=== PATIENT | male | born 1955 | race Caucasian/White ===

== ENCOUNTER 2019-12-16 06:00 | Outpatient (RCR) | payer MEDICARE, OTHER, SELFPAY | END 2019-12-20 23:59 | disposition home or self-care (01) | LOC: MR3 06:00 | PROVIDERS: Family Provider Nurse Practitioner Family; PCP Nurse Practitioner Family; Visit Provider Physical Medicine & Rehabilitation | DX: I69.320 Aphasia following cerebral infarction (principal); I69.391 Dysphagia following cerebral infarction; R13.10 Dysphagia, unspecified; I69.398 Other sequelae of cerebral infarction; R32 Unspecified urinary incontinence; R15.9 Full incontinence of feces; R27.8 Other lack of coordination; R26.89 Other abnormalities of gait and mobility | CPT/HCPCS: 92523; 92610; 97110; 97116; 97161 ==

== ENCOUNTER 2019-12-21 06:00 | Outpatient (RCR) | payer MEDICARE, OTHER, SELFPAY | END 2020-01-18 23:59 | disposition home or self-care (01) | LOC: MR3 06:00 | PROVIDERS: Family Provider Nurse Practitioner Family; PCP Nurse Practitioner Family; Visit Provider Physical Medicine & Rehabilitation | DX: R26.89 Other abnormalities of gait and mobility (principal); I69.320 Aphasia following cerebral infarction | CPT/HCPCS: 92507; 92526; 96105; 97110; 97116; 97166; 97530; 97535 ==

== ENCOUNTER 2019-12-25 06:27 | Emergency (ER) | payer MEDICARE, OTHER, SELFPAY ==
[2019-12-25 06:27] VITALS: BP 128/94; PULSE 76; RESP 18; O2SAT 92; BMI 42.5
[2019-12-25 06:30] VITALS: BP 111/80; PULSE 81; RESP 18; TEMP 36.9; O2SAT 91
--- NOTE | 2019-12-25 06:36 | W.ED.CHESTPA ---
HPI - Chest Pain General: Chief Complaint: Chest Pain Stated Complaint: Chest Pain Time Seen by Provider: 12/25/19 06:36 History of Present Illness: HPI narrative: 64-year-old male comes in complaining of chest pain that began this morning. Patient denies having chest pain prior to this morning. He does have a known history of atrial fibrillation last month in early November he had a stroke and has still has some difficulty with speech. He is not having any chest pain at this time. He is on Coumadin for his atrial fibrillation his has a lab result of an INR of 1.4 within the last day or 2 that advised to give him 10 mg of Coumadin after that he has not had it rechecked since then. He denies any difficulty breathing at this time. His diabetic has history of hypertension hyperlipidemia as well as his atrial fibrillation. Associated symptoms: Deny abdominal pain, dyspnea, fever(s), nausea or vomiting Review of Systems Const: Denies: fever, chills, body aches, change in appetite, fatigue or malaise ENMT: Denies: throat pain, ear pain, nasal discharge or nasal congestion Card: Denies: chest pain, edema, shortness of breath on exertion or shortness of breath when lying down Resp: Denies: shortness of breath, productive cough or non-productive cough GI: Denies: abdominal pain, nausea, vomiting, vomiting blood, coffee grounds in vomit, diarrhea, constipation, bloating, blood in stool or black tarry stool : Denies: flank pain, painful urination, urinary frequency or urinary urgency Skin/Breast: Denies: rash or itching PFSH ED PFSH: Statuses (acute, chronic, etc) shown below reflect problem list status as previously entered and may not be historically accurate Family History (Updated 12/03/19 @ 08:27 by Venita Quinones RN) Mother Stroke Father Myocardial infarction Other CAD (coronary artery disease) Chronic kidney disease (CKD) Diabetes Hypertension Social History (Updated 12/03/19 @ 08:27 by Venita Quinones RN) Smoking and tobacco status: never smoked Alcohol intake: unknown Marital status: Physical Exam Const: COMMON NORMALS: no apparent distress GENERAL APPEARANCE: cooperative and comfortable ORIENTATION/CONSCIOUSNESS: Yes awake, Yes oriented to person, Yes oriented to place and Yes oriented to time HENMT: COMMON NORMALS: normocephalic, head/scalp atraumatic, hearing grossly normal bilaterally, external ears normal, EAC's normal, TM's normal bilaterally, nasal mucous membranes and turbinates normal, moist oral mucous membranes and oropharynx normal HEAD & SCALP: normocephalic and atraumatic NOSE: nasal mucous membranes and turbinates normal EXTERNAL EAR: Yes external ears normal EXTERNAL AUDITORY CANAL: EAC's normal TYMPANIC MEMBRANE: TM's normal bilaterally Eye: COMMON NORMALS: PERRL, EOMs intact bilaterally, conjunctivae normal and no scleral icterus CONJUNCTIVA: Yes conjunctivae normal PUPIL: Yes PERRL Neck/C-Spine: COMMON NORMALS: full ROM, no lymphadenopathy, supple and no JVD Lymph: LYMPHATIC: no lymphadenopathy noted and no lymphedema noted Resp: COMMON NORMALS: normal respiratory effort, no retractions, no use of accessory muscles and clear to auscultation bilaterally AUSCULTATION: clear to auscultation bilaterally Cardio: COMMON NORMALS: no JVD, regular rate, regular rhythm and no murmurs RATE: regular rate RHYTHM: regular rhythm GI: COMMON NORMALS: soft to palpation and no hepatosplenomegaly AUSCULTATION: Yes normoactive bowel sounds PALPATION: Yes soft, No tender, No guarding and Yes no hepatosplenomegaly Extremity: COMMON NORMALS: normal to inspection, normal capillary refill, no clubbing, cyanosis or edema, no calf tenderness and no pedal edema Neuro: SENSORIUM/ORIENTATION: Yes oriented to person, Yes oriented to place and Yes oriented to time Skin: COMMON NORMALS: no rashes or lesions noted GENERAL SKIN EXAM: no rashes or lesions noted Course ED course: Delta troponin is negative. His rhythm has been A. fib free particularly. Bradycardic while he has been here. He states the episode of chest pain only lasted a few minutes resolved after he went to the bathroom has not had any further symptoms. He does this fair amount of risk factors and his heart score is 4-5 I recommend that he be admitted for observation and get a stress test tomorrow. 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 He did have medication adjustments yesterday and his carvedilol was cut down to 6.25 twice daily. I do not recommend he make any changes in his medications at this point however he does need to continue to monitor his Coumadin and should can continue taking all of his other medications if he has worsening chest pain or recurrence return. Offered again observation for chest pain rule out and stress testing both him and the declined and prefer to go to [place]. Vital Signs: Vital signs: Vital Signs Temperature 98.4 F 12/25/19 06:30 Pulse Rate 90 12/25/19 10:17 Respiratory Rate 16 12/25/19 10:17 Blood Pressure 147/103 12/25/19 10:17 Pulse Oximetry 94 12/25/19 10:17 MDM - Chest Pain Lab Data: Labs: Lab Results 12/25/19 12/25/19 12/25/19 Range/Units 06:55 06:55 06:55 WBC 9.5 (4.0-10.0) 10^3/ uL RBC 6.85 H (4.1-5.3) 10^6/u L Hgb 12.1 (11.7-16.6) g/dL Hct 40.7 L (42.0-52.0) % MCV 59.4 L (80-94) fL MCH 17.7 L (28.0-34.0) pg MCHC 29.7 L (30.0-36.0) g/dL RDW 19.5 H (12.1-15.1) % Plt Count 222 (130-400) 10^3/c mm MPV 9.9 (7.4-10.4) fL Neut % (Auto) 77.5 % Lymph % (Auto) 12.3 % [place] % (Auto) 6.8 % Eos % (Auto) 2.1 % Baso % (Auto) 0.7 % Neut # (Auto) 7.4 (1.8-7.7) 10^3/u L Lymph # (Auto) 1.2 (0.8-4.8) 10^3/u L [place]lee # (Auto) 0.7 (0.2-0.9) 10^3/u L Eos # (Auto) 0.2 (0.0-0.8) 10^3/u L Baso # (Auto) 0.1 (0.0-0.1) 10^3/u L Nucleated RBC % (a uto) 0 % Nucleated RBCs # 0.0 /100WBC PT 16.90 H (10.5-13.3) SECO NDS INR 1.33 H (0.8-1.2) APTT 26.4 (23.9-36.7) SECO NDS Sodium 138 (136-145) mmol/L Potassium 4.3 (3.5-5.1) mmol/L Chloride 104 (98-107) mmol/L Carbon Dioxide 24 (22-29) mmol/L Anion Gap 14.3 (5-19) BUN 33 H (8-23) mg/dL Creatinine 0.9 (0.7-1.2) mg/dL GFR Calculation 84.4 L (90-130) mL/min Glucose 139 H (65-115) mg/dL Calcium 9.9 (8.5-10.5) mg/dL Total Bilirubin 0.4 (0.15-1.2) mg/dL AST 20 (0-40) U/L ALT 23 (0-41) U/L Alkaline Phosphata se 70 (40-130) IU/L Troponin T Baselin e (0-15) ng/mL Troponin T 120 Min [place] (0-15) ng/mL Delta Troponin T (0-10) ABS# Total Protein 6.2 L (6.6-8.7) g/dL Albumin 3.4 L (3.5-5.2) g/dL Globulin 2.8 (1.3-4.6) g/dL 12/25/19 12/25/19 Range/Units 06:55 08:44 WBC (4.0-10.0) 10^3/ uL RBC (4.1-5.3) 10^6/u L Hgb (11.7-16.6) g/dL Hct (42.0-52.0) % MCV (80-94) fL MCH (28.0-34.0) pg MCHC (30.0-36.0) g/dL RDW (12.1-15.1) % Plt Count (130-400) 10^3/c mm MPV (7.4-10.4) fL Neut % (Auto) % Lymph % (Auto) % [place] % (Auto) % Eos % (Auto) % Baso % (Auto) % Neut # (Auto) (1.8-7.7) 10^3/u L Lymph # (Auto) (0.8-4.8) 10^3/u L [place] # (Auto) (0.2-0.9) 10^3/u L Eos # (Auto) (0.0-0.8) 10^3/u L Baso # (Auto) (0.0-0.1) 10^3/u L Nucleated RBC % (a uto) % Nucleated RBCs # /100WBC PT (10.5-13.3) SECO NDS INR (0.8-1.2) APTT (23.9-36.7) SECO NDS Sodium (136-145) mmol/L Potassium (3.5-5.1) mmol/L Chloride (98-107) mmol/L Carbon Dioxide (22-29) mmol/L Anion Gap (5-19) BUN (8-23) mg/dL Creatinine (0.7-1.2) mg/dL GFR Calculation (90-130) mL/min Glucose (65-115) mg/dL Calcium (8.5-10.5) mg/dL Total Bilirubin (0.15-1.2) mg/dL AST (0-40) U/L ALT (0-41) U/L Alkaline Phosphata se (40-130) IU/L Troponin T Baselin e 25 H (0-15) ng/mL Troponin T 120 Min [place] 22.36 H (0-15) ng/mL Delta Troponin T -2.64 L (0-10) ABS# Total Protein (6.6-8.7) g/dL Albumin (3.5-5.2) g/dL Globulin (1.3-4.6) g/dL Discharge Plan Discharge Patient Disposition: Home, Self-Care Clinical Impression: Atypical chest pain, Atrial fibrillation, Diabetes mellitus, Congestive heart failure Condition: Stable Prescriptions: No Action tamsulosin 0.4 mg capsule 0.4 mg PO DAILY RF: 0 citalopram [Celexa] 10 mg tablet 10 mg PO DAILY RF: 0 leflunomide 20 mg tablet 20 mg PO DAILY RF: 0 furosemide 40 mg tablet 40 mg PO QAM RF: 0 Lantus U-100 Insulin 100 unit/mL solution See Rx Instructions .ROUTE .COMPLEX RF: 0 insulin lispro [Humalog U-100 Insulin] 100 unit/mL solution See Rx Instructions .ROUTE .COMPLEX RF: 0 nitroglycerin [Nitrostat] 0.4 mg tablet, sublingual 0.4 mg SUBLINGUAL Q5M PRN (Reason: Chest Pain) RF: 0 carvedilol 12.5 mg Tablet 12.5 mg PO BID RF: 0 ondansetron HCl [Zofran] 4 mg Tablet 4 mg PO Q6H PRN (Reason: Nausea) RF: 0 prednisone 20 mg Tablet 10 mg PO DAILY RF: 0 diltiazem HCl 240 mg Capsule,Extended Release 24 Hr 240 mg PO DAILY RF: 0 amoxicillin 500 mg Tablet 500 mg PO BID RF: 0 warfarin 5 mg Tablet See Rx Instructions .ROUTE .COMPLEX RF: 0 cholecalciferol (vitamin D3) [Vitamin D3] 25 mcg (1,000 unit) Capsule 1,000 unit PO DAILY RF: 0 Florastor 250 mg Capsule 500 mg PO BID RF: 0 potassium chloride 20 mEq Tablet Extended Release 40 meq PO DAILY RF: 0 coenzyme Q10 125 mg Capsule 120 mg PO DAILY RF: 0 atorvastatin 40 mg PO QPM RF: 0 Ultram 50 mg Tablet 50 mg PO Q4H PRN (Reason: Pain) RF: 0 Protonix 40 mg Tablet,Delayed Release (Dr/Ec) 40 mg PO DAILY RF: 0 Super B-50 Complex Capsule 1 cap PO DAILY RF: 0 Referrals: Faustina Gonzalez TRUSS DRIVER HELPER [Primary Care Provider] - Discharge Diet: Usual diet Discharge Activity: Limit activity as instructed Activity Restrictions/Additional Instructions: Follow-up with your lumber press operator as you indicated you have an appointment tomorrow. 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
--- NOTE | 2019-12-25 06:40 | ECG_ITS ---
Measurements Intervals Man Rate: 85 P: MS: 0 QRS: -22 QRSD: 103 T: 168 QT: 380 QTc: 453 ATRIAL FIBRILLATION BORDERLINE LEFT AXIS DEVIATION [QRS AXIS < -20] VOLTAGE CRITERIA FOR LVH [MEETS CRITERIA IN ONE OF: R(aVL), S(V1), R(V5), R(V5 (V5/V6)+S(V1)] ST DEVIATION AND MODERATE T-WAVE ABNORMALITY, CONSIDER LATERAL ISCHEMIA [-0.1+ mV mV T WAVE IN I/aVL/V5/V6] Compared to ECG 09/05/2019 08:37:38 Left ventricular hypertrophy now present Possible ischemia now present T-wave abnormality still present Electronically Signed On 12-25-2019 9:29:24 CHROME TANNING DRUM OPERATOR by Dirk Mondragon M.D. [id number] rizzo
--- NOTE | 2019-12-25 06:45 | PC.NURSE ---
Introduced self to patient and initiated vital signs. Pt is A&O x 4 and agreeable. Pt states that the reason for the ER visit today is due to chest pain which is now resolved. Pt has history of recent stroke and now responds slowly to questions. Reassured patient of needs and will continue to monitor.
[2019-12-25 07:11] LABS: Basophils # 0.1 10^3/uL (0.0-0.1); Basophils % 0.7 %; Eosinophils # 0.2 10^3/uL (0.0-0.8); Eosinophils % 2.1 %; Hematocrit 40.7 % (42.0-52.0); Hemoglobin 12.1 g/dL (11.7-16.6); Lymphocytes # 1.2 10^3/uL (0.8-4.8); Lymphocytes % 12.3 %; Mean Corpuscular HGB Conc 29.7 g/dL (30.0-36.0); Mean Corpuscular Hemoglobin 17.7 pg (28.0-34.0); Mean Corpuscular Volume 59.4 fL (80-94); Mean Platelet Volume 9.9 fL (7.4-10.4); Monocytes # 0.7 10^3/uL (0.2-0.9); Monocytes % 6.8 %; Neutrophils # 7.4 10^3/uL (1.8-7.7); Neutrophils % 77.5 %; Nucleated Red Blood Cells % 0 %; Platelet Count 222 10^3/cmm (130-400); Positive M 1; Red Blood Count 6.85 10^6/uL (4.1-5.3); Red Cell Distribution Width 19.5 % (12.1-15.1); White Blood Count 9.5 10^3/uL (4.0-10.0)
[2019-12-25 07:21] LABS: INR 1.33 (0.8-1.2)
[2019-12-25 07:22] LABS: Partial Thromboplastin Time 26.4 SECONDS (23.9-36.7)
[2019-12-25 07:26] LABS: Alanine Aminotransferase 23 U/L (0-41); Albumin Level 3.4 g/dL (3.5-5.2); Alkaline Phosphatase 70 IU/L (40-130); Anion Gap 14.3 (5-19); Aspartate Amino Transferase 20 U/L (0-40); Blood Urea Nitrogen 33 mg/dL (8-23); Calcium 9.9 mg/dL (8.5-10.5); Carbon Dioxide 24 mmol/L (22-29); Chloride 104 mmol/L (98-107); Globulin 2.8 g/dL (1.3-4.6); Glomerular Filtration Rate 84.4 mL/min (90-130); Potassium 4.3 mmol/L (3.5-5.1); Sodium 138 mmol/L (136-145); Total Bilirubin 0.4 mg/dL (0.15-1.2); Total Protein 6.2 g/dL (6.6-8.7)
[2019-12-25 07:27] LABS: Troponin(5th) Baseline 25 ng/mL (0-15)
[2019-12-25 07:35] LABS: Slide Review Slide Review Perform
[2019-12-25 07:45] VITALS: BP 121/49; PULSE 75; RESP 16; O2SAT 92
[2019-12-25 08:01] VITALS: BP 127/58; PULSE 79; RESP 16; O2SAT 93
--- NOTE | 2019-12-25 08:40 | ECG_ITS ---
Measurements Intervals [place] Rate: 70 P: NE: 0 QRS: -24 QRSD: 101 T: 180 QT: 382 QTc: 413 ATRIAL FIBRILLATION BORDERLINE LEFT AXIS DEVIATION [QRS AXIS < -20] MINIMAL VOLTAGE CRITERIA FOR LVH, CONSIDER NORMAL VARIANT [MEETS CRITERIA IN ONE OF: R(aVL), S(V1), R(V5), R(V5/V6)+S(V1)] ST DEVIATION AND MODERATE T-WAVE ABNORMALITY, CONSIDER LATERAL ISCHEMIA [-0.1+ mV T WAVE IN I/aVL/V5/V6] Compared to ECG 09/05/2019 08:37:38 Possible ischemia now present T-wave abnormality still present Electronically Signed On 12-25-2019 9:32:31 PATHOLOGY SECRETARY/TRANSCRIPTIONIST by Dirk Mondragon M.D. [id number]
[2019-12-25 09:16] LABS: Troponin 5 2HR 22.36 ng/mL (0-15)
[2019-12-25 09:19] LABS: Glucose 139 mg/dL (65-115)
[2019-12-25 09:19] LABS: Troponin 5 2HR Delta -2.64 ABS# (0-10)
[2019-12-25 10:17] VITALS: BP 147/103; PULSE 90; RESP 16; O2SAT 94
== END 2019-12-25 10:17 | disposition home or self-care (01) ==
PROVIDERS: Emergency Provider Family Medicine; Family Provider Nurse Practitioner Family; PCP Nurse Practitioner Family
DX: R07.89 Other chest pain (principal); I48.91 Unspecified atrial fibrillation; E11.9 Type 2 diabetes mellitus without complications; I11.0 Hypertensive heart disease with heart failure; I50.9 Heart failure, unspecified; E78.5 Hyperlipidemia, unspecified; I69.328 Other speech and language deficits following cerebral infarction; Z79.01 Long term (current) use of anticoagulants; Z79.4 Long term (current) use of insulin; Z82.3 Family history of stroke; Z82.49 Family history of ischemic heart disease and other diseases of the circulatory system
CPT/HCPCS: 36415; 80053; 84484; 85025; 85610; 85730; 93005; 99283

== ENCOUNTER 2020-01-06 21:57 | Emergency (ER) | payer MEDICARE, OTHER, SELFPAY ==
[2020-01-06 22:01] VITALS: BP 126/82; PULSE 76; RESP 17; TEMP 36.4; O2SAT 93; BMI 28.8
--- NOTE | 2020-01-06 22:25 | ED_ITS ---
Entered by Nikki May, acting as scribe for Caryn Nelson MD, [facility] [place] 06, [place] 21:57 Documented by User: Caryn Nelson MD, MSM 01/07/20 00:23 HPI - Dizziness General: Chief Complaint: Dizziness Stated Complaint: DIZZY/ N/V Time Seen by Provider: 01/06/20 22:25 Source: patient and RN notes reviewed Mode of arrival: EMS Limitations: no limitations History of Present Illness: HPI Narrative: 64 yo male presents to ED with complaints of dizziness. The patient spouse states he had a stroke December 13 and became very dizzy tonight. She said he hasn't felt well for last couple of days and shows the patient has an infection. He had a spell the other night but became bad tonight . He had a PCP appointment today for a follow up to his stroke. He did have speech and occupational therapies today. The patient spouse states he has not complained of a headache. The spouse states she has been dizzy for a couple of days as well and said they have both had sinus issues. MD elicited complaint: dizziness and difficulty walking (due to recent stroke) Pertinent past history: stroke Onset (ago): hour(s) (3 (1929)) Timing: sudden onset Severity: severe Description: room spinning Context: change in medication (recent antibiotics), change in body position, recent illness and at rest History of similar symptoms: Yes Exacerbating factors: movement/ambulation, change in body position, exertion and keeping eyes open Relieving factors: remaining still, rest and lying down Associated symptoms: Reports chest pain; Denies chills, headache(s), nausea, palpitations or vomiting Associated neuro symptoms: Deny numbness in extremities Review of Systems General: Reports: 10 or more systems reviewed and unremarkable except in HPI and below Const: Denies: fever, chills or body aches Eyes: Reports: blind spots; Denies: change in vision or blurry vision ENMT: Denies: throat pain, enlarged tonsils, painful swallowing, hoarseness, mouth pain or swelling of lips/tongue Card: Reports: chest pain; Denies: palpitations, irregular heart rhythm, edema or swelling of feet/ankles Resp: Denies: shortness of breath, productive cough or non-productive cough GI: Denies: abdominal pain, nausea or vomiting : Denies: flank pain, painful urination, urinary frequency, urinary urgency or urinary hesitancy Musc: Denies: neck pain, back pain or extremity swelling Skin/Breast: Denies: rash, itching or redness Neuro: Reports: dizziness; Denies: headache, numbness in extremities or weakness in extremities Endo: Denies: excessive urination, excessive thirst or tired all the time PFSH ED PFSH: Family History (Updated 12/03/19 @ 08:27 by Venita Quinones, ANTWON) Mother Stroke Father Myocardial infarction Other CAD (coronary artery disease) Chronic kidney disease (CKD) Diabetes Hypertension Social History (Updated 12/03/19 @ 08:27 by Venita Quinones RN) Smoking and tobacco status: never smoked Alcohol intake: unknown Marital status: Physical Exam Const: COMMON NORMALS: no apparent distress, average body habitus, oriented x3, no limitations, healthy appearing, alert and well nourished HENMT: COMMON NORMALS: normocephalic, head/scalp atraumatic and moist oral mucous membranes HEAD & SCALP: normocephalic and atraumatic Eye: COMMON NORMALS: PERRL, EOMs intact bilaterally, conjunctivae normal and no scleral icterus CONJUNCTIVA: Yes conjunctivae normal PUPIL: Yes PERRL Neck/C-Spine: COMMON NORMALS: full ROM, supple, no meningeal signs, no JVD and no carotid bruits Chest: COMMONS NORMALS: inspection of chest normal and palpation of chest normal Resp: COMMON NORMALS: normal respiratory effort, no retractions, no use of accessory muscles, clear to auscultation bilaterally and percussion normal AU SCULTATION: clear to auscultation bilaterally PERCUSSION: percussion normal Cardio: COMMON NORMALS: no JVD, regular rate, regular rhythm, S1 normal heart sound, S2 normal heart sound, no gallops, no clicks, no murmurs, no rub and peripheral pulses 2+ throughout RATE: regular rate RHYTHM: regular rhythm HEART SOUNDS: S1 normal and S2 normal PERIPHERAL PULSES: pulses 2+ throughout GI: COMMON NORMALS: normal to inspection, nondistended, normoactive bowel sounds, soft to palpation, non-tender, no hepatosplenomegaly, no masses and no bruits PALPATION: Yes soft and Yes no hepatosplenomegaly : COMMON NORMALS: Yes no CVA tenderness BLADDER/KIDNEY EXAM: Yes no CVA tenderness Back/Pelvis: COMMON NORMALS: no CVA tenderness Extremity: COMMON NORMALS: normal to inspection, full ROM, normal capillary refill, no calf tenderness and no pedal edema Neuro: COMMON NORMALS: oriented x3 SENSORIUM/ORIENTATION: Yes alert MENINGEAL SIGNS: Yes no meningeal signs Skin: COMMON NORMALS: no rashes or lesions noted, no wounds, skin turgor normal, no jaundice, no petechiae and no mottling GENERAL SKIN EXAM: no rashes or lesions noted and turgor normal Course Vital Signs: Vital signs: Vital Signs Temperature 97.5 F L 01/06/20 22:01 Pulse Rate 56 L 01/07/20 02:09 Respiratory Rate 16 01/07/20 02:09 Blood Pressure 126/82 01/06/20 22:01 Pulse Oximetry 99 01/07/20 02:09 MDM - Dizziness Lab Data: Labs: Lab Results 01/06/20 01/06/20 01/06/20 Range/Units 23:26 23:26 23:49 WBC 10.4 H (4.0-10.0) 10^3/ uL RBC 6.98 H (4.1-5.3) 10^6/u L Hgb 12.2 (11.7-16.6) g/dL Hct 41.5 L (42.0-52.0) % MCV 59.5 L (80-94) fL MCH 17.5 L (28.0-34.0) pg MCHC 29.4 L (30.0-36.0) g/dL RDW 20.0 H (12.1-15.1) % Plt Count 272 (130-400) 10^3/c mm MPV 9.3 (7.4-10.4) fL Neut % (Auto) 77.3 % Lymph % (Auto) 11.7 % [place] % (Auto) 7.4 % Eos % (Auto) 1.3 % Baso % (Auto) 0.7 % Neut # (Auto) 8.0 H (1.8-7.7) 10^3/u L Lymph # (Auto) 1.2 (0.8-4.8) 10^3/u L [place] # (Auto) 0.8 (0.2-0.9) 10^3/u L Eos # (Auto) 0.1 (0.0-0.8) 10^3/u L Baso # (Auto) 0.1 (0.0-0.1) 10^3/u L Nucleated RBC % (a uto) 0 % Nucleated RBCs # 0.0 /100WBC Sodium Potassium Chloride Carbon Dioxide Anion Gap BUN Creatinine GFR Calculation Glucose Calcium Total Bilirubin AST ALT Alkaline Phosphata se Total Protein Albumin Globulin Urine Color Yellow (Yellow) Urine Appearance Hazy A (CLEAR) Urine pH 5 (5-7) Ur Specific Gravit y 1.020 (1.005-1.030) Urine Protein Neg (Negative) Urine Glucose (UA) Norm (Normal) Urine Ketones Negative (Negative) Urine Occult Blood Neg (Negative) Urine Nitrate Negative (Negative) Urine Bilirubin Neg (NEGATIVE) Urine Urobilinogen Norm (Negative) mg/dL Ur Leukocyte Michelle ase Trace H (Negative) Urine RBC 0-4 H (0-2) /hpf Urine WBC 15-25 H (0-5) /hpf Ur Squamous Epith Cells 0-4 H (0-5) Urine Bacteria 4+ H (NONE) Urine Opiates Scre en Negative (Negative) ng/mL Ur Barbiturates Sc reen Negative (Negative) ng/mL Ur Phencyclidine S crn Negative (Negative) ng/mL Ur Amphetamines Sc reen Negative (Negative) ng/mL U Benzodiazepines Scrn Negative (Negative) ng/mL Urine Cocaine Scre en Negative (Negative) ng/mL U Marijuana (THC) Screen Negative (Negative) ng/mL 01/07/ Range/Units 01:33 WBC (4.0-10.0) 10^3/ uL RBC (4.1-5.3) 10^6/u L Hgb (11.7-16.6) g/dL Hct (42.0-52.0) % MCV (80-94) fL MCH (28.0-34.0) pg MCHC (30.0-36.0) g/dL RDW (12.1-15.1) % Plt Count (130-400) 10^3/c mm MPV (7.4-10.4) fL Neut % (Auto) % Lymph % (Auto) % [place] % (Auto) % Eos % (Auto) % Baso % (Auto) % Neut # (Auto) (1.8-7.7) 10^3/u L Lymph # (Auto) (0.8-4.8) 10^3/u L [place] # (Auto) (0.2-0.9) 10^3/u L Eos # (Auto) (0.0-0.8) 10^3/u L Baso # (Auto) (0.0-0.1) 10^3/u L Nucleated RBC % (a uto) % Nucleated RBCs # /100WBC Sodium Cancelled Potassium Cancelled Chloride Cancelled Carbon Dioxide Cancelled Anion Gap Cancelled BUN Cancelled Creatinine Cancelled GFR Calculation Cancelled Glucose Cancelled Calcium Cancelled Total Bilirubin Cancelled AST Cancelled ALT Cancelled Alkaline Phosphata se Cancelled Total Protein Cancelled Albumin Cancelled Globulin Cancelled Urine Color (Yellow) Urine Appearance (CLEAR) Urine pH (5-7) Ur Specific Gravit y (1.005-1.030) Urine Protein (Negative) Urine Glucose (UA) (Normal) Urine Ketones (Negative) Urine Occult Blood (Negative) Urine Nitrate (Negative) Urine Bilirubin (NEGATIVE) Urine Urobilinogen (Negative) mg/dL Ur Leukocyte Michelle ase (Negative) Urine RBC (0-2) /hpf Urine WBC (0-5) /hpf Ur Squamous Epith Cells (0-5) Urine Bacteria (NONE) Urine Opiates Scre en (Negative) ng/mL Ur Barbiturates Sc reen (Negative) ng/mL Ur Phencyclidine S crn (Negative) ng/mL Ur Amphetamines Sc reen (Negative) ng/mL U Benzodiazepines Scrn (Negative) ng/mL Urine Cocaine Scre en (Negative) ng/mL U Marijuana (THC) Screen (Negative) ng/mL EKG Data^: EKG 1: Attestation: I personally reviewed and interpreted this EKG as follows: EKG interpretation date: 01/06/20 EKG interpretation time: 23:05 Interpretation: Atrial fibrillation. Left ventricular hypertrophy. Heart rate 77. Discharge Plan Discharge Patient Disposition: Left Against Medical Advice Clinical Impression: Acute UTI Condition: Stable Prescriptions: New Zofran 4 mg tablet 4 mg PO DAILY PRN (Reason: nausea and vomiting) 5 Days RF: 0 No Action tamsulosin 0.4 mg capsule 0.4 mg PO DAILY RF: 0 citalopram [Celexa] 10 mg tablet 10 mg PO DAILY RF: 0 leflunomide 20 mg tablet 20 mg PO DAILY RF: 0 furosemide 40 mg tablet 40 mg PO QAM RF: 0 Lantus U-100 Insulin 100 unit/mL solution See Rx Instructions .ROUTE .COMPLEX RF: 0 insulin lispro [Humalog U-100 Insulin] 100 unit/mL solution See Rx Instructions .ROUTE .COMPLEX RF: 0 nitroglycerin [Nitrostat] 0.4 mg tablet, sublingual 0.4 mg SUBLINGUAL Q5M PRN (Reason: Chest Pain) RF: 0 carvedilol 12.5 mg Tablet 12.5 mg PO BID RF: 0 ondansetron HCl [Zofran] 4 mg Tablet 4 mg PO Q6H PRN (Reason: Nausea) RF: 0 prednisone 20 mg Tablet 10 mg PO DAILY RF: 0 diltiazem HCl 240 mg Capsule,Extended Release 24 Hr 240 mg PO DAILY RF: 0 amoxicillin 500 mg Tablet 500 mg PO BID RF: 0 warfarin 5 mg Tablet See Rx Instructions .ROUTE .COMPLEX RF: 0 cholecalciferol (vitamin D3) [Vitamin D3] 25 mcg (1,000 unit) Capsule 1,000 unit PO DAILY RF: 0 Florastor 250 mg Capsule 500 mg PO BID RF: 0 potassium chloride 20 mEq Tablet Extended Release 40 meq PO DAILY RF: 0 coenzyme Q10 125 mg Capsule 120 mg PO DAILY RF: 0 atorvastatin 40 mg PO QPM RF: 0 tramadol [Ultram] 50 mg Tablet 50 mg PO Q4H PRN (Reason: Pain) RF: 0 pantoprazole [Protonix] 40 mg Tablet,Delayed Release (Dr/Ec) 40 mg PO DAILY RF: 0 vitamin B complex [Super B-50 Complex] Capsule 1 cap PO DAILY RF: 0 Discharge Orders: Discharge Order (Routine); Ordered 01/07/20 Ordered By: Lorrie Cabral Referrals: Faustina Gonzalez NP [Primary Care Provider] - 1-3 days Discharge Diet: Advance as tolerated Discharge Activity: Increase activity as tolerated Patient Instructions: Dehydration (ED), Urinary Tract Infection in Men (ED) Activity Restrictions/Additional Instructions: You're leaving AGAINST MEDICAL ADVICE and are at risk for or severe permanent disability by doing so. You are more than welcome to return at any time for recheck and for further evaluation and care suture change you change your mind. I am sorry that we have not been able to draw your labs appropriately. If you change your mind and want further evaluation and care you are more than welcome to return at any time. Increase your oral fluid intake at home as much as possible for the next 2 days. If for any reason you change your mind or your symptoms change or worsen please return to the ER immediately for recheck. Continue your Macrobid as previously prescribed. Hold your Lasix for 1 day. Discharge Date/Time: 01/07/20 03:56 Sign Out Sign Out Data: Patient Sign Out occurred on 01/07/20 at 00:57. Patient's care was discussed, and care was transferred from to Lorrie Cabral. Coding Level of Care Code ED Road Inspector for Chg Fwd Exam Comprehensive Documented by User: Lorrie Cabral 01/07/20 03:57 HPI - Dizziness General: Chief Complaint: Dizziness Stated Complaint: DIZZY/ N/V Time Seen by Provider: 01/06/20 22:25 [facility] PFSH: Family History (Updated 12/03/19 @ 08:27 by Venita Quinones RN) Mother Stroke Father Myocardial infarction Other CAD (coronary artery disease) Chronic kidney disease (CKD) Diabetes Hypertension Social History (Updated 12/03/19 @ 08:27 by Venita Quinones RN) Smoking and tobacco status: never smoked Alcohol intake: unknown Marital status: Course Vital Signs: Vital signs: Vital Signs Temperature 97.5 F L 01/06/20 22:01 Pulse Rate 56 L 01/07/20 02:09 Respiratory Rate 16 01/07/20 02:09 Blood Pressure 126/82 01/06/20 22:01 Pulse Oximetry 99 01/07/20 02:09 MDM - Dizziness MDM Narrative: Medical decision making narrative: Ry is a nice 64-year-old male who comes in with a concern of dehydration. I assumed care from Dr. Nelson at change of shift, please see his note for details. The patient and his are very angry at this time as they have been stuck multiple times for blood and lab continues to have problems getting an adequate specimen. I have recommended and offered a femoral stick after numbing medication but the patient refuses. The patient is tired and he wants to go home. The patient's states that she has to push him up a large ramp at home and needs to get there while she still has help with. They understand that I cannot be certain his kidney function is good but despite this they want to be discharged. They have asked what they can do at home to treat this and I have advised them that he needs to increase his oral fluids including water, Gatorade or Powerade. They will do this and agree to return only if he worsens but he is feeling better and he has been able to urinate twice decent sized amounts of urine while here in the ER. Lab Data: Attestation: I reviewed the patient's lab results. Labs: Lab Results 01/06/20 01/06/20 01/06/20 Range/Units 23:26 23:26 23:49 WBC 10.4 H (4.0-10.0) 10^3/ uL RBC 6.98 H (4.1-5.3) 10^6/u L Hgb 12.2 (11.7-16.6) g/dL Hct 41.5 L (42.0-52.0) % MCV 59.5 L (80-94) fL MCH 17.5 L (28.0-34.0) pg MCHC 29.4 L (30.0-36.0) g/dL RDW 20.0 H (12.1-15.1) % Plt Count 272 (130-400) 10^3/c mm MPV 9.3 (7.4-10.4) fL Neut % (Auto) 77.3 % Lymph % (Auto) 11.7 % [place] % (Auto) 7.4 % Eos % (Auto) 1.3 % Baso % (Auto) 0.7 % Neut # (Auto) 8.0 H (1.8-7.7) 10^3/u L Lymph # (Auto) 1.2 (0.8-4.8) 10^3/u L [place] # (Auto) 0.8 (0.2-0.9) 10^3/u L Eos # (Auto) 0.1 (0.0-0.8) 10^3/u L Baso # (Auto) 0.1 (0.0-0.1) 10^3/u L Nucleated RBC % (a uto) 0 % Nucleated RBCs # 0.0 /100WBC Sodium Potassium Chloride Carbon Dioxide Anion Gap BUN Creatinine GFR Calculation Glucose Calcium Total Bilirubin AST ALT Alkaline Phosphata se Total Protein Albumin Globulin Urine Color Yellow (Yellow) Urine Appearance Hazy A (CLEAR) Urine pH 5 (5-7) Ur Specific Gravit y 1.020 (1.005-1.030) Urine Protein Neg (Negative) Urine Glucose (UA) Norm (Normal) Urine Ketones Negative (Negative) Urine Occult Blood Neg (Negative) Urine Nitrate Negative (Negative) Urine Bilirubin Neg (NEGATIVE) Urine Urobilinogen Norm (Negative) mg/dL Ur Leukocyte Michelle ase Trace H (Negative) Urine RBC 0-4 H (0-2) /hpf Urine WBC 15-25 H (0-5) /hpf Ur Squamous Epith Cells 0-4 H (0-5) Urine Bacteria 4+ H (NONE) Urine Opiates Scre en Negative (Negative) ng/mL Ur Barbiturates Sc reen Negative (Negative) ng/mL Ur Phencyclidine S crn Negative (Negative) ng/mL Ur Amphetamines Sc reen Negative (Negative) ng/mL U Benzodiazepines Scrn Negative (Negative) ng/mL Urine Cocaine Scre en Negative (Negative) ng/mL U Marijuana (THC) Screen Negative (Negative) ng/mL 01/07/20 Range/Units 01:33 WBC (4.0-10.0) 10^3/ uL RBC (4.1-5.3) 10^6/u L Hgb (11.7-16.6) g/dL Hct (42.0-52.0) % MCV (80-94) fL MCH (28.0-34.0) pg MCHC (30.0-36.0) g/dL RDW (12.1-15.1) % Plt Count (130-400) 10^3/c mm MPV (7.4-10.4) fL Neut % (Auto) % Lymph % (Auto) % [place] % (Auto) % Eos % (Auto) % Baso % (Auto) % Neut # (Auto) (1.8-7.7) 10^3/u L Lymph # (Auto) (0.8-4.8) 10^3/u L [place] # (Auto) (0.2-0.9) 10^3/u L Eos # (Auto) (0.0-0.8) 10^3/u L Baso # (Auto) (0.0-0.1) 10^3/u L Nucleated RBC % (a uto) % Nucleated RBCs # /100WBC Sodium Cancelled Potassium Cancelled Chloride Cancelled Carbon Dioxide Cancelled Anion Gap Cancelled BUN Cancelled Creatinine Cancelled GFR Calculation Cancelled Glucose Cancelled Calcium Cancelled Total Bilirubin Cancelled AST Cancelled ALT Cancelled Alkaline Phosphata se Cancelled Total Protein Cancelled Albumin Cancelled Globulin Cancelled Urine Color (Yellow) Urine Appearance (CLEAR) Urine pH (5-7) Ur Specific Gravit y (1.005-1.030) Urine Protein (Negative) Urine Glucose (UA) (Normal) Urine Ketones (Negative) Urine Occult Blood (Negative) Urine Nitrate (Negative) Urine Bilirubin (NEGATIVE) Urine Urobilinogen (Negative) mg/dL Ur Leukocyte Michelle ase (Negative) Urine RBC (0-2) /hpf Urine WBC (0-5) /hpf Ur Squamous Epith Cells (0-5) Urine Bacteria (NONE) Urine Opiates Scre en (Negative) ng/mL Ur Barbiturates Sc reen (Negative) ng/mL Ur Phencyclidine S crn (Negative) ng/mL Ur Amphetamines Sc reen (Negative) ng/mL U Benzodiazepines Scrn (Negative) ng/mL Urine Cocaine Scre en (Negative) ng/mL U Marijuana (THC) Screen (Negative) ng/mL Discharge Plan Discharge Patient Disposition: Left Against Medical Advice Clinical Impression: Acute UTI Condition: Stable Prescriptions: New Zofran 4 mg tablet 4 mg PO DAILY PRN (Reason: nausea and vomiting) 5 Days RF: 0 No Action tamsulosin 0.4 mg capsule 0.4 mg PO DAILY RF: 0 citalopram [Celexa] 10 mg tablet 10 mg PO DAILY RF: 0 leflunomide 20 mg tablet 20 mg PO DAILY RF: 0 furosemide 40 mg tablet 40 mg PO QAM RF: 0 Lantus U-100 Insulin 100 unit/mL solution See Rx Instructions .ROUTE .COMPLEX RF: 0 insulin lispro [Humalog U-100 Insulin] 100 unit/mL solution See Rx Instructions .ROUTE .COMPLEX RF: 0 nitroglycerin [Nitrostat] 0.4 mg tablet, sublingual 0.4 mg SUBLINGUAL Q5M PRN (Reason: Chest Pain) RF: 0 carvedilol 12.5 mg Tablet 12.5 mg PO BID RF: 0 ondansetron HCl [Zofran] 4 mg Tablet 4 mg PO Q6H PRN (Reason: Nausea) RF: 0 prednisone 20 mg Tablet 10 mg PO DAILY RF: 0 diltiazem HCl 240 mg Capsule,Extended Release 24 Hr 240 mg PO DAILY RF: 0 amoxicillin 500 mg Tablet 500 mg PO BID RF: 0 warfarin 5 mg Tablet See Rx Instructions .ROUTE .COMPLEX RF: 0 cholecalciferol (vitamin D3) [Vitamin D3] 25 mcg (1,000 unit) Capsule 1,000 unit PO DAILY RF: 0 Florastor 250 mg Capsule 500 mg PO BID RF: 0 potassium chloride 20 mEq Tablet Extended Release 40 meq PO DAILY RF: 0 coenzyme Q10 125 mg Capsule 120 mg PO DAILY RF: 0 atorvastatin 40 mg PO QPM RF: 0 tramadol [Ultram] 50 mg Tablet 50 mg PO Q4H PRN (Reason: Pain) RF: 0 pantoprazole [Protonix] 40 mg Tablet,Delayed Release (Dr/Ec) 40 mg PO DAILY RF: 0 vitamin B complex [Super B-50 Complex] Capsule 1 cap PO DAILY RF: 0 Discharge Orders: Discharge Order (Routine); Ordered 01/07/20 Ordered By: Lorrie Cabral Referrals: Faustina Gonzalez NP [Primary Care Provider] - 1-3 days Discharge Diet: Advance as tolerated Discharge Activity: Increase activity as tolerated Patient Instructions: Dehydration (ED), Urinary Tract Infection in Men (ED) Activity Restrictions/Additional Instructions: You're leaving AGAINST MEDICAL ADVICE and are at risk for or severe permanent disability by doing so. You are more than welcome to return at any time for recheck and for further evaluation and care suture change you change your mind. I am sorry that we have not been able to draw your labs appr opriately. If you change your mind and want further evaluation and care you are more than welcome to return at any time. Increase your oral fluid intake at home as much as possible for the next 2 days. If for any reason you change your mind or your symptoms change or worsen please return to the ER immediately for recheck. Continue your Macrobid as previously prescribed. Hold your Lasix for 1 day. Discharge Date/Time: 01/07/20 03:56 Sign Out Sign Out Data: Patient Sign Out occurred on 01/07/20 at 00:57. Patient's care was discussed, and care was transferred from to [facility]. Coding Level of Care Code ED Road Inspector for Chg Fwd Exam Comprehensive The documentation recorded by the Lalo blackburn Valerie R, accurately reflects the service I personally performed and the decisions made by , Caryn Nelson MD, [facility] [place] Jan 06, 2020 21:57
--- NOTE | 2020-01-06 22:48 | CTR_ITS ---
PROCEDURE INFORMATION: Exam: CT Head Without Contrast Exam date and time: 01/06/2020 10:54 PM Age: 64 years old Clinical indication: Dizziness TECHNIQUE: Imaging protocol: Computed tomography of the head without contrast. Total DLP: 859.48 mGy-cm Radiation optimization: All CT scans at this facility use at least one of these dose optimization techniques: automated exposure control; mA and/or kV adjustment per patient size (includes targeted exams where dose is matched to clinical indication); or iterative reconstruction. COMPARISON: CT head wo con* [id number] 09/03/2019 11:38 PM FINDINGS: Brain: No acute intracranial hemorrhage or mass effect. There is decreased attenuation in the periventricular white matter, likely from microvascular disease. Old infarcts in the periventricular white matter bilaterally, similar to the prior exam. Old infarct in the inferior left frontal lobe, unchanged. Old infarct involving the posterior right cerebellar hemisphere. This appears more prominent/larger than on the prior exam, but does not appear acute. Small old infarct in the posterior left cerebellum, unchanged. No definite acute infarct by CT. MRI could be more sensitive/specific for detection, and also for distinguishing between old and subacute infarcts, as clinically directed. Ventricles: Ventricle size is normal for age. Bones/joints: No definite acute skull fracture. Sinuses: Mild mucosal thickening in the ethmoid sinuses. Included paranasal sinuses otherwise appear essentially clear. Mastoid air cells: No significant acute finding. Vasculature: Vascular calcifications in the internal carotid and vertebral basilar systems. CT/CT head wo con* [id number] IMPRESSION: 1. No acute intracranial hemorrhage or mass effect. 2. Changes of microvascular disease, and old infarcts, see above details. 3. No definite acute infarct by CT, see above. 4. Other findings discussed above. Radiation Dose CTDIVOL = (mGy): DLP = 859.48 (mGy-cm)
--- NOTE | 2020-01-06 22:50 | ECG_ITS ---
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 [email or web address]
[2020-01-07 00:22] LABS: Cocaine Screen Urine Negative (Negative); THC Screen Urine Negative (Negative)
[2020-01-07 00:23] LABS: Amphetamines Screen Urine Negative (Negative); Barbiturates Screen Urine Negative (Negative); Benzodiazepines Screen Urine Negative (Negative); Opiate Screen Urine Negative (Negative); PCP Screen Urine Negative (Negative)
[2020-01-07 00:50] LABS: Add Urine Microscopic? YES; Bilirubin Urine Neg (NEGATIVE); Blood Urine Neg (Negative); Glucose Urine UA Norm (Normal); Ketones Urine Negative (Negative); Leukocyte Esterase Urine Trace (Negative); Nitrate Urine Negative (Negative); Protein Urine Neg (Negative); Urine Appearance Hazy (CLEAR); Urine Color Yellow (Yellow); Urobilinogen Urine Norm (Negative); pH Urine 5 (5-7)
[2020-01-07 00:51] LABS: Add Urine Culture? Yes; Bacteria Urine 4+; RBC Urine 0-4 /hpf (0-2); Squamous Epithelial Cell Urine 0-4 (0-5); WBC Urine 15-25 /hpf (0-5)
[2020-01-07 01:11] LABS: Basophils # 0.1 10^3/uL (0.0-0.1); Basophils % 0.7 %; Eosinophils # 0.1 10^3/uL (0.0-0.8); Eosinophils % 1.3 %; Hematocrit 41.5 % (42.0-52.0); Hemoglobin 12.2 g/dL (11.7-16.6); Lymphocytes # 1.2 10^3/uL (0.8-4.8); Lymphocytes % 11.7 %; Mean Corpuscular HGB Conc 29.4 g/dL (30.0-36.0); Mean Corpuscular Hemoglobin 17.5 pg (28.0-34.0); Mean Corpuscular Volume 59.5 fL (80-94); Mean Platelet Volume 9.3 fL (7.4-10.4); Monocytes # 0.8 10^3/uL (0.2-0.9); Monocytes % 7.4 %; Neutrophils % 77.3 %; Nucleated Red Blood Cells % 0 %; Platelet Count 272 10^3/cmm (130-400); Red Blood Count 6.98 10^6/uL (4.1-5.3); White Blood Count 10.4 10^3/uL (4.0-10.0)
[2020-01-07 01:15] LABS: Slide Review Slide Review Perform
[2020-01-07] MEDS: predniSONE 20 mg Tablet 60 MG PO (02:02)
[2020-01-07] MEDS: diphenhydrAMINE 50 mg/mL SDV 1mL 25 MG IM (02:02)
[2020-01-07 02:07] VITALS: PULSE 70; RESP 18; O2SAT 99
[2020-01-07] MEDS: ipratropium-albuterol 3 mL Neb INHALATION (02:07)
[2020-01-07 02:09] VITALS: PULSE 56; RESP 16; O2SAT 99
== END 2020-01-07 03:56 | disposition left against medical advice (07) ==
PROVIDERS: Family Medicine; Emergency Provider Emergency Medicine; Family Provider Nurse Practitioner Family; PCP Nurse Practitioner Family
DX: N39.0 Urinary tract infection, site not specified (principal); Z86.73 Personal history of transient ischemic attack (TIA), and cerebral infarction without residual deficits; Z53.29 Procedure and treatment not carried out because of patient's decision for other reasons
CPT/HCPCS: 36415; 70450; 80053; 80307; 81001; 85025; 87077; 87086; 87186; 93005; 94640; 96372; 99283; 99284; J0696; J1200; J2001; J7512

== ENCOUNTER 2020-01-07 23:24 | Emergency (ER) | payer MEDICARE, OTHER, SELFPAY ==
[2020-01-07 23:30] VITALS: BP 149/105; PULSE 88; RESP 18; TEMP 36.4; O2SAT 99; BMI 36.5
[2020-01-07 23:48] LABS: Basophils % 0.2 %; Eosinophils % 0.1 %; Hematocrit 41.8 % (42.0-52.0); Hemoglobin 12.5 g/dL (11.7-16.6); Lymphocytes # 1.1 10^3/uL (0.8-4.8); Lymphocytes % 6.5 %; Mean Corpuscular HGB Conc 29.9 g/dL (30.0-36.0); Mean Corpuscular Hemoglobin 17.5 pg (28.0-34.0); Mean Corpuscular Volume 58.6 fL (80-94); Mean Platelet Volume 9.3 fL (7.4-10.4); Monocytes # 0.8 10^3/uL (0.2-0.9); Monocytes % 4.9 %; Neutrophils # 14.9 10^3/uL (1.8-7.7); Neutrophils % 86.9 %; Nucleated Red Blood Cells % 0.2 %; Platelet Count 297 10^3/cmm (130-400); Red Blood Count 7.13 10^6/uL (4.1-5.3); Red Cell Distribution Width 19.8 % (12.1-15.1); White Blood Count 17.1 10^3/uL (4.0-10.0)
--- NOTE | 2020-01-08 00:01 | W.ED.GENADLT ---
HPI - General Adult General: Chief complaint: Anxiety Stated complaint: anxiety Time Seen by Provider: 01/07/20 23:44 Source: patient and family Mode of arrival: ambulatory Limitations: no limitations History of Present Illness: HPI narrative: Patient is a 64-year-old male who presents to ED today along with his for complaints of anxiety. states they were in the living room watching TV when patient began complaining of not feeling right and telling his he felt anxious. states that has a history of anxiety and has done this previously. Patient tells me he feels fine now and reports being at his baseline. Patient denies chest pain, shortness of breath, difficulty breathing. He was seen here yesterday for dizziness but states this has subsided. He has no abdominal pain, nausea, vomiting, diarrhea. Recently diagnosed with a UTI but denies urinary symptoms. No fever/chills. Patient overall seems to be a poor historian- states he is at his normal mental baseline following his stroke. MD complaint: anxiety Onset (ago): hour(s) Associated symptoms: Deny chest pain, dyspnea, headache(s), malaise, nausea, rash, palpitations, syncope or vomiting Review of Systems Const: Denies: fever, chills, body aches, change in appetite, change in weight, fatigue or malaise Eyes: Denies: change in vision or blurry vision ENMT: Denies: throat pain, enlarged tonsils or painful swallowing Card: Denies: chest pain, palpitations, irregular heart rhythm, edema, lightheadedness, syncope or pre-syncope Resp: Denies: shortness of breath, productive cough, coughing up blood or chest congestion GI: Denies: abdominal pain, nausea, vomiting or diarrhea : Denies: flank pain, difficulty urinating, painful urination, urinary frequency, urinary urgency or urinary hesitancy Musc: Denies: neck pain or back pain Skin/Breast: Denies: rash Neuro: Denies: headache, numbness in extremities, weakness in extremities or changes in sensation Psych: Reports: anxiety PFSH ED PFSH: Family History (Updated 12/03/19 @ 08:27 by Venita Quinones RN) Mother Stroke Father Myocardial infarction Other CAD (coronary artery disease) Chronic kidney disease (CKD) Diabetes Hypertension Social History (Updated 12/03/19 @ 08:27 by Venita Quinones RN) Smoking and tobacco status: never smoked Alcohol intake: unknown Marital status: Physical Exam Const: COMMON NORMALS: no apparent distress, no limitations and alert NUTRITIONAL APPEARANCE: obese ORIENTATION/CONSCIOUSNESS: Yes oriented to person and Yes oriented to place HENMT: COMMON NORMALS: normocephalic and head/scalp atraumatic HEAD & SCALP: normocephalic and atraumatic Eye: COMMON NORMALS: PERRL and EOMs intact bilaterally PUPIL: Yes PERRL Neck/C-Spine: COMMON NORMALS: full ROM, no lymphadenopathy and no meningeal signs Resp: COMMON NORMALS: normal respiratory effort and clear to auscultation bilaterally AUSCULTATION: clear to auscultation bilaterally Cardio: COMMON NORMALS: regular rate and regular rhythm RATE: regular rate RHYTHM: regular rhythm GI: COMMON NORMALS: normal to inspection, nondistended, normoactive bowel sounds, soft to palpation and non-tender PALPATION: Yes soft : COMMON NORMALS: Yes no CVA tenderness BLADDER/KIDNEY EXAM: Yes no CVA tenderness Back/Pelvis: COMMON NORMALS: no CVA tenderness Extremity: COMMON NORMALS: normal to inspection Neuro: ALTAGRACIA COMA SCALE: document GCS findings Altagracia coma scale eye opening: Spontaneous [place] coma scale verbal response: Orientated Altagracia coma scale motor response: Obey commands [place] coma scale total score: 15 SENSORIUM/ORIENTATION: Yes alert, Yes oriented to person, Yes oriented to place and Yes orientation impaired (to time; states this is fairly normal following his stroke) MENINGEAL SIGNS: Yes no meningeal signs SPEECH: speech normal Skin: COMMON NORMALS: no rashes or lesions noted GENERAL SKIN EXAM: no rashes or lesions noted Course Vital Signs: Vital signs: Vital Signs Temperature 97.5 F L 01/07/20 23:30 Pulse Rate 77 01/08/20 01:52 Respiratory Rate 20 H 01/08/20 01:52 Blood Pressure 169/118 01/08/20 01:52 Pulse Oximetry 96 01/08/20 01:52 MDM - General Adult MDM Narrative: Medical decision making narrative: Upon reevaluation patient again states he has no symptoms currently. Labs reveal an elevated white count today when compared to yesterday. He went from approximately 10,000-17,000. UA does appear to be clearing. He has no other signs or symptoms of infection. He has no chest pain, shortness of breath, difficulty breathing. Spoke to Dr. Cabral who recommends maybe switching patient's Macrobid to something such as Levaquin. Return to ED precautions were given to patient. Lab Data: Labs: Lab Results 01/07/20 01/07/20 01/08/20 Range/Units 23:39 23:39 00:23 WBC 17.1 H (4.0-10.0) 10^3/ uL RBC 7.13 H (4.1-5.3) 10^6/u L Hgb 12.5 (11.7-16.6) g/dL Hct 41.8 L (42.0-52.0) % MCV 58.6 L (80-94) fL MCH 17.5 L (28.0-34.0) pg MCHC 29.9 L (30.0-36.0) g/dL RDW 19.8 H (12.1-15.1) % Plt Count 297 (130-400) 10^3/c mm MPV 9.3 (7.4-10.4) fL Neut % (Auto) 86.9 % Lymph % (Auto) 6.5 % [place] % (Auto) 4.9 % Eos % (Auto) 0.1 % Baso % (Auto) 0.2 % Neut # (Auto) 14.9 H (1.8-7.7) 10^3/u L Lymph # (Auto) 1.1 (0.8-4.8) 10^3/u L [place] # (Auto) 0.8 (0.2-0.9) 10^3/u L Eos # (Auto) 0.0 (0.0-0.8) 10^3/u L Baso # (Auto) 0.0 (0.0-0.1) 10^3/u L Nucleated RBC % (a uto) 0.2 % Nucleated RBCs # 0.0 /100WBC Sodium 135 L (136-145) mmol/L Potassium 4.8 (3.5-5.1) mmol/L Chloride 100 (98-107) mmol/L Carbon Dioxide 23 (22-29) mmol/L Anion Gap 16.8 (5-19) BUN 39 H (8-23) mg/dL Creatinine 1.2 (0.7-1.2) mg/dL GFR Calculation 60.6 L (90-130) mL/min Glucose 185 H (65-115) mg/dL Lactate (0.5-2.2) mmol/L Calcium 10.7 H (8.5-10.5) mg/dL Magnesium 2.2 (1.7-2.3) mg/dL Total Bilirubin 0.4 (0.15-1.2) mg/dL AST 37 (0-40) U/L ALT 44 H (0-41) U/L Alkaline Phosphata se 76 (40-130) IU/L Total Protein 7.0 (6.6-8.7) g/dL Albumin 3.7 (3.5-5.2) g/dL Globulin 3.3 (1.3-4.6) g/dL Urine Color Yellow (Yellow) Urine Appearance Clear (CLEAR) Urine pH 5 (5-7) Ur Specific Gravit y 1.010 (1.005-1.030) Urine Protein Neg (Negative) Urine Glucose (UA) Norm (Normal) Urine Ketones Negative (Negative) Urine Occult Blood 3+ H (Negative) Urine Nitrate Negative (Negative) Urine Bilirubin Neg (NEGATIVE) Urine Urobilinogen Norm (Negative) mg/dL Ur Leukocyte Michelle ase Negative (Negative) Urine RBC 10-15 H (0-2) /hpf Urine WBC None (0-5) /hpf Ur Squamous Epith Cells None (0-5) Urine Bacteria Trace (NONE) 01/08/20 Range/Units 00:53 WBC (4.0-10.0) 10^3/ uL RBC (4.1-5.3) 10^6/u L Hgb (11.7-16.6) g/dL Hct (42.0-52.0) % MCV (80-94) fL MCH (28.0-34.0) pg MCHC (30.0-36.0) g/dL RDW (12.1-15.1) % Plt Count (130-400) 10^3/c mm MPV (7.4-10.4) fL Neut % (Auto) % Lymph % (Auto) % [place] % (Auto) % Eos % (Auto) % Baso % (Auto) % Neut # (Auto) (1.8-7.7) 10^3/u L Lymph # (Auto) (0.8-4.8) 10^3/u L [place] # (Auto) (0.2-0.9) 10^3/u L Eos # (Auto) (0.0-0.8) 10^3/u L Baso # (Auto) (0.0-0.1) 10^3/u L Nucleated RBC % (a uto) % Nucleated RBCs # /100WBC Sodium (136-145) mmol/L Potassium (3.5-5.1) mmol/L Chloride (98-107) mmol/L Carbon Dioxide (22-29) mmol/L Anion Gap (5-19) BUN (8-23) mg/dL Creatinine (0.7-1.2) mg/dL GFR Calculation (90-130) mL/min Glucose (65-115) mg/dL Lactate 1.7 (0.5-2.2) mmol/L Calcium (8.5-10.5) mg/dL Magnesium (1.7-2.3) mg/dL Total Bilirubin (0.15-1.2) mg/dL AST (0-40) U/L ALT (0-41) U/L Alkaline Phosphata se (40-130) IU/L Total Protein (6.6-8.7) g/dL Albumin (3.5-5.2) g/dL Globulin (1.3-4.6) g/dL Urine Color (Yellow) Urine Appearance (CLEAR) Urine pH (5-7) Ur Specific Gravit y (1.005-1.030) Urine Protein (Negative) Urine Glucose (UA) (Normal) Urine Ketones (Negative) Urine Occult Blood (Negative) Urine Nitrate (Negative) Urine Bilirubin (NEGATIVE) Urine Urobilinogen (Negative) mg/dL Ur Leukocyte Michelle ase (Negative) Urine RBC (0-2) /hpf Urine WBC (0-5) /hpf Ur Squamous Epith Cells (0-5) Urine Bacteria (NONE) Discharge Plan Discharge Patient Disposition: Home, Self-Care Clinical Impression: Anxiety Leukocytosis Qualifiers: Leukocytosis type: unspecified Qualified Code(s): D72.829 - Elevated white blood cell count, unspecified Condition: Stable Prescriptions: New Levaquin 500 mg tablet 500 mg PO Q24H 7 Days Qty: 7 RF: 0 No Action tamsulosin 0.4 mg capsule 0.4 mg PO DAILY RF: 0 citalopram [Celexa] 10 mg tablet 10 mg PO DAILY RF: 0 leflunomide 20 mg tablet 20 mg PO DAILY RF: 0 furosemide 40 mg tablet 40 mg PO QAM RF: 0 Lantus U-100 Insulin 100 unit/mL solution See Rx Instructions .ROUTE .COMPLEX RF: 0 insulin lispro [Humalog U-100 Insulin] 100 unit/mL solution See Rx Instructions .ROUTE .COMPLEX RF: 0 nitroglycerin [Nitrostat] 0.4 mg tablet, sublingual 0.4 mg SUBLINGUAL Q5M PRN (Reason: Chest Pain) RF: 0 carvedilol 12.5 mg Tablet 12.5 mg PO BID RF: 0 ondansetron HCl [Zofran] 4 mg Tablet 4 mg PO Q6H PRN (Reason: Nausea) RF: 0 prednisone 20 mg Tablet 10 mg PO DAILY RF: 0 diltiazem HCl 240 mg Capsule,Extended Release 24 Hr 240 mg PO DAILY RF: 0 amoxicillin 500 mg Tablet 500 mg PO BID RF: 0 warfarin 5 mg Tablet See Rx Instructions .ROUTE .COMPLEX RF: 0 cholecalciferol (vitamin D3) [Vitamin D3] 25 mcg (1,000 unit) Capsule 1,000 unit PO DAILY RF: 0 Florastor 250 mg Capsule 500 mg PO BID RF: 0 potassium chloride 20 mEq Tablet Extended Release 40 meq PO DAILY RF: 0 coenzyme Q10 125 mg Capsule 120 mg PO DAILY RF: 0 atorvastatin 40 mg PO QPM RF: 0 tramadol [Ultram] 50 mg Tablet 50 mg PO Q4H PRN (Reason: Pain) RF: 0 pantoprazole [Protonix] 40 mg Tablet,Delayed Release (Dr/Ec) 40 mg PO DAILY RF: 0 vitamin B complex [Super B-50 Complex] Capsule 1 cap PO DAILY RF: 0 Zofran 4 mg tablet 4 mg PO DAILY PRN (Reason: nausea and vomiting) 5 Days RF: 0 Discharge Orders: Discharge Order (Routine); Ordered 01/08/20 Ordered By: Lauren Wilson Referrals: Faustina Gonzalez, [employer] [Primary Care Provider] - Activity Restrictions/Additional Instructions: As discussed we will switch her antibiotic from the Macrobid to the Levaquin. Your white cell count was elevated today (when compared to yesterday) which I am not sure why. You need to return to the emergency department for any onset of fevers greater than 100.4, abdominal pain, shortness of breath, chest pains, flank pain, burning with urination, feeling generally unwell, or any other concerns you have. 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
[2020-01-08 00:02] VITALS: BP 148/100; PULSE 90; RESP 19; O2SAT 96
[2020-01-08 00:04] LABS: Alanine Aminotransferase 44 U/L (0-41); Albumin Level 3.7 g/dL (3.5-5.2); Alkaline Phosphatase 76 IU/L (40-130); Anion Gap 16.8 (5-19); Blood Urea Nitrogen 39 mg/dL (8-23); Calcium 10.7 mg/dL (8.5-10.5); Carbon Dioxide 23 mmol/L (22-29); Chloride 100 mmol/L (98-107); Globulin 3.3 g/dL (1.3-4.6); Glomerular Filtration Rate 60.6 mL/min (90-130); Glucose 185 mg/dL (65-115); Magnesium 2.2 mg/dL (1.7-2.3); Potassium 4.8 mmol/L (3.5-5.1); Sodium 135 mmol/L (136-145); Total Bilirubin 0.4 mg/dL (0.15-1.2)
--- NOTE | 2020-01-08 00:06 | PC.NURSE ---
patient states that tonight he got anxious while he was sitting at home. patient states that he has a history of anxiety. states that patient has been placed on new medication for his anxiety. also states that he has had a stroke last year and has not been normal since then.
[2020-01-08 00:35] LABS: Aspartate Amino Transferase 37 U/L (0-40)
[2020-01-08 00:50] LABS: Bilirubin Urine Neg (NEGATIVE); Blood Urine 3+ (Negative); Glucose Urine UA Norm (Normal); Ketones Urine Negative (Negative); Leukocyte Esterase Urine Negative (Negative); Nitrate Urine Negative (Negative); Protein Urine Neg (Negative); Urine Appearance Clear (CLEAR); Urine Color Yellow (Yellow); Urobilinogen Urine Norm (Negative); pH Urine 5 (5-7)
[2020-01-08 00:53] LABS: Add Urine Culture? Yes; Bacteria Urine TRACE
[2020-01-08 01:10] LABS: Lactate (Lactic Acid level) 1.7 mmol/L (0.5-2.2)
[2020-01-08 01:21] VITALS: PULSE 88; RESP 18; O2SAT 98
[2020-01-08 01:52] VITALS: BP 169/118; PULSE 77; RESP 20; O2SAT 96
== END 2020-01-08 01:52 | disposition home or self-care (01) ==
PROVIDERS: Emergency Medicine; Emergency Provider Physician Assistant; Family Provider Nurse Practitioner Family; PCP Nurse Practitioner Family
DX: F41.9 Anxiety disorder, unspecified (principal); E66.9 Obesity, unspecified; Z79.01 Long term (current) use of anticoagulants; Z86.73 Personal history of transient ischemic attack (TIA), and cerebral infarction without residual deficits; R40.2412 Glasgow coma scale score 13-15, at arrival to emergency department; Z68.36 Body mass index [BMI] 36.0-36.9, adult
CPT/HCPCS: 36415; 80053; 81001; 83605; 83735; 85025; 87086; 99281; 99283

== ENCOUNTER 2020-01-09 23:55 | Emergency (ER) | payer MEDICARE, OTHER, SELFPAY ==
[2020-01-10 00:12] VITALS: BP 134/95; PULSE 70; RESP 18; TEMP 37; O2SAT 93; BMI 36.5
--- NOTE | 2020-01-10 01:15 | ED_ITS ---
HPI - Allergic Reaction General: Chief complaint: Allergic Reaction Stated complaint: POSS REACTION TO LEVOFLOXACIN Time Seen by Provider: 01/10/20 01:03 Source: patient Mode of arrival: ambulatory Limitations: no limitations History of Present Illness: HPI narrative: Patient comes in today for complaints of muscle pain and itching hands. Patient reports that this occurred after a second dose of Levaquin. Patient appears well. Patient denies any difficulty breathing or swallowing. Reviewing the record it was noted that patient had a bump in his white count when he was switched from the Macrobid to Levaquin. But it was also noted the day before patient was given a burst of steroid through an injection due to a reaction to Rocephin. Patient and both report no fever or other symptoms. Review of Systems General: Reports: 10 or more systems reviewed and unremarkable except in HPI and below Musc: Reports: muscle cramps Skin/Breast: Reports: itching [facility] ED PFSH: Family History (Updated 12/03/19 @ 08:27 by Venita Quinones RN) Mother Stroke Father Myocardial infarction Other CAD (coronary artery disease) Chronic kidney disease (CKD) Diabetes Hypertension Social History (Updated 12/03/19 @ 08:27 by Venita Quinones RN) Smoking and tobacco status: never smoked Alcohol intake: unknown Marital status: Physical Exam Const: COMMON NORMALS: no apparent distress and oriented x3 GENERAL APPEARANCE: cooperative HENMT: COMMON NORMALS: normocephalic, external ears normal, EAC's normal, TM's normal bilaterally and external nose normal HEAD & SCALP: normal to inspection and normocephalic FACE & SINUS: normal facial exam NOSE: external nose normal GENERAL EAR: hearing not grossly impaired EXTERNAL EAR: Yes external ears normal EXTERNAL AUDITORY CANAL: EAC's normal TYMPANIC MEMBRANE: TM's normal bilaterally MOUTH: oral and palatal mucosa normal THROAT: posterior oropharynx normal Eye: COMMON NORMALS: PERRL and EOMs intact bilaterally PUPIL: Yes PERRL Neck/C-Spine: COMMON NORMALS: full ROM and no lymphadenopathy Lymph: LYMPHATIC: no lymphedema noted Chest: COMMONS NORMALS: inspection of chest normal and palpation of chest normal Resp: COMMON NORMALS: normal respiratory effort and clear to auscultation bilaterally AUSCULTATION: clear to auscultation bilaterally Cardio: COMMON NORMALS: regular rate and regular rhythm RATE: regular rate RHYTHM: regular rhythm GI: COMMON NORMALS: normal to inspection, nondistended, normoactive bowel sounds and non-tender : COMMON NORMALS: Yes no CVA tenderness BLADDER/KIDNEY EXAM: Yes no CVA tenderness Back/Pelvis: COMMON NORMALS: no CVA tenderness and thoracic and lumbar spine normal to inspection Extremity: COMMON NORMALS: normal to inspection GENERAL: No edema Neuro: COMMON NORMALS: oriented x3, moves all extremities and no focal motor deficits Psych: COMMON NORMALS: mental status grossly normal and cooperative Skin: COMMON NORMALS: no rashes or lesions noted GENERAL SKIN EXAM: no rashes or lesions noted Course Vital Signs: Vital signs: Vital Signs Temperature 98.6 F 01/10/20 00:12 Pulse Rate 70 01/10/20 00:12 Respiratory Rate 18 01/10/20 00:12 Blood Pressure 134/95 01/10/20 00:12 Pulse Oximetry 93 01/10/20 00:12 MDM - Allergic Reaction MDM Narrative: Medical decision making narrative: Patient comes in today due to muscle pain and hands itching. On exam patient appears well. Lungs are clear to auscultation. No signs of urticaria or rashes noted. Skin is warm and dry. Patient is obese. Vital signs are normal. Differential diagnosis includes anaphylaxis, allergic reaction, adverse drug reaction. Review of the record, I believe patient needs switched from his Levaquin back to his Macrobid. I believe the elevation that we noted in the patient's white blood cell count was due to a injection of steroid he received after having a reaction to Rocephin. Patient was tolerating the Macrobid well and reported improvement in his overall symptoms. We will recommend the patient continue with his Macrobid and follow-up with his primary care next week. They can recheck the urine at that time and consider further treatment is needed. Patient should also return to the ER for high fever or other new concerns. Patient and spouse both report understanding of plan. Discharge Plan Discharge Patient Disposition: Home, Self-Care Clinical Impression: Acute UTI Adverse reaction to drug Qualifiers: Encounter type: initial encounter Qualified Code(s): T50.905A - Adverse effect of unspecified drugs, medicaments and biological substances, initial encounter Condition: Stable Prescriptions: Discontinued amoxicillin 500 mg Tablet 500 mg PO BID RF: 0 levofloxacin [Levaquin] 500 mg tablet 500 mg PO Q24H 7 Days Qty: 7 RF: 0 No Action tamsulosin 0.4 mg capsule 0.4 mg PO DAILY RF: 0 citalopram [Celexa] 10 mg tablet 10 mg PO DAILY RF: 0 leflunomide 20 mg tablet 20 mg PO DAILY RF: 0 furosemide 40 mg tablet 40 mg PO QAM RF: 0 Lantus U-100 Insulin 100 unit/mL solution See Rx Instructions .ROUTE .COMPLEX RF: 0 insulin lispro [Humalog U-100 Insulin] 100 unit/mL solution See Rx Instructions .ROUTE .COMPLEX RF: 0 nitroglycerin [Nitrostat] 0.4 mg tablet, sublingual 0.4 mg SUBLINGUAL Q5M PRN (Reason: Chest Pain) RF: 0 carvedilol 12.5 mg Tablet 12.5 mg PO BID RF: 0 ondansetron HCl [Zofran] 4 mg Tablet 4 mg PO Q6H PRN (Reason: Nausea) RF: 0 prednisone 20 mg Tablet 10 mg PO DAILY RF: 0 diltiazem HCl 240 mg Capsule,Extended Release 24 Hr 240 mg PO DAILY RF: 0 warfarin 5 mg Tablet See Rx Instructions .ROUTE .COMPLEX RF: 0 cholecalciferol (vitamin D3) [Vitamin D3] 25 mcg (1,000 unit) Capsule 1,000 unit PO DAILY RF: 0 Florastor 250 mg Capsule 500 mg PO BID RF: 0 potassium chloride 20 mEq Tablet Extended Release 40 meq PO DAILY RF: 0 coenzyme Q10 125 mg Capsule 120 mg PO DAILY RF: 0 atorvastatin 40 mg PO QPM RF: 0 tramadol [Ultram] 50 mg Tablet 50 mg PO Q4H PRN (Reason: Pain) RF: 0 pantoprazole [Protonix] 40 mg Tablet,Delayed Release (Dr/Ec) 40 mg PO DAILY RF: 0 vitamin B complex [Super B-50 Complex] Capsule 1 cap PO DAILY RF: 0 Zofran 4 mg tablet 4 mg PO DAILY PRN (Reason: nausea and vomiting) 5 Days RF: 0 Discharge Orders: Discharge Order (Routine); Ordered 01/10/20 Ordered By: Paco Schaefer Referrals: Faustina Gonzalez NP [Primary Care Provider] - Discharge Diet: Usual diet Discharge Activity: Increase activity as tolerated Patient Instructions: Adverse Drug Reaction (ED) Activity Restrictions/Additional Instructions: Drink plenty of fluids Stop Levaquin Continue with Macrobid as prescribed prior to Levaquin Activity as tolerated Follow-up in one week with primary care to recheck urine Return to ER for high fever greater than 100.4 or new concerns Coding Level of Care Code ED 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
[2020-01-10] MEDS: diphenhydrAMINE 50 mg/mL SDV 1mL IM (01:26)
[2020-01-10 01:32] VITALS: BP 115/78; PULSE 88; RESP 18; O2SAT 95
== END 2020-01-10 01:30 | disposition home or self-care (01) ==
PROVIDERS: Emergency Provider Nurse Practitioner Family; Family Provider Nurse Practitioner Family; PCP Nurse Practitioner Family
DX: M79.10 Myalgia, unspecified site (principal); L29.9 Pruritus, unspecified; T50.905A Adverse effect of unspecified drugs, medicaments and biological substances, initial encounter; N39.0 Urinary tract infection, site not specified; E66.9 Obesity, unspecified; Z68.36 Body mass index [BMI] 36.0-36.9, adult
CPT/HCPCS: 96372; 99281; 99282; J1200

== ENCOUNTER 2020-01-11 06:21 | Emergency (ER) | payer MEDICARE, OTHER, SELFPAY ==
[2020-01-11 06:22] VITALS: BP 137/95; PULSE 91; RESP 16; TEMP 36.6; O2SAT 96; BMI 37.6
[2020-01-11 06:58] VITALS: RESP 18
[2020-01-11] MEDS: morphine 4 mg/mL SDV 1 mL IVP (06:58)
[2020-01-11] MEDS: ondansetron 2 mg/ML SDV 2 mL 4 MG IVP (06:58)
--- NOTE | 2020-01-11 07:06 | ED_ITS ---
Entered by Eri Varghese, acting as scribe for HPI - Abdominal Pain General: Chief Complaint: Abdominal Pain Stated Complaint: abd pain Time Seen by Provider: 01/11/20 06:27 Source: patient and EMS Mode of arrival: EMS Limitations: no limitations History of Present Illness: HPI narrative: 64 yo male presents with abd pain. Patient has a history of chronic abdominal pain is seen here multiple times for abdominal pain. He states that he woke up with pain 2 hours ago sharp and right upper quadrant. He states the pain is since resolved and he is currently pain- free. He denies any vomiting or diarrhea. He denies any fevers. He denies any worsening or improving factors. MD elicited complaint: abdominal pain Onset (ago): hour(s) Location: None Pain scale (0-10): 0 Associated Symptoms: Denies chills, diarrhea, dysuria, fever(s), nausea and vomiting Review of Systems Const: Denies: fever, chills, body aches or change in appetite Eyes: Denies: blurry vision or eye discomfort ENMT: Denies: throat pain or dental pain Card: Denies: chest pain Resp: Denies: shortness of breath GI: Denies: abdominal pain, nausea, vomiting or diarrhea : Denies: painful urination Musc: Denies: neck pain or back pain Skin/Breast: Denies: rash Neuro: Denies: headache Psych: Denies: depression Aaron/Lymph: Denies: easy bruising All/Imm: Denies: hives PFSH ED PFSH: Medical History (Updated 01/11/20 @ 07:55 by Schuyler Smith MD) Pulmonary HTN Family History (Updated 12/03/19 @ 08:27 by Venita Quinones RN) Mother Stroke Father Myocardial infarction Other CAD (coronary artery disease) Chronic kidney disease (CKD) Diabetes Hypertension Social History (Updated 12/03/19 @ 08:27 by Venita Quinones RN) Smoking and tobacco status: former smoker Alcohol intake: unknown Marital status: Physical Exam Const: COMMON NORMALS: no apparent distress, oriented x3 and healthy appearing HENMT: COMMON NORMALS: normocephalic and head/scalp atraumatic HEAD & SCALP: normocephalic and atraumatic Eye: COMMON NORMALS: PERRL and EOMs intact bilaterally PUPIL: Yes PERRL Neck/C-Spine: COMMON NORMALS: full ROM and supple Chest: COMMONS NORMALS: inspection of chest normal and palpation of chest normal Resp: COMMON NORMALS: normal respiratory effort, no retractions, no use of accessory muscles and clear to auscultation bilaterally AUSCULTATION: clear to auscultation bilaterally Cardio: COMMON NORMALS: regular rate, regular rhythm and no murmurs RATE: regular rate RHYTHM: regular rhythm GI: COMMON NORMALS: normal to inspection, nondistended, normoactive bowel sounds, soft to palpation, non-tender and no masses PALPATION: Yes soft Extremity: COMMON NORMALS: normal to inspection and full ROM Neuro: COMMON NORMALS: oriented x3, moves all extremities and no focal motor deficits Psych: COMMON NORMALS: mental status grossly normal, thought process normal and cooperative THOUGHT PROCESS: normal thought process Skin: COMMON NORMALS: no rashes or lesions noted and no wounds GENERAL SKIN EXAM: no rashes or lesions noted Course Vital Signs: Vital signs: Vital Signs Temperature 97.8 F 01/11/20 06:22 Pulse Rate 88 01/11/20 07:11 Respiratory Rate 17 01/11/20 07:11 Blood Pressure 137/95 01/11/20 06:22 Pulse Oximetry 96 01/11/20 07:11 MDM - Abdominal Pain MDM Narrative: Medical decision making narrative: Patient presents here with abdominal pain that is since resolved. Patient's exam here is benign and he has no tenderness on his abdomen no signs of acute surgical abdomen. Patient's blood work here is normal. He is stable for discharge and is to return if worsening. Lab Data: Labs: Lab Results 01/11/20 01/11/20 Range/Units 06:55 07:31 WBC 10.0 (4.0-10.0) 10^3/ uL RBC 7.05 H (4.1-5.3) 10^6/u L Hgb 12.3 (11.7-16.6) g/dL Hct 41.6 L (42.0-52.0) % MCV 59.0 L (80-94) fL MCH 17.4 L (28.0-34.0) pg MCHC 29.6 L (30.0-36.0) g/dL RDW 20.1 H (12.1-15.1) % Plt Count 250 (130-400) 10^3/c mm MPV 9.7 (7.4-10.4) fL Neut % (Auto) 74.9 % Lymph % (Auto) 14.9 % Graves % (Auto) 6.0 % Eos % (Auto) 1.5 % Baso % (Auto) 0.7 % Neut # (Auto) 7.5 (1.8-7.7) 10^3/u L Lymph # (Auto) 1.5 (0.8-4.8) 10^3/u L Graves # (Auto) 0.6 (0.2-0.9) 10^3/u L Eos # (Auto) 0.2 (0.0-0.8) 10^3/u L Baso # (Auto) 0.1 (0.0-0.1) 10^3/u L Nucleated RBC % (a uto) 0 % Total Counted 100 (0-100) Segmented Neutroph ils 78 % Band Neutrophils 2.0 % Lymphocytes (Manua l) 16 % Monocytes (Manual) 3.0 % Absolute Monocytes 0.3 (0.1-0.6) 10^3/c mm Eosinophils (Manua l) 1 % Absolute Eosinophi ls 0.1 (0.0-0.7) 10^3/c mm Nucleated RBCs # 0.0 /100WBC Platelet Estimate Normal (Normal) Poikilocytosis 1+ H Anisocytosis 2+ H Microcytosis 1+ H Tear Drop Cells Trace Ovalocytes Trace Sodium 139 (136-145) mmol/L Potassium 3.7 (3.5-5.1) mmol/L Chloride 101 (98-107) mmol/L Carbon Dioxide 25 (22-29) mmol/L Anion Gap 16.7 (5-19) BUN 40 H (8-23) mg/dL Creatinine 1.1 (0.7-1.2) mg/dL GFR Calculation 67.0 L (90-130) mL/min Glucose 199 H (65-115) mg/dL Calcium 10.5 (8.5-10.5) mg/dL Total Bilirubin 0.4 (0.15-1.2) mg/dL AST 29 (0-40) U/L ALT 46 H (0-41) U/L Alkaline Phosphata se 63 (40-130) IU/L Total Protein 6.4 L (6.6-8.7) g/dL Albumin 3.1 L (3.5-5.2) g/dL Globulin 3.3 (1.3-4.6) g/dL Lipase 45 (13-60) U/L Discharge Plan Discharge Patient Disposition: Home, Self-Care Clinical Impression: Abdominal pain Qualifiers: Abdominal location: generalized Qualified Code(s): R10.84 - Generalized abdominal pain Condition: Stable Prescriptions: No Action tamsulosin 0.4 mg capsule 0.4 mg PO DAILY RF: 0 citalopram [Celexa] 10 mg tablet 10 mg PO DAILY RF: 0 leflunomide 20 mg tablet 20 mg PO DAILY RF: 0 furosemide 40 mg tablet 40 mg PO QAM RF: 0 Lantus U-100 Insulin 100 unit/mL solution See Rx Instructions .ROUTE .COMPLEX RF: 0 insulin lispro [Humalog U-100 Insulin] 100 unit/mL solution See Rx Instructions .ROUTE .COMPLEX RF: 0 nitroglycerin [Nitrostat] 0.4 mg tablet, sublingual 0.4 mg SUBLINGUAL Q5M PRN (Reason: Chest Pain) RF: 0 carvedilol 12.5 mg Tablet 12.5 mg PO BID RF: 0 ondansetron HCl [Zofran] 4 mg Tablet 4 mg PO Q6H PRN (Reason: Nausea) RF: 0 prednisone 20 mg Tablet 10 mg PO DAILY RF: 0 diltiazem HCl 240 mg Capsule,Extended Release 24 Hr 240 mg PO DAILY RF: 0 warfarin 5 mg Tablet See Rx Instructions .ROUTE .COMPLEX RF: 0 cholecalciferol (vitamin D3) [Vitamin D3] 25 mcg (1,000 unit) Capsule 1,000 unit PO DAILY RF: 0 Florastor 250 mg Capsule 500 mg PO BID RF: 0 potassium chloride 20 mEq Tablet Extended Release 40 meq PO DAILY RF: 0 coenzyme Q10 125 mg Capsule 120 mg PO DAILY RF: 0 atorvastatin 40 mg PO QPM RF: 0 tramadol [Ultram] 50 mg Tablet 50 mg PO Q4H PRN (Reason: Pain) RF: 0 pantoprazole [Protonix] 40 mg Tablet,Delayed Release (Dr/Ec) 40 mg PO DAILY RF: 0 vitamin B complex [Super B-50 Complex] Capsule 1 cap PO DAILY RF: 0 Zofran 4 mg tablet 4 mg PO DAILY PRN (Reason: nausea and vomiting) 5 Days RF: 0 Discharge Orders: Discharge Order (Routine); Ordered 01/11/20 Ordered By: Schuyelr Smith Referrals: Faustina Gonzalez NP [Primary Care Provider] - Discharge Diet: Advance as tolerated Discharge Activity: Resume usual activity Patient Instructions: Abdominal Pain (ED) Coding Level of Care Code ED Fugitive Detective for Chg Fwd Exam Comprehensive The documentation recorded by the Abimael blackburn Kialy, accurately reflects the service I personally performed and the decisions made by Sarah castle Korby, MD Jan 11, 2020 06:21
[2020-01-11 07:11] VITALS: PULSE 88; RESP 17; O2SAT 96
[2020-01-11 07:36] LABS: Basophils # 0.1 10^3/uL (0.0-0.1); Basophils % 0.7 %; Eosinophils # 0.2 10^3/uL (0.0-0.8); Eosinophils % 1.5 %; Hematocrit 41.6 % (42.0-52.0); Hemoglobin 12.3 g/dL (11.7-16.6); Lymphocytes # 1.5 10^3/uL (0.8-4.8); Lymphocytes % 14.9 %; Mean Corpuscular HGB Conc 29.6 g/dL (30.0-36.0); Mean Corpuscular Hemoglobin 17.4 pg (28.0-34.0); Mean Platelet Volume 9.7 fL (7.4-10.4); Monocytes # 0.6 10^3/uL (0.2-0.9); Neutrophils # 7.5 10^3/uL (1.8-7.7); Neutrophils % 74.9 %; Nucleated Red Blood Cells % 0 %; Platelet Count 250 10^3/cmm (130-400); Red Blood Count 7.05 10^6/uL (4.1-5.3); Red Cell Distribution Width 20.1 % (12.1-15.1)
[2020-01-11 07:38] LABS: Slide Review Slide Review Perform
[2020-01-11 07:46] LABS: Absolute Eosinophils 0.1 10^3/cmm (0.0-0.7); Absolute Segmented Neutrophil 7.8 10/cmm (1.6-7.1); Band Neutrophils Absolute 0.2 10^3/cmm (0.0-1.2); Eosinophils 1 %; Lymphocytes 16 %; Monocytes Absolute 0.3 10^3/cmm (0.1-0.6); Platelet Estimate Normal (Normal); Segmented Neutrophils 78 %; Total Cells Counted 100 (0-100)
[2020-01-11 07:48] LABS: Anisocytosis 2+; Microcytosis 1+; Ovalocytes Trace; Poikilocytosis 1+; Tear Drop Cells Trace
[2020-01-11 07:49] LABS: Alanine Aminotransferase 46 U/L (0-41); Albumin Level 3.1 g/dL (3.5-5.2); Alkaline Phosphatase 63 IU/L (40-130); Anion Gap 16.7 (5-19); Aspartate Amino Transferase 29 U/L (0-40); Blood Urea Nitrogen 40 mg/dL (8-23); Calcium 10.5 mg/dL (8.5-10.5); Carbon Dioxide 25 mmol/L (22-29); Chloride 101 mmol/L (98-107); Creatinine Clr Calc Pharmacy 87.9853; Globulin 3.3 g/dL (1.3-4.6); Glucose 199 mg/dL (65-115); Lipase 45 U/L (13-60); Potassium 3.7 mmol/L (3.5-5.1); Sodium 139 mmol/L (136-145); Total Bilirubin 0.4 mg/dL (0.15-1.2); Total Protein 6.4 g/dL (6.6-8.7)
[2020-01-11 08:08] VITALS: BP 137/91; PULSE 84; RESP 15; O2SAT 96
== END 2020-01-11 08:08 | disposition home or self-care (01) ==
PROVIDERS: Emergency Provider Emergency Medicine; Family Provider Nurse Practitioner Family; PCP Nurse Practitioner Family
DX: R10.9 Unspecified abdominal pain (principal); Z87.891 Personal history of nicotine dependence
CPT/HCPCS: 36415; 80053; 83690; 85007; 85025; 96374; 96375; 99282; 99283; J2270; J2405

== ENCOUNTER 2020-01-16 21:01 | Emergency (ER) | payer MEDICARE, OTHER, SELFPAY ==
[2020-01-16 21:12] VITALS: BP 132/94; PULSE 96; RESP 18; TEMP 36.5; O2SAT 96; BMI 36.5
[2020-01-16 21:24] LABS: Basophils # 0.1 10^3/uL (0.0-0.1); Basophils % 0.5 %; Eosinophils # 0.1 10^3/uL (0.0-0.8); Eosinophils % 1.1 %; Hematocrit 43.1 % (42.0-52.0); Hemoglobin 13.1 g/dL (11.7-16.6); Lymphocytes # 1.3 10^3/uL (0.8-4.8); Lymphocytes % 11.4 %; Mean Corpuscular HGB Conc 30.4 g/dL (30.0-36.0); Mean Corpuscular Hemoglobin 18.4 pg (28.0-34.0); Mean Corpuscular Volume 60.6 fL (80-94); Monocytes # 0.9 10^3/uL (0.2-0.9); Monocytes % 7.8 %; Neutrophils # 8.7 10^3/uL (1.8-7.7); Nucleated Red Blood Cells % 0.2 %; Platelet Count 255 10^3/cmm (130-400); Red Blood Count 7.11 10^6/uL (4.1-5.3); Red Cell Distribution Width 20.7 % (12.1-15.1); White Blood Count 11.1 10^3/uL (4.0-10.0)
[2020-01-16] MEDS: sodium chloride 0.9% 1,000 ML 100 ML IV (21:30)
--- NOTE | 2020-01-16 21:31 | ED_ITS ---
Entered by Binta Garcia, acting as scribe for Lorrie Cabral Jan 16, 2020 21:01 HPI - Abdominal Pain General: Chief Complaint: Abdominal Pain Stated Complaint: abd pain Time Seen by Provider: 01/16/20 21:12 Source: patient and family Mode of arrival: wheelchair History of Present Illness: HPI narrative: 64 y/o male presents to the ED with abd pain. Pt states his pain has subsided since his arrival at [facility] [place]. Family states he had pain last night and today. He has not had any N/V. He reports feeling like his abd was swollen . MD elicited complaint: abdominal pain Onset (ago): day(s) Pain Consistency: now resolved Quality: fullness Associated Symptoms: Denies chills, dysuria, fever(s), hematuria, melena and syncope Review of Systems General: Reports: other (negative unless marked) Const: Denies: fever, chills, body aches, fatigue, malaise or diaphoresis Eyes: Denies: change in vision or blurry vision ENMT: Denies: throat pain, painful swallowing, hoarseness, ear pain, ear discharge, Change in hearing or nasal discharge Card: Denies: chest pain, palpitations, irregular heart rhythm, syncope, pre- syncope, shortness of breath on exertion or shortness of breath when lying down Resp: Denies: shortness of breath, productive cough, non-productive cough, wheezing, coughing up blood or chest congestion GI: Denies: black tarry stool : Denies: flank pain, difficulty urinating, painful urination, urinary frequency, urinary urgency, decreased urine ouput, urinary incontinence or blood in urine Musc: Denies: neck pain, back pain, extremity pain, extremity swelling, joint pain, joint swelling, joint warmth or joint stiffness Skin/Breast: Denies: rash, skin tenderness or yellow skin Neuro: Denies: headache, numbness in extremities, weakness in extremities, changes in sensation, lack of coordination, difficulty walking, dizziness, vertigo or confusion Endo: Denies: excessive thirst, tired all the time, cold intolerance, excessive sweating, flushing or hot flashes Aaron/Lymph: Denies: easy bruising, easy bleeding, petechiae or enlarged lymph nodes All/Imm: Denies: hives, throat swelling, tongue swelling, facial swelling or acute wheezing PFSH ED PFSH: Medical History (Updated 01/17/20 @ 02:03 by Lorrie Cabral) Pulmonary HTN Family History (Updated 12/03/19 @ 08:27 by Venita Quinones, ANTWON) Mother Stroke Father Myocardial infarction Other CAD (coronary artery disease) Chronic kidney disease (CKD) Diabetes Hypertension Social History (Updated 12/03/19 @ 08:27 by Venita Quinones RN) Smoking and tobacco status: never smoked Alcohol intake: unknown Marital status: Physical Exam Const: COMMON NORMALS: no apparent distress, oriented x3, no limitations, healthy appearing and well nourished EXAM LIMITATIONS: no altered mental status GENERAL APPEARANCE: cooperative, well kempt and well developed ORIENTATION/CONSCIOUSNESS: Yes awake HENMT: COMMON NORMALS: normocephalic, head/scalp atraumatic, hearing grossly normal bilaterally, external ears normal, EAC's normal, external nose normal and moist oral mucous membranes HEAD & SCALP: normal to inspection, normocephalic and atraumatic FACE & SINUS: normal facial exam and face symmetric NOSE: external nose normal and nares normal EXTERNAL EAR: Yes external ears normal EXTERNAL AUDITORY CANAL: EAC's normal MOUTH: oral and palatal mucosa normal and tongue normal Eye: COMMON NORMALS: PERRL, EOMs intact bilaterally, conjunctivae normal and no scleral icterus GENERAL EYE: normal appearance of both eyes and normal light reflex CONJUNCTIVA: Yes conjunctivae normal SCLERA: sclerae normal CORNEA: Yes corneas normal PUPIL: Yes PERRL DIRECT OPHTHALMOSCOPY: Yes normal light reflex Neck/C-Spine: COMMON NORMALS: full ROM, no lymphadenopathy, supple, no meningeal signs and no JVD GENERAL: Yes normal visual inspection and Yes trachea midline CERVICAL SPINE: Yes cervical ROM normal Chest: COMMONS NORMALS: inspection of chest normal and palpation of chest normal Resp: COMMON NORMALS: normal respiratory effort, no retractions, no use of accessory muscles and clear to auscultation bilaterally EFFORT & INSPECTION: Yes able to speak in complete sentences AUSCULTATION: clear to auscultation bilaterally Cardio: COMMON NORMALS: no JVD, regular rate, regular rhythm, S1 normal heart sound, S2 normal heart sound, no gallops, no clicks, no murmurs and no rub JUGULAR VENOUS DISTENTION: no JVD RATE: regular rate RHYTHM: regular rhythm HEART SOUNDS: S1 normal and S2 normal : COMMON NORMALS: Yes no CVA tenderness BLADDER/KIDNEY EXAM: Yes no CVA tenderness Back/Pelvis: COMMON NORMALS: no CVA tenderness, thoracic and lumbar spine normal to inspection, no thoracic nor lumbar tenderness and thoraco-lumbar ROM normal Extremity: COMMON NORMALS: normal to inspection, full ROM, normal capillary refill, no joint enlargement, no clubbing, cyanosis or edema and no calf tenderness Neuro: COMMON NORMALS: oriented x3, CN's II-XII intact bilaterally, moves all extremities, no focal motor deficits and no sensory deficits noted MENINGEAL SIGNS: Yes no meningeal signs Psych: COMMON NORMALS: mental status grossly normal, thought process normal, cooperative, affect normal, speech normal and activity/motor behavior normal APPEARANCE: Yes well kempt SPEECH: Yes normal speech THOUGHT PROCESS: normal thought process Skin: COMMON NORMALS: no rashes or lesions noted, skin turgor normal, no jaund ice, no petechiae and no mottling GENERAL SKIN EXAM: no rashes or lesions noted and turgor normal Course Vital Signs: Vital signs: Vital Signs Temperature 97.7 F 01/16/20 21:12 Pulse Rate 96 01/16/20 21:12 Respiratory Rate 18 01/16/20 21:12 Blood Pressure 132/94 01/16/20 21:12 Pulse Oximetry 96 01/16/20 21:12 MDM - Abdominal Pain MDM Narrative: Medical decision making narrative: Mr. Loyd has mildly elevated liver enzymes but also has stones in his gallbladder with a slightly thickened wall at 5 mm. He has a slightly elevated white count but his lipase is normal. His pain had subsided even before he came to the ER. I did discuss with him the concern I had of a gallbladder infection including his elevated liver enzymes and his thickened wall. I have recommended and offered to admit to the hospital for IV antibiotics and for a surgical consultation. Despite this and even warning the patient and his that if he does not have this addressed it could cause him severe infection that could result and even he refuses to stay and wants to sign out AGAINST MEDICAL ADVICE. I have warned him at length but despite this they want to go home. The does not seem to be happy with him but does support his decision. Ultimately I did let them know they were more than welcome to return should they change their mind. Lab Data: Labs: Lab Results 01/16/20 01/16/20 01/16/20 Range/Units 21:18 21:18 21:35 WBC 11.1 H (4.0-10.0) 10^3/ uL RBC 7.11 H (4.1-5.3) 10^6/u L Hgb 13.1 (11.7-16.6) g/dL Hct 43.1 (42.0-52.0) % MCV 60.6 L (80-94) fL MCH 18.4 L (28.0-34.0) pg MCHC 30.4 (30.0-36.0) g/dL RDW 20.7 H (12.1-15.1) % Plt Count 255 (130-400) 10^3/c mm Neut % (Auto) 78.0 % Lymph % (Auto) 11.4 % [place] % (Auto) 7.8 % Eos % (Auto) 1.1 % Baso % (Auto) 0.5 % Neut # (Auto) 8.7 H (1.8-7.7) 10^3/u L Lymph # (Auto) 1.3 (0.8-4.8) 10^3/u L [place] # (Auto) 0.9 (0.2-0.9) 10^3/u L Eos # (Auto) 0.1 (0.0-0.8) 10^3/u L Baso # (Auto) 0.1 (0.0-0.1) 10^3/u L Nucleated RBC % (a uto) 0.2 % Nucleated RBCs # 0.0 /100WBC Sodium 137 (136-145) mmol/L Potassium 4.1 (3.5-5.1) mmol/L Chloride 101 (98-107) mmol/L Carbon Dioxide 24 (22-29) mmol/L Anion Gap 16.1 (5-19) BUN 29 H (8-23) mg/dL Creatinine 0.9 (0.7-1.2) mg/dL GFR Calculation 84.4 L (90-130) mL/min Glucose 184 H (65-115) mg/dL Calcium 10.0 (8.5-10.5) mg/dL Total Bilirubin 0.6 (0.15-1.2) mg/dL AST 54 H (0-40) U/L ALT 74 H (0-41) U/L Alkaline Phosphata se 61 (40-130) IU/L Total Protein 6.8 (6.6-8.7) g/dL Albumin 3.3 L (3.5-5.2) g/dL Globulin 3.5 (1.3-4.6) g/dL Lipase 33 (13-60) U/L Urine Color Yellow (Yellow) Urine Appearance Clear (CLEAR) Urine pH 5 (5-7) Ur Specific Gravit y 1.015 (1.005-1.030) Urine Protein Neg (Negative) Urine Glucose (UA) Norm (Normal) Urine Ketones Negative (Negative) Urine Blood Neg (Negative) Urine Nitrate Negative (Negative) Urine Bilirubin Neg (NEGATIVE) Urine Urobilinogen Norm (Negative) mg/dL Ur Leukocyte Michelle ase Negative (Negative) Imaging Data ^: CT Abd/Pel: Radiologist's impression: [place] [address] CT Scan Report Signed Patient: Ry Loyd V Unit #: [id number] : 1955 Age/Sex: 64 / M ADM Date: 01/16/20 Loc: ER Room/Bed: Attending Dr: Ordering Provider/Ordering MD: Lorrie Cabral DO Date of Service: 01/16/20 Procedure(s): CT abdomen pelvis w con* [id number] Accession Number(s): [id number] Report Number: [id number] PROCEDURE INFORMATION: Exam: CT Abdomen And Pelvis With Contrast Exam date and time: 01/16/2020 11:14 PM Age: 64 years old Clinical indication: Abdominal pain; Generalized; Prior surgery; Surgery date: 6+ months; Surgery type: Kidney SX for stones TECHNIQUE: Imaging protocol: Computed tomography of the abdomen and pelvis with intravenous contrast. Total DLP: 2155.87 mGy-cm Radiation optimization: All CT scans at this facility use at least one of these dose optimization techniques: automated exposure control; mA and/or kV adjustment per patient size (includes targeted exams where dose is matched to clinical indication); or iterative reconstruction. Contrast material: VISI; Contrast volume: 95 ml; Contrast route: 20G; COMPARISON: CT Abdomen/Pelvis Renal [id number] 10/12/2019 5:50 AM FINDINGS: Liver: Normal. No mass. Gallbladder and bile ducts: Cholelithiasis. Pancreas: Normal. No ductal dilation. Spleen: Normal. No splenomegaly. Adrenals: Normal. No mass. Kidneys and ureters: Bilateral renal cysts. Bilateral punctate nonobstructing renal calyceal stones. Stomach and bowel: Diverticulosis without diverticulitis. Appendix: No evidence of appendicitis. Intraperitoneal space: Unremarkable. No free air. No significant fluid collection. Vasculature: Unremarkable. No abdominal aortic aneurysm. Lymph nodes: Unremarkable. No enlarged lymph nodes. Bladder: Unremarkable as visualized. Reproductive: Unremarkable as visualized. Bones/joints: Unremarkable. No acute fracture. Soft tissues: Umbilical hernia containing omentum without bowel. CT/CT abdomen pelvis w con* [id number] IMPRESSION: 1. Negative for focal acute inflammatory process. 2. Cholelithiasis. 3. Bilateral renal cysts. 4. Bilateral punctate nonobstructing renal calyceal stones. 5. Diverticulosis without diverticulitis. 6. Umbilical hernia containing omentum without bowel. Radiation Dose CTDIVOL = (mGy): DLP = 2155.87 (mGy-cm) Dictated By: Sherman Chadwick MD Signed By: Sherman Chadwick MD Signed Date/Time: 01/17/20112 DD/ 2 US: Radiologist's impression: Ultrasound gallbladder, technologist interpretation - gallstones present with slightly thickened wall at 5 mm. Ducts appear normal. Common bile duct normal. Kidney stones present within the kidney itself. Otherwise unremarkable. Discharge Plan Discharge Patient Disposition: Home, Self-Care Clinical Impression: Acute cholecystitis Abdominal pain Qualifiers: Abdominal location: right upper quadrant Qualified Code(s): R10.11 - Right upper quadrant pain Condition: Stable Prescriptions: New Augmentin 875-125 mg tablet 1 tab PO BID Qty: 20 RF: 0 No Action tamsulosin 0.4 mg capsule 0.4 mg PO DAILY RF: 0 citalopram [Celexa] 10 mg tablet 10 mg PO DAILY RF: 0 leflunomide 20 mg tablet 20 mg PO DAILY RF: 0 furosemide 40 mg tablet 40 mg PO QAM RF: 0 Lantus U-100 Insulin 100 unit/mL solution See Rx Instructions .ROUTE .COMPLEX RF: 0 insulin lispro [Humalog U-100 Insulin] 100 unit/mL solution See Rx Instructions .ROUTE .COMPLEX RF: 0 nitroglycerin [Nitrostat] 0.4 mg tablet, sublingual 0.4 mg SUBLINGUAL Q5M PRN (Reason: Chest Pain) RF: 0 carvedilol 12.5 mg Tablet 12.5 mg PO BID RF: 0 ondansetron HCl [Zofran] 4 mg Tablet 4 mg PO Q6H PRN (Reason: Nausea) RF: 0 prednisone 20 mg Tablet 10 mg PO DAILY RF: 0 diltiazem HCl 240 mg Capsule,Extended Release 24 Hr 240 mg PO DAILY RF: 0 warfarin 5 mg Tablet See Rx Instructions .ROUTE .COMPLEX RF: 0 cholecalciferol (vitamin D3) [Vitamin D3] 25 mcg (1,000 unit) Capsule 1,000 unit PO DAILY RF: 0 Florastor 250 mg Capsule 500 mg PO BID RF: 0 potassium chloride 20 mEq Tablet Extended Release 40 meq PO DAILY RF: 0 coenzyme Q10 125 mg Capsule 120 mg PO DAILY RF: 0 atorvastatin 40 mg PO QPM RF: 0 tramadol [Ultram] 50 mg Tablet 50 mg PO Q4H PRN (Reason: Pain) RF: 0 pantoprazole [Protonix] 40 mg Tablet,Delayed Release (Dr/Ec) 40 mg PO DAILY RF: 0 vitamin B complex [Super B-50 Complex] Capsule 1 cap PO DAILY RF: 0 Discharge Orders: Discharge Order (Routine); Ordered 01/17/20 Ordered By: Lorrie Cabral Referrals: Faustina Gonzalez NP [Primary Care Provider] - 1-3 days Patient Instructions: Cholecystitis (ED), Abdominal Pain (ED) Activity Restrictions/Additional Instructions: You're leaving AGAINST MEDICAL ADVICE and are at risk for or severe permanent disability by doing so. You are more than welcome to return at any time for recheck and for further evaluation and care suture change you change your mind. I have recommended and offered to do a complete evaluation including admission for your gallbladder inflammation but you have refused. If you change your mind or your symptoms change or worsen please return to the ER immediately for recheck. You are leaving against my advice as this is a threat to your health and life if not addressed but if you change your mind you are free to return at any time. Stand Alone Forms: Against Medical Advice Discharge Date/Time: 01/17/20 03:18 Coding Level of Care Code ED Tricot Knitting Machine Operator for Chg Fwd Exam Comprehensive The documentation recorded by the rameshibJose staley Ashley, accurately reflects the service I personally performed and the decisions made by Misha castle Eli N Jan 16, 2020 21:01
--- NOTE | 2020-01-16 21:32 | US_ITS ---
WS: [id number] ULTRASOUND ABDOMEN LIMITED CLINICAL INFORMATION: Pain COMPARISON: None. FINDINGS: Liver Size: Normal. Craniocaudal length: 11.6 cm. Echogenicity: Normal. Surface nodularity: None. Mass (size and location): None. Common bile duct not well seen Gallbladder Cholelithiasis Gallstones: Present Gallbladder sludge: None. Gallbladder wall thickenin.3 Pericholecystic fluid: None. Sonographic Jarrett sign: Absent. Pancreas Normal as visualized. Right kidney: Nonobstructing renal parenchymal calculus measuring 16 mm Hydronephrosis: None. Size: 14.2 cm x 5.9 cm x 6.3 cm. Abdominal aorta and IVC Visualized portions are normal. Ascites: None. US/US gall bladder [id number] IMPRESSION: 1. Cholelithiasis with mild gallbladder wall thickening. No pericholecystic fl uid. 2. No hydronephrosis in right kidney. Nonobstructing renal parenchymal calculu s measuring 16 mm.
[2020-01-16 21:36] LABS: Alanine Aminotransferase 74 U/L (0-41); Albumin Level 3.3 g/dL (3.5-5.2); Alkaline Phosphatase 61 IU/L (40-130); Anion Gap 16.1 (5-19); Aspartate Amino Transferase 54 U/L (0-40); Blood Urea Nitrogen 29 mg/dL (8-23); Carbon Dioxide 24 mmol/L (22-29); Chloride 101 mmol/L (98-107); Globulin 3.5 g/dL (1.3-4.6); Glomerular Filtration Rate 84.4 mL/min (90-130); Glucose 184 mg/dL (65-115); Lipase 33 U/L (13-60); Potassium 4.1 mmol/L (3.5-5.1); Sodium 137 mmol/L (136-145); Total Bilirubin 0.6 mg/dL (0.15-1.2); Total Protein 6.8 g/dL (6.6-8.7)
[2020-01-16 21:42] LABS: Slide Review Slide Review Perform
--- NOTE | 2020-01-16 21:54 | PC.NURSE ---
Received patient to er with complaint of upper right abdomen pain. Patient states pain is gone now but was sharp earlier.
[2020-01-16 22:03] LABS: Bilirubin Urine Neg (NEGATIVE); Blood Urine Neg (Negative); Glucose Urine UA Norm (Normal); Ketones Urine Negative (Negative); Leukocyte Esterase Urine Negative (Negative); Nitrate Urine Negative (Negative); Protein Urine Neg (Negative); Specific Gravity, Urine 1.015 (1.005-1.030); Urine Appearance Clear (CLEAR); Urine Color Yellow (Yellow); Urobilinogen Urine Norm (Negative); pH Urine 5 (5-7)
[2020-01-16 22:04] LABS: Add Urine Culture? No
--- NOTE | 2020-01-16 22:38 | CTR_ITS ---
PROCEDURE INFORMATION: Exam: CT Abdomen And Pelvis With Contrast Exam date and time: 01/16/2020 11:14 PM Age: 64 years old Clinical indication: Abdominal pain; Generalized; Prior surgery; Surgery date: 6+ months; Surgery type: Kidney SX for stones TECHNIQUE: Imaging protocol: Computed tomography of the abdomen and pelvis with intravenous contrast. Total DLP: 2155.87 mGy-cm Radiation optimization: All CT scans at this facility use at least one of these dose optimization techniques: automated exposure control; mA and/or kV adjustment per patient size (includes targeted exams where dose is matched to clinical indication); or iterative reconstruction. Contrast material: VISI; Contrast volume: 95 ml; Contrast route: 20G; COMPARISON: CT Abdomen/Pelvis Renal [id number] 10/12/2019 5:50 AM FINDINGS: Liver: Normal. No mass. Gallbladder and bile ducts: Cholelithiasis. Pancreas: Normal. No ductal dilation. Spleen: Normal. No splenomegaly. Adrenals: Normal. No mass. Kidneys and ureters: Bilateral renal cysts. Bilateral punctate nonobstructing renal calyceal stones. Stomach and bowel: Diverticulosis without diverticulitis. Appendix: No evidence of appendicitis. Intraperitoneal space: Unremarkable. No free air. No significant fluid collection. Vasculature: Unremarkable. No abdominal aortic aneurysm. Lymph nodes: Unremarkable. No enlarged lymph nodes. Bladder: Unremarkable as visualized. Reproductive: Unremarkable as visualized. Bones/joints: Unremarkable. No acute fracture. Soft tissues: Umbilical hernia containing omentum without bowel. CT/CT abdomen pelvis w con* [id number] IMPRESSION: 1. Negative for focal acute inflammatory process. 2. Cholelithiasis. 3. Bilateral renal cysts. 4. Bilateral punctate nonobstructing renal calyceal stones. 5. Diverticulosis without diverticulitis. 6. Umbilical hernia containing omentum without bowel. Radiation Dose CTDIVOL = (mGy): DLP = 2155.87 (mGy-cm)
[2020-01-16] MEDS: famotidine 20 mg/2 mL INJ 40 MG IVP (23:55)
[2020-01-16] MEDS: hydrocortisone 100 mg/2 mL SDV IVP (23:55)
[2020-01-16] MEDS: diphenhydrAMINE 50 mg/mL SDV 1mL 25 MG IVP (23:56)
[2020-01-17] MEDS: iodixanol 320 mg/mL 100mL Btl IV (00:32)
[2020-01-17] MEDS: piperacillin-tazobactam 3.375 GM in sodium chloride 0.9% (plus) 50 ML IV (02:05)
== END 2020-01-17 03:18 | disposition home or self-care (01) ==
PROVIDERS: Emergency Provider Emergency Medicine; Family Provider Nurse Practitioner Family; PCP Nurse Practitioner Family
DX: K80.10 Calculus of gallbladder with chronic cholecystitis without obstruction (principal); Z53.29 Procedure and treatment not carried out because of patient's decision for other reasons
CPT/HCPCS: 74177; 76705; 80053; 81001; 83690; 85025; 96361; 96365; 96374; 96375; 99282; 99283; 99284; J1200; J1720; J2543; J3490; J7030; Q9967

== ENCOUNTER 2020-01-19 06:00 | Outpatient (RCR) | payer MEDICARE, OTHER, SELFPAY | END 2020-02-18 23:59 | disposition home or self-care (01) | LOC: MR3 06:00 | PROVIDERS: Family Provider Nurse Practitioner Family; PCP Nurse Practitioner Family; Visit Provider Physical Medicine & Rehabilitation | DX: I69.320 Aphasia following cerebral infarction (principal); I69.391 Dysphagia following cerebral infarction; I69.315 Cognitive social or emotional deficit following cerebral infarction; I69.351 Hemiplegia and hemiparesis following cerebral infarction affecting right dominant side; M62.81 Muscle weakness (generalized) | CPT/HCPCS: 92507; 92526; 97110; 97116; 97530 ==

== ENCOUNTER → 2020-06-09 09:59 | Outpatient (BNVA) | payer MEDICARE, OTHER, SELFPAY | PROVIDERS: Family Provider Nurse Practitioner Family; PCP Nurse Practitioner Family; Visit Provider Internal Medicine | DX: M06.9 Rheumatoid arthritis, unspecified (principal); M10.9 Gout, unspecified; Z79.52 Long term (current) use of systemic steroids; Z79.899 Other long term (current) drug therapy | CPT/HCPCS: 36415; 80053; 84550; 85025; 85651; 86140; 99213 ==

== ENCOUNTER 2020-07-21 06:00 | Outpatient (RCR) | payer MEDICARE, OTHER, SELFPAY | END 2020-08-19 23:59 | disposition home or self-care (01) | LOC: MPT 06:00 | PROVIDERS: PCP Nurse Practitioner Family; Referring Provider Nurse Practitioner Family; Visit Provider Nurse Practitioner Family | DX: I69.320 Aphasia following cerebral infarction (principal); F03.90 Unspecified dementia, unspecified severity, without behavioral disturbance, psychotic disturbance, mood disturbance, and anxiety | CPT/HCPCS: 97110; 97116; 97162 ==

== ENCOUNTER 2020-07-21 11:24 | Inpatient (IN) | payer MEDICARE, OTHER, SELFPAY ==
[2020-07-21] VITALS (14 sets, daily range): BP systolic 96–138; BP diastolic 56–93; PULSE 72–93; RESP 17–22; TEMP 36.4–36.9; O2SAT 91–100; BMI 43.3
--- NOTE | 2020-07-21 11:29 | CT_ITS ---
WS: [id number] CT HEAD NONCONTRAST HISTORY: AMS TECHNIQUE: Contiguous axial imaging performed through the brain in 2.5 mm imaging. Bone and soft tiss ue windows. Sagittal and coronal reformats reviewed. All CT scans at [facility] use at ast one of these dose optimization techniques: automated exposure control; mA and/or kV adjustment pe r patient size (includes targeted exams where dose is matched to clinical indication); or iterative r econstruction. DLP: 781.84 mGy.cm COMPARISON: 01/06/2020 No acute intracranial hemorrhage, midline shift or mass effect. Mild symmetric atrophy. Cortical areas of decreased attenuation in the parietal lobes bilaterally and also the frontal lobes are stable. Small lacunar infarcts in the basal ganglia and chronic ischemic disease. Volume loss and encephalomalacia in the posterior RIGHT cerebellum. Ventricles: Normal size with no hydrocephalus. Paranasal sinuses: As visualized are clear. Mastoid air cells: Well pneumatized. Calvarium and scalp: Skull is intact with no soft tissue edema or swelling. Moderate atherosclerosis intracranial carotid arteries. CT/CT head wo con* [id number] IMPRESSION: 1. No acute intracranial hemorrhage or edema. 2. 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 No significant progression .
--- NOTE | 2020-07-21 11:29 | XRR_ITS ---
PROCEDURE INFORMATION: Exam: XR Chest, 1 View Exam date and time: 07/21/2020 12:24 PM Age: 64 years old Clinical indication: Other: AMS; Patient HX: No chest complaints TECHNIQUE: Imaging protocol: XR of the chest Views: 1 view. COMPARISON: CR Chest 1 [place] [id number] 10/12/2019 5:53 AM FINDINGS: Lungs: No acute airspace disease. Pleural space: No pleural effusion. Heart/Mediastinum: Accentuation of the cardiac silhouette by epicardial fat. Vasculature: Aortic valve stent. Bones/joints: Mild degenerative change. XR/XR chest 1V portable [id number] IMPRESSION: No acute airspace or pleural disease.
--- NOTE | 2020-07-21 11:32 | ECG_ITS ---
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 Measurements Intervals [place] Cbc Base Rate: 68 P: NH: -1 QRS: -11 QRSD: 80 T: 194 QT: 367 QTc: 393 Interpretive Statements ATRIAL FIBRILLATION MINIMAL VOLTAGE CRITERIA FOR LVH, CONSIDER NORMAL VARIANT ST DEVIATION AND MODERATE T-WAVE ABNORMALITY, CONSIDER ANTEROLATERAL ISCHEMIA Compared to ECG 01/06/2020 23:05:10 No significant changes Electronically Signed On 07-21-2020 20:40:35 CDT by Cassy Monreal M.D. [id number]
--- NOTE | 2020-07-21 11:45 | ED_ITS ---
HPI - General Adult General: Chief complaint: Altered Mental Status Stated complaint: CHIOLLS, FEVER, WEAKNESS Time Seen by Provider: 07/21/20 11:29 Source: patient and EMS Mode of arrival: EMS Limitations: altered mental status History of Present Illness: HPI narrative: Ry is a 64-year-old male brought in by EMS with report of increasing generalized weakness and fever. Is also more confused than normal according to EMS. Patient is confused here with a GCS of 14. EMS states family informed them the symptoms have been going on through the weekend, this would be approximately 4 days. The highest his temperature has been at home was 100.8. There is not been reported cough, congestion, urinary symptoms but the patient did have a diarrhea stool while on the EMS cot. On palpation the patient seems to have abdominal discomfort but denies any abdominal discomfort presently. Patient is deemed an unreliable historian as he tends to have pain when I press on his abdomen but denies any pain. Further information will be taken from old charts. Review of Systems General: Reports: ROS unobtainable due to mental status (Pertinent positive and negative review of systems that can be obtained through EMS are noted in HPI) PFSH ED PFSH: Medical History (Updated 07/21/20 @ 14:28 by Lorrie Cabral) Atrial fibrillation Bilateral renal masses CHF (congestive heart failure) Chronic use of steroids CVA (cerebral vascular accident) Diabetes Dyslipidemia Edema Endocarditis Essential hypertension Gout Hx of [place] spotted fever Ischemic cardiomyopathy Left ventricular hypertrophy Obesity AJAY (obstructive sleep apnea) Pulmonary HTN Renal calculi Rheumatoid arthritis Rheumatoid arthritis Thalassemia Family History Mother Stroke Father Myocardial infarction Other CAD (coronary artery disease) Chronic kidney disease (CKD) Diabetes Hypertension Social History Smoking and tobacco status: former smoker Alcohol intake: former Marital status: History of recent travel: No Physical Exam Const: GENERAL APPEARANCE: cooperative, in distress (Mild respiratory distress) and lethargic NUTRITIONAL APPEARANCE: obese ORIENTATION/CONSCIOUSNESS: Yes awake, Yes oriented to person, Yes confused and Yes lethargic HENMT: COMMON NORMALS: normocephalic, atraumatic, external ears normal, EAC's normal and Normal external nose present HEAD & SCALP: normal to inspection, normocephalic and atraumatic FACE & SINUS: normal facial exam and face symmetric NOSE: Normal external nose present and Normal nares present EXTERNAL EAR: Yes external ears normal EXTERNAL AUDITORY CANAL: EAC's normal MOUTH: Normal oral and palatal mucosa present, lip normal and tongue normal Eye: COMMON NORMALS: Equal, round and reactive pupils present and conjunctivae normal GENERAL EYE: appearance normal, both eyes and all related structures ALIGNMENT: Yes alignment normal PERIORBITAL: periorbital findings normal EYELID: eyelids normal CONJUNCTIVA: Yes conjunctivae normal SCLERA: sclerae normal PUPIL: Yes Equal, round and reactive pupils present Neck/C-Spine: COMMON NORMALS: full ROM, no lymphadenopathy, supple, no meningeal signs and no JVD GENERAL: Yes normal visual inspection and Yes trachea midline Chest: COMMONS NORMALS: normal inspection of the chest and normal palpation of entire chest wall Resp: EFFORT & INSPECTION: Yes tachypneic, Yes respiratory distress, Yes uses accessory muscles and Yes audible wheezes AUSCULTATION: rhonchi Cardio: COMMON NORMALS: no JVD, regular rate, regular rhythm, S1 normal heart sound present and S2 normal heart sound present RATE: regular rate RHYTHM: regular rhythm HEART SOUNDS: S1 normal heart sound present, S2 normal heart sound present, no click, no gallops, no murmurs, no rubs and abnormal split S2 GI: COMMON NORMALS: Soft to palpation and No hepatosplenomegaly present PALPATION: Yes Soft to palpation, No Guarding due to palpation present (GI), No Rigid due to palpation, Yes No hepatosplenomegaly present, No Hernia present, No Palpable mass present and No Pulsatile mass present RECTAL EXAM: Yes heme negative stool : COMMON NORMALS: Yes no CVA tenderness BLADDER/KIDNEY EXAM: Yes no CVA tenderness Back/Pelvis: COMMON NORMALS: no CVA tenderness, thoracic and lumbar spine normal to inspection, no thoracic nor lumbar tenderness and thoraco-lumbar ROM normal Extremity: COMMON NORMALS: normal to inspection, full ROM, capillary refill normal, no joint enlargement, no clubbing, cyanosis or edema and no calf tenderness Neuro: ALTAGRACIA COMA SCALE: document GCS findings [place] coma scale eye opening: Spontaneous Altagracia coma scale verbal response: Confused Altagracia coma scale motor response: Obey commands [place] coma scale total score: 14 COMMON NORMALS: CN's II-XII intact bilaterally, moves all extremities, no focal motor deficits and no sensory deficits noted SENSORIUM/ORIENTATION: Yes oriented to person and Yes lethargic MENINGEAL SIGNS: Yes no meningeal signs SPEECH: speech normal Skin: COMMON NORMALS: no rashes or lesions noted, turgor normal, no jaundice, no petechiae and no mottling GENERAL SKIN EXAM: no rashes or lesions noted and turgor normal Course Vital Signs: Vital signs: Vital Signs Temperature 98.3 F 07/21/20 12:34 Pulse Rate 72 07/21/20 13:25 Respiratory Rate 18 07/21/20 13:25 Blood Pressure 116/68 07/21/20 13:25 Pulse Oximetry 95 07/21/20 13:25 MDM - General Adult MDM Narrative: Medical decision making narrative: Ry is a 64-year-old male who comes in with altered mental status, recent fever, diarrhea and abdominal pain. CT scan of his head is unremarkable. CT scan abdomen pelvis reveals pyelonephritis but this does not correlate clinically as the patient's urinalysis is clear. The patient has no more labored breathing after oxygen and breathing treatments. Lasix has been given IV as well. Patient's troponin is markedly elevated but he has had an elevated BNP before. Patient was deemed to be low risk for PE as he is on Coumadin but Dr. Downing believes it is not therapeutic and was a dose of Lovenox given and she plans to CTA once his kidneys have had a chance to recover from the IV dye given today. The Lovenox dose will be given here in the ER. Clinically the patient appears improved. His EKG is abnormal but he is denying any chest pain. He will be admitted to the [facility]SU and further care be dictated by Dr. Downing. Lab Data: Attestation: I reviewed the patient's lab results. Labs: Lab Results 07/21/20 07/21/20 07/21/20 Range/Units 11:50 11:50 11:50 WBC 14.5 H (4.0-10.0) 10^3/ uL RBC 6.66 H (4.1-5.3) 10^6/u L Hgb 12.8 (11.7-16.6) g/dL Hct 43.1 (42.0-52.0) % MCV 64.7 L (80-94) fL MCH 19.2 L (28.0-34.0) pg MCHC 29.7 L (30.0-36.0) g/dL RDW 18.8 H (12.1-15.1) % Plt Count 168 (130-400) 10^3/c mm MPV Not Reportable Neut % (Auto) 87.5 % Lymph % (Auto) 5.5 % [place] % (Auto) 5.5 % Eos % (Auto) 0.5 % Baso % (Auto) 0.7 % Neut # (Auto) 12.65 H (1.8-7.7) 10^3/u L Lymph # (Auto) 0.8 (0.8-4.8) 10^3/u L [place] # (Auto) 0.8 (0.2-0.9) 10^3/u L Eos # (Auto) 0.1 (0.0-0.8) 10^3/u L Baso # (Auto) 0.1 (0.0-0.1) 10^3/u L Nucleated RBC % (a uto) 0 % Nucleated RBCs # 0.0 /100WBC PT (12.1-14.9) SECO NDS INR (0.8-1.2) Specimen Type Sample Site ABG pH (7.35-7.45) ABG pCO2 (35-45) mmHg ABG pO2 (80.0-100.0) mmH g ABG HCO3 (22-26) mmol/L ABG O2 Saturation ABG Base Excess (-2.0-2.0) mmol/ L Matteo Test A-a O2 Gradient (5-10) mmHg Hematocrit (42-52) % Hgb O2 Saturation (95-100) % Carboxyhemoglobin (0.4-20.1) %THgb Methemoglobin (0.4-1.5) % Total Hemoglobin (14-18) g/dL Ionized Calcium (1.1-1.4) mmol/L O2 Delivery Device O2 Liters/Min % FiO2 % Mill Controller ID Sodium 140 (136-145) mmol/L Potassium 4.3 (3.5-5.1) mmol/L Chloride 103 (98-107) mmol/L Carbon Dioxide 22 (22-29) mmol/L Anion Gap 19.3 H (5-19) BUN 23 (8-23) mg/dL Creatinine 1.0 (0.7-1.2) mg/dL GFR Calculation 74.8 L (90-130) mL/min Glucose 202 H (65-115) mg/dL Calculated Osmolal ity 292 (285-295) mOsm/k g Lactic Acid (0.5-2.2) mmol/L Calcium 9.3 (8.5-10.5) mg/dL Magnesium 1.8 (1.7-2.3) mg/dL Total Bilirubin 1.1 (0.15-1.2) mg/dL AST 20 (0-40) U/L ALT 32 (0-41) U/L Alkaline Phosphata se 55 (40-130) IU/L Ammonia 33 (16-60) umol/L Creatine Kinase 42 (39-308) U/L Troponin T Baselin e (0-15) ng/L NT-Pro-B Natriuret Pep 1516 H (0-125) pg/mL Total Protein 6.1 L (6.6-8.7) g/dL Albumin 3.6 (3.5-5.2) g/dL Globulin 2.5 (1.3-4.6) g/dL Lipase 19 (13-60) U/L TSH 1.62 (0.27-4.20) uIU/ mL Urine Color (Yellow) Urine Appearance (CLEAR) Urine pH (5-7) Ur Specific Gravit y (1.005-1.030) Urine Protein (Negative) Urine Glucose (UA) (Normal) Urine Ketones (Negative) Urine Blood (Negative) Urine Nitrate (Negative) Urine Bilirubin (NEGATIVE) Urine Urobilinogen (Negative) mg/dL Ur Leukocyte Michelle ase (Negative) Urine RBC (0-2) /hpf Urine WBC (0-5) /hpf Ur Squamous Epith Cells (0-5) Amorphous Sediment Urine Bacteria (NONE) Hyaline Casts Urine Opiates Scre en (Negative) ng/mL Ur Barbiturates Sc reen (Negative) ng/mL Ur Phencyclidine S crn (Negative) ng/mL Ur Amphetamines Sc reen (Negative) ng/mL U Benzodiazepines Scrn (Negative) ng/mL Urine Cocaine Scre en (Negative) ng/mL U Marijuana (THC) Screen (Negative) ng/mL Ethyl Alcohol < 10 (0-10) mg/dL Serum Ketones Negative (Negative) Influenza Type A A g (Negative) Influenza Type B A g (Negative) SARS-CoV-2 Ag (Rap id) (Negative) 07/21/20 07/21/20 07/21/20 Range/Units 11:50 11:50 11:50 WBC (4.0-10.0) 10^3/ uL RBC (4.1-5.3) 10^6/u L Hgb (11.7-16.6) g/dL Hct (42.0-52.0) % MCV (80-94) fL MCH (28.0-34.0) pg MCHC (30.0-36.0) g/dL RDW (12.1-15.1) % Plt Count (130-400) 10^3/c mm MPV Neut % (Auto) % Lymph % (Auto) % [place] % (Auto) % Eos % (Auto) % Baso % (Auto) % Neut # (Auto) (1.8-7.7) 10^3/u L Lymph # (Auto) (0.8-4.8) 10^3/u L [place] # (Auto) (0.2-0.9) 10^3/u L Eos # (Auto) (0.0-0.8) 10^3/u L Baso # (Auto) (0.0-0.1) 10^3/u L Nucleated RBC % (a uto) % Nucleated RBCs # /100WBC PT 21.80 H (12.1-14.9) SECO NDS INR 1.83 H (0.8-1.2) Specimen Type Sample Site ABG pH (7.35-7.45) ABG pCO2 (35-45) mmHg ABG pO2 (80.0-100.0) mmH g ABG HCO3 (22-26) mmol/L ABG O2 Saturation ABG Base Excess (-2.0-2.0) mmol/ L Matteo Test A-a O2 Gradient (5-10) mmHg Hematocrit (42-52) % Hgb O2 Saturation (95-100) % Carboxyhemoglobin (0.4-20.1) %THgb Methemoglobin (0.4-1.5) % Total Hemoglobin (14-18) g/dL Ionized Calcium (1.1-1.4) mmol/L O2 Delivery Device O2 Liters/Min % FiO2 % Mill Controller ID Sodium (136-145) mmol/L Potassium (3.5-5.1) mmol/L Chloride (98-107) mmol/L Carbon Dioxide (22-29) mmol/L Anion Gap (5-19) BUN (8-23) mg/dL Creatinine (0.7-1.2) mg/dL GFR Calculation (90-130) mL/min Glucose (65-115) mg/dL Calculated Osmolal ity (285-295) mOsm/k g Lactic Acid 2.7 H (0.5-2.2) mmol/L Calcium (8.5-10.5) mg/dL Magnesium (1.7-2.3) mg/dL Total Bilirubin (0.15-1.2) mg/dL AST (0-40) U/L ALT (0-41) U/L Alkaline Phosphata se (40-130) IU/L Ammonia (16-60) umol/L Creatine Kinase (39-308) U/L Troponin T Baselin e 131 H* (0-15) ng/L NT-Pro-B Natriuret Pep (0-125) pg/mL Total Protein (6.6-8.7) g/dL Albumin (3.5-5.2) g/dL Globulin (1.3-4.6) g/dL Lipase (13-60) U/L TSH (0.27-4.20) uIU/ mL Urine Color (Yellow) Urine Appearance (CLEAR) Urine pH (5-7) Ur Specific Gravit y (1.005-1.030) Urine Protein (Negative) Urine Glucose (UA) (Normal) Urine Ketones (Negative) Urine Blood (Negative) Urine Nitrate (Negative) Urine Bilirubin (NEGATIVE) Urine Urobilinogen (Negative) mg/dL Ur Leukocyte Michelle ase (Negative) Urine RBC (0-2) /hpf Urine WBC (0-5) /hpf Ur Squamous Epith Cells (0-5) Amorphous Sediment Urine Bacteria (NONE) Hyaline Casts Urine Opiates Scre en (Negative) ng/mL Ur Barbiturates Sc reen (Negative) ng/mL Ur Phencyclidine S crn (Negative) ng/mL Ur Amphetamines Sc reen (Negative) ng/mL U Benzodiazepines Scrn (Negative) ng/mL Urine Cocaine Scre en (Negative) ng/mL U Marijuana (THC) Screen (Negative) ng/mL Ethyl Alcohol (0-10) mg/dL Serum Ketones (Negative) Influenza Type A A g (Negative) Influenza Type B A g (Negative) SARS-CoV-2 Ag (Rap id) (Negative) 07/21/20 07/21/20 07/21/20 Range/Units 11:50 11:50 12:08 WBC (4.0-10.0) 10^3/ uL RBC (4.1-5.3) 10^6/u L Hgb (11.7-16.6) g/dL Hct (42.0-52.0) % MCV (80-94) fL MCH (28.0-34.0) pg MCHC (30.0-36.0) g/dL RDW (12.1-15.1) % Plt Count (130-400) 10^3/c mm MPV Neut % (Auto) % Lymph % (Auto) % [place] % (Auto) % Eos % (Auto) % Baso % (Auto) % Neut # (Auto) (1.8-7.7) 10^3/u L Lymph # (Auto) (0.8-4.8) 10^3/u L [place] # (Auto) (0.2-0.9) 10^3/u L Eos # (Auto) (0.0-0.8) 10^3/u L Baso # (Auto) (0.0-0.1) 10^3/u L Nucleated RBC % (a uto) % Nucleated RBCs # /100WBC PT (12.1-14.9) SECO NDS INR (0.8-1.2) Specimen Type Arterial Sample Site Radial, left ABG pH 7.42 (7.35-7.45) ABG pCO2 40.4 (35-45) mmHg ABG pO2 321.0 H (80.0-100.0) mmH g ABG HCO3 26.2 H (22-26) mmol/L ABG O2 Saturation 98.0 ABG Base Excess 1.5 (-2.0-2.0) mmol/ L Matteo Test Pos A-a O2 Gradient 43.1 H (5-10) mmHg Hematocrit 39.1 L (42-52) % Hgb O2 Saturation 97.3 (95-100) % Carboxyhemoglobin < 0.0 L (0.4-20.1) %THgb Methemoglobin 1.2 (0.4-1.5) % Total Hemoglobin 12.8 L (14-18) g/dL Ionized Calcium 1.3 (1.1-1.4) mmol/L O2 Delivery Device Nrb O2 Liters/Min 15.0 % FiO2 100.0 % Mill Controller ID Ed Sodium 140.0 (136-145) mmol/L Potassium 4.2 (3.5-5.1) mmol/L Chloride (98-107) mmol/L Carbon Dioxide (22-29) mmol/L Anion Gap (5-19) BUN (8-23) mg/dL Creatinine (0.7-1.2) mg/dL GFR Calculation (90-130) mL/min Glucose 198.0 H (65-115) mg/dL Calculated Osmolal ity (285-295) mOsm/k g Lactic Acid (0.5-2.2) mmol/L Calcium (8.5-10.5) mg/dL Magnesium (1.7-2.3) mg/dL Total Bilirubin (0.15-1.2) mg/dL AST (0-40) U/L ALT (0-41) U/L Alkaline Phosphata se (40-130) IU/L Ammonia (16-60) umol/L Creatine Kinase (39-308) U/L Troponin T Baselin e (0-15) ng/L NT-Pro-B Natriuret Pep (0-125) pg/mL Total Protein (6.6-8.7) g/dL Albumin (3.5-5.2) g/dL Globulin (1.3-4.6) g/dL Lipase (13-60) U/L TSH (0.27-4.20) uIU/ mL Urine Color Yellow (Yellow) Urine Appearance Clear (CLEAR) Urine pH 7 (5-7) Ur Specific Gravit y 1.015 (1.005-1.030) Urine Protein Neg (Negative) Urine Glucose (UA) Norm (Normal) Urine Ketones Negative (Negative) Urine Blood Trace H (Negative) Urine Nitrate Negative (Negative) Urine Bilirubin Neg (NEGATIVE) Urine Urobilinogen Norm (Negative) mg/dL Ur Leukocyte Michelle ase Negative (Negative) Urine RBC 0-4 H (0-2) /hpf Urine WBC None (0-5) /hpf Ur Squamous Epith Cells 0-4 H (0-5) Amorphous Sediment Trace Urine Bacteria 1+ H (NONE) Hyaline Casts 0-4 H Urine Opiates Scre en Negative (Negative) ng/mL Ur Barbiturates Sc reen Negative (Negative) ng/mL Ur Phencyclidine S crn Negative (Negative) ng/mL Ur Amphetamines Sc reen Negative (Negative) ng/mL U Benzodiazepines Scrn Negative (Negative) ng/mL Urine Cocaine Scre en Negative (Negative) ng/mL U Marijuana (THC) Screen Negative (Negative) ng/mL Ethyl Alcohol (0-10) mg/dL Serum Ketones (Negative) Influenza Type A A g (Negative) Influenza Type B A g (Negative) SARS-CoV-2 Ag (Rap id) (Negative) 07/21/20 07/21/20 Range/Units 12:10 12:10 WBC (4.0-10.0) 10^3/ uL RBC (4.1-5.3) 10^6/u L Hgb (11.7-16.6) g/dL Hct (42.0-52.0) % MCV (80-94) fL MCH (28.0-34.0) pg MCHC (30.0-36.0) g/dL RDW (12.1-15.1) % Plt Count (130-400) 10^3/c mm MPV Neut % (Auto) % Lymph % (Auto) % [place] % (Auto) % Eos % (Auto) % Baso % (Auto) % Neut # (Auto) (1.8-7.7) 10^3/u L Lymph # (Auto) (0.8-4.8) 10^3/u L [place] # (Auto) (0.2-0.9) 10^3/u L Eos # (Auto) (0.0-0.8) 10^3/u L Baso # (Auto) (0.0-0.1) 10^3/u L Nucleated RBC % (a uto) % Nucleated RBCs # /100WBC PT (12.1-14.9) SECO NDS INR (0.8-1.2) Specimen Type Sample Site ABG pH (7.35-7.45) ABG pCO2 (35-45) mmHg ABG pO2 (80.0-100.0) mmH g ABG HCO3 (22-26) mmol/L ABG O2 Saturation ABG Base Excess (-2.0-2.0) mmol/ L Matteo Test A-a O2 Gradient (5-10) mmHg Hematocrit (42-52) % Hgb O2 Saturation (95-100) % Carboxyhemoglobin (0.4-20.1) %THgb Methemoglobin (0.4-1.5) % Total Hemoglobin (14-18) g/dL Ionized Calcium (1.1-1.4) mmol/L O2 Delivery Device O2 Liters/Min % FiO2 % Mill Controller ID Sodium (136-145) mmol/L Potassium (3.5-5.1) mmol/L Chloride (98-107) mmol/L Carbon Dioxide (22-29) mmol/L Anion Gap (5-19) BUN (8-23) mg/dL Creatinine (0.7-1.2) mg/dL GFR Calculation (90-130) mL/min Glucose (65-115) mg/dL Calculated Osmolal ity (285-295) mOsm/k g Lactic Acid (0.5-2.2) mmol/L Calcium (8.5-10.5) mg/dL Magnesium (1.7-2.3) mg/dL Total Bilirubin (0.15-1.2) mg/dL AST (0-40) U/L ALT (0-41) U/L Alkaline Phosphata se (40-130) IU/L Ammonia (16-60) umol/L Creatine Kinase (39-308) U/L Troponin T Baselin e (0-15) ng/L NT-Pro-B Natriuret Pep (0-125) pg/mL Total Protein (6.6-8.7) g/dL Albumin (3.5-5.2) g/dL Globulin (1.3-4.6) g/dL Lipase (13-60) U/L TSH (0.27-4.20) uIU/ mL Urine Color (Yellow) Urine Appearance (CLEAR) Urine pH (5-7) Ur Specific Gravit y (1.005-1.030) Urine Protein (Negative) Urine Glucose (UA) (Normal) Urine Ketones (Negative) Urine Blood (Negative) Urine Nitrate (Negative) Urine Bilirubin (NEGATIVE) Urine Urobilinogen (Negative) mg/dL Ur Leukocyte Michelle ase (Negative) Urine RBC (0-2) /hpf Urine WBC (0-5) /hpf Ur Squamous Epith Cells (0-5) Amorphous Sediment Urine Bacteria (NONE) Hyaline Casts Urine Opiates Scre en (Negative) ng/mL Ur Barbiturates Sc reen (Negative) ng/mL Ur Phencyclidine S crn (Negative) ng/mL Ur Amphetamines Sc reen (Negative) ng/mL U Benzodiazepines Scrn (Negative) ng/mL Urine Cocaine Scre en (Negative) ng/mL U Marijuana (THC) Screen (Negative) ng/mL Ethyl Alcohol (0-10) mg/dL Serum Ketones (Negative) Influenza Type A A g Negative (Negative) Influenza Type B A g Negative (Negative) SARS-CoV-2 Ag (Rap id) Negative (Negative) Imaging Data^: CXR: Attestation: I personally reviewed and interpreted this imaging study as follows: My impression: No acute cardiopulmonary findings. CT Head: Radiologist's impression: [place] [address] CT Scan Report Signed Patient: Ry Loyd V Unit #: [id number] : 1955 Age/Sex: 64 / M ADM Date: 07/21/20 Loc: ER Room/Bed: Attending Dr: Ordering Provider/Ordering MD: Lorrie Cabral DO Date of Service: 07/21/20 Procedure(s): CT head wo con* [id number] Accession Number(s): [id number] Report Number: [id number] WS: [id number] CT HEAD NONCONTRAST HISTORY: AMS TECHNIQUE: Contiguous axial imaging performed through the brain in 2.5 mm imaging. Bone and soft tissue windows. Sagittal and coronal reformats reviewed. All CT scans at [facility] use at least one of these dose optimization techniques: automated exposure control; mA and/or kV adjustment per patient size (includes targeted exams where dose is matched to clinical indication); or iterative reconstruction. DLP: 781.84 mGy.cm COMPARISON: 01/06/2020 No acute intracranial hemorrhage, midline shift or mass effect. Mild symmetric atrophy. Cortical areas of decreased attenuation in the parietal lobes bilaterally and also the frontal lobes are stable. Small lacunar infarcts in the basal ganglia and chronic isch emic disease. Volume loss and encephalomalacia in the posterior RIGHT cerebellum. Ventricles: Normal size with no hydrocephalus. Paranasal sinuses: As visualized are clear. Mastoid air cells: Well pneumatized. Calvarium and scalp: Skull is intact with no soft tissue edema or swelling. Moderate atherosclerosis intracranial carotid arteries. CT/CT head wo con* [id number] IMPRESSION: 1. No acute intracranial hemorrhage or edema. 2. Multiple areas of prior infarction, chronic ischemic disease and encephalomalacia in the RIGHT cerebellum from a prior infarct. No significant progression. Dictated By: Adrianne Graham DO Signed By: Adrianne Graham DO Signed Date/Time: 07/21/20 1347 DD/ 134 CT Abd/Pel: Radiologist's impression: [address] [address] [address] Scan Report Signed Patient: Ry Loyd V Unit #: [id number] : [id number] Age/Sex: 64 / M ADM Date: 07/21/20 Loc: ER Room/Bed: Attending Dr: Ordering Provider/Ordering MD: Lorrie Cabral DO Date of Service: 07/21/20 Procedure(s): CT abdomen pelvis w con* [id number] Accession Number(s): [id number] Report Number: [id number] WS: [id number] CT ABDOMEN AND PELVIS WITH CONTRAST HISTORY: Abdominal pain/DIARRHEA TECHNIQUE: Imaging performed of the abdomen and pelvis with IV contrast. Si ngle phase imaging of the abdomen. Coronal and sagittal reformats are submitted. All CT scans at [facility] use at least one of these dose optimization techniques: automated exposure con trol; mA and/or kV adjustment per patient size (includes targeted exams where dose is matched to clinical indication); or iterative reconstruction. IV CONTRAST: Visipaque 320; 95 mL IV. Oral contrast: No DLP: 1145.43 mGy.cm COMPARISON: 01/17/2020 Lower thorax: Mild dependent changes at the lung bases. Heart size is enlarged. Stent noted at the aortic valve plane. [place] coronary artery calcifications. No hiatal hernia. Liver/biliary system: Normal size with no intrahepatic dilatation. Gallbladder: Cholelithiasis without evidence for acute cholecystitis. No gall bladder wall thickening or pericholecystic edema. Pancreas: Normal. Spleen: Splenic cleft and normal size spleen. Adrenal glands: Normal. Right kidney: Moderate perinephric stranding. The amount of stranding has increased since the prior study. Exophytic cyst with wall calcification or layering calcification measures 4.5 x 3.6 cm from the mid medial kidney. There are additional smaller cortical cysts. No hydronephrosis. Nonobstructing 7 mm calcification lower pole. Left kidney: Normal size kidney with moderate perinephric stranding which has increased. Exophytic cyst from the mid LEFT kidney measures 2.4 x 3.6 cm. There are additional smaller cysts in the lower pole. Hyperdense cyst exophytic from the lower pole is probably a hemorrhagic cyst. Not increased in size since 01/17/2020. Nonobstructing 6 mm calcification lower pole. Aorta: Mild atherosclerosis with no aneurysm. Lymphadenopathy: None. Free fluid: None. GI tract: No obstruction. The appendix is normal. Sigmoid diverticular disease without acute diverticulitis. Abdominal wall: Ventral abdominal wall hernia contains fat only. There is mild edema within the subcutaneous soft tissue. Pelvis: Arriola catheter present in a nondistended urinary bladder. Prostate gland calcifications. No adenopathy. Bones: No destructive process. CT/CT abdomen pelvis w con* [id number] IMPRESSION: 1. Moderate bilateral perinephric stranding which has increased since the prior study. Correlate for possible polynephritis. 2. Bilateral simple renal cysts and complex cysts. No increase in size or solid mass identified. 3. No ureteral calcifications. 4. Arriola catheter in the urinary bladder. 5. Large ventral abdominal wall hernia contains omentum only. 6. Cholelithiasis without acute cholecystitis. Dictated By: Adrianne Graham DO Signed By: Adrianne Graham DO Signed Date/Time: 07/21/20 1356 DD/ 1347 EKG Data^: EKG 1: Attestation: I personally reviewed and interpreted this EKG as follows: EKG interpretation date: 07/21/20 EKG interpretation time: 11:59 Interpretation: Probable atrial fibrillation with a ventricular rate of 68 beats a minute, no blocks, normal intervals, left axis deviation, LVH, PAC, ST segment depression and T wave inversion 1, aVL V4 through V6 Computer generated interpretation: Chest X-Ray 07/21/20 11:29 IMPRESSION: No acute airspace or pleural disease. Head CT 07/21/20 11:29 IMPRESSION: 1. No acute intracranial hemorrhage or edema. 2. Multiple areas of prior infarction, chronic ischemic disease and encephalomalacia in the RIGHT cerebellum from a prior infarct. No significant progression. Abdomen/Pelvis CT 07/21/20 11:54 IMPRESSION: 1. Moderate bilateral perinephric stranding which has increased since the prior study. Correlate for possible polynephritis. 2. Bilateral simple renal cysts and complex cysts. No increase in size or solid mass identified. 3. No ureteral calcifications. 4. Arriola catheter in the urinary bladder. 5. Large ventral abdominal wall hernia contains omentum only. 6. Cholelithiasis without acute cholecystitis. Discharge Plan Discharge Patient Disposition: Admitted As Inpatient Clinical Impression: Altered mental status, Acute dyspnea, Diarrhea, Elevated troponin, Congestive heart failure, Immunosuppression Condition: Stable Prescriptions: No Action tamsulosin 0.4 mg capsule 0.4 mg PO DAILY RF: 0 citalopram [Celexa] 10 mg tablet 10 mg PO DAILY RF: 0 leflunomide 20 mg tablet 20 mg PO DAILY RF: 0 furosemide 40 mg tablet 40 mg PO QAM RF: 0 Lantus U-100 Insulin 100 unit/mL solution See Rx Instructions .ROUTE .COMPLEX RF: 0 nitroglycerin [Nitrostat] 0.4 mg tablet, sublingual 0.4 mg SUBLINGUAL Q5M PRN (Reason: Chest Pain) RF: 0 aspirin [Adult Aspirin Regimen] 81 mg tablet,delayed release (DR/EC) 81 mg PO DAILY RF: 0 lisinopril 2.5 mg tablet 2.5 mg PO DAILY RF: 0 prednisone 5 mg tablet 10 mg PO DAILY Qty: 60 RF: 3 carvedilol 12.5 mg Tablet 6.25 mg PO BID RF: 0 warfarin 5 mg Tablet See Rx Instructions .ROUTE .COMPLEX RF: 0 cholecalciferol (vitamin D3) [Vitamin D3] 25 mcg (1,000 unit) Capsule 4,000 unit PO DAILY RF: 0 Saccharomyces boulardii [Florastor] 250 mg Capsule 250 mg PO DAILY RF: 0 potassium chloride 20 mEq Tablet Extended Release 20 meq PO DAILY RF: 0 atorvastatin 40 mg PO QPM RF: 0 tramadol [Ultram] 50 mg Tablet 50 mg PO Q4H PRN (Reason: Pain) RF: 0 pantoprazole [Protonix] 40 mg Tablet,Delayed Release (Dr/Ec) 40 mg PO DAILY RF: 0 amoxicillin 500 mg Capsule 500 mg PO BID RF: 0 Tylenol Arthritis Pain 650 mg Tablet Extended Release 650 mg PO PRN RF: 0 diltiazem HCl 120 mg capsule,extended release 24hr 120 mg PO DAILY RF: 0 Referrals: Faustina Gonzalez NP [Primary Care Provider] - Coding Level of Care Code ED Etl Bi Developer for Janyg Fwd Exam Comprehensive
--- NOTE | 2020-07-21 11:54 | CT_ITS ---
WS: [id number] CT ABDOMEN AND PELVIS WITH CONTRAST HISTORY: Abdominal pain/DIARRHEA TECHNIQUE: Imaging performed of the abdomen and pelvis with IV contrast. Single phase imaging of the abdomen. Coronal and sagittal reformats are submitted. All CT scans at [facility] use at least one of these dose optimization techniques: automated exposure control; mA and/or kV adjustment per patient size (includes targeted exams where dose is matched to clinical indication); or iterativ e reconstruction. IV CONTRAST: Visipaque 320; 95 mL IV. Oral contrast: No DLP: 1145.43 mGy.cm COMPARISON: 01/17/2020 Lower thorax: Mild dependent changes at the lung bases. Heart size is enlarged. Stent noted at the ao rtic valve plane. [place] coronary artery calcifications. No hiatal hernia. Liver/biliary system: Normal size with no intrahepatic dilatation. Gallbladder: Cholelithiasis without evidence for acute cholecystitis. No gallbladder wall thickening or pericholecystic edema. Pancreas: Normal. Spleen: Splenic cleft and normal size spleen. Adrenal glands: Normal. Right kidney: Moderate perinephric stranding. The amount of stranding has increased since the prior s tudy. Exophytic cyst with wall calcification or layering calcification measures 4.5 x 3.6 cm from the mid medial kidney. There are additional smaller cortical cysts. No hydronephrosis. Nonobstructing 7 mm calcification lower pole. Left kidney: Normal size kidney with moderate perinephric stranding which has increased. Exophytic cy st from the mid LEFT kidney measures 2.4 x 3.6 cm. There are additional smaller cysts in the lower po le. Hyperdense cyst exophytic from the lower pole is probably a hemorrhagic cyst. Not increased in si ze since 01/17/2020. Nonobstructing 6 mm calcification lower pole. Aorta: Mild atherosclerosis with no aneurysm. Lymphadenopathy: None. Free fluid: None. GI tract: No obstruction. The appendix is normal. Sigmoid diverticular disease without acute divertic ulitis. Abdominal wall: Ventral abdominal wall hernia contains fat only. There is mild edema within the subcu taneous soft tissue. Pelvis: Arriola catheter present in a nondistended urinary bladder. Prostate gland calcifications. No a denopathy. Bones: No destructive process. CT/CT abdomen pelvis w con* [id number] IMPRESSION: 1. Moderate bilateral perinephric stranding which has increased since the prio r study. Correlate for possible polynephritis. 2. Bilateral simple renal cysts and complex cysts. No increase in size or serena d mass identified. 3. No ureteral calcifications. 4. Arriola catheter in the urinary bladder. 5. Large ventral abdominal wall hernia contains omentum only. 6. Cholelithiasis without acute cholecystitis.
[2020-07-21 12:07] LABS: ABG PCO2 40.4 mmHg (35-45); ABG PH Result 7.42 (7.35-7.45); Arterial Blood Gas Hematocrit 39.1 % (42-52); Base Excess ABG 1.5 mmol/L (-2.0-2.0); Blood Gas Allen Test Pos; Blood Gas Sample Type Arterial; Carboxyhemoglobin < 0.0 %THgb (0.4-20.1); HCO3 ABG 26.2 mmol/L (22-26); HGB O2 Sat 97.3 % (95-100); Ionized Calcium Level - ABG 1.3 mmol/L (1.1-1.4); Methemoglobin 1.2 % (0.4-1.5); Potassium Level - ABG 4.2 mmol/L (3.5-5.0); Total Hemoglobin 12.8 g/dL (14-18)
[2020-07-21 12:09] LABS: Alveolar-Arterial Oxygen Gradi 43.1 mmHg (5-10); Blood Gas Operator Identificat ED; Blood Gas Sample Site Radial, left; Oxygen Device NRB
[2020-07-21 12:10] LABS: Basophils # 0.1 10^3/uL (0.0-0.1); Basophils % 0.7 %; Eosinophils # 0.1 10^3/uL (0.0-0.8); Eosinophils % 0.5 %; Hematocrit 43.1 % (42.0-52.0); Hemoglobin 12.8 g/dL (11.7-16.6); Lymphocytes # 0.8 10^3/uL (0.8-4.8); Lymphocytes % 5.5 %; Mean Corpuscular HGB Conc 29.7 g/dL (30.0-36.0); Mean Corpuscular Hemoglobin 19.2 pg (28.0-34.0); Mean Corpuscular Volume 64.7 fL (80-94); Monocytes # 0.8 10^3/uL (0.2-0.9); Monocytes % 5.5 %; Neutrophils # 12.65 10^3/uL (1.8-7.7); Neutrophils % 87.5 %; Nucleated Red Blood Cells % 0 %; Platelet Count 168 10^3/cmm (130-400); Red Blood Count 6.66 10^6/uL (4.1-5.3); Red Cell Distribution Width 18.8 % (12.1-15.1); White Blood Count 14.5 10^3/uL (4.0-10.0)
[2020-07-21 12:20] LABS: Ketone (Acetest) Serum Negative (Negative)
[2020-07-21 12:21] LABS: Lactic Sepsis W/Reflex 2.7 mmol/L (0.5-2.2)
[2020-07-21 12:22] LABS: Ammonia 33 umol/L (16-60)
[2020-07-21 12:24] LABS: Amphetamines Screen Urine Negative (Negative); Barbiturates Screen Urine Negative (Negative); Benzodiazepines Screen Urine Negative (Negative); Cocaine Screen Urine Negative (Negative); INR 1.83 (0.8-1.2); Opiate Screen Urine Negative (Negative); PCP Screen Urine Negative (Negative); THC Screen Urine Negative (Negative)
[2020-07-21 12:29] LABS: Urine Appearance Clear (CLEAR); Urine Color Yellow (Yellow); pH Urine 7 (5-7)
[2020-07-21 12:30] LABS: Bilirubin Urine Neg (NEGATIVE); Blood Urine Trace (Negative); Glucose Urine UA Norm (Normal); Ketones Urine Negative (Negative); Leukocyte Esterase Urine Negative (Negative); Nitrate Urine Negative (Negative); Protein Urine Neg (Negative); Specific Gravity, Urine 1.015 (1.005-1.030); Urobilinogen Urine Norm (Negative)
[2020-07-21 12:31] LABS: Add Urine Culture? No; Amorphous Sediment Urine TRACE; Bacteria Urine 1+; Hyaline Casts Urine 0-4; RBC Urine 0-4 /hpf (0-2); Squamous Epithelial Cell Urine 0-4 (0-5)
[2020-07-21] MEDS: sodium chloride 0.9% 1,000 ML 100 ML IV ×2 (12:31→18:50)
[2020-07-21] MEDS: hydrocortisone 100 mg/2 mL SDV IVP (12:31)
[2020-07-21] MEDS: ondansetron 2 mg/ML SDV 2 mL 4 MG IVP (12:31)
[2020-07-21 12:33] LABS: Alanine Aminotransferase 32 U/L (0-41); Albumin Level 3.6 g/dL (3.5-5.2); Alkaline Phosphatase 55 IU/L (40-130); Anion Gap 19.3 (5-19); Aspartate Amino Transferase 20 U/L (0-40); Blood Urea Nitrogen 23 mg/dL (8-23); Calcium 9.3 mg/dL (8.5-10.5); Carbon Dioxide 22 mmol/L (22-29); Chloride 103 mmol/L (98-107); Creatine Phosphokinase 42 U/L (39-308); Globulin 2.5 g/dL (1.3-4.6); Glomerular Filtration Rate 74.8 mL/min (90-130); Glucose 202 mg/dL (65-115); Lipase 19 U/L (13-60); Magnesium 1.8 mg/dL (1.7-2.3); NT Pro B Type Natriuretic Pept 1516 pg/mL (0-125); Osmolality Calculated 292 mOsm/kg (285-295); Potassium 4.3 mmol/L (3.5-5.1); Sodium 140 mmol/L (136-145); Thyroid Stimulating Hormone 1.62 uIU/mL (0.27-4.20); Total Bilirubin 1.1 mg/dL (0.15-1.2); Total Protein 6.1 g/dL (6.6-8.7)
[2020-07-21 12:36] LABS: Alcohol Level < 10 mg/dL (0-10)
[2020-07-21 12:37] LABS: Troponin(5th) Baseline 131 ng/L (0-15)
[2020-07-21 12:52] LABS: Slide Review Slide Review Perform
[2020-07-21] MEDS: metroNIDAZOLE IV 500 MG/100 ML PREMIX 100 MG IV (12:55)
[2020-07-21 13:08] LABS: Influenza A by IFA Negative (Negative); Influenza B by IFA Negative (Negative); SARS Covid-2 Antigen Negative (Negative)
[2020-07-21] MEDS: FUROsemide 10 mg/mL SDV 4mL 40 MG IVP (13:17)
[2020-07-21] MEDS: aspirin 325 mg Tablet PO (13:17)
[2020-07-21] MEDS: diphenhydrAMINE 50 mg/mL SDV 1mL 25 MG IVP (13:18)
[2020-07-21] MEDS: famotidine 20 mg/2 mL INJ 40 MG IVP (13:24)
--- NOTE | 2020-07-21 13:32 | ECG_ITS ---
[facility] Test Date: 2020-07-21 Pat Name: Ry Loyd Department: Room: Gender: Male Manager Printing: : 1955 Requested By: Lorrie Montoya Order Number: [id number] Morena MD: Cassy Monreal M.D. Measurements Intervals Independence Rate: 69 P: SC: -1 QRS: -18 QRSD: 102 T: 174 QT: 396 QTc: 426 Interpretive Statements ATRIAL FIBRILLATION MODERATE VOLTAGE CRITERIA FOR LVH, CONSIDER NORMAL VARIANT [MEETS CRITERIA IN ONE OF: R(aVL), S(V1), R(V5), R(V5/V6)+S(V1)] ST DEVIATION AND MODERATE T-WAVE ABNORMALITY, CONSIDER LATERAL ISCHEMIA [-0.1+ mV T WAVE IN I/aVL/V5/V6] Compared to ECG 07/21/2020 11:59:02 No significant changes Electronically Signed On 07-21-2020 21:06:25 CDT by aCssy Monreal M.D. [id number]
[2020-07-21] MEDS: iohexol 300 mg/mL 100 mL Btl IV (13:38)
[2020-07-21 13:48] LABS: Reflex Lactate Order REFLEX LACTIC ORDERD
--- NOTE | 2020-07-21 14:28 | PC.NURSE ---
Pt up in a recliner. Gave a sandwich, and drink. Able to move from stretcher to chair
[2020-07-21 14:40] LABS: Troponin 5 2HR Delta -24.3 ABS# (0-10)
--- NOTE | 2020-07-21 14:40 | PC.NURSE ---
Offered food and drink
[2020-07-21 14:41] LABS: Troponin 5 2HR 106.7 ng/L (0-15)
[2020-07-21] MEDS: ipratropium-albuterol 3 mL Neb 9 ML INHALATION (14:43)
--- NOTE | 2020-07-21 15:24 | P.HP_ITS ---
Providers/Chief Complaint Primary Care Provider: Faustina Gonzalez NP Chief Complaint: CHIOLLS, FEVER, WEAKNESS History of Present Illness Ry Loyd is a 64 year old male with past medical history of atrial fibrillation, early dementia, chronic diastolic heart failure, hypertension, type 2 diabetes mellitus, rheumatoid arthritis on leflunomide and chronic steroids, post TAVR, history of infective endocarditis on chronic amoxicillin, C. difficile earlier in November, history of stroke, chronic anticoagulation with warfarin who was brought into the ER today by EMS. Most of the history taken via phone by . She states patient was in his baseline health till last night. Today morning he woke up around 4 AM as he was feeling hungry and ate what was in the refrigerator. When patient's woke up in the morning she saw patient having chills and rigors along with some difficulty in breathing so she called EMS. On arrival EMS found that patient was febrile with temperature going up to 101 Fahrenheit. Patient has not been having any cough, runny nose, flulike symptoms, abdominal pain, nausea, vomiting. Patient has been having occasional dysuria. Patient also has been having recurrent urinary infections which have been treated with nitrofurantoin. On examination patient is lying comfortably in the recliner. He denies of having any nausea, vomiting. Complains of occasional difficulty in breathing. Denies of having any cough, expectoration, dysuria. Patient did have a large bowel movement in the ER which was soft, not foul-smelling, mixed with liquid bowel movements. Blood work in the ER showed a white count of 14.5, hemoglobin of 12.8, left shift with neutrophil of 12.6, INR of 1.83, ABG showing PO2 of 321 with a PCO2 of 40 on 15 L nasal cannula oxygen supplementation, BMP showing a sodium of 140, creatinine of 1.0, BUN of 23, lactic acidosis of 2.7 which came down to 2, baseline troponin of 131 down to 106 with a delta of -24, proBNP of 1516, urinalysis showing negative nitrite negative leuk esterase with 1+ bacteria, negative flu, negative rapid COVID [address] abdomen pelvis with contrast was done in the ER which showed moderate bilateral perinephric stranding increased since prior studies, bilateral simple renal cyst. Patient was on 2 L nasal cannula saturating 94% with blood pressure 96/50, heart rate of 90 bpm. Review of Systems General: Reports: 10 or more systems reviewed and unremarkable except in HPI and below Const: Reports: fever(s), chills and body aches; Denies: change in appetite, change in weight, malaise, night sweats, diaphoresis, change in sleep pattern, daytime sleepiness or snoring Eyes: Denies: change in vision, blurry vision, photophobia, eye discomfort or eye discharge ENMT: Denies: throat pain, enlarged tonsils, hoarseness, mouth pain, oral sores, dry mouth, tinnitus, nasal congestion or post nasal drip Card: Denies: chest pain, palpitations, irregular heart rhythm, edema, swelling of feet/ankles, lightheadedness, syncope, pre-syncope, dyspnea on exertion, orthopnea, leg pain with exertion or acrocyanosis Resp: Denies: dyspnea, productive cough, non-productive cough, wheezing, stridor, pain on inspiration, change in phlegm color, hemoptysis or chest congestion GI: Denies: abdominal pain, nausea, vomiting, hematemesis, coffee ground emesis, dysphagia, heartburn, diarrhea, constipation, bloating, GI cramping, change in bowel habits, pain on defecation, hematochezia or melena : Denies: flank pain, difficulty urinating, dysuria, urinary frequency, urinary urgency, urinary hesitancy, urinary dribbling, difficulty starting urination, change in urine stream, nocturia or hematuria Musc: Denies: neck pain, back pain, extremity pain, joint pain, joint swelling, joint redness, joint stiffness or limited range of motion Neuro: Denies: headache(s), numbness in extremities, weakness in extremities, sensory changes, lack of coordination, difficulty walking, frequent falls, dizziness, vertigo, confusion, Slurred speech present, difficulty communicating thoughts or seizure-like activity Psych: Denies: anxiety, depression, mood swings, panic attacks, hopelessness or irritability Endo: Denies: polyuria, polydipsia, tired all the time, cold intolerance, excessive sweating, flushing or heat intolerance Aaron/Lymph: Denies: easy bruising or easy bleeding All/Imm: Denies: tongue swelling, facial swelling or acute wheezing Medications/Allergies Home Medications Medication Instructions Recorded Confirmed Last Taken Type citalopram 10 mg tablet 10 mg PO DAILY tab 01/14/20 09/01/20 09/01/20 History furosemide 40 mg tablet 40 mg PO QAM 12/03/19 07/21/20 07/21/20 History insulin glargine 100 unit/mL See Rx Instructions .ROUTE 12/03/19 07/21/20 07/20/20 History subcutaneous solution .COMPLEX ml leflunomide 20 mg tablet 20 mg PO DAILY tab 12/03/19 07/21/20 07/21/20 History nitroglycerin 0.4 mg sublingual 0.4 mg SUBLINGUAL Q5M PRN 12/03/19 07/21/20 01/16/20 History tablet tamsulosin 0.4 mg capsule 0.4 mg PO DAILY cap 12/03/19 07/21/20 07/21/20 History Saccharomyces boulardii [Florastor] 250 mg PO DAILY 12/25/19 07/21/20 07/20/20 History atorvastatin 40 mg PO QPM 12/25/19 07/21/20 07/20/20 History carvedilol 6.25 mg PO BID 12/25/19 07/21/20 07/21/20 History 1 1/2 tabs cholecalciferol (vitamin D3) 4,000 unit PO DAILY 12/25/19 07/21/20 01/16/20 History [Vitamin D3] pantoprazole [Protonix] 40 mg PO DAILY 12/25/19 07/21/20 07/21/20 History potassium chloride 20 meq PO DAILY 12/25/19 07/21/20 07/21/20 History tramadol [Ultram] 50 mg PO Q4H PRN 12/25/19 07/21/20 01/16/20 History warfarin See Rx Instructions .ROUTE .COMPLEX 12/25/19 07/21/20 07/20/20 History aspirin 81 mg tablet,delayed 81 mg PO DAILY 06/09/20 07/21/20 07/21/20 History release lisinopril 2.5 mg tablet 2.5 mg PO DAILY 06/09/20 07/21/20 07/21/20 History prednisone 5 mg tablet 10 mg PO DAILY #60 tab 06/09/20 07/21/20 07/21/20 Rx acetaminophen [Tylenol Arthritis 650 mg PO PRN 09/12/0907/21/20 07/21/20 History Pain] amoxicillin 500 mg PO BID 07/21/20 07/21/20 07/21/20 History diltiazem HCl 120 mg PO DAILY 07/21/20 07/21/20 07/21/20 History Allergies Allergy/AdvReac Type Severity Reaction Status Date / Time ceftriaxone [From Rocephin] Allergy Intermediate ALGY-Difficulty Verified 07/21/20 12:28 Breathing levofloxacin [From Levaquin] Allergy Mild ADR-Itching Verified 07/21/20 12:28 iodine Allergy Unknown Unknown Verified 07/21/20 12:28 vancomycin Allergy Unknown Unknown Verified 07/21/20 12:28 clopidogrel [From Plavix] AdvReac Intermediate Unknown Verified 07/21/20 12:28 PFSH Acute PFSH: Medical History (Updated 07/21/20 @ 16:31 by Osman Curtis MD) Atrial fibrillation Bilateral renal masses CHF (congestive heart failure) Chronic use of steroids CVA (cerebral vascular accident) Diabetes Dyslipidemia Edema Endocarditis Essential hypertension Gout Hx of [place] spotted fever Ischemic cardiomyopathy Left ventricular hypertrophy Obesity AJAY (obstructive sleep apnea) Pulmonary HTN Renal calculi Rheumatoid arthritis Rheumatoid arthritis Thalassemia Family History Mother Stroke Father Myocardial infarction Other CAD (coronary artery disease) Chronic kidney disease (CKD) Diabetes Hypertension Social History Smoking and tobacco status: former smoker Alcohol intake: former Marital status: History of recent travel: No Vitals/I&O/Wt Last Vital Signs Temp 98.3 F 07/21/20 12:34 Pulse 90 07/21/20 15:05 Resp 18 07/21/20 15:05 BP 96/56 07/21/20 15:05 Pulse Ox 95 07/21/20 15:05 07/21/20 07/21/20 07/21/20 06:59 14:59 22:59 Intake Total 165 / 165 Balance 165 / 165 Weight last 48 hrs Weight 129.274 kg Physical Exam Narrative: EXAM NARRATIVE: General: No acute distress, AO x3, mildly confused HEENT: PERRLA, pupils bilaterally equal and reactive Chest: Normal vesicular breath sounds, bilateral occasional rhonchi, equal good air entry bilaterally CVS: S1-S2 regular, no murmurs, no tachycardia, no gallops, no rubs Abdomen: Soft, obese, nontender, no organomegaly, bowel sounds present Neuro: No focal deficits, no facial deformity, AO x3, power 5/5 in all limbs Urinary Catheter Management^: Arriola: Cath Placed During This Visit: yes Urinary Catheter Date of Insertion: 07/21/20 Urinary Catheter Time of Insertion: 12:28 Data : 07/21/20 11:50 07/21/20 11:50 Micro: Microbiology 07/21/20 11:55 Blood Culture - Preliminary Blood SPECIMEN COLLECTED 07/21/20 11:50 Blood Culture - Preliminary Blood SPECIMEN COLLECTED A&P Assessment and plan (1) Pyelonephritis: Status: Acute (2) Diarrhea: Status: Acute Qualifiers: Diarrhea type: unspecified type Qualified Code(s): R19.7 - Diarrhea, unspecified (3) Elevated troponin: Status: Acute (4) Chronic use of steroids: Status: Acute (5) Immunosuppression: Status: Acute (6) Rheumatoid arthritis: Status: Acute (7) Congestive heart failure: Status: Acute Qualifiers: Heart failure chronicity: acute on chronic Heart failure type: unspecified Qualified Code(s): I50.9 - Heart failure, unspecified (8) Hypoxia: Status: Acute (9) Atrial fibrillation: Status: Acute (10) Chronic anticoagulation: Status: Acute (11) Subtherapeutic international normalized ratio (INR): Status: Acute (12) Essential hypertension: Status: Acute (13) Diabetes: Status: Acute (14) Altered mental status: Status: Acute Qualifiers: Altered mental status type: unspecified Qualified Code(s): R41.82 - Altered mental status, unspecified Additional A&P Information 64-year-old gentleman past medical history of rheumatoid arthritis on chronic steroids, atrial fibrillation on chronic anticoagulation, history of endocarditis, C. difficile colitis comes in to the ER because of fever chills and hypoxia on room air found to have leukocytosis, hypoxia and possible pyelonephritis on CT scan. Fever, chills most likely because of pyelonephritis. But patient has a history of infective endocarditis and C. difficile in the past which cannot be ignored. Pyelonephritis: No signs of sepsis at present on admission. Check lactic acidosis, MRSA swab, blood cultures, urine culture. For now start patient on vancomycin and Zosyn. Keep mean arterial pressure over 65 mmHg. Patient looks euvolemic for hold off on IV fluids for now. Patient has received up to 1 L of IV fluids in the ER. Arriola catheter was done in the ER. For now we will continue to monitor urine output. Will plan to DC Arriola early. Hypoxia: Most likely because of atelectasis. No pneumonic patch on chest x-ray. We will check CT chest without contrast. Patient does not have hypercapnia on the ABG. Will check d-dimer. PE for now unlikely. Oxygen supplementation keeping saturation over 90%. Congestive heart failure: Diastolic type: Echocardiogram from last year shows an EF of 50% with global hypokinesia, diastolic dysfunction, dilated LA, normal rig ht ventricular size, normal functioning aortic valve. For now continue patient on home dose of Lasix. Patient is euvolemic. Diarrhea: Patient has history of C. difficile colitis. We will check stool studies. We will also do bacterial antigen. For now we will hold off on Lomotil C. difficile comes back negative. Type 2 diabetes mellitus: Patient takes Lantus 60 units twice daily at home. For now continue 50 units twice daily. Along with insulin sliding scale at moderate dose before meals and at bedtime. Check HbA1c, lipid panel. Atrial fibrillation: On chronic anticoagulation. Sub-therapeutic INR: INR admission 1.8. Patient takes 7.5 and 10 mg of warfarin on alternate days. We will continue to check INR daily. Most likely will need to do 10 mg of warfarin 7 days a week. Hypertension: Goal blood pressure less than 140/90 mmHg with mean arterial pressure over 65. Continue home dose of Coreg, Cardizem, lisinopril. Rheumatoid arthritis: On chronic immunosuppression with leflunomide and steroids. Continue home dose of prednisone 10 mg daily for now. CODE STATUS: Discussed with patient and patient's . Patient is full code. Cardiac carb consistent diet. Warfarin will also help with DVT prophylaxis. Attestations Medical Necessity Statement*: More than 2 midnights for pyelonephritis, hypoxia, atrial fibrillation, subtherapeutic INR. Time Spent in Patient Care: Greater than 35 minutes (>than 50% of time spent in counselling and/or direct pt care on unit) . Coding Level of Care Code Acute Medical Doctor Md for [facility] Diagnoses Pyelonephritis N12 Diarrhea R19.7 Diarrhea type: unspecified type Elevated troponin R79.89 Chronic use of steroids Immunosuppression D89.9 Rheumatoid arthritis M06.9 Congestive heart failure I50.9 Heart failure chronicity: acute on chronic Heart failure type: unspecified Hypoxia R09.02 Atrial fibrillation I48.91 Chronic anticoagulation Z79.01 Subtherapeutic international normalized ratio (INR) R79.1 Essential hypertension I10 Diabetes E11.9 Altered mental status R41.82 Altered mental status type: unspecified
--- NOTE | 2020-07-21 16:17 | CTR_ITS ---
PROCEDURE INFORMATION: Exam: CT Chest Without Contrast Exam date and time: 07/21/2020 4:38 PM Age: 64 years old Clinical indication: Condition or disease; Lung condition and disease; Copd and pneumonia; Complications not specified; Prior surgery; Additional info: Copd/pna TECHNIQUE: Imaging protocol: Computed tomography of the chest without contrast. Radiation optimization: All CT scans at this facility use at least one of these dose optimization techniques: automated exposure control; mA and/or kV adjustment per patient size (includes targeted exams where dose is matched to clinical indication); or iterative reconstruction. COMPARISON: CR XR chest 1V portable [id number] 07/21/2020 12:32 PM RADIATION DOSE METRICS: Total DLP (mGy-cm): 1472.93 FINDINGS: Lungs: There is subpleural atelectasis of the dependent portions of the lungs. There is ground-glass and interstitial prominence in the lungs greatest in the lower lobes compatible with mild pneumonitis, edema and/or atelectasis. No lobar consolidation. Pleural space: Unremarkable. No pneumothorax. No pleural effusion. Heart: The heart is enlarged. Postoperative aortic valve is noted. Coronary artery calcifications are noted. Mediastinal space: A small hiatal hernia is present. Aorta: Unremarkable. No aortic aneurysm. Great vessels off aortic arch: There is an abherrent origin of the right subclavian artery. Lymph nodes: Unremarkable. No enlarged lymph nodes. Gallbladder and bile ducts: Multiple calcified gallstones are present. There is no wall thickening or pericholecystic fluid to suggest cholecystitis. Kidneys and ureters: There is inflammatory perinephric stranding. There is a 4.2 cm indeterminate hyperdense mass midpole left kidney. There is an indeterminate 4.6 x 5.4 cm indeterminate lesion mid upper pole right kidney. Bilateral simple renal cysts are also noted. Bones/joints: Unremarkable. No acute fracture. Soft tissues: Unremarkable. CT/CT chest wo con [id number] IMPRESSION: 1. Bilateral indeterminate renal masses with Hounsfield unit measurements above water density. The largest is on the right measuring 5.4 cm in greatest dimension.Recommend MR without and with contrast or CT without and with contrast. MR is preferred for masses under 1.5 cm. 2. There is ground-glass and interstitial prominence in the lungs greatest in the lower lobes compatible with mild pneumonitis, edema and/or atelectasis. No lobar consolidation. COMMENTS: Consistent with the [employer]'s Incidental Findings Committee white paper (J Am Frances Radiol 2018): Any incidental renal lesion less than 1.0 cm or classified as too small to characterize, or any incidental cystic renal lesion characterized as simple-appearing, is likely benign. No follow-up imaging is recommended for these lesions per consensus recommendations based on imaging criteria. Radiation Dose CTDIVOL = (mGy): DLP = 1472.93 (mGy-cm)
[2020-07-21 17:21] LABS: Procalcitonin 0.12 ng/mL (0-0.5); Thyroid Stimulating Hormone 1.61 uIU/mL (0.27-4.20)
--- NOTE | 2020-07-21 17:24 | PC.NURSE ---
Wont keep NC on.. When pt wear the O2 NC at 2lpms, O2 sats are 97-99%
[2020-07-21 17:42] LABS: Iron 74 ug/dL (59-158); Percent Saturation 31.6 % (20-50); Total Iron Binding Capacity 234 mcg/dl; Unsaturated Iron Binding 160 ug/dL (112-347)
[2020-07-21] MEDS: atorvastatin 40 mg Tablet PO (18:49)
[2020-07-21] MEDS: carvedilol 6.25 mg Tablet PO (18:49)
[2020-07-21] MEDS: piperacillin-tazobactam 3.375 GM in sodium chloride 0.9% (plus) 50 ML IV (18:49)
--- NOTE | 2020-07-21 18:56 | PC.NURSE ---
patient placed on contact isolation precautions due to rule out cdiff testing.
[2020-07-21 19:02] LABS: Troponin 5 6HR 81.39 ng/L (0-15)
[2020-07-21 20:31] LABS: Glucose Point of Care 311 mg/dL (70-110)
[2020-07-21] MEDS: insulin glargine 100 units/1 mL 50 UNIT SUBCUT (20:57)
[2020-07-21] MEDS: ipratropium-albuterol 3 mL Neb INHALATION (21:45)
[2020-07-21] MEDS: budesonide 0.5 mg/2 mL Neb INHALATION (21:45)
[2020-07-22] VITALS (14 sets, daily range): BP systolic 108–157; BP diastolic 69–89; PULSE 65–101; RESP 17–32; TEMP 36.6–37; O2SAT 92–96
[2020-07-22] MEDS: piperacillin-tazobactam 3.375 GM in sodium chloride 0.9% (plus) 50 ML IV ×2 (01:50→10:10)
[2020-07-22] MEDS: ipratropium-albuterol 3 mL Neb INHALATION ×4 (03:10→21:22)
[2020-07-22 04:08] LABS: Basophils # 0.1 10^3/uL (0.0-0.1); Basophils % 0.5 %; Eosinophils # 0.1 10^3/uL (0.0-0.8); Eosinophils % 0.4 %; Hematocrit 36.1 % (42.0-52.0); Hemoglobin 10.5 g/dL (11.7-16.6); Lymphocytes # 1.5 10^3/uL (0.8-4.8); Lymphocytes % 10.2 %; Mean Corpuscular HGB Conc 29.1 g/dL (30.0-36.0); Mean Corpuscular Hemoglobin 18.9 pg (28.0-34.0); Mean Corpuscular Volume 64.8 fL (80-94); Monocytes # 1.1 10^3/uL (0.2-0.9); Monocytes % 7.7 %; Neutrophils # 11.72 10^3/uL (1.8-7.7); Neutrophils % 80.6 %; Nucleated Red Blood Cells % 0.1 %; Platelet Count 158 10^3/cmm (130-400); Red Blood Count 5.57 10^6/uL (4.1-5.3); Red Cell Distribution Width 17.9 % (12.1-15.1); White Blood Count 14.5 10^3/uL (4.0-10.0)
[2020-07-22 04:26] LABS: INR 1.96 (0.8-1.2)
[2020-07-22 04:30] LABS: Partial Thromboplastin Time 33.1 SECONDS (23.9-36.7)
[2020-07-22 04:35] LABS: Estmated Average Glucose 143; Hemoglobin A1C 6.6 % (4.0-6.0)
[2020-07-22 04:43] LABS: Alanine Aminotransferase 24 U/L (0-41); Albumin Level 3.2 g/dL (3.5-5.2); Alkaline Phosphatase 48 IU/L (40-130); Anion Gap 16.8 (5-19); Aspartate Amino Transferase 13 U/L (0-40); Blood Urea Nitrogen 30 mg/dL (8-23); Calcium 8.9 mg/dL (8.5-10.5); Carbon Dioxide 23 mmol/L (22-29); Chloride 104 mmol/L (98-107); Globulin 2.5 g/dL (1.3-4.6); Glucose 233 mg/dL (65-115); Magnesium 1.8 mg/dL (1.7-2.3); Osmolality Calculated 295 mOsm/kg (285-295); Phosphorus 3.7 mg/dL (2.5-4.5); Potassium 3.8 mmol/L (3.5-5.1); Sodium 140 mmol/L (136-145); Total Bilirubin 0.6 mg/dL (0.15-1.2); Total Protein 5.7 g/dL (6.6-8.7)
[2020-07-22 04:50] LABS: Procalcitonin 0.23 ng/mL (0-0.5)
[2020-07-22] MEDS: FUROsemide 40 mg Tablet PO (05:01)
[2020-07-22 05:31] LABS: Slide Review Slide Review Perform
[2020-07-22 06:15] LABS: Glucose Point of Care 165 mg/dL (70-110)
[2020-07-22] MEDS: budesonide 0.5 mg/2 mL Neb INHALATION ×2 (09:32→21:22)
[2020-07-22] MEDS: pantoprazole DR 40 mg Tablet PO (10:11)
[2020-07-22] MEDS: citalopram 20 mg Tablet 10 MG PO (10:12)
[2020-07-22] MEDS: aspirin 81 mg EC Tablet PO (10:12)
[2020-07-22] MEDS: tamsulosin 0.4 mg Capsule PO (10:12)
[2020-07-22] MEDS: carvedilol 6.25 mg Tablet PO ×2 (10:13→17:24)
[2020-07-22] MEDS: predniSONE 5 mg Tablet 10 MG PO (10:13)
[2020-07-22] MEDS: potassium chloride ER 10 mEq Tablet 20 MEQ PO (10:13)
[2020-07-22] MEDS: dilTIAZem ER (24HR) 120 mg Capsule PO (10:14)
[2020-07-22] MEDS: insulin glargine 100 units/1 mL 50 UNIT SUBCUT (10:30)
[2020-07-22 11:24] LABS: Glucose Point of Care 240 mg/dL (70-110)
[2020-07-22] MEDS: warfarin 10 mg Tablet PO (14:39)
[2020-07-22 16:26] LABS: Glucose Point of Care 257 mg/dL (70-110)
--- NOTE | 2020-07-22 16:43 | PM.PN ---
Subjective Subjective: Interval history: No acute events overnight. Patient has been doing well. He states he is feeling a lot better. On examination he is saturating well on room air. Denies having nausea, vomiting, headache, dizziness. He states his weight weakness is improved as well. Vitals/I&O/Wt Last Vital Signs Temp 97.9 F 07/22/20 15:12 Pulse 99 07/22/20 15:40 Resp 18 07/22/20 15:33 BP 108/73 07/22/20 15:12 Pulse Ox 95 07/22/20 15:33 07/22/20 07/22/20 07/22/20 06:59 14:59 22:59 Intake Total 790 / 1471.667 480 / 480 Output Total 1000 / 1000 Balance 790 / 971.667 -520 / -520 Weight last 48 hrs Weight 124.539 kg Weight 129.274 kg Physical Exam Narrative: EXAM NARRATIVE: General: No acute distress, AO x3, mildly confused HEENT: PERRLA, pupils bilaterally equal and reactive Chest: Normal vesicular breath sounds, bilateral occasional rhonchi, equal good air entry bilaterally CVS: S1-S2 regular, no murmurs, no tachycardia, no gallops, no rubs Abdomen: Soft, obese, nontender, no organomegaly, bowel sounds present Neuro: No focal deficits, no facial deformity, AO x3, power 5/5 in all limbs Urinary Catheter Management^: Arriola: Cath Placed During This Visit: yes Reason for Continuing Indwelling Catheter: Accurate Measurement of Urinary Output in Critically Ill Patients Urinary Catheter Date of Insertion: 07/21/20 Urinary Catheter Time of Insertion: 12:28 Data : 07/22/20 03:15 07/22/20 03:15 Micro: Microbiology 07/21/20 11:50 Stool Lactoferrin - Final Stool Enteric Pathogens (PCR) - Final Parasite Antigen Panel - Final C.difficile Toxin B Gene (PCR) - Final Occult Blood (FIT) - Final 07/21/20 11:55 Blood Culture - Preliminary Blood NEGATIVE TO DATE 07/22/20 11:25 Blood Culture - Preliminary Blood SPECIMEN COLLECTED 07/22/20 11:20 Blood Culture - Preliminary Blood SPECIMEN COLLECTED 07/21/20 11:50 Blood Culture - Preliminary Blood Gram positive cocci 07/22/20 00:25 MRSA Culture - Final Nose 07/21/20 11:50 Legionella Urinary Antigen - Final Urine,Voided 07/21/20 11:50 Bacterial Antigens - Final Urine Kidney A&P Assessment and plan (1) Pyelonephritis: Status: Acute (2) Diarrhea: Status: Acute Qualifiers: Diarrhea type: unspecified type Qualified Code(s): R19.7 - Diarrhea, unspecified (3) Elevated troponin: Status: Acute (4) Chronic use of steroids: Status: Acute (5) Immunosuppression: Status: Acute (6) Rheumatoid arthritis: Status: Acute (7) Congestive heart failure: Status: Acute Qualifiers: Heart failure chronicity: acute on chronic Heart failure type: unspecified Qualified Code(s): I50.9 - Heart failure, unspecified (8) Hypoxia: Status: Acute (9) Atrial fibrillation: Status: Acute (10) Chronic anticoagulation: Status: Acute (11) Subtherapeutic international normalized ratio (INR): Status: Acute (12) Essential hypertension: Status: Acute (13) Diabetes: Status: Acute (14) Altered mental status: Status: Acute Qualifiers: Altered mental status type: unspecified Qualified Code(s): R41.82 - Altered mental status, unspecified Additional A&P Information 64-year-old gentleman past medical history of rheumatoid arthritis on chronic steroids, atrial fibrillation on chronic anticoagulation, history of endocarditis, C. difficile colitis comes in to the ER because of fever chills and hypoxia on room air found to have leukocytosis, hypoxia and possible pyelonephritis on CT scan. Fever, chills most likely because of pyelonephritis. C. difficile is ruled out. Blood cultures on admission 1 out of 4 sets positive for GPC's. Cannot rule out contamination. Pyelonephritis: No signs of sepsis at present on admission. MRSA negative. On review of previous cultures patient urine culture earlier this year grew Klebsiella which was resistant to Zosyn. Given above we will discontinue Zosyn and start patient on imipenem. Continue vancomycin. For now start patient on vancomycin and Zosyn. Keep mean arterial pressure over 65 mmHg. Patient looks euvolemic for hold off on IV fluids for now. Patient has received up to 1 L of IV fluids in the ER. DARRYL Arriola. Hypoxia: Most likely because of atelectasis. No pneumonic patch on chest x-ray. CT results appreciated. No PE. Concerning for possible atelectasis versus basilar pneumonia. Antibiotics to cover for same as well. On room air now. Oxygen supplementation keeping saturation over 90%. Congestive heart failure: Diastolic type: Echocardiogram from last year shows an EF of 50% with global hypokinesia, diastolic dysfunction, dilated LA, normal right ventricular size, normal functioning aortic valve. For now continue patient on home dose of Lasix. Patient is euvolemic. Diarrhea: Stool studies appreciated. We will start Lomotil if required. C. difficile negative. Type 2 diabetes mellitus: Patient takes Lantus 60 units twice daily at home. states his blood sugars have been running on the lower side at home. A1c 6.6. Blood sugars running slightly higher. Will increase Lantus to 55 units twice daily.Continue insulin sliding scale. Atrial fibrillation: On chronic anticoagulation. Sub-therapeutic INR: INR admission improving. Patient takes 7.5 and 10 mg of warfarin on alternate days. Increase Warf to 10 mg Mo-Fr, 7.5 mg Sat- Sun. We will continue to check INR daily. Most likely will need to do 10 mg of warfarin 7 days a week. Hypertension: Goal blood pressure less than 140/90 mmHg with mean arterial pressure over 65. Continue home dose of Coreg, Cardizem, lisinopril. Rheumatoid arthritis: On chronic immunosuppression with leflunomide and steroids. Continue home dose of prednisone 10 mg daily for now. CODE STATUS: Discussed with patient and patient's . Patient is full code. Cardiac carb consistent diet. Warfarin will also help with DVT prophylaxis. 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
[2020-07-22] MEDS: TRAMadol 50 mg Tablet PO (17:23)
[2020-07-22] MEDS: atorvastatin 40 mg Tablet PO (17:24)
--- NOTE | 2020-07-22 18:35 | PC.NURSE ---
pt is very pleasant and cooperative..but forgetful and states he has dementia.adry maier at 11:30.has tried to use urinal..but often spills it.cdiff came back negative-taken off of isolation.
[2020-07-22] MEDS: insulin glargine 100 units/1 mL 55 UNIT SUBCUT (19:58)
[2020-07-22 21:10] LABS: Glucose Point of Care 299 mg/dL (70-110)
[2020-07-23] VITALS (14 sets, daily range): BP systolic 136–162; BP diastolic 71–102; PULSE 64–99; RESP 18–24; TEMP 36.3–37; O2SAT 91–97
[2020-07-23] MEDS: ipratropium-albuterol 3 mL Neb INHALATION ×4 (03:14→20:18)
[2020-07-23 04:12] LABS: Basophils # 0.1 10^3/uL (0.0-0.1); Basophils % 0.5 %; Eosinophils # 0.1 10^3/uL (0.0-0.8); Eosinophils % 0.9 %; Hematocrit 37.2 % (42.0-52.0); Hemoglobin 10.9 g/dL (11.7-16.6); Lymphocytes # 1.2 10^3/uL (0.8-4.8); Lymphocytes % 10.6 %; Mean Corpuscular HGB Conc 29.3 g/dL (30.0-36.0); Mean Corpuscular Hemoglobin 18.9 pg (28.0-34.0); Mean Corpuscular Volume 64.4 fL (80-94); Monocytes # 0.9 10^3/uL (0.2-0.9); Monocytes % 7.9 %; Neutrophils # 9.31 10^3/uL (1.8-7.7); Neutrophils % 79.5 %; Nucleated Red Blood Cells % 0.2 %; Platelet Count 176 10^3/cmm (130-400); Red Blood Count 5.78 10^6/uL (4.1-5.3); Red Cell Distribution Width 18.4 % (12.1-15.1); White Blood Count 11.7 10^3/uL (4.0-10.0)
[2020-07-23 04:48] LABS: INR 1.86 (0.8-1.2)
[2020-07-23 04:50] LABS: Alanine Aminotransferase 23 U/L (0-41); Albumin Level 3.4 g/dL (3.5-5.2); Alkaline Phosphatase 51 IU/L (40-130); Aspartate Amino Transferase 12 U/L (0-40); Blood Urea Nitrogen 29 mg/dL (8-23); Calcium 9.1 mg/dL (8.5-10.5); Carbon Dioxide 26 mmol/L (22-29); Chloride 107 mmol/L (98-107); Globulin 2.4 g/dL (1.3-4.6); Glomerular Filtration Rate 84.4 mL/min (90-130); Glucose 179 mg/dL (65-115); Osmolality Calculated 296 mOsm/kg (285-295); Sodium 142 mmol/L (136-145); Total Bilirubin 0.5 mg/dL (0.15-1.2); Total Protein 5.8 g/dL (6.6-8.7)
[2020-07-23] MEDS: FUROsemide 40 mg Tablet PO (05:10)
[2020-07-23 05:49] LABS: Slide Review Slide Review Perform
[2020-07-23 06:46] LABS: Glucose Point of Care 195 mg/dL (70-110)
[2020-07-23] MEDS: budesonide 0.5 mg/2 mL Neb INHALATION ×2 (08:06→20:18)
[2020-07-23] MEDS: insulin glargine 100 units/1 mL 55 UNIT SUBCUT ×2 (08:37→20:18)
[2020-07-23] MEDS: citalopram 20 mg Tablet 10 MG PO (08:40)
[2020-07-23] MEDS: predniSONE 5 mg Tablet 10 MG PO (08:41)
[2020-07-23] MEDS: tamsulosin 0.4 mg Capsule PO (08:41)
[2020-07-23] MEDS: carvedilol 6.25 mg Tablet PO ×2 (08:41→17:38)
[2020-07-23] MEDS: pantoprazole DR 40 mg Tablet PO (08:41)
[2020-07-23] MEDS: potassium chloride ER 10 mEq Tablet 20 MEQ PO (08:42)
[2020-07-23] MEDS: dilTIAZem ER (24HR) 120 mg Capsule PO (08:42)
[2020-07-23] MEDS: aspirin 81 mg EC Tablet PO (08:42)
--- NOTE | 2020-07-23 10:32 | PM.PN ---
Subjective Subjective: Interval history: No acute events overnight. Patient has been doing well. He states he is feeling a lot better. On examination he is saturating well on room air while sitting in chair. Denies having nausea, vomiting, headache, dizziness. Vitals/I&O/Wt Last Vital Signs Temp 97.3 F L 07/23/20 07:22 Pulse 87 07/23/20 08:12 Resp 20 H 07/23/20 08:12 BP 136/98 07/23/20 07:22 Pulse Ox 97 07/23/20 08:12 07/22/20 07/23/20 07/23/20 22:59 06:59 14:59 Intake Total 940 / 1520 720 / 2240 360 / 360 Output Total 450 / 1450 Balance 940 / 520 270 / 790 360 / 360 Weight last 48 hrs Weight 126.184 kg Weight 124.539 kg Weight 129.274 kg Physical Exam Narrative: EXAM NARRATIVE: General: No acute distress, AO x3, mildly confused HEENT: PERRLA, pupils bilaterally equal and reactive Chest: Normal vesicular breath sounds, bilateral occasional rhonchi, equal good air entry bilaterally CVS: S1-S2 regular, no murmurs, no tachycardia, no gallops, no rubs Abdomen: Soft, obese, nontender, no organomegaly, bowel sounds present Neuro: No focal deficits, no facial deformity, AO x3, power 5/5 in all limbs Urinary Catheter Management^: Arriola: Cath Placed During This Visit: yes, but has since been removed by the nurse Reason for Continuing Indwelling Catheter: Decision to DC Catheter Urinary Catheter Date of Insertion: 07/21/20 Urinary Catheter Time of Insertion: 12:28 Date Urinary Catheter Removed: 07/22/20 Time Urinary Catheter Discontinued: 11:30 Data : 07/23/20 03:08 07/23/20 03:08 Micro: Microbiology 07/21/20 11:50 Urine Culture - Preliminary Urine,Clean Catch 07/21/20 11:50 Stool Lactoferrin - Final Stool Enteric Pathogens (PCR) - Final Parasite Antigen Panel - Final C.difficile Toxin B Gene (PCR) - Final Occult Blood (FIT) - Final 07/21/20 11:55 Blood Culture - Preliminary Blood NEGATIVE TO DATE 07/22/20 11:25 Blood Culture - Preliminary Blood SPECIMEN COLLECTED 07/22/20 11:20 Blood Culture - Preliminary Blood SPECIMEN COLLECTED 07/21/20 11:50 Blood Culture - Preliminary Blood Gram positive cocci 07/22/20 00:25 MRSA Culture - Final Nose A&P Assessment and plan (1) Pyelonephritis: Status: Acute (2) Diarrhea: Status: Acute Qualifiers: Diarrhea type: unspecified type Qualified Code(s): R19.7 - Diarrhea, unspecified (3) Elevated troponin: Status: Acute (4) Chronic use of steroids: Status: Acute (5) Immunosuppression: Status: Acute (6) Rheumatoid arthritis: Status: Acute (7) Congestive heart failure: Status: Acute Qualifiers: Heart failure chronicity: acute on chronic Heart failure type: unspecified Qualified Code(s): I50.9 - Heart failure, unspecified (8) Hypoxia: Status: Acute (9) Atrial fibrillation: Status: Acute (10) Chronic anticoagulation: Status: Acute (11) Subtherapeutic international normalized ratio (INR): Status: Acute (12) Essential hypertension: Status: Acute (13) Diabetes: Status: Acute (14) Altered mental status: Status: Acute Qualifiers: Altered mental status type: unspecified Qualified Code(s): R41.82 - Altered mental status, unspecified Additional A&P Information 64-year-old gentleman past medical history of rheumatoid arthritis on chronic steroids, atrial fibrillation on chronic anticoagulation, history of endocarditis, C. difficile colitis comes in to the ER because of fever chills and hypoxia on room air found to have leukocytosis, hypoxia and possible pyelonephritis on CT scan. Fever, chills most likely because of pyelonephritis. C. difficile is ruled out. Blood cultures on admission 1 out of 4 sets positive for GPC's. Cannot rule out contamination. Repeat blood cultures have been negative. Pyelonephritis: No signs of sepsis at present on admission. MRSA negative. On review of previous cultures patient urine culture earlier this year grew Klebsiella which was resistant to Zosyn. Continue with vancomycin and imipenem. Vancomycin will cover for possible GPC in 1 out of 4 blood cultures while imipenem will cover for Klebsiella on past urine cultures. Currently urine cultures have remained negative. Keep mean arterial pressure over 65 mmHg. Patient is euvolemic. Hypoxia: Resolved. Most likely because of atelectasis. No pneumonic patch on chest x-ray. CT results appreciated. No PE. Concerning for possible atelectasis versus basilar pneumonia. Antibiotics to cover for same as well. On room air now. Oxygen supplementation keeping saturation over 90%. Congestive heart failure: Diastolic type: Echocardiogram from last year shows an EF of 50% with global hypokinesia, diastolic dysfunction, dilated LA, normal right ventricular size, normal functioning aortic valve. For now continue patient on home dose of Lasix. Patient is euvolemic. Diarrhea: Stool studies appreciated. We will start Lomotil if required. C. difficile negative. Type 2 diabetes mellitus: Patient takes Lantus 60 units twice daily at home. states his blood sugars have been running on the lower side at home. A1c 6.6. Patient blood sugar has been on the higher side since admission. We will put him back on home dose of Lantus and insulin sliding scale. Atrial fibrillation: On chronic anticoagulation. Sub-therapeutic INR: INR admission improving. Patient takes 7.5 and 10 mg of warfarin on alternate days. Increase Warf to 10 mg Mo-Fr, 7.5 mg Sat- Sun. We will continue to check INR daily. Most likely will need to do 10 mg of warfarin 7 days a week. Hypertension: Goal blood pressure less than 140/90 mmHg with mean arterial pressure over 65. Continue home dose of Coreg, Cardizem, lisinopril. Rheumatoid arthritis: On chronic immunosuppression with leflunomide and steroids. Continue home dose of prednisone 10 mg daily for now. CODE STATUS: Discussed with patient and patient's . Patient is full code. Cardiac carb consistent diet. Warfarin will also help with DVT prophylaxis. Patient continues to do the same way can plan to discharge tomorrow. If blood cultures and urine cultures come back negative in next 24 hours will discontinue all antibiotics as well. Attestations Medical Necessity Statement*: Hypoxia, possible pyelonephritis, gram-positive bacteremia Time Spent in Patient Care: Greater than 35 minutes (>than 50% of time spent in counselling and/or direct pt care on unit). 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
[2020-07-23 10:59] LABS: Vancomycin Trough 25.2 ug/mL (10-15)
--- NOTE | 2020-07-23 11:06 | PC.NURSE ---
No new instructions
[2020-07-23 11:12] LABS: Glucose Point of Care 265 mg/dL (70-110)
[2020-07-23] MEDS: warfarin 10 mg Tablet PO (14:48)
[2020-07-23 16:55] LABS: Glucose Point of Care 178 mg/dL (70-110)
[2020-07-23] MEDS: atorvastatin 40 mg Tablet PO (17:38)
[2020-07-23 20:01] LABS: Glucose Point of Care 282 mg/dL (70-110)
[2020-07-24] VITALS (15 sets, daily range): BP systolic 124–170; BP diastolic 73–125; PULSE 7–107; RESP 16–24; TEMP 36.4–36.7; O2SAT 94–98
[2020-07-24 03:58] LABS: Basophils # 0.1 10^3/uL (0.0-0.1); Basophils % 0.7 %; Eosinophils # 0.2 10^3/uL (0.0-0.8); Eosinophils % 1.9 %; Hematocrit 37.1 % (42.0-52.0); Lymphocytes # 1.4 10^3/uL (0.8-4.8); Lymphocytes % 12.8 %; Mean Corpuscular HGB Conc 29.6 g/dL (30.0-36.0); Mean Corpuscular Hemoglobin 18.7 pg (28.0-34.0); Mean Corpuscular Volume 63.1 fL (80-94); Monocytes # 0.9 10^3/uL (0.2-0.9); Monocytes % 8.1 %; Neutrophils # 8.09 10^3/uL (1.8-7.7); Neutrophils % 75.8 %; Nucleated Red Blood Cells % 0 %; Platelet Count 189 10^3/cmm (130-400); Red Blood Count 5.88 10^6/uL (4.1-5.3); Red Cell Distribution Width 17.7 % (12.1-15.1); White Blood Count 10.7 10^3/uL (4.0-10.0)
[2020-07-24 04:33] LABS: Alanine Aminotransferase 26 U/L (0-41); Albumin Level 3.5 g/dL (3.5-5.2); Alkaline Phosphatase 55 IU/L (40-130); Anion Gap 11.7 (5-19); Aspartate Amino Transferase 15 U/L (0-40); Blood Urea Nitrogen 31 mg/dL (8-23); Calcium 9.3 mg/dL (8.5-10.5); Carbon Dioxide 29 mmol/L (22-29); Chloride 103 mmol/L (98-107); Globulin 2.5 g/dL (1.3-4.6); Glomerular Filtration Rate 84.4 mL/min (90-130); Glucose 152 mg/dL (65-115); Osmolality Calculated 290 mOsm/kg (285-295); Potassium 3.7 mmol/L (3.5-5.1); Sodium 140 mmol/L (136-145); Total Bilirubin 0.4 mg/dL (0.15-1.2)
[2020-07-24] MEDS: FUROsemide 40 mg Tablet PO (05:18)
[2020-07-24 05:25] LABS: Slide Review Slide Review Perform
[2020-07-24 06:06] LABS: Glucose Point of Care 237 mg/dL (70-110)
[2020-07-24] MEDS: dilTIAZem ER (24HR) 120 mg Capsule PO (08:09)
[2020-07-24] MEDS: potassium chloride ER 10 mEq Tablet 20 MEQ PO (08:09)
[2020-07-24] MEDS: tamsulosin 0.4 mg Capsule PO (08:09)
[2020-07-24] MEDS: insulin glargine 100 units/1 mL 55 UNIT SUBCUT ×2 (08:09→20:48)
[2020-07-24] MEDS: carvedilol 6.25 mg Tablet PO ×2 (08:09→17:21)
[2020-07-24] MEDS: predniSONE 5 mg Tablet 10 MG PO (08:09)
[2020-07-24] MEDS: pantoprazole DR 40 mg Tablet PO (08:09)
[2020-07-24] MEDS: aspirin 81 mg EC Tablet PO (08:09)
[2020-07-24] MEDS: citalopram 20 mg Tablet 10 MG PO (08:09)
[2020-07-24] MEDS: budesonide 0.5 mg/2 mL Neb INHALATION ×2 (08:18→20:59)
[2020-07-24] MEDS: ipratropium-albuterol 3 mL Neb INHALATION ×3 (08:18→20:59)
--- NOTE | 2020-07-24 08:45 | PC.SOCIAL ---
IMM Page 2 of IMM given to patient. Initialed, dated, and timed and placed in chart. Copy provided to patient.
--- NOTE | 2020-07-24 11:21 | P.PN_ITS ---
Subjective Subjective: Interval history: No acute events overnight. Patient remained comfortable and states he is doing well. He states he is feeling a lot better. On examination he is saturating well on room air while sitting in chair. Denies having nausea, vomiting, headache, dizziness. Vitals/I&O/Wt Last Vital Signs Temp 97.6 F 07/24/20 08:15 Pulse 93 07/24/20 08:19 Resp 22 H 07/24/20 08:19 BP 148/86 07/24/20 10:03 Pulse Ox 98 07/24/20 08:19 07/23/20 07/24/20 07/24/20 22:59 06:59 14:59 Intake Total 460 / 1140 690 / 1830 240 / 240 Output Total 380 / 380 400 / 780 1300 / 1300 Balance 80 / 760 290 / 1050 -1060 / -1060 Weight last 48 hrs Weight 126.297 kg Weight 126.184 kg Physical Exam Narrative: EXAM NARRATIVE: General: No acute distress, AO x3, mildly confused HEENT: PERRLA, pupils bilaterally equal and reactive Chest: Normal vesicular breath sounds, bilateral occasional rhonchi, equal good air entry bilaterally CVS: S1-S2 regular, no murmurs, no tachycardia, no gallops, no rubs Abdomen: Soft, obese, nontender, no organomegaly, bowel sounds present Neuro: No focal deficits, no facial deformity, AO x3, power 5/5 in all limbs Urinary Catheter Management^: Arriola: Cath Placed During This Visit: yes, but has since been removed by the nurse Reason for Continuing Indwelling Catheter: Decision to DC Catheter Urinary Catheter Date of Insertion: 07/21/20 Urinary Catheter Time of Insertion: 12:28 Date Urinary Catheter Removed: 07/22/20 Time Urinary Catheter Discontinued: 11:30 Data : 07/24/20 03:30 07/24/20 03:30 Micro: Microbiology 07/21/20 11:50 Urine Culture - Final Urine,Clean Catch 07/21/20 11:50 Blood Culture - Preliminary Blood Coagulase negativ staphylococc 07/22/20 11:25 Blood Culture - Preliminary Blood NEGATIVE TO DATE 07/22/20 11:20 Blood Culture - Preliminary Blood NEGATIVE TO DATE A&P Assessment and plan (1) Pyelonephritis: Status: Acute (2) Diarrhea: Status: Acute Qualifiers: Diarrhea type: unspecified type Qualified Code(s): R19.7 - Diarrhea, unspecified (3) Elevated troponin: Status: Acute (4) Chronic use of steroids: Status: Acute (5) Immunosuppression: Status: Acute (6) Rheumatoid arthritis: Status: Acute (7) Congestive heart failure: Status: Acute Qualifiers: Heart failure chronicity: acute on chronic Heart failure type: unspecified Qualified Code(s): I50.9 - Heart failure, unspecified (8) Hypoxia: Status: Acute (9) Atrial fibrillation: Status: Acute (10) Chronic anticoagulation: Status: Acute (11) Subtherapeutic international normalized ratio (INR): Status: Acute (12) Essential hypertension: Status: Acute (13) Diabetes: Status: Acute (14) Altered mental status: Status: Acute Qualifiers: Altered mental status type: unspecified Qualified Code(s): R41.82 - Altered mental status, unspecified Additional A&P Information 64-year-old gentleman past medical history of rheumatoid arthritis on chronic steroids, atrial fibrillation on chronic anticoagulation, history of endocarditis, C. difficile colitis comes in to the ER because of fever chills and hypoxia on room air found to have leukocytosis, hypoxia and possible pyelonephritis on CT scan. Fever, chills most likely because of pyelonephritis. C. difficile is ruled out. Blood cultures on admission 2 out of 4 sets positive for GPC's. Cannot rule out contamination. Repeat blood cultures have been negative. Pyelonephritis: No signs of sepsis at present on admission. MRSA negative. On review of previous cultures patient urine culture earlier this year grew Klebsiella which was resistant to Zosyn. Continue with vancomycin and imipenem. 2 out of 4 blood cells most likely contaminant. Repeat blood cultures have remained negative. For now we will continue vancomycin to cover just in case. No gram negatives have been isolated in any of the cultures so we will withhold imipenem now. Repeat blood cultures have remained negative for 48 hours now. Keep mean arterial pressure over 65 mmHg. Patient is euvolemic. Hypoxia: Resolved. Most likely because of atelectasis. No pneumonic patch on chest x-ray. CT results appreciated. No PE. Concerning for possible atelectasis versus basilar pneumonia. Antibiotics to cover for same as well. On room air now. Oxygen supplementation keeping saturation over 90%. Congestive heart failure: Diastolic type: Echocardiogram from last year shows an EF of 50% with global hypokinesia, diastolic dysfunction, dilated LA, normal right ventricular size, normal functioning aortic valve. For now continue patient on home dose of Lasix. Patient is euvolemic. Diarrhea: Stool studies appreciated. We will start Lomotil if required. C. difficile negative. Type 2 diabetes mellitus: Patient takes Lantus 60 units twice daily at home. states his blood sugars have been running on the lower side at home. A1c 6.6. Patient blood sugar has been on the higher side since admission. Has received 30 units of pre-meals insulin last 24 hours along with Lantus 55 units twice daily. We will put him back to 60 units twice daily. Patient inpatient. Will most likely needs to be counseled regarding dosage of Lantus at home in case of low blood sugars. Atrial fibrillation: On chronic anticoagulation. Sub-therapeutic INR: INR admission improving. Patient takes 7.5 and 10 mg of warfarin on alternate days. Continue with Warf to 10 mg Mo-Fr, 7.5 mg Sat- Sun. We will continue to check INR daily. Most likely will need to do 10 mg of warfarin 7 days a week. Hypertension: Goal blood pressure less than 140/90 mmHg with mean arterial pressure over 65. Continue home dose of Coreg, Cardizem, lisinopril. Rheumatoid arthritis: On chronic immunosuppression with leflunomide and stero ids. Continue home dose of prednisone 10 mg daily for now. CODE STATUS: Discussed with patient and patient's . Patient is full code. Cardiac carb consistent diet. Warfarin will also help with DVT prophylaxis. Patient continues to do the same way can plan to discharge tomorrow. If blood cultures and urine cultures come back negative in next 24 hours will discontinue all antibiotics as well. 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
[2020-07-24 11:37] LABS: Glucose Point of Care 101 mg/dL (70-110)
--- NOTE | 2020-07-24 13:24 | PC.NURSE ---
patient has had several incontinent episodes this shift with multiple brief changes patient in alert and appropriate with repartition in stories patient able to transfer self to BSC and chair without issue patient has denies any pain or sob this shift will continue nursing cares.
[2020-07-24] MEDS: warfarin 10 mg Tablet PO (14:54)
[2020-07-24 16:53] LABS: Glucose Point of Care 245 mg/dL (70-110)
[2020-07-24] MEDS: atorvastatin 40 mg Tablet PO (17:21)
--- NOTE | 2020-07-24 19:46 | PC.NURSE ---
Rounding: Patient resting in bed called per request. NO answer left message to call back. Patient is resting in bed and will continue to monitor.
[2020-07-24 20:26] LABS: Glucose Point of Care 253 mg/dL (70-110)
[2020-07-25] VITALS (8 sets, daily range): BP systolic 152–165; BP diastolic 83–114; PULSE 77–94; RESP 18–23; TEMP 36.6; O2SAT 93–95
[2020-07-25] MEDS: ipratropium-albuterol 3 mL Neb INHALATION ×2 (03:30→10:10)
[2020-07-25] MEDS: FUROsemide 40 mg Tablet PO (05:43)
--- NOTE | 2020-07-25 06:18 | PC.NURSE ---
End of shift: Patient has rested off and on this shift. Patient ambulates to the bedside commode. Patient is pleasantly confused. Uses call light to voice needs. Will continue to monitor.
[2020-07-25 06:22] LABS: Basophils # 0.1 10^3/uL (0.0-0.1); Basophils % 0.9 %; Eosinophils # 0.2 10^3/uL (0.0-0.8); Eosinophils % 1.9 %; Hematocrit 36.7 % (42.0-52.0); Hemoglobin 10.8 g/dL (11.7-16.6); Lymphocytes # 1.3 10^3/uL (0.8-4.8); Lymphocytes % 15.1 %; Mean Corpuscular HGB Conc 29.4 g/dL (30.0-36.0); Mean Corpuscular Hemoglobin 18.7 pg (28.0-34.0); Mean Corpuscular Volume 63.6 fL (80-94); Monocytes # 0.8 10^3/uL (0.2-0.9); Monocytes % 9.6 %; Neutrophils # 6.25 10^3/uL (1.8-7.7); Neutrophils % 71.8 %; Nucleated Red Blood Cells % 0 %; Platelet Count 178 10^3/cmm (130-400); Red Blood Count 5.77 10^6/uL (4.1-5.3); Red Cell Distribution Width 17.2 % (12.1-15.1); White Blood Count 8.7 10^3/uL (4.0-10.0)
[2020-07-25 06:31] LABS: Glucose Point of Care 86 mg/dL (70-110)
[2020-07-25 06:39] LABS: Alanine Aminotransferase 26 U/L (0-41); Albumin Level 3.1 g/dL (3.5-5.2); Alkaline Phosphatase 51 IU/L (40-130); Anion Gap 11.5 (5-19); Aspartate Amino Transferase 19 U/L (0-40); Blood Urea Nitrogen 28 mg/dL (8-23); Calcium 9.4 mg/dL (8.5-10.5); Carbon Dioxide 28 mmol/L (22-29); Chloride 103 mmol/L (98-107); Globulin 2.4 g/dL (1.3-4.6); Glomerular Filtration Rate 84.4 mL/min (90-130); Glucose 100 mg/dL (65-115); Osmolality Calculated 285 mOsm/kg (285-295); Potassium 3.5 mmol/L (3.5-5.1); Sodium 139 mmol/L (136-145); Total Bilirubin 0.4 mg/dL (0.15-1.2); Total Protein 5.5 g/dL (6.6-8.7)
[2020-07-25] MEDS: carvedilol 6.25 mg Tablet PO (09:58)
[2020-07-25] MEDS: aspirin 81 mg EC Tablet PO (09:58)
[2020-07-25] MEDS: predniSONE 5 mg Tablet 10 MG PO (09:58)
[2020-07-25] MEDS: citalopram 20 mg Tablet 10 MG PO (09:58)
[2020-07-25] MEDS: pantoprazole DR 40 mg Tablet PO (09:58)
[2020-07-25] MEDS: potassium chloride ER 10 mEq Tablet 20 MEQ PO (09:59)
[2020-07-25] MEDS: tamsulosin 0.4 mg Capsule PO (09:59)
[2020-07-25] MEDS: dilTIAZem ER (24HR) 120 mg Capsule PO (09:59)
[2020-07-25] MEDS: budesonide 0.5 mg/2 mL Neb INHALATION (10:10)
--- NOTE | 2020-07-25 10:12 | PM.DCS ---
Discharge Providers Date of Admission: 07/21/20 14:23 Date of Discharge: July 25, 2020 Attending Provider at Admission: Anjana Downing MD Attending Provider at Discharge: Osman Curtis MD Primary Care Provider: Faustina Gonzalez NP Diagnoses at Discharge Discharge Diagnosis (1) Pyelonephritis: Status: Acute (2) Diarrhea: Status: Acute Qualifiers: Diarrhea type: unspecified type Qualified Code(s): R19.7 - Diarrhea, unspecified (3) Elevated troponin: Status: Acute (4) Chronic use of steroids: Status: Acute (5) Immunosuppression: Status: Acute (6) Rheumatoid arthritis: Status: Acute (7) Congestive heart failure: Status: Acute Qualifiers: Heart failure chronicity: acute on chronic Heart failure type: unspecified Qualified Code(s): I50.9 - Heart failure, unspecified (8) Hypoxia: Status: Acute (9) Atrial fibrillation: Status: Acute (10) Chronic anticoagulation: Status: Acute (11) Subtherapeutic international normalized ratio (INR): Status: Acute (12) Essential hypertension: Status: Acute (13) Diabetes: Status: Acute (14) Altered mental status: Status: Acute Qualifiers: Altered mental status type: unspecified Qualified Code(s): R41.82 - Altered mental status, unspecified Reason for Visit Reason for Visit: CHILLS, FEVER, WEAKNESS Hospital Course Discharge Summary: Ry Loyd is a 64 year old male with past medical history of atrial fibrillation, early dementia, chronic diastolic heart failure, hypertension, type 2 diabetes mellitus, rheumatoid arthritis on leflunomide and chronic steroids, post TAVR, history of infective endocarditis on chronic amoxicillin, C. difficile earlier in November, history of stroke, chronic anticoagulation with warfarin who was brought into the ER today by EMS. Most of the history taken via phone by . She states patient was in his baseline health till last night. Today morning he woke up around 4 AM as he was feeling hungry and ate what was in the refrigerator. When patient's woke up in the morning she saw patient having chills and rigors along with some difficulty in breathing so she called EMS. On arrival EMS found that patient was febrile with temperature going up to 101 Fahrenheit. Patient has not been having any cough, runny nose, flulike symptoms, abdominal pain, nausea, vomiting. Patient has been having occasional dysuria. Patient also has been having recurrent urinary infections which have been treated with nitrofurantoin. On examination patient is lying comfortably in the recliner. He denies of having any nausea, vomiting. Complains of occasional difficulty in breathing. Denies of having any cough, expectoration, dysuria. Patient did have a large bowel movement in the ER which was soft, not foul-smelling, mixed with liquid bowel movements. Blood work in the ER showed a white count of 14.5, hemoglobin of 12.8, left shift with neutrophil of 12.6, INR of 1.83, ABG showing PO2 of 321 with a PCO2 of 40 on 15 L nasal cannula oxygen supplementation, BMP showing a sodium of 140, creatinine of 1.0, BUN of 23, lactic acidosis of 2.7 which came down to 2, baseline troponin of 131 down to 106 with a delta of -24, proBNP of 1516, urinalysis showing negative nitrite negative leuk esterase with 1+ bacteria, negative flu, negative rapid COVID [address] abdomen pelvis with contrast was done in the ER which showed moderate bilateral perinephric stranding increased since prior studies, bilateral simple renal cyst. Patient was on 2 L nasal cannula saturating 94% with blood pressure 96/50, heart rate of 90 bpm. He is admitted to the floors. CT chest was done and pneumonia was ruled out because patient was mildly hypoxic on admission. Patient required oxygen only for the first night. Since then patient has been on room air saturating more than 92%. Blood cultures were taken and he was started on broad-spectrum antibiotics. 2 sets out of 4 from day of admission were positive for coag negative staph. Repeat blood cultures have been negative, patient has remained hemodynamically stable and afebrile so most likely blood cultures from admission were contaminant. Patient has been continued on antibiotics till the day of discharge and has received overall antibiotics for 4 days. On admission patient was found to have subtherapeutic INR for which his dose of warfarin has been changed from 10 mg and 7.5 mg on every alternate day to 10 mg from Monday to Monday and 7.5 mg on Monday. His hospital stay has been unremarkable. He is been discharged in hemodynamically stable condition with advised to follow-up with his primary care provider within next 7 to 10 days and to repeat his INR in 2 weeks. Physical Exam Narrative: EXAM NARRATIVE: General: No acute distress, AO x3, mildly confused HEENT: PERRLA, pupils bilaterally equal and reactive Chest: Normal vesicular breath sounds, bilateral occasional rhonchi, equal good air entry bilaterally CVS: S1-S2 regular, no murmurs, no tachycardia, no gallops, no rubs Abdomen: Soft, obese, nontender, no organomegaly, bowel sounds present Neuro: No focal deficits, no facial deformity, AO x3, power 5/5 in all limbs Urinary Catheter Management^: Arriola: Cath Placed During This Visit: yes, but has since been removed by the nurse Reason for Continuing Indwelling Catheter: Decision to DC Catheter Urinary Catheter Date of Insertion: 07/21/20 Urinary Catheter Time of Insertion: 12:28 Date Urinary Catheter Removed: 07/22/20 Time Urinary Catheter Discontinued: 11:30 Discharge Data Data Completed and Pending: Completed Studies During Hospitalization Category Date Time Status CT abdomen pelvis w con* [id number] Stat Cat Scan 07/21/20 11:[address] chest wo con 7 1250 Urgent Cat Scan 07/21/20 16:[address] head wo con* 7 0450 Stat Cat Scan 07/21/20 11:29 Completed XR chest 1V olga lidia ble [id number] Stat Exams 07/21/20 11:29 Completed Pending at discharge Category Date Time Status Blood Culture Sta t Lab 07/21/20 11:55 Results Blood Culture Sta t Lab 07/22/20 11:25 Results Clostridioides Di fficile PCR Stat Lab 07/21/20 11:50 Received Vancomycin Trough Timed Lab 07/25/20 16:00 Ordered Labs from last 24 hours 07/25/20 07/25/20 07/25/20 06:13 05:35 05:35 WBC RBC Hgb Hct MCV MCH MCHC RDW Plt Count MPV Neut % (Auto) Lymph % (Auto) [place] % (Auto) Eos % (Auto) Baso % (Auto) Neut # (Auto) Lymph # (Auto) [place] # (Auto) Eos # (Auto) Baso # (Auto) Nucleated RBC % (a uto) Nucleated RBCs # Sodium 139 Potassium 3.5 Chloride 103 Carbon Dioxide 28 Anion Gap 11.5 BUN 28 H Creatinine 0.9 GFR Calculation 84.4 L Glucose 100 POC Glucose 86 Calculated Osmolal ity 285 Calcium 9.4 Total Bilirubin 0.4 AST 19 ALT 26 Alkaline Phosphata se 51 Total Protein 5.5 L Albumin 3.1 L Globulin 2.4 Vancomycin Trough Cancelled 07/25/20 07/24/20 07/24/20 05:35 20:06 16:46 WBC 8.7 RBC 5.77 H Hgb 10.8 L Hct 36.7 L MCV 63.6 L MCH 18.7 L MCHC 29.4 L RDW 17.2 H Plt Count 178 MPV 11.0 H Neut % (Auto) 71.8 Lymph % (Auto) 15.1 [place] % (Auto) 9.6 Eos % (Auto) 1.9 Baso % (Auto) 0.9 Neut # (Auto) 6.25 Lymph # (Auto) 1.3 [place] # (Auto) 0.8 Eos # (Auto) 0.2 Baso # (Auto) 0.1 Nucleated RBC % (a uto) 0 Nucleated RBCs # 0.0 Sodium Potassium Chloride Carbon Dioxide Anion Gap BUN Creatinine GFR Calculation Glucose POC Glucose 253 245 Calculated Osmolal ity Calcium Total Bilirubin AST ALT Alkaline Phosphata se Total Protein Albumin Globulin Vancomycin Trough 07/24/20 11:29 WBC RBC Hgb Hct MCV MCH MCHC RDW Plt Count MPV Neut % (Auto) Lymph % (Auto) [place] % (Auto) Eos % (Auto) Baso % (Auto) Neut # (Auto) Lymph # (Auto) [place] # (Auto) Eos # (Auto) Baso # (Auto) Nucleated RBC % (a uto) Nucleated RBCs # Sodium Potassium Chloride Carbon Dioxide Anion Gap BUN Creatinine GFR Calculation Glucose POC Glucose 101 Calculated Osmolal ity Calcium Total Bilirubin AST ALT Alkaline Phosphata se Total Protein Albumin Globulin Vancomycin Trough Vitals: Last Vital Signs Temp 98 F 07/25/20 04:00 Pulse 92 07/25/20 04:00 Resp 23 H 07/25/20 04:00 BP 160/90 07/25/20 04:40 Pulse Ox 93 07/25/20 04:00 Discharge Plan Discharge Patient Disposition: Home Condition: Stable Prescriptions: [place] Jantoven 10 mg Tablet 10 mg PO MoTuWeThFr@1400 Qty: 30 RF: 0 Jantoven 7.5 mg Tablet 7.5 mg PO SuSa@1400 Qty: 15 RF: 0 Continued tamsulosin 0.4 mg capsule 0.4 mg PO DAILY RF: 0 citalopram [Celexa] 10 mg tablet 10 mg PO DAILY RF: 0 leflunomide 20 mg tablet 20 mg PO DAILY RF: 0 furosemide 40 mg tablet 40 mg PO QAM RF: 0 Lantus U-100 Insulin 100 unit/mL solution See Rx Instructions .ROUTE .COMPLEX RF: 0 nitroglycerin [Nitrostat] 0.4 mg tablet, sublingual 0.4 mg SUBLINGUAL Q5M PRN (Reason: Chest Pain) RF: 0 aspirin [Adult Aspirin Regimen] 81 mg tablet,delayed release (DR/EC) 81 mg PO DAILY RF: 0 lisinopril 2.5 mg tablet 2.5 mg PO DAILY RF: 0 prednisone 5 mg tablet 10 mg PO DAILY Qty: 60 RF: 3 carvedilol 12.5 mg Tablet 6.25 mg PO BID RF: 0 cholecalciferol (vitamin D3) [Vitamin D3] 25 mcg (1,000 unit) Capsule 4,000 unit PO DAILY RF: 0 Saccharomyces boulardii [Florastor] 250 mg Capsule 250 mg PO DAILY RF: 0 potassium chloride 20 mEq Tablet Extended Release 20 meq PO DAILY RF: 0 atorvastatin 40 mg PO QPM RF: 0 tramadol [Ultram] 50 mg Tablet 50 mg PO Q4H PRN (Reason: Pain) RF: 0 pantoprazole [Protonix] 40 mg Tablet,Delayed Release (Dr/Ec) 40 mg PO DAILY RF: 0 amoxicillin 500 mg Capsule 500 mg PO BID RF: 0 Tylenol Arthritis Pain 650 mg Tablet Extended Release 650 mg PO PRN RF: 0 diltiazem HCl 120 mg capsule,extended release 24hr 120 mg PO DAILY RF: 0 Discontinued warfarin 5 mg Tablet See Rx Instructions .ROUTE .COMPLEX RF: 0 Discharge Orders: Discharge Order (Routine); Ordered 07/25/20 Ordered By: Osman Curtis Referrals: Faustina Gonzalez, ANA [Primary Care Provider] - 7-10 days ([facility] [place] will contact you to schedule an follow-up appointment with Faustina Gonzalez NP-C in 7 to 10 days. If you haven't heard from them by Monday afternoon. Please, call ) Discharge Diet: Usual diet, Cardiac and Diabetic Discharge Activity: Resume usual activity and Increase activity as tolerated Patient Instructions: Warfarin (By mouth), Atrial Fibrillation (DC), Hypertension (DC), Hypoxia (GEN), CHF Stoplight Activity Restrictions/Additional Instructions: Please check INR in 2 weeks. Discharge Attestations Time Spent in Discharge Care*: greater than 30 min Status at Discharge: Cognitive status at discharge: cognitively intact, Behavioral status at discharge: cooperative, Functional status at discharge: independent ambulation Overall status at discharge: patient is back to baseline Quality Metrics Clinical Quality Measures During this hospital stay, did patient experience: None Coding Level of Care Code Acute Mule Rider for g Fwd Diagnoses Pyelonephritis N12 Diarrhea R19.7 Diarrhea type: unspecified type Elevated troponin R79.89 Chronic use of steroids Immunosuppression D89.9 Rheumatoid arthritis M06.9 Congestive heart failure I50.9 Heart failure chronicity: acute on chronic Heart failure type: unspecified Hypoxia R09.02 Atrial fibrillation I48.91 Chronic anticoagulation Z79.01 Subtherapeutic international normalized ratio (INR) R79.1 Essential hypertension I10 Diabetes E11.9 Altered mental status R41.82 Altered mental status type: unspecified
--- NOTE | 2020-07-25 11:01 | PC.NURSE ---
CONTACTED ABOUT PREFERRED PHARMACY ; THE PREFERRED PHARMACY CLOSES AT 1400 YET DID NOT WANT ANOTHER PHARMACY USED ; SHE STATED THAT SHE WOULD USE THE MEDICATION SHE HAS AT HOME TO GET THE NEW DOSE AND STATION BAGGAGE PORTER THE NEW RX ON MONDAY WHEN THE PHARMACY OPENS
--- NOTE | 2020-07-25 11:04 | PC.NURSE ---
PATIENT AND SON NOTIFIED OF DC
--- NOTE | 2020-07-25 11:24 | PC.CHAP ---
Pastoral Care Encounter/Spiritual Assessment Type of Contact [] Declined fruit bar maker visit [] Patient/Family/Request visit [] Outpatient visit [] Follow-up visit [] Physician referral [] Code/Alert [XX] Routine visit [XX] Staff referral [] Actively dying [] Patient sleeping [] Family support [] [] Out of room [] Palliative care [] [] Receiving care in room [] Pre-surgical visit [] Trauma [] Long length of stay [] ICU visit [] Other: Relational/Emotional Strength [XX] Patient feels connected with others/family/visitors/staff [] Distress [] Loneliness/isolation [] Abandonment Spirituality of Patient [] Person of Nellie [] Attends Mosque of their Nellie [] Believes in Prayer [] Reads Bible or Bahai materials [] There are Spiritual issues to be addressed Leg Man Interventions [] Prayer [] Active listening [] Non-anxious presence [] Spiritual/emotional support [] Crisis/trauma care [] Spiritual counseling [] Bereavement support [] Provided bereavement packet [] Provided Bible/devotional materials [] Provided toy/stuffed animal, coloring book to patient or family member [] Provided Communion [] Anointing/[place] [] Salvation [] Completed spiritual assessment [XX] Other: Nurse asked me to take him a snack. Impact on Illness or Injury [] Angry [] Fearful [] Anxious [] Often cries [] Exhaustion [] Unable to work [] Unable to attend baptism [] Unable to walk/stand [] Unable to read [] Unable to drive [] Unable to eat/drink [] Unable to sleep [] Unable to be with family [] Patient intubated [] Other: Summary: Pt states that he had a stroke. In speaking with him, his cognition was not 100%. He reports having a and that he is going home today. I offered prayer, which he accepted. Time spent with patient: 5 mins
[2020-07-25 11:59] LABS: Glucose Point of Care 223 mg/dL (70-110)
--- NOTE | 2020-07-25 13:14 | PC.NURSE ---
PATIENT GIVEN DISCHARGE INSTRUCTIONS AND VERBALIZED UNDERSTANDING ; IV REMOVED WITH PRESURE DRESSING APPLIED WITH NO BLEEDING NOTED ; VSS ; PATIENT DENIED ANY PAIN OR SOB AT THIS TIME ; PATIENT TO EXIT VIA WHEELCHAIR
== END 2020-07-25 12:45 | disposition home or self-care (01) | DRG 690 ==
LOC: ER 14:28 → CSU 15:33
PROVIDERS: Emergency Medicine; Admitting Provider Student in an Organized Health Care Education/Training Program; PCP Nurse Practitioner Family; Visit Provider Student in an Organized Health Care Education/Training Program
DX: N10 Acute pyelonephritis (principal); I13.0 Hypertensive heart and chronic kidney disease with heart failure and stage 1 through stage 4 chronic kidney disease, or unspecified chronic kidney disease; I50.32 Chronic diastolic (congestive) heart failure; J98.11 Atelectasis; Z68.41 Body mass index [BMI] 40.0-44.9, adult; E11.22 Type 2 diabetes mellitus with diabetic chronic kidney disease; M06.9 Rheumatoid arthritis, unspecified; I48.91 Unspecified atrial fibrillation; R09.02 Hypoxemia; D89.9 Disorder involving the immune mechanism, unspecified; R19.7 Diarrhea, unspecified; Z79.52 Long term (current) use of systemic steroids; F03.90 Unspecified dementia, unspecified severity, without behavioral disturbance, psychotic disturbance, mood disturbance, and anxiety; Z79.01 Long term (current) use of anticoagulants; Z79.82 Long term (current) use of aspirin; G47.33 Obstructive sleep apnea (adult) (pediatric); E78.5 Hyperlipidemia, unspecified; Z86.73 Personal history of transient ischemic attack (TIA), and cerebral infarction without residual deficits; E66.9 Obesity, unspecified; Z87.891 Personal history of nicotine dependence; N18.9 Chronic kidney disease, unspecified
CPT/HCPCS: 12345; 36415; 36416; 36600; 51702; 70450; 71045; 71250; 74177; 80051; 80053; 80202; 80306; 80307; 81001; 82009; 82140; 82274; 82550; 82810; 82962; 83036; 83540; 83550; 83605; 83630; 83690; 83735; 83880; 83986; 84100; 84145; 84443; 84484; 85025; 85610; 85730; 86403; 87040; 87086; 87205; 87426; 87449; 87493; 87506; 87641; 87804; 93005; 94640; 94664; 96372; 96375; 97110; 97116; 97161; 97530; 99284; J0743; J1200; J1720; J1815 ×2; J1940; J2405; J2543; J3370; J3490; J7030; J7040; J7050; J7512; J7626; Q9967; S0030

== ENCOUNTER 2020-08-05 06:00 | Outpatient (RCR) | payer MEDICARE, OTHER, SELFPAY | END 2020-08-19 23:59 | disposition home or self-care (01) | LOC: MST 06:00 | PROVIDERS: PCP Nurse Practitioner Family; Referring Provider Psychiatry & Neurology Neurology; Visit Provider Psychiatry & Neurology Neurology | DX: I69.30 Unspecified sequelae of cerebral infarction (principal) | CPT/HCPCS: 92507; 92523; 92526; 92610 ==

== ENCOUNTER → 2020-08-14 09:44 | Outpatient (BNVA) | payer MEDICARE, OTHER, SELFPAY | PROVIDERS: PCP Nurse Practitioner Family; Visit Provider Internal Medicine | DX: M06.9 Rheumatoid arthritis, unspecified (principal); M10.9 Gout, unspecified; Z79.52 Long term (current) use of systemic steroids | CPT/HCPCS: 99213 ==

== ENCOUNTER 2020-08-20 06:00 | Outpatient (RCR) | payer MEDICARE, OTHER, SELFPAY | END 2020-09-19 23:59 | disposition home or self-care (01) | LOC: MPT 06:00 | PROVIDERS: PCP Nurse Practitioner Family; Referring Provider Nurse Practitioner Family; Visit Provider Nurse Practitioner Family | DX: I69.920 Aphasia following unspecified cerebrovascular disease (principal); F03.90 Unspecified dementia, unspecified severity, without behavioral disturbance, psychotic disturbance, mood disturbance, and anxiety | CPT/HCPCS: 97110; 97116 ==

== ENCOUNTER 2020-08-20 06:00 | Outpatient (RCR) | payer MEDICARE, OTHER, SELFPAY | END 2020-09-19 23:59 | disposition home or self-care (01) | LOC: MST 06:00 | PROVIDERS: PCP Nurse Practitioner Family; Referring Provider Psychiatry & Neurology Neurology; Visit Provider Psychiatry & Neurology Neurology | DX: I63.9 Cerebral infarction, unspecified (principal); R41.89 Other symptoms and signs involving cognitive functions and awareness | CPT/HCPCS: 92507; 92526 ==

== ENCOUNTER 2020-08-24 10:37 | Outpatient (CLI) | payer MEDICARE, OTHER, SELFPAY ==
[2020-08-24 12:55] LABS: Basophils # 0.1 10^3/uL (0.0-0.1); Basophils % 0.8 %; Eosinophils # 0.1 10^3/uL (0.0-0.8); Eosinophils % 1.1 %; Hematocrit 43.1 % (42.0-52.0); Hemoglobin 12.7 g/dL (11.7-16.6); Lymphocytes # 1.1 10^3/uL (0.8-4.8); Lymphocytes % 10.5 %; Mean Corpuscular HGB Conc 29.5 g/dL (30.0-36.0); Mean Corpuscular Hemoglobin 18.8 pg (28.0-34.0); Mean Corpuscular Volume 63.7 fL (80-94); Monocytes # 0.7 10^3/uL (0.2-0.9); Monocytes % 7.2 %; Neutrophils # 8.06 10^3/uL (1.8-7.7); Neutrophils % 79.8 %; Nucleated Red Blood Cells % 0.2 %; Platelet Count 175 10^3/cmm (130-400); Red Blood Count 6.77 10^6/uL (4.1-5.3); Red Cell Distribution Width 18.9 % (12.1-15.1); White Blood Count 10.1 10^3/uL (4.0-10.0)
[2020-08-24 13:07] LABS: Alanine Aminotransferase 37 U/L (0-41); Alkaline Phosphatase 64 IU/L (40-130); Anion Gap 14.2 (5-19); Aspartate Amino Transferase 24 U/L (0-40); Blood Urea Nitrogen 31 mg/dL (8-23); Calcium 9.4 mg/dL (8.5-10.5); Carbon Dioxide 26 mmol/L (22-29); Chloride 102 mmol/L (98-107); Globulin 2.2 g/dL (1.3-4.6); Glomerular Filtration Rate 84.4 mL/min (90-130); Glucose 173 mg/dL (65-115); Iron 66 ug/dL (59-158); Lactate Dehydrogenase 233 U/L (135-225); Osmolality Calculated 297 mOsm/kg (285-295); Percent Saturation 22.9 % (20-50); Potassium 4.2 mmol/L (3.5-5.1); Sodium 138 mmol/L (136-145); Total Bilirubin 0.6 mg/dL (0.15-1.2); Total Iron Binding Capacity 287 mcg/dl; Total Protein 6.2 g/dL (6.6-8.7); Unsaturated Iron Binding 221 ug/dL (112-347)
[2020-08-24 13:13] LABS: LAB Peripheral Smear Sent for Review
[2020-08-24 13:23] LABS: Vitamin B12 472 pg/mL (232-1245)
[2020-08-24 13:35] LABS: Slide Review Slide Review Perform
[2020-08-24 14:02] LABS: Prostate Specific Antigen 0.381 ng/mL (0-4)
--- NOTE | 2020-08-24 19:17 | ONC CON_ITS ---
Dr. Clements New Patient Note Patient: Ry Loyd V Unit #: [id number]: 1955 Dicatated By: Henry Clements M.D.Date of Visit: Aug 24, 2020 Onc MED New Patient/Consult Referring Physician: Yaima Steele Chief Complaint: Anemia. History of Present Illness: This is a 64 year-old man with macrocytic anemia. This patient has multiple medical illnesses including hypertension, hyperlipidemia, and type 2 diabetes, aortic valve stenosis, rheumatoid arthritis, obstructive sleep apnea, nephrolithiasis, and gout. He has had multiple strokes, and the reason of which was in November of this year. He also has associated dementia, which has worsened since then. He is known to have a mild chronic anemia, previously diagnosed as thalassemia. I had seen him in October 2015 in regard to a mild leukocytosis. It appeared to be reactive. His CBC at that time showed a borderline low hemoglobin at 12.6 g with significantly hypochromic/microcytic red cell indices, consistent with thalassemia trait. I did not pursue evaluation for it at that time, as it was an established diagnosis and his son had also been diagnosed with thalassemia. I am asked to see him now in regard to the anemia. In reviewing his records, he has had multiple blood counts, all of which show borderline to mild anemia with significantly hypochromic/microcytic red cell indices. The white blood cell counts vary from normal to slightly elevated. His platelet counts have consistently been normal. His serum iron studies from 07/21/2020 showed normal transferrin saturation at 31%. He is chronically ill and he has limited activity. He does some walking at home and he is getting physical therapy and speech therapy. His ECOG score is 2. He has good appetite. He has no fever or night sweats. His breathing has been okay. He has just a little bit of cough. He has been on long-term antibiotic suppression for bacterial endocarditis. He has bowel and bladder incontinence with the dementia. He has no other GI or complaints. He has joint pain, mainly in the arms, hands, and knees. He also has gout in his right hand. He does not complain of headache. He sometimes has dizziness. He does not appear to have any focal neurologic symptoms. He does sleep a lot during the daytime, and he frequently does not sleep well at night. Past Medical History: His medical history includes anxiety, dementia, diabetes type II, dyslipidemia, gout, history of strokes, hypertension, aortic stenosis, nephrolithiasis, obstructive sleep apnea, pulmonary hyertension, rheumatoid arthritis, and thalassemia. Past Surgical History: He underwent TAVR surgery in September 2018. He has surgery for left kidney stone in 1979 and right kidney stone in 1975. Medications: Amoxicillin 1 Tablet (of 500 mg) Oral daily, Aspirin 1 Tablet (of 81 mg) Tablet, enteric coated Oral daily, Atorvastatin Calcium 1 Tablet (of 40 mg) Oral daily, Carvedilol 1 Tablet (of 6.25 mg) Oral daily, Citalopram Hydrobromide 1 Tablet (of 10 mg) Oral daily, Diltiazem HCl ER 1 (120 mg) Capsule SR 24 HR Oral daily, Furosemide 1 Tablet (of 40 mg) Oral daily, Lantus 70 Units (of 100 Units/mL) Subcutaneous b.i.d., Lisinopril 1 Tablet (of 2.5 mg) Oral daily, Pantoprazole Sodium 1 Tablet (of 40 mg) Tablet, enteric coated Oral daily, Potassium Chloride ER 1 Tablet Tablet, controlled release Oral daily, predniSONE 1 Tablet (of 10 mg) Oral daily, Tamsulosin HCl 1 Capsule (of 0.4 mg) Oral daily, traMADol HCl Tablet Oral PRN, Vitamin D3 1 Tablet (of 4000 mg) Oral daily, Warfarin Sodium Tablet Oral on Every Other Day Allergies: cefTRIAXone Sodium, Clopidogrel Bisulfate, Iodine, levoFLOXacin, and Vancomycin HCl. Social History: Mr. Loyd is and he is disabled. He has no history of drinking. He is a nonsmoker. He has a history of chewing 1 can of chew every three days. He has quit. He does not drink alcohol. Family History: Father of heart attack at age 50. Mother also had heart disease and of stroke at age 52. A 58 year-old sister has congestive heart failure. One brother of kidney disease. Two brothers also have heart disease. Two brothers of prostate cancer. He has one son who also has thalassemia. Review Of Symptoms: Constitutional - He has limited activity, he does tend to sleep all the time. However, he is up and around at home. He has good appetite. He has no fever or night sweats. ECOG score is 2, Eyes - No change in vision, ENMT - He is little hard of hearing. No tinnitus. He has occasional sinus congestion/drainage. No mouth sores. No sore throat or difficulty swallowing, Hematologic/Lymphatic - He has easy bruising on warfarin, Respiratory - His breathing has been okay. He has a little bit of cough. No pleuritic pain or hemoptysis, Cardiovascular - No angina pain. No palpitations. He has been on long-term antibiotic suppression for endocarditis, Gastrointestinal - No nausea or vomiting. No heartburn or acid reflux. No diarrhea or constipation and no blood in the stool, but he has bowel incontinence, Genitourinary (M) - No dysuria or hematuria. He also has bladder incontinence, Musculoskeletal - He has joint pain associated with the rheumatoid arthritis, mainly in the hands, arms, and knees. He also has gout in his right hand, Integumentary - No skin rash, Neurologic - No headache. He is sometimes dizzy. No numbness or tingling. No other focal neurologic symptoms, Psychiatric - He sometimes has anxiety, but not bad. He does not sleep well at night, as he tends to sleep a lot during the daytime. Vital Signs: Performed on Aug 24, 2020 11:19: 0, 36.96 (HIGH), 2.38 sq.m, 71.00 in, 97 %, 84 /min, 26 /min, 124/84 mm(hg), 97.8 F (LOW), and 265 lbs (LOW). Physical Examination: Constitutional - He appears generally weak and chronically ill, Eyes - Sclerae nonicteric. Conjunctivae clear, ENMT - No lesions noted in the oral cavity, Hematologic/Lymphatic - No cervical, clavicular, or axillary adenopathy, Respiratory - Lungs are clear with good air movement bilaterally, Cardiovascular - Heart rhythm is irregular. There is no murmur, gallop, or rub noted, Abdomen - Moderately distended. Liver and spleen are not enlarged. There is no abdominal mass or ascites noted and there is no inguinal adenopathy, Extremities - Mild edema of the ankles and feet, worse on the left, Integumentary - No rashes. No suspicious skin lesions noted, Neurologic - No focal neurologic deficits noted. Impression: 1. Patient with hypochromic/microcytic anemia which has previously been diagnosed as and appears clinically consistent with thalassemia trait. 2. He has had multiple strokes. He has associated dementia, which has worsened following his most recent stroke in November 2019. 3. He underwent TAVR surgery for aortic stenosis in September 2018. He had subsequently developed bacterial endocarditis. His other medical illnesses include: 4. Hypertension. 5. Hyperlipidemia. 6. Type 2 diabetes. 7. Obstructive sleep apnea. 8. Nephrolithiasis. 9. Chronic anxiety. 10. Family history of prostate cancer. Plan: His is already quite familiar with his thalassemia diagnosis. I do not think an extensive evaluation is indicated. I do want to repeat the CBC and review the blood smear. I would like to recheck serum iron studies and a B12 level to make sure he does not have coexistent iron deficiency or B12 deficiency. I do not anticipate any further evaluation will be necessary, and I will just plan to see him again as needed. Signed By: Henry Clements M.D. <<Signature on File>>
== END 2020-08-24 10:38 | disposition home or self-care (01) ==
LOC: ONCMED 10:41
PROVIDERS: PCP Nurse Practitioner Family; Visit Provider Internal Medicine Medical Oncology
DX: D56.9 Thalassemia, unspecified (principal); I69.318 Other symptoms and signs involving cognitive functions following cerebral infarction; F03.90 Unspecified dementia, unspecified severity, without behavioral disturbance, psychotic disturbance, mood disturbance, and anxiety; R39.81 Functional urinary incontinence; Z80.42 Family history of malignant neoplasm of prostate; I10 Essential (primary) hypertension; E78.5 Hyperlipidemia, unspecified; E11.9 Type 2 diabetes mellitus without complications; G47.33 Obstructive sleep apnea (adult) (pediatric); N20.0 Calculus of kidney; F41.9 Anxiety disorder, unspecified
CPT/HCPCS: 36415; 80053; 82607; 83540; 83550; 83615; 84153; 85025; 99203

== ENCOUNTER 2020-09-20 06:00 | Outpatient (RCR) | payer MEDICARE, OTHER, SELFPAY | END 2020-10-19 23:59 | disposition home or self-care (01) | LOC: MPT 06:00 | PROVIDERS: PCP Nurse Practitioner Family; Referring Provider Nurse Practitioner Family; Visit Provider Nurse Practitioner Family | DX: R47.01 Aphasia (principal); F03.90 Unspecified dementia, unspecified severity, without behavioral disturbance, psychotic disturbance, mood disturbance, and anxiety | CPT/HCPCS: 97110; 97116 ==

== ENCOUNTER 2020-10-03 09:43 | Inpatient (IN) | payer MEDICARE, OTHER, SELFPAY ==
[2020-10-03] VITALS (8 sets, daily range): BP systolic 84–137; BP diastolic 44–84; PULSE 83–104; RESP 18–32; TEMP 36.7–36.9; O2SAT 91–95; BMI 50.2
--- NOTE | 2020-10-03 09:59 | XRR_ITS ---
PROCEDURE INFORMATION: Exam: XR Chest, 1 View Exam date and time: 10/03/2020 10:05 AM Age: 64 years old Clinical indication: Shortness of breath; Patient HX: Limited HX due to PT condition, PT on covid precautions. Weakness/fever TECHNIQUE: Imaging protocol: XR of the chest Views: 1 view. COMPARISON: CT chest con [id number] 07/21/2020 4:31 PM FINDINGS: Lungs: Unremarkable. No consolidation. Pleural space: Unremarkable. No pleural effusion. No pneumothorax. Heart/Mediastinum: Heart is not enlarged. Vasculature: A prosthetic valve projects on the aortic valve.. Bones/joints: Unremarkable. XR/XR chest 1V portable [id number] IMPRESSION: No acute abnormalities are seen in the chest.
--- NOTE | 2020-10-03 09:59 | ECG_ITS ---
[facility] Test Date: 2020-10-03 Pat Name: Ry Loyd Department: Room: Gender: Male [employer] Ebs Architect: : 1955 Requested By: Schuyler Smith Order Number: [id number] Morena MD: Layla Cazares M.D. Measurements Intervals [place] Rate: 98 P: [place]: -1 QRS: -36 QRSD: 88 T: 123 QT: 347 QTc: 444 Interpretive Statements ATRIAL FIBRILLATION LEFT AXIS DEVIATION [QRS AXIS < -30] PATTERN CONSISTENT WITH PULMONARY DISEASE MODERATE VOLTAGE CRITERIA FOR LVH, CONSIDER NORMAL VARIANT [MEETS CRITERIA IN ONE OF: R(aVL), S(V1), R(V5), R(V5/V6)+S(V1)] MODERATE T-WAVE ABNORMALITY, CONSIDER LATERAL ISCHEMIA [-0.1+ mV T WAVE IN I/aVL/V5/V6] Compared to ECG 07/21/2020 14:50:02 Left-axis deviation now present T-wave abnormality still present Possible ischemia still present Electronically Signed On 10-03-2020 18:57:15 ASSISTANT CHIEF ENGINEER by Layla Cazares M.D. [id number]
--- NOTE | 2020-10-03 10:10 | W.ED.WEAKNES ---
HPI - Weakness General: Chief complaint: Weakness Stated complaint: WEAKNESS, LOW GRADE FEVER Time Seen by Provider: 10/03/20 09:52 Source: patient Mode of arrival: ambulatory Limitations: no limitations History of Present Illness: HPI Narrative: 64-year-old male states he has been having generalized weakness along with low-grade fevers. Patient had difficulty transferring from his motorized scooter to states he feels ill. He had a temperature 99.5 at home. He has had frequent UTIs in the past. Denies any cough or shortness of breath. Denies any pain anywhere. Associated symptoms: Reports chills; Denies chest pain, dysuria, easy bruising, nausea or vomiting Review of Systems Const: Reports: chills Eyes: Denies: blurry vision or eye discomfort ENMT: Denies: throat pain or dental pain Card: Denies: chest pain Resp: Denies: dyspnea GI: Denies: abdominal pain, nausea, vomiting or diarrhea : Denies: dysuria Musc: Denies: neck pain or back pain Skin/Breast: Denies: rash Neuro: Reports: weakness in extremities Psych: Denies: depression Aaron/Lymph: Denies: easy bruising All/Imm: Denies: urticaria PFSH ED PFSH: Medical History (Updated 10/03/20 @ 13:33 by Schuyler Smith MD) Atrial fibrillation Bilateral renal masses CHF (congestive heart failure) Chronic use of steroids CVA (cerebral vascular accident) Diabetes Dyslipidemia Edema Endocarditis Essential hypertension Gout Hx of [place] spotted fever Ischemic cardiomyopathy Left ventricular hypertrophy Obesity AJAY (obstructive sleep apnea) Pulmonary HTN Renal calculi Rheumatoid arthritis Rheumatoid arthritis Thalassemia Family History Mother Stroke Father Myocardial infarction Other CAD (coronary artery disease) Chronic kidney disease (CKD) Diabetes Hypertension Social History Smoking and tobacco status: former smoker Alcohol intake: former Marital status: History of recent travel: No Physical Exam Const: COMMON NORMALS: no acute distress and patient oriented x3 NUTRITIONAL APPEARANCE: obese HENMT: COMMON NORMALS: normocephalic and atraumatic HEAD & SCALP: normocephalic and atraumatic Eye: COMMON NORMALS: Equal, round and reactive pupils present and EOMs intact bilaterally PUPIL: Yes Equal, round and reactive pupils present Neck/C-Spine: COMMON NORMALS: full ROM and supple Chest: COMMONS NORMALS: normal inspection of the chest and normal palpation of entire chest wall Resp: COMMON NORMALS: normal respiratory effort, No retractions, No use of accessory muscles and clear to auscultation bilaterally AUSCULTATION: clear to auscultation bilaterally Cardio: COMMON NORMALS: regular rate, regular rhythm and No murmurs present (Cardio) RATE: regular rate RHYTHM: regular rhythm GI: COMMON NORMALS: Normal to inspection, nondistended, normoactive bowel sounds present, Soft to palpation, non-tender and no masses PALPATION: Yes Soft to palpation Extremity: COMMON NORMALS: normal to inspection and full ROM Neuro: COMMON NORMALS: patient oriented x3, moves all extremities and no focal motor deficits Psych: COMMON NORMALS: mental status grossly normal, Normal thought process present and cooperative THOUGHT PROCESS: Normal thought process present Skin: COMMON NORMALS: no rashes or lesions noted and no wounds GENERAL SKIN EXAM: no rashes or lesions noted Course Vital Signs: Vital signs: Vital Signs Temperature 98.4 F 10/03/20 09:52 Pulse Rate 104 H 10/03/20 09:52 Respiratory Rate 32 H 10/03/20 09:52 Blood Pressure 132/84 10/03/20 09:52 Pulse Oximetry 95 10/03/20 09:52 MDM - Weakness MDM Narrative: Medical decision making narrative: Patient presents here with generalized weakness likely from his acute cystitis. He is febrile as well. His Covid test was negative. He is normotensive here with no signs of septic shock. We will start him on antibiotics I spoke to hospitalist will admit. Lab Data: Labs: Lab Results 10/03/20 10/03/20 10/03/20 Range/Units 11:00 11:00 11:01 WBC Cancelled Corrected WBC Cancelled RBC Cancelled Hgb Cancelled Hct Cancelled MCV Cancelled MCH Cancelled MCHC Cancelled RDW Cancelled Plt Count Cancelled MPV Cancelled Gran % Cancelled Neut % (Auto) Cancelled Lymph % (Auto) Cancelled [place] % (Auto) Cancelled Eos % (Auto) Cancelled Baso % (Auto) Cancelled Neut # (Auto) Cancelled Lymph # (Auto) Cancelled [place] # (Auto) Cancelled Eos # (Auto) Cancelled Baso # (Auto) Cancelled Absolute Gran (aut o) Cancelled Nucleated RBC % (a uto) Cancelled Nucleated RBCs # Cancelled Sodium 139 (136-145) mmol/L Potassium 3.9 (3.5-5.1) mmol/L Chloride 102 (98-107) mmol/L Carbon Dioxide 27 (22-29) mmol/L Anion Gap 13.9 (5-19) BUN 29 H (8-23) mg/dL Creatinine 1.1 (0.7-1.2) mg/dL GFR Calculation 67.0 L (90-130) mL/min Glucose 198 H (65-115) mg/dL Calculated Osmolal ity 299 H (285-295) mOsm/k g Lactic Acid (0.5-2.2) mmol/L Calcium 9.5 (8.5-10.5) mg/dL Total Bilirubin 0.6 (0.15-1.2) mg/dL AST 16 (0-40) U/L ALT 22 (0-41) U/L Alkaline Phosphata se 65 (40-130) IU/L C-Reactive Protein 19.3 H (0.0-4.9) mg/L Total Protein 6.0 L (6.6-8.7) g/dL Albumin 3.7 (3.5-5.2) g/dL Globulin 2.3 (1.3-4.6) g/dL Urine Color (Yellow) Urine Appearance (CLEAR) Urine pH (5-7) Ur Specific Gravit y (1.005-1.030) Urine Protein (Negative) Urine Glucose (UA) (Normal) Urine Ketones (Negative) Urine Blood (Negative) Urine Nitrate (Negative) Urine Bilirubin (Negative) Urine Urobilinogen (Negative) mg/dL Ur Leukocyte Michelle ase (Negative) Urine RBC (0-2) /hpf Urine WBC (0-5) /hpf Ur Squamous Epith Cells (0-5) /hpf Amorphous Sediment Urine Bacteria (NONE) /hpf Influenza Type A A g (Negative) Influenza Type B A g (Negative) SARS-CoV-2 Ag (Rap id) Negative (Negative) 10/03/20 10/03/20 10/03/20 Range/Units 11:05 11:10 11:29 WBC Corrected WBC RBC Hgb Hct MCV MCH MCHC RDW Plt Count MPV Gran % Neut % (Auto) Lymph % (Auto) [place] % (Auto) Eos % (Auto) Baso % (Auto) Neut # (Auto) Lymph # (Auto) [place] # (Auto) Eos # (Auto) Baso # (Auto) Absolute Gran (aut o) Nucleated RBC % (a uto) Nucleated RBCs # Sodium (136-145) mmol/L Potassium (3.5-5.1) mmol/L Chloride (98-107) mmol/L Carbon Dioxide (22-29) mmol/L Anion Gap (5-19) BUN (8-23) mg/dL Creatinine (0.7-1.2) mg/dL GFR Calculation (90-130) mL/min Glucose (65-115) mg/dL Calculated Osmolal ity (285-295) mOsm/k g Lactic Acid 1.1 (0.5-2.2) mmol/L Calcium (8.5-10.5) mg/dL Total Bilirubin (0.15-1.2) mg/dL AST (0-40) U/L ALT (0-41) U/L Alkaline Phosphata se (40-130) IU/L C-Reactive Protein (0.0-4.9) mg/L Total Protein (6.6-8.7) g/dL Albumin (3.5-5.2) g/dL Globulin (1.3-4.6) g/dL Urine Color Yellow (Yellow) Urine Appearance Hazy A (CLEAR) Urine pH 7 (5-7) Ur Specific Gravit y 1.005 (1.005-1.030) Urine Protein Neg (Negative) Urine Glucose (UA) Norm (Normal) Urine Ketones Negative (Negative) Urine Blood Neg (Negative) Urine Nitrate Positive H (Negative) Urine Bilirubin Neg (Negative) Urine Urobilinogen Norm (Negative) mg/dL Ur Leukocyte Michelle ase 2+ H (Negative) Urine RBC None (0-2) /hpf Urine WBC 15-25 H (0-5) /hpf Ur Squamous Epith Cells None (0-5) /hpf Amorphous Sediment Not Reportable Urine Bacteria 4+ H (NONE) /hpf Influenza Type A A g Negative (Negative) Influenza Type B A g Negative (Negative) SARS-CoV-2 Ag (Rap id) (Negative) 10/03/20 Range/Units 12:26 WBC 14.6 H Corrected WBC RBC 6.51 H Hgb 12.1 Hct 40.5 L MCV 62.2 L MCH 18.6 L MCHC 29.9 L RDW 18.6 H Plt Count 164 MPV 12.0 H Gran % Neut % (Auto) 82.1 Lymph % (Auto) 8.5 [place] % (Auto) 8.0 Eos % (Auto) 0.5 Baso % (Auto) 0.5 Neut # (Auto) 11.97 H Lymph # (Auto) 1.2 [place] # (Auto) 1.2 H Eos # (Auto) 0.1 Baso # (Auto) 0.1 Absolute Gran (aut o) Nucleated RBC % (a uto) 0 Nucleated RBCs # 0.0 Sodium (136-145) mmol/L Potassium (3.5-5.1) mmol/L Chloride (98-107) mmol/L Carbon Dioxide (22-29) mmol/L Anion Gap (5-19) BUN (8-23) mg/dL Creatinine (0.7-1.2) mg/dL GFR Calculation (90-130) mL/min Glucose (65-115) mg/dL Calculated Osmolal ity (285-295) mOsm/k g Lactic Acid (0.5-2.2) mmol/L Calcium (8.5-10.5) mg/dL Total Bilirubin (0.15-1.2) mg/dL AST (0-40) U/L ALT (0-41) U/L Alkaline Phosphata se (40-130) IU/L C-Reactive Protein (0.0-4.9) mg/L Total Protein (6.6-8.7) g/dL Albumin (3.5-5.2) g/dL Globulin (1.3-4.6) g/dL Urine Color (Yellow) Urine Appearance (CLEAR) Urine pH (5-7) Ur Specific Gravit y (1.005-1.030) Urine Protein (Negative) Urine Glucose (UA) (Normal) Urine Ketones (Negative) Urine Blood (Negative) Urine Nitrate (Negative) Urine Bilirubin (Negative) Urine Urobilinogen (Negative) mg/dL Ur Leukocyte Michelle ase (Negative) Urine RBC (0-2) /hpf Urine WBC (0-5) /hpf Ur Squamous Epith Cells (0-5) /hpf Amorphous Sediment Urine Bacteria (NONE) /hpf Influenza Type A A g (Negative) Influenza Type B A g (Negative) SARS-CoV-2 Ag (Rap id) (Negative) Imaging Data^: CXR: Radiologist's impression: [address] [address] XRay Report Signed Patient: Ry Loyd V Unit #: [id number] : 1955 Age/Sex: 64 / M ADM Date: 10/03/20 Loc: ER Room/Bed: Attending Dr: Ordering Provider/Ordering MD: Schuyler Smith MD Date of Service: 10/03/20 Procedure(s): XR chest 1V portable [id number] Accession Number(s): [id number] Report Number: [id number] PROCEDURE INFORMATION: Exam: XR Chest, 1 View Exam date and time: 10/03/2020 10:05 AM Age: 64 years old Clinical indication: Shortness of breath; Patient HX: Limited HX due to PT condition, PT on covid precautions. Weakness/fever TECHNIQUE: Imaging protocol: XR of the chest Views: 1 view. COMPARISON: CT chest con [id number] 07/21/2020 4:31 PM FINDINGS: Lungs: Unremarkable. No consolidation. Pleural space: Unremarkable. No pleural effusion. No pneumothorax. Heart/Mediastinum: Heart is not enlarged. Vasculature: A prosthetic valve projects on the aortic valve.. Bones/joints: Unremarkable. XR/XR chest 1V portable [id number] IMPRESSION: No acute abnormalities are seen in the chest. EKG Data^: EKG 1: Attestation: I personally reviewed and interpreted this EKG as follows: EKG interpretation date: 10/03/20 EKG interpretation time: 10:14 Interpretation: A. fib heart rate [address] or T wave abnormalities QRS 88 QTC 402 Discharge Plan Discharge Patient Disposition: Admitted As Inpatient Clinical Impression: Weakness Acute cystitis Qualifiers: Hematuria presence: without hematuria Qualified Code(s): N30.00 - Acute cystitis without hematuria Condition: Stable Coding Level of Care Code ED Assembling Inspector for Chg Fwd Exam Comprehensive
[2020-10-03] MEDS: sodium chloride 0.9% 500 ML 999 ML IV (10:14)
[2020-10-03 11:36] LABS: Add Urine Microscopic? YES; Bilirubin Urine Neg (Negative); Blood Urine Neg (Negative); Glucose Urine UA Norm (Normal); Ketones Urine Negative (Negative); Leukocyte Esterase Urine 2+ (Negative); Nitrate Urine Positive (Negative); Protein Urine Neg (Negative); Specific Gravity, Urine 1.005 (1.005-1.030); Urine Appearance Hazy (CLEAR); Urine Color Yellow (Yellow); Urobilinogen Urine Norm (Negative); pH Urine 7 (5-7)
[2020-10-03 11:40] LABS: Add Urine Culture? Yes; Bacteria Urine 4+ /hpf; WBC Urine 15-25 /hpf (0-5)
[2020-10-03 11:44] LABS: Alanine Aminotransferase 22 U/L (0-41); Albumin Level 3.7 g/dL (3.5-5.2); Alkaline Phosphatase 65 IU/L (40-130); Anion Gap 13.9 (5-19); Aspartate Amino Transferase 16 U/L (0-40); Blood Urea Nitrogen 29 mg/dL (8-23); C Reactive Protein 19.3 mg/L (0.0-4.9); Calcium 9.5 mg/dL (8.5-10.5); Carbon Dioxide 27 mmol/L (22-29); Chloride 102 mmol/L (98-107); Globulin 2.3 g/dL (1.3-4.6); Glucose 198 mg/dL (65-115); Osmolality Calculated 299 mOsm/kg (285-295); Potassium 3.9 mmol/L (3.5-5.1); Sodium 139 mmol/L (136-145); Total Bilirubin 0.6 mg/dL (0.15-1.2)
[2020-10-03 11:52] LABS: Lactic Sepsis W/Reflex 1.1 mmol/L (0.5-2.2)
[2020-10-03 12:00] LABS: SARS Covid-2 Antigen Negative (Negative)
[2020-10-03 12:00] LABS: Influenza A by IFA Negative (Negative); Influenza B by IFA Negative (Negative)
[2020-10-03] MEDS: aztreonam 2,000 MG in sodium chloride 0.9% (plus) 100 ML 200 MG IV (12:20)
[2020-10-03 12:47] LABS: Basophils # 0.1 10^3/uL (0.0-0.1); Basophils % 0.5 %; Eosinophils # 0.1 10^3/uL (0.0-0.8); Eosinophils % 0.5 %; Hematocrit 40.5 % (42.0-52.0); Hemoglobin 12.1 g/dL (11.7-16.6); Lymphocytes # 1.2 10^3/uL (0.8-4.8); Lymphocytes % 8.5 %; Mean Corpuscular HGB Conc 29.9 g/dL (30.0-36.0); Mean Corpuscular Hemoglobin 18.6 pg (28.0-34.0); Mean Corpuscular Volume 62.2 fL (80-94); Monocytes # 1.2 10^3/uL (0.2-0.9); Neutrophils # 11.97 10^3/uL (1.8-7.7); Neutrophils % 82.1 %; Nucleated Red Blood Cells % 0 %; Platelet Count 164 10^3/cmm (130-400); Red Blood Count 6.51 10^6/uL (4.1-5.3); Red Cell Distribution Width 18.6 % (12.1-15.1); White Blood Count 14.6 10^3/uL (4.0-10.0)
--- NOTE | 2020-10-03 14:05 | P.HP_ITS ---
Providers/Chief Complaint Admitting Physician: Eva Butt MD Primary Care Provider: Faustina Gonzalez NP Chief Complaint: WEAKNESS, LOW GRADE FEVER History of Present Illness Ry Loyd is a 64 year old male with PMHx noted below presents accompanied by his who reports that over the past 1 day patient has been getting progressively weaker with some noted intermittent confusion which she thought could be due to infection as he has had multiple UTIs in the past with similar presentation. She relates that patient has an underlying history of dementia so does intermittently get confused but he was more confused than usual. He is primarily wheelchair-bound but is typically able to transfer himself in and out of his electric scooter however over the past 24 hours he has had significant difficulty doing even this and has had significant difficulty assisting him. He denies having had any discomfort with urination, blood in his urine or his stool, fever/chills though states that he felt cool yesterday. His appetite has remained about the same, no shortness of breath, chest pain, known contact with any known COVID-19 positive individuals. It seems that he is already feeling better while his been in the ER having received his first dose of aztreonam and 1 L normal saline bolus. Work-up so far indicates leukocytosis with a white count of 14.6, hemoglobin of 12.1, normal electrolytes, BUN of 29, creatinine of 1.1, lactate of 1.1, CRP of 19.3, COVID-19 rapid testing negative, urinalysis that is grossly indicative of infection, chest x-ray that is reported as unremarkable. He is somewhat hypotensive currently, minimally tachycardic with a heart rate in the 100-110 range, tachypneic though saturating in the mid 90s on room air. He is in continent at baseline. He will require further IV fluid hydration and continued IV antibiotic therapy for treatment of UTI hence need for admission. Review of Systems Const: Reports: chills and fatigue; Denies: fever(s) or change in appetite Eyes: Denies: change in vision ENMT: Reports: dry mouth Card: Denies: chest pain, swelling of feet/ankles or lightheadedness Resp: Denies: dyspnea, productive cough or non-productive cough GI: Denies: abdominal pain, nausea, vomiting, hematemesis, diarrhea or hematochezia : Denies: difficulty urinating, dysuria, urinary frequency, urinary urgency or hematuria Musc: Denies: back pain Skin/Breast: Denies: rash Neuro: Reports: weakness in extremities and difficulty walking; Denies: numbness in extremities Psych: Denies: anxiety Medications/Allergies Home Medications Medication Instructions Recorded Confirmed Last Taken Type citalopram 10 mg tablet 10 mg PO DAILY tab 12/03/19 10/03/20 10/03/20 History furosemide 40 mg tablet 40 mg PO QAM 12/03/19 10/03/20 10/03/20 History insulin glargine 100 unit/mL See Rx Instructions .ROUTE 12/03/19 10/03/20 10/02/20 History subcutaneous solution .COMPLEX ml leflunomide 20 mg tablet 20 mg PO DAILY tab 12/03/19 10/03/20 10/03/20 History nitroglycerin 0.4 mg sublingual 0.4 mg SUBLINGUAL Q5M PRN 12/03/19 10/03/20 01/16/20 History tablet tamsulosin 0.4 mg capsule 0.4 mg PO DAILY cap 12/03/19 10/03/20 10/03/20 H istory atorvastatin 40 mg PO QPM 12/25/19 10/03/20 10/02/20 History carvedilol 6.25 mg PO BID 12/25/19 10/03/20 10/03/20 History pantoprazole [Protonix] 40 mg PO DAILY 12/25/19 10/03/20 10/03/20 History potassium chloride 20 meq PO DAILY 12/25/19 10/03/20 10/03/20 History lisinopril 2.5 mg tablet 2.5 mg PO DAILY 06/09/20 10/03/20 10/03/20 History prednisone 5 mg tablet 10 mg PO DAILY #60 tab 06/09/20 10/03/20 10/03/20 Rx amoxicillin 500 mg PO BID 07/21/20 10/03/20 10/03/20 History diltiazem HCl 120 mg PO DAILY 07/21/20 10/03/20 10/03/20 History warfarin [Jantoven] 7.5 mg PO SuSa@1400 #15 tab 07/25/20 10/03/20 10/03/20 Rx warfarin [Jantoven] 10 mg PO MoTuWeThFr@1400 #30 tab 07/25/20 10/03/20 10/02/20 Rx allopurinol 100 mg tablet 100 mg PO DAILY #30 tab 08/14/20 10/03/20 10/03/20 Rx diclofenac sodium 1 % topical gel 2 gm TOPICAL QID #100 gm 08/14/20 10/03/20 Unknown Rx PNV,calcium [id number] acid 1 tab PO DAILY 10/03/20 10/03/20 10/03/20 History [ Vitamin Plus Low Iron] Allergies Allergy/AdvReac Type Severity Reaction Status Date / Time ceftriaxone [From Rocephin] Allergy Intermediate ALGY-Difficulty Verified 08/14/20 09:45 Breathing levofloxacin [From Levaquin] Allergy Mild ADR-Itching Verified 08/14/20 09:45 iodine Allergy Unknown Unknown Verified 08/14/20 09:45 clopidogrel [From Plavix] AdvReac Intermediate Unknown Verified 08/14/20 09:45 PFSH Acute PFSH: Medical History (Updated 10/03/20 @ 14:53 by Eva Butt MD) Aortic stenosis Atrial fibrillation Bilateral renal masses CHF (congestive heart failure) Chronic use of steroids CVA (cerebral vascular accident) Diabetes Dyslipidemia Edema 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 Essential hypertension Gout Hx of [place] spotted fever Ischemic cardiomyopathy Left ventricular hypertrophy Obesity AJAY (obstructive sleep apnea) Pulmonary HTN Renal calculi Rheumatoid arthritis Thalassemia Surgical History H/O lithotripsy S/P TAVR (transcatheter aortic valve replacement) Family History Mother Stroke Father Myocardial infarction Other CAD (coronary artery disease) Chronic kidney disease (CKD) Diabetes Hypertension Social History Smoking and tobacco status: former smoker Alcohol intake: former Marital status: History of recent travel: No Vitals/I&O/Wt Last Vital Signs Temp 98.4 F 10/03/20 09:52 Pulse 104 H 10/03/20 09:52 Resp 32 H 10/03/20 09:52 BP 132/84 10/03/20 09:52 Pulse Ox 95 10/03/20 09:52 Weight last 48 hrs Weight 163.293 kg Physical Exam Const: COMMON NORMALS: no acute distress, patient oriented x3 and alert GENERAL APPEARANCE: cooperative and comfortable NUTRITIONAL APPEARANCE: obese centrally obese ORIENTATION/CONSCIOUSNESS: Yes awake, Yes oriented to person and Yes oriented to place OTHER: -looks older than stated age HENMT: COMMON NORMALS: normocephalic, atraumatic and hearing grossly normal bilaterally HEAD & SCALP: normocephalic and atraumatic MOUTH: moist mucous membranes abnormal Details: parched Eye: COMMON NORMALS: Equal, round and reactive pupils present, EOMs intact bilaterally and conjunctivae normal CONJUNCTIVA: Yes conjunctivae normal PUPIL: Yes Equal, round and reactive pupils present Neck/C-Spine: COMMON NORMALS: full ROM GENERAL: Yes normal visual inspection and Yes trachea midline Resp: COMMON NORMALS: normal respiratory effort, No retractions, No use of accessory muscles and clear to auscultation bilaterally EFFORT & INSPECTION: Yes able to speak in complete sentences, Yes symmetric chest movement and No tachypneic AUSCULTATION: clear to auscultation bilaterally OTHER: -on RA Cardio: COMMON NORMALS: regular rhythm, S1 normal heart sound present, S2 normal heart sound present and No murmurs present (Cardio) RATE: tachycardic (mildly) RHYTHM: regular rhythm HEART SOUNDS: S1 normal heart sound present, S2 normal heart sound present and Clicking heart sound present GI: COMMON NORMALS: Normal to inspection, nondistended, normoactive bowel sounds present, Soft to palpation and non-tender INSPECTION: Yes central o besity and Yes Abdominal panniculus present PALPATION: Yes Soft to palpation and Yes Hernia present umbilical Extremity: COMMON NORMALS: normal to inspection, full ROM and no clubbing, cyanosis or edema; negative for no pedal edema Neuro: COMMON NORMALS: moves all extremities, no focal motor deficits and no sensory deficits noted SENSORIUM/ORIENTATION: Yes alert, Yes oriented to person and Yes oriented to place OTHER: -generally quite weak Psych: COMMON NORMALS: mental status grossly normal, Normal thought process present, cooperative, normal affect and speech normal SPEECH: Yes normal speech THOUGHT PROCESS: Normal thought process present Skin: COMMON NORMALS: no rashes or lesions noted, no jaundice, no petechiae and no mottling GENERAL SKIN EXAM: no rashes or lesions noted HAIR: male pattern alopecia OTHER: -thickened patch of keratinized skin on pannus Sepsis: Is patient septic: Yes Focused sepsis exam performed: Yes Date exam was performed: 10/03/20 Time exam was performed: 13:30 Data : 10/03/20 12:26 10/03/20 11:00 Other Labs: -labs reviewed, CBC, CMP, lactic acid A&P Assessment and plan (1) Acute cystitis: -UA strongly indicative of infection with noted nitrates, LE, pyuria, bacteria -noted leukocytosis, mild tachycardia, lactic acid wnl, CRP elevation, tachypnea, hypotension, so does meet sepsis criteria -has received a dose of Aztreonam -has had multiple prior UTIs, known allergy to ceftriaxone, levaquin; has previously received primaxin without incidence so will treat with this. Multiple prior urine cx with no growth -trend WBC, CRP -monitor vital signs -gentle IVF hydration; has received 1 L NS bolus in ED -f/u blood and urine cx Status: Acute Qualifiers: Hematuria presence: without hematuria Qualified Code(s): N30.00 - Acute cystitis without hematuria (2) Weakness: -likely due to acute infection (UTI) as noted above -CXR unremarkable, rapid COVID-19 test negative -fall precautions -PT/OT evaluations -at baseline, is able to transfer to [facility], otherwise non-ambulatory but he has had difficulty with transfers Status: Acute (3) Diabetes: -last A1c (07/2020)-6.6 -Accucheks, lantus, ISS, hypoglycemia precautions -cardiac consistent carb diet as tolerated Status: Chronic Qualifiers: Diabetes mellitus type: type 2 Diabetes mellitus longterm insulin use: with long term care phlebotomist use Diabetes mellitus complication status: with kidney complica tions Diabetes mellitus complication detail: with chronic kidney disease Chronic kidney disease stage: stage 2 (mild) Qualified Code(s): E11.22 - Type 2 diabetes mellitus with diabetic chronic kidney disease; N18.2 - Chronic kidney disease, stage 2 (mild); Z79.4 - shelter (current) use of insulin (4) Essential hypertension: -monitor vital signs -resume oral antihypertensives Status: Chronic Additional A&P Information -Morbid obesity: BMI-50 kg/m2 -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 Lizama -hx of HFpEF: Echo (08/2019): EF=50%, trace MR, trace TR, mild global hypokinesis. No acute exacerbation, resume oral diuretics -hx of endocarditis; on chronic amoxicillin -known dementia; reorient as needed -hx of pulmonary HTN -Hyperlipidemia; resume statin -GI ppx with PPI -DVT ppx not needed as on coumadin -Dispo: home -Code status: FULL code -admit to medical surgical floor Attestations Medical Necessity Statement*: Ry Sheabull's hospital stay will require greater than 2 midnights for management of complicated UTI with associated sepsis, requiring IVF, IV antibiotics. Time Spent in Patient Care: Greater than 35 minutes (>than 50% of time spent in counselling and/or direct pt care on unit) . Coding Level of Care Code Acute Meteorological Engineer for Chg Fwd Diagnoses Acute cystitis N30.00 Hematuria presence: without hematuria Weakness R53.1 Diabetes E11.22; N18.2; Z79.4 Diabetes mellitus type: type 2 Diabetes mellitus long term care phlebotomist insulin use: with longterm use Diabetes mellitus complication status: with kidney complications Diabetes mellitus complication detail: with chronic kidney disease Chronic kidney disease stage: stage 2 (mild) Essential hypertension I10 Sepsis Event Note Evaluation Current stage of sepsis: sepsis Initial hypotension due to sepsis/infection: SBP < 90 mmHg and MAP < 65 mmHg Possible source: genitourinary Focused Exam Vital Signs Temp Pulse Resp BP Pulse Ox 10/03/20 09:52 98.4 F 104 H 32 H 132/84 95 Respiratory exam: Present CTAB Cardiovascular exam: Present S1, S2, click and tachycardia Peripheral pulse strength: 3+ Normal Skin exam: normal turgor Date exam was performed: 10/03/20 Time exam was performed: 15:00
[2020-10-03] MEDS: sodium chloride 0.9% 1,000 ML 50 ML IV (17:15)
[2020-10-03] MEDS: carvedilol 6.25 mg Tablet PO (17:16)
[2020-10-03 17:20] LABS: INR 2.23 (0.8-1.2)
[2020-10-03 17:33] LABS: Glucose Point of Care 216 mg/dL (70-110)
[2020-10-03] MEDS: atorvastatin 40 mg Tablet PO (21:07)
[2020-10-03 21:28] LABS: Glucose Point of Care 239 mg/dL (70-110)
[2020-10-03] MEDS: insulin glargine 100 units/1 mL 30 UNIT SUBCUT (21:29)
[2020-10-04] VITALS: BP 139/84; PULSE 86; RESP 18; TEMP 36.9; O2SAT 94
[2020-10-04 01:56] LABS: Glucose Point of Care 183 mg/dL (70-110)
--- NOTE | 2020-10-04 02:22 | PC.NURSE ---
BS Pt had told RT that he thought his BS was low. Accucheck was 183 but wanted a snack anyway. Up to bathroom with assist. Is incont along with going to bathrooom
[2020-10-04 04:00] VITALS: BP 132/78; PULSE 82; RESP 18; TEMP 37.1; O2SAT 95
[2020-10-04 05:17] LABS: Basophils # 0.1 10^3/uL (0.0-0.1); Basophils % 0.7 %; Eosinophils # 0.2 10^3/uL (0.0-0.8); Eosinophils % 1.2 %; Hematocrit 39.7 % (42.0-52.0); Hemoglobin 11.5 g/dL (11.7-16.6); Lymphocytes # 1.3 10^3/uL (0.8-4.8); Lymphocytes % 10.2 %; Mean Corpuscular Hemoglobin 18.6 pg (28.0-34.0); Mean Corpuscular Volume 64.1 fL (80-94); Monocytes % 7.9 %; Neutrophils # 9.72 10^3/uL (1.8-7.7); Neutrophils % 79.4 %; Nucleated Red Blood Cells % 0 %; Platelet Count 152 10^3/cmm (130-400); Red Blood Count 6.19 10^6/uL (4.1-5.3); Red Cell Distribution Width 19.2 % (12.1-15.1); White Blood Count 12.2 10^3/uL (4.0-10.0)
[2020-10-04 05:36] LABS: INR 2.87 (0.8-1.2)
[2020-10-04 05:47] LABS: Blood Urea Nitrogen 23 mg/dL (8-23); C Reactive Protein 41.7 mg/L (0.0-4.9); Carbon Dioxide 26 mmol/L (22-29); Chloride 106 mmol/L (98-107); Creatinine Clr Calc Pharmacy 126.1851; Glomerular Filtration Rate 84.4 mL/min (90-130); Glucose 166 mg/dL (65-115); Osmolality Calculated 299 mOsm/kg (285-295); Sodium 141 mmol/L (136-145)
[2020-10-04 05:51] LABS: Anion Gap 12.8 (5-19); Potassium 3.8 mmol/L (3.5-5.1)
[2020-10-04 07:26] LABS: Glucose Point of Care 127 mg/dL (70-110)
[2020-10-04 08:00] VITALS: BP 152/87; PULSE 93; RESP 16; TEMP 36.6; O2SAT 92
[2020-10-04] MEDS: carvedilol 6.25 mg Tablet PO ×2 (08:11→17:33)
[2020-10-04] MEDS: citalopram 20 mg Tablet 10 MG PO (08:11)
[2020-10-04] MEDS: allopurinol 100 mg Tablet PO (08:11)
[2020-10-04] MEDS: lisinopril 2.5 mg Tablet PO (08:14)
[2020-10-04] MEDS: potassium chloride ER 20 mEq Tablet PO (08:14)
[2020-10-04] MEDS: tamsulosin 0.4 mg Capsule PO (08:14)
[2020-10-04] MEDS: FUROsemide 40 mg Tablet PO (08:14)
[2020-10-04] MEDS: dilTIAZem ER (24HR) 120 mg Capsule PO (08:14)
[2020-10-04] MEDS: predniSONE 10 mg Tablet PO (08:14)
[2020-10-04] MEDS: pantoprazole DR 40 mg Tablet PO (08:14)
--- NOTE | 2020-10-04 11:09 | PC.CHAP ---
Pastoral Care Encounter/Spiritual Assessment Type of Contact [] Declined grain merchandising manager visit [] Patient/Family/Request visit [] Outpatient visit [] Follow-up visit [] Physician referral [] Code/Alert [] Routine visit [] Staff referral [] Actively dying [X] Patient sleeping [] Family support [] [] Out of room [] Palliative care [] [] Receiving care in room [] Pre-surgical visit [] Trauma [] Long length of stay [] ICU visit [] Other: Relational/Emotional Strength [] Patient feels connected with others/family/visitors/staff [] Distress [] Loneliness/isolation [] Abandonment Spirituality of Patient [] Person of Nellie [] Attends Anabaptist of their Nellie [] Believes in Prayer [] Reads Bible or Restoration materials [] There are Spiritual issues to be addressed Roll Out Manager Interventions [] Prayer [] Active listening [] Non-anxious presence [] Spiritual/emotional support [] Crisis/trauma care [] Spiritual counseling [] Bereavement support [] Provided bereavement packet [] Provided Bible/devotional materials [] Provided toy/stuffed animal, coloring book to patient or family member [] Provided Communion [] Anointing/[place] [] Salvation [] Completed spiritual assessment [] Other: Impact on Illness or Injury [] Angry [] Fearful [] Anxious [] Often cries [] Exhaustion [] Unable to work [] Unable to attend episcopalian [] Unable to walk/stand [] Unable to read [] Unable to drive [] Unable to eat/drink [] Unable to sleep [] Unable to be with family [] Patient intubated [] Other: Summary Time spent with patient
[2020-10-04 11:16] LABS: Glucose Point of Care 156 mg/dL (70-110)
[2020-10-04 12:00] VITALS: BP 149/83; PULSE 98; RESP 16; TEMP 36.4; O2SAT 94
--- NOTE | 2020-10-04 12:24 | PM.PN ---
Subjective Subjective: Interval history: More hemodynamically stable, afebrile, on room air, noted decreased leukocytosis, stable hemoglobin, normalized renal function. INR at goal (2.87). Will discontinue IV fluid hydration as he has good oral intake. Urine cultures growing gram-negative rods x2, blood cultures pending. Working with therapy and is able to ambulate with a walker and standby assistance to the bathroom. Able to engage in conversation easily, mentation has definitely improved. Medications: Reviewed: Yes Medication Review Details: Active Medications Generic Name Dose Route Start Last Admin Trade Name Freq PRN Reason Stop Dose Admin Acetaminophen 650 mg 10/03/20 16:52 Acetaminophen 32 5 Mg Tablet PO Q6H PRN Mild/Mod Pain Or Temp >/= 101 Allopurinol 100 mg 10/04/20 09:00 10/04/20 08:11 Allopurinol 100 Mg Tablet PO 100 mg DAILY PADMAJA Administration Atorvastatin Calci um 40 mg 10/03/20 21:00 10/03/20 21:07 Atorvastatin 40 Mg Tablet PO 40 mg BEDTIME PADMAJA Administration Carvedilol 6.25 mg 10/03/20 18:00 10/04/20 08:11 Carvedilol 6.25 Mg Tablet PO 6.25 mg BID PADMAJA Administration Citalopram Hydrobr omide 10 mg 10/04/20 09:00 10/04/20 08:11 Citalopram 20 Mg Tablet PO 10 mg DAILY PADMAJA Administration Dextrose 25 ml 10/03/20 16:52 Dextrose 50% Syr carley 50 Ml IVP ONCE PRN hypoglycemia prot ocol Protocol Dextrose 50 ml 10/03/20 16:52 Dextrose 50% Syr carley 50 Ml IVP PRN PRN hypoglycemia prot ocol Protocol Diltiazem HCl 120 mg 10/04/20 09:00 10/04/20 08:14 Diltiazem Er (24 hr) 120 Mg Capsule PO 120 mg DAILY PADMAJA Administration Furosemide 40 mg 10/04/20 09:00 10/04/20 08:14 Furosemide 40 Mg Tablet PO 40 mg DAILY PADMAJA Administration Glucagon 1 mg 10/03/20 16:52 Glucagon 1 Mg/Ml Inj 1 Ml IM ONCE PRN Adult Acute Hypog lycemia Prot. Protocol Dextrose 500 mls @ 100 mls /hr 10/03/20 16:52 D5w IV ONCE PRN Adult Acute Hypog lycemia Prot Protocol Imipenem/Cilastati n Sodium 500 100 mls @ 200 mls /hr 10/03/20 18:00 10/04/20 05:22 mg/ Sodium Chlor robel IV 200 mls/hr Q6H PADMAJA Administration Sodium Chloride 1,000 mls @ 50 ml s/hr 10/03/20 16:52 10/03/20 17:15 Sodium Chloride 0.9% IV 50 mls/hr .Q20H PADMAJA Administration Insulin Aspart 0 unit 10/03/20 18:00 10/04/20 07:40 Insulin Aspart 1 00 Unit/1 Ml SUBCUT Not Given WM&BEDTIME PADMAJA Protocol Insulin Glargine 30 unit 10/03/20 21:00 10/03/20 21:29 Insulin Glargine 100 Units/1 Ml SUBCUT 30 unit BEDTIME PADMAJA Administration Lisinopril 2.5 mg 10/04/20 09:00 10/04/20 08:14 Lisinopril 2.5 M g Tablet PO 2.5 mg DAILY PADMAJA Administration Nitroglycerin 0.4 mg 10/03/20 16:52 Nitroglycerin 0. 4 Mg Sublingual Ta blet SUBLINGUAL Q5M PRN Chest Pain Ondansetron HCl 4 mg 10/03/20 16:52 Ondansetron 2 Mg /Ml Sdv 2 Ml IVP Q6H PRN vomiting, or N/V if npo Pantoprazole Sodiu m 40 mg 10/04/20 09:00 10/04/20 08:[address] 40 Mg Tablet PO 40 mg DAILY PADMAJA Administration Potassium Chloride 20 meq 10/04/20 09:00 10/04/20 08:14 Potassium Chlori de Er 20 Meq Table t PO 20 meq DAILY PADMAJA Administration Prednisone 10 mg 10/04/20 09:00 10/04/20 08:14 Prednisone 10 Mg Tablet PO 10 mg DAILY PADMAJA Administration Tamsulosin HCl 0.4 mg 10/04/20 09:00 10/04/20 08:14 Tamsulosin 0.4 M g Capsule PO 0.4 mg DAILY PADMAJA Administration Warfarin Sodium 10 mg 10/05/20 14:00 Warfarin 10 Mg T ablet PO [id number]@1400 S [facility] Warfarin Sodium 7.5 mg 10/04/20 14:00 Warfarin 7.5 Mg Tablet PO SuSa@1400 PADMAJA ceftriaxone [From Rocephin] Allergy (Intermediate, Verified 08/14/20 09:45) ALGY-Difficulty Breathing levofloxacin [From Levaquin] Allergy (Mild, Verified 08/14/20 09:45) ADR-Itching iodine Allergy (Unknown, Verified 08/14/20 09:45) Unknown clopidogrel [From Plavix] Adverse Reaction (Intermediate, Verified 08/14/20 09:45) Unknown Vitals/I&O/Wt Last Vital Signs Temp 97.6 F 10/04/20 12:00 Pulse 98 10/04/20 12:00 Resp 16 10/04/20 12:00 BP 149/83 10/04/20 12:00 Pulse Ox 94 10/04/20 12:00 10/03/20 10/04/20 10/04/20 22:59 06:59 14:59 Intake Total 100 / 100 540 / 640 120 / 120 Output Total 1 / 1 Balance 100 / 100 540 / 640 119 / 119 Weight last 48 hrs Weight 129.682 kg Weight 163.293 kg Physical Exam Const: COMMON NORMALS: no acute distress and alert GENERAL APPEARANCE: cooperative and comfortable NUTRITIONAL APPEARANCE: obese centrally obese ORIENTATION/CONSCIOUSNESS: Yes awake, Yes oriented to person and Yes oriented to place OTHER: -looks older than stated age HENMT: COMMON NORMALS: normocephalic, atraumatic and hearing grossly normal bilaterally HEAD & SCALP: normocephalic and atraumatic MOUTH: moist mucous membranes abnormal Details: parched Eye: COMMON NORMALS: Equal, round and reactive pupils present, EOMs intact bilaterally and conjunctivae normal CONJUNCTIVA: Yes conjunctivae normal PUPIL: Yes Equal, round and reactive pupils present Neck/C-Spine: COMMON NORMALS: full ROM GENERAL: Yes normal visual inspection and Yes trachea midline Resp: COMMON NORMALS: normal respiratory effort, No retractions, No use of accessory muscles and clear to auscultation bilaterally EFFORT & INSPECTION: Yes able to speak in complete sentences, Yes symmetric chest movement and No tachypneic AUSCULTATION: clear to auscultation bilaterally OTHER: -on RA Cardio: COMMON NORMALS: regular rhythm, S1 normal heart sound present, S2 normal heart sound present and No murmurs present (Cardio) RATE: tachycardic (mildly) RHYTHM: regular rhythm HEART SOUNDS: S1 normal heart sound present, S2 normal heart sound present and Clicking heart sound present GI: COMMON NORMALS: Normal to inspection, nondistended, normoactive bowel sounds present, Soft to palpation and non-tender INSPECTION: Yes central obesity and Yes Abdominal panniculus present PALPATION: Yes Soft to palpation and Yes Hernia present umbilical Extremity: COMMON NORMALS: normal to inspection, full ROM and no clubbing, cyanosis or edema; negative for no pedal edema Neuro: COMMON NORMALS: moves all extremities, no focal motor deficits and no sensory deficits noted SENSORIUM/ORIENTATION: Yes alert, Yes oriented to person and Yes oriented to place OTHER: -generally quite weak but ambulated to bathroom with walker and standby assistance Psych: COMMON NORMALS: mental status grossly normal, Normal thought process present, cooperative, normal affect and speech normal SPEECH: Yes normal speech THOUGHT PROCESS: Normal thought process present Skin: COMMON NORMALS: no rashes or lesions noted, no jaundice, no petechiae and no mottling GENERAL SKIN EXAM: no rashes or lesions noted HAIR: male pattern alopecia OTHER: -thickened patch of keratinized skin on pannus Data : 10/04/20 04:24 10/04/20 04:24 Micro: Microbiology 10/03/20 11:10 Urine Culture - Preliminary Urine,Clean Catch Gram Negative Rods Gram Negative Rods#2 10/03/20 15:20 Blood Culture - Preliminary Blood SPECIMEN COLLECTED 10/03/20 15:10 Blood Culture - Preliminary Blood SPECIMEN COLLECTED A&P Assessment and plan (1) Acute cystitis: -UA strongly indicative of infection with noted nitrates, LE, pyuria, bacteria -noted leukocytosis, mild tachycardia, lactic acid wnl, CRP elevation, tachypnea, hypotension, so does meet sepsis criteria -received a dose of Aztreonam in ED -has had multiple prior UTIs, known allergy to ceftriaxone, levaquin; has previously received primaxin without incidence so will treat with this. Multiple prior urine cx with no growth -continue to trend WBC, CRP -continue to monitor vital signs -d/c IVF; encourage oral hydration -blood cx: prelim negative -urine cx: GRNs x 2; pending ID & sensitivity Status: Acute Qualifiers: Hematuria presence: without hematuria Qualified Code(s): N30.00 - Acute cystitis without hematuria (2) Weakness: -likely due to acute infection (UTI) as noted above -CXR unremarkable, rapid COVID-19 test negative -fall precautions -PT/OT evaluations -at baseline, is able to transfer to electric WC and walker, otherwise non-ambulatory but he has had difficulty with transfers. Noted improvement today Status: Acute (3) Diabetes: -last A1c (07/2020)-6.6 -Accucheks, lantus, ISS, hypoglycemia precautions -cardiac consistent carb diet as tolerated Status: Chronic Qualifiers: Chronic kidney disease stage: stage 2 (mild) Diabetes mellitus complication detail: with chronic kidney disease Diabetes mellitus complication status: with kidney complications Diabetes mellitus intermodal customer service insulin use: with fdc use Diabetes mellitus type: type 2 Qualified Code(s): E11.22 - Type 2 diabetes mellitus with diabetic chronic kidney disease; N18.2 - Chronic kidney disease, stage 2 (mild); Z79.4 - skilled nursing (current) use of insulin (4) Essential hypertension: -continue to monitor vital signs -continue oral antihypertensives Status: Chronic Additional A&P Information -Morbid obesity: BMI-40 kg/m2 -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 Lizama -hx of HFpEF: Echo (08/2019): EF=50%, trace MR, trace TR, mild global hypokinesis. No acute exacerbation, continue oral diuretics -hx of endocarditis; on chronic amoxicillin (on hold while on systemic antibiotics) -known dementia; reorient as needed -hx of pulmonary HTN -Hyperlipidemia; on statin -GI ppx with PPI -DVT ppx not needed as on coumadin -Dispo: home -Code status: FULL code Attestations Medical Necessity Statement*: Patient requires hospitalization for continued treatment of complicated UTI, on IV antibiotics pending urine and blood cultures. Time Spent in Patient Care: 16 - 35 minutes (>than 50% of time spent in counselling and/or direct pt care on unit). 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
[2020-10-04 16:00] VITALS: BP 126/77; PULSE 84; RESP 15; TEMP 36.3; O2SAT 89
[2020-10-04 17:14] LABS: Glucose Point of Care 231 mg/dL (70-110)
--- NOTE | 2020-10-04 18:25 | PC.NURSE ---
Patient has been pleasant and friendly. Cooperative with cares. Has been eating well during this shift. Ambulating to the bathroom and has been incontinent during this shift.
[2020-10-04 19:55] VITALS: BP 132/76; PULSE 88; RESP 16; TEMP 36.6; O2SAT 91
[2020-10-04] MEDS: atorvastatin 40 mg Tablet PO (20:05)
[2020-10-04] MEDS: insulin glargine 100 units/1 mL 30 UNIT SUBCUT (20:14)
[2020-10-04 20:21] LABS: Glucose Point of Care 214 mg/dL (70-110)
[2020-10-05] VITALS (7 sets, daily range): BP systolic 110–150; BP diastolic 64–100; PULSE 70–108; RESP 15–18; TEMP 36.3–36.7; O2SAT 90–98
[2020-10-05 05:23] LABS: Basophils # 0.1 10^3/uL (0.0-0.1); Eosinophils # 0.2 10^3/uL (0.0-0.8); Eosinophils % 1.9 %; Hematocrit 36.6 % (42.0-52.0); Hemoglobin 10.8 g/dL (11.7-16.6); Lymphocytes # 1.3 10^3/uL (0.8-4.8); Lymphocytes % 13.4 %; Mean Corpuscular HGB Conc 29.5 g/dL (30.0-36.0); Mean Corpuscular Hemoglobin 18.2 pg (28.0-34.0); Mean Corpuscular Volume 61.8 fL (80-94); Monocytes # 0.8 10^3/uL (0.2-0.9); Monocytes % 8.3 %; Nucleated Red Blood Cells % 0 %; Platelet Count 157 10^3/cmm (130-400); Red Blood Count 5.92 10^6/uL (4.1-5.3); Red Cell Distribution Width 17.4 % (12.1-15.1); White Blood Count 9.6 10^3/uL (4.0-10.0)
[2020-10-05 06:03] LABS: C Reactive Protein 37.8 mg/L (0.0-4.9)
[2020-10-05 06:34] LABS: INR 2.37 (0.8-1.2)
[2020-10-05 07:12] LABS: Glucose Point of Care 177 mg/dL (70-110)
[2020-10-05] MEDS: allopurinol 100 mg Tablet PO (08:52)
[2020-10-05] MEDS: pantoprazole DR 40 mg Tablet PO (08:52)
[2020-10-05] MEDS: FUROsemide 40 mg Tablet PO (08:52)
[2020-10-05] MEDS: lisinopril 2.5 mg Tablet PO (08:52)
[2020-10-05] MEDS: potassium chloride ER 20 mEq Tablet PO (08:53)
[2020-10-05] MEDS: dilTIAZem ER (24HR) 120 mg Capsule PO (08:53)
[2020-10-05] MEDS: carvedilol 6.25 mg Tablet PO ×2 (08:53→17:35)
[2020-10-05] MEDS: predniSONE 10 mg Tablet PO (08:53)
[2020-10-05] MEDS: tamsulosin 0.4 mg Capsule PO (08:53)
[2020-10-05] MEDS: citalopram 20 mg Tablet 10 MG PO (08:54)
[2020-10-05 11:13] LABS: Glucose Point of Care 178 mg/dL (70-110)
--- NOTE | 2020-10-05 11:54 | PC.RESP ---
PULMONARY REHAB INFORMATION SENT TO PATIENT.
--- NOTE | 2020-10-05 14:10 | PC.NURSE ---
patient requested a call be made to his and transferred to him. show card writer transferred call as requested.
[2020-10-05] MEDS: warfarin 10 mg Tablet PO (14:26)
[2020-10-05 17:10] LABS: Glucose Point of Care 267 mg/dL (70-110)
--- NOTE | 2020-10-05 18:57 | P.PN_ITS ---
Subjective Subjective: Interval history: Is up with nursing supervision. Subjectively he is doing well. Denies any pain or discomfort. Prescription with nursing staff has done well. Does not appear to be confused. Appetite is good. No trouble breathing. Vitals/I&O/Wt Last Vital Signs Temp 98.1 F 10/05/20 15:46 Pulse 100 10/05/20 15:46 Resp 16 10/05/20 15:46 BP 110/64 10/05/20 15:46 Pulse Ox 97 10/05/20 15:46 10/05/20 10/05/20 10/05/20 06:59 14:59 22:59 Intake Total 340 / 1020 200 / 200 100 / 300 Balance 340 / 719 200 / 200 100 / 300 Weight last 48 hrs Weight 129.682 kg Physical Exam Const: COMMON NORMALS: no acute distress, patient oriented x3 and alert GENERAL APPEARANCE: cooperative ORIENTATION/CONSCIOUSNESS: Yes awake HENMT: COMMON NORMALS: oropharynx normal Neck/C-Spine: COMMON NORMALS: no JVD Resp: COMMON NORMALS: normal respiratory effort and clear to auscultation bilaterally AUSCULTATION: clear to auscultation bilaterally Cardio: COMMON NORMALS: no JVD, regular rhythm, S1 normal heart sound present, S2 normal heart sound present and No murmurs present (Cardio) RHYTHM: regular rhythm HEART SOUNDS: S1 normal heart sound present and S2 normal heart sound present GI: COMMON NORMALS: Normal to inspection, nondistended, normoactive bowel sounds present, Soft to palpation and non-tender PALPATION: Yes Soft to palpation Extremity: COMMON NORMALS: no joint enlargement and no pedal edema Neuro: COMMON NORMALS: patient oriented x3 and moves all extremities SENSORIUM/ORIENTATION: Yes alert Skin: COMMON NORMALS: no rashes or lesions noted GENERAL SKIN EXAM: no rashes or lesions noted Data : 10/05/20 04:43 10/04/20 04:24 Micro: Microbiology 10/03/20 11:10 Urine Culture - Final Urine,Clean Catch Citrobacter youngae Proteus vulgaris 10/03/20 15:20 Blood Culture - Preliminary Blood NEGATIVE TO DATE 10/03/20 15:10 Blood Culture - Preliminary Blood NEGATIVE TO DATE A&P Assessment and plan (1) Acute cystitis: 2 organisms growing in urine, Citrobacter and Proteus resistant to a number of antibiotics. He also has reported allergy to ceftriaxone with difficulty breathing. He and his do not exactly recall, but his is concerned that the allergy with difficulty breathing may be real. Levofloxacin reported as itching. He and his do not recall serious allergic reaction to Levaquin. Discussed with him and her regarding number of options. Unfortunately due to multiple drug resistance, as well as his allergies antibiotic options for treatment are limited. After weighing risks and benefits he and his are agreeable to trial of ciprofloxacin while observed in the hospital. We will give him first dose tonight, monitor. If he does well with that may complete course visit with discharge tomorrow morning. Status: Acute Qualifiers: Hematuria presence: without hematuria Qualified Code(s): N30.00 - Acute cystitis without hematuria (2) Weakness: Improving. -likely due to acute infection (UTI) as noted above -CXR unremarkable, rapid COVID-19 test negative -fall precautions -PT/OT evaluations -at baseline, is able to transfer to electric WC and walker, otherwise non- ambulatory but he has had difficulty with transfers. Noted improvement today Status: Acute (3) Diabetes: -last A1c (07/2020)-6.6 -Accucheks, lantus, ISS, hypoglycemia precautions -cardiac consistent carb diet as tolerated Status: Chronic Qualifiers: Chronic kidney disease stage: stage 2 (mild) Diabetes mellitus complication detail: with chronic kidney disease Diabetes mellitus complication status: with kidney complications Diabetes mellitus ocean transportation intermediary insulin use: with care home use Diabetes mellitus type: type 2 Qualified Code(s): E11.22 - Type 2 diabetes mellitus with diabetic chronic kidney disease; N18.2 - Chronic kidney disease, stage 2 (mild); Z79.4 - intermediate (current) use of insulin (4) Essential hypertension: -continue to monitor vital signs -continue oral antihypertensives Status: Chronic Additional A&P Information -Morbid obesity: BMI-40 kg/m2 -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 Lizama -hx of HFpEF: Echo (08/2019): EF=50%, trace MR, trace TR, mild global hypokinesis. No acute exacerbation, continue oral diuretics -hx of endocarditis; on chronic amoxicillin (on hold while on systemic antibiotics) -known dementia; reorient as needed -hx of pulmonary HTN -Hyperlipidemia; on statin -GI ppx with PPI -DVT ppx not needed as on coumadin -Dispo: home -Code status: FULL code Attestations Medical Necessity Statement*: Continue admission for assessment management of complicated urinary tract infection, trial of ciprofloxacin antibiotic with monitoring due to history of allergy to Levaquin, in the setting of UTI with multidrug-resistant organisms. 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
--- NOTE | 2020-10-05 19:52 | PC.NURSE ---
REPORTED BP TO NURSE!
[2020-10-05] MEDS: ciprofloxacin 500 mg Tablet 250 MG PO (20:39)
[2020-10-05] MEDS: atorvastatin 40 mg Tablet PO (20:39)
[2020-10-05 20:40] LABS: Glucose Point of Care 269 mg/dL (70-110)
[2020-10-05] MEDS: insulin glargine 100 units/1 mL 30 UNIT SUBCUT (21:46)
[2020-10-06 04:00] VITALS: BP 125/89; PULSE 76; RESP 17; TEMP 36.8; O2SAT 99
[2020-10-06 06:18] LABS: Basophils # 0.1 10^3/uL (0.0-0.1); Basophils % 0.9 %; Eosinophils # 0.2 10^3/uL (0.0-0.8); Eosinophils % 2.8 %; Hematocrit 40.2 % (42.0-52.0); Hemoglobin 11.6 g/dL (11.7-16.6); Lymphocytes # 1.3 10^3/uL (0.8-4.8); Lymphocytes % 15.7 %; Mean Corpuscular HGB Conc 28.9 g/dL (30.0-36.0); Mean Corpuscular Hemoglobin 18.2 pg (28.0-34.0); Mean Corpuscular Volume 62.9 fL (80-94); Monocytes # 0.9 10^3/uL (0.2-0.9); Monocytes % 10.5 %; Neutrophils # 5.87 10^3/uL (1.8-7.7); Neutrophils % 69.5 %; Nucleated Red Blood Cells % 0 %; Platelet Count 199 10^3/cmm (130-400); Red Blood Count 6.39 10^6/uL (4.1-5.3); Red Cell Distribution Width 18.8 % (12.1-15.1); White Blood Count 8.5 10^3/uL (4.0-10.0)
[2020-10-06 06:35] LABS: Anion Gap 13.5 (5-19); Blood Urea Nitrogen 25 mg/dL (8-23); Calcium 9.3 mg/dL (8.5-10.5); Carbon Dioxide 26 mmol/L (22-29); Chloride 105 mmol/L (98-107); Glomerular Filtration Rate 84.4 mL/min (90-130); Glucose 144 mg/dL (65-115); Osmolality Calculated 299 mOsm/kg (285-295); Potassium 3.5 mmol/L (3.5-5.1); Sodium 141 mmol/L (136-145)
[2020-10-06 06:47] LABS: Glucose Point of Care 141 mg/dL (70-110)
[2020-10-06 07:15] LABS: Slide Review Slide Review Perform
[2020-10-06 07:18] VITALS: BP 124/63; PULSE 63; RESP 16; TEMP 36.5; O2SAT 96
--- NOTE | 2020-10-06 09:15 | PC.SOCIAL ---
IMM Page 2 of IMM explained to patient. Initialed, dated, and timed and placed in chart. Copy provided to patient.
[2020-10-06] MEDS: allopurinol 100 mg Tablet PO (09:18)
[2020-10-06] MEDS: tamsulosin 0.4 mg Capsule PO (09:18)
[2020-10-06] MEDS: dilTIAZem ER (24HR) 120 mg Capsule PO (09:18)
[2020-10-06] MEDS: pantoprazole DR 40 mg Tablet PO (09:18)
[2020-10-06] MEDS: citalopram 20 mg Tablet 10 MG PO (09:18)
[2020-10-06] MEDS: ciprofloxacin 500 mg Tablet 250 MG PO (09:18)
[2020-10-06] MEDS: predniSONE 10 mg Tablet PO (09:19)
[2020-10-06] MEDS: carvedilol 6.25 mg Tablet PO (09:19)
[2020-10-06] MEDS: potassium chloride ER 20 mEq Tablet PO (09:19)
[2020-10-06] MEDS: FUROsemide 40 mg Tablet PO (09:19)
[2020-10-06] MEDS: lisinopril 2.5 mg Tablet PO (09:19)
[2020-10-06 10:00] VITALS: BMI 39.4
--- NOTE | 2020-10-06 11:00 | PC.NURSE ---
Patient getting meds to beds, notified of patient's discharge, IV discontinued and covered with 2x2 and coban.
[2020-10-06 11:05] LABS: Glucose Point of Care 197 mg/dL (70-110)
[2020-10-06 11:19] VITALS: BP 140/91; PULSE 92; RESP 16; TEMP 36.4; O2SAT 96
--- NOTE | 2020-10-06 11:39 | PM.DCS ---
Discharge Providers Date of Admission: 10/03/20 13:32 Date of Discharge: October 06, 2020 Attending Provider at Admission: Eva Butt MD Attending Provider at Discharge: Elian Buitrago Primary Care Provider: Faustina Gonzalez NP Diagnoses at Discharge Discharge Diagnosis (1) Acute cystitis: Status: Acute Qualifiers: Hematuria presence: without hematuria Qualified Code(s): N30.00 - Acute cystitis without hematuria (2) Weakness: Status: Acute (3) Diabetes: Status: Chronic Qualifiers: Chronic kidney disease stage: stage 2 (mild) Diabetes mellitus complication detail: with chronic kidney disease Diabetes mellitus complication status: with kidney complications Diabetes mellitus intermediate insulin use: with long filler cigar roller machine use Diabetes mellitus type: type 2 Qualified Code(s): E11.22 - Type 2 diabetes mellitus with diabetic chronic kidney disease; N18.2 - Chronic kidney disease, stage 2 (mild); 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 COVID-19 rapid antigen was negative on presentation. He otherwise had no additional symptoms of COVID-19. Blood pressure soft on presentation, with sinus tachycardia, with leukocytosis did meet criteria for sepsis. Was treated for urinary tract infection as suspected source. Generalized weakness thought to be secondary to UTI. Was continued on anticoagulation for atrial fibrillation, also with history of aortic stenosis status post TAVR. History of HFpEF, in August 2019 EF 50%, trace MR, trace TR, mild global hypokinesis. Not found in exacerbation during this admission. He is also on chronic amoxicillin due to history of endocarditis. This was held while he was receiving treatment with Primaxin in the hospital. His episodes of confusion resolved. He does have baseline dementia, but came back to his usual mental status. His functional capacity improved as well, and he has been walking with a walker with minimal supervision. Urine culture eventually grew 2 bacteria, Citrobacter and Proteus resistant to a number of different antibiotics. He is also still having allergy to Rocephin noted as difficulty breathing, as well as listed allergy to Levaquin noted as itching. After discussion of risks and benefits he was trialed on ciprofloxacin in the hospital with supervision which he tolerated well. Both organisms are susceptible to quinolones, and so he will complete the course with ciprofloxacin at home. Please follow-up on his condition, as well as chronic medical problems. Please follow up his INR after the short course of Ciprofloxacin. See full notes and medical studies for details. Do not hesitate to contact with any questions. Physical Exam Const: COMMON NORMALS: no acute distress, patient oriented x3 and alert GENERAL APPEARANCE: cooperative ORIENTATION/CONSCIOUSNESS: Yes awake OTHER: Walking with minimal supervision from the restroom to his chair with a walker. HENMT: COMMON NORMALS: Normal external nose present and oropharynx normal NOSE: Normal external nose present Neck/C-Spine: COMMON NORMALS: no JVD Resp: COMMON NORMALS: normal respiratory effort and clear to auscultation bilaterally AUSCULTATION: clear to auscultation bilaterally Cardio: COMMON NORMALS: no JVD, regular rhythm, S1 normal heart sound present, S2 normal heart sound present and No murmurs present (Cardio) RHYTHM: regular rhythm HEART SOUNDS: S1 normal heart sound present and S2 normal heart sound present GI: COMMON NORMALS: Normal to inspection, nondistended, normoactive bowel sounds present, Soft to palpation and non-tender PALPATION: Yes Soft to palpation Extremity: COMMON NORMALS: no joint enlargement GENERAL: Yes edema (1+) Neuro: COMMON NORMALS: patient oriented x3 and moves all extremities SENSORIUM/ORIENTATION: Yes alert Skin: COMMON NORMALS: no rashes or lesions noted GENERAL SKIN EXAM: no rashes or lesions noted Discharge Data Data Completed and Pending: Completed Studies During Hospitalization Category Date Time Status XR chest 1V olga lidia ble [id number] Stat Exams 10/03/20 09:59 Completed Pending at discharge Category Date Time Status Basic Metabolic P vinicius AM LABS Lab 10/07/20 04:00 Ordered Basic Metabolic P vinicius AM LABS Lab 10/08/20 04:00 Ordered Blood Culture Sta t Lab 10/03/20 15:20 Results Complete Blood Co unt w/Auto AM LABS Lab 10/07/20 04:00 Ordered Complete Blood Co unt w/Auto AM LABS Lab 10/08/20 04:00 Ordered Labs from last 24 hours 10/06/20 10/06/20 10/06/20 11:00 06:41 05:55 WBC RBC Hgb Hct MCV MCH MCHC RDW Plt Count MPV Neut % (Auto) Lymph % (Auto) [place] % (Auto) Eos % (Auto) Baso % (Auto) Neut # (Auto) Lymph # (Auto) [place] # (Auto) Eos # (Auto) Baso # (Auto) Nucleated RBC % (a uto) Nucleated RBCs # Sodium 141 Potassium 3.5 Chloride 105 Carbon Dioxide 26 Anion Gap 13.5 BUN 25 H Creatinine 0.9 GFR Calculation 84.4 L Glucose 144 H POC Glucose 197 141 Calculated Osmolal ity 299 H Calcium 9.3 SARS-CoV-2 Ag (Rap id) 10/06/20 10/05/20 10/05/20 05:55 19:47 16:54 WBC 8.5 RBC 6.39 H Hgb 11.6 L Hct 40.2 L MCV 62.9 L MCH 18.2 L MCHC 28.9 L RDW 18.8 H Plt Count 199 MPV Not Reportable Neut % (Auto) 69.5 Lymph % (Auto) 15.7 [place] % (Auto) 10.5 Eos % (Auto) 2.8 Baso % (Auto) 0.9 Neut # (Auto) 5.87 Lymph # (Auto) 1.3 [place] # (Auto) 0.9 Eos # (Auto) 0.2 Baso # (Auto) 0.1 Nucleated RBC % (a uto) 0 Nucleated RBCs # 0.0 Sodium Potassium Chloride Carbon Dioxide Anion Gap BUN Creatinine GFR Calculation Glucose POC Glucose 269 267 Calculated Osmolal ity Calcium SARS-CoV-2 Ag (Rap id) 10/03/20 11:01 WBC RBC Hgb Hct MCV MCH MCHC RDW Plt Count MPV Neut % (Auto) Lymph % (Auto) [place] % (Auto) Eos % (Auto) Baso % (Auto) Neut # (Auto) Lymph # (Auto) [place] # (Auto) Eos # (Auto) Baso # (Auto) Nucleated RBC % (a uto) Nucleated RBCs # Sodium Potassium Chloride Carbon Dioxide Anion Gap BUN Creatinine GFR Calculation Glucose POC Glucose Calculated Osmolal ity Calcium SARS-CoV-2 Ag (Rap id) Negative Vitals: Last Vital Signs Temp 97.5 F L 10/06/20 11:19 Pulse 92 10/06/20 11:19 Resp 16 10/06/20 11:19 BP 140/91 10/06/20 11:19 Pulse Ox 96 10/06/20 11:19 Discharge Plan Discharge Patient Disposition: Home Condition: Stable Prescriptions: New ciprofloxacin HCl 500 mg Tablet 250 mg PO BID Qty: 8 RF: 0 Continued tamsulosin 0.4 mg capsule 0.4 mg PO DAILY RF: 0 citalopram [Celexa] 10 mg tablet 10 mg PO DAILY RF: 0 furosemide 40 mg tablet 40 mg PO QAM RF: 0 Lantus U-100 Insulin 100 unit/mL solution See Rx Instructions .ROUTE .COMPLEX RF: 0 nitroglycerin [Nitrostat] 0.4 mg tablet, sublingual 0.4 mg SUBLINGUAL Q5M PRN (Reason: Chest Pain) RF: 0 lisinopril 2.5 mg tablet 2.5 mg PO DAILY RF: 0 prednisone 5 mg tablet 10 mg PO DAILY Qty: 60 RF: 3 diclofenac sodium [Voltaren] 1 % gel 2 gm TOPICAL QID Qty: 100 RF: 2 allopurinol 100 mg tablet 100 mg PO DAILY Qty: 30 RF: 3 carvedilol 12.5 mg Tablet 6.25 mg PO BID RF: 0 potassium chloride 20 mEq Tablet Extended Release 20 meq PO DAILY RF: 0 atorvastatin 40 mg PO QPM RF: 0 pantoprazole [Protonix] 40 mg Tablet,Delayed Release (Dr/Ec) 40 mg PO DAILY RF: 0 Vitamin Plus Low Iron 27 mg iron- 1 mg tablet 1 tab PO DAILY RF: 0 amoxicillin 500 mg Capsule 500 mg PO BID RF: 0 diltiazem HCl 120 mg capsule,extended release 24hr 120 mg PO DAILY RF: 0 warfarin [Jantoven] 10 mg Tablet 10 mg PO MoTuWeThFr@1400 Qty: 30 RF: 0 warfarin [Jantoven] 7.5 mg Tablet 7.5 mg PO SuSa@1400 Qty: 15 RF: 0 Held leflunomide 20 mg tablet 20 mg PO DAILY RF: 0 Hold Instructions: Resume on 10/13/20. 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 Please follow-up with your butane compressor operator. For now you are requested to hold leflunomide until you recover from urinary infection. You have tolerated ciprofloxacin well in the hospital, however, note that a related medication is listed as allergy with Levaquin. If you experience any worsening rash, any difficulty breathing, or other concerning symptoms, please call an ambulance. Discharge Attestations Time Spent in Discharge Care*: greater than 30 min Status at Discharge: Cognitive status at discharge: cognitively intact, Behavioral status at discharge: cooperative, Quality Metrics Clinical Quality Measures During this hospital stay, did patient experience: None Coding Level of Care Code Acute Entry Level Electrician for g Fwd Diagnoses Acute cystitis N30.00 Hematuria presence: without hematuria Weakness R53.1 Diabetes E11.22; N18.2; Z79.4 Chronic kidney disease stage: stage 2 (mild) Diabetes mellitus complication detail: with chronic kidney disease Diabetes mellitus complication status: with kidney complications Diabetes mellitus intermediate insulin use: with long filler cigar roller machine use Diabetes mellitus type: type 2 Essential hypertension I10
--- NOTE | 2020-10-06 12:53 | PC.NURSE ---
patient given discharge instructions and verbalized understanding of instruction. patient's IV removed and 2x2 [address]. patient had medications delivered to bed. patient taken to private vehicle via wheelchair by service writer and assisted into vehicle.
[2020-10-06 12:55] VITALS: BP 140/91; PULSE 92; RESP 16; TEMP 36.4; O2SAT 96
== END 2020-10-06 12:58 | disposition home or self-care (01) | DRG 872 ==
LOC: ER 15:01 → MEDSURG 15:42
PROVIDERS: Admitting Provider Family Medicine; Emergency Provider Emergency Medicine; PCP Nurse Practitioner Family; Visit Provider Internal Medicine
DX: A41.9 Sepsis, unspecified organism (principal); N30.00 Acute cystitis without hematuria; I13.0 Hypertensive heart and chronic kidney disease with heart failure and stage 1 through stage 4 chronic kidney disease, or unspecified chronic kidney disease; I50.32 Chronic diastolic (congestive) heart failure; I38 Endocarditis, valve unspecified; Z87.440 Personal history of urinary (tract) infections; F03.90 Unspecified dementia, unspecified severity, without behavioral disturbance, psychotic disturbance, mood disturbance, and anxiety; Z99.3 Dependence on wheelchair; R32 Unspecified urinary incontinence; I48.91 Unspecified atrial fibrillation; E11.22 Type 2 diabetes mellitus with diabetic chronic kidney disease; N18.2 Chronic kidney disease, stage 2 (mild); Z79.52 Long term (current) use of systemic steroids; Z86.73 Personal history of transient ischemic attack (TIA), and cerebral infarction without residual deficits; E78.5 Hyperlipidemia, unspecified; Z79.2 Long term (current) use of antibiotics; M10.9 Gout, unspecified; I25.5 Ischemic cardiomyopathy; E66.9 Obesity, unspecified; Z68.39 Body mass index [BMI] 39.0-39.9, adult; G47.33 Obstructive sleep apnea (adult) (pediatric); I27.20 Pulmonary hypertension, unspecified; Z87.442 Personal history of urinary calculi; Z79.01 Long term (current) use of anticoagulants; Z79.4 Long term (current) use of insulin; B96.4 Proteus (mirabilis) (morganii) as the cause of diseases classified elsewhere; I95.9 Hypotension, unspecified; D50.9 Iron deficiency anemia, unspecified; Z88.1 Allergy status to other antibiotic agents; Z87.891 Personal history of nicotine dependence; Z95.2 Presence of prosthetic heart valve; M06.9 Rheumatoid arthritis, unspecified; D56.3 Thalassemia minor
CPT/HCPCS: 12345; 36415; 36416; 71045; 80048; 80053; 81001; 82962; 83605; 85025; 85610; 86140; 87040; 87077; 87086; 87186; 87426; 87804; 93005; 96372; 97110; 97116; 97161; 97165; 97530; 97535; 99283; J0743; J1815 ×2; J3490; J7030; J7040; J7512

== ENCOUNTER 2020-10-07 01:55 | Emergency (ER) | payer MEDICARE, OTHER, SELFPAY ==
[2020-10-07 01:56] VITALS: BP 136/80; PULSE 71; RESP 24; TEMP 36.3; O2SAT 94; BMI 41.8
[2020-10-07 02:01] VITALS: BP 136/80; PULSE 84; RESP 17; O2SAT 96
--- NOTE | 2020-10-07 02:04 | ECG_ITS ---
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1955 Requested By: Tamica Fernandez Order Number: [id number] Morena MD: CATALINA MORRIS Measurements Intervals [place] Rate: 79 P: SD: -1 QRS: -23 QRSD: 88 T: 153 QT: 389 QTc: 447 Interpretive Statements ATRIAL FIBRILLATION BORDERLINE LEFT AXIS DEVIATION [QRS AXIS < -20] MINIMAL VOLTAGE CRITERIA FOR LVH, CONSIDER NORMAL VARIANT [MEETS CRITERIA IN ONE OF: R(aVL), S(V1), R(V5), R(V5/V6)+S(V1)] NONSPECIFIC ST & T-WAVE ABNORMALITY Compared to ECG 10/03/2020 10:14:09 Possible ischemia no longer present T-wave abnormality still present Electronically Signed On 10-07-2020 19:37:45 SUPERVISOR INTERNATIONAL RESERVATIONS by CATALINA MORRIS [id number]
--- NOTE | 2020-10-07 02:18 | XR_ITS ---
WS: [id number] PORTABLE CHEST HISTORY: short of breath COMPARISON: 10/03/2020 Lungs are clear and well expanded. No pleural effusion or pneumothorax. Cardiac size: Normal. Mediastinum/Aorta: Short stent in expected location of the ascending aorta and aortic valve. Mild ath erosclerosis aorta. No osseous abnormality seen. XR/XR chest 1V portable [id number] IMPRESSION: Stable chest. No acute cardiopulmonary disease.
--- NOTE | 2020-10-07 02:42 | W.ED.AMS ---
HPI - Altered Mental Status General: Chief Complaint: Altered Mental Status Stated Complaint: A LOC Time Seen by Provider: 10/07/20 02:13 Source: patient and EMS Mode of arrival: EMS Limitations: altered mental status History of Present Illness: HPI narrative: 64-year-old male patient presents to the emergency department due to altered mental status. EMS reports around 11:30 PM on 10/06/2020, patient became confused, deviation from baseline. First responders state patient was complaining of shortness of breath, 100% nonrebreather applied, by the time paramedics arrived, patient had returned to normal with improvement of SOB. Patient reports shortness of breath, improved upon exam. Recently admitted for urinary tract infection. He denies fever chills or abdominal pain. Denies symptoms of dysuria or hematuria. He has history of dementia. MD complaint: altered mental status, confusion and decreased responsiveness Onset (ago): hour(s) (3) Time: 23:30 Timing confirmed by: spouse Severity: moderate Context: diabetes Associated symptoms: Reports no associated symptoms Review of Systems General: Reports: 10 or more systems reviewed and unremarkable except in HPI and below Const: Reports: fatigue; Denies: fever(s), chills or diaphoresis Eyes: Denies: blurry vision or eye redness ENMT: Denies: throat pain, dental pain, disequilibrium, nasal discharge or nasal congestion Card: Reports: edema, swelling of feet/ankles and dyspnea on exertion; Denies: chest pain, palpitations, irregular heart rhythm or acrocyanosis Resp: Reports: dyspnea and non-productive cough; Denies: productive cough, wheezing, pain on inspiration, hemoptysis or chest congestion GI: Denies: abdominal pain, nausea, vomiting or GI cramping : Denies: difficulty urinating, dysuria or urinary urgency Musc: Reports: muscle weakness (W/C bound); Denies: neck pain or back pain Skin/Breast: Reports: rash (central abdomen) and changes in skin color (central abdomen); Denies: pruritus Neuro: Reports: weakness in extremities, difficulty walking and confusion; Denies: headache(s) or behavioral changes Aaron/Lymph: Denies: easy bruising PFSH ED PFSH: Medical History (Updated 10/07/20 @ 00:00 by ) Aortic stenosis Atrial fibrillation Bilateral renal masses CHF (congestive heart failure) Chronic use of steroids CVA (cerebral vascular accident) Diabetes Dyslipidemia Edema 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 Essential hypertension Gout Hx of [place] spotted fever Ischemic cardiomyopathy Left ventricular hypertrophy Obesity AJAY (obstructive sleep apnea) Pulmonary HTN Renal calculi Rheumatoid arthritis Thalassemia Surgical History H/O lithotripsy S/P TAVR (transcatheter aortic valve replacement) Family History Mother Stroke Father Myocardial infarction Other CAD (coronary artery disease) Chronic kidney disease (CKD) Diabetes Hypertension Social History Smoking and tobacco status: former smoker Alcohol intake: former Marital status: History of recent travel: No Physical Exam Const: COMMON NORMALS: no acute distress, alert and well nourished EXAM LIMITATIONS: altered mental status (dementia) GENERAL APPEARANCE: cooperative, comfortable and appears older than stated age NUTRITIONAL APPEARANCE: obese ORIENTATION/CONSCIOUSNESS: Yes awake, Yes oriented to person and Yes oriented to place HENMT: COMMON NORMALS: normocephalic, atraumatic and Normal external nose present HEAD & SCALP: normocephalic and atraumatic FACE & SINUS: normal facial exam NOSE: Normal external nose present Eye: COMMON NORMALS: Equal, round and reactive pupils present and EOMs intact bilaterally GENERAL EYE: appearance normal, both eyes and all related structures PUPIL: Yes Equal, round and reactive pupils present Neck/C-Spine: COMMON NORMALS: full ROM and no lymphadenopathy GENERAL: Yes normal visual inspection and Yes trachea midline CERVICAL SPINE: Yes cervical ROM normal, No pain with cervical ROM and No Cervical spine tenderness Lymph: LYMPHATIC: no lymphadenopathy noted Chest: COMMONS NORMALS: normal inspection of the chest and normal palpation of entire chest wall Resp: COMMON NORMALS: normal respiratory effort EFFORT & INSPECTION: Yes able to speak in complete sentences AUSCULTATION: diminished lung sounds bilateral Cardio: COMMON NORMALS: regular rate, regular rhythm, S1 normal heart sound present, S2 normal heart sound present and Peripheral pulses 2+ throughout RATE: regular rate RHYTHM: regular rhythm HEART SOUNDS: S1 normal heart sound present and S2 normal heart sound present PERIPHERAL PULSES: Peripheral pulses 2+ throughout GI: COMMON NORMALS: Normal to inspection, nondistended, normoactive bowel sounds present, Soft to palpation and non-tender INSPECTION: Yes central obesity, Yes Fluid wave present and Yes Abdominal panniculus present PALPATION: Yes Soft to palpation PERCUSSION: Fluid wave present : COMMON NORMALS: Yes no CVA tenderness BLADDER/KIDNEY EXAM: Yes no CVA tenderness Back/Pelvis: COMMON NORMALS: no CVA tenderness and thoracic and lumbar spine normal to inspection Extremity: COMMON NORMALS: normal to inspection and capillary refill normal Neuro: COMMON NORMALS: no focal motor deficits SENSORIUM/ORIENTATION: Yes alert, Yes oriented to person and Yes oriented to place Psych: COMMON NORMALS: mental status grossly normal, Normal thought process present, cooperative and speech normal ATTITUDE: Yes calm ACTIVITY/MOTOR BEHAVIOR: Yes appropriate eye contact SPEECH: Yes normal speech THOUGHT PROCESS: Normal thought process present INSIGHT: Fair insight present (Psych) JUDGEMENT: Fair judgement present (Psych) Skin: GENERAL SKIN EXAM: turgor decreased RASHES: rashes noted (central abdomen with dark discoloration, chronic finding, plaque keratosis) Course ED course: Initial patient assessment completed, transfer of care to Dr. Garrison Vital Signs: Vital signs: Vital Signs Temperature 97.4 F L 10/07/20 01:56 Pulse Rate 84 10/07/20 02:01 Respiratory Rate 17 10/07/20 02:01 Blood Pressure 136/80 10/07/20 02:01 Pulse Oximetry 96 10/07/20 02:01 Discharge Plan Discharge Prescriptions: No Action tamsulosin 0.4 mg capsule 0.4 mg PO DAILY RF: 0 citalopram [Celexa] 10 mg tablet 10 mg PO DAILY RF: 0 leflunomide 20 mg tablet 20 mg PO DAILY RF: 0 Hold Instructions: Resume on 10/13/20. furosemide 40 mg tablet 40 mg PO QAM RF: 0 Lantus U-100 Insulin 100 unit/mL solution See Rx Instructions .ROUTE .COMPLEX RF: 0 nitroglycerin [Nitrostat] 0.4 mg tablet, sublingual 0.4 mg SUBLINGUAL Q5M PRN (Reason: Chest Pain) RF: 0 lisinopril 2.5 mg tablet 2.5 mg PO DAILY RF: 0 prednisone 5 mg tablet 10 mg PO DAILY Qty: 60 RF: 3 diclofenac sodium [Voltaren] 1 % gel 2 gm TOPICAL QID Qty: 100 RF: 2 allopurinol 100 mg tablet 100 mg PO DAILY Qty: 30 RF: 3 carvedilol 12.5 mg Tablet 6.25 mg PO BID RF: 0 potassium chloride 20 mEq Tablet Extended Release 20 meq PO DAILY RF: 0 atorvastatin 40 mg PO QPM RF: 0 pantoprazole [Protonix] 40 mg Tablet,Delayed Release (Dr/Ec) 40 mg PO DAILY RF: 0 Vitamin Plus Low Iron 27 mg iron- 1 mg tablet 1 tab PO DAILY RF: 0 ciprofloxacin HCl 500 mg Tablet 250 mg PO BID Qty: 8 RF: 0 amoxicillin 500 mg Capsule 500 mg PO BID RF: 0 diltiazem HCl 120 mg capsule,extended release 24hr 120 mg PO DAILY RF: 0 warfarin [Jantoven] 10 mg Tablet 10 mg PO MoTuWeThFr@1400 Qty: 30 RF: 0 warfarin [Jantoven] 7.5 mg Tablet 7.5 mg PO SuSa@1400 Qty: 15 RF: 0 Coding Level of Care Code ED [place] Blocker for John Fwd Exam Comprehensive
[2020-10-07 03:21] LABS: Basophils # 0.1 10^3/uL (0.0-0.1); Basophils % 0.7 %; Eosinophils # 0.2 10^3/uL (0.0-0.8); Eosinophils % 1.7 %; Hematocrit 38.8 % (42.0-52.0); Hemoglobin 11.3 g/dL (11.7-16.6); Lymphocytes # 1.1 10^3/uL (0.8-4.8); Lymphocytes % 12.9 %; Mean Corpuscular HGB Conc 29.1 g/dL (30.0-36.0); Mean Corpuscular Hemoglobin 18.5 pg (28.0-34.0); Mean Corpuscular Volume 63.4 fL (80-94); Monocytes # 0.7 10^3/uL (0.2-0.9); Monocytes % 7.8 %; Neutrophils # 6.72 10^3/uL (1.8-7.7); Neutrophils % 76.4 %; Nucleated Red Blood Cells % 0 %; Platelet Count 212 10^3/cmm (130-400); Red Blood Count 6.12 10^6/uL (4.1-5.3); Red Cell Distribution Width 18.3 % (12.1-15.1); White Blood Count 8.8 10^3/uL (4.0-10.0)
[2020-10-07 03:35] LABS: INR 2.18 (0.8-1.2)
[2020-10-07 03:39] LABS: Specific Gravity, Urine 1.015 (1.005-1.030); Urine Appearance Clear (CLEAR); Urine Color Yellow (Yellow)
[2020-10-07 03:40] LABS: Add Urine Culture? Yes; Add Urine Microscopic? YES; Bacteria Urine 1+ /hpf; Bilirubin Urine Neg (Negative); Blood Urine Neg (Negative); Glucose Urine UA Norm (Normal); Ketones Urine Negative (Negative); Leukocyte Esterase Urine Trace (Negative); Nitrate Urine Negative (Negative); Protein Urine Neg (Negative); Urobilinogen Urine Norm (Negative)
[2020-10-07 03:44] LABS: Alanine Aminotransferase 18 U/L (0-41); Albumin Level 3.5 g/dL (3.5-5.2); Alkaline Phosphatase 70 IU/L (40-130); Anion Gap 12.6 (5-19); Aspartate Amino Transferase 20 U/L (0-40); Blood Urea Nitrogen 31 mg/dL (8-23); Calcium 9.3 mg/dL (8.5-10.5); Carbon Dioxide 27 mmol/L (22-29); Chloride 104 mmol/L (98-107); Globulin 1.6 g/dL (1.3-4.6); Glucose 193 mg/dL (65-115); Lactic Sepsis W/Reflex 1.2 mmol/L (0.5-2.2); Osmolality Calculated 302 mOsm/kg (285-295); Potassium 3.6 mmol/L (3.5-5.1); Sodium 140 mmol/L (136-145); Total Bilirubin 0.5 mg/dL (0.15-1.2); Total Protein 5.1 g/dL (6.6-8.7)
[2020-10-07 03:47] LABS: Troponin(5th) Baseline 20 ng/L (0-15)
[2020-10-07 04:00] VITALS: BP 143/93; PULSE 88; RESP 18; O2SAT 92
--- NOTE | 2020-10-07 04:18 | ECG_ITS ---
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1955 Requested By: Tamica Fernandez Order Number: [id number] Reading MD: CATALINA MORRIS Measurements Intervals [place] Rate: 80 P: [place]: QRS: -18 QRSD: 89 T: 152 QT: 366 QTc: 424 Interpretive Statements ATRIAL FIBRILLATION VOLTAGE CRITERIA FOR LVH [MEETS CRITERIA IN ONE OF: R(aVL), S(V1), R(V5), R(V5/V6)+S(V1)] ST DEVIATION AND MODERATE T-WAVE ABNORMALITY, CONSIDER LATERAL ISCHEMIA [-0.1+ mV T WAVE IN I/aVL/V5/V6] Compared to ECG 10/07/2020 02:08:27 Possible ischemia now present T-wave abnormality still present Electronically Signed On 10-07-2020 19:40:14 POISING INSPECTOR by CATALINA MORRIS [id number]
[2020-10-07 05:16] VITALS: BP 139/86; PULSE 91; RESP 19; O2SAT 93
[2020-10-07 05:57] LABS: Troponin 5 2HR 19.55 ng/L (0-15); Troponin 5 2HR Delta -0.45 ABS# (0-10)
[2020-10-07 06:51] VITALS: BP 140/84; PULSE 82; RESP 18; O2SAT 96
== END 2020-10-07 06:40 | disposition home or self-care (01) ==
PROVIDERS: Emergency Provider Emergency Medicine; PCP Nurse Practitioner Family
DX: R41.82 Altered mental status, unspecified (principal); Z79.4 Long term (current) use of insulin; Z79.01 Long term (current) use of anticoagulants; I48.91 Unspecified atrial fibrillation; I11.0 Hypertensive heart disease with heart failure; I50.9 Heart failure, unspecified; Z86.73 Personal history of transient ischemic attack (TIA), and cerebral infarction without residual deficits; E11.9 Type 2 diabetes mellitus without complications; E78.5 Hyperlipidemia, unspecified; Z87.891 Personal history of nicotine dependence
CPT/HCPCS: 12345; 71045; 80053; 81001; 83605; 84484; 85025; 85610; 87086; 93005; 99282; 99283

== ENCOUNTER 2020-10-09 02:57 | Emergency (ER) | payer MEDICARE, OTHER, SELFPAY ==
[2020-10-09] VITALS (10 sets, daily range): BP systolic 145–164; BP diastolic 77–96; PULSE 66–103; RESP 15–26; TEMP 36.3–36.6; O2SAT 94–100; BMI 34.8
--- NOTE | 2020-10-09 03:03 | XR_ITS ---
WS: [id number] Exam: XR chest 1V portable [id number] Date/Time of Exam: 10/09/2020 3:03 AM Reason For Exam: Chest pain Comparison 10/07/2020. The lungs are clear and fully expanded. Mild cardiac enlargement. Aortic valve repair with stent. The mediastinum and regional bony structures are unremarkable. XR/XR chest 1V portable [id number] IMPRESSION: 1. No acute cardiopulmonary finding. 2. Mild cardiac enlargement unchanged.
--- NOTE | 2020-10-09 03:03 | ECG_ITS ---
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 Measurements Intervals [place] Rate: 84 P: [place]: QRS: -20 QRSD: 92 T: 160 QT: 348 QTc: 412 Interpretive Statements ATRIAL FIBRILLATION WITH ABERRANT CONDUCTION OR VENTRICULAR PREMATURE COMPLEXES MINIMAL VOLTAGE CRITERIA FOR LVH, CONSIDER NORMAL VARIANT [MEETS CRITERIA IN ONE OF: R(aVL), S(V1), R(V5), R(V5/V6)+S(V1)] NONSPECIFIC ST & T-WAVE ABNORMALITY Compared to ECG 10/07/2020 04:35:30 Ventricular premature complex(es) now present Aberrant conduction of supraventricular beat(s) now present Possible ischemia no longer present T-wave abnormality still present Electronically Signed On 10-09-2020 10:25:36 MAC ARTIST by Cassy Monreal M.D. [id number]
--- NOTE | 2020-10-09 03:15 | PC.NURSE ---
Patient placed on 2Liters of oxygen via nasal cannulla. Patient's oxygen levels drop to 86% when he falls asleep.
--- NOTE | 2020-10-09 03:18 | ED_ITS ---
Documented by User: Lorrie Cabral 10/09/20 04:51 HPI - SOB/Dyspnea General: Chief Complaint: Shortness of Breath/Dyspnea Stated Complaint: chest tightness Time Seen by Provider: 10/09/20 03:14 Source: patient and family Mode of arrival: wheelchair Limitations: no limitations History of Present Illness: HPI Narrative: Ry is a 64-year-old male we ll-known to me from previous visits. Ry is accompanied by his the night he brings him in with a report of shortness of breath. Patient was recently in the hospital and was also recently seen in the ER approximately 2 days ago. Fatmata his says that he gets short of breath every time he drifts off to sleep. She said at the last ER visit they were diagnosed with sleep apnea and they have since followed up with his regular doctor who is referred him for a sleep study but it is not even scheduled at this point. Patient has some chest tightness. There is no report of cough or fever. He has chronic leg swelling that is no worse than normal. He does state he gets worse when he walks or exerts himself. He gets more short of breath with exertion and he also gets more short of breath if he lays flat. Patient describes the chest pain as tightness. Patient has had similar symptoms to this numerous times in the past. He is unaware of anything that makes his symptoms better or worse other than previously described. Associated symptoms: Reports chest pain and orthopnea; Deny abdominal pain, chest congestion, diaphoresis, dizziness, extremity pain, fever(s), hemoptysis, lightheadedness, nausea, palpitations, syncope or vomiting Review of Systems Const: Denies: fever(s), chills, body aches, fatigue, malaise or diaphoresis Eyes: Denies: change in vision, blurry vision, photophobia, eye discomfort, eye discharge, eye redness or yellow eyes ENMT: Denies: throat pain, odynophagia, hoarseness, swelling of lips/tongue, ear or mastoid pain, ear discharge, change in hearing or nasal discharge Card: Reports: chest pain, swelling of feet/ankles, dyspnea on exertion and orthopnea; Denies: palpitations, irregular heart rhythm, edema, lightheadedness, syncope or pre-syncope Resp: Reports: dyspnea; Denies: productive cough, non-productive cough, wheezing, hemoptysis or chest congestion GI: Denies: abdominal pain, nausea, vomiting, hematemesis, coffee ground emesis, heartburn, diarrhea, constipation, GI cramping, hematochezia or melena : Denies: flank pain, dysuria, urinary frequency, urinary urgency or hematuria Musc: Denies: neck pain, back pain, extremity pain, extremity swelling, joint pain, joint swelling, joint redness, joint warmth or joint stiffness Skin/Breast: Denies: rash, pruritus, erythema, skin pain or skin tenderness Neuro: Denies: headache(s), numbness in extremities, weakness in extremities, sensory changes, lack of coordination, difficulty walking, dizziness, vertigo, confusion, Slurred speech present or seizure-like activity Aaron/Lymph: Denies: easy bruising, easy bleeding, petechiae, purpura or enlarged lymph nodes All/Imm: Denies: urticaria, throat swelling, tongue swelling, facial swelling or acute wheezing PFSH ED PFSH: Medical History Aortic stenosis Atrial fibrillation Bilateral renal masses CHF (congestive heart failure) Chronic use of steroids CVA (cerebral vascular accident) Diabetes Dyslipidemia Edema 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 Essential hypertension Gout Hx of [place] spotted fever Ischemic cardiomyopathy Left ventricular hypertrophy Obesity AJAY (obstructive sleep apnea) Pulmonary HTN Renal calculi Rheumatoid arthritis Thalassemia Surgical History H/O lithotripsy S/P TAVR (transcatheter aortic valve replacement) Family History Mother Stroke Father Myocardial infarction Other CAD (coronary artery disease) Chronic kidney disease (CKD) Diabetes Hypertension Social History Smoking and tobacco status: former smoker Alcohol intake: former Marital status: History of recent travel: No Physical Exam Const: COMMON NORMALS: no acute distress, patient oriented x3, no limitations and alert GENERAL APPEARANCE: cooperative HENMT: COMMON NORMALS: normocephalic, atraumatic, external ears normal, EAC's normal and Normal external nose present HEAD & SCALP: normal to inspection, normocephalic and atraumatic FACE & SINUS: normal facial exam and face symmetric NOSE: Normal external nose present and Normal nares present EXTERNAL EAR: Yes external ears normal EXTERNAL AUDITORY CANAL: EAC's normal MOUTH: Normal oral and palatal mucosa present, lip normal and tongue normal Eye: COMMON NORMALS: Equal, round and reactive pupils present and conjunctivae normal GENERAL EYE: appearance normal, both eyes and all related structures ALIGNMENT: Yes alignment normal PERIORBITAL: periorbital findings normal EYELID: eyelids normal CONJUNCTIVA: Yes conjunctivae normal SCLERA: sclerae normal PUPIL: Yes Equal, round and reactive pupils present Neck/C-Spine: COMMON NORMALS: full ROM, no lymphadenopathy, supple, no meningeal signs and no JVD GENERAL: Yes normal visual inspection and Yes trachea midline Chest: COMMONS NORMALS: normal inspection of the chest and normal palpation of entire chest wall Resp: COMMON NORMALS: normal respiratory effort, No retractions, No use of accessory muscles and clear to auscultation bilaterally EFFORT & INSPECTION: Yes able to speak in complete sentences and Yes symmetric chest movement AUSCULTATION: clear to auscultation bilaterally, no crackles, rales, no rhonchi and wheezes Cardio: COMMON NORMALS: no JVD, regular rate, regular rhythm, S1 normal heart sound present and S2 normal heart sound present RATE: regular rate RHYTHM: regular rhythm HEART SOUNDS: S1 normal heart sound present, S2 normal heart sound present, no click, no gallops, no murmurs and no rubs GI: COMMON NORMALS: Soft to palpation and No hepatosplenomegaly present PALPATION: Yes Soft to palpation, No Tenderness to palpation present (GI), No Guarding due to palpation present (GI), No Rigid due to palpation, Yes No hepatosplenomegaly present, No Hernia present, No Palpable mass present and No Pulsatile mass present : COMMON NORMALS: Yes no CVA tenderness BLADDER/KIDNEY EXAM: Yes no CVA tenderness Back/Pelvis: COMMON NORMALS: no CVA tenderness, thoracic and lumbar spine normal to inspection, no thoracic nor lumbar tenderness and thoraco-lumbar ROM normal Extremity: COMMON NORMALS: normal to inspection, full ROM, capillary refill normal, no joint enlargement and no calf tenderness GENERAL: Yes edema Neuro: COMMON NORMALS: patient oriented x3, CN's II-XII intact bilaterally, moves all extremities, no focal motor deficits and no sensory deficits noted SENSORIUM/ORIENTATION: Yes alert MENINGEAL SIGNS: Yes no meningeal signs SPEECH: speech normal Psych: COMMON NORMALS: mental status grossly normal, Normal thought process present, cooperative, normal affect, speech normal and activity/motor behavior normal SPEECH: Yes normal speech THOUGHT PROCESS: Normal thought process present Skin: COMMON NORMALS: no rashes or lesions noted, turgor normal, no jaundice, no petechiae and no mottling GENERAL SKIN EXAM: no rashes or lesions noted and turgor normal Course Vital Signs: Vital signs: Vital Signs Temperature 97.4 F L 10/09/20 03:04 Pulse Rate 81 10/09/20 07:03 Respiratory Rate 22 H 10/09/20 07:03 Blood Pressure 158/96 10/09/20 07:03 Pulse Oximetry 98 10/09/20 07:03 MDM - SOB/Dyspnea Lab Data: Attestation: I reviewed the patient's lab results. Labs: Lab Results 10/09/20 10/09/20 10/09/20 Range/Units 03:16 03:59 03:59 WBC 9.9 (4.0-10.0) 10^3/ uL RBC 6.09 H (4.1-5.3) 10^6/u L Hgb 11.3 L (11.7-16.6) g/dL Hct 37.6 L (42.0-52.0) % MCV 61.7 L (80-94) fL MCH 18.6 L (28.0-34.0) pg MCHC 30.1 (30.0-36.0) g/dL RDW 18.1 H (12.1-15.1) % Plt Count 216 (130-400) 10^3/c mm MPV Not Reportable Neut % (Auto) 73.1 % Lymph % (Auto) 15.2 % Wake % (Auto) 7.8 % Eos % (Auto) 1.8 % Baso % (Auto) 1.1 % Neut # (Auto) 7.24 (1.8-7.7) 10^3/u L Lymph # (Auto) 1.5 (0.8-4.8) 10^3/u L Wake # (Auto) 0.8 (0.2-0.9) 10^3/u L Eos # (Auto) 0.2 (0.0-0.8) 10^3/u L Baso # (Auto) 0.1 (0.0-0.1) 10^3/u L Nucleated RBC % (a uto) 0 % Nucleated RBCs # 0.0 /100WBC PT 23.00 H (12.1-14.9) SECO NDS INR 1.96 H (0.8-1.2) Specimen Type Arterial Sample Site Brachial, right ABG pH 7.42 (7.35-7.45) ABG pCO2 43.5 (35-45) mmHg ABG pO2 72.0 L (80.0-100.0) mmH g ABG HCO3 28.1 H (22-26) mmol/L ABG Base Excess 3.1 H (-2.0-2.0) mmol/ L Matteo Test N/a Hematocrit 36.0 L (42-52) % O2 Delivery Device Room air Database Programmer Analyst ID Harkr Sodium (136-145) mmol/L Potassium (3.5-5.1) mmol/L Chloride (98-107) mmol/L Carbon Dioxide (22-29) mmol/L Anion Gap (5-19) BUN (8-23) mg/dL Creatinine (0.7-1.2) mg/dL GFR Calculation (90-130) mL/min Glucose (65-115) mg/dL Calculated Osmolal ity (285-295) mOsm/k g Calcium (8.5-10.5) mg/dL Magnesium (1.7-2.3) mg/dL Total Bilirubin (0.15-1.2) mg/dL AST (0-40) U/L ALT (0-41) U/L Alkaline Phosphata se (40-130) IU/L Troponin T Baselin e (0-15) ng/L Troponin T 120 Min [place] (0-15) ng/L Delta Troponin T (0-10) ABS# NT-Pro-B Natriuret Pep (0-125) pg/mL Total Protein (6.6-8.7) g/dL Albumin (3.5-5.2) g/dL Globulin (1.3-4.6) g/dL Lipase (13-60) U/L 10/09/20 10/09/20 10/09/20 Range/Units 03:59 03:59 05:40 WBC (4.0-10.0) 10^3/ uL RBC (4.1-5.3) 10^6/u L Hgb (11.7-16.6) g/dL Hct (42.0-52.0) % MCV (80-94) fL MCH (28.0-34.0) pg MCHC (30.0-36.0) g/dL RDW (12.1-15.1) % Plt Count (130-400) 10^3/c mm MPV Neut % (Auto) % Lymph % (Auto) % Wake % (Auto) % Eos % (Auto) % Baso % (Auto) % Neut # (Auto) (1.8-7.7) 10^3/u L Lymph # (Auto) (0.8-4.8) 10^3/u L Wake # (Auto) (0.2-0.9) 10^3/u L Eos # (Auto) (0.0-0.8) 10^3/u L Baso # (Auto) (0.0-0.1) 10^3/u L Nucleated RBC % (a uto) % Nucleated RBCs # /100WBC PT (12.1-14.9) SECO NDS INR (0.8-1.2) Specimen Type Sample Site ABG pH (7.35-7.45) ABG pCO2 (35-45) mmHg ABG pO2 (80.0-100.0) mmH g ABG HCO3 (22-26) mmol/L ABG Base Excess (-2.0-2.0) mmol/ L Matteo Test Hematocrit (42-52) % O2 Delivery Device Database Programmer Analyst ID Sodium 144 (136-145) mmol/L Potassium 3.7 (3.5-5.1) mmol/L Chloride 106 (98-107) mmol/L Carbon Dioxide 28 (22-29) mmol/L Anion Gap 13.7 (5-19) BUN 33 H (8-23) mg/dL Creatinine 0.9 (0.7-1.2) mg/dL GFR Calculation 84.4 L (90-130) mL/min Glucose 170 H (65-115) mg/dL Calculated Osmolal ity 309 H (285-295) mOsm/k g Calcium 9.5 (8.5-10.5) mg/dL Magnesium 1.9 (1.7-2.3) mg/dL Total Bilirubin 0.4 (0.15-1.2) mg/dL AST 19 (0-40) U/L ALT 23 (0-41) U/L Alkaline Phosphata se 68 (40-130) IU/L Troponin T Baselin e 23 H (0-15) ng/L Troponin T 120 Min [place] 23.19 H (0-15) ng/L Delta Troponin T 0.19 (0-10) ABS# NT-Pro-B Natriuret Pep 1626 H (0-125) pg/mL Total Protein 5.5 L (6.6-8.7) g/dL Albumin 3.6 (3.5-5.2) g/dL Globulin 1.9 (1.3-4.6) g/dL Lipase 36 (13-60) U/L Imaging Data^: CXR: Attestation: I personally reviewed and interpreted this imaging study as follows: My impression: No acute cardiopulmonary findings. Cardiomegaly present. Unchanged from previous. EKG Data^: EKG 1: Attestation: I personally reviewed and interpreted this EKG as follows: EKG Interpretation Date: 10/09/20 EKG interpretation time: 03:19 Interpretation: Atrial fibrillation with a ventricular rate of 84 beats a minute, left axis deviation, LVH, normal intervals, nonspecific ST and T wave changes. Similar to previous. EKG 2: Attestation: I personally reviewed and interpreted this EKG as follows: EKG Interpretation Date: 10/09/20 EKG interpretation time: 04:48 Interpretation: Atrial fibrillation with a ventricular rate of 96 beats a minute, left axis deviation, significant wandering baseline artifact, no definite acute ST or T wave changes. Discharge Plan Discharge Patient Disposition: Home Clinical Impression: Congestive heart failure Condition: Stable Prescriptions: Changed furosemide 40 mg tablet 60 mg PO QAM Qty: 0 RF: 0 No Action tamsulosin 0.4 mg capsule 0.4 mg PO DAILY RF: 0 citalopram [Celexa] 10 mg tablet 10 mg PO DAILY RF: 0 leflunomide 20 mg tablet 20 mg PO DAILY RF: 0 Hold Instructions: Resume on 10/13/20. Lantus U-100 Insulin 100 unit/mL solution See Rx Instructions .ROUTE .COMPLEX RF: 0 nitroglycerin [Nitrostat] 0.4 mg tablet, sublingual 0.4 mg SUBLINGUAL Q5M PRN (Reason: Chest Pain) RF: 0 lisinopril 2.5 mg tablet 2.5 mg PO DAILY RF: 0 prednisone 5 mg tablet 10 mg PO DAILY Qty: 60 RF: 3 diclofenac sodium [Voltaren] 1 % gel 2 gm TOPICAL QID Qty: 100 RF: 2 allopurinol 100 mg tablet 100 mg PO DAILY Qty: 30 RF: 3 carvedilol 12.5 mg Tablet 6.25 mg PO BID RF: 0 potassium chloride 20 mEq Tablet Extended Release 20 meq PO DAILY RF: 0 atorvastatin 40 mg PO QPM RF: 0 pantoprazole [Protonix] 40 mg Tablet,Delayed Release (Dr/Ec) 40 mg PO DAILY RF: 0 Vitamin Plus Low Iron 27 mg iron- 1 mg tablet 1 tab PO DAILY RF: 0 ciprofloxacin HCl 500 mg Tablet 250 mg PO BID Qty: 8 RF: 0 amoxicillin 500 mg Capsule 500 mg PO BID RF: 0 diltiazem HCl 120 mg capsule,extended release 24hr 120 mg PO DAILY RF: 0 warfarin [Jantoven] 10 mg Tablet 10 mg PO MoTuWeThFr@1400 Qty: 30 RF: 0 warfarin [Jantoven] 7.5 mg Tablet 7.5 mg PO SuSa@1400 Qty: 15 RF: 0 Discharge Orders: Discharge Order (Routine); Ordered 10/09/20 Ordered By: Raymon Boyce Referrals: Faustina Gonzalez, [employer] [Primary Care Provider] - Activity Restrictions/Additional Instructions: Increase Lasix to 60 mg daily for 3 days then return to 40 mg daily. Follow-up with your primary care doctor first available appointment next week. Return to the emergency room if you have further problems. Sign Out Sign Out Data: Patient Sign Out occurred on 10/09/20 at 07:36. Patient's care was discussed, and care was transferred from to Raymon Boyce DO. 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 Essential hypertension Gout Hx of [place] spotted fever Ischemic cardiomyopathy Left ventricular hypertrophy Obesity AJAY (obstructive sleep apnea) Pulmonary HTN Renal calculi Rheumatoid arthritis Thalassemia Surgical History H/O lithotripsy S/P TAVR (transcatheter aortic valve replacement) Family History Mother Stroke Father Myocardial infarction Other CAD (coronary artery disease) Chronic kidney disease (CKD) Diabetes Hypertension Social History Smoking and tobacco status: former smoker Alcohol intake: former Marital status: History of recent travel: No Course Vital Signs: Vital signs: Vital Signs Temperature 97.4 F L 10/09/20 03:04 Pulse Rate 81 10/09/20 07:03 Respiratory Rate 22 H 10/09/20 07:03 Blood Pressure 158/96 10/09/20 07:03 Pulse Oximetry 98 10/09/20 07:03 MDM - SOB/Dyspnea MDM Narrative: Medical decision making narrative: Care assumed from Dr. Arevalo at change of shift. Patient's feeling much better he has put out a significant amount of urine. He would prefer to go home I do not see any reason why he would need to be hospitalized at this point is a chronic issue for him. We will increase his Lasix to 60 mg daily for the next 3 days Lab Data: Labs: Lab Results 10/09/20 10/09/20 10/09/20 Range/Units 03:16 03:59 03:59 WBC 9.9 (4.0-10.0) 10^3/ uL RBC 6.09 H (4.1-5.3) 10^6/u L Hgb 11.3 L (11.7-16.6) g/dL Hct 37.6 L (42.0-52.0) % MCV 61.7 L (80-94) fL MCH 18.6 L (28.0-34.0) pg MCHC 30.1 (30.0-36.0) g/dL RDW 18.1 H (12.1-15.1) % Plt Count 216 (130-400) 10^3/c mm MPV Not Reportable Neut % (Auto) 73.1 % Lymph % (Auto) 15.2 % Wake % (Auto) 7.8 % Eos % (Auto) 1.8 % Baso % (Auto) 1.1 % Neut # (Auto) 7.24 (1.8-7.7) 10^3/u L Lymph # (Auto) 1.5 (0.8-4.8) 10^3/u L Wake # (Auto) 0.8 (0.2-0.9) 10^3/u L Eos # (Auto) 0.2 (0.0-0.8) 10^3/u L Baso # (Auto) 0.1 (0.0-0.1) 10^3/u L Nucleated RBC % (a uto) 0 % Nucleated RBCs # 0.0 /100WBC PT 23.00 H (12.1-14.9) SECO NDS INR 1.96 H (0.8-1.2) Specimen Type Arterial Sample Site Brachial, right ABG pH 7.42 (7.35-7.45) ABG pCO2 43.5 (35-45) mmHg ABG pO2 72.0 L (80.0-100.0) mmH g ABG HCO3 28.1 H (22-26) mmol/L ABG Base Excess 3.1 H (-2.0-2.0) mmol/ L Matteo Test N/a Hematocrit 36.0 L (42-52) % O2 Delivery Device Room air Database Programmer Analyst ID Harkr Sodium (136-145) mmol/L Potassium (3.5-5.1) mmol/L Chloride (98-107) mmol/L Carbon Dioxide (22-29) mmol/L Anion Gap (5-19) BUN (8-23) mg/dL Creatinine (0.7-1.2) mg/dL GFR Calculation (90-130) mL/min Glucose (65-115) mg/dL Calculated Osmolal ity (285-295) mOsm/k g Calcium (8.5-10.5) mg/dL Magnesium (1.7-2.3) mg/dL Total Bilirubin (0.15-1.2) mg/dL AST (0-40) U/L ALT (0-41) U/L Alkaline Phosphata se (40-130) IU/L Troponin T Baselin e (0-15) ng/L Troponin T 120 Min [place] (0-15) ng/L Delta Troponin T (0-10) ABS# NT-Pro-B Natriuret Pep (0-125) pg/mL Total Protein (6.6-8.7) g/dL Albumin (3.5-5.2) g/dL Globulin (1.3-4.6) g/dL Lipase (13-60) U/L 10/09/20 10/09/20 10/09/20 Range/Units 03:59 03:59 05:40 WBC (4.0-10.0) 10^3/ uL RBC (4.1-5.3) 10^6/u L Hgb (11.7-16.6) g/dL Hct (42.0-52.0) % MCV (80-94) fL MCH (28.0-34.0) pg MCHC (30.0-36.0) g/dL RDW (12.1-15.1) % Plt Count (130-400) 10^3/c mm MPV Neut % (Auto) % Lymph % (Auto) % Wake % (Auto) % Eos % (Auto) % Baso % (Auto) % Neut # (Auto) (1.8-7.7) 10^3/u L Lymph # (Auto) (0.8-4.8) 10^3/u L Wake # (Auto) (0.2-0.9) 10^3/u L Eos # (Auto) (0.0-0.8) 10^3/u L Baso # (Auto) (0.0-0.1) 10^3/u L Nucleated RBC % (a uto) % Nucleated RBCs # /100WBC PT (12.1-14.9) SECO NDS INR (0.8-1.2) Specimen Type Sample Site ABG pH (7.35-7.45) ABG pCO2 (35-45) mmHg ABG pO2 (80.0-100.0) mmH g ABG HCO3 (22-26) mmol/L ABG Base Excess (-2.0-2.0) mmol/ L Matteo Test Hematocrit (42-52) % O2 Delivery Device Database Programmer Analyst ID Sodium 144 (136-145) mmol/L Potassium 3.7 (3.5-5.1) mmol/L Chloride 106 (98-107) mmol/L Carbon Dioxide 28 (22-29) mmol/L Anion Gap 13.7 (5-19) BUN 33 H (8-23) mg/dL Creatinine 0.9 (0.7-1.2) mg/dL GFR Calculation 84.4 L (90-130) mL/min Glucose 170 H (65-115) mg/dL Calculated Osmolal ity 309 H (285-295) mOsm/k g Calcium 9.5 (8.5-10.5) mg/dL Magnesium 1.9 (1.7-2.3) mg/dL Total Bilirubin 0.4 (0.15-1.2) mg/dL AST 19 (0-40) U/L ALT 23 (0-41) U/L Alkaline Phosphata se 68 (40-130) IU/L Troponin T Baselin e 23 H (0-15) ng/L Troponin T 120 Min [place] 23.19 H (0-15) ng/L Delta Troponin T 0.19 (0-10) ABS# NT-Pro-B Natriuret Pep 1626 H (0-125) pg/mL Total Protein 5.5 L (6.6-8.7) g/dL Albumin 3.6 (3.5-5.2) g/dL Globulin 1.9 (1.3-4.6) g/dL Lipase 36 (13-60) U/L Discharge Plan Discharge Patient Disposition: Home Clinical Impression: Congestive heart failure Condition: Stable Prescriptions: Changed furosemide 40 mg tablet 60 mg PO QAM Qty: 0 RF: 0 No Action tamsulosin 0.4 mg capsule 0.4 mg PO DAILY RF: 0 citalopram [Celexa] 10 mg tablet 10 mg PO DAILY RF: 0 leflunomide 20 mg tablet 20 mg PO DAILY RF: 0 Hold Instructions: Resume on 10/13/20. Lantus U-100 Insulin 100 unit/mL solution See Rx Instructions .ROUTE .COMPLEX RF: 0 nitroglycerin [Nitrostat] 0.4 mg tablet, sublingual 0.4 mg SUBLINGUAL Q5M PRN (Reason: Chest Pain) RF: 0 lisinopril 2.5 mg tablet 2.5 mg PO DAILY RF: 0 prednisone 5 mg tablet 10 mg PO DAILY Qty: 60 RF: 3 diclofenac sodium [Voltaren] 1 % gel 2 gm TOPICAL QID Qty: 100 RF: 2 allopurinol 100 mg tablet 100 mg PO DAILY Qty: 30 RF: 3 carvedilol 12.5 mg Tablet 6.25 mg PO BID RF: 0 potassium chloride 20 mEq Tablet Extended Release 20 meq PO DAILY RF: 0 atorvastatin 40 mg PO QPM RF: 0 pantoprazole [Protonix] 40 mg Tablet,Delayed Release (Dr/Ec) 40 mg PO DAILY RF: 0 Vitamin Plus Low Iron 27 mg iron- 1 mg tablet 1 tab PO DAILY RF: 0 ciprofloxacin HCl 500 mg Tablet 250 mg PO BID Qty: 8 RF: 0 amoxicillin 500 mg Capsule 500 mg PO BID RF: 0 diltiazem HCl 120 mg capsule,extended release 24hr 120 mg PO DAILY RF: 0 warfarin [Jantoven] 10 mg Tablet 10 mg PO MoTuWeThFr@1400 Qty: 30 RF: 0 warfarin [Jantoven] 7.5 mg Tablet 7.5 mg PO SuSa@1400 Qty: 15 RF: 0 Discharge Orders: Discharge Order (Routine); Ordered 10/09/20 Ordered By: Raymon Boyce Referrals: Faustina Gonzalez NP [Primary Care Provider] - Activity Restrictions/Additional Instructions: Increase Lasix to 60 mg daily for 3 days then return to 40 mg daily. Follow-up with your primary care doctor first available appointment next week. Return to the emergency room if you have further problems. Sign Out Sign Out Data: Patient Sign Out occurred on 10/09/20 at 07:36. Patient's care was discussed, and care was transferred from to Raymon Boyce DO. Coding Level of Care Code ED Reimbursement Coordinator for Chg Fwd Exam Comprehensive
[2020-10-09 03:27] LABS: ABG PCO2 43.5 mmHg (35-45); ABG PH Result 7.42 (7.35-7.45); Base Excess ABG 3.1 mmol/L (-2.0-2.0); Blood Gas Operator Identificat HARKR; Blood Gas Sample Site Brachial, right; Blood Gas Sample Type Arterial; HCO3 ABG 28.1 mmol/L (22-26); Oxygen Device ROOM AIR
[2020-10-09 04:16] LABS: Basophils # 0.1 10^3/uL (0.0-0.1); Basophils % 1.1 %; Eosinophils # 0.2 10^3/uL (0.0-0.8); Eosinophils % 1.8 %; Hematocrit 37.6 % (42.0-52.0); Hemoglobin 11.3 g/dL (11.7-16.6); Lymphocytes # 1.5 10^3/uL (0.8-4.8); Lymphocytes % 15.2 %; Mean Corpuscular HGB Conc 30.1 g/dL (30.0-36.0); Mean Corpuscular Hemoglobin 18.6 pg (28.0-34.0); Mean Corpuscular Volume 61.7 fL (80-94); Monocytes # 0.8 10^3/uL (0.2-0.9); Monocytes % 7.8 %; Neutrophils # 7.24 10^3/uL (1.8-7.7); Neutrophils % 73.1 %; Nucleated Red Blood Cells % 0 %; Platelet Count 216 10^3/cmm (130-400); Red Blood Count 6.09 10^6/uL (4.1-5.3); Red Cell Distribution Width 18.1 % (12.1-15.1); White Blood Count 9.9 10^3/uL (4.0-10.0)
[2020-10-09 04:32] LABS: INR 1.96 (0.8-1.2)
[2020-10-09 04:42] LABS: Troponin(5th) Baseline 23 ng/L (0-15)
[2020-10-09 04:50] LABS: Alanine Aminotransferase 23 U/L (0-41); Albumin Level 3.6 g/dL (3.5-5.2); Alkaline Phosphatase 68 IU/L (40-130); Anion Gap 13.7 (5-19); Aspartate Amino Transferase 19 U/L (0-40); Blood Urea Nitrogen 33 mg/dL (8-23); Calcium 9.5 mg/dL (8.5-10.5); Carbon Dioxide 28 mmol/L (22-29); Chloride 106 mmol/L (98-107); Globulin 1.9 g/dL (1.3-4.6); Glomerular Filtration Rate 84.4 mL/min (90-130); Glucose 170 mg/dL (65-115); Lipase 36 U/L (13-60); Magnesium 1.9 mg/dL (1.7-2.3); NT Pro B Type Natriuretic Pept 1626 pg/mL (0-125); Osmolality Calculated 309 mOsm/kg (285-295); Potassium 3.7 mmol/L (3.5-5.1); Sodium 144 mmol/L (136-145); Total Bilirubin 0.4 mg/dL (0.15-1.2); Total Protein 5.5 g/dL (6.6-8.7)
--- NOTE | 2020-10-09 04:56 | PC.NURSE ---
First troponin was not collected until 0400, physician would like 2nd troponin at 0600 instead of 0500.
[2020-10-09] MEDS: FUROsemide 10 mg/mL SDV 4mL 40 MG IVP (05:39)
[2020-10-09 06:07] LABS: Troponin 5 2HR 23.19 ng/L (0-15); Troponin 5 2HR Delta 0.19 ABS# (0-10)
--- NOTE | 2020-10-09 07:04 | PC.NURSE ---
Received report assumed care. No changes noted from report. Sitting in a wheelchair. at bedside. Continue to monitor .
--- NOTE | 2020-10-09 09:03 | ECG_ITS ---
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 Measurements Intervals [place] Rate: 96 P: CO: QRS: -28 QRSD: 97 T: 98 QT: 363 QTc: 460 Interpretive Statements ATRIAL FIBRILLATION BORDERLINE LEFT AXIS DEVIATION [QRS AXIS < -20] MODERATE VOLTAGE CRITERIA FOR LVH, CONSIDER NORMAL VARIANT [MEETS CRITERIA IN ONE OF: R(aVL), S(V1), R(V5), R(V5/V6)+S(V1)] NONSPECIFIC T-WAVE ABNORMALITY Compared to ECG 10/09/2020 03:19:36 Ventricular premature complex(es) no longer present Aberrant conduction of supraventricular beat(s) no longer present T-wave abnormality still present Electronically Signed On 10-09-2020 10:27:58 OUTSIDE MAINTENANCE WORKER by Cassy Monreal M.D. [id number]
== END 2020-10-09 08:03 | disposition home or self-care (01) ==
PROVIDERS: Emergency Medicine; Emergency Provider Family Medicine; PCP Nurse Practitioner Family
DX: I11.0 Hypertensive heart disease with heart failure (principal); I50.9 Heart failure, unspecified; Z79.4 Long term (current) use of insulin; Z79.01 Long term (current) use of anticoagulants; I48.91 Unspecified atrial fibrillation; Z86.73 Personal history of transient ischemic attack (TIA), and cerebral infarction without residual deficits; E11.9 Type 2 diabetes mellitus without complications; E78.5 Hyperlipidemia, unspecified; M06.9 Rheumatoid arthritis, unspecified; Z87.891 Personal history of nicotine dependence
CPT/HCPCS: 12345; 36600; 71045; 80053; 82803; 83690; 83735; 83880; 84484; 85025; 85610; 93005; 96374; 96375; 99283; J1940

== ENCOUNTER 2020-10-10 08:07 | Emergency (ER) | payer MEDICARE, OTHER, SELFPAY ==
--- NOTE | 2020-10-10 08:10 | XRR_ITS ---
PROCEDURE INFORMATION: Exam: XR Chest, 1 View Exam date and time: 10/10/2020 8:38 AM Age: 65 years old Clinical indication: Dyspnea TECHNIQUE: Imaging protocol: XR of the chest Views: 1 view. COMPARISON: CR XR chest 1V portable [id number] 10/09/2020 3:27 AM FINDINGS: Lungs: Unremarkable. No consolidation. Pleural space: Unremarkable. No pleural effusion. No pneumothorax. Heart/Mediastinum: The cardiac silhouette is enlarged but unchanged. Bones/joints: Unremarkable. XR/XR chest 1V portable [id number] IMPRESSION: Stable cardiac enlargement. No acute abnormality.
--- NOTE | 2020-10-10 08:11 | ECG_ITS ---
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 Measurements Intervals [place] Rate: 89 P: NV: QRS: -27 QRSD: 92 T: 135 QT: 366 QTc: 445 Interpretive Statements ATRIAL FIBRILLATION BORDERLINE LEFT AXIS DEVIATION [QRS AXIS < -20] MODERATE VOLTAGE CRITERIA FOR LVH, CONSIDER NORMAL VARIANT [MEETS CRITERIA IN ONE OF: R(aVL), S(V1), R(V5), R(V5/V6)+S(V1)] NONSPECIFIC T-WAVE ABNORMALITY Compared to ECG 10/09/2020 04:48:06 No significant changes Electronically Signed On 10-11-2020 18:47:16 TOW TRUCK DISPATCHER by Ari Pettit M.D. [id number]
[2020-10-10 08:21] VITALS: BP 141/71; PULSE 82; RESP 20; TEMP 36.5; O2SAT 94; BMI 38.3
--- NOTE | 2020-10-10 08:33 | ED_ITS ---
HPI - SOB/Dyspnea General: Chief Complaint: Shortness of Breath/Dyspnea Stated Complaint: SOB Time Seen by Provider: 10/10/20 08:20 Source: patient and family Mode of arrival: ambulatory Limitations: no limitations History of Present Illness: HPI Narrative: Mr. Loyd is a 65-year-old male who comes in with a complaint of shortness of breath that began this morning. Patient has a history of COPD, congestive heart failure and frequently is here with shortness of breath complaints. He was most recently seen 2 days ago by me and then turned over to the oncoming doctor who discharged him home after the patient had a good diuresis and was feeling better. His states that he was doing well at home until this morning when she noticed he was gasping at times of breath. There has been no reported cough, no fever, no chest pain but he has had increased leg swelling. When asked Mr. oLyd says he still has shortness of breath when he lays flat or he exerts himself. Other than the shortness of breath this morning they have no other complaints. Associated symptoms: Reports orthopnea; Deny abdominal pain, chest congestion, chest pain, diaphoresis, dizziness, extremity pain, fever(s), hemoptysis, lightheadedness, nausea, palpitations, syncope or vomiting Review of Systems Const: Denies: fever(s), chills, body aches, fatigue, malaise or diaphoresis Eyes: Denies: change in vision, blurry vision, photophobia, eye discomfort, eye discharge, eye redness or yellow eyes ENMT: Denies: throat pain, odynophagia, hoarseness, swelling of lips/tongue, ear or mastoid pain, ear discharge, change in hearing or nasal discharge Card: Reports: dyspnea on exertion and orthopnea; Denies: chest pain, palpitations, irregular heart rhythm, edema, lightheadedness, syncope or pre-syncope Resp: Denies: productive cough, non-productive cough, wheezing, hemoptysis or chest congestion GI: Denies: abdominal pain, nausea, vomiting, hematemesis, coffee ground emesis, heartburn, diarrhea, constipation, GI cramping, hematochezia or melena : Denies: flank pain, dysuria, urinary frequency, urinary urgency or hematuria Musc: Denies: neck pain, back pain, extremity pain, extremity swelling, joint pain, joint swelling, joint redness, joint warmth or joint stiffness Skin/Breast: Denies: rash, pruritus, erythema, skin pain or skin tenderness Neuro: Denies: headache(s), numbness in extremities, weakness in extremities, sensory changes, lack of coordination, difficulty walking, dizziness, vertigo, confusion, Slurred speech present or seizure-like activity Aaron/Lymph: Denies: easy bruising, easy bleeding, petechiae, purpura or enlarged lymph nodes All/Imm: Denies: urticaria, throat swelling, tongue swelling, facial swelling or acute wheezing PFSH ED PFSH: Medical History Aortic stenosis Atrial fibrillation Bilateral renal masses CHF (congestive heart failure) Chronic use of steroids CVA (cerebral vascular accident) Diabetes Dyslipidemia Edema 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 Essential hypertension Gout Hx of [place] spotted fever Ischemic cardiomyopathy Left ventricular hypertrophy Obesity AJAY (obstructive sleep apnea) Pulmonary HTN Renal calculi Rheumatoid arthritis Thalassemia Surgical History H/O lithotripsy S/P TAVR (transcatheter aortic valve replacement) Family History Mother Stroke Father Myocardial infarction Other CAD (coronary artery disease) Chronic kidney disease (CKD) Diabetes Hypertension Social History Smoking and tobacco status: former smoker Alcohol intake: former Marital status: History of recent travel: No Physical Exam Const: COMMON NORMALS: no acute distress, patient oriented x3, no limitations and alert GENERAL APPEARANCE: cooperative HENMT: COMMON NORMALS: normocephalic, atraumatic, external ears normal, EAC's normal and Normal external nose present HEAD & SCALP: normal to inspection, normocephalic and atraumatic FACE & SINUS: normal facial exam and face symmetric NOSE: Normal external nose present and Normal nares present EXTERNAL EAR: Yes external ears normal EXTERNAL AUDITORY CANAL: EAC's normal MOUTH: Normal oral and palatal mucosa present, lip normal and tongue normal Eye: COMMON NORMALS: Equal, round and reactive pupils present and conjunctivae normal GENERAL EYE: appearance normal, both eyes and all related structures ALIGNMENT: Yes alignment normal PERIORBITAL: periorbital findings normal EYELID: eyelids normal CONJUNCTIVA: Yes conjunctivae normal SCLERA: sclerae normal PUPIL: Yes Equal, round and reactive pupils present Neck/C-Spine: COMMON NORMALS: full ROM, no lymphadenopathy, supple, no meningeal signs and no JVD GENERAL: Yes normal visual inspection and Yes trachea midline Chest: COMMONS NORMALS: normal inspection of the chest and normal palpation of entire chest wall Resp: COMMON NORMALS: normal respiratory effort, No retractions, No use of accessory muscles and clear to auscultation bilaterally EFFORT & INSPECTION: Yes able to speak in complete sentences and Yes symmetric chest movement AUSCULTATION: clear to auscultation bilaterally, no crackles, rales, no rhonchi and no wheezes Cardio: COMMON NORMALS: no JVD, regular rate, regular rhythm, S1 normal heart sound present and S2 normal heart sound present RATE: regular rate RHYTHM: regular rhythm HEART SOUNDS: S1 normal heart sound present, S2 normal heart sound present, no click, no gallops, no murmurs and no rubs GI: COMMON NORMALS: Soft to palpation and No hepatosplenomegaly present PALPATION: Yes Soft to palpation, No Tenderness to palpation present (GI), No Guarding due to palpation present (GI), No Rigid due to palpation, Yes No hepatosplenomegaly present, No Hernia present, No Palpable mass present and No Pulsatile mass present : COMMON NORMALS: Yes no CVA tenderness BLADDER/KIDNEY EXAM: Yes no CVA tenderness Back/Pelvis: COMMON NORMALS: no CVA tenderness, thoracic and lumbar spine normal to inspection, no thoracic nor lumbar tenderness and thoraco-lumbar ROM normal Extremity: COMMON NORMALS: normal to inspection, full ROM, capillary refill normal, no joint enlargement and no calf tenderness GENERAL: Yes edema Neuro: COMMON NORMALS: patient oriented x3, CN's II-XII intact bilaterally, moves all extremities, no focal motor deficits and no sensory deficits noted SENSORIUM/ORIENTATION: Yes alert MENINGEAL SIGNS: Yes no meningeal signs SPEECH: speech normal Psych: COMMON NORMALS: mental status grossly normal, Normal thought process present, cooperative, normal affect, speech normal and activity/motor behavior normal SPEECH: Yes normal speech THOUGHT PROCESS: Normal thought process present Skin: COMMON NORMALS: no rashes or lesions noted, turgor normal, no jaundice, no petechiae and no mottling GENERAL SKIN EXAM: no rashes or lesions noted and turgor normal Course Vital Signs: Vital signs: Vital Signs Temperature 97.7 F 10/10/20 08:21 Pulse Rate 95 10/10/20 11:55 Respiratory Rate 18 10/10/20 11:55 Blood Pressure 134/97 10/10/20 11:55 Pulse Oximetry 92 10/10/20 11:55 MDM - SOB/Dyspnea MDM Narrative: Medical decision making narrative: 1034 -patient appears not much change from yesterday. Still not having any chest pain. Denies any shortness of breath here. His labs are close to the same. I have offered further work-up in the hospital but he is why feels nothing is changed would rather go home. They did not fill the prescriptions or increase his Lasix as advised by Dr. Boyce yesterday. They agree to return if their symptoms change or worsen but at this time they want to be discharged. I have documented waiting for at least the second EKG and troponin to be obtained. 1157 -patient is feeling better and still wants to go home. His second troponin is resulted and is trended downward. All of his labs are within his normal range. He has diuresed some urine here. Questioned his again and she affirms that they will be able to get his Lasix changed to 60 mg daily until they follow-up with her doctor. They had no other questions or concerns and still want to go home at this time. They do agree to return if his symptoms change or worsen specifically if he has worsening shortness of breath, chest pain or fever. Lab Data: Attestation: I reviewed the patient's lab results. Labs: Lab Results 10/10/20 10/10/20 10/10/20 Range/Units 08:53 08:53 08:53 WBC 10.2 H (4.0-10.0) 10^3/ uL RBC 6.17 H (4.1-5.3) 10^6/u L Hgb 11.2 L (11.7-16.6) g/dL Hct 38.0 L (42.0-52.0) % MCV 61.6 L (80-94) fL MCH 18.2 L (28.0-34.0) pg MCHC 29.5 L (30.0-36.0) g/dL RDW 18.2 H (12.1-15.1) % Plt Count 210 (130-400) 10^3/c mm MPV 10.3 (7.4-10.4) fL Neut % (Auto) 78.6 % Lymph % (Auto) 11.0 % Randolph % (Auto) 6.8 % Eos % (Auto) 1.5 % Baso % (Auto) 0.8 % Neut # (Auto) 8.00 H (1.8-7.7) 10^3/u L Lymph # (Auto) 1.1 (0.8-4.8) 10^3/u L Randolph # (Auto) 0.7 (0.2-0.9) 10^3/u L Eos # (Auto) 0.2 (0.0-0.8) 10^3/u L Baso # (Auto) 0.1 (0.0-0.1) 10^3/u L Nucleated RBC % (a uto) 0 % Nucleated RBCs # 0.0 /100WBC PT 25.80 H (12.1-14.9) SECO NDS INR 2.26 H (0.8-1.2) Specimen Type ABG pH (7.35-7.45) ABG pCO2 (35-45) mmHg ABG pO2 (80.0-100.0) mmH g ABG HCO3 (22-26) mmol/L ABG O2 Saturation ABG Base Excess (-2.0-2.0) mmol/ L Matteo Test A-a O2 Gradient Hematocrit (42-52) % Hgb O2 Saturation (95-100) % Carboxyhemoglobin (0.4-20.1) %THgb Methemoglobin (0.4-1.5) % Total Hemoglobin (14-18) g/dL Ionized Calcium (1.1-1.4) mmol/L O2 Delivery Device O2 Liters/Min % Tufting Machine Fixer ID Sodium 142 (136-145) mmol/L Potassium 3.7 (3.5-5.1) mmol/L Chloride 105 (98-107) mmol/L Carbon Dioxide 30 H (22-29) mmol/L Anion Gap 10.7 (5-19) BUN 32 H (8-23) mg/dL Creatinine 1.0 (0.7-1.2) mg/dL GFR Calculation 74.5 L (90-130) mL/min Glucose 206 H (65-115) mg/dL Calculated Osmolal ity 307 H (285-295) mOsm/k g Calcium 9.5 (8.5-10.5) mg/dL Total Bilirubin 0.4 (0.15-1.2) mg/dL AST 18 (0-40) U/L ALT 23 (0-41) U/L Alkaline Phosphata se 63 (40-130) IU/L Troponin T Baselin e (0-15) ng/L Troponin T 120 Min [place] (0-15) ng/L Delta Troponin T (0-10) ABS# NT-Pro-B Natriuret Pep 1698 H (0-125) pg/mL Total Protein 5.2 L (6.6-8.7) g/dL Albumin 3.4 L (3.5-5.2) g/dL Globulin 1.8 (1.3-4.6) g/dL Urine Color (Yellow) Urine Appearance (CLEAR) Urine pH (5-7) Ur Specific Gravit y (1.005-1.030) Urine Protein (Negative) Urine Glucose (UA) (Normal) Urine Ketones (Negative) Urine Blood (Negative) Urine Nitrate (Negative) Urine Bilirubin (Negative) Urine Urobilinogen (Negative) mg/dL Ur Leukocyte Michelle ase (Negative) Urine RBC (0-2) /hpf Urine WBC (0-5) /hpf Ur Squamous Epith Cells (0-5) /hpf Amorphous Sediment Urine Bacteria (NONE) /hpf Influenza Type A A g (Negative) Influenza Type B A g (Negative) SARS-CoV-2 Ag (Rap id) (Negative) 10/10/20 10/10/20 10/10/20 Range/Units 08:53 09:05 09:05 WBC (4.0-10.0) 10^3/ uL RBC (4.1-5.3) 10^6/u L Hgb (11.7-16.6) g/dL Hct (42.0-52.0) % MCV (80-94) fL MCH (28.0-34.0) pg MCHC (30.0-36.0) g/dL RDW (12.1-15.1) % Plt Count (130-400) 10^3/c mm MPV (7.4-10.4) fL Neut % (Auto) % Lymph % (Auto) % Randolph % (Auto) % Eos % (Auto) % Baso % (Auto) % Neut # (Auto) (1.8-7.7) 10^3/u L Lymph # (Auto) (0.8-4.8) 10^3/u L Randolph # (Auto) (0.2-0.9) 10^3/u L Eos # (Auto) (0.0-0.8) 10^3/u L Baso # (Auto) (0.0-0.1) 10^3/u L Nucleated RBC % (a uto) % Nucleated RBCs # /100WBC PT (12.1-14.9) SECO NDS INR (0.8-1.2) Specimen Type ABG pH (7.35-7.45) ABG pCO2 (35-45) mmHg ABG pO2 (80.0-100.0) mmH g ABG HCO3 (22-26) mmol/L ABG O2 Saturation ABG Base Excess (-2.0-2.0) mmol/ L Matteo Test A-a O2 Gradient Hematocrit (42-52) % Hgb O2 Saturation (95-100) % Carboxyhemoglobin (0.4-20.1) %THgb Methemoglobin (0.4-1.5) % Total Hemoglobin (14-18) g/dL Ionized Calcium (1.1-1.4) mmol/L O2 Delivery Device O2 Liters/Min % Tufting Machine Fixer ID Sodium (136-145) mmol/L Potassium (3.5-5.1) mmol/L Chloride (98-107) mmol/L Carbon Dioxide (22-29) mmol/L Anion Gap (5-19) BUN (8-23) mg/dL Creatinine (0.7-1.2) mg/dL GFR Calculation (90-130) mL/min Glucose (65-115) mg/dL Calculated Osmolal ity (285-295) mOsm/k g Calcium (8.5-10.5) mg/dL Total Bilirubin (0.15-1.2) mg/dL AST (0-40) U/L ALT (0-41) U/L Alkaline Phosphata se (40-130) IU/L Troponin T Baselin e 24 H (0-15) ng/L Troponin T 120 Min [place] (0-15) ng/L Delta Troponin T (0-10) ABS# NT-Pro-B Natriuret Pep (0-125) pg/mL Total Protein (6.6-8.7) g/dL Albumin (3.5-5.2) g/dL Globulin (1.3-4.6) g/dL Urine Color (Yellow) Urine Appearance (CLEAR) Urine pH (5-7) Ur Specific Gravit y (1.005-1.030) Urine Protein (Negative) Urine Glucose (UA) (Normal) Urine Ketones (Negative) Urine Blood (Negative) Urine Nitrate (Negative) Urine Bilirubin (Negative) Urine Urobilinogen (Negative) mg/dL Ur Leukocyte Michelle ase (Negative) Urine RBC (0-2) /hpf Urine WBC (0-5) /hpf Ur Squamous Epith Cells (0-5) /hpf Amorphous Sediment Urine Bacteria (NONE) /hpf Influenza Type A A g Negative (Negative) Influenza Type B A g Negative (Negative) SARS-CoV-2 Ag (Rap id) Negative (Negative) 10/10/20 10/10/20 10/10/20 Range/Units 09:15 10:42 10:53 WBC (4.0-10.0) 10^3/ uL RBC (4.1-5.3) 10^6/u L Hgb (11.7-16.6) g/dL Hct (42.0-52.0) % MCV (80-94) fL MCH (28.0-34.0) pg MCHC (30.0-36.0) g/dL RDW (12.1-15.1) % Plt Count (130-400) 10^3/c mm MPV (7.4-10.4) fL Neut % (Auto) % Lymph % (Auto) % Randolph % (Auto) % Eos % (Auto) % Baso % (Auto) % Neut # (Auto) (1.8-7.7) 10^3/u L Lymph # (Auto) (0.8-4.8) 10^3/u L Randolph # (Auto) (0.2-0.9) 10^3/u L Eos # (Auto) (0.0-0.8) 10^3/u L Baso # (Auto) (0.0-0.1) 10^3/u L Nucleated RBC % (a uto) % Nucleated RBCs # /100WBC PT (12.1-14.9) SECO NDS INR (0.8-1.2) Specimen Type Arterial ABG pH 7.43 (7.35-7.45) ABG pCO2 46.1 H (35-45) mmHg ABG pO2 123.0 H (80.0-100.0) mmH g ABG HCO3 30.6 H (22-26) mmol/L ABG O2 Saturation 97.0 ABG Base Excess 5.5 H (-2.0-2.0) mmol/ L Matteo Test Pos A-a O2 Gradient Not Reportable Hematocrit 34.8 L (42-52) % Hgb O2 Saturation 96.2 (95-100) % Carboxyhemoglobin < 0.0 L (0.4-20.1) %THgb Methemoglobin 1.1 (0.4-1.5) % Total Hemoglobin 11.4 L (14-18) g/dL Ionized Calcium 1.3 (1.1-1.4) mmol/L O2 Delivery Device Nc O2 Liters/Min 2.0 % Tufting Machine Fixer ID Bd Sodium 143.0 (136-145) mmol/L Potassium 3.8 (3.5-5.1) mmol/L Chloride (98-107) mmol/L Carbon Dioxide (22-29) mmol/L Anion Gap (5-19) BUN (8-23) mg/dL Creatinine (0.7-1.2) mg/dL GFR Calculation (90-130) mL/min Glucose 196.0 H (65-115) mg/dL Calculated Osmolal ity (285-295) mOsm/k g Calcium (8.5-10.5) mg/dL Total Bilirubin (0.15-1.2) mg/dL AST (0-40) U/L ALT (0-41) U/L Alkaline Phosphata se (40-130) IU/L Troponin T Baselin e (0-15) ng/L Troponin T 120 Min [place] 20.61 H (0-15) ng/L Delta Troponin T -3.39 L (0-10) ABS# NT-Pro-B Natriuret Pep (0-125) pg/mL Total Protein (6.6-8.7) g/dL Albumin (3.5-5.2) g/dL Globulin (1.3-4.6) g/dL Urine Color Yellow (Yellow) Urine Appearance Clear (CLEAR) Urine pH 5 (5-7) Ur Specific Gravit y 1.005 (1.005-1.030) Urine Protein Neg (Negative) Urine Glucose (UA) Norm (Normal) Urine Ketones Negative (Negative) Urine Blood Trace H (Negative) Urine Nitrate Negative (Negative) Urine Bilirubin Neg (Negative) Urine Urobilinogen Norm (Negative) mg/dL Ur Leukocyte Michelle ase Trace H (Negative) Urine RBC 0-4 H (0-2) /hpf Urine WBC 0-4 H (0-5) /hpf Ur Squamous Epith Cells Rare (0-5) /hpf Amorphous Sediment Not Reportable Urine Bacteria Trace (NONE) /hpf Influenza Type A A g (Negative) Influenza Type B A g (Negative) SARS-CoV-2 Ag (Rap id) (Negative) Imaging Data^: CXR: Attestation: I personally reviewed and interpreted this imaging study as follows: My impression: Cardiomegaly without evidence of acute focal infiltrate or significant pulmonary vascular congestion. EKG Data^: EKG 1: Attestation: I personally reviewed and interpreted this EKG as follows: EKG Interpretation Date: 10/10/20 EKG interpretation time: 08:35 Interpretation: Atrial fibrillation with a ventricular rate of 89 beats a minute, LVH, nonspecific ST-T wave changes, unchanged from previous. EKG 2: Attestation: I personally reviewed and interpreted this EKG as follows: EKG Interpretation Date: 10/10/20 EKG interpretation time: 10:28 Interpretation: Atrial fibrillation with a ventricular rate of 91 beats a minute, left axis deviation, LVH, no other acute ST-T wave changes. Discharge Plan Discharge Patient Disposition: Home Clinical Impression: Acute exacerbation of CHF (congestive heart failure) Qualifiers: Heart failure type: unspecified Qualified Code(s): I50.9 - Heart failure, unspecified Condition: Stable Prescriptions: No Action tamsulosin 0.4 mg capsule 0.4 mg PO DAILY RF: 0 citalopram [Celexa] 10 mg tablet 10 mg PO DAILY RF: 0 leflunomide 20 mg tablet 20 mg PO DAILY RF: 0 Hold Instructions: Resume on 10/13/20. Lantus U-100 Insulin 100 unit/mL solution See Rx Instructions .ROUTE .COMPLEX RF: 0 nitroglycerin [Nitrostat] 0.4 mg tablet, sublingual 0.4 mg SUBLINGUAL Q5M PRN (Reason: Chest Pain) RF: 0 lisinopril 2.5 mg tablet 2.5 mg PO DAILY RF: 0 prednisone 5 mg tablet 10 mg PO DAILY Qty: 60 RF: 3 allopurinol 100 mg tablet 100 mg PO DAILY Qty: 30 RF: 3 carvedilol 12.5 mg Tablet 6.25 mg PO BID RF: 0 potassium chloride 20 mEq Tablet Extended Release 20 meq PO DAILY RF: 0 atorvastatin 40 mg PO QPM RF: 0 pantoprazole [Protonix] 40 mg Tablet,Delayed Release (Dr/Ec) 40 mg PO DAILY RF: 0 Vitamin Plus Low Iron 27 mg iron- 1 mg tablet 1 tab PO DAILY RF: 0 ciprofloxacin HCl 500 mg Tablet 250 mg PO BID Qty: 8 RF: 0 furosemide 40 mg tablet 60 mg PO QAM Qty: 0 RF: 0 Jantoven 10 mg tablet 10 mg PO MOTUWETHFR RF: 0 Voltaren 1 % gel 2 gm TOPICAL QID PRN (Reason: Pain) RF: 0 amoxicillin 500 mg Capsule 500 mg PO BID RF: 0 diltiazem HCl 120 mg capsule,extended release 24hr 120 mg PO DAILY RF: 0 warfarin [Jantoven] 7.5 mg Tablet 7.5 mg PO SuSa@1400 Qty: 15 RF: 0 Discharge Orders: Discharge Order (Routine); Ordered 10/10/20 Ordered By: Lorrie Cabral Referrals: Faustina Gonzalez NP [Primary Care Provider] - Discharge Diet: Advance as tolerated Discharge Activity: Increase activity as tolerated Patient Instructions: Congestive Heart Failure Activity Restrictions/Additional Instructions: Please return to the ER immediately for any of the signs or symptoms listed on your discharge instruction sheets, worsening/changing of your symptoms, you are not getting better as quickly as expected, or for ANY other cause or concerns. Increase your Lasix to 60 mg daily as described yesterday. Be certain to follow-up with your doctor as soon as possible next week for recheck. Return to the ER for chest pain, worsening shortness of breath, fever, vomiting, chest pain, or for any other cause for concern. Coding Level of Care Code ED Strip Tank Tender for Chg Fwd Exam Comprehensive
[2020-10-10 08:59] VITALS: BP 141/71; PULSE 76; RESP 18; O2SAT 94
[2020-10-10 09:26] LABS: Basophils # 0.1 10^3/uL (0.0-0.1); Basophils % 0.8 %; Eosinophils # 0.2 10^3/uL (0.0-0.8); Eosinophils % 1.5 %; Hemoglobin 11.2 g/dL (11.7-16.6); Lymphocytes # 1.1 10^3/uL (0.8-4.8); Mean Corpuscular HGB Conc 29.5 g/dL (30.0-36.0); Mean Corpuscular Hemoglobin 18.2 pg (28.0-34.0); Mean Corpuscular Volume 61.6 fL (80-94); Mean Platelet Volume 10.3 fL (7.4-10.4); Monocytes # 0.7 10^3/uL (0.2-0.9); Monocytes % 6.8 %; Neutrophils % 78.6 %; Nucleated Red Blood Cells % 0 %; Platelet Count 210 10^3/cmm (130-400); Red Blood Count 6.17 10^6/uL (4.1-5.3); Red Cell Distribution Width 18.2 % (12.1-15.1); White Blood Count 10.2 10^3/uL (4.0-10.0)
[2020-10-10 09:41] LABS: INR 2.26 (0.8-1.2)
[2020-10-10 09:46] LABS: Alanine Aminotransferase 23 U/L (0-41); Albumin Level 3.4 g/dL (3.5-5.2); Alkaline Phosphatase 63 IU/L (40-130); Anion Gap 10.7 (5-19); Aspartate Amino Transferase 18 U/L (0-40); Blood Urea Nitrogen 32 mg/dL (8-23); Calcium 9.5 mg/dL (8.5-10.5); Carbon Dioxide 30 mmol/L (22-29); Chloride 105 mmol/L (98-107); Globulin 1.8 g/dL (1.3-4.6); Glomerular Filtration Rate 74.5 mL/min (90-130); Glucose 206 mg/dL (65-115); Osmolality Calculated 307 mOsm/kg (285-295); Potassium 3.7 mmol/L (3.5-5.1); Sodium 142 mmol/L (136-145); Total Bilirubin 0.4 mg/dL (0.15-1.2); Total Protein 5.2 g/dL (6.6-8.7)
[2020-10-10 09:48] LABS: Troponin(5th) Baseline 24 ng/L (0-15)
[2020-10-10 10:03] LABS: Influenza A by IFA Negative (Negative); SARS Covid-2 Antigen Negative (Negative)
[2020-10-10 10:04] LABS: Influenza B by IFA Negative (Negative)
[2020-10-10 10:11] LABS: NT Pro B Type Natriuretic Pept 1698 pg/mL (0-125)
--- NOTE | 2020-10-10 10:11 | ECG_ITS ---
[facility] Test Date: 2020-10-10 Pat Name: Ry Loyd Department: Room: Gender: Male [address]: : 1955 Requested By: Lorrie Montoya Order Number: [id number] Morena MD: Ari Pettit M.D. Measurements Intervals [place] Rate: 91 P: [place]: QRS: -23 QRSD: 87 T: 146 QT: 354 QTc: 437 Interpretive Statements ATRIAL FIBRILLATION BORDERLINE LEFT AXIS DEVIATION [QRS AXIS < -20] MODERATE VOLTAGE CRITERIA FOR LVH, CONSIDER NORMAL VARIANT [MEETS CRITERIA IN ONE OF: R(aVL), S(V1), R(V5), R(V5/V6)+S(V1)] MODERATE T-WAVE ABNORMALITY, CONSIDER LATERAL ISCHEMIA [-0.1+ mV T WAVE IN I/aVL/V5/V6] Compared to ECG 10/10/2020 08:35:35 Possible ischemia now present T-wave abnormality still present Electronically Signed On 10-11-2020 19:19:02 EVENING OR NIGHT NURSE SUPERVISOR by Ari Pettit M.D. [email or web address]
[2020-10-10 10:20] LABS: ABG PCO2 46.1 mmHg (35-45); ABG PH Result 7.43 (7.35-7.45); Arterial Blood Gas Hematocrit 34.8 % (42-52); Base Excess ABG 5.5 mmol/L (-2.0-2.0); Blood Gas Allen Test Pos; Blood Gas Sample Type Arterial; Carboxyhemoglobin < 0.0 %THgb (0.4-20.1); HCO3 ABG 30.6 mmol/L (22-26); HGB O2 Sat 96.2 % (95-100); Ionized Calcium Level - ABG 1.3 mmol/L (1.1-1.4); Methemoglobin 1.1 % (0.4-1.5); Potassium Level - ABG 3.8 mmol/L (3.5-5.0); Total Hemoglobin 11.4 g/dL (14-18)
[2020-10-10] MEDS: FUROsemide 10 mg/mL SDV 4mL 40 MG IVP (10:44)
[2020-10-10 11:09] LABS: Add Urine Microscopic? YES; Bilirubin Urine Neg (Negative); Blood Urine Trace (Negative); Glucose Urine UA Norm (Normal); Ketones Urine Negative (Negative); Leukocyte Esterase Urine Trace (Negative); Nitrate Urine Negative (Negative); Protein Urine Neg (Negative); Specific Gravity, Urine 1.005 (1.005-1.030); Urine Appearance Clear (CLEAR); Urine Color Yellow (Yellow); Urobilinogen Urine Norm (Negative); pH Urine 5 (5-7)
[2020-10-10 11:14] LABS: RBC Urine 0-4 /hpf (0-2)
[2020-10-10 11:15] LABS: Add Urine Culture? No; Bacteria Urine TRACE /hpf; Squamous Epithelial Cell Urine RARE /hpf (0-5); WBC Urine 0-4 /hpf (0-5)
[2020-10-10 11:22] LABS: Troponin 5 2HR 20.61 ng/L (0-15)
[2020-10-10 11:38] LABS: Blood Gas Operator Identificat BD; Oxygen Device NC
[2020-10-10 11:44] LABS: Troponin 5 2HR Delta -3.39 ABS# (0-10)
[2020-10-10 11:55] VITALS: BP 134/97; PULSE 95; RESP 18; O2SAT 92
[2020-10-10 12:15] VITALS: BP 129/87; PULSE 96; RESP 20; TEMP 37.1; O2SAT 92
== END 2020-10-10 12:18 | disposition home or self-care (01) ==
PROVIDERS: Emergency Provider Emergency Medicine; PCP Nurse Practitioner Family
DX: I50.9 Heart failure, unspecified (principal); Z87.891 Personal history of nicotine dependence; E78.5 Hyperlipidemia, unspecified; Z86.73 Personal history of transient ischemic attack (TIA), and cerebral infarction without residual deficits; I10 Essential (primary) hypertension; E11.9 Type 2 diabetes mellitus without complications; Z79.52 Long term (current) use of systemic steroids; J44.9 Chronic obstructive pulmonary disease, unspecified; I48.91 Unspecified atrial fibrillation; I35.0 Nonrheumatic aortic (valve) stenosis; Z79.2 Long term (current) use of antibiotics; I38 Endocarditis, valve unspecified; E66.9 Obesity, unspecified; Z68.38 Body mass index [BMI] 38.0-38.9, adult; I27.20 Pulmonary hypertension, unspecified; Z79.4 Long term (current) use of insulin; G47.33 Obstructive sleep apnea (adult) (pediatric)
CPT/HCPCS: 12345; 36600; 71045; 80051; 80053; 81001; 82330; 82805; 83605; 83880; 84484; 85025; 85610; 87426; 87804; 93005; 96374; 96375; 99283; 99284; J1940

== ENCOUNTER 2020-10-11 21:48 | Emergency (ER) | payer MEDICARE, OTHER, SELFPAY ==
[2020-10-11 21:58] VITALS: BP 144/99; PULSE 87; RESP 18; TEMP 36.6; O2SAT 97; BMI 38.3
--- NOTE | 2020-10-11 22:03 | ECG_ITS ---
[facility] Test Date: 2020-10-11 Pat Name: Ry Loyd Department: Room: Gender: Male [place]: : 1955 Requested By: Dale Farfan Order Number: [id number] Morena MD: Ari Pettit M.D. Measurements Intervals [place] Rate: 93 P: SD: QRS: -16 QRSD: 87 T: 143 QT: 341 QTc: 425 Interpretive Statements ATRIAL FIBRILLATION MODERATE VOLTAGE CRITERIA FOR LVH, CONSIDER NORMAL VARIANT [MEETS CRITERIA IN ONE OF: R(aVL), S(V1), R(V5), R(V5/V6)+S(V1)] NONSPECIFIC T-WAVE ABNORMALITY Compared to ECG 10/10/2020 10:28:06 Possible ischemia no longer present T-wave abnormality still present Electronically Signed On 10-12-2020 16:39:28 HEEL SEATER by Ari Pettit M.D. [id number]
--- NOTE | 2020-10-11 22:10 | W.ED.SOB ---
HPI - SOB/Dyspnea General: Chief Complaint: Shortness of Breath/Dyspnea Stated Complaint: SOB Time Seen by Provider: 10/11/20 22:05 History of Present Illness: HPI Narrative: Patient is a 65-year-old male comes to the ED with shortness of breath. Patient has been seeing here in the ED yesterday October 10 and the day before October 09 for same complaint. Patient has a history of COPD, A. fib and CHF. Patient says he has episodes of shortness of breath that occur while at rest. He currently is not having an episode of shortness of breath. Patient's is present and says that she just was told of the dose for the next 3 days of Lasix to 60 mg. Patient's was wondering if she could give him an additional 20 mg of Lasix to help with fluid retention as needed. Patient has no chest pain or any other complaints. Associated symptoms: Deny abdominal pain, chest pain, fever(s), nausea, orthopnea, palpitations or vomiting Review of Systems Const: Denies: fever(s), chills or fatigue Eyes: Denies: change in vision or eye discomfort ENMT: Denies: throat pain, odynophagia, nasal discharge or nasal congestion Card: Denies: chest pain, palpitations, edema, swelling of feet/ankles, dyspnea on exertion or orthopnea Resp: Reports: dyspnea; Denies: productive cough or non-productive cough GI: Denies: abdominal pain, nausea, vomiting, diarrhea, constipation or hematochezia : Denies: flank pain, difficulty urinating, dysuria or hematuria Musc: Denies: neck pain, back pain or extremity swelling Skin/Breast: Denies: rash or new lesions Neuro: Denies: headache(s), numbness in extremities or weakness in extremities PFS ED PFSH: Medical History Aortic stenosis Atrial fibrillation Bilateral renal masses CHF (congestive heart failure) Chronic use of steroids CVA (cerebral vascular accident) Diabetes Dyslipidemia Edema 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 Essential hypertension Gout Hx of [place] spotted fever Ischemic cardiomyopathy Left ventricular hypertrophy Obesity AJAY (obstructive sleep apnea) Pulmonary HTN Renal calculi Rheumatoid arthritis Thalassemia Surgical History H/O lithotripsy S/P TAVR (transcatheter aortic valve replacement) Family History Mother Stroke Father Myocardial infarction Other CAD (coronary artery disease) Chronic kidney disease (CKD) Diabetes Hypertension Social History Smoking and tobacco status: former smoker Alcohol intake: former Marital status: History of recent travel: No Physical Exam Const: COMMON NORMALS: no acute distress, patient oriented x3 and alert GENERAL APPEARANCE: cooperative and comfortable HENMT: COMMON NORMALS: normocephalic HEAD & SCALP: normocephalic MOUTH: Normal oral and palatal mucosa present THROAT: posterior oropharynx normal and uvula midline Neck/C-Spine: COMMON NORMALS: supple GENERAL: Yes normal visual inspection Resp: COMMON NORMALS: normal respiratory effort, No retractions, No use of accessory muscles and clear to auscultation bilaterally EFFORT & INSPECTION: Yes able to speak in complete sentences, No tachypneic, No respiratory distress and No labored AUSCULTATION: clear to auscultation bilaterally and diminished lung sounds on the left in the lower lung sneed Cardio: COMMON NORMALS: regular rate, S1 normal heart sound present, S2 normal heart sound present, No gallops present (Cardio), No clicks present (Cardio), No murmurs present (Cardio) and Peripheral pulses 2+ throughout RATE: regular rate RHYTHM: abnormal rhythm irregularly irregular HEART SOUNDS: S1 normal heart sound present and S2 normal heart sound present PERIPHERAL PULSES: Peripheral pulses 2+ throughout GI: COMMON NORMALS: Normal to inspection, nondistended, normoactive bowel sounds present, Soft to palpation, non-tender and no masses INSPECTION: Yes central obesity PALPATION: Yes Soft to palpation : COMMON NORMALS: Yes no CVA tenderness BLADDER/KIDNEY EXAM: Yes no CVA tenderness Back/Pelvis: COMMON NORMALS: no CVA tenderness Extremity: COMMON NORMALS: normal to inspection GENERAL: Yes edema (1+ pitting edema bilaterally lower legs) Neuro: COMMON NORMALS: patient oriented x3 and moves all extremities SENSORIUM/ORIENTATION: Yes alert Skin: GENERAL SKIN EXAM: dry skin Course Vital Signs: Vital signs: Vital Signs Temperature 97.9 F 10/12/20 00:33 Pulse Rate 76 10/12/20 00:33 Respiratory Rate 18 10/12/20 00:33 Blood Pressure 124/72 10/12/20 00:33 Pulse Oximetry 97 10/12/20 00:33 MDM - SOB/Dyspnea MDM Narrative: Medical decision making narrative: Patient is a 65-year-old male who comes to the ED with episodic shortness of breath. He was seen here in the ED on October 09 and October 10 for same complaint. Patient has a history of COPD, CHF and A. fib. Shortness of breath episode resolved before arriving to the ED. Patient's blood pressure 124/72, pulse 76, respirations 18, temp 97.9 and O2 sat 97% on room air. He is not having any chest pain denies any other complaints. CBC and CMP are unremarkable and no acute change compared to labs yesterday. BNP is 1606 and last BNP's were 1626 1698 respectively. EKG showed A. fib, 93 bpm, no ST segment elevation or depression seen. Chest x-ray showed no acute findings and no acute changes compared to chest x-ray from yesterday. Patient was discharged and told to continue taking Lasix as previously prescribed. Return to ED precautions given. Follow-up with PCP in 7 to 10 days. Patient understood and agreed with plan. Lab Data: Attestation: I reviewed the patient's lab results. Labs: Lab Results 10/11/20 10/11/20 10/11/20 Range/Units 23:00 23:00 23:00 WBC 9.3 (4.0-10.0) 10^3/ uL RBC 6.24 H (4.1-5.3) 10^6/u L Hgb 11.4 L (11.7-16.6) g/dL Hct 38.3 L (42.0-52.0) % MCV 61.4 L (80-94) fL MCH 18.3 L (28.0-34.0) pg MCHC 29.8 L (30.0-36.0) g/dL RDW 18.5 H (12.1-15.1) % Plt Count 233 (130-400) 10^3/c mm MPV TNP Neut % (Auto) 73.1 % Lymph % (Auto) 16.0 % [place] % (Auto) 7.3 % Eos % (Auto) 1.8 % Baso % (Auto) 0.8 % Neut # (Auto) 6.82 (1.8-7.7) 10^3/u L Lymph # (Auto) 1.5 (0.8-4.8) 10^3/u L [place] # (Auto) 0.7 (0.2-0.9) 10^3/u L Eos # (Auto) 0.2 (0.0-0.8) 10^3/u L Baso # (Auto) 0.1 (0.0-0.1) 10^3/u L Nucleated RBC % (a uto) 0 % Nucleated RBCs # 0.0 /100WBC Sodium 142 (136-145) mmol/L Potassium 3.4 L (3.5-5.1) mmol/L Chloride 102 (98-107) mmol/L Carbon Dioxide 31 H (22-29) mmol/L Anion Gap 12.4 (5-19) BUN 28 H (8-23) mg/dL Creatinine 0.9 (0.7-1.2) mg/dL GFR Calculation 84.2 L (90-130) mL/min Glucose 183 H (65-115) mg/dL Calculated Osmolal ity 304 H (285-295) mOsm/k g Calcium 9.3 (8.5-10.5) mg/dL Total Bilirubin 0.4 (0.15-1.2) mg/dL AST 19 (0-40) U/L ALT 24 (0-41) U/L Alkaline Phosphata se 62 (40-130) IU/L Troponin T Gen 5 n g/L 31 H (0-15) ng/L NT-Pro-B Natriuret Pep 1606 H (0-125) pg/mL Total Protein 5.3 L (6.6-8.7) g/dL Albumin 3.7 (3.5-5.2) g/dL Globulin 1.6 (1.3-4.6) g/dL Imaging Data^: CXR: Attestation: I personally reviewed and interpreted this imaging study as follows: My impression: No acute findings. Chest x-ray compared to previous image from October 10. No acute changes. EKG Data^: EKG 1: Attestation: I personally reviewed and interpreted this EKG as follows: EKG Interpretation Date: 10/11/20 Interpretation: A. fib, [address] segment elevation or depression seen. Discharge Plan Discharge Patient Disposition: Home Clinical Impression: Acute exacerbation of CHF (congestive heart failure) Qualifiers: Heart failure type: unspecified Qualified Code(s): I50.9 - Heart failure, unspecified Condition: Stable Prescriptions: No Action tamsulosin 0.4 mg capsule 0.4 mg PO DAILY RF: 0 citalopram [Celexa] 10 mg tablet 10 mg PO DAILY RF: 0 leflunomide 20 mg tablet 20 mg PO DAILY RF: 0 Hold Instructions: Resume on 10/13/20. Lantus U-100 Insulin 100 unit/mL solution See Rx Instructions .ROUTE .COMPLEX RF: 0 nitroglycerin [Nitrostat] 0.4 mg tablet, sublingual 0.4 mg SUBLINGUAL Q5M PRN (Reason: Chest Pain) RF: 0 lisinopril 2.5 mg tablet 2.5 mg PO DAILY RF: 0 prednisone 5 mg tablet 10 mg PO DAILY Qty: 60 RF: 3 allopurinol 100 mg tablet 100 mg PO DAILY Qty: 30 RF: 3 carvedilol 12.5 mg Tablet 6.25 mg PO BID RF: 0 potassium chloride 20 mEq Tablet Extended Release 20 meq PO DAILY RF: 0 atorvastatin 40 mg PO QPM RF: 0 pantoprazole [Protonix] 40 mg Tablet,Delayed Release (Dr/Ec) 40 mg PO DAILY RF: 0 Vitamin Plus Low Iron 27 mg iron- 1 mg tablet 1 tab PO DAILY RF: 0 ciprofloxacin HCl 500 mg Tablet 250 mg PO BID Qty: 8 RF: 0 furosemide 40 mg tablet 60 mg PO QAM Qty: 0 RF: 0 Jantoven 10 mg tablet 10 mg PO MOTUWETHFR RF: 0 Voltaren 1 % gel 2 gm TOPICAL QID PRN (Reason: Pain) RF: 0 Aspir-81 81 mg Tablet,Delayed Release (Dr/Ec) 81 mg PO DAILY RF: 0 Jantoven 7.5 mg tablet 7.5 mg PO SUSA RF: 0 amoxicillin 500 mg Capsule 500 mg PO BID RF: 0 diltiazem HCl 120 mg capsule,extended release 24hr 120 mg PO DAILY RF: 0 Discharge Orders: Discharge Order (Routine); Ordered 10/12/20 Ordered By: Adolph Clifford Referrals: Faustina Gonzalez NP [Primary Care Provider] - Discharge Diet: Low Salt Discharge Activity: Increase activity as tolerated Patient Instructions: Congestive Heart Failure Activity Restrictions/Additional Instructions: Follow-up with medical provider as directed. Follow-up with your PCP in 7 to 10 days. Continue taking home medications as prescribed. Return to the ER or your medical provider if condition worsens. Please read and understand discharge instructions. If any questions, please ask. Coding Level of Care Code ED Background Investigator for John Fwd Exam Comprehensive
[2020-10-11 22:17] VITALS: BP 141/103; PULSE 100; RESP 18; O2SAT 94
--- NOTE | 2020-10-11 22:46 | XR_ITS ---
WS: [id number] XR chest 1V portable [id number] REASON FOR EXAM: sob FINDINGS: The chest is unchanged to the examination of the previous day. Percutaneously placed aortic valve. Calcified coronary artery stents. Heart at the upper limits of no rmal. No active pulmonary parenchymal pleural abnormality. Bony thorax intact. XR/XR chest 1V portable [id number] IMPRESSION: No acute abnormality.
[2020-10-11 23:19] LABS: Eosinophils # 0.2 10^3/uL (0.0-0.8); Eosinophils % 1.8 %; Hemoglobin 11.4 g/dL (11.7-16.6); Mean Corpuscular Hemoglobin 18.3 pg (28.0-34.0)
[2020-10-11 23:23] LABS: Basophils # 0.1 10^3/uL (0.0-0.1); Basophils % 0.8 %; Hematocrit 38.3 % (42.0-52.0); Lymphocytes # 1.5 10^3/uL (0.8-4.8); Mean Corpuscular HGB Conc 29.8 g/dL (30.0-36.0); Mean Corpuscular Volume 61.4 fL (80-94); Monocytes # 0.7 10^3/uL (0.2-0.9); Monocytes % 7.3 %; Neutrophils # 6.82 10^3/uL (1.8-7.7); Neutrophils % 73.1 %; Nucleated Red Blood Cells % 0 %; Platelet Count 233 10^3/cmm (130-400); Red Blood Count 6.24 10^6/uL (4.1-5.3); Red Cell Distribution Width 18.5 % (12.1-15.1); White Blood Count 9.3 10^3/uL (4.0-10.0)
[2020-10-11 23:40] LABS: Troponin T (5th) Once 31 ng/L (0-15)
[2020-10-11 23:45] LABS: Alanine Aminotransferase 24 U/L (0-41); Albumin Level 3.7 g/dL (3.5-5.2); Alkaline Phosphatase 62 IU/L (40-130); Anion Gap 12.4 (5-19); Aspartate Amino Transferase 19 U/L (0-40); Blood Urea Nitrogen 28 mg/dL (8-23); Calcium 9.3 mg/dL (8.5-10.5); Carbon Dioxide 31 mmol/L (22-29); Chloride 102 mmol/L (98-107); Globulin 1.6 g/dL (1.3-4.6); Glomerular Filtration Rate 84.2 mL/min (90-130); Glucose 183 mg/dL (65-115); NT Pro B Type Natriuretic Pept 1606 pg/mL (0-125); Osmolality Calculated 304 mOsm/kg (285-295); Potassium 3.4 mmol/L (3.5-5.1); Sodium 142 mmol/L (136-145); Total Bilirubin 0.4 mg/dL (0.15-1.2); Total Protein 5.3 g/dL (6.6-8.7)
[2020-10-12 00:02] VITALS: BP 137/78; PULSE 78; RESP 16; O2SAT 96
[2020-10-12] MEDS: FUROsemide 40 mg Tablet 20 MG PO (00:07)
[2020-10-12 00:33] VITALS: BP 124/72; PULSE 76; RESP 18; TEMP 36.6; O2SAT 97
== END 2020-10-12 00:35 | disposition home or self-care (01) ==
PROVIDERS: Emergency Provider Physician Assistant; PCP Nurse Practitioner Family
DX: I11.0 Hypertensive heart disease with heart failure (principal); I50.9 Heart failure, unspecified; Z79.4 Long term (current) use of insulin; Z79.82 Long term (current) use of aspirin; I48.91 Unspecified atrial fibrillation; Z86.73 Personal history of transient ischemic attack (TIA), and cerebral infarction without residual deficits; E11.9 Type 2 diabetes mellitus without complications; E78.5 Hyperlipidemia, unspecified; Z87.891 Personal history of nicotine dependence
CPT/HCPCS: 12345; 71045; 80053; 83880; 84484; 85025; 93005; 99283

== ENCOUNTER 2020-10-14 13:24 | Emergency (ER) | payer MEDICARE, OTHER, SELFPAY ==
[2020-10-14 13:32] VITALS: BP 107/61; PULSE 71; RESP 18; TEMP 36.2; O2SAT 99; BMI 38.3
[2020-10-14 15:00] VITALS: BP 97/67; PULSE 84; RESP 19; O2SAT 97
--- NOTE | 2020-10-14 15:13 | XR_ITS ---
WS: [id number] XR chest 1V portable [id number] REASON FOR EXAM: dyspnea/cough FINDINGS: The chest remains unchanged compared to previous examinations 10/07/2020 through 10/11/2020. No defin ite acute pulmonary parenchymal or pleural abnormality is identified. XR/XR chest 1V portable [id number] IMPRESSION: Stable chest over several days with no definite acute abnormality identified.
--- NOTE | 2020-10-14 15:13 | ECG_ITS ---
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1955 Requested By: Raymon Fernandez Order Number: [id number] Morena MD: CATALINA MORRIS Measurements Intervals [place] Rate: 86 P: [place]: QRS: -18 QRSD: 81 T: 139 QT: 354 QTc: 424 Interpretive Statements ATRIAL FIBRILLATION VOLTAGE CRITERIA FOR LVH [MEETS CRITERIA IN ONE OF: R(aVL), S(V1), R(V5), R(V5/V6)+S(V1)] MODERATE T-WAVE ABNORMALITY, CONSIDER LATERAL ISCHEMIA [-0.1+ mV T WAVE IN I/aVL/V5/V6] Compared to ECG 10/11/2020 22:11:51 Possible ischemia now present T-wave abnormality still present Electronically Signed On 10-15-2020 15:22:40 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
[2020-10-14 15:30] VITALS: BP 124/85; PULSE 89; RESP 14; O2SAT 94
[2020-10-14 15:48] LABS: Alanine Aminotransferase 32 U/L (0-41); Albumin Level 3.6 g/dL (3.5-5.2); Alkaline Phosphatase 69 IU/L (40-130); Blood Urea Nitrogen 28 mg/dL (8-23); Calcium 9.4 mg/dL (8.5-10.5); Carbon Dioxide 31 mmol/L (22-29); Chloride 104 mmol/L (98-107); Globulin 2.2 g/dL (1.3-4.6); Glomerular Filtration Rate 74.5 mL/min (90-130); Glucose 167 mg/dL (65-115); Osmolality Calculated 305 mOsm/kg (285-295); Sodium 143 mmol/L (136-145); Total Bilirubin 0.6 mg/dL (0.15-1.2); Total Protein 5.8 g/dL (6.6-8.7)
[2020-10-14 15:51] LABS: Anion Gap 11.6 (5-19); Aspartate Amino Transferase 29 U/L (0-40); Potassium 3.6 mmol/L (3.5-5.1)
[2020-10-14 15:54] LABS: Basophils # 0.1 10^3/uL (0.0-0.1); Basophils % 0.8 %; Eosinophils # 0.2 10^3/uL (0.0-0.8); Eosinophils % 1.9 %; Hematocrit 40.7 % (42.0-52.0); Hemoglobin 12.1 g/dL (11.7-16.6); Lymphocytes # 1.4 10^3/uL (0.8-4.8); Lymphocytes % 12.1 %; Mean Corpuscular HGB Conc 29.7 g/dL (30.0-36.0); Mean Corpuscular Hemoglobin 18.4 pg (28.0-34.0); Mean Corpuscular Volume 61.9 fL (80-94); Monocytes # 0.8 10^3/uL (0.2-0.9); Monocytes % 6.6 %; Neutrophils # 8.95 10^3/uL (1.8-7.7); Neutrophils % 77.6 %; Nucleated Red Blood Cells % 0 %; Platelet Count 243 10^3/cmm (130-400); Red Blood Count 6.58 10^6/uL (4.1-5.3); Red Cell Distribution Width 18.8 % (12.1-15.1); White Blood Count 11.5 10^3/uL (4.0-10.0)
[2020-10-14 16:02] LABS: Troponin(5th) Baseline 51 ng/L (0-15)
[2020-10-14 16:18] LABS: Slide Review Slide Review Perform
--- NOTE | 2020-10-14 16:47 | W.ED.SOB ---
HPI - SOB/Dyspnea General: Chief Complaint: Shortness of Breath/Dyspnea Stated Complaint: sob Time Seen by Provider: 10/14/20 14:55 History of Present Illness: HPI Narrative: 65-year-old male comes in complaining of shortness of breath began this morning. He is find a new went to bed last night woke up this morning having difficulty. EMS was at his home he states they gave him some diuretics and he is better now. He is denying any chest pain he recently was swabbed for Covid but was told it was negative.'s been the emergency room twice in the last 7 days for similar complaints. At home his sats her as low as 89% however he is on a percent on room air at this time. MD elicited complaint: shortness of breath and cough Pertinent past history: congestive heart failure Onset (ago): month(s) Timing: intermittent and now resolved Severity: moderate Exacerbating factors: exertion Relieving factors: oxygen, rest and other (Diuretics) Associated symptoms: Reports orthopnea; Deny abdominal pain, chest congestion, chest pain, cough, diaphoresis, dizziness, extremity pain, fever(s), hemoptysis, lightheadedness, myalgias, nausea, palpitations, paresthesias, polydipsia, polyuria, rash, sense of impending doom or syncope Treatment prior to arrival: oxygen and diuretics Review of Systems Const: Denies: fever(s) or diaphoresis ENMT: Denies: throat pain, ear or mastoid pain, nasal discharge or nasal congestion Card: Reports: orthopnea; Denies: chest pain, palpitations, lightheadedness or syncope Resp: Denies: hemoptysis or chest congestion GI: Denies: abdominal pain or nausea : Denies: flank pain, dysuria, urinary frequency or urinary urgency Musc: Denies: extremity pain Skin/Breast: Denies: rash or pruritus Neuro: Denies: dizziness Endo: Denies: polyuria or polydipsia PFSH ED PFSH: Medical History Aortic stenosis Atrial fibrillation Bilateral renal masses CHF (congestive heart failure) Chronic use of steroids CVA (cerebral vascular accident) Diabetes Dyslipidemia Edema 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 Essential hypertension Gout Hx of [place] spotted fever Ischemic cardiomyopathy Left ventricular hypertrophy Obesity AJAY (obstructive sleep apnea) Pulmonary HTN Renal calculi Rheumatoid arthritis Thalassemia Surgical History H/O lithotripsy S/P TAVR (transcatheter aortic valve replacement) Family History Mother Stroke Father Myocardial infarction Other CAD (coronary artery disease) Chronic kidney disease (CKD) Diabetes Hypertension Social History Smoking and tobacco status: former smoker Alcohol intake: former Marital status: History of recent travel: No Physical Exam Const: COMMON NORMALS: no acute distress GENERAL APPEARANCE: cooperative and comfortable ORIENTATION/CONSCIOUSNESS: Yes awake, Yes oriented to person, Yes oriented to place and Yes oriented to time HENMT: COMMON NORMALS: normocephalic, atraumatic and hearing grossly normal bilaterally HEAD & SCALP: normocephalic and atraumatic Neck/C-Spine: COMMON NORMALS: no JVD Resp: COMMON NORMALS: normal respiratory effort, No retractions, No use of accessory muscles and clear to auscultation bilaterally AUSCULTATION: clear to auscultation bilaterally Cardio: COMMON NORMALS: no JVD, regular rate, regular rhythm and No murmurs present (Cardio) RATE: regular rate RHYTHM: regular rhythm GI: COMMON NORMALS: Soft to palpation and No hepatosplenomegaly present AUSCULTATION: Yes normoactive bowel sounds PALPATION: Yes Soft to palpation, No Tenderness to palpation present (GI), No Guarding due to palpation present (GI) and Yes No hepatosplenomegaly present Extremity: COMMON NORMALS: normal to inspection, capillary refill normal, no clubbing, cyanosis or edema, no calf tenderness and no pedal edema Neuro: SENSORIUM/ORIENTATION: Yes oriented to person, Yes oriented to place and Yes oriented to time Skin: COMMON NORMALS: no rashes or lesions noted GENERAL SKIN EXAM: no rashes or lesions noted Course Vital Signs: Vital signs: Vital Signs Temperature 97.2 F L 10/14/20 13:32 Pulse Rate 78 10/14/20 17:00 Respiratory Rate 18 10/14/20 17:00 Blood Pressure 118/80 10/14/20 17:00 Pulse Oximetry 95 10/14/20 17:00 MDM - SOB/Dyspnea MDM Narrative: Medical decision making narrative: Reviewed labs with the patient. He is actually doing arguably better he still has a low episodes where he has shortness of breath. Discussed with him his congestive heart failure is more managed and cured. Will switch him to 40 mg twice a day from the 60 mg once daily have him follow-up with cardiology next week. Lab Data: Labs: Lab Results 10/14/20 10/14/20 10/14/20 Range/Units 14:03 14:03 14:03 WBC 11.5 H (4.0-10.0) 10^3/ uL RBC 6.58 H (4.1-5.3) 10^6/u L Hgb 12.1 (11.7-16.6) g/dL Hct 40.7 L (42.0-52.0) % MCV 61.9 L (80-94) fL MCH 18.4 L (28.0-34.0) pg MCHC 29.7 L (30.0-36.0) g/dL RDW 18.8 H (12.1-15.1) % Plt Count 243 (130-400) 10^3/c mm MPV TNP Neut % (Auto) 77.6 % Lymph % (Auto) 12.1 % [place] % (Auto) 6.6 % Eos % (Auto) 1.9 % Baso % (Auto) 0.8 % Neut # (Auto) 8.95 H (1.8-7.7) 10^3/u L Lymph # (Auto) 1.4 (0.8-4.8) 10^3/u L [place] # (Auto) 0.8 (0.2-0.9) 10^3/u L Eos # (Auto) 0.2 (0.0-0.8) 10^3/u L Baso # (Auto) 0.1 (0.0-0.1) 10^3/u L Nucleated RBC % (a uto) 0 % Nucleated RBCs # 0.0 /100WBC Sodium 143 (136-145) mmol/L Potassium 3.6 (3.5-5.1) mmol/L Chloride 104 (98-107) mmol/L Carbon Dioxide 31 H (22-29) mmol/L Anion Gap 11.6 (5-19) BUN 28 H (8-23) mg/dL Creatinine 1.0 (0.7-1.2) mg/dL GFR Calculation 74.5 L (90-130) mL/min Glucose 167 H (65-115) mg/dL Calculated Osmolal ity 305 H (285-295) mOsm/k g Calcium 9.4 (8.5-10.5) mg/dL Total Bilirubin 0.6 (0.15-1.2) mg/dL AST 29 (0-40) U/L ALT 32 (0-41) U/L Alkaline Phosphata se 69 (40-130) IU/L Troponin T Baselin e 51 H (0-15) ng/L Troponin T 120 Min kvng (0-15) ng/L Delta Troponin T (0-10) ABS# NT-Pro-B Natriuret Pep (0-125) pg/mL Total Protein 5.8 L (6.6-8.7) g/dL Albumin 3.6 (3.5-5.2) g/dL Globulin 2.2 (1.3-4.6) g/dL 10/14/20 10/14/20 Range/Units 14:06 16:51 WBC (4.0-10.0) 10^3/ uL RBC (4.1-5.3) 10^6/u L Hgb (11.7-16.6) g/dL Hct (42.0-52.0) % MCV (80-94) fL MCH (28.0-34.0) pg MCHC (30.0-36.0) g/dL RDW (12.1-15.1) % Plt Count (130-400) 10^3/c mm MPV Neut % (Auto) % Lymph % (Auto) % [place] % (Auto) % Eos % (Auto) % Baso % (Auto) % Neut # (Auto) (1.8-7.7) 10^3/u L Lymph # (Auto) (0.8-4.8) 10^3/u L [place] # (Auto) (0.2-0.9) 10^3/u L Eos # (Auto) (0.0-0.8) 10^3/u L Baso # (Auto) (0.0-0.1) 10^3/u L Nucleated RBC % (a uto) % Nucleated RBCs # /100WBC Sodium (136-145) mmol/L Potassium (3.5-5.1) mmol/L Chloride (98-107) mmol/L Carbon Dioxide (22-29) mmol/L Anion Gap (5-19) BUN (8-23) mg/dL Creatinine (0.7-1.2) mg/dL GFR Calculation (90-130) mL/min Glucose (65-115) mg/dL Calculated Osmolal ity (285-295) mOsm/k g Calcium (8.5-10.5) mg/dL Total Bilirubin (0.15-1.2) mg/dL AST (0-40) U/L ALT (0-41) U/L Alkaline Phosphata se (40-130) IU/L Troponin T Baselin e (0-15) ng/L Troponin T 120 Min kvng 47.78 H (0-15) ng/L Delta Troponin T -3.22 L (0-10) ABS# NT-Pro-B Natriuret Pep 1027 H (0-125) pg/mL Total Protein (6.6-8.7) g/dL Albumin (3.5-5.2) g/dL Globulin (1.3-4.6) g/dL Discharge Plan Discharge Patient Disposition: Home Clinical Impression: Congestive heart failure Condition: Stable Prescriptions: Changed furosemide 40 mg tablet 40 mg PO BID Qty: 0 RF: 0 No Action tamsulosin 0.4 mg capsule 0.4 mg PO DAILY RF: 0 citalopram [Celexa] 10 mg tablet 10 mg PO DAILY RF: 0 leflunomide 20 mg tablet 20 mg PO DAILY RF: 0 Hold Instructions: Resume on 10/13/20. Lantus U-100 Insulin 100 unit/mL solution See Rx Instructions .ROUTE .COMPLEX RF: 0 nitroglycerin [Nitrostat] 0.4 mg tablet, sublingual 0.4 mg SUBLINGUAL Q5M PRN (Reason: Chest Pain) RF: 0 lisinopril 2.5 mg tablet 2.5 mg PO DAILY RF: 0 prednisone 5 mg tablet 10 mg PO DAILY Qty: 60 RF: 3 allopurinol 100 mg tablet 100 mg PO DAILY Qty: 30 RF: 3 carvedilol 12.5 mg Tablet 6.25 mg PO BID RF: 0 potassium chloride 20 mEq Tablet Extended Release 20 meq PO DAILY RF: 0 atorvastatin 40 mg PO QPM RF: 0 pantoprazole [Protonix] 40 mg Tablet,Delayed Release (Dr/Ec) 40 mg PO DAILY RF: 0 Vitamin Plus Low Iron 27 mg iron- 1 mg tablet 1 tab PO DAILY RF: 0 ciprofloxacin HCl 500 mg Tablet 250 mg PO BID Qty: 8 RF: 0 warfarin [Jantoven] 10 mg tablet 10 mg PO MOTUWETHFR RF: 0 diclofenac sodium [Voltaren] 1 % gel 2 gm TOPICAL QID PRN (Reason: Pain) RF: 0 aspirin [Aspir-81] 81 mg Tablet,Delayed Release (Dr/Ec) 81 mg PO DAILY RF: 0 warfarin [Jantoven] 7.5 mg tablet 7.5 mg PO SUSA RF: 0 amoxicillin 500 mg Capsule 500 mg PO BID RF: 0 diltiazem HCl 120 mg capsule,extended release 24hr 120 mg PO DAILY RF: 0 Discharge Orders: Discharge Order (Routine); Ordered 10/14/20 Ordered By: Raymon Boyce Referrals: Faustina Gonzalez NP [Primary Care Provider] - Discharge Diet: Usual diet Discharge Activity: Limit activity as instructed Activity Restrictions/Additional Instructions: We will have you change your Lasix to 40 mg twice a day in the morning and midafternoon. Follow-up with your manager regional sales early next week. Coding Level of Care Code ED Canine Service Teacher for John Fwd Exam Comprehensive
[2020-10-14] MEDS: FUROsemide 10 mg/mL SDV 4mL 40 MG IVP (16:58)
[2020-10-14 17:00] VITALS: BP 118/80; PULSE 78; RESP 18; O2SAT 95
[2020-10-14 17:03] LABS: NT Pro B Type Natriuretic Pept 1027 pg/mL (0-125)
--- NOTE | 2020-10-14 17:13 | ECG_ITS ---
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1955 Requested By: Raymon Fernandez Order Number: [id number] Reading MD: CATALINA MORRIS Measurements Intervals [place] Rate: 89 P: [place]: QRS: -33 QRSD: 93 T: 153 QT: 390 QTc: 476 Interpretive Statements ATRIAL FIBRILLATION LEFT AXIS DEVIATION [QRS AXIS < -30] MODERATE VOLTAGE CRITERIA FOR LVH, CONSIDER NORMAL VARIANT [MEETS CRITERIA IN ONE OF: R(aVL), S(V1), R(V5), R(V5/V6)+S(V1)] ST DEVIATION AND MODERATE T-WAVE ABNORMALITY, CONSIDER LATERAL ISCHEMIA [-0.1+ mV T WAVE IN I/aVL/V5/V6] Compared to ECG 10/14/2020 13:41:54 Left-axis deviation now present T-wave abnormality still present Possible ischemia still present Electronically Signed On 10-15-2020 15:30:48 RECRUITER SPECIALIST by CATALINA MORRIS [email or web address]
[2020-10-14 17:25] LABS: Troponin 5 2HR 47.78 ng/L (0-15)
[2020-10-14 17:27] LABS: Troponin 5 2HR Delta -3.22 ABS# (0-10)
[2020-10-14 18:06] VITALS: O2SAT 91; O2SAT 94
[2020-10-14 18:58] VITALS: BP 124/83; PULSE 96; RESP 16; O2SAT 96
--- NOTE | 2020-10-19 13:47 | DCPLANNER ---
manager storage had message to schedule a follow up appointment for patient with [facility]. manager storage called [facility], spoke with Destini, gave clinic patients information. A follow up appointment was scheduled for Monday, October 30, 2020 at 10:30 with . manager storage called patient to inform patient of the scheduled appointment. manager storage was unable to speak with patient at this time, a voice mail was left for patient to return family caseworker phone call.
--- NOTE | 2020-10-20 14:26 | DCPLANNER ---
assistant manager bilingual called patient again, was able to speak with patients and gave her the appointment information.
--- NOTE | 2020-10-30 15:11 | DCPLANNER ---
Patient had an appointment scheduled for 10.30.20 with [facility] - patient did attend appointment.
== END 2020-10-14 18:59 | disposition home or self-care (01) ==
PROVIDERS: Emergency Provider Family Medicine; PCP Nurse Practitioner Family
DX: I11.0 Hypertensive heart disease with heart failure (principal); I50.9 Heart failure, unspecified; Z79.01 Long term (current) use of anticoagulants; Z79.82 Long term (current) use of aspirin; Z79.4 Long term (current) use of insulin; I48.91 Unspecified atrial fibrillation; Z86.73 Personal history of transient ischemic attack (TIA), and cerebral infarction without residual deficits; E11.9 Type 2 diabetes mellitus without complications; E78.5 Hyperlipidemia, unspecified; Z87.891 Personal history of nicotine dependence
CPT/HCPCS: 12345; 71045; 80053; 83880; 84484; 85025; 93005; 96374; 99282; 99284; J1940

== ENCOUNTER 2020-10-20 06:00 | Outpatient (RCR) | payer MEDICARE, OTHER, SELFPAY | END 2020-11-19 23:59 | disposition home or self-care (01) | LOC: MST 06:00 | PROVIDERS: PCP Nurse Practitioner Family; Referring Provider Psychiatry & Neurology Neurology; Visit Provider Psychiatry & Neurology Neurology | DX: I69.30 Unspecified sequelae of cerebral infarction (principal); F03.90 Unspecified dementia, unspecified severity, without behavioral disturbance, psychotic disturbance, mood disturbance, and anxiety | CPT/HCPCS: 92507; 92526 ==

== ENCOUNTER → 2020-10-30 12:10 | Outpatient (BNVA) | payer MEDICARE, OTHER, SELFPAY | PROVIDERS: PCP Nurse Practitioner Family; Visit Provider Internal Medicine Cardiovascular Disease | DX: I50.9 Heart failure, unspecified (principal) | CPT/HCPCS: 80048; 83735; 83880 ==

== ENCOUNTER → 2020-11-11 12:46 | Outpatient (BNVA) | payer MEDICARE, OTHER, SELFPAY | PROVIDERS: PCP Nurse Practitioner Family; Visit Provider Family Medicine | DX: Z20.828 Contact with and (suspected) exposure to other viral communicable diseases (principal) | CPT/HCPCS: 87635 ==

== ENCOUNTER 2020-11-16 11:03 | Outpatient (CLI) | payer MEDICARE, OTHER, SELFPAY ==
--- NOTE | 2020-11-16 10:27 | PFTS_ITS ---
Date of Study:11/16/20 Date of Dictation: MECHANICS: Forced vital capacity (FVC) is . Forced expiratory volume in one second (FEV1) is . FEV1/FVC is . FLOW VOLUME LOOP: . LUNG VOLUMES: Total lung capacity (TLC) is . Residual volume (RV) is . DIFFUSING CAPACITY FOR CARBON MONOXIDE: . INTERPRETATION: The pulmonary function tests are . mechanics and lung volumes. Gas exchange (DLCO) is . MTDD
--- NOTE | 2020-11-16 14:11 | PFTS_ITS ---
Date of Study:11/16/20 Date of Dictation: MECHANICS: Forced vital capacity (FVC) is reduced. Forced expiratory volume in one second (FEV1) is reduced. FEV1/FVC is normal. FLOW VOLUME LOOP: Narrow. LUNG VOLUMES: Total lung capacity (TLC) is reduced. Residual volume (RV) is normal. DIFFUSING CAPACITY FOR CARBON MONOXIDE: Not measured. INTERPRETATION: The spirometry is consistent with moderate restriction. Lung volumes are consistent with restrictive lung disease. The combination of restriction on spirometry with reduced inspiratory capacity and expiratory reserve volume in the setting of preserved residual volume is likely consistent with neuromuscular weakness as the cause of restrictive lung disease. Please correlate clinically. MTDD
== END 2020-11-16 11:04 | disposition home or self-care (01) ==
LOC: RT 11:04
PROVIDERS: PCP Nurse Practitioner Family; Visit Provider Internal Medicine Critical Care Medicine
DX: R06.02 Shortness of breath (principal)
CPT/HCPCS: 94010; 94726; J7611

== ENCOUNTER 2020-11-20 06:00 | Outpatient (RCR) | payer MEDICARE, OTHER, SELFPAY | END 2020-12-20 23:59 | disposition home or self-care (01) | LOC: MST 06:00 | PROVIDERS: PCP Nurse Practitioner Family; Referring Provider Psychiatry & Neurology Neurology; Visit Provider Psychiatry & Neurology Neurology | DX: I69.30 Unspecified sequelae of cerebral infarction (principal); I69.320 Aphasia following cerebral infarction; I69.321 Dysphasia following cerebral infarction; R41.89 Other symptoms and signs involving cognitive functions and awareness | CPT/HCPCS: 92507; 92526 ==

== ENCOUNTER 2020-12-21 06:00 | Outpatient (RCR) | payer MEDICARE, OTHER, SELFPAY | END 2021-01-17 23:59 | disposition home or self-care (01) | LOC: MST 06:00 | PROVIDERS: PCP Nurse Practitioner Family; Referring Provider Psychiatry & Neurology Neurology; Visit Provider Psychiatry & Neurology Neurology | DX: I69.320 Aphasia following cerebral infarction (principal); F03.90 Unspecified dementia, unspecified severity, without behavioral disturbance, psychotic disturbance, mood disturbance, and anxiety | CPT/HCPCS: 92507; 92526 ==

== ENCOUNTER 2021-01-18 06:00 | Outpatient (RCR) | payer MEDICARE, OTHER, SELFPAY | END 2021-02-17 23:59 | disposition home or self-care (01) | LOC: MST 06:00 | PROVIDERS: PCP Nurse Practitioner Family; Referring Provider Psychiatry & Neurology Neurology; Visit Provider Psychiatry & Neurology Neurology | DX: I69.30 Unspecified sequelae of cerebral infarction (principal); R41.89 Other symptoms and signs involving cognitive functions and awareness | CPT/HCPCS: 92507 ==

== ENCOUNTER 2021-01-20 06:00 | Outpatient (RCR) | payer MEDICARE, OTHER, SELFPAY | END 2021-02-17 23:59 | disposition home or self-care (01) | LOC: MPT 06:00 | PROVIDERS: PCP Nurse Practitioner Family; Referring Provider Nurse Practitioner Family; Visit Provider Nurse Practitioner Family | DX: R26.81 Unsteadiness on feet (principal) | CPT/HCPCS: 97110; 97116; 97162 ==

== ENCOUNTER 2021-01-20 14:22 | Emergency (ER) | payer MEDICARE, OTHER, SELFPAY ==
[2021-01-20 14:29] VITALS: BP 125/90; PULSE 72; RESP 16; TEMP 36.3; O2SAT 96; BMI 38.3
--- NOTE | 2021-01-20 14:33 | XR_ITS ---
WS: [id number] Portable AP upright chest, 01/20/2021 Clinical Data: chest pain Comparison: Portable chest, 10/14/2020. Findings: No nodules, masses or effusions are seen. The heart is enlarged. There is an artificial hea rt valve. The pulmonary vascularity is not increased. No pneumonia or pneumothorax is seen. The aorti c arch and descending aorta are minimally tortuous XR/XR chest 1V portable [id number] Impression: Atherosclerosis and cardiomegaly.
--- NOTE | 2021-01-20 14:33 | ECG_ITS ---
[facility] Test Date: 2021-01-20 Pat Name: Ry Loyd Department: Room: Gender: Male Regional Controller: : 1955 Requested By: Lauren Wilson Order Number: [id number] Morena MD: Layla Cazares M.D. Measurements Intervals [place] Rate: 67 P: [place]: QRS: -33 QRSD: 98 T: 106 QT: 382 QTc: 404 Interpretive Statements ATRIAL FIBRILLATION LEFT AXIS DEVIATION [QRS AXIS < -30] MODERATE VOLTAGE CRITERIA FOR LVH, CONSIDER NORMAL VARIANT [MEETS CRITERIA IN ONE OF: R(aVL), S(V1), R(V5), R(V5/V6)+S(V1)] NONSPECIFIC T-WAVE ABNORMALITY Compared to ECG 10/14/2020 17:20:01 Possible ischemia no longer present T-wave abnormality still present Electronically Signed On 01-20-2021 20:56:36 GEOTHERMAL POWERPLANT MECHANIC HELPER by Layla Cazares M.D. [id number]
--- NOTE | 2021-01-20 15:28 | W.ED.SOB ---
HPI - SOB/Dyspnea General: Chief Complaint: Shortness of Breath/Dyspnea Stated Complaint: SOB, IRREG PULSE Time Seen by Provider: 01/20/21 14:43 Source: patient and family () Mode of arrival: ambulatory Limitations: no limitations History of Present Illness: HPI Narrative: The patient is a 65-year-old male return to the emergency department to be evaluated by his . He went to the clinic in [place] for physical therapy and while he was there he had an episode of shortness of breath and when he was evaluated he apparently had an irregular heartbeat so he was asked to come to the emergency department for evaluation. The states that the patient has a history of anxiety and has had a few episodes of panic attack in the last 2 to 3 days. Denies any chest pain, fever, contact with anyone with the coronavirus. He denies dizziness. MD elicited complaint: shortness of breath Pertinent past history: congestive heart failure Context: occurred during exertion Timing: now resolved Severity: moderate Exacerbating factors: exertion Relieving factors: rest Known history of: congestive heart failure and other Associated symptoms: Deny abdominal pain, chest congestion, chest pain, cough, diaphoresis, dizziness, extremity pain, fever(s), hemoptysis, lightheadedness, myalgias, nausea, orthopnea, palpitations, paresthesias, polydipsia, polyuria, rash, sense of impending doom, syncope or vomiting Treatment prior to arrival: none Review of Systems General: Reports: 10 or more systems reviewed and unremarkable except in HPI and below Const: Denies: fever(s) or diaphoresis Eyes: Denies: change in vision or blurry vision ENMT: Denies: throat pain, enlarged tonsils, odynophagia, hoarseness, mouth pain or swelling of lips/tongue Card: Denies: chest pain, palpitations, lightheadedness, syncope or orthopnea Resp: Denies: hemoptysis or chest congestion GI: Denies: abdominal pain, nausea or vomiting : Denies: flank pain, dysuria, urinary frequency, urinary urgency or urinary hesitancy Musc: Denies: extremity pain Skin/Breast: Denies: rash, pruritus or erythema Neuro: Denies: dizziness Endo: Denies: polyuria or polydipsia PFS ED PFSH: Medical History Aortic stenosis Atrial fibrillation Bilateral renal masses CHF (congestive heart failure) Chronic use of steroids CVA (cerebral vascular accident) Diabetes Dyslipidemia Edema 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 Essential hypertension Gout Hx of [place] spotted fever Ischemic cardiomyopathy Left ventricular hypertrophy Obesity AJAY (obstructive sleep apnea) Pulmonary HTN Renal calculi Rheumatoid arthritis Thalassemia Surgical History H/O lithotripsy S/P TAVR (transcatheter aortic valve replacement) Family History Mother Stroke Father Myocardial infarction Other CAD (coronary artery disease) Chronic kidney disease (CKD) Diabetes Hypertension Social History Smoking and tobacco status: former smoker Quit status (tobacco): has quit using tobacco Year quit tobacco: 2020 - Chewing Tobacco Former quit date comment: Hx of 1/2 can x 50 Years Second hand smoke exposure: No Smoking risk assessment/counseling performed?: No Alcohol intake: former Lives independently: Yes Household members: spouse Marital status: Current occupational status: retired and disabled History of recent travel: No Current gender identity: Male Physical Exam Const: COMMON NORMALS: no acute distress, average body habitus, patient oriented x3, no limitations, healthy appearing, alert and well nourished HENMT: COMMON NORMALS: normocephalic, atraumatic and moist oral mucous membranes HEAD & SCALP: normocephalic and atraumatic Neck/C-Spine: COMMON NORMALS: no meningeal signs and no JVD Resp: COMMON NORMALS: normal respiratory effort, No retractions, No use of accessory muscles, clear to auscultation bilaterally and percussion normal AUSCULTATION: clear to auscultation bilaterally PERCUSSION: percussion normal Cardio: COMMON NORMALS: no JVD, regular rate, regular rhythm, S1 normal heart sound present, S2 normal heart sound present, No gallops present (Cardio), No clicks present (Cardio), No murmurs present (Cardio), No rub (Cardio) and Peripheral pulses 2+ throughout RATE: regular rate RHYTHM: regular rhythm HEART SOUNDS: S1 normal heart sound present and S2 normal heart sound present PERIPHERAL PULSES: Peripheral pulses 2+ throughout GI: COMMON NORMALS: Normal to inspection, nondistended, normoactive bowel sounds present, Soft to palpation, non-tender, No hepatosplenomegaly present, no masses and no bruits PALPATION: Yes Soft to palpation and Yes No hepatosplenomegaly present Extremity: COMMON NORMALS: normal to inspection, full ROM, capillary refill normal, no calf tenderness and no pedal edema Neuro: COMMON NORMALS: patient oriented x3 SENSORIUM/ORIENTATION: Yes alert MENINGEAL SIGNS: Yes no meningeal signs Skin: COMMON NORMALS: no rashes or lesions noted, no wounds, turgor normal, no jaundice, no petechiae and no mottling GENERAL SKIN EXAM: no rashes or lesions noted and turgor normal Course Reevaluation(s): Reevaluation #1: Discussed his lab and imaging findings with the patient and his . Explained that his 2-hour delta troponin was flat. Explained that he has masses on both kidneys, the says that they know about it and they are following with the urologist for this. He is having the masses monitored. Also explained that he has a supratherapeutic INR and is to hold off on his warfarin for 2 days. He also will need an INR done after that. He is to follow-up with his primary care provider for these on orders. Voiced understanding and are in agreement with the plan Time: 20:03 Vital Signs: Vital signs: Vital Signs Temperature 97.3 F L 01/20/21 14:29 Pulse Rate 81 01/20/21 20:25 Respiratory Rate 16 01/20/21 20:25 Blood Pressure 144/90 01/20/21 20:25 Pulse Oximetry 97 01/20/21 20:25 MDM - SOB/Dyspnea MDM Narrative: Medical decision making narrative: 65-year-old male who presents to the emergency department after a subjective feeling of shortness of breath during physical therapy today. He also had concerns that he may have been in A. fib although he has a history of A. fib. Evaluation in the emergency department was unremarkable for acute illness or cause for his symptoms. He does have a supratherapeutic INR and bilateral kidney masses. The patient is aware of the kidney masses and he is following with a urologist for this. He agrees to hold his warfarin for 2 days and follow-up with his primary care provider after. He also has some gallstones on CT scan but no signs of cholecystitis or other complications. Medical Records: Attestation: I reviewed the patient's medical records. Lab Data: Attestation: I reviewed the patient's lab results. Labs: Lab Results 01/20/21 01/20/21 01/20/21 Range/Units 14:35 14:35 14:35 WBC 10.1 H (4.0-10.0) 10^3/ uL RBC 6.74 H (4.1-5.3) 10^6/u L Hgb 12.2 (11.7-16.6) g/dL Hct 41.0 L (42.0-52.0) % MCV 60.8 L (80-94) fL MCH 18.1 L (28.0-34.0) pg MCHC 29.8 L (30.0-36.0) g/dL RDW 20.0 H (12.1-15.1) % Plt Count 215 (130-400) 10^3/c mm MPV Not Reportable Neut % (Auto) 80.2 % Lymph % (Auto) 11.2 % [place] % (Auto) 6.5 % Eos % (Auto) 0.8 % Baso % (Auto) 0.5 % Neut # (Auto) 8.13 H (1.8-7.7) 10^3/u L Lymph # (Auto) 1.1 (0.8-4.8) 10^3/u L [place] # (Auto) 0.7 (0.2-0.9) 10^3/u L Eos # (Auto) 0.1 (0.0-0.8) 10^3/u L Baso # (Auto) 0.1 (0.0-0.1) 10^3/u L Nucleated RBC % (a uto) 0 % Nucleated RBCs # 0.0 /100WBC PT 48.70 H (12.1-14.9) SECO NDS INR 5.04 H* (0.8-1.2) D-Dimer 3.81 H (0-0.59) ug/mIFE U Sodium 141 (136-145) mmol/L Potassium 4.2 (3.5-5.1) mmol/L Chloride 105 (98-107) mmol/L Carbon Dioxide 25 (22-29) mmol/L Anion Gap 15.2 (5-19) BUN 28 H (8-23) mg/dL Creatinine 0.9 (0.7-1.2) mg/dL GFR Calculation 84.2 L (90-130) mL/min Glucose 199 H (65-115) mg/dL Calculated Osmolal ity 303 H (285-295) mOsm/k g Calcium 9.0 (8.5-10.5) mg/dL Total Bilirubin 0.6 (0.15-1.2) mg/dL AST 18 (0-40) U/L ALT 29 (0-41) U/L Alkaline Phosphata se 69 (40-130) IU/L Troponin T Baselin e (0-15) ng/L Troponin T 120 Min kvng Delta Troponin T NT-Pro-B Natriuret Pep 685 H (0-125) pg/mL Total Protein 5.6 L (6.6-8.7) g/dL Albumin 3.7 (3.5-5.2) g/dL Globulin 1.9 (1.3-4.6) g/dL 01/20/21 01/20/21 01/20/21 Range/Units 14:35 17:20 18:45 WBC (4.0-10.0) 10^3/ uL RBC (4.1-5.3) 10^6/u L Hgb (11.7-16.6) g/dL Hct (42.0-52.0) % MCV (80-94) fL MCH (28.0-34.0) pg MCHC (30.0-36.0) g/dL RDW (12.1-15.1) % Plt Count (130-400) 10^3/c mm MPV Neut % (Auto) % Lymph % (Auto) % [place] % (Auto) % Eos % (Auto) % Baso % (Auto) % Neut # (Auto) (1.8-7.7) 10^3/u L Lymph # (Auto) (0.8-4.8) 10^3/u L [place] # (Auto) (0.2-0.9) 10^3/u L Eos # (Auto) (0.0-0.8) 10^3/u L Baso # (Auto) (0.0-0.1) 10^3/u L Nucleated RBC % (a uto) % Nucleated RBCs # /100WBC PT (12.1-14.9) SECO NDS INR (0.8-1.2) D-Dimer (0-0.59) ug/mIFE U Sodium (136-145) mmol/L Potassium (3.5-5.1) mmol/L Chloride (98-107) mmol/L Carbon Dioxide (22-29) mmol/L Anion Gap (5-19) BUN (8-23) mg/dL Creatinine (0.7-1.2) mg/dL GFR Calculation (90-130) mL/min Glucose (65-115) mg/dL Calculated Osmolal ity (285-295) mOsm/k g Calcium (8.5-10.5) mg/dL Total Bilirubin (0.15-1.2) mg/dL AST (0-40) U/L ALT (0-41) U/L Alkaline Phosphata se (40-130) IU/L Troponin T Baselin e 19 H (0-15) ng/L Troponin T 120 Min kvng Cancelled 19.58 H Delta Troponin T Cancelled NT-Pro-B Natriuret Pep (0-125) pg/mL Total Protein (6.6-8.7) g/dL Albumin (3.5-5.2) g/dL Globulin (1.3-4.6) g/dL Imaging Data^: CTA Chest: Attestation: I personally reviewed and interpreted this imaging study as follows: Radiologist's impression: [address] [address] [address] Scan Report Signed Patient: Ry Loydnit #: [id number] : 3Acct#:[id number] Age/Sex: 65 / MADM Date: 01/20/21 Loc: ERRoom/Bed: Attending Dr: Ordering Provider/Ordering MD: Caryn Nelson MD, [facility] Date of Service: 01/20/21 Procedure(s): CT angio chest PE protcl [id number] Accession Number(s): [id number] Report Number: [id number] PROCEDURE INFORMATION: Exam: CT Angiography Chest With Contrast Exam date and time: 01/20/2021 4:50 PM Age: 65 years old Clinical indication: Dyspnea; Prior surgery; Surgery date: 6+ months; Surgery type: Valve; Additional info: SOB TECHNIQUE: Imaging protocol: Computed tomographic angiography of the chest with contrast. 3D rendering (Not supervised by radiologist): MIP and/or 3D reconstructed images were created by the technologist. Radiation optimization: All CT scans at this facility use at least one of these dose optimization techniques: automated exposure control; mA and/or kV adjustment per patient size (includes targeted exams where dose is matched to clinical indication); or iterative reconstruction. Contrast material: VISI; Contrast volume: 95 ml; Contrast route: INTRAVENOUS (IV); COMPARISON: CT chest wo [facility] [id number] 07/21/2020 4:31 PM RADIATION DOSE METRICS: Total DLP (mGy-cm): 620.33 FINDINGS: Pulmonary arteries: No pulmonary embolus or aortic dissection. Aorta: Calcification of the abdominal aorta and/or iliac arteries consistent with atherosclerotic vessel disease. Great vessels off aortic arch: Aberrant origin of the right subclavian artery which is usually not associated with other congenital heart disease. This is essentially a normal variant. Lungs: Unremarkable. No consolidation. No masses. Pleural spaces: Unremarkable. No pneumothorax. No pleural effusion. Heart: Severe calcified coronary artery disease. Endovascular aortic valve replacement. Lymph nodes: Calcified left hilar nodes and/or mediastinal nodes and/or lung granulomas consistent with old granulomatous disease. Gallbladder and bile ducts: Multiple gallstones within the gallbladder neck. Spleen: Calcified splenic granulomas. Kidneys and ureters: 3.5 cm exophytic mass midpole left kidney measuring 32 Hounsfield units consistent with renal cell carcinoma versus hemorrhagic cyst. 4.8 cm complex exophytic lesion arising from the upper pole right kidney measuring 20 Hounsfield units consistent with complex cyst versus neoplasm. Bones/joints: Unremarkable. No acute fracture. Soft tissues: Bilateral gynecomastia. CT/CT angio chest PE protcl [id number] IMPRESSION: 1. Severe calcified coronary artery disease. 2. Endovascular aortic valve replacement. 3. Aberrant origin of the right subclavian artery which is usually not associated with other congenital heart disease. This is essentially a normal variant. 4. No pulmonary embolus or aortic dissection. 5. Multiple gallstones within the gallbladder neck. 6. 3.5 cm exophytic mass midpole left kidney measuring 32 Hounsfield units consistent with renal cell carcinoma versus hemorrhagic cyst. 7. 4.8 cm complex exophytic lesion arising from the upper pole right kidney measuring 20 Hounsfield units consistent with complex cyst versus neoplasm. COMMENTS: Consistent with the [employer]'s Incidental Findings Committee white paper (J Am Frances Radiol 2018): Any incidental renal lesion less than 1 cm or classified as too small to characterize, or any incidental cystic renal lesion characterized as simple-appearing, is likely benign. No follow-up imaging is recommended for these lesions per consensus recommendations based on imaging criteria. Radiation Dose CTDIVOL = (mGy): DLP = 620.33 (mGy-cm) Dictated By:Gonzalo Felipe MD Signed By:Gonzalo Felipe MDSigned Date/Time:01/20/211751 DD/ 50 CXR: Attestation: I personally reviewed and interpreted this imaging study as follows: Radiologist's impression: [address] [address] XRay Report Signed Patient: Ry Loyd #: [id number] : 1955cct#:[id number] Age/Sex: 65 / MADM Date: 01/20/21 Loc: [facility]/Bed: Attending Dr: Ordering Provider/Ordering MD: Lauren Wilson Date of Service: 01/20/21 Procedure(s): XR chest 1V portable [id number] Accession Number(s): [id number] Report Number: [id number] WS: [id number] Portable AP upright chest, 01/20/2021 Clinical Data: chest pain Comparison: Portable chest, 10/14/2020. Findings: No nodules, masses or effusions are seen. The heart is enlarged. There is an artificial heart valve. The pulmonary vascularity is not increased. No pneumonia or pneumothorax is seen. The aortic arch and descending aorta are minimally tortuous XR/XR chest 1V portable [id number] Impression: Atherosclerosis and cardiomegaly. Dictated By:Hoda Kauffman MD Signed By:Hoda Kauffman MDSigned Date/Time:01/20/211512 DD/ 10 EKG Data^: EKG 1: Attestation: I personally reviewed and interpreted this EKG as follows: EKG Interpretation Date: 01/20/21 EKG interpretation time: 15:25 Prior EKG tracings: not available for review Interpretation: Atrial fibrillation. Heart rate 6 7 bpm. Leg axis deviation. No ST changes EKG 2: Attestation: I personally reviewed and interpreted this EKG as follows: EKG Interpretation Date: 01/20/21 EKG interpretation time: 16:47 Prior EKG tracings: available for review Interpretation: Atrial fibrillation. Heart rate 67 bpm. Left axis deviation. No ST changes Discharge Plan Discharge Patient Disposition: Home Clinical Impression: Breath shortness, Supratherapeutic international normalized ratio (INR), Bilateral kidney masses Gall stone Qualifiers: Cholecystitis presence: without cholecystitis Biliary obstruction: without biliary obstruction Qualified Code(s): K80.20 - Calculus of gallbladder without cholecystitis without obstruction Condition: Stable Prescriptions: Continued tamsulosin 0.4 mg capsule 0.4 mg PO DAILY@30 RF: 0 citalopram [Celexa] 10 mg tablet 10 mg PO DAILY@30 RF: 0 leflunomide 20 mg tablet 20 mg PO DAILY@30 RF: 0 Hold Instructions: Resume on 10/13/20. Lantus U-100 Insulin 100 unit/mL solution See Rx Instructions .ROUTE .COMPLEX RF: 0 nitroglycerin [Nitrostat] 0.4 mg tablet, sublingual 0.4 mg SUBLINGUAL Q5M PRN (Reason: Chest Pain) RF: 0 lisinopril 2.5 mg tablet 2.5 mg PO DAILY@0630 RF: 0 hydroxyzine HCl 25 mg tablet 25 mg PO DAILY@1900 RF: 0 furosemide 40 mg tablet 40 mg PO DAILY@30 RF: 0 carvedilol 6.25 mg tablet See Rx Instructions .ROUTE .COMPLEX RF: 0 potassium chloride 20 mEq Tablet Extended Release 20 meq PO DAILY@0630 RF: 0 atorvastatin 40 mg PO DAILY@1900 RF: 0 pantoprazole [Protonix] 40 mg Tablet,Delayed Release (Dr/Ec) 40 mg PO DAILY@0630 RF: 0 Vitamin Plus Low Iron 27 mg iron- 1 mg tablet 1 tab PO DAILY@0630 RF: 0 warfarin [Jantoven] 10 mg tablet See Rx Instructions .ROUTE .COMPLEX RF: 0 aspirin 81 mg Tablet,Delayed Release (Dr/Ec) 81 mg PO DAILY@0630 RF: 0 warfarin [Jantoven] 7.5 mg tablet 7.5 mg PO DAILY@0630 RF: 0 amoxicillin 500 mg capsule 500 mg PO BID@0630,1900 RF: 0 prednisone 5 mg tablet 5 mg PO DAILY@0630 RF: 0 prednisone 2.5 mg tablet 5 mg PO DAILY@0630 RF: 0 diltiazem HCl 120 mg capsule,extended release 24hr 120 mg PO DAILY@0630 RF: 0 Discharge Orders: Discharge ED (Routine); Ordered 01/20/21 Ordered By: Caryn Nelson Referrals: Faustina Gonzalez NP [Primary Care Provider] - 1-3 days Discharge Diet: Usual diet Discharge Activity: Increase activity as tolerated Patient Instructions: Warfarin (By mouth), Dyspnea (ED) Activity Restrictions/Additional Instructions: Return for any new or worsening symptoms. Follow-up with your primary care provider within 3 days. Do not take your warfarin for the next 2 days and have your INR checked thereafter. Have your doctor evaluate you after your INR has resulted. Follow-up with Dr. Berkowitz as you have been doing for the kidney mass. Continue your other home medications. Coding Level of Care Code ED Corporate Security Officer for John Jade Exam Comprehensive
--- NOTE | 2021-01-20 15:37 | PC.NURSE ---
EKG done at 1527 and shown to ER doctor
[2021-01-20 15:39] VITALS: BP 115/67; PULSE 75; RESP 17; O2SAT 94
[2021-01-20 15:43] LABS: Basophils # 0.1 10^3/uL (0.0-0.1); Basophils % 0.5 %; Eosinophils # 0.1 10^3/uL (0.0-0.8); Eosinophils % 0.8 %; Hemoglobin 12.2 g/dL (11.7-16.6); Lymphocytes # 1.1 10^3/uL (0.8-4.8); Lymphocytes % 11.2 %; Mean Corpuscular HGB Conc 29.8 g/dL (30.0-36.0); Mean Corpuscular Hemoglobin 18.1 pg (28.0-34.0); Mean Corpuscular Volume 60.8 fL (80-94); Monocytes # 0.7 10^3/uL (0.2-0.9); Monocytes % 6.5 %; Neutrophils # 8.13 10^3/uL (1.8-7.7); Neutrophils % 80.2 %; Nucleated Red Blood Cells % 0 %; Platelet Count 215 10^3/cmm (130-400); Red Blood Count 6.74 10^6/uL (4.1-5.3); White Blood Count 10.1 10^3/uL (4.0-10.0)
[2021-01-20 16:01] LABS: Troponin(5th) Baseline 19 ng/L (0-15)
[2021-01-20 16:07] LABS: D Dimer 3.81 ug/mIFEU (0-0.59)
--- NOTE | 2021-01-20 16:09 | CTR_ITS ---
PROCEDURE INFORMATION: Exam: CT Angiography Chest With Contrast Exam date and time: 01/20/2021 4:50 PM Age: 65 years old Clinical indication: Dyspnea; Prior surgery; Surgery date: 6+ months; Surgery type: Valve; Additional info: SOB TECHNIQUE: Imaging protocol: Computed tomographic angiography of the chest with contrast. 3D rendering (Not supervised by radiologist): MIP and/or 3D reconstructed images were created by the technologist. Radiation optimization: All CT scans at this facility use at least one of these dose optimization techniques: automated exposure control; mA and/or kV adjustment per patient size (includes targeted exams where dose is matched to clinical indication); or iterative reconstruction. Contrast material: VISI; Contrast volume: 95 ml; Contrast route: INTRAVENOUS (IV); COMPARISON: CT chest wo con [id number] 07/21/2020 4:31 PM RADIATION DOSE METRICS: Total DLP (mGy-cm): 620.33 FINDINGS: Pulmonary arteries: No pulmonary embolus or aortic dissection. Aorta: Calcification of the abdominal aorta and/or iliac arteries consistent with atherosclerotic vessel disease. Great vessels off aortic arch: Aberrant origin of the right subclavian artery which is usually not associated with other congenital heart disease. This is essentially a normal variant. Lungs: Unremarkable. No consolidation. No masses. Pleural spaces: Unremarkable. No pneumothorax. No pleural effusion. Heart: Severe calcified coronary artery disease. Endovascular aortic valve replacement. Lymph nodes: Calcified left hilar nodes and/or mediastinal nodes and/or lung granulomas consistent with old granulomatous disease. Gallbladder and bile ducts: Multiple gallstones within the gallbladder neck. Spleen: Calcified splenic granulomas. Kidneys and ureters: 3.5 cm exophytic mass midpole left kidney measuring 32 Hounsfield units consistent with renal cell carcinoma versus hemorrhagic cyst. 4.8 cm complex exophytic lesion arising from the upper pole right kidney measuring 20 Hounsfield units consistent with complex cyst versus neoplasm. Bones/joints: Unremarkable. No acute fracture. Soft tissues: Bilateral gynecomastia. CT/CT angio chest [place] protcl [id number] IMPRESSION: 1. Severe calcified coronary artery disease. 2. Endovascular aortic valve replacement. 3. Aberrant origin of the right subclavian artery which is usually not associated with other congenital heart disease. This is essentially a normal variant. 4. No pulmonary embolus or aortic dissection. 5. Multiple gallstones within the gallbladder neck. 6. 3.5 cm exophytic mass midpole left kidney measuring 32 Hounsfield units consistent with renal cell carcinoma versus hemorrhagic cyst. 7. 4.8 cm complex exophytic lesion arising from the upper pole right kidney measuring 20 Hounsfield units consistent with complex cyst versus neoplasm. COMMENTS: Consistent with the [employer]'s Incidental Findings Committee white paper (J Am Frances Radiol 2018): Any incidental renal lesion less than 1 cm or classified as too small to characterize, or any incidental cystic renal lesion characterized as simple-appearing, is likely benign. No follow-up imaging is recommended for these lesions per consensus recommendations based on imaging criteria. Radiation Dose CTDIVOL = (mGy): DLP = 620.33 (mGy-cm)
--- NOTE | 2021-01-20 16:33 | ECG_ITS ---
[facility] Test Date: 2021-01-20 Pat Name: Ry Loyd Department: Room: Gender: Male Physician: : 1955 Requested By: Lauren Wilson Order Number: [id number] Morena MD: Layla Cazares M.D. Measurements Intervals [place] Rate: 67 P: TN: QRS: -31 QRSD: 91 T: 117 QT: 393 QTc: 417 Interpretive Statements ATRIAL FIBRILLATION LEFT AXIS DEVIATION [QRS AXIS < -30] PATTERN CONSISTENT WITH PULMONARY DISEASE VOLTAGE CRITERIA FOR LVH [MEETS CRITERIA IN ONE OF: R(aVL), S(V1), R(V5), R(V5/V6)+S(V1)] NONSPECIFIC T-WAVE ABNORMALITY Compared to ECG 01/20/2021 15:25:12 No significant changes Electronically Signed On 01-20-2021 21:02:37 LABORATORY SECRETARY by Layla Cazares M.D. [id number]
[2021-01-20] MEDS: diphenhydrAMINE 50 mg/mL SDV 1mL IVP (16:39)
[2021-01-20] MEDS: hydrocortisone 100 mg/2 mL SDV IVP (16:39)
--- NOTE | 2021-01-20 16:52 | PC.NURSE ---
EKG done at 1650 and shown to ER doctor
[2021-01-20 17:15] LABS: Alanine Aminotransferase 29 U/L (0-41); Albumin Level 3.7 g/dL (3.5-5.2); Alkaline Phosphatase 69 IU/L (40-130); Anion Gap 15.2 (5-19); Aspartate Amino Transferase 18 U/L (0-40); Blood Urea Nitrogen 28 mg/dL (8-23); Carbon Dioxide 25 mmol/L (22-29); Chloride 105 mmol/L (98-107); Globulin 1.9 g/dL (1.3-4.6); Glomerular Filtration Rate 84.2 mL/min (90-130); Glucose 199 mg/dL (65-115); NT Pro B Type Natriuretic Pept 685 pg/mL (0-125); Osmolality Calculated 303 mOsm/kg (285-295); Potassium 4.2 mmol/L (3.5-5.1); Sodium 141 mmol/L (136-145); Total Bilirubin 0.6 mg/dL (0.15-1.2); Total Protein 5.6 g/dL (6.6-8.7)
[2021-01-20 17:21] LABS: INR 5.04 (0.8-1.2)
[2021-01-20] MEDS: iodixanol 320 mg/mL 100mL Btl IV (17:33)
[2021-01-20 17:39] LABS: Slide Review Slide Review Perform
[2021-01-20] MEDS: sodium chloride 0.9% 1,000 ML 999 ML IV (18:51)
[2021-01-20 19:00] VITALS: BP 166/114; PULSE 76; O2SAT 94
[2021-01-20 19:42] VITALS: BP 146/99; PULSE 69; O2SAT 96
[2021-01-20 19:49] LABS: Troponin 5 2HR 19.58 ng/L (0-15)
[2021-01-20 20:25] VITALS: BP 144/90; PULSE 81; RESP 16; O2SAT 97
== END 2021-01-20 20:25 | disposition home or self-care (01) ==
PROVIDERS: Physician Assistant; Emergency Provider Family Medicine; PCP Nurse Practitioner Family
DX: R06.02 Shortness of breath (principal); N28.89 Other specified disorders of kidney and ureter; K80.20 Calculus of gallbladder without cholecystitis without obstruction; Z79.01 Long term (current) use of anticoagulants; Z79.82 Long term (current) use of aspirin; Z79.4 Long term (current) use of insulin; I48.91 Unspecified atrial fibrillation; I11.0 Hypertensive heart disease with heart failure; I50.9 Heart failure, unspecified; Z86.73 Personal history of transient ischemic attack (TIA), and cerebral infarction without residual deficits; E11.9 Type 2 diabetes mellitus without complications; E78.5 Hyperlipidemia, unspecified; Z87.891 Personal history of nicotine dependence
CPT/HCPCS: 36415; 71045; 71275; 80053; 83880; 84484; 85025; 85378; 85610; 93005; 96361; 96374; 96375; 99284; J1200; J1720; J7030; Q9967

== ENCOUNTER 2021-02-17 06:58 | Observation (INO) | payer MEDICARE, OTHER, SELFPAY ==
[2021-02-17] VITALS (8 sets, daily range): BP systolic 97–157; BP diastolic 48–103; PULSE 55–102; RESP 16–24; TEMP 36.3–36.9; O2SAT 94–97; BMI 38.3
--- NOTE | 2021-02-17 07:17 | PC.NURSE ---
Bedside glucose 222
--- NOTE | 2021-02-17 07:18 | ECG_ITS ---
[facility] Test Date: 2021-02-17 Pat Name: Ry Loyd Department: Room: Gender: Male Soil Surveyor: : 1955 Requested By: Raymon Fernandez Order Number: [id number] Morena MD: Layla Cazares M.D. Measurements Intervals [place] Rate: 96 P: MA: QRS: -25 QRSD: 97 T: 143 QT: 346 QTc: 438 Interpretive Statements ATRIAL FIBRILLATION BORDERLINE LEFT AXIS DEVIATION [QRS AXIS < -20] MODERATE VOLTAGE CRITERIA FOR LVH, CONSIDER NORMAL VARIANT [MEETS CRITERIA IN ONE OF: R(aVL), S(V1), R(V5), R(V5/V6)+S(V1)] ST DEVIATION AND MODERATE T-WAVE ABNORMALITY, CONSIDER LATERAL ISCHEMIA [-0.1+ mV T WAVE IN I/aVL/V5/V6] Compared to ECG 01/20/2021 16:47:16 Possible ischemia now present T-wave abnormality still present Electronically Signed On 02-17-2021 19:48:28 CDT by Layla Cazares M.D. [id number]
--- NOTE | 2021-02-17 07:20 | ED_ITS ---
HPI - Weakness General: Chief complaint: Weakness Stated complaint: Weakness/Confusion Time Seen by Provider: 02/17/21 07:06 History of Present Illness: HPI Narrative: 65-year-old male presents emergency room via private vehicle with his . She is stating he has had increased weakness and confusion. He had a history of recurrent UTIs. He previously had a TAVR valve procedure which became infected and he is on long-term amoxicillin at that time. Patient is significantly disoriented he does not have any concept of time place or person at this point cannot answer any questions whatsoever every question placed him he responds with I do not know. He is lethargic. The states that he has not had a fever at home he is not had any diarrhea he has not had any chest pain cough or no apparent shortness of breath. He does not complain of any abdominal pain. He has a history of atrial fibrillation and is on Coumadin. She denies any recent medication changes. MD Complaint: generalized weakness Onset (ago): hour(s) Duration: constant Location: generalized Severity: moderate Relieving factors: none Exacerbating factors: none Associated symptoms: Reports confusion; Denies chest pain, chills, melena, decreased appetite, diaphoresis, dysuria, easy bruising, fever(s), headache(s), myalgias, nausea, rash, short of breath, syncope or vomiting Review of Systems Const: Denies: fever(s) or diaphoresis ENMT: Denies: throat pain, ear or mastoid pain, nasal discharge or nasal congestion Card: Denies: chest pain or syncope Resp: Denies: dyspnea, productive cough or non-productive cough GI: Denies: nausea, vomiting or melena : Denies: dysuria Skin/Breast: Denies: rash or pruritus Neuro: Reports: confusion; Denies: headache(s) Aaron/Lymph: Denies: easy bruising [facility] ED PFSH: Medical History (Updated 02/22/21 @ 11:56 by Raymon Boyce DO) Aortic stenosis Atrial fibrillation Bilateral renal masses CHF (congestive heart failure) Chronic use of steroids CVA (cerebral vascular accident) Diabetes Dyslipidemia Edema 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 Essential hypertension Gout Hx of [place] spotted fever Ischemic cardiomyopathy Left ventricular hypertrophy Obesity AJAY (obstructive sleep apnea) Pulmonary HTN Renal calculi Rheumatoid arthritis Thalassemia Surgical History H/O lithotripsy S/P TAVR (transcatheter aortic valve replacement) Family History Mother Stroke Father Myocardial infarction Other CAD (coronary artery disease) Chronic kidney disease (CKD) Diabetes Hypertension Social History Smoking and tobacco status: former smoker Quit status (tobacco): has quit using tobacco Year quit tobacco: 2019 - Chewing Tobacco Former quit date comment: Hx of 11/21 can x 50 Years Second hand smoke exposure: No Smoking risk assessment/counseling performed?: No Alcohol intake: former Lives independently: Yes Household members: spouse Marital status: Current occupational status: retired and disabled History of recent travel: No Current gender identity: Male Physical Exam Const: COMMON NORMALS: no acute distress GENERAL APPEARANCE: cooperative and comfortable HENMT: COMMON NORMALS: normocephalic, atraumatic and hearing grossly normal bilaterally HEAD & SCALP: normocephalic and atraumatic Neck/C-Spine: COMMON NORMALS: no JVD Resp: COMMON NORMALS: normal respiratory effort, No retractions, No use of accessory muscles and clear to auscultation bilaterally AUSCULTATION: clear to auscultation bilaterally Cardio: COMMON NORMALS: no JVD and regular rate RATE: regular rate RHYTHM: abnormal rhythm irregularly irregular GI: COMMON NORMALS: Soft to palpation and No hepatosplenomegaly present AUSCULTATION: Yes normoactive bowel sounds PALPATION: Yes Soft to palpation, No Tenderness to palpation present (GI), No Guarding due to palpation present (GI) and Yes No hepatosplenomegaly present Extremity: COMMON NORMALS: normal to inspection, capillary refill normal, no clubbing, cyanosis or edema, no calf tenderness and no pedal edema Skin: COMMON NORMALS: no rashes or lesions noted GENERAL SKIN EXAM: no rashes or lesions noted Course Vital Signs: Vital signs: Vital Signs Temperature 98.0 F 02/18/21 14:30 Pulse Rate 85 02/18/21 14:30 Respiratory Rate 18 02/18/21 14:30 Blood Pressure 128/82 02/18/21 14:30 Pulse Oximetry 95 02/18/21 14:30 MDM - Weakness Lab Data: Labs: Lab Results 02/17/21 02/17/21 02/17/21 Range/Units 07:17 07:39 07:39 WBC (4.0-10.0) 10^3/ uL RBC (4.1-5.3) 10^6/u L Hgb (11.7-16.6) g/dL Hct (42.0-52.0) % MCV (80-94) fL MCH (28.0-34.0) pg MCHC (30.0-36.0) g/dL RDW (12.1-15.1) % Plt Count (130-400) 10^3/c mm MPV Neut % (Auto) % Lymph % (Auto) % [place] % (Auto) % Eos % (Auto) % Baso % (Auto) % Neut # (Auto) (1.8-7.7) 10^3/u L Lymph # (Auto) (0.8-4.8) 10^3/u L [place] # (Auto) (0.2-0.9) 10^3/u L Eos # (Auto) (0.0-0.8) 10^3/u L Baso # (Auto) (0.0-0.1) 10^3/u L Nucleated RBC % (a uto) % Nucleated RBCs # /100WBC PT 32.30 H (12.1-14.9) SECO NDS INR 3.01 H (0.8-1.2) Specimen Type Sample Site ABG pH (7.35-7.45) ABG pCO2 (35-45) mmHg ABG pO2 (80.0-100.0) mmH g ABG HCO3 (22-26) mmol/L ABG O2 Saturation ABG Base Excess (-2.0-2.0) mmol/ L Matteo Test A-a O2 Gradient (5-10) mmHg Hematocrit (42-52) % Hgb O2 Saturation (95-100) % Carboxyhemoglobin (0.4-20.1) %THgb Methemoglobin (0.4-1.5) % Total Hemoglobin (14-18) g/dL Ionized Calcium (1.1-1.4) mmol/L O2 Delivery Device FiO2 % Counseling Center Director ID Sodium (136-145) mmol/L Potassium (3.5-5.1) mmol/L Chloride (98-107) mmol/L Carbon Dioxide (22-29) mmol/L Anion Gap (5-19) BUN (8-23) mg/dL Creatinine (0.7-1.2) mg/dL GFR Calculation (90-130) mL/min Glucose (65-115) mg/dL POC Glucose 222 H (70-110) mg/dL Calculated Osmolal ity (285-295) mOsm/k g Lactic Acid 1.7 (0.5-2.2) mmol/L Calcium (8.5-10.5) mg/dL Total Bilirubin (0.15-1.2) mg/dL AST (0-40) U/L ALT (0-41) U/L Alkaline Phosphata se (40-130) IU/L Total Protein (6.6-8.7) g/dL Albumin (3.5-5.2) g/dL Globulin (1.3-4.6) g/dL Lipase (13-60) U/L Urine Color (Yellow) Urine Appearance (CLEAR) Urine pH (5-7) Ur Specific Gravit y (1.005-1.030) Urine Protein (Negative) Urine Glucose (UA) (Normal) Urine Ketones (Negative) Urine Blood (Negative) Urine Nitrate (Negative) Urine Bilirubin (Negative) Urine Urobilinogen (Negative) mg/dL Ur Leukocyte Michelle ase (Negative) Urine RBC (0-2) /hpf Urine WBC (0-5) /hpf Ur Squamous Epith Cells (0-5) /hpf Amorphous Sediment Urine Bacteria (NONE) /hpf 02/17/21 02/17/21 02/17/21 Range/Units 07:39 07:39 07:43 WBC 14.8 H (4.0-10.0) 10^3/ uL RBC 6.96 H (4.1-5.3) 10^6/u L Hgb 12.8 (11.7-16.6) g/dL Hct 42.8 (42.0-52.0) % MCV 61.5 L (80-94) fL MCH 18.4 L (28.0-34.0) pg MCHC 29.9 L (30.0-36.0) g/dL RDW 20.0 H (12.1-15.1) % Plt Count 167 (130-400) 10^3/c mm MPV Not Reportable Neut % (Auto) 83.5 % Lymph % (Auto) 7.9 % [place] % (Auto) 6.6 % Eos % (Auto) 0.8 % Baso % (Auto) 0.5 % Neut # (Auto) 12.31 H (1.8-7.7) 10^3/u L Lymph # (Auto) 1.2 (0.8-4.8) 10^3/u L [place] # (Auto) 1.0 H (0.2-0.9) 10^3/u L Eos # (Auto) 0.1 (0.0-0.8) 10^3/u L Baso # (Auto) 0.1 (0.0-0.1) 10^3/u L Nucleated RBC % (a uto) 0.1 % Nucleated RBCs # 0.0 /100WBC PT (12.1-14.9) SECO NDS INR (0.8-1.2) Specimen Type [facility] Sample Site Radial, right ABG pH 7.44 (7.35-7.45) ABG pCO2 37.0 (35-45) mmHg ABG pO2 74.1 L (80.0-100.0) mmH g ABG HCO3 25.3 (22-26) mmol/L ABG O2 Saturation 65.5 ABG Base Excess 1.3 (-2.0-2.0) mmol/ L Matteo Test Pos A-a O2 Gradient 4.0 L (5-10) mmHg Hematocrit 39.2 L (42-52) % Hgb O2 Saturation 41.5 L (95-100) % Carboxyhemoglobin 6.7 (0.4-20.1) %THgb Methemoglobin 29.9 H (0.4-1.5) % Total Hemoglobin 23.2 H (14-18) g/dL Ionized Calcium 1.2 (1.1-1.4) mmol/L O2 Delivery Device Room air FiO2 21.0 % Counseling Center Director ID Anonymous Sodium 141 178.0 H (136-145) mmol/L Potassium 3.8 13.4 H (3.5-5.1) mmol/L Chloride 102 (98-107) mmol/L Carbon Dioxide 27 (22-29) mmol/L Anion Gap 15.8 (5-19) BUN 36 H (8-23) mg/dL Creatinine 1.2 (0.7-1.2) mg/dL GFR Calculation 60.4 L (90-130) mL/min Glucose 202 H 173.0 H (65-115) mg/dL POC Glucose (70-110) mg/dL Calculated Osmolal ity 306 H (285-295) mOsm/k g Lactic Acid (0.5-2.2) mmol/L Calcium 9.7 (8.5-10.5) mg/dL Total Bilirubin 1.0 (0.15-1.2) mg/dL AST 20 (0-40) U/L ALT 28 (0-41) U/L Alkaline Phosphata se 80 (40-130) IU/L Total Protein 6.8 (6.6-8.7) g/dL Albumin 3.9 (3.5-5.2) g/dL Globulin 2.9 (1.3-4.6) g/dL Lipase 28 (13-60) U/L Urine Color (Yellow) Urine Appearance (CLEAR) Urine pH (5-7) Ur Specific Gravit y (1.005-1.030) Urine Protein (Negative) Urine Glucose (UA) (Normal) Urine Ketones (Negative) Urine Blood (Negative) Urine Nitrate (Negative) Urine Bilirubin (Negative) Urine Urobilinogen (Negative) mg/dL Ur Leukocyte Michelle ase (Negative) Urine RBC (0-2) /hpf Urine WBC (0-5) /hpf Ur Squamous Epith Cells (0-5) /hpf Amorphous Sediment Urine Bacteria (NONE) /hpf 02/17/21 Range/Units 07:44 WBC (4.0-10.0) 10^3/ uL RBC (4.1-5.3) 10^6/u L Hgb (11.7-16.6) g/dL Hct (42.0-52.0) % MCV (80-94) fL MCH (28.0-34.0) pg MCHC (30.0-36.0) g/dL RDW (12.1-15.1) % Plt Count (130-400) 10^3/c mm MPV Neut % (Auto) % Lymph % (Auto) % [place] % (Auto) % Eos % (Auto) % Baso % (Auto) % Neut # (Auto) (1.8-7.7) 10^3/u L Lymph # (Auto) (0.8-4.8) 10^3/u L [place] # (Auto) (0.2-0.9) 10^3/u L Eos # (Auto) (0.0-0.8) 10^3/u L Baso # (Auto) (0.0-0.1) 10^3/u L Nucleated RBC % (a uto) % Nucleated RBCs # /100WBC PT (12.1-14.9) SECO NDS INR (0.8-1.2) Specimen Type Sample Site ABG pH (7.35-7.45) ABG pCO2 (35-45) mmHg ABG pO2 (80.0-100.0) mmH g ABG HCO3 (22-26) mmol/L ABG O2 Saturation ABG Base Excess (-2.0-2.0) mmol/ L Matteo Test A-a O2 Gradient (5-10) mmHg Hematocrit (42-52) % Hgb O2 Saturation (95-100) % Carboxyhemoglobin (0.4-20.1) %THgb Methemoglobin (0.4-1.5) % Total Hemoglobin (14-18) g/dL Ionized Calcium (1.1-1.4) mmol/L O2 Delivery Device FiO2 % Counseling Center Director ID Sodium (136-145) mmol/L Potassium (3.5-5.1) mmol/L Chloride (98-107) mmol/L Carbon Dioxide (22-29) mmol/L Anion Gap (5-19) BUN (8-23) mg/dL Creatinine (0.7-1.2) mg/dL GFR Calculation (90-130) mL/min Glucose (65-115) mg/dL POC Glucose (70-110) mg/dL Calculated Osmolal ity (285-295) mOsm/k g Lactic Acid (0.5-2.2) mmol/L Calcium (8.5-10.5) mg/dL Total Bilirubin (0.15-1.2) mg/dL AST (0-40) U/L ALT (0-41) U/L Alkaline Phosphata se (40-130) IU/L Total Protein (6.6-8.7) g/dL Albumin (3.5-5.2) g/dL Globulin (1.3-4.6) g/dL Lipase (13-60) U/L Urine Color Yellow (Yellow) Urine Appearance Hazy A (CLEAR) Urine pH 5 (5-7) Ur Specific Gravit y 1.015 (1.005-1.030) Urine Protein Neg (Negative) Urine Glucose (UA) Norm (Normal) Urine Ketones Negative (Negative) Urine Blood 3+ H (Negative) Urine Nitrate Positive H (Negative) Urine Bilirubin Neg (Negative) Urine Urobilinogen Norm (Negative) mg/dL Ur Leukocyte Michelle ase 2+ H (Negative) Urine RBC 15-25 H (0-2) /hpf Urine WBC >100 H (0-5) /hpf Ur Squamous Epith Cells 0-4 H (0-5) /hpf Amorphous Sediment Not Reportable Urine Bacteria 1+ H (NONE) /hpf Discharge Plan Discharge Patient Disposition: Placed in Observation Admit Provider: Mike Davenport Clinical Impression: Encephalopathy acute, Endocarditis, Atrial fibrillation, Acute cystitis, Dementia Condition: Stable Discharge Orders: Discharge Order (Routine); Ordered 02/18/21 Ordered By: Mike Davenport Discharge Diet: Usual diet Discharge Activity: Increase activity as tolerated Coding Level of Care Code ED Transcriber for Chg Fwd Exam Comprehensive
[2021-02-17 07:31] LABS: Glucose Point of Care 222 mg/dL (70-110)
[2021-02-17 07:55] LABS: Basophils # 0.1 10^3/uL (0.0-0.1); Basophils % 0.5 %; Eosinophils # 0.1 10^3/uL (0.0-0.8); Eosinophils % 0.8 %; Hematocrit 42.8 % (42.0-52.0); Hemoglobin 12.8 g/dL (11.7-16.6); Lymphocytes # 1.2 10^3/uL (0.8-4.8); Lymphocytes % 7.9 %; Mean Corpuscular HGB Conc 29.9 g/dL (30.0-36.0); Mean Corpuscular Hemoglobin 18.4 pg (28.0-34.0); Mean Corpuscular Volume 61.5 fL (80-94); Monocytes % 6.6 %; Neutrophils # 12.31 10^3/uL (1.8-7.7); Neutrophils % 83.5 %; Nucleated Red Blood Cells % 0.1 %; Platelet Count 167 10^3/cmm (130-400); Red Blood Count 6.96 10^6/uL (4.1-5.3); White Blood Count 14.8 10^3/uL (4.0-10.0)
[2021-02-17 07:56] LABS: ABG PH Result 7.44 (7.35-7.45); Arterial Blood Gas Hematocrit 39.2 % (42-52); Base Excess ABG 1.3 mmol/L (-2.0-2.0); Blood Gas Allen Test Pos; Blood Gas Sample Site Radial, right; HCO3 ABG 25.3 mmol/L (22-26); Ionized Calcium Level - ABG 1.2 mmol/L (1.1-1.4); Oxygen Device ROOM AIR; PO2 ABG 74.1 mmHg (80.0-100.0)
[2021-02-17 08:07] LABS: INR 3.01 (0.8-1.2)
[2021-02-17 08:13] LABS: Specific Gravity, Urine 1.015 (1.005-1.030); Urine Appearance Hazy (CLEAR); Urine Color Yellow (Yellow); pH Urine 5 (5-7)
--- NOTE | 2021-02-17 08:13 | CT_ITS ---
WS: [id number] CT HEAD NONCONTRAST HISTORY: AMS, chronic anticoagulation TECHNIQUE: Contiguous axial imaging performed through the brain in 2.5 mm imaging. Bone and soft tiss ue windows. Sagittal and coronal reformats reviewed. All CT scans at [facility] use at le ast one of these dose optimization techniques: automated exposure control; mA and/or kV adjustment pe r patient size (includes targeted exams where dose is matched to clinical indication); or iterative r econstruction. DLP: 1500.83 mGy.cm COMPARISON: 07/21/2020 No acute intracranial hemorrhage, midline shift or mass effect. Mild atrophy is again identified. There are numerous areas of decreased attenuation from prior infarc ts in small vessel ischemic disease. Encephalomalacia in the RIGHT cerebellum. There is also retrocer ebellar arachnoid cyst. Prior lacunar in the anterior limb of the RIGHT internal capsule. Ventricles: Ventricles are mildly prominent on the basis of atrophy. Paranasal sinuses: As visualized are clear. Mastoid air cells: Well pneumatized. Calvarium and scalp: Skull is intact with no soft tissue edema or swelling. CT/CT head wo con* [id number] IMPRESSION: 1. No acute intracranial hemorrhage or edema. 2. Stable noncontrast head CT since 07/21/2020. Atrophy with chronic microvascul ar ischemic disease and prior RIGHT cerebellar infarct. No interval change.
[2021-02-17 08:19] LABS: Add Urine Microscopic? YES; Bilirubin Urine Neg (Negative); Blood Urine 3+ (Negative); Glucose Urine UA Norm (Normal); Ketones Urine Negative (Negative); Leukocyte Esterase Urine 2+ (Negative); Nitrate Urine Positive (Negative); Protein Urine Neg (Negative); Urobilinogen Urine Norm (Negative)
[2021-02-17 08:22] LABS: Lactic Sepsis W/Reflex 1.7 mmol/L (0.5-2.2)
[2021-02-17 08:23] LABS: Add Urine Culture? Yes; Bacteria Urine 1+ /hpf; RBC Urine 15-25 /hpf (0-2); Squamous Epithelial Cell Urine 0-4 /hpf (0-5); WBC Urine >100 /hpf (0-5)
[2021-02-17 08:23] LABS: Alanine Aminotransferase 28 U/L (0-41); Albumin Level 3.9 g/dL (3.5-5.2); Alkaline Phosphatase 80 IU/L (40-130); Anion Gap 15.8 (5-19); Aspartate Amino Transferase 20 U/L (0-40); Blood Urea Nitrogen 36 mg/dL (8-23); Calcium 9.7 mg/dL (8.5-10.5); Carbon Dioxide 27 mmol/L (22-29); Chloride 102 mmol/L (98-107); Globulin 2.9 g/dL (1.3-4.6); Glomerular Filtration Rate 60.4 mL/min (90-130); Glucose 202 mg/dL (65-115); Lipase 28 U/L (13-60); Osmolality Calculated 306 mOsm/kg (285-295); Potassium 3.8 mmol/L (3.5-5.1); Sodium 141 mmol/L (136-145); Total Protein 6.8 g/dL (6.6-8.7)
[2021-02-17 08:35] LABS: Blood Gas Operator Identificat Anonymous; Blood Gas Sample Type CalVer; HGB O2 Sat 41.5 % (95-100); Potassium Level - ABG 13.4 mmol/L (3.5-5.0)
[2021-02-17 08:36] LABS: Slide Review Slide Review Perform
[2021-02-17] MEDS: piperacillin-tazobactam 3.375 GM in sodium chloride 0.9% (plus) 50 ML IV (08:43)
[2021-02-17 10:11] LABS: Carboxyhemoglobin 6.7 %THgb (0.4-20.1); Methemoglobin 29.9 % (0.4-1.5); Oxygen Saturation ABG 65.5; Total Hemoglobin 23.2 g/dL (14-18)
--- NOTE | 2021-02-17 10:45 | PC.PHAR ---
PTS STATES SHE TAKES CARE OF THE PTS MEDICATIONS-PTS STATES THE PT IS TAKING CARVEDILOL 6.25MG TAKES 1 AND 1/2 TAB PO BID-[facility]ILY [facility] LAST FILLED ON 01/29/21 1 TAB PO BID-PTS STATES THE PT TAKES LANTUS SOLOSTAR PTS STATES THE DOSE VARIES-PHARMACY LAST FILLED ON 02/02/21 70 UNITS BID-PTS STATE THE PT IS TAKING PREDNISONE 7.5MG PO DAILY-F[facility]ILY PHARM[facility]Y STATES THEY LAST FILLED 10MG PO DAILY ON 11/25/20 30D/S WITH ONE REFILL-PTS STATES THE PT HAD A BUILD UP AND IS TAKING 7.5MG PO DAILY-PTS STATES THE PT IS TAKING LASIX 40MG PO BID AND HAS BEEN TAKING THAT FOR A FEW MONTHS-EXT MED HISTORY SHOWS LAST FILLED ON 12/23/20 90D/S FOR 40MG PO DAILY-PTS STATES THE PT HAS NO INHALERS-
--- NOTE | 2021-02-17 13:48 | PM.HP ---
Providers/Chief Complaint Admitting Physician: Mike Davenport MD Primary Care Provider: Faustina Gonzalez NP Chief Complaint: Weakness/Confusion History of Present Illness Ry Loyd is a 65 year old male who presented to the emergency department with confusion. He has baseline dementia, but noted that early this morning around 4 AM or so he was confused in the bathroom with his pants down. She states this is very atypical for him and usually occurs in the setting of UTI. He has been somewhat sleepy since then which she reports is also inconsistent with his baseline mental status. At baseline she reports he recognizes family members, takes care of simple ADLs, and ambulates with a walker. He has not had any fever. He has not been vomiting. He did eat less and drink less than normal this morning. No history of Covid, or exposure to Covid that they know of. No significant cough. assists in review of systems. Patient is able to answer a few simple questions and denies pain. He has a past history of UTIs. Some of them have had resistant organisms. He is chronically on amoxicillin for history of endocarditis. Review of Systems General: Reports: 10 or more systems reviewed and unremarkable except in HPI and below Const: Reports: fatigue; Denies: fever(s) or chills Eyes: Denies: change in vision ENMT: Denies: throat pain Card: Denies: chest pain Resp: Denies: dyspnea GI: Denies: abdominal pain : Denies: flank pain Musc: Denies: neck pain Skin/Breast: Denies: rash Neuro: Reports: confusion Psych: Denies: anxiety or depression Endo: Denies: polyuria Aaron/Lymph: Denies: easy bruising All/Imm: Denies: urticaria Medications/Allergies Home Medications Medication Instructions Recorded Confirmed Last Taken Type citalopram 10 mg tablet 10 mg PO DAILY@06 tab 12/03/19 02/17/21 02/16/21 History leflunomide 20 mg tablet 20 mg PO DAILY@06 tab 12/03/19 02/17/21 02/16/21 History nitroglycerin 0.4 mg sublingual 0.4 mg SUBLINGUAL Q5M PRN 12/03/19 02/17/21 01/16/20 History tablet tamsulosin 0.4 mg capsule 0.4 mg PO DAILY@06 cap 12/03/19 02/17/21 02/16/21 History pantoprazole [Protonix] 40 mg PO DAILY@12/25/19 02/17/21 02/16/21 History potassium chloride 20 meq PO BID 12/25/19 02/17/21 02/16/21 History lisinopril 2.5 mg tablet 2.5 mg PO DAILY@06/09/20 02/17/21 02/16/21 History Vitamin Plus Low Iron 1 tab PO DAILY@10/03/20 02/17/21 10/03/20 History aspirin 81 mg PO DAILY@10/10/20 02/17/21 02/16/21 History carvedilol 6.25 mg tablet See Rx Instructions .ROUTE 10/30/20 02/17/21 01/20/21 History .COMPLEX tab furosemide 40 mg tablet See Rx Instructions .ROUTE 10/30/20 02/17/21 02/16/21 History .COMPLEX tab amoxicillin 500 mg PO BID@,01/20/21 02/17/21 02/16/21 History acetaminophen [Tylenol Extra 500 mg PO PRN 02/17/21 02/17/21 Unknown History Strength] atorvastatin 40 mg PO DAILY@02/17/21 02/17/21 02/16/21 History diltiazem HCl 120 mg PO DAILY@02/17/21 02/17/21 02/16/21 History hydroxyzine pamoate 25 mg PO BID PRN 02/17/21 02/17/21 Unknown History insulin glargine [Lantus Solostar See Rx Instructions .ROUTE .COMPLEX 02/17/21 02/17/21 Unknown History U-100 Insulin] prednisone 7.5 mg PO DAILY@02/17/21 02/17/21 Unknown History simethicone [Gas-X] 80 mg PO PRN 02/17/21 02/17/21 02/16/21 History warfarin See Rx Instructions .ROUTE .COMPLEX 02/17/21 02/17/21 Unknown History warfarin See Rx Instructions .ROUTE .COMPLEX 02/17/21 02/17/21 Unknown History Allergies Allergy/AdvReac Type Severity Reaction Status Date / Time ceftriaxone [From Rocephin] Allergy Intermediate ALGY-Difficulty Verified 02/17/21 10:29 Breathing levofloxacin [From Levaquin] Allergy Mild ADR-Itching Verified 02/17/21 10:29 iodine Allergy Unknown Unknown Verified 02/17/21 10:29 clopidogrel [From Plavix] AdvReac Intermediate Unknown Verified 02/17/21 10:29 PFSH Acute PFSH: Medical History (Updated 02/17/21 @ 13:56 by Mike Davenport MD) Aortic stenosis Atrial fibrillation Bilateral renal masses CHF (congestive heart failure) Chronic use of steroids CVA (cerebral vascular accident) Diabetes Dyslipidemia Edema 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 Essential hypertension Gout Hx of [place] spotted fever Ischemic cardiomyopathy Left ventricular hypertrophy Obesity AJAY (obstructive sleep apnea) Pulmonary HTN Renal calculi Rheumatoid arthritis Thalassemia Surgical History H/O lithotripsy S/P TAVR (transcatheter aortic valve replacement) Family History Mother Stroke Father Myocardial infarction Other CAD (coronary artery disease) Chronic kidney disease (CKD) Diabetes Hypertension Social History Smoking and tobacco status: former smoker Quit status (tobacco): has quit using tobacco Year quit tobacco: 2019 - Chewing Tobacco Former quit date comment: Hx of 1/2 can x 50 Years Second hand smoke exposure: No Smoking risk assessment/counseling performed?: No Alcohol intake: former Lives independently: Yes Household members: spouse Marital status: Current occupational status: retired and disabled History of recent travel: No Current gender identity: Male Vitals/I&O/Wt Last Vital Signs Temp 98.4 F 02/17/21 10:55 Pulse 55 L 02/17/21 10:55 Resp 20 H 02/17/21 10:55 BP 157/103 02/17/21 10:55 Pulse Ox 94 02/17/21 10:55 02/16/21 02/17/21 02/17/21 22:59 06:59 14:59 Intake Total 50 / 50 Balance 50 / 50 Weight last 48 hrs Weight 124.738 kg Physical Exam Narrative: EXAM NARRATIVE: General exam is a white male, sleeping when I entered the room who can awaken and answer few questions upon being prompted. Underlying confusion is noted. HEENT: Pupils equally round. Oropharynx clear. Mucous membranes slightly dry. Neck is supple no lymphadenopathy or thyromegaly Cardiovascular irregular, irregular rhythm without murmur, no S3 or S4 Lungs are clear no wheezing or crackles Abdomen is soft with positive bowel sounds. No obvious organomegaly was deferred Extremities no cyanosis clubbing or edema, cap refill brisk Skin no rash Neuro no obvious focal deficits, confusion noted Data : 02/17/21 07:39 02/17/21 07:39 Micro: Microbiology 02/17/21 08:43 Blood Culture - Preliminary Blood SPECIMEN COLLECTED 02/17/21 07:39 Blood Culture - Preliminary Blood SPECIMEN COLLECTED Other data: INR is 3 ABG demonstrates a pH of 7.44, PCO2 37, PO2 74 on room air LFTs normal Lactic acid 1.7 Calcium 9.7 Albumin 3.9 Lipase 28 UA demonstrates greater than 100 whites, 15-[address] no acute changes. Previous right cerebellar infarct EKG demonstrates atrial fibrillation, controlled rate, left axis deviation, nonspecific ST-T wave changes with flipped T waves laterally A&P Assessment and plan (1) Encephalopathy acute: Secondary to UTI Status: Acute (2) Acute cystitis: Previously resistant organisms, 2, with resistance to even Primaxin. Fluoroquinolones demonstrated sensitivity to both organisms as well as Zosyn. He is on chronic amoxicillin for endocarditis which may be selecting for more resistant organisms. At this point considering past sensitivity profiles, tolerance of Cipro, no use of Cipro since September 2020 will initiate this IV . Urine and blood culture Hold rheumatologic medications which are immunosuppressive. Status: Acute Qualifiers: Hematuria presence: without hematuria Qualified Code(s): N30.00 - Acute cystitis without hematuria (3) Atrial fibrillation: Rate controlled. Continue home medications Continue Coumadin, dose adjustment per pharmacy. Goal INR 2-2.5 Status: Acute Qualifiers: Atrial fibrillation type: unspecified chronic Qualified Code(s): I48.20 - Chronic atrial fibrillation, unspecified (4) Dementia: Has underlying dementia Status: Acute (5) Endocarditis: Hold amoxicillin, while on ciprofloxacin. Status: Acute Additional A&P Information Hypertension, continue home meds Hyperlipidemia, continue home meds Rheumatoid arthritis, hold immune suppressing medication currently. Diabetes mellitus. Sliding scale insulin. Half regular dose Lantus until we see how he will eat. Multiple other medical problems as outlined in past medical history Full code Coumadin will suffice for DVT prophylaxis Physical therapy evaluation. reports he has some generalized weakness and she does not want to lose any ground while in the hospital. Attestations Medical Necessity Statement*: Will need less than 2 midnight stay for treatment of UTI with encephalopathy. If he shows rapid improvement could be discharged tomorrow on ciprofloxacin. If significant encephalopathy is still present treatment will need to continue, pending culture results. Time Spent in Patient Care: Greater than 35 minutes Coding Level of Care Code Acute Shipper/Receiver for [facility] Fwd Diagnoses Encephalopathy acute G93.40 Acute cystitis N30.00 Hematuria presence: without hematuria Atrial fibrillation I48.20 Atrial fibrillation type: unspecified chronic Dementia F03.90 Endocarditis I38
[2021-02-17] MEDS: ciprofloxacin 400 MG/200 ML PREMIX 200 MG IV (15:35)
[2021-02-17] MEDS: warfarin 10 mg Tablet PO (15:35)
[2021-02-17 17:42] LABS: Glucose Point of Care 343 mg/dL (70-110)
[2021-02-17] MEDS: potassium chloride ER 20 mEq Tablet PO (19:55)
[2021-02-17] MEDS: atorvastatin 40 mg Tablet PO (19:55)
[2021-02-17] MEDS: insulin glargine 100 units/1 mL 30 UNIT SUBCUT (19:56)
--- NOTE | 2021-02-17 20:02 | PC.NURSE ---
PTS WAS AT BEDSIDE DURING ADMISSION, PT HAS SIGNIFICANT BROWN RAISED ROUGH AREA ON HIS L ABD. PTS STATED, IT IS FROM A DIABETIC MED HE WAS GIVEN A LONG TIME AGO, IT NEVER GOES AWAY.
[2021-02-17 20:55] LABS: Glucose Point of Care 256 mg/dL (70-110)
[2021-02-17] MEDS: carvedilol 6.25 mg Tablet PO (22:09)
[2021-02-18] VITALS: BP 129/84; PULSE 95; RESP 20; TEMP 36.7; O2SAT 97
[2021-02-18] MEDS: ciprofloxacin 400 MG/200 ML PREMIX 200 MG IV (03:38)
[2021-02-18 03:46] VITALS: BP 160/80; PULSE 98; RESP 20; TEMP 36.4; O2SAT 93
[2021-02-18] MEDS: citalopram 20 mg Tablet 10 MG PO (06:01)
[2021-02-18] MEDS: aspirin 81 mg EC Tablet PO (06:02)
[2021-02-18] MEDS: predniSONE 5 mg Tablet 7.5 MG PO (06:02)
[2021-02-18] MEDS: lisinopril 2.5 mg Tablet PO (06:02)
[2021-02-18] MEDS: dilTIAZem ER (24HR) 120 mg Capsule PO (06:02)
[2021-02-18] MEDS: tamsulosin 0.4 mg Capsule PO (06:02)
[2021-02-18] MEDS: pantoprazole DR 40 mg Tablet PO (06:03)
[2021-02-18 06:04] LABS: Basophils # 0.1 10^3/uL (0.0-0.1); Basophils % 0.7 %; Eosinophils # 0.2 10^3/uL (0.0-0.8); Eosinophils % 1.2 %; Hematocrit 36.4 % (42.0-52.0); Hemoglobin 10.8 g/dL (11.7-16.6); Lymphocytes # 1.4 10^3/uL (0.8-4.8); Lymphocytes % 11.3 %; Mean Corpuscular HGB Conc 29.7 g/dL (30.0-36.0); Mean Corpuscular Volume 60.7 fL (80-94); Monocytes # 1.1 10^3/uL (0.2-0.9); Monocytes % 8.8 %; Neutrophils # 9.32 10^3/uL (1.8-7.7); Neutrophils % 77.2 %; Nucleated Red Blood Cells % 0 %; Platelet Count 155 10^3/cmm (130-400); Red Cell Distribution Width 18.9 % (12.1-15.1); White Blood Count 12.1 10^3/uL (4.0-10.0)
[2021-02-18 06:50] LABS: Anion Gap 11.6 (5-19); Blood Urea Nitrogen 26 mg/dL (8-23); Calcium 9.2 mg/dL (8.5-10.5); Carbon Dioxide 26 mmol/L (22-29); Chloride 103 mmol/L (98-107); Glomerular Filtration Rate 84.2 mL/min (90-130); Glucose 164 mg/dL (65-115); Osmolality Calculated 292 mOsm/kg (285-295); Potassium 3.6 mmol/L (3.5-5.1); Sodium 137 mmol/L (136-145)
[2021-02-18 06:59] VITALS: BP 152/84; PULSE 97; RESP 17; TEMP 36.7; O2SAT 96
[2021-02-18 07:04] LABS: Glucose Point of Care 159 mg/dL (70-110)
[2021-02-18 07:25] LABS: Slide Review Slide Review Perform
[2021-02-18] MEDS: potassium chloride ER 20 mEq Tablet PO (08:25)
[2021-02-18] MEDS: FUROsemide 40 mg Tablet PO (08:25)
[2021-02-18] MEDS: carvedilol 6.25 mg Tablet PO (08:26)
[2021-02-18] MEDS: insulin glargine 100 units/1 mL 30 UNIT SUBCUT (08:54)
[2021-02-18 11:04] LABS: Glucose Point of Care 295 mg/dL (70-110)
[2021-02-18 11:05] VITALS: BP 128/82; PULSE 85; RESP 18; TEMP 36.7; O2SAT 95
--- NOTE | 2021-02-18 11:46 | PC.CHAP ---
Pastoral Care Encounter/Spiritual Assessment Type of Contact [] Declined densitometer reader visit [] Patient/Family/Request visit [] Outpatient visit [] Follow-up visit [] Physician referral [] Code/Alert [x] Routine visit [] Staff referral [] Actively dying [] Patient sleeping [] Family support [] [] Out of room [] Palliative care [] [ ] Receiving care in room [] Pre-surgical visit [] Trauma [x] Long length of stay [] ICU visit [x] Other: Confusion Relational/Emotional Strength [] Patient feels connected with others/family/visitors/staff [] Distress [ ] Loneliness/isolation [] Abandonment Spirituality of Patient [] Person of Nellie [] Attends Yazidism of their Nellie [] Believes in Prayer [] Reads Bible or Gnosticist materials [] There are Spiritual issues to be addressed Bar Host/Hostess Interventions [] Prayer [] Active listening [] Non-anxious presence [] Spiritual/emotional support [] Crisis/trauma care [] Spiritual counseling [] Bereavement support [] Provided bereavement packet [] Provided Bible/devotional materials [] Provided toy/stuffed animal, coloring book to patient or family member [] Provided Communion [] Anointing/[place] [] Salvation [] Completed spiritual assessment [] Other: Impact on Illness or Injury [] Angry [] Fearful [] Anxious [] Often cries [] Exhaustion [ ] Unable to work [] Unable to attend restoration [] Unable to walk/stand [] Unable to read [] Unable to drive [x] Unable to eat/drink [] Unable to sleep [] Unable to be with family [x] Patient intubated [] Other: Summary Confusion Time spent with patient 10 mins
--- NOTE | 2021-02-18 13:41 | P.DS_ITS ---
Discharge Providers Date of Admission: 02/17/21 10:29 Date of Discharge: February 18, 2021 Attending Provider at Admission: Mike Davenport MD Attending Provider at Discharge: Mike Davenport MD Primary Care Provider: Faustina Gonzalez NP Diagnoses at Discharge Discharge Diagnosis (1) Encephalopathy acute: Status: Acute (2) Acute cystitis: Status: Acute Qualifiers: Hematuria presence: without hematuria Qualified Code(s): N30.00 - Acute cystitis without hematuria (3) Atrial fibrillation: Status: Acute Qualifiers: Atrial fibrillation type: unspecified chronic Qualified Code(s): I48.20 - Chronic atrial fibrillation, unspecified (4) Dementia: Status: Acute (5) Endocarditis: Status: Acute Permanent problem details: -on chronic amoxicillin Reason for Visit Reason for Visit: Weakness/Confusion Hospital Course Hospital Course Ry is a 65-year-old white male who presented to the hospital with confusion. reports that this frequently happens when he has a significant UTI. Urine infection was noted on urinalysis in the emergency department. White blood cell count was elevated. Patient has underlying dementia as well. Head CT did not demonstrate any acute changes. He got 1 dose of Zosyn in the emergency department, but based on his significant urine culture profile from an infection in September with Citrobacter and Proteus and the fact he is on long- term amoxicillin for endocarditis his regimen was changed to ciprofloxacin. He did well overnight with no fever. Mental status was back to baseline in the morning. White blood cell count had decreased. It was thought he could be discharged home on ciprofloxacin with close follow-up of culture results. He also had a C. difficile toxin done in the hospital secondary to some loose stool which was negative. On discharge his believes he was back to his baseline mental status, and he was up and ambulating. He will not take his leflunomide until finishing his entire course of antibiotics. He will follow-up with urolo delmar in 2 weeks for history of frequent UTIs. Urine culture results will be followed up. The hospital. His INR is elevated at 3.8 and he was instructed not to take Coumadin today, and to follow-up with an INR and direction at his primary care provider's office for further Coumadin dosing. He will not take his chronic amoxicillin while on the ciprofloxacin. Physical Exam Narrative: EXAM NARRATIVE: General exam is no apparent distress Cardiovascular irregular, irregular rate and rhythm without murmur Lungs clear Abdomen is soft with positive bowel sounds Extremities no cyanosis clubbing or edema Discharge Data Data Completed and Pending: Completed Studies During Hospitalization Category Date Time Status CT head wo con* [id number] 0450 Stat Cat Scan 02/17/21 08:13 Completed Pending at discharge Category Date Time Status Blood Culture Sta t Lab 02/17/21 08:43 Results Prothrombin Time INR AM LABS Lab 02/19/21 04:00 Ordered Prothrombin Time INR AM LABS Lab 02/20/21 04:00 Ordered Urine Culture Sta t Lab 02/17/21 07:44 Results Labs from last 24 hours 02/18/21 02/18/21 02/18/21 11:00 06:49 05:48 WBC RBC Hgb Hct MCV MCH MCHC RDW Plt Count MPV Neut % (Auto) Lymph % (Auto) [place] % (Auto) Eos % (Auto) Baso % (Auto) Neut # (Auto) Lymph # (Auto) [place] # (Auto) Eos # (Auto) Baso # (Auto) Nucleated RBC % (a uto) Nucleated RBCs # PT 38.90 H INR 3.80 H Sodium Potassium Chloride Carbon Dioxide Anion Gap BUN Creatinine GFR Calculation Glucose POC Glucose 295 H 159 H Calculated Osmolal ity Calcium 02/18/21 02/18/21 02/17/21 05:48 05:48 20:08 WBC 12.1 H RBC 6.00 H Hgb 10.8 L Hct 36.4 L MCV 60.7 L MCH 18.0 L MCHC 29.7 L RDW 18.9 H Plt Count 155 MPV 10.0 Neut % (Auto) 77.2 Lymph % (Auto) 11.3 [place] % (Auto) 8.8 Eos % (Auto) 1.2 Baso % (Auto) 0.7 Neut # (Auto) 9.32 H Lymph # (Auto) 1.4 [place] # (Auto) 1.1 H Eos # (Auto) 0.2 Baso # (Auto) 0.1 Nucleated RBC % (a uto) 0 Nucleated RBCs # 0.0 PT INR Sodium 137 Potassium 3.6 Chloride 103 Carbon Dioxide 26 Anion Gap 11.6 BUN 26 H Creatinine 0.9 GFR Calculation 84.2 L Glucose 164 H POC Glucose 256 H Calculated Osmolal ity 292 Calcium 9.2 02/17/21 17:24 WBC RBC Hgb Hct MCV MCH MCHC RDW Plt Count MPV Neut % (Auto) Lymph % (Auto) [place] % (Auto) Eos % (Auto) Baso % (Auto) Neut # (Auto) Lymph # (Auto) [place] # (Auto) Eos # (Auto) Baso # (Auto) Nucleated RBC % (a uto) Nucleated RBCs # PT INR Sodium Potassium Chloride Carbon Dioxide Anion Gap BUN Creatinine GFR Calculation Glucose POC Glucose 343 H Calculated Osmolal ity Calcium Vitals: Last Vital Signs Temp 98.0 F 02/18/21 11:05 Pulse 85 02/18/21 11:05 Resp 18 02/18/21 11:05 BP 128/82 02/18/21 11:05 Pulse Ox 95 02/18/21 11:05 Discharge Plan Discharge Patient Disposition: Home Condition: Stable Prescriptions: New ciprofloxacin HCl [Cipro] 500 mg tablet 500 mg PO BID Qty: 18 RF: 0 Continued tamsulosin 0.4 mg capsule 0.4 mg PO DAILY@06 RF: 0 citalopram [Celexa] 10 mg tablet 10 mg PO DAILY@06 RF: 0 nitroglycerin [Nitrostat] 0.4 mg tablet, sublingual 0.4 mg SUBLINGUAL Q5M PRN (Reason: Chest Pain) RF: 0 lisinopril 2.5 mg tablet 2.5 mg PO DAILY@06 RF: 0 furosemide 40 mg tablet See Rx Instructions .ROUTE .COMPLEX RF: 0 carvedilol 6.25 mg tablet See Rx Instructions .ROUTE .COMPLEX RF: 0 potassium chloride 20 mEq Tablet Extended Release 20 meq PO BID RF: 0 pantoprazole [Protonix] 40 mg Tablet,Delayed Release (Dr/Ec) 40 mg PO DAILY@06 RF: 0 Vitamin Plus Low Iron 27 mg iron- 1 mg tablet 1 tab PO DAILY@06 RF: 0 aspirin 81 mg Tablet,Delayed Release (Dr/Ec) 81 mg PO DAILY@06 RF: 0 atorvastatin 40 mg tablet 40 mg PO DAILY@19 RF: 0 prednisone 5 mg Tablet 7.5 mg PO DAILY@06 RF: 0 diltiazem HCl 120 mg capsule,extended release 24hr 120 mg PO DAILY@06 RF: 0 hydroxyzine pamoate 25 mg Capsule 25 mg PO BID PRN (Reason: Anxiety) RF: 0 Lantus Solostar U-100 Insulin 100 unit/mL (3 mL) insulin pen See Rx Instructions .ROUTE .COMPLEX RF: 0 Tylenol Extra Strength 500 mg Tablet 500 mg PO PRN RF: 0 Gas-X 80 mg Tablet,Chewable 80 mg PO PRN RF: 0 Discontinued leflunomide 20 mg tablet 20 mg PO DAILY@06 RF: 0 Hold Instructions: Resume on 10/13/20. amoxicillin 500 mg capsule 500 mg PO BID@,19 RF: 0 warfarin 10 mg Tablet See Rx Instructions .ROUTE .COMPLEX RF: 0 warfarin 7.5 mg Tablet See Rx Instructions .ROUTE .COMPLEX RF: 0 Discharge Orders: Discharge Order (Routine); Ordered 02/18/21 Ordered By: Mike Davenport Referrals: Faustina Gonzalez NP [Primary Care Provider] - 4-7 days Billy Berkowitz MD [Physician] - 2 weeks (Recurrent UTIs) Discharge Diet: Usual diet Discharge Activity: Increase activity as tolerated Activity Restrictions/Additional Instructions: Take all medicines as prescribed Do not take amoxicillin until course of ciprofloxacin is complete Hold rheumatoid arthritis medicine leflunomide until you complete your course of antibiotics for UTI Hold your Coumadin as INR is 3.8. Check INR tomorrow with your primary care provider. They will tell you when to resume Coumadin. Discharge Attestations Time Spent in Discharge Care*: greater than 30 min Status at Discharge: Cognitive status at discharge: cognitively intact , Behavioral status at discharge: cooperative , Quality Metrics Clinical Quality Measures During this hospital stay, did patient experience: None Coding Level of Care Code Acute Chg FW DC note Diagnoses Encephalopathy acute G93.40 Acute cystitis N30.00 Hematuria presence: without hematuria Atrial fibrillation I48.20 Atrial fibrillation type: unspecified chronic Dementia F03.90 Endocarditis I38
[2021-02-18 14:30] VITALS: BP 128/82; PULSE 85; RESP 18; TEMP 36.7; O2SAT 95
--- NOTE | 2021-02-18 15:11 | PC.NURSE ---
Patient and educated on discharge diagnosis, medications, and instructions. Patient and stated understanding. IV removed, tip of catheter intact.
--- NOTE | 2021-02-19 12:49 | P.EN_ITS ---
Event Note Event Note: Urine culture came back with ESBL. After reviewing sensitivity profiles in detail it is somewhat confusing why ciprofloxacin and levofloxacin have different sensitivity profiles. Therefore we will discontinue Cipro, and change to doxycycline 100 mg twice daily for 10 days. Patient also with rayray vated INR and is to continue to hold Coumadin, avoid falls, and follow-up with an INR Monday with primary care provider. Discharge planning notified so appropriate communication with family and pharmacy can occur.
--- NOTE | 2021-02-19 12:58 | PC.SOCIAL ---
Dr Davenport spoke to this nurse to update that patient urine bulture returned showing ESBL. He gave verbal order to stop the Cipro that was previously ordered at [facility] and start Doxycycline 100mg BID for 10 days. Unable to reach patient or spouse. Called Son and unable to reach. Called Brother and was able to have him reach out to on cell phone and provided this nurses number. returned call and we discussed the organism showing in the urine and that the treatment plan has been changed. Discussed new abx and to stop cipro. indicates he has taken the Doxycycline before and tolerated well. Request family pharmacy. Called above script into pharmacy and let them know Cipro has been dc'd. Verbally repeated back to confirm medication and will be #20 pills. INR was also checked today with a value of 4.8. Per PCP has followed up with them on this result and given further orders. No further needs determined and Dr Davenport was updated contact had been made. Per patient seems to be feeling well overall.
== END 2021-02-18 15:00 | disposition home or self-care (01) ==
LOC: ER 07:45 → MEDSURG 12:08
PROVIDERS: Admitting Provider Internal Medicine; Emergency Provider Family Medicine; PCP Nurse Practitioner Family; Visit Provider Internal Medicine
DX: G93.40 Encephalopathy, unspecified (principal); N30.00 Acute cystitis without hematuria; I48.20 Chronic atrial fibrillation, unspecified; F03.90 Unspecified dementia, unspecified severity, without behavioral disturbance, psychotic disturbance, mood disturbance, and anxiety; I38 Endocarditis, valve unspecified; Z79.2 Long term (current) use of antibiotics; Z79.01 Long term (current) use of anticoagulants; Z79.4 Long term (current) use of insulin; I48.91 Unspecified atrial fibrillation; I50.9 Heart failure, unspecified; Z79.52 Long term (current) use of systemic steroids; Z86.73 Personal history of transient ischemic attack (TIA), and cerebral infarction without residual deficits; E11.9 Type 2 diabetes mellitus without complications; E78.5 Hyperlipidemia, unspecified; E66.9 Obesity, unspecified; Z68.38 Body mass index [BMI] 38.0-38.9, adult; G47.33 Obstructive sleep apnea (adult) (pediatric); M06.9 Rheumatoid arthritis, unspecified; Z87.891 Personal history of nicotine dependence
CPT/HCPCS: 36415; 36416; 36600; 51798; 70450; 80048; 80051; 80053; 81001; 82330; 82805; 82962; 83605; 83690; 85025; 85610; 87040; 87077; 87086; 87186; 87493; 93005; 96365; 96367; 96372; 97116; 97161; 99285; G0378; J0744; J1815 ×2; J2543; J7512

== ENCOUNTER 2021-02-18 06:00 | Outpatient (RCR) | payer MEDICARE, OTHER, SELFPAY | END 2021-03-19 23:59 | disposition home or self-care (01) | LOC: MPT 06:00 | PROVIDERS: PCP Nurse Practitioner Family; Referring Provider Nurse Practitioner Family; Visit Provider Nurse Practitioner Family | DX: R26.81 Unsteadiness on feet (principal) | CPT/HCPCS: 97110; 97116 ==

== ENCOUNTER 2021-02-18 06:00 | Outpatient (RCR) | payer MEDICARE, OTHER, SELFPAY | END 2021-03-19 23:59 | disposition home or self-care (01) | LOC: MST 06:00 | PROVIDERS: PCP Nurse Practitioner Family; Referring Provider Psychiatry & Neurology Neurology; Visit Provider Psychiatry & Neurology Neurology | DX: I69.30 Unspecified sequelae of cerebral infarction (principal); R41.89 Other symptoms and signs involving cognitive functions and awareness | CPT/HCPCS: 92507 ==

== ENCOUNTER → 2021-02-19 09:51 | Outpatient (BNVA) | payer MEDICARE, OTHER, SELFPAY | PROVIDERS: PCP Nurse Practitioner Family; Referring Provider Internal Medicine; Visit Provider Internal Medicine | DX: I63.9 Cerebral infarction, unspecified (principal); I48.91 Unspecified atrial fibrillation | CPT/HCPCS: 85610 ==

== ENCOUNTER → 2021-03-04 14:48 | Outpatient (BNVA) | payer MEDICARE, OTHER, SELFPAY | PROVIDERS: PCP Nurse Practitioner Family; Visit Provider Nurse Practitioner Family | DX: N30.00 Acute cystitis without hematuria (principal); R33.9 Retention of urine, unspecified | CPT/HCPCS: 81003; 87077; 87086; 87184 ==

== ENCOUNTER 2021-03-07 06:20 | Inpatient (IN) | payer MEDICARE, OTHER, SELFPAY ==
[2021-03-07] VITALS (14 sets, daily range): BP systolic 101–153; BP diastolic 67–95; PULSE 78–108; RESP 16–30; TEMP 36.3–38.6; O2SAT 93–99; BMI 38.3
--- NOTE | 2021-03-07 06:31 | W.ED.AMS ---
HPI - Altered Mental Status General: Chief Complaint: Altered Mental Status Stated Complaint: UTI AND VERY AMS Time Seen by Provider: 03/07/21 06:28 History of Present Illness: HPI narrative: 65-year-old male comes in with a recurrent UTI and altered mental status. History also obtained from the patient's . She states he has been having trouble staying awake. Patient had been treated for a UTI and admitted here approximately 2 weeks ago. He was initially on ciprofloxacin but then changed to doxycycline. Patient was discharged. On he went to Dr. Berkowitz's office. He was found to have UTI again and restarted on doxycycline. The states he has been having chills and has been not acting good . She states he has been confused. He has been weak and having difficulty walking. Patient appears to be somnolent. She states he does have some dementia. Patient does wake to voice. He knows his name and that he is in the [facility]. He does not know what day to week it is. When asked if he is in pain he says yes but asked when where he says I do not know. His states he has not had any nausea or vomiting. She states he never did complain of pain or burning with urination. He has not had any diarrhea or constipation. She states that he has not complained of any new difficulty breathing. She states he had the chills but has not seemed to have a fever. Patient was admitted on 02/17/2021 discharged 02/18/2021. His discharge diagnosis included encephalopathy, acute cystitis, chronic atrial fibrillation, dementia, chronic endocarditis MD complaint: altered mental status, confusion, decreased responsiveness and weakness Severity: similar to previous episodes (Similar to when he has had UTIs.) Consistency of symptoms: Getting Worse Context: history of similar presentation and other (Similar to when he has had UTIs.) Review of Systems Const: Reports: chills, malaise and daytime sleepiness Card: Reports: irregular heart rhythm (History of chronic atrial fibrillation.); Denies: chest pain Resp: Reports: dyspnea (History of CHF.); Denies: productive cough, non-productive cough, wheezing or pain on inspiration GI: Denies: abdominal pain, nausea or vomiting : Denies: flank pain, dysuria or hematuria Musc: Denies: extremity pain or extremity swelling Neuro: Reports: difficulty walking (Secondary to weakness) Psych: Reports: sleeping more and other (Dementia) Endo: Reports: tired all the time [facility] ED PFSH: Medical History Aortic stenosis Atrial fibrillation Bilateral renal masses CHF (congestive heart failure) Chronic use of steroids CVA (cerebral vascular accident) Diabetes Dyslipidemia Edema 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 Essential hypertension Gout Hx of [place] spotted fever Ischemic cardiomyopathy Left ventricular hypertrophy Obesity AJAY (obstructive sleep apnea) Pulmonary HTN Recurrent UTI Renal calculi Rheumatoid arthritis Thalassemia Surgical History H/O lithotripsy S/P TAVR (transcatheter aortic valve replacement) Family History Mother Stroke Father Myocardial infarction Other CAD (coronary artery disease) Chronic kidney disease (CKD) Diabetes Hypertension Social History Smoking and tobacco status: former smoker Quit status (tobacco): has quit using tobacco Year quit tobacco: 2019 - Chewing Tobacco Former quit date comment: Hx of 1/2 can x 50 Years Second hand smoke exposure: No Smoking risk assessment/counseling performed?: No Alcohol intake: former Lives independently: Yes Household members: spouse Marital status: Current occupational status: retired and disabled History of recent travel: No Current gender identity: Male Physical Exam Narrative: EXAM NARRATIVE: Patient appears lethargic. He does wake to voice. He does follow commands. Const: COMMON NORMALS: no acute distress and well nourished EXAM LIMITATIONS: altered mental status (Lethargic) GENERAL APPEARANCE: cooperative, well developed, lethargic and appears older than stated age NUTRITIONAL APPEARANCE: obese ORIENTATION/CONSCIOUSNESS: Yes awake, Yes oriented to person, Yes oriented to place, Yes confused and Yes lethargic; not oriented to time HENMT: COMMON NORMALS: normocephalic HEAD & SCALP: normocephalic MOUTH: moist mucous membranes abnormal (Mildly dry oral mucosa.) Eye: COMMON NORMALS: Equal, round and reactive pupils present, EOMs intact bilaterally and conjunctivae normal GENERAL EYE: appearance normal, both eyes and all related structures and normal light reflex CONJUNCTIVA: Yes conjunctivae normal PUPIL: Yes Equal, round and reactive pupils present DIRECT OPHTHALMOSCOPY: Yes normal light reflex Neck/C-Spine: COMMON NORMALS: full ROM, no meningeal signs and no JVD Resp: COMMON NORMALS: No retractions and No use of accessory muscles; negative for clear to auscultation bilaterally EFFORT & INSPECTION: Yes able to speak in complete sentences, Yes symmetric chest movement, No respiratory distress and No labored AUSCULTATION: not clear to auscultation bilaterally, no crackles, no rales, no rhonchi, no wheezes and diminished lung sounds Cardio: COMMON NORMALS: no JVD; negative for regular rate RATE: abnormal rate RHYTHM: abnormal rhythm and other (Irregularly irregular) GI: COMMON NORMALS: Normal to inspection, nondistended, normoactive bowel sounds present (Morbidly obese), Soft to palpation and non-tender PALPATION: Yes Soft to palpation : COMMON NORMALS: Yes no CVA tenderness BLADDER/KIDNEY EXAM: Yes no CVA tenderness Back/Pelvis: COMMON NORMALS: no CVA tenderness Extremity: GENERAL: No calf tenderness OTHER: Trace of lower extremity edema. Neuro: COMMON NORMALS: moves all extremities and no focal motor deficits SENSORIUM/ORIENTATION: Yes oriented to person, Yes oriented to place, No oriented to time, Yes lethargic and Yes somnolent MENINGEAL SIGNS: Yes no meningeal signs GAIT: Yes Unable to assess gait Skin: RASHES: rashes noted Course Vital Signs: Vital signs: Vital Signs Temperature 97.7 F 03/07/21 06:40 Pulse Rate 81 03/07/21 07:40 Respiratory Rate 18 03/07/21 07:40 Blood Pressure 113/72 03/07/21 07:40 Pulse Oximetry 99 03/07/21 07:40 MDM - Altered Mental Status MDM Narrative: Medical decision making narrative: Discussed with Dr. Pugh, who has currently accepted this patient for admission. Lab Data: Labs: Lab Results 03/07/21 03/07/21 03/07/21 Range/Units 06:30 06:30 06:30 WBC 11.9 H (4.0-10.0) 10^3/ uL RBC 6.85 H (4.1-5.3) 10^6/u L Hgb 12.3 (11.7-16.6) g/dL Hct 41.7 L (42.0-52.0) % MCV 60.9 L (80-94) fL MCH 18.0 L (28.0-34.0) pg MCHC 29.5 L (30.0-36.0) g/dL RDW 19.9 H (12.1-15.1) % Plt Count 294 (130-400) 10^3/c mm MPV 10.5 H (7.4-10.4) fL Neut % (Auto) 80.4 % Lymph % (Auto) 9.2 % [place] % (Auto) 7.9 % Eos % (Auto) 0.9 % Baso % (Auto) 0.8 % Neut # (Auto) 9.60 H (1.8-7.7) 10^3/u L Lymph # (Auto) 1.1 (0.8-4.8) 10^3/u L [place] # (Auto) 0.9 (0.2-0.9) 10^3/u L Eos # (Auto) 0.1 (0.0-0.8) 10^3/u L Baso # (Auto) 0.1 (0.0-0.1) 10^3/u L Nucleated RBC % (a uto) 0.3 % Nucleated RBCs # 0.0 /100WBC Sodium 140 (136-145) mmol/L Potassium 4.3 (3.5-5.1) mmol/L Chloride 102 (98-107) mmol/L Carbon Dioxide 27 (22-29) mmol/L Anion Gap 15.3 (5-19) BUN 34 H (8-23) mg/dL Creatinine 0.9 (0.7-1.2) mg/dL GFR Calculation 84.2 L (90-130) mL/min Glucose 106 (65-115) mg/dL Calculated Osmolal ity 298 H (285-295) mOsm/k g Lactate 2.6 H (0.5-2.2) mmol/L Calcium 9.1 (8.5-10.5) mg/dL Magnesium 1.9 (1.7-2.3) mg/dL Total Bilirubin 0.7 (0.15-1.2) mg/dL AST 21 (0-40) U/L ALT 24 (0-41) U/L Alkaline Phosphata se 78 (40-130) IU/L NT-Pro-B Natriuret Pep 1070 H (0-125) pg/mL Total Protein 6.5 L (6.6-8.7) g/dL Albumin 3.8 (3.5-5.2) g/dL Globulin 2.7 (1.3-4.6) g/dL TSH (0.27-4.20) uIU/ mL Urine Color (Yellow) Urine Appearance (CLEAR) Urine pH (5-7) Ur Specific Gravit y (1.005-1.030) Urine Protein (Negative) Urine Glucose (UA) (Normal) Urine Ketones (Negative) Urine Blood (Negative) Urine Nitrate (Negative) Urine Bilirubin (Negative) Urine Urobilinogen (Negative) mg/dL Ur Leukocyte Michelle ase (Negative) Urine RBC (0-2) /hpf Urine WBC (0-5) /hpf Ur Squamous Epith Cells (0-5) /hpf Amorphous Sediment Urine Bacteria (NONE) /hpf 03/07/21 03/07/21 Range/Units 06:30 06:47 WBC (4.0-10.0) 10^3/ uL RBC (4.1-5.3) 10^6/u L Hgb (11.7-16.6) g/dL Hct (42.0-52.0) % MCV (80-94) fL MCH (28.0-34.0) pg MCHC (30.0-36.0) g/dL RDW (12.1-15.1) % Plt Count (130-400) 10^3/c mm MPV (7.4-10.4) fL Neut % (Auto) % Lymph % (Auto) % [place] % (Auto) % Eos % (Auto) % Baso % (Auto) % Neut # (Auto) (1.8-7.7) 10^3/u L Lymph # (Auto) (0.8-4.8) 10^3/u L [place] # (Auto) (0.2-0.9) 10^3/u L Eos # (Auto) (0.0-0.8) 10^3/u L Baso # (Auto) (0.0-0.1) 10^3/u L Nucleated RBC % (a uto) % Nucleated RBCs # /100WBC Sodium (136-145) mmol/L Potassium (3.5-5.1) mmol/L Chloride (98-107) mmol/L Carbon Dioxide (22-29) mmol/L Anion Gap (5-19) BUN (8-23) mg/dL Creatinine (0.7-1.2) mg/dL GFR Calculation (90-130) mL/min Glucose (65-115) mg/dL Calculated Osmolal ity (285-295) mOsm/k g Lactate (0.5-2.2) mmol/L Calcium (8.5-10.5) mg/dL Magnesium (1.7-2.3) mg/dL Total Bilirubin (0.15-1.2) mg/dL AST (0-40) U/L ALT (0-41) U/L Alkaline Phosphata se (40-130) IU/L NT-Pro-B Natriuret Pep (0-125) pg/mL Total Protein (6.6-8.7) g/dL Albumin (3.5-5.2) g/dL Globulin (1.3-4.6) g/dL TSH 1.06 (0.27-4.20) uIU/ mL Urine Color Dark yellow (Yellow) Urine Appearance Hazy A (CLEAR) Urine pH 5 (5-7) Ur Specific Gravit y 1.010 (1.005-1.030) Urine Protein Neg (Negative) Urine Glucose (UA) Norm (Normal) Urine Ketones Negative (Negative) Urine Blood 3+ H (Negative) Urine Nitrate Positive H (Negative) Urine Bilirubin Neg (Negative) Urine Urobilinogen Norm (Negative) mg/dL Ur Leukocyte Michelle ase 2+ H (Negative) Urine RBC 15-25 H (0-2) /hpf Urine WBC >100 H (0-5) /hpf Ur Squamous Epith Cells None (0-5) /hpf Amorphous Sediment Not Reportable Urine Bacteria 3+ H (NONE) /hpf Discharge Plan Discharge Patient Disposition: Admitted As Inpatient Clinical Impression: Acute cystitis Qualifiers: Hematuria presence: with hematuria Qualified Code(s): N30.01 - Acute cystitis with hematuria Altered mental status Qualifiers: Altered mental status type: unspecified Qualified Code(s): R41.82 - Altered mental status, unspecified Condition: Stable Coding Level of Care Code ED [employer] for [facility] Fwd Exam Comprehensive
--- NOTE | 2021-03-07 06:42 | XRR_ITS ---
PROCEDURE INFORMATION: Exam: XR Chest Exam date and time: 03/07/2021 7:03 AM Age: 65 years old Clinical indication: Other: altered mental status; Additional info: Chf, AMS TECHNIQUE: Imaging protocol: XR of the chest. Views: Frontal portable upright view of the chest. COMPARISON: CR XR chest 1V portable [id number] 01/20/2021 2:50 PM FINDINGS: Lungs: Mild left lateral basilar subsegmental atelectasis. The lungs are otherwise peripherally clear bilaterally. Pleural spaces: No pleural effusion. No pneumothorax. Heart/Mediastinum: The heart is normal in size and contour. LPO rotation elongates the cardiac silhouette, exaggerating the heart size. The pulmonary vasculature is normal. Mediastinum: Stable. Bones/joints: Stable. XR/XR chest 1V portable [id number] IMPRESSION: Mild left lateral basilar subsegmental atelectasis.
--- NOTE | 2021-03-07 06:51 | PC.NURSE ---
Onset this morning according to . They got up, used the bathroom. stated Ry blood sugar was low, they ate a little. stated he started getting worse . Stated he gets septic fast
[2021-03-07 06:52] LABS: Basophils # 0.1 10^3/uL (0.0-0.1); Basophils % 0.8 %; Eosinophils # 0.1 10^3/uL (0.0-0.8); Eosinophils % 0.9 %; Hematocrit 41.7 % (42.0-52.0); Hemoglobin 12.3 g/dL (11.7-16.6); Lymphocytes # 1.1 10^3/uL (0.8-4.8); Lymphocytes % 9.2 %; Mean Corpuscular HGB Conc 29.5 g/dL (30.0-36.0); Mean Corpuscular Volume 60.9 fL (80-94); Mean Platelet Volume 10.5 fL (7.4-10.4); Monocytes # 0.9 10^3/uL (0.2-0.9); Monocytes % 7.9 %; Neutrophils % 80.4 %; Nucleated Red Blood Cells % 0.3 %; Platelet Count 294 10^3/cmm (130-400); Red Blood Count 6.85 10^6/uL (4.1-5.3); Red Cell Distribution Width 19.9 % (12.1-15.1); White Blood Count 11.9 10^3/uL (4.0-10.0)
[2021-03-07 07:18] LABS: Alanine Aminotransferase 24 U/L (0-41); Albumin Level 3.8 g/dL (3.5-5.2); Alkaline Phosphatase 78 IU/L (40-130); Anion Gap 15.3 (5-19); Aspartate Amino Transferase 21 U/L (0-40); Blood Urea Nitrogen 34 mg/dL (8-23); Calcium 9.1 mg/dL (8.5-10.5); Carbon Dioxide 27 mmol/L (22-29); Chloride 102 mmol/L (98-107); Globulin 2.7 g/dL (1.3-4.6); Glomerular Filtration Rate 84.2 mL/min (90-130); Glucose 106 mg/dL (65-115); Magnesium 1.9 mg/dL (1.7-2.3); NT Pro B Type Natriuretic Pept 1070 pg/mL (0-125); Osmolality Calculated 298 mOsm/kg (285-295); Potassium 4.3 mmol/L (3.5-5.1); Sodium 140 mmol/L (136-145); Total Bilirubin 0.7 mg/dL (0.15-1.2); Total Protein 6.5 g/dL (6.6-8.7)
[2021-03-07 07:22] LABS: Lactate (Lactic Acid level) 2.6 mmol/L (0.5-2.2)
[2021-03-07 07:47] LABS: Add Urine Microscopic? YES; Bilirubin Urine Neg (Negative); Blood Urine 3+ (Negative); Glucose Urine UA Norm (Normal); Ketones Urine Negative (Negative); Leukocyte Esterase Urine 2+ (Negative); Nitrate Urine Positive (Negative); Protein Urine Neg (Negative); Urine Appearance Hazy (CLEAR); Urine Color Dark Yellow (Yellow); Urobilinogen Urine Norm (Negative); pH Urine 5 (5-7)
[2021-03-07 07:48] LABS: Add Urine Culture? Yes; Bacteria Urine 3+ /hpf; RBC Urine 15-25 /hpf (0-2); WBC Urine >100 /hpf (0-5)
--- NOTE | 2021-03-07 08:45 | ECG_ITS ---
[facility] Test Date: 2021-03-07 Pat Name: Ry Loyd Department: Room: 257 Gender: Male Food Quality Tester: : 1955 Requested By: Rajeev Zepeda Order Number: [id number] Morena MD: Cassy Monreal M.D. Measurements Intervals [place] Rate: 95 P: MI: QRS: -33 QRSD: 97 T: 138 QT: 339 QTc: 428 Interpretive Statements ATRIAL FIBRILLATION LEFT AXIS DEVIATION [QRS AXIS < -30] MODERATE VOLTAGE CRITERIA FOR LVH, CONSIDER NORMAL VARIANT [MEETS CRITERIA IN ONE OF: R(aVL), S(V1), R(V5), R(V5/V6)+S(V1)] ST DEVIATION AND MODERATE T-WAVE ABNORMALITY, CONSIDER LATERAL ISCHEMIA [-0.1+ mV T WAVE IN I/aVL/V5/V6] Compared to ECG 02/17/2021 07:56:55 No significant changes Electronically Signed On 03-07-2021 10:47:50 CDT by Cassy Monreal M.D. [id number] f
[2021-03-07 08:47] LABS: Thyroid Stimulating Hormone 1.06 uIU/mL (0.27-4.20)
[2021-03-07] MEDS: sodium chloride 0.9% 1,000 ML 100 ML IV ×2 (09:46→20:16)
[2021-03-07 09:59] LABS: INR 2.38 (0.8-1.2)
[2021-03-07 12:00] LABS: Lactate (Lactic Acid level) 1.8 mmol/L (0.5-2.2)
[2021-03-07] MEDS: acetaminophen 325 mg Tablet 650 MG PO (15:50)
[2021-03-07 16:58] LABS: Glucose Point of Care 174 mg/dL (70-110)
--- NOTE | 2021-03-07 19:10 | PC.NURSE ---
Report to Binta PATRICIA at this time.
--- NOTE | 2021-03-07 19:43 | P.HP_ITS ---
Providers/Chief Complaint Admitting Physician: Di Pugh MD Primary Care Provider: Faustina Gonzalez NP Chief Complaint: UTI AND VERY AMS History of Present Illness Ry Loyd is a 65 year old male with a history of recurrent urinary tract infections most recently with Klebsiella ESBL who presents with alteration of mental status. This is his usual presentation of acute urinary tract infection. He has recently been on a course of Cipro and doxycycline for this a nd has had recurrence. He follows with Dr. Berkowitz on an outpatient basis. He has multiple comorbid medical conditions as described below. This includes being on chronic immunosuppressive therapy and chronic prednisone. He does have known history of renal calculi and renal masses. This month he completed a year-long course of amoxicillin for chronic endocarditis with viridans strep. History is obtained predominantly from his . He is able to let me know that he does not feel well but does not answer any other questions. He does have some dementia. He was okay yesterday but today just very lethargic. He has not had any vomiting or diarrhea. No hematuria that is aware of. He is incontinent. Used when she is able to arouse him than usual. No specific fevers documented. Work-up in the emergency room shows 3+ blood, positive nitrites and leukocyte esterase, 15-25 red blood cells and greater than 100,000 white blood cells per high-powered field. 3+ bacteria is noted. He had mild elevation in lactic acid at 2.6 that corrected to 1.8, leukocytosis based on recent cultures and previously utilize antibiotics, he was given Primaxin in the emergency room and is being admitted for further evaluation and treatment. Pressure and heart rate have been stable thus far. Review of Systems General: Reports: ROS unobtainable due to mental status Medications/Allergies Home Medications Medication Instructions Recorded Confirmed Last Taken Type citalopram 10 mg tablet 10 mg PO DAILY@06 tab 12/03/19 03/07/21 03/06/21 History nitroglycerin 0.4 mg sublingual 0.4 mg SUBLINGUAL Q5M PRN 12/03/19 03/07/21 01/16/20 History tablet tamsulosin 0.4 mg capsule 0.4 mg PO DAILY@06 cap 12/03/19 03/07/21 03/06/21 History pantoprazole [Protonix] 40 mg PO DAILY@06 12/25/1903/07/21 04/18/21 History potassium chloride 20 meq PO BID 12/25/19 03/07/21 03/06/21 History lisinopril 2.5 mg tablet 2.5 mg PO DAILY@06/09/20 03/07/21 03/06/21 History Vitamin Plus Low Iron 1 tab PO DAILY@10/03/20 03/07/21 03/06/21 History aspirin 81 mg PO DAILY@10/10/20 03/07/21 03/06/21 History carvedilol 6.25 mg tablet 9.375 mg PO BID tab 10/30/20 03/07/21 03/06/21 History furosemide 40 mg tablet 40 mg PO DAILY tab 10/30/20 03/07/21 03/06/21 History Lantus Solostar U-100 Insulin 52 unit SUBCUT BID 02/17/21 03/07/21 03/06/21 History acetaminophen [Tylenol Extra 500 mg PO Q6H PRN 02/17/21 03/07/21 Unknown History Strength] atorvastatin 40 mg PO DAILY@02/17/21 03/07/21 03/06/21 History diltiazem HCl 120 mg PO DAILY@02/17/21 03/07/21 03/06/21 History hydroxyzine pamoate 25 mg PO BID PRN 02/17/21 03/07/21 Unknown History prednisone 7.5 mg PO DAILY@02/17/21 03/07/21 03/06/21 History simethicone 80 mg PO DAILY PRN 02/17/21 03/07/21 02/16/21 History doxycycline hyclate 100 mg tablet 100 mg PO BID #60 tab 03/04/21 03/07/21 03/06/21 Rx warfarin 10 mg tablet 10 mg PO DAILY 03/04/21 03/07/21 03/05/21 History warfarin 7.5 mg tablet 7.5 mg PO DAILY 03/04/21 03/07/21 03/06/21 History Allergies Allergy/AdvReac Type Severity Reaction Status Date / Time ceftriaxone [From Rocephin] Allergy Intermediate ALGY-Difficulty Verified 03/04/21 14:13 Breathing levofloxacin [From Levaquin] Allergy Mild ADR-Itching Verified 03/04/21 14:13 iodine Allergy Unknown Unknown Verified 03/04/21 14:13 clopidogrel [From Plavix] AdvReac Intermediate Unknown Verified 03/04/21 14:13 PFSH Acute PFSH: Medical History (Updated 03/07/21 @ 23:52 by Di Pugh MD) Aortic stenosis Atrial fibrillation Bilateral renal masses CHF (congestive heart failure) EF 45-50% Chronic use of steroids CVA (cerebral vascular accident) Diabetes Dyslipidemia Edema Endocarditis chronic viridans endocarditis, 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 that looks to have ended early 02/2021 Essential hypertension Gout Hx of [place] spotted fever Ischemic cardiomyopathy Left ventricular hypertrophy Obesity AJAY (obstructive sleep apnea) Pulmonary HTN Recurrent UTI Renal calculi Rheumatoid arthritis Thalassemia Surgical History (Updated 03/07/21 @ 23:25 by Di Pugh MD) H/O lithotripsy S/P TAVR (transcatheter aortic valve replacement) (~2017) Family History Mother Stroke Father Myocardial infarction Other CAD (coronary artery disease) Chronic kidney disease (CKD) Diabetes Hypertension Social History (Updated 03/07/21 @ 19:48 by Di Pugh MD) Smoking and tobacco status: former smoker Quit status (tobacco): has quit using tobacco Year quit tobacco: 2019 - Chewing Tobacco Former quit date comment: Hx of 1/2 can x 50 Years Second hand smoke exposure: No Smoking risk assessment/counseling performed?: No Alcohol intake: former Lives independently: Yes Household members: spouse Marital status: Current occupational status: retired and disabled Current gender identity: Male Vitals/I&O/Wt Last Vital Signs Temp 101.5 F H 03/07/21 15:31 Pulse 93 03/07/21 15:31 Resp 18 03/07/21 15:31 BP 122/67 03/07/21 15:31 Pulse Ox 96 03/07/21 15:31 03/07/21 03/07/21 03/07/21 06:59 14:59 22:59 Intake Total 340 / 340 480 / 820 Balance 340 / 340 480 / 820 Weight last 48 hrs Weight 124.738 kg Physical Exam Narrative: EXAM NARRATIVE: Patient is lethargic but will briefly answer simple questions. Lying in bed laying on his left side. Ill-appearing. Pupils are reactive. Oropharynx with dry mucous membranes. Neck is large but supple. Lungs are clear to auscultation although with some shallow respirations. No ra les or wheezes are noted. Cardiovascular exam reveals an irregular rhythm. Abdomen is soft, obese with hyperpigmentation along the left lateral side that is chronic. Positive bowel sounds. In the right upper quadrant he has bruising from previous Lovenox injections. Extremities with 1+ edema. Skin is dry. He does have some ecchymotic areas to the left inner calf and chronic stasis changes to both distal extremities. Capillary refill is 2 to 3 seconds. No mottling. Face is symmetric. Not very cooperative with her logic examination otherwise but no gross deficits appreciated in current positioning. Data : 03/07/21 06:30 03/07/21 06:30 Micro: Microbiology 03/07/21 06:30 Blood Culture - Preliminary Blood SPECIMEN COLLECTED 03/07/21 06:30 Blood Culture - Preliminary Blood SPECIMEN COLLECTED A&P Assessment and plan (1) Encephalopathy acute: Secondary to urinary tract infection Status: Acute (2) Recurrent UTI: Presently acute. Associated with fever, mild leukocytosis, encephalopathy and mild lactic acid elevation which responded to fluids. Consistent with sepsis syndrome without septic shock. Recent cultures have demonstrated ESBL Klebsiella. Has been treated with Cipro and then doxycycline. Has had recurren t urinary tract infections for quite some time. Has had known renal calculi and renal masses, follows with Dr. Berkowitz next appointment scheduled on March 25 Status: Chronic (3) Chronic use of steroids: Due to rheumatoid arthritis Status: Chronic (4) Rheumatoid arthritis: Has been on leflunomide although it has been held with infections of late Status: Chronic (5) Atrial fibrillation: Presently rate controlled Status: Chronic (6) Chronic anticoagulation: Coumadin only with therapeutic INR Status: Chronic (7) Congestive heart failure: Injection 45 to 50%, chronically on diuretics and GRAZYNA inhibitor Status: Chronic (8) Endocarditis: History of chronic endocarditis with viridans strep, status post 1 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 which completed earlier this month Status: Chronic (9) Diabetes: Chronically on insulin Status: Chronic Qualifiers: Diabetes mellitus type: type 2 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 Das in the past Status: Chronic (11) Thalassemia: MCV 60, hemoglobin 12 Status: Chronic (12) Dementia: Status: Chronic (13) Body mass index [BMI] 38.0-38.9, adult: Status: Chronic Additional A&P Information Patient admission Primaxin IV, follow-up pending cultures Repeat lactic acid normalized If does not respond to treatment quickly, consider renal imaging We will give some fluids overnight tonight at a low rate Home Lasix and potassium are presently held; will need resumed Telemetry monitoring Continue aspirin, atorvastatin, carvedilol, diltiazem, lisinopril Continue home prednisone at 7.5 mg p.o. daily Monitor closely for need for stress dose steroids Continue home Coumadin although I have opted for his lower dose every day in anticipation of increase with antibiotic therapy Daily INR while on antibiotics Continue home Flomax On chronic PPI Telemetry monitoring at least initially Monitor closely for acute decompensation Appropriate VTE prophylaxis Supportive care otherwise Plans were discussed with patient's Full code Attestations Medical Necessity Statement*: Anticipated stay greater than 2 midnights in a gentleman presenting with acute encephalopathy secondary to recurrent UTI associated with some early sepsis findings. Has been on multiple courses of antibiotics lately orally and I suspect that he may need IV treatment presently. Coding Level of Care Code Acute Vp Of [employer] for [facility] Fwd Diagnoses Encephalopathy acute G93.40 Recurrent UTI N39.0 Chronic use of steroids Rheumatoid arthritis M06.9 Atrial fibrillation I48.91 Chronic anticoagulation Z79.01 Congestive heart failure I50.9 Endocarditis I38 Diabetes E11.22; N18.2; Z79.4 Diabetes mellitus type: type 2 Diabetes mellitus halfway insulin use: with halfway use Diabetes mellitus complication status: with kidney complications Diabetes mellitus complication detail: with chronic kidney disease Chronic kidney disease stage: stage 2 (mild) AJAY (obstructive sleep apnea) G47.33 Thalassemia D56.9 Dementia F03.90 Body mass index [BMI] 38.0-38.9, adult Z68.38
[2021-03-07 21:25] LABS: Glucose Point of Care 151 mg/dL (70-110)
[2021-03-07] MEDS: insulin glargine 100 units/1 mL 10 UNIT SUBCUT (22:03)
[2021-03-08] VITALS (7 sets, daily range): BP systolic 102–163; BP diastolic 68–87; PULSE 55–98; RESP 18–20; TEMP 36.3–36.6; O2SAT 90–99
[2021-03-08 05:44] LABS: Basophils # 0.1 10^3/uL (0.0-0.1); Basophils % 0.8 %; Eosinophils # 0.1 10^3/uL (0.0-0.8); Eosinophils % 1.5 %; Hematocrit 38.7 % (42.0-52.0); Hemoglobin 11.4 g/dL (11.7-16.6); Lymphocytes # 1.1 10^3/uL (0.8-4.8); Lymphocytes % 11.6 %; Mean Corpuscular HGB Conc 29.5 g/dL (30.0-36.0); Mean Corpuscular Hemoglobin 18.1 pg (28.0-34.0); Mean Corpuscular Volume 61.4 fL (80-94); Mean Platelet Volume 10.6 fL (7.4-10.4); Monocytes # 0.9 10^3/uL (0.2-0.9); Monocytes % 9.3 %; Neutrophils # 7.33 10^3/uL (1.8-7.7); Nucleated Red Blood Cells % 0.2 %; Platelet Count 220 10^3/cmm (130-400); Red Cell Distribution Width 19.5 % (12.1-15.1); White Blood Count 9.7 10^3/uL (4.0-10.0)
[2021-03-08 05:57] LABS: INR 1.92 (0.8-1.2)
[2021-03-08] MEDS: sodium chloride 0.9% 1,000 ML 50 ML IV (06:02)
[2021-03-08] MEDS: pantoprazole DR 40 mg Tablet PO (06:03)
[2021-03-08] MEDS: dilTIAZem ER (24HR) 120 mg Capsule PO (06:03)
[2021-03-08] MEDS: predniSONE 5 mg Tablet 7.5 MG PO (06:03)
[2021-03-08] MEDS: aspirin 81 mg EC Tablet PO (06:03)
[2021-03-08] MEDS: lisinopril 2.5 mg Tablet PO (06:03)
[2021-03-08] MEDS: tamsulosin 0.4 mg Capsule PO (06:04)
[2021-03-08 06:12] LABS: Anion Gap 10.9 (5-19); Blood Urea Nitrogen 21 mg/dL (8-23); Calcium 8.6 mg/dL (8.5-10.5); Carbon Dioxide 26 mmol/L (22-29); Chloride 107 mmol/L (98-107); Glomerular Filtration Rate 96.4 mL/min (90-130); Glucose 175 mg/dL (65-115); Osmolality Calculated 297 mOsm/kg (285-295); Potassium 3.9 mmol/L (3.5-5.1); Sodium 140 mmol/L (136-145)
[2021-03-08 07:25] LABS: Glucose Point of Care 175 mg/dL (70-110)
[2021-03-08] MEDS: citalopram 20 mg Tablet 10 MG PO (07:58)
[2021-03-08] MEDS: carvedilol 6.25 mg Tablet 9.375 MG PO ×2 (07:58→17:25)
[2021-03-08] MEDS: insulin glargine 100 units/1 mL 10 UNIT SUBCUT ×2 (07:59→21:45)
--- NOTE | 2021-03-08 08:59 | US_ITS ---
WS: [id number] ULTRASOUND RENAL TECHNIQUE: Ultrasound examination of both kidneys. CLINICAL INFORMATION: uti, evaluate for obstructive uropathy COMPARISON: None. FINDINGS: Technically difficult examination. Incidental simple and septated bilateral renal cysts. Small hypoechoic lesion measuring 1.1 x 1.2 x 1.1 cm not definitely entirely cystic but difficult to further characterize. This can be followed up with CT abdomen pelvis. Right kidney is normal in size and appearance. Echogenicity: Normal. Cortical thickness: 1.5 cm; Normal. Hydronephrosis: None. Perinephric fluid: None. Right kidney measures: 12.7 cm x 5.3 cm x 5.9 cm. LEFT: Left kidney is normal in size and appearance. Echogenicity: Normal. Cortical thickness: 2.5 cm; Normal. Hydronephrosis: None. Perinephric fluid: None. Left kidney measures: 13.1 cm x 7.7 cm x 8.5 cm. Normal visualized aorta. Normal bladder US/US renal BI* [id number] IMPRESSION: 1. No hydronephrosis in either kidney. 2. Incidental simple and septated bilateral renal cysts. 3. Small hypoechoic lesion measuring 1.1 x 1.2 x 1.1 cm not definitely entirel y cystic but difficult to further characterize. This can be followed up with CT abdomen pelvis. 4. Normal bladder
--- NOTE | 2021-03-08 15:09 | PM.PN ---
Subjective Subjective: Interval history: This morning patient was examined, he is alert to person, place, to the year, not to the month, he does follow commands, is also present, he has no complaints, he did eat his breakfast this morning, no fevers, chills, no nausea, no vomiting Vitals/I&O/Wt Last Vital Signs Temp 97.4 F L 03/08/21 11:37 Pulse 55 L 03/08/21 11:37 Resp 18 03/08/21 11:37 BP 102/71 03/08/21 11:37 Pulse Ox 99 03/08/21 11:37 03/08/21 03/08/21 03/08/21 06:59 14:59 22:59 Intake Total 1250 / 3170 700 / 700 Balance 1250 / 3170 700 / 700 Weight last 48 hrs Weight 124.738 kg Physical Exam Const: COMMON NORMALS: no acute distress and alert ORIENTATION/CONSCIOUSNESS: Yes oriented to person and Yes oriented to place; not oriented to time HENMT: COMMON NORMALS: normocephalic HEAD & SCALP: normocephalic Neck/C-Spine: COMMON NORMALS: no JVD Resp: COMMON NORMALS: normal respiratory effort, No retractions, No use of accessory muscles and clear to auscultation bilaterally AUSCULTATION: clear to auscultation bilaterally Cardio: COMMON NORMALS: no JVD, regular rate, regular rhythm, S1 normal heart sound present and S2 normal heart sound present RATE: regular rate RHYTHM: regular rhythm HEART SOUNDS: S1 normal heart sound present and S2 normal heart sound present GI: COMMON NORMALS: Normal to inspection, nondistended, normoactive bowel sounds present, Soft to palpation, non-tender, No hepatosplenomegaly present, no masses and no bruits PALPATION: Yes Soft to palpation and Yes No hepatosplenomegaly present Extremity: COMMON NORMALS: capillary refill normal, no clubbing, cyanosis or edema, no calf tenderness and no pedal edema Neuro: SENSORIUM/ORIENTATION: Yes alert, Yes oriented to person, Yes oriented to place and No oriented to time Psych: COMMON NORMALS: mental status grossly normal Data : 03/08/21 05:18 03/08/21 05:18 Micro: Microbiology 03/07/21 06:47 Urine Culture - Preliminary Urine,Clean Catch Gram Negative Rods 03/07/21 06:30 Blood Culture - Preliminary Blood NEGATIVE TO DATE 03/07/21 06:30 Blood Culture - Preliminary Blood NEGATIVE TO DATE A&P Assessment and plan (1) Encephalopathy acute: Secondary to urinary tract infection Status: Acute (2) Recurrent UTI: Presently acute. Associated with fever, mild leukocytosis, encephalopathy and mild lactic acid elevation which responded to fluids. Consistent with sepsis syndrome without septic shock. Recent cultures have demonstrated ESBL Klebsiella. Has been treated with Cipro and then doxycycline. Has had recurrent urinary tract infections for quite some time. Has had known renal calculi and renal masses, follows with Dr. Berkowitz next appointment scheduled on March 25 Status: Chronic (3) Chronic use of steroids: Due to rheumatoid arthritis Status: Chronic (4) Rheumatoid arthritis: Has been on leflunomide although it has been held with infections of late Status: Chronic (5) Atrial fibrillation: Presently rate controlled Status: Chronic (6) Chronic anticoagulation: Coumadin only with therapeutic INR Status: Chronic (7) Congestive heart failure: Injection 45 to 50%, chronically on diuretics and GRAZYNA inhibitor Status: Chronic (8) Endocarditis: History of chronic endocarditis with viridans strep, status post 1 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 which completed earlier this month Status: Chronic (9) Diabetes: Chronically on insulin Status: Chronic Qualifiers: Diabetes mellitus type: type 2 Diabetes mellitus assisted insulin use: with manager long term care use Diabetes mellitus complication status: with kidney complications Diabetes mellitus complication detail: with chronic kidney disease Chronic kidney disease stage: stage 2 (mild) Qualified Code(s): E11.22 - Type 2 diabetes mellitus with diabetic chronic kidney disease; N18.2 - Chronic kidney disease, stage 2 (mild); 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 Das in the past Status: Chronic (11) Thalassemia: MCV 60, hemoglobin 12 Status: Chronic (12) Dementia: Status: Chronic (13) Body mass index [BMI] 38.0-38.9, adult: Status: Chronic Additional A&P Information Inpatient mission Mentation has significantly improved, follows commands, alert oriented x2, does tell me that he has some degree of dementia Primaxin IV, culture so far show gram-negative, will order renal ultrasound to evaluate for obstructive uropathy Repeat lactic acid normalized Stop fluids Home Lasix and potassium are presently held; will need resumed Telemetry monitoring Continue aspirin, atorvastatin, carvedilol, diltiazem, lisinopril Continue home prednisone at 7.5 mg p.o. daily Monitor closely for need for stress dose steroids Continue home Coumadin although I have opted for his lower dose every day in anticipation of increase with antibiotic therapy Daily INR while on antibiotics Continue home Flomax On chronic PPI Telemetry monitoring at least initially Monitor closely for acute decompensation Appropriate VTE prophylaxis Supportive care otherwise Plans were discussed with patient's Full code Attestations Medical Necessity Statement*: Patient requires hospitalization for acute encephalopathy, recurrent UTI, concerning for ESBL Coding Level of Care Code Acute [employer] 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 [employer] Fw Diagnoses Encephalopathy acute G93.40 Recurrent UTI N39.0 Chronic use of steroids Rheumatoid arthritis M06.9 Atrial fibrillation I48.91 Chronic anticoagulation Z79.01 Congestive heart failure I50.9 Endocarditis I38 Diabetes E11.22; N18.2; Z79.4 Diabetes mellitus type: type 2 Diabetes mellitus manager long term care insulin use: with manager long term care use Diabetes mellitus complication status: with kidney complications Diabetes mellitus complication detail: with chronic kidney disease Chronic kidney disease stage: stage 2 (mild) AJAY (obstructive sleep apnea) G47.33 Thalassemia D56.9 Dementia F03.90 Body mass index [BMI] 38.0-38.9, adult Z68.38
[2021-03-08 16:57] LABS: Glucose Point of Care 253 mg/dL (70-110)
[2021-03-08] MEDS: atorvastatin 40 mg Tablet PO (17:25)
--- NOTE | 2021-03-08 19:16 | PC.NURSE ---
Report to Emmanuel PATRICIA at this time.
[2021-03-08 21:28] LABS: Glucose Point of Care 242 mg/dL (70-110)
[2021-03-09] VITALS: BP 102/55; PULSE 80; RESP 18; TEMP 36.4; O2SAT 96
[2021-03-09 03:41] VITALS: BP 115/70; PULSE 81; RESP 18; TEMP 36.4; O2SAT 95
[2021-03-09 06:18] LABS: Basophils # 0.1 10^3/uL (0.0-0.1); Basophils % 1.1 %; Eosinophils # 0.2 10^3/uL (0.0-0.8); Eosinophils % 3.2 %; Hemoglobin 10.2 g/dL (11.7-16.6); Lymphocytes # 1.2 10^3/uL (0.8-4.8); Lymphocytes % 16.2 %; Mean Corpuscular Hemoglobin 18.2 pg (28.0-34.0); Mean Corpuscular Volume 60.7 fL (80-94); Mean Platelet Volume 10.5 fL (7.4-10.4); Monocytes # 0.9 10^3/uL (0.2-0.9); Monocytes % 12.2 %; Neutrophils # 4.98 10^3/uL (1.8-7.7); Neutrophils % 66.6 %; Nucleated Red Blood Cells % 0 %; Platelet Count 197 10^3/cmm (130-400); White Blood Count 7.5 10^3/uL (4.0-10.0)
[2021-03-09] MEDS: dilTIAZem ER (24HR) 120 mg Capsule PO (06:23)
[2021-03-09] MEDS: tamsulosin 0.4 mg Capsule PO (06:23)
[2021-03-09] MEDS: lisinopril 2.5 mg Tablet PO (06:23)
[2021-03-09] MEDS: predniSONE 5 mg Tablet 7.5 MG PO (06:25)
[2021-03-09] MEDS: aspirin 81 mg EC Tablet PO (06:25)
[2021-03-09] MEDS: pantoprazole DR 40 mg Tablet PO (06:25)
[2021-03-09 06:27] LABS: INR 1.82 (0.8-1.2)
[2021-03-09 06:37] LABS: Glucose Point of Care 152 mg/dL (70-110)
[2021-03-09 06:44] LABS: Alanine Aminotransferase 16 U/L (0-41); Albumin Level 2.8 g/dL (3.5-5.2); Alkaline Phosphatase 57 IU/L (40-130); Anion Gap 11.9 (5-19); Aspartate Amino Transferase 17 U/L (0-40); Blood Urea Nitrogen 19 mg/dL (8-23); Calcium 8.6 mg/dL (8.5-10.5); Carbon Dioxide 24 mmol/L (22-29); Chloride 108 mmol/L (98-107); Globulin 2.2 g/dL (1.3-4.6); Glomerular Filtration Rate 96.4 mL/min (90-130); Glucose 125 mg/dL (65-115); Magnesium 1.9 mg/dL (1.7-2.3); Osmolality Calculated 294 mOsm/kg (285-295); Phosphorus 2.2 mg/dL (2.5-4.5); Potassium 3.9 mmol/L (3.5-5.1); Sodium 140 mmol/L (136-145); Total Bilirubin 0.5 mg/dL (0.15-1.2)
[2021-03-09 08:00] VITALS: BP 93/55; PULSE 100; RESP 18; TEMP 36.3; O2SAT 94
[2021-03-09] MEDS: carvedilol 6.25 mg Tablet 9.375 MG PO (08:14)
[2021-03-09] MEDS: citalopram 20 mg Tablet 10 MG PO (08:14)
[2021-03-09] MEDS: insulin glargine 100 units/1 mL 10 UNIT SUBCUT (08:16)
--- NOTE | 2021-03-09 08:44 | PC.NURSE ---
Nurse notified of blood pressure.
[2021-03-09 11:22] LABS: Glucose Point of Care 257 mg/dL (70-110)
[2021-03-09 12:00] VITALS: BP 118/68; PULSE 95; RESP 18; TEMP 36.4; O2SAT 96
--- NOTE | 2021-03-09 12:32 | P.DS_ITS ---
Discharge Providers Date of Admission: 03/07/21 09:31 Date of Discharge: March 09, 2021 Attending Provider at Admission: Di Pugh MD Attending Provider at Discharge: Celso Sun MD Primary Care Provider: Faustina Gonzalez NP Diagnoses at Discharge Discharge Diagnosis (1) Encephalopathy acute: Status: Acute (2) Recurrent UTI: Status: Chronic (3) Chronic use of steroids: Status: Chronic (4) Rheumatoid arthritis: Status: Chronic (5) Atrial fibrillation: Status: Chronic (6) Chronic anticoagulation: Status: Chronic Permanent problem details: coumadin (7) Congestive heart failure: Status: Chronic (8) Endocarditis: Status: Chronic Permanent problem details: chronic viridans endocarditis, 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 that looks to have ended early 02/2021 (9) Diabetes: Status: Chronic Qualifiers: Diabetes mellitus type: type 2 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 Diabetes mellitus complication status: with kidney complications Diabetes mellitus complication detail: with chronic kidney disease Chronic kidney disease stage: stage 2 (mild) Qualified Code(s): E11.22 - Type 2 diabetes mellitus with diabetic chronic kidney disease; N18.2 - Chronic kidney disease, stage 2 (mild); Z79.4 - continuous churn buttermaker (current) use of insulin (10) AJAY (obstructive sleep apnea): Status: Chronic (11) Thalassemia: Status: Chronic (12) Dementia: Status: Chronic (13) Body mass index [BMI] 38.0-38.9, adult: Status: Chronic Reason for Visit Reason for Visit: UTI AND VERY AMS Hospital Course Hospital Course This is a 65-year-old male with a past medical history of aortic stenosis, atrial fibrillation on Coumadin, history of bilateral renal masses, systolic CHF, history of CVA, insulin-dependent type 2 diabetes mellitus, dyslipidemia, history of endocarditis follows up with infectious disease in [place], hypertension, history of recurrent ESBL Klebsiella UTIs, rheumatoid arthritis, who presents to [facility] due to confusion Patient was admitted to [facility] for encephalopathy secondary to urinary tract infection, patient has had recurrent ESBL Klebsiella UTIs treated with Cipro and Flagyl, has a history of renal colliculi and renal masses, follows up with Dr. Berkowitz, he was managed with Primaxin as inpatient, his clinical status improved, mentation improved, remained afebrile, blood cultures negative, repeat ultrasound of the kidney did not show evidence of hydronephrosis, urine culture showed ESBL Klebsiella UTI which was fairly resistant to most oral antibiotics, susceptible to Primaxin. Patient will be discharged on 5 remaining days of IV ertapenem to be given through the outpatient GI Lab. Patient has a follow-up with infectious disease in [place] in the next few days for his endocarditis, currently amoxicillin is on hold For his Coumadin, he should continue his home dosing of 10 mg daily, 7.5 mg in the weekend, recheck INR on Monday Patient also has evidence of dementia, at bedside tells me that at baseline he does forget at times what date is. He does have evidence of deconditioning. I have discharged him with home health care with physical therapy. Physical Exam Const: COMMON NORMALS: no acute distress ORIENTATION/CONSCIOUSNESS: Yes awake, Yes oriented to person and Yes oriented to place; not oriented to time Neck/C-Spine: COMMON NORMALS: no JVD Resp: COMMON NORMALS: normal respiratory effort, No retractions, No use of accessory muscles and clear to auscultation bilaterally AUSCULTATION: clear to auscultation bilaterally Cardio: COMMON NORMALS: no JVD, regular rate, regular rhythm, S1 normal heart sound present and S2 normal heart sound present RATE: regular rate RHYTHM: regular rhythm HEART SOUNDS: S1 normal heart sound present and S2 normal heart sound present GI: COMMON NORMALS: Normal to inspection, nondistended, normoactive bowel sounds present, Soft to palpation, non-tender and No hepatosplenomegaly present PALPATION: Yes Soft to palpation and Yes No hepatosplenomegaly present Neuro: SENSORIUM/ORIENTATION: Yes oriented to person, Yes oriented to place and No oriented to time Discharge Data Data Completed and Pending: Completed Studies During Hospitalization Category Date Time Status XR chest 1V olga lidia ble [id number] Urgent Exams 03/07/21 06:42 Completed US renal BI* [id number] 0 Stat Ultrasound 03/08/21 08:59 Completed Pending at discharge Category Date Time Status Blood Culture Sta t Lab 03/07/21 06:30 Results Complete Blood Co unt w/Auto AM LABS Lab 03/10/21 04:00 Ordered Complete Blood Co unt w/Auto AM [facility] Lab 03/11/21 04:00 Ordered Comprehensive Met abolic Panel AM [facility] Lab 03/10/21 04:00 Ordered Comprehensive Met abolic Panel AM [facility] Lab 03/11/21 04:00 Ordered Magnesium AM LABS Lab 03/10/21 04:00 Ordered Magnesium AM LABS Lab 03/11/21 04:00 Ordered Phosphorus AM LAB S Lab 03/10/21 04:00 Ordered Phosphorus AM LAB S Lab 03/11/21 04:00 Ordered Prothrombin Time INR AM LABS Lab 03/10/21 04:00 Ordered Prothrombin Time INR AM LABS Lab 03/10/21 04:00 Ordered Prothrombin Time INR AM LABS Lab 03/11/21 04:00 Ordered Labs from last 24 hours 03/09/21 03/09/21 03/09/21 11:13 06:19 05:50 WBC RBC Hgb Hct MCV MCH MCHC RDW Plt Count MPV Neut % (Auto) Lymph % (Auto) Roosevelt % (Auto) Eos % (Auto) Baso % (Auto) Neut # (Auto) Lymph # (Auto) [place] # (Auto) Eos # (Auto) Baso # (Auto) Nucleated RBC % (a uto) Nucleated RBCs # PT INR Sodium 140 Potassium 3.9 Chloride 108 H Carbon Dioxide 24 Anion Gap 11.9 BUN 19 Creatinine 0.8 GFR Calculation 96.4 Glucose 125 H POC Glucose 257 H 152 H Calculated Osmolal ity 294 Calcium 8.6 Phosphorus 2.2 L Magnesium 1.9 Total Bilirubin 0.5 AST 17 ALT 16 Alkaline Phosphata se 57 Total Protein 5.0 L Albumin 2.8 L Globulin 2.2 03/09/21 03/09/21 03/08/21 05:50 05:50 20:10 WBC 7.5 RBC 5.60 H Hgb 10.2 L Hct 34.0 L MCV 60.7 L MCH 18.2 L MCHC 30.0 RDW 19.0 H Plt Count 197 MPV 10.5 H Neut % (Auto) 66.6 Lymph % (Auto) 16.2 Roosevelt % (Auto) 12.2 Eos % (Auto) 3.2 Baso % (Auto) 1.1 Neut # (Auto) 4.98 Lymph # (Auto) 1.2 Roosevelt # (Auto) 0.9 Eos # (Auto) 0.2 Baso # (Auto) 0.1 Nucleated RBC % (a uto) 0 Nucleated RBCs # 0.0 PT 21.70 H INR 1.82 H Sodium Potassium Chloride Carbon Dioxide Anion Gap BUN Creatinine GFR Calculation Glucose POC Glucose 242 H Calculated Osmolal ity Calcium Phosphorus Magnesium Total Bilirubin AST ALT Alkaline Phosphata se Total Protein Albumin Globulin 03/08/21 16:47 WBC RBC Hgb Hct MCV MCH MCHC RDW Plt Count MPV Neut % (Auto) Lymph % (Auto) [place] % (Auto) Eos % (Auto) Baso % (Auto) Neut # (Auto) Lymph # (Auto) Roosevelt # (Auto) Eos # (Auto) Baso # (Auto) Nucleated RBC % (a uto) Nucleated RBCs # PT INR Sodium Potassium Chloride Carbon Dioxide Anion Gap BUN Creatinine GFR Calculation Glucose POC Glucose 253 H Calculated Osmolal ity Calcium Phosphorus Magnesium Total Bilirubin AST ALT Alkaline Phosphata se Total Protein Albumin Globulin Vitals: Last Vital Signs Temp 97.6 F 03/09/21 12:00 Pulse 95 03/09/21 12:00 Resp 18 03/09/21 12:00 BP 118/68 03/09/21 12:00 Pulse Ox 96 03/09/21 12:00 Discharge Plan Discharge Patient Disposition: Home Condition: Stable Prescriptions: New Lantus U-100 Insulin 100 unit/mL Solution 10 unit SUBCUT Q12H Qty: 10 RF: 0 ertapenem 1 gram recon soln 1 g IV DAILY 5 Days Qty: 10 RF: 0 Continued tamsulosin 0.4 mg capsule 0.4 mg PO DAILY@06 RF: 0 citalopram [Celexa] 10 mg tablet 10 mg PO DAILY@06 RF: 0 nitroglycerin [Nitrostat] 0.4 mg tablet, sublingual 0.4 mg SUBLINGUAL Q5M PRN (Reason: Chest Pain) RF: 0 lisinopril 2.5 mg tablet 2.5 mg PO DAILY@06 RF: 0 furosemide 40 mg tablet 40 mg PO DAILY RF: 0 carvedilol 6.25 mg tablet 9.375 mg PO BID RF: 0 warfarin 10 mg tablet 10 mg PO DAILY RF: 0 warfarin 7.5 mg tablet 7.5 mg PO DAILY RF: 0 potassium chloride 20 mEq Tablet Extended Release 20 meq PO BID RF: 0 pantoprazole [Protonix] 40 mg Tablet,Delayed Release (Dr/Ec) 40 mg PO DAILY@06 RF: 0 Vitamin Plus Low Iron 27 mg iron- 1 mg tablet 1 tab PO DAILY@06 RF: 0 aspirin 81 mg Tablet,Delayed Release (Dr/Ec) 81 mg PO DAILY@06 RF: 0 atorvastatin 40 mg tablet 40 mg PO DAILY@19 RF: 0 prednisone 5 mg Tablet 7.5 mg PO DAILY@06 RF: 0 diltiazem HCl 120 mg capsule,extended release 24hr 120 mg PO DAILY@06 RF: 0 hydroxyzine pamoate 25 mg Capsule 25 mg PO BID PRN (Reason: Anxiety) RF: 0 acetaminophen [Tylenol Extra Strength] 500 mg Tablet 500 mg PO Q6H PRN (Reason: Pain) RF: 0 simethicone 80 mg Tablet,Chewable 80 mg PO DAILY PRN (Reason: gas) RF: 0 Discontinued doxycycline hyclate 100 mg tablet 100 mg PO BID Qty: 60 RF: 0 Lantus Solostar U-100 Insulin 100 unit/mL (3 mL) insulin pen 52 unit SUBCUT BID RF: 0 Discharge Orders: Discharge Order (Routine); Ordered 03/09/21 Ordered By: Celso Sun Other Ambulatory Orders: Physical Therapy Eval and Treat Outpatient (Order) Timeframe: 1 Day Facility: [facility] - Location: Physical Therapy Ordered By: Celso Sun Referrals: Faustina Gonzalez NP [Primary Care Provider] - 03/17/21 1:30 pm OUTPATIENT SURGERY, [Staff Physician] - (oupatient surgery will be calling you with your appointment to receive your iv antibiotics. If you do not hear from them, their number is [phone]) Discharge Diet: Cardiac Discharge Activity: Resume usual activity Patient Instructions: Insulin Glargine (Injection), Heart Failure (DC), Urinary Tract Infection in Men (GEN), CHF Stoplight, Opioid Safety Activity Restrictions/Additional Instructions: -For ESBL UTI, ertapenem 1 g IV daily for the next 5 days, please come to outpatient GI Lab for IV administration -Recheck CBC and CMP in 3 days through primary care -Please follow-up with infectious disease in [place] for decision on resumption of amoxicillin -Coumadin schedule: 10 mg Monday through Monday, 7.5 mg Monday -Recheck INR on Monday -Please have primary care physician titrate Coumadin dosing as you are on antibiotics Discharge Attestations Time Spent in Discharge Care*: less than 30 min Status at Discharge: Cognitive status at discharge: cognitively intact , Behavioral status at discharge: cooperative , Quality Metrics Clinical Quality Measures During this hospital stay, did patient experience: None Coding Level of Care Code Acute Chg FW DC note Diagnoses Encephalopathy acute G93.40 Recurrent UTI N39.0 Chronic use of steroids Rheumatoid arthritis M06.9 Atrial fibrillation I48.91 Chronic anticoagulation Z79.01 Congestive heart failure I50.9 Endocarditis I38 Diabetes E11.22; N18.2; Z79.4 Diabetes mellitus type: type 2 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
[2021-03-09] MEDS: warfarin 5 mg Tablet PO (13:00)
--- NOTE | 2021-03-09 15:20 | PC.NURSE ---
Reviewed discharge with patient and at this time. Patient and verbalize understanding of discharge instructions. IV removed at this time by Syl PATRICIA. Patient tolerated well. Patient is A&Ox3. Respirations even and non-labored on room air. Patient wheel chaired to private car.
[2021-03-09 15:25] VITALS: BP 118/68; PULSE 95; RESP 18; TEMP 36.4; O2SAT 96
--- NOTE | 2021-03-10 17:21 | PC.RESP ---
Pulmonary Rehab information sent to patient.
== END 2021-03-09 15:20 | disposition home health service (06) | DRG 871 ==
LOC: ER 09:29 → MEDSURG 09:43
PROVIDERS: Admitting Provider Hospitalist; Emergency Provider Emergency Medicine; PCP Nurse Practitioner Family; Visit Provider Family Medicine
DX: A41.9 Sepsis, unspecified organism (principal); G93.41 Metabolic encephalopathy; N39.0 Urinary tract infection, site not specified; D84.821 Immunodeficiency due to drugs; I38 Endocarditis, valve unspecified; I13.0 Hypertensive heart and chronic kidney disease with heart failure and stage 1 through stage 4 chronic kidney disease, or unspecified chronic kidney disease; I50.22 Chronic systolic (congestive) heart failure; E87.2 Acidosis; Z87.440 Personal history of urinary (tract) infections; M06.9 Rheumatoid arthritis, unspecified; T38.0X5A Adverse effect of glucocorticoids and synthetic analogues, initial encounter; Z79.2 Long term (current) use of antibiotics; Z79.52 Long term (current) use of systemic steroids; Z87.442 Personal history of urinary calculi; F03.90 Unspecified dementia, unspecified severity, without behavioral disturbance, psychotic disturbance, mood disturbance, and anxiety; R32 Unspecified urinary incontinence; I48.91 Unspecified atrial fibrillation; N28.89 Other specified disorders of kidney and ureter; N18.2 Chronic kidney disease, stage 2 (mild); E11.22 Type 2 diabetes mellitus with diabetic chronic kidney disease; Z86.73 Personal history of transient ischemic attack (TIA), and cerebral infarction without residual deficits; E78.5 Hyperlipidemia, unspecified; M10.9 Gout, unspecified; I25.5 Ischemic cardiomyopathy; E66.9 Obesity, unspecified; Z68.38 Body mass index [BMI] 38.0-38.9, adult; G47.33 Obstructive sleep apnea (adult) (pediatric); I27.20 Pulmonary hypertension, unspecified; B96.1 Klebsiella pneumoniae [K. pneumoniae] as the cause of diseases classified elsewhere; Z79.82 Long term (current) use of aspirin; Z79.01 Long term (current) use of anticoagulants; Z87.891 Personal history of nicotine dependence; Z95.2 Presence of prosthetic heart valve; D56.9 Thalassemia, unspecified
CPT/HCPCS: 36415; 36416; 71045; 76770; 80048; 80053; 81001; 81003; 82962; 83605; 83735; 83880; 84100; 84443; 85025; 85610; 87040; 87077; 87086; 87184; 87186; 93005; 96372; 97110; 97161; 97530; J0743; J1815 ×2; J7030; J7512

== ENCOUNTER 2021-03-10 12:05 | Emergency (ER) | payer MEDICARE, OTHER, SELFPAY ==
[2021-03-10 12:14] VITALS: BP 146/90; PULSE 89; RESP 18; TEMP 36.7; O2SAT 98; BMI 38.3
--- NOTE | 2021-03-10 13:18 | ED_ITS ---
HPI - General Adult General: Chief complaint: General Medical Stated complaint: SOB GI SAID COULD HEAR SOMETHING IN LUNGS Time Seen by Provider: 03/10/21 13:11 History of Present Illness: HPI narrative: 65-year-old male presents with some mild shortness of breath that resolved. Patient had a little bit of shortness of breath this morning when he got up but is now completely resolved. Patient was recently diagnosed with a UTI and was discharged from the hospital yesterday. He was appear receiving outpatient IV antibiotics. Because they were here they thought he should come in to be checked out. Patient denies any chest pain. No fevers chills nausea or vomiting. Associated symptoms: Reports dyspnea; Deny chest pain, headache(s), nausea, rash or vomiting Review of Systems Const: Denies: fever(s) or chills Eyes: Denies: change in vision ENMT: Denies: throat pain or uvular edema Card: Denies: chest pain or swelling of feet/ankles Resp: Reports: dyspnea; Denies: productive cough or non-productive cough GI: Denies: abdominal pain, nausea or vomiting : Denies: flank pain Musc: Denies: neck pain Skin/Breast: Denies: rash Neuro: Denies: headache(s) PFSH ED PFSH: Medical History Aortic stenosis Atrial fibrillation Bilateral renal masses CHF (congestive heart failure) EF 45-50% Chronic use of steroids CVA (cerebral vascular accident) Diabetes Dyslipidemia Edema Endocarditis chronic viridans endocarditis, 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 that looks to have ended early 02/2021 Essential hypertension Gout Hx of [place] spotted fever Ischemic cardiomyopathy Left ventricular hypertrophy Obesity AJAY (obstructive sleep apnea) Pulmonary HTN Recurrent UTI Renal calculi Rheumatoid arthritis Thalassemia Surgical History H/O lithotripsy S/P TAVR (transcatheter aortic valve replacement) (~2018) Family History Mother Stroke Father Myocardial infarction Other CAD (coronary artery disease) Chronic kidney disease (CKD) Diabetes Hypertension Social History Smoking and tobacco status: former smoker Quit status (tobacco): has quit using tobacco Year quit tobacco: 2019 - Chewing Tobacco Former quit date comment: Hx of 1/2 can x 50 Years Second hand smoke exposure: No Smoking risk assessment/counseling performed?: No Alcohol intake: former Lives independently: Yes Household members: spouse Marital status: Current occupational status: retired and disabled Current gender identity: Male Physical Exam Const: COMMON NORMALS: no acute distress and patient oriented x3 NUTRITIONAL APPEARANCE: obese morbidly obese HENMT: COMMON NORMALS: normocephalic HEAD & SCALP: normocephalic THROAT: no uvular edema Resp: COMMON NORMALS: normal respiratory effort and clear to auscultation bilaterally EFFORT & INSPECTION: Yes able to speak in complete sentences AUSCULTATION: clear to auscultation bilaterally Cardio: COMMON NORMALS: regular rate and regular rhythm RATE: regular rate RHYTHM: regular rhythm GI: COMMON NORMALS: Soft to palpation and non-tender PALPATION: Yes Soft to palpation Extremity: COMMON NORMALS: normal to inspection Neuro: COMMON NORMALS: patient oriented x3 and no focal motor deficits Psych: COMMON NORMALS: mental status grossly normal and normal affect Skin: COMMON NORMALS: no rashes or lesions noted GENERAL SKIN EXAM: no rashes or lesions noted Course Vital Signs: Vital signs: Vital Signs Temperature 98.0 F 03/10/21 12:14 Pulse Rate 82 03/10/21 13:23 Respiratory Rate 18 03/10/21 13:23 Blood Pressure 133/66 03/10/21 13:23 Pulse Oximetry 96 03/10/21 13:23 MDM - General Adult MDM Narrative: Medical decision making narrative: Patient with no symptoms while here in the ER. Patient's EKG showed no acute findings, 2 view x-ray showed no acute findings. There was difficulty drawing blood and patient decided to forego any further blood work-up. He would like to be discharged home. Patient is stable. He should follow-up with his primary care provider as needed Imaging Data^: CXR: Attestation: I personally reviewed and interpreted this imaging study as follows: My impression: no acute findingd Radiologist's impression: Findings: No nodules, masses or effusions are seen. The heart is normal. The pulmonary vascularity is not increased. No pneumonia or pneumothorax is seen. The aortic arch and descending aorta show calcification and mild tortuosity. There is an artificial valve in the heart. XR/XR chest 2V* [id number] Impression: Atherosclerosis. EKG Data^: EKG 1: Attestation: I personally reviewed and interpreted this EKG as follows: EKG interpretation date: 03/10/21 EKG interpretation time: 14:03 Ischemic changes: other (afib ) Interpretation: hr 83, afib, no acute findings non-specific t wave changes Computer generated interpretation: Chest X-Ray 03/10/21 13:21 Impression: Atherosclerosis. Discharge Plan Discharge Patient Disposition: Home Clinical Impression: Dyspnea Condition: Stable Prescriptions: No Action tamsulosin 0.4 mg capsule 0.4 mg PO DAILY@06 RF: 0 citalopram [Celexa] 10 mg tablet 10 mg PO DAILY@06 RF: 0 nitroglycerin [Nitrostat] 0.4 mg tablet, sublingual 0.4 mg SUBLINGUAL Q5M PRN (Reason: Chest Pain) RF: 0 lisinopril 2.5 mg tablet 2.5 mg PO DAILY@06 RF: 0 furosemide 40 mg tablet 40 mg PO DAILY RF: 0 carvedilol 6.25 mg tablet 9.375 mg PO BID RF: 0 warfarin 10 mg tablet 10 mg PO DAILY RF: 0 warfarin 7.5 mg tablet 7.5 mg PO DAILY RF: 0 potassium chloride 20 mEq Tablet Extended Release 20 meq PO BID RF: 0 pantoprazole [Protonix] 40 mg Tablet,Delayed Release (Dr/Ec) 40 mg PO DAILY@06 RF: 0 Vitamin Plus Low Iron 27 mg iron- 1 mg tablet 1 tab PO DAILY@06 RF: 0 aspirin 81 mg Tablet,Delayed Release (Dr/Ec) 81 mg PO DAILY@06 RF: 0 atorvastatin 40 mg tablet 40 mg PO DAILY@19 RF: 0 prednisone 5 mg Tablet 7.5 mg PO DAILY@06 RF: 0 diltiazem HCl 120 mg capsule,extended release 24hr 120 mg PO DAILY@06 RF: 0 hydroxyzine pamoate 25 mg Capsule 25 mg PO BID PRN (Reason: Anxiety) RF: 0 acetaminophen [Tylenol Extra Strength] 500 mg Tablet 500 mg PO Q6H PRN (Reason: Pain) RF: 0 simethicone 80 mg Tablet,Chewable 80 mg PO DAILY PRN (Reason: gas) RF: 0 Lantus U-100 Insulin 100 unit/mL Solution 10 unit SUBCUT Q12H Qty: 10 RF: 0 ertapenem 1 gram recon soln 1 g IV DAILY 5 Days Qty: 10 RF: 0 Discharge Orders: Discharge ED (Routine); Ordered 03/10/21 Ordered By: Ruiz Cullen Referrals: Faustina Gonzalez NP [Primary Care Provider] - Discharge Diet: Usual diet Discharge Activity: Resume usual activity Patient Instructions: Dyspnea (ED), Opioid Safety Activity Restrictions/Additional Instructions: Follow-up with your primary care provider next week for continuation of care and recheck of today's symptoms Coding Level of Care Code ED Appliance Tester for Chg Fwd Exam Comprehensive
--- NOTE | 2021-03-10 13:21 | XR_ITS ---
WS: [id number] Chest 2 views, 03/10/2021 Clinical Data: Shortness of breath Comparison: Portable chest, 03/07/2021. Findings: No nodules, masses or effusions are seen. The heart is normal. The pulmonary vascularity is not increased. No pneumonia or pneumothorax is seen. The aortic arch and descending aorta show calci fication and mild tortuosity. There is an artificial valve in the heart. XR/XR chest 2V* [id number] Impression: Atherosclerosis.
--- NOTE | 2021-03-10 13:21 | ECG_ITS ---
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: : 1955 Requested By: Ruiz Cullen Order Number: [id number] Reading MD: CATALINA MORRIS Measurements Intervals [place] Rate: 83 P: ID: QRS: -26 QRSD: 80 T: 128 QT: 359 QTc: 422 Interpretive Statements ATRIAL FIBRILLATION BORDERLINE LEFT AXIS DEVIATION [QRS AXIS < -20] MINIMAL VOLTAGE CRITERIA FOR LVH, CONSIDER NORMAL VARIANT [MEETS CRITERIA IN ONE OF: R(aVL), S(V1), R(V5), R(V5/V6)+S(V1)] NONSPECIFIC T-WAVE ABNORMALITY Compared to ECG 03/07/2021 09:46:00 Possible ischemia no longer present T-wave abnormality still present Electronically Signed On 03-10-2021 19:24:02 CDT by CATALINA MORRIS [id number]
[2021-03-10 13:23] VITALS: BP 133/66; PULSE 82; RESP 18; O2SAT 96
== END 2021-03-10 15:04 | disposition home or self-care (01) ==
PROVIDERS: Emergency Provider Student in an Organized Health Care Education/Training Program; PCP Nurse Practitioner Family
DX: R06.00 Dyspnea, unspecified (principal); Z79.01 Long term (current) use of anticoagulants; Z79.82 Long term (current) use of aspirin; Z79.4 Long term (current) use of insulin; I48.91 Unspecified atrial fibrillation; I11.0 Hypertensive heart disease with heart failure; I50.9 Heart failure, unspecified; Z86.73 Personal history of transient ischemic attack (TIA), and cerebral infarction without residual deficits; E11.9 Type 2 diabetes mellitus without complications; E78.5 Hyperlipidemia, unspecified; Z87.891 Personal history of nicotine dependence
CPT/HCPCS: 71046; 93005; 99283

== ENCOUNTER 2021-03-12 10:41 | Outpatient (RCR) | payer MEDICARE, OTHER, SELFPAY ==
[2021-03-10 11:10] VITALS: BP 121/85; PULSE 72; RESP 22; TEMP 36.3; O2SAT 99
[2021-03-10] MEDS: ertapenem 1,000 MG in sodium chloride 0.9% (plus) 100 ML 200 MG IV (11:25)
[2021-03-10 11:46] VITALS: BMI 38.3
[2021-03-11 10:40] VITALS: BP 140/97; PULSE 76; RESP 18; TEMP 36.6; O2SAT 94
[2021-03-11 10:48] VITALS: BP 140/97; PULSE 76; RESP 18; TEMP 36.6; O2SAT 94
[2021-03-11] MEDS: ertapenem 1,000 MG in sodium chloride 0.9% (plus) 100 ML 200 MG IV (11:10)
[2021-03-12 11:04] VITALS: BP 105/77; PULSE 77; RESP 18; TEMP 36.4; O2SAT 97
[2021-03-12] MEDS: ertapenem 1,000 MG in sodium chloride 0.9% (plus) 100 ML 200 MG IV (11:17)
[2021-03-13] MEDS: ertapenem 1,000 MG in sodium chloride 0.9% (plus) 100 ML 200 MG IV (11:59)
[2021-03-13 12:01] VITALS: BP 131/79; PULSE 82; RESP 18; TEMP 36.3; O2SAT 96
[2021-03-14] MEDS: ertapenem 1,000 MG in sodium chloride 0.9% (plus) 100 ML 200 MG IV (11:55)
[2021-03-14 14:47] VITALS: BP 125/67; PULSE 89; RESP 18; TEMP 36.3; O2SAT 97
== END 2021-03-19 23:59 | disposition home or self-care (01) ==
LOC: GILAB 10:41
PROVIDERS: PCP Nurse Practitioner Family; Visit Provider Family Medicine
DX: M06.9 Rheumatoid arthritis, unspecified (principal)
CPT/HCPCS: 36415; 85610; 96365; J1335

== ENCOUNTER 2021-03-20 06:00 | Outpatient (RCR) | payer MEDICARE, OTHER, SELFPAY | END 2021-04-19 23:59 | disposition home or self-care (01) | LOC: MPT 06:00 | PROVIDERS: PCP Nurse Practitioner Family; Referring Provider Nurse Practitioner Family; Visit Provider Nurse Practitioner Family | DX: R26.81 Unsteadiness on feet (principal) | CPT/HCPCS: 97110; 97116 ==

== ENCOUNTER → 2021-03-25 10:07 | Outpatient (BNVA) | payer MEDICARE, OTHER, SELFPAY | PROVIDERS: PCP Nurse Practitioner Family; Visit Provider Urology | DX: N20.0 Calculus of kidney (principal); N39.0 Urinary tract infection, site not specified; R33.9 Retention of urine, unspecified | CPT/HCPCS: 81003; 87077; 87086; 87184 ==

== ENCOUNTER → 2021-04-05 13:41 | Outpatient (BNVA) | payer MEDICARE, OTHER, SELFPAY | PROVIDERS: PCP Nurse Practitioner Family; Visit Provider Internal Medicine | DX: M06.9 Rheumatoid arthritis, unspecified (principal); M10.9 Gout, unspecified; N39.0 Urinary tract infection, site not specified; Z87.891 Personal history of nicotine dependence | CPT/HCPCS: 99213; 99214 ==

== ENCOUNTER 2021-04-20 06:00 | Outpatient (RCR) | payer MEDICARE, OTHER, SELFPAY | END 2021-05-19 23:59 | disposition home or self-care (01) | LOC: MPT 06:00 | PROVIDERS: PCP Nurse Practitioner Family; Referring Provider Nurse Practitioner Family; Visit Provider Nurse Practitioner Family | DX: R26.81 Unsteadiness on feet (principal) | CPT/HCPCS: 97110; 97116 ==

== ENCOUNTER 2021-06-24 14:39 | Emergency (ER) | payer MEDICARE, OTHER, SELFPAY ==
--- NOTE | 2021-06-24 15:15 | ECG_ITS ---
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 Measurements Intervals [place] Rate: 95 P: [place]: QRS: -15 QRSD: 87 T: 141 QT: 362 QTc: 456 Interpretive Statements ATRIAL FIBRILLATION MODERATE VOLTAGE CRITERIA FOR LVH, CONSIDER NORMAL VARIANT [MEETS CRITERIA IN ONE OF: R(aVL), S(V1), R(V5), R(V5/V6)+S(V1)] ST DEVIATION AND MODERATE T-WAVE ABNORMALITY, CONSIDER LATERAL ISCHEMIA [-0.1+ mV T WAVE IN I/aVL/V5/V6] Compared to ECG 03/10/2021 14:03:08 Possible ischemia now present T-wave abnormality still present Electronically Signed On 06-25-2021 13:57:41 CDT by Cassy Monreal M.D. [id number]
--- NOTE | 2021-06-24 15:15 | XRR_ITS ---
PROCEDURE INFORMATION: Exam: XR Chest Exam date and time: 06/24/2021 3:15 PM Age: 65 years old Clinical indication: Cough and dyspnea; Additional info: Dyspnea/cough TECHNIQUE: Imaging protocol: XR of the chest. Views: 1 view. COMPARISON: CR XR chest 2V* [id number] 03/10/2021 1:39 PM FINDINGS: Lungs: Unremarkable. No consolidation. Pleural spaces: Unremarkable. No pleural effusion. No pneumothorax. Heart/Mediastinum: Cardiac valve replacement. Borderline cardiomegaly. Bones/joints: Visualized osseous structures are intact. XR/XR chest 1V portable [id number] IMPRESSION: No acute findings.
[2021-06-24 15:19] VITALS: BP 101/74; PULSE 91; RESP 18; TEMP 36.4; O2SAT 98; BMI 37.0
--- NOTE | 2021-06-24 17:15 | ECG_ITS ---
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 Measurements Intervals [place] Rate: 91 P: [place]: QRS: -25 QRSD: 90 T: 138 QT: 364 QTc: 450 Interpretive Statements ATRIAL FIBRILLATION BORDERLINE LEFT AXIS DEVIATION [QRS AXIS < -20] MODERATE VOLTAGE CRITERIA FOR LVH, CONSIDER NORMAL VARIANT [MEETS CRITERIA IN ONE OF: R(aVL), S(V1), R(V5), R(V5/V6)+S(V1)] MODERATE T-WAVE ABNORMALITY, CONSIDER LATERAL ISCHEMIA [-0.1+ mV T WAVE IN I/aVL/V5/V6] Compared to ECG 06/24/2021 15:58:45 No significant changes Electronically Signed On 06-24-2021 23:05:18 CDT by Ari Pettit M.D. [id number]
[2021-06-24 20:09] LABS: Basophils # 0.1 10^3/uL (0.0-0.1); Basophils % 0.7 %; Eosinophils # 0.1 10^3/uL (0.0-0.8); Eosinophils % 1.2 %; Hematocrit 41.2 % (42.0-52.0); Hemoglobin 12.4 g/dL (11.7-16.6); Lymphocytes # 2.9 10^3/uL (0.8-4.8); Lymphocytes % 28.8 %; Mean Corpuscular HGB Conc 30.1 g/dL (30.0-36.0); Mean Corpuscular Hemoglobin 17.9 pg (28.0-34.0); Mean Corpuscular Volume 59.5 fL (80-94); Monocytes # 0.7 10^3/uL (0.2-0.9); Neutrophils # 6.24 10^3/uL (1.8-7.7); Neutrophils % 61.4 %; Nucleated Red Blood Cells % 0 %; Platelet Count 297 10^3/cmm (130-400); Red Blood Count 6.93 10^6/uL (4.1-5.3); White Blood Count 10.2 10^3/uL (4.0-10.0)
[2021-06-24 20:43] LABS: Slide Review Slide Review Perform
[2021-06-24 20:52] LABS: Alanine Aminotransferase 35 U/L (0-41); Albumin Level 3.6 g/dL (3.5-5.2); Alkaline Phosphatase 88 IU/L (40-130); Anion Gap 16.3 (5-19); Aspartate Amino Transferase 28 U/L (0-40); Blood Urea Nitrogen 32 mg/dL (8-23); Carbon Dioxide 22 mmol/L (22-29); Chloride 102 mmol/L (98-107); Globulin 2.8 g/dL (1.3-4.6); Glomerular Filtration Rate 74.5 mL/min (90-130); Glucose 171 mg/dL (65-115); Osmolality Calculated 293 mOsm/kg (285-295); Potassium 4.3 mmol/L (3.5-5.1); Sodium 136 mmol/L (136-145); Total Bilirubin 0.6 mg/dL (0.15-1.2); Total Protein 6.4 g/dL (6.6-8.7)
[2021-06-24 20:55] LABS: Troponin(5th) Baseline 18 ng/L (0-15)
--- NOTE | 2021-06-24 21:15 | ECG_ITS ---
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 Measurements Intervals [place] Rate: 80 P: [place]: QRS: -31 QRSD: 98 T: 116 QT: 379 QTc: 437 Interpretive Statements ATRIAL FIBRILLATION MARKED LEFT AXIS DEVIATION [QRS AXIS < -30] PATTERN CONSISTENT WITH PULMONARY DISEASE MODERATE VOLTAGE CRITERIA FOR LVH, CONSIDER NORMAL VARIANT [MEETS CRITERIA IN ONE OF: R(aVL), S(V1), R(V5), R(V5/V6)+S(V1)] MODERATE T-WAVE ABNORMALITY, CONSIDER LATERAL ISCHEMIA [-0.1+ mV T WAVE IN I/aVL/V5/V6] Compared to ECG 06/24/2021 17:37:24 No significant changes Electronically Signed On 06-25-2021 16:46:44 CDT by Cassy Monreal M.D. [id number]
[2021-06-24 22:54] LABS: Troponin 5 2HR 19.91 ng/L (0-15); Troponin 5 2HR Delta 1.91 ABS# (0-10)
[2021-06-24 23:20] VITALS: BP 134/67; PULSE 79; RESP 18; O2SAT 97
--- NOTE | 2021-06-24 23:50 | W.ED.SOB ---
HPI - SOB/Dyspnea General: Chief Complaint: Shortness of Breath/Dyspnea Stated Complaint: SOB Time Seen by Provider: 06/24/21 23:11 Source: patient Mode of arrival: ambulatory Limitations: no limitations History of Present Illness: HPI Narrative: 65-year-old male has a history of A. fib's states that last night he was having heart rates in the 120s along with some dyspnea with this. States he was concerned when to get checked out today. He states that today his symptoms have resolved and has been feeling well. His nose complaints currently. Denies any chest pain. Denies any shortness of breath. Denies any cough. Denies any worsening improving factors. Associated symptoms: Reports palpitations; Deny abdominal pain, chest pain, fever(s), nausea or vomiting Review of Systems Const: Denies: fever(s), chills, body aches or change in appetite Eyes: Denies: blurry vision or eye discomfort ENMT: Denies: throat pain or dental pain Card: Reports: palpitations; Denies: chest pain Resp: Denies: dyspnea GI: Denies: abdominal pain, nausea, vomiting or diarrhea : Denies: dysuria Musc: Denies: neck pain or back pain Skin/Breast: Denies: rash Neuro: Denies: headache(s) Psych: Denies: depression Aaron/Lymph: Denies: easy bruising All/Imm: Denies: urticaria PFSH ED PFSH: Medical History Aortic stenosis Atrial fibrillation Bilateral renal masses CHF (congestive heart failure) EF 45-50% Chronic use of steroids CVA (cerebral vascular accident) Diabetes Dyslipidemia Edema Endocarditis chronic viridans endocarditis, 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 that looks to have ended early 02/2021 Essential hypertension Gout Hx of [place] spotted fever Ischemic cardiomyopathy Left ventricular hypertrophy Obesity AJAY (obstructive sleep apnea) Pulmonary HTN Recurrent UTI Multidrug-resistant organisms Renal calculi Rheumatoid arthritis Thalassemia Surgical History H/O lithotripsy S/P TAVR (transcatheter aortic valve replacement) (~2018) Family History Mother Stroke Father Myocardial infarction Other CAD (coronary artery disease) Chronic kidney disease (CKD) Diabetes Hypertension Social History Smoking and tobacco status: former smoker Quit status (tobacco): has quit using tobacco Year quit tobacco: 2020 - Chewing Tobacco Former quit date comment: Hx of 1/2 can x 50 Years Second hand smoke exposure: No Smoking risk assessment/counseling performed?: No Alcohol intake: former Lives independently: Yes Household members: spouse Marital status: Current occupational status: retired and disabled Current gender identity: Male Physical Exam Const: COMMON NORMALS: no acute distress, patient oriented x3 and healthy appearing HENMT: COMMON NORMALS: normocephalic and atraumatic HEAD & SCALP: normocephalic and atraumatic Eye: COMMON NORMALS: Equal, round and reactive pupils present and EOMs intact bilaterally PUPIL: Yes Equal, round and reactive pupils present Neck/C-Spine: COMMON NORMALS: full ROM and supple Chest: COMMONS NORMALS: normal inspection of the chest and normal palpation of entire chest wall Resp: COMMON NORMALS: normal respiratory effort, No retractions, No use of accessory muscles and clear to auscultation bilaterally AUSCULTATION: clear to auscultation bilaterally Cardio: COMMON NORMALS: regular rate and No murmurs present (Cardio) RATE: regular rate RHYTHM: abnormal rhythm irregularly irregular GI: COMMON NORMALS: Normal to inspection, nondistended, normoactive bowel sounds present, Soft to palpation, non-tender and no masses PALPATION: Yes Soft to palpation Extremity: COMMON NORMALS: normal to inspection and full ROM Neuro: COMMON NORMALS: patient oriented x3, moves all extremities and no focal motor deficits Psych: COMMON NORMALS: mental status grossly normal, Normal thought process present and cooperative THOUGHT PROCESS: Normal thought process present Skin: COMMON NORMALS: no rashes or lesions noted and no wounds GENERAL SKIN EXAM: no rashes or lesions noted Course Vital Signs: Vital signs: Vital Signs Temperature 97.6 F 06/24/21 15:19 Pulse Rate 79 06/25/21 00:03 Respiratory Rate 18 06/24/21 23:20 Blood Pressure 142/71 06/25/21 00:03 Pulse Oximetry 97 06/25/21 00:03 MDM - SOB/Dyspnea MDM Narrative: Medical decision making narrative: Patient presents here with A. fib he had palpitations last night they resolved here. His heart rate here is normal. Patient's blood work here is all normal as well. X-ray shows no acute findings. He feels improved he would like to go home. I feel he is stable for discharge. Is no signs of acute coronary syndrome. Lab Data: Labs: Lab Results 06/24/21 06/24/21 06/24/21 Range/Units 19:58 19:58 19:58 WBC 10.2 H (4.0-10.0) 10^3/ uL RBC 6.93 H (4.1-5.3) 10^6/u L Hgb 12.4 (11.7-16.6) g/dL Hct 41.2 L (42.0-52.0) % MCV 59.5 L (80-94) fL MCH 17.9 L (28.0-34.0) pg MCHC 30.1 (30.0-36.0) g/dL RDW 20.0 H (12.1-15.1) % Plt Count 297 (130-400) 10^3/c mm MPV Not Reportable Neut % (Auto) 61.4 % Lymph % (Auto) 28.8 % [place] % (Auto) 7.0 % Eos % (Auto) 1.2 % Baso % (Auto) 0.7 % Neut # (Auto) 6.24 (1.8-7.7) 10^3/u L Lymph # (Auto) 2.9 (0.8-4.8) 10^3/u L [place] # (Auto) 0.7 (0.2-0.9) 10^3/u L Eos # (Auto) 0.1 (0.0-0.8) 10^3/u L Baso # (Auto) 0.1 (0.0-0.1) 10^3/u L Nucleated RBC % (a uto) 0 % Nucleated RBCs # 0.0 /100WBC Sodium 136 (136-145) mmol/L Potassium 4.3 (3.5-5.1) mmol/L Chloride 102 (98-107) mmol/L Carbon Dioxide 22 (22-29) mmol/L Anion Gap 16.3 (5-19) BUN 32 H (8-23) mg/dL Creatinine 1.0 (0.7-1.2) mg/dL GFR Calculation 74.5 L (90-130) mL/min Glucose 171 H (65-115) mg/dL Calculated Osmolal ity 293 (285-295) mOsm/k g Calcium 9.0 (8.5-10.5) mg/dL Total Bilirubin 0.6 (0.15-1.2) mg/dL AST 28 (0-40) U/L ALT 35 (0-41) U/L Alkaline Phosphata se 88 (40-130) IU/L Troponin T Baselin e 18 H (0-15) ng/L Troponin T 120 Min kvng (0-15) ng/L Delta Troponin T (0-10) ABS# Total Protein 6.4 L (6.6-8.7) g/dL Albumin 3.6 (3.5-5.2) g/dL Globulin 2.8 (1.3-4.6) g/dL 08// Range/Units 22:06 WBC (4.0-10.0) 10^3/ uL RBC (4.1-5.3) 10^6/u L Hgb (11.7-16.6) g/dL Hct (42.0-52.0) % MCV (80-94) fL MCH (28.0-34.0) pg MCHC (30.0-36.0) g/dL RDW (12.1-15.1) % Plt Count (130-400) 10^3/c mm MPV Neut % (Auto) % Lymph % (Auto) % [place] % (Auto) % Eos % (Auto) % Baso % (Auto) % Neut # (Auto) (1.8-7.7) 10^3/u L Lymph # (Auto) (0.8-4.8) 10^3/u L [place] # (Auto) (0.2-0.9) 10^3/u L Eos # (Auto) (0.0-0.8) 10^3/u L Baso # (Auto) (0.0-0.1) 10^3/u L Nucleated RBC % (a uto) % Nucleated RBCs # /100WBC Sodium (136-145) mmol/L Potassium (3.5-5.1) mmol/L Chloride (98-107) mmol/L Carbon Dioxide (22-29) mmol/L Anion Gap (5-19) BUN (8-23) mg/dL Creatinine (0.7-1.2) mg/dL GFR Calculation (90-130) mL/min Glucose (65-115) mg/dL Calculated Osmolal ity (285-295) mOsm/k g Calcium (8.5-10.5) mg/dL Total Bilirubin (0.15-1.2) mg/dL AST (0-40) U/L ALT (0-41) U/L Alkaline Phosphata se (40-130) IU/L Troponin T Baselin e (0-15) ng/L Troponin T 120 Min kvng 19.91 H (0-15) ng/L Delta Troponin T 1.91 (0-10) ABS# Total Protein (6.6-8.7) g/dL Albumin (3.5-5.2) g/dL Globulin (1.3-4.6) g/dL Discharge Plan Discharge Patient Disposition: Home Clinical Impression: Dyspnea Atrial fibrillation Qualifiers: Atrial fibrillation type: unspecified chronic Qualified Code(s): I48.20 - Chronic atrial fibrillation, unspecified Condition: Stable Prescriptions: No Action tamsulosin 0.4 mg capsule 0.4 mg PO DAILY@06 RF: 0 citalopram [Celexa] 10 mg tablet 10 mg PO DAILY@06 RF: 0 nitroglycerin [Nitrostat] 0.4 mg tablet, sublingual 0.4 mg SUBLINGUAL Q5M PRN (Reason: Chest Pain) RF: 0 lisinopril 2.5 mg tablet 2.5 mg PO DAILY@06 RF: 0 carvedilol 6.25 mg tablet 9.375 mg PO BID RF: 0 prednisone 5 mg tablet 5 mg PO DAILY RF: 0 bumetanide 2 mg tablet 2 mg PO BID RF: 0 ascorbic acid (vitamin C) 1,000 mg tablet 1 g PO BID RF: 0 leflunomide 10 mg tablet 10 mg PO DAILY Qty: 30 RF: 3 warfarin 10 mg tablet 10 mg PO DAILY RF: 0 warfarin 7.5 mg tablet 7.5 mg PO DAILY RF: 0 methenamine hippurate 1 gram tablet 1 g PO BID Qty: 180 RF: 3 potassium chloride 20 mEq Tablet Extended Release 20 meq PO BID RF: 0 pantoprazole [Protonix] 40 mg Tablet,Delayed Release (Dr/Ec) 40 mg PO DAILY@06 RF: 0 Vitamin Plus Low Iron 27 mg iron- 1 mg tablet 1 tab PO DAILY@06 RF: 0 aspirin 81 mg Tablet,Delayed Release (Dr/Ec) 81 mg PO DAILY@06 RF: 0 atorvastatin 40 mg tablet 40 mg PO DAILY@19 RF: 0 diltiazem HCl 120 mg capsule,extended release 24hr 120 mg PO DAILY@06 RF: 0 acetaminophen [Tylenol Extra Strength] 500 mg Tablet 500 mg PO Q6H PRN (Reason: Pain) RF: 0 simethicone 80 mg Tablet,Chewable 80 mg PO DAILY PRN (Reason: gas) RF: 0 hydroxyzine pamoate 25 mg capsule 25 mg PO BID RF: 0 Lantus U-100 Insulin 100 unit/mL Solution 10 unit SUBCUT Q12H Qty: 10 RF: 0 Discharge Orders: Discharge ED (Routine); Ordered 06/24/21 Ordered By: Schuyler Smith Referrals: Faustina Gonzalez NP [Primary Care Provider] - 1-3 days Discharge Diet: Advance as tolerated Discharge Activity: Resume usual activity Patient Instructions: Atrial Fibrillation (ED) Coding Level of Care Code ED Newspaper Vendor for John Jade
[2021-06-25 00:03] VITALS: BP 142/71; PULSE 106; PULSE 79; O2SAT 96; O2SAT 97
== END 2021-06-25 00:05 | disposition home or self-care (01) ==
PROVIDERS: Family Medicine; Emergency Provider Emergency Medicine; PCP Nurse Practitioner Family
DX: I48.20 Chronic atrial fibrillation, unspecified (principal); R06.00 Dyspnea, unspecified; Z79.01 Long term (current) use of anticoagulants; Z79.82 Long term (current) use of aspirin; Z79.4 Long term (current) use of insulin; I11.0 Hypertensive heart disease with heart failure; I50.9 Heart failure, unspecified; Z86.73 Personal history of transient ischemic attack (TIA), and cerebral infarction without residual deficits; E11.9 Type 2 diabetes mellitus without complications; E78.5 Hyperlipidemia, unspecified; Z87.891 Personal history of nicotine dependence
CPT/HCPCS: 36415; 71045; 80053; 84484; 85025; 93005; 99284

== ENCOUNTER → 2021-06-28 15:51 | Outpatient (BNVA) | payer MEDICARE, OTHER, SELFPAY | PROVIDERS: PCP Nurse Practitioner Family; Visit Provider Nurse Practitioner Family | DX: N39.0 Urinary tract infection, site not specified (principal) | CPT/HCPCS: 81003; 87077; 87086; 87184 ==

== ENCOUNTER 2021-07-12 08:39 | Inpatient (IN) | payer MEDICARE, OTHER, SELFPAY ==
[2021-07-12] VITALS (10 sets, daily range): BP systolic 111–133; BP diastolic 52–72; PULSE 71–117; RESP 17–34; TEMP 36.4–37.1; O2SAT 90–95; BMI 36.2
[2021-07-12 09:04] LABS: Glucose Point of Care 114 mg/dL (70-110)
[2021-07-12 09:37] LABS: Basophils # 0.1 10^3/uL (0.0-0.1); Basophils % 0.7 %; Eosinophils # 0.1 10^3/uL (0.0-0.8); Eosinophils % 0.8 %; Hematocrit 42.7 % (42.0-52.0); Hemoglobin 12.7 g/dL (11.7-16.6); Lymphocytes # 0.7 10^3/uL (0.8-4.8); Lymphocytes % 5.5 %; Mean Corpuscular HGB Conc 29.7 g/dL (30.0-36.0); Mean Corpuscular Volume 60.5 fl (80-94); Monocytes # 0.8 10^3/uL (0.2-0.9); Monocytes % 6.4 %; Neutrophils # 10.37 10^3/uL (1.8-7.7); Neutrophils % 86.1 %; Nucleated Red Blood Cells % 0.2 %; Platelet Count 219 10^3/cmm (130-400); Red Blood Count 7.06 10^6/uL (4.1-5.3); Red Cell Distribution Width 20.9 % (12.1-15.1)
[2021-07-12 09:49] LABS: Ketone (Acetest) Serum Negative (Negative)
[2021-07-12 09:50] LABS: Alanine Aminotransferase 32 U/L (0-41); Albumin Level 3.5 g/dL (3.5-5.2); Alkaline Phosphatase 67 IU/L (40-130); Anion Gap 14.1 (5-19); Aspartate Amino Transferase 26 U/L (0-40); Blood Urea Nitrogen 37 mg/dL (8-23); Calcium 9.2 mg/dL (8.5-10.5); Carbon Dioxide 27 mmol/L (22-29); Chloride 105 mmol/L (98-107); Globulin 2.5 g/dL (1.3-4.6); Glomerular Filtration Rate 74.5 mL/min (90-130); Glucose 128 mg/dL (65-115); Lipase 24 U/L (13-60); Osmolality Calculated 304 mOsm/kg (285-295); Potassium 4.1 mmol/L (3.5-5.1); Sodium 142 mmol/L (136-145); Total Bilirubin 0.7 mg/dL (0.15-1.2)
[2021-07-12 09:51] LABS: Lactic Sepsis W/Reflex 1.6 mmol/L (0.5-2.2)
--- NOTE | 2021-07-12 09:52 | ED_ITS ---
HPI - Altered Mental Status General: Chief Complaint: Altered Mental Status Stated Complaint: AMS, CONFUSED, LETHARGIC Time Seen by Provider: 07/12/21 08:42 History of Present Illness: HPI narrative: 65-year-old male presents to the emergency room from home via EMS patient is lethargic and confused. He has a history of recurrent UTIs. He was given a prescription for Augmentin to take if he had symptoms they thought they needed to start taking it today however he was increasingly confused disoriented. Patient is able to talk with me he denies chest pain denies abdominal pain or flank pain. He does state he is somewhat short of breath. Patient is morbidly obese, appears to have some ascites but this is chronic he has chronic skin changes to the pannus. MD complaint: altered mental status and confusion Onset (ago): hour(s) Severity: moderate Consistency of symptoms: Getting Worse Associated symptoms: Deny auditory hallucinations, visual hallucinations, delusions, depression, homicidal ideation, racing thoughts or suicidal ideation Review of Systems Const: Denies: fever(s), chills, body aches, change in appetite, fatigue or malaise ENMT: Denies: throat pain, ear or mastoid pain, nasal discharge or nasal congestion Card: Denies: chest pain, edema, dyspnea on exertion or orthopnea Resp: Denies: dyspnea, productive cough or non-productive cough GI: Denies: abdominal pain, nausea, vomiting, hematemesis, coffee ground emesis, diarrhea, constipation, bloating, hematochezia or melena : Denies: flank pain, dysuria, urinary frequency or urinary urgency Skin/Breast: Denies: rash or pruritus Psych: Denies: depression, visual hallucinations, auditory hallucinations, suicidal ideation or homicidal ideation [facility] ED PFSH: Medical History (Updated 07/14/21 @ 07:21 by Raymon Boyce DO) Aortic stenosis Had TAVR replacement 2017. 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 that looks to have ended early 02/2021 Essential hypertension Gout Hx of [place] spotted fever Ischemic cardiomyopathy Left ventricular hypertrophy Obesity AJAY (obstructive sleep apnea) Pulmonary HTN Recurrent UTI Multidrug-resistant organisms Renal calculi Rheumatoid arthritis Thalassemia Surgical History H/O lithotripsy S/P TAVR (transcatheter aortic valve replacement) (~2018) Family History Mother Stroke Father Myocardial infarction Other CAD (coronary artery disease) Chronic kidney disease (CKD) Diabetes Hypertension Social History Smoking and tobacco status: never smoked Quit status (tobacco): has quit using tobacco Year quit tobacco: 2019 - Chewing Tobacco Former quit date comment: Hx of 1/2 can x 50 Years Second hand smoke exposure: No Smoking risk assessment/counseling performed?: No Alcohol intake: former Lives independently: Yes Household members: spouse Marital status: Current occupational status: retired and disabled History of recent travel: No Current gender identity: Male Physical Exam HENMT: COMMON NORMALS: normocephalic and atraumatic HEAD & SCALP: normocephalic and atraumatic Resp: COMMON NORMALS: normal respiratory effort, No retractions, No use of accessory muscles and clear to auscultation bilaterally AUSCULTATION: clear to auscultation bilaterally Cardio: COMMON NORMALS: regular rate, regular rhythm and No murmurs present (Cardio) RATE: regular rate RHYTHM: regular rhythm GI: COMMON NORMALS: Soft to palpation and No hepatosplenomegaly present INSPECTION: Yes abdominal distension and Yes central obesity AUSCULTATION: Yes normoactive bowel sounds PALPATION: Yes Soft to palpation, No Tenderness to palpation present (GI), No Guarding due to palpation present (GI) and Yes No hepatosplenomegaly present OTHER: Chronic anasarca with skin changes on the abdominal wall in the periumbilical area. Extremity: COMMON NORMALS: normal to inspection, capillary refill normal and no calf tenderness OTHER: Changes of chronic pedal edema noted 2+ to 3+ edema at this time. Psych: THOUGHT CONTENT: No delusions Skin: COMMON NORMALS: no rashes or lesions noted GENERAL SKIN EXAM: no rashes or lesions noted Urinary Catheter Management^: Arriola: Cath Placed During This Visit: yes Urinary Catheter Date of Insertion: 07/12/21 Urinary Catheter Time of Insertion: 09:15 Course Vital Signs: Vital signs: Vital Signs Temperature 97.5 F L 07/14/21 04:00 Pulse Rate 94 07/14/21 04:00 Respiratory Rate 16 07/14/21 04:00 Blood Pressure 95/44 07/14/21 04:00 Pulse Oximetry 96 07/14/21 04:00 MDM - Altered Mental Status MDM Narrative: Medical decision making narrative: Labs imaging EKG reviewed on the chart discussed Dr. Alatorre will admit for acute encephalopathy start antibiotics for recurrent UTI patient is over anticoagulated at this time as well. He will also management of his congestive heart failure. Lab Data: Labs: Lab Results 07/12/21 07/12/21 07/12/21 Range/Units 09:00 09:15 09:19 WBC (4.0-10.0) 10^3/ uL RBC (4.1-5.3) 10^6/u L Hgb (11.7-16.6) g/dL Hct (42.0-52.0) % MCV (80-94) fl MCH (28.0-34.0) pg MCHC (30.0-36.0) g/dL RDW (12.1-15.1) % Plt Count (130-400) 10^3/c mm MPV (7.4-10.4) fL Neut % (Auto) % Lymph % (Auto) % [place] % (Auto) % Eos % (Auto) % Baso % (Auto) % Neut # (Auto) (1.8-7.7) 10^3/u L Lymph # (Auto) (0.8-4.8) 10^3/u L [place] # (Auto) (0.2-0.9) 10^3/u L Eos # (Auto) (0.0-0.8) 10^3/u L Baso # (Auto) (0.0-0.1) 10^3/u L Nucleated RBC % (a uto) % Nucleated RBCs # /100WBC PT (12.1-14.9) SECO NDS INR (0.8-1.2) Sodium (136-145) mmol/L Potassium (3.5-5.1) mmol/L Chloride (98-107) mmol/L Carbon Dioxide (22-29) mmol/L Anion Gap (5-19) BUN (8-23) mg/dL Creatinine (0.7-1.2) mg/dL GFR Calculation (90-130) mL/min Glucose (65-115) mg/dL POC Glucose 114 H (70-110) mg/dL Calculated Osmolal ity (285-295) mOsm/k g Lactic Acid (0.5-2.2) mmol/L Calcium (8.5-10.5) mg/dL Total Bilirubin (0.15-1.2) mg/dL AST (0-40) U/L ALT (0-41) U/L Alkaline Phosphata se (40-130) IU/L Total Protein (6.6-8.7) g/dL Albumin (3.5-5.2) g/dL Globulin (1.3-4.6) g/dL Lipase (13-60) U/L Vitamin B12 (232-1245) pg/mL TSH 1.51 (0.27-4.20) uIU/ mL Urine Color Yellow (Yellow) Urine Appearance Hazy A (CLEAR) Urine pH 5 (5-7) Ur Specific Gravit y 1.015 (1.005-1.030) Urine Protein Neg (Negative) Urine Glucose (UA) Norm (Normal) Urine Ketones Negative (Negative) Urine Blood 2+ H (Negative) Urine Nitrate Positive H (Negative) Urine Bilirubin Neg (Negative) Urine Urobilinogen Norm (Negative) mg/dL Ur Leukocyte Michelle ase 2+ H (Negative) Urine RBC 0-4 H (0-2) /hpf Urine WBC 25-40 H (0-5) /hpf Ur Squamous Epith Cells None (0-5) /hpf Amorphous Sediment Not Reportable Urine Bacteria 3+ H (NONE) /hpf Serum Ketones (Negative) 07/12/21 07/12/21 07/12/21 Range/Units 09:24 09:24 09:24 WBC 12.0 H (4.0-10.0) 10^3/ uL RBC 7.06 H (4.1-5.3) 10^6/u L Hgb 12.7 (11.7-16.6) g/dL Hct 42.7 (42.0-52.0) % MCV 60.5 L (80-94) fl MCH 18.0 L (28.0-34.0) pg MCHC 29.7 L (30.0-36.0) g/dL RDW 20.9 H (12.1-15.1) % Plt Count 219 (130-400) 10^3/c mm MPV 10.0 (7.4-10.4) fL Neut % (Auto) 86.1 % Lymph % (Auto) 5.5 % [place] % (Auto) 6.4 % Eos % (Auto) 0.8 % Baso % (Auto) 0.7 % Neut # (Auto) 10.37 H (1.8-7.7) 10^3/u L Lymph # (Auto) 0.7 L (0.8-4.8) 10^3/u L [place] # (Auto) 0.8 (0.2-0.9) 10^3/u L Eos # (Auto) 0.1 (0.0-0.8) 10^3/u L Baso # (Auto) 0.1 (0.0-0.1) 10^3/u L Nucleated RBC % (a uto) 0.2 % Nucleated RBCs # 0.0 /100WBC PT (12.1-14.9) SECO NDS INR (0.8-1.2) Sodium 142 (136-145) mmol/L Potassium 4.1 (3.5-5.1) mmol/L Chloride 105 (98-107) mmol/L Carbon Dioxide 27 (22-29) mmol/L Anion Gap 14.1 (5-19) BUN 37 H (8-23) mg/dL Creatinine 1.0 (0.7-1.2) mg/dL GFR Calculation 74.5 L (90-130) mL/min Glucose 128 H (65-115) mg/dL POC Glucose (70-110) mg/dL Calculated Osmolal ity 304 H (285-295) mOsm/k g Lactic Acid 1.6 (0.5-2.2) mmol/L Calcium 9.2 (8.5-10.5) mg/dL Total Bilirubin 0.7 (0.15-1.2) mg/dL AST 26 (0-40) U/L ALT 32 (0-41) U/L Alkaline Phosphata se 67 (40-130) IU/L Total Protein 6.0 L (6.6-8.7) g/dL Albumin 3.5 (3.5-5.2) g/dL Globulin 2.5 (1.3-4.6) g/dL Lipase 24 (13-60) U/L Vitamin B12 (232-1245) pg/mL TSH (0.27-4.20) uIU/ mL Urine Color (Yellow) Urine Appearance (CLEAR) Urine pH (5-7) Ur Specific Gravit y (1.005-1.030) Urine Protein (Negative) Urine Glucose (UA) (Normal) Urine Ketones (Negative) Urine Blood (Negative) Urine Nitrate (Negative) Urine Bilirubin (Negative) Urine Urobilinogen (Negative) mg/dL Ur Leukocyte Michelle ase (Negative) Urine RBC (0-2) /hpf Urine WBC (0-5) /hpf Ur Squamous Epith Cells (0-5) /hpf Amorphous Sediment Urine Bacteria (NONE) /hpf Serum Ketones (Negative) 07/12/21 07/12/21 07/12/21 Range/Units 09:24 09:24 11:18 WBC (4.0-10.0) 10^3/ uL RBC (4.1-5.3) 10^6/u L Hgb (11.7-16.6) g/dL Hct (42.0-52.0) % MCV (80-94) fl MCH (28.0-34.0) pg MCHC (30.0-36.0) g/dL RDW (12.1-15.1) % Plt Count (130-400) 10^3/c mm MPV (7.4-10.4) fL Neut % (Auto) % Lymph % (Auto) % [place] % (Auto) % Eos % (Auto) % Baso % (Auto) % Neut # (Auto) (1.8-7.7) 10^3/u L Lymph # (Auto) (0.8-4.8) 10^3/u L [place] # (Auto) (0.2-0.9) 10^3/u L Eos # (Auto) (0.0-0.8) 10^3/u L Baso # (Auto) (0.0-0.1) 10^3/u L Nucleated RBC % (a uto) % Nucleated RBCs # /100WBC PT 48.00 H (12.1-14.9) SECO NDS INR 5.13 H* (0.8-1.2) Sodium (136-145) mmol/L Potassium (3.5-5.1) mmol/L Chloride (98-107) mmol/L Carbon Dioxide (22-29) mmol/L Anion Gap (5-19) BUN (8-23) mg/dL Creatinine (0.7-1.2) mg/dL GFR Calculation (90-130) mL/min Glucose (65-115) mg/dL POC Glucose (70-110) mg/dL Calculated Osmolal ity (285-295) mOsm/k g Lactic Acid (0.5-2.2) mmol/L Calcium (8.5-10.5) mg/dL Total Bilirubin (0.15-1.2) mg/dL AST (0-40) U/L ALT (0-41) U/L Alkaline Phosphata se (40-130) IU/L Total Protein (6.6-8.7) g/dL Albumin (3.5-5.2) g/dL Globulin (1.3-4.6) g/dL Lipase (13-60) U/L Vitamin B12 708 (232-1245) pg/mL TSH (0.27-4.20) uIU/ mL Urine Color (Yellow) Urine Appearance (CLEAR) Urine pH (5-7) Ur Specific Gravit y (1.005-1.030) Urine Protein (Negative) Urine Glucose (UA) (Normal) Urine Ketones (Negative) Urine Blood (Negative) Urine Nitrate (Negative) Urine Bilirubin (Negative) Urine Urobilinogen (Negative) mg/dL Ur Leukocyte Michelle ase (Negative) Urine RBC (0-2) /hpf Urine WBC (0-5) /hpf Ur Squamous Epith Cells (0-5) /hpf Amorphous Sediment Urine Bacteria (NONE) /hpf Serum Ketones Negative (Negative) Discharge Plan Discharge Patient Disposition: Admitted As Inpatient Admit Provider: Mike Davenport Clinical Impression: Acute encephalopathy, Atrial fibrillation, Congestive heart failure, Chronic anticoagulation, Coagulopathy, Cystitis Condition: Stable Coding Level of Care Code ED Route Driver Salesperson for Chg Fwd Exam Comprehensive
[2021-07-12 10:16] LABS: Glucose Urine UA Norm (Normal); Ketones Urine Negative (Negative); Protein Urine Neg (Negative); Specific Gravity, Urine 1.015 (1.005-1.030); Urine Appearance Hazy (CLEAR); Urine Color Yellow (Yellow); pH Urine 5 (5-7)
[2021-07-12 10:17] LABS: Add Urine Culture? Yes; Add Urine Microscopic? YES; Bacteria Urine 3+ /hpf; Bilirubin Urine Neg (Negative); Blood Urine 2+ (Negative); Leukocyte Esterase Urine 2+ (Negative); Nitrate Urine Positive (Negative); RBC Urine 0-4 /hpf (0-2); Urobilinogen Urine Norm (Negative); WBC Urine 25-40 /hpf (0-5)
[2021-07-12 10:27] LABS: Slide Review Slide Review Perform
--- NOTE | 2021-07-12 10:33 | XR_ITS ---
WS: [id number] Exam: XR chest 1V portable [id number] Date/Time of Exam: 07/12/2021 10:34 AM Reason For Exam: dyspnea/cough Comparison 06/24/2021. The lungs are clear and fully expanded. Normal cardiomediastinal silhouette. Signs of cardiac valve r eplacement. No pleural effusions. XR/XR chest 1V portable [id number] IMPRESSION: 1. No acute cardiopulmonary finding. No change.
--- NOTE | 2021-07-12 10:50 | CT_ITS ---
WS: [id number] Comparison 07/21/2020 Exam: CT abdomen pelvis w con* [id number] Date/Time of Exam: 07/12/2021 11:07 AM Reason For Exam: abd pain DLP: 2213.[address] scans at [facility] use at least one of these dose optimization techniques: automat ed exposure control; mA and/or kV adjustment per patient size (includes targeted exams where dose is matched to clinical indication); or iterative reconstruction. Lower lung zones are clear. The heart is enlarged. Cardiac valve replacement noted. The liver and spl een appear normal. Small stones in the gallbladder but no sign of acute cholecystitis. The pancreas i s unremarkable. Small hiatal hernia. The abdominal aorta is normal in caliber. The portal vein and IV C are patent. Normal adrenal glands. Nonobstructing stones in both kidneys. Multiple bilateral renal cysts are noted. No renal obstruction identified. Small bowel loops are not dilated. Normal appendix noted. No significant large bowel abnormality seen. No mass or adenopathy in the pelvis. No free air. A Arriola catheter bulb is noted in the urinary bladder. The bladder is collapsed. Fat filled ventral hernia noted. No destructive bone lesions seen. CT/CT abdomen pelvis w con* [id number] IMPRESSION: 1. No mass, lymphadenopathy or acute finding. 2. Nonobstructing bilateral renal calculi and bilateral renal cysts are noted. Chronic bilateral perinephric fat stranding. 3. Cholelithiasis but no sign of acute cholecystitis. 4. Ventral hernia containing omental fat.
[2021-07-12] MEDS: sodium chloride 0.9% 1,000 ML 999 ML IV (11:06)
--- NOTE | 2021-07-12 11:42 | PC.PHAR ---
pts verified medications-ext med history shows bumetanide last filled on 05/19/21 90d/s for 2mg bid-pts states the pt takes 2mg qam-ext med history shows carvedilol 6.25mg take 1 tablet po BID filled on 06/26/21 30d/s pts states the pt takes 1.5 tabs(9.375mg) bid-ext med history shows lantus solostar last filled 05/19/21 70 units bid-pts states normally the pt has been using 40 units qpm and 30 units qpm but states its been changing so states they have been doing a ss bid-ext med history shows hydroxyzine pamoate last filled on 06/05/21 for 25mg bid-pts states she only gives him 25mg hs
[2021-07-12] MEDS: diphenhydrAMINE 50 mg/mL SDV 1mL IVP (11:49)
[2021-07-12] MEDS: hydrocortisone 100 mg/2 mL SDV IVP (11:50)
[2021-07-12] MEDS: iodixanol 320 mg/mL 100mL Btl IV (12:07)
[2021-07-12 12:40] LABS: INR 5.13 (0.8-1.2)
--- NOTE | 2021-07-12 14:08 | P.HP_ITS ---
Providers/Chief Complaint Primary Care Provider: Faustina Gonzalez NP Chief Complaint: AMS, CONFUSED, LETHARGIC History of Present Illness Ry Loyd is a 65 year old male who presents to the emergency department after his noted this morning around 5 AM that he had a temperature elevation, and confusion. She relates that he has frequent UTIs and has had issues with mental status changes with them before. Prior to this his level activity is walking in the house with his walker, but is incontinent of urine. She reports after she noted the temperature this morning she gave him a dose of Augmentin, and brought him into the emergency department. She had been dealing with some fairly resistant infections lately for which she had been seen urology. A recent urine culture had shown Pseudomonas as well as ESBL. reports the patient has not had any exposure to Covid, has not been vaccinated, and has not previously had Covid. She denies that he has had any vomiting, or diarrhea. Patient himself is unable to participate in his history and physical. He will make eye contact and, and follow instructions. Review of Systems General: Reports: ROS unobtainable due to medical condition (Patient with acute encephalopathy unable to participate.) Medications/Allergies Home Medications Medication Instructions Recorded Confirmed Last Taken Type citalopram 10 mg tablet 10 mg PO QPM tab 12/03/19 07/12/21 07/11/21 History nitroglycerin 0.4 mg sublingual 0.4 mg SUBLINGUAL Q5M PRN 12/03/19 07/12/21 01/16/20 History tablet tamsulosin 0.4 mg capsule 0.4 mg PO DAILY@ cap 12/03/19 07/12/21 07/12/21 05:30 History pantoprazole [Protonix] 40 mg PO DAILY@12/25/19 07/12/21 07/12/21 05:30 History potassium chloride 20 meq PO BID 12/25/19 07/12/21 07/12/21 05:30 History lisinopril 2.5 mg tablet 2.5 mg PO DAILY@06/09/20 07/12/21 07/12/21 05:30 History aspirin 81 mg PO DAILY@10/10/20 07/12/21 07/12/21 05:30 History carvedilol 6.25 mg tablet 9.375 mg PO BID tab 10/30/20 07/12/21 07/12/21 05:30 History acetaminophen [Tylenol Extra 500 mg PO Q6H PRN 02/17/21 07/12/21 Unknown History Strength] atorvastatin 40 mg PO DAILY@02/17/21 07/12/21 07/11/21 History diltiazem HCl 120 mg PO DAILY@02/17/21 07/12/21 07/12/21 05:30 History simethicone 80 mg PO DAILY PRN 02/17/21 07/12/21 02/16/21 History warfarin 10 mg tablet 10 mg PO .MONDAY THREMonday03/04/21 07/12/21 03/05/21 History warfarin 7.5 mg tablet 7.5 mg PO .ON SAT AND SUN 03/04/21 07/12/21 07/11/21 History methenamine hippurate 1 gram tablet 1 g PO BID #180 tab 03/25/21 07/12/21 07/12/21 05:30 Rx ascorbic acid (vitamin C) 1,000 mg 1 g PO BID tab 04/23/21 07/12/21 07/12/21 05:30 History tablet bumetanide 2 mg tablet 2 mg PO QAM 04/23/21 07/12/21 07/11/21 History hydroxyzine pamoate 25 mg capsule 25 mg PO BEDTIME 04/23/21 07/12/21 07/11/21 History prednisone 5 mg tablet 7.5 mg PO QAM tab 04/23/21 07/12/21 07/12/21 05:30 History amoxicillin 500 mg capsule 500 mg PO BID 06/28/21 07/12/21 07/11/21 History amoxicillin 875 mg-potassium 1 tab PO BID #20 tab 07/07/21 07/12/21 07/12/21 05:30 Rx clavulanate 125 mg tablet Lactobacillus acidophilus 20,000 mmu cells PO QPM 07/12/21 07/12/21 07/11/21 H istory [Florajen Acidophilus] PNV cmb#95-ferrous fumarate-FA 1 tab PO DAILY@06 07/12/21 07/12/21 07/12/21 05:30 History [ Multivitamins] Voltaren Arthritis Pain 4 g TOPICAL QID PRN 07/12/21 07/12/21 Unknown History cholecalciferol (vitamin D3) 10,000 unit PO DAILY 07/12/21 07/12/21 Unknown History [Vitamin D3] insulin glargine [Lantus Solostar See Rx Instructions .ROUTE .COMPLEX 07/12/21 07/12/21 07/11/21 History U-100 Insulin] 30 units leflunomide 10 mg PO QAM 07/12/21 07/12/21 07/11/21 History zinc 1 cap PO DAILY 07/12/21 07/12/21 Unknown History Allergies Allergy/AdvReac Type Severity Reaction Status Date / Time ceftriaxone [From Rocephin] Allergy Intermediate ALGY-Difficulty Verified 07/12/21 11:42 Breathing levofloxacin [From Levaquin] Allergy Mild ADR-Itching Verified 07/12/21 11:42 iodine Allergy Unknown Unknown Verified 07/12/21 11:42 clopidogrel [From Plavix] AdvReac Intermediate Unknown Verified 07/12/21 11:42 PFSH Acute PFSH: Medical History (Updated 07/12/21 @ 14:21 by Mike Davenport MD) Aortic stenosis Had TAVR replacement 2017. 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 that looks to have ended early 02/2021 Essential hypertension Gout Hx of [place] spotted fever Ischemic cardiomyopathy Left ventricular hypertrophy Obesity AJAY (obstructive sleep apnea) Pulmonary HTN Recurrent UTI Multidrug-resistant organisms Renal calculi Rheumatoid arthritis Thalassemia Surgical History H/O lithotripsy S/P TAVR (transcatheter aortic valve replacement) (~2017) Family History Mother Stroke Father Myocardial infarction Other CAD (coronary artery disease) Chronic kidney disease (CKD) Diabetes Hypertension Social History Smoking and tobacco status: never smoked Quit status (tobacco): has quit using tobacco Year quit tobacco: 2019 - Chewing Tobacco Former quit date comment: Hx of 1/2 can x 50 Years Second hand smoke exposure: No Smoking risk assessment/counseling performed?: No Alcohol intake: former Lives independently: Yes Household members: spouse Marital status: Current occupational status: retired and disabled History of recent travel: No Current gender identity: Male Vitals/I&O/Wt Last Vital Signs Temp 98.7 F 07/12/21 08:54 Pulse 80 07/12/21 10:03 Resp 34 H 07/12/21 10:03 BP 112/65 07/12/21 10:03 Pulse Ox 95 07/12/21 10:03 07/11/21 07/12/21 07/12/21 22:59 06:59 14:59 Intake Total 100 / 100 Balance 100 / 100 Weight last 48 hrs Weight 117.934 kg Physical Exam Narrative: EXAM NARRATIVE: General exam is a confused white male, who can answer few questions. HEENT: Pupils equally round. Oropharynx clear. Neck is supple no lymphadenopathy or thyromegaly Cardiovascular regular rate and rhythm without murmur. Lungs clear no wheezing or crackles Abdomen is soft nontender positive bowel sounds demonstrates Arriola Extremities no cyanosis clubbing or edema, cap refill brisk Skin no rash Neuro confused with no obvious focal deficits. Urinary Catheter Management^: Arriola: Cath Placed During This Visit: yes Urinary Catheter Date of Insertion: 07/12/21 Urinary Catheter Time of Insertion: 09:15 Data : 07/12/21 09:24 07/12/21 09:24 Micro: Microbiology 07/12/21 11:18 Blood Culture - Preliminary Blood SPECIMEN COLLECTED 07/12/21 09:24 Blood Culture - Preliminary Blood SPECIMEN COLLECTED Other data: INR elevated at 5.13 Lactic acid 1.6 LFTs, calcium normal Lipase normal Urinalysis demonstrates 25-40 white blood cells, 0-4 reds Serum ketones negative Serum ketones negative Chest x-ray no acute findings CT demonstrated bilateral renal nonobstructive calculi. Cholelithiasis was also noted. A&P Assessment and plan (1) Acute encephalopathy: Patient with history of underlying dementia. He comes in with significant change with more confusion than usual. He has a complicated medical history, with the foremost reason for his acute encephalopathy likely recurrent UTI. He has had resistant organisms with his most recent culture demonstrating ESBL and Pseudomonas. At this point Primaxin will be initiated Urine culture, blood culture Secondary to his multiple comorbidities will check CT head without contrast, T SH, B12. Status: Acute (2) Recurrent UTI: Urine culture Initiate Primaxin which his last organisms were sensitive to. This appears to be a complicated UTI. Abdominal pelvic CT scan done today demonstrated nonobstructive bilateral renal calculi Secondary to his history of elevated temperature Covid PCR testing will be done. 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 Status: Chronic (8) Atrial fibrillation: Check EKG for baseline. On physical exam appeared to be regular. Status: Chronic (9) Rheumatoid arthritis: On chronic steroids. Increase dose to 7.5 mg twice daily for stress dosing. Status: Chronic Additional A&P Information Full Code INR is elevated. No other pharmacologic DVT prophylaxis is warranted currently. Attestations Medical Necessity Statement*: Will need greater than 2 midnight stay for evaluation and treatment of acute encephalopathy, complicated UTI Time Spent in Patient Care: Greater than 35 minutes Coding Level of Care Code Acute Administrative Services Manager for [facility] Fwd Diagnoses Acute encephalopathy G93.40 Recurrent UTI N39.0 Coagulopathy D68.9 Diabetes E11.22; N18.2; Z79.4 Diabetes mellitus type: type 2 Diabetes mellitus group home insulin use: with group home use Diabetes mellitus complication status: with kidney complications Diabetes mellitus complication detail: with chronic kidney disease Chronic kidney disease stage: stage 2 (mild) Thalassemia D56.9 S/P TAVR (transcatheter aortic valve replacement) Z95.2 Dementia F03.90 Atrial fibrillation I48.91 Rheumatoid arthritis M06.9
--- NOTE | 2021-07-12 14:35 | CT_ITS ---
WS: [id number] Exam: CT head wo con* [id number] Date/Time of Exam: 07/12/2021 3:23 PM Reason For Exam: confusion DLP: 1043.[address] scans at [facility] use at least one of these dose optimization techniques: automat ed exposure control; mA and/or kV adjustment per patient size (includes targeted exams where dose is matched to clinical indication); or iterative reconstruction. Comparison 02/17/2021. No sign of acute intracranial bleed or space-occupying mass. The ventricles and basal cisterns are no rmal in size. There are scattered areas of decreased attenuation in the cerebral white matter substan ce most likely from microvascular ischemic change and/or old infarcts. Old left frontal lobe infarct is noted. Old right cerebellar infarct. No extra-axial fluid collections are seen. The skull is intac t. The mastoids and facial sinuses are clear. Atherosclerotic plaquing of the intracranial internal c arotid arteries. CT/CT head wo con* [id number] IMPRESSION: 1. No sign of acute bleed or space-occupying mass. 2. Moderately advanced atrophic changes with old infarct in the left frontal lo be and the right cerebellar hemisphere. Diffuse atrophy and microvascular ische debbie change.
--- NOTE | 2021-07-12 14:38 | ECG_ITS ---
[facility] Test Date: 2021-07-12 Pat Name: Ry Loyd Department: Room: Gender: Male Bath Tester: : 1955 Requested By: Mike Lindsay Order Number: [id number] Morena MD: Cassy Monreal M.D. Measurements Intervals Energy Rate: 87 P: NV: QRS: -23 QRSD: 89 T: 119 QT: 342 QTc: 413 Interpretive Statements ATRIAL FIBRILLATION BORDERLINE LEFT AXIS DEVIATION [QRS AXIS < -20] NONSPECIFIC T-WAVE ABNORMALITY Compared to ECG 06/24/2021 23:14:45 Possible ischemia no longer present T-wave abnormality still present Electronically Signed On 07-12-2021 20:35:28 CDT by Cassy Monreal M.D. [email or web address]/store/[id number] f
[2021-07-12 14:48] LABS: SARS Covid-2 Antigen Negative (Negative)
[2021-07-12 16:53] LABS: Vitamin B12 708 pg/mL (232-1245)
[2021-07-12 21:41] LABS: Thyroid Stimulating Hormone 1.51 uIU/mL (0.27-4.20)
[2021-07-12] MEDS: carvedilol 6.25 mg Tablet 9.375 MG PO (23:44)
[2021-07-12] MEDS: atorvastatin 40 mg Tablet PO (23:46)
[2021-07-12] MEDS: predniSONE 5 mg Tablet 7.5 MG PO (23:46)
[2021-07-12 23:57] LABS: Glucose Point of Care 227 mg/dL (70-110)
[2021-07-13] VITALS (9 sets, daily range): BP systolic 109–164; BP diastolic 65–79; PULSE 83–110; RESP 16–30; TEMP 36.3–37.6; O2SAT 82–100
--- NOTE | 2021-07-13 02:56 | PC.RESP ---
followed Nurses into room to find patient with oxygen off- patient was confused..Spo2 low- he was trying to climb out of bed as well. trying to talk to him about the O2 and how important it was to wear it- Spo2 82% placed on patient at 4l and then titrated to 2l after his Spo2 was above 90%
--- NOTE | 2021-07-13 03:49 | ECG_ITS ---
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 Measurements Intervals [place] Rate: 105 P: MA: QRS: 0 QRSD: 78 T: 148 QT: 309 QTc: 409 Interpretive Statements ATRIAL FIBRILLATION WITH RAPID VENTRICULAR RESPONSE ST DEVIATION AND MODERATE T-WAVE ABNORMALITY, CONSIDER LATERAL ISCHEMIA [-0.1+ mV T-WAVE IN I/aVL/V5/V6] Compared to ECG 07/12/2021 09:04:40 Possible ischemia now present T-wave abnormality still present Electronically Signed On 07-13-2021 17:09:03 CDT by Ari Pettit M.D. [email or web address] [email or web address] [email or web address].[employer]/store/OM/[id number]
[2021-07-13] MEDS: lisinopril 2.5 mg Tablet PO (05:18)
[2021-07-13] MEDS: tamsulosin 0.4 mg Capsule PO (05:18)
[2021-07-13] MEDS: bumetanide 1 mg Tablet 2 MG PO (05:18)
[2021-07-13] MEDS: dilTIAZem ER (24HR) 120 mg Capsule PO (05:18)
[2021-07-13] MEDS: pantoprazole DR 40 mg Tablet PO (05:18)
[2021-07-13 06:47] LABS: Glucose Point of Care 244 mg/dL (70-110)
[2021-07-13 07:02] LABS: Hematocrit 39.8 % (42.0-52.0); Hemoglobin 11.8 g/dL (11.7-16.6); Mean Corpuscular HGB Conc 29.6 g/dL (30.0-36.0); Mean Corpuscular Hemoglobin 18.2 pg (28.0-34.0); Mean Corpuscular Volume 61.5 fl (80-94); Platelet Count 183 10^3/cmm (130-400); Red Blood Count 6.47 10^6/uL (4.1-5.3); Red Cell Distribution Width 20.4 % (12.1-15.1); White Blood Count 17.6 10^3/uL (4.0-10.0)
[2021-07-13 07:30] LABS: Alanine Aminotransferase 27 U/L (0-41); Albumin Level 3.2 g/dL (3.5-5.2); Alkaline Phosphatase 71 IU/L (40-130); Anion Gap 16.4 (5-19); Aspartate Amino Transferase 18 U/L (0-40); Blood Urea Nitrogen 32 mg/dL (8-23); Carbon Dioxide 21 mmol/L (22-29); Chloride 106 mmol/L (98-107); Globulin 2.4 g/dL (1.3-4.6); Glomerular Filtration Rate 84.2 mL/min (90-130); Glucose 245 mg/dL (65-115); Osmolality Calculated 303 mOsm/kg (285-295); Potassium 4.4 mmol/L (3.5-5.1); Sodium 139 mmol/L (136-145); Total Bilirubin 0.9 mg/dL (0.15-1.2); Total Protein 5.6 g/dL (6.6-8.7)
[2021-07-13 07:42] LABS: Slide Review Slide Review Perform
[2021-07-13 07:55] LABS: Absolute Segmented Neutrophil 11.3 10/cmm (1.6-7.1); Band Neutrophils Absolute 4.2 10^3/cmm (0.0-1.2); Lymphocytes 11 %; Monocytes Absolute 0.2 10^3/cmm (0.1-0.6); Segmented Neutrophils 64 %; Total Cells Counted 100 (0-100)
[2021-07-13 07:56] LABS: Absolute Neutrophil 15.5 10^3/cmm (1.4-6.5); Anisocytosis 2+; Eosinophils 0 %; Hypochromasia 2+; Lymphocytes Absolute 1.9 10^3/cmm (1.2-3.4); Microcytosis 2+; Platelet Estimate Normal (Normal); Poikilocytosis 2+
[2021-07-13 08:04] LABS: INR 5.13 (0.8-1.2)
--- NOTE | 2021-07-13 09:04 | PC.CHAP ---
Pastoral Care Encounter/Spiritual Assessment Type of Contact [] Declined top dyeing machine tender visit [] Patient/Family/Request visit [] Outpatient visit [] Follow-up visit [] Physician referral [] Code/Alert [x] Routine visit [] Staff referral [] Actively dying [] Patient sleeping [] Family support [] [] Out of room [] Palliative care [] [] Receiving care in room [] Pre-surgical visit [] Trauma [] Long length of stay [] ICU visit [] Other: Relational/Emotional Strength [x] Patient feels connected with others/family/visitors/staff [] Distress [] Loneliness/isolation [] Abandonment Spirituality of Patient [x] Person of Nellie [] Attends Rastafari of their Nellie [] Believes in Prayer [] Reads Bible or Presybeterian materials [] There are Spiritual issues to be addressed [employer] Interventions [x] Prayer [] Active listening [] Non-anxious presence [] Spiritual/emotional support [] Crisis/trauma care [] Spiritual counseling [] Bereavement support [] Provided bereavement packet [] Provided Bible/devotional materials [] Provided toy/stuffed animal, coloring book to patient or family member [] Provided Communion [] Anointing/[place] [] Salvation [x] Completed spiritual assessment [] Other: Impact on Illness or Injury [] Angry [] Fearful [] Anxious [] Often cries [] Exhaustion [] Unable to work [] Unable to attend religion [] Unable to walk/stand [] Unable to read [] Unable to drive [] Unable to eat/drink [] Unable to sleep [] Unable to be with family [] Patient intubated [] Other: Summary Time spent with patient 10 min
--- NOTE | 2021-07-13 10:40 | P.PN_ITS ---
Subjective Subjective: Interval history: Ry reports he is doing okay today. He is up in a chair when I walk in the room, and seems improved. Medications: Reviewed: Yes Vitals/I&O/Wt Last Vital Signs Temp 99.7 F H 07/13/21 08:00 Pulse 97 07/13/21 08:43 Resp 18 07/13/21 08:00 BP 122/70 07/13/21 08:00 Pulse Ox 98 07/13/21 08:43 07/12/21 07/13/21 07/13/21 22:59 06:59 14:59 Intake Total 1000 / 1100 800 / 1900 340 / 340 Output Total 500 / 500 1300 / 1300 Balance 1000 / 1100 300 / 1400 -960 / -960 Weight last 48 hrs Weight 117.934 kg Weight 117.934 kg Physical Exam Narrative: EXAM NARRATIVE: General exam no distress. More verbal than yesterday. Appears to be back to his baseline. Neck is supple no lymphadenopathy or thyromegaly Cardiovascular irregular, irregular rhythm without murmur. Lungs clear no wheezing or crackles Abdomen is soft nontender positive bowel sounds Extremities no cyanosis clubbing or edema, cap refill brisk Neuro: No focal deficits Urinary Catheter Management^: Arriola: Cath Placed During This Visit: yes Reason for Continuing Indwelling Catheter: Acute Urinary Retention or Obstruction Urinary Catheter Date of Insertion: 07/12/21 Urinary Catheter Time of Insertion: 09:15 Data : 07/13/21 06:33 07/13/21 06:33 Micro: Microbiology 07/12/21 09:24 Blood Culture - Preliminary Blood NEGATIVE TO DATE 07/12/21 09:15 Urine Culture - Preliminary Urine,Clean Catch 07/12/21 11:18 Blood Culture - Preliminary Blood SPECIMEN COLLECTED A&P Assessment and plan (1) Acute encephalopathy: Patient with history of underlying dementia. He comes in with significant change with more confusion than usual. He has a complicated medical history, with the foremost reason for his acute encephalopathy likely recurrent UTI. He has had resistant organisms with his most recent culture demonstrating ESBL and Pseudomonas. Continue Primaxin, awaiting urine and blood cultures Secondary to his multiple comorbidities CT head was checked which showed no acute changes. TSH and B12 level were normal. Status: Acute (2) Recurrent UTI: Await urine culture Continue Primaxin This appears to be a complicated UTI. Abdominal pelvic CT scan on admission demonstrated nonobstructive bilateral renal calculi Secondary to his history of elevated temperature Covid PCR testing was ordered which is pending Status: Acute (3) Coagulopathy: INR still elevated today. Continue to hold Coumadin. Check INR tomorrow. Status: Acute (4) Diabetes: Sliding scale insulin Consistent carb diet Initiate long-acting insulin, lower dose, at bedtime as p.o. intake has increased Status: Chronic Qualifiers: Diabetes mellitus type: type 2 Diabetes mellitus retirement insulin use: with terminal worker use Diabetes mellitus complication status: with kidney complications Diabetes mellitus complication detail: with chronic kidney disease Chronic kidney disease stage: stage 2 (mild) Qualified Code(s): E11.22 - Type 2 diabetes mellitus with diabetic chronic kidney disease; N18.2 - Chronic kidney disease, stage 2 (mild); Z79.4 - halfway (current) use of insulin (5) Thalassemia: Consistent with his presentation with low MCV Status: Chronic (6) S/P TAVR (transcatheter aortic valve replacement): Status: Chronic (7) Dementia: Baseline is the ability to ambulate, incontinent, ability to carry on a conversation but forgetful. Status: Chronic (8) Atrial fibrillation: EKG demonstrates atrial fibrillation, normal axis, no acute changes. Status: Chronic (9) Rheumatoid arthritis: On chronic steroids. Increase dose to 7.5 mg twice daily for stress dosing. Will decrease back down to his baseline on discharge. Status: Chronic Additional A&P Information Full Code INR is elevated. No other pharmacologic DVT prophylaxis is warranted currently. Attestations Medical Necessity Statement*: Needs continued hospitalization for treatment of acute encephalopathy, complicated UTI with IV antibiotics. Coding Level of Care Code Acute Competency Evaluated Nurse Aide for [facility] Diagnoses Acute encephalopathy G93.40 Recurrent UTI N39.0 Coagulopathy D68.9 Diabetes E11.22; N18.2; Z79.4 Diabetes mellitus type: type 2 Diabetes mellitus retirement insulin use: with retirement use Diabetes mellitus complication status: with kidney complications Diabetes mellitus complication detail: with chronic kidney disease Chronic kidney disease stage: stage 2 (mild) Thalassemia D56.9 S/P TAVR (transcatheter aortic valve replacement) Z95.2 Dementia F03.90 Atrial fibrillation I48.91 Rheumatoid arthritis M06.9
[2021-07-13] MEDS: potassium chloride ER 20 mEq Tablet PO ×2 (10:57→19:52)
[2021-07-13] MEDS: carvedilol 6.25 mg Tablet 9.375 MG PO ×2 (10:57→19:52)
[2021-07-13] MEDS: predniSONE 5 mg Tablet 7.5 MG PO ×2 (10:57→19:51)
[2021-07-13 11:49] LABS: Glucose Point of Care 308 mg/dL (70-110)
[2021-07-13 18:10] LABS: Glucose Point of Care 169 mg/dL (70-110)
[2021-07-13] MEDS: atorvastatin 40 mg Tablet PO (19:52)
[2021-07-13] MEDS: citalopram 20 mg Tablet 10 MG PO (19:53)
[2021-07-13 20:23] LABS: Glucose Point of Care 231 mg/dL (70-110)
[2021-07-13] MEDS: insulin glargine 100 units/1 mL 20 UNIT SUBCUT (21:21)
--- NOTE | 2021-07-13 21:21 | PC.NURSE ---
i reported low temp 97.4 to nurse
[2021-07-14] VITALS (9 sets, daily range): BP systolic 95–146; BP diastolic 44–83; PULSE 87–105; RESP 16–22; TEMP 36.4–36.9; O2SAT 94–100
[2021-07-14 03:27] LABS: Basophils % 0.2 %; Eosinophils % 0.2 %; Hemoglobin 10.6 g/dL (11.7-16.6); Lymphocytes # 1.5 10^3/uL (0.8-4.8); Lymphocytes % 9.5 %; Mean Corpuscular HGB Conc 30.3 g/dL (30.0-36.0); Mean Corpuscular Volume 59.5 fl (80-94); Monocytes # 1.2 10^3/uL (0.2-0.9); Monocytes % 7.9 %; Neutrophils % 81.4 %; Nucleated Red Blood Cells % 0 %; Platelet Count 147 10^3/cmm (130-400); Red Blood Count 5.88 10^6/uL (4.1-5.3); Red Cell Distribution Width 19.4 % (12.1-15.1); White Blood Count 15.5 10^3/uL (4.0-10.0)
[2021-07-14 03:46] LABS: Anion Gap 11.5 (5-19); Blood Urea Nitrogen 39 mg/dL (8-23); Calcium 8.6 mg/dL (8.5-10.5); Carbon Dioxide 26 mmol/L (22-29); Chloride 106 mmol/L (98-107); Glomerular Filtration Rate 74.5 mL/min (90-130); Glucose 267 mg/dL (65-115); Osmolality Calculated 307 mOsm/kg (285-295); Potassium 4.5 mmol/L (3.5-5.1); Sodium 139 mmol/L (136-145)
--- NOTE | 2021-07-14 03:56 | PC.NURSE ---
i reported low temp 97.5 to nurse
[2021-07-14 04:00] LABS: Slide Review Slide Review Perform
[2021-07-14] MEDS: tamsulosin 0.4 mg Capsule PO (06:16)
[2021-07-14] MEDS: lisinopril 2.5 mg Tablet PO (06:16)
[2021-07-14] MEDS: bumetanide 1 mg Tablet 2 MG PO (06:16)
[2021-07-14] MEDS: pantoprazole DR 40 mg Tablet PO (06:16)
[2021-07-14] MEDS: dilTIAZem ER (24HR) 120 mg Capsule PO (06:16)
[2021-07-14 06:37] LABS: Glucose Point of Care 283 mg/dL (70-110)
--- NOTE | 2021-07-14 09:28 | PM.PN ---
Subjective Subjective: Interval history: Ry reports he is doing good. No complaints today. Medications: Reviewed: Yes Vitals/I&O/Wt Last Vital Signs Temp 97.8 F 07/14/21 07:46 Pulse 98 07/14/21 07:46 Resp 16 07/14/21 07:46 BP 133/83 07/14/21 07:46 Pulse Ox 100 07/14/21 07:46 07/13/21 07/14/21 07/14/21 22:59 06:59 14:59 Intake Total 200 / 640 3.333 / 643.333 Output Total 1300 / 2600 1810 / 4410 Balance -1100 / -1960 -1806.667 / -3766.667 Weight last 48 hrs Weight 117.934 kg Physical Exam Narrative: EXAM NARRATIVE: General exam no distress. Trying to call his when I entered the room. Neck is supple no lymphadenopathy or thyromegaly Cardiovascular irregular, irregular rhythm without murmur. Lungs clear no wheezing or crackles Abdomen is soft nontender positive bowel sounds Extremities no cyanosis clubbing or edema, cap refill brisk Neuro: No focal deficits, mild confusion Urinary Catheter Management^: Arriola: Cath Placed During This Visit: yes Reason for Continuing Indwelling Catheter: Acute Urinary Retention or Obstruction Urinary Catheter Date of Insertion: 07/12/21 Urinary Catheter Time of Insertion: 09:15 Data : 07/14/21 02:40 07/14/21 02:40 Micro: Microbiology 07/12/21 11:18 Blood Culture - Preliminary Blood NEGATIVE TO DATE 07/12/21 09:24 Blood Culture - Preliminary Blood NEGATIVE TO DATE 07/12/21 09:15 Urine Culture - Preliminary Urine,Clean Catch A&P Assessment and plan (1) Acute encephalopathy: Patient with history of underlying dementia. He comes in with significant change with more confusion than usual. He has a complicated medical history, with the foremost reason for his acute encephalopathy likely recurrent UTI. He has had resistant organisms with his most recent culture demonstrating ESBL and Pseudomonas. Continue Primaxin, awaiting urine and blood cultures Secondary to his multiple comorbidities CT head was checked which showed no acute changes. TSH and B12 level were normal. Status: Acute (2) Recurrent UTI: Await urine culture Continue Primaxin This appears to be a complicated UTI. Abdominal pelvic CT scan on admission demonstrated nonobstructive bilateral renal calculi Secondary to his history of elevated temperature Covid PCR testing was ordered which is pending Status: Acute (3) Coagulopathy: INR down decreasing. Consult pharmacy for resumption of Coumadin. Status: Acute (4) Diabetes: Sliding scale insulin Consistent carb diet Initiate long-acting insulin, lower dose, at bedtime as p.o. 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 Status: Chronic (8) Atrial fibrillation: EKG demonstrates atrial fibrillation, normal axis, no acute changes. Status: Chronic (9) Rheumatoid arthritis: On chronic steroids. Increase dose to 7.5 mg twice daily for stress dosing. Will decrease back down to his baseline on discharge. Status: Chronic Additional A&P Information Full Code INR is elevated. No other pharmacologic DVT prophylaxis is warranted currently. Attestations Medical Necessity Statement*: Needs continued hospitalization for IV antibiotics secondary to complicated UTI pending culture results. Patient with history of Pseudomonas, ESBL on last culture. Coding Level of Care Code Acute Mortgage Servicing Specialist for [facility] Diagnoses Acute encephalopathy G93.40 Recurrent UTI N39.0 Coagulopathy D68.9 Diabetes E11.22; N18.2; Z79.4 Diabetes mellitus type: type 2 Diabetes mellitus residential insulin use: with residential use Diabetes mellitus complication status: with kidney complications Diabetes mellitus complication detail: with chronic kidney disease Chronic kidney disease stage: stage 2 (mild) Thalassemia D56.9 S/P TAVR (transcatheter aortic valve replacement) Z95.2 Dementia F03.90 Atrial fibrillation I48.91 Rheumatoid arthritis M06.9
[2021-07-14] MEDS: carvedilol 6.25 mg Tablet 9.375 MG PO ×2 (09:47→17:48)
[2021-07-14] MEDS: predniSONE 5 mg Tablet 7.5 MG PO ×2 (09:48→17:49)
[2021-07-14] MEDS: potassium chloride ER 20 mEq Tablet PO ×2 (09:48→17:48)
[2021-07-14 11:49] LABS: Glucose Point of Care 389 mg/dL (70-110)
[2021-07-14 16:05] LABS: Coronavirus Test Green County Not Detected
[2021-07-14 16:51] LABS: Glucose Point of Care 319 mg/dL (70-110)
[2021-07-14] MEDS: atorvastatin 40 mg Tablet PO (17:48)
[2021-07-14] MEDS: citalopram 20 mg Tablet 10 MG PO (17:49)
[2021-07-14] MEDS: nystatin powder 15 gm Btl 1 APPLIC TOPICAL ×2 (17:55→22:26)
[2021-07-14 20:32] LABS: Glucose Point of Care 255 mg/dL (70-110)
[2021-07-14] MEDS: hyDROXYzine 25 mg Capsule PO (22:05)
[2021-07-14] MEDS: insulin glargine 100 units/1 mL 20 UNIT SUBCUT (22:24)
[2021-07-15 04:00] VITALS: BP 115/63; PULSE 81; RESP 20; TEMP 36.7; O2SAT 100
[2021-07-15 04:00] LABS: Basophils % 0.2 %; Eosinophils # 0.1 10^3/uL (0.0-0.8); Eosinophils % 0.8 %; Hematocrit 35.8 % (42.0-52.0); Hemoglobin 10.8 g/dL (11.7-16.6); Lymphocytes # 1.5 10^3/uL (0.8-4.8); Lymphocytes % 11.2 %; Mean Corpuscular HGB Conc 30.2 g/dL (30.0-36.0); Mean Corpuscular Hemoglobin 18.2 pg (28.0-34.0); Mean Corpuscular Volume 60.3 fl (80-94); Monocytes # 1.1 10^3/uL (0.2-0.9); Monocytes % 7.9 %; Neutrophils # 10.74 10^3/uL (1.8-7.7); Nucleated Red Blood Cells % 0 %; Platelet Count 151 10^3/cmm (130-400); Red Blood Count 5.94 10^6/uL (4.1-5.3); Red Cell Distribution Width 19.7 % (12.1-15.1); White Blood Count 13.6 10^3/uL (4.0-10.0)
[2021-07-15 04:24] LABS: INR 2.35 (0.8-1.2)
[2021-07-15 04:31] LABS: Anion Gap 10.9 (5-19); Blood Urea Nitrogen 37 mg/dL (8-23); Calcium 8.9 mg/dL (8.5-10.5); Carbon Dioxide 28 mmol/L (22-29); Chloride 104 mmol/L (98-107); Glomerular Filtration Rate 96.4 mL/min (90-130); Glucose 228 mg/dL (65-115); Osmolality Calculated 304 mOsm/kg (285-295); Potassium 3.9 mmol/L (3.5-5.1); Sodium 139 mmol/L (136-145)
[2021-07-15 04:32] LABS: Slide Review Slide Review Perform
[2021-07-15 05:08] VITALS: PULSE 90; O2SAT 97
[2021-07-15] MEDS: bumetanide 1 mg Tablet 2 MG PO (05:27)
[2021-07-15] MEDS: lisinopril 2.5 mg Tablet PO (05:28)
[2021-07-15] MEDS: dilTIAZem ER (24HR) 120 mg Capsule PO (05:28)
[2021-07-15] MEDS: tamsulosin 0.4 mg Capsule PO (05:28)
[2021-07-15] MEDS: pantoprazole DR 40 mg Tablet PO (05:28)
[2021-07-15 05:55] LABS: Glucose Point of Care 220 mg/dL (70-110)
[2021-07-15 06:50] LABS: Glucose Point of Care 220 mg/dL (70-110)
[2021-07-15 07:50] VITALS: BP 126/75; PULSE 100; RESP 18; TEMP 36.6; O2SAT 99
--- NOTE | 2021-07-15 09:26 | PC.SOCIAL ---
IMM Update Pg 2 of IMM updated and reviewed with patient. Verbalized understanding. Initial, dated and timed. Copy given to patient.
[2021-07-15] MEDS: polyethylene glycol 3350 Pkt 17 gm PO (09:28)
[2021-07-15] MEDS: hyDROXYzine 25 mg Capsule PO (09:28)
[2021-07-15] MEDS: nystatin powder 15 gm Btl 1 APPLIC TOPICAL (09:28)
[2021-07-15] MEDS: carvedilol 6.25 mg Tablet 9.375 MG PO (09:28)
[2021-07-15] MEDS: potassium chloride ER 20 mEq Tablet PO (09:28)
[2021-07-15] MEDS: predniSONE 5 mg Tablet 7.5 MG PO (09:28)
--- NOTE | 2021-07-15 10:40 | SUR.PREOP ---
TIME OUT FOR PICC LINE INSERTION
--- NOTE | 2021-07-15 10:47 | PC.NURSE ---
Patient going down for Picc.
--- NOTE | 2021-07-15 11:00 | XR_ITS ---
WS: [id number] Exam: XR chest 1V portable [id number] Date/Time of Exam: 07/15/2021 11:00 AM Reason For Exam: picc placement A right-sided PICC line is been placed and probably ends at the cavoatrial junction. There is patchy infiltrate in the right lung. The left lung is clear. Heart size is within normal limits for techniqu e. Regional bony elements are intact. The mediastinum is not widened for a radiographic technique. Si gns of cardiac valve replacement. XR/XR chest 1V portable [id number] IMPRESSION: 1. Right-sided PICC line probably ending near the cavoatrial junction. 2. There are patchy groundglass infiltrates in the right lung suspicious for pn eumonia
--- NOTE | 2021-07-15 11:29 | PC.CHAP ---
Pastoral Care Encounter/Spiritual Assessment Type of Contact [x] Declined fur scraper visit [] Patient/Family/Request visit [] Outpatient visit [] Follow-up visit [] Physician referral [] Code/Alert [] Routine visit [] Staff referral [] Actively dying [] Patient sleeping [] Family support [] [] Out of room [] Palliative care [] [] Receiving care in room [] Pre-surgical visit [] Trauma [] Long length of stay [] ICU visit [] Other: Relational/Emotional Strength [] Patient feels connected with others/family/visitors/staff [] Distress [] Loneliness/isolation [] Abandonment Spirituality of Patient [] Person of Nellie [] Attends Yazidism of their Nellie [] Believes in Prayer [] Reads Bible or Latter Day materials [] There are Spiritual issues to be addressed Spring Coverer Interventions [] Prayer [] Active listening [] Non-anxious presence [] Spiritual/emotional support [] Crisis/trauma care [] Spiritual counseling [] Bereavement support [] Provided bereavement packet [] Provided Bible/devotional materials [] Provided toy/stuffed animal, coloring book to patient or family member [] Provided Communion [] Anointing/[place] [] Salvation [] Completed spiritual assessment [] Other: Impact on Illness or Injury [] Angry [] Fearful [] Anxious [] Often cries [] Exhaustion [] Unable to work [] Unable to attend oriental orthodox [] Unable to walk/stand [] Unable to read [] Unable to drive [] Unable to eat/drink [] Unable to sleep [] Unable to be with family [] Patient intubated [] Other: Summary Declined fur scraper visit Time spent with patient 5 mins
--- NOTE | 2021-07-15 12:03 | P.DS_ITS ---
Discharge Providers Date of Admission: 07/12/21 12:41 Date of Discharge: July 15, 2021 Attending Provider at Admission: Mike Davenport MD Attending Provider at Discharge: Mike Davenport MD Primary Care Provider: Faustina Gonzalez NP Diagnoses at Discharge Discharge Diagnosis (1) Acute encephalopathy: Status: Acute (2) Recurrent UTI: Status: Acute Permanent problem details: Multidrug-resistant organisms (3) Coagulopathy: Status: Acute (4) Diabetes: Status: Chronic Qualifiers: Chronic kidney disease stage: stage 2 (mild) Diabetes mellitus complication detail: with chronic kidney disease Diabetes mellitus complication status: with kidney complications 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: with regional intermodal truck driver use Diabetes mellitus type: type 2 Qualified Code(s): E11.22 - Type 2 diabetes mellitus with diabetic chronic kidney disease; N18.2 - Chronic kidney disease, stage 2 (mild); Z79.4 - long term acute care registered nurse (current) use of insulin (5) Thalassemia: Status: Chronic (6) S/P TAVR (transcatheter aortic valve replacement): Status: Chronic (7) Dementia: Status: Chronic (8) Atrial fibrillation: Status: Chronic (9) Rheumatoid arthritis: Status: Chronic Reason for Visit Reason for Visit: AMS, CONFUSED, LETHARGIC Hospital Course Hospital Course Ry is a 65-year-old white male who presented with his with history of confusion. He was found to have a UTI. He has had a presentation like this similarly. He has a history of multidrug-resistant urinary organisms. He was placed on Primaxin, and monitored closely. INR was significantly elevated on admission and his Coumadin held. With the above treatment by the next day his e ncephalopathy was improving. Urine culture eventually returned ESBL, sensitive to Carbapenem's. A PICC line was placed July 15. He will get 12 more days of IV ertapenem. He will follow-up with urology in 7 to 10 days. PICC line to be removed after infusion has been completed. At that point he can resume his home amoxicillin. His leflunomide will also be held while treatment is undergoing. Coumadin dosing was changed to 7.5 mg daily. INR tomorrow reported through his primary. Physical Exam Narrative: EXAM NARRATIVE: General exam no distress Neck is supple no lymphadenopathy or thyromegaly Cardiovascular regular in rhythm without murmur Lungs clear Abdomen is soft with positive bowel sounds Extremities no cyanosis clubbing or edema Urinary Catheter Management^: Arriola: Cath Placed During This Visit: yes Reason for Continuing Indwelling Catheter: Other Urinary Catheter Date of Insertion: 07/12/21 Urinary Catheter Time of Insertion: 09:15 Discharge Data Data Completed and Pending: Completed Studies During Hospitalization Category Date Time Status CT abdomen pelvis w con* [id number] Stat Cat Scan 07/12/21 10:[address] head wo con* 7 0450 Urgent Cat Scan 07/12/21 14:35 Completed CXRP [XR chest 1V portable [id number]] R outine Exams 07/15/21 11:00 Completed XR chest 1V olga lidia ble [id number] Stat Exams 07/12/21 10:33 Completed Pending at discharge Category Date Time Status Blood Culture Sta t Lab 07/12/21 11:18 Results Labs from last 24 hours 07/15/21 07/15/21 07/15/21 06:17 05:50 03:30 WBC RBC Hgb Hct MCV MCH MCHC RDW Plt Count MPV Neut % (Auto) Lymph % (Auto) [place] % (Auto) Eos % (Auto) Baso % (Auto) Neut # (Auto) Lymph # (Auto) [place] # (Auto) Eos # (Auto) Baso # (Auto) Nucleated RBC % (a uto) Nucleated RBCs # PT INR Sodium 139 Potassium 3.9 Chloride 104 Carbon Dioxide 28 Anion Gap 10.9 BUN 37 H Creatinine 0.8 GFR Calculation 96.4 Glucose 228 H POC Glucose 220 H 220 H Calculated Osmolal ity 304 H Calcium 8.9 Nasal/Oral COVID-1 9 PCR 07/15/21 07/15/21 07/14/21 03:30 03:30 20:20 WBC 13.6 H RBC 5.94 H Hgb 10.8 L Hct 35.8 L MCV 60.3 L MCH 18.2 L MCHC 30.2 RDW 19.7 H Plt Count 151 MPV Not Reportable Neut % (Auto) 79.0 Lymph % (Auto) 11.2 [place] % (Auto) 7.9 Eos % (Auto) 0.8 Baso % (Auto) 0.2 Neut # (Auto) 10.74 H Lymph # (Auto) 1.5 [place] # (Auto) 1.1 H Eos # (Auto) 0.1 Baso # (Auto) 0.0 Nucleated RBC % (a uto) 0 Nucleated RBCs # 0.0 PT 26.20 H INR 2.35 H Sodium Potassium Chloride Carbon Dioxide Anion Gap BUN Creatinine GFR Calculation Glucose POC Glucose 255 H Calculated Osmolal ity Calcium Nasal/Oral COVID-1 9 PCR 07/14/21 07/12/21 16:37 13:05 WBC RBC Hgb Hct MCV MCH MCHC RDW Plt Count MPV Neut % (Auto) Lymph % (Auto) [place] % (Auto) Eos % (Auto) Baso % (Auto) Neut # (Auto) Lymph # (Auto) [place] # (Auto) Eos # (Auto) Baso # (Auto) Nucleated RBC % (a uto) Nucleated RBCs # PT INR Sodium Potassium Chloride Carbon Dioxide Anion Gap BUN Creatinine GFR Calculation Glucose POC Glucose 319 H Calculated Osmolal ity Calcium Nasal/Oral COVID-1 9 PCR Not detected Vitals: Last Vital Signs Temp 97.9 F 07/15/21 07:50 Pulse 100 07/15/21 07:50 Resp 18 07/15/21 07:50 BP 126/75 07/15/21 07:50 Pulse Ox 99 07/15/21 07:50 Discharge Plan Discharge Patient Disposition: Home Health Service Condition: Stable Prescriptions: New warfarin 5 mg tablet 7.5 mg PO DAILY Qty: 45 RF: 0 ertapenem [Invanz] 1 gram recon soln 1 g IV DAILY 12 Days Qty: 12 RF: 0 Continued tamsulosin 0.4 mg capsule 0.4 mg PO DAILY@06 RF: 0 citalopram [Celexa] 10 mg tablet 10 mg PO QPM RF: 0 nitroglycerin [Nitrostat] 0.4 mg tablet, sublingual 0.4 mg SUBLINGUAL Q5M PRN (Reason: Chest Pain) RF: 0 lisinopril 2.5 mg tablet 2.5 mg PO DAILY@06 RF: 0 carvedilol 6.25 mg tablet 9.375 mg PO BID RF: 0 prednisone 5 mg tablet 7.5 mg PO QAM RF: 0 bumetanide 2 mg tablet 2 mg PO QAM RF: 0 ascorbic acid (vitamin C) 1,000 mg tablet 1 g PO BID RF: 0 methenamine hippurate 1 gram tablet 1 g PO BID Qty: 180 RF: 3 amoxicillin 500 mg capsule 500 mg PO BID RF: 0 potassium chloride 20 mEq Tablet Extended Release 20 meq PO BID RF: 0 pantoprazole [Protonix] 40 mg Tablet,Delayed Release (Dr/Ec) 40 mg PO DAILY@06 RF: 0 aspirin 81 mg Tablet,Delayed Release (Dr/Ec) 81 mg PO DAILY@06 RF: 0 Lantus Solostar U-100 Insulin 100 unit/mL (3 mL) insulin pen See Rx Instructions .ROUTE .COMPLEX RF: 0 Vitamin D3 125 mcg (5,000 unit) Tablet 10,000 unit PO DAILY RF: 0 Florajen Acidophilus 20 billion cell Capsule 20,000 mmu cells PO QPM RF: 0 Multivitamins 28 mg iron- 800 mcg Tablet 1 tab PO DAILY@06 RF: 0 zinc 1 cap PO DAILY RF: 0 Voltaren Arthritis Pain 1 % gel 4 g topical QID PRN (Reason: Pain) RF: 0 atorvastatin 40 mg tablet 40 mg PO DAILY@19 RF: 0 diltiazem HCl 120 mg capsule,extended release 24hr 120 mg PO DAILY@06 RF: 0 acetaminophen [Tylenol Extra Strength] 500 mg Tablet 500 mg PO Q6H PRN (Reason: Pain) RF: 0 simethicone 80 mg Tablet,Chewable 80 mg PO DAILY PRN (Reason: gas) RF: 0 hydroxyzine pamoate 25 mg capsule 25 mg PO BID RF: 0 Discontinued warfarin 10 mg tablet 10 mg PO .MONDAY THREW MONDAY RF: 0 warfarin 7.5 mg tablet 7.5 mg PO .ON SAT AND SUN RF: 0 amoxicillin-pot clavulanate 875-125 mg tablet 1 tab PO BID Qty: 20 RF: 0 leflunomide 10 mg tablet 10 mg PO QAM RF: 0 Discharge Orders: Discharge Order (Routine); Ordered 07/15/21 Ordered By: Mike Davenport Referrals: Faustina Gonzalez NP [Primary Care Provider] - 4-7 days (Needs INR done tomorrow by home health, sent to provider.) Billy Berkowitz MD [Physician] - 7-10 days (Recurrent UTI, resistant organisms) Discharge Diet: Diabetic Discharge Activity: Increase activity as tolerated Patient Instructions: Opioid Safety Activity Restrictions/Additional Instructions: Take medication as prescribed PICC line to be removed after infusions are complete Ertapenem 1 g IV daily for 12 days Keep follow-up with urology Do not resume your leflunomide until okayed by rheumatology INR should be done by your primary care provider or home health tomorrow for adjustment of Coumadin. May continue your amoxicillin after ertapenem infusions are completed. Discharge Attestations Time Spent in Discharge Care*: greater than 30 min Status at Discharge: Cognitive status at discharge: cognitively intact , Behavioral status at discharge: cooperative , Quality Metrics Clinical Quality Measures During this hospital stay, did patient experience: None Coding Level of Care Code Acute Chg FW DC note Diagnoses Acute encephalopathy G93.40 Recurrent UTI N39.0 Coagulopathy D68.9 Diabetes E11.22; N18.2; Z79.4 Chronic kidney disease stage: stage 2 (mild) Diabetes mellitus complication detail: with chronic kidney disease Diabetes mellitus complication status: with kidney complications 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: with regional intermodal truck driver use Diabetes mellitus type: type 2 Thalassemia D56.9 S/P TAVR (transcatheter aortic valve replacement) Z95.2 Dementia F03.90 Atrial fibrillation I48.91 Rheumatoid arthritis M06.9
[2021-07-15] MEDS: ertapenem 1,000 MG in sodium chloride 0.9% (plus) 100 ML 200 MG IV (12:35)
--- NOTE | 2021-07-15 13:02 | PC.NURSE ---
Tried reaching the for pickup driver, but no answer service.
[2021-07-15 15:50] VITALS: BP 126/75; PULSE 100; RESP 18; TEMP 36.6; O2SAT 99
--- NOTE | 2021-07-29 14:12 | PC.SOCIAL ---
Verified with Dr Issac kemp to pull the PICC line since he has completed IV abx ordered at Discharge. Verbal order relayed to Carl nurse Noble and also [facility] IV [employer]x company aware no further medication required at this time.
== END 2021-07-15 14:00 | disposition home health service (06) | DRG 690 ==
LOC: ER 09:35 → ER IP 16:50 → MEDSURG 17:11
PROVIDERS: Admitting Provider Internal Medicine; Emergency Provider Family Medicine; PCP Nurse Practitioner Family; Visit Provider Internal Medicine
DX: N39.0 Urinary tract infection, site not specified (principal); G93.40 Encephalopathy, unspecified; Z87.440 Personal history of urinary (tract) infections; E66.01 Morbid (severe) obesity due to excess calories; Z68.36 Body mass index [BMI] 36.0-36.9, adult; I48.91 Unspecified atrial fibrillation; E11.22 Type 2 diabetes mellitus with diabetic chronic kidney disease; I12.9 Hypertensive chronic kidney disease with stage 1 through stage 4 chronic kidney disease, or unspecified chronic kidney disease; N18.2 Chronic kidney disease, stage 2 (mild); Z79.52 Long term (current) use of systemic steroids; Z86.73 Personal history of transient ischemic attack (TIA), and cerebral infarction without residual deficits; E78.5 Hyperlipidemia, unspecified; M10.9 Gout, unspecified; G47.33 Obstructive sleep apnea (adult) (pediatric); I27.20 Pulmonary hypertension, unspecified; I25.5 Ischemic cardiomyopathy; Z87.442 Personal history of urinary calculi; M06.9 Rheumatoid arthritis, unspecified; D56.9 Thalassemia, unspecified; Z79.4 Long term (current) use of insulin; Z79.82 Long term (current) use of aspirin; B96.20 Unspecified Escherichia coli [E. coli] as the cause of diseases classified elsewhere; Z95.2 Presence of prosthetic heart valve; F03.90 Unspecified dementia, unspecified severity, without behavioral disturbance, psychotic disturbance, mood disturbance, and anxiety; Z87.891 Personal history of nicotine dependence; R79.1 Abnormal coagulation profile
CPT/HCPCS: 36415; 36416; 36569; 51702; 70450; 71045; 74177; 80048; 80053; 81001; 82009; 82607; 82962; 83605; 83690; 84443; 85007; 85025; 85610; 87040; 87077; 87086; 87186; 87426; 87635; 93005; 96365; 96372; 96375; 99285; J0743; J1200; J1335; J1720; J1815 ×2; J7030; J7512; Q9967

== ENCOUNTER → 2021-07-29 15:02 | Outpatient (BNVA) | payer MEDICARE, OTHER, SELFPAY | PROVIDERS: PCP Nurse Practitioner Family; Visit Provider Urology | DX: N30.90 Cystitis, unspecified without hematuria (principal) | CPT/HCPCS: 81003 ==

== ENCOUNTER → 2021-10-05 13:27 | Outpatient (BNVA) | payer MEDICARE, OTHER, SELFPAY | PROVIDERS: PCP Nurse Practitioner Family; Visit Provider Internal Medicine | DX: M06.9 Rheumatoid arthritis, unspecified (principal); M10.9 Gout, unspecified; Z79.899 Other long term (current) drug therapy; Z79.52 Long term (current) use of systemic steroids; Z87.891 Personal history of nicotine dependence | CPT/HCPCS: 99214 ==

== ENCOUNTER 2021-10-14 14:47 | Inpatient (IN) | payer MEDICARE, OTHER, SELFPAY ==
[2021-10-14 15:02] VITALS: BP 141/89; PULSE 84; RESP 16; TEMP 36.7; O2SAT 97; BMI 35.5
[2021-10-14 15:38] LABS: Basophils # 0.1 10^3/uL (0.0-0.1); Basophils % 0.5 %; Eosinophils # 0.1 10^3/uL (0.0-0.8); Eosinophils % 0.6 %; Hematocrit 41.7 % (42.0-52.0); Hemoglobin 12.3 g/dL (11.7-16.6); Lymphocytes % 7.3 %; Mean Corpuscular HGB Conc 29.5 g/dL (30.0-36.0); Mean Corpuscular Hemoglobin 18.2 pg (28.0-34.0); Mean Corpuscular Volume 61.6 fl (80-94); Monocytes # 0.7 10^3/uL (0.2-0.9); Monocytes % 5.7 %; Neutrophils # 11.16 10^3/uL (1.8-7.7); Neutrophils % 85.4 %; Nucleated Red Blood Cells % 0.2 %; Platelet Count 220 10^3/cmm (130-400); Red Blood Count 6.77 10^6/uL (4.1-5.3); Red Cell Distribution Width 19.8 % (12.1-15.1); White Blood Count 13.1 10^3/uL (4.0-10.0)
[2021-10-14 15:43] LABS: Slide Review Slide Review Perform
--- NOTE | 2021-10-14 15:45 | CTR_ITS ---
PROCEDURE INFORMATION: Exam: CT Head Without Contrast Exam date and time: 10/14/2021 3:45 PM Age: 66 years old Clinical indication: Altered mental status/memory loss; Additional info: AMS TECHNIQUE: Imaging protocol: Computed tomography of the head without contrast. Sagittal and coronal reformatted images were created and reviewed. Radiation optimization: All CT scans at this facility use at least one of these dose optimization techniques: automated exposure control; mA and/or kV adjustment per patient size (includes targeted exams where dose is matched to clinical indication); or iterative reconstruction. COMPARISON: CT head wo con* [id number] 07/12/2021 3:53 PM RADIATION DOSE METRICS: Total DLP (mGy-cm): FINDINGS: Limitations: Motion artifact on multiple images that can limit evaluation. Brain: No intra-axial or extra-axial masses. [place]-white matter differentiation is preserved. No cerebral edema. No extra-axial fluid collections. No evidence for Chiari 1 malformation. No acute intracranial hemorrhage. No acute infarct. No midline shift. Stable large area of encephalomalacia in the inferior right cerebellar hemisphere. Stable small area of encephalomalacia in the superior left cerebellar hemisphere. Stable small area of encephalomalacia in the left frontal lobe. Findings are consistent with old infarcts. Stable mild atrophy of the brain parenchyma. Stable moderately decreased attenuation in the deep white matter, consistent with moderate chronic microangiopathic change. Cerebral ventricles: No hydrocephalus. Paranasal sinuses: Visualized paranasal sinuses are clear. Mastoid air cells: Visualized mastoid air cells are clear. Orbital cavity: Globes and lenses, extraocular muscles, and optic nerves are intact bilaterally. No acute intraorbital abnormality. Vasculature: Atherosclerotic changes in the visualized arteries. Bones/joints: No acute fracture. Soft tissues: No acute abnormality of the extracranial soft tissues. CT/CT head wo con* [id number] IMPRESSION: 1. Motion artifact on multiple images that can limit evaluation. Otherwise, no acute abnormality of the brain. 2. 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 3. Stable mild atrophy of the brain parenchyma. 4. Stable moderate chronic white matter microangiopathic change. 5. Incidental/nonacute findings are listed in the report. Radiation Dose CTDIVOL = (mGy): DLP = 2006.67 (mGy-cm)
[2021-10-14 15:46] LABS: Add Urine Microscopic? YES; Bilirubin Urine Neg (Negative); Blood Urine 3+ (Negative); Glucose Urine UA Norm (Normal); Ketones Urine Negative (Negative); Leukocyte Esterase Urine 2+ (Negative); Nitrate Urine Positive (Negative); Protein Urine Neg (Negative); Urine Appearance Cloudy (CLEAR); Urine Color Yellow (Yellow); Urobilinogen Urine Norm (Negative); pH Urine 5 (5-7)
[2021-10-14 15:48] LABS: Add Urine Culture? Yes; Bacteria Urine 2+ /hpf; RBC Urine >100 /hpf (0-2); WBC Urine 55-80 /hpf (0-5)
--- NOTE | 2021-10-14 15:54 | ED_ITS ---
HPI - General Adult General: Chief complaint: Urogenital-Male Stated complaint: Lower Back Pain, hx of kidney issues Time Seen by Provider: 10/14/21 15:09 History of Present Illness: HPI narrative: Patient is a 66-year-old male with history atrial fibrillation, CHF, chronic dementia, recurrent UTI who presents the emergency room progressive altered mental status x2 days now with symptoms of dysuria x1 day. Per patient's , patient reports symptoms of dysuria earlier this morning. Patient's has noticed that patient has become increasingly confused for the last 2 days. His says that patient has a history of chronic urinary tract infection for which she always becomes confused. Patient is AAO x2, confused. Patient denies any chest pain, shortness breath, palpitation, abdominal pain, nausea/vomiting. Reports right- sided flank pain. denies any history of kidney stones, prior abdominal surgeries. Patient has been able to have bowel movements without any difficulty. denies any diarrhea, melena hematochezia, fever chills, cough, runny nose, sore throat. Onset: 2 days ago Duration:2 days Location:home Severity:moderate Review of Systems Narrative: Constitutional: No fever, no chills. HEENT: No vision changes CV: No chest pain, no palpitations PULM: no cough, no dyspnea. GI: No abdominal pain, no N/V/D. +R sided flank pain : +Dysuria MSKEL: No muscle pain SKIN: No new rashes, no lesions. NEURO: No headache, no focal weakness. HEME: No visible bruises PSYCH: Normal mood PFS ED PFSH: Medical History Aortic stenosis Had TAVR replacement 2017. 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 that looks to have ended early 02/2021 Essential hypertension Gout Hx of Marienthal spotted fever Ischemic cardiomyopathy Left ventricular hypertrophy Obesity AJAY (obstructive sleep apnea) Pulmonary HTN Recurrent UTI Multidrug-resistant organisms Renal calculi Rheumatoid arthritis Thalassemia Surgical History H/O lithotripsy S/P TAVR (transcatheter aortic valve replacement) (~2018) Family History Mother Stroke Father Myocardial infarction Other CAD (coronary artery disease) Chronic kidney disease (CKD) Diabetes Hypertension Social History Smoking and tobacco status: former smoker Quit status (tobacco): has quit using tobacco Year quit tobacco: 2019 - Chewing Tobacco Former quit date comment: Hx of 1/2 can x 50 Years Second hand smoke exposure: No Smoking risk assessment/counseling performed?: No Alcohol intake: former Lives independently: No Household members: spouse Marital status: Current occupational status: retired and disabled History of recent travel: No Current gender identity: Male Physical Exam Narrative: EXAM NARRATIVE: Head: Atraumatic Eyes: PERRL, conjunctiva without injection ENT: Mucous membrane moist NECK: Supple, ROM intact LUNGS: LCTAB, no crackles/rhonchi CV: Irregularly irregular ABDOMEN: Soft, No focal TTP. NO guarding rebound, guarding, rigidity. +mild R CVA tenderness to percussion. Neg Jarrett/Neg McBurney's point tenderness, no suprabupic tenderness to palpation. EXTREMITY: Normal ROM SKIN: No rash or erythema NEURO: Awake and alert, no focal motor deficits PSYCH: Normal mood and affect Course Vital Signs: Vital signs: Vital Signs Temperature 97.4 F L 10/17/21 11:29 Pulse Rate 87 10/17/21 11:29 Respiratory Rate 16 10/17/21 11:29 Blood Pressure 154/102 10/17/21 11:29 Pulse Oximetry 100 10/17/21 11:29 MDM - General Adult MDM Narrative: Medical decision making narrative: Patient is a 66-year-old female presents emergency room with concerns of altered mental status. Patient has symptoms of dysuria x1 day. Patient has mild right CVA tenderness. Today showed nitrate positive UTI. White count 13.1. Creatinine 1.3. CTA renal protocol showed bilateral pyelonephritis without any signs of active stone. Patient has a history of multiple infections in the past with ESBL We will start on primaxin and admit for observation Disposition: Admission Lab Data: Labs: Lab Results 10/14/21 10/14/2121 15:22 15:22 15:22 WBC 13.1 10^3/uL H 10 ^3/uL (4.0-10.0) RBC 6.77 10^6/uL H 10 ^6/uL (4.1-5.3) Hgb 12.3 g/dL g/dL (11.7-16.6) Hct 41.7 % L % (42.0-52.0) MCV 61.6 fl L fl (80-94) MCH 18.2 pg L pg (28.0-34.0) MCHC 29.5 g/dL L g/dL (30.0-36.0) RDW 19.8 % H % (12.1-15.1) Plt Count 220 10^3/cmm 10^3 /cmm (130-400) MPV Not Reportable Neut % (Auto) 85.4 % % Lymph % (Auto) 7.3 % % [place] % (Auto) 5.7 % % Eos % (Auto) 0.6 % % Baso % (Auto) 0.5 % % Neut # (Auto) 11.16 10^3/uL H 1 0^3/uL (1.8-7.7) Lymph # (Auto) 1.0 10^3/uL 10^3/ uL (0.8-4.8) [place] # (Auto) 0.7 10^3/uL 10^3/ uL (0.2-0.9) Eos # (Auto) 0.1 10^3/uL 10^3/ uL (0.0-0.8) Baso # (Auto) 0.1 10^3/uL 10^3/ uL (0.0-0.1) Nucleated RBC % (a uto) 0.2 % % Nucleated RBCs # 0.0 /100WBC /100W BC Sodium 140 mmol/L mmol/L (136-145) Potassium 4.4 mmol/L mmol/L (3.5-5.1) Chloride 101 mmol/L mmol/L (98-107) Carbon Dioxide 25 mmol/L mmol/L (22-29) Anion Gap 18.4 (5-19) BUN 33 mg/dL H mg/dL (8-23) Creatinine 1.3 mg/dL H mg/dL (0.7-1.2) GFR Calculation 54.9 mL/min L mL/ min (90-130) Glucose 206 mg/dL H mg/dL (65-115) Calculated Osmolal ity 303 mOsm/kg H mOs m/kg (285-295) Calcium 9.1 mg/dL mg/dL (8.5-10.5) Total Bilirubin 0.5 mg/dL mg/dL (0.15-1.2) AST 17 U/L U/L (0-40) ALT 24 U/L U/L (0-41) Alkaline Phosphata se 64 IU/L IU/L (40-130) Troponin T Gen 5 n g/L Total Protein 6.4 g/dL L g/dL (6.6-8.7) Albumin 3.7 g/dL g/dL (3.5-5.2) Globulin 2.7 g/dL g/dL (1.3-4.6) Lipase 22 U/L U/L (13-60) Urine Color Yellow (Yellow) Urine Appearance Cloudy (CLEAR) Urine pH 5 (5-7) Ur Specific Gravit y 1.020 (1.005-1.030) Urine Protein Neg (Negative) Urine Glucose (UA) Norm (Normal) Urine Ketones Negative (Negative) Urine Blood 3+ H (Negative) Urine Nitrate Positive H (Negative) Urine Bilirubin Neg (Negative) Urine Urobilinogen Norm mg/dL mg/dL (Negative) Ur Leukocyte Michelle ase 2+ H (Negative) Urine RBC >100 /hpf H /hpf (0-2) Urine WBC 55-80 /hpf H /hpf (0-5) Ur Squamous Epith Cells None /hpf /hpf (0-5) Amorphous Sediment Not Reportable Urine Bacteria 2+ /hpf H /hpf (NONE) 10/14/21 15:22 WBC RBC Hgb Hct MCV MCH MCHC RDW Plt Count MPV Neut % (Auto) Lymph % (Auto) [place] % (Auto) Eos % (Auto) Baso % (Auto) Neut # (Auto) Lymph # (Auto) [place] # (Auto) Eos # (Auto) Baso # (Auto) Nucleated RBC % (a uto) Nucleated RBCs # Sodium Potassium Chloride Carbon Dioxide Anion Gap BUN Creatinine GFR Calculation Glucose Calculated Osmolal ity Calcium Total Bilirubin AST ALT Alkaline Phosphata se Troponin T Gen 5 n g/L 21 ng/L H ng/L (0-15) Total Protein Albumin Globulin Lipase Urine Color Urine Appearance Urine pH Ur Specific Gravit y Urine Protein Urine Glucose (UA) Urine Ketones Urine Blood Urine Nitrate Urine Bilirubin Urine Urobilinogen Ur Leukocyte Michelle ase Urine RBC Urine WBC Ur Squamous Epith Cells Amorphous Sediment Urine Bacteria Imaging Data^: Other Imaging: Radiologist's impression: [employer] [id number] Scan ReportSigned Patient: Ry Loydt #: [id number]: 1955cct#:[id number]/Sex: 66 / MADM Date: 10/14/21Loc: ERRoom/Bed:Attending Dr: Ordering Provider/Ordering MD: Sheri Mobley MD Date of Service: 10/14/21 Procedure(s): CT kidney stone 29536 Accession Number(s): [id number] Report Number: [id number] PROCEDURE INFORMATION: Exam: CT Abdomen And Pelvis Without Contrast Exam date and time: 10/14/2021 4:28 PM Age: 66 years old Clinical indication: Other: UTI; Additional info: R sided pyelo? TECHNIQUE: Imaging protocol: Computed tomography of the abdomen and pelvis without contrast. Radiation optimization: All CT scans at this facility use at least one of these dose optimization techniques: automated exposure control; mA and/or kV adjustment per patient size (includes targeted exams where dose is matched to clinical indication); or iterative reconstruction. COMPARISON: CT abdomen pelvis w con* [id number] 07/12/2021 11:58 AM RADIATION DOSE METRICS: Total DLP (mGy-cm): 2019.85 FINDINGS: Limitations: Evaluation of solid organs and vasculature is limited without intravenous contrast. Lungs: Visualized lungs are clear. Pleural spaces: No pleural effusion. Heart: Stable calcification of the mitral valve annulus. Stable moderate enlargement of the visualized portions of the heart. A prosthetic aortic valve is partially visualized. Stable mild atherosclerotic calcification in the coronary arteries. Liver: The liver is unremarkable. Gallbladder and bile ducts: No biliary ductal dilatation. Few stones in the gallbladder are stable. No gallbladder wall thickening. Pancreas: The pancreas is unremarkable. No pancreatic ductal dilatation. Spleen: Multiple calcified granulomas in the spleen. Adrenal glands: The right and left adrenal glands are unremarkable. Kidneys and ureters: Nonobstructing stones in both right and left kidneys. The largest on the right measures 4.7 mm (series 2, image 86). The largest on the left measures 4.2 mm (series 2, image 91). Mildly complex cyst with wall calcification in the right kidney is stable measuring 5.2 cm. Stable indeterminate hyperdense foci in the left kidney. Hounsfield units show density greater than expected for simple fluid. The larger measures 4.0 x 3.5 cm (series 2, image 76). Multiple simple cysts in the left kidney are stable, the largest measures 3.9 cm. Nonspecific inflammatory change around both kidneys is stable. Evaluation for pyelonephritis is limited without intravenous contrast. The right and left ureters are unremarkable. Stomach and bowel: Numerous diverticula in the sigmoid colon. No evidence for diverticulitis. Increased fecal content in the colon. No acute abnormality in the small bowel. No acute abnormality in the stomach. Appendix: The appendix is visualized and is unremarkable. No findings to suggest acute appendicitis. Intraperitoneal space: No free intraperitoneal air. No ascites. No loculated fluid collections to suggent an abscess. Vasculature: Mild atherosclerotic changes in the visualized arteries. No evidence for aortic aneurysm or aortic dissection. Lymph nodes: No lymphadenopathy. Urinary bladder: Diffuse, mild wall thickening of the bladder. Reproductive: Stable nonspecific parenchymal calcifications in the prostate gland. Stable calcifications in the vas deferens. Bones/joints: Degenerative changes in the spine and hips. Soft tissues: Large fat containing umbilical hernia without evidence of strangulation is stable. Skin thickening and subcutaneous inflammation over the lower abdomen is stable, recommend clinical correlation to rule out cellulitis. CT/CT kidney stone [id number] IMPRESSION: 1. Nonspecific inflammatory change around both kidneys is stable. Evaluation for pyelonephritis is limited without intravenous contrast. CT scan of the abdomen and pelvis with contrast would be recommended if there is continuing clinical concern for pyelonephritis. 2. Skin thickening and subcutaneous inflammation over the lower abdomen is stable, recommend clinical correlation to rule out cellulitis. 3. Stable cholelithiasis. 4. Bilateral nonobstructing renal stones. 5. Stable Bosniak type 2 cyst in the right kidney. 6. Stable indeterminate hyperdense foci in the left kidney. These may represent hemorrhagic/proteinaceous cysts. 7. Diffuse, mild wall thickening of the bladder. In the correct clinical setting, this may suggest cystitis. Recommend correlation with laboratory findings. Alternatively, this may be secondary to chronic outlet obstruction. 8. Stable calcifications in the vas deferens. Findings raise suspicion for diabetes mellitus. Recommend clinical correlation. 9. Sigmoid diverticulosis. No evidence for diverticulitis. 10. Large fat containing umbilical hernia without evidence of strangulation is stable. 11. Incidental/nonacute findings are listed in the report. Radiation Dose CTDIVOL = (mGy): DLP = 2020.85 (mGy-cm) Dictated By:Bibiana Marie MDSigned By:Bibiana Marie MDSigned Date/Time:10/14/21 1807 [address]MM[facility] CenterFxnjldhuk[facility] [place], [place] [address]BM Scan ReportSigned Patient: Ry Loyd #: [id number]: 1955cct#:[id number]/Sex: 66 / MADM Date: 10/14/21Loc: ERRoom/Bed:Attending Dr: Ordering Provider/Ordering MD: Sheri Mobley MD Date of Service: 10/14/21 Procedure(s): CT head wo con* [id number] Accession Number(s): [id number] Report Number: [id number] PROCEDURE INFORMATION: Exam: CT Head Without Contrast Exam date and time: 10/14/2021 3:45 PM Age: 66 years old Clinical indication: Altered mental status/memory loss; Additional info: AMS TECHNIQUE: Imaging protocol: Computed tomography of the head without contrast. Sagittal and coronal reformatted images were created and reviewed. Radiation optimization: All CT scans at this facility use at least one of these dose optimization techniques: automated exposure control; mA and/or kV adjustment per patient size (includes targeted exams where dose is matched to clinical indication); or iterative reconstruction. COMPARISON: CT head wo con* [id number] 07/12/2021 3:53 PM RADIATION DOSE METRICS: Total DLP (mGy-cm): FINDINGS: Limitations: Motion artifact on multiple images that can limit evaluation. Brain: No intra-axial or extra-axial masses. Bedolla-white matter differentiation is preserved. No cerebral edema. No extra-axial fluid collections. No evidence for Chiari 1 malformation. No acute intracranial hemorrhage. No acute infarct. No midline shift. Stable large area of encephalomalacia in the inferior right cerebellar hemisphere. Stable small area of encephalomalacia in the superior left cerebellar hemisphere. Stable small area of encephalomalacia in the left frontal lobe. Findings are consistent with old infarcts. Stable mild atrophy of the brain parenchyma. Stable moderately decreased attenuation in the deep white matter, consistent with moderate chronic microangiopathic change. Cerebral ventricles: No hydrocephalus. Paranasal sinuses: Visualized paranasal sinuses are clear. Mastoid air cells: Visualized mastoid air cells are clear. Orbital cavity: Globes and lenses, extraocular muscles, and optic nerves are intact bilaterally. No acute intraorbital abnormality. Vasculature: Atherosclerotic changes in the visualized arteries. Bones/joints: No acute fracture. Soft tissues: No acute abnormality of the extracranial soft tissues. CT/CT head wo con* [id number] IMPRESSION: 1. Motion artifact on multiple images that can limit evaluation. Otherwise, no acute abnormality of the brain. 2. 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 3. Stable mild atrophy of the brain parenchyma. 4. Stable moderate chronic white matter microangiopathic change. 5. Incidental/nonacute findings are listed in the report. Radiation Dose CTDIVOL = (mGy): DLP = 2007.67 (mGy-cm) Dictated By:Bibiana Marie MDSigned By:Bibiana Marie MDSigned Date/Time:10/14/21 1705DD/ 1545 Discharge Plan Discharge Patient Disposition: Home Clinical Impression: Altered mental status, Acute UTI, Pyelonephritis Condition: Stable Discharge Orders: Discharge Order (Routine); Ordered 10/17/21 Ordered By: Elian Buitrago Discharge Diet: Advance as tolerated Discharge Activity: Increase activity as tolerated Coding Level of Care Code ED Packaging Specialist for John Jade
[2021-10-14 16:00] LABS: Alanine Aminotransferase 24 U/L (0-41); Albumin Level 3.7 g/dL (3.5-5.2); Alkaline Phosphatase 64 IU/L (40-130); Anion Gap 18.4 (5-19); Aspartate Amino Transferase 17 U/L (0-40); Blood Urea Nitrogen 33 mg/dL (8-23); Calcium 9.1 mg/dL (8.5-10.5); Carbon Dioxide 25 mmol/L (22-29); Chloride 101 mmol/L (98-107); Globulin 2.7 g/dL (1.3-4.6); Glomerular Filtration Rate 54.9 mL/min (90-130); Glucose 206 mg/dL (65-115); Lipase 22 U/L (13-60); Osmolality Calculated 303 mOsm/kg (285-295); Potassium 4.4 mmol/L (3.5-5.1); Sodium 140 mmol/L (136-145); Total Bilirubin 0.5 mg/dL (0.15-1.2); Total Protein 6.4 g/dL (6.6-8.7)
[2021-10-14 16:24] LABS: Troponin T (5th) Once 21 ng/L (0-15)
[2021-10-14] MEDS: sulfamethoxazole-trimeth DS 160-800 mg Tablet 1 TAB PO (16:26)
--- NOTE | 2021-10-14 16:28 | CTR_ITS ---
PROCEDURE INFORMATION: Exam: CT Abdomen And Pelvis Without Contrast Exam date and time: 10/14/2021 4:28 PM Age: 66 years old Clinical indication: Other: UTI; Additional info: R sided pyelo? TECHNIQUE: Imaging protocol: Computed tomography of the abdomen and pelvis without contrast. Radiation optimization: All CT scans at this facility use at least one of these dose optimization techniques: automated exposure control; mA and/or kV adjustment per patient size (includes targeted exams where dose is matched to clinical indication); or iterative reconstruction. COMPARISON: CT abdomen pelvis w con* [id number] 07/12/2021 11:58 AM RADIATION DOSE METRICS: Total DLP (mGy-cm): FINDINGS: Limitations: Evaluation of solid organs and vasculature is limited without intravenous contrast. Lungs: Visualized lungs are clear. Pleural spaces: No pleural effusion. Heart: Stable calcification of the mitral valve annulus. Stable moderate enlargement of the visualized portions of the heart. A prosthetic aortic valve is partially visualized. Stable mild atherosclerotic calcification in the coronary arteries. Liver: The liver is unremarkable. Gallbladder and bile ducts: No biliary ductal dilatation. Few stones in the gallbladder are stable. No gallbladder wall thickening. Pancreas: The pancreas is unremarkable. No pancreatic ductal dilatation. Spleen: Multiple calcified granulomas in the spleen. Adrenal glands: The right and left adrenal glands are unremarkable. Kidneys and ureters: Nonobstructing stones in both right and left kidneys. The largest on the right measures 4.7 mm (series 2, image 86). The largest on the left measures 4.2 mm (series 2, image 91). Mildly complex cyst with wall calcification in the right kidney is stable measuring 5.2 cm. Stable indeterminate hyperdense foci in the left kidney. Hounsfield units show density greater than expected for simple fluid. The larger measures 4.0 x 3.5 cm (series 2, image 76). Multiple simple cysts in the left kidney are stable, the largest measures 3.9 cm. Nonspecific inflammatory change around both kidneys is stable. Evaluation for pyelonephritis is limited without intravenous contrast. The right and left ureters are unremarkable. Stomach and bowel: Numerous diverticula in the sigmoid colon. No evidence for diverticulitis. Increased fecal content in the colon. No acute abnormality in the small bowel. No acute abnormality in the stomach. Appendix: The appendix is visualized and is unremarkable. No findings to suggest acute appendicitis. Intraperitoneal space: No free intraperitoneal air. No ascites. No loculated fluid collections to suggent an abscess. Vasculature: Mild atherosclerotic changes in the visualized arteries. No evidence for aortic aneurysm or aortic dissection. Lymph nodes: No lymphadenopathy. Urinary bladder: Diffuse, mild wall thickening of the bladder. Reproductive: Stable nonspecific parenchymal calcifications in the prostate gland. Stable calcifications in the vas deferens. Bones/joints: Degenerative changes in the spine and hips. Soft tissues: Large fat containing umbilical hernia without evidence of strangulation is stable. Skin thickening and subcutaneous inflammation over the lower abdomen is stable, recommend clinical correlation to rule out cellulitis. CT/CT kidney stone [id number] IMPRESSION: 1. Nonspecific inflammatory change around both kidneys is stable. Evaluation for pyelonephritis is limited without intravenous contrast. CT scan of the abdomen and pelvis with contrast would be recommended if there is continuing clinical concern for pyelonephritis. 2. Skin thickening and subcutaneous inflammation over the lower abdomen is stable, recommend clinical correlation to rule out cellulitis. 3. Stable cholelithiasis. 4. Bilateral nonobstructing renal stones. 5. Stable Bosniak type 2 cyst in the right kidney. 6. Stable indeterminate hyperdense foci in the left kidney. These may represent hemorrhagic/proteinaceous cysts. 7. Diffuse, mild wall thickening of the bladder. In the correct clinical setting, this may suggest cystitis. Recommend correlation with laboratory findings. Alternatively, this may be secondary to chronic outlet obstruction. 8. Stable calcifications in the vas deferens. Findings raise suspicion for diabetes mellitus. Recommend clinical correlation. 9. Sigmoid diverticulosis. No evidence for diverticulitis. 10. Large fat containing umbilical hernia without evidence of strangulation is stable. 11. Incidental/nonacute findings are listed in the report. Radiation Dose CTDIVOL = (mGy): DLP = 2020.85 (mGy-cm)
[2021-10-14 18:30] VITALS: BP 137/39; PULSE 86; RESP 18; O2SAT 97
[2021-10-14 19:30] VITALS: BP 126/63; PULSE 91; RESP 16; O2SAT 94
[2021-10-14] MEDS: alum-mag-hydroxide-sime 30 mL UDC PO (19:36)
--- NOTE | 2021-10-14 19:51 | PM.HP ---
Providers/Chief Complaint Admitting Physician: Elian Buitrago Primary Care Provider: Faustina Gonzalez NP Chief Complaint: Lower Back Pain, hx of kidney issues History of Present Illness 66-year-old gentleman with history of recurrent urinary tract infections, ESBL infections most recently with Klebsiella, Pseudomonas with hospitalization for nonobstructing pyelonephritis in June, also on chronic suppression with amoxicillin due to streak of endocarditis, following TAVR, follows with ID in [place], RA, on chronic leflunomide, prednisone, follows with rheumatology here in [facility], A. fib, on chronic anticoagulation with warfarin, CHF, DM 2, HTN, AJYA, although has refused to wear CPAP, and a number of other comorbidities. Started feeling unwell this morning, with chills, reporting dysuria, eructation, weak, less responsive than usual, confused, reports he usually gets like this with a urinary tract infection. No shortness of breath or cough, no headache. Has not had COVID-19 vaccination. Otherwise has been doing well prior to today. He usually gets around with a walker. He eats by himself, needs assistance with dressing, showering, cooks for him, takes care of bills. He does not normally know what year it is. He usually knows where he is. Recognizes family and friends. In ER he wakes up and responds briefly to his name, but does not answer questions. Having rigors during my visit. has to provide history. He is noted to have leukocytosis of 13.1, he is afebrile, pulse rate 84, blood pressure 111/43. Respiratory rate 16. Sats 96% on room air. Noted acute kidney injury with creatinine of 1.3. UA with 3+ blood, positive nitrate, 2+ leukocyte esterase, more than 100 RBCs, 55-80 WBCs, 2+ bacteria. CT head with motion artifact on multiple images, stable findings consistent with old infarcts in the right and left cerebellar hemispheres and the left frontal lobe. Stable mild atrophy of brain parenchyma. Stable moderate chronic white matter microangiopathic change. Incidental/nonacute findings in detail report. CT abdomen pelvis is obtained with nonspecific pulmonary change around both kidneys stable. Evaluation for pyelonephritis limited without intravenous contrast. CT abdomen bones with contrast recommended if clinical concern for bowel nephritis, however, he has contrast allergy so this is deferred in the ER. Additional findings of skin thickening and subcutaneous inflammation over lower abdomen stable. Recommend correlation to rule out cellulitis. Stable cholelithiasis Bilateral nonobstructing renal stones Bosniak type II cyst in right kidney stable. Stable indeterminate hypodense foci in the left kidney, possibly present hemorrhagic/proteinaceous cyst. Diffuse mild wall thickening of the bladder and the prior clinical setting may suggest cystitis. Alternatively may be secondary to chronic outlet obstruction. Stable calcification of the vas deferens, findings raise suspicion for diabetes mellitus. Significant diverticulosis, no evidence for diverticulitis. Large fat-containing umbilical hernia without evidence of strangulation, stable. Additional incidental/nonacute findings in detail report. Most recently with ESBL nonobstructing pyelonephritis, in ER after collection of urine studies is started on Primaxin. Review of Systems Const: Reports: chills and malaise; Denies: fever(s) Eyes: Denies: change in vision or eye redness ENMT: Denies: throat pain, oral sores or ear or mastoid pain Card: Denies: chest pain, edema, pre-syncope or dyspnea on exertion Resp: Denies: dyspnea, productive cough, change in phlegm color or hemoptysis GI: Reports: abdominal pain; Denies: nausea, vomiting, diarrhea, constipation, hematochezia or melena : Reports: dysuria; Denies: flank pain, difficulty urinating, urinary frequency or hematuria Musc: Denies: back pain, joint swelling or joint redness Skin/Breast: Denies: rash, sores or new lesions Neuro: Reports: confusion and other (Chronic severe difficulty with speech reported elsewhere); Denies: headache(s), numbness in extremities, weakness in extremities, dizziness or seizure-like activity Endo: Denies: polyuria or polydipsia Aaron/Lymph: Denies: easy bleeding or purpura All/Imm: Denies: urticaria, throat swelling or tongue swelling Medications/Allergies Home Medications Medication Instructions Recorded Confirmed Last Taken Type citalopram 10 mg tablet 10 mg PO QPM tab 12/03/19 10/05/21 07/11/21 History nitroglycerin 0.4 mg sublingual 0.4 mg SUBLINGUAL Q5M PRN 12/03/19 10/05/21 01/16/20 History tablet tamsulosin 0.4 mg capsule 0.4 mg PO DAILY@06 cap 12/03/19 10/05/21 07/12/21 05:30 History pantoprazole [Protonix] 40 mg PO DAILY@12/25/19 10/05/21 07/12/21 05:30 History potassium chloride 20 meq PO BID 12/25/19 10/05/21 07/12/21 05:30 History lisinopril 2.5 mg tablet 2.5 mg PO DAILY@06/09/20 10/05/21 07/12/21 05:30 History aspirin 81 mg PO DAILY@10/10/20 10/05/21 07/12/21 05:30 History carvedilol 6.25 mg tablet 9.375 mg PO BID tab 10/30/20 10/05/21 07/12/21 05:30 History acetaminophen [Tylenol Extra 500 mg PO Q6H PRN 02/17/21 10/05/21 Unknown History Strength] atorvastatin 40 mg PO DAILY@02/17/21 10/05/21 07/11/21 History diltiazem HCl 120 mg PO DAILY@02/17/21 10/05/21 07/12/21 05:30 History simethicone 80 mg PO DAILY PRN 02/17/21 10/05/21 02/16/21 History methenamine hippurate 1 gram tablet 1 g PO BID #180 tab 03/25/21 10/05/21 07/12/21 05:30 Rx ascorbic acid (vitamin C) 1,000 mg 1 g PO BID tab 04/23/21 10/05/21 07/12/21 05:30 History tablet bumetanide 2 mg tablet 2 mg PO QAM 04/23/21 10/05/21 07/11/21 History hydroxyzine pamoate 25 mg capsule 25 mg PO BID 04/23/21 10/05/21 07/11/21 History amoxicillin 500 mg capsule 500 mg PO BID 06/28/21 10/05/21 07/11/21 History Florajen Acidophilus 20,000 mmu cells PO QPM 07/12/21 10/05/21 07/11/21 History Lantus Solostar U-100 Insulin See Rx Instructions .ROUTE .COMPLEX 07/12/21 10/05/21 07/11/21 History 30 units Multivitamins 1 tab PO DAILY@06 07/12/21 10/05/21 07/12/21 05:30 History Vitamin D3 10,000 unit PO DAILY 07/12/21 10/05/21 Unknown History Voltaren Arthritis Pain 4 g TOPICAL QID PRN 07/12/21 10/05/21 Unknown History zinc 1 cap PO DAILY 07/12/21 10/05/21 Unknown History warfarin 7.5 mg PO DAILY #45 tab 07/15/21 10/05/21 Unknown Rx leflunomide 10 mg tablet 10 mg PO DAILY #30 tab 09/09/21 10/05/21 Unknown Rx prednisone 5 mg tablet 7.5 mg PO QAM #45 tab 09/27/21 10/05/21 Unknown Rx sulfamethoxazole-trimethoprim 1 tab PO BID 14 Days #28 tab 10/14/21 Unknown Rx [Bactrim DS] Allergies Allergy/AdvReac Type Severity Reaction Status Date / Time ceftriaxone [From Rocephin] Allergy Intermediate ALGY-Difficulty Verified 10/05/21 14:09 Breathing levofloxacin [From Levaquin] Allergy Mild ADR-Itching Verified 10/05/21 14:09 iodine Allergy Unknown Unknown Verified 10/05/21 14:09 clopidogrel [From Plavix] AdvReac Intermediate Unknown Verified 10/05/21 14:09 PFSH Acute PFSH: Medical History Aortic stenosis Had TAVR replacement 2017. 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 that looks to have ended early 02/2021 Essential hypertension Gout Hx of [place] spotted fever Ischemic cardiomyopathy Left ventricular hypertrophy Obesity AJAY (obstructive sleep apnea) Pulmonary HTN Recurrent UTI Multidrug-resistant organisms Renal calculi Rheumatoid arthritis Thalassemia Surgical History H/O lithotripsy S/P TAVR (transcatheter aortic valve replacement) (~2017) Family History Mother Stroke Father Myocardial infarction Other CAD (coronary artery disease) Chronic kidney disease (CKD) Diabetes Hypertension Social History Smoking and tobacco status: former smoker Quit status (tobacco): has quit using tobacco Year quit tobacco: 2020 - Chewing Tobacco Former quit date comment: Hx of 1/2 can x 50 Years Second hand smoke exposure: No Smoking risk assessment/counseling performed?: No Alcohol intake: former Lives independently: No Household members: spouse Marital status: Current occupational status: retired and disabled History of recent travel: No Current gender identity: Male Vitals/I&O/Wt Last Vital Signs Temp 98.0 F 10/14/21 15:02 Pulse 84 10/14/21 15:02 Resp 16 10/14/21 15:02 BP 141/89 10/14/21 15:02 Pulse Ox 97 10/14/21 15:02 Weight last 48 hrs Weight 115.666 kg Physical Exam Const: GENERAL APPEARANCE: not comfortable (Rigors) NUTRITIONAL APPEARANCE: obese morbidly obese ORIENTATION/CONSCIOUSNESS: Yes confused HENMT: COMMON NORMALS: oropharynx normal Neck/C-Spine: COMMON NORMALS: no JVD Resp: COMMON NORMALS: normal respiratory effort and clear to auscultation bilaterally AUSCULTATION: clear to auscultation bilaterally Cardio: COMMON NORMALS: no JVD, regular rhythm, S1 normal heart sound present, S2 normal heart sound present and No murmurs present (Cardio) RHYTHM: regular rhythm HEART SOUNDS: S1 normal heart sound present and S2 normal heart sound present GI: COMMON NORMALS: Normal to inspection, nondistended, normoactive bowel sounds present, Soft to palpation and non-tender PALPATION: Yes Soft to palpation OTHER: Large pannus : BLADDER/KIDNEY EXAM: No CVA tenderness Extremity: COMMON NORMALS: no joint enlargement GENERAL: Yes edema (1+) Neuro: COMMON NORMALS: moves all extremities Skin: COMMON NORMALS: no rashes or lesions noted GENERAL SKIN EXAM: no rashes or lesions noted Data : 10/14/21 15:22 10/14/21 15:22 A&P Assessment and plan (1) Pyelonephritis: Based on UA, symptoms of dysuria, suspected complicated urinary tract infection, most recently with ESBL Klebsiella, Pseudomonas, with noted stable inflammatory change around both kidneys on CT. Does not have CVA tenderness. Due to history of ESBL infection started on Primaxin after collection of urine culture. Requesting also blood cultures given history of endocarditis after TAVR. Possible sepsis, with leukocytosis 13.1, altered mental status, acute kidney injury, creatinine 1.3. Requesting lactic acid. Discussed with his . Hold antihypertensives at this time. Increase prednisone dose to 15 mg. Monitor vital signs. Status: Acute (2) Altered mental status: Encephalopathy suspect due to acute infection, I complicated UTI, pyelonephritis. With quite significant rigors in ER. Malaise. Will check COVID-19. Also requested blood cultures with history of endocarditis. Hold medications which may contribute. For now n.p.o. except sips, chips, meds, until we can reassess mental status. Status: Acute (3) Cystitis: Possible cystitis noted on CT. As above. Status: Acute (4) Recurrent UTI: Chronically on methenamine. Status: Acute (5) KELL (acute kidney injury): Creatinine up to 1.3. Has not been eating well. Suspect prerenal etiology. Also on lisinopril. Hold. Also appears uses Voltaren topically for arthritis. Hold, consider discontinue. Hold bumetanide. Fluid challenge. Status: Acute Additional A&P Information History of stage, Last TTE 2018, 50% EF, global hypokinesis. DM2: At home usually on Lantus 40 in the morning, 30 in the evening. Continue, but will reduce dose. Sliding scale insulin. History of TAVR History of endocarditis: Currently on amoxicillin, following with ID in [place]. Hold amoxicillin for now while on Primaxin. A. fib: Continue warfarin. Check INR. Blood pressure currently appears softer than previously, , hold off on carvedilol for now. Monitor blood pressures, heart rate. RA on chronic steroid, leflunomide History of CHF HTN AJAY not on CPAP Thalassemia A number of other comorbidities noted. Does not eat pork Attestations Medical Necessity Statement*: Admission of over 2 midnights is going to be needed for assessment and management of complicated urinary tract infection, nonobstructing pyelonephritis, with acute encephalopathy, possible sepsis, acute kidney injury, and a gentleman with history of recurrent UTI with multidrug-resistant organisms including ESBL Klebsiella. Coding Level of Care Code Acute Hat Brusher Machine for g Fwd Diagnoses Pyelonephritis N12 Altered mental status R41.82 Cystitis N30.90 Recurrent UTI N39.0 KELL (acute kidney injury) N17.9
[2021-10-14 20:03] VITALS: BP 113/53; PULSE 86; RESP 16; O2SAT 93
[2021-10-14 20:52] VITALS: BP 121/79; PULSE 89; RESP 17; TEMP 38.7; O2SAT 91
[2021-10-14] MEDS: pantoprazole 40 mg SDV IVP (21:30)
[2021-10-14] MEDS: predniSONE 10 mg Tablet PO (21:30)
[2021-10-14] MEDS: lactated ringers 500 ML 999 ML IV (21:30)
[2021-10-14] MEDS: atorvastatin 40 mg Tablet PO (21:30)
[2021-10-14 21:31] VITALS: BMI 36.2
[2021-10-14 22:46] LABS: Lactic Sepsis W/Reflex 2.5 mmol/L (0.5-2.2)
[2021-10-14 23:53] LABS: Reflex Lactate Order REFLEX LACTIC ORDERD
[2021-10-15] VITALS: BP 95/63; PULSE 88; RESP 18; TEMP 36.5; O2SAT 91
[2021-10-15 02:15] LABS: Lactic Acid level (Lactate) 1.6 mmol/L (0.5-2.2)
[2021-10-15 04:00] VITALS: BP 96/62; PULSE 79; RESP 22; TEMP 36.5; O2SAT 94
[2021-10-15 06:59] LABS: INR 2.41 (0.8-1.2)
[2021-10-15 07:13] LABS: Alanine Aminotransferase 20 U/L (0-41); Albumin Level 3.1 g/dL (3.5-5.2); Alkaline Phosphatase 55 IU/L (40-130); Anion Gap 15.2 (5-19); Aspartate Amino Transferase 23 U/L (0-40); Blood Urea Nitrogen 29 mg/dL (8-23); Calcium 8.8 mg/dL (8.5-10.5); Carbon Dioxide 27 mmol/L (22-29); Chloride 100 mmol/L (98-107); Globulin 2.6 g/dL (1.3-4.6); Glomerular Filtration Rate 74.3 mL/min (90-130); Glucose 203 mg/dL (65-115); Osmolality Calculated 298 mOsm/kg (285-295); Potassium 4.2 mmol/L (3.5-5.1); Sodium 138 mmol/L (136-145); Total Bilirubin 1.1 mg/dL (0.15-1.2); Total Protein 5.7 g/dL (6.6-8.7)
[2021-10-15 08:00] VITALS: BP 111/77; PULSE 89; RESP 18; TEMP 36.4; O2SAT 95
[2021-10-15 08:18] LABS: Basophils # 0.1 10^3/uL (0.0-0.1); Basophils % 0.5 %; Eosinophils % 0.1 %; Hematocrit 35.3 % (42.0-52.0); Hemoglobin 10.5 g/dL (11.7-16.6); Lymphocytes # 1.6 10^3/uL (0.8-4.8); Lymphocytes % 11.9 %; Mean Corpuscular HGB Conc 29.7 g/dL (30.0-36.0); Mean Corpuscular Hemoglobin 18.1 pg (28.0-34.0); Monocytes # 0.9 10^3/uL (0.2-0.9); Monocytes % 6.6 %; Neutrophils # 11.02 10^3/uL (1.8-7.7); Neutrophils % 80.4 %; Nucleated Red Blood Cells % 0.1 %; Platelet Count 176 10^3/cmm (130-400); Red Blood Count 5.79 10^6/uL (4.1-5.3); Red Cell Distribution Width 19.5 % (12.1-15.1); White Blood Count 13.7 10^3/uL (4.0-10.0)
[2021-10-15 09:01] LABS: Mean Platelet Volume 9.8 fL (7.4-10.4)
[2021-10-15 09:02] LABS: Slide Review Slide Review Perform
[2021-10-15] MEDS: predniSONE 10 mg Tablet 15 MG PO (10:25)
[2021-10-15] MEDS: aspirin 81 mg EC Tablet PO (10:25)
--- NOTE | 2021-10-15 11:10 | PM.PN ---
Subjective Subjective: Interval history: He is doing much better. He is awake and alert, interactive. He is no longer having chills. Today he denies any complaints. Denies any abdominal pain or discomfort. Vitals/I&O/Wt Last Vital Signs Temp 97.5 F L 10/15/21 08:00 Pulse 89 10/15/21 08:00 Resp 18 10/15/21 08:00 BP 111/77 10/15/21 08:00 Pulse Ox 95 10/15/21 08:00 10/14/21 10/15/21 10/15/21 22:59 06:59 14:59 Intake Total 840 / 840 200 / 1040 Output Total 275 / 275 Balance 840 / 840 -75 / 765 Weight last 48 hrs Weight 117.934 kg Weight 117.934 kg Weight 115.666 kg Physical Exam Const: COMMON NORMALS: alert GENERAL APPEARANCE: cooperative and comfortable NUTRITIONAL APPEARANCE: obese morbidly obese ORIENTATION/CONSCIOUSNESS: Yes awake HENMT: COMMON NORMALS: oropharynx normal Neck/C-Spine: COMMON NORMALS: no JVD Resp: COMMON NORMALS: normal respiratory effort and clear to auscultation bilaterally AUSCULTATION: clear to auscultation bilaterally Cardio: COMMON NORMALS: no JVD, regular rhythm, S1 normal heart sound present, S2 normal heart sound present and No murmurs present (Cardio) RHYTHM: regular rhythm HEART SOUNDS: S1 normal heart sound present and S2 normal heart sound present GI: COMMON NORMALS: Normal to inspection, nondistended, normoactive bowel sounds present, Soft to palpation and non-tender PALPATION: Yes Soft to palpation OTHER: Large pannus : BLADDER/KIDNEY EXAM: No CVA tenderness Back/Pelvis: GENERAL BACK: No CVA tenderness Extremity: COMMON NORMALS: no joint enlargement GENERAL: Yes edema (1+) Neuro: COMMON NORMALS: moves all extremities SENSORIUM/ORIENTATION: Yes alert Skin: COMMON NORMALS: no rashes or lesions noted GENERAL SKIN EXAM: no rashes or lesions noted Data : 10/15/21 08:03 10/15/21 05:22 Micro: Microbiology 10/14/21 15:22 Urine Culture - Preliminary Urine,Clean Catch Gram Negative Rods 10/14/21 20:49 Blood Culture - Preliminary Blood SPECIMEN COLLECTED 10/14/21 20:43 Blood Culture - Preliminary Blood SPECIMEN COLLECTED A&P Assessment and plan (1) Pyelonephritis: Gram-negative rods growing in urine. Continue Primaxin at this time given history of ESBL Klebsiella, low pseudomonal infection recently. Follow-up culture results. He is clinically improving. Additional antibiotic to be decided when sensitivities available. Follow-up blood cultures. Follow-up COVID-19 results. Sepsis sepsis with fever 101.7, leukocytosis 13. As above. Based on UA, symptoms of dysuria, suspected complicated urinary tract infection, most recently with ESBL Klebsiella, Pseudomonas, with noted stable inflammatory change around both kidneys on CT. Does not have CVA tenderness. Due to history of ESBL infection started on Primaxin after collection of urine culture. Requesting also blood cultures given history of endocarditis after TAVR. Possible sepsis, with leukocytosis 13.1, altered mental status, acute kidney injury, creatinine 1.3. Requesting lactic acid. Discussed with his . Hold antihypertensives at this time. Increase prednisone dose to 15 mg. Monitor vital signs. Status: Acute (2) Altered mental status: Improved. It appears overnight required one-to-one sitter. Seems to be doing well during my visit. We will observe how he does, he is also being visited by his today. Discontinue sitter, and if is doing well, should not need to have it resumed. Encephalopathy suspect due to acute infection, I complicated UTI, pyelonephritis. With quite significant rigors in ER. Malaise. Will check COVID-19. Also requested blood cultures with history of endocarditis. Hold medications which may contribute. Resume PO intake. Status: Acute (3) Cystitis: Possible cystitis noted on CT. As above. Status: Acute (4) Recurrent UTI: Chronically on methenamine. Status: Acute (5) KELL (acute kidney injury): Improved with fluid challenge. Creatinine up to 1.3. Has not been eating well. Suspect prerenal etiology. Also on lisinopril. Hold. Also appears uses Voltaren topically for arthritis. Hold, consider discontinue. Hold bumetanide. Status: Acute Additional A&P Information History of stage, Last TTE 2018, 50% EF, global hypokinesis. DM2: At home usually on Lantus 40 in the morning, 30 in the evening. Continue, but will reduce dose. Sliding scale insulin. History of TAVR History of endocarditis: Currently on amoxicillin, following with ID in [place]. Hold amoxicillin for now while on Primaxin. A. fib: Continue warfarin. INR 2.4. Blood pressure currently appears softer than previously, , hold off on carvedilol for now. Monitor blood pressures, heart rate. RA on chronic steroid, leflunomide History of CHF HTN AJAY not on CPAP Thalassemia A number of other comorbidities noted. Does not eat pork Attestations Medical Necessity Statement*: Continue admission for assessment management of complicated UTI, pyelonephritis, improving sepsis, and gentleman with recurrent infections with ESBL multidrug-resistant organisms. Coding Level of Care Code Acute Allied Health Teacher for g Fwd Exam Comprehensive Diagnoses Pyelonephritis N12 Altered mental status R41.82 Cystitis N30.90 Recurrent UTI N39.0 KELL (acute kidney injury) N17.9
--- NOTE | 2021-10-15 11:35 | PC.NUTR ---
pt didnt get a tray
--- NOTE | 2021-10-15 11:46 | PC.CHAP ---
Pastoral Care Encounter/Spiritual Assessment Type of Contact [] Declined forging dies final finisher visit [] Patient/Family/Request visit [] Outpatient visit [] Follow-up visit [] Physician referral [] Code/Alert [xx] Routine visit [] Staff referral [] Actively dying [] Patient sleeping [] Family support [] [] Out of room [] Palliative care [] [] Receiving care in room [] Pre-surgical visit [] Trauma [] Long length of stay [] ICU visit [] Other: Relational/Emotional Strength [xx] Patient feels connected with others/family/visitors/staff [] Distress [] Loneliness/isolation [] Abandonment Spirituality of Patient [xx] Person of Nellie [] Attends Congregational of their Nellie [xx] Believes in Prayer [] Reads Bible or Confucianist materials [] There are Spiritual issues to be addressed Life Coach Interventions [xx] Prayer [xx] Active listening [xx] Non-anxious presence [] Spiritual/emotional support [] Crisis/trauma care [] Spiritual counseling [] Bereavement support [] Provided bereavement packet [] Provided Bible/devotional materials [] Provided toy/stuffed animal, coloring book to patient or family member [] Provided Communion [] Anointing/Starr [] Salvation [xx] Completed spiritual assessment [] Other: Impact on Illness or Injury [] Angry [] Fearful [] Anxious [] Often cries [] Exhaustion [] Unable to work [] Unable to attend zoroastrianism [] Unable to walk/stand [] Unable to read [] Unable to drive [] Unable to eat/drink [] Unable to sleep [] Unable to be with family [] Patient intubated [] Other: Summary Patient stated his is coming to visit today and he is very much loking forward to her visit. Just that thought makes him feel better, he said. He has a one-on-one monitor with him when he is alone. Time spent with patient 5 minutes
[2021-10-15 12:53] VITALS: BP 109/73; PULSE 86; RESP 18; TEMP 36.5; O2SAT 91
[2021-10-15 16:00] VITALS: BP 120/84; PULSE 81; RESP 17; TEMP 36.4; O2SAT 97
[2021-10-15 17:17] LABS: Glucose Point of Care 304 mg/dL (70-110)
[2021-10-15] MEDS: insulin lispro 100 unit/1 mL SUBCUT ×2 (18:19→21:44)
[2021-10-15 20:00] VITALS: BP 132/67; PULSE 76; RESP 18; TEMP 36.6; O2SAT 94
[2021-10-15] MEDS: pantoprazole 40 mg SDV IVP (20:36)
[2021-10-15 21:21] LABS: Glucose Point of Care 286 mg/dL (70-110)
[2021-10-15] MEDS: insulin glargine 100 units/1 mL 20 UNIT SUBCUT (21:44)
[2021-10-15] MEDS: atorvastatin 40 mg Tablet PO (21:45)
[2021-10-16] VITALS: BP 136/64; PULSE 82; RESP 19; TEMP 36.3; O2SAT 97
[2021-10-16 04:00] VITALS: BP 131/62; PULSE 78; RESP 17; TEMP 36.4; O2SAT 97
[2021-10-16] MEDS: tamsulosin 0.4 mg Capsule PO (05:38)
[2021-10-16] MEDS: citalopram 20 mg Tablet 10 MG PO (05:38)
[2021-10-16 06:42] LABS: Glucose Point of Care 225 mg/dL (70-110)
[2021-10-16 07:45] VITALS: BP 121/73; PULSE 97; RESP 18; TEMP 36.5; O2SAT 100
[2021-10-16 08:23] LABS: Basophils # 0.1 10^3/uL (0.0-0.1); Basophils % 0.4 %; Eosinophils # 0.2 10^3/uL (0.0-0.8); Eosinophils % 1.3 %; Hematocrit 36.3 % (42.0-52.0); Lymphocytes # 1.6 10^3/uL (0.8-4.8); Lymphocytes % 13.9 %; Mean Corpuscular HGB Conc 30.3 g/dL (30.0-36.0); Mean Corpuscular Hemoglobin 18.6 pg (28.0-34.0); Mean Corpuscular Volume 61.3 fl (80-94); Monocytes # 1.1 10^3/uL (0.2-0.9); Monocytes % 9.3 %; Neutrophils # 8.55 10^3/uL (1.8-7.7); Neutrophils % 74.6 %; Nucleated Red Blood Cells % 0.2 %; Platelet Count 169 10^3/cmm (130-400); Red Blood Count 5.92 10^6/uL (4.1-5.3); Red Cell Distribution Width 19.5 % (12.1-15.1); White Blood Count 11.5 10^3/uL (4.0-10.0)
[2021-10-16 08:36] LABS: Anion Gap 12.1 (5-19); Blood Urea Nitrogen 28 mg/dL (8-23); Calcium 9.1 mg/dL (8.5-10.5); Carbon Dioxide 28 mmol/L (22-29); Chloride 102 mmol/L (98-107); Glomerular Filtration Rate 96.1 mL/min (90-130); Glucose 189 mg/dL (65-115); Osmolality Calculated 297 mOsm/kg (285-295); Potassium 4.1 mmol/L (3.5-5.1); Sodium 138 mmol/L (136-145)
[2021-10-16] MEDS: predniSONE 10 mg Tablet 15 MG PO (11:47)
[2021-10-16] MEDS: aspirin 81 mg EC Tablet PO (11:48)
[2021-10-16 12:00] VITALS: BP 130/88; PULSE 90; RESP 18; TEMP 36.3; O2SAT 97
[2021-10-16 12:07] LABS: Glucose Point of Care 290 mg/dL (70-110)
[2021-10-16 12:17] LABS: Glucose Point of Care 299 mg/dL (70-110)
[2021-10-16] MEDS: insulin glargine 100 units/1 mL 30 UNIT SUBCUT (12:23)
[2021-10-16] MEDS: insulin lispro 100 unit/1 mL SUBCUT ×3 (12:35→23:32)
[2021-10-16 14:42] LABS: Quest SARS-CoV-2 RNA NOT DETECTED (NOT DETECTED)
[2021-10-16 15:35] VITALS: BP 132/78; PULSE 18; RESP 82; TEMP 36.3; O2SAT 98
--- NOTE | 2021-10-16 16:55 | PM.PN ---
Subjective Subjective: Interval history: Denies any complaints. Has been noted mildly confused. Got up to the commode. Denies N/V abdominal pain. Ate. Vitals/I&O/Wt Last Vital Signs Temp 97.4 F L 10/16/21 15:35 Pulse 18 L 10/16/21 15:35 Resp 82 H 10/16/21 15:35 BP 132/78 10/16/21 15:35 Pulse Ox 98 10/16/21 15:35 10/16/21 10/16/21 10/16/21 06:59 14:59 22:59 Intake Total 360 / 1240 480 / 480 Output Total 200 / 200 Balance 360 / 1240 280 / 280 Weight last 48 hrs Weight 118.388 kg Weight 117.934 kg Weight 117.934 kg Physical Exam Const: COMMON NORMALS: alert GENERAL APPEARANCE: cooperative and comfortable NUTRITIONAL APPEARANCE: obese morbidly obese ORIENTATION/CONSCIOUSNESS: Yes awake HENMT: COMMON NORMALS: oropharynx normal Neck/C-Spine: COMMON NORMALS: no JVD Resp: COMMON NORMALS: normal respiratory effort and clear to auscultation bilaterally AUSCULTATION: clear to auscultation bilaterally Cardio: COMMON NORMALS: no JVD, regular rhythm, S1 normal heart sound present, S2 normal heart sound present and No murmurs present (Cardio) RHYTHM: regular rhythm HEART SOUNDS: S1 normal heart sound present and S2 normal heart sound present GI: COMMON NORMALS: Normal to inspection, nondistended, normoactive bowel sounds present, Soft to palpation and non-tender PALPATION: Yes Soft to palpation OTHER: Large pannus : BLADDER/KIDNEY EXAM: No CVA tenderness Back/Pelvis: GENERAL BACK: No CVA tenderness Extremity: COMMON NORMALS: no joint enlargement GENERAL: Yes edema (1+) Neuro: COMMON NORMALS: moves all extremities SENSORIUM/ORIENTATION: Yes alert Skin: COMMON NORMALS: no rashes or lesions noted GENERAL SKIN EXAM: no rashes or lesions noted Data : 10/16/21 07:34 10/16/21 07:34 Micro: Microbiology 10/14/21 20:43 Blood Culture - Preliminary Blood Gram Negative Rods 10/14/21 20:49 Blood Culture - Preliminary Blood Gram Negative Rods 10/14/21 15:22 Urine Culture - Final Urine,Clean Catch Klebsiella pneumonia esbl A&P Assessment and plan (1) Pyelonephritis: Primaxin for ESBL klebsiella. GNR bacteremia. Follow-up culture results. He is clinically improving. Follow-up blood cultures. Negative COVID-19. Sepsis with fever 101.7, leukocytosis 13. Improving. Blood cultures given history of endocarditis after TAVR. Status: Acute (2) Altered mental status: Improved. Encephalopathy suspect due to acute infection, complicated UTI, pyelonephritis. GNR bacteremima. With quite significant rigors in ER. Malaise. Negative COVID-19. Hold medications which may contribute. Status: Acute (3) Cystitis: Cystitis noted on CT. As above. Status: Acute (4) Recurrent UTI: Chronically on methenamine. Status: Acute (5) KELL (acute kidney injury): Improving. BUN decreasing. Has not been eating well. Suspect prerenal etiology. Also on lisinopril. Hold. Also appears uses Voltaren topically for arthritis. Hold, consider discontinue. Hold bumetanide. Status: Acute Additional A&P Information History of CHF, Last TTE 2018, 50% EF, global hypokinesis. DM2: At home usually on Lantus 40 in the morning, 30 in the evening. Continue, but will reduce dose. Sliding scale insulin. History of TAVR History of endocarditis: Currently on amoxicillin, following with ID in [place]. Hold amoxicillin for now while on Primaxin. A. fib: Continue warfarin. INR 2.4. Blood pressure currently appears softer than previously, , hold off on carvedilol for now. Monitor blood pressures, heart rate. RA on chronic steroid, leflunomide History of CHF HTN AJAY not on CPAP Thalassemia A number of other comorbidities noted. Does not eat pork Attestations Medical Necessity Statement*: Continue admission for assessment and management of complicated urinary tract infection, pyelonephritis. GNR bacteremia. Coding Level of Care Code Acute Supervisory Historian for Chg Fwd Exam Comprehensive Diagnoses Pyelonephritis N12 Altered mental status R41.82 Cystitis N30.90 Recurrent UTI N39.0 KELL (acute kidney injury) N17.9
[2021-10-16 20:00] VITALS: BP 151/101; PULSE 94; RESP 19; TEMP 36.9; O2SAT 98
[2021-10-16] MEDS: pantoprazole 40 mg SDV IVP (20:35)
[2021-10-16] MEDS: atorvastatin 40 mg Tablet PO (21:52)
[2021-10-16 22:10] LABS: Glucose Point of Care 296 mg/dL (70-110)
[2021-10-16] MEDS: insulin glargine 100 units/1 mL 20 UNIT SUBCUT (23:34)
[2021-10-17] VITALS: BP 161/108; PULSE 98; RESP 20; TEMP 36.9; O2SAT 98
[2021-10-17 04:00] VITALS: BP 132/101; PULSE 75; RESP 18; TEMP 36.6; O2SAT 98
[2021-10-17] MEDS: citalopram 20 mg Tablet 10 MG PO (06:41)
[2021-10-17] MEDS: tamsulosin 0.4 mg Capsule PO (06:41)
[2021-10-17 07:01] LABS: Basophils % 0.3 %; Eosinophils # 0.1 10^3/uL (0.0-0.8); Eosinophils % 0.7 %; Hematocrit 38.3 % (42.0-52.0); Hemoglobin 11.5 g/dL (11.7-16.6); Lymphocytes # 1.9 10^3/uL (0.8-4.8); Lymphocytes % 15.8 %; Mean Corpuscular Hemoglobin 18.1 pg (28.0-34.0); Mean Corpuscular Volume 60.1 fl (80-94); Monocytes # 0.8 10^3/uL (0.2-0.9); Monocytes % 6.7 %; Neutrophils # 9.35 10^3/uL (1.8-7.7); Nucleated Red Blood Cells % 0.2 %; Platelet Count 223 10^3/cmm (130-400); Red Blood Count 6.37 10^6/uL (4.1-5.3); Red Cell Distribution Width 19.4 % (12.1-15.1); White Blood Count 12.3 10^3/uL (4.0-10.0)
[2021-10-17 07:15] LABS: Glucose Point of Care 137 mg/dL (70-110)
[2021-10-17 07:33] LABS: Anion Gap 12.2 (5-19); Blood Urea Nitrogen 23 mg/dL (8-23); Calcium 9.3 mg/dL (8.5-10.5); Carbon Dioxide 26 mmol/L (22-29); Chloride 103 mmol/L (98-107); Glomerular Filtration Rate 112.1 mL/min (90-130); Glucose 123 mg/dL (65-115); Osmolality Calculated 289 mOsm/kg (285-295); Potassium 4.2 mmol/L (3.5-5.1); Sodium 137 mmol/L (136-145)
[2021-10-17 07:59] VITALS: BP 140/90; PULSE 107; RESP 18; TEMP 36.6; O2SAT 96
[2021-10-17 09:55] LABS: INR 2.18 (0.8-1.2)
[2021-10-17] MEDS: predniSONE 10 mg Tablet 15 MG PO (10:13)
[2021-10-17] MEDS: insulin glargine 100 units/1 mL 30 UNIT SUBCUT (10:13)
[2021-10-17] MEDS: aspirin 81 mg EC Tablet PO (10:13)
[2021-10-17 11:00] LABS: Glucose Point of Care 218 mg/dL (70-110)
--- NOTE | 2021-10-17 11:01 | PC.SOCIAL ---
IMM UPDATE IMM updated called and explained it to patient which voiced understanding, initialed and dated and copy placed in chart.
[2021-10-17 11:29] VITALS: BP 154/102; PULSE 87; RESP 16; TEMP 36.3; O2SAT 100
[2021-10-17] MEDS: insulin lispro 100 unit/1 mL SUBCUT (12:55)
[2021-10-17] MEDS: ertapenem 1,000 MG in sodium chloride 0.9% (plus) 100 ML 200 MG IV (14:11)
--- NOTE | 2021-10-17 20:51 | PM.DCS ---
Discharge Providers Date of Admission: 10/14/21 19:40 Date of Discharge: October 17, 2021 Attending Provider at Admission: Elian Buitrago Attending Provider at Discharge: Elian Buitrago Primary Care Provider: Faustina Gonzalez NP Diagnoses at Discharge Discharge Diagnosis (1) Pyelonephritis: Status: Acute (2) Altered mental status: Status: Acute (3) Cystitis: Status: Acute (4) Recurrent UTI: Status: Acute Permanent problem details: Multidrug-resistant organisms (5) KELL (acute kidney injury): Status: Acute Reason for Visit Reason for Visit: pyelonephritis Hospital Course Hospital Course Was admitted and treated for sepsis, with fever one 1.7, leukocytosis 13, acute encephalopathy, acute kidney injury, complicated urine tract infection, pyelonephritis noted on CT, with acute encephalopathy, acute kidney injury on presentation, received treatment with Primaxin, with urine cultures eventually growing Klebsiella pneumonia ESBL, with blood cultures also growing gram-negative rods 2/3 bottles. COVID-19 was negative. His condition improved significantly. Encephalopathy resolved entirely. Leukocytosis with improvement. Remains afebrile and without other signs of sepsis. KELL resolved. Given complicated urinary tract infection with ESBL organism, complicated with bacteremia, he will complete additional 5 days of IV antibiotics with ertapenem at the infusion center. As per discussion with him and his they are encouraged to follow-up with soonest available appointment with infectious disease specialist in [place] where he usually follows. Follow-up with urology given recurrence of complicated UTI/pyelonephritis. CT scan also noted cholelithiasis and other incidental findings including indeterminate hyperdense foci in the left kidney, possibly presenting hemorrhagic/proteinaceous cysts. Diffuse mild wall thickening of the urinary bladder. Stable calcifications of the vas deferens. Large fat-containing umbilical hernia without evidence of triangulation, diverticulosis and other. Please see full report for details. Physical Exam Const: COMMON NORMALS: alert GENERAL APPEARANCE: cooperative and comfortable NUTRITIONAL APPEARANCE: obese morbidly obese ORIENTATION/CONSCIOUSNESS: Yes awake HENMT: COMMON NORMALS: oropharynx normal Neck/C-Spine: COMMON NORMALS: no JVD Resp: COMMON NORMALS: normal respiratory effort and clear to auscultation bilaterally AUSCULTATION: clear to auscultation bilaterally Cardio: COMMON NORMALS: no JVD, regular rhythm, S1 normal heart sound present, S2 normal heart sound present and No murmurs present (Cardio) RHYTHM: regular rhythm HEART SOUNDS: S1 normal heart sound present and S2 normal heart sound present GI: COMMON NORMALS: Normal to inspection, nondistended, normoactive bowel sounds present, Soft to palpation and non-tender PALPATION: Yes Soft to palpation OTHER: Large pannus : BLADDER/KIDNEY EXAM: No CVA tenderness Back/Pelvis: GENERAL BACK: No CVA tenderness Extremity: COMMON NORMALS: no joint enlargement GENERAL: Yes edema (1+) Neuro: COMMON NORMALS: moves all extremities SENSORIUM/ORIENTATION: Yes alert Skin: COMMON NORMALS: no rashes or lesions noted GENERAL SKIN EXAM: no rashes or lesions noted Discharge Data Data Completed and Pending: Completed Studies During Hospitalization Category Date Time Status CT head wo con* 7 0450 Urgent Cat Scan 10/14/21 15:[address] kidney stone 7 [id number] Urgent Cat Scan 10/14/21 16:28 Completed Pending at discharge Category Date Time Status Blood Culture Sta t Lab 10/14/21 20:49 Results Labs from last 24 hours 10/17/21 10/17/21 10/17/21 10:49 09:25 06:59 WBC RBC Hgb Hct MCV MCH MCHC RDW Plt Count MPV Neut % (Auto) Lymph % (Auto) [place] % (Auto) Eos % (Auto) Baso % (Auto) Neut # (Auto) Lymph # (Auto) [place] # (Auto) Eos # (Auto) Baso # (Auto) Nucleated RBC % (a uto) Nucleated RBCs # PT 24.70 H INR 2.18 H Sodium Potassium Chloride Carbon Dioxide Anion Gap BUN Creatinine GFR Calculation Glucose POC Glucose 218 H 137 H Calculated Osmolal ity Calcium 10/17/21 10/17/21 10/16/21 06:51 06:51 22:06 WBC 12.3 H RBC 6.37 H Hgb 11.5 L Hct 38.3 L MCV 60.1 L MCH 18.1 L MCHC 30.0 RDW 19.4 H Plt Count 223 D MPV 10.0 Neut % (Auto) 76.0 Lymph % (Auto) 15.8 [place] % (Auto) 6.7 Eos % (Auto) 0.7 Baso % (Auto) 0.3 Neut # (Auto) 9.35 H Lymph # (Auto) 1.9 [place] # (Auto) 0.8 Eos # (Auto) 0.1 Baso # (Auto) 0.0 Nucleated RBC % (a uto) 0.2 Nucleated RBCs # 0.0 PT INR Sodium 137 Potassium 4.2 Chloride 103 Carbon Dioxide 26 Anion Gap 12.2 BUN 23 Creatinine 0.7 GFR Calculation 112.1 Glucose 123 H POC Glucose 296 H Calculated Osmolal ity 289 Calcium 9.3 Vitals: Last Vital Signs Temp 97.4 F L 10/17/21 11:29 Pulse 87 10/17/21 11:29 Resp 16 10/17/21 11:29 BP 154/102 10/17/21 11:29 Pulse Ox 100 10/17/21 11:29 Discharge Plan Discharge Patient Disposition: Home Condition: Stable Prescriptions: New ertapenem 1 gram recon soln 1 g IV DAILY 5 Days Qty: 5 RF: 0 Continued tamsulosin 0.4 mg capsule 0.4 mg PO DAILY@06 RF: 0 citalopram [Celexa] 10 mg tablet 10 mg PO QAM RF: 0 nitroglycerin [Nitrostat] 0.4 mg tablet, sublingual 0.4 mg SUBLINGUAL Q5M PRN (Reason: Chest Pain) RF: 0 carvedilol 6.25 mg tablet 9.375 mg PO BID RF: 0 bumetanide 2 mg tablet 2 mg PO QAM RF: 0 ascorbic acid (vitamin C) 1,000 mg tablet 1 g PO BID RF: 0 prednisone 5 mg tablet 7.5 mg PO QAM Qty: 45 RF: 1 potassium chloride 20 mEq Tablet Extended Release 20 meq PO BID RF: 0 pantoprazole [Protonix] 40 mg Tablet,Delayed Release (Dr/Ec) 40 mg PO DAILY@06 RF: 0 aspirin 81 mg Tablet,Delayed Release (Dr/Ec) 81 mg PO DAILY@06 RF: 0 Lantus Solostar U-100 Insulin 100 unit/mL (3 mL) insulin pen See Rx Instructions .ROUTE .COMPLEX RF: 0 Florajen Acidophilus 20 billion cell Capsule 20,000 mmu cells PO QPM RF: 0 PNV cmb#95-ferrous fumarate-FA [ Multivitamins] 28 mg iron- 800 mcg Tablet 1 tab PO DAILY@06 RF: 0 warfarin 5 mg tablet 7.5 mg PO DAILY Qty: 45 RF: 0 atorvastatin 40 mg tablet 40 mg PO DAILY@19 RF: 0 diltiazem HCl 120 mg capsule,extended release 24hr 120 mg PO DAILY@06 RF: 0 hydroxyzine pamoate 25 mg capsule 25 mg PO BID RF: 0 lisinopril 20 mg 1 tab PO QAM RF: 0 Held methenamine hippurate 1 gram tablet 1 g PO BID Qty: 180 RF: 3 Hold Instructions: Resume on 10/23/21. amoxicillin 500 mg capsule 500 mg PO BID RF: 0 Hold Instructions: Resume on 10/23/21. leflunomide 10 mg tablet 10 mg PO DAILY Qty: 30 RF: 3 Hold Instructions: Resume on 10/23/21. Discharge Orders: Discharge Order (Routine); Ordered 10/17/21 Ordered By: Elian Buitrago Referrals: Outpatient IV administration [Other] (Appointment 9am on 10/17/21 Check in at main admissions) Faustina Gonzalez NP [Primary Care Provider] - 4-7 days Billy Berkowitz MD [Physician] - 7-10 days Discharge Diet: Advance as tolerated Discharge Activity: Increase activity as tolerated Patient Instructions: Acute Kidney Injury (GEN), Kidney Infection (GEN), Dysuria (ED), Urinary Tract Infection in Older Adults (ED), Opioid Safety Activity Restrictions/Additional Instructions: Please follow-up with infectious disease doctor at soonest available appointment, discussed again recurrence of pyelonephritis with with gram-negative cristina organism Klebsiella, with ESBL resistance. Please discuss also gram-negative cristian bacteremia associated with the pyelonephritis. Similarly please follow-up with urology Dr. Berkowitz to discuss recurrent pyelonephritis. Please discuss regarding indeterminate hyperdense foci in the left kidney, possibly hemorrhagic/proteinaceous cysts. Discussed regarding diffuse mild wall thickening of the urinary bladder. Resume amoxicillin, methenamine, leflunomide after you complete antibiotic course. In case you start spiking high fever, or becoming confused, unable to eat, develop severe pain, or other concerning symptoms, please seek medical attention immediately. Please note you had acute kidney injury on presentation as well which has resolved. Please have your primary doctor follow-up your kidney function. Please discuss with your primary doctor regarding gallbladder stones incidentally seen on CT scan. Incidentally noted also a large fat-containing umbilical hernia without evidence of strangulation. Continue follow-up with regards to other chronic conditions including diabetes, congestive heart failure, atrial fibrillation, hypertension, sleep apnea. Please discuss consideration of CPAP therapy. Discharge Attestations Time Spent in Discharge Care*: greater than 30 min Status at Discharge: Cognitive status at discharge: cognitively intact, Behavioral status at discharge: cooperative, Quality Metrics Clinical Quality Measures During this hospital stay, did patient experience: None Coding Level of Care Code Acute Chg FW DC note Diagnoses Pyelonephritis N12 Altered mental status R41.82 Cystitis N30.90 Recurrent UTI N39.0 KELL (acute kidney injury) N17.9
== END 2021-10-17 16:05 | disposition home health service (06) | DRG 871 ==
LOC: ER 19:05 → MEDSURG 19:43
PROVIDERS: Admitting Provider Internal Medicine; Emergency Provider Emergency Medicine; PCP Nurse Practitioner Family; Visit Provider Internal Medicine
DX: A41.89 Other specified sepsis (principal); G93.41 Metabolic encephalopathy; N10 Acute pyelonephritis; Z16.12 Extended spectrum beta lactamase (ESBL) resistance; Z16.24 Resistance to multiple antibiotics; N17.9 Acute kidney failure, unspecified; N30.90 Cystitis, unspecified without hematuria; B96.1 Klebsiella pneumoniae [K. pneumoniae] as the cause of diseases classified elsewhere; I48.91 Unspecified atrial fibrillation; M06.9 Rheumatoid arthritis, unspecified; G47.33 Obstructive sleep apnea (adult) (pediatric); D56.9 Thalassemia, unspecified; E11.9 Type 2 diabetes mellitus without complications; K80.20 Calculus of gallbladder without cholecystitis without obstruction; K42.9 Umbilical hernia without obstruction or gangrene; R93.422 Abnormal radiologic findings on diagnostic imaging of left kidney; Z79.01 Long term (current) use of anticoagulants; Z79.4 Long term (current) use of insulin; Z79.52 Long term (current) use of systemic steroids; Z86.79 Personal history of other diseases of the circulatory system; Z95.2 Presence of prosthetic heart valve
CPT/HCPCS: 36415; 36416; 70450; 74176; 80048; 80053; 81001; 82962; 83605; 83690; 84484; 85025; 85610; 87040; 87077; 87086; 87186; 87205; 87635; 96365; 96372; 96375; 99285; C9113; J0743; J1335; J1815 ×2; J7512

== ENCOUNTER → 2021-10-18 08:58 | Day surgery (SDC) | payer MEDICARE, OTHER, SELFPAY ==
[2021-10-18 09:47] VITALS: BP 137/79; PULSE 90; RESP 18; TEMP 36.6; O2SAT 97
[2021-10-18] MEDS: ertapenem 1,000 MG in sodium chloride 0.9% (plus) 100 ML 200 MG IV (09:55)
== END ==
PROVIDERS: PCP Nurse Practitioner Family; Visit Provider Internal Medicine
DX: N12 Tubulo-interstitial nephritis, not specified as acute or chronic (principal)
CPT/HCPCS: 96365; J1335

== ENCOUNTER → 2021-10-19 09:49 | Day surgery (SDC) | payer MEDICARE, OTHER, SELFPAY ==
[2021-10-19 10:00] VITALS: BP 99/73; PULSE 69; RESP 18; TEMP 36.3; O2SAT 99
[2021-10-19] MEDS: ertapenem 1,000 MG in sodium chloride 0.9% (plus) 100 ML 200 MG IV (10:05)
== END ==
PROVIDERS: PCP Nurse Practitioner Family; Visit Provider Internal Medicine
DX: N12 Tubulo-interstitial nephritis, not specified as acute or chronic (principal)
CPT/HCPCS: 96365; J1335

== ENCOUNTER 2021-11-05 01:08 | Emergency (ER) | payer MEDICARE, OTHER, SELFPAY ==
[2021-11-05 01:12] VITALS: BP 131/84; PULSE 120; RESP 18; TEMP 36.8; O2SAT 96; BMI 35.5
--- NOTE | 2021-11-05 01:24 | ECG_ITS ---
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 Measurements Intervals [place] Rate: 86 P: HI: QRS: -27 QRSD: 110 T: 71 QT: 397 QTc: 477 Interpretive Statements ATRIAL FIBRILLATION BORDERLINE LEFT AXIS DEVIATION [QRS AXIS < -20] NONSPECIFIC ST & T-WAVE ABNORMALITY ABNORMAL RHYTHM ECG Compared to ECG 07/13/2021 03:57:57 Possible ischemia no longer present T-wave abnormality still present Electronically Signed On 11-06-2021 7:37:21 PHILOSOPHY INSTRUCTOR by Cassy Monreal M.D. [id number]
--- NOTE | 2021-11-05 01:29 | XRR_ITS ---
PROCEDURE INFORMATION: Exam: XR Chest Exam date and time: 11/05/2021 1:29 AM Age: 66 years old Clinical indication: Shortness of breath; Prior surgery; Additional info: Chf, confusion TECHNIQUE: Imaging protocol: XR of the chest. Views: 1 view. COMPARISON: 1. CR XR chest 1V portable [id number] 2021-07-15 11:30 2. CR XR chest 1V portable [id number] 2021-07-12 10:32 3. CR XR chest 1V portable [id number] 2021-06-24 15:25 4. CR XR chest 2V* [id number] 2021-03-10 13:39 FINDINGS: Limitations: Limited by patient's body habitus. Lungs: Unremarkable. No consolidation. Pleural spaces: Unremarkable. No pleural effusion. No pneumothorax. Heart/Mediastinum: Unremarkable. No cardiomegaly. Bones/joints: Unremarkable. Soft tissues: Mediastinal lipomatosis. XR/XR chest 1V portable [id number] IMPRESSION: No acute findings.
--- NOTE | 2021-11-05 01:29 | W.ED.AMS ---
HPI - Altered Mental Status General: Chief Complaint: Altered Mental Status Stated Complaint: confused Time Seen by Provider: 11/05/21 01:22 History of Present Illness: HPI narrative: states patient was little confused earlier this evening. Decided bring him in. He was recently discharged from the hospital 2 weeks ago for UTI. Patient has a history of chronic UTIs. Also has a history of CHF. said he is no longer confused. complaint: confusion Onset (ago): hour(s) Timing confirmed by: family member Severity: mild Consistency of symptoms: Waxing and Waning Context: other (Chronic UTIs) Associated symptoms: Deny depression Review of Systems Const: Denies: fever(s), chills or body aches Eyes: Denies: change in vision or blurry vision ENMT: Denies: throat pain or nasal congestion Card: Denies: chest pain or dyspnea on exertion Resp: Denies: dyspnea, productive cough or non-productive cough GI: Denies: abdominal pain, nausea or vomiting : Reports: urinary urgency; Denies: difficulty urinating Musc: Denies: extremity pain Skin/Breast: Denies: rash Neuro: Reports: other (Had confusion earlier this evening.); Denies: headache(s) Psych: Denies: anxiety or depression Aaron/Lymph: Denies: easy bruising PFSH ED PFSH: Medical History Aortic stenosis Had TAVR replacement 2017. 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 that looks to have ended early 02/2021 Essential hypertension Gout Hx of [place] spotted fever Ischemic cardiomyopathy Left ventricular hypertrophy Obesity AJAY (obstructive sleep apnea) Pulmonary HTN Recurrent UTI Multidrug-resistant organisms Renal calculi Rheumatoid arthritis Thalassemia Surgical History H/O lithotripsy S/P TAVR (transcatheter aortic valve replacement) (~2018) Family History Mother Stroke Father Myocardial infarction Other CAD (coronary artery disease) Chronic kidney disease (CKD) Diabetes Hypertension Social History Smoking and tobacco status: former smoker Quit status (tobacco): has quit using tobacco Year quit tobacco: 2019 - Chewing Tobacco Former quit date comment: Hx of 1/2 can x 50 Years Second hand smoke exposure: No Smoking risk assessment/counseling performed?: No Alcohol intake: former Lives independently: No Household members: spouse Marital status: Current occupational status: retired and disabled History of recent travel: No Current gender identity: Male Physical Exam Const: COMMON NORMALS: no acute distress, average body habitus and patient oriented x3 HENMT: COMMON NORMALS: normocephalic HEAD & SCALP: normal to inspection and normocephalic FACE & SINUS: normal facial exam Eye: COMMON NORMALS: conjunctivae normal GENERAL EYE: appearance normal, both eyes and all related structures CONJUNCTIVA: Yes conjunctivae normal Neck/C-Spine: COMMON NORMALS: no JVD Chest: COMMONS NORMALS: normal inspection of the chest Resp: COMMON NORMALS: normal respiratory effort AUSCULTATION: diminished lung sounds Cardio: COMMON NORMALS: no JVD RATE: tachycardic RHYTHM: abnormal rhythm GI: AUSCULTATION: Yes normoactive bowel sounds PALPATION: Yes Other GI palpation findings present (Patient is obese with a large abdomen) Extremity: COMMON NORMALS: normal to inspection and full ROM Neuro: COMMON NORMALS: patient oriented x3 and moves all extremities Psych: COMMON NORMALS: mental status grossly normal Skin: OTHER: Dry Course Vital Signs: Vital signs: Vital Signs Temperature 98.3 F 11/05/21 01:12 Pulse Rate 97 11/05/21 02:54 Respiratory Rate 18 11/05/21 01:12 Blood Pressure 142/102 11/05/21 02:54 Pulse Oximetry 98 11/05/21 02:54 MDM - Altered Mental Status MDM Narrative: Medical decision making narrative: Patient presents with a possible UTI symptoms and confusion early in the evening. Patient is not confused at this time is alert and appropriate. Work-up was done showed that he has another UTI going on is not septic. Discussed case with Dr. Smith including lab results radiology evaluations and readings and clinical presentation. Discussed patient's history of Klebsiella positive blood cultures and urine. Dr. Smith recommend I speak with Dr. Downing. Spoke with Dr. Soto concerning appropriate antibiotic coverage and agreed that Augmentin would be worth trying with his microbiology sensitivity history. She asked that I order a fosfomycin sensitivity for the urine culture. Discussed care with patient and agreed to outpatient treatment and to return if worsening of symptoms. Lab Data: Labs: Lab Results 11/05/21 11/05/21 11/05/21 01:22 01:47 01:47 WBC 8.9 10^3/uL 10^3/ uL (4.0-10.0) RBC 6.51 10^6/uL H 10 ^6/uL (4.1-5.3) Hgb 11.8 g/dL g/dL (11.7-16.6) Hct 39.6 % L % (42.0-52.0) MCV 60.8 fl L fl (80-94) MCH 18.1 pg L pg (28.0-34.0) MCHC 29.8 g/dL L g/dL (30.0-36.0) RDW 19.9 % H % (12.1-15.1) Plt Count 198 10^3/cmm 10^3 /cmm (130-400) MPV fL fL (7.4-10.4) Neut % (Auto) 59.1 % % Lymph % (Auto) 28.7 % % [place] % (Auto) 9.2 % % Eos % (Auto) 1.9 % % Baso % (Auto) 0.8 % % Neut # (Auto) 5.27 10^3/uL 10^3 /uL (1.8-7.7) Lymph # (Auto) 2.6 10^3/uL 10^3/ uL (0.8-4.8) [place] # (Auto) 0.8 10^3/uL 10^3/ uL (0.2-0.9) Eos # (Auto) 0.2 10^3/uL 10^3/ uL (0.0-0.8) Baso # (Auto) 0.1 10^3/uL 10^3/ uL (0.0-0.1) Nucleated RBC % (a uto) 0.2 % % Nucleated RBCs # 0.0 /100WBC /100W BC Sodium 136 mmol/L mmol/L (136-145) Potassium 4.7 mmol/L mmol/L (3.5-5.1) Chloride 103 mmol/L mmol/L (98-107) Carbon Dioxide 21 mmol/L L mmol/ L (22-29) Anion Gap 16.7 (5-19) BUN 38 mg/dL H mg/dL (8-23) Creatinine 1.2 mg/dL mg/dL (0.7-1.2) GFR Calculation 60.2 mL/min L mL/ min (90-130) Glucose 221 mg/dL H mg/dL (65-115) Calculated Osmolal ity 298 mOsm/kg H mOs m/kg (285-295) Calcium 8.9 mg/dL mg/dL (8.5-10.5) Total Bilirubin 0.7 mg/dL mg/dL (0.15-1.2) AST 27 U/L U/L (0-40) ALT 21 U/L U/L (0-41) Alkaline Phosphata se 66 IU/L IU/L (40-130) Total Protein 6.3 g/dL L g/dL (6.6-8.7) Albumin 3.4 g/dL L g/dL (3.5-5.2) Globulin 2.9 g/dL g/dL (1.3-4.6) Urine Color Yellow (Yellow) Urine Appearance Clear (CLEAR) Urine pH 5 (5-7) Ur Specific Gravit y 1.015 (1.005-1.030) Urine Protein Neg (Negative) Urine Glucose (UA) Norm (Normal) Urine Ketones Negative (Negative) Urine Blood 2+ H (Negative) Urine Nitrate Negative (Negative) Urine Bilirubin Neg (Negative) Urine Urobilinogen Neg mg/dL mg/dL (Negative) Ur Leukocyte Michelle ase 2+ H (Negative) Urine RBC 10-15 /hpf H /hpf (0-2) Urine WBC >100 /hpf H /hpf (0-5) Ur Squamous Epith Cells 0-4 /hpf H /hpf (0-5) Amorphous Sediment Not Reportable Urine Bacteria Trace /hpf /hpf (NONE) Discharge Plan Discharge Patient Disposition: Home Clinical Impression: Chronic UTI Condition: Stable Prescriptions: New Augmentin 875-125 mg tablet 1 tab PO BID Qty: 14 RF: 0 No Action tamsulosin 0.4 mg capsule 0.4 mg PO DAILY@06 RF: 0 citalopram [Celexa] 10 mg tablet 10 mg PO QAM RF: 0 nitroglycerin [Nitrostat] 0.4 mg tablet, sublingual 0.4 mg SUBLINGUAL Q5M PRN (Reason: Chest Pain) RF: 0 carvedilol 6.25 mg tablet 9.375 mg PO BID RF: 0 bumetanide 2 mg tablet 2 mg PO QAM RF: 0 ascorbic acid (vitamin C) 1,000 mg tablet 1 g PO BID RF: 0 methenamine hippurate 1 gram tablet 1 g PO BID Qty: 180 RF: 3 Hold Instructions: Resume on 10/23/21. amoxicillin 500 mg capsule 500 mg PO BID RF: 0 Hold Instructions: Resume on 10/23/21. leflunomide 10 mg tablet 10 mg PO DAILY Qty: 30 RF: 3 Hold Instructions: Resume on 10/23/21. prednisone 5 mg tablet 7.5 mg PO QAM Qty: 45 RF: 1 potassium chloride 20 mEq Tablet Extended Release 20 meq PO BID RF: 0 pantoprazole [Protonix] 40 mg Tablet,Delayed Release (Dr/Ec) 40 mg PO DAILY@06 RF: 0 aspirin 81 mg Tablet,Delayed Release (Dr/Ec) 81 mg PO DAILY@06 RF: 0 Lantus Solostar U-100 Insulin 100 unit/mL (3 mL) insulin pen See Rx Instructions .ROUTE .COMPLEX RF: 0 Florajen Acidophilus 20 billion cell Capsule 20,000 mmu cells PO QPM RF: 0 PNV cmb#95-ferrous fumarate-FA [ Multivitamins] 28 mg iron- 800 mcg Tablet 1 tab PO DAILY@06 RF: 0 warfarin 5 mg tablet 7.5 mg PO DAILY Qty: 45 RF: 0 atorvastatin 40 mg tablet 40 mg PO DAILY@19 RF: 0 diltiazem HCl 120 mg capsule,extended release 24hr 120 mg PO DAILY@06 RF: 0 hydroxyzine pamoate 25 mg capsule 25 mg PO BID RF: 0 lisinopril 20 mg 1 tab PO QAM RF: 0 Discharge Orders: Discharge ED (Routine); Ordered 11/05/21 Ordered By: Levon Padgett Referrals: Faustina Gonzalez NP [Primary Care Provider] - Discharge Diet: Usual diet Discharge Activity: Increase activity as tolerated Patient Instructions: Urinary Tract Infection in Men (ED) Activity Restrictions/Additional Instructions: Follow-up with medical provider as directed. Take medications as prescribed. Return to the ER or your medical provider if condition worsens. Please read and understand discharge instructions. If any questions ask please. Coding Level of Care Code ED Automobile Drivers for John Fwd Exam Comprehensive
--- NOTE | 2021-11-05 01:33 | CTR_ITS ---
PROCEDURE INFORMATION: Exam: CT Head Without Contrast Exam date and time: 11/05/2021 1:33 AM Age: 66 years old Clinical indication: Altered mental status/memory loss; Additional info: Confusion TECHNIQUE: Imaging protocol: Computed tomography of the head without contrast. Radiation optimization: All CT scans at this facility use at least one of these dose optimization techniques: automated exposure control; mA and/or kV adjustment per patient size (includes targeted exams where dose is matched to clinical indication); or iterative reconstruction. Other technique: STROKE PROTOCOL was implemented. COMPARISON: 1. CT head wo con* [id number] 2021-10-14 16:[address] head wo con* [id number] 2021-07-12 15:53 RADIATION DOSE METRICS: Total DLP (mGy-cm): 945.36 FINDINGS: Brain: No midline shift, mass, fluid collection, or evidence of acute hemorrhage. Unchanged cerebellar and left frontal and parietal chronic infarcts. Cerebral ventricles: Left lateral ventricle ex vacuo dilatation from volume loss. Paranasal sinuses: Visualized sinuses are unremarkable. No fluid levels. Mastoid air cells: Visualized mastoid air cells are well aerated. Vasculature: Coarse atherosclerotic calcifications in the vertebral and internal carotid arteries. Bones/joints: Unremarkable. No acute fracture. Soft tissues: Unremarkable. CT/CT head wo con* [id number] IMPRESSION: 1. No acute intracranial abnormality. 2. Unchanged cerebellar and left frontal and parietal chronic infarcts. ASSESSMENT: ASPECTS ([place] Stroke Program Early CT Score) is 10.
[2021-11-05 01:52] LABS: Basophils # 0.1 10^3/uL (0.0-0.1); Basophils % 0.8 %; Eosinophils # 0.2 10^3/uL (0.0-0.8); Eosinophils % 1.9 %; Hematocrit 39.6 % (42.0-52.0); Hemoglobin 11.8 g/dL (11.7-16.6); Lymphocytes # 2.6 10^3/uL (0.8-4.8); Lymphocytes % 28.7 %; Mean Corpuscular HGB Conc 29.8 g/dL (30.0-36.0); Mean Corpuscular Hemoglobin 18.1 pg (28.0-34.0); Mean Corpuscular Volume 60.8 fl (80-94); Monocytes # 0.8 10^3/uL (0.2-0.9); Monocytes % 9.2 %; Neutrophils # 5.27 10^3/uL (1.8-7.7); Neutrophils % 59.1 %; Nucleated Red Blood Cells % 0.2 %; Platelet Count 198 10^3/cmm (130-400); Red Blood Count 6.51 10^6/uL (4.1-5.3); Red Cell Distribution Width 19.9 % (12.1-15.1); White Blood Count 8.9 10^3/uL (4.0-10.0)
[2021-11-05] MEDS: sodium chloride 0.9% 500 ML IV (01:52)
[2021-11-05 02:06] VITALS: BP 155/105; PULSE 88; O2SAT 99
[2021-11-05 02:07] LABS: Add Urine Microscopic? YES; Bilirubin Urine Neg (Negative); Blood Urine 2+ (Negative); Glucose Urine UA Norm (Normal); Ketones Urine Negative (Negative); Leukocyte Esterase Urine 2+ (Negative); Nitrate Urine Negative (Negative); Protein Urine Neg (Negative); Specific Gravity, Urine 1.015 (1.005-1.030); Urine Appearance Clear (CLEAR); Urine Color Yellow (Yellow); Urobilinogen Urine Neg (Negative); pH Urine 5 (5-7)
[2021-11-05 02:09] LABS: Add Urine Culture? Yes; Bacteria Urine TRACE /hpf; Squamous Epithelial Cell Urine 0-4 /hpf (0-5); WBC Urine >100 /hpf (0-5)
[2021-11-05 02:15] LABS: Alanine Aminotransferase 21 U/L (0-41); Albumin Level 3.4 g/dL (3.5-5.2); Alkaline Phosphatase 66 IU/L (40-130); Blood Urea Nitrogen 38 mg/dL (8-23); Calcium 8.9 mg/dL (8.5-10.5); Carbon Dioxide 21 mmol/L (22-29); Chloride 103 mmol/L (98-107); Globulin 2.9 g/dL (1.3-4.6); Glomerular Filtration Rate 60.2 mL/min (90-130); Glucose 221 mg/dL (65-115); Osmolality Calculated 298 mOsm/kg (285-295); Sodium 136 mmol/L (136-145); Total Bilirubin 0.7 mg/dL (0.15-1.2); Total Protein 6.3 g/dL (6.6-8.7)
[2021-11-05 02:25] LABS: Slide Review Slide Review Perform
[2021-11-05 02:38] LABS: Anion Gap 16.7 (5-19); Aspartate Amino Transferase 27 U/L (0-40); Potassium 4.7 mmol/L (3.5-5.1)
[2021-11-05] MEDS: amoxicillin-clav 875-125 mg Tablet 1 TAB PO (02:38)
[2021-11-05 02:42] VITALS: BP 142/102; PULSE 97; O2SAT 98
[2021-11-05 02:54] VITALS: BP 142/102; PULSE 97; O2SAT 98
== END 2021-11-05 02:56 | disposition home or self-care (01) ==
PROVIDERS: Emergency Provider Nurse Practitioner Family; PCP Nurse Practitioner Family
DX: N39.0 Urinary tract infection, site not specified (principal); Z87.891 Personal history of nicotine dependence; Z87.440 Personal history of urinary (tract) infections; Z79.82 Long term (current) use of aspirin; E11.9 Type 2 diabetes mellitus without complications; Z79.4 Long term (current) use of insulin
CPT/HCPCS: 70450; 71045; 80053; 81001; 85025; 87077; 87086; 87186; 93005; 96360; 99284; J7040

== ENCOUNTER 2021-11-06 02:23 | Inpatient (IN) | payer MEDICARE, OTHER, SELFPAY ==
[2021-11-06 02:24] VITALS: BP 104/50; PULSE 74; RESP 18; TEMP 36.6; O2SAT 99; BMI 39.0
--- NOTE | 2021-11-06 03:00 | XRR_ITS ---
PROCEDURE INFORMATION: Exam: XR Chest Exam date and time: 11/06/2021 3:00 AM Age: 66 years old Clinical indication: Other: Weakness TECHNIQUE: Imaging protocol: XR of the chest. Views: 1 view. COMPARISON: CR (CHEST, ) 11/05/2021 1:48 AM FINDINGS: Tubes, catheters and devices: Aortic valve prosthesis is in place. Lungs: Unremarkable. No consolidation. Pleural spaces: Unremarkable. No pleural effusion. No pneumothorax. Heart/Mediastinum: There is mild cardiomegaly. Bones/joints: Unremarkable. XR/XR chest 1V portable [id number] IMPRESSION: Mild cardiomegaly.
--- NOTE | 2021-11-06 03:01 | ECG_ITS ---
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
[2021-11-06 03:53] LABS: Basophils # 0.1 10^3/uL (0.0-0.1); Basophils % 0.6 %; Eosinophils # 0.2 10^3/uL (0.0-0.8); Eosinophils % 2.3 %; Hematocrit 36.8 % (42.0-52.0); Hemoglobin 11.1 g/dL (11.7-16.6); Lymphocytes # 2.4 10^3/uL (0.8-4.8); Lymphocytes % 28.2 %; Mean Corpuscular HGB Conc 30.2 g/dL (30.0-36.0); Mean Corpuscular Hemoglobin 18.2 pg (28.0-34.0); Mean Corpuscular Volume 60.3 fl (80-94); Monocytes # 0.9 10^3/uL (0.2-0.9); Neutrophils # 4.86 10^3/uL (1.8-7.7); Neutrophils % 57.5 %; Nucleated Red Blood Cells % 0.2 %; Platelet Count 174 10^3/cmm (130-400); Red Cell Distribution Width 19.7 % (12.1-15.1); White Blood Count 8.4 10^3/uL (4.0-10.0)
[2021-11-06 04:06] LABS: Lactate (Lactic Acid level) 1.5 mmol/L (0.5-2.2)
[2021-11-06 04:09] LABS: Troponin(5th) Baseline 30 ng/L (0-15)
[2021-11-06 04:17] LABS: NT Pro B Type Natriuretic Pept 1373 pg/mL (0-125); Procalcitonin 0.11 ng/mL (0-0.5)
[2021-11-06 04:28] LABS: Alanine Aminotransferase 18 U/L (0-41); Albumin Level 3.3 g/dL (3.5-5.2); Alkaline Phosphatase 55 IU/L (40-130); Aspartate Amino Transferase 16 U/L (0-40); Blood Urea Nitrogen 32 mg/dL (8-23); C Reactive Protein 45.2 mg/L (0.0-4.9); Calcium 8.5 mg/dL (8.5-10.5); Carbon Dioxide 21 mmol/L (22-29); Chloride 102 mmol/L (98-107); Creatine Phosphokinase 53 U/L (39-308); Globulin 2.3 g/dL (1.3-4.6); Glomerular Filtration Rate 66.6 mL/min (90-130); Glucose 140 mg/dL (65-115); Osmolality Calculated 295 mOsm/kg (285-295); Sodium 138 mmol/L (136-145); Total Bilirubin 0.8 mg/dL (0.15-1.2); Total Protein 5.6 g/dL (6.6-8.7)
[2021-11-06 04:37] LABS: Add Urine Microscopic? YES; Bilirubin Urine Neg (Negative); Blood Urine Neg (Negative); Glucose Urine UA Norm (Normal); Ketones Urine Negative (Negative); Leukocyte Esterase Urine 2+ (Negative); Nitrate Urine Negative (Negative); Protein Urine Neg (Negative); Specific Gravity, Urine 1.015 (1.005-1.030); Urine Appearance Clear (CLEAR); Urine Color Yellow (Yellow); Urobilinogen Urine Norm (Negative); pH Urine 5 (5-7)
[2021-11-06 04:38] LABS: Add Urine Culture? Yes; Bacteria Urine TRACE /hpf; RBC Urine 0-4 /hpf (0-2); Squamous Epithelial Cell Urine 0-4 /hpf (0-5); WBC Urine 25-40 /hpf (0-5)
--- NOTE | 2021-11-06 05:01 | ECG_ITS ---
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: : 1955 Requested By: Dale Farfan Order Number: [id number] Reading MD: CATALINA MORRIS Measurements Intervals [place] Rate: 94 P: [place]: QRS: -21 QRSD: 79 T: 66 QT: 367 QTc: 459 Interpretive Statements ATRIAL FIBRILLATION BORDERLINE LEFT AXIS DEVIATION [QRS AXIS < -20] NONSPECIFIC T-WAVE ABNORMALITY ABNORMAL RHYTHM ECG Compared to ECG 11/06/2021 03:21:22 No significant changes Electronically Signed On 11-07-2021 20:00:06 PATIENT RESOURCE SPECIALIST by CATALINA MORRIS [id number]
--- NOTE | 2021-11-06 05:06 | W.ED.WEAKNES ---
HPI - Weakness General: Chief complaint: Weakness Stated complaint: WEAKNESS Time Seen by Provider: 11/06/21 02:48 History of Present Illness: HPI Narrative: 66-year-old male with a history of sepsis 3 weeks ago from Klebsiella pneumonia urinary tract infection. He presents after having been seen yesterday with generalized weakness. He was placed on Augmentin for urinary tract infection. His notes that he has been quite weak the last 24 hours, and has fallen at home. She could not get him up, so she called EMS. He is awake and talking. He says he is tired, weak, and is very hard to move. No fever. Some mild confusion. Complaint: generalized weakness Onset (ago): day(s) (2) Duration: constant and progressively worsening Location: generalized Migration: none Severity: moderate Relieving factors: none Exacerbating factors: none Context: recent illness Associated symptoms: Reports confusion, nausea and vomiting; Denies chest pain, chills, diaphoresis, dysuria, fever(s) or short of breath Review of Systems Const: Denies: fever(s), chills or diaphoresis Card: Denies: chest pain GI: Reports: nausea and vomiting : Denies: dysuria Neuro: Reports: confusion PFSH ED PFSH: Medical History Aortic stenosis Had TAVR replacement 2017. 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 that looks to have ended early 02/2021 Essential hypertension Gout Hx of [place] spotted fever Ischemic cardiomyopathy Left ventricular hypertrophy Obesity AJAY (obstructive sleep apnea) Pulmonary HTN Recurrent UTI Multidrug-resistant organisms Renal calculi Rheumatoid arthritis Thalassemia Surgical History H/O lithotripsy S/P TAVR (transcatheter aortic valve replacement) (~2017) Family History Mother Stroke Father Myocardial infarction Other CAD (coronary artery disease) Chronic kidney disease (CKD) Diabetes Hypertension Social History Smoking and tobacco status: former smoker Quit status (tobacco): has quit using tobacco Year quit tobacco: 2019 - Chewing Tobacco Former quit date comment: Hx of 1/2 can x 50 Years Second hand smoke exposure: No Smoking risk assessment/counseling performed?: No Alcohol intake: former Lives independently: No Household members: spouse Marital status: Current occupational status: retired and disabled History of recent travel: No Current gender identity: Male Physical Exam Const: GENERAL APPEARANCE: cooperative, lethargic, ill appearing and frail appearing ORIENTATION/CONSCIOUSNESS: Yes lethargic HENMT: COMMON NORMALS: normocephalic and atraumatic HEAD & SCALP: normocephalic and atraumatic Eye: COMMON NORMALS: Equal, round and reactive pupils present and EOMs intact bilaterally PUPIL: Yes Equal, round and reactive pupils present Chest: COMMONS NORMALS: normal inspection of the chest Resp: COMMON NORMALS: normal respiratory effort, No use of accessory muscles and clear to auscultation bilaterally AUSCULTATION: clear to auscultation bilaterally Cardio: RATE: tachycardic RHYTHM: abnormal rhythm irregularly irregular GI: COMMON NORMALS: Normal to inspection, nondistended, normoactive bowel sounds present and Soft to palpation PALPATION: Yes Soft to palpation : COMMON NORMALS: Yes no CVA tenderness BLADDER/KIDNEY EXAM: Yes no CVA tenderness Back/Pelvis: COMMON NORMALS: no CVA tenderness Neuro: SENSORIUM/ORIENTATION: Yes lethargic Course Vital Signs: Vital signs: Vital Signs Temperature 97.8 F 11/06/21 02:24 Pulse Rate 74 11/06/21 02:24 Respiratory Rate 18 11/06/21 02:24 Blood Pressure 104/50 11/06/21 02:24 Pulse Oximetry 99 11/06/21 02:24 MDM - Weakness MDM Narrative: Medical decision making narrative: 66-year-old male with a history of atrial fibrillation and heart failure as well as recurrent complicated urinary tract infections. He presents with lethargy, mental status change, and generalized weakness. Has been hypotensive here at times, with lower pressures in the upper 80s systolic. Currently blood pressure is 93/48. His heart rate is 82 and atrial fib, saturations 94%. His respiratory rate is 22. He is on oxygen currently satting 94%. He has received some fluid for blood pressure support. Does have a history of heart failure with a EF of 35%, so fluid was not bolused at the 30 mL/kg volume due to this. His urinalysis is still positive for urinary tract infection. He has no leukocytosis, but CRP is significantly elevated. His BUN is significantly elevated as well, giving him a prerenally azotemic type picture of acute kidney injury. He will require ICU admission for now. He is getting ertapenem here in the ER, as his urine is the likely source identified, and he has a history of ESBL urinary tract infection Lab Data: Labs: Lab Results 11/06/21 11/06/21 11/06/21 03:28 03:45 03:45 WBC 8.4 10^3/uL 10^3/ uL (4.0-10.0) RBC 6.10 10^6/uL H 10 ^6/uL (4.1-5.3) Hgb 11.1 g/dL L g/dL (11.7-16.6) Hct 36.8 % L % (42.0-52.0) MCV 60.3 fl L fl (80-94) MCH 18.2 pg L pg (28.0-34.0) MCHC 30.2 g/dL g/dL (30.0-36.0) RDW 19.7 % H % (12.1-15.1) Plt Count 174 10^3/cmm 10^3 /cmm (130-400) MPV Not Reportable Neut % (Auto) 57.5 % % Lymph % (Auto) 28.2 % % [place] % (Auto) 11.0 % % Eos % (Auto) 2.3 % % Baso % (Auto) 0.6 % % Neut # (Auto) 4.86 10^3/uL 10^3 /uL (1.8-7.7) Lymph # (Auto) 2.4 10^3/uL 10^3/ uL (0.8-4.8) [place] # (Auto) 0.9 10^3/uL 10^3/ uL (0.2-0.9) Eos # (Auto) 0.2 10^3/uL 10^3/ uL (0.0-0.8) Baso # (Auto) 0.1 10^3/uL 10^3/ uL (0.0-0.1) Nucleated RBC % (a uto) 0.2 % % Nucleated RBCs # 0.0 /100WBC /100W BC PT INR Sodium 138 mmol/L mmol/L (136-145) Potassium 4.0 mmol/L mmol/L (3.5-5.1) Chloride 102 mmol/L mmol/L (98-107) Carbon Dioxide 21 mmol/L L mmol/ L (22-29) Anion Gap 19.0 (5-19) BUN 32 mg/dL H mg/dL (8-23) Creatinine 1.1 mg/dL mg/dL (0.7-1.2) GFR Calculation 66.6 mL/min L mL/ min (90-130) Glucose 140 mg/dL H mg/dL (65-115) Calculated Osmolal ity 295 mOsm/kg mOsm/ kg (285-295) Lactate Calcium 8.5 mg/dL mg/dL (8.5-10.5) Total Bilirubin 0.8 mg/dL mg/dL (0.15-1.2) AST 16 U/L U/L (0-40) ALT 18 U/L U/L (0-41) Alkaline Phosphata se 55 IU/L IU/L (40-130) Creatine Kinase 53 U/L U/L (39-308) Troponin T Baselin e C-Reactive Protein 45.2 mg/L H mg/L (0.0-4.9) NT-Pro-B Natriuret Pep 1373 pg/mL H pg/m L (0-125) Total Protein 5.6 g/dL L g/dL (6.6-8.7) Albumin 3.3 g/dL L g/dL (3.5-5.2) Globulin 2.3 g/dL g/dL (1.3-4.6) Procalcitonin 0.11 ng/mL ng/mL (0-0.5) Urine Color Yellow (Yellow) Urine Appearance Clear (CLEAR) Urine pH 5 (5-7) Ur Specific Gravit y 1.015 (1.005-1.030) Urine Protein Neg (Negative) Urine Glucose (UA) Norm (Normal) Urine Ketones Negative (Negative) Urine Blood Neg (Negative) Urine Nitrate Negative (Negative) Urine Bilirubin Neg (Negative) Urine Urobilinogen Norm mg/dL mg/dL (Negative) Ur Leukocyte Michelle ase 2+ H (Negative) Urine RBC 0-4 /hpf H /hpf (0-2) Urine WBC 25-40 /hpf H /hpf (0-5) Ur Squamous Epith Cells 0-4 /hpf H /hpf (0-5) Amorphous Sediment Not Reportable Urine Bacteria Trace /hpf /hpf (NONE) 11/06/21 11/06/21 11/06/21 03:45 03:45 04:50 WBC RBC Hgb Hct MCV MCH MCHC RDW Plt Count MPV Neut % (Auto) Lymph % (Auto) [place] % (Auto) Eos % (Auto) Baso % (Auto) Neut # (Auto) Lymph # (Auto) [place] # (Auto) Eos # (Auto) Baso # (Auto) Nucleated RBC % (a uto) Nucleated RBCs # PT 29.90 SECONDS H S ECONDS (12.1-14.9) INR 2.80 H (0.8-1.2) Sodium Potassium Chloride Carbon Dioxide Anion Gap BUN Creatinine GFR Calculation Glucose Calculated Osmolal ity Lactate 1.5 mmol/L mmol/L (0.5-2.2) Calcium Total Bilirubin AST ALT Alkaline Phosphata se Creatine Kinase Troponin T Baselin e 30 ng/L H ng/L (0-15) C-Reactive Protein NT-Pro-B Natriuret Pep Total Protein Albumin Globulin Procalcitonin Urine Color Urine Appearance Urine pH Ur Specific Gravit y Urine Protein Urine Glucose (UA) Urine Ketones Urine Blood Urine Nitrate Urine Bilirubin Urine Urobilinogen Ur Leukocyte Michelle ase Urine RBC Urine WBC Ur Squamous Epith Cells Amorphous Sediment Urine Bacteria Discharge Plan Discharge Patient Disposition: Admitted As Inpatient Admit Provider: Anjana Downing Clinical Impression: Recurrent UTI Condition: Serious Coding Level of Care Code ED Mental Tester for [facility] Fwd Exam Comprehensive
[2021-11-06] MEDS: sodium chloride 0.9% 500 ML IV (05:07)
[2021-11-06] MEDS: ertapenem 1,000 MG in sodium chloride 0.9% (plus) 100 ML 200 MG IV (06:28)
[2021-11-06 06:56] VITALS: BP 100/66; PULSE 88; RESP 28; O2SAT 92
[2021-11-06 07:04] LABS: Troponin 5 2HR 29.14 ng/L (0-15)
[2021-11-06 07:14] LABS: Troponin 5 2HR Delta -0.86 ABS# (0-10)
[2021-11-06 08:39] VITALS: BP 112/64; PULSE 86; RESP 11; O2SAT 96
--- NOTE | 2021-11-06 08:59 | PM.HP ---
Providers/Chief Complaint Admitting Physician: Anjana Downing MD Primary Care Provider: Faustina Gonzalez NP Chief Complaint: WEAKNESS History of Present Illness Ry Loyd is a 66 year old male 66-year-old gentleman with history of recurrent urinary tract infections, ESBL infections most recently with Klebsiella, Pseudomonas with hospitalization for nonobstructing pyelonephritis in June, also on chronic suppression with amoxicillin due to streak of endocarditis, following TAVR, follows with ID in [place], , on chronic leflunomide, prednisone, however off since 2 weeks since last discharge, follows with rheumatology here in [facility], [facility], on chronic anticoagulation with warfarin, CHF, DM 2, HTN, AJAY, although has refused to wear CPAP, and a number of other comorbidities. Presenting again today with chief complaints of generalized weakness, to the point where he was unable to walk to the bathroom today. Patient's thinks he may additionally be having an RA flare since he has been off of his steroids and leflunomide of the last 2 weeks. Reports recurrence of dysuria. No fever chills. Had presented to the emergency room yesterday with complains of confusion which resolved by the time of ER arrival. Patient is currently awake alert and oriented. Initially hypotensive with systolic blood pressure of 70, improved with IV fluids at this present time. Unvaccinated for COVID-19. No respiratory symptoms at this present time. Blood pressure at time of assessment is 112/64. Review of Systems General: Reports: 10 or more systems reviewed and unremarkable except in HPI and below Const: Denies: fever(s), chills or body aches Eyes: Denies: change in vision, blurry vision or photophobia ENMT: Reports: hoarseness; Denies: throat pain, enlarged tonsils, odynophagia or nasal congestion Card: Denies: chest pain, palpitations, irregular heart rhythm, edema, swelling of feet/ankles, lightheadedness, pre-syncope, dyspnea on exertion or orthopnea Resp: Denies: dyspnea, productive cough, non-productive cough, wheezing, stridor, pain on inspiration, change in phlegm color, hemoptysis or chest congestion GI: Denies: abdominal pain, nausea, vomiting, hematemesis, coffee ground emesis, dysphagia, heartburn, diarrhea, constipation, GI cramping, change in stool character, hematochezia or melena : Denies: flank pain, dysuria, urinary frequency, urinary urgency, urinary hesitancy or hematuria Musc: Denies: neck pain, back pain, extremity pain, joint swelling, joint warmth or deformity Neuro: Denies: headache(s), numbness in extremities, weakness in extremities, sensory changes, difficulty walking, frequent falls, dizziness, vertigo, behavioral changes, Slurred speech present or seizure-like activity Psych: Denies: anxiety, depression, suicidal ideation or homicidal ideation Endo: Denies: polyuria, polydipsia, tired all the time, cold intolerance or hot flashes Aaron/Lymph: Denies: easy bruising or easy bleeding Medications/Allergies Home Medications Medication Instructions Recorded Confirmed Last Taken Type citalopram 10 mg tablet 10 mg PO QAM tab 12/03/19 10/20/21 10/20/21 History nitroglycerin 0.4 mg sublingual 0.4 mg SUBLINGUAL Q5M PRN 12/03/19 10/20/21 10/20/21 History tablet tamsulosin 0.4 mg capsule 0.4 mg PO DAILY@12/03/19 10/20/21 10/20/21 History pantoprazole [Protonix] 40 mg PO DAILY@12/25/19 10/20/21 10/20/21 History potassium chloride 20 meq PO BID 12/25/19 10/20/21 10/20/21 History aspirin 81 mg PO DAILY@10/10/20 10/20/21 10/20/21 History carvedilol 6.25 mg tablet 9.375 mg PO BID tab 10/30/20 10/20/21 10/20/21 History atorvastatin 40 mg PO DAILY@02/17/21 10/20/21 10/20/21 History diltiazem HCl 120 mg PO DAILY@02/17/21 10/20/21 10/20/21 History methenamine hippurate 1 gram tablet 1 g PO BID #180 tab 03/25/21 10/20/21 10/20/21 Rx ascorbic acid (vitamin C) 1,000 mg 1 g PO BID tab 04/23/21 10/20/21 10/20/21 History tablet bumetanide 2 mg tablet 2 mg PO QAM 04/23/21 10/20/21 10/20/21 History hydroxyzine pamoate 25 mg capsule 25 mg PO BID 04/23/21 10/20/21 10/20/21 History amoxicillin 500 mg capsule 500 mg PO BID 06/28/21 10/20/21 10/20/21 History Florajen Acidophilus 20,000 mmu cells PO QPM 07/12/21 10/20/21 10/20/21 History Lantus Solostar U-100 Insulin See Rx Instructions .ROUTE .COMPLEX 07/12/21 10/20/21 10/20/21 History PNV cmb#95-ferrous fumarate-FA 1 tab PO DAILY@06 07/12/21 10/20/21 10/20/21 History [ Multivitamins] warfarin 7.5 mg PO DAILY #45 tab 07/15/21 10/20/21 10/20/21 Rx leflunomide 10 mg tablet 10 mg PO DAILY #30 tab 09/09/21 10/20/21 10/20/21 Rx prednisone 5 mg tablet 7.5 mg PO QAM #45 tab 09/27/21 10/20/21 10/20/21 Rx lisinopril 1 tab PO QAM 10/14/21 10/20/21 10/20/21 History amoxicillin-pot clavulanate 1 tab PO BID #14 tab 11/05/21 Unknown Rx [Augmentin] Allergies Allergy/AdvReac Type Severity Reaction Status Date / Time ceftriaxone [From Rocephin] Allergy Intermediate ALGY-Difficulty Verified 11/06/21 02:35 Breathing levofloxacin [From Levaquin] Allergy Mild ADR-Itching Verified 11/06/21 02:35 iodine Allergy Unknown Unknown Verified 11/06/21 02:35 clopidogrel [From Plavix] AdvReac Intermediate Unknown Verified 11/06/21 02:35 PFSH Acute PFSH: Medical History Aortic stenosis Had TAVR replacement 2017. 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 that looks to have ended early 02/2021 Essential hypertension Gout Hx of [place] spotted fever Ischemic cardiomyopathy Left ventricular hypertrophy Obesity AJAY (obstructive sleep apnea) Pulmonary HTN Recurrent UTI Multidrug-resistant organisms Renal calculi Rheumatoid arthritis Thalassemia Surgical History H/O lithotripsy S/P TAVR (transcatheter aortic valve replacement) (~2018) Family History Mother Stroke Father Myocardial infarction Other CAD (coronary artery disease) Chronic kidney disease (CKD) Diabetes Hypertension Social History Smoking and tobacco status: former smoker Quit status (tobacco): has quit using tobacco Year quit tobacco: 2019 - Chewing Tobacco Former quit date comment: Hx of 1/2 can x 50 Years Second hand smoke exposure: No Smoking risk assessment/counseling performed?: No Alcohol intake: former Lives independently: No Household members: spouse Marital status: Current occupational status: retired and disabled History of recent travel: No Current gender identity: Male Vitals/I&O/Wt Last Vital Signs Temp 97.8 F 11/06/21 02:24 Pulse 88 11/06/21 06:56 Resp 28 H 11/06/21 06:56 BP 100/66 11/06/21 06:56 Pulse Ox 92 11/06/21 06:56 11/05/21 11/06/21 11/06/21 22:59 06:59 14:59 Intake Total 500 / 500 Balance 500 / 500 Weight last 48 hrs Weight 127.006 kg Physical Exam Narrative: EXAM NARRATIVE: General: No acute distress, AO x3 HEENT: PERRLA, pupils bilaterally equal and reactive, pallors not present Chest: Normal vesicular breath sounds, no added sounds, equal good air entry bilaterally CVS: S1-S2 regular, no murmurs, no tachycardia, no gallops, no rubs Abdomen: Distended obese abdomen Neuro: No focal deficits, no facial deformity, AO x3, power 5/5 in all limbs Extremities: No gross edema, left knee appears to be more swollen than the right, however no signs of cellulitis redness erythema or warmth. Data : 11/06/21 03:45 11/06/21 03:45 Micro: Microbiology 11/06/21 04:20 Blood Culture - Preliminary Blood SPECIMEN COLLECTED 11/06/21 03:45 Blood Culture - Preliminary Blood SPECIMEN COLLECTED A&P Assessment and plan (1) Cystitis: Status: Acute (2) Recurrent UTI: Status: Acute Additional A&P Information Presenting with generalized weakness, mild encephalopathy yesterday which appears to have corrected, recurrent history of chronic cystitis and recurrent UTIs with ESBL organisms. UA positive today. Given patient's antecedent history, recurrent UTIs and pyelonephritis, suspect his current presentation may be related to repeat UTI. Start empiric antibiotic treatment with imipenem Joe while awaiting urine cultures. Unfortunately no good p.o. option for discharge at this time. Additional susceptibility requested to be sent to [employer] lab for p.o. fosfomycin which may be a potential treatment option for subsequent episodes and/or consideration for chronic suppression once patient is discharged from the current admission. Unlikely that results will return during this current admission. Blood pressure currently improved Continue amoxicillin 500mg BID for chronic suppression of endocarditis, uncertain organism at this time. Continue home medications incl carvedilol, ASA, statins, bymex, cardizem, ISS. Resume steroids Prednisone 10mg po daily. No contraindication to resume at this point. Attestations Medical Necessity Statement*: Anticipate >2 midnight admission for treatment of UTI, generalized weakness, lack of po options for treatment of multiple ESBL bacteria. Coding Level of Care Code Acute Decorator Consultant for [facility] Diagnoses Cystitis N30.90 Recurrent UTI N39.0
[2021-11-06] MEDS: predniSONE 10 mg Tablet PO (09:00)
--- NOTE | 2021-11-06 09:16 | PC.NURSE ---
Resting with lights off keeping pt informed
[2021-11-06] MEDS: citalopram 20 mg Tablet 10 MG PO (10:03)
[2021-11-06] MEDS: amoxicillin 500 mg Capsule PO ×2 (10:03→18:36)
[2021-11-06] MEDS: carvedilol 6.25 mg Tablet 9.375 MG PO ×2 (10:09→21:37)
[2021-11-06 10:44] LABS: Troponin 5 6HR 27.14 ng/L (0-15)
[2021-11-06 10:45] LABS: Troponin 5 6HR Delta -2.86 ng/L (0-12)
[2021-11-06 11:44] LABS: Iron 22 ug/dL (59-158); Percent Saturation 9.4 % (20-50); Total Iron Binding Capacity 232 mcg/dl; Unsaturated Iron Binding 210 ug/dL (112-347)
[2021-11-06 11:45] LABS: Estmated Average Glucose 174; Hemoglobin A1C 7.7 % (4.0-6.0)
[2021-11-06 12:00] VITALS: BP 127/78; PULSE 79; RESP 16; O2SAT 96
[2021-11-06 12:31] LABS: Glucose Point of Care 207 mg/dL (70-110)
[2021-11-06] MEDS: insulin lispro 100 unit/1 mL SUBCUT ×2 (12:55→21:40)
--- NOTE | 2021-11-06 13:05 | PC.NURSE ---
PATIENT TRANSFERRED TO HOSPITAL BED FROM ER [facility] CLOTHING WAS SATURATED - PT CLEANED AND CHANGED TO HOSPITAL GOWN PT GIVEN URINAL AND HOOKED BACK UP TO ER MONITORS. CALL LIGHT GIVEN TO PATIENT WITH INSTRUCTIONS TO CALL IF NEEDED TO GET UP OR REPOSITION
[2021-11-06 14:00] VITALS: PULSE 90
[2021-11-06] MEDS: atorvastatin 40 mg Tablet PO (18:36)
--- NOTE | 2021-11-06 19:13 | PC.NURSE ---
Report to Cortney PATRICIA at this time.
[2021-11-06 20:00] VITALS: BP 148/82; PULSE 79; RESP 17; TEMP 36.5; O2SAT 100
[2021-11-07] VITALS: BP 134/45; PULSE 101; RESP 16; TEMP 36.3; O2SAT 95
[2021-11-07 03:07] LABS: Basophils # 0.1 10^3/uL (0.0-0.1); Basophils % 0.8 %; Eosinophils # 0.1 10^3/uL (0.0-0.8); Eosinophils % 2.1 %; Hematocrit 34.3 % (42.0-52.0); Hemoglobin 10.3 g/dL (11.7-16.6); Lymphocytes # 1.4 10^3/uL (0.8-4.8); Lymphocytes % 21.5 %; Mean Corpuscular Hemoglobin 18.3 pg (28.0-34.0); Mean Corpuscular Volume 60.8 fl (80-94); Monocytes # 0.7 10^3/uL (0.2-0.9); Monocytes % 11.1 %; Neutrophils # 4.24 10^3/uL (1.8-7.7); Neutrophils % 64.3 %; Nucleated Red Blood Cells % 0 %; Platelet Count 168 10^3/cmm (130-400); Red Blood Count 5.64 10^6/uL (4.1-5.3); Red Cell Distribution Width 19.5 % (12.1-15.1); White Blood Count 6.6 10^3/uL (4.0-10.0)
[2021-11-07 03:24] LABS: INR 2.68 (0.8-1.2)
[2021-11-07 03:38] LABS: Alanine Aminotransferase 15 U/L (0-41); Alkaline Phosphatase 51 IU/L (40-130); Anion Gap 16.5 (5-19); Aspartate Amino Transferase 13 U/L (0-40); Blood Urea Nitrogen 28 mg/dL (8-23); Calcium 8.5 mg/dL (8.5-10.5); Carbon Dioxide 21 mmol/L (22-29); Chloride 106 mmol/L (98-107); Globulin 2.3 g/dL (1.3-4.6); Glomerular Filtration Rate 83.9 mL/min (90-130); Glucose 254 mg/dL (65-115); Osmolality Calculated 302 mOsm/kg (285-295); Potassium 4.5 mmol/L (3.5-5.1); Sodium 139 mmol/L (136-145); Total Bilirubin 0.4 mg/dL (0.15-1.2); Total Protein 5.3 g/dL (6.6-8.7)
[2021-11-07 04:00] VITALS: BP 138/66; PULSE 70; RESP 16; TEMP 36.6; O2SAT 93
[2021-11-07] MEDS: tamsulosin 0.4 mg Capsule PO (06:46)
[2021-11-07] MEDS: aspirin 81 mg EC Tablet PO (06:46)
[2021-11-07] MEDS: pantoprazole DR 40 mg Tablet PO (06:46)
[2021-11-07] MEDS: bumetanide 1 mg Tablet 2 MG PO (06:46)
[2021-11-07] MEDS: dilTIAZem ER (24HR) 120 mg Capsule PO (06:47)
[2021-11-07 07:15] LABS: Glucose Point of Care 290 mg/dL (70-110)
[2021-11-07 07:15] LABS: Glucose Point of Care 252 mg/dL (70-110)
[2021-11-07 07:45] VITALS: BP 148/75; PULSE 101; RESP 18; TEMP 36.7; O2SAT 95
[2021-11-07] MEDS: insulin lispro 100 unit/1 mL SUBCUT ×4 (09:11→21:17)
[2021-11-07] MEDS: citalopram 20 mg Tablet 10 MG PO (09:11)
[2021-11-07] MEDS: predniSONE 10 mg Tablet PO (09:11)
[2021-11-07] MEDS: carvedilol 6.25 mg Tablet 9.375 MG PO ×2 (09:13→19:26)
[2021-11-07] MEDS: amoxicillin 500 mg Capsule PO ×2 (09:55→17:41)
[2021-11-07 12:00] VITALS: BP 130/60; PULSE 100; RESP 18; TEMP 36.7; O2SAT 95
[2021-11-07 12:39] LABS: Glucose Point of Care 215 mg/dL (70-110)
[2021-11-07] MEDS: lisinopril 2.5 mg Tablet PO (12:42)
--- NOTE | 2021-11-07 15:11 | PM.PN ---
Subjective Subjective: Interval history: No acute events overnight. Denies any nausea, vomiting, headache on examination today. Laying in bed sleeping on examination. Wakes up to physical touch. Denies any further dysuria. Vitals/I&O/Wt Last Vital Signs Temp 98.1 F 11/07/21 07:45 Pulse 101 H 11/07/21 07:45 Resp 18 11/07/21 07:45 BP 148/75 11/07/21 07:45 Pulse Ox 95 11/07/21 07:45 11/07/21 11/07/21 11/07/21 06:59 14:59 22:59 Intake Total 100 / 640 340 / 340 Output Total 400 / 400 400 / 400 Balance -300 / 240 -60 / -60 Weight last 48 hrs Weight 127.006 kg Physical Exam Narrative: EXAM NARRATIVE: General: No acute distress, AO x3 HEENT: PERRLA, pupils bilaterally equal and reactive, pallors not present Chest: Normal vesicular breath sounds, no added sounds, equal good air entry bilaterally CVS: S1-S2 regular, no murmurs, no tachycardia, no gallops, no rubs Abdomen: Distended obese abdomen Neuro: No focal deficits, no facial deformity, AO x3, power 5/5 in all limbs Extremities: No gross edema, left knee appears to be more swollen than the right, however no signs of cellulitis redness erythema or warmth. Data : 11/07/21 02:00 11/07/21 02:00 Micro: Microbiology 11/06/21 12:20 MRSA Culture - Final Nose 11/06/21 03:28 Urine Culture - Preliminary Urine,Clean Catch 11/06/21 04:20 Blood Culture - Preliminary Blood NEGATIVE TO DATE 11/06/21 03:45 Blood Culture - Preliminary Blood NEGATIVE TO DATE A&P Assessment and plan (1) Cystitis: Status: Acute (2) Recurrent UTI: Status: Acute Additional A&P Information Generalized weakness: History of recurrent UTIs with ESBL Klebsiella. UA concerning for UTI. Continue with imipenem. On admission had requested lab for further sensitivities with p.o. fosfomycin for potential further treatment as an outpatient for chronic suppression once patient is discharged. Most likely patient will need at least 5-day course of antibiotics. Day 2 today. PT/OT evaluation. Continue with amoxicillin 500 mg twice daily for chronic suppression of endocarditis. Continue other chronic oral medication including carvedilol, aspirin, statin, Bumex, Cardizem, prednisone 10 mg oral daily. Continue home dose of Lantus. Insulin sliding scale. Continue home dose of warfarin. Check INR daily given concurrent use of antibiotics for now. Full code. Cardiac carb consistent diet. Warfarin have a DVT prophylaxis. Attestations Medical Necessity Statement*: Requires further hospitalization for management of generalized weakness in setting of UTI while COVID-19 is ruled out. Time Spent in Patient Care: Greater than 35 minutes (>than 50% of time spent in counselling and/or direct pt care on unit). Coding Level of Care Code Acute Hat [employer]im [employer] Laminating Operator for Chg Fwd Diagnoses Cystitis N30.90 Recurrent UTI N39.0
[2021-11-07 16:20] VITALS: BP 115/73; PULSE 89; RESP 13; O2SAT 96
[2021-11-07 17:30] LABS: Glucose Point of Care 315 mg/dL (70-110)
[2021-11-07] MEDS: atorvastatin 40 mg Tablet PO (17:41)
[2021-11-07] MEDS: ferrous gluconate 324 mg Tablet PO (17:41)
--- NOTE | 2021-11-07 19:02 | PC.NURSE ---
Report to Sandhya KAPOOR at this time.
[2021-11-07 20:00] VITALS: BP 124/81; PULSE 90; RESP 17; TEMP 36.6; O2SAT 97
[2021-11-07 20:59] LABS: Glucose Point of Care 250 mg/dL (70-110)
[2021-11-07] MEDS: insulin glargine 100 units/1 mL 30 UNIT SUBCUT (21:17)
[2021-11-08] VITALS: BP 131/69; PULSE 70; RESP 16; TEMP 36.8; O2SAT 93
[2021-11-08 03:15] LABS: Basophils # 0.1 10^3/uL (0.0-0.1); Basophils % 0.6 %; Eosinophils # 0.3 10^3/uL (0.0-0.8); Eosinophils % 3.5 %; Hematocrit 33.8 % (42.0-52.0); Hemoglobin 10.3 g/dL (11.7-16.6); Lymphocytes # 1.9 10^3/uL (0.8-4.8); Lymphocytes % 24.2 %; Mean Corpuscular HGB Conc 30.5 g/dL (30.0-36.0); Mean Corpuscular Hemoglobin 18.3 pg (28.0-34.0); Monocytes # 0.8 10^3/uL (0.2-0.9); Monocytes % 10.3 %; Neutrophils # 4.75 10^3/uL (1.8-7.7); Neutrophils % 61.1 %; Nucleated Red Blood Cells % 0 %; Platelet Count 175 10^3/cmm (130-400); Red Blood Count 5.63 10^6/uL (4.1-5.3); Red Cell Distribution Width 19.2 % (12.1-15.1); White Blood Count 7.8 10^3/uL (4.0-10.0)
[2021-11-08 03:39] LABS: Alanine Aminotransferase 14 U/L (0-41); Alkaline Phosphatase 56 IU/L (40-130); Anion Gap 16.8 (5-19); Aspartate Amino Transferase 15 U/L (0-40); Blood Urea Nitrogen 33 mg/dL (8-23); Calcium 8.5 mg/dL (8.5-10.5); Carbon Dioxide 23 mmol/L (22-29); Chloride 103 mmol/L (98-107); Globulin 2.6 g/dL (1.3-4.6); Glomerular Filtration Rate 66.6 mL/min (90-130); Glucose 215 mg/dL (65-115); Osmolality Calculated 302 mOsm/kg (285-295); Potassium 3.8 mmol/L (3.5-5.1); Sodium 139 mmol/L (136-145); Total Bilirubin 0.4 mg/dL (0.15-1.2); Total Protein 5.6 g/dL (6.6-8.7)
[2021-11-08 04:00] VITALS: BP 121/66; PULSE 77; RESP 16; TEMP 36.8; O2SAT 96
[2021-11-08 04:17] LABS: Quest SARS-CoV-2 RNA NOT DETECTED (NOT DETECTED)
[2021-11-08] MEDS: pantoprazole DR 40 mg Tablet PO (05:45)
[2021-11-08] MEDS: bumetanide 1 mg Tablet 2 MG PO (05:45)
[2021-11-08] MEDS: dilTIAZem ER (24HR) 120 mg Capsule PO (05:46)
[2021-11-08] MEDS: tamsulosin 0.4 mg Capsule PO (05:46)
[2021-11-08] MEDS: aspirin 81 mg EC Tablet PO (05:46)
[2021-11-08 06:44] LABS: Glucose Point of Care 244 mg/dL (70-110)
[2021-11-08 07:33] VITALS: BP 120/85; PULSE 81; RESP 16; TEMP 36.3; O2SAT 97
[2021-11-08] MEDS: carvedilol 6.25 mg Tablet 9.375 MG PO (08:55)
[2021-11-08] MEDS: citalopram 20 mg Tablet 10 MG PO (08:56)
[2021-11-08] MEDS: lisinopril 2.5 mg Tablet PO (08:56)
[2021-11-08] MEDS: predniSONE 10 mg Tablet PO (08:56)
[2021-11-08] MEDS: amoxicillin 500 mg Capsule PO (08:58)
[2021-11-08] MEDS: ferrous gluconate 324 mg Tablet PO (08:58)
[2021-11-08] MEDS: insulin glargine 100 units/1 mL 40 UNIT SUBCUT (09:03)
[2021-11-08] MEDS: insulin lispro 100 unit/1 mL SUBCUT ×2 (09:03→13:05)
--- NOTE | 2021-11-08 10:04 | PM.DCS ---
Discharge Providers Date of Admission: 11/06/21 05:35 Date of Discharge: November 08, 2021 Attending Provider at Admission: Anjana Downing MD Attending Provider at Discharge: Elian Buitrago Primary Care Provider: Faustina Gonzalez NP Diagnoses at Discharge Discharge Diagnosis (1) Cystitis: Status: Acute (2) Recurrent UTI: Status: Acute Permanent problem details: Multidrug-resistant organisms Reason for Visit Reason for Visit: WEAKNESS Hospital Course Hospital Course Pleasant 66-year-old gentleman with history of recurrent urinary tract infections with ESBL organism, status post TAVR, history of endocarditis, on chronic oral suppression with Augmentin, following up with ID specialist in [facility], on leflunomide, prednisone, following with rheumatology, A. fib, CHF, DM, HTN, AJAY declines were CPAP, other pulmonary disorders hospitalized for assessment and management due to generalized weakness, difficulties to walk to the restroom, with recurrence of dysuria. With findings suggestive of urinary tract infection, started on Primaxin he has no history of resistant infection in the past. Urine culture Klebsiella pneumonia ESBL. COVID-19 PCR assessed and was negative. P.o. fosfomycin susceptibilities were requested as well as potential treatment option for subsequent episodes and/or consideration of chronic suppression after discharge. He is asked to follow-up with his infectious disease specialist in clinic. He is resumed on prednisone. He is encouraged to continue with home exercise program as per PT evaluation. Physical Exam Const: COMMON NORMALS: no acute distress, patient oriented x3 and alert NUTRITIONAL APPEARANCE: obese ORIENTATION/CONSCIOUSNESS: Yes awake HENMT: COMMON NORMALS: oropharynx normal Neck/C-Spine: COMMON NORMALS: no JVD Resp: COMMON NORMALS: normal respiratory effort and clear to auscultation bilaterally AUSCULTATION: clear to auscultation bilaterally Cardio: COMMON NORMALS: no JVD, regular rhythm, S1 normal heart sound present, S2 normal heart sound present and No murmurs present (Cardio) RHYTHM: regular rhythm HEART SOUNDS: S1 normal heart sound present and S2 normal heart sound present GI: COMMON NORMALS: Normal to inspection, nondistended, normoactive bowel sounds present, Soft to palpation and non-tender PALPATION: Yes Soft to palpation Extremity: COMMON NORMALS: no joint enlargement and no pedal edema Neuro: COMMON NORMALS: patient oriented x3 and moves all extremities SENSORIUM/ORIENTATION: Yes alert Skin: COMMON NORMALS: no rashes or lesions noted GENERAL SKIN EXAM: no rashes or lesions noted Discharge Data Data Completed and Pending: Completed Studies During Hospitalization Category Date Time Status XR chest 1V olga lidia ble [id number] Urgent Exams 11/06/21 03:00 Completed Pending at discharge Category Date Time Status Blood Culture Sta t Lab 11/06/21 04:20 Results Miscellaneous Estee t Routine Lab 11/06/21 03:28 Received Labs from last 24 hours 11/08/21 11/08/21 11/08/21 06:25 02:27 02:27 WBC 7.8 RBC 5.63 H Hgb 10.3 L Hct 33.8 L MCV 60.0 L MCH 18.3 L MCHC 30.5 RDW 19.2 H Plt Count 175 MPV Not Reportable Neut % (Auto) 61.1 Lymph % (Auto) 24.2 Glades % (Auto) 10.3 Eos % (Auto) 3.5 Baso % (Auto) 0.6 Neut # (Auto) 4.75 Lymph # (Auto) 1.9 Glades # (Auto) 0.8 Eos # (Auto) 0.3 Baso # (Auto) 0.1 Nucleated RBC % (a uto) 0 Nucleated RBCs # 0.0 Sodium 139 Potassium 3.8 Chloride 103 Carbon Dioxide 23 Anion Gap 16.8 BUN 33 H Creatinine 1.1 GFR Calculation 66.6 L Glucose 215 H POC Glucose 244 H Calculated Osmolal ity 302 H Calcium 8.5 Total Bilirubin 0.4 AST 15 ALT 14 Alkaline Phosphata se 56 Total Protein 5.6 L Albumin 3.0 L Globulin 2.6 SARS-CoV-2 RNA (RT -PCR) 11/07/21 11/07/21 11/07/21 20:34 16:47 12:35 WBC RBC Hgb Hct MCV MCH MCHC RDW Plt Count MPV Neut % (Auto) Lymph % (Auto) Glades % (Auto) Eos % (Auto) Baso % (Auto) Neut # (Auto) Lymph # (Auto) Glades # (Auto) Eos # (Auto) Baso # (Auto) Nucleated RBC % (a uto) Nucleated RBCs # Sodium Potassium Chloride Carbon Dioxide Anion Gap BUN Creatinine GFR Calculation Glucose POC Glucose 250 H 315 H 215 H Calculated Osmolal ity Calcium Total Bilirubin AST ALT Alkaline Phosphata se Total Protein Albumin Globulin SARS-CoV-2 RNA (RT -PCR) 11/06/21 12:20 WBC RBC Hgb Hct MCV MCH MCHC RDW Plt Count MPV Neut % (Auto) Lymph % (Auto) Glades % (Auto) Eos % (Auto) Baso % (Auto) Neut # (Auto) Lymph # (Auto) Glades # (Auto) Eos # (Auto) Baso # (Auto) Nucleated RBC % (a uto) Nucleated RBCs # Sodium Potassium Chloride Carbon Dioxide Anion Gap BUN Creatinine GFR Calculation Glucose POC Glucose Calculated Osmolal ity Calcium Total Bilirubin AST ALT Alkaline Phosphata se Total Protein Albumin Globulin SARS-CoV-2 RNA (RT -PCR) Not detected Vitals: Last Vital Signs Temp 97.4 F L 11/08/21 07:33 Pulse 81 11/08/21 07:33 Resp 16 11/08/21 07:33 BP 120/85 11/08/21 07:33 Pulse Ox 97 11/08/21 07:33 Discharge Plan Discharge Patient Disposition: Home Condition: Serious Prescriptions: New ertapenem 1 gram recon soln 1 g IV DAILY 2 Days Qty: 2 RF: 0 prednisone 5 mg tablet 7.5 mg PO DAILY Qty: 120 RF: 0 Continued tamsulosin 0.4 mg capsule 0.4 mg PO DAILY@06 RF: 0 citalopram [Celexa] 10 mg tablet 10 mg PO QAM RF: 0 nitroglycerin [Nitrostat] 0.4 mg tablet, sublingual 0.4 mg SUBLINGUAL Q5M PRN (Reason: Chest Pain) RF: 0 carvedilol 6.25 mg tablet 9.375 mg PO BID RF: 0 bumetanide 2 mg tablet 2 mg PO QAM RF: 0 ascorbic acid (vitamin C) 1,000 mg tablet 1 g PO BID RF: 0 methenamine hippurate 1 gram tablet 1 g PO BID Qty: 180 RF: 3 Hold Instructions: Resume on 10/23/21. amoxicillin 500 mg capsule 500 mg PO BID RF: 0 Hold Instructions: Resume on 10/23/21. leflunomide 10 mg tablet 10 mg PO DAILY Qty: 30 RF: 3 Hold Instructions: Resume on 10/23/21. potassium chloride 20 mEq Tablet Extended Release 20 meq PO BID RF: 0 pantoprazole [Protonix] 40 mg Tablet,Delayed Release (Dr/Ec) 40 mg PO DAILY@06 RF: 0 aspirin 81 mg Tablet,Delayed Release (Dr/Ec) 81 mg PO DAILY@06 RF: 0 Lantus Solostar U-100 Insulin 100 unit/mL (3 mL) insulin pen See Rx Instructions .ROUTE .COMPLEX RF: 0 Florajen Acidophilus 20 billion cell Capsule 20,000 mmu cells PO QPM RF: 0 PNV cmb#95-ferrous fumarate-FA [ Multivitamins] 28 mg iron- 800 mcg Tablet 1 tab PO DAILY@06 RF: 0 warfarin 5 mg tablet 7.5 mg PO DAILY Qty: 45 RF: 0 amoxicillin-pot clavulanate [Augmentin] 875-125 mg tablet 1 tab PO BID Qty: 14 RF: 0 atorvastatin 40 mg tablet 40 mg PO DAILY@19 RF: 0 diltiazem HCl 120 mg capsule,extended release 24hr 120 mg PO DAILY@06 RF: 0 hydroxyzine pamoate 25 mg capsule 25 mg PO BID PRN (Reason: Anxiety) RF: 0 lisinopril 2.5 mg Tablet 2.5 mg PO DAILY Qty: 0 RF: 0 Discharge Orders: Discharge Order (Routine); Ordered 11/08/21 Ordered By: Elian Buitrago Referrals: Faustina Gonzalez NP [Primary Care Provider] - 4-7 days Discharge Diet: Usual diet Discharge Activity: Increase activity as tolerated and As per PT/OT instructions Patient Instructions: Ertapenem (By injection) (INVanz), Extended Spectrum Beta Lactamase (GEN) Activity Restrictions/Additional Instructions: Please complete 2 more days of IV antibiotic infusions at infusion center. Please follow-up with your infectious disease specialist at soonest available appointment with regards to recurrent ESBL organism urinary tract infections. Discharge Attestations Time Spent in Discharge Care*: less than 30 min Status at Discharge: Cognitive status at discharge: cognitively intact, Behavioral status at discharge: cooperative, Quality Metrics Clinical Quality Measures During this hospital stay, did patient experience: None Coding Level of Care Code Acute Chg FW DC note Diagnoses Cystitis N30.90 Recurrent UTI N39.0
[2021-11-08] MEDS: ertapenem 1,000 MG in sodium chloride 0.9% (plus) 100 ML 200 MG IV (10:13)
[2021-11-08 11:33] VITALS: BP 127/72; PULSE 87; RESP 17; TEMP 36.5; O2SAT 92
[2021-11-08 12:07] LABS: Glucose Point of Care 210 mg/dL (70-110)
[2021-11-08 15:39] VITALS: BP 127/72; PULSE 87; RESP 17; TEMP 36.5; O2SAT 92
--- NOTE | 2021-11-08 15:41 | PC.NURSE ---
Patient Discharge Patient discharged home with spouse via wheelchair to personal vehicle by nurse. Patient education provided and follow-up/infusion appointments reviewed with spouse.
== END 2021-11-08 03:42 | disposition home health service (06) | DRG 690 ==
LOC: ER 05:38 → ER IP 05:43 → MEDSURG 16:07
PROVIDERS: Student in an Organized Health Care Education/Training Program; Admitting Provider Student in an Organized Health Care Education/Training Program; Emergency Provider Emergency Medicine; PCP Nurse Practitioner Family; Visit Provider Internal Medicine
DX: N30.90 Cystitis, unspecified without hematuria (principal); I48.20 Chronic atrial fibrillation, unspecified; I50.22 Chronic systolic (congestive) heart failure; I38 Endocarditis, valve unspecified; Z87.01 Personal history of pneumonia (recurrent); Z87.440 Personal history of urinary (tract) infections; Z95.2 Presence of prosthetic heart valve; I11.0 Hypertensive heart disease with heart failure; Z79.52 Long term (current) use of systemic steroids; Z86.73 Personal history of transient ischemic attack (TIA), and cerebral infarction without residual deficits; E11.9 Type 2 diabetes mellitus without complications; E78.5 Hyperlipidemia, unspecified; M10.9 Gout, unspecified; I25.5 Ischemic cardiomyopathy; E66.9 Obesity, unspecified; Z68.39 Body mass index [BMI] 39.0-39.9, adult; G47.33 Obstructive sleep apnea (adult) (pediatric); I27.20 Pulmonary hypertension, unspecified; Z87.442 Personal history of urinary calculi; M06.9 Rheumatoid arthritis, unspecified; D56.9 Thalassemia, unspecified; Z79.01 Long term (current) use of anticoagulants; Z79.4 Long term (current) use of insulin; Z79.82 Long term (current) use of aspirin; B96.1 Klebsiella pneumoniae [K. pneumoniae] as the cause of diseases classified elsewhere; Z91.19 Patient's noncompliance with other medical treatment and regimen; Z79.2 Long term (current) use of antibiotics; I95.9 Hypotension, unspecified; Z87.891 Personal history of nicotine dependence
CPT/HCPCS: 36415; 36416; 70450; 71045; 80053; 81001; 82550; 82962; 83036; 83540; 83550; 83605; 83880; 84145; 84484; 85025; 85610; 86140; 87040; 87077; 87086; 87186; 87635; 87641; 93005; 96360; 96365; 96372; 97110; 97116; 97162; 99284; 99285; J0743; J1335; J1815 ×2; J7040; J7512

== ENCOUNTER → 2021-11-09 11:03 | Day surgery (SDC) | payer MEDICARE, OTHER, SELFPAY ==
[2021-11-09 11:31] VITALS: BP 114/79; PULSE 79; RESP 16; TEMP 36.2; O2SAT 93; BMI 35.5
[2021-11-09] MEDS: ertapenem 1,000 MG in sodium chloride 0.9% (plus) 100 ML 200 MG IV (11:38)
== END ==
PROVIDERS: PCP Nurse Practitioner Family; Visit Provider Internal Medicine
DX: N30.90 Cystitis, unspecified without hematuria (principal)
CPT/HCPCS: 96365; J1335

== ENCOUNTER 2021-11-10 11:12 | Outpatient (RCR) | payer MEDICARE, OTHER, SELFPAY ==
[2021-10-20 11:20] VITALS: BP 110/60; PULSE 82; RESP 18; TEMP 36.1; O2SAT 97; BMI 35.5
[2021-10-20] MEDS: ertapenem 1,000 MG in sodium chloride 0.9% (plus) 100 ML 200 MG IV (11:32)
[2021-10-21 08:50] VITALS: BP 104/67; PULSE 85; RESP 18; TEMP 36.5; O2SAT 98
[2021-10-21] MEDS: ertapenem 1,000 MG in sodium chloride 0.9% (plus) 100 ML 200 MG IV (08:57)
[2021-10-22 09:04] VITALS: BP 128/61; PULSE 80; RESP 18; TEMP 36.4; O2SAT 99
[2021-10-22] MEDS: ertapenem 1,000 MG in sodium chloride 0.9% (plus) 100 ML 200 MG IV (09:05)
== END 2021-11-19 23:59 | disposition home or self-care (01) ==
LOC: GILAB 11:12
PROVIDERS: PCP Nurse Practitioner Family; Visit Provider Internal Medicine
DX: N30.90 Cystitis, unspecified without hematuria (principal)
CPT/HCPCS: 96365; J1335

== ENCOUNTER → 2021-11-10 11:20 | Day surgery (SDC) | payer MEDICARE, OTHER, SELFPAY ==
[2021-11-10 11:25] VITALS: BP 98/51; PULSE 78; RESP 18; TEMP 36.8; O2SAT 97
[2021-11-10] MEDS: ertapenem 1,000 MG in sodium chloride 0.9% (plus) 100 ML 200 MG IV (11:34)
== END ==
PROVIDERS: PCP Nurse Practitioner Family; Visit Provider Internal Medicine
DX: N30.90 Cystitis, unspecified without hematuria (principal)
CPT/HCPCS: 96365; J1335

== ENCOUNTER 2021-11-12 20:54 | Emergency (ER) | payer MEDICARE, OTHER, SELFPAY ==
[2021-11-12 21:00] VITALS: BP 127/77; PULSE 78; RESP 16; TEMP 36.6; O2SAT 96
--- NOTE | 2021-11-12 21:12 | XRR_ITS ---
PROCEDURE INFORMATION: Exam: XR Chest Exam date and time: 11/12/2021 9:12 PM Age: 66 years old Clinical indication: Shortness of breath; Prior surgery; Surgery type: Tavr; Patient HX: C/O worsening SOB. History of chf. ; Additional info: Volume overload TECHNIQUE: Imaging protocol: XR of the chest. Views: 1 view. COMPARISON: CR (CHEST, ) 11/06/2021 3:29 AM FINDINGS: Lungs: Mildly prominent central pulmonary vessels. No focal airspace consolidation. Mildly reduced lung volumes. Pleural spaces: Unremarkable. No pleural effusion. No pneumothorax. Heart/Mediastinum: Moderate cardiomegaly. TAVR is present. Bones/joints: Unremarkable. XR/XR chest 1V portable [id number] IMPRESSION: Mild pulmonary vascular congestion.
--- NOTE | 2021-11-12 21:12 | ED_ITS ---
Documented by User: Deion Thompson MD 11/19/21 22:53 HPI - SOB/Dyspnea General: Chief Complaint: Shortness of Breath/Dyspnea Stated Complaint: possible Fluid on him Time Seen by Provider: 11/12/21 21:12 History of Present Illness: HPI Narrative: Mr. Loyd is a 66-year-old gentleman with complex past medical history including hypertension, hyperlipidemia, diabetes, congestive heart failure, s/p TAVR, atrial fibrillation on anticoagulation who presents emerged department due to shortness of breath. He is concerned about volume overload. He was recently hospitalized for urinary tract infection and had felt improved on discharge however has noted gradual onset of worsening shortness of breath worse with exertion and leg swelling. He has been compliant with his medications including diuresis however continues to worsen. He denies infectious symptoms. Intensity is moderate. No other specific changes in health, exacerbating, relieving factors identified. Review of Systems General: Reports: 10 or more systems reviewed and unremarkable except in HPI and below PFSH ED 2 PFSH: Medical History Aortic stenosis Had TAVR replacement 2017. 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 that looks to have ended early 02/2021 Essential hypertension Gout Hx of [place] spotted fever Ischemic cardiomyopathy Left ventricular hypertrophy Obesity AJAY (obstructive sleep apnea) Pulmonary HTN Recurrent UTI Multidrug-resistant organisms Renal calculi Rheumatoid arthritis Thalassemia Surgical History H/O lithotripsy S/P TAVR (transcatheter aortic valve replacement) (~2017) Family History Mother Stroke Father Myocardial infarction Other CAD (coronary artery disease) Chronic kidney disease (CKD) Diabetes Hypertension Social History Smoking and tobacco status: former smoker Quit status (tobacco): has quit using tobacco Year quit tobacco: 2019 - Chewing Tobacco Former quit date comment: Hx of 1/2 can x 50 Years Second hand smoke exposure: No Smoking risk assessment/counseling performed?: No Alcohol intake: former Lives independently: No Household members: spouse Marital status: Current occupational status: retired and disabled History of recent travel: No Current gender identity: Male Physical Exam Narrative: EXAM NARRATIVE: GENERAL/CONSTITUTIONAL - chronically ill-appearing. Obese Eyes - PERRL, no conjunctival injection ENMT - Atraumatic external nose and ears. Moist mucous membranes NECK - supple. trachea midline CARDIOVASCULAR - regular rate and irregular rhythm. 1-2+ bilateral pitting edema. RESPIRATORY - diminished to auscultation bilaterally, trace crackles at bases ABDOMEN/GI - Nontender. No tenderness to percussion or evidence of peritonitis MSK - Extremities without obvious deformity or tenderness to palpation SKIN - Warm, Dry NEURO - alert and appropriately oriented. Moves all extremities equally. Course ED course: - Patient was seen and evaluated by me at bedside - Patient placed on cardiac monitors, IV access obtained - Initial evaluation notable for mild to moderate evidence of volume overload - Labs notable for no leukocytosis, normal hemoglobin with marked decrease MCV of unclear etiology. Metabolic panel without acute electrolyte derangement, BNP mildly elevated. - Imaging notable for mild pulmonary vascular congestion. - Patient care handed off to overnight ED physician Dr. Thomas pending reassessment after 2-hour troponin. Disposition pending. Vital Signs: Vital signs: Vital Signs Temperature 97.8 F 11/13/21 02:26 Pulse Rate 81 11/13/21 02:26 Respiratory Rate 16 11/13/21 02:26 Blood Pressure 141/74 11/13/21 02:26 Pulse Oximetry 96 11/13/21 02:26 MDM - SOB/Dyspnea Medical Records: Attestation: I reviewed the patient's medical records. Lab Data: Attestation: I reviewed the patient's lab results. Labs: Lab Results 11/12/21 11/12/21 11/12/21 21:58 21:58 21:58 WBC 8.3 10^3/uL 10^3/ uL (4.0-10.0) RBC 6.55 10^6/uL H 10 ^6/uL (4.1-5.3) Hgb 11.8 g/dL g/dL (11.7-16.6) Hct 39.3 % L % (42.0-52.0) MCV 60.0 fl L fl (80-94) MCH 18.0 pg L pg (28.0-34.0) MCHC 30.0 g/dL g/dL (30.0-36.0) RDW 19.6 % H % (12.1-15.1) Plt Count 223 10^3/cmm 10^3 /cmm (130-400) MPV 9.5 fL fL (7.4-10.4) Neut % (Auto) 60.8 % % Lymph % (Auto) 27.0 % % Duc[place]ne % (Auto) 8.3 % % Eos % (Auto) 2.7 % % Baso % (Auto) 0.6 % % Neut # (Auto) 5.04 10^3/uL 10^3 /uL (1.8-7.7) Lymph # (Auto) 2.2 10^3/uL 10^3/ uL (0.8-4.8) [place]ne # (Auto) 0.7 10^3/uL 10^3/ uL (0.2-0.9) Eos # (Auto) 0.2 10^3/uL 10^3/ uL (0.0-0.8) Baso # (Auto) 0.1 10^3/uL 10^3/ uL (0.0-0.1) Nucleated RBC % (a uto) 0 % % Nucleated RBCs # 0.0 /100WBC /100W BC Specimen Type Sample Site ABG pH ABG pCO2 ABG pO2 ABG HCO3 ABG Base Excess Matteo Test Hematocrit O2 Delivery Device Online Activist ID Sodium 140 mmol/L mmol/L (136-145) Potassium 3.9 mmol/L mmol/L (3.5-5.1) Chloride 102 mmol/L mmol/L (98-107) Carbon Dioxide 27 mmol/L mmol/L (22-29) Anion Gap 14.9 (5-19) BUN 31 mg/dL H mg/dL (8-23) Creatinine 1.1 mg/dL mg/dL (0.7-1.2) GFR Calculation 66.6 mL/min L mL/ min (90-130) Glucose 139 mg/dL H mg/dL (65-115) Calculated Osmolal ity 299 mOsm/kg H mOs m/kg (285-295) Calcium 8.5 mg/dL mg/dL (8.5-10.5) Total Bilirubin 0.6 mg/dL mg/dL (0.15-1.2) AST 16 U/L U/L (0-40) ALT 18 U/L U/L (0-41) Alkaline Phosphata se 65 IU/L IU/L (40-130) Troponin T Baselin e 21 ng/L H ng/L (0-15) Troponin T 120 Min yocha dehe Delta Troponin T NT-Pro-B Natriuret Pep 1298 pg/mL H pg/m L (0-125) Total Protein 5.9 g/dL L g/dL (6.6-8.7) Albumin 3.6 g/dL g/dL (3.5-5.2) Globulin 2.3 g/dL g/dL (1.3-4.6) 11/12/21 11/13/21 22:59 00:27 WBC RBC Hgb Hct MCV MCH MCHC RDW Plt Count MPV Neut % (Auto) Lymph % (Auto) [place]ne % (Auto) Eos % (Auto) Baso % (Auto) Neut # (Auto) Lymph # (Auto) Duc[place]ne # (Auto) Eos # (Auto) Baso # (Auto) Nucleated RBC % (a uto) Nucleated RBCs # Specimen Type Arterial Sample Site Radial, right ABG pH 7.49 H (7.35-7.45) ABG pCO2 40.5 mmHg mmHg (35-45) ABG pO2 77.5 mmHg L mmHg (80.0-100.0) ABG HCO3 30.6 mmol/L H mmo l/L (22-26) ABG Base Excess 6.6 mmol/L H mmol /L (-2.0-2.0) Matteo Test Pos Hematocrit 35.1 % L % (42-52) O2 Delivery Device Room air Online Activist ID [id number] Sodium Potassium Chloride Carbon Dioxide Anion Gap BUN Creatinine GFR Calculation Glucose Calculated Osmolal ity Calcium Total Bilirubin AST ALT Alkaline Phosphata se Troponin T Baselin e Troponin T 120 Min yocha dehe 19.90 ng/L H ng/L (0-15) Delta Troponin T -1.10 ABS# L ABS# (0-10) NT-Pro-B Natriuret Pep Total Protein Albumin Globulin EKG Data^: EKG 1: Attestation: I personally reviewed and interpreted this EKG as follows: EKG Interpretation Date: 11/12/21 EKG interpretation time: 21:43 Interpretation: Twelve-lead EKG shows a irregular rhythm at a rate of 92. NE interval not present, QRS duration 86, QTc 428. Left axis deviation. Interpretation: Atrial fibrillation. Discharge Plan Discharge Patient Disposition: Home Clinical Impression: Congestive heart failure Qualifiers: Heart failure type: unspecified Heart failure chronicity: acute on chronic Qualified Code(s): I50.9 - Heart failure, unspecified Condition: Stable Prescriptions: No Action tamsulosin 0.4 mg capsule 0.4 mg PO DAILY@06 RF: 0 citalopram [Celexa] 10 mg tablet 10 mg PO QAM RF: 0 nitroglycerin [Nitrostat] 0.4 mg tablet, sublingual 0.4 mg SUBLINGUAL Q5M PRN (Reason: Chest Pain) RF: 0 carvedilol 6.25 mg tablet 9.375 mg PO BID RF: 0 bumetanide 2 mg tablet 2 mg PO QAM RF: 0 ascorbic acid (vitamin C) 1,000 mg tablet 1 g PO BID RF: 0 methenamine hippurate 1 gram tablet 1 g PO BID Qty: 180 RF: 3 Hold Instructions: Resume on 10/23/21. amoxicillin 500 mg capsule 500 mg PO BID RF: 0 Hold Instructions: Resume on 10/23/21. potassium chloride 20 mEq Tablet Extended Release 20 meq PO BID RF: 0 pantoprazole [Protonix] 40 mg Tablet,Delayed Release (Dr/Ec) 40 mg PO DAILY@06 RF: 0 aspirin 81 mg Tablet,Delayed Release (Dr/Ec) 81 mg PO DAILY@06 RF: 0 Lantus Solostar U-100 Insulin 100 unit/mL (3 mL) insulin pen See Rx Instructions .ROUTE .COMPLEX RF: 0 Florajen Acidophilus 20 billion cell Capsule 20,000 mmu cells PO QPM RF: 0 PNV cmb#95-ferrous fumarate-FA [ Multivitamins] 28 mg iron- 800 mcg Tablet 1 tab PO DAILY@06 RF: 0 warfarin 5 mg tablet 7.5 mg PO DAILY Qty: 45 RF: 0 prednisone 5 mg tablet 7.5 mg PO DAILY Qty: 120 RF: 0 atorvastatin 40 mg tablet 40 mg PO DAILY@19 RF: 0 diltiazem HCl 120 mg capsule,extended release 24hr 120 mg PO DAILY@06 RF: 0 hydroxyzine pamoate 25 mg capsule 25 mg PO BID PRN (Reason: Anxiety) RF: 0 lisinopril 2.5 mg Tablet 2.5 mg PO DAILY Qty: 0 RF: 0 doxycycline hyclate 100 mg capsule 100 mg PO BID 7 Days Qty: 14 RF: 0 Discharge Orders: Discharge ED (Routine); Ordered 11/13/21 Ordered By: Dale Thomas Referrals: Faustina Gonzalez NP [Primary Care Provider] - Patient Instructions: Heart Failure (ED) Activity Restrictions/Additional Instructions: Increase your bumex dosing to 3 times daily for the next 2 days, then back to normal dosing. Return to the emergency room for worsening shortness of breath, chest discomfort, fever, any other concerning symptoms. Coding Level of Care Code ED Spinning Room Worker for Chg Fwd Documented by User: Dale Thomas, 11/13/21 17:24 HPI - SOB/Dyspnea General: Chief Complaint: Shortness of Breath/Dyspnea Stated Complaint: possible Fluid on him Time Seen by Provider: 11/12/21 21:12 COUNTS INCLUDE 234 BEDS AT THE [facility] ED PFSH: Medical History Aortic stenosis Had TAVR replacement 2017. 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 that looks to have ended early 02/2021 Essential hypertension Gout Hx of [place] spotted fever Ischemic cardiomyopathy Left ventricular hypertrophy Obesity AJAY (obstructive sleep apnea) Pulmonary HTN Recurrent UTI Multidrug-resistant organisms Renal calculi Rheumatoid arthritis Thalassemia Surgical History H/O lithotripsy S/P TAVR (transcatheter aortic valve replacement) (~2017) Family History Mother Stroke Father Myocardial infarction Other CAD (coronary artery disease) Chronic kidney disease (CKD) Diabetes Hypertension Social History Smoking and tobacco status: former smoker Quit status (tobacco): has quit using tobacco Year quit tobacco: 2020 - Chewing Tobacco Former quit date comment: Hx of 1/2 can x 50 Years Second hand smoke exposure: No Smoking risk assessment/counseling performed?: No Alcohol intake: former Lives independently: No Household members: spouse Marital status: Current occupational status: retired and disabled History of recent travel: No Current gender identity: Male Course Vital Signs: Vital signs: Vital Signs Temperature 97.8 F 11/13/21 02:26 Pulse Rate 81 11/13/21 02:26 Respiratory Rate 16 11/13/21 02:26 Blood Pressure 141/74 11/13/21 02:26 Pulse Oximetry 96 11/13/21 02:26 MDM - SOB/Dyspnea MDM Narrative: Medical decision making narrative: 66-year-old male checked out to me by the previous physician at shift change. This gentleman has pulmonary vascular congestion on chest x-ray, elevated BNP. His initial Trope was slightly elevated, but did not elevated 2 hours. No significant EKG changes. His creatinine is 1.1. He received 80 mg of Lasix IV, and has had good urinary output in the emergency room. He was counseled on staying for heart failure with shortness of breath, although he is not on oxygen currently and sats are normal. He really wishes to go home, as it is [facility]. He'll be allowed home with increased dose of diuretics for the next 2 days, then back to normal dosing. Lab Data: Labs: Lab Results 11/12/21 11/12/21 11/12/21 21:58 21:58 21:58 WBC 8.3 10^3/uL 10^3/ uL (4.0-10.0) RBC 6.55 10^6/uL H 10 ^6/uL (4.1-5.3) Hgb 11.8 g/dL g/dL (11.7-16.6) Hct 39.3 % L % (42.0-52.0) MCV 60.0 fl L fl (80-94) MCH 18.0 pg L pg (28.0-34.0) MCHC 30.0 g/dL g/dL (30.0-36.0) RDW 19.6 % H % (12.1-15.1) Plt Count 223 10^3/cmm 10^3 /cmm (130-400) MPV 9.5 fL fL (7.4-10.4) Neut % (Auto) 60.8 % % Lymph % (Auto) 27.0 % % Duchesne % (Auto) 8.3 % % Eos % (Auto) 2.7 % % Baso % (Auto) 0.6 % % Neut # (Auto) 5.04 10^3/uL 10^3 /uL (1.8-7.7) Lymph # (Auto) 2.2 10^3/uL 10^3/ uL (0.8-4.8) Duc[place]ne # (Auto) 0.7 10^3/uL 10^3/ uL (0.2-0.9) Eos # (Auto) 0.2 10^3/uL 10^3/ uL (0.0-0.8) Baso # (Auto) 0.1 10^3/uL 10^3/ uL (0.0-0.1) Nucleated RBC % (a uto) 0 % % Nucleated RBCs # 0.0 /100WBC /100W BC Specimen Type Sample Site ABG pH ABG pCO2 ABG pO2 ABG HCO3 ABG Base Excess Matteo Test Hematocrit O2 Delivery Device Online Activist ID Sodium 140 mmol/L mmol/L (136-145) Potassium 3.9 mmol/L mmol/L (3.5-5.1) Chloride 102 mmol/L mmol/L (98-107) Carbon Dioxide 27 mmol/L mmol/L (22-29) Anion Gap 14.9 (5-19) BUN 31 mg/dL H mg/dL (8-23) Creatinine 1.1 mg/dL mg/dL (0.7-1.2) GFR Calculation 66.6 mL/min L mL/ min (90-130) Glucose 139 mg/dL H mg/dL (65-115) Calculated Osmolal ity 299 mOsm/kg H mOs m/kg (285-295) Calcium 8.5 mg/dL mg/dL (8.5-10.5) Total Bilirubin 0.6 mg/dL mg/dL (0.15-1.2) AST 16 U/L U/L (0-40) ALT 18 U/L U/L (0-41) Alkaline Phosphata se 65 IU/L IU/L (40-130) Troponin T Baselin e 21 ng/L H ng/L (0-15) Troponin T 120 Min yocha dehe Delta Troponin T NT-Pro-B Natriuret Pep 1298 pg/mL H pg/m L (0-125) Total Protein 5.9 g/dL L g/dL (6.6-8.7) Albumin 3.6 g/dL g/dL (3.5-5.2) Globulin 2.3 g/dL g/dL (1.3-4.6) 11/12/21 11/13/21 22:59 00:27 WBC RBC Hgb Hct MCV MCH MCHC RDW Plt Count MPV Neut % (Auto) Lymph % (Auto) [place]ne % (Auto) Eos % (Auto) Baso % (Auto) Neut # (Auto) Lymph # (Auto) Duc[place]ne # (Auto) Eos # (Auto) Baso # (Auto) Nucleated RBC % (a uto) Nucleated RBCs # Specimen Type Arterial Sample Site Radial, right ABG pH 7.49 H (7.35-7.45) ABG pCO2 40.5 mmHg mmHg (35-45) ABG pO2 77.5 mmHg L mmHg (80.0-100.0) ABG HCO3 30.6 mmol/L H mmo l/L (22-26) ABG Base Excess 6.6 mmol/L H mmol /L (-2.0-2.0) Matteo Test Pos Hematocrit 35.1 % L % (42-52) O2 Delivery Device Room air Online Activist ID [id number] Sodium Potassium Chloride Carbon Dioxide Anion Gap BUN Creatinine GFR Calculation Glucose Calculated Osmolal ity Calcium Total Bilirubin AST ALT Alkaline Phosphata se Troponin T Baselin e Troponin T 120 Min yocha dehe 19.90 ng/L H ng/L (0-15) Delta Troponin T -1.10 ABS# L ABS# (0-10) NT-Pro-B Natriuret Pep Total Protein Albumin Globulin Discharge Plan Discharge Patient Disposition: Home Clinical Impression: Congestive heart failure Qualifiers: Heart failure type: unspecified Heart failure chronicity: acute on chronic Qualified Code(s): I50.9 - Heart failure, unspecified Condition: Stable Prescriptions: No Action tamsulosin 0.4 mg capsule 0.4 mg PO DAILY@06 RF: 0 citalopram [Celexa] 10 mg tablet 10 mg PO QAM RF: 0 nitroglycerin [Nitrostat] 0.4 mg tablet, sublingual 0.4 mg SUBLINGUAL Q5M PRN (Reason: Chest Pain) RF: 0 carvedilol 6.25 mg tablet 9.375 mg PO BID RF: 0 bumetanide 2 mg tablet 2 mg PO QAM RF: 0 ascorbic acid (vitamin C) 1,000 mg tablet 1 g PO BID RF: 0 methenamine hippurate 1 gram tablet 1 g PO BID Qty: 180 RF: 3 Hold Instructions: Resume on 10/23/21. amoxicillin 500 mg capsule 500 mg PO BID RF: 0 Hold Instructions: Resume on 10/23/21. potassium chloride 20 mEq Tablet Extended Release 20 meq PO BID RF: 0 pantoprazole [Protonix] 40 mg Tablet,Delayed Release (Dr/Ec) 40 mg PO DAILY@06 RF: 0 aspirin 81 mg Tablet,Delayed Release (Dr/Ec) 81 mg PO DAILY@06 RF: 0 Lantus Solostar U-100 Insulin 100 unit/mL (3 mL) insulin pen See Rx Instructions .ROUTE .COMPLEX RF: 0 Florajen Acidophilus 20 billion cell Capsule 20,000 mmu cells PO QPM RF: 0 PNV cmb#95-ferrous fumarate-FA [ Multivitamins] 28 mg iron- 800 mcg Tablet 1 tab PO DAILY@06 RF: 0 warfarin 5 mg tablet 7.5 mg PO DAILY Qty: 45 RF: 0 prednisone 5 mg tablet 7.5 mg PO DAILY Qty: 120 RF: 0 atorvastatin 40 mg tablet 40 mg PO DAILY@19 RF: 0 diltiazem HCl 120 mg capsule,extended release 24hr 120 mg PO DAILY@06 RF: 0 hydroxyzine pamoate 25 mg capsule 25 mg PO BID PRN (Reason: Anxiety) RF: 0 lisinopril 2.5 mg Tablet 2.5 mg PO DAILY Qty: 0 RF: 0 doxycycline hyclate 100 mg capsule 100 mg PO BID 7 Days Qty: 14 RF: 0 Discharge Orders: Discharge ED (Routine); Ordered 11/13/21 Ordered By: Dale Thomas Referrals: Faustina Gonzalez NP [Primary Care Provider] - Patient Instructions: Heart Failure (ED) Activity Restrictions/Additional Instructions: Increase your bumex dosing to 3 times daily for the next 2 days, then back to normal dosing. Return to the emergency room for worsening shortness of breath, chest discomfort, fever, any other concerning symptoms. Coding Level of Care Code ED Spinning Room Worker for John aJde
--- NOTE | 2021-11-12 21:13 | ECG_ITS ---
[facility] Test Date: 2021-11-12 Pat Name: Ry Loyd Department: Room: Gender: Male Customer Development Manager: : 1955 Requested By: Deion Thompson Order Number: [id number] Morena MD: Cassy Monreal M.D. Measurements Intervals [place] Rate: 92 P: RI: QRS: -29 QRSD: 86 T: 66 QT: 378 QTc: 470 Interpretive Statements ATRIAL FIBRILLATION BORDERLINE LEFT AXIS DEVIATION [QRS AXIS < -20] MODERATE VOLTAGE CRITERIA FOR LVH, CONSIDER NORMAL VARIANT [MEETS CRITERIA IN ONE OF: R(aVL), S(V1), R(V5), R(V5/V6)+S(V1)] NONSPECIFIC T-WAVE ABNORMALITY Compared to ECG 11/06/2021 04:59:59 No significant changes Electronically Signed On 11-13-2021 17:07:35 MANAGER RESORT by Cassy Monreal M.D. [id number]
[2021-11-12 21:34] VITALS: BP 127/77; PULSE 89; RESP 16; TEMP 36.6; O2SAT 97
[2021-11-12 22:15] LABS: Basophils # 0.1 10^3/uL (0.0-0.1); Basophils % 0.6 %; Eosinophils # 0.2 10^3/uL (0.0-0.8); Eosinophils % 2.7 %; Hematocrit 39.3 % (42.0-52.0); Hemoglobin 11.8 g/dL (11.7-16.6); Lymphocytes # 2.2 10^3/uL (0.8-4.8); Mean Platelet Volume 9.5 fL (7.4-10.4); Monocytes # 0.7 10^3/uL (0.2-0.9); Monocytes % 8.3 %; Neutrophils # 5.04 10^3/uL (1.8-7.7); Neutrophils % 60.8 %; Nucleated Red Blood Cells % 0 %; Platelet Count 223 10^3/cmm (130-400); Red Blood Count 6.55 10^6/uL (4.1-5.3); Red Cell Distribution Width 19.6 % (12.1-15.1); White Blood Count 8.3 10^3/uL (4.0-10.0)
[2021-11-12 22:32] LABS: Troponin(5th) Baseline 21 ng/L (0-15)
[2021-11-12 22:40] LABS: Alanine Aminotransferase 18 U/L (0-41); Albumin Level 3.6 g/dL (3.5-5.2); Alkaline Phosphatase 65 IU/L (40-130); Anion Gap 14.9 (5-19); Aspartate Amino Transferase 16 U/L (0-40); Blood Urea Nitrogen 31 mg/dL (8-23); Calcium 8.5 mg/dL (8.5-10.5); Carbon Dioxide 27 mmol/L (22-29); Chloride 102 mmol/L (98-107); Globulin 2.3 g/dL (1.3-4.6); Glomerular Filtration Rate 66.6 mL/min (90-130); Glucose 139 mg/dL (65-115); NT Pro B Type Natriuretic Pept 1298 pg/mL (0-125); Osmolality Calculated 299 mOsm/kg (285-295); Potassium 3.9 mmol/L (3.5-5.1); Sodium 140 mmol/L (136-145); Total Bilirubin 0.6 mg/dL (0.15-1.2); Total Protein 5.9 g/dL (6.6-8.7)
[2021-11-12 23:18] LABS: ABG PCO2 40.5 mmHg (35-45); ABG PH Result 7.49 (7.35-7.45); Arterial Blood Gas Hematocrit 35.1 % (42-52); Base Excess ABG 6.6 mmol/L (-2.0-2.0); Blood Gas Allen Test Pos; Blood Gas Sample Site Radial, right; Blood Gas Sample Type Arterial; HCO3 ABG 30.6 mmol/L (22-26); Oxygen Device ROOM AIR; PO2 ABG 77.5 mmHg (80.0-100.0)
[2021-11-13 00:34] VITALS: BP 135/72; PULSE 85; RESP 16; TEMP 36.6; O2SAT 96
[2021-11-13] MEDS: FUROsemide 10 mg/mL SDV 10mL 80 MG IVP (01:39)
[2021-11-13 02:26] VITALS: BP 141/74; PULSE 81; RESP 16; TEMP 36.6; O2SAT 96
== END 2021-11-13 02:27 | disposition home or self-care (01) ==
PROVIDERS: Emergency Medicine; Emergency Provider Emergency Medicine; PCP Nurse Practitioner Family
DX: I11.0 Hypertensive heart disease with heart failure (principal); I50.9 Heart failure, unspecified; Z79.01 Long term (current) use of anticoagulants; Z79.82 Long term (current) use of aspirin; Z79.4 Long term (current) use of insulin; Z86.73 Personal history of transient ischemic attack (TIA), and cerebral infarction without residual deficits; E11.9 Type 2 diabetes mellitus without complications; E78.5 Hyperlipidemia, unspecified; Z87.891 Personal history of nicotine dependence; N39.0 Urinary tract infection, site not specified; Z87.440 Personal history of urinary (tract) infections
CPT/HCPCS: 36600; 71045; 80053; 82803; 83880; 84484; 85025; 93005; 96374; 99283; J1940

== ENCOUNTER 2021-11-13 10:06 | Emergency (ER) | payer MEDICARE, OTHER, SELFPAY ==
[2021-11-13 10:09] VITALS: BP 116/66; PULSE 85; RESP 19; TEMP 36.5; O2SAT 95; BMI 27.8
--- NOTE | 2021-11-13 10:35 | W.ED.SOB ---
HPI - SOB/Dyspnea General: Chief Complaint: Shortness of Breath/Dyspnea Stated Complaint: SOB Time Seen by Provider: 11/13/21 10:23 History of Present Illness: HPI Narrative: Patient states called an ambulance because she just did not want to deal with him anymore. He says no change from when he is in the ER here last night. His shortness of breath is chronic and it is the same as it was the last few weeks. No other complaints problems present MD elicited complaint: shortness of breath Pertinent past history: COPD and other (Kidney failure) Onset (ago): month(s) Associated symptoms: Deny abdominal pain, chest pain, extremity pain, fever(s), nausea or vomiting Review of Systems Const: Denies: fever(s), chills or body aches Eyes: Denies: change in vision or blurry vision ENMT: Denies: throat pain or nasal congestion Card: Denies: chest pain or dyspnea on exertion Resp: Reports: dyspnea; Denies: productive cough or non-productive cough GI: Denies: abdominal pain, nausea or vomiting : Denies: difficulty urinating Musc: Denies: extremity pain Skin/Breast: Denies: rash Neuro: Denies: headache(s) Psych: Denies: anxiety or depression Aaron/Lymph: Denies: easy bruising PFSH ED PFSH: Medical History Aortic stenosis Had TAVR replacement 2017. 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 that looks to have ended early 02/2021 Essential hypertension Gout Hx of [place] spotted fever Ischemic cardiomyopathy Left ventricular hypertrophy Obesity AJAY (obstructive sleep apnea) Pulmonary HTN Recurrent UTI Multidrug-resistant organisms Renal calculi Rheumatoid arthritis Thalassemia Surgical History H/O lithotripsy S/P TAVR (transcatheter aortic valve replacement) (~2017) Family History Mother Stroke Father Myocardial infarction Other CAD (coronary artery disease) Chronic kidney disease (CKD) Diabetes Hypertension Social History Smoking and tobacco status: former smoker Quit status (tobacco): has quit using tobacco Year quit tobacco: 2020 - Chewing Tobacco Former quit date comment: Hx of 1/2 can x 50 Years Second hand smoke exposure: No Smoking risk assessment/counseling performed?: No Alcohol intake: former Lives independently: No Household members: spouse Marital status: Current occupational status: retired and disabled History of recent travel: No Current gender identity: Male Physical Exam Const: COMMON NORMALS: no acute distress GENERAL APPEARANCE: cooperative Resp: COMMON NORMALS: clear to auscultation bilaterally AUSCULTATION: clear to auscultation bilaterally and diminished lung sounds Psych: COMMON NORMALS: mental status grossly normal Skin: OTHER: Very dry and thin Course Vital Signs: Vital signs: Vital Signs Temperature 97.7 F 11/13/21 10:09 Pulse Rate 85 11/13/21 10:44 Respiratory Rate 19 H 11/13/21 10:44 Blood Pressure 116/66 11/13/21 11:06 Pulse Oximetry 97 11/13/21 11:06 MDM - SOB/Dyspnea MDM Narrative: Medical decision making narrative: Patient presents via ambulance for chronic shortness of breath. sent in by ambulance because he thought maybe his UTI was not improving. Patient was in the ER last night complete work-up done no concerning findings were found. Patient was sent home. Patient states that there has been no change he feels fine just has his chronic shortness of breath. I reviewed labs x-rays discussed with and possible need for rehab while he recovers from UTI I will try doxycycline because his last sensitivities show that his Kleb pneumonia was sensitive to tetracycline. I did not not see a fosfomycin sensitivity. Patient encouraged to follow-up primary care provider this coming week. Discharge Plan Discharge Patient Disposition: Home Clinical Impression: Recurrent UTI Condition: Stable Prescriptions: New doxycycline hyclate 100 mg capsule 100 mg PO BID 7 Days Qty: 14 RF: 0 No Action tamsulosin 0.4 mg capsule 0.4 mg PO DAILY@06 RF: 0 citalopram [Celexa] 10 mg tablet 10 mg PO QAM RF: 0 nitroglycerin [Nitrostat] 0.4 mg tablet, sublingual 0.4 mg SUBLINGUAL Q5M PRN (Reason: Chest Pain) RF: 0 carvedilol 6.25 mg tablet 9.375 mg PO BID RF: 0 bumetanide 2 mg tablet 2 mg PO QAM RF: 0 ascorbic acid (vitamin C) 1,000 mg tablet 1 g PO BID RF: 0 methenamine hippurate 1 gram tablet 1 g PO BID Qty: 180 RF: 3 Hold Instructions: Resume on 10/23/21. amoxicillin 500 mg capsule 500 mg PO BID RF: 0 Hold Instructions: Resume on 10/23/21. potassium chloride 20 mEq Tablet Extended Release 20 meq PO BID RF: 0 pantoprazole [Protonix] 40 mg Tablet,Delayed Release (Dr/Ec) 40 mg PO DAILY@06 RF: 0 aspirin 81 mg Tablet,Delayed Release (Dr/Ec) 81 mg PO DAILY@06 RF: 0 Lantus Solostar U-100 Insulin 100 unit/mL (3 mL) insulin pen See Rx Instructions .ROUTE .COMPLEX RF: 0 Florajen Acidophilus 20 billion cell Capsule 20,000 mmu cells PO QPM RF: 0 PNV cmb#95-ferrous fumarate-FA [ Multivitamins] 28 mg iron- 800 mcg Tablet 1 tab PO DAILY@06 RF: 0 warfarin 5 mg tablet 7.5 mg PO DAILY Qty: 45 RF: 0 prednisone 5 mg tablet 7.5 mg PO DAILY Qty: 120 RF: 0 atorvastatin 40 mg tablet 40 mg PO DAILY@19 RF: 0 diltiazem HCl 120 mg capsule,extended release 24hr 120 mg PO DAILY@06 RF: 0 hydroxyzine pamoate 25 mg capsule 25 mg PO BID PRN (Reason: Anxiety) RF: 0 lisinopril 2.5 mg Tablet 2.5 mg PO DAILY Qty: 0 RF: 0 Discharge Orders: Discharge ED (Routine); Ordered 11/13/21 Ordered By: Levon Padgett Referrals: Faustina Gonzalez NP [Primary Care Provider] - Discharge Diet: Usual diet Discharge Activity: Increase activity as tolerated Patient Instructions: Urinary Tract Infection in Women (ED) Activity Restrictions/Additional Instructions: Follow-up with medical provider as directed. Take medications as prescribed. Return to the ER or your medical provider if condition worsens. Please read and understand discharge instructions. If any questions ask please. Discussed with your primary care provider if nurse home rehab would be appropriate to help through this time of fighting through chronic UTI. Coding Level of Care Code ED Clinical Rehab Liaison for Chg Fwd Exam Expanded Problem Focused
[2021-11-13 10:44] VITALS: BP 116/66; PULSE 85; RESP 19; O2SAT 95
[2021-11-13] MEDS: doxycycline 100 mg Tablet PO (11:00)
[2021-11-13 11:06] VITALS: BP 116/66; O2SAT 97
--- NOTE | 2021-11-15 15:27 | DCPLANNER ---
branch services manager had message to schedule a follow up appointment for patient with infection disease. branch services manager emailed patients information to Tamra at [facility] General Surgery. Patients information will be printed and reviewed. Clinic will call patient with appointment information.
--- NOTE | 2021-12-02 08:33 | DCPLANNER ---
Patient had a follow up appointment scheduled for 11.30.[address] Berkowitz - patient did attend appointment.
== END 2021-11-13 11:07 | disposition home or self-care (01) ==
PROVIDERS: Emergency Provider Nurse Practitioner Family; PCP Nurse Practitioner Family
DX: N39.0 Urinary tract infection, site not specified (principal); Z79.01 Long term (current) use of anticoagulants; Z79.82 Long term (current) use of aspirin; Z79.4 Long term (current) use of insulin; I11.0 Hypertensive heart disease with heart failure; I50.9 Heart failure, unspecified; Z86.73 Personal history of transient ischemic attack (TIA), and cerebral infarction without residual deficits; E11.9 Type 2 diabetes mellitus without complications; E78.5 Hyperlipidemia, unspecified; Z87.440 Personal history of urinary (tract) infections; Z87.891 Personal history of nicotine dependence
CPT/HCPCS: 99283

== ENCOUNTER → 2021-11-30 15:19 | Outpatient (BNVA) | payer MEDICARE, OTHER, SELFPAY | PROVIDERS: PCP Nurse Practitioner Family; Visit Provider Urology | DX: N39.0 Urinary tract infection, site not specified (principal); N42.0 Calculus of prostate; N20.0 Calculus of kidney | CPT/HCPCS: 81003; 87077; 87086; 87184 ==

== ENCOUNTER 2021-12-27 12:03 | Emergency (ER) | payer MEDICARE, OTHER, SELFPAY ==
[2021-12-27 12:19] VITALS: BP 113/79; PULSE 66; RESP 18; TEMP 36.3; O2SAT 98; BMI 34.3
--- NOTE | 2021-12-27 15:12 | ECG_ITS ---
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 Measurements Intervals [place] Rate: 81 P: [place]: QRS: -49 QRSD: 80 T: 90 QT: 379 QTc: 442 Interpretive Statements ATRIAL FIBRILLATION LEFT AXIS DEVIATION [QRS AXIS < -30] Compared to ECG 11/12/2021 21:38:09 T-wave abnormality no longer present Electronically Signed On 12-28-2021 20:54:08 TELEVISION TECHNICIAN by Ari Pettit M.D. [id number]
--- NOTE | 2021-12-27 15:13 | XR_ITS ---
WS: [id number] XR chest 1V portable [id number] REASON FOR EXAM: weakness FINDINGS: Moderate tortuosity and ectasia of the thoracic aorta without aneurysmal dilatation. Stent graft aortic valve replacement. Normal heart size. Calcified granulomatous changes in both hemithoraces. No active pulmonary parenchymal or pleural disease. Iterative changes in the mid and lower thoracic spine and the shoulder joints. Bony thorax otherwise unremarkable. XR/XR chest 1V portable [id number] IMPRESSION: No acute abnormality.
[2021-12-27 17:03] LABS: Basophils # 0.1 10^3/uL (0.0-0.1); Basophils % 0.5 %; Eosinophils # 0.1 10^3/uL (0.0-0.8); Eosinophils % 1.1 %; Hematocrit 40.1 % (42.0-52.0); Hemoglobin 12.1 g/dL (11.7-16.6); Lymphocytes % 18.1 %; Mean Corpuscular HGB Conc 30.2 g/dL (30.0-36.0); Mean Corpuscular Hemoglobin 18.3 pg (28.0-34.0); Mean Corpuscular Volume 60.5 fl (80-94); Monocytes # 0.7 10^3/uL (0.2-0.9); Monocytes % 6.2 %; Neutrophils # 8.01 10^3/uL (1.8-7.7); Neutrophils % 73.6 %; Nucleated Red Blood Cells % 0 %; Platelet Count 241 10^3/cmm (130-400); Red Blood Count 6.63 10^6/uL (4.1-5.3); Red Cell Distribution Width 20.2 % (12.1-15.1); White Blood Count 10.9 10^3/uL (4.0-10.0)
[2021-12-27 17:36] LABS: Troponin(5th) Baseline 22 ng/L (0-15)
[2021-12-27 17:42] LABS: Alanine Aminotransferase 24 U/L (0-41); Albumin Level 4.1 g/dL (3.5-5.2); Alkaline Phosphatase 74 IU/L (40-130); Blood Urea Nitrogen 46 mg/dL (8-23); Calcium 9.9 mg/dL (8.5-10.5); Carbon Dioxide 22 mmol/L (22-29); Chloride 101 mmol/L (98-107); Globulin 2.4 g/dL (1.3-4.6); Glomerular Filtration Rate 83.9 mL/min (90-130); Glucose 156 mg/dL (65-115); NT Pro B Type Natriuretic Pept 890 pg/mL (0-125); Osmolality Calculated 301 mOsm/kg (285-295); Sodium 138 mmol/L (136-145); Total Bilirubin 0.5 mg/dL (0.15-1.2); Total Protein 6.5 g/dL (6.6-8.7)
[2021-12-27 17:44] LABS: Anion Gap 20.3 (5-19); Aspartate Amino Transferase 32 U/L (0-40); Potassium 5.3 mmol/L (3.5-5.1)
[2021-12-27 19:00] LABS: Troponin 5 2HR 19.55 ng/L (0-15); Troponin 5 2HR Delta -2.45 ABS# (0-10)
[2021-12-27 20:41] LABS: Glucose Point of Care 155 mg/dL (70-110)
--- NOTE | 2021-12-27 20:47 | ED_ITS ---
HPI - Weakness General: Chief complaint: Weakness Stated complaint: dizzy Time Seen by Provider: 12/27/21 20:20 Source: patient Mode of arrival: ambulatory Limitations: no limitations History of Present Illness: 66-year-old male states that he woke up this morning just feeling generally weak. He states he had some weakness throughout the day but certainly improved currently is also concerned he may have a little dehydration he denies any chest pain denies any vomiting or diarrhea or fever. He denies any difficulty walking or shortness of breath denies any worsening improving factors. Associated symptoms: Denies chest pain, chills, dysuria, easy bruising, fe ivett(s), headache(s), nausea or vomiting Review of Systems Const: Denies: fever(s), chills, body aches or change in appetite Eyes: Denies: blurry vision or eye discomfort ENMT: Denies: throat pain or dental pain Card: Denies: chest pain Resp: Denies: dyspnea GI: Denies: abdominal pain, nausea, vomiting or diarrhea : Denies: dysuria Musc: Denies: neck pain or back pain Skin/Breast: Denies: rash Neuro: Reports: weakness in extremities; Denies: headache(s) Psych: Denies: depression Aaron/Lymph: Denies: easy bruising All/Imm: Denies: urticaria PFSH ED PFSH: Medical History Aortic stenosis Had TAVR replacement 2017. 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 that looks to have ended early 02/2021 Essential hypertension Gout Hx of [place] spotted fever Ischemic cardiomyopathy Left ventricular hypertrophy Obesity AJAY (obstructive sleep apnea) Pulmonary HTN Recurrent UTI Multidrug-resistant organisms Renal calculi Rheumatoid arthritis Thalassemia Surgical History H/O lithotripsy S/P TAVR (transcatheter aortic valve replacement) (~2018) Family History Mother Stroke Father Myocardial infarction Other CAD (coronary artery disease) Chronic kidney disease (CKD) Diabetes Hypertension Social History Quit status (tobacco): has quit using tobacco Year quit tobacco: 2020 - Chewing Tobacco Former quit date comment: Hx of 1/2 can x 50 Years Second hand smoke exposure: No Smoking risk assessment/counseling performed?: No Alcohol intake: former Lives independently: No Household members: spouse Marital status: Current occupational status: retired and disabled History of recent travel: No Current gender identity: Male Physical Exam Const: COMMON NORMALS: no acute distress, patient oriented x3 and healthy appearing HENMT: COMMON NORMALS: normocephalic and atraumatic HEAD & SCALP: normocephalic and atraumatic Eye: COMMON NORMALS: Equal, round and reactive pupils present and EOMs intact bilaterally PUPIL: Yes Equal, round and reactive pupils present Neck/C-Spine: COMMON NORMALS: full ROM and supple Chest: COMMONS NORMALS: normal inspection of the chest and normal palpation of entire chest wall Resp: COMMON NORMALS: normal respiratory effort, No retractions, No use of accessory muscles and clear to auscultation bilaterally AUSCULTATION: clear to auscultation bilaterally Cardio: COMMON NORMALS: regular rate, regular rhythm and No murmurs present (Cardio) RATE: regular rate RHYTHM: regular rhythm GI: COMMON NORMALS: Normal to inspection, nondistended, normoactive bowel sounds present, Soft to palpation, non-tender and no masses PALPATION: Yes Soft to palpation Extremity: COMMON NORMALS: normal to inspection and full ROM Neuro: COMMON NORMALS: patient oriented x3, moves all extremities and no focal motor deficits Psych: COMMON NORMALS: mental status grossly normal, Normal thought process present and cooperative THOUGHT PROCESS: Normal thought process present Skin: COMMON NORMALS: no rashes or lesions noted and no wounds GENERAL SKIN EXAM: no rashes or lesions noted Course Vital Signs: Vital signs: Vital Signs Temperature 97.3 F L 12/27/21 12:19 Pulse Rate 66 12/27/21 12:19 Respiratory Rate 18 12/27/21 12:19 Blood Pressure 113/79 12/27/21 12:19 Pulse Oximetry 98 12/27/21 12:19 MDM - Weakness Medical Decision Making Patient presents for generalized weakness that is improved while he has been here patient's blood work here is all at his baseline and normal he stable for discharge is to follow-up with PCP and return if worsening he understands agrees to plan. Lab Data : 12/27/21 16:30 12/27/21 16:30 Radiology Impressions Chest X-Ray 12/27/21 15:13 IMPRESSION: No acute abnormality. Laboratory Results WBC 10.9 10^3/uL (4.0-10.0) H 12/27/21 16:30 RBC 6.63 10^6/uL (4.1-5.3) H 12/27/21 16:30 Hgb 12.1 g/dL (11.7-16.6) 12/27/21 16:30 Hct 40.1 % (42.0-52.0) L 12/27/21 16:30 MCV 60.5 fl (80-94) L 12/27/21 16:30 MCH 18.3 pg (28.0-34.0) L 12/27/21 16:30 MCHC 30.2 g/dL (30.0-36.0) 12/27/21 16:30 RDW 20.2 % (12.1-15.1) H 12/27/21 16:30 Plt Count 241 10^3/cmm (130-400) 12/27/21 16:30 MPV 11.0 fL (7.4-10.4) H 12/27/21 16:30 Neut % (Auto) 73.6 % 12/27/21 16:30 Lymph % (Auto) 18.1 % 12/27/21 16:30 [place] % (Auto) 6.2 % 12/27/21 16:30 Eos % (Auto) 1.1 % 12/27/21 16:30 Baso % (Auto) 0.5 % 12/27/21 16:30 Neut # (Auto) 8.01 10^3/uL (1.8-7.7) H 12/27/21 16:30 Lymph # (Auto) 2.0 10^3/uL (0.8-4.8) 12/27/21 16:30 [place] # (Auto) 0.7 10^3/uL (0.2-0.9) 12/27/21 16:30 Eos # (Auto) 0.1 10^3/uL (0.0-0.8) 12/27/21 16:30 Baso # (Auto) 0.1 10^3/uL (0.0-0.1) 12/27/21 16:30 Nucleated RBC % (auto) 0 % 12/27/21 16:30 Nucleated RBCs # 0.0 /100WBC 12/27/21 16:30 Sodium 138 mmol/L (136-145) 12/27/21 16:30 Potassium 5.3 mmol/L (3.5-5.1) H 12/27/21 16:30 Chloride 101 mmol/L (98-107) 12/27/21 16:30 Carbon Dioxide 22 mmol/L (22-29) 12/27/21 16:30 Anion Gap 20.3 (5-19) H 12/27/21 16:30 BUN 46 mg/dL (8-23) H 12/27/21 16:30 Creatinine 0.9 mg/dL (0.7-1.2) 12/27/21 16:30 GFR Calculation 83.9 mL/min (90-130) L 12/27/21 16:30 Glucose 156 mg/dL (65-115) H 12/27/21 16:30 POC Glucose 155 mg/dL (70-110) H 12/27/21 20:37 Calculated Osmolality 301 mOsm/kg (285-295) H 12/27/21 16:30 Calcium 9.9 mg/dL (8.5-10.5) 12/27/21 16:30 Total Bilirubin 0.5 mg/dL (0.15-1.2) 12/27/21 16:30 AST 32 U/L (0-40) 12/27/21 16:30 ALT 24 U/L (0-41) 12/27/21 16:30 Alkaline Phosphatase 74 IU/L (40-130) 12/27/21 16:30 Troponin T Baseline 22 ng/L (0-15) H 12/27/21 16:30 Troponin T 120 Minute 19.55 ng/L (0-15) H 12/27/21 18:20 Delta Troponin T -2.45 ABS# (0-10) L 12/27/21 18:20 NT-Pro-B Natriuret Pep 890 pg/mL (0-125) H 12/27/21 16:30 Total Protein 6.5 g/dL (6.6-8.7) L 12/27/21 16:30 Albumin 4.1 g/dL (3.5-5.2) 12/27/21 16:30 Globulin 2.4 g/dL (1.3-4.6) 12/27/21 16:30 Discharge Plan Discharge Patient Disposition: Home Clinical Impression: Weakness Condition: Stable Prescriptions: No Action tamsulosin 0.4 mg capsule 0.4 mg PO DAILY@06 0RF citalopram [Celexa] 10 mg tablet 10 mg PO QAM 0RF nitroglycerin [Nitrostat] 0.4 mg tablet, sublingual 0.4 mg SUBLINGUAL Q5M PRN (Reason: Chest Pain) 0RF carvedilol 6.25 mg tablet 9.375 mg PO BID 0RF Rx Instructions: (1.5 tab =9.375mg) bumetanide 2 mg tablet 2 mg PO QAM 0RF ascorbic acid (vitamin C) 1,000 mg tablet 1 g PO BID 0RF leflunomide 10 mg tablet 10 mg PO DAILY 0RF methenamine hippurate 1 gram tablet 1 g PO BID Qty: 180 3RF Hold Instructions: Resume on 10/23/21. Rx Instructions: with 1 g vitamin C each dose amoxicillin 500 mg capsule 500 mg PO BID 0RF Hold Instructions: Resume on 10/23/21. prednisone 5 mg tablet 7.5 mg PO DAILY Qty: 120 0RF potassium chloride 20 mEq Tablet Extended Release 20 meq PO BID 0RF pantoprazole [Protonix] 40 mg Tablet,Delayed Release (Dr/Ec) 40 mg PO DAILY@06 0RF aspirin 81 mg Tablet,Delayed Release (Dr/Ec) 81 mg PO DAILY@06 0RF Lantus Solostar U-100 Insulin 100 unit/mL (3 mL) insulin pen See Rx Instructions .ROUTE .COMPLEX 0RF Rx Instructions: 40 units qam and 30 units qpm Florajen Acidophilus 20 billion cell Capsule 20,000 mmu cells PO QPM 0RF PNV cmb#95-ferrous fumarate-FA [ Multivitamins] 28 mg iron- 800 mcg Tablet 1 tab PO DAILY@06 0RF warfarin 5 mg tablet 7.5 mg PO DAILY Qty: 45 0RF atorvastatin 40 mg tablet 40 mg PO DAILY@19 0RF diltiazem HCl 120 mg capsule,extended release 24hr 120 mg PO DAILY@06 0RF hydroxyzine pamoate 25 mg capsule 25 mg PO BID PRN (Reason: Anxiety) 0RF lisinopril 2.5 mg Tablet 2.5 mg PO DAILY Qty: 0 0RF Discharge Orders: Discharge ED (Routine); Ordered 12/27/21 Ordered By: Shcuyler Smith Referrals: Faustina Gonzalez NP [Primary Care Provider] - 1-3 days Discharge Diet: Advance as tolerated Discharge Activity: Resume usual activity Patient Instructions: Weakness (ED) Coding Level of Care Code ED Manager Crisis for John Jade
[2021-12-27] MEDS: sodium chloride 0.9% 500 ML 999 ML IV (21:07)
[2021-12-27 21:50] VITALS: BP 142/95; PULSE 84; RESP 18; TEMP 36.6; O2SAT 98
[2021-12-27 22:59] VITALS: BP 142/95; PULSE 84; RESP 18; TEMP 36.6; O2SAT 98
== END 2021-12-27 22:10 | disposition home or self-care (01) ==
PROVIDERS: Physician Assistant; Emergency Provider Emergency Medicine; PCP Nurse Practitioner Family
DX: R53.1 Weakness (principal); Z79.82 Long term (current) use of aspirin; Z79.01 Long term (current) use of anticoagulants; Z79.4 Long term (current) use of insulin; I11.0 Hypertensive heart disease with heart failure; I50.9 Heart failure, unspecified; Z86.73 Personal history of transient ischemic attack (TIA), and cerebral infarction without residual deficits; E11.9 Type 2 diabetes mellitus without complications; E78.5 Hyperlipidemia, unspecified; Z87.891 Personal history of nicotine dependence
CPT/HCPCS: 36416; 71045; 80053; 82962; 83880; 84484; 85025; 93005; 99283; J7040

== ENCOUNTER 2021-12-29 02:06 | Inpatient (IN) | payer MEDICARE, OTHER, SELFPAY ==
[2021-12-29] VITALS (10 sets, daily range): BP systolic 93–146; BP diastolic 55–69; PULSE 62–90; RESP 17–20; TEMP 36.4–37.4; O2SAT 93–98; BMI 34.2
--- NOTE | 2021-12-29 02:09 | XR_ITS ---
WS: [id number] XR chest 1V portable [id number] REASON FOR EXAM: sob FINDINGS: Aortic valve stent/graft. Moderately tortuous thoracic aorta without aneurysmal dilatation. No cardiomegaly. Calcified granulomatous disease in both hemithoraces. Compared to the examination of the previous day there is obscuration of the apex of the left ventricl e with opacity of the left costophrenic angle.. No other new finding. XR/XR chest 1V portable [id number] IMPRESSION: New opacity in the left costophrenic angle. Likely this is atelectasis. Acute i nflammatory process and not excluded. Follow-up chest x-ray recommended.
--- NOTE | 2021-12-29 06:50 | W.ED.GENADLT ---
HPI - General Adult General: Chief complaint: General Medical Stated complaint: chills, SOB Time Seen by Provider: 12/29/21 06:44 Source: patient Mode of arrival: wheelchair History of Present Illness: 58-year-old male presents emergency room with complaint of right flank pain. He has some difficulty with urination and some burning. He had UTIs in the past he is having chills as well as some shortness of breath generalized weakness overnight. His mentioned that he had problems with kidney stones have not noticed hematuria Onset (ago): hour(s) Location: abdomen and right (Flank) Severity: moderate Quality: sharp Pain Consistency: constant Relieving factors: none Exacerbating factors: none Associated symptoms: Reports dyspnea, fevers/chills, malaise, short of breath and weakness; Deny chest pain, confusion, cough, diaphoresis, decreased appetite, headache(s), nausea, rash, palpitations, seizures, syncope or vomiting Review of Systems Const: Reports: malaise; Denies: diaphoresis Card: Denies: chest pain, palpitations or syncope Resp: Reports: dyspnea GI: Denies: nausea or vomiting : Reports: flank pain, dysuria and urinary frequency Skin/Breast: Denies: rash Neuro: Denies: headache(s) or confusion PFSH ED PFSH: Medical History Aortic stenosis Had TAVR replacement 2017 Atrial fibrillation Bilateral renal masses CHF (congestive heart failure) EF 45 by transesophageal echo January 2019 Chronic use of steroids CVA (cerebral vascular accident) Dementia Diabetes Dyslipidemia Endocarditis history of chronic viridans endocarditis, 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 Essential hypertension Gout Hx of [place] spotted fever Ischemic cardiomyopathy Left ventricular hypertrophy Obesity AJAY (obstructive sleep apnea) Pulmonary HTN Recurrent UTI Multidrug-resistant organisms Renal calculi Restrictive lung disease Rheumatoid arthritis Thalassemia Surgical History H/O lithotripsy S/P TAVR (transcatheter aortic valve replacement) (~2017) Family History Mother Stroke Father Myocardial infarction Other CAD (coronary artery disease) Chronic kidney disease (CKD) Diabetes Hypertension Social History Quit status (tobacco): has quit using tobacco Year quit tobacco: 2020 - Chewing Tobacco Former quit date comment: Hx of 1/2 can x 50 Years Second hand smoke exposure: No Alcohol intake: former Lives independently: No Household members: spouse Marital status: Current occupational status: retired and disabled Current gender identity: Male Physical Exam Const: GENERAL APPEARANCE: cooperative ORIENTATION/CONSCIOUSNESS: Yes awake, Yes oriented to person, Yes oriented to place and Yes oriented to time HENMT: COMMON NORMALS: normocephalic, atraumatic and hearing grossly normal bilaterally HEAD & SCALP: normocephalic and atraumatic Neck/C-Spine: COMMON NORMALS: no JVD Resp: COMMON NORMALS: normal respiratory effort, No retractions, No use of accessory muscles and clear to auscultation bilaterally AUSCULTATION: clear to auscultation bilaterally Cardio: COMMON NORMALS: no JVD, regular rate, regular rhythm and No murmurs present (Cardio) RATE: regular rate RHYTHM: regular rhythm GI: COMMON NORMALS: No hepatosplenomegaly present AUSCULTATION: Yes normoactive bowel sounds PALPATION: Yes Tenderness to palpation present (GI) (Right side, exam inconsistent.), No Guarding due to palpation present (GI) and Yes No hepatosplenomegaly present : BLADDER/KIDNEY EXAM: Yes CVA tenderness Back/Pelvis: GENERAL BACK: Yes CVA tenderness CVA tenderness: right Extremity: COMMON NORMALS: normal to inspection, capillary refill normal, no clubbing, cyanosis or edema, no calf tenderness and no pedal edema Neuro: SENSORIUM/ORIENTATION: Yes oriented to person, Yes oriented to place and Yes oriented to time Skin: COMMON NORMALS: no rashes or lesions noted GENERAL SKIN EXAM: no rashes or lesions noted Course Vital Signs: Vital signs: Vital Signs Temperature 99 F 12/31/21 19:34 Pulse Rate 96 12/31/21 19:34 Respiratory Rate 14 12/31/21 19:34 Blood Pressure 96/60 12/31/21 19:34 Pulse Oximetry 95 12/31/21 19:34 MDM - General Adult Medical Decision Making Left flank pain with signs of pyelonephritis clinically and on imaging. Labs and imaging reviewed initiate antibiotics discussed with hospitalist will admit for pyelonephritis Medical Records I reviewed the patient's medical records. Lab Data I reviewed the patient's lab results. : 12/30/21 05:05 12/30/21 05:05 Radiology Impressions Chest X-Ray 12/29/21 02:09 IMPRESSION: New opacity in the left costophrenic angle. Likely this is atelectasis. Acute inflammatory process and not excluded. Follow-up chest x-ray recommended. Abdomen/Pelvis CT 12/29/21 10:17 IMPRESSION: 1. No renal obstruction. 2. Bilateral perinephric stranding. Increased amount of stranding around the lower pole of the RIGHT kidney. Correlate for possible pyelonephritis. 3. Indeterminate bilateral renal masses have been previously described. 4. Cholelithiasis without acute cholecystitis. 5. Normal appendix. 6. Diverticulosis without acute diverticulitis. Laboratory Results WBC 13.6 10^3/uL (4.0-10.0) H 12/29/21 08:03 RBC 6.87 10^6/uL (4.1-5.3) H 12/29/21 08:03 Hgb 12.3 g/dL (11.7-16.6) 12/29/21 08:03 Hct 41.9 % (42.0-52.0) L 12/29/21 08:03 MCV 61.0 fl (80-94) L 12/29/21 08:03 MCH 17.9 pg (28.0-34.0) L 12/29/21 08:03 MCHC 29.4 g/dL (30.0-36.0) L 12/29/21 08:03 RDW 20.1 % (12.1-15.1) H 12/29/21 08:03 Plt Count 209 10^3/cmm (130-400) 12/29/21 08:03 MPV Not Reportable 12/29/21 08:03 Neut % (Auto) 72.5 % 12/29/21 08:03 Lymph % (Auto) 16.5 % 12/29/21 08:03 [place] % (Auto) 8.7 % 12/29/21 08:03 Eos % (Auto) 1.3 % 12/29/21 08:03 Baso % (Auto) 0.6 % 12/29/21 08:03 Neut # (Auto) 9.84 10^3/uL (1.8-7.7) H 12/29/21 08:03 Lymph # (Auto) 2.2 10^3/uL (0.8-4.8) 12/29/21 08:03 [place] # (Auto) 1.2 10^3/uL (0.2-0.9) H 12/29/21 08:03 Eos # (Auto) 0.2 10^3/uL (0.0-0.8) 12/29/21 08:03 Baso # (Auto) 0.1 10^3/uL (0.0-0.1) 12/29/21 08:03 Nucleated RBC % (auto) 0 % 12/29/21 08:03 Nucleated RBCs # 0.0 /100WBC 12/29/21 08:03 Sodium 134 mmol/L (136-145) L 12/29/21 08:03 Potassium 4.0 mmol/L (3.5-5.1) 12/29/21 08:03 Chloride 101 mmol/L (98-107) 12/29/21 08:03 Carbon Dioxide 19 mmol/L (22-29) L 12/29/21 08:03 Anion Gap 18.0 (5-19) 12/29/21 08:03 BUN 40 mg/dL (8-23) H 12/29/21 08:03 Creatinine 0.9 mg/dL (0.7-1.2) 12/29/21 08:03 GFR Calculation 83.9 mL/min (90-130) L 12/29/21 08:03 Glucose 115 mg/dL (65-115) 12/29/21 08:03 Calculated Osmolality 289 mOsm/kg (285-295) 12/29/21 08:03 Calcium 9.7 mg/dL (8.5-10.5) 12/29/21 08:03 Urine Color Yellow (Yellow) 12/29/21 09:26 Urine Appearance Cloudy (CLEAR) 12/29/21 09: Urine pH 5 (5-7) 12/29/21 09: Ur Specific [place] 1.010 (1.005-1.030) 12/29/21 09:26 Urine Protein 1+ (Negative) H 12/29/21 09: Urine Glucose (UA) Norm (Normal) 12/29/21 09:26 Urine Ketones 1+ (Negative) H 12/29/21 09:26 Urine Blood 3+ (Negative) H 12/29/21 09:26 Urine Nitrate Positive (Negative) H 12/29/21 09:26 Urine Bilirubin Neg (Negative) 12/29/21 09:26 Urine Urobilinogen Norm mg/dL (Negative) 12/29/21 09:26 Ur Leukocyte Esterase 2+ (Negative) H 12/29/21 09:26 Urine RBC >100 /hpf (0-2) H 12/29/21 09:26 Urine WBC 25-40 /hpf (0-5) H 12/29/21 09:26 Ur Squamous Epith Cells 5-10 /hpf (0-5) H 12/29/21 09:26 Amorphous Sediment Not Reportable 12/29/21 09:26 Urine Bacteria 2+ /hpf (NONE) H 12/29/21 09:26 Other Casts Wbc cast /lpf 12/29/21 09:26 SARS-CoV-2 RNA (RT-PCR) Cancelled 12/29/21 02:25 Discharge Plan Discharge Patient Disposition: Admitted As Inpatient Admit Provider: Di Pugh Clinical Impression: Pyelonephritis of right kidney, Diabetes, Chronic anticoagulation, Congestive heart failure, Rheumatoid arthritis Condition: Stable Discharge Diet: Usual diet Discharge Activity: Increase activity as tolerated Coding Level of Care Code ED Orthodontic Lab Technician for John Fwd Exam Comprehensive
[2021-12-29 08:29] LABS: Basophils # 0.1 10^3/uL (0.0-0.1); Basophils % 0.6 %; Eosinophils # 0.2 10^3/uL (0.0-0.8); Eosinophils % 1.3 %; Hematocrit 41.9 % (42.0-52.0); Hemoglobin 12.3 g/dL (11.7-16.6); Lymphocytes # 2.2 10^3/uL (0.8-4.8); Lymphocytes % 16.5 %; Mean Corpuscular HGB Conc 29.4 g/dL (30.0-36.0); Mean Corpuscular Hemoglobin 17.9 pg (28.0-34.0); Monocytes # 1.2 10^3/uL (0.2-0.9); Monocytes % 8.7 %; Neutrophils # 9.84 10^3/uL (1.8-7.7); Neutrophils % 72.5 %; Nucleated Red Blood Cells % 0 %; Platelet Count 209 10^3/cmm (130-400); Red Blood Count 6.87 10^6/uL (4.1-5.3); Red Cell Distribution Width 20.1 % (12.1-15.1); White Blood Count 13.6 10^3/uL (4.0-10.0)
[2021-12-29 08:38] LABS: Blood Urea Nitrogen 40 mg/dL (8-23); Calcium 9.7 mg/dL (8.5-10.5); Carbon Dioxide 19 mmol/L (22-29); Chloride 101 mmol/L (98-107); Glomerular Filtration Rate 83.9 mL/min (90-130); Glucose 115 mg/dL (65-115); Osmolality Calculated 289 mOsm/kg (285-295); Sodium 134 mmol/L (136-145)
[2021-12-29 09:57] LABS: Add Urine Microscopic? YES; Bilirubin Urine Neg (Negative); Blood Urine 3+ (Negative); Glucose Urine UA Norm (Normal); Ketones Urine 1+ (Negative); Leukocyte Esterase Urine 2+ (Negative); Nitrate Urine Positive (Negative); Protein Urine 1+ (Negative); Urine Appearance Cloudy (CLEAR); Urine Color Yellow (Yellow); Urobilinogen Urine Norm (Negative); pH Urine 5 (5-7)
[2021-12-29 10:10] LABS: Add Urine Culture? Yes; Bacteria Urine 2+ /hpf; Other Casts Urine WBC CAST /lpf; RBC Urine >100 /hpf (0-2); WBC Urine 25-40 /hpf (0-5)
--- NOTE | 2021-12-29 10:17 | CT_ITS ---
WS: [id number] CT ABDOMEN AND PELVIS NONCONTRAST HISTORY: flank pain, RIGHT TECHNIQUE: Imaging performed through the abdomen and pelvis. Coronal and sagittal reformats are submi tted. All CT scans at [facility] use at least one of these dose optimization techniques: auto mated exposure control; mA and/or kV adjustment per patient size (includes targeted exams where dose is matched to clinical indication); or iterative reconstruction. DLP: 2243.96 mGy.cm COMPARISON: 10/14/2021 Lower thorax: Motion artifact at the lung bases. Mild enlargement of the heart. Liver: Normal size liver. No mass or bile duct dilatation. Gallbladder: Cholelithiasis without evidence for acute cholecystitis. No bile duct dilatation. Pancreas: Normal size and attenuation. Normal pancreatic duct. No pancreatitis or mass. Spleen: Normal size with granulomata. Adrenal glands: Normal. No mass. Right kidney: Numerous masses with variable density have been previously described. There is mild per inephric stranding. Perinephric stranding has increased from the lower pole. No hydronephrosis. Left kidney: Perinephric stranding with numerous indeterminate masses as previously described. These are not completely cystic masses. Nonobstructing calcifications in the renal pelvis. Ureter is not di lated. Aorta: Mild atherosclerosis abdominal aorta with no aneurysm. No free fluid, intraperitoneal air or significant lymphadenopathy. GI tract: No appendicitis. Mild diffuse fecal retention and constipation. No obstructive pattern. Num erous diverticula in the distal colon. No acute inflammation. Abdominal wall: Ventral abdominal wall hernia contains fat only. Pelvis: Urinary bladder is moderately well distended. No intraluminal calcification. Prostate gland i s not enlarged but there are numerous calcifications. Osseous structures: No destructive bone lesions. CT/CT kidney stone [id number] IMPRESSION: 1. No renal obstruction. 2. Bilateral perinephric stranding. Increased amount of stranding around the l ower pole of the RIGHT kidney. Correlate for possible pyelonephritis. 3. Indeterminate bilateral renal masses have been previously described. 4. Cholelithiasis without acute cholecystitis. 5. Normal appendix. 6. Diverticulosis without acute diverticulitis.
[2021-12-29] MEDS: amoxicillin-clav 875-125 mg Tablet 1 TAB PO (10:53)
--- NOTE | 2021-12-29 12:13 | P.HP_ITS ---
Providers/Chief Complaint Admitting Physician: Di Pugh MD Primary Care Provider: Faustina Gonzalez NP Chief Complaint: chills, SOB History of Present Illness Ry Loyd is a 66 year old male who presented to the emergency room with chief complaint of increasing right flank pain, generalized weakness and malaise. He has a history of recurrent urinary tract infections with drug- resistant organisms. Most recently cultures grew out ESBL Klebsiella. He has been on chronic suppressive therapy with oral amoxicillin as well as on methenamine and vitamin C but is continued to have recurrent issues. He does have renal calculi as well as chronic prostatic calcifications but nothing that is necessitating intervention presently. [facility] and has seen Dr. Downing with infectious disease. He had been seen in the emergency room a couple of days ago complaining primarily of weakness. At that time he had normal white count and work-up was otherwise unremarkable. He does have a known history of rheumatoid arthritis for which she is on Arava and chronic prednisone. Today his white count was up to 13,000. Urinalysis showed positive nitrites and leukocyte esterase with greater than 100,000 red blood cells and 25-40 white blood cells. Noncontrasted CT of the abdomen and pelvis showed bilateral perinephric stranding that was notably increased in the lower pole of the right kidney. Given the right flank pain and other abnormalities suggestive of recurrent infection combined with his comorbid conditions, he is being admitted for further evaluation and treatment. Review of Systems Const: Reports: chills, body aches, fatigue and malaise; Denies: fever(s) Eyes: Denies: change in vision ENMT: Denies: throat pain or nasal congestion Card: Reports: edema and lightheadedness; Denies: chest pain, palpitations or syncope Resp: Reports: dyspnea and non-productive cough; Denies: productive cough GI: Reports: abdominal pain and nausea; Denies: vomiting, diarrhea or hematochezia : Reports: flank pain, dysuria and urinary frequency; Denies: difficulty urinating or hematuria Musc: Reports: muscle weakness Skin/Breast: Denies: pruritus or sores Neuro: Denies: headache(s), numbness in extremities, weakness in extremities or difficulty walking Psych: Reports: memory loss Aaron/Lymph: Denies: easy bleeding Medications/Allergies Home Medications Medication Instructions Recorded Confirmed Last Taken Type citalopram 10 mg tablet (Celexa) 10 mg PO QAM tab 12/03/19 12/29/21 12/28/21 History nitroglycerin 0.4 mg sublingual 0.4 mg SUBLINGUAL Q5M PRN 12/03/19 12/29/21 11/10/21 History tablet (Nitrostat) tamsulosin 0.4 mg capsule 0.4 mg PO DAILY@06 cap 12/03/19 12/29/21 12/28/21 History pantoprazole 40 mg tablet,delayed 40 mg PO DAILY@12/25/19 12/29/21 12/28/21 History release (Protonix) potassium chloride 20 mEq 20 meq PO BID 12/25/19 12/29/21 12/28/21 History tablet,extended release aspirin 81 mg tablet,delayed 81 mg PO DAILY@10/10/20 12/29/21 12/28/21 History release carvedilol 6.25 mg tablet 9.375 mg PO BID tab 10/30/20 12/29/21 12/28/21 History atorvastatin 40 mg tablet 40 mg PO DAILY@02/17/21 12/29/21 12/28/21 History diltiazem HCl 120 mg 120 mg PO DAILY@02/17/21 12/29/21 12/28/21 History capsule,extended release 24 hr methenamine hippurate 1 gram tablet 1 g PO BID #180 tab 03/25/21 12/29/21 12/28/21 Rx ascorbic acid (vitamin C) 1,000 mg 1 g PO BID tab 04/23/21 12/29/21 12/28/21 History tablet bumetanide 2 mg tablet 2 mg PO QAM 04/23/21 12/29/21 12/28/21 History hydroxyzine pamoate 25 mg capsule 25 mg PO BID PRN 04/23/21 12/29/21 11/10/21 History amoxicillin 500 mg capsule 500 mg PO BID 06/28/21 12/29/21 12/28/21 History Lactobacillus acidophilus 20 20,000 mmu cells PO QPM 07/12/21 12/29/21 12/28/21 History billion cell capsule (Florajen Acidophilus) insulin glargine 100 unit/mL (3 See Rx Instructions .ROUTE .COMPLEX 07/12/21 12/29/21 11/10/21 History mL) subcutaneous pen (Lantus Solostar U-100 Insulin) vit no.95-ferrous 1 tab PO DAILY@06 07/12/21 12/29/21 12/28/21 History fumarate 28 mg-folic acid 800 mcg tablet ( Multivitamins) lisinopril 2.5 mg tablet 2.5 mg PO DAILY #0 10/14/21 12/29/21 12/28/21 History leflunomide 10 mg tablet 10 mg PO DAILY 11/30/21 12/29/21 12/28/21 History acetaminophen 500 mg tablet 500 mg PO Q6H PRN 12/29/21 12/29/21 12/28/21 History prednisone 5 mg tablet 7.5 mg PO QAM 12/29/21 12/29/21 12/28/21 History warfarin 5 mg tablet 7.5 mg PO QPM 12/29/21 12/29/21 12/28/21 History Allergies Allergy/AdvReac Type Severity Reaction Status Date / Time ceftriaxone [From Rocephin] Allergy Intermediate ALGY-Difficulty Verified 12/29/21 11:58 Breathing levofloxacin [From Levaquin] Allergy Mild ADR-Itching Verified 12/29/21 11:58 iodine Allergy Unknown Unknown Verified 12/29/21 11:58 clopidogrel [From Plavix] AdvReac Intermediate Unknown Verified 12/29/21 11:58 PFSH Acute PFSH: Medical History (Updated 12/29/21 @ 13:42 by Di Pugh MD) Aortic stenosis Had TAVR replacement 2017 Atrial fibrillation Bilateral renal masses CHF (congestive heart failure) EF 45 by transesophageal echo January 2019 Chronic use of steroids CVA (cerebral vascular accident) Dementia Diabetes Dyslipidemia Endocarditis history of chronic viridans endocarditis, s/p one year of amoxicillin treatm ent that ended 02/2021 Essential hypertension Gout Hx of [place] spotted fever Ischemic cardiomyopathy Left ventricular hypertrophy Obesity AJAY (obstructive sleep apnea) Pulmonary HTN Recurrent UTI Multidrug-resistant organisms Renal calculi Restrictive lung disease Rheumatoid arthritis Thalassemia Surgical History H/O lithotripsy S/P TAVR (transcatheter aortic valve replacement) (~2017) Family History Mother Stroke Father Myocardial infarction Other CAD (coronary artery disease) Chronic kidney disease (CKD) Diabetes Hypertension Social History (Updated 12/29/21 @ 12:22 by Di Pugh MD) Quit status (tobacco): has quit using tobacco Year quit tobacco: 2020 - Chewing Tobacco Former quit date comment: Hx of 1/2 can x 50 Years Second hand smoke exposure: No Alcohol intake: former Lives independently: No Household members: spouse Marital status: Current occupational status: retired and disabled Current gender identity: Male Vitals/I&O/Wt Last Vital Signs Temp 97.6 F 12/29/21 02:11 Pulse 86 12/29/21 12:09 Resp 18 12/29/21 12:09 BP 146/69 12/29/21 12:09 Pulse Ox 93 12/29/21 12:09 Weight last 48 hrs Weight 111.584 kg Physical Exam Narrative: Constitutional: Awake, alert, able to provide some history but provides the majority of it HEENT: Normocephalic, some discharge noted in the right eye with some mild conjunctival injection, nasopharynx is clear, oropharynx with dry mucous membranes otherwise clear Neck: Large but supple Respiratory: Decreased breath sounds at bases, no accessory muscle use Cardiovascular: Regular rhythm, no murmurs, 2+ radial pulses, faint dorsalis pedis pulses equal bilaterally Abdomen: Soft, positive bowel sounds, obese, nondistended, large area of discoloration and hypertrophy predominantly above although involving the upper portion of the umbilicus, and central area of this it looks as if there is some dried blood that had dripped onto the hypertrophied skin : Right flank pain is prominent on examination, normal external genitalia Extremities: 2+ edema Skin: Dry, chronic stasis changes in addition to what is noted on the abdomen, pale Neuro: Speech clear, face symmetric, moves all extremities Psych: Normal affect Data : 12/29/21 08:03 12/29/21 08:03 Other Labs: Radiology Impressions Chest X-Ray 12/29/21 02:09 IMPRESSION: New opacity in the left costophrenic angle. Likely this is atelectasis. Acute inflammatory process and not excluded. Follow-up chest x-ray recommended. Abdomen/Pelvis CT 12/29/21 10:17 IMPRESSION: 1. No renal obstruction. 2. Bilateral perinephric stranding. Increased amount of stranding around the lower pole of the RIGHT kidney. Correlate for possible pyelonephritis. 3. Indeterminate bilateral renal masses have been previously described. 4. Cholelithiasis without acute cholecystitis. 5. Normal appendix. 6. Diverticulosis without acute diverticulitis. Laboratory Results WBC 13.6 10^3/uL (4.0-10.0) H 12/29/21 08:03 RBC 6.87 10^6/uL (4.1-5.3) H 12/29/21 08:03 Hgb 12.3 g/dL (11.7-16.6) 12/29/21 08:03 Hct 41.9 % (42.0-52.0) L 12/29/21 08:03 MCV 61.0 fl (80-94) L 12/29/21 08:03 MCH 17.9 pg (28.0-34.0) L 12/29/21 08:03 MCHC 29.4 g/dL (30.0-36.0) L 12/29/21 08:03 RDW 20.1 % (12.1-15.1) H 12/29/21 08:03 Plt Count 209 10^3/cmm (130-400) 12/29/21 08:03 MPV Not Reportable 12/29/21 08:03 Neut % (Auto) 72.5 % 12/29/21 08:03 Lymph % (Auto) 16.5 % 12/29/21 08:03 [place] % (Auto) 8.7 % 12/29/21 08:03 Eos % (Auto) 1.3 % 12/29/21 08:03 Baso % (Auto) 0.6 % 12/29/21 08:03 Neut # (Auto) 9.84 10^3/uL (1.8-7.7) H 12/29/21 08:03 Lymph # (Auto) 2.2 10^3/uL (0.8-4.8) 12/29/21 08:03 [place] # (Auto) 1.2 10^3/uL (0.2-0.9) H 12/29/21 08:03 Eos # (Auto) 0.2 10^3/uL (0.0-0.8) 12/29/21 08:03 Baso # (Auto) 0.1 10^3/uL (0.0-0.1) 12/29/21 08:03 Nucleated RBC % (auto) 0 % 12/29/21 08:03 Nucleated RBCs # 0.0 /100WBC 12/29/21 08:03 Sodium 134 mmol/L (136-145) L 12/29/21 08:03 Potassium 4.0 mmol/L (3.5-5.1) 12/29/21 08:03 Chloride 101 mmol/L (98-107) 12/29/21 08:03 Carbon Dioxide 19 mmol/L (22-29) L 12/29/21 08:03 Anion Gap 18.0 (5-19) 12/29/21 08:03 BUN 40 mg/dL (8-23) H 12/29/21 08:03 Creatinine 0.9 mg/dL (0.7-1.2) 12/29/21 08:03 GFR Calculation 83.9 mL/min (90-130) L 12/29/21 08:03 Glucose 115 mg/dL (65-115) 12/29/21 08:03 Calculated Osmolality 289 mOsm/kg (285-295) 12/29/21 08:03 Calcium 9.7 mg/dL (8.5-10.5) 12/29/21 08:03 Urine Color Yellow (Yellow) 12/29/21 09:26 Urine Appearance Cloudy (CLEAR) 12/29/21 09:26 Urine pH 5 (5-7) 12/29/21 09:26 Ur Specific [place] 1.010 (1.005-1.030) 12/29/21 09:26 Urine Protein 1+ (Negative) H 12/29/21 09: Urine Glucose (UA) Norm (Normal) 12/29/21 09: Urine Ketones 1+ (Negative) H 12/29/21 09: Urine Blood 3+ (Negative) H 12/29/21: Urine Nitrate Positive (Negative) H 12/29/21 09: Urine Bilirubin Neg (Negative) 12/29/21 09: Urine Urobilinogen Norm mg/dL (Negative) 12/29/21 09:26 Ur Leukocyte Esterase 2+ (Negative) H 12/29/21 09:26 Urine RBC >100 /hpf (0-2) H 12/29/21 09:26 Urine WBC 25-40 /hpf (0-5) H 12/29/21 09:26 Ur Squamous Epith Cells 5-10 /hpf (0-5) H 12/29/21 09:26 Amorphous Sediment Not Reportable 12/29/21 09:26 Urine Bacteria 2+ /hpf (NONE) H 12/29/21 09:26 Other Casts Wbc cast /lpf 12/29/21 09:26 A&P Assessment and plan (1) Pyelonephritis of right kidney: Status: Acute (2) 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: Status: Acute (3) Calculus of prostatic fossa: Status: Chronic (4) Renal calculi: Status: Chronic (5) Diabetes: Status: Chronic Qualifiers: Chronic kidney disease stage: stage 2 (mild) Diabetes mellitus complication detail: with chronic kidney disease Diabetes mellitus complication status: with kidney complications Diabetes mellitus long term care administrator insulin use: with longterm use Diabetes mellitus type: type 2 Qualified Code(s): E11.22 - Type 2 diabetes mellitus with diabetic chronic kidney disease; N18.2 - Chronic kidney disease, stage 2 (mild); 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 (6) Atrial fibrillation: Status: Chronic (7) Chronic anticoagulation: coumadin Status: Chronic (8) Congestive heart failure: Status: Chronic Qualifiers: Heart failure chronicity: chronic Heart failure type: combined systolic and diastolic Qualified Code(s): I50.42 - Chronic combined systolic (congestive) and diastolic (congestive) heart failure (9) S/P TAVR (transcatheter aortic valve replacement): Status: Chronic (10) Thalassemia: MCV 61, hemoglobin stable Status: Chronic Qualifiers: Thalassemia type: unspecified type Qualified Code(s): D56.9 - Thalassemia, unspecified (11) Rheumatoid arthritis: follows with Dr Lizama Status: Chronic Qualifiers: Rheumatoid arthritis location: multiple sites Rheumatoid factor presence: with rheumatoid factor Qualified Code(s): M05.79 - Rheumatoid arthritis with rheumatoid factor of multiple sites without organ or systems involvement (12) High risk medication use: Arava and chronic steroids Status: Acute (13) Restrictive lung disease: follows with Dr Das Status: Chronic (14) AJAY (obstructive sleep apnea): not on treatment Status: Chronic (15) Body mass index [BMI] 38.0-38.9, adult: Status: Chronic Plan Inpatient admission Imipenem currently, chronically on amoxicillin 500 twice daily for prophylaxis, aware of cephalosporin allergy Blood and urine cultures Infectious disease consultation with Dr. Chang Spencer PCR was checked for completeness given presentation and is pending Continue methenamine from home supply and vitamin C for urine Continue home Flomax I reviewed the case with urology and with current findings, recommendation is for management with antibiotics presently We will see if Dr. Downing is available to see the patient from an infectious disease standpoint Lower dose of Lantus with sliding scale insulin presently Continue home carvedilol at at a slightly lower dose twice a day along with diltiazem Continue home aspirin and statin Continue home Coumadin pending INR which has been ordered Continue home Bumex with potassium supplementation as well as low-dose lisinopril Monitor urine output and renal function closely Continue home prednisone, increasing dose from 7.5 to 10 mg daily presently Monitor for need for stress dose steroids Presently holding Arava due to infection Breathing treatments if needed Oxygen therapy if needed Monitor closely for any acute changes Supportive care otherwise Coumadin assuming INR therapeutic provide appropriate VTE prophylaxis Chronically on a PPI We will keep on probiotic Continue home citalopram and hydroxyzine for anxiety Anticipate discharge home with outpatient follow-up with infectious disease and possibly urology in a few days Full code Attestations Medical Necessity Statement*: Anticipated stay greater than two midnights in a patient with a known history of multidrug-resistant organisms in the past presenting with evidence of pyelonephritis on the right with clinical findings of weakness malaise nausea and an increase in white count from 2 days ago. He has been on chronic suppression therapy with available oral medications without maintenance of a noninfective state and requires IV antibiotics and close monitoring. In addition to recurrent infections, he does have a history of endocarditis within the past couple of years and has had TAVR. Other issues and plans as noted above. Coding Level of Care Code Acute Director [facility] [employer] Diagnoses Pyelonephritis of right kidney N12 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 Z86.19 Atrial fibrillation I48.91 Chronic anticoagulation Z79.01 Congestive heart failure I50.42 Heart failure chronicity: chronic Heart failure type: combined systolic and diastolic Calculus of prostatic fossa N42.0 Renal calculi N20.0 S/P TAVR (transcatheter aortic valve replacement) Z95.2 Diabetes E11.22; N18.2; Z79.4 Chronic kidney disease stage: stage 2 (mild) Diabetes mellitus complication detail: with chronic kidney disease Diabetes mellitus complication status: with kidney complications Diabetes mellitus long term care administrator insulin use: with long term care administrator use Diabetes mellitus type: type 2 Thalassemia D56.9 Thalassemia type: unspecified type Restrictive lung disease J98.4 Rheumatoid arthritis M05.79 Rheumatoid arthritis location: multiple sites Rheumatoid factor presence: with rheumatoid factor High risk medication use Z79.899 AJAY (obstructive sleep apnea) G47.33 Body mass index [BMI] 38.0-38.9, adult Z68.38
[2021-12-29 16:21] LABS: INR 3.26 (0.8-1.2); Partial Thromboplastin Time 41.9 SECONDS (23.9-36.7)
[2021-12-29 16:50] LABS: Glucose Point of Care 190 mg/dL (70-110)
[2021-12-29] MEDS: ascorbic acid 500 mg Tablet 1000 MG PO (17:07)
[2021-12-29] MEDS: carvedilol 6.25 mg Tablet PO (17:07)
[2021-12-29] MEDS: lactobacillus 1 Tablet 4 TAB PO ×2 (17:07→20:26)
[2021-12-29] MEDS: docusate sodium 100 mg Capsule PO (17:07)
[2021-12-29] MEDS: warfarin 5 mg Tablet 7.5 MG PO (17:07)
[2021-12-29] MEDS: insulin lispro 100 unit/1 mL SUBCUT (17:09)
[2021-12-29] MEDS: insulin glargine 100 units/1 mL 25 UNIT SUBCUT (17:21)
[2021-12-29] MEDS: atorvastatin 40 mg Tablet PO (20:26)
[2021-12-29 21:17] LABS: Glucose Point of Care 161 mg/dL (70-110)
[2021-12-30] VITALS (7 sets, daily range): BP systolic 102–125; BP diastolic 56–74; PULSE 60–91; RESP 16–18; TEMP 36.7–37.2; O2SAT 95–98
[2021-12-30 05:34] LABS: Basophils # 0.1 10^3/uL (0.0-0.1); Basophils % 0.5 %; Eosinophils # 0.2 10^3/uL (0.0-0.8); Eosinophils % 1.4 %; Hematocrit 38.3 % (42.0-52.0); Hemoglobin 11.3 g/dL (11.7-16.6); Lymphocytes # 1.7 10^3/uL (0.8-4.8); Lymphocytes % 15.1 %; Mean Corpuscular HGB Conc 29.5 g/dL (30.0-36.0); Mean Corpuscular Hemoglobin 17.9 pg (28.0-34.0); Mean Corpuscular Volume 60.7 fl (80-94); Mean Platelet Volume 9.8 fL (7.4-10.4); Monocytes % 8.5 %; Neutrophils # 8.27 10^3/uL (1.8-7.7); Nucleated Red Blood Cells % 0 %; Platelet Count 191 10^3/cmm (130-400); Red Blood Count 6.31 10^6/uL (4.1-5.3); Red Cell Distribution Width 19.7 % (12.1-15.1); White Blood Count 11.2 10^3/uL (4.0-10.0)
[2021-12-30 05:49] LABS: INR 3.47 (0.8-1.2)
[2021-12-30 05:58] LABS: Alanine Aminotransferase 15 U/L (0-41); Albumin Level 3.1 g/dL (3.5-5.2); Alkaline Phosphatase 68 IU/L (40-130); Anion Gap 13.8 (5-19); Aspartate Amino Transferase 19 U/L (0-40); Blood Urea Nitrogen 25 mg/dL (8-23); Calcium 9.9 mg/dL (8.5-10.5); Carbon Dioxide 24 mmol/L (22-29); Chloride 106 mmol/L (98-107); Globulin 2.6 g/dL (1.3-4.6); Glomerular Filtration Rate 83.9 mL/min (90-130); Glucose 142 mg/dL (65-115); Magnesium 1.9 mg/dL (1.7-2.3); Osmolality Calculated 297 mOsm/kg (285-295); Phosphorus 2.1 mg/dL (2.5-4.5); Potassium 3.8 mmol/L (3.5-5.1); Sodium 140 mmol/L (136-145); Total Bilirubin 0.9 mg/dL (0.15-1.2); Total Protein 5.7 g/dL (6.6-8.7)
[2021-12-30] MEDS: predniSONE 5 mg Tablet 10 MG PO (06:10)
[2021-12-30] MEDS: aspirin 81 mg EC Tablet PO (06:10)
[2021-12-30] MEDS: pantoprazole DR 40 mg Tablet PO (06:11)
[2021-12-30] MEDS: tamsulosin 0.4 mg Capsule PO (06:11)
[2021-12-30] MEDS: insulin glargine 100 units/1 mL 25 UNIT SUBCUT ×2 (06:14→18:02)
[2021-12-30 06:26] LABS: Glucose Point of Care 161 mg/dL (70-110)
[2021-12-30 06:30] LABS: Adenovirus Not Detected (NOT DETECT); Chlamydia Pneumoniae Not Detected (NOT DETECT); Coronavirus 229E,HKU1,NL63,OC4 Not Detected (NOT DETECT); Human Metapneumovirus Not Detected (NOT DETECT); Human Rhinovirus/Enterovirus Not Detected (NOT DETECT); Influenza A Not Detected (NOT DETECT); Influenza A H1 Not Detected (NOT DETECT); Influenza A H1-2009 Not Detected (NOT DETECT); Influenza A H3 Not Detected (NOT DETECT); Influenza B Not Detected (NOT DETECT); Mycoplasma Pneumoniae Not Detected (NOT DETECT); Parainfluenza Virus Type 1 Not Detected (NOT DETECT); Parainfluenza Virus Type 2 Not Detected (NOT DETECT); Parainfluenza Virus Type 3 Not Detected (NOT DETECT); Parainfluenza Virus Type 4 Not Detected (NOT DETECT); Respiratory Syncytial Virus A Not Detected (NOT DETECT); Respiratory Syncytial Virus B Not Detected (NOT DETECT); SARS-COV-2 Not Detected (NOT DETECT)
[2021-12-30] MEDS: insulin lispro 100 unit/1 mL SUBCUT ×4 (09:15→21:42)
[2021-12-30] MEDS: lactobacillus 1 Tablet 4 TAB PO ×3 (09:16→20:30)
[2021-12-30] MEDS: potassium chloride ER 20 mEq Tablet PO (09:16)
[2021-12-30] MEDS: lisinopril 2.5 mg Tablet PO (09:16)
[2021-12-30] MEDS: docusate sodium 100 mg Capsule PO (09:16)
[2021-12-30] MEDS: bumetanide 1 mg Tablet 2 MG PO (09:16)
[2021-12-30] MEDS: ascorbic acid 500 mg Tablet 1000 MG PO ×2 (09:17→18:03)
[2021-12-30] MEDS: carvedilol 6.25 mg Tablet PO ×2 (09:17→18:04)
[2021-12-30] MEDS: citalopram 20 mg Tablet 10 MG PO (09:18)
[2021-12-30] MEDS: prenatal vitamin Capsule 1 CAP PO (09:48)
--- NOTE | 2021-12-30 10:49 | PM.PN ---
Subjective Subjective: Ry reports no complaints. Thinks he is doing pretty good. History and physical reviewed. Medications: Reviewed: Yes Vitals/I&O/Wt Last Vital Signs Temp 98.6 F 12/30/21 08:00 Pulse 68 12/30/21 10:06 Resp 18 12/30/21 10:06 BP 109/56 12/30/21 08:00 Pulse Ox 96 12/30/21 10:06 12/29/21 12/30/21 12/30/21 22:59 06:59 14:59 Intake Total 200 / 200 100 / 300 360 / 360 Balance 200 / 200 100 / 300 360 / 360 Weight last 48 hrs Weight 111.584 kg Physical Exam Narrative: General exam no distress Neck is supple Cardiovascular irregular, irregular rhythm without murmur Lungs clear to auscultation bilaterally Abdomen is soft nontender positive bowel sounds Extremities no cyanosis clubbing or edema Data : 12/30/21 05:05 12/30/21 05:05 Micro: Microbiology 12/29/21 09:26 Urine Culture - Preliminary Urine,Clean Catch Gram Negative Rods 12/29/21 14:22 Blood Culture - Preliminary Blood SPECIMEN COLLECTED 12/29/21 14:20 Blood Culture - Preliminary Blood SPECIMEN COLLECTED A&P Assessment and plan (1) Pyelonephritis of right kidney: Past history of ESBL Primaxin started on admission Await urine culture, it is currently growing gram-negative rods. Infectious disease consultation Preliminary blood culture negative Status: Acute (2) 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: See above Status: Acute (3) Calculus of prostatic fossa: Status: Chronic (4) Renal calculi: Followed by urology. No evidence of obstruction currently on CT on admission. 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 Supratherapeutic currently with an INR of 3.47 Status: Chronic (7) Chronic anticoagulation: See above Status: Chronic (8) Congestive heart failure: Compensated currently Status: Chronic Qualifiers: Heart failure chronicity: chronic Heart failure type: combined systolic and diastolic Qualified Code(s): I50.42 - Chronic combined systolic (congestive) and diastolic (congestive) heart failure (9) S/P TAVR (transcatheter aortic valve replacement): Status: Chronic (10) Thalassemia: MCV 61, hemoglobin stable Status: Chronic Qualifiers: Thalassemia type: unspecified type Qualified Code(s): D56.9 - Thalassemia, unspecified (11) Rheumatoid arthritis: follows with Dr Dl Diana immune suppressant currently Status: Chronic Qualifiers: Rheumatoid arthritis location: multiple sites Rheumatoid factor presence: with rheumatoid factor Qualified Code(s): M05.79 - Rheumatoid arthritis with rheumatoid factor of multiple sites without organ or systems involvement (12) High risk medication use: Arava and chronic steroids Status: Acute (13) Restrictive lung disease: follows with Dr Das Status: Chronic (14) AJAY (obstructive sleep apnea): not on treatment Status: Chronic (15) Body mass index [BMI] 38.0-38.9, adult: Status: Chronic Plan Noted his Covid PCR was negative. 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 use: with equipment operator intermodal yard use Diabetes mellitus complication status: with kidney complications Diabetes mellitus complication detail: with chronic kidney disease Chronic kidney disease stage: stage 2 (mild) Atrial fibrillation I48.91 Chronic anticoagulation Z79.01 Congestive heart failure I50.42 Heart failure chronicity: chronic Heart failure type: combined systolic and diastolic S/P TAVR (transcatheter aortic valve replacement) Z95.2 Thalassemia D56.9 Thalassemia type: unspecified type Rheumatoid arthritis M05.79 Rheumatoid arthritis location: multiple sites Rheumatoid factor presence: with rheumatoid factor High risk medication use Z79.899 Restrictive lung disease J98.4 AJAY (obstructive sleep apnea) G47.33 Body mass index [BMI] 38.0-38.9, adult Z68.38
[2021-12-30 11:14] LABS: Glucose Point of Care 229 mg/dL (70-110)
[2021-12-30 17:12] LABS: Glucose Point of Care 199 mg/dL (70-110)
[2021-12-30] MEDS: atorvastatin 40 mg Tablet PO (18:04)
[2021-12-30] MEDS: warfarin 2 mg Tablet 4 MG PO (18:24)
--- NOTE | 2021-12-30 19:28 | PM.CONSULT ---
Providers/Reason For Consult Consulting Physician/Specialty*: Anjana Downing MD/Infectious disease Reason for Consult*: chronic suppression Attending Physician: Mike Aguiar MD Primary Care Provider: Faustina Gonzalez NP History of Present Illness History of Present Illness Ry Loyd is a 66 year old male with history of recurrent urinary tract infections, ESBL infections most recently with Klebsiella, Pseudomonas with multiple hospitalizations for nonobstructing pyelonephritis , also on chronic suppression with amoxicillin due to h/o endocarditis, following TAVR, follows with ID in [place], , on chronic leflunomide, prednisone? 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 Currently admitted on 12/29 with pyelonephritis. Awaiting urine culture, it is currently growing gram-negative rods.No renal obstruction on CT abdomen. On a previous visit here in Sep 2021 Additional susceptibility was requested to be sent to [facility] for p.o. fosfomycin which may be a potential treatment option for subsequent episodes and/or consideration for chronic suppression, however this was never completed as specimen quantity was insufficient. Patient follows with nephrology, has been on methanamine for chronic suppression though has had breakthrough infections. Cystoscopy Nov 2021 showed Normal urethra.? No scarring.? Prostate is mildly enlarged with no significant intravesical protrusion.? Lateral lobe hypertrophy noted.? Bladder is slightly distended with mild or fine trabeculation.? No mucosal abnormalities.? No chronic cystitis changes. Review of Systems General: Reports: 10 or more systems reviewed and unremarkable except in HPI and below Const: Denies: fever(s), chills or body aches Eyes: Denies: change in vision, blurry vision or photophobia ENMT: Reports: hoarseness; Denies: throat pain, enlarged tonsils, odynophagia or nasal congestion Card: Denies: chest pain, palpitations, irregular heart rhythm, edema, swelling of feet/ankles, lightheadedness, pre-syncope, dyspnea on exertion or orthopnea Resp: Denies: dyspnea, productive cough, non-productive cough, wheezing, stridor, pain on inspiration, change in phlegm color, hemoptysis or chest congestion GI: Denies: abdominal pain, nausea, vomiting, hematemesis, coffee ground emesis, dysphagia, heartburn, diarrhea, constipation, GI cramping, change in stool character, hematochezia or melena : Denies: flank pain, dysuria, urinary frequency, urinary urgency, urinary hesitancy or hematuria Musc: Denies: neck pain, back pain, extremity pain, joint swelling, joint warmth or deformity Neuro: Denies: headache(s), numbness in extremities, weakness in extremities, sensory changes, difficulty walking, frequent falls, dizziness, vertigo, behavioral changes, Slurred speech present or seizure-like activity Psych: Denies: anxiety, depression, suicidal ideation or homicidal ideation Endo: Denies: polyuria, polydipsia, tired all the time, cold intolerance or hot flashes Aaron/Lymph: Denies: easy bruising or easy bleeding Medications/Allergies Home Medications Medication Instructions Recorded Confirmed Last Taken Type citalopram 10 mg tablet (Celexa) 10 mg PO QAM tab 12/03/19 12/29/21 12/28/21 History nitroglycerin 0.4 mg sublingual 0.4 mg SUBLINGUAL Q5M PRN 12/03/19 12/29/21 11/10/21 History tablet (Nitrostat) tamsulosin 0.4 mg capsule 0.4 mg PO DAILY@12/03/19 12/29/21 12/28/21 History pantoprazole 40 mg tablet,delayed 40 mg PO DAILY@12/25/19 12/29/21 12/28/21 History release (Protonix) potassium chloride 20 mEq 20 meq PO BID 12/25/19 12/29/21 12/28/21 History tablet,extended release aspirin 81 mg tablet,delayed 81 mg PO DAILY@10/10/20 12/29/21 12/28/21 History release carvedilol 6.25 mg tablet 9.375 mg PO BID tab 10/30/20 12/29/21 12/28/21 History atorvastatin 40 mg tablet 40 mg PO DAILY@02/17/21 12/29/21 12/28/21 History diltiazem HCl 120 mg 120 mg PO DAILY@02/17/21 12/29/21 12/28/21 History capsule,extended release 24 hr methenamine hippurate 1 gram tablet 1 g PO BID #180 tab 03/25/21 12/29/21 12/28/21 Rx ascorbic acid (vitamin C) 1,000 mg 1 g PO BID tab 04/23/21 12/29/21 12/28/21 History tablet bumetanide 2 mg tablet 2 mg PO QAM 04/23/21 12/29/21 12/28/21 History hydroxyzine pamoate 25 mg capsule 25 mg PO BID PRN 04/23/21 12/29/21 11/10/21 History amoxicillin 500 mg capsule 500 mg PO BID 06/28/21 12/29/21 12/28/21 History Lactobacillus acidophilus 20 20,000 mmu cells PO QPM 07/12/21 12/29/21 12/28/21 History billion cell capsule (Florajen Acidophilus) insulin glargine 100 unit/mL (3 See Rx Instructions .ROUTE .COMPLEX 07/12/21 12/29/21 11/10/21 History mL) subcutaneous pen (Lantus Solostar U-100 Insulin) vit no.95-ferrous 1 tab PO DAILY@06 07/12/21 12/29/21 12/28/21 History fumarate 28 mg-folic acid 800 mcg tablet ( Multivitamins) lisinopril 2.5 mg tablet 2.5 mg PO DAILY #0 10/14/21 12/29/21 12/28/21 History leflunomide 10 mg tablet 10 mg PO DAILY 11/30/21 12/29/21 12/28/21 History acetaminophen 500 mg tablet 500 mg PO Q6H PRN 12/29/21 12/29/21 12/28/21 History prednisone 5 mg tablet 7.5 mg PO QAM 12/29/21 12/29/21 12/28/21 History warfarin 5 mg tablet 7.5 mg PO QPM 12/29/21 12/29/21 12/28/21 History Allergies Allergy/AdvReac Type Severity Reaction Status Date / Time ceftriaxone [From Rocephin] Allergy Intermediate ALGY-Difficulty Verified 12/29/21 11:58 Breathing levofloxacin [From Levaquin] Allergy Mild ADR-Itching Verified 12/29/21 11:58 iodine Allergy Unknown Unknown Verified 12/29/21 11:58 clopidogrel [From Plavix] AdvReac Intermediate Unknown Verified 12/29/21 11:58 Current Medications Generic Name Dose Route Start Last Admin Trade Name Freq PRN Reason Stop Dose Admin Ascorbic Acid 1,000 mg 12/29/21 18:00 12/30/21 18:03 Ascorbic Acid 500 Mg Tablet PO 1,000 mg BID [facility] Administration Aspirin 81 mg 12/30/21 06:00 12/30/21 06:10 Aspirin 81 Mg Ec Tablet PO 81 mg DAILY@06 [facility] Administration Atorvastatin Calcium 40 mg 12/29/21 19:00 12/30/21 18:04 Atorvastatin 40 Mg Tablet PO 40 mg DAILY@19 [facility] Administration Bumetanide 2 mg 12/30/21 09:00 12/30/21 09:16 Bumetanide 1 Mg Tablet PO 2 mg DAILY [facility] Administration Carvedilol 6.25 mg 12/29/21 18:00 12/30/21 18:04 Carvedilol 6.25 Mg Tablet PO 6.25 mg BID [facility] Administration Citalopram Hydrobromide 10 mg 12/30/21 09:00 12/30/21 09:18 Citalopram 20 Mg Tablet PO 10 mg DAILY [facility] Administration Diltiazem HCl 120 mg 12/30/21 06:00 12/30/21 06:11 Diltiazem Er (24hr) 120 Mg Capsule PO Not Given DAILY@06 [facility] Docusate Sodium 100 mg 12/29/21 18:00 12/30/21 18:23 Docusate Sodium 100 Mg Capsule PO Not Given BID [facility] Imipenem/Cilastatin Sodium 500 100 mls @ 200 mls/hr 12/29/21 14:34 12/30/21 16:16 mg/ Sodium Chloride IV Infused Q6H [facility] Infusion Protocol Insulin Glargine 25 unit 12/29/21 18:00 12/30/21 18:02 Insulin Glargine 100 Units/1 Ml SUBCUT 25 unit BID@06,18 [facility] Administration Insulin Human Lispro 0 unit 12/29/21 21:00 12/29/21 21:40 Insulin Lispro 100 Unit/1 Ml SUBCUT Not Given BEDTIME [facility] Protocol Insulin Human Lispro 0 unit 12/29/21 18:00 12/30/21 18:03 Insulin Lispro 100 Unit/1 Ml SUBCUT 4 unit TIDWM [facility] Administration Protocol Lactobacillus Acidophilus 4 tab 12/29/21 15:00 12/30/21 15:05 Lactobacillus 1 Tablet PO 4 tab TID [facility] Administration Lisinopril 2.5 mg 12/30/21 09:00 12/30/21 09:16 Lisinopril 2.5 Mg Tablet PO 2.5 mg DAILY [facility] Pantoprazole Sodium 40 mg 12/30/21 06:00 12/30/21 06:[address] 40 Mg Tablet PO 40 mg DAILY@06 [facility] Administration Potassium Chloride 20 meq 12/30/21 09:00 12/30/21 09:16 Potassium Chloride Er 20 Meq Tablet PO 20 meq DAILY [facility] Administration Prednisone 10 mg 12/30/21 06:00 12/30/21 06:10 Prednisone 5 Mg Tablet PO 10 mg QAM [facility] Administration Multivit/Folic Acid/Iron 1 cap 12/30/21 09:00 12/30/21 09:48 Vitamin Capsule PO 1 cap DAILY [facility] Administration Tamsulosin HCl 0.4 mg 12/30/21 06:00 12/30/21 06:11 Tamsulosin 0.4 Mg Capsule PO 0.4 mg DAILY@06 [facility] Administration Warfarin Sodium 7.5 mg 12/29/21 18:00 12/29/21 17:07 Warfarin 5 Mg Tablet PO 7.5 mg QPM [facility] Administration PFSH Acute PFSH: Medical History Aortic stenosis Had TAVR replacement 2018 Atrial fibrillation Bilateral renal masses CHF (congestive heart failure) EF 45 by transesophageal echo January 2019 Chronic use of steroids CVA (cerebral vascular accident) Dementia Diabetes Dyslipidemia Endocarditis history of chronic viridans endocarditis, 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 Essential hypertension Gout Hx of [place] spotted fever Ischemic cardiomyopathy Left ventricular hypertrophy Obesity AJAY (obstructive sleep apnea) Pulmonary HTN Recurrent UTI Multidrug-resistant organisms Renal calculi Restrictive lung disease Rheumatoid arthritis Thalassemia Surgical History H/O lithotripsy S/P TAVR (transcatheter aortic valve replacement) (~2018) Family History Mother Stroke Father Myocardial infarction Other CAD (coronary artery disease) Chronic kidney disease (CKD) Diabetes Hypertension Social History Quit status (tobacco): has quit using tobacco Year quit tobacco: 2019 - Chewing Tobacco Former quit date comment: Hx of 1/2 can x 50 Years Second hand smoke exposure: No Alcohol intake: former Lives independently: No Household members: spouse Marital status: Current occupational status: retired and disabled Current gender identity: Male Vitals/I&O/Wt Last Vital Signs Temp 98.6 F 12/30/21 08:00 Pulse 76 12/30/21 15:32 Resp 17 12/30/21 15:32 BP 125/74 12/30/21 15:32 Pulse Ox 96 12/30/21 15:32 12/30/21 12/30/21 12/30/21 06:59 14:59 22:59 Intake Total 100 / 300 700 / 700 100 / 800 Output Total 2540 / 2540 Balance 100 / 300 700 / 700 -2440 / -1740 Weight last 48 hrs Weight 111.584 kg Physical Exam Narrative: GEN: Awake, alert and oriented, lying in bed comfortably CVS: S1S2 N RS: CTA B/L Abd: Soft, nt/nd , bs+ 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 RX --------- ------ * Amikacin <=16 S * Amoxicillin/Clavulanate <=8/4 S * Ampicillin >16 R * Ampicillin/Sulbactam >16/8 R * Aztreonam >16 R * Cefepime >16 R * Ceftriaxone >32 R * Cefuroxime >16 R * Ciprofloxacin >2 R * Gentamicin <=2 S * Imipenem <=1 S * Levofloxacin <=2 S * Nitrofurantoin 64 I * Tetracycline <=4 S * Trimethoprim/Sulfamethoxazole >2/38 R * Piperacillin/Tazobactam <=16 S Frances: 11/05/21 Status: COMP Req #: [id number] Recd: 11/05/[address]: Jorge Padgett , [facility]- Src: Urine CC SpDesc: Ordered: UC Procedure Result Verified Site Urine Culture Final 11/07/21 Organism 1 Klebsiella pneumonia esbl [place] Count 40,000 - 50,000 CFU/ml [facility] RX --------- ------ * Amikacin <=16 S * Amoxicillin/Clavulanate <=8/4 S * Ampicillin >16 R * Ampicillin/Sulbactam >16/8 R * Aztreonam >16 R * Cefepime >16 R * Ceftriaxone >32 R * Cefuroxime >16 R * Ciprofloxacin >2 R * Gentamicin <=2 S * Imipenem <=1 S * Levofloxacin >4 R * Nitrofurantoin 64 I * Tetracycline <=4 S * Trimethoprim/Sulfamethoxazole >2/38 R * Piperacillin/Tazobactam <=16 S Frances: 10/14/21 Status: COMP Req #: [id number] Recd: 10/14/[address]: Elian Buitrago MD Src: Blood SpDesc: Ordered: Bcult Procedure Result Verified Site Blood Culture Final 10/19/21 2 OF 3 BOTTLES POSITIVE. DIRECT GRAM STAIN: GRAM NEGATIVE RODS Organism 1 Klebsiella pneumonia esbl Growth IN 2 BOTTLES Gram Stain Charge Charge for Gram Stain CRITICAL RESULT YES/NO: YES CRITICAL CALLED BY: SARA TO AND READ BACK BY: [facility] DATE: 10/16/21 TIME: 623 [facility] RX --------- ------ * Amikacin <=16 S * Amoxicillin/Clavulanate <=8/4 S * Ampicillin >16 R * Ampicillin/Sulbactam >16/8 R * Aztreonam >16 R * Cefepime >16 R * Ceftriaxone >32 R * Cefuroxime >16 R * Ciprofloxacin >2 R * Gentamicin <=2 S * Imipenem <=1 S * Levofloxacin <=2 S * Tetracycline <=4 S * Trimethoprim/Sulfamethoxazole >2/38 R * Piperacillin/Tazobactam <=16 S 10/14/21 Status: COMP Req #: [id number] Recd: 10/14/[address]: Sheri Mobley MD Src: Urine CC SpDesc: Ordered: UC Procedure Result Verified Site Urine Culture Final 10/16/21 Organism 1 Klebsiella pneumonia esbl [place] Count >100,000 CFU/ml [facility] RX --------- ------ * Amikacin <=16 S * Amoxicillin/Clavulanate 16/8 I * Ampicillin >16 R * Ampicillin/Sulbactam >16/8 R * Aztreonam >16 R * Cefepime >16 R * Ceftriaxone >32 R * Cefuroxime >16 R * Ciprofloxacin >2 R * Gentamicin <=2 S * Imipenem <=1 S * Levofloxacin 4 I * Nitrofurantoin 64 I * Tetracycline 8 I * Trimethoprim/Sulfamethoxazole >2/38 R * Piperacillin/Tazobactam <=16 S Frances: 07/12/21 Status: COMP Req #: [id number] Recd: 07/12/[address]: Raymon Boyce DO Src: Urine CC SpDesc: Ordered: UC Procedure Result Verified Site Urine Culture Final 07/14/21 Organism 1 Klebsiella pneumonia esbl [place] Count >100,000 CFU/ml DAY 2 [facility] RX --------- ------ * Amikacin <=16 S * Amoxicillin/Clavulanate <=8/4 S * Ampicillin >16 R * Ampicillin/Sulbactam >16/8 R * Aztreonam >16 R * Cefepime >16 R * Ceftriaxone >32 R * Cefuroxime >16 R * Ciprofloxacin >2 R * Gentamicin <=2 S * Imipenem <=1 S * Levofloxacin 4 I * Nitrofurantoin 64 I * Tetracycline >8 R * Trimethoprim/Sulfamethoxazole >2/38 R * Piperacillin/Tazobactam <=16 S oll: 03/07/21 Status: COMP Req #: [id number] Recd: 03/07/[address]: Rajeev Zepeda DO Src: Urine CC SpDesc: Ordered: UC Procedure Result Verified Site Urine Culture Final 03/09/21-856 Organism 1 Klebsiella pneumonia esbl [place] Count >100,000 CFU/ml DAY 2 [facility] RX --------- ------ * Amikacin <=16 S * Amoxicillin/Clavulanate <=8/4 S * Ampicillin >16 R * Ampicillin/Sulbactam >16/8 R * Aztreonam >16 R * Cefepime >16 R * Ceftriaxone >32 R * Cefuroxime >16 R * Ciprofloxacin >2 R * Gentamicin <=2 S * Imipenem <=1 S * Levofloxacin >4 R * Nitrofurantoin >64 R * Tetracycline >8 R * Trimethoprim/Sulfamethoxazole >2/38 R * Piperacillin/Tazobactam <=16 S Frances: 02/17/21 Status: COMP Req #: [id number] Recd: 02/17/[address]: Raymon Boyce DO Src: Urine CC SpDesc: Ordered: UC Procedure Result Verified Site Urine Culture Final 02/19/21 Organism 1 Klebsiella pneumonia esbl [place] Count >100,000 CFU/ml CRITICAL RESULT YES/NO: YES CRITICAL CALLED BY: TOMMY TO AND READ BACK BY: DR AGUIAR DATE: 02/19/21 TIME: 1216 [facility] RX --------- ------ * Amikacin <=16 S * Amoxicillin/Clavulanate <=8/4 S * Ampicillin >16 R * Ampicillin/Sulbactam >16/8 R * Aztreonam >16 R * Cefepime >16 R * Ceftriaxone >32 R * Cefuroxime >16 R * Ciprofloxacin >2 R * Gentamicin <=2 S * Imipenem <=1 S * Levofloxacin <=2 S * Nitrofurantoin 64 I * Tetracycline <=4 S * Trimethoprim/Sulfamethoxazole >2/38 R * Piperacillin/Tazobactam <=16 S Other data: CT ABDOMEN AND PELVIS NONCONTRAST HISTORY: flank pain, RIGHT TECHNIQUE: Imaging performed through the abdomen and pelvis. Coronal and sagittal reformats are submitted.? All CT scans at [facility] use at least one of these dose optimization techniques: automated exposure control; mA and/or kV adjustment per patient size (includes targeted exams where dose is matched to clinical indication); or iterative reconstruction. ? DLP: 2243.96 mGy.cm COMPARISON: 10/14/2021 Lower thorax: Motion artifact at the lung bases. Mild enlargement of the heart. Liver: Normal size liver. No mass or bile duct dilatation. Gallbladder: Cholelithiasis without evidence for acute cholecystitis. No bile duct dilatation. Pancreas: Normal size and attenuation. Normal pancreatic duct. No pancreatitis or mass. Spleen: Normal size with granulomata. Adrenal glands: Normal. No mass. Right kidney: Numerous masses with variable density have been previously described. There is mild perinephric stranding. Perinephric stranding has increased from the lower pole. No hydronephrosis. Left kidney: Perinephric stranding with numerous indeterminate masses as previously described. These are not completely cystic masses. Nonobstructing calcifications in the renal pelvis. Ureter is not dilated. Aorta: Mild atherosclerosis abdominal aorta with no aneurysm. No free fluid, intraperitoneal air or significant lymphadenopathy. GI tract: No appendicitis. Mild diffuse fecal retention and constipation. No obstructive pattern. Numerous diverticula in the distal colon. No acute inflammation. Abdominal wall: Ventral abdominal wall hernia contains fat only. Pelvis: Urinary bladder is moderately well distended. No intraluminal calcification. Prostate gland is not enlarged but there are numerous calcifications. Osseous structures: No destructive bone lesions. CT/CT kidney stone [id number] IMPRESSION: ? 1.? No renal obstruction. 2.? Bilateral perinephric stranding. Increased amount of stranding around the lower pole of the RIGHT kidney. Correlate for possible pyelonephritis. 3.? Indeterminate bilateral renal masses have been previously described. 4.? Cholelithiasis without acute cholecystitis. 5.? Normal appendix. 6.? Diverticulosis without acute diverticulitis. ? A&P Assessment and plan (1) Recurrent UTI: Patient with recurrent UTIs, recurrent pyelonephritis and septicemia of urinary source with Klebsiella pneumoniae ESBL isolate Recurrent infections in 2020 in january, february,march, june, Nov (including septicemia) ,oct 2021, nov 2021 and now in 12/2021 no gross tsructural abnormalities on cystoscopy. CT with non obstructing renal calculi and known cysts. Breakthrough infections on methanamine suppression. Variable susceptibility of isolates as above. Urine specimen sent out to [facility] directly for fosfomycin susceptibility as unable to perform at [facility] micro lab- hopefully we will be able to get susceptibilities this time. For now, continue treatment with Primaxin as already started for acute pyelonpehirtis. Follow urine cx, Discussed with that given significant morbidity as a result of recurrent UTIs and h/o multiple severe infections including pyelopnephritis and septicemia, chronic suppression can be considered. We will plan to start patient after current hospitalization on fosfomycin suppression presumptively while awaiting susceptibilities. Status: Chronic (2) Pyelonephritis of right kidney: Status: Acute Coding Level of Care Code Acute Civil Service Clerk for maciej Jade Diagnoses Recurrent UTI N39.0 Pyelonephritis of right kidney N12
[2021-12-30] MEDS: hyDROXYzine 25 mg Capsule PO (20:30)
[2021-12-30 21:27] LABS: Glucose Point of Care 265 mg/dL (70-110)
[2021-12-31] VITALS (9 sets, daily range): BP systolic 90–136; BP diastolic 55–78; PULSE 62–96; RESP 14–18; TEMP 36.7–37.3; O2SAT 93–99
[2021-12-31] MEDS: acetaminophen 500 mg Tablet PO (04:43)
[2021-12-31 06:14] LABS: INR 4.39 (0.8-1.2)
[2021-12-31] MEDS: dilTIAZem ER (24HR) 120 mg Capsule PO (06:17)
[2021-12-31] MEDS: predniSONE 5 mg Tablet 10 MG PO (06:18)
[2021-12-31] MEDS: pantoprazole DR 40 mg Tablet PO (06:18)
[2021-12-31] MEDS: aspirin 81 mg EC Tablet PO (06:18)
[2021-12-31] MEDS: tamsulosin 0.4 mg Capsule PO (06:18)
[2021-12-31] MEDS: insulin glargine 100 units/1 mL 25 UNIT SUBCUT ×2 (06:20→17:15)
[2021-12-31 07:10] LABS: Glucose Point of Care 104 mg/dL (70-110)
[2021-12-31] MEDS: lactobacillus 1 Tablet 4 TAB PO ×2 (08:18→15:52)
[2021-12-31] MEDS: ascorbic acid 500 mg Tablet 1000 MG PO ×2 (08:18→17:10)
[2021-12-31] MEDS: citalopram 20 mg Tablet 10 MG PO (08:19)
[2021-12-31] MEDS: potassium chloride ER 20 mEq Tablet PO (08:20)
[2021-12-31] MEDS: carvedilol 6.25 mg Tablet PO ×2 (08:20→17:10)
--- NOTE | 2021-12-31 08:51 | PC.NURSE ---
pt BP was 90/55 manual this AM, upon recheck shortly after BP was still low, 98/70, Dr notified of BP med being held and inquired as to if PO Bumex was to be held or not, Dr order to hold today.
[2021-12-31] MEDS: prenatal vitamin Capsule 1 CAP PO (08:54)
[2021-12-31 12:22] LABS: Glucose Point of Care 220 mg/dL (70-110)
[2021-12-31] MEDS: insulin lispro 100 unit/1 mL SUBCUT (12:29)
--- NOTE | 2021-12-31 13:09 | PM.PN ---
Subjective Subjective: Ry reports he is doing okay. No specific concerns currently. Denies any pain or shortness of breath. Medications: Reviewed: Yes Vitals/I&O/Wt Last Vital Signs Temp 98.7 F 12/31/21 12:00 Pulse 62 12/31/21 12:59 Resp 18 12/31/21 12:59 BP 96/63 12/31/21 12:00 Pulse Ox 99 12/31/21 12:59 12/30/21 12/31/21 12/31/21 22:59 06:59 14:59 Intake Total 200 / 900 500 / 1400 460 / 460 Output Total 2540 / 2540 400 / 2940 Balance -2340 / -1640 100 / -1540 460 / 460 Physical Exam Narrative: General exam no distress Neck is supple Cardiovascular irregular, irregular rhythm without murmur Lungs clear to auscultation bilaterally Abdomen is soft nontender positive bowel sounds Extremities no cyanosis clubbing or edema Data : 12/30/21 05:05 12/30/21 05:05 Micro: Microbiology 12/29/21 09:26 Urine Culture - Final Urine,Clean Catch Klebsiella pneumonia esbl 12/29/21 14:22 Blood Culture - Preliminary Blood NEGATIVE TO DATE 12/29/21 14:20 Blood Culture - Preliminary Blood NEGATIVE TO DATE A&P Assessment and plan (1) Recurrent UTI: Has history of multiple recurrent UTIs, usually ESBL Urine culture has grown Klebsiella, ESBL, sensitive to Primaxin. He would be a good candidate for ertapenem for 10 days IV outpatient. Appreciate ID consult. Trying to get fosfomycin for treatment as an outpatient for suppression. Currently on Primaxin. Blood cultures negative to date. No evidence of urinary obstruction per CT. Status: Chronic (2) Pyelonephritis of right kidney: Status: Acute Plan Diabetes mellitus. On sliding scale insulin Atrial fibrillation, pharmacy adjusting Coumadin. Currently supratherapeutic. History of TAVR Thalassemia History of rheumatoid arthritis, Arava held Restrictive lung disease, overall stable Potential discharge home soon if midline can be placed. Attestations Medical Necessity Statement*: Needs continued hospitalization for IV antibiotics secondary to UTI with ESBL organism. Coding Level of Care Code Acute Manager Storage for John Jade Diagnoses Recurrent UTI N39.0 Pyelonephritis of right kidney N12
--- NOTE | 2021-12-31 13:27 | PC.PHAR ---
PHARMACY WARFARIN CONSULT: PT HOME DOSE 7.5 DAILY. 12/29: INR 3.26 - CONTINUE HOME DOSE 12/30: INR 3.47 - SLIGHT INCREASE, STILL ABOVE GOAL, GIVE 4 MG ( ~1/2 DOSE) 12/31: INR 4.39 - HOLD
--- NOTE | 2021-12-31 15:49 | SUR.PREOP ---
FOR MIDLINE INSERTION
--- NOTE | 2021-12-31 16:22 | PM.DCS ---
Discharge Providers Date of Admission: 12/29/21 13:04 Date of Discharge: December 31, 2021 Attending Provider at Admission: Di Pugh MD Attending Provider at Discharge: Mike Davenport MD Primary Care Provider: Faustina Gonzalez NP Diagnoses at Discharge Discharge Diagnosis (1) Recurrent UTI: Status: Chronic Permanent problem details: Multidrug-resistant organisms (2) Pyelonephritis of right kidney: Status: Acute Reason for Visit Reason for Visit: chills, SOB Hospital Course Hospital Course Ry is a 66-year-old white male that presented with right flank pain, weakness. He has had multiple episodes of UTI causing encephalopathy and even sepsis from ESBL. He was placed in the hospital on Primaxin and monitored closely. During his hospital stay his urine culture ultimately grew Klebsiella sensitive to Primaxin. Infectious disease saw him while in the hospital and recommended trial of fosfomycin to try to prevent infection. This will be arranged by their service. On December 31 it was thought he had improved enough he could discharge her to home. He was afebrile, white blood cell count had decreased tremendously, and blood cultures were negative to date. A dose of ertapenem was given and he will receive 9 more doses as an outpatient. This was arranged prior to his discharge. It should be noted that his INR was elevated prior to leaving and he was instructed not to take his Coumadin. A repeat INR will be done tomorrow, and pharmacy will give Coumadin instructions on when repeat INR should be done. This will ultimately be turned over to his primary on Monday. Physical Exam Narrative: General exam no distress Neck is supple no lymphadenopathy Cardiovascular regular rate and rhythm Lungs clear Abdomen is soft, positive bowel sounds Extremities no cyanosis clubbing or edema Discharge Data Studies Completed and Pending Completed Studies During Hospitalization Category Date Time Status CT kidney stone [id number] Stat Cat Scan 12/29/21 10:17 Completed XR chest 1V portable [id number] Urgent Exams 12/29/21 02:09 Completed Pending at discharge Category Date Time Status BMP [Basic Metabolic Panel] AM LABS Lab 01/01/22 04:00 Ordered Blood Culture Routine Lab 12/29/21 14:22 Results CBC Auto Diff [Complete Blood Count w/Auto] AM LABS Lab 01/01/22 04:00 Ordered Miscellaneous Test Routine Lab 12/29/21 09:26 Received Prothrombin Time INR AM LABS Lab 01/01/22 04:00 Ordered Radiology Impressions Chest X-Ray 12/29/21 02:09 IMPRESSION: New opacity in the left costophrenic angle. Likely this is atelectasis. Acute inflammatory process and not excluded. Follow-up chest x-ray recommended. Abdomen/Pelvis CT 12/29/21 10:17 IMPRESSION: 1. No renal obstruction. 2. Bilateral perinephric stranding. Increased amount of stranding around the lower pole of the RIGHT kidney. Correlate for possible pyelonephritis. 3. Indeterminate bilateral renal masses have been previously described. 4. Cholelithiasis without acute cholecystitis. 5. Normal appendix. 6. Diverticulosis without acute diverticulitis. Laboratory Results WBC 11.2 10^3/uL (4.0-10.0) H 12/30/21 05:05 RBC 6.31 10^6/uL (4.1-5.3) H 12/30/21 05:05 Hgb 11.3 g/dL (11.7-16.6) L 12/30/21 05:05 Hct 38.3 % (42.0-52.0) L 12/30/21 05:05 MCV 60.7 fl (80-94) L 12/30/21 05:05 MCH 17.9 pg (28.0-34.0) L 12/30/21 05:05 MCHC 29.5 g/dL (30.0-36.0) L 12/30/21 05:05 RDW 19.7 % (12.1-15.1) H 12/30/21 05:05 Plt Count 191 10^3/cmm (130-400) 12/30/21 05:05 MPV 9.8 fL (7.4-10.4) 12/30/21 05:05 Neut % (Auto) 74.0 % 12/30/21 05:05 Lymph % (Auto) 15.1 % 12/30/21 05:05 [place] % (Auto) 8.5 % 12/30/21 05:05 Eos % (Auto) 1.4 % 12/30/21 05:05 Baso % (Auto) 0.5 % 12/30/21 05:05 Neut # (Auto) 8.27 10^3/uL (1.8-7.7) H 12/30/21 05:05 Lymph # (Auto) 1.7 10^3/uL (0.8-4.8) 12/30/21 05:05 [place] # (Auto) 1.0 10^3/uL (0.2-0.9) H 12/30/21 05:05 Eos # (Auto) 0.2 10^3/uL (0.0-0.8) 12/30/21 05:05 Baso # (Auto) 0.1 10^3/uL (0.0-0.1) 12/30/21 05:05 Nucleated RBC % (auto) 0 % 12/30/21 05:05 Nucleated RBCs # 0.0 /100WBC 12/30/21 05:05 PT 42.50 SECONDS (12.1-14.9) H 12/31/21 05:38 INR 4.39 (0.8-1.2) H 12/31/21 05:38 APTT 41.9 SECONDS (23.9-36.7) H 12/29/21 15:58 Sodium 140 mmol/L (136-145) 12/30/21 05:05 Potassium 3.8 mmol/L (3.5-5.1) 12/30/21 05:05 Chloride 106 mmol/L (98-107) 12/30/21 05:05 Carbon Dioxide 24 mmol/L (22-29) 12/30/21 05:05 Anion Gap 13.8 (5-19) 12/30/21 05:05 BUN 25 mg/dL (8-23) H 12/30/21 05:05 Creatinine 0.9 mg/dL (0.7-1.2) 12/30/21 05:05 GFR Calculation 83.9 mL/min (90-130) L 12/30/21 05:05 Glucose 142 mg/dL (65-115) H 12/30/21 05:05 POC Glucose 220 mg/dL (70-110) H 12/31/21 12:19 Calculated Osmolality 297 mOsm/kg (285-295) H 12/30/21 05:05 Calcium 9.9 mg/dL (8.5-10.5) 12/30/21 05:05 Phosphorus 2.1 mg/dL (2.5-4.5) L 12/30/21 05:05 Magnesium 1.9 mg/dL (1.7-2.3) 12/30/21 05:05 Total Bilirubin 0.9 mg/dL (0.15-1.2) 12/30/21 05:05 AST 19 U/L (0-40) 12/30/21 05:05 ALT 15 U/L (0-41) 12/30/21 05:05 Alkaline Phosphatase 68 IU/L (40-130) 12/30/21 05:05 Total Protein 5.7 g/dL (6.6-8.7) L 12/30/21 05:05 Albumin 3.1 g/dL (3.5-5.2) L 12/30/21 05:05 Globulin 2.6 g/dL (1.3-4.6) 12/30/21 05:05 Urine Color Yellow (Yellow) 12/29/21 09: Urine Appearance Cloudy (CLEAR) 12/29/21 09: Urine pH 5 (5-7) 12/29/21 09: Ur Specific [place] 1.010 (1.005-1.030) 12/29/21 09: Urine Protein 1+ (Negative) H 12/29/21: Urine Glucose (UA) Norm (Normal) 12/29/21 09: Urine Ketones 1+ (Negative) H 12/29/21: Urine Blood 3+ (Negative) H 12/29/21 09:26 Urine Nitrate Positive (Negative) H 12/29/21 09: Urine Bilirubin Neg (Negative) 12/29/21 09: Urine Urobilinogen Norm mg/dL (Negative) 12/29/21 09: Ur Leukocyte Esterase 2+ (Negative) H 12/29/21 09:26 Urine RBC >100 /hpf (0-2) H 12/29/21 09: Urine WBC 25-40 /hpf (0-5) H 12/29/21 09:26 Ur Squamous Epith Cells 5-10 /hpf (0-5) H 12/29/21 09:26 Amorphous Sediment Not Reportable 12/29/21: Urine Bacteria 2+ /hpf (NONE) H 12/29/21: Other Casts Wbc cast /lpf 12/29/21 09:26 Coronavirus 229E (PCR) Not detected (NOT DETECT) 12/30/21 04:40 SARS-CoV-2 (PCR) Not detected (NOT DETECT) 12/30/21 04:40 SARS-CoV-2 RNA (RT-PCR) Cancelled 12/29/21 02:25 Vitals Last Vital Signs Temp 99 F 12/31/21 16:00 Pulse 96 12/31/21 16:00 Resp 14 12/31/21 16:00 BP 96/63 12/31/21 12:00 Pulse Ox 95 12/31/21 16:00 Discharge Plan Discharge Patient Disposition: Home Condition: Stable Prescriptions: New fosfomycin tromethamine 3 gram packet 1 packet PO Q3D 60 Days Qty: 20 2RF Continued tamsulosin 0.4 mg capsule 0.4 mg PO DAILY@06 0RF citalopram [Celexa] 10 mg tablet 10 mg PO QAM 0RF nitroglycerin [Nitrostat] 0.4 mg tablet, sublingual 0.4 mg SUBLINGUAL Q5M PRN (Reason: Chest Pain) 0RF carvedilol 6.25 mg tablet 9.375 mg PO BID 0RF Rx Instructions: (1.5 tab =9.375mg) bumetanide 2 mg tablet 2 mg PO QAM 0RF ascorbic acid (vitamin C) 1,000 mg tablet 1 g PO BID 0RF potassium chloride 20 mEq Tablet Extended Release 20 meq PO BID 0RF pantoprazole [Protonix] 40 mg Tablet,Delayed Release (Dr/Ec) 40 mg PO DAILY@06 0RF aspirin 81 mg Tablet,Delayed Release (Dr/Ec) 81 mg PO DAILY@06 0RF Lantus Solostar U-100 Insulin 100 unit/mL (3 mL) insulin pen See Rx Instructions .ROUTE .COMPLEX 0RF Rx Instructions: 40 units qam and 30 units qpm Florajen Acidophilus 20 billion cell Capsule 20,000 mmu cells PO QPM 0RF PNV cmb#95-ferrous fumarate-FA [ Multivitamins] 28 mg iron- 800 mcg Tablet 1 tab PO DAILY@06 0RF atorvastatin 40 mg tablet 40 mg PO DAILY@19 0RF diltiazem HCl 120 mg capsule,extended release 24hr 120 mg PO DAILY@06 0RF hydroxyzine pamoate 25 mg capsule 25 mg PO BID PRN (Reason: Anxiety) 0RF lisinopril 2.5 mg Tablet 2.5 mg PO DAILY Qty: 0 0RF acetaminophen 500 mg Tablet 500 mg PO Q6H PRN (Reason: Pain) 0RF prednisone 5 mg tablet 7.5 mg PO QAM 0RF warfarin 5 mg tablet 7.5 mg PO QPM 0RF Discontinued leflunomide 10 mg tablet 10 mg PO DAILY 0RF methenamine hippurate 1 gram tablet 1 g PO BID Qty: 180 3RF Hold Instructions: Resume on 10/23/21. Rx Instructions: with 1 g vitamin C each dose amoxicillin 500 mg capsule 500 mg PO BID 0RF Hold Instructions: Resume on 10/23/21. Discharge Orders: Discharge Order (Routine); Ordered 12/31/21 Ordered By: Mike Davenport Referrals: Faustina Gonzalez NP [Primary Care Provider] - 01/06/22 11:45 am Anjana Downing MD [Hospitalist] - 2 weeks Discharge Diet: Usual diet Discharge Activity: Increase activity as tolerated Patient Instructions: Opioid Safety Activity Restrictions/Additional Instructions: Please arrange follow-up with Dr. Berkowitz Follow-up with Dr. Downing in approximately 2 weeks 9 more days of IV antibiotic, ertapenem. Then may remove mid line Return for any worsening Hold Coumadin tonight. INR tomorrow. When he shows up for outpatient infusion of ertapenem. Pharmacy to adjust and recommend next INR. Pharmacy will adjust dose. Please do not take our Coumadin until you talk with them. Discharge Attestations Time Spent in Discharge Care*: greater than 30 min Status at Discharge: Cognitive status at discharge: cognitively intact, Behavioral status at discharge: cooperative, Quality Metrics Clinical Quality Measures [ No reported AMI, CVA or VTE this stay] Coding Level of Care Code Acute Chg FW DC note Diagnoses Recurrent UTI N39.0 Pyelonephritis of right kidney N12
[2021-12-31] MEDS: ertapenem 1,000 MG in sodium chloride 0.9% (plus) 100 ML 200 MG IV (16:49)
[2021-12-31] MEDS: docusate sodium 100 mg Capsule PO (17:10)
--- NOTE | 2021-12-31 17:48 | PM.PN ---
Subjective Subjective: Infectious disease progress note: urine isolate identified as ESBL klebsiella pneumoniae planned for d/c home today with iv ertapenem Medications: Reviewed: Yes Vitals/I&O/Wt Last Vital Signs Temp 99 F 12/31/21 16:00 Pulse 96 12/31/21 16:00 Resp 14 12/31/21 16:00 BP 96/63 12/31/21 12:00 Pulse Ox 95 12/31/21 16:00 12/31/21 12/31/21 12/31/21 06:59 14:59 22:59 Intake Total 500 / 1400 700 / 700 100 / 800 Output Total 400 / 2940 Balance 100 / -1540 700 / 700 100 / 800 Physical Exam Narrative: GEN: Awake, alert and oriented, lying in bed comfortably CVS: S1S2 N RS: CTA B/L Abd: Soft, nt/nd , bs+ PROGRAMMING MANAGER: no focal neuro deficits Data : 12/30/21 05:05 12/30/21 05:05 Micro: Microbiology 12/29/21 09:26 Urine Culture - Final Urine,Clean Catch Klebsiella pneumonia esbl 12/29/21 14:22 Blood Culture - Preliminary Blood NEGATIVE TO DATE 12/29/21 14:20 Blood Culture - Preliminary Blood NEGATIVE TO DATE A&P Assessment and plan (1) Recurrent UTI: Patient with recurrent UTIs, recurrent pyelonephritis and septicemia of urinary source with Klebsiella pneumoniae ESBL isolate Recurrent infections in 2020 in january, february,march, june, Sep (including septicemia) ,oct 2021, nov 2021 and now in 12/2021 no gross tsructural abnormalities on cystoscopy. CT with non obstructing renal calculi and known cysts. Breakthrough infections on methanamine suppression. Agree with ertapenem x 10 days as already started for acute pyelonpehirtis. Discussed with patient and that given significant morbidity as a result of recurrent UTIs and h/o multiple severe infections including pyelopnephritis and septicemia, chronic suppression can be considered. Once patient completes course of 10 days of iv ertapenem, will plan to start him on fosfomycin 3gm every 72 hrs for chronic suppression while awaiting susceptibility results. Prior auth has been initiated with insurance company for the same. Of the available insurance covered options, cephalosporins, bactrim will not be good options as isolate is resistant. Status: Chronic (2) Pyelonephritis of right kidney: Status: Acute Attestations Medical Necessity Statement*: per admitting Coding Level of Care Code Acute Account Consultant for Chg Fwd Diagnoses Recurrent UTI N39.0 Pyelonephritis of right kidney N12
--- NOTE | 2021-12-31 19:38 | PC.NURSE ---
IV removed intact. Patient tolerated well. Patient is A&Ox3. Respirations even and non-labored on room air. Reviewed patient's discharge with patient and at this time. Patient and verbalized understanding of follow up appointment tomorrow at 11 for infusion of antibiotics. Patient verbalized understanding of when to start new antibiotic's and about follow up appointments. Patient assisted into wheel chair and pushed to private car.
== END 2021-12-31 18:30 | disposition home or self-care (01) | DRG 690 ==
LOC: ER 06:50 → MEDSURG 14:51
PROVIDERS: Family Medicine; Student in an Organized Health Care Education/Training Program; Admitting Provider Hospitalist; Emergency Provider Family Medicine; PCP Nurse Practitioner Family; Visit Provider Internal Medicine
DX: N10 Acute pyelonephritis (principal); I13.0 Hypertensive heart and chronic kidney disease with heart failure and stage 1 through stage 4 chronic kidney disease, or unspecified chronic kidney disease; I50.42 Chronic combined systolic (congestive) and diastolic (congestive) heart failure; Z87.440 Personal history of urinary (tract) infections; N39.0 Urinary tract infection, site not specified; I48.91 Unspecified atrial fibrillation; N28.9 Disorder of kidney and ureter, unspecified; N18.2 Chronic kidney disease, stage 2 (mild); E11.22 Type 2 diabetes mellitus with diabetic chronic kidney disease; Z79.52 Long term (current) use of systemic steroids; Z86.73 Personal history of transient ischemic attack (TIA), and cerebral infarction without residual deficits; F03.90 Unspecified dementia, unspecified severity, without behavioral disturbance, psychotic disturbance, mood disturbance, and anxiety; E78.5 Hyperlipidemia, unspecified; M10.9 Gout, unspecified; I25.5 Ischemic cardiomyopathy; E66.9 Obesity, unspecified; Z68.34 Body mass index [BMI] 34.0-34.9, adult; I27.20 Pulmonary hypertension, unspecified; Z87.442 Personal history of urinary calculi; M05.9 Rheumatoid arthritis with rheumatoid factor, unspecified; D56.9 Thalassemia, unspecified; Z79.01 Long term (current) use of anticoagulants; Z79.82 Long term (current) use of aspirin; R79.1 Abnormal coagulation profile; B96.1 Klebsiella pneumoniae [K. pneumoniae] as the cause of diseases classified elsewhere; G47.33 Obstructive sleep apnea (adult) (pediatric); N42.0 Calculus of prostate; Z79.2 Long term (current) use of antibiotics; Z87.891 Personal history of nicotine dependence
CPT/HCPCS: 36415; 36416; 36569; 71045; 74176; 80048; 80053; 81001; 82962; 83735; 83880; 84100; 84484; 85025; 85610; 85730; 87040; 87077; 87086; 87186; 87635; 93005; 96372; 99283; 99285; C1751; J0743; J1335; J1815 ×2; J7040; J7512

== ENCOUNTER 2022-01-01 06:00 | Day surgery (SDC) | payer MEDICARE, OTHER, SELFPAY ==
[2022-01-01] MEDS: ertapenem 1,000 MG in sodium chloride 0.9% (plus) 100 ML 200 MG IV (11:03)
[2022-01-01 11:05] VITALS: BP 116/85; PULSE 96; RESP 18; TEMP 36.1; O2SAT 97
== END 2022-01-01 18:00 | disposition home or self-care (01) ==
LOC: GILAB 01-03 15:40
PROVIDERS: PCP Nurse Practitioner Family; Visit Provider Internal Medicine
DX: N39.0 Urinary tract infection, site not specified (principal)
CPT/HCPCS: 36416; 36592; 82962; 85610; 96365; J1335

== ENCOUNTER 2022-01-02 11:38 | Outpatient (CLI) | payer MEDICARE, OTHER, SELFPAY ==
[2022-01-01 11:05] VITALS: BP 116/85; PULSE 96; RESP 18; TEMP 36.1; O2SAT 97
[2022-01-01 11:41] LABS: Glucose Point of Care 142 mg/dL (70-110)
[2022-01-01 12:05] VITALS: BMI 34.7
[2022-01-01 12:06] VITALS: BP 129/83; PULSE 97; RESP 18; TEMP 35.8; O2SAT 98
[2022-01-01 12:13] LABS: INR 3.05 (0.8-1.2)
--- NOTE | 2022-01-01 12:27 | SUR.PHASEI ---
INR was drawn on patient upon arrival, results were reviewed and Pharmacist advised nurse to have patient to take 5-6 mg coumadin at next dose. INR to be checked again on 01/02 and possible dose adjustment.
[2022-01-02] MEDS: ertapenem 1,000 MG in sodium chloride 0.9% (plus) 100 ML 200 MG IV (11:03)
[2022-01-02 11:08] VITALS: BP 97/75; PULSE 86; RESP 18; TEMP 36.8; O2SAT 97
[2022-01-02 11:42] LABS: INR 2.65 (0.8-1.2)
--- NOTE | 2022-01-02 11:46 | PC.NURSE ---
Patients inr reported to pharmacy, advised to take regular dose of 7.5 mg coumadin today. patient understands. patient instructed to follow up with primary tomorrow 01/03. patient requested later infusion time tomorrow to allow for dr visit, put patient on for 1400 01/03
== END 2022-01-02 11:39 | disposition home or self-care (01) ==
LOC: GILAB 11:39
PROVIDERS: PCP Nurse Practitioner Family; Visit Provider Internal Medicine
DX: N39.0 Urinary tract infection, site not specified (principal)
CPT/HCPCS: 36416; 36592; 82962; 85610; 96365; J1335

== ENCOUNTER 2022-01-11 13:41 | Outpatient (RCR) | payer MEDICARE, OTHER, SELFPAY ==
[2022-01-03] MEDS: ertapenem 1,000 MG in sodium chloride 0.9% (plus) 100 ML 200 MG IV (14:20)
[2022-01-03 14:44] VITALS: BP 128/83; PULSE 83; RESP 18; TEMP 36.6; O2SAT 98
[2022-01-04 14:00] VITALS: BP 154/88; PULSE 94; RESP 18; TEMP 36.6; O2SAT 94
[2022-01-04] MEDS: ertapenem 1,000 MG in sodium chloride 0.9% (plus) 100 ML 200 MG IV (14:00)
[2022-01-05 12:00] VITALS: BP 136/91; PULSE 79; RESP 18; TEMP 36.3; O2SAT 96
[2022-01-05] MEDS: ertapenem 1,000 MG in sodium chloride 0.9% (plus) 100 ML 200 MG IV (12:05)
[2022-01-07 12:35] VITALS: BP 119/65; PULSE 66; RESP 18; TEMP 36.3; O2SAT 95
[2022-01-08 10:05] VITALS: BP 105/71; PULSE 61; RESP 16; TEMP 36.5; O2SAT 98
--- NOTE | 2022-01-08 10:31 | PC.NURSE ---
COBAN REMOVED AND PICC LINE INSPECTED. NO REDNESS ,DRAINAGE OR SWELLING NOTED. CAP REMOVED AND CLEANED WITH ALCOHOL. FLUSHED WITH SALINE FLUSH. NO RESISTANCE. GOOD BLOOD RETURN. PATIENT DENIES ANY PAIN.
[2022-01-08 11:35] VITALS: BMI 34.7
[2022-01-08 11:54] VITALS: BP 112/59; PULSE 64; RESP 16; O2SAT 98
--- NOTE | 2022-01-08 11:56 | PC.NURSE ---
AFTER INFUSION, LINE FLUSHED WITH 20ml OF SALINE FLUSH.ELASTIC CLOTH WRAP APPLIED TO RIGHT ARM FOR COMFORT AND TO SECURE PICC LINE PORTS. PATIENT TOLERATED WELL.
[2022-01-09 10:05] VITALS: BP 111/79; PULSE 67; RESP 18; TEMP 36.8; O2SAT 98
[2022-01-10 12:35] VITALS: BP 117/73; PULSE 72; RESP 18; TEMP 36.1; O2SAT 97
[2022-01-11 13:49] VITALS: BP 91/70; PULSE 69; RESP 18; TEMP 36.3; O2SAT 97
--- NOTE | 2022-01-11 14:15 | PC.NURSE ---
Right midline PICC discontinued as ordered. Pressure held for approx 5 min. No hematoma or bleeding noted. Pt educated to return to ER for shortness of breath or bleeding.
== END 2022-01-17 23:59 | disposition home or self-care (01) ==
LOC: GILAB 13:41
PROVIDERS: PCP Nurse Practitioner Family; Visit Provider Internal Medicine
DX: N39.0 Urinary tract infection, site not specified (principal)
CPT/HCPCS: 96365; J1335

== ENCOUNTER 2022-01-29 10:56 | Emergency (ER) | payer MEDICARE, OTHER, SELFPAY ==
[2022-01-29 10:59] VITALS: BP 89/62; PULSE 90; RESP 18; TEMP 36.2; O2SAT 98; BMI 32.1
--- NOTE | 2022-01-29 11:15 | W.ED.FALL ---
HPI - Fall General: Chief Complaint: Fall Stated Complaint: AMS; HX OF UTI Time Seen by Provider: 01/29/22 11:03 Source: patient and old records reviewed Mode of arrival: EMS Limitations: no limitations History of Present Illness: This patient presents to our emergency department via EMS. They transported him from home. He states that he lives alone with his . He states he was going to the bathroom and had bowel movement and then was getting up and transferring back to his wheelchair and wound up falling. He states he had no syncope, palpitations, loss of consciousness etc. He states he may have had some chest pain about the time he had his fall but he has no chest pain at this time. He denies head injury loss of conscious extremity or back pain. He has a longstanding history of recurrent UTIs, chronic atrial fibrillation. He does take anticoagulant medications. He has a history of multiple ED visits. He states he does not have any home health or other in-house assistance other than his . He states he transfers independently and uses a wheelchair for mobility. Denies any nausea vomiting fever etc. He states his called EMS for lift assistance and he states that that is how he wound up in the emergency department when EMS came to assist them. who arrived later states that he did not hurt himself during the fall and that she broke his fall. She specifically stated did not hit his head or suffer a loss of conscious or other concerning incident. complaint: fall Fall from: standing Fall witnessed: yes, by family Place fall occurred: home Loss of consciousness: None Symptoms prior to fall: none Associated symptoms-after fall: Reports difficulty walking; Denies abdominal pain, confusion, headache(s), lightheadedness, neck pain or vertigo Review of Systems Const: Denies: fever(s), chills, body aches or change in appetite Eyes: Denies: change in vision ENMT: Denies: odynophagia Card: Reports: irregular heart rhythm; Denies: palpitations, lightheadedness, syncope or pre-syncope Resp: Denies: productive cough or non-productive cough GI: Denies: abdominal pain, nausea, vomiting or diarrhea : Denies: flank pain, difficulty urinating, dysuria or urinary frequency Musc: Denies: neck pain, back pain, extremity pain or extremity swelling Skin/Breast: Denies: rash, erythema or new lesions Neuro: Reports: difficulty walking and frequent falls; Denies: headache(s), numbness in extremities, weakness in extremities, vertigo, confusion or Slurred speech present Endo: Denies: polyuria or polydipsia Aaron/Lymph: Reports: easy bruising PFS ED PFSH: Medical History Aortic stenosis Had TAVR replacement 2017 Atrial fibrillation Bilateral renal masses CHF (congestive heart failure) EF 45 by transesophageal echo January 2019 Chronic use of steroids CVA (cerebral vascular accident) Dementia Diabetes Dyslipidemia Endocarditis history of chronic viridans endocarditis, 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 Essential hypertension Gout Hx of [place] spotted fever Ischemic cardiomyopathy Left ventricular hypertrophy Obesity AJAY (obstructive sleep apnea) Pulmonary HTN Recurrent UTI Multidrug-resistant organisms Renal calculi Restrictive lung disease Rheumatoid arthritis Thalassemia Surgical History H/O lithotripsy S/P TAVR (transcatheter aortic valve replacement) (~2017) Family History Mother Stroke Father Myocardial infarction Other CAD (coronary artery disease) Chronic kidney disease (CKD) Diabetes Hypertension Social History Smoking and tobacco status: former smoker Quit status (tobacco): has quit using tobacco Year quit tobacco: 2019 - Chewing Tobacco Former quit date comment: Hx of 1/2 can x 50 Years Second hand smoke exposure: No Alcohol intake: former Lives independently: No Household members: spouse Marital status: Current occupational status: retired and disabled Current gender identity: Male Physical Exam Narrative: EXAM NARRATIVE: Patient's comfortable and alert. Answers questions in a goal-directed fashion. He denies any ongoing complaints. Const: COMMON NORMALS: no acute distress and patient oriented x3 GENERAL APPEARANCE: other (High BMI) NUTRITIONAL APPEARANCE: overweight ORIENTATION/CONSCIOUSNESS: Yes awake HENMT: COMMON NORMALS: normocephalic, atraumatic, external ears normal, Normal external nose present and moist oral mucous membranes HEAD & SCALP: normocephalic and atraumatic FACE & SINUS: face symmetric NOSE: Normal external nose present EXTERNAL EAR: Yes external ears normal Eye: COMMON NORMALS: Equal, round and reactive pupils present, EOMs intact bilaterally, conjunctivae normal and no scleral icterus CONJUNCTIVA: Yes conjunctivae normal PUPIL: Yes Equal, round and reactive pupils present Neck/C-Spine: COMMON NORMALS: full ROM (No midline tenderness, step-off, range of motion without discomfort) and Thyroid normal THYROID: Thyroid normal Chest: COMMONS NORMALS: normal inspection of the chest CHEST: Yes tenderness (Anterior chest tender to palpation without crepitance), No Ecchymosis present and No rash Resp: COMMON NORMALS: No retractions EFFORT & INSPECTION: Yes able to speak in complete sentences AUSCULTATION: no crackles, no wheezes and diminished lung sounds (Bases bilaterally) Cardio: COMMON NORMALS: No murmurs present (Cardio) and Peripheral pulses 2+ throughout PERIPHERAL PULSES: Peripheral pulses 2+ throughout GI: COMMON NORMALS: Soft to palpation, non-tender and No hepatosplenomegaly present PALPATION: Yes Soft to palpation and Yes No hepatosplenomegaly present : COMMON NORMALS: Yes no CVA tenderness BLADDER/KIDNEY EXAM: Yes no CVA tenderness Back/Pelvis: COMMON NORMALS: no CVA tenderness, thoracic and lumbar spine normal to inspection, no thoracic nor lumbar tenderness, thoraco-lumbar ROM normal and straight leg raise negative bilaterally PELVIS: Yes no pain with anterior-posterior compression and Yes no pain with lateral compression Extremity: COMMON NORMALS: normal to inspection, full ROM, capillary refill normal, no joint enlargement and no calf tenderness Neuro: COMMON NORMALS: patient oriented x3, moves all extremities and no focal motor deficits Course ED course: Patient initially presented with any evidence of trauma or other concerning findings on clinical exam. Given his history we will go ahead and evaluate for any obvious occult ischemia, occult infection etc. Reevaluation(s): Reevaluation #1: Patient's troponin was noted. Second EKG was obtained that shows some ST changes in the lateral precordial low leads V5 and V6. Patient was reexamined and reinterviewed and his is now present. He did complain of chest pain and repeat examination revealed anterior chest wall tenderness without any signs of injury rash etc. Not clear that this represents ischemic pain although his initial troponin was slightly elevated. We consulted cardiology who will review tracings and we will proceed as indicated. We will go ahead and await a second biomarker as well. Vital Signs: Vital signs: Vital Signs Temperature 98.4 F 01/29/22 13:45 Pulse Rate 78 01/29/22 13:45 Respiratory Rate 22 H 01/29/22 13:45 Blood Pressure 108/40 01/29/22 13:45 Pulse Oximetry 96 01/29/22 13:45 MDM - Fall Medical Decision Making Patient with chronic atrial fibrillation and gait instability who had a nonsyncopal fall today. His clinical evaluation did not reveal any signs of injury. He did have chest wall tenderness however as noted. His initial troponin was slightly over the URL for male but his delta troponin showed falling levels of his biomarker. I suspect because of his chronic atrial fibrillation he does have some slight elevation in troponin.. Certainly no evidence at this time it represents ischemia. This was discussed with on-call construction management instructor and because of the following troponin as well as his EKGs which do not suggest ischemic changes it is not felt that he was a high risk for ACS at this time. I discussed his medications with his . I think he is certainly at risk for subsequent falls because of his gait instability and frailty but also because of relative hypotension. I have recommended that she continue with her practice of tracking his blood pressure and only giving his lisinopril if his blood pressure elevates above the 120 systolic range. Also suggested that rather giving his diuretic on a regular basis she should weigh him and only as a diuretic in concert with weight gain but she should discuss this plan with the primary care doctor on Monday. At this point he is stable to be discharged I discussed all findings with both patient and spouse who voiced understanding. Plan is to be discharged home with good return precautions. Lab Data : 01/29/22 11:55 01/29/22 11:55 Radiology Impressions Chest X-Ray 01/29/22 11:25 IMPRESSION: Nonspecific left lung base opacity favors atelectasis or pneumonia. Laboratory Results WBC 15.3 10^3/uL (4.0-10.0) H 01/29/22 11:55 RBC 6.64 10^6/uL (4.1-5.3) H 01/29/22 11:55 Hgb 11.9 g/dL (11.7-16.6) 01/29/22 11:55 Hct 40.2 % (42.0-52.0) L 01/29/22 11:55 MCV 60.5 fl (80-94) L 01/29/22 11:55 MCH 17.9 pg (28.0-34.0) L 01/29/22 11:55 MCHC 29.6 g/dL (30.0-36.0) L 01/29/22 11:55 RDW 19.2 % (12.1-15.1) H 01/29/22 11:55 Plt Count 214 10^3/cmm (130-400) 01/29/22 11:55 MPV TNP 01/29/22 11:55 Lymph % (Auto) Not Reportable 01/29/22 11:55 [place] % (Auto) Not Reportable 01/29/22 11:55 Lymph # (Auto) Not Reportable 01/29/22 11:55 [place] # (Auto) Not Reportable 01/29/22 11:55 Total Counted 100 (0-100) 01/29/22 11:55 Atypical Lymphs % 0.0 % (0-5) 01/29/22 11:55 Absolute Neutrophils 13.3 10^3/cmm (1.4-6.5) H 01/29/22 11:55 Segmented Neutrophils 64 % 01/29/22 11:55 Abs Segm Neuts (Man) 9.8 10/cmm (1.6-7.1) H 01/29/22 11:55 Band Neutrophils 23.0 % 01/29/22 11:55 Abs Band Neuts (Man) 3.5 10^3/cmm (0.0-1.2) H 01/29/22 11:55 Absolute Lymphocytes 1.5 10^3/cmm (1.2-3.4) 01/29/22 11:55 Lymphocytes (Manual) 10 % 01/29/22 11:55 Monocytes (Manual) 2.0 % 01/29/22 11:55 Absolute Monocytes 0.3 10^3/cmm (0.1-0.6) 01/29/22 11:55 Eosinophils (Manual) 0 % 01/29/22 11:55 Absolute Eosinophils 0.0 10^3/cmm (0.0-0.7) 01/29/22 11:55 Basophils (Manual) 1.0 % 01/29/22 11:55 Absolute Basophils 0.2 10^3/cmm (0.0-0.2) 01/29/22 11:55 Platelet Estimate Normal (Normal) 01/29/22 11:55 Hypochromasia 2+ H 01/29/22 11:55 Poikilocytosis 2+ H 01/29/22 11:55 Anisocytosis 2+ H 01/29/22 11:55 Microcytosis 2+ H 01/29/22 11:55 PT 33.70 SECONDS (12.1-14.9) H 01/29/22 12:26 INR 3.25 (0.8-1.2) H 01/29/22 12:26 Sodium 138 mmol/L (136-145) 01/29/22 11:55 Potassium 4.4 mmol/L (3.5-5.1) 01/29/22 11:55 Chloride 99 mmol/L (98-107) 01/29/22 11:55 Carbon Dioxide 27 mmol/L (22-29) 01/29/22 11:55 Anion Gap 16.4 (5-19) 01/29/22 11:55 BUN 31 mg/dL (8-23) H 01/29/22 11:55 Creatinine 1.0 mg/dL (0.7-1.2) 01/29/22 11:55 GFR Calculation 74.3 mL/min (90-130) L 01/29/22 11:55 Glucose 186 mg/dL (65-115) H 01/29/22 11:55 Calculated Osmolality 297 mOsm/kg (285-295) H 01/29/22 11:55 Calcium 9.4 mg/dL (8.5-10.5) 01/29/22 11:55 Total Bilirubin 0.8 mg/dL (0.15-1.2) 01/29/22 11:55 AST 18 U/L (0-40) 01/29/22 11:55 ALT 15 U/L (0-41) 01/29/22 11:55 Alkaline Phosphatase 63 IU/L (40-130) 01/29/22 11:55 Troponin T Gen 5 ng/L 23 ng/L (0-15) H 01/29/22 11:55 Troponin T 120 Minute 20.85 ng/L (0-15) H 01/29/22 13:52 Delta Troponin T -2.42 ABS# (0-10) L 01/29/22 13:52 Total Protein 6.8 g/dL (6.6-8.7) 01/29/22 11:55 Albumin 3.9 g/dL (3.5-5.2) 01/29/22 11:55 Globulin 2.9 g/dL (1.3-4.6) 01/29/22 11:55 Urine Color Yellow (Yellow) 01/29/22 12:00 Urine Appearance Clear (CLEAR) 01/29/22 12:00 Urine pH 7 (5-7) 01/29/22 12:00 Ur Specific [place] 1.005 (1.005-1.030) 01/29/22 12:00 Urine Protein Neg (Negative) 01/29/22 12:00 Urine Glucose (UA) Norm (Normal) 01/29/22 12:00 Urine Ketones Negative (Negative) 01/29/22 12:00 Urine Blood Neg (Negative) 01/29/22 12:00 Urine Nitrate Negative (Negative) 01/29/22 12:00 Urine Bilirubin Neg (Negative) 01/29/22 12:00 Urine Urobilinogen Norm mg/dL (Negative) 01/29/22 12:00 Ur Leukocyte Esterase Trace (Negative) H 01/29/22 12:00 Urine RBC None /hpf (0-2) 01/29/22 12:00 Urine WBC 5-10 /hpf (0-5) H 01/29/22 12:00 Ur Squamous Epith Cells 0-4 /hpf (0-5) H 01/29/22 12:00 Amorphous Sediment Not Reportable 01/29/22 12:00 Urine Bacteria None /hpf (NONE) 01/29/22 12:00 EKG Data EKG 1: I personally reviewed and interpreted this EKG as follows: EKG interpretation time: 11:48 Interpretation: EKG reveals a ventricular rate of 61 bpm. QRS is normal duration and QTc is normal duration. Underlying rhythm is consistent with atrial fibrillation with a controlled ventricular response. Does have some baseline irritability but no concerning acute ST-T wave changes. EKG 2: EKG interpretation time: 13:37 Interpretation: EKG #2 reveals patient still to be in atrial fibrillation with a controlled ventricular rate of 83 bpm. He has normal QRS duration and normal QTC. He does have some nonspecific ST segment changes V5 and V6. EKG 3: I personally reviewed and interpreted this EKG as follows: EKG interpretation time: 14:52 Interpretation: EKG #3 reveals essentially unchanged EKG from previous. He still is in atrial fibrillation with controlled ventricular rate of 78 bpm. He still has some nonspecific changes V5 V6 more likely due to early repolarization rather than ischemic changes. They are unchanged from prior EKGs this visit. Discharge Plan Discharge Patient Disposition: Home Clinical Impression: Atrial fibrillation, Anterior chest wall pain, Frailty syndrome in geriatric patient Condition: Stable Prescriptions: No Action tamsulosin 0.4 mg capsule 0.4 mg PO DAILY@06 0RF citalopram [Celexa] 10 mg tablet 10 mg PO QAM 0RF nitroglycerin [Nitrostat] 0.4 mg tablet, sublingual 0.4 mg SUBLINGUAL Q5M PRN (Reason: Chest Pain) 0RF carvedilol 6.25 mg tablet 9.375 mg PO BID 0RF Rx Instructions: (1.5 tab =9.375mg) bumetanide 2 mg tablet 2 mg PO QAM 0RF ascorbic acid (vitamin C) 1,000 mg tablet 1 g PO BID 0RF potassium chloride 20 mEq Tablet Extended Release 20 meq PO BID 0RF pantoprazole [Protonix] 40 mg Tablet,Delayed Release (Dr/Ec) 40 mg PO DAILY@06 0RF aspirin 81 mg Tablet,Delayed Release (Dr/Ec) 81 mg PO DAILY@06 0RF Lantus Solostar U-100 Insulin 100 unit/mL (3 mL) insulin pen See Rx Instructions .ROUTE .COMPLEX 0RF Rx Instructions: 40 units qam and 30 units qpm Florajen Acidophilus 20 billion cell Capsule 20,000 mmu cells PO QPM 0RF PNV cmb#95-ferrous fumarate-FA [ Multivitamins] 28 mg iron- 800 mcg Tablet 1 tab PO DAILY@06 0RF atorvastatin 40 mg tablet 40 mg PO DAILY@19 0RF diltiazem HCl 120 mg capsule,extended release 24hr 120 mg PO DAILY@06 0RF hydroxyzine pamoate 25 mg capsule 25 mg PO BID PRN (Reason: Anxiety) 0RF lisinopril 2.5 mg Tablet 2.5 mg PO DAILY Qty: 0 0RF acetaminophen 500 mg Tablet 500 mg PO Q6H PRN (Reason: Pain) 0RF prednisone 5 mg tablet 7.5 mg PO QAM 0RF warfarin 5 mg tablet 7.5 mg PO QPM 0RF fosfomycin tromethamine 3 gram packet 1 packet PO Q3D 60 Days Qty: 20 2RF Discharge Orders: Discharge ED (Routine); Ordered 01/29/22 Ordered By: Terrell Quarles Referrals: Faustina Gonzalez NP [Primary Care Provider] - Discharge Diet: Usual diet Discharge Activity: Resume usual activity and Wheelchair as instructed Patient Instructions: Opioid Safety Activity Restrictions/Additional Instructions: Continue to monitor his blood pressure at home and give him his lisinopril as we discussed when his blood pressure is elevated past the threshold. Call your doctor to discuss the use of diuretics for weight gain rather than on a daily basis. Should you develop any ongoing symptoms of concern such as fever, nausea vomiting diarrhea persistent chest pain or shortness of breath return to this or the nearest emergency department. Ensure that you use your wheelchair for mobility and take your time with movement from sitting or lying position. Coding Level of Care Code ED Lacquer Pin Press Operator for John Jade Exam Comprehensive
--- NOTE | 2022-01-29 11:25 | XRR_ITS ---
PROCEDURE INFORMATION: Exam: XR Chest Exam date and time: 01/29/2022 11:25 AM Age: 66 years old Clinical indication: Pain; Dyspnea; Chest pressure; Additional info: Fall, chest pain TECHNIQUE: Imaging protocol: XR of the chest. Views: 1 view. Total images: 1 COMPARISON: CR XR chest 1V portable [id number] 12/29/2021 6:41 AM FINDINGS: Lungs: Nonspecific left lung base opacity favors atelectasis or pneumonia. Pleural spaces: Unremarkable. No pleural effusion. No pneumothorax. Heart/Mediastinum: There has been an aortic valve replacement. Heart size is stable when compared to the prior exam. Vasculature: Atherosclerosis is evident. Bones/joints: Osseous structures are unchanged from the prior exam. XR/XR chest 1V portable [id number] IMPRESSION: Nonspecific left lung base opacity favors atelectasis or pneumonia.
--- NOTE | 2022-01-29 11:27 | ECG_ITS ---
[facility] Test Date: 2022-01-29 Pat Name: Ry Loyd Department: Room: Gender: Male Independent Living Specialist: : 1955 Requested By: Terrell Quarles Order Number: [id number] Morena MD: Ari Pettit M.D. Measurements Intervals [place] Rate: 61 P: NC: QRS: -36 QRSD: 87 T: 0 QT: 384 QTc: 388 Interpretive Statements ATRIAL FIBRILLATION LEFT AXIS DEVIATION [QRS AXIS < -30] ST ELEVATION CONSISTENT WITH INJURY, PERICARDITIS, OR EARLY REPOLARIZATION [ST ELEVATION W/O NORMALLY INFLECTED T-WAVE] NONSPECIFIC ST & T-WAVE ABNORMALITY Compared to ECG 12/27/2021 16:18:39 ST (T wave) deviation now present Early repolarization now present T-wave abnormality now present Electronically Signed On 01-30-2022 15:46:12 CDT by Ari Pettit M.D. [id number]
[2022-01-29 12:00] LABS: Hematocrit 40.2 % (42.0-52.0); Hemoglobin 11.9 g/dL (11.7-16.6); Mean Corpuscular HGB Conc 29.6 g/dL (30.0-36.0); Mean Corpuscular Hemoglobin 17.9 pg (28.0-34.0); Mean Corpuscular Volume 60.5 fl (80-94); Platelet Count 214 10^3/cmm (130-400); Red Blood Count 6.64 10^6/uL (4.1-5.3); Red Cell Distribution Width 19.2 % (12.1-15.1); White Blood Count 15.3 10^3/uL (4.0-10.0)
[2022-01-29] MEDS: sodium chloride 0.9% 500 ML IV (12:06)
[2022-01-29 12:21] LABS: Add Urine Microscopic? YES; Bilirubin Urine Neg (Negative); Blood Urine Neg (Negative); Glucose Urine UA Norm (Normal); Ketones Urine Negative (Negative); Leukocyte Esterase Urine Trace (Negative); Nitrate Urine Negative (Negative); Protein Urine Neg (Negative); Specific Gravity, Urine 1.005 (1.005-1.030); Urine Appearance Clear (CLEAR); Urine Color Yellow (Yellow); Urobilinogen Urine Norm (Negative); pH Urine 7 (5-7)
[2022-01-29 12:28] LABS: Add Urine Culture? No; Squamous Epithelial Cell Urine 0-4 /hpf (0-5)
[2022-01-29 12:35] LABS: Troponin T (5th) Once 23 ng/L (0-15)
[2022-01-29 12:37] LABS: Alanine Aminotransferase 15 U/L (0-41); Albumin Level 3.9 g/dL (3.5-5.2); Alkaline Phosphatase 63 IU/L (40-130); Anion Gap 16.4 (5-19); Aspartate Amino Transferase 18 U/L (0-40); Blood Urea Nitrogen 31 mg/dL (8-23); Calcium 9.4 mg/dL (8.5-10.5); Carbon Dioxide 27 mmol/L (22-29); Chloride 99 mmol/L (98-107); Globulin 2.9 g/dL (1.3-4.6); Glomerular Filtration Rate 74.3 mL/min (90-130); Glucose 186 mg/dL (65-115); Osmolality Calculated 297 mOsm/kg (285-295); Potassium 4.4 mmol/L (3.5-5.1); Sodium 138 mmol/L (136-145); Total Bilirubin 0.8 mg/dL (0.15-1.2); Total Protein 6.8 g/dL (6.6-8.7)
[2022-01-29 12:42] LABS: Slide Review Slide Review Perform
[2022-01-29 12:47] VITALS: BP 89/40; PULSE 67; RESP 24; TEMP 37; O2SAT 99
[2022-01-29 12:49] LABS: Absolute Segmented Neutrophil 9.8 10/cmm (1.6-7.1); Band Neutrophils Absolute 3.5 10^3/cmm (0.0-1.2); Basophils Absolute 0.2 10^3/cmm (0.0-0.2); Lymphocytes 10 %; Monocytes Absolute 0.3 10^3/cmm (0.1-0.6); Segmented Neutrophils 64 %; Total Cells Counted 100 (0-100)
[2022-01-29 12:51] LABS: Absolute Neutrophil 13.3 10^3/cmm (1.4-6.5); Anisocytosis 2+; Eosinophils 0 %; Hypochromasia 2+; Lymphocytes Absolute 1.5 10^3/cmm (1.2-3.4); Microcytosis 2+; Platelet Estimate Normal (Normal); Poikilocytosis 2+
[2022-01-29 12:52] LABS: INR 3.25 (0.8-1.2)
--- NOTE | 2022-01-29 13:15 | ECG_ITS ---
[facility] Test Date: 2022-01-29 Pat Name: Ry Loyd Department: Room: Gender: Male Business Intelligence Reporting Analyst: : 1955 Requested By: Terrell Quarles Order Number: [id number] Morena MD: Ari Pettit M.D. Measurements Intervals [place] Rate: 83 P: [place]: QRS: -34 QRSD: 84 T: 6 QT: 393 QTc: 462 Interpretive Statements ATRIAL FIBRILLATION LEFT AXIS DEVIATION [QRS AXIS < -30] ST ELEVATION CONSISTENT WITH INJURY, PERICARDITIS, OR EARLY REPOLARIZATION [ST ELEVATION W/O NORMALLY INFLECTED T-WAVE] Compared to ECG 01/29/2022 11:41:30 T-wave abnormality no longer present ST (T wave) deviation still present Electronically Signed On 01-30-2022 15:45:51 CDT by Ari Pettit M.D. [id number]
[2022-01-29 13:45] VITALS: BP 108/40; PULSE 78; RESP 22; TEMP 36.9; O2SAT 96
[2022-01-29 14:19] LABS: Troponin 5 2HR 20.85 ng/L (0-15)
[2022-01-29] MEDS: aspirin 325 mg EC Tablet PO (14:30)
[2022-01-29 14:32] LABS: Troponin 5 2HR Delta -2.42 ABS# (0-10)
--- NOTE | 2022-01-29 15:15 | ECG_ITS ---
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 Measurements Intervals [place] Rate: 78 P: [place]: QRS: -31 QRSD: 87 T: 11 QT: 369 QTc: 421 Interpretive Statements ATRIAL FIBRILLATION LEFT AXIS DEVIATION [QRS AXIS < -30] LOW QRS VOLTAGE IN PRECORDIAL LEADS [QRS DEFLECTION < 1.0 mV IN CHEST LEADS] PATTERN CONSISTENT WITH PULMONARY DISEASE ST ELEVATION CONSISTENT WITH INJURY, PERICARDITIS, OR EARLY REPOLARIZATION [ST ELEVATION W/O NORMALLY INFLECTED T-WAVE] NONSPECIFIC ST & T-WAVE ABNORMALITY Compared to ECG 01/29/2022 13:33:04 Low QRS voltage now present T-wave abnormality now present ST (T wave) deviation still present Electronically Signed On 01-30-2022 15:54:48 CDT by Ari Pettit M.D. [id number]
[2022-01-29 15:45] VITALS: BP 100/59; PULSE 82; RESP 22; TEMP 36.7; O2SAT 98
[2022-01-29 15:47] VITALS: BP 100/59; PULSE 82; RESP 22; TEMP 36.7; O2SAT 98
== END 2022-01-29 15:48 | disposition home or self-care (01) ==
PROVIDERS: Emergency Provider Emergency Medicine; PCP Nurse Practitioner Family
DX: R07.89 Other chest pain (principal); I48.91 Unspecified atrial fibrillation; R54 Age-related physical debility; Z79.01 Long term (current) use of anticoagulants; Z79.82 Long term (current) use of aspirin; Z79.4 Long term (current) use of insulin; I11.0 Hypertensive heart disease with heart failure; I50.9 Heart failure, unspecified; Z86.73 Personal history of transient ischemic attack (TIA), and cerebral infarction without residual deficits; F03.90 Unspecified dementia, unspecified severity, without behavioral disturbance, psychotic disturbance, mood disturbance, and anxiety; E11.9 Type 2 diabetes mellitus without complications; E78.5 Hyperlipidemia, unspecified; Z87.891 Personal history of nicotine dependence
CPT/HCPCS: 71045; 80053; 81001; 84484; 85007; 85025; 85610; 93005; 96360; 99284; J7040

== ENCOUNTER 2022-02-05 23:17 | Emergency (ER) | payer MEDICARE, OTHER, SELFPAY ==
--- NOTE | 2022-02-05 23:21 | XRR_ITS ---
PROCEDURE INFORMATION: Exam: XR Chest Exam date and time: 02/05/2022 10:49 PM Age: 66 years old Clinical indication: Pain; Chest pressure; Patient HX: C/O weakness and cp TECHNIQUE: Imaging protocol: XR of the chest. Views: 1 view. COMPARISON: CR (CHEST, ) 01/29/2022 11:58 AM FINDINGS: Lungs: Unremarkable. No consolidation. Pleural spaces: Unremarkable. No pleural effusion. No pneumothorax. Heart/Mediastinum: Stable endovascular aortic valve replacement. Bones/joints: Unremarkable. XR/XR chest 1V portable [id number] IMPRESSION: 1. Stable endovascular aortic valve replacement. 2. No acute findings.
[2022-02-05 23:27] VITALS: BP 129/83; PULSE 106; RESP 18; TEMP 36.9; O2SAT 96; BMI 34.4
[2022-02-05 23:31] VITALS: BP 130/72; PULSE 94; RESP 18; O2SAT 98
[2022-02-06] VITALS: BP 126/77; PULSE 91; RESP 18; O2SAT 100
--- NOTE | 2022-02-06 00:01 | ED_ITS ---
HPI - Weakness General: Chief complaint: Chest Pain Stated complaint: Weak Cant get up\Chest Hurting\Has UTI Alot Time Seen by Provider: 02/05/22 23:20 History of Present Illness: Patient is a 66-year-old male comes to the ED with generalized weakness. Past medical history of CHF, A. fib and diabetes. Tonight while transferring from his wheelchair to bed he had an episode of gener alized weakness. His symptoms resolved before arriving to the ED. here in the ED he says he feels normal and has no complaints. He has had some lower leg edema developing over the past couple days. Patient denies any fall, syncopal episode or any loss of consciousness. Denies any fevers, acute shortness of breath, chest pain, palpitations, nausea, vomiting, dysuria or hematuria. Associated symptoms: Denies chest pain, chills, dysuria, fever(s), headache(s), nausea or vomiting Review of Systems Const: Reports: fatigue (generalized weakness); Denies: fever(s) or chills Eyes: Denies: change in vision or eye discomfort ENMT: Denies: throat pain, odynophagia, nasal discharge or nasal congestion Card: Denies: chest pain, palpitations, edema, swelling of feet/ankles, dyspnea on exertion or orthopnea Resp: Denies: dyspnea, productive cough or non-productive cough GI: Denies: abdominal pain, nausea, vomiting, diarrhea, constipation or hematochezia : Denies: flank pain, difficulty urinating, dysuria or hematuria Musc: Denies: neck pain, back pain or extremity swelling Skin/Breast: Denies: rash or new lesions Neuro: Denies: headache(s), numbness in extremities or weakness in extremities [facility] ED PFSH: Medical History Aortic stenosis Had TAVR replacement 2017 Atrial fibrillation Bilateral renal masses CHF (congestive heart failure) EF 45 by transesophageal echo January 2019 Chronic use of steroids CVA (cerebral vascular accident) Dementia Diabetes Dyslipidemia Endocarditis history of chronic viridans endocarditis, 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 Essential hypertension Gout Hx of [place] spotted fever Ischemic cardiomyopathy Left ventricular hypertrophy Obesity AJAY (obstructive sleep apnea) Pulmonary HTN Recurrent UTI Multidrug-resistant organisms Renal calculi Restrictive lung disease Rheumatoid arthritis Thalassemia Surgical History H/O lithotripsy S/P TAVR (transcatheter aortic valve replacement) (~2018) Family History Mother Stroke Father Myocardial infarction Other CAD (coronary artery disease) Chronic kidney disease (CKD) Diabetes Hypertension Social History Smoking and tobacco status: former smoker Quit status (tobacco): has quit using tobacco Year quit tobacco: 2019 - Chewing Tobacco Former quit date comment: Hx of 11/21 can x 50 Years Second hand smoke exposure: No Alcohol intake: former Lives independently: No Household members: spouse Marital status: Current occupational status: retired and disabled Current gender identity: Male Physical Exam Const: COMMON NORMALS: patient oriented x3 and alert GENERAL APPEARANCE: cooperative NUTRITIONAL APPEARANCE: obese HENMT: COMMON NORMALS: normocephalic HEAD & SCALP: normocephalic MOUTH: Normal oral and palatal mucosa present THROAT: posterior oropharynx normal and uvula midline Eye: COMMON NORMALS: Equal, round and reactive pupils present PUPIL: Yes Equal, round and reactive pupils present Neck/C-Spine: COMMON NORMALS: supple GENERAL: Yes normal visual inspection Resp: COMMON NORMALS: normal respiratory effort, No retractions, No use of accessory muscles and clear to auscultation bilaterally AUSCULTATION: clear to auscultation bilaterally Cardio: COMMON NORMALS: regular rate, S1 normal heart sound present, S2 normal heart sound present, No gallops present (Cardio), No clicks present (Cardio), No murmurs present (Cardio) and Peripheral pulses 2+ throughout RATE: regular rate RHYTHM: abnormal rhythm irregularly irregular HEART SOUNDS: S1 normal heart sound present and S2 normal heart sound present PERIPHERAL PULSES: Peripheral pulses 2+ throughout GI: COMMON NORMALS: Normal to inspection, nondistended, normoactive bowel sounds present, Soft to palpation, non-tender and no masses PALPATION: Yes Soft to palpation : COMMON NORMALS: Yes no CVA tenderness BLADDER/KIDNEY EXAM: Yes no CVA tenderness Back/Pelvis: COMMON NORMALS: no CVA tenderness Extremity: GENERAL: Yes edema (2+ bilateral lower extremity pitting edema) Neuro: COMMON NORMALS: patient oriented x3 and moves all extremities SENSORIUM/ORIENTATION: Yes alert Skin: GENERAL SKIN EXAM: dry skin Course Vital Signs: Vital signs: Vital Signs Temperature 98.5 F 02/05/22 23:27 Pulse Rate 101 H 02/06/22 01:01 Respiratory Rate 21 H 02/06/22 01:01 Blood Pressure 131/72 02/06/22 01:01 Pulse Oximetry 98 02/06/22 01:01 MDM - Weakness Medical Decision Making Patient is a 66-year-old male comes to the ED with an episode of generalized weakness. Patient has a history of CHF, diabetes and A. fib. He had an episode of generalized weakness when transferring from his wheelchair tonight. Weakness has resolved and he says here in the ED he feels normal. He does report having some increased lower extremity edema over the past couple days. Patient does have chronic UTIs and is currently taking fosfomycin tromethamine daily. denies any fevers, chest pain, palpitations, shortness of breath, nausea/vomiting, bladder or bowel symptoms. Vitals are stable. Patient does have some 2+ pitting edema in bilateral lower extremities.. Rest of exam is benign. CBC, CMP showed no acute findings. UA shows some increased white blood cells and bacteria but there is also some squamous cells which indicates some contamination. Negative nitrates. Urine culture is pending. Troponins were negative. Chest x-ray showed no acute findings. BNP 1566. EKG showed A. fib with rate controlled. No ST segment elevation or depression noted. Patient was given IV 40 mg of Lasix here in the ED. I talked with Dr. Smith about patient case and he reviewed labs and imaging. Dr. Smith thought patient did not need to be admitted and can follow-up with his PCP this coming week for reevaluation. Patient diagnosed with CHF exacerbation and was discharged home. He was told to continue taking his meds as previously prescribed including his 2 doses of Lasix daily. He was told to follow-up with his PCP within the next week for reevaluation. Return to ED precautions given. Patient and patient's spouse understood and agreed with plan. Lab Data I reviewed the patient's lab results. : 02/06/22 00:25 02/06/22 00:25 Radiology Impressions Chest X-Ray 02/05/22 23:21 IMPRESSION: 1. Stable endovascular aortic valve replacement. 2. No acute findings. Laboratory Results WBC 10.0 10^3/uL (4.0-10.0) 02/06/22 00:25 RBC 6.28 10^6/uL (4.1-5.3) H 02/06/22 00:25 Hgb 11.2 g/dL (11.7-16.6) L 02/06/22 00:25 Hct 37.4 % (42.0-52.0) L 02/06/22 00:25 MCV 59.6 fl (80-94) L 02/06/22 00:25 MCH 17.8 pg (28.0-34.0) L 02/06/22 00:25 MCHC 29.9 g/dL (30.0-36.0) L 02/06/22 00:25 RDW 18.8 % (12.1-15.1) H 02/06/22 00:25 Plt Count 313 10^3/cmm (130-400) 02/06/22 00:25 MPV 9.8 fL (7.4-10.4) 02/06/22 00:25 Neut % (Auto) 72.4 % 02/06/22 00:25 Lymph % (Auto) 16.6 % 02/06/22 00:25 [place] % (Auto) 7.3 % 02/06/22 00:25 Eos % (Auto) 2.5 % 02/06/22 00:25 Baso % (Auto) 0.7 % 02/06/22 00:25 Neut # (Auto) 7.26 10^3/uL (1.8-7.7) 02/06/22 00:25 Lymph # (Auto) 1.7 10^3/uL (0.8-4.8) 02/06/22 00:25 [place] # (Auto) 0.7 10^3/uL (0.2-0.9) 02/06/22 00:25 Eos # (Auto) 0.3 10^3/uL (0.0-0.8) 02/06/22 00:25 Baso # (Auto) 0.1 10^3/uL (0.0-0.1) 02/06/22 00:25 Nucleated RBC % (auto) 0 % 02/06/22 00:25 Nucleated RBCs # 0.0 /100WBC 02/06/22 00:25 PT 27.90 SECONDS (12.1-14.9) H 02/06/22 00:25 INR 2.55 (0.8-1.2) H 02/06/22 00:25 Sodium 139 mmol/L (136-145) 02/06/22 00:25 Potassium 3.4 mmol/L (3.5-5.1) L 02/06/22 00:25 Chloride 98 mmol/L (98-107) 02/06/22 00:25 Carbon Dioxide 27 mmol/L (22-29) 02/06/22 00:25 Anion Gap 17.4 (5-19) 02/06/22 00:25 BUN 36 mg/dL (8-23) H 02/06/22 00:25 Creatinine 0.9 mg/dL (0.7-1.2) 02/06/22 00:25 GFR Calculation 83.9 mL/min (90-130) L 02/06/22 00:25 Glucose 179 mg/dL (65-115) H 02/06/22 00:25 Calculated Osmolality 301 mOsm/kg (285-295) H 02/06/22 00:25 Calcium 9.9 mg/dL (8.5-10.5) 02/06/22 00:25 Total Bilirubin 0.5 mg/dL (0.15-1.2) 02/06/22 00:25 AST 16 U/L (0-40) 02/06/22 00:25 ALT 17 U/L (0-41) 02/06/22 00:25 Alkaline Phosphatase 62 IU/L (40-130) 02/06/22 00:25 Troponin T Baseline 24 ng/L (0-15) H 02/06/22 00:25 Troponin T 120 Minute 25.13 ng/L (0-15) H 02/06/22 01:23 Delta Troponin T 1.13 ABS# (0-10) 02/06/22 01:23 NT-Pro-B Natriuret Pep 1566 pg/mL (0-125) H 02/06/22 00:25 Total Protein 6.8 g/dL (6.6-8.7) 02/06/22 00:25 Albumin 3.5 g/dL (3.5-5.2) 02/06/22 00:25 Globulin 3.3 g/dL (1.3-4.6) 02/06/22 00:25 Lipase 26 U/L (13-60) 02/06/22 00:25 Urine Color Yellow (Yellow) 02/06/22 00:25 Urine Appearance Sl hazy (CLEAR) 02/06/22 00:25 Urine pH 5 (5-7) 02/06/22 00:25 Ur Specific [place] 1.015 (1.005-1.030) 02/06/22 00:25 Urine Protein Neg (Negative) 02/06/22 00:25 Urine Glucose (UA) Norm (Normal) 02/06/22 00:25 Urine Ketones Negative (Negative) 02/06/22 00:25 Urine Blood Neg (Negative) 02/06/22 00:25 Urine Nitrate Negative (Negative) 02/06/22 00:25 Urine Bilirubin Neg (Negative) 02/06/22 00:25 Urine Urobilinogen Norm mg/dL (Negative) 02/06/22 00:25 Ur Leukocyte Esterase 2+ (Negative) H 02/06/22 00:25 Urine RBC 0-4 /hpf (0-2) H 02/06/22 00:25 Urine WBC 40-55 /hpf (0-5) H 02/06/22 00:25 Ur Squamous Epith Cells 5-10 /hpf (0-5) H 02/06/22 00:25 Amorphous Sediment Not Reportable 02/06/22 00:25 Urine Bacteria 4+ /hpf (NONE) H 02/06/22 00:25 EKG Data EKG 1: EKG interpretation date: 02/05/22 EKG interpretation time: 23:35 Interpretation: A. fib with rate controlled. [address] segment elevation or depression noted. EKG 2: EKG interpretation date: 02/06/22 EKG interpretation time: 01:13 Interpretation: A. fib with rate control, 98 bpm, no ST segment elevation or depression seen. Discharge Plan Discharge Patient Disposition: Home Clinical Impression: CHF exacerbation Qualifiers: Heart failure type: unspecified Qualified Code(s): I50.9 - Heart failure, unspecified Condition: Stable Prescriptions: No Action tamsulosin 0.4 mg capsule 0.4 mg PO DAILY@06 0RF citalopram [Celexa] 10 mg tablet 10 mg PO QAM 0RF nitroglycerin [Nitrostat] 0.4 mg tablet, sublingual 0.4 mg SUBLINGUAL Q5M PRN (Reason: Chest Pain) 0RF carvedilol 6.25 mg tablet 9.375 mg PO BID 0RF Rx Instructions: (1.5 tab =9.375mg) bumetanide 2 mg tablet 2 mg PO QAM 0RF ascorbic acid (vitamin C) 1,000 mg tablet 1 g PO BID 0RF potassium chloride 20 mEq Tablet Extended Release 20 meq PO BID 0RF pantoprazole [Protonix] 40 mg Tablet,Delayed Release (Dr/Ec) 40 mg PO DAILY@06 0RF aspirin 81 mg Tablet,Delayed Release (Dr/Ec) 81 mg PO DAILY@06 0RF Lantus Solostar U-100 Insulin 100 unit/mL (3 mL) insulin pen See Rx Instructions .ROUTE .COMPLEX 0RF Rx Instructions: 40 units qam and 30 units qpm Florajen Acidophilus 20 billion cell Capsule 20,000 mmu cells PO QPM 0RF PNV cmb#95-ferrous fumarate-FA [ Multivitamins] 28 mg iron- 800 mcg Tablet 1 tab PO DAILY@06 0RF atorvastatin 40 mg tablet 40 mg PO DAILY@19 0RF diltiazem HCl 120 mg capsule,extended release 24hr 120 mg PO DAILY@06 0RF hydroxyzine pamoate 25 mg capsule 25 mg PO BID PRN (Reason: Anxiety) 0RF lisinopril 2.5 mg Tablet 2.5 mg PO DAILY Qty: 0 0RF acetaminophen 500 mg Tablet 500 mg PO Q6H PRN (Reason: Pain) 0RF prednisone 5 mg tablet 7.5 mg PO QAM 0RF warfarin 5 mg tablet 7.5 mg PO QPM 0RF fosfomycin tromethamine 3 gram packet 1 packet PO Q3D 60 Days Qty: 20 2RF Discharge Orders: Discharge ED (Routine); Ordered 02/06/22 Ordered By: Adolph Clifford Referrals: Faustina Gonzalez NP [Primary Care Provider] - Discharge Diet: Regular Discharge Activity: Increase activity as tolerated Patient Instructions: Heart Failure (DC), Low-Sodium Diet (ED) Activity Restrictions/Additional Instructions: Follow-up with medical provider as directed in the next 5 to 7 days for reevaluation. continue taking all home medications as prescribed. Low-sodium diet and check weight daily. return to the ER or your medical provider if condition worsens. Please read and understand discharge instructions. Thank you for choosing [facility] for your healthcare needs today. Please realize this is an emergency room and that we are providing you with a medical screening exam and this may not be complete and all inclusive of all the testing and or work up that you may need to determine your ailment or severity of your illness. It is very important that you follow up as instructed or that you return to the Emergency Department should you have concerns or if your condition changes or worsens in any way. Coding Level of Care Code ED Sales Rep for John Fwjackelin Exam Comprehensive
[2022-02-06 00:31] VITALS: BP 120/69; PULSE 91; RESP 21; O2SAT 99
[2022-02-06 00:46] LABS: Basophils # 0.1 10^3/uL (0.0-0.1); Basophils % 0.7 %; Eosinophils # 0.3 10^3/uL (0.0-0.8); Eosinophils % 2.5 %; Hematocrit 37.4 % (42.0-52.0); Hemoglobin 11.2 g/dL (11.7-16.6); Lymphocytes # 1.7 10^3/uL (0.8-4.8); Lymphocytes % 16.6 %; Mean Corpuscular HGB Conc 29.9 g/dL (30.0-36.0); Mean Corpuscular Hemoglobin 17.8 pg (28.0-34.0); Mean Corpuscular Volume 59.6 fl (80-94); Mean Platelet Volume 9.8 fL (7.4-10.4); Monocytes # 0.7 10^3/uL (0.2-0.9); Monocytes % 7.3 %; Neutrophils # 7.26 10^3/uL (1.8-7.7); Neutrophils % 72.4 %; Nucleated Red Blood Cells % 0 %; Platelet Count 313 10^3/cmm (130-400); Red Blood Count 6.28 10^6/uL (4.1-5.3); Red Cell Distribution Width 18.8 % (12.1-15.1)
[2022-02-06 00:52] LABS: Add Urine Microscopic? YES; Bilirubin Urine Neg (Negative); Blood Urine Neg (Negative); Glucose Urine UA Norm (Normal); Ketones Urine Negative (Negative); Leukocyte Esterase Urine 2+ (Negative); Nitrate Urine Negative (Negative); Protein Urine Neg (Negative); Specific Gravity, Urine 1.015 (1.005-1.030); Urine Appearance SL Hazy (CLEAR); Urine Color Yellow (Yellow); Urobilinogen Urine Norm (Negative); pH Urine 5 (5-7)
[2022-02-06 00:55] LABS: Add Urine Culture? Yes; Bacteria Urine 4+ /hpf; RBC Urine 0-4 /hpf (0-2); WBC Urine 40-55 /hpf (0-5)
[2022-02-06 00:56] LABS: INR 2.55 (0.8-1.2)
[2022-02-06 01:01] VITALS: BP 131/72; PULSE 101; RESP 21; O2SAT 98
[2022-02-06 01:16] LABS: Troponin(5th) Baseline 24 ng/L (0-15)
--- NOTE | 2022-02-06 01:21 | ECG_ITS ---
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 Measurements Intervals [place] Rate: 98 P: ME: QRS: -36 QRSD: 92 T: 131 QT: 268 QTc: 342 Interpretive Statements ATRIAL FIBRILLATION LEFT AXIS DEVIATION [QRS AXIS < -30] NONSPECIFIC T-WAVE ABNORMALITY Compared to ECG 01/29/2022 14:46:55 ST (T wave) deviation no longer present Early repolarization no longer present T-wave abnormality still present Electronically Signed On 02-06-2022 17:46:26 CDT by Layla Cazares M.D. [id number]
[2022-02-06 01:23] LABS: Alanine Aminotransferase 17 U/L (0-41); Albumin Level 3.5 g/dL (3.5-5.2); Alkaline Phosphatase 62 IU/L (40-130); Anion Gap 17.4 (5-19); Aspartate Amino Transferase 16 U/L (0-40); Blood Urea Nitrogen 36 mg/dL (8-23); Calcium 9.9 mg/dL (8.5-10.5); Carbon Dioxide 27 mmol/L (22-29); Chloride 98 mmol/L (98-107); Globulin 3.3 g/dL (1.3-4.6); Glomerular Filtration Rate 83.9 mL/min (90-130); Glucose 179 mg/dL (65-115); Lipase 26 U/L (13-60); NT Pro B Type Natriuretic Pept 1566 pg/mL (0-125); Osmolality Calculated 301 mOsm/kg (285-295); Potassium 3.4 mmol/L (3.5-5.1); Sodium 139 mmol/L (136-145); Total Bilirubin 0.5 mg/dL (0.15-1.2); Total Protein 6.8 g/dL (6.6-8.7)
[2022-02-06 01:30] VITALS: BP 120/69; PULSE 90; RESP 18; O2SAT 96
[2022-02-06] MEDS: FUROsemide 10 mg/mL SDV 4mL 40 MG IVP (01:36)
[2022-02-06 02:00] VITALS: BP 131/72; PULSE 105; RESP 18; O2SAT 98
[2022-02-06 02:02] LABS: Troponin 5 2HR 25.13 ng/L (0-15); Troponin 5 2HR Delta 1.13 ABS# (0-10)
[2022-02-06 03:02] VITALS: BP 120/64; PULSE 88; RESP 18; O2SAT 98
== END 2022-02-06 02:40 | disposition home or self-care (01) ==
PROVIDERS: Emergency Provider Physician Assistant; PCP Nurse Practitioner Family
DX: I11.0 Hypertensive heart disease with heart failure (principal); I50.9 Heart failure, unspecified; Z79.01 Long term (current) use of anticoagulants; Z79.82 Long term (current) use of aspirin; Z79.4 Long term (current) use of insulin; Z86.73 Personal history of transient ischemic attack (TIA), and cerebral infarction without residual deficits; F03.90 Unspecified dementia, unspecified severity, without behavioral disturbance, psychotic disturbance, mood disturbance, and anxiety; E11.9 Type 2 diabetes mellitus without complications; E78.5 Hyperlipidemia, unspecified; Z87.891 Personal history of nicotine dependence
CPT/HCPCS: 71045; 80053; 81001; 83690; 83880; 84484; 85025; 85610; 87077; 87086; 87186; 93005; 96374; 99284; J1940

== ENCOUNTER 2022-02-17 13:23 | Outpatient (CLI) | payer MEDICARE, OTHER, SELFPAY ==
[2022-02-17 14:08] LABS: Alanine Aminotransferase 17 U/L (0-41); Albumin Level 3.6 g/dL (3.5-5.2); Alkaline Phosphatase 56 IU/L (40-130); Anion Gap 15.2 (5-19); Aspartate Amino Transferase 20 U/L (0-40); Blood Urea Nitrogen 43 mg/dL (8-23); Calcium 9.7 mg/dL (8.5-10.5); Carbon Dioxide 25 mmol/L (22-29); Chloride 101 mmol/L (98-107); Globulin 2.9 g/dL (1.3-4.6); Glomerular Filtration Rate 83.9 mL/min (90-130); Glucose 187 mg/dL (65-115); Osmolality Calculated 300 mOsm/kg (285-295); Potassium 4.2 mmol/L (3.5-5.1); Sodium 137 mmol/L (136-145); Total Bilirubin 0.5 mg/dL (0.15-1.2); Total Protein 6.5 g/dL (6.6-8.7)
== END 2022-02-17 13:24 | disposition home or self-care (01) ==
LOC: LAB 13:30
PROVIDERS: PCP Nurse Practitioner Family; Visit Provider Student in an Organized Health Care Education/Training Program
DX: Z79.899 Other long term (current) drug therapy (principal)
CPT/HCPCS: 36415; 80053

== ENCOUNTER → 2022-02-25 10:53 | Outpatient (BNVA) | payer MEDICARE, OTHER, SELFPAY | PROVIDERS: PCP Nurse Practitioner Family; Visit Provider Urology | DX: N39.0 Urinary tract infection, site not specified (principal); N20.0 Calculus of kidney; F03.90 Unspecified dementia, unspecified severity, without behavioral disturbance, psychotic disturbance, mood disturbance, and anxiety | CPT/HCPCS: 81003 ==

== ENCOUNTER → 2022-05-16 10:58 | Outpatient (BNVA) | payer MEDICARE, OTHER, SELFPAY | PROVIDERS: PCP Nurse Practitioner Family; Visit Provider Internal Medicine Critical Care Medicine | DX: R06.02 Shortness of breath (principal); G47.10 Hypersomnia, unspecified; I50.9 Heart failure, unspecified; J98.4 Other disorders of lung; Z87.891 Personal history of nicotine dependence; E11.8 Type 2 diabetes mellitus with unspecified complications; E78.5 Hyperlipidemia, unspecified; I27.20 Pulmonary hypertension, unspecified; Z79.4 Long term (current) use of insulin | CPT/HCPCS: 99213 ==

== ENCOUNTER → 2022-05-18 13:23 | Outpatient (BNVA) | payer MEDICARE, OTHER, SELFPAY | PROVIDERS: PCP Nurse Practitioner Family; Visit Provider Internal Medicine | DX: M05.79 Rheumatoid arthritis with rheumatoid factor of multiple sites without organ or systems involvement (principal); M10.9 Gout, unspecified; L98.9 Disorder of the skin and subcutaneous tissue, unspecified | CPT/HCPCS: 99214 ==

== ENCOUNTER → 2022-05-26 10:50 | Outpatient (BNVA) | payer MEDICARE, OTHER, SELFPAY | PROVIDERS: PCP Nurse Practitioner Family; Visit Provider Student in an Organized Health Care Education/Training Program | DX: N39.0 Urinary tract infection, site not specified (principal); Z79.2 Long term (current) use of antibiotics; R34 Anuria and oliguria | CPT/HCPCS: 99212 ==

== ENCOUNTER 2022-07-13 01:02 | Inpatient (IN) | payer MEDICARE, OTHER, SELFPAY ==
[2022-07-13] VITALS (76 sets, daily range): BP systolic 67–167; BP diastolic 38–120; PULSE 48–110; RESP 0–39; TEMP 36.6–37.4; O2SAT 82–98; BMI 35.9
--- NOTE | 2022-07-13 01:04 | XRR_ITS ---
PROCEDURE INFORMATION: Exam: XR Chest Exam date and time: 07/13/2022 1:14 AM Age: 66 years old Clinical indication: Prior surgery; Surgery type: Tavr; Patient HX: AMS. Confusion. History of CVA and dementia. Recurrent utis. TECHNIQUE: Imaging protocol: Radiologic exam of the chest. Views: 1 view. COMPARISON: CR XR chest 1V portable [id number] 02/05/2022 10:49 PM FINDINGS: Lungs: No CHF/pulmonary edema. Poor inspiration somewhat limits evaluation, especially of the lung bases. Very mild left lower lung opacities may represent atelectasis. Pneumonitis not excluded. Please correlate clinically. Visible lungs otherwise appear essentially clear. Pleural spaces: No visible pneumothorax. No definite pleural fluid. Heart/Mediastinum: Heart size is upper range of normal. Prosthetic aortic valve again noted. Bones/joints: No significant acute finding. XR/XR chest 1V portable [id number] IMPRESSION: 1. Very mild left lower lung opacities, see above discussion 2. Other findings discussed above.
--- NOTE | 2022-07-13 01:04 | CTR_ITS ---
PROCEDURE INFORMATION: Exam: CT Head Without Contrast Exam date and time: 07/13/2022 1:37 AM Age: 66 years old Clinical indication: Altered mental status/memory loss; Patient HX: AMS. Confusion. History of CVA and dementia. Recurrent utis. TECHNIQUE: Imaging protocol: Computed tomography of the head without contrast. Radiation optimization: All CT scans at this facility use at least one of these dose optimization techniques: automated exposure control; mA and/or kV adjustment per patient size (includes targeted exams where dose is matched to clinical indication); or iterative reconstruction. COMPARISON: CT head wo con* [id number] 11/05/2021 1:54 AM RADIATION DOSE METRICS: Total DLP (mGy-cm): 809.08 FINDINGS: Brain: No acute intracranial hemorrhage or mass effect. There is decreased attenuation in the periventricular white matter, likely from microvascular disease. Old infarcts involving the left frontal/parietal regions, and cerebellum, right larger than left. The appearance is similar to the prior exam. No definite acute infarct by CT. MRI could be more sensitive/specific for detection, as clinically directed. Cerebral ventricles: Ventricle size is normal for age. Paranasal sinuses: Included paranasal sinuses are essentially clear. Mastoid air cells: No significant acute finding. Bones/joints: No definite acute skull fracture. Soft tissues: No significant acute finding. Vasculature: Vascular calcifications in the internal carotid and vertebral basilar systems. CT/CT head wo con* [id number] IMPRESSION: 1. No acute intracranial hemorrhage or mass effect. 2. Changes of microvascular disease, and old infarcts, details above. 3. No definite acute infarct by CT, see above. 4. Other findings discussed above.
--- NOTE | 2022-07-13 01:13 | ECG_ITS ---
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 Measurements Intervals [place] Rate: 81 P: [place]: QRS: -20 QRSD: 91 T: 144 QT: 384 QTc: 448 Interpretive Statements ATRIAL FIBRILLATION MINIMAL VOLTAGE CRITERIA FOR LVH, CONSIDER NORMAL VARIANT [MEETS CRITERIA IN ONE OF: R(aVL), S(V1), R(V5), R(V5/V6)+S(V1)] ST DEVIATION AND MODERATE T-WAVE ABNORMALITY, CONSIDER LATERAL ISCHEMIA [-0.1+ mV T-WAVE IN I/aVL/V5/V6] Compared to ECG 02/06/2022 01:13:57 Possible ischemia now present Left-axis deviation no longer present T-wave abnormality still present Electronically Signed On 07-13-2022 16:28:26 CDT by Dirk Mondragon M.D. [email or web address]
--- NOTE | 2022-07-13 01:31 | W.ED.AMS ---
HPI - Altered Mental Status General: Chief Complaint: Altered Mental Status Stated Complaint: AMS Time Seen by Provider: 07/13/22 01:04 Source: patient Mode of arrival: ambulatory Limitations: no limitations History of Present Illness: 66-year-old male is well-known to ER provider patient's been having some shaking and altered mental status. Here he is confused he is able to tell me his name is confused on the date he knows where he lives but is not unsure where he is currently. He has been afebrile his is concerned he may have a UTI states that he seems to get like this when he has urinary tract infections no head injury no vomiting or diarrhea. Patient has no complaints of pain. Review of Systems General: Reports: ROS unobtainable due to mental status PFSH ED PFSH: Medical History Aortic stenosis Had TAVR replacement 2017 Atrial fibrillation Bilateral renal masses CHF (congestive heart failure) EF 45 by transesophageal echo January 2019 Chronic use of steroids CVA (cerebral vascular accident) Dementia Diabetes Dyslipidemia Endocarditis history of chronic viridans endocarditis, 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 Essential hypertension Gout Hx of [place] spotted fever Ischemic cardiomyopathy Left ventricular hypertrophy Obesity AJAY (obstructive sleep apnea) Pulmonary HTN Recurrent UTI Multidrug-resistant organisms Renal calculi Restrictive lung disease Rheumatoid arthritis Thalassemia Surgical History H/O lithotripsy S/P TAVR (transcatheter aortic valve replacement) (~2018) Family History Mother Stroke Father Myocardial infarction Other CAD (coronary artery disease) Chronic kidney disease (CKD) Diabetes Hypertension Social History Smoking and tobacco status: former smoker Quit status (tobacco): has quit using tobacco Year quit tobacco: 2019 - Chewing Tobacco Former quit date comment: Hx of 1/2 can x 50 Years Second hand smoke exposure: No Alcohol intake: former Lives independently: No Household members: spouse Marital status: Current occupational status: retired and disabled History of recent travel: No Current gender identity: Male Physical Exam Narrative: GEN: Awake, alert and oriented, lying in bed comfortably CVS: S1S2 N RS: CTA B/L Abd: Soft, nt/nd , bs+ 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 BATTERY: no focal neuro deficits Const: COMMON NORMALS: alert; apparent distress and negative for patient oriented x3 GENERAL APPEARANCE: in distress ORIENTATION/CONSCIOUSNESS: Yes oriented to person; not oriented to place and not oriented to time HENMT: COMMON NORMALS: normocephalic, atraumatic and TM's normal bilaterally HEAD & SCALP: normocephalic and atraumatic TYMPANIC MEMBRANE: TM's normal bilaterally Eye: COMMON NORMALS: Equal, round and reactive pupils present and conjunctivae normal CONJUNCTIVA: Yes conjunctivae normal PUPIL: Yes Equal, round and reactive pupils present Neck/C-Spine: COMMON NORMALS: full ROM and supple Lymph: LYMPHATIC: no lymphadenopathy noted Chest: COMMONS NORMALS: normal inspection of the chest and normal palpation of entire chest wall Resp: COMMON NORMALS: normal respiratory effort and clear to auscultation bilaterally EFFORT & INSPECTION: Yes able to speak in complete sentences AUSCULTATION: clear to auscultation bilaterally Cardio: COMMON NORMALS: regular rate and regular rhythm RATE: regular rate RHYTHM: regular rhythm GI: COMMON NORMALS: Normal to inspection, nondistended, normoactive bowel sounds present, Soft to palpation and non-tender PALPATION: Yes Soft to palpation Extremity: COMMON NORMALS: normal to inspection and full ROM Neuro: COMMON NORMALS: negative for patient oriented x3 SENSORIUM/ORIENTATION: Yes alert, Yes oriented to person, No oriented to place and No oriented to time Psych: COMMON NORMALS: negative for mental status grossly normal Skin: COMMON NORMALS: no rashes or lesions noted GENERAL SKIN EXAM: no rashes or lesions noted Course Vital Signs: Vital signs: Vital Signs Temperature 98.6 F 07/13/22 01:08 Pulse Rate 85 07/13/22 01:08 Respiratory Rate 16 07/13/22 01:08 Blood Pressure 121/78 07/13/22 01:08 Pulse Oximetry 97 07/13/22 01:08 MDM - Altered Mental Status Medical Decision Making Patient presents here with altered mental status likely due to acute cystitis patient is otherwise well-appearing here he is quite confused will admit for IV antibiotics. Lab Data : 07/13/22 01:20 07/13/22 01:[address] 07/13/22 01:04 IMPRESSION: 1. No acute intracranial hemorrhage or mass effect. 2. Changes of microvascular disease, and old infarcts, details above. 3. No definite acute infarct by CT, see above. 4. Other findings discussed above. Laboratory Results WBC 13.6 10^3/uL (4.0-10.0) H 07/13/22 01:20 RBC 7.06 10^6/uL (4.1-5.3) H 07/13/22 01:20 Hgb 12.6 g/dL (11.7-16.6) 07/13/22 01:20 Hct 42.8 % (42.0-52.0) 07/13/22 01:20 MCV 60.6 fl (80-94) L 07/13/22 01:20 MCH 17.8 pg (28.0-34.0) L 07/13/22 01:20 MCHC 29.4 g/dL (30.0-36.0) L 07/13/22 01:20 RDW 21.1 % (12.1-15.1) H 07/13/22 01:20 Plt Count 259 10^3/cmm (130-400) 07/13/22 01:20 MPV 11.3 fL (7.4-10.4) H 07/13/22 01:20 Neut % (Auto) 81.4 % 07/13/22 01:20 Lymph % (Auto) 9.5 % 07/13/22 01:20 [place] % (Auto) 7.5 % 07/13/22 01:20 Eos % (Auto) 0.5 % 07/13/22 01:20 Baso % (Auto) 0.4 % 07/13/22 01:20 Neut # (Auto) 11.09 10^3/uL (1.8-7.7) H 07/13/22 01:20 Lymph # (Auto) 1.3 10^3/uL (0.8-4.8) 07/13/22 01:20 [place] # (Auto) 1.0 10^3/uL (0.2-0.9) H 07/13/22 01:20 Eos # (Auto) 0.1 10^3/uL (0.0-0.8) 07/13/22 01:20 Baso # (Auto) 0.1 10^3/uL (0.0-0.1) 07/13/22 01:20 Nucleated RBC % (auto) 0 % 07/13/22 01:20 Nucleated RBCs # 0.0 /100WBC 07/13/22 01:20 PT 21.10 SECONDS (12.1-14.9) H 07/13/22 01:20 INR 1.78 (0.8-1.2) H 07/13/22 01:20 Sodium 142 mmol/L (136-145) 07/13/22 01:20 Potassium 3.4 mmol/L (3.5-5.1) L 07/13/22 01:20 Chloride 100 mmol/L (98-107) 07/13/22 01:20 Carbon Dioxide 29 mmol/L (22-29) 07/13/22 01:20 Anion Gap 16.4 (5-19) 07/13/22 01:20 BUN 38 mg/dL (8-23) H 07/13/22 01:20 Creatinine 1.1 mg/dL (0.7-1.2) 07/13/22 01:20 GFR Calculation 66.6 mL/min (90-130) L 07/13/22 01:20 Glucose 197 mg/dL (65-115) H 07/13/22 01:20 Calculated Osmolality 309 mOsm/kg (285-295) H 07/13/22 01:20 Lactate 2.7 mmol/L (0.5-2.2) H 07/13/22 01:20 Calcium 9.2 mg/dL (8.5-10.5) 07/13/22 01:20 Magnesium 1.9 mg/dL (1.7-2.3) 07/13/22 01:20 Total Bilirubin 0.8 mg/dL (0.15-1.2) 07/13/22 01:20 AST 21 U/L (0-40) 07/13/22 01:20 ALT 19 U/L (0-41) 07/13/22 01:20 Alkaline Phosphatase 67 U/L (40-130) 07/13/22 01:20 Total Protein 6.2 g/dL (6.6-8.7) L 07/13/22 01:20 Albumin 3.5 g/dL (3.5-5.2) 07/13/22 01:20 Globulin 2.7 g/dL (1.3-4.6) 07/13/22 01:20 Lipase 23 U/L (13-60) 07/13/22 01:20 Urine Color Yellow (Yellow) 07/13/22 01:57 Urine Appearance Sl hazy (CLEAR) 07/13/22 01:57 Urine pH 5 (5-7) 07/13/22 01:57 Ur Specific [place] 1.015 (1.005-1.030) 07/13/22 01:57 Urine Protein Neg (Negative) 07/13/22 01:57 Urine Glucose (UA) Norm (Normal) 07/13/22 01:57 Urine Ketones Negative (Negative) 07/13/22 01:57 Urine Blood 3+ (Negative) H 07/13/22 01:57 Urine Nitrate Negative (Negative) 07/13/22 01:57 Urine Bilirubin Neg (Negative) 07/13/22 01:57 Urine Urobilinogen Norm mg/dL (Negative) 07/13/22 01:57 Ur Leukocyte Esterase 2+ (Negative) H 07/13/22 01:57 Urine RBC Too numerous to cnt /hpf (0-2) H 07/13/22 01:57 Urine WBC Too numerous to cnt /hpf (0-5) H 07/13/22 01:57 Ur Squamous Epith Cells 0-4 /hpf (0-5) H 07/13/22 01:57 Amorphous Sediment Not Reportable 07/13/22 01:57 Urine Bacteria 4+ /hpf (NONE) H 07/13/22 01:57 Hyaline Casts 5-10 /lpf H 07/13/22 01:57 Ethyl Alcohol < 10 mg/dL (0-10) 07/13/22 01:20 SARS-CoV-2 Ag (Rapid) Negative (Negative) 07/13/22 01:22 EKG Data EKG 1: I personally reviewed and interpreted this EKG as follows: EKG interpretation date: 07/13/22 EKG interpretation time: 01:13 Interpretation: afib hr [address] or t wave abnormalities qrs 91 qtc 422 Discharge Plan Discharge Patient Disposition: Admitted As Inpatient Clinical Impression: Altered mental status, Acute cystitis Condition: Stable Prescriptions: No Action tamsulosin 0.4 mg capsule 0.4 mg PO DAILY@06 citalopram [Celexa] 10 mg tablet 10 mg PO QAM nitroglycerin [Nitrostat] 0.4 mg tablet, sublingual 0.4 mg SUBLINGUAL Q5M PRN (Reason: Chest Pain) carvedilol 6.25 mg tablet 9.375 mg PO BID Rx Instructions: (1.5 tab =9.375mg) bumetanide 2 mg tablet 2 mg PO QAM ascorbic acid (vitamin C) 1,000 mg tablet 1 g PO BID fosfomycin tromethamine 3 gram packet 1 packet PO Q3D 60 Days Qty: 20 6RF leflunomide 10 mg tablet 10 mg PO DAILY Qty: 30 3RF prednisone 5 mg tablet 7.5 mg PO QAM Qty: 45 2RF potassium chloride 20 mEq Tablet Extended Release 20 meq PO BID pantoprazole [Protonix] 40 mg Tablet,Delayed Release (Dr/Ec) 40 mg PO DAILY@06 aspirin 81 mg Tablet,Delayed Release (Dr/Ec) 81 mg PO DAILY@06 Lantus Solostar U-100 Insulin 100 unit/mL (3 mL) insulin pen See Rx Instructions .ROUTE .COMPLEX Rx Instructions: 40 units qam and 30 units qpm Florajen Acidophilus 20 billion cell Capsule 20,000 mmu cells PO QPM PNV cmb#95-ferrous fumarate-FA [ Multivitamins] 28 mg iron- 800 mcg Tablet 1 tab PO DAILY@06 atorvastatin 40 mg tablet 40 mg PO DAILY@19 diltiazem HCl 120 mg capsule,extended release 24hr 120 mg PO DAILY@06 hydroxyzine pamoate 25 mg capsule 25 mg PO BID PRN (Reason: Anxiety) lisinopril 2.5 mg Tablet 2.5 mg PO DAILY Qty: 0 acetaminophen 500 mg Tablet 500 mg PO Q6H PRN (Reason: Pain) warfarin 5 mg tablet 7.5 mg PO QPM Referrals: Faustina Gonzalez NP [Primary Care Provider] - Coding Level of Care Code ED 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
[2022-07-13 01:37] LABS: Basophils # 0.1 10^3/uL (0.0-0.1); Basophils % 0.4 %; Eosinophils # 0.1 10^3/uL (0.0-0.8); Eosinophils % 0.5 %; Hematocrit 42.8 % (42.0-52.0); Hemoglobin 12.6 g/dL (11.7-16.6); Lymphocytes # 1.3 10^3/uL (0.8-4.8); Lymphocytes % 9.5 %; Mean Corpuscular HGB Conc 29.4 g/dL (30.0-36.0); Mean Corpuscular Hemoglobin 17.8 pg (28.0-34.0); Mean Corpuscular Volume 60.6 fl (80-94); Monocytes % 7.5 %; Neutrophils # 11.09 10^3/uL (1.8-7.7); Neutrophils % 81.4 %; Nucleated Red Blood Cells % 0 %; Platelet Count 259 10^3/cmm (130-400); Positive M 1; Red Blood Count 7.06 10^6/uL (4.1-5.3); Red Cell Distribution Width 21.1 % (12.1-15.1); White Blood Count 13.6 10^3/uL (4.0-10.0)
[2022-07-13 01:49] LABS: SARS Covid-2 Antigen Negative (Negative)
[2022-07-13 01:51] LABS: INR 1.78 (0.8-1.2)
[2022-07-13 01:56] LABS: Lactate (Lactic Acid level) 2.7 mmol/L (0.5-2.2)
[2022-07-13 01:57] LABS: Alanine Aminotransferase 19 U/L (0-41); Albumin Level 3.5 g/dL (3.5-5.2); Alkaline Phosphatase 67 U/L (40-130); Anion Gap 16.4 (5-19); Aspartate Amino Transferase 21 U/L (0-40); Blood Urea Nitrogen 38 mg/dL (8-23); Calcium 9.2 mg/dL (8.5-10.5); Carbon Dioxide 29 mmol/L (22-29); Chloride 100 mmol/L (98-107); Creatinine Clr Calc Pharmacy 86.0371; Globulin 2.7 g/dL (1.3-4.6); Glomerular Filtration Rate 66.6 mL/min (90-130); Glucose 197 mg/dL (65-115); Lipase 23 U/L (13-60); Magnesium 1.9 mg/dL (1.7-2.3); Osmolality Calculated 309 mOsm/kg (285-295); Potassium 3.4 mmol/L (3.5-5.1); Sodium 142 mmol/L (136-145); Total Bilirubin 0.8 mg/dL (0.15-1.2); Total Protein 6.2 g/dL (6.6-8.7)
[2022-07-13 02:05] LABS: Alcohol Level < 10 mg/dL (0-10)
[2022-07-13 02:16] LABS: Mean Platelet Volume 11.3 fL (7.4-10.4)
[2022-07-13 02:19] LABS: Slide Review Slide Review Perform
[2022-07-13 02:35] LABS: Add Urine Microscopic? YES; Bilirubin Urine Neg (Negative); Blood Urine 3+ (Negative); Glucose Urine UA Norm (Normal); Ketones Urine Negative (Negative); Leukocyte Esterase Urine 2+ (Negative); Nitrate Urine Negative (Negative); Protein Urine Neg (Negative); Specific Gravity, Urine 1.015 (1.005-1.030); Urine Appearance SL Hazy (CLEAR); Urine Color Yellow (Yellow); Urobilinogen Urine Norm (Negative); pH Urine 5 (5-7)
[2022-07-13 02:36] LABS: Add Urine Culture? Yes; Bacteria Urine 4+ /hpf; RBC Urine TOO NUMEROUS TO CNT /hpf (0-2); Squamous Epithelial Cell Urine 0-4 /hpf (0-5); WBC Urine TOO NUMEROUS TO CNT /hpf (0-5)
[2022-07-13] MEDS: aztreonam 2,000 MG in sodium chloride 0.9% (plus) 100 ML 200 MG IV (03:30)
--- NOTE | 2022-07-13 03:38 | CTR_ITS ---
PROCEDURE INFORMATION: Exam: CT Abdomen And Pelvis Without Contrast Exam date and time: 07/13/2022 4:19 AM Age: 66 years old Clinical indication: Prior surgery; Surgery type: Tavr. Lithotripsy. Patient HX: Bacteriuria. History of recurrent utis; Additional info: UTI TECHNIQUE: Imaging protocol: Computed tomography of the abdomen and pelvis without contrast. Radiation optimization: All CT scans at this facility use at least one of these dose optimization techniques: automated exposure control; mA and/or kV adjustment per patient size (includes targeted exams where dose is matched to clinical indication); or iterative reconstruction. COMPARISON: CT kidney stone [id number] 10/14/2021 5:40 PM RADIATION DOSE METRICS: Total DLP (mGy-cm): 1205.63 FINDINGS: Heart: Prosthetic aortic valve noted. Mitral annulus calcifications seen. Mildly enlarged heart. Coronary atherosclerotic calcifications seen. Small pericardial effusion visualized. Liver: The liver demonstrates volume redistribution and nodular contour, consistent with cirrhosis. No discrete mass lesion seen. Gallbladder and bile ducts: Cholelithiasis is present. No pericholecystic inflammatory changes to suggest cholecystitis. Pancreas: Normal. No ductal dilation. Spleen: There is tiny calcific densities scattered throughout the spleen, likely sequela of previous granulomatous disease. The spleen is otherwise unremarkable. Adrenal glands: Normal. No mass. Kidneys and ureters: There is bilateral nonobstructive kidney stones, the largest on the right measuring 0.8 cm. No hydronephrosis. Unchanged incompletely characterized bilateral kidney lesions, the largest on the right measuring approximately 5.1 cm. Unchanged nonspecific stranding of the perirenal fat bilaterally. Stomach and bowel: There is diverticulosis without evidence of diverticulitis. Appendix: No evidence of appendicitis. Intraperitoneal space: Unremarkable. No free air. No significant fluid collection. Vasculature: Moderate diffuse atherosclerotic disease is present. Lymph nodes: Unremarkable. No enlarged lymph nodes. Urinary bladder: Unremarkable as visualized. Reproductive: Mildly enlarged prostate with coarse calcifications noted. Bones/joints: Degenerative changes of the spine seen. Soft tissues: A small fat containing umbilical hernia is present. CT/CT kidney stone [id number] IMPRESSION: 1. Unchanged nonspecific perinephric stranding bilaterally. Pyelonephritis should be excluded clinically. 2. Unchanged incompletely characterized bilateral kidney lesions. Further characterization with contrast enhanced abdomen MRI in a non emergent basis should be considered. 3. Cirrhotic liver.
--- NOTE | 2022-07-13 03:41 | P.HP_ITS ---
Providers/Chief Complaint Primary Care Provider: Faustina Gonzalez NP Chief Complaint: AMS History of Present Illness Ry Loyd is a 66 year old male with a past medical see of recurrent UTIs, history of aortic stenosis status post TAVR, history of atrial fibrillation on Coumadin, history of CHF, history of chronic steroid use secondary to rheumatoid arthritis, hypertension, gout, obesity, ESBL UTIs, who presents [facility] with his for increased confusion. Currently patient is alert to person, to place, not to time, does follow commands, but is confused, mostly history was brought by at bedside. She tells me that he has been doing well with his fosfomycin, has been many months since his last UT I, yesterday evening she noticed that he was increasingly confused. Today his confusion worsened, he had generalized weakness, he also had blood-tinged urine yesterday, and which now has become more significant hematuria. He is also had low-grade fevers, complains of chills, no nausea, no vomiting, no flank pain complaints. Review of Systems Const: Reports: fever(s), chills, fatigue and malaise Card: Denies: chest pain Resp: Denies: dyspnea GI: Denies: abdominal pain Medications/Allergies Home Medications Medication Instructions Recorded Confirmed Last Taken Type citalopram 10 mg tablet (Celexa) 10 mg PO QAM 12/03/19 05/26/22 01/08/22 07:00 History nitroglycerin 0.4 mg sublingual 0.4 mg sublingual Q5M PRN Chest 12/03/19 05/26/22 11/10/21 History tablet (Nitrostat) Pain tamsulosin 0.4 mg capsule 0.4 mg PO DAILY@12/03/19 05/26/22 01/08/22 07:00 History pantoprazole 40 mg tablet,delayed 40 mg PO DAILY@12/25/19 05/26/22 01/08/22 07:00 History release (Protonix) potassium chloride 20 mEq 20 meq PO BID 12/25/19 05/26/22 01/08/22 07:00 History tablet,extended release aspirin 81 mg tablet,delayed 81 mg PO DAILY@10/10/20 05/26/22 01/07/22 20:00 History release carvedilol 6.25 mg tablet 9.375 mg PO BID 10/30/20 05/26/22 01/08/22 07:00 History atorvastatin 40 mg tablet 40 mg PO DAILY@02/17/21 05/26/22 01/07/22 20:00 History diltiazem HCl 120 mg 120 mg PO DAILY@02/17/21 05/26/22 01/08/22 07:00 History capsule,extended release 24 hr ascorbic acid (vitamin C) 1,000 mg 1 g PO BID 04/23/21 05/26/22 01/08/22 07:00 History tablet bumetanide 2 mg tablet 2 mg PO QAM 04/23/21 05/26/22 01/07/22 08:00 History hydroxyzine pamoate 25 mg capsule 25 mg PO BID PRN Anxiety 04/23/21 05/26/22 01/07/22 20:00 History Lactobacillus acidophilus 20 20,000 mmu cells PO QPM 07/12/21 05/26/22 01/07/22 07:00 History billion cell capsule (Florajen Acidophilus) insulin glargine 100 unit/mL (3 See Rx Instructions .Route .COMPLEX 07/12/21 05/26/22 01/08/22 07:00 History mL) subcutaneous pen (Lantus Solostar U-100 Insulin) vit no.95-ferrous 1 tab PO DAILY@07/12/21 05/26/22 01/08/22 07:00 History fumarate 28 mg-folic acid 800 mcg tablet ( Multivitamins) lisinopril 2.5 mg tablet 2.5 mg PO DAILY ##0 10/14/21 05/26/22 01/07/22 20:00 History acetaminophen 500 mg tablet 500 mg PO Q6H PRN Pain 12/29/21 05/26/22 01/03/22 History warfarin 5 mg tablet 7.5 mg PO QPM 12/29/21 05/26/22 01/07/22 20:00 History leflunomide 10 mg tablet 10 mg PO DAILY #30 tabs 05/18/22 05/26/22 Unknown Rx fosfomycin tromethamine 3 gram 1 packet PO Q3D 60 days #20 ea 05/26/22 05/26/22 Unknown Rx oral packet prednisone 5 mg tablet 7.5 mg PO QAM #45 tabs 06/03/22 Unknown Rx Allergies Allergy/AdvReac Type Severity Reaction Status Date / Time ceftriaxone [From Rocephin] Allergy Intermediate ALGY-Difficulty Verified 05/26/22 11:01 Breathing levofloxacin [From Levaquin] Allergy Mild ADR-Itching Verified 05/26/22 11:01 iodine Allergy Unknown Unknown Verified 05/26/22 11:01 clopidogrel [From Plavix] AdvReac Intermediate Unknown Verified 05/26/22 11:01 PFSH Acute PFSH: Medical History Aortic stenosis Had TAVR replacement 2018 Atrial fibrillation Bilateral renal masses CHF (congestive heart failure) EF 45 by transesophageal echo January 2019 Chronic use of steroids CVA (cerebral vascular accident) Dementia Diabetes Dyslipidemia Endocarditis history of chronic viridans endocarditis, 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 Essential hypertension Gout Hx of [place] spotted fever Ischemic cardiomyopathy Left ventricular hypertrophy Obesity AJAY (obstructive sleep apnea) Pulmonary HTN Recurrent UTI Multidrug-resistant organisms Renal calculi Restrictive lung disease Rheumatoid arthritis Thalassemia Surgical History H/O lithotripsy S/P TAVR (transcatheter aortic valve replacement) (~2017) Family History Mother Stroke Father Myocardial infarction Other CAD (coronary artery disease) Chronic kidney disease (CKD) Diabetes Hypertension Social History Smoking and tobacco status: former smoker Quit status (tobacco): has quit using tobacco Year quit tobacco: 2019 - Chewing Tobacco Former quit date comment: Hx of 1/2 can x 50 Years Second hand smoke exposure: No Alcohol intake: former Lives independently: No Household members: spouse Marital status: Current occupational status: retired and disabled History of recent travel: No Current gender identity: Male Vitals/I&O/Wt Last Vital Signs Temp 98.6 F 07/13/22 01:08 Pulse 82 07/13/22 03:31 Resp 16 07/13/22 03:31 BP 146/84 07/13/22 03:31 Pulse Ox 97 07/13/22 03:31 Weight last 48 hrs Weight 120.202 kg Physical Exam Const: COMMON NORMALS: no acute distress EXAM LIMITATIONS: altered mental status ORIENTATION/CONSCIOUSNESS: Yes awake, Yes oriented to person, Yes oriented to place and Yes confused; not oriented to time HENMT: COMMON NORMALS: normocephalic HEAD & SCALP: normocephalic Neck/C-Spine: COMMON NORMALS: no JVD Resp: COMMON NORMALS: normal respiratory effort, No retractions, No use of accessory muscles and clear to auscultation bilaterally AUSCULTATION: clear to auscultation bilaterally Cardio: COMMON NORMALS: no JVD, regular rate, regular rhythm, S1 normal heart sound present and S2 normal heart sound present RATE: regular rate RHYTHM: regular rhythm HEART SOUNDS: S1 normal heart sound present and S2 normal heart sound present GI: COMMON NORMALS: Normal to inspection, nondistended, normoactive bowel sounds present, Soft to palpation, non-tender, No hepatosplenomegaly present, no masses and no bruits PALPATION: Yes Soft to palpation and Yes No hepatosplenomegaly present Extremity: COMMON NORMALS: capillary refill normal, no clubbing, cyanosis or edema, no calf tenderness and no pedal edema Data : 07/13/22 01:20 07/13/22 01:20 Micro: Microbiology 07/13/22 01:30 Blood Culture - Preliminary Blood SPECIMEN COLLECTED 07/13/22 01:34 Blood Culture - Preliminary Blood SPECIMEN COLLECTED A&P Assessment and plan (1) Altered mental status: Status: Acute (2) Acute cystitis: Status: Acute (3) Diabetes: Status: Chronic (4) S/P TAVR (transcatheter aortic valve replacement): Status: Chronic (5) AJAY (obstructive sleep apnea): Status: Chronic (6) Dyslipidemia: Status: Chronic (7) Chronic anticoagulation: Status: Chronic (8) Atrial fibrillation: Status: Chronic (9) Congestive heart failure: Status: Chronic Plan Acute encephalopathy -Likely secondary to UTI -Has a history of ESBL UTIs -Start Primaxin, follow urine cultures, blood cultures -Neurochecks, aspiration precautions -Has a history of nephrolithiasis, complaints of hematuria, will order CT renal protocol -Monitor mentation -Full code -Coumadin for DVT prophylaxis UTI, as above Type 2 diabetes mellitus, low-dose sliding scale History of atrial fibrillation, continue Coumadin, check INR CHF, not in exacerbation Attestations Medical Necessity Statement*: Patient requires hospitalization, outpatient observation, for UTI, acute encephalopathy, elevated lactic acid Coding Level of Care Code Acute Parking Officer for Chg Fwd Diagnoses Altered mental status R41.82 Acute cystitis N30.00 Diabetes E11.9 S/P TAVR (transcatheter aortic valve replacement) Z95.2 AJAY (obstructive sleep apnea) G47.33 Dyslipidemia E78.5 Chronic anticoagulation Z79.01 Atrial fibrillation I48.91 Congestive heart failure I50.9
[2022-07-13 03:43] LABS: Ammonia 21 umol/L (16-60)
[2022-07-13 05:31] LABS: Estmated Average Glucose 192; Hemoglobin A1C 8.3 % (4.0-6.0)
[2022-07-13 05:59] LABS: Thyroid Stimulating Hormone 1.51 uIU/mL (0.27-4.20)
--- NOTE | 2022-07-13 07:08 | PC.NURSE ---
Report from ANTWON Marion
[2022-07-13] MEDS: predniSONE 5 mg Tablet 7.5 MG PO (07:25)
[2022-07-13] MEDS: pantoprazole DR 40 mg Tablet PO (07:25)
[2022-07-13] MEDS: citalopram 20 mg Tablet 10 MG PO (07:26)
[2022-07-13] MEDS: tamsulosin 0.4 mg Capsule PO (07:27)
[2022-07-13] MEDS: aspirin 81 mg EC Tablet PO (07:28)
[2022-07-13] MEDS: bumetanide 1 mg Tablet 2 MG PO (07:28)
[2022-07-13] MEDS: dilTIAZem ER (24HR) 120 mg Capsule PO (07:28)
[2022-07-13 07:43] LABS: Glucose Point of Care 150 mg/dL (70-110)
[2022-07-13] MEDS: insulin lispro 100 unit/1 mL SUBCUT (08:21)
[2022-07-13] MEDS: ascorbic acid 500 mg Tablet 1000 MG PO ×2 (08:23→18:27)
[2022-07-13] MEDS: carvedilol 6.25 mg Tablet 9.375 MG PO (08:23)
[2022-07-13] MEDS: lisinopril 2.5 mg Tablet PO (08:23)
[2022-07-13] MEDS: potassium chloride ER 20 mEq Tablet PO ×2 (08:23→18:28)
--- NOTE | 2022-07-13 10:32 | XRR_ITS ---
PROCEDURE INFORMATION: Exam: XR Abdomen Exam date and time: 07/13/2022 10:40 AM Age: 66 years old Clinical indication: Vomiting TECHNIQUE: Imaging protocol: Radiologic exam of the abdomen. Views: Frontal supine view of the abdomen. 1 View. COMPARISON: CT kidney stone [id number] 07/13/2022 4:19 AM FINDINGS: Heart/Mediastinum: Heart is mildly enlarged. An aortic valve stent is present. Gastrointestinal tract: Gas is present throughout multiple loops of nondilated small bowel and colon. There is no evidence of obstruction. Bones/joints: Unremarkable. XR/XR KUB portable [id number] IMPRESSION: No acute abnormality is seen in the abdomen.
--- NOTE | 2022-07-13 10:37 | PM.MISC ---
Miscellaneous Note Note: Patient was seen in the ER Patient was recent dry heaves when evaluated him He was able to tell me his name, when asked why is in the hospital he said he does not know I called his ER nurse to give him Zofran 4 mg He is hemodynamically stable He was in Trendelenburg position when I question nurse regarding that position she said he was try to get out of the bed No active signs of stroke Looks clinically dehydrated Skin excoriation Dry skin S1, S2 variable A. fib RVR Abdomen distended, soft, scar noticed around glucose Dorsum to no edema He is able to move his extremities He was then left lateral position I raise his head end Assessment and plan Pyelonephritis History of ESBL UTI in the past History of liver cirrhosis Acute metabolic encephalopathy related to pyelonephritis Patient is not septic Blood cultures are taken Continue antibiotics Continue IV fluid hydration Repeat KUB patient is having dry heaves CT abdomen pelvis did not show any signs of obstruction, there is no comment on stomach on the CT report There is diverticulosis of colon without any obstruction Mild leukocytosis Patient is full code Will discuss goals of care with his family Hypokalemia: Repleted Hemoglobin A1c 8.3 Lactic acidemia related to dehydration: Improved
[2022-07-13] MEDS: ondansetron 2 mg/ML SDV 2 mL 4 MG IVP (11:05)
[2022-07-13 11:06] LABS: Glucose Point of Care 100 mg/dL (70-110)
--- NOTE | 2022-07-13 11:24 | PC.NURSE ---
Report called to ANTWON Campoverde
--- NOTE | 2022-07-13 12:15 | PC.PHAR ---
pt states his takes care of his medications-pts patricio [phone] states the pt takes bumetanide 2mg in the am and an additional 2mg tab prn rx filled 06/18/22 2mg bid-carvedilol 6.25mg bid rx filled 05/28/22 fpr 9.375 (1.5 tab) bid-hydroxyzine pamoate 25mg hs rx filled 06/18/22 30d/s for 25mg bid prn-lantus solostar 43 units in the am and 20-22 units hs rx filled 01/26/22 70 units bid-lisinopril 2.5mg daily prn for bp 130/80 rx filled 03/01/22 30d/s 2.5mg daily-notes are made in the pharmacy comments
[2022-07-13] MEDS: sodium chloride 0.9% 1,000 ML 999 ML IV ×2 (12:55→14:22)
[2022-07-13] MEDS: hydrocortisone 100 mg/2 mL SDV IVP (13:03)
[2022-07-13 15:28] LABS: Lactate (Lactic Acid level) 1.5 mmol/L (0.5-2.2)
[2022-07-13 16:39] LABS: Glucose Point of Care 122 mg/dL (70-110)
[2022-07-13] MEDS: vancomycin 1,250 MG/250 ML PIGGYBACK 250 MG IV (17:04)
[2022-07-13] MEDS: atorvastatin 40 mg Tablet PO (18:28)
[2022-07-13] MEDS: warfarin 5 mg Tablet 7.5 MG PO (19:33)
[2022-07-13 22:15] LABS: Glucose Point of Care 185 mg/dL (70-110)
[2022-07-14] VITALS (64 sets, daily range): BP systolic 82–156; BP diastolic 50–122; PULSE 66–106; RESP 6–30; TEMP 35.8–36.4; O2SAT 92–99
[2022-07-14] MEDS: hydrocortisone 100 mg/2 mL SDV IVP ×2 (00:45→13:07)
[2022-07-14] MEDS: vancomycin 1,250 MG/250 ML PIGGYBACK 250 MG IV (05:08)
[2022-07-14] MEDS: aspirin 81 mg EC Tablet PO (05:10)
[2022-07-14] MEDS: tamsulosin 0.4 mg Capsule PO (05:10)
[2022-07-14] MEDS: pantoprazole DR 40 mg Tablet PO (05:10)
[2022-07-14] MEDS: citalopram 20 mg Tablet 10 MG PO (05:10)
[2022-07-14 05:38] LABS: Basophils # 0.1 10^3/uL (0.0-0.1); Basophils % 0.3 %; Eosinophils % 0.1 %; Hematocrit 36.7 % (42.0-52.0); Hemoglobin 10.7 g/dL (11.7-16.6); Lymphocytes # 1.3 10^3/uL (0.8-4.8); Lymphocytes % 8.9 %; Mean Corpuscular HGB Conc 29.2 g/dL (30.0-36.0); Mean Corpuscular Hemoglobin 17.6 pg (28.0-34.0); Mean Corpuscular Volume 60.5 fl (80-94); Monocytes # 0.8 10^3/uL (0.2-0.9); Monocytes % 5.6 %; Neutrophils # 12.28 10^3/uL (1.8-7.7); Neutrophils % 84.4 %; Nucleated Red Blood Cells % 0 %; Platelet Count 180 10^3/cmm (130-400); Red Blood Count 6.07 10^6/uL (4.1-5.3); Red Cell Distribution Width 20.4 % (12.1-15.1); White Blood Count 14.6 10^3/uL (4.0-10.0)
[2022-07-14 06:04] LABS: Alanine Aminotransferase 16 U/L (0-41); Albumin Level 2.6 g/dL (3.5-5.2); Alkaline Phosphatase 65 U/L (40-130); Anion Gap 14.7 (5-19); Aspartate Amino Transferase 24 U/L (0-40); Blood Urea Nitrogen 33 mg/dL (8-23); Calcium 8.2 mg/dL (8.5-10.5); Carbon Dioxide 28 mmol/L (22-29); Chloride 102 mmol/L (98-107); Creatinine Clr Calc Pharmacy 105.1564; Glomerular Filtration Rate 83.9 mL/min (90-130); Glucose 176 mg/dL (65-115); Magnesium 1.8 mg/dL (1.7-2.3); Osmolality Calculated 304 mOsm/kg (285-295); Phosphorus 3.4 mg/dL (2.5-4.5); Potassium 3.7 mmol/L (3.5-5.1); Sodium 141 mmol/L (136-145); Total Bilirubin 0.7 mg/dL (0.15-1.2); Total Protein 5.6 g/dL (6.6-8.7)
[2022-07-14 07:15] LABS: Slide Review Slide Review Perform
[2022-07-14 08:26] LABS: Glucose Point of Care 169 mg/dL (70-110)
[2022-07-14] MEDS: ascorbic acid 500 mg Tablet 1000 MG PO ×2 (08:40→17:21)
[2022-07-14] MEDS: insulin lispro 100 unit/1 mL SUBCUT ×3 (08:40→17:22)
[2022-07-14] MEDS: potassium chloride ER 20 mEq Tablet PO ×2 (08:40→17:22)
[2022-07-14] MEDS: sodium chloride 0.9% 1,000 ML 50 ML IV (09:05)
[2022-07-14 12:44] LABS: Glucose Point of Care 253 mg/dL (70-110)
--- NOTE | 2022-07-14 13:04 | P.PN_ITS ---
Subjective Subjective: Patient is feeling well today, is much more awake and alert Is able to tell me why he is in the hospital He was able to me his name, date of his 's name Levophed has been turned off since 4 AM this morning Continue normal saline for now He is tolerating his diet Vitals/I&O/Wt Last Vital Signs Temp 98.0 F 07/13/22 20:00 Pulse 84 07/14/22 10:00 Resp 20 H 07/14/22 10:00 BP 103/60 07/14/22 10:00 Pulse Ox 96 07/14/22 11:48 O2 Del Method 07/14/22 11:48 O2 Flow Rate 2 07/14/22 11:48 07/13/22 07/14/22 07/14/22 22:59 06:59 14:59 Intake Total 1491.402 / 2591.402 516.370 / 3107.772 400 / 400 Output Total 425 / 1825 1000 / 2825 Balance 1066.402 / 766.402 -483.630 / 282.772 400 / 400 Weight last 48 hrs Weight 120.202 kg Physical Exam Narrative: Awake and alert Hydration status seems better Abdomen is soft, distended nontender Scar around umbilicus No signs of edema of legs Awake and alert Nonfocal neuro exam No signs of stroke No signs of meningitis or encephalitis No audible stridor or wheezing Currently on 2 L nasal cannula Chest pain Urinary Catheter Management: Arriola: Cath Placed During This Visit: yes Reason for Continuing Indwelling Catheter: Accurate Measurement of Urinary Output in Critically Ill Patients Urinary Catheter Date of Insertion: 07/13/22 Urinary Catheter Time of Insertion: 05:57 Data : 07/14/22 05:07 07/14/22 05:07 Micro: Microbiology 07/13/22 01:57 Urine Culture - Preliminary Urine,Clean Catch Gram Negative Rods 07/13/22 01:34 Blood Culture - Preliminary Blood 07/13/22 01:30 Blood Culture - Preliminary Blood NEGATIVE TO DATE A&P Assessment and plan (1) Altered mental status: Status: Acute (2) Acute cystitis: Status: Acute (3) Chronic urinary tract infection, suppressed: Status: Acute (4) Chronic antibiotic suppression: Status: Acute (5) Skin lesion: Status: Acute (6) High risk medication use: Status: Acute (7) 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: Status: Acute (8) Pyelonephritis of right kidney: Status: Acute Plan Acute metabolic encephalopathy related to UTI Resolved Patient is much more awake and alert today Patient is not septic ESBL history, continue imipenem, afebrile no leukocytosis or bacteremia GISELE wheeler I would continue his Cardizem today, Coumadin 7.5 daily basis Septic shock Improved, off levo I will do gentle fluid hydration Bumex on hold Continue IV antibiotics Cultures negative Afebrile Will DC vancomycin Adrenal insufficiency Patient has been taking prednisone on daily basis, with low blood pressure I had to give him stress dose steroids I will switch him to oral steroids tomorrow and then taper off gently Full code Can be transferred out of ICU CT abdomen pelvis showed liver cirrhosis, pyelonephritis and UTI Lives with his family Attestations Medical Necessity Statement*: Continue medical management can be transferred out of ICU Time Spent in Patient Care: 30 Coding Level of Care Code Acute Director Of Public Safety for g Fwd Diagnoses Altered mental status R41.82 Acute cystitis N30.00 Chronic urinary tract infection, suppressed N39.0; R34 Chronic antibiotic suppression Z79.2 Skin lesion L98.9 High risk medication use Z79.899 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
[2022-07-14 13:25] LABS: C Reactive Protein 95.2 mg/L (0.0-4.9)
[2022-07-14 13:31] LABS: Procalcitonin 0.32 ng/mL (0-0.5)
--- NOTE | 2022-07-14 13:35 | PC.NURSE ---
Reported INR to Dr. Oscar and clarified order for [address] Oscar states INR goal is 2-3, and ok to give evening dose of coumadin.
[2022-07-14 17:17] LABS: Glucose Point of Care 239 mg/dL (70-110)
[2022-07-14] MEDS: warfarin 5 mg Tablet 7.5 MG PO (17:22)
[2022-07-14] MEDS: atorvastatin 40 mg Tablet PO (18:13)
[2022-07-14 21:45] LABS: Glucose Point of Care 279 mg/dL (70-110)
[2022-07-15] VITALS (35 sets, daily range): BP systolic 110–159; BP diastolic 71–112; PULSE 72–110; RESP 12–23; TEMP 36.6; O2SAT 90–100
[2022-07-15] MEDS: hydrocortisone 100 mg/2 mL SDV IVP (00:34)
[2022-07-15 03:59] LABS: Basophils % 0.1 %; Eosinophils % 0.1 %; Hematocrit 35.6 % (42.0-52.0); Hemoglobin 10.6 g/dL (11.7-16.6); Lymphocytes % 7.5 %; Mean Corpuscular HGB Conc 29.8 g/dL (30.0-36.0); Mean Corpuscular Hemoglobin 17.6 pg (28.0-34.0); Monocytes # 0.8 10^3/uL (0.2-0.9); Monocytes % 5.6 %; Neutrophils # 11.66 10^3/uL (1.8-7.7); Neutrophils % 86.2 %; Nucleated Red Blood Cells % 0 %; Platelet Count 205 10^3/cmm (130-400); Red Blood Count 6.03 10^6/uL (4.1-5.3); Red Cell Distribution Width 20.1 % (12.1-15.1); White Blood Count 13.6 10^3/uL (4.0-10.0)
[2022-07-15] MEDS: sodium chloride 0.9% 1,000 ML 50 ML IV (04:22)
[2022-07-15 04:29] LABS: INR 2.92 (0.8-1.2)
[2022-07-15 04:32] LABS: Mean Platelet Volume 12.2 fL (7.4-10.4)
[2022-07-15 04:33] LABS: Vancomycin Trough 11.7 ug/mL (10-15)
[2022-07-15 04:35] LABS: Positive M 1
[2022-07-15 04:36] LABS: Albumin Level 2.6 g/dL (3.5-5.2); Alkaline Phosphatase 54 U/L (40-130); Chloride 104 mmol/L (98-107); Potassium 4.2 mmol/L (3.5-5.1); Sodium 139 mmol/L (136-145)
[2022-07-15 04:55] LABS: Alanine Aminotransferase 17 U/L (0-41); Anion Gap 12.2 (5-19); Aspartate Amino Transferase 21 U/L (0-40); Blood Urea Nitrogen 33 mg/dL (8-23); Calcium 8.5 mg/dL (8.5-10.5); Carbon Dioxide 27 mmol/L (22-29); Creatinine Clr Calc Pharmacy 105.1564; Globulin 2.9 g/dL (1.3-4.6); Glomerular Filtration Rate 83.9 mL/min (90-130); Glucose 266 mg/dL (65-115); Magnesium 1.9 mg/dL (1.7-2.3); Osmolality Calculated 305 mOsm/kg (285-295); Phosphorus 2.3 mg/dL (2.5-4.5); Total Bilirubin 0.4 mg/dL (0.15-1.2); Total Protein 5.5 g/dL (6.6-8.7)
[2022-07-15] MEDS: pantoprazole DR 40 mg Tablet PO (05:43)
[2022-07-15] MEDS: citalopram 20 mg Tablet 10 MG PO (05:43)
[2022-07-15] MEDS: dilTIAZem ER (24HR) 120 mg Capsule PO (05:44)
[2022-07-15] MEDS: tamsulosin 0.4 mg Capsule PO (05:44)
[2022-07-15] MEDS: aspirin 81 mg EC Tablet PO (05:44)
[2022-07-15 08:18] LABS: Glucose Point of Care 261 mg/dL (70-110)
[2022-07-15] MEDS: ascorbic acid 500 mg Tablet 1000 MG PO (08:23)
[2022-07-15] MEDS: potassium chloride ER 20 mEq Tablet PO (08:23)
[2022-07-15] MEDS: insulin lispro 100 unit/1 mL SUBCUT ×2 (08:23→12:36)
--- NOTE | 2022-07-15 09:38 | PM.DCS ---
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: Status: Acute (8) Pyelonephritis of right kidney: Status: Acute Reason for Visit Reason for Visit: [facility] Hospital Course Hospital Course 66-year male who has a history of dementia , ESBL Klebsiella UTI, has had taken multiple antibiotics in the past, as per the family he gets confused every time he gets UTI, this time he present to the hospital for same was confusion, at the time of evaluation he was diagnosed with sepsis, septic shock, he was given stress dose steroids, transferred to ICU required vasopressors for about 10 to 12 hours, his leukocytosis remained stable, urine culture showing gram-negative rods, previous culture showed Klebsiella ESBL sensitive to Levaquin and Augmentin, he has not shown signs of bacteremia, because of his immunocompromise state secondary to chronic steroid use for his rheumatoid arthritis I would like to avoid IV antibiotics for now and discharge him on a 2-week regimen of Augmentin, he did well with PT today, he is doing well on room air at the time of my evaluation, he was eating breakfast. He does use a walker at home. His INR remained therapeutic he has history of TAVR, A. fib takes Coumadin. I will give him referral to see Dr. 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 Lower extremity no active edema Nonfocal neuro exam Short attention span EOMI, PERRLA Urinary Catheter Management: Arriola: Cath Placed During This Visit: yes Reason for Continuing Indwelling Catheter: Accurate Measurement of Urinary Output in Critically Ill Patients Urinary Catheter Date of Insertion: 07/13/22 Urinary Catheter Time of Insertion: 05:57 Discharge Data Studies Completed and Pending Completed Studies During Hospitalization Category Date Time Status CT abdomen RS [CT kidney stone [id number]] Stat Cat Scan 07/13/22 03:[address] head wo con* [id number] Stat Cat Scan 07/13/22 01:04 Completed XR KUB portable [id number] Stat Exams 07/13/22 10:32 Completed XR chest 1V portable [id number] Stat Exams 07/13/22 01:04 Completed Pending at discharge Category Date Time Status Blood Culture Stat Lab 07/13/22 01:30 Results Complete Blood Count w/Auto AM LABS Lab 07/16/22 04:00 Ordered Comprehensive Metabolic Panel AM LABS Lab 07/16/22 04:00 Ordered Magnesium AM LABS Lab 07/16/22 04:00 Ordered Phosphorus AM LABS Lab 07/16/22 04:00 Ordered Prothrombin Time INR AM LABS Lab 07/16/22 04:00 Ordered Prothrombin Time INR AM LABS Lab 07/17/22 04:00 Ordered Urine Culture Stat Lab 07/13/22 01:57 Results Radiology Impressions Chest X-Ray 07/13/22 01:04 IMPRESSION: 1. Very mild left lower lung opacities, see above discussion 2. Other findings discussed above. Head CT 07/13/22 01:04 IMPRESSION: 1. No acute intracranial hemorrhage or mass effect. 2. Changes of microvascular disease, and old infarcts, details above. 3. No definite acute infarct by CT, see above. 4. Other findings discussed above. Abdomen/Pelvis CT 07/13/22 03:38 IMPRESSION: 1. Unchanged nonspecific perinephric stranding bilaterally. Pyelonephritis should be excluded clinically. 2. Unchanged incompletely characterized bilateral kidney lesions. Further characterization with contrast enhanced abdomen MRI in a non emergent basis should be considered. 3. Cirrhotic liver. KUB X-Ray 07/13/22 10:32 IMPRESSION: No acute abnormality is seen in the abdomen. Laboratory Results WBC 13.6 10^3/uL (4.0-10.0) H 07/15/22 03:41 RBC 6.03 10^6/uL (4.1-5.3) H 07/15/22 03:41 Hgb 10.6 g/dL (11.7-16.6) L 07/15/22 03:41 Hct 35.6 % (42.0-52.0) L 07/15/22 03:41 MCV 59.0 fl (80-94) L 07/15/22 03:41 MCH 17.6 pg (28.0-34.0) L 07/15/22 03:41 MCHC 29.8 g/dL (30.0-36.0) L 07/15/22 03:41 RDW 20.1 % (12.1-15.1) H 07/15/22 03:41 Plt Count 205 10^3/cmm (130-400) 07/15/22 03:41 MPV 12.2 fL (7.4-10.4) H 07/15/22 03:41 Neut % (Auto) 86.2 % 07/15/22 03:41 Lymph % (Auto) 7.5 % 07/15/22 03:41 [place] % (Auto) 5.6 % 07/15/22 03:41 Eos % (Auto) 0.1 % 07/15/22 03:41 Baso % (Auto) 0.1 % 07/15/22 03:41 Neut # (Auto) 11.66 10^3/uL (1.8-7.7) H 07/15/22 03:41 Lymph # (Auto) 1.0 10^3/uL (0.8-4.8) 07/15/22 03:41 [place] # (Auto) 0.8 10^3/uL (0.2-0.9) 07/15/22 03:41 Eos # (Auto) 0.0 10^3/uL (0.0-0.8) 07/15/22 03:41 Baso # (Auto) 0.0 10^3/uL (0.0-0.1) 07/15/22 03:41 Nucleated RBC % (auto) 0 % 07/15/22 03:41 Nucleated RBCs # 0.0 /100WBC 07/15/22 03:41 PT 30.80 SECONDS (12.1-14.9) H 07/15/22 03:41 INR 2.92 (0.8-1.2) H 07/15/22 03:41 Sodium 139 mmol/L (136-145) 07/15/22 03:41 Potassium 4.2 mmol/L (3.5-5.1) 07/15/22 03:41 Chloride 104 mmol/L (98-107) 07/15/22 03:41 Carbon Dioxide 27 mmol/L (22-29) 07/15/22 03:41 Anion Gap 12.2 (5-19) 07/15/22 03:41 BUN 33 mg/dL (8-23) H 07/15/22 03:41 Creatinine 0.9 mg/dL (0.7-1.2) 07/15/22 03:41 GFR Calculation 83.9 mL/min (90-130) L 07/15/22 03:41 Glucose 266 mg/dL (65-115) H 07/15/22 03:41 POC Glucose 261 mg/dL (70-110) H 07/15/22 08:08 Estimat Average Glucose 192 07/13/22 01:20 Hemoglobin A1c 8.3 % (4.0-6.0) H 07/13/22 01:20 Calculated Osmolality 305 mOsm/kg (285-295) H 07/15/22 03:41 Lactic Acid 2.0 mmol/L (0.5-2.2) 07/13/22 04:13 Lactate 1.5 mmol/L (0.5-2.2) 07/13/22 14:53 Calcium 8.5 mg/dL (8.5-10.5) 07/15/22 03:41 Phosphorus 2.3 mg/dL (2.5-4.5) L 07/15/22 03:41 Magnesium 1.9 mg/dL (1.7-2.3) 07/15/22 03:41 Total Bilirubin 0.4 mg/dL (0.15-1.2) 07/15/22 03:41 AST 21 U/L (0-40) 07/15/22 03:41 ALT 17 U/L (0-41) 07/15/22 03:41 Alkaline Phosphatase 54 U/L (40-130) 07/15/22 03:41 Ammonia 21 umol/L (16-60) 07/13/22 03:01 C-Reactive Protein 95.2 mg/L (0.0-4.9) H 07/13/22 01:20 Total Protein 5.5 g/dL (6.6-8.7) L 07/15/22 03:41 Albumin 2.6 g/dL (3.5-5.2) L 07/15/22 03:41 Globulin 2.9 g/dL (1.3-4.6) 07/15/22 03:41 Lipase 23 U/L (13-60) 07/13/22 01:20 Procalcitonin 0.32 ng/mL (0-0.5) 07/13/22 01:20 TSH 1.51 uIU/mL (0.27-4.20) 07/13/22 01:20 Urine Color Yellow (Yellow) 07/13/22 01:57 Urine Appearance Sl hazy (CLEAR) 07/13/22 01:57 Urine pH 5 (5-7) 07/13/22 01:57 Ur Specific [place] 1.015 (1.005-1.030) 07/13/22 01:57 Urine Protein Neg (Negative) 07/13/22 01:57 Urine Glucose (UA) Norm (Normal) 07/13/22 01:57 Urine Ketones Negative (Negative) 07/13/22 01:57 Urine Blood 3+ (Negative) H 07/13/22 01:57 Urine Nitrate Negative (Negative) 07/13/22 01:57 Urine Bilirubin Neg (Negative) 07/13/22 01:57 Urine Urobilinogen Norm mg/dL (Negative) 07/13/22 01:57 Ur Leukocyte Esterase 2+ (Negative) H 07/13/22 01:57 Urine RBC Too numerous to cnt /hpf (0-2) H 07/13/22 01:57 Urine WBC Too numerous to cnt /hpf (0-5) H 07/13/22 01:57 Ur Squamous Epith Cells 0-4 /hpf (0-5) H 07/13/22 01:57 Amorphous Sediment Not Reportable 07/13/22 01:57 Urine Bacteria 4+ /hpf (NONE) H 07/13/22 01:57 Hyaline Casts 5-10 /lpf H 07/13/22 01:57 Vancomycin Trough 11.7 ug/mL (10-15) 07/15/22 03:41 Ethyl Alcohol < 10 mg/dL (0-10) 07/13/22 01:20 SARS-CoV-2 Ag (Rapid) Negative (Negative) 07/13/22 01:22 Vitals Last Vital Signs Temp 96.4 F L 07/14/22 20:00 Pulse 98 07/15/22 06:30 Resp 21 H 07/15/22 06:30 BP 159/103 07/15/22 06:30 Pulse Ox 95 07/15/22 06:30 O2 Del Method 07/14/22 12:58 O2 Flow Rate 2 07/14/22 12:58 Discharge Plan Discharge Patient Disposition: Home Condition: Stable Prescriptions: New amoxicillin-pot clavulanate 875-125 mg tablet 1 tab PO BID Qty: 28 0RF Continued tamsulosin 0.4 mg capsule 0.4 mg PO DAILY@06 citalopram [Celexa] 10 mg tablet 10 mg PO QAM carvedilol 6.25 mg tablet 6.25 mg PO BID bumetanide 2 mg tablet See Rx Instructions .ROUTE .COMPLEX Rx Instructions: 2 mg po qam and takes an additional 2mg if needed fosfomycin tromethamine 3 gram packet 1 packet PO Q3D 60 Days Qty: 20 6RF leflunomide 10 mg tablet 10 mg PO DAILY Qty: 30 3RF prednisone 5 mg tablet 7.5 mg PO QAM Qty: 45 2RF potassium chloride 20 mEq Tablet Extended Release 20 meq PO BID pantoprazole [Protonix] 40 mg Tablet,Delayed Release (Dr/Ec) 40 mg PO DAILY@06 aspirin 81 mg Tablet,Delayed Release (Dr/Ec) 81 mg PO BEDTIME insulin glargine [Lantus Solostar U-100 Insulin] 100 unit/mL (3 mL) insulin pen See Rx Instructions .ROUTE .COMPLEX Rx Instructions: 43 units in the am and 20-22 units bedtime Florajen Acidophilus 20 billion cell Capsule 20,000 mmu cells PO QPM PNV cmb#95-ferrous fumarate-FA [ Multivitamins] 28 mg iron- 800 mcg Tablet 1 tab PO DAILY@06 atorvastatin 40 mg tablet 40 mg PO DAILY@19 diltiazem HCl 120 mg capsule,extended release 24hr 120 mg PO DAILY@06 hydroxyzine pamoate 25 mg capsule 25 mg PO BEDTIME lisinopril 2.5 mg Tablet 2.5 mg PO DAILY PRN (Reason: blood pressure over 130/80) Qty: 0 acetaminophen 500 mg Tablet 500 mg PO Q6H PRN (Reason: Pain) Vitamin C 500 mg Tablet 500 mg PO QAM warfarin 7.5 mg tablet 7.5 mg PO QPM Nitrostat 0.4 mg Tablet, Sublingual 0.4 mg SUBLINGUAL Q5M PRN (Reason: Chest Pain) Rx Instructions: do not exceed 3 doses per episode Discontinued amoxicillin 500 mg capsule 500 mg PO BID Rx Instructions: rx filled 07/01/22 30d/s Discharge Orders: Discharge Order (Routine); Ordered 07/15/22 Ordered By: Jenn Oscar Referrals: Faustina Gonzalez NP [Primary Care Provider] - 4-7 days (Friday, July 22, 2022 1:30 PM) Billy Berkowitz MD [Physician] - 2 weeks (The office will call you to set up your follow appointment.) Discharge Diet: Diabetic Discharge Activity: As per PT/OT instructions Patient Instructions: Opioid Safety Activity Restrictions/Additional Instructions: Use rolling walker and continue home exercises per physical therapy instructions. 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
[2022-07-15 12:15] LABS: Glucose Point of Care 309 mg/dL (70-110)
--- NOTE | 2022-07-15 13:22 | PC.CHAP ---
Pastoral Care Encounter/Spiritual Assessment Type of Contact [] Declined senior business consultant visit [] Patient/Family/Request visit [] Outpatient visit [] Follow-up visit [] Physician referral [] Code/Alert [x] Routine visit [] Staff referral [] Actively dying [] Patient sleeping [] Family support [] [] Out of room [] Palliative care [] [] Receiving care in room [] Pre-surgical visit [] Trauma [] Long length of stay [x] ICU visit [] Other: Relational/Emotional Strength [] Patient feels connected with others/family/visitors/staff [] Distress [] Loneliness/isolation [] Abandonment Spirituality of Patient x[] Person of Nellie [] Attends Sikhism of their [place] [] Believes in Prayer [] Reads Bible or Mormonism materials [] There are Spiritual issues to be addressed [employer] Interventions [] Prayer [] Active listening [] Non-anxious presence [] Spiritual/emotional support [] Crisis/trauma care [] Spiritual counseling [] Bereavement support [] Provided bereavement packet [] Provided Bible/devotional materials [] Provided toy/stuffed animal, coloring book to patient or family member [] Provided Communion [] Anointing/[place] [] Salvation [x] Completed spiritual assessment [] Other: Impact on Illness or Injury [] Angry [] Fearful [] Anxious [] Often cries [] Exhaustion [] Unable to work [] Unable to attend yarsanism [] Unable to walk/stand [] Unable to read [] Unable to drive [] Unable to eat/drink [] Unable to sleep [] Unable to be with family [] Patient intubated [] Other: Summary Time spent with patient
== END 2022-07-15 14:31 | disposition home or self-care (01) | DRG 871 ==
LOC: ER 07:59 → ICU 17:43 → MEDSURG 17:43
PROVIDERS: Family Medicine; Admitting Provider Internal Medicine; Emergency Provider Emergency Medicine; PCP Nurse Practitioner Family; Visit Provider Internal Medicine
DX: A41.9 Sepsis, unspecified organism (principal); G93.41 Metabolic encephalopathy; R65.21 Severe sepsis with septic shock; N12 Tubulo-interstitial nephritis, not specified as acute or chronic; E27.40 Unspecified adrenocortical insufficiency; N30.01 Acute cystitis with hematuria; I11.0 Hypertensive heart disease with heart failure; I48.91 Unspecified atrial fibrillation; I50.9 Heart failure, unspecified; E86.0 Dehydration; E87.6 Hypokalemia; M06.9 Rheumatoid arthritis, unspecified; F03.90 Unspecified dementia, unspecified severity, without behavioral disturbance, psychotic disturbance, mood disturbance, and anxiety; E11.9 Type 2 diabetes mellitus without complications; E78.5 Hyperlipidemia, unspecified; K57.30 Diverticulosis of large intestine without perforation or abscess without bleeding; E66.9 Obesity, unspecified; Z79.52 Long term (current) use of systemic steroids; Z79.2 Long term (current) use of antibiotics; Z79.01 Long term (current) use of anticoagulants; Z79.4 Long term (current) use of insulin; Z79.82 Long term (current) use of aspirin; Z87.440 Personal history of urinary (tract) infections; Z95.2 Presence of prosthetic heart valve; Z68.35 Body mass index [BMI] 35.0-35.9, adult; Z86.73 Personal history of transient ischemic attack (TIA), and cerebral infarction without residual deficits; Z87.891 Personal history of nicotine dependence; Z87.442 Personal history of urinary calculi
CPT/HCPCS: 36415; 36416; 36569; 36600; 51702; 70450; 71045; 74018; 74176; 76770; 80048; 80051; 80053; 80202; 80307; 81001; 82140; 82330; 82805; 82962; 83036; 83605; 83690; 83735; 84100; 84145; 84443; 85025; 85362; 85378; 85384; 85610; 85730; 86140; 87040; 87077; 87086; 87186; 87205; 87426; 93005; 93970; 94640; 94660; 94664; 96365; 96372; 96375; 97110; 97116; 97161; 97162; 97167; 97530; 97535; 99285; C1751; G0378; J0743; J1100; J1335; J1720; J1815; J1940; J2405; J3370; J3490; J7030; J7050; J7512

== ENCOUNTER 2022-07-16 07:22 | Inpatient (IN) | payer MEDICARE, OTHER, SELFPAY ==
[2022-07-16 07:29] VITALS: BP 168/92; PULSE 105; RESP 28; TEMP 37.4; O2SAT 97; BMI 33.9
--- NOTE | 2022-07-16 07:53 | ED_ITS ---
HPI - Male Genitourinary General: Chief complaint: Urogenital-Male Stated complaint: Throwing up, pain in abd, chills Time Seen by Provider: 07/16/22 07:26 Source: patient Mode of arrival: ambulatory History of Present Illness: 66-year-old male returns the emergency room. He is here several days ago was discharged yesterday for UTI had some abdominal pain he has ESBL in the past culture at that time showed to be sensitive to A ugmentin and Levaquin. He complains of left leg pain in the original CT when he came in there was some question of pyelonephritis. Flank pain became worse this morning. He threw up after he took the Augmentin. He is tachypneic appears to be hyperventilating on first arrival. Patient states he is short of breath he is had a slight cough is nonproductive. MD Complaint: dysuria Onset (ago): day(s) Duration: constant Location: left flank Radiation: left inguinal region Severity: moderate Quality: sharp Relieving factors: none Exacerbating factors: none Context: new medication (Started on Augmentin at the time of discharge for ESBL cystitis) Associated symptoms: Reports dysuria, fevers/chills, nausea and vomiting; Deny discharge, hematuria, rash, swelling, urinary incontinence, urinary retention or mass Review of Systems Const: Reports: fever(s), chills, body aches, change in appetite and malaise; Denies: fatigue ENMT: Denies: throat pain, ear or mastoid pain, nasal discharge or nasal congestion Card: Denies: chest pain, edema, dyspnea on exertion or orthopnea Resp: Denies: dyspnea, productive cough or non-productive cough GI: Reports: abdominal pain, nausea and vomiting : Reports: flank pain, difficulty urinating and dysuria; Denies: urinary frequency, urinary urgency, urinary incontinence or hematuria Skin/Breast: Denies: rash or pruritus PFS ED PFSH: Medical History Acute cystitis Altered mental status Aortic stenosis Had TAVR replacement 2017 Atrial fibrillation Bilateral renal masses CHF (congestive heart failure) EF 45 by transesophageal echo January 2019 Chronic antibiotic suppression Chronic anticoagulation coumadin Chronic urinary tract infection, suppressed Chronic use of steroids Congestive heart failure CVA (cerebral vascular accident) Dementia Diabetes Dyslipidemia Endocarditis history of chronic viridans endocarditis, 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 Essential hypertension Gout High risk medication use arava and chronic steroids 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 Hx of [place] spotted fever Ischemic cardiomyopathy Left ventricular hypertrophy Obesity AJAY (obstructive sleep apnea) Pulmonary HTN Pyelonephritis of right kidney Recurrent UTI Multidrug-resistant organisms Renal calculi Restrictive lung disease Rheumatoid arthritis Skin lesion Thalassemia Surgical History H/O lithotripsy S/P TAVR (transcatheter aortic valve replacement) (~2018) Family History Mother Stroke Father Myocardial infarction Other CAD (coronary artery disease) Chronic kidney disease (CKD) Diabetes Hypertension Social History Smoking and tobacco status: former smoker Quit status (tobacco): has quit using tobacco Year quit tobacco: 2019 - Chewing Tobacco Former quit date comment: Hx of 1/2 can x 50 Years Second hand smoke exposure: No Alcohol intake: former Lives independently: No Household members: spouse Marital status: Current occupational status: retired and disabled History of recent travel: No Current gender identity: Male Physical Exam Const: GENERAL APPEARANCE: cooperative and comfortable ORIENTATION/CONSCIOUSNESS: Yes awake HENMT: COMMON NORMALS: normocephalic, atraumatic and hearing grossly normal bilaterally HEAD & SCALP: normocephalic and atraumatic Eye: COMMON NORMALS: Equal, round and reactive pupils present, EOMs intact bilaterally, conjunctivae normal and no scleral icterus CONJUNCTIVA: Yes conjunctivae normal PUPIL: Yes Equal, round and reactive pupils present Neck/C-Spine: COMMON NORMALS: full ROM, supple and no JVD Lymph: LYMPHATIC: no lymphadenopathy noted and no lymphedema noted Resp: COMMON NORMALS: normal respiratory effort, No retractions and No use of accessory muscles AUSCULTATION: wheezes Cardio: COMMON NORMALS: no JVD, regular rate, regular rhythm and No murmurs present (Cardio) RATE: regular rate RHYTHM: regular rhythm GI: COMMON NORMALS: Soft to palpation and No hepatosplenomegaly present AUSCULTATION: Yes normoactive bowel sounds PALPATION: Yes Soft to palpation, No Tenderness to palpation present (GI), No Guarding due to palpation present (GI) and Yes No hepatosplenomegaly present OTHER: Morbidly obese chronic skin changes infraumbilical from persistent anasarca : BLADDER/KIDNEY EXAM: Yes CVA tenderness Back/Pelvis: GENERAL BACK: Yes CVA tenderness CVA tenderness: left Extremity: COMMON NORMALS: normal to inspection, capillary refill normal, no clubbing, cyanosis or edema, no calf tenderness and no pedal edema Skin: COMMON NORMALS: no rashes or lesions noted GENERAL SKIN EXAM: no rashes or lesions noted Course Vital Signs: Vital signs: Vital Signs Temperature 97.6 F 07/22/22 04:46 Pulse Rate 91 07/22/22 05:30 Respiratory Rate 17 07/22/22 04:46 Blood Pressure 135/83 07/22/22 04:46 Pulse Oximetry 98 07/22/22 04:46 Oxygen Delivery Me thod 07/22/22 04:46 Oxygen Flow Rate 2 07/22/22 04:46 Fraction of Inspir ed Oxygen 2 07/21/22 11:40 MDM - Male Medical Decision Making Reviewed labs discussed with hospitalist. Patient is septic at this time but is not in shock. He has history of recurrent UTIs as well as history of diabetes mellitus we will admit with elevated white count orders written Medical Records I reviewed the patient's medical records. Lab Data I reviewed the patient's lab results. : 07/22/22 02:08 07/22/22 02:08 Radiology Impressions Abdomen/Pelvis CT 07/16/22 07:54 IMPRESSION: 1. [id number]-hb-[id number] anterior abdominal wall subcutaneous fat stranding with some skin thickening anteriorly. Recommend correlation with clinical findings of cellulitis. 2. Unchanged complex left kidney mid zone 4.9 x 4.8 cm cyst. Recommend sonography for further assessment. The unchanged multiple bilateral intrarenal calculi, as noted above. No hydronephrosis, ureterectasis or ureteral calculi. 3. Bladder not well distended with relative mild wall prominence. Some air seen in the bladder. Mildly enlarged prostate. 4. Unchanged gallstones. Renal Ultrasound 07/16/22 18:09 IMPRESSION: 1. 4.9 cm complicated cyst in the left kidney with a filling defect. This could represent a blood clot but neoplasm is not excluded. Follow-up with dedicated renal CT or MRI without and with IV contrast is recommended. 2. Septated or clustered cyst in the right kidney with layering milk of calcium. Chest X-Ray 07/21/22 06:00 IMPRESSION: Persistent pulmonary edema with small left pleural effusion. Pneumonia should be excluded clinically. Laboratory Results WBC 11.3 10^3/uL (4.0-10.0) H 07/16/22 08:01 RBC 6.94 10^6/uL (4.1-5.3) H 07/16/22 08:01 Hgb 12.2 g/dL (11.7-16.6) 07/16/22 08:01 Hct 41.7 % (42.0-52.0) L 07/16/22 08:01 MCV 60.1 fl (80-94) L 07/16/22 08:01 MCH 17.6 pg (28.0-34.0) L 07/16/22 08:01 MCHC 29.3 g/dL (30.0-36.0) L 07/16/22 08:01 RDW 21.0 % (12.1-15.1) H 07/16/22 08:01 Plt Count 232 10^3/cmm (130-400) 07/16/22 08:01 MPV 11.0 fL (7.4-10.4) H 07/16/22 08:01 Neut % (Auto) 85.1 % 07/16/22 08:01 Lymph % (Auto) 7.8 % 07/16/22 08:01 Hart % (Auto) 5.0 % 07/16/22 08:01 Eos % (Auto) 1.3 % 07/16/22 08:01 Baso % (Auto) 0.4 % 07/16/22 08:01 Neut # (Auto) 9.64 10^3/uL (1.8-7.7) H 07/16/22 08:01 Lymph # (Auto) 0.9 10^3/uL (0.8-4.8) 07/16/22 08:01 Hart # (Auto) 0.6 10^3/uL (0.2-0.9) 07/16/22 08:01 Eos # (Auto) 0.2 10^3/uL (0.0-0.8) 07/16/22 08:01 Baso # (Auto) 0.0 10^3/uL (0.0-0.1) 07/16/22 08:01 Nucleated RBC % (auto) 0 % 07/16/22 08:01 Nucleated RBCs # 0.0 /100WBC 07/16/22 08:01 Sodium 141 mmol/L (136-145) 07/16/22 08:01 Potassium 4.3 mmol/L (3.5-5.1) 07/16/22 08:01 Chloride 103 mmol/L (98-107) 07/16/22 08:01 Carbon Dioxide 27 mmol/L (22-29) 07/16/22 08:01 Anion Gap 15.3 (5-19) 07/16/22 08:01 BUN 33 mg/dL (8-23) H 07/16/22 08:01 Creatinine 0.9 mg/dL (0.7-1.2) 07/16/22 08:01 GFR Calculation 83.9 mL/min (90-130) L 07/16/22 08:01 Glucose 181 mg/dL (65-115) H 07/16/22 08:01 Calculated Osmolality 304 mOsm/kg (285-295) H 07/16/22 08:01 Lactic Acid 3.4 mmol/L (0.5-2.2) H 07/16/22 08:01 Calcium 9.2 mg/dL (8.5-10.5) 07/16/22 08:01 Total Bilirubin 0.6 mg/dL (0.15-1.2) 07/16/22 08:01 AST 17 U/L (0-40) 07/16/22 08:01 ALT 18 U/L (0-41) 07/16/22 08:01 Alkaline Phosphatase 63 U/L (40-130) 07/16/22 08:01 Total Protein 6.1 g/dL (6.6-8.7) L 07/16/22 08:01 Albumin 3.1 g/dL (3.5-5.2) L 07/16/22 08:01 Globulin 3.0 g/dL (1.3-4.6) 07/16/22 08:01 Lipase 27 U/L (13-60) 07/16/22 08:01 Urine Color Yellow (Yellow) 07/16/22 09:39 Urine Appearance Sl hazy (CLEAR) 07/16/22 09:39 Urine pH 5 (5-7) 07/16/22 09:39 Ur Specific [place] 1.010 (1.005-1.030) 07/16/22 09:39 Urine Protein Trace (Negative) 07/16/22 09:39 Urine Glucose (UA) Norm (Normal) 07/16/22 09:39 Urine Ketones 1+ (Negative) H 07/16/22 09:39 Urine Blood 3+ (Negative) H 07/16/22 09:39 Urine Nitrate Negative (Negative) 07/16/22 09:39 Urine Bilirubin Neg (Negative) 07/16/22 09:39 Urine Urobilinogen Norm mg/dL (Negative) 07/16/22 09:39 Ur Leukocyte Esterase 2+ (Negative) H 07/16/22 09:39 Urine RBC 40-50 /hpf (0-2) H 07/16/22 09:39 Urine WBC 25-40 /hpf (0-5) H 07/16/22 09:39 Ur Squamous Epith Cells 0-4 /hpf (0-5) H 07/16/22 09:39 Amorphous Sediment Not Reportable 07/16/22 09:39 Urine Bacteria 2+ /hpf (NONE) H 07/16/22 09:39 Discharge Plan Discharge Patient Disposition: Admitted As Inpatient Admit Provider: Jenn Oscar Clinical Impression: Sepsis, Recurrent UTI, Restrictive lung disease, Body mass index [BMI] 38.0- 38.9, adult Condition: Stable Discharge Diet: Diabetic Discharge Activity: Increase activity as tolerated and As per PT/OT instructions Coding Level of Care Code ED [employer] Tour Guide for Chg Fwd Exam Comprehensive
--- NOTE | 2022-07-16 07:54 | CTR_ITS ---
PROCEDURE INFORMATION: Exam: CT Abdomen And Pelvis Without Contrast Exam date and time: 07/16/2022 9:09 AM Age: 66 years old Clinical indication: Nausea and vomiting; Abdominal pain; Generalized; Additional info: Flank pain TECHNIQUE: Imaging protocol: Computed tomography of the abdomen and pelvis without contrast. Radiation optimization: All CT scans at this facility use at least one of these dose optimization techniques: automated exposure control; mA and/or kV adjustment per patient size (includes targeted exams where dose is matched to clinical indication); or iterative reconstruction. COMPARISON: CT kidney stone [id number] 07/13/2022 4:19 AM RADIATION DOSE METRICS: Total DLP (mGy-cm): 1283.09 FINDINGS: Lungs: Minimal lingular atelectasis is seen. The heart size is normal. The patient is status post TAVR. Unchanged small pericardial effusion is seen. [id number]-shtpmtla coronary arterial atherosclerotic vascular calcifications are seen. Liver: Unchanged mildly lobulated contour of the liver on non-contrast CT. Gallbladder and bile ducts: Unchanged mildly distended gallbladder is seen with dependent small stones. No gallbladder wall thickening. No biliary ductal dilatation. Pancreas: Appears unremarkable on the non-contrast CT. No ductal dilation. Spleen: Some splenic calcified granulomas are seen. No splenomegaly. Adrenal glands: Normal. No mass. Kidneys and ureters: Unchanged complex left kidney mid zone 4.9 x 4.8 cm cyst is seen. Recommend sonography for further assessment. Unchanged simple right kidney mid zone 4.1 x 4.3 cm cyst is seen. Unchanged left kidney upper pole, mid zone and lower pole 1-2 mm calculi are seen. Unchanged right kidney mid zone 1 x 1 mm calculus is seen with right kidney lower pole 6 x 7 mm calculus. Stomach and bowel: The non-contrast opacified stomach is not well distended with relative gastric fold prominence. Assessment is limited. The noncontrast opacified small bowel loops appear unremarkable. The noncontrast opacified loops of colon in the abdomen and pelvis show mild gas and fecal material in the ascending and transverse colon. Minimal distal descending and moderate sigmoid colonic diverticulosis is seen, without CT evidence of diverticulitis. The lack of orally administered contrast material limits assessment. Appendix: No appendix is specifically identified. There is no evidence of fluid collections or inflammatory stranding in the right lower quadrant. Intraperitoneal space: No free air. No significant fluid collection. Vasculature: No abdominal aortic aneurysm. Lymph nodes: No enlarged lymph nodes. Urinary bladder: The bladder is not well distended with relative mild wall prominence. Some air is seen in the bladder. Reproductive: The prostate demonstrates mild nonspecific enlargement. The seminal vesicles are normal. Recommend correlation with clinical exam findings and PSA level assessment. Bones/joints: No acute osseous abnormality seen. Mild bilateral hip degenerative changes are seen. Soft tissues: Unchanged small umbilical hernia is seen, containing peritoneal fat. [id number]-[id number] anterior abdominal wall subcutaneous fat stranding is seen with some skin thickening anteriorly. Recommend correlation with clinical findings of cellulitis. CT/CT kidney stone [id number] IMPRESSION: 1. Vnnb-zy-[id number] anterior abdominal wall subcutaneous fat stranding with some skin thickening anteriorly. Recommend correlation with clinical findings of cellulitis. 2. Unchanged complex left kidney mid zone 4.9 x 4.8 cm cyst. Recommend sonography for further assessment. The unchanged multiple bilateral intrarenal calculi, as noted above. No hydronephrosis, ureterectasis or ureteral calculi. 3. Bladder not well distended with relative mild wall prominence. Some air seen in the bladder. Mildly enlarged prostate. 4. Unchanged gallstones.
--- NOTE | 2022-07-16 07:55 | XRR_ITS ---
PROCEDURE INFORMATION: Exam: XR Chest Exam date and time: 07/16/2022 8:04 AM Age: 66 years old Clinical indication: Cough and dyspnea; Additional info: Dyspnea/cough TECHNIQUE: Imaging protocol: Radiologic exam of the chest. Views: 1 view. COMPARISON: CR (CHEST, ) 07/13/2022 1:14 AM FINDINGS: Lungs: There are normal lung volumes. Nonspecific mild left basilar atelectasis/interstitial opacities are seen. Pleural spaces: There are no pleural effusions. No pneumothorax. Heart/Mediastinum: The heart size is normal. The patient is status post TAVR. There is a mildly tortuous thoracic aorta. The trachea is in the midline. Bones/joints: No acute abnormalities. XR/XR chest 1V portable [id number] IMPRESSION: Nonspecific mild left basilar atelectasis/interstitial opacities.
[2022-07-16 08:37] LABS: Basophils % 0.4 %; Eosinophils # 0.2 10^3/uL (0.0-0.8); Eosinophils % 1.3 %; Hematocrit 41.7 % (42.0-52.0); Hemoglobin 12.2 g/dL (11.7-16.6); Lymphocytes # 0.9 10^3/uL (0.8-4.8); Lymphocytes % 7.8 %; Mean Corpuscular HGB Conc 29.3 g/dL (30.0-36.0); Mean Corpuscular Hemoglobin 17.6 pg (28.0-34.0); Mean Corpuscular Volume 60.1 fl (80-94); Monocytes # 0.6 10^3/uL (0.2-0.9); Neutrophils # 9.64 10^3/uL (1.8-7.7); Neutrophils % 85.1 %; Nucleated Red Blood Cells % 0 %; Platelet Count 232 10^3/cmm (130-400); Red Blood Count 6.94 10^6/uL (4.1-5.3); White Blood Count 11.3 10^3/uL (4.0-10.0)
[2022-07-16 08:41] LABS: Alanine Aminotransferase 18 U/L (0-41); Albumin Level 3.1 g/dL (3.5-5.2); Alkaline Phosphatase 63 U/L (40-130); Anion Gap 15.3 (5-19); Aspartate Amino Transferase 17 U/L (0-40); Blood Urea Nitrogen 33 mg/dL (8-23); Calcium 9.2 mg/dL (8.5-10.5); Carbon Dioxide 27 mmol/L (22-29); Chloride 103 mmol/L (98-107); Glomerular Filtration Rate 83.9 mL/min (90-130); Glucose 181 mg/dL (65-115); Lipase 27 U/L (13-60); Osmolality Calculated 304 mOsm/kg (285-295); Potassium 4.3 mmol/L (3.5-5.1); Sodium 141 mmol/L (136-145); Total Bilirubin 0.6 mg/dL (0.15-1.2); Total Protein 6.1 g/dL (6.6-8.7)
[2022-07-16 08:42] LABS: Lactic Sepsis W/Reflex 3.4 mmol/L (0.5-2.2)
[2022-07-16 09:06] LABS: Reflex Lactate Order REFLEX LACTIC ORDERD
--- NOTE | 2022-07-16 09:09 | PC.NURSE ---
PT PLACED ON AIR MATTRESS AND BRIEF CHANGED FOR INCONTINENCE OF URINE.
[2022-07-16 10:05] LABS: Glucose Urine UA Norm (Normal); Ketones Urine 1+ (Negative); Protein Urine Trace (Negative); Urine Appearance SL Hazy (CLEAR); Urine Color Yellow (Yellow); pH Urine 5 (5-7)
[2022-07-16] MEDS: sodium chloride 0.9% 1,000 ML 999 ML IV ×3 (10:05→20:54)
[2022-07-16 10:06] LABS: Add Urine Microscopic? YES; Bilirubin Urine Neg (Negative); Blood Urine 3+ (Negative); Leukocyte Esterase Urine 2+ (Negative); Nitrate Urine Negative (Negative); Urobilinogen Urine Norm (Negative)
[2022-07-16 10:07] LABS: RBC Urine 40-50 /hpf (0-2); WBC Urine 25-40 /hpf (0-5)
[2022-07-16 10:08] LABS: Add Urine Culture? Yes; Bacteria Urine 2+ /hpf; Squamous Epithelial Cell Urine 0-4 /hpf (0-5)
[2022-07-16 12:01] LABS: Lactic Acid level (Lactate) 2.1 mmol/L (0.5-2.2)
--- NOTE | 2022-07-16 12:10 | PC.NURSE ---
report given to hector johnson.
--- NOTE | 2022-07-16 12:35 | PM.HP ---
Providers/Chief Complaint Admitting Physician: Jenn Oscar MD Primary Care Provider: Faustina Gonzalez NP Chief Complaint: Throwing up, pain in abd, chills History of Present Illness Ry Loyd is a 66 year old male who is on chronic suppression therapy with fosfomycin for recurrent ESBL Klebsiella pneumonia UTI he was started on fosfomycin by Dr. Downing in January which seemed to suppress his episodes for about 4 to 5 months, he is also taking amoxicillin since his TAVR, he was recently discharged from the hospital for acute metabolic encephalopathy related to UTI his mentation improved with use of IV fluids and antibiotics, patient wanted to return home, repeat urine culture showed Klebsiella ESBL, this time presenting for recurrence of fever, worsening right-sided flank pain and chills. He has been experiencing dry heaves, his mentation has not worsened however he does dermatologic and fatigue. ER he has been diagnosed with sepsis, septic bolus, blood cultures have been taken repeat lactic acid he is hemodynamically stable, lactic acid is 3.4, I will give him another 2 L bolus Repeat lactic acid, he has received imipenem Review of Systems Const: Reports: fever(s), chills, body aches and night sweats Eyes: Denies: change in vision ENMT: Denies: throat pain Card: Denies: chest pain Resp: Denies: dyspnea GI: Reports: abdominal pain and nausea : Reports: flank pain Musc: Denies: neck pain Skin/Breast: Reports: rash, pruritus and skin swelling Neuro: Denies: headache(s) Psych: Reports: anxiety Endo: Denies: polyuria Aaron/Lymph: Denies: easy bruising All/Imm: Denies: urticaria Medications/Allergies Home Medications Medication Instructions Recorded Confirmed Last Taken Type citalopram 10 mg tablet (Celexa) 10 mg PO QA 12/03/19 07/16/22 07/15/22 History tamsulosin 0.4 mg capsule 0.4 mg PO DAILY@12/03/19 07/16/22 07/15/22 History pantoprazole 40 mg tablet,delayed 40 mg PO DAILY@12/25/19 07/16/22 07/15/22 History release (Protonix) potassium chloride 20 mEq 20 meq PO BID 12/25/19 07/16/22 07/15/22 History tablet,extended release aspirin 81 mg tablet,delayed 81 mg PO BEDTIME 10/10/20 07/16/22 07/15/22 History release carvedilol 6.25 mg tablet 6.25 mg PO BID 10/30/20 07/16/22 01/08/22 07:00 History atorvastatin 40 mg tablet 40 mg PO DAILY@19 02/17/21 07/16/22 07/15/22 History diltiazem HCl 120 mg 120 mg PO DAILY@02/17/21 07/16/22 07/15/22 History capsule,extended release 24 hr bumetanide 2 mg tablet See Rx Instructions .Route .COMPLEX 04/23/21 07/16/22 07/15/22 History hydroxyzine pamoate 25 mg capsule 25 mg PO BEDTIME 04/23/21 07/16/22 07/15/22 History Lactobacillus acidophilus 20 20,000 mmu cells PO QPM 07/12/21 07/16/22 07/15/22 History billion cell capsule (Florajen Acidophilus) insulin glargine 100 unit/mL (3 See Rx Instructions .Route .COMPLEX 07/12/21 07/16/22 07/15/22 History mL) subcutaneous pen (Lantus Solostar U-100 Insulin) vit no.95-ferrous 1 tab PO DAILY@07/12/21 07/16/22 07/15/22 History fumarate 28 mg-folic acid 800 mcg tablet ( Multivitamins) lisinopril 2.5 mg tablet 2.5 mg PO DAILY PRN blood pressure 10/14/21 07/16/22 07/15/22 History over 130/80 ##0 acetaminophen 500 mg tablet 500 mg PO Q6H PRN Pain 12/29/21 07/16/22 01/03/22 History leflunomide 10 mg tablet 10 mg PO DAILY #30 tabs 05/18/22 07/16/22 07/15/22 Rx fosfomycin tromethamine 3 gram 1 packet PO Q3D 60 days #20 ea 05/26/22 07/16/22 07/12/22 Rx oral packet prednisone 5 mg tablet 7.5 mg PO QAM #45 tabs 06/03/22 07/16/22 07/15/22 Rx ascorbic acid (vitamin C) 500 mg 500 mg PO QAM 07/13/22 07/16/22 07/15/22 History tablet (Vitamin C) nitroglycerin 0.4 mg sublingual 0.4 mg sublingual Q5M PRN Chest 07/13/22 07/16/22 Unknown History tablet (Nitrostat) Pain warfarin 7.5 mg tablet 7.5 mg PO QPM 07/13/22 07/16/22 07/15/22 History amoxicillin 875 mg-potassium 1 tab PO BID #28 tabs 07/15/22 07/16/22 07/15/22 Rx clavulanate 125 mg tablet Allergies Allergy/AdvReac Type Severity Reaction Status Date / Time ceftriaxone [From Rocephin] Allergy Intermediate ALGY-Difficulty Verified 05/26/22 11:01 Breathing levofloxacin [From Levaquin] Allergy Mild ADR-Itching Verified 05/26/22 11:01 iodine Allergy Unknown Unknown Verified 05/26/22 11:01 clopidogrel [From Plavix] AdvReac Intermediate Unknown Verified 05/26/22 11:01 PFSH Acute PFSH: Medical History Acute cystitis Altered mental status Aortic stenosis Had TAVR replacement 2017 Atrial fibrillation Bilateral renal masses CHF (congestive heart failure) EF 45 by transesophageal echo January 2019 Chronic antibiotic suppression Chronic anticoagulation coumadin Chronic urinary tract infection, suppressed Chronic use of steroids Congestive heart failure CVA (cerebral vascular accident) Dementia Diabetes Dyslipidemia Endocarditis history of chronic viridans endocarditis, 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 Essential hypertension Gout High risk medication use arava and chronic steroids 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 Hx of [place] spotted fever Ischemic cardiomyopathy Left ventricular hypertrophy Obesity AJAY (obstructive sleep apnea) Pulmonary HTN Pyelonephritis of right kidney Recurrent UTI Multidrug-resistant organisms Renal calculi Restrictive lung disease Rheumatoid arthritis Skin lesion Thalassemia Surgical History H/O lithotripsy S/P TAVR (transcatheter aortic valve replacement) (~2017) Family History Mother Stroke Father Myocardial infarction Other CAD (coronary artery disease) Chronic kidney disease (CKD) Diabetes Hypertension Social History Smoking and tobacco status: former smoker Quit status (tobacco): has quit using tobacco Year quit tobacco: 2020 - Chewing Tobacco Former quit date comment: Hx of 1/2 can x 50 Years Second hand smoke exposure: No Alcohol intake: former Lives independently: No Household members: spouse Marital status: Current occupational status: retired and disabled History of recent travel: No Current gender identity: Male Vitals/I&O/Wt Last Vital Signs Temp 99.4 F 07/16/22 07:29 Pulse 105 H 07/16/22 07:29 Resp 28 H 07/16/22 07:29 BP 168/92 07/16/22 07:29 Pulse Ox 97 07/16/22 07:29 O2 Del Method 07/16/22 07:29 Weight last 48 hrs Weight 110.223 kg Physical Exam Narrative: Morbidly obese male Awake and alert GCS 15 Currently on 2 L, Tachypnea, tachycardia A. fib RVR Abdomen soft tender right CVA Score skin rash around umbilicus Lower extremity venous stasis dermatitis Dry skin Nonfocal neuro exam Awake and alert EOMI, PERRLA Laying in left lateral position Anxious appearing Sepsis: Is patient septic: Yes Focused sepsis exam performed: Yes Focused sepsis exam: Patient was awake and alert No sign of septic encephalopathy Tachypneic and tachycardic GCS 15 Good capillary refill No hemodynamic instability No skin mottling Patient was on 2 L nasal cannula No conversational dyspnea Data : 07/16/22 08:01 07/16/22 08:01 Micro: Microbiology 07/16/22 08:01 Blood Culture - Preliminary Blood SPECIMEN COLLECTED A&P Assessment and plan (1) Restrictive lung disease: Status: Chronic (2) Dementia: Status: Chronic (3) Recurrent UTI: Status: Chronic (4) Thalassemia: Status: Chronic Qualifiers: Thalassemia type: unspecified type Qualified Code(s): D56.9 - Thalassemia, unspecified (5) Body mass index [BMI] 38.0-38.9, adult: Status: Chronic (6) Renal calculi: Status: Chronic (7) Endocarditis: Status: Chronic (8) Chronic use of steroids: Status: Chronic (9) Rheumatoid arthritis: Status: Chronic Qualifiers: Rheumatoid arthritis location: multiple sites Rheumatoid factor presence: with rheumatoid factor Qualified Code(s): M05.79 - Rheumatoid arthritis with rheumatoid factor of multiple sites without organ or systems involvement Plan 60 male who has had recurrent UTIs with ESBL Klebsiella UTI she has seen ID who put on fosfomycin, he is also taking amoxicillin for his valve replacement since he suffered from endocarditis he carries history of A. fib chronic anticoagulation with Coumadin also steroid-dependent 7.5 mg prednisone secondary to rheumatoid arthritis readmitted because of worsening of fever and chills Sepsis without shock or encephalopathy ESBL UTI We will give him septic bolus Cultures taken in the ER Repeat lactic acid Continue normal saline If his blood pressure drops below 65mmhg MAP stress dose steroids can be used before initiation of vasopressors I will wait for 48 hours to rule out bacteremia this time he will need PICC line placement and 2 weeks of IV antibiotic regimen, will last Dr. Downing if she could see him as well Rheumatoid arthritis without acute flare I have continue leflunomide and chronic steroids Monitor prescription dose if he becomes hypotensive So far hemodynamically stable Restrictive lung disease, pulm hypertension sleep apnea Required 2 L of oxygen at baseline No acute exacerbation Abdominal wall cellulitis I will start him on vancomycin along imipenem Complex left kidney 4.9 x 4.8 cm cyst Will request renal ultrasound There is also bilateral intrarenal calculi without hydronephrosis He has been Dr. Berkowitz along ID Might need urology consult on Monday recurrent UTI BPH: Tamsulosin tamsulosin Gallstones without cholecystitis Patient lives with his at home, will need home health services Cardiac diet DVT prophylaxis continue Coumadin check INR A. fib RVR continue Coreg Attestations Medical Necessity Statement*: more than >2 midnights for septic UTI, medical management anticipated Time Spent in Patient Care: 45 Coding Level of Care Code Acute Manager for g Fwd Diagnoses Restrictive lung disease J98.4 Dementia F03.90 Recurrent UTI N39.0 Thalassemia D56.9 Thalassemia type: unspecified type Body mass index [BMI] 38.0-38.9, adult Z68.38 Renal calculi N20.0 Endocarditis I38 Chronic use of steroids Rheumatoid arthritis M05.79 Rheumatoid arthritis location: multiple sites Rheumatoid factor presence: with rheumatoid factor
[2022-07-16 13:19] VITALS: BMI 36.7
[2022-07-16 17:03] VITALS: BP 120/80; PULSE 114; RESP 20; TEMP 38.6; O2SAT 93
[2022-07-16 17:18] LABS: Glucose Point of Care 218 mg/dL (70-110)
--- NOTE | 2022-07-16 18:09 | USR_ITS ---
PROCEDURE INFORMATION: Exam: US Retroperitoneal; Complete; Kidneys and Bladder Exam date and time: 07/16/2022 6:52 PM Age: 66 years old Clinical indication: Abdominal pain; Flank; Left; Additional info: Stones TECHNIQUE: Imaging protocol: Real-time ultrasound of the retroperitoneum with image documentation. Complete exam focused on the kidneys and bladder. COMPARISON: CT kidney stone [id number] 07/16/2022 9:09 AM FINDINGS: Right kidney: 11.7 cm in length. 2.5 cm septated anechoic cyst or cluster of cysts in the posterior right kidney with layering milk of calcium. This corresponds to a fluid density cyst on the CT. No hydronephrosis. Left kidney: 10.9 cm in length. 4.9 cm posterolateral complicated cyst with a 2.8 cm filling defect or blood clot. 3.4 cm anechoic cyst in the inferior pole. Urinary bladder: The urinary bladder is partially decompressed. No visible wall thickening. US/US renal BI* [id number] IMPRESSION: 1. 4.9 cm complicated cyst in the left kidney with a filling defect. This could represent a blood clot but neoplasm is not excluded. Follow-up with dedicated renal CT or MRI without and with IV contrast is recommended. 2. Septated or clustered cyst in the right kidney with layering milk of calcium.
--- NOTE | 2022-07-16 19:27 | PC.PHAR ---
Pharmacokinetic dosing service Date: 07/16/22 Time: 1926 Objective: Patient: Ry Loyd Floor: 262-1 Age: 66 yo Serum creatinine: 0.9 mg/dL Height: 71.0 Inches Weight (kg): 119.386 Diagnosis: Relevant medical/social history: Cultures and sensitivities: Other labs: Assessment: IBW (kg): 75.30 Dosing wt(kg): 119.386 Estimated Creatinine clearance (ml/min): 83.7 CRCL method: Cockcroft and Gault using ibw(default). Drug selected: Vancomycin Loading dose (mg): 0 Vd (liters): 107.4 (factor used: 0.9 L/kg) Teofilo (hr-1): 0.074 Half life (hrs): 9.37 Recommended dose: 1500 mg Interval: 12 hrs Infusion time (hrs): 1.5 Predicted peak (mcg/mL): 22.5 Predicted trough (mcg/mL): 10.35 Total body weight is being used for vancomycin dosing. Renal function is stable [ ] /unstable [ ] Recommendations: Give Vancomycin 1500 mg q 12 hrs with an expected Cpeak of 22.5 mcg/ml and an expected Ctrough of 10.35 mcg/ml Renal dosing of other antibiotics (review renal dosing of other medications and list guidelines here): Thank you for the consult, will continue to follow. Signature: Christy Quinones [facility]
[2022-07-16 19:55] LABS: Lactate (Lactic Acid level) 2.4 mmol/L (0.5-2.2)
[2022-07-16 20:00] VITALS: BP 166/90; PULSE 107; RESP 24; TEMP 36.5; O2SAT 100
[2022-07-16] MEDS: vancomycin 1,500 MG/300 ML PIGGYBACK 200 MG IV (20:13)
[2022-07-16] MEDS: aspirin 81 mg EC Tablet PO (20:46)
[2022-07-16] MEDS: carvedilol 6.25 mg Tablet PO (20:46)
[2022-07-16] MEDS: insulin glargine 100 units/1 mL 22 UNIT SUBCUT (20:46)
[2022-07-16 22:00] VITALS: PULSE 100
[2022-07-16 22:02] LABS: Glucose Point of Care 299 mg/dL (70-110)
[2022-07-16] MEDS: sodium chloride 0.9% 1,000 ML 75 ML IV (22:47)
[2022-07-17] VITALS (11 sets, daily range): BP systolic 98–154; BP diastolic 62–86; PULSE 92–118; RESP 18–25; TEMP 36.6–37.7; O2SAT 93–99
[2022-07-17 03:28] LABS: Basophils # 0.1 10^3/uL (0.0-0.1); Basophils % 0.3 %; Eosinophils # 0.1 10^3/uL (0.0-0.8); Eosinophils % 0.4 %; Hematocrit 34.7 % (42.0-52.0); Hemoglobin 10.5 g/dL (11.7-16.6); Lymphocytes # 1.4 10^3/uL (0.8-4.8); Lymphocytes % 8.9 %; Mean Corpuscular HGB Conc 30.3 g/dL (30.0-36.0); Mean Corpuscular Hemoglobin 17.8 pg (28.0-34.0); Mean Corpuscular Volume 58.9 fl (80-94); Monocytes # 0.8 10^3/uL (0.2-0.9); Monocytes % 4.9 %; Neutrophils # 13.74 10^3/uL (1.8-7.7); Nucleated Red Blood Cells % 0 %; Platelet Count 175 10^3/cmm (130-400); Red Blood Count 5.89 10^6/uL (4.1-5.3); Red Cell Distribution Width 19.8 % (12.1-15.1); White Blood Count 16.2 10^3/uL (4.0-10.0)
[2022-07-17 03:36] LABS: Lactate (Lactic Acid level) 1.8 mmol/L (0.5-2.2)
[2022-07-17 03:44] LABS: Alanine Aminotransferase 13 U/L (0-41); Albumin Level 2.5 g/dL (3.5-5.2); Alkaline Phosphatase 61 U/L (40-130); Anion Gap 12.8 (5-19); Aspartate Amino Transferase 20 U/L (0-40); Blood Urea Nitrogen 26 mg/dL (8-23); Calcium 8.4 mg/dL (8.5-10.5); Carbon Dioxide 23 mmol/L (22-29); Chloride 104 mmol/L (98-107); Globulin 2.6 g/dL (1.3-4.6); Glomerular Filtration Rate 96.1 mL/min (90-130); Glucose 286 mg/dL (65-115); Osmolality Calculated 297 mOsm/kg (285-295); Potassium 3.8 mmol/L (3.5-5.1); Sodium 136 mmol/L (136-145); Total Bilirubin 0.7 mg/dL (0.15-1.2); Total Protein 5.1 g/dL (6.6-8.7)
[2022-07-17 03:46] LABS: C Reactive Protein 154.4 mg/L (0.0-4.9)
[2022-07-17 03:49] LABS: Procalcitonin 0.57 ng/mL (0-0.5)
[2022-07-17] MEDS: predniSONE 5 mg Tablet 7.5 MG PO (05:07)
[2022-07-17] MEDS: dilTIAZem ER (24HR) 120 mg Capsule PO (05:07)
[2022-07-17] MEDS: tamsulosin 0.4 mg Capsule PO (05:07)
[2022-07-17 06:18] LABS: Glucose Point of Care 234 mg/dL (70-110)
[2022-07-17] MEDS: insulin lispro 100 unit/1 mL SUBCUT ×3 (08:34→17:12)
[2022-07-17] MEDS: sodium chloride 0.9% 1,000 ML 75 ML IV ×2 (09:07→17:08)
[2022-07-17] MEDS: vancomycin 1,500 MG/300 ML PIGGYBACK 200 MG IV ×2 (09:07→20:53)
[2022-07-17] MEDS: ondansetron 2 mg/ML SDV 2 mL 4 MG IVP (09:08)
[2022-07-17] MEDS: sennosides-docusate Tablet 1 TAB PO (09:08)
[2022-07-17] MEDS: carvedilol 6.25 mg Tablet PO ×2 (09:08→20:55)
[2022-07-17] MEDS: insulin glargine 100 units/1 mL 22 UNIT SUBCUT (09:09)
[2022-07-17 11:06] LABS: Glucose Point of Care 211 mg/dL (70-110)
[2022-07-17] MEDS: morphine IR 15 mg Tablet PO (12:22)
--- NOTE | 2022-07-17 14:22 | P.PN_ITS ---
Subjective Subjective: Patient is doing much better today, much more awake and alert Still complaining of right flank pain He is not confused today No bowel movement yet Febrile episode noted on 07/16 Vitals/I&O/Wt Last Vital Signs Temp 98 F 07/17/22 11:52 Pulse 103 H 07/17/22 11:52 Resp 25 H 07/17/22 11:52 BP 105/76 07/17/22 11:52 Pulse Ox 97 07/17/22 11:52 O2 Del Method 07/17/22 11:52 O2 Flow Rate 2 07/17/22 11:52 07/16/22 07/17/22 07/17/22 22:59 06:59 14:59 Intake Total 2880 / 3980 1780 / 5760 1515 / 1515 Balance 2880 / 3980 1780 / 5760 1515 / 1515 Weight last 48 hrs Weight 119.386 kg Weight 110.223 kg Physical Exam Narrative: Patient is morbid obese Awake and alert Nonfocal neuro exam GCS 15 Cellulitis of abdominal wall Extremely dry skin Abdominal fold intertrigo Lower extremity venous stasis No active cellulitis Morbidly obese Awake and alert Currently on 2 L nasal cannula Awake and alert Nonfocal neuro exam Bilateral breath sounds with rhonchi present Right-sided CVA tenderness Data : 07/17/22 02:44 07/17/22 02:44 Micro: Microbiology 07/16/22 09:39 Urine Culture - Preliminary Urine,Clean Catch 07/16/22 08:01 Blood Culture - Preliminary Blood NEGATIVE TO DATE 07/16/22 08:01 Blood Culture - Preliminary Blood SPECIMEN COLLECTED A&P Assessment and plan (1) Restrictive lung disease: Status: Chronic (2) Dementia: Status: Chronic (3) Calculus of prostatic fossa: Status: Chronic (4) Recurrent UTI: Status: Chronic (5) Renal calculi: Status: Chronic (6) Endocarditis: Status: Chronic (7) Shortness of breath: Status: Chronic (8) Chronic use of steroids: Status: Chronic (9) Rheumatoid arthritis: Status: Chronic Qualifiers: Rheumatoid arthritis location: multiple sites Rheumatoid factor presence: with rheumatoid factor Qualified Code(s): M05.79 - Rheumatoid ar thritis with rheumatoid factor of multiple sites without organ or systems involvement (10) Sepsis: Status: Acute Plan Hospital course 66-year male who presented to the hospital for fever, chills, he was diagnosed with sepsis related to UTI, please note he has history of recurrent UTI with ESBL Klebsiella has been evaluated by Dr. Berkowitz for renal calculi and ID for recurrent UTI he was taking fosfomycin since January along amoxicillin I spoke with Dr. Downing who recommended increasing his fosfomycin to twice a d ay dose every 3 days at the time of discharge along ertapenem with PICC line for 14 days, she is in agreement with imipenem administration during hospitalization for now Patient has a complex cyst which has been evaluated by Dr. Berkowitz, he does have chronic renal calculi Please note he was discharged a few days ago on p.o. antibiotics with instructions to continue his chronic p.o. suppressive therapy however after his discharge his blood pressure came back positive for bacteremia with Klebsiella ESBL hence he was readmitted on 07/16 Patient lives with his at home Assessment and plan Sepsis related to recurrent UTI Patient received septic bolus, cultures were taken in the ER Lactic acid and improved, white count 16.2 No signs of septic shock He did not require stress dose steroids however he has been on steroids for quite some time for his rheumatoid arthritis Bacteremia with Klebsiella ESBL Repeat cultures negative so far Currently on imipenem Dr. Downing recommended increasing dose of fosfomycin to twice a day every 3 days and using ertapenem at the time of discharge He will need a PICC line placement once we have made sure bacteremia has cleared Complex renal cyst 4.9 cm which has been present for quite some time It has been evaluated with Dr. Berkowitz Renal ultrasound has been done on this visit as well No hydronephrosis or obstruction Renal calculi noted Neoplasm has not been excluded Abdominal wall cellulitis Currently on broad-spectrum antibiotics with vancomycin and imipenem Chronic steroid use with immunocompromise state Continue chronic steroid regimen I have not given him stress dose steroids his blood pressure has been stable No signs of hypoglycemia for renal crisis Restrictive lung disease requiring 2 L of oxygen which is his home requirement BPH continue tamsulosin Gallstones of gallbladder without cholecystitis Will need PICC line placement, 2 weeks of IV antibiotics once bacteremia clears Cardiac diet He takes Coumadin for his valvular A. fib, history of endocarditis status post TAVR, takes Coumadin A. fib without RVR continue AV nancy blocking agents Attestations Medical Necessity Statement*: Continue medical management Time Spent in Patient Care: 40 Coding Level of Care Code Acute Desulphurizer Operator for Chg Fwd Diagnoses Restrictive lung disease J98.4 Dementia F03.90 Calculus of prostatic fossa N42.0 Recurrent UTI N39.0 Renal calculi N20.0 Endocarditis I38 Shortness of breath R06.02 Chronic use of steroids Rheumatoid arthritis M05.79 Rheumatoid arthritis location: multiple sites Rheumatoid factor presence: with rheumatoid factor Sepsis A41.9
[2022-07-17 16:54] LABS: Glucose Point of Care 158 mg/dL (70-110)
[2022-07-17 19:07] LABS: INR 5.25 (0.8-1.2)
[2022-07-17 21:30] LABS: Glucose Point of Care 209 mg/dL (70-110)
[2022-07-17] MEDS: insulin glargine 100 units/1 mL 20 UNIT SUBCUT (23:07)
[2022-07-18] VITALS (17 sets, daily range): BP systolic 100–148; BP diastolic 62–89; PULSE 77–111; RESP 16–24; TEMP 36.6–37.2; O2SAT 92–100
[2022-07-18] MEDS: morphine IR 15 mg Tablet PO ×4 (02:26→20:17)
[2022-07-18] MEDS: ondansetron 2 mg/ML SDV 2 mL 4 MG IVP (03:09)
[2022-07-18] MEDS: ipratropium-albuterol 3 mL Neb INHALATION ×3 (03:15→19:59)
[2022-07-18 04:36] LABS: Basophils % 0.2 %; Eosinophils # 0.2 10^3/uL (0.0-0.8); Eosinophils % 1.1 %; Hematocrit 32.1 % (42.0-52.0); Hemoglobin 9.7 g/dL (11.7-16.6); Lymphocytes # 1.3 10^3/uL (0.8-4.8); Lymphocytes % 8.2 %; Mean Corpuscular HGB Conc 30.2 g/dL (30.0-36.0); Mean Corpuscular Hemoglobin 17.8 pg (28.0-34.0); Mean Platelet Volume 10.1 fL (7.4-10.4); Neutrophils # 13.46 10^3/uL (1.8-7.7); Neutrophils % 83.8 %; Nucleated Red Blood Cells % 0 %; Platelet Count 166 10^3/cmm (130-400); Red Blood Count 5.44 10^6/uL (4.1-5.3); Red Cell Distribution Width 19.8 % (12.1-15.1); White Blood Count 16.1 10^3/uL (4.0-10.0)
[2022-07-18 05:00] LABS: Partial Thromboplastin Time 50.8 SECONDS (23.9-36.7)
[2022-07-18 05:02] LABS: Anion Gap 14.7 (5-19); Blood Urea Nitrogen 26 mg/dL (8-23); C Reactive Protein 199.8 mg/L (0.0-4.9); Calcium 8.3 mg/dL (8.5-10.5); Carbon Dioxide 23 mmol/L (22-29); Chloride 105 mmol/L (98-107); Glomerular Filtration Rate 96.1 mL/min (90-130); Glucose 155 mg/dL (65-115); Osmolality Calculated 296 mOsm/kg (285-295); Potassium 3.7 mmol/L (3.5-5.1); Sodium 139 mmol/L (136-145)
[2022-07-18 05:09] LABS: D Dimer 15.11 ug/mIFEU (0-0.59)
[2022-07-18] MEDS: predniSONE 5 mg Tablet 7.5 MG PO (05:22)
[2022-07-18] MEDS: dilTIAZem ER (24HR) 120 mg Capsule PO (05:22)
[2022-07-18] MEDS: tamsulosin 0.4 mg Capsule PO (05:22)
[2022-07-18 05:41] LABS: Fibrinogen 661 mg/dL (174-498)
[2022-07-18 06:02] LABS: INR 5.63 (0.8-1.2)
[2022-07-18 06:42] LABS: Glucose Point of Care 219 mg/dL (70-110)
[2022-07-18 07:59] LABS: Vancomycin Trough 22.5 ug/mL (10-15)
[2022-07-18] MEDS: sodium chloride 0.9% 1,000 ML 75 ML IV (08:09)
[2022-07-18] MEDS: insulin glargine 100 units/1 mL 40 UNIT SUBCUT (08:09)
[2022-07-18] MEDS: insulin lispro 100 unit/1 mL SUBCUT ×3 (08:10→17:22)
[2022-07-18] MEDS: carvedilol 6.25 mg Tablet PO ×2 (08:11→20:16)
[2022-07-18] MEDS: sennosides-docusate Tablet 1 TAB PO (08:11)
--- NOTE | 2022-07-18 08:47 | USCV_ITS ---
Ry Loyd Age: 66 Gender: M : 1955 Exam Date: 07/18/2022 09:00 Ordering Phys: Elian Buitrago MD Technologist: Tay Green Exam Location: [facility] [place] Indication: assess for dvt PROCEDURES: Venous duplex imaging was performed in bilateral lower extremities. The following venous structures were evaluated: common femoral vein, profunda vein, proximal portion of the greater saphenous vein, superficial femoral vein, and the popliteal vein. In addition, the posterior tibial and peroneal trunk were evaluated. Serial compression, augmentation maneuvers, and spectral Doppler flow evaluation were performed. FINDINGS: Patient is positioned on his right side and sitting up. Very difficult to image right GSV and CFV. Unable to access the patients left leg further than his GSV and SFV due to position. No DVT seen but extremely limited. CONCLUSIONS Very limited evaluation of the lower extremity veins. Negative left GSV and SFV, otherwise cannot evaluate left veins. Limited entire right venous doppler. Dr. Adrianne Graham DO (Electronically Signed) Final Date: 18 July 2022 10:02 S
[2022-07-18 11:10] LABS: Glucose Point of Care 239 mg/dL (70-110)
[2022-07-18] MEDS: vancomycin 1,000 MG in sodium chloride 0.9% 250 ML 250 MG IV (14:24)
--- NOTE | 2022-07-18 14:26 | P.PN_ITS ---
Subjective Subjective: He is bothered by back pain while laying back in bed, wanting to sit up. Has been confused as per discussion with his . Vitals/I&O/Wt Last Vital Signs Temp 98.7 F 07/18/22 12:00 Pulse 80 07/18/22 12:00 Resp 18 07/18/22 12:00 BP 120/76 07/18/22 12:00 Pulse Ox 98 07/18/22 12:00 O2 Del Method 07/18/22 12:00 O2 Flow Rate 2 07/18/22 10:34 07/17/22 07/18/22 07/18/22 22:59 06:59 14:59 Intake Total 1181.25 / 2696.25 1640 / 4336.25 800 / 800 Balance 1181.25 / 2696.25 1640 / 4336.25 800 / 800 Physical Exam Const: COMMON NORMALS: alert GENERAL APPEARANCE: cooperative NUTRITIONAL APPEARANCE: obese ORIENTATION/CONSCIOUSNESS: Yes awake and Yes confused HENMT: COMMON NORMALS: oropharynx normal Neck/C-Spine: COMMON NORMALS: no JVD Resp: COMMON NORMALS: normal respiratory effort and clear to auscultation bilaterally AUSCULTATION: clear to auscultation bilaterally Cardio: COMMON NORMALS: no JVD, regular rhythm, S1 normal heart sound present, S2 normal heart sound present and No murmurs present (Cardio) RHYTHM: regular rhythm HEART SOUNDS: S1 normal heart sound present and S2 normal heart sound present GI: COMMON NORMALS: Normal to inspection, nondistended, normoactive bowel sounds present, Soft to palpation and non-tender PALPATION: Yes Soft to palpation Extremity: COMMON NORMALS: no joint enlargement and no pedal edema Neuro: COMMON NORMALS: moves all extremities SENSORIUM/ORIENTATION: Yes alert Skin: COMMON NORMALS: no rashes or lesions noted GENERAL SKIN EXAM: no rashes or lesions noted Data : 07/18/22 04:24 07/18/22 04:24 Micro: Microbiology 07/16/22 09:39 Urine Culture - Final Urine,Clean Catch 07/16/22 08:01 Blood Culture - Preliminary Blood NEGATIVE TO DATE A&P Assessment and plan (1) Recurrent UTI: Complicated UTI with ESBL bacteremia, with acute metabolic encephalopathy. 4.9 cm complicated cyst in left kidney, possibly blood clot, neoplasm not excluded. D-dimer with elevation. Lower extremity duplex checked, negative for DVT. Continue Primaxin. Follow-up blood cultures which were repeated on 07/16, so far negative. We will quest for midline placement for him to have 14 days of intravenous antibiotic. Sensitive to ertapenem. Dr. Downing recommended increasing dose of fosfomycin to twice a day every 3 days and using ertapenem at the time of discharge Status: Chronic (2) Restrictive lung disease: Status: Chronic (3) Dementia: Status: Chronic (4) Calculus of prostatic fossa: Status: Chronic (5) Renal calculi: Status: Chronic (6) Endocarditis: Status: Chronic (7) Shortness of breath: Status: Chronic (8) Chronic use of steroids: Status: Chronic (9) Rheumatoid arthritis: Status: Chronic Qualifiers: Rheumatoid arthritis location: multiple sites Rheumatoid factor pres ence: with rheumatoid factor Qualified Code(s): M05.79 - Rheumatoid arthritis with rheumatoid factor of multiple sites without organ or systems involvement (10) Sepsis: Status: Acute Plan Hospital course 66-year male who presented to the hospital for fever, chills, he was diagnosed with sepsis related to UTI, please note he has history of recurrent UTI with ESBL Klebsiella has been evaluated by Dr. Berkowitz for renal calculi and ID for recurrent UTI he was taking fosfomycin since January along amoxicillin I spoke with Dr. Downing who recommended increasing his fosfomycin to twice a day dose every 3 days at the time of discharge along ertapenem with PICC line for 14 days, she is in agreement with imipenem administration during hospitalization for now Patient has a complex cyst which has been evaluated by Dr. Berkowitz, he does have chronic renal calculi Please note he was discharged a few days ago on p.o. antibiotics with instructions to continue his chronic p.o. suppressive therapy however after his discharge his blood pressure came back positive for bacteremia with Klebsiella ESBL hence he was readmitted on 07/16 Patient lives with his at home Additional problems: D-dimer elevated: Significant ovation of D-dimer. INR supratherapeutic overnight warfarin had to be held. Does not have bleeding. Fibrinogen is not low. Lower extremity duplex without DVT. Possibly secondary to renal lesion/complex cyst. Malignancy not excluded. Possibly secondary to infection. Follow-up DIC panel. Monitor for bleeding. Abdominal wall cellulitis Currently on broad-spectrum antibiotics with vancomycin and imipenem Chronic steroid use with immunocompromise state Continue chronic steroid regimen I have not given him stress dose steroids his blood pressure has been stable No signs of adrenal crisis Restrictive lung disease requiring 2 L of oxygen which is his home requirement BPH continue tamsulosin Gallstones of gallbladder without cholecystitis He takes Coumadin for his valvular A. fib, history of endocarditis status post TAVR, takes Coumadin A. fib without RVR continue AV nancy blocking agents Attestations Medical Necessity Statement*: Continue admission for assessment management of complicated urinary tract infection, pyelonephritis, with ESBL organism, ESBL bacteremia, acute encephalopathy. Coding Level of Care Code Acute Marketing Communications Coordinator for [facility] Fwd Diagnoses Recurrent UTI N39.0 Restrictive lung disease J98.4 Dementia F03.90 Calculus of prostatic fossa N42.0 Renal calculi N20.0 Endocarditis I38 Shortness of breath R06.02 Chronic use of steroids Rheumatoid arthritis M05.79 Rheumatoid arthritis location: multiple sites Rheumatoid factor presence: with rheumatoid factor Sepsis A41.9
[2022-07-18] MEDS: FUROsemide 10 mg/mL SDV 2mL 20 MG IVP (16:51)
[2022-07-18 17:04] LABS: Glucose Point of Care 236 mg/dL (70-110)
[2022-07-18 21:05] LABS: Glucose Point of Care 298 mg/dL (70-110)
[2022-07-18 21:05] LABS: Glucose Point of Care 174 mg/dL (70-110)
[2022-07-18] MEDS: insulin glargine 100 units/1 mL 20 UNIT SUBCUT (21:23)
[2022-07-18] MEDS: dilTIAZem 5 mg/mL SDV 5 mL IVP (22:33)
[2022-07-19] VITALS (9 sets, daily range): BP systolic 95–123; BP diastolic 61–84; PULSE 75–113; RESP 18–24; TEMP 36.3–38.5; O2SAT 93–99
[2022-07-19] MEDS: acetaminophen 325 mg Tablet 650 MG PO (00:45)
[2022-07-19] MEDS: vancomycin 1,000 MG in sodium chloride 0.9% 250 ML 250 MG IV ×2 (01:52→21:31)
[2022-07-19] MEDS: dilTIAZem ER (24HR) 120 mg Capsule PO (03:00)
--- NOTE | 2022-07-19 03:18 | PC.NURSE ---
PO cardizem dose given early per Dr Oscar
[2022-07-19] MEDS: dilTIAZem 5 mg/mL SDV 5 mL IVP (03:26)
[2022-07-19 05:24] LABS: Basophils # 0.1 10^3/uL (0.0-0.1); Basophils % 0.3 %; Eosinophils % 0.1 %; Hematocrit 32.5 % (42.0-52.0); Hemoglobin 9.8 g/dL (11.7-16.6); Lymphocytes # 0.3 10^3/uL (0.8-4.8); Lymphocytes % 1.7 %; Mean Corpuscular HGB Conc 30.2 g/dL (30.0-36.0); Mean Corpuscular Hemoglobin 17.7 pg (28.0-34.0); Mean Corpuscular Volume 58.6 fl (80-94); Monocytes # 0.5 10^3/uL (0.2-0.9); Monocytes % 3.1 %; Neutrophils # 13.71 10^3/uL (1.8-7.7); Neutrophils % 92.2 %; Nucleated Red Blood Cells % 0.1 %; Platelet Count 159 10^3/cmm (130-400); Red Blood Count 5.55 10^6/uL (4.1-5.3); Red Cell Distribution Width 19.8 % (12.1-15.1); White Blood Count 14.9 10^3/uL (4.0-10.0)
[2022-07-19 05:42] LABS: Mean Platelet Volume 11.3 fL (7.4-10.4)
[2022-07-19 05:44] LABS: Anion Gap 12.3 (5-19); Blood Urea Nitrogen 27 mg/dL (8-23); Calcium 8.3 mg/dL (8.5-10.5); Carbon Dioxide 24 mmol/L (22-29); Chloride 104 mmol/L (98-107); Glomerular Filtration Rate 66.6 mL/min (90-130); Glucose 132 mg/dL (65-115); Osmolality Calculated 291 mOsm/kg (285-295); Potassium 3.3 mmol/L (3.5-5.1); Sodium 137 mmol/L (136-145)
[2022-07-19] MEDS: predniSONE 5 mg Tablet 7.5 MG PO (06:06)
[2022-07-19] MEDS: tamsulosin 0.4 mg Capsule PO (06:07)
[2022-07-19 06:28] LABS: Glucose Point of Care 176 mg/dL (70-110)
--- NOTE | 2022-07-19 07:15 | PC.NURSE ---
Bedside report received from Paige KAPOOR at this time.
[2022-07-19] MEDS: carvedilol 6.25 mg Tablet PO ×2 (09:26→21:30)
[2022-07-19] MEDS: sennosides-docusate Tablet 1 TAB PO (09:26)
[2022-07-19] MEDS: insulin glargine 100 units/1 mL 40 UNIT SUBCUT (09:27)
[2022-07-19] MEDS: insulin lispro 100 unit/1 mL SUBCUT ×3 (09:27→17:20)
[2022-07-19] MEDS: ipratropium-albuterol 3 mL Neb INHALATION ×2 (09:56→22:22)
--- NOTE | 2022-07-19 10:33 | PC.SOCIAL ---
IMM update IMM updated with patient and at bedside. Verbalized an understanding. Copy Pg 2 provided. Initialled, dated, timed, and placed in chart.
[2022-07-19 11:31] LABS: Glucose Point of Care 265 mg/dL (70-110)
[2022-07-19 12:46] LABS: INR 3.58 (0.8-1.2)
[2022-07-19 13:27] LABS: SARS Covid-2 Antigen Positive (Negative)
[2022-07-19] MEDS: potassium chloride ER 20 mEq Tablet PO (13:33)
[2022-07-19] MEDS: ertapenem 1,000 MG in sodium chloride 0.9% (plus) 100 ML 200 MG IV (13:34)
[2022-07-19 17:01] LABS: Glucose Point of Care 234 mg/dL (70-110)
--- NOTE | 2022-07-19 18:55 | PC.NURSE ---
report given to peter johnson at this time
--- NOTE | 2022-07-19 19:02 | PM.PN ---
Subjective Subjective: He appears to be slightly more lucid today. He is able to tell me that he is in the hospital. He does not remember the year. Denies being in any pain this morning. Denies feeling short of breath. Vitals/I&O/Wt Last Vital Signs Temp 97.4 F L 07/19/22 15:43 Pulse 109 H 07/19/22 15:43 Resp 18 07/19/22 15:43 BP 100/70 07/19/22 15:43 Pulse Ox 96 07/19/22 15:43 O2 Del Method 07/19/22 15:43 O2 Flow Rate 2 07/19/22 09:56 07/19/22 07/19/22 07/19/22 06:59 14:59 22:59 Intake Total 350 / 2620 800 / 800 150 / 950 Balance 350 / 2620 800 / 800 150 / 950 Physical Exam Const: COMMON NORMALS: alert; negative for patient oriented x3 GENERAL APPEARANCE: cooperative NUTRITIONAL APPEARANCE: obese ORIENTATION/CONSCIOUSNESS: Yes awake and Yes confused HENMT: COMMON NORMALS: oropharynx normal Neck/C-Spine: COMMON NORMALS: no JVD Resp: COMMON NORMALS: normal respiratory effort and clear to auscultation bilaterally AUSCULTATION: clear to auscultation bilaterally Cardio: COMMON NORMALS: no JVD, regular rhythm, S1 normal heart sound present, S2 normal heart sound present and No murmurs present (Cardio) RHYTHM: regular rhythm HEART SOUNDS: S1 normal heart sound present and S2 normal heart sound present GI: COMMON NORMALS: Normal to inspection, nondistended, normoactive bowel sounds present, Soft to palpation and non-tender PALPATION: Yes Soft to palpation Extremity: COMMON NORMALS: no joint enlargement and no pedal edema Neuro: COMMON NORMALS: moves all extremities; negative for patient oriented x3 SENSORIUM/ORIENTATION: Yes alert Skin: COMMON NORMALS: no rashes or lesions noted GENERAL SKIN EXAM: no rashes or lesions noted Data : 07/19/22 05:00 07/19/22 05:00 Micro: Microbiology 07/16/22 09:39 Urine Culture - Final Urine,Clean Catch A&P Assessment and plan (1) Recurrent UTI: Today midline catheter was placed and received first dose of ertapenem, her, subsequently tested positive for COVID-19 on rapid antigen testing, so transferred to skilled nurse facility could not occur today. Transition back to Primaxin. Continue while post discharge planning and arrangements underway. We will obtain PT, OT assessment. Complicated UTI with ESBL bacteremia, with acute metabolic encephalopathy. 4.9 cm complicated cyst in left kidney, possibly blood clot, neoplasm not excluded. D-dimer with elevation. Lower extremity duplex checked, negative for DVT. Continue Primaxin. Follow-up blood cultures which were repeated on 07/16, so far negative. We will quest for midline placement for him to have 14 days of intravenous antibiotic. Sensitive to ertapenem. Dr. Downing recommended increasing dose of fosfomycin to twice a day every 3 days and using ertapenem at the time of discharge Status: Chronic (2) Restrictive lung disease: Status: Chronic (3) Dementia: Status: Chronic (4) Calculus of prostatic fossa: Status: Chronic (5) Renal calculi: Status: Chronic (6) Endocarditis: Status: Chronic (7) Shortness of breath: Status: Chronic (8) Chronic use of steroids: Status: Chronic (9) Rheumatoid arthritis: Status: Chronic Qualifiers: Rheumatoid arthritis location: multiple sites Rheumatoid factor presence: with rheumatoid factor Qualified Code(s): M05.79 - Rheumatoid arthritis with rheumatoid factor of multiple sites without organ or systems involvement (10) Sepsis: Status: Acute (11) COVID-19: Incidentally found COVID-19 positive on rapid antigen test as part of routine screening for [facility] facility. He actually has been improving, he is more alert. His oxygenation remains at baseline oxygen of 2 L. He is not short of breath, has no cough. This is incidental finding of likely very mild infection. Could be false positive. Monitor for any change in symptoms. Status: Acute Plan Hospital course 66-year male who presented to the hospital for fever, chills, he was diagnosed with sepsis related to UTI, please note he has history of recurrent UTI with ESBL Klebsiella has been evaluated by Dr. Berkowitz for renal calculi and ID for recurrent UTI he was taking fosfomycin since January along amoxicillin I spoke with Dr. Downing who recommended increasing his fosfomycin to twice a day dose every 3 days at the time of discharge along ertapenem with PICC line for 14 days, she is in agreement with imipenem administration during hospitalization for now Patient has a complex cyst which has been evaluated by Dr. Berkowitz, he does have chronic renal calculi Please note he was discharged a few days ago on p.o. antibiotics with instructions to continue his chronic p.o. suppressive therapy however after his discharge his blood pressure came back positive for bacteremia with Klebsiella ESBL hence he was readmitted on 07/16 Patient lives with his at home Additional problems: Supratherapeutic INR: Warfarin has been held, improving, recheck INR. Resume warfarin likely at lower dose 5 mg. D-dimer elevated: Significant ovation of D-dimer. INR supratherapeutic overnight warfarin had to be held. Does not have bleeding. Fibrinogen is not low. Lower extremity duplex without DVT. Possibly secondary to renal lesion/complex cyst. Malignancy not excluded. Possibly secondary to infection. Follow-up DIC panel. Monitor for bleeding. Abdominal wall cellulitis Currently on broad-spectrum antibiotics with vancomycin and imipenem Chronic steroid use with immunocompromise state Continue chronic steroid regimen I have not given him stress dose steroids his blood pressure has been stable No signs of adrenal crisis Restrictive lung disease requiring 2 L of oxygen which is his home requirement BPH continue tamsulosin Gallstones of gallbladder without cholecystitis He takes Coumadin for his valvular A. fib, history of endocarditis status post TAVR, takes Coumadin A. fib without RVR continue AV nancy blocking agents Attestations Medical Necessity Statement*: Continue admission for management of multidrug-resistant organism pyelonephritis, complicated urinary infection with bacteremia, IV antibiotics, arrangements for continued intravenous antibiotic after discharge. Coding Level of Care Code Acute Thread Winder Automatic for [facility] Fwd Diagnoses Recurrent UTI N39.0 Restrictive lung disease J98.4 Dementia F03.90 Calculus of prostatic fossa N42.0 Renal calculi N20.0 Endocarditis I38 Shortness of breath R06.02 Chronic use of steroids Rheumatoid arthritis M05.79 Rheumatoid arthritis location: multiple sites Rheumatoid factor presence: with rheumatoid factor Sepsis A41.9 COVID-19 U07.1
[2022-07-19 20:34] LABS: Glucose Point of Care 221 mg/dL (70-110)
[2022-07-19] MEDS: insulin glargine 100 units/1 mL 20 UNIT SUBCUT (21:30)
[2022-07-19] MEDS: ondansetron 2 mg/ML SDV 2 mL 4 MG IVP (23:22)
[2022-07-20] VITALS (11 sets, daily range): BP systolic 100–124; BP diastolic 54–90; PULSE 68–118; RESP 14–32; TEMP 36.1–37.3; O2SAT 93–100
[2022-07-20 05:04] LABS: Basophils # 0.1 10^3/uL (0.0-0.1); Basophils % 0.4 %; Eosinophils # 0.2 10^3/uL (0.0-0.8); Eosinophils % 1.4 %; Hematocrit 29.2 % (42.0-52.0); Hemoglobin 8.9 g/dL (11.7-16.6); Lymphocytes # 1.2 10^3/uL (0.8-4.8); Lymphocytes % 7.2 %; Mean Corpuscular HGB Conc 30.5 g/dL (30.0-36.0); Mean Corpuscular Hemoglobin 17.9 pg (28.0-34.0); Mean Corpuscular Volume 58.6 fl (80-94); Monocytes # 1.1 10^3/uL (0.2-0.9); Monocytes % 6.7 %; Neutrophils # 13.73 10^3/uL (1.8-7.7); Neutrophils % 83.8 %; Nucleated Red Blood Cells % 0.2 %; Platelet Count 170 10^3/cmm (130-400); Positive M 1; Red Blood Count 4.98 10^6/uL (4.1-5.3); Red Cell Distribution Width 19.3 % (12.1-15.1); White Blood Count 16.4 10^3/uL (4.0-10.0)
[2022-07-20 05:17] LABS: INR 1.92 (0.8-1.2); Slide Review Slide Review Perform
[2022-07-20 05:23] LABS: Anion Gap 11.9 (5-19); Blood Urea Nitrogen 37 mg/dL (8-23); Calcium 8.5 mg/dL (8.5-10.5); Carbon Dioxide 25 mmol/L (22-29); Chloride 101 mmol/L (98-107); Glomerular Filtration Rate 74.3 mL/min (90-130); Glucose 215 mg/dL (65-115); Osmolality Calculated 293 mOsm/kg (285-295); Potassium 3.9 mmol/L (3.5-5.1); Sodium 134 mmol/L (136-145)
[2022-07-20] MEDS: predniSONE 5 mg Tablet 7.5 MG PO (05:23)
[2022-07-20] MEDS: dilTIAZem ER (24HR) 120 mg Capsule PO (05:24)
[2022-07-20] MEDS: tamsulosin 0.4 mg Capsule PO (05:24)
[2022-07-20 06:36] LABS: Glucose Point of Care 212 mg/dL (70-110)
[2022-07-20] MEDS: carvedilol 6.25 mg Tablet PO ×2 (08:28→20:30)
[2022-07-20] MEDS: sennosides-docusate Tablet 1 TAB PO (08:28)
[2022-07-20] MEDS: insulin glargine 100 units/1 mL 40 UNIT SUBCUT (08:29)
[2022-07-20] MEDS: insulin lispro 100 unit/1 mL SUBCUT ×3 (08:31→18:19)
[2022-07-20] MEDS: ipratropium-albuterol 3 mL Neb INHALATION ×2 (09:31→20:02)
[2022-07-20 11:32] LABS: Glucose Point of Care 219 mg/dL (70-110)
[2022-07-20] MEDS: vancomycin 1,000 MG in sodium chloride 0.9% 250 ML 250 MG IV (15:17)
--- NOTE | 2022-07-20 15:22 | PM.PN ---
Subjective Subjective: He reports he is doing okay. Denies chest pain or pressure. Denies having difficulty breathing at rest. He knows he is in [facility]. He cannot tell me the year. Vitals/I&O/Wt Last Vital Signs Temp 97.5 F L 07/20/22 11:42 Pulse 70 07/20/22 11:42 Resp 16 07/20/22 11:42 BP 114/72 07/20/22 11:42 Pulse Ox 99 07/20/22 11:42 O2 Del Method 07/20/22 11:42 O2 Flow Rate 2 07/20/22 09:41 07/20/22 07/20/22 07/20/22 06:59 14:59 22:59 Intake Total 730 / 2040 460 / 460 Balance 730 / 2040 460 / 460 Physical Exam Const: COMMON NORMALS: alert; negative for patient oriented x3 GENERAL APPEARANCE: cooperative NUTRITIONAL APPEARANCE: obese ORIENTATION/CONSCIOUSNESS: Yes awake and Yes confused HENMT: COMMON NORMALS: oropharynx normal Neck/C-Spine: COMMON NORMALS: no JVD Resp: COMMON NORMALS: normal respiratory effort and clear to auscultation bilaterally AUSCULTATION: clear to auscultation bilaterally Cardio: COMMON NORMALS: no JVD, regular rhythm, S1 normal heart sound present, S2 normal heart sound present and No murmurs present (Cardio) RHYTHM: regular rhythm HEART SOUNDS: S1 normal heart sound present and S2 normal heart sound present GI: COMMON NORMALS: Normal to inspection, nondistended, normoactive bowel sounds present, Soft to palpation and non-tender PALPATION: Yes Soft to palpation Extremity: COMMON NORMALS: no joint enlargement and no pedal edema Neuro: COMMON NORMALS: moves all extremities; negative for patient oriented x3 SENSORIUM/ORIENTATION: Yes alert Skin: COMMON NORMALS: no rashes or lesions noted GENERAL SKIN EXAM: no rashes or lesions noted Data : 07/20/22 04:20 07/20/22 04:20 A&P Assessment and plan (1) Recurrent UTI: Persistent leukocytosis 16.4. Continues on Primaxin via midline catheter. Continue arrangements post discharge skilled care. PT, OT assessment. Complicated UTI with ESBL bacteremia, with acute metabolic encephalopathy. 4.9 cm complicated cyst in left kidney, possibly blood clot, neoplasm not excluded. D-dimer with elevation. Lower extremity duplex checked, negative for DVT. Sensitive to ertapenem. Dr. Downing recommended increasing dose of fosfomycin to twice a day every 3 days and using ertapenem at the time of discharge Status: Chronic (2) Restrictive lung disease: Status: Chronic (3) Dementia: Status: Chronic (4) Calculus of prostatic fossa: Status: Chronic (5) Renal calculi: Status: Chronic (6) Endocarditis: Status: Chronic (7) Shortness of breath: Status: Chronic (8) Chronic use of steroids: Status: Chronic (9) Rheumatoid arthritis: Status: Chronic Qualifiers: Rheumatoid arthritis location: multiple sites Rheumatoid factor presence: with rheumatoid factor Qualified Code(s): M05.79 - Rheumatoid arthritis with rheumatoid factor of multiple sites without organ or systems involvement (10) Sepsis: Status: Acute (11) COVID-19: Incidentally found COVID-19 positive on rapid antigen test as part of routine screening for alf facility. He actually has been improving, he is more alert. His oxygenation remains at baseline oxygen of 2 L. He is not short of breath, has no cough. This is incidental finding of likely very mild infection. Could be false positive. Monitor for any change in symptoms. Status: Acute Plan Hospital course 66-year male who presented to the hospital for fever, chills, he was diagnosed with sepsis related to UTI, please note he has history of recurrent UTI with ESBL Klebsiella has been evaluated by Dr. Berkowitz for renal calculi and ID for recurrent UTI he was taking fosfomycin since January along amoxicillin I spoke with Dr. Downing who recommended increasing his fosfomycin to twice a day dose every 3 days at the time of discharge along ertapenem with PICC line for 14 days, she is in agreement with imipenem administration during hospitalization for now Patient has a complex cyst which has been evaluated by Dr. Berkowitz, he does have chronic renal calculi Please note he was discharged a few days ago on p.o. antibiotics with instructions to continue his chronic p.o. suppressive therapy however after his discharge his blood pressure came back positive for bacteremia with Klebsiella ESBL hence he was readmitted on 07/16 Patient lives with his at home Additional problems: Supratherapeutic INR: Warfarin has been held, improving, recheck INR. Resume warfarin likely at lower dose 5 mg. D-dimer elevated: Significant ovation of D-dimer. INR supratherapeutic overnight warfarin had to be held. Does not have bleeding. Fibrinogen is not low. Lower extremity duplex without DVT. Possibly secondary to renal lesion/complex cyst. Malignancy not excluded. Possibly secondary to infection. Follow-up DIC panel. Monitor for bleeding. Abdominal wall cellulitis Currently on broad-spectrum antibiotics with vancomycin and imipenem Chronic steroid use with immunocompromise state Continue chronic steroid regimen I have not given him stress dose steroids his blood pressure has been stable No signs of adrenal crisis Restrictive lung disease requiring 2 L of oxygen which is his home requirement BPH continue tamsulosin Gallstones of gallbladder without cholecystitis He takes Coumadin for his valvular A. fib, history of endocarditis status post TAVR, takes Coumadin A. fib without RVR continue AV nancy blocking agents Attestations Medical Necessity Statement*: Continue IV antibiotic for multidrug-resistant organism caused pyelonephritis, monitoring for any change in condition with COVID-19, arrangements for continued antibiotic therapy after discharge. Coding Level of Care Code Acute Director Of Event Sales for [facility] Fwd Diagnoses Recurrent UTI N39.0 Restrictive lung disease J98.4 Dementia F03.90 Calculus of prostatic fossa N42.0 Renal calculi N20.0 Endocarditis I38 Shortness of breath R06.02 Chronic use of steroids Rheumatoid arthritis M05.79 Rheumatoid arthritis location: multiple sites Rheumatoid factor presence: with rheumatoid factor Sepsis A41.9 COVID-19 U07.1
--- NOTE | 2022-07-20 16:40 | PC.OT ---
unable to assess patient this date. Will attempt tomorrow.
[2022-07-20 17:07] LABS: Glucose Point of Care 156 mg/dL (70-110)
--- NOTE | 2022-07-20 17:38 | XRR_ITS ---
PROCEDURE INFORMATION: Exam: XR Chest Exam date and time: 07/20/2022 5:46 PM Age: 66 years old Clinical indication: Other: Hypoxia TECHNIQUE: Imaging protocol: Radiologic exam of the chest. Views: 1 view. COMPARISON: CR (CHEST, ) 07/16/2022 8:04 AM FINDINGS: Lungs: There is increased lung markings, in association with haziness of the lungs and small left pleural effusion, which in the setting of cardiomegaly is consistent with pulmonary edema. Pneumonia should be excluded clinically. No pneumothorax. Pleural spaces: See Lungs finding. Heart/Mediastinum: Stable cardiomediastinal silhouette. Prosthetic aortic valve seen. Bones/joints: Unremarkable. XR/XR chest 1V portable [id number] IMPRESSION: Imaging findings of pulmonary edema with small left pleural effusion. Pneumonia should be excluded clinically.
[2022-07-20] MEDS: dexamethasone 10 mg/mL INJ 6 MG IVP (17:48)
[2022-07-20] MEDS: FUROsemide 10 mg/mL SDV 4mL 40 MG IVP (17:48)
[2022-07-20] MEDS: ondansetron 2 mg/ML SDV 2 mL 4 MG IVP (17:50)
[2022-07-20 17:55] LABS: Alveolar-Arterial Oxygen Gradi 17.7 mmHg (5-10); Base Excess ABG -1.6 mmol/L (-2.0-2.0); Blood Gas Sample Site Brachial, left; Blood Gas Sample Type Arterial; Carboxyhemoglobin 0.8 %THgb (0.4-20.1); HCO3 ABG 22.9 mmol/L (22-26); HGB O2 Sat 98.1 % (95-100); Ionized Calcium Level - ABG 1.3 mmol/L (1.1-1.4); Oxygen Device BIPAP; Oxygen Saturation ABG 99.9; Potassium Level - ABG 4.1 mmol/L (3.5-5.0); Total Hemoglobin 10.4 g/dL (14-18)
[2022-07-20] MEDS: warfarin 5 mg Tablet PO (18:20)
[2022-07-20] MEDS: remdesivir 200 MG in sodium chloride 0.9% (100 ml) 60 ML 100 MG IV (18:21)
--- NOTE | 2022-07-20 19:16 | PC.NURSE ---
This nurse went to round and pass evening meds, found pt lying on side of bed eating dinner and shivering. Pt stated I cannot breathe and I need to go to the hospital . Pt hid his head under his blankets. This nurse went to get assistance from mentoring nurse. Vitals taken, pt's O2 sats were low and rapid response was called. Respiratory placed bipap on pt and meds were administered per documentation on JAN. Dr Dias was notified during event. Pt's O2 sats came back up, rider placed to measure accurate I&Os.
--- NOTE | 2022-07-20 19:21 | PC.NURSE ---
Report Fatmata KAPOOR gave report to [facility].
[2022-07-20] MEDS: insulin glargine 100 units/1 mL 20 UNIT SUBCUT (20:30)
[2022-07-20 21:23] LABS: Glucose Point of Care 130 mg/dL (70-110)
[2022-07-21] VITALS (20 sets, daily range): BP systolic 115–127; BP diastolic 75–84; PULSE 85–114; RESP 12–23; TEMP 36.1–37.1; O2SAT 93–99
[2022-07-21] MEDS: ipratropium-albuterol 3 mL Neb INHALATION ×4 (01:59→21:27)
[2022-07-21 05:06] LABS: Basophils % 0.3 %; Eosinophils % 0.1 %; Hematocrit 32.6 % (42.0-52.0); Hemoglobin 9.5 g/dL (11.7-16.6); Lymphocytes % 6.5 %; Mean Corpuscular HGB Conc 29.1 g/dL (30.0-36.0); Mean Corpuscular Hemoglobin 17.6 pg (28.0-34.0); Mean Corpuscular Volume 60.4 fl (80-94); Monocytes % 6.1 %; Neutrophils # 13.31 10^3/uL (1.8-7.7); Neutrophils % 86.2 %; Nucleated Red Blood Cells % 0.1 %; Platelet Count 165 10^3/cmm (130-400); Red Cell Distribution Width 19.9 % (12.1-15.1); White Blood Count 15.5 10^3/uL (4.0-10.0)
[2022-07-21] MEDS: dilTIAZem ER (24HR) 120 mg Capsule PO (05:32)
[2022-07-21] MEDS: tamsulosin 0.4 mg Capsule PO (05:32)
[2022-07-21 05:46] LABS: Blood Urea Nitrogen 33 mg/dL (8-23); Calcium 8.6 mg/dL (8.5-10.5); Carbon Dioxide 24 mmol/L (22-29); Chloride 102 mmol/L (98-107); Glomerular Filtration Rate 83.9 mL/min (90-130); Glucose 136 mg/dL (65-115); Osmolality Calculated 291 mOsm/kg (285-295); Sodium 136 mmol/L (136-145)
--- NOTE | 2022-07-21 06:00 | XRR_ITS ---
PROCEDURE INFORMATION: Exam: XR Chest Exam date and time: 07/21/2022 5:40 AM Age: 66 years old Clinical indication: Shortness of breath; Patient HX: SOB follow up; Additional info: Hypoxia TECHNIQUE: Imaging protocol: Radiologic exam of the chest. Views: 1 view. COMPARISON: CR (CHEST, ) 07/20/2022 5:46 PM FINDINGS: Lungs: Low lung volumes. Persistent redistribution and indistinctness of the pulmonary vasculature, in association with haziness of the lungs and small left pleural effusion, which in the setting of cardiomegaly is consistent with pulmonary edema. Pneumonia should be excluded clinically. No pneumothorax. Pleural spaces: See Lungs finding. Heart/Mediastinum: Stable cardiomediastinal silhouette. Prosthetic aortic valve seen. Bones/joints: Unremarkable. XR/XR chest 1V portable [id number] IMPRESSION: Persistent pulmonary edema with small left pleural effusion. Pneumonia should be excluded clinically.
[2022-07-21 06:09] LABS: Anion Gap 14.6 (5-19); Potassium 4.6 mmol/L (3.5-5.1)
[2022-07-21 06:20] LABS: Glucose Point of Care 166 mg/dL (70-110)
[2022-07-21 06:33] LABS: Slide Review Slide Review Perform
[2022-07-21 06:34] LABS: Positive M 1
[2022-07-21 07:53] LABS: INR 1.52 (0.8-1.2)
[2022-07-21] MEDS: carvedilol 6.25 mg Tablet PO ×2 (08:20→20:52)
[2022-07-21] MEDS: sennosides-docusate Tablet 1 TAB PO (08:20)
[2022-07-21] MEDS: insulin glargine 100 units/1 mL 40 UNIT SUBCUT (08:21)
[2022-07-21] MEDS: insulin lispro 100 unit/1 mL SUBCUT ×3 (08:21→17:47)
[2022-07-21] MEDS: vancomycin 1,000 MG in sodium chloride 0.9% 250 ML 250 MG IV (09:38)
[2022-07-21] MEDS: FUROsemide 10 mg/mL SDV 4mL 40 MG IVP (09:44)
--- NOTE | 2022-07-21 10:40 | PC.SOCIAL ---
IMM Update pg 2 of IMM updated and reviewed w/ patient and . Copy provided and copy in chart dated and initialed.
--- NOTE | 2022-07-21 10:55 | PM.PN ---
Subjective Subjective: He is doing better today. Reports breathing is better. Denies chest pain. Denies headache nausea vomiting or diarrhea. This morning weaned down to nasal cannula. Did require BiPAP overnight. Vitals/I&O/Wt Last Vital Signs Temp 98.7 F 07/21/22 04:00 Pulse 102 H 07/21/22 08:00 Resp 16 07/21/22 08:00 BP 123/78 07/21/22 08:00 Pulse Ox 99 07/21/22 08:00 O2 Del Method 07/21/22 08:00 O2 Flow Rate 2 07/20/22 09:41 FiO2 35 07/21/22 07:54 07/20/22 07/21/22 07/21/22 22:59 06:59 14:59 Intake Total 450 / 910 320 / 1230 Output Total 1950 / 1950 1400 / 3350 270 / 270 Balance -1500 / -1040 -1080 / -2120 -270 / -270 Physical Exam Const: COMMON NORMALS: alert; negative for patient oriented x3 GENERAL APPEARANCE: cooperative NUTRITIONAL APPEARANCE: obese ORIENTATION/CONSCIOUSNESS: Yes awake and Yes confused HENMT: COMMON NORMALS: oropharynx normal Neck/C-Spine: COMMON NORMALS: no JVD Resp: COMMON NORMALS: normal respiratory effort AUSCULTATION: wheezes and diminished lung sounds Cardio: COMMON NORMALS: no JVD, regular rhythm, S1 normal heart sound present, S2 normal heart sound present and No murmurs present (Cardio) RHYTHM: regular rhythm HEART SOUNDS: S1 normal heart sound present and S2 normal heart sound present GI: COMMON NORMALS: Normal to inspection, nondistended, normoactive bowel sounds present, Soft to palpation and non-tender PALPATION: Yes Soft to palpation Extremity: COMMON NORMALS: no joint enlargement and no pedal edema Neuro: COMMON NORMALS: moves all extremities; negative for patient oriented x3 SENSORIUM/ORIENTATION: Yes alert Skin: COMMON NORMALS: no rashes or lesions noted GENERAL SKIN EXAM: no rashes or lesions noted Urinary Catheter Management: Arriola: Cath Placed During This Visit: yes Reason for Continuing Indwelling Catheter: Other Urinary Catheter Date of Insertion: 07/20/22 Urinary Catheter Time of Insertion: 17:44 Data : 07/21/22 04:20 07/21/22 04:20 Micro: Microbiology 07/16/22 08:01 Blood Culture - Final Blood NO GROWTH AFTER 5 DAYS A&P Assessment and plan (1) Respiratory failure with hypoxia: Acute respiratory failure with hypoxia yesterday evening, with dyspnea, hypoxia, wheezing. Was started on BiPAP support. Received breathing treatment, Lasix. Repeat chest x-ray with persistent pulmonary edema with small left pleural effusion. Pneumonia possible. As discussed with his , could also be having more severe symptoms now from COVID-19, so was started also on remdesivir, Decadron. Will reassess again in the morning, if continues to do well, perhaps could cautiously discharge. He is empirically on Primaxin, vancomycin for possibility of superimposed bacterial pneumonia. Continue Lasix for fluid overload. Status: Acute (2) COVID-19: Due to worsening respiratory condition last night started on Decadron, respiratory. Continue oxygen support. Today appears to be doing somewhat better. We will continue with Decadron remdesivir today. We will reassess in the morning. Incidentally found COVID-19 positive on rapid antigen test as part of routine screening for senior care facility. Status: Acute (3) Recurrent UTI: Continues on Primaxin via midline catheter. Continue arrangements post discharge skilled care to continue infusions with ertapenem. Improved alertness. Complicated UTI with ESBL bacteremia, with acute metabolic encephalopathy. 4.9 cm complicated cyst in left kidney, possibly blood clot, neoplasm not excluded. D-dimer with elevation. Lower extremity duplex checked, negative for DVT. Sensitive to ertapenem. Dr. Downing recommended increasing dose of fosfomycin to twice a day every 3 days and using ertapenem at the time of discharge Status: Chronic (4) Restrictive lung disease: Status: Chronic (5) Dementia: Status: Chronic (6) Calculus of prostatic fossa: Status: Chronic (7) Renal calculi: Status: Chronic (8) Endocarditis: Status: Chronic (9) Shortness of breath: Status: Chronic (10) Chronic use of steroids: Status: Chronic (11) Rheumatoid arthritis: Status: Chronic Qualifiers: Rheumatoid arthritis location: multiple sites Rheumatoid factor presence: with rheumatoid factor Qualified Code(s): M05.79 - Rheumatoid arthritis with rheumatoid factor of multiple sites without organ or systems involvement (12) Sepsis: Status: Acute Plan Hospital course 66-year male who presented to the hospital for fever, chills, he was diagnosed with sepsis related to UTI, please note he has history of recurrent UTI with ESBL Klebsiella has been evaluated by Dr. Berkowitz for renal calculi and ID for recurrent UTI he was taking fosfomycin since January along amoxicillin I spoke with Dr. Downing who recommended increasing his fosfomycin to twice a day dose every 3 days at the time of discharge along ertapenem with PICC line for 14 days, she is in agreement with imipenem administration during hospitalization for now Patient has a complex cyst which has been evaluated by Dr. Berkowitz, he does have chronic renal calculi Please note he was discharged a few days ago on p.o. antibiotics with instructions to continue his chronic p.o. suppressive therapy however after his discharge his blood pressure came back positive for bacteremia with Klebsiella ESBL hence he was readmitted on 07/16 Patient lives with his at home Additional problems: Supratherapeutic INR: Warfarin was resumed at lower dose 5 mg, today INR is lower still. We will for now go back to 7.5 mg. Likely once INR back to therapeutic will do better with 6 mg. D-dimer elevated: Significant ovation of D-dimer. INR supratherapeutic overnight warfarin had to be held. Does not have bleeding. Fibrinogen is not low. Lower extremity duplex without DVT. Possibly secondary to renal lesion/complex cyst. Malignancy not excluded. Possibly secondary to infection. Follow-up DIC panel. Monitor for bleeding. Abdominal wall cellulitis Currently on broad-spectrum antibiotics with vancomycin and imipenem Chronic steroid use with immunocompromise state Continue chronic steroid regimen I have not given him stress dose steroids his blood pressure has been stable No signs of adrenal crisis Restrictive lung disease requiring 2 L of oxygen which is his home requirement BPH continue tamsulosin Gallstones of gallbladder without cholecystitis He takes Coumadin for his valvular A. fib, history of endocarditis status post TAVR, takes Coumadin A. fib without RVR continue AV nancy blocking agents Attestations Medical Necessity Statement*: Continue admission for assessment management of acute respiratory failure, COVID-19, fluid overload. Coding Level of Care Code Acute Trip Motor Operator for [facility] Fwd Diagnoses Respiratory failure with hypoxia J96.91 COVID-19 U07.1 Recurrent UTI N39.0 Restrictive lung disease J98.4 Dementia F03.90 Calculus of prostatic fossa N42.0 Renal calculi N20.0 Endocarditis I38 Shortness of breath R06.02 Chronic use of steroids Rheumatoid arthritis M05.79 Rheumatoid arthritis location: multiple sites Rheumatoid factor presence: with rheumatoid factor Sepsis A41.9
[2022-07-21 10:56] LABS: Glucose Point of Care 211 mg/dL (70-110)
[2022-07-21] MEDS: warfarin 5 mg Tablet 7.5 MG PO (15:36)
[2022-07-21] MEDS: ondansetron 2 mg/ML SDV 2 mL 4 MG IVP (16:26)
[2022-07-21 16:40] LABS: Glucose Point of Care 168 mg/dL (70-110)
[2022-07-21] MEDS: dexamethasone 10 mg/mL INJ 6 MG IVP (17:40)
[2022-07-21] MEDS: remdesivir 100 MG in sodium chloride 0.9% (100 ml) 80 ML IV (18:32)
[2022-07-21] MEDS: insulin glargine 100 units/1 mL 20 UNIT SUBCUT (20:57)
[2022-07-21] MEDS: morphine IR 15 mg Tablet PO (20:59)
[2022-07-21 21:23] LABS: Glucose Point of Care 150 mg/dL (70-110)
[2022-07-22] VITALS (7 sets, daily range): BP systolic 119–135; BP diastolic 77–83; PULSE 83–102; RESP 16–18; TEMP 35.7–36.4; O2SAT 93–98
[2022-07-22 02:45] LABS: Basophils # 0.1 10^3/uL (0.0-0.1); Basophils % 0.3 %; Eosinophils % 0.1 %; Hematocrit 31.4 % (42.0-52.0); Hemoglobin 9.7 g/dL (11.7-16.6); Lymphocytes % 5.1 %; Mean Corpuscular HGB Conc 30.9 g/dL (30.0-36.0); Mean Corpuscular Hemoglobin 17.8 pg (28.0-34.0); Mean Corpuscular Volume 57.6 fl (80-94); Monocytes # 0.7 10^3/uL (0.2-0.9); Monocytes % 3.6 %; Neutrophils # 17.74 10^3/uL (1.8-7.7); Neutrophils % 89.1 %; Nucleated Red Blood Cells % 0 %; Platelet Count 163 10^3/cmm (130-400); Positive M 1; Red Blood Count 5.45 10^6/uL (4.1-5.3); Red Cell Distribution Width 19.3 % (12.1-15.1); White Blood Count 19.9 10^3/uL (4.0-10.0)
[2022-07-22 02:58] LABS: INR 1.44 (0.8-1.2)
[2022-07-22 03:08] LABS: Blood Urea Nitrogen 32 mg/dL (8-23); Calcium 8.5 mg/dL (8.5-10.5); Carbon Dioxide 28 mmol/L (22-29); Chloride 101 mmol/L (98-107); Glomerular Filtration Rate 74.3 mL/min (90-130); Glucose 108 mg/dL (65-115); Osmolality Calculated 293 mOsm/kg (285-295); Sodium 138 mmol/L (136-145)
[2022-07-22] MEDS: ipratropium-albuterol 3 mL Neb INHALATION ×2 (03:10→08:41)
[2022-07-22] MEDS: dilTIAZem ER (24HR) 120 mg Capsule PO (04:07)
[2022-07-22] MEDS: vancomycin 1,000 MG in sodium chloride 0.9% 250 ML 250 MG IV (04:53)
[2022-07-22] MEDS: tamsulosin 0.4 mg Capsule PO (05:44)
--- NOTE | 2022-07-22 05:56 | PC.NURSE ---
Patient's oxygen saturation has been upper 90s on 2 liters NC. Patient titrated to room air. Patient on continuous pulse ox and currently 90s on room air. Will monitor.
[2022-07-22 07:36] LABS: Glucose Point of Care 177 mg/dL (70-110)
[2022-07-22] MEDS: insulin glargine 100 units/1 mL 40 UNIT SUBCUT (08:43)
[2022-07-22] MEDS: insulin lispro 100 unit/1 mL SUBCUT ×2 (08:43→11:31)
[2022-07-22] MEDS: carvedilol 6.25 mg Tablet PO (08:44)
[2022-07-22] MEDS: FUROsemide 10 mg/mL SDV 4mL 40 MG IVP (08:44)
[2022-07-22] MEDS: sennosides-docusate Tablet 1 TAB PO (08:44)
--- NOTE | 2022-07-22 11:19 | P.DS_ITS ---
Discharge Providers Date of Admission: 07/16/22 11:06 Date of Discharge: July 22, 2022 Attending Provider at Admission: Jenn Ocsar MD Attending Provider at Discharge: Elian Buitrago Primary Care Provider: Faustina Gonzalez NP Diagnoses at Discharge Discharge Diagnosis (1) Respiratory failure with hypoxia: Status: Acute (2) COVID-19: Status: Acute (3) Recurrent UTI: Status: Chronic Permanent problem details: Multidrug-resistant organisms (4) Restrictive lung disease: Status: Chronic (5) Dementia: Status: Chronic (6) Calculus of prostatic fossa: Status: Chronic (7) Renal calculi: Status: Chronic (8) Endocarditis: Status: Chronic Permanent problem details: history of chronic viridans endocarditis, 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 (9) Shortness of breath: Status: Chronic (10) Chronic use of steroids: Status: Chronic (11) Rheumatoid arthritis: Status: Chronic Qualifiers: Rheumatoid arthritis location: multiple sites Rheumatoid factor presence: with rheumatoid factor Qualified Code(s): M05.79 - Rheumatoid arthritis with rheumatoid factor of multiple sites without organ or systems involvement (12) Sepsis: Status: Acute Reason for Visit Reason for Visit: Throwing up, pain in abd, chills Hospital Course Hospital Course Pleasant 66-year-old gentleman with 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 Follows with infectious disease specialist. UTI is usually complicated by encephalopathy and confusion, was admitted initially on 07/13 received treatment for sepsis, septic shock, transiently requiring pressors, received stress dose steroids returned to the hospital 07/16 due to right-sided flank pain, fever, chills, malaise. With complicated urinary tract infection with suspected pyelonephritis, with also noted complex left kidney mid zone 4.9 x 4.[address], confirmed also by ultrasound, could represent a blood clot but neoplasm not excluded. In addition to ESBL Klebsiella pneumonia growing from urine from original culture on 07/13 also with Klebsiella pneumonia bacteremia. Treated with Primaxin in the hospital, blood cultures were repeated and negative. Midline catheter was placed, and he will complete additional 11 days of therapy with ertapenem at discharge at residential facility, subsequently as per infectious disease recommendation fosfomycin dose will also be increased to 3 g every 48 hours. He is asked to follow-up with infectious disease, as well as follow-up with urology with regards to complex right kidney cyst, malignancy not excluded, and recurrent UTIs. During hospitalization also treated with vancomycin due to abdominal wall cellulitis. This is largely improved, although does have intertrigo as well, and so at discharge we will continue with the nystatin cream. Acute encephalopathy during this admission associated with the complicated UTI was noted as well, gradually improved. He is currently much more lucid, and subjectively is feeling better. He is looking forward to continuing rehabilitation. On arrangements for rehabilitation on COVID screening test he tested positive, although was remaining at baseline oxygenation, without any cough or other COVID symptoms, on 07/20 did have an episode of severe dyspnea, worsening hypoxia, bronchospasm with wheezing, diminished air entry, required transient support with BiPAP, and at that time was started on remdesivir, Decadron in case COVID-19 did contribute. He did improve quite rapidly by next day weaning down to room air, and so severe COVID-19 is less likely. He did also receive extra dose of diuretic for likely contributing to fluid overload, and continues on bumetanide currently. He has not been normally noted to be aspirating, it is unclear whether he may have had an episode of aspiration at that time although one was not observed. With chronic restrictive lung disease he was previously on 2 L of oxygen chronically, although here with improvement appears to be comfortable on room air. Of note also Coumadin previously at 7.5 mg daily was held for several days during hospitalization due to supratherapeutic INR up as high as 5.6, then resumed at 5 mg, however, INR has declined to 1.44, so 7.5 mg dose has been resumed. Please recheck INR and once therapeutic consider further dose adjustment, possibly decreasing to 6 mg to avoid supratherapeutic level. Physical Exam Const: COMMON NORMALS: alert; negative for patient oriented x3 GENERAL APPEARANCE: cooperative NUTRITIONAL APPEARANCE: obese ORIENTATION/CONSCIOUSNESS: Yes awake OTHER: Sitting up at side of bed. Much more lucid. Pleasant, conversant. Denies any complaints. He tells me that he is going to [facility] today which she is looking forward to. HENMT: COMMON NORMALS: oropharynx normal Neck/C-Spine: COMMON NORMALS: no JVD Resp: COMMON NORMALS: normal respiratory effort and clear to auscultation bilaterally AUSCULTATION: clear to auscultation bilaterally, wheezes and diminished lung sounds Cardio: COMMON NORMALS: no JVD, regular rhythm, S1 normal heart sound present, S2 normal heart sound present and No murmurs present (Cardio) RHYTHM: regular rhythm HEART SOUNDS: S1 normal heart sound present and S2 normal heart sound present GI: COMMON NORMALS: Normal to inspection, nondistended, normoactive bowel sounds present, Soft to palpation and non-tender PALPATION: Yes Soft to palpation Extremity: COMMON NORMALS: no joint enlargement and no pedal edema Neuro: COMMON NORMALS: moves all extremities; negative for patient oriented x3 SENSORIUM/ORIENTATION: Yes alert Skin: OTHER: Intertrigo under pannus Urinary Catheter Management: Arriola: Cath Placed During This Visit: yes, but has since been removed by the nurse Reason for Continuing Indwelling Catheter: Decision to DC Catheter Urinary Catheter Date of Insertion: 07/20/22 Urinary Catheter Time of Insertion: 17:44 Date Urinary Catheter Removed: 07/22/22 Time Urinary Catheter Discontinued: 10:54 Discharge Data Studies Completed and Pending Completed Studies During Hospitalization Category Date Time Status CT kidney stone [id number] Stat Cat Scan 07/16/22 07:54 Completed CXRP [XR chest 1V portable [id number]] Stat Exams 07/20/22 17:38 Completed XR chest 1V portable [id number] Routine Exams 07/21/22 06:00 Completed XR chest 1V portable [id number] Stat Exams 07/16/22 07:55 Completed US renal BI* [id number] Routine Ultrasound 07/16/22 18:09 Completed US venous duplex lower extremity bilat [CV venous Ultrasound 07/18/22 08:47 [place] [id number]] Routine Pending at discharge Category Date Time Status Basic Metabolic Panel AM LABS Lab 07/23/22 04:00 Ordered Basic Metabolic Panel AM LABS Lab 07/24/22 04:00 Ordered Complete Blood Count w/Auto AM LABS Lab 07/23/22 04:00 Ordered Complete Blood Count w/Auto AM LABS Lab 07/24/22 04:00 Ordered Vancomycin Trough Timed Lab 07/22/22 21:00 Ordered Radiology Impressions Abdomen/Pelvis CT 07/16/22 07:54 IMPRESSION: 1. [id number] anterior abdominal wall subcutaneous fat stranding with some skin thickening anteriorly. Recommend correlation with clinical findings of cellulitis. 2. Unchanged complex left kidney mid zone 4.9 x 4.8 cm cyst. Recommend sonography for further assessment. The unchanged multiple bilateral intrarenal calculi, as noted above. No hydronephrosis, ureterectasis or ureteral calculi. 3. Bladder not well distended with relative mild wall prominence. Some air seen in the bladder. Mildly enlarged prostate. 4. Unchanged gallstones. Renal Ultrasound 07/16/22 18:09 IMPRESSION: 1. 4.9 cm complicated cyst in the left kidney with a filling defect. This could represent a blood clot but neoplasm is not excluded. Follow-up with dedicated renal CT or MRI without and with IV contrast is recommended. 2. Septated or clustered cyst in the right kidney with layering milk of calcium. Chest X-Ray 07/21/22 06:00 IMPRESSION: Persistent pulmonary edema with small left pleural effusion. Pneumonia should be excluded clinically. Laboratory Results WBC 19.9 10^3/uL (4.0-10.0) H 07/22/22 02:08 RBC 5.45 10^6/uL (4.1-5.3) H 07/22/22 02:08 Hgb 9.7 g/dL (11.7-16.6) L 07/22/22 02:08 Hct 31.4 % (42.0-52.0) L 07/22/22 02:08 MCV 57.6 fl (80-94) L 07/22/22 02:08 MCH 17.8 pg (28.0-34.0) L 07/22/22 02:08 MCHC 30.9 g/dL (30.0-36.0) D 07/22/22 02:08 RDW 19.3 % (12.1-15.1) H 07/22/22 02:08 Plt Count 163 10^3/cmm (130-400) 07/22/22 02:08 MPV Not Reportable 07/22/22 02:08 Neut % (Auto) 89.1 % 07/22/22 02:08 Lymph % (Auto) 5.1 % 07/22/22 02:08 [place] % (Auto) 3.6 % 07/22/22 02:08 Eos % (Auto) 0.1 % 07/22/22 02:08 Baso % (Auto) 0.3 % 07/22/22 02:08 Neut # (Auto) 17.74 10^3/uL (1.8-7.7) H 07/22/22 02:08 Lymph # (Auto) 1.0 10^3/uL (0.8-4.8) 07/22/22 02:08 [place] # (Auto) 0.7 10^3/uL (0.2-0.9) 07/22/22 02:08 Eos # (Auto) 0.0 10^3/uL (0.0-0.8) 07/22/22 02:08 Baso # (Auto) 0.1 10^3/uL (0.0-0.1) 07/22/22 02:08 Nucleated RBC % (auto) 0 % 07/22/22 02:08 Nucleated RBCs # 0.0 /100WBC 07/22/22 02:08 PT 17.80 SECONDS (12.1-14.9) H 07/22/22 02:08 INR 1.44 (0.8-1.2) H 07/22/22 02:08 APTT 50.8 SECONDS (23.9-36.7) H 07/18/22 04:24 Fibrinogen 661 mg/dL (174-498) H 07/18/22 04:24 Fibrin Degrad Products Pos, 10-40 ug/mL (NEG) H 07/18/22 04:24 D-Dimer 15.11 ug/mIFEU (0-0.59) H 07/18/22 04:24 Specimen Type Arterial 07/20/22 17:50 Sample Site Brachial, left 07/20/22 17:50 ABG pH 7.40 (7.35-7.45) 07/20/22 17:50 ABG pCO2 37.0 mmHg (35-45) 07/20/22 17:50 ABG pO2 172.0 mmHg (80.0-100.0) H 07/20/22 17:50 ABG HCO3 22.9 mmol/L (22-26) 07/20/22 17:50 ABG O2 Saturation 99.9 07/20/22 17:50 ABG Base Excess -1.6 mmol/L (-2.0-2.0) 07/20/22 17:50 Matteo Test N/a 07/20/22 17:50 A-a O2 Gradient 17.7 mmHg (5-10) H 07/20/22 17:50 Hematocrit 32.0 % (42-52) L 07/20/22 17:50 Hgb O2 Saturation 98.1 % (95-100) 07/20/22 17:50 Carboxyhemoglobin 0.8 %THgb (0.4-20.1) 07/20/22 17:50 Methemoglobin 1.0 % (0.4-1.5) 07/20/22 17:50 Total Hemoglobin 10.4 g/dL (14-18) L 07/20/22 17:50 Sodium 137.0 mmol/L (131-143) 07/20/22 17:50 Potassium 4.1 mmol/L (3.5-5.0) 07/20/22 17:50 Glucose 117.0 mg/dL (70-115) H 07/20/22 17:50 Ionized Calcium 1.3 mmol/L (1.1-1.4) 07/20/22 17:50 O2 Delivery Device Bipap 07/20/22 17:50 FiO2 50.0 % 07/20/22 17:50 Supervisor Accounts Receivable ID Hinja 07/20/22 17:50 Sodium 138 mmol/L (136-145) 07/22/22 02:08 Potassium 4.0 mmol/L (3.5-5.1) 07/22/22 02:08 Chloride 101 mmol/L (98-107) 07/22/22 02:08 Carbon Dioxide 28 mmol/L (22-29) 07/22/22 02:08 Anion Gap 13.0 (5-19) 07/22/22 02:08 BUN 32 mg/dL (8-23) H 07/22/22 02:08 Creatinine 1.0 mg/dL (0.7-1.2) 07/22/22 02:08 GFR Calculation 74.3 mL/min (90-130) L 07/22/22 02:08 Glucose 108 mg/dL (65-115) 07/22/22 02:08 POC Glucose 177 mg/dL (70-110) H 07/22/22 07:27 Calculated Osmolality 293 mOsm/kg (285-295) 07/22/22 02:08 Lactic Acid 3.4 mmol/L (0.5-2.2) H 07/16/22 08:01 Lactic Acid (Sepsis) 2.1 mmol/L (0.5-2.2) 07/16/22 11:31 Lactate 1.8 mmol/L (0.5-2.2) 07/17/22 02:44 Calcium 8.5 mg/dL (8.5-10.5) 07/22/22 02:08 Magnesium 2.0 mg/dL (1.7-2.3) 07/18/22 04:24 Total Bilirubin 0.7 mg/dL (0.15-1.2) 07/17/22 02:44 AST 20 U/L (0-40) 07/17/22 02:44 ALT 13 U/L (0-41) 07/17/22 02:44 Alkaline Phosphatase 61 U/L (40-130) 07/17/22 02:44 C-Reactive Protein 199.8 mg/L (0.0-4.9) H 07/18/22 04:24 Total Protein 5.1 g/dL (6.6-8.7) L 07/17/22 02:44 Albumin 2.5 g/dL (3.5-5.2) L 07/17/22 02:44 Globulin 2.6 g/dL (1.3-4.6) 07/17/22 02:44 Lipase 27 U/L (13-60) 07/16/22 08:01 Procalcitonin 0.60 ng/mL (0-0.5) H 07/18/22 04:24 Urine Color Yellow (Yellow) 07/16/22 09:39 Urine Appearance Sl hazy (CLEAR) 07/16/22 09:39 Urine pH 5 (5-7) 07/16/22 09:39 Ur Specific [place] 1.010 (1.005-1.030) 07/16/22 09:39 Urine Protein Trace (Negative) 07/16/22 09:39 Urine Glucose (UA) Norm (Normal) 07/16/22 09:39 Urine Ketones 1+ (Negative) H 07/16/22 09:39 Urine Blood 3+ (Negative) H 07/16/22 09:39 Urine Nitrate Negative (Negative) 07/16/22 09:39 Urine Bilirubin Neg (Negative) 07/16/22 09:39 Urine Urobilinogen Norm mg/dL (Negative) 07/16/22 09:39 Ur Leukocyte Esterase 2+ (Negative) H 07/16/22 09:39 Urine RBC 40-50 /hpf (0-2) H 07/16/22 09:39 Urine WBC 25-40 /hpf (0-5) H 07/16/22 09:39 Ur Squamous Epith Cells 0-4 /hpf (0-5) H 07/16/22 09:39 Amorphous Sediment Not Reportable 07/16/22 09:39 Urine Bacteria 2+ /hpf (NONE) H 07/16/22 09:39 Vancomycin Trough 19.0 ug/mL (10-15) H 07/22/22 02:08 SARS-CoV-2 Ag (Rapid) Positive (Negative) H 07/19/22 12:10 Vitals Last Vital Signs Temp 96.3 F L 07/22/22 08:00 Pulse 91 07/22/22 08:41 Resp 18 07/22/22 08:41 BP 135/82 07/22/22 08:00 Pulse Ox 97 07/22/22 08:41 O2 Del Method 07/22/22 08:41 O2 Flow Rate 2 07/22/22 04:46 FiO2 2 07/21/22 11:40 Discharge Plan Discharge Patient Disposition: Xfer SNF Condition: Stable Prescriptions: New metoprolol tartrate 25 mg tablet 25 mg PO BID Qty: 90 0RF ertapenem 1 gram recon soln 1 g IV DAILY 11 Days Qty: 11 0RF nystatin 100,000 unit/gram cream 1 applic topical BID Qty: 30 0RF Rx Instructions: Intertrigo under pannus amoxicillin 500 mg capsule 500 mg PO BID Qty: 60 3RF Continued tamsulosin 0.4 mg capsule 0.4 mg PO DAILY@06 citalopram [Celexa] 10 mg tablet 10 mg PO QAM bumetanide 2 mg tablet See Rx Instructions .ROUTE .COMPLEX Rx Instructions: 2 mg po qam and takes an additional 2mg if needed leflunomide 10 mg tablet 10 mg PO DAILY Qty: 30 3RF prednisone 5 mg tablet 7.5 mg PO QAM Qty: 45 2RF potassium chloride 20 mEq Tablet Extended Release 20 meq PO BID pantoprazole [Protonix] 40 mg Tablet,Delayed Release (Dr/Ec) 40 mg PO DAILY@06 aspirin 81 mg Tablet,Delayed Release (Dr/Ec) 81 mg PO BEDTIME insulin glargine [Lantus Solostar U-100 Insulin] 100 unit/mL (3 mL) insulin pen See Rx Instructions .ROUTE .COMPLEX Rx Instructions: 43 units in the am and 20-22 units bedtime Florajen Acidophilus 20 billion cell Capsule 20,000 mmu cells PO QPM PNV cmb#95-ferrous fumarate-FA [ Multivitamins] 28 mg iron- 800 mcg Tablet 1 tab PO DAILY@06 atorvastatin 40 mg tablet 40 mg PO DAILY@19 diltiazem HCl 120 mg capsule,extended release 24hr 120 mg PO DAILY@06 hydroxyzine pamoate 25 mg capsule 25 mg PO BEDTIME lisinopril 2.5 mg Tablet 2.5 mg PO DAILY PRN (Reason: blood pressure over 130/80) Qty: 0 acetaminophen 500 mg Tablet 500 mg PO Q6H PRN (Reason: Pain) ascorbic acid (vitamin C) [Vitamin C] 500 mg Tablet 500 mg PO QAM warfarin 7.5 mg tablet 7.5 mg PO QPM nitroglycerin [Nitrostat] 0.4 mg Tablet, Sublingual 0.4 mg SUBLINGUAL Q5M PRN (Reason: Chest Pain) Rx Instructions: do not exceed 3 doses per episode Changed fosfomycin tromethamine 3 gram packet 1 packet PO Q48H 90 Days Qty: 45 6RF Discontinued carvedilol 6.25 mg tablet 6.25 mg PO BID amoxicillin-pot clavulanate 875-125 mg tablet 1 tab PO BID Qty: 28 0RF Discharge Orders: Discharge Order (Routine); Ordered 07/22/22 Ordered By: Elian Buitrago Referrals: [facility] [Other] [facility] [Provider Group] - 2 weeks Faustina Gonzalez NP [Primary Care Provider] - 4-7 days Billy Berkowitz MD [Physician] - 2 weeks (Dr Berkowitz office will call with your followup appointment.) Discharge Diet: Cardiac and Diabetic Discharge Activity: Increase activity as tolerated and As per PT/OT instructions Patient Instructions: Metoprolol (By mouth), Nystatin (On the skin), Amoxicillin (By mouth), Ertapenem (By injection) Activity Restrictions/Additional Instructions: Please complete 2 weeks antibiotic course with ertapenem due to ESBL pyelonephritis, as well as ESBL bacteremia. Subsequently increased fosfomycin frequency to every 48 hours instead of 72 hours. Follow-up with infectious disease. Please recheck INR in 3 days. Adjust warfarin dose accordingly to target INR 2- 3. Warfarin was held several days due to supratherapeutic INR while in the hospital up to 5.6 while on 7.5 mg warfarin. Then restarted, but INR has been declining. Currently restarted at a higher dose 7.5 mg, however, once therapeutic, consider decreasing dose to 6 mg. Monitor heart rates and blood pressures twice daily for atrial fibrillation. Carvedilol was changed to metoprolol for better rate control. Continue follow-up with urology regarding complex kidney cyst. Discharge Attestations Time Spent in Discharge Care*: greater than 30 min Status at Discharge: Cognitive status at discharge: cognitively intact , Behavioral status at discharge: cooperative , Quality Metrics Clinical Quality Measures [ No reported AMI, CVA or VTE this stay] Coding Level of Care Code Acute [facility] note Diagnoses Respiratory failure with hypoxia J96.91 COVID-19 U07.1 Recurrent UTI N39.0 Restrictive lung disease J98.4 Dementia F03.90 Calculus of prostatic fossa N42.0 Renal calculi N20.0 Endocarditis I38 Shortness of breath R06.02 Chronic use of steroids Rheumatoid arthritis M05.79 Rheumatoid arthritis location: multiple sites Rheumatoid factor presence: with rheumatoid factor Sepsis A41.9
[2022-07-22 11:36] LABS: Glucose Point of Care 175 mg/dL (70-110)
== END 2022-07-22 13:37 | disposition skilled nursing facility (03) | DRG 871 ==
LOC: ER 09:28 → MEDSURG 11:48
PROVIDERS: Admitting Provider Internal Medicine; Emergency Provider Family Medicine; PCP Nurse Practitioner Family; Visit Provider Internal Medicine
DX: A41.9 Sepsis, unspecified organism (principal); G93.41 Metabolic encephalopathy; U07.1 COVID-19; J96.01 Acute respiratory failure with hypoxia; N10 Acute pyelonephritis; L03.311 Cellulitis of abdominal wall; Z16.12 Extended spectrum beta lactamase (ESBL) resistance; I38 Endocarditis, valve unspecified; D84.821 Immunodeficiency due to drugs; N28.1 Cyst of kidney, acquired; Z87.440 Personal history of urinary (tract) infections; Z79.82 Long term (current) use of aspirin; Z79.01 Long term (current) use of anticoagulants; B96.1 Klebsiella pneumoniae [K. pneumoniae] as the cause of diseases classified elsewhere; J98.4 Other disorders of lung; M05.79 Rheumatoid arthritis with rheumatoid factor of multiple sites without organ or systems involvement; Z79.52 Long term (current) use of systemic steroids; Z79.2 Long term (current) use of antibiotics; F03.90 Unspecified dementia, unspecified severity, without behavioral disturbance, psychotic disturbance, mood disturbance, and anxiety; Z95.2 Presence of prosthetic heart valve; I48.91 Unspecified atrial fibrillation; N40.0 Benign prostatic hyperplasia without lower urinary tract symptoms; K80.20 Calculus of gallbladder without cholecystitis without obstruction; N20.0 Calculus of kidney; Z87.442 Personal history of urinary calculi; Z99.81 Dependence on supplemental oxygen; D56.9 Thalassemia, unspecified; E11.9 Type 2 diabetes mellitus without complications; Z79.4 Long term (current) use of insulin; Z87.891 Personal history of nicotine dependence; I50.9 Heart failure, unspecified; I11.0 Hypertensive heart disease with heart failure; E66.9 Obesity, unspecified; Z68.38 Body mass index [BMI] 38.0-38.9, adult; G47.33 Obstructive sleep apnea (adult) (pediatric)
CPT/HCPCS: 36415; 36416; 36569; 36600; 51702; 71045; 74176; 76770; 80048; 80051; 80053; 80202; 81001; 82330; 82805; 82962; 83605; 83690; 83735; 84145; 85025; 85362; 85378; 85384; 85610; 85730; 86140; 87040; 87086; 87426; 93970; 94640; 94660; 96365; 96372; 97110; 97116; 97162; 97167; 97530; 97535; 99285; C1751; J0743; J1100; J1335; J1815; J1940; J2405; J3370; J3490; J7030; J7050; J7512

== ENCOUNTER 2022-07-24 16:05 | Emergency (ER) | payer MEDICARE, OTHER, SELFPAY ==
--- NOTE | 2022-07-24 16:07 | W.ED.GENADLT ---
HPI - General Adult General: Chief complaint: General Medical Stated complaint: BILATERAL LOWER EXT SWELLING Time Seen by Provider: 07/24/22 16:06 Limitations: other (dementia) History of Present Illness: Mr. Loyd is a 66-year-old gentleman with complex past medical history including dementia, restrictive lung disease, nephrolithiasis, recurrent UTI, history of TAVR with complicated by endocarditis, recent hospitalization for septic shock presenting to the emergency department for concern of kidney stones. The patient himself is somewhat poor historian. He reports starting today having bilateral back pain. Moderate intensity and sharp. Denies urinary symptoms or fevers. Staff at his group home was concerned more about lower extremity edema. He reports compliance with his medication regimen including anticoagulation. No other specific changes in health, exacerbating, or alleviating factors identified. 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 Essential hypertension Gout High risk medication use arava and chronic steroids 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 Hx of [place] spotted fever Ischemic cardiomyopathy Left ventricular hypertrophy Obesity AJAY (obstructive sleep apnea) Pulmonary HTN Pyelonephritis of right kidney Recurrent UTI Multidrug-resistant organisms Renal calculi Restrictive lung disease Rheumatoid arthritis Skin lesion Thalassemia Surgical History H/O lithotripsy S/P TAVR (transcatheter aortic valve replacement) (~2018) Family History Mother Stroke Father Myocardial infarction Other CAD (coronary artery disease) Chronic kidney disease (CKD) Diabetes Hypertension Social History Smoking and tobacco status: former smoker Quit status (tobacco): has quit using tobacco Year quit tobacco: 2019 - Chewing Tobacco Former quit date comment: Hx of 1/2 can x 50 Years Second hand smoke exposure: No Alcohol intake: former Lives independently: No Household members: spouse Marital status: Current occupational status: retired and disabled History of recent travel: No Current gender identity: Male Physical Exam Const: COMMON NORMALS: alert GENERAL APPEARANCE: cooperative, well developed and ill appearing (chronically) HENMT: COMMON NORMALS: normocephalic and atraumatic HEAD & SCALP: normocephalic and atraumatic Eye: COMMON NORMALS: conjunctivae normal CONJUNCTIVA: Yes conjunctivae normal SCLERA: sclerae normal Neck/C-Spine: COMMON NORMALS: supple GENERAL: Yes trachea midline Resp: COMMON NORMALS: clear to auscultation bilaterally EFFORT & INSPECTION: Yes able to speak in complete sentences AUSCULTATION: clear to auscultation bilaterally Cardio: RATE: tachycardic RHYTHM: abnormal rhythm GI: COMMON NORMALS: Soft to palpation PALPATION: Yes Soft to palpation and No Tenderness to palpation present (GI) Extremity: GENERAL: Yes normal exam except as noted and Yes edema Neuro: COMMON NORMALS: moves all extremities SENSORIUM/ORIENTATION: Yes alert and Yes Orientation impaired Course Vital Signs: Vital signs: Vital Signs Temperature 97.4 F L 07/24/22 16:26 Pulse Rate 102 H 07/24/22 22:29 Respiratory Rate 16 07/24/22 22:29 Blood Pressure 135/92 07/24/22 16:26 Pulse Oximetry 93 07/24/22 22:29 Oxygen Delivery Me thod 07/24/22 19:20 [facility] - General Adult Medical Decision Making 66-year-old gentleman with complex history presenting with generalized concern. Labs notable for mild leukocytosis, microcytic anemia. Metabolic panel similar to prior. Delta troponin negative. BNP mildly increased from prior. Chest x-ray with likely minimal evidence of effusion. CT head negative for acute intracranial pathology but CT abdomen pelvis as noted. There is no evidence of cellulitis corresponding with edema of the panniculus on clinical exam. Upon reassessment patient improved with rest mental status and comfortable with plan for outpatient treatment as he is not requiring supplemental oxygen and feels pretty much baseline. Plan to increase Bumex. Strict return precautions given. Close follow-up discussed. Medical Records I reviewed the patient's medical records. Lab Data I reviewed the patient's lab results. : 07/24/22 17:33 07/24/22 17:33 Radiology Impressions Chest X-Ray 07/24/22 16:20 IMPRESSION: Mild left basilar atelectasis and/or infiltrate and/or effusion. Abdomen/Pelvis CT 07/24/22 17:48 IMPRESSION: 1. Nonobstructing bilateral renal calculi measuring up to 3 mm in diameter noted. No hydronephrosis. No ureteral calculi. No obstructive uropathy. 2. There is a 6 cm heterogeneous exophytic lesion arising from the lateral aspect of the mid left kidney. This has the appearance of a renal cyst with intracystic hemorrhage. Presence of this intracystic hemorrhage is a new finding when compared to CT abdomen dated 07/16/2022. Presence or absence of active bleeding cannot be assessed on this noncontrast study. 3. There are calculi present in the gallbladder. There are no secondary signs of cholecystitis. 4. Nonspecific subcutaneous edema and skin thickening of the abdominal wall panniculus surrounding the umbilicus. 5. Mild irregularity of the surface of the liver concerning for hepatic cirrhosis. No focal liver mass demonstrated. 6. Diverticulosis of the colon. No evidence of acute diverticulitis. 7. 7 cm ventral abdominal wall hernia, containing only fat. large. Nonspecific subcutaneous edema and skin thickening of the abdominal wall panniculus surrounding the umbilicus. 8. Calcified granulomas are noted in the spleen. COMMENTS: Consistent with the [employer]'s Incidental Findings Committee white paper (J Am Frances Radiol 2018): Any incidental renal lesion less than 1 cm or classified as too small to characterize, or any incidental cystic renal lesion characterized as simple-appearing, is likely benign. No follow-up imaging is recommended for these lesions per consensus recommendations based on imaging criteria. Head CT 07/24/22 17:48 IMPRESSION: No acute intracranial findings. Laboratory Results WBC 13.4 10^3/uL (4.0-10.0) H 07/24/22 17:33 RBC 6.06 10^6/uL (4.1-5.3) H 07/24/22 17:33 Hgb 10.6 g/dL (11.7-16.6) L 07/24/22 17:33 Hct 35.5 % (42.0-52.0) L 07/24/22 17:33 MCV 58.6 fl (80-94) L 07/24/22 17:33 MCH 17.5 pg (28.0-34.0) L 07/24/22 17:33 MCHC 29.9 g/dL (30.0-36.0) L 07/24/22 17:33 RDW 19.9 % (12.1-15.1) H 07/24/22 17:33 Plt Count 201 10^3/cmm (130-400) 07/24/22 17: MPV 9.1 fL (7.4-10.4) 07/24/22 17:33 Neut % (Auto) 79.7 % 07/24/22 17: Lymph % (Auto) 10.9 % 07/24/22 17:33 [place] % (Auto) 5.9 % 07/24/22 17: Eos % (Auto) 1.0 % 07/24/22 17: Baso % (Auto) 0.3 % 07/24/22 17: Neut # (Auto) 10.65 10^3/uL (1.8-7.7) H 07/24/22 17:33 Lymph # (Auto) 1.5 10^3/uL (0.8-4.8) 07/24/22 17:33 [place] # (Auto) 0.8 10^3/uL (0.2-0.9) 07/24/22 17:33 Eos # (Auto) 0.1 10^3/uL (0.0-0.8) 07/24/22 17:33 Baso # (Auto) 0.0 10^3/uL (0.0-0.1) 07/24/22 17:33 Nucleated RBC % (auto) 0 % 07/24/22 17: Nucleated RBCs # 0.0 /100WBC 07/24/22 17:33 Sodium 138 mmol/L (136-145) 07/24/22 17:33 Potassium 3.5 mmol/L (3.5-5.1) 07/24/22 17:33 Chloride 99 mmol/L (98-107) 07/24/22 17:33 Carbon Dioxide 30 mmol/L (22-29) H 07/24/22 17:33 Anion Gap 12.5 (5-19) 07/24/22 17:33 BUN 28 mg/dL (8-23) H 07/24/22 17:33 Creatinine 0.8 mg/dL (0.7-1.2) 07/24/22 17:33 GFR Calculation 96.1 mL/min (90-130) 07/24/22 17:33 Glucose 145 mg/dL (65-115) H 07/24/22 17:33 Calculated Osmolality 294 mOsm/kg (285-295) 07/24/22 17:33 Calcium 8.5 mg/dL (8.5-10.5) 07/24/22 17:33 Magnesium 1.6 mg/dL (1.7-2.3) L 07/24/22 17:33 Total Bilirubin 0.6 mg/dL (0.15-1.2) 07/24/22 17:33 AST 15 U/L (0-40) 07/24/22 17:33 ALT 15 U/L (0-41) 07/24/22 17:33 Alkaline Phosphatase 100 U/L (40-130) 07/24/22 17:33 Troponin T Baseline 20 ng/L (0-15) H 07/24/22 17:33 Troponin T 120 Minute 19.85 ng/L (0-15) H 07/24/22 19:50 Delta Troponin T -0.15 ABS# (0-10) L 07/24/22 19:50 NT-Pro-B Natriuret Pep 2528 pg/mL (0-125) H 07/24/22 17:33 Total Protein 5.6 g/dL (6.6-8.7) L 07/24/22 17:33 Albumin 2.5 g/dL (3.5-5.2) L 07/24/22 17:33 Globulin 3.1 g/dL (1.3-4.6) 07/24/22 17:33 Urine Color Yellow (Yellow) 07/24/22 19:10 Urine Appearance Clear (CLEAR) 07/24/22 19:10 Urine pH 6 (5-7) 07/24/22 19:10 Ur Specific [place] 1.010 (1.005-1.030) 07/24/22 19:10 Urine Protein Neg (Negative) 07/24/22 19:10 Urine Glucose (UA) Norm (Normal) 07/24/22 19:10 Urine Ketones Negative (Negative) 07/24/22 19:10 Urine Blood 3+ (Negative) H 07/24/22 19:10 Urine Nitrate Negative (Negative) 07/24/22 19:10 Urine Bilirubin Neg (Negative) 07/24/22 19:10 Urine Urobilinogen Neg mg/dL (Negative) 07/24/22 19:10 Ur Leukocyte Esterase 1+ (Negative) H 07/24/22 19:10 Urine RBC 5-10 /hpf (0-2) H 07/24/22 19:10 Urine WBC 5-10 /hpf (0-5) H 07/24/22 19:10 Ur Squamous Epith Cells 0-4 /hpf (0-5) H 07/24/22 19:10 Amorphous Sediment Not Reportable 07/24/22 19:10 Urine Bacteria Trace /hpf (NONE) 07/24/22 19:10 Discharge Plan Discharge Patient Disposition: [facility] Clinical Impression: Flank pain, Acute on chronic congestive heart failure Condition: Stable Discharge Orders: Discharge ED (Routine); Ordered 07/24/22 Ordered By: Deion Thompson Referrals: Faustina Gonzalez NP [Primary Care Provider] - Discharge Diet: Cardiac Discharge Activity: Increase activity as tolerated Patient Instructions: Heart Failure (ED), Leg Edema (ED) Activity Restrictions/Additional Instructions: Thank you for visiting the emergency department. You were seen and evaluated for flank pain as well as lower extremity swelling. The exact cause of your symptoms is unclear though likely has to do with your underlying heart failure. I recommend for the next 3 days taking your Bumex 2 mg twice daily and then once daily with as needed dose in the evening as previously prescribed by cardiology. Please follow-up this week with cardiology. Return to the emergency department for worsening symptoms or anything else that you are concerned about and feel needs emergency department evaluation. Coding Level of Care Code ED Senior Quality Control Inspector for John Jade
--- NOTE | 2022-07-24 16:20 | XRR_ITS ---
PROCEDURE INFORMATION: Exam: XR Chest Exam date and time: 07/24/2022 4:32 PM Age: 66 years old Clinical indication: Dyspnea; Additional info: Volume overload TECHNIQUE: Imaging protocol: Radiologic exam of the chest. Views: 1 view. COMPARISON: CR XR chest 1V portable [id number] 07/21/2022 5:40 AM FINDINGS: Lungs: Mild left basilar atelectasis and/or infiltrate and/or effusion. Pleural spaces: Unremarkable. No pleural effusion. No pneumothorax. Heart/Mediastinum: Stable endovascular aortic valve replacement. Vasculature: Calcification of the thoracic aorta and/or great vessels consistent with atherosclerotic vessel disease. Bones/joints: Unremarkable. Other findings: Patient rotation to the left. XR/XR chest 1V portable [id number] IMPRESSION: Mild left basilar atelectasis and/or infiltrate and/or effusion.
[2022-07-24 16:26] VITALS: BP 135/92; PULSE 92; RESP 16; TEMP 36.3; O2SAT 95
--- NOTE | 2022-07-24 17:22 | ECG_ITS ---
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 Measurements Intervals [place] Rate: 103 P: MA: QRS: -5 QRSD: 88 T: 180 QT: 356 QTc: 466 Interpretive Statements ATRIAL FIBRILLATION WITH RAPID VENTRICULAR RESPONSE LOW QRS VOLTAGE IN PRECORDIAL LEADS [QRS DEFLECTION < 1.0 mV IN CHEST LEADS] NONSPECIFIC T-WAVE ABNORMALITY Compared to ECG 07/13/2022 01:13:31 Low QRS voltage now present Possible ischemia no longer present T-wave abnormality still present Electronically Signed On 07-25-2022 8:29:41 CDT by Cassy Monreal M.D. [id number]
[2022-07-24 17:27] VITALS: RESP 18
[2022-07-24] MEDS: morphine 4 mg/mL SDV 1 mL IVP (17:27)
[2022-07-24 17:42] LABS: Basophils % 0.3 %; Eosinophils # 0.1 10^3/uL (0.0-0.8); Hematocrit 35.5 % (42.0-52.0); Hemoglobin 10.6 g/dL (11.7-16.6); Lymphocytes # 1.5 10^3/uL (0.8-4.8); Lymphocytes % 10.9 %; Mean Corpuscular HGB Conc 29.9 g/dL (30.0-36.0); Mean Corpuscular Hemoglobin 17.5 pg (28.0-34.0); Mean Corpuscular Volume 58.6 fl (80-94); Mean Platelet Volume 9.1 fL (7.4-10.4); Monocytes # 0.8 10^3/uL (0.2-0.9); Monocytes % 5.9 %; Neutrophils # 10.65 10^3/uL (1.8-7.7); Neutrophils % 79.7 %; Nucleated Red Blood Cells % 0 %; Platelet Count 201 10^3/cmm (130-400); Red Blood Count 6.06 10^6/uL (4.1-5.3); Red Cell Distribution Width 19.9 % (12.1-15.1); White Blood Count 13.4 10^3/uL (4.0-10.0)
--- NOTE | 2022-07-24 17:48 | CTR_ITS ---
PROCEDURE INFORMATION: Exam: CT Abdomen And Pelvis Without Contrast Exam date and time: 07/24/2022 6:35 PM Age: 66 years old Clinical indication: Abdominal pain; Flank; Right; Additional info: Flank pain, HX UTI and stones TECHNIQUE: Imaging protocol: Computed tomography of the abdomen and pelvis without contrast. Radiation optimization: All CT scans at this facility use at least one of these dose optimization techniques: automated exposure control; mA and/or kV adjustment per patient size (includes targeted exams where dose is matched to clinical indication); or iterative reconstruction. COMPARISON: CT kidney stone [id number] 07/16/2022 9:09 AM RADIATION DOSE METRICS: Total DLP (mGy-cm): 1230.89 FINDINGS: Lungs: Punctate calcified granuloma left lung base. Pleural spaces: Minimal left pleural effusion. Heart: Prosthetic aortic valve noted. Trace pericardial effusion. Liver: Mild irregularity of the surface of the liver concerning for hepatic cirrhosis. No focal liver mass demonstrated. Gallbladder and bile ducts: There are calculi present in the gallbladder. There are no secondary signs of cholecystitis. Pancreas: Unremarkable. No ductal dilation. Spleen: Calcified granulomas are noted in the spleen. No splenomegaly. Adrenal glands: The adrenal glands appear within normal limits. Kidneys and ureters: Nonobstructing bilateral renal calculi measuring up to 3 mm in diameter noted. No hydronephrosis. The ureters are unremarkable. No obstructive uropathy. There is a 6 cm heterogeneous exophytic lesion arising from the lateral aspect of the mid left kidney. This has the appearance of a renal cyst with intracystic hemorrhage. There are right-sided simple appearing renal cysts present measuring up to 4.5 cm. Stomach and bowel: No acute gastric abnormality demonstrated. The small bowel is unremarkable as demonstrated. Diverticulosis of the colon. No evidence of acute diverticulitis. Appendix: No evidence of appendicitis. Intraperitoneal space: No pneumoperitoneum. No significant fluid collection. Vasculature: The aorta is atherosclerotic. No aortic aneurysm. Lymph nodes: No pathologically enlarged lymph nodes. Urinary bladder: Unremarkable as visualized. Reproductive: Unremarkable as visualized. Bones/joints: Degenerative spine changes are noted. No acute osseous abnormality. Soft tissues: 7 cm ventral abdominal wall hernia, containing only fat. large. Nonspecific subcutaneous edema and skin thickening of the abdominal wall panniculus surrounding the umbilicus. CT/CT kidney stone [id number] IMPRESSION: 1. Nonobstructing bilateral renal calculi measuring up to 3 mm in diameter noted. No hydronephrosis. No ureteral calculi. No obstructive uropathy. 2. There is a 6 cm heterogeneous exophytic lesion arising from the lateral aspect of the mid left kidney. This has the appearance of a renal cyst with intracystic hemorrhage. Presence of this intracystic hemorrhage is a new finding when compared to CT abdomen dated 07/16/2022. Presence or absence of active bleeding cannot be assessed on this noncontrast study. 3. There are calculi present in the gallbladder. There are no secondary signs of cholecystitis. 4. Nonspecific subcutaneous edema and skin thickening of the abdominal wall panniculus surrounding the umbilicus. 5. Mild irregularity of the surface of the liver concerning for hepatic cirrhosis. No focal liver mass demonstrated. 6. Diverticulosis of the colon. No evidence of acute diverticulitis. 7. 7 cm ventral abdominal wall hernia, containing only fat. large. Nonspecific subcutaneous edema and skin thickening of the abdominal wall panniculus surrounding the umbilicus. 8. Calcified granulomas are noted in the spleen. COMMENTS: Consistent with the [place] [employer]'s Incidental Findings Committee white paper (J Am Frances Radiol 2018): Any incidental renal lesion less than 1 cm or classified as too small to characterize, or any incidental cystic renal lesion characterized as simple-appearing, is likely benign. No follow-up imaging is recommended for these lesions per consensus recommendations based on imaging criteria.
--- NOTE | 2022-07-24 17:48 | CTR_ITS ---
PROCEDURE INFORMATION: Exam: CT Head Without Contrast Exam date and time: 07/24/2022 6:33 PM Age: 66 years old Clinical indication: Altered mental status/memory loss; Confusion or disorientation; Additional info: AMS TECHNIQUE: Imaging protocol: Computed tomography of the head without contrast. Radiation optimization: All CT scans at this facility use at least one of these dose optimization techniques: automated exposure control; mA and/or kV adjustment per patient size (includes targeted exams where dose is matched to clinical indication); or iterative reconstruction. COMPARISON: CT head wo con* [id number] 07/13/2022 1:37 AM RADIATION DOSE METRICS: Total DLP (mGy-cm): 1051.38 FINDINGS: Brain: Suresh cisterna magna which is a normal variant. Severe calcified intracranial atherosclerotic vessel disease. Mild to moderate cerebral atrophy and ischemic leukoencephalopathy. Stable chronic left frontal lobe infarct with encephalomalacia. Stable chronic left parietal lobe infarct with encephalomalacia. Stable right cerebellar infarct with encephalomalacia in the PICA territory. Cerebral ventricles: No ventriculomegaly. Paranasal sinuses: Visualized sinuses are unremarkable. No fluid levels. Mastoid air cells: Visualized mastoid air cells are well aerated. Bones/joints: Unremarkable. No acute fracture. Soft tissues: Unremarkable. CT/CT head wo con* [id number] IMPRESSION: No acute intracranial findings.
[2022-07-24 18:08] LABS: Troponin(5th) Baseline 20 ng/L (0-15)
[2022-07-24 18:17] LABS: Alanine Aminotransferase 15 U/L (0-41); Albumin Level 2.5 g/dL (3.5-5.2); Alkaline Phosphatase 100 U/L (40-130); Anion Gap 12.5 (5-19); Aspartate Amino Transferase 15 U/L (0-40); Blood Urea Nitrogen 28 mg/dL (8-23); Calcium 8.5 mg/dL (8.5-10.5); Carbon Dioxide 30 mmol/L (22-29); Chloride 99 mmol/L (98-107); Globulin 3.1 g/dL (1.3-4.6); Glomerular Filtration Rate 96.1 mL/min (90-130); Glucose 145 mg/dL (65-115); Magnesium 1.6 mg/dL (1.7-2.3); NT Pro B Type Natriuretic Pept 2528 pg/mL (0-125); Osmolality Calculated 294 mOsm/kg (285-295); Potassium 3.5 mmol/L (3.5-5.1); Sodium 138 mmol/L (136-145); Total Bilirubin 0.6 mg/dL (0.15-1.2); Total Protein 5.6 g/dL (6.6-8.7)
[2022-07-24 19:20] VITALS: PULSE 79; RESP 16; O2SAT 97
[2022-07-24 19:26] LABS: Add Urine Microscopic? YES; Bilirubin Urine Neg (Negative); Blood Urine 3+ (Negative); Glucose Urine UA Norm (Normal); Ketones Urine Negative (Negative); Leukocyte Esterase Urine 1+ (Negative); Nitrate Urine Negative (Negative); Protein Urine Neg (Negative); Urine Appearance Clear (CLEAR); Urine Color Yellow (Yellow); Urobilinogen Urine Neg (Negative); pH Urine 6 (5-7)
[2022-07-24 19:32] LABS: Add Urine Culture? Yes; Bacteria Urine TRACE /hpf; Squamous Epithelial Cell Urine 0-4 /hpf (0-5)
[2022-07-24] MEDS: bumetanide 0.25 mg/mL SDV 10 mL 2 MG IVP (20:10)
[2022-07-24 20:19] LABS: Troponin 5 2HR 19.85 ng/L (0-15)
[2022-07-24 20:21] LABS: Troponin 5 2HR Delta -0.15 ABS# (0-10)
--- NOTE | 2022-07-24 21:32 | PC.NURSE ---
report called to Jose KAPOOR at [facility]. HE states he will call local ems and arrange transport
[2022-07-24 22:29] VITALS: PULSE 102; RESP 16; O2SAT 93
== END 2022-07-24 22:34 ==
PROVIDERS: Emergency Provider Emergency Medicine; PCP Nurse Practitioner Family
DX: R10.9 Unspecified abdominal pain (principal); I11.0 Hypertensive heart disease with heart failure; I50.9 Heart failure, unspecified; Z86.73 Personal history of transient ischemic attack (TIA), and cerebral infarction without residual deficits; F03.90 Unspecified dementia, unspecified severity, without behavioral disturbance, psychotic disturbance, mood disturbance, and anxiety; E11.9 Type 2 diabetes mellitus without complications; E78.5 Hyperlipidemia, unspecified; Z87.891 Personal history of nicotine dependence
CPT/HCPCS: 36415; 70450; 71045; 74176; 80053; 81001; 83735; 83880; 84484; 85025; 87086; 93005; 96374; 96375; 99285; J2270; J3490

== ENCOUNTER 2022-10-23 01:59 | Emergency (ER) | payer MEDICARE, OTHER, SELFPAY ==
[2022-10-23 02:00] VITALS: BP 152/90; PULSE 84; RESP 25; TEMP 36.5; O2SAT 100; BMI 39.0
--- NOTE | 2022-10-23 02:04 | XRR_ITS ---
PROCEDURE INFORMATION: Exam: XR Chest Exam date and time: 10/23/2022 2:46 AM Age: 67 years old Clinical indication: Dyspnea and other: Generalized weakness; Prior surgery; Surgery date: 6+ months; Surgery type: Tavr TECHNIQUE: Imaging protocol: Radiologic exam of the chest. Views: 1 view. COMPARISON: CR (CHEST, ) 07/24/2022 4:32 PM FINDINGS: Lungs: Unremarkable. No consolidation. Pleural spaces: Unremarkable. No pleural effusion. No pneumothorax. Heart/Mediastinum: Stable endovascular aortic valve replacement. Bones/joints: Unremarkable. XR/XR chest 1V portable [id number] IMPRESSION: 1. Stable endovascular aortic valve replacement. 2. No acute findings.
--- NOTE | 2022-10-23 02:04 | ECG_ITS ---
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 Measurements Intervals [place] Rate: 79 P: 0 NC: 0 QRS: -30 QRSD: 91 T: 138 QT: 388 QTc: 446 Interpretive Statements ATRIAL FIBRILLATION BORDERLINE LEFT AXIS DEVIATION [QRS AXIS < -20] NONSPECIFIC ST & T-WAVE ABNORMALITY INTERPRETATION BASED ON A DEFAULT AGE OF 40 YEARS Compared to ECG 07/24/2022 17:22:43 No significant changes Electronically Signed On 10-23-2022 19:45:24 SHOP FIRER/FIREMAN by Ari Pettit M.D. [email or web address] [email or web address]/[id number]
--- NOTE | 2022-10-23 02:10 | W.ED.GENADLT ---
Documented by User: ALTAF Kincaid 10/23/22 02:42 HPI - General Adult General: Chief complaint: Weakness Stated complaint: WEAKNESS Time Seen by Provider: 10/23/22 02:04 History of Present Illness: 67-year-old male patient comes in today with complaints of generalized weakness. Patient has recurrent urinary tract infection and per spouse was concerned that he may have a bladder infection. Patient also has rheumatoid arthritis, diabetes mellitus, gout, chronic use of steroids, calculus of prostate, chronic anticoagulation. Review of Systems Const: Reports: fatigue PFSH ED PFSH: Medical History (Updated 10/23/22 @ 03:38 by Dale Thomas, ) Acute cystitis Altered mental status Aortic stenosis Had TAVR replacement 2017 Atrial fibrillation Bilateral renal masses CHF (congestive heart failure) EF 45 by transesophageal echo January 2019 Chronic antibiotic suppression Chronic anticoagulation coumadin Chronic urinary tract infection, suppressed Chronic use of steroids Complex renal cyst Congestive heart failure CVA (cerebral vascular accident) Dementia Diabetes Dyslipidemia Endocarditis history of chronic viridans endocarditis, 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 Essential hypertension Gout High risk medication use arava and chronic steroids 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 Hx of [place] spotted fever Ischemic cardiomyopathy Left ventricular hypertrophy Obesity AJAY (obstructive sleep apnea) Pulmonary HTN Pyelonephritis of right kidney Recurrent UTI Multidrug-resistant organisms Renal calculi Restrictive lung disease Rheumatoid arthritis Skin lesion Thalassemia Surgical History H/O lithotripsy S/P TAVR (transcatheter aortic valve replacement) (~2018) Family History Mother Stroke Father Myocardial infarction Other CAD (coronary artery disease) Chronic kidney disease (CKD) Diabetes Hypertension Social History Smoking and tobacco status: former smoker Quit status (tobacco): has quit using tobacco Year quit tobacco: 2019 - Chewing Tobacco Former quit date comment: Hx of 1/2 can x 50 Years Second hand smoke exposure: No Alcohol intake: former Lives independently: No Household members: spouse Marital status: Current occupational status: retired and disabled History of recent travel: No Current gender identity: Male Physical Exam Const: COMMON NORMALS: alert HENMT: HEAD & SCALP: normal to inspection MOUTH: moist mucous membranes abnormal Details: parched Neck/C-Spine: COMMON NORMALS: full ROM Resp: COMMON NORMALS: normal respiratory effort and clear to auscultation bilaterally AUSCULTATION: clear to auscultation bilaterally Cardio: COMMON NORMALS: regular rate and regular rhythm RATE: regular rate RHYTHM: regular rhythm GI: COMMON NORMALS: Soft to palpation PALPATION: Yes Soft to palpation OTHER: Very rotund abdomen with inguinal hernia Extremity: COMMON NORMALS: normal to inspection Neuro: SENSORIUM/ORIENTATION: Yes alert Skin: COMMON NORMALS: negative for turgor normal GENERAL SKIN EXAM: decreased turgor Course Vital Signs: Vital signs: Vital Signs Temperature 97.7 F 10/23/22 02:00 Pulse Rate 84 10/23/22 02:00 Respiratory Rate 25 H 10/23/22 02:00 Blood Pressure 152/90 10/23/22 02:00 Pulse Oximetry 100 10/23/22 02:00 Oxygen Delivery Me thod 10/23/22 02:00 MDM - General Adult Medical Decision Making Patient was brought in by EMS tonight for concerns of weakness and general malaise. Spouse believes the patient may have a urinary tract infection, patient gets frequent urinary tract infections. On exam patient has very rotund abdomen was soft nontender. Patient does have a large abdominal hernia. Bowel sounds are present. Skin turgor is poor. Oral mucosa is dry. Vital signs are normal except for some elevation of blood pressure 152 systolic. Patient recently been started on Farxiga. Differential diagnosis includes sepsis, urinary tract infection, dehydration, diabetic ketoacidosis, dementia. Patient was reviewed with Dr. Thomas who assumed care of patient at the end of my shift. Lab Data 10/23/22 02:20 10/23/22 02:20 Radiology Impressions Chest X-Ray 10/23/22 02:04 IMPRESSION: 1. Stable endovascular aortic valve replacement. 2. No acute findings. Laboratory Results WBC 8.4 10^3/uL (4.0-10.0) 10/23/22 02:20 RBC 7.18 10^6/uL (4.1-5.3) H 10/23/22 02:20 Hgb 11.9 g/dL (11.7-16.6) 10/23/22 02:20 Hct 41.8 % (42.0-52.0) L 10/23/22 02:20 MCV 58.2 fl (80-94) L 10/23/22 02:20 MCH 16.6 pg (28.0-34.0) L 10/23/22 02:20 MCHC 28.5 g/dL (30.0-36.0) L 10/23/22 02:20 RDW 20.4 % (12.1-15.1) H 10/23/22 02:20 Plt Count 314 10^3/cmm (130-400) 10/23/22 02:20 MPV Not Reportable 10/23/22 02:20 Neut % (Auto) 64.8 % 10/23/22 02:20 Lymph % (Auto) 22.6 % 10/23/22 02:20 [place]za % (Auto) 8.6 % 10/23/22 02:20 Eos % (Auto) 2.4 % 10/23/22 02:20 Baso % (Auto) 1.0 % 10/23/22 02:20 Neut # (Auto) 5.45 10^3/uL (1.8-7.7) 10/23/22 02:20 Lymph # (Auto) 1.9 10^3/uL (0.8-4.8) 10/23/22 02:20 [place] # (Auto) 0.7 10^3/uL (0.2-0.9) 10/23/22 02:20 Eos # (Auto) 0.2 10^3/uL (0.0-0.8) 10/23/22 02:20 Baso # (Auto) 0.1 10^3/uL (0.0-0.1) 10/23/22 02:20 Nucleated RBC % (auto) 0 % 10/23/22 02:20 Nucleated RBCs # 0.0 /100WBC 10/23/22 02:20 Sodium 131 mmol/L (136-145) L 10/23/22 02:20 Potassium 3.7 mmol/L (3.5-5.1) 10/23/22 02:20 Chloride 93 mmol/L (98-107) L 10/23/22 02:20 Carbon Dioxide 28 mmol/L (22-29) 10/23/22 02:20 Anion Gap 13.7 (5-19) 10/23/22 02:20 BUN 27 mg/dL (8-23) H 10/23/22 02:20 Creatinine 1.2 mg/dL (0.7-1.2) 10/23/22 02:20 GFR Calculation 60.0 mL/min (90-130) L 10/23/22 02:20 Glucose 134 mg/dL (65-115) H 10/23/22 02:20 Calculated Osmolality 279 mOsm/kg (285-295) L 10/23/22 02:20 Lactic Acid 1.4 mmol/L (0.5-2.2) 10/23/22 02:20 Calcium 9.8 mg/dL (8.5-10.5) 10/23/22 02:20 Total Bilirubin 0.5 mg/dL (0.15-1.2) 10/23/22 02:20 AST 16 U/L (0-40) 10/23/22 02:20 ALT 11 U/L (0-41) 10/23/22 02:20 Alkaline Phosphatase 107 U/L (40-130) 10/23/22 02:20 C-Reactive Protein 15.8 mg/L (0.0-4.9) H 10/23/22 02:20 Total Protein 7.2 g/dL (6.6-8.7) 10/23/22 02:20 Albumin 3.4 g/dL (3.5-5.2) L 10/23/22 02:20 Globulin 3.8 g/dL (1.3-4.6) 10/23/22 02:20 Urine Color Yellow (Yellow) 10/23/22 02:36 Urine Appearance Hazy (CLEAR) A 10/23/22 02:36 Urine pH 8 (5-7) H 10/23/22 02:36 Ur Specific [place] 1.010 (1.005-1.030) 10/23/22 02:36 Urine Protein Neg (Negative) 10/23/22 02:36 Urine Glucose (UA) 4+ (Normal) H 10/23/22 02:36 Urine Ketones Negative (Negative) 10/23/22 02:36 Urine Blood 2+ (Negative) H 10/23/22 02:36 Urine Nitrate Negative (Negative) 10/23/22 02:36 Urine Bilirubin Neg (Negative) 10/23/22 02:36 Prot Sulfosalicylic Acd Positive (Negative) 10/23/22 02:36 Urine Urobilinogen Neg mg/dL (Negative) 10/23/22 02:36 Ur Leukocyte Esterase 2+ (Negative) H 10/23/22 02:36 Urine RBC None /hpf (0-2) 10/23/22 02:36 Urine WBC Too numerous to cnt /hpf (0-5) H 10/23/22 02:36 Ur Squamous Epith Cells None /hpf (0-5) 10/23/22 02:36 Amorphous Sediment Not Reportable 10/23/22 02:36 Urine Bacteria 4+ /hpf (NONE) H 10/23/22 02:36 Influenza Type A Ag negative (Negative) 10/23/22 02:20 Influenza Type B Ag negative (Negative) 10/23/22 02:20 SARS-CoV-2 Ag (Rapid) negative (Negative) 10/23/22 02:20 Discharge Plan Discharge Patient Disposition: Home Clinical Impression: Urinary tract infection Condition: Stable Prescriptions: New amoxicillin-pot clavulanate 875-125 mg tablet 1 tab PO BID Qty: 14 0RF doxycycline hyclate 100 mg capsule 100 mg PO BID 21 Days Qty: 42 0RF Discontinued amoxicillin 500 mg capsule 500 mg PO BID Qty: 60 3RF No Action tamsulosin 0.4 mg capsule 0.4 mg PO DAILY@06 citalopram [Celexa] 10 mg tablet 10 mg PO QAM bumetanide 2 mg tablet See Rx Instructions .ROUTE .COMPLEX Rx Instructions: 2 mg po qam and takes an additional 2mg if needed leflunomide 10 mg tablet 10 mg PO DAILY Qty: 30 3RF prednisone 5 mg tablet 7.5 mg PO QAM Qty: 45 2RF potassium chloride 20 mEq Tablet Extended Release 20 meq PO BID pantoprazole [Protonix] 40 mg Tablet,Delayed Release (Dr/Ec) 40 mg PO DAILY@06 aspirin 81 mg Tablet,Delayed Release (Dr/Ec) 81 mg PO BEDTIME insulin glargine [Lantus Solostar U-100 Insulin] 100 unit/mL (3 mL) insulin pen See Rx Instructions .ROUTE .COMPLEX Rx Instructions: 43 units in the am and 20-22 units bedtime Florajen Acidophilus 20 billion cell Capsule 20,000 mmu cells PO QPM PNV cmb#95-ferrous fumarate-FA [ Multivitamins] 28 mg iron- 800 mcg Tablet 1 tab PO DAILY@06 atorvastatin 40 mg tablet 40 mg PO DAILY@19 diltiazem HCl 120 mg capsule,extended release 24hr 120 mg PO DAILY@06 hydroxyzine pamoate 25 mg capsule 25 mg PO BEDTIME lisinopril 2.5 mg Tablet 2.5 mg PO DAILY PRN (Reason: blood pressure over 130/80) Qty: 0 acetaminophen 500 mg Tablet 500 mg PO Q6H PRN (Reason: Pain) ascorbic acid (vitamin C) [Vitamin C] 500 mg Tablet 500 mg PO QAM warfarin 7.5 mg tablet 7.5 mg PO QPM nitroglycerin [Nitrostat] 0.4 mg Tablet, Sublingual 0.4 mg SUBLINGUAL Q5M PRN (Reason: Chest Pain) Rx Instructions: do not exceed 3 doses per episode fosfomycin tromethamine 3 gram packet 1 packet PO Q48H 90 Days Qty: 45 6RF metoprolol tartrate 25 mg tablet 25 mg PO BID Qty: 90 0RF nystatin 100,000 unit/gram cream 1 applic topical BID Qty: 30 0RF Rx Instructions: Intertrigo under pannus Discharge Orders: Discharge ED (Routine); Ordered 10/23/22 Ordered By: Dale Thomas Referrals: Faustina Gonzalez NP [Referring] - Patient Instructions: Urinary Tract Infection in Older Adults (ED) Activity Restrictions/Additional Instructions: Antibiotics as directed. Stay hydrated return for fever greater than 100 despite 2-3 more doses of antibiotics, worsening mental status or lethargy, worsening weakness despite treatment, any other concerning symptoms. Sign Out Sign Out Data: Patient Sign Out occurred on 10/23/22 at 12:06. Patient's care was discussed, and care was transferred from to Raymon Boyce DO. Coding Level of Care Code ED Sales Recruitment Specialist for Chg Fwd Exam Comprehensive Documented by User: Raymon Boyce DO 10/23/22 12:07 HPI - General Adult General: Chief complaint: Weakness Stated complaint: WEAKNESS Time Seen by Provider: 10/23/22 02:04 PFSH ED PFSH: Medical History (Updated 10/23/22 @ 03:38 by Dale Thomas DO) Acute cystitis Altered mental status Aortic stenosis Had TAVR replacement 2017 Atrial fibrillation Bilateral renal masses CHF (congestive heart failure) EF 45 by transesophageal echo January 2019 Chronic antibiotic suppression Chronic anticoagulation coumadin Chronic urinary tract infection, suppressed Chronic use of steroids Complex renal cyst Congestive heart failure CVA (cerebral vascular accident) Dementia Diabetes Dyslipidemia Endocarditis history of chronic viridans endocarditis, 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 Essential hypertension Gout High risk medication use arava and chronic steroids 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 Hx of [place] spotted fever Ischemic cardiomyopathy Left ventricular hypertrophy Obesity AJAY (obstructive sleep apnea) Pulmonary HTN Pyelonephritis of right kidney Recurrent UTI Multidrug-resistant organisms Renal calculi Restrictive lung disease Rheumatoid arthritis Skin lesion Thalassemia Surgical History H/O lithotripsy S/P TAVR (transcatheter aortic valve replacement) (~2018) Family History Mother Stroke Father Myocardial infarction Other CAD (coronary artery disease) Chronic kidney disease (CKD) Diabetes Hypertension Social History Smoking and tobacco status: former smoker Quit status (tobacco): has quit using tobacco Year quit tobacco: 2019 - Chewing Tobacco Former quit date comment: Hx of 1/2 can x 50 Years Second hand smoke exposure: No Alcohol intake: former Lives independently: No Household members: spouse Marital status: Current occupational status: retired and disabled History of recent travel: No Current gender identity: Male Course Vital Signs: Vital signs: Vital Signs Temperature 97.7 F 10/23/22 02:00 Pulse Rate 84 10/23/22 02:00 Respiratory Rate 25 H 10/23/22 02:00 Blood Pressure 152/90 10/23/22 02:00 Pulse Oximetry 100 10/23/22 02:00 Oxygen Delivery Me thod 10/23/22 02:00 MDM - General Adult Medical Decision Making Patient was brought in by EMS tonight for concerns of weakness and general malaise. Spouse believes the patient may have a urinary tract infection, patient gets frequent urinary tract infections. On exam patient has very rotund abdomen was soft nontender. Patient does have a large abdominal hernia. Bowel sounds are present. Skin turgor is poor. Oral mucosa is dry. Vital signs are normal except for some elevation of blood pressure 152 systolic. Patient recently been started on Farxiga. Differential diagnosis includes sepsis, urinary tract infection, dehydration, diabetic ketoacidosis, dementia. Patient was reviewed with Dr. Thomas who assumed care of patient at the end of my shift. Patient was in signout q. inadvertently received the chart I did not care for participate in his ER stay. Lab Data 10/23/22 02:20 10/23/22 02:20 Radiology Impressions Chest X-Ray 10/23/22 02:04 IMPRESSION: 1. Stable endovascular aortic valve replacement. 2. No acute findings. Laboratory Results WBC 8.4 10^3/uL (4.0-10.0) 10/23/22 02:20 RBC 7.18 10^6/uL (4.1-5.3) H 10/23/22 02:20 Hgb 11.9 g/dL (11.7-16.6) 10/23/22 02:20 Hct 41.8 % (42.0-52.0) L 10/23/22 02:20 MCV 58.2 fl (80-94) L 10/23/22 02:20 MCH 16.6 pg (28.0-34.0) L 10/23/22 02:20 MCHC 28.5 g/dL (30.0-36.0) L 10/23/22 02:20 RDW 20.4 % (12.1-15.1) H 10/23/22 02:20 Plt Count 314 10^3/cmm (130-400) 10/23/22 02:20 MPV Not Reportable 10/23/22 02:20 Neut % (Auto) 64.8 % 10/23/22 02:20 Lymph % (Auto) 22.6 % 10/23/22 02:20 [place] % (Auto) 8.6 % 10/23/22 02:20 Eos % (Auto) 2.4 % 10/23/22 02:20 Baso % (Auto) 1.0 % 10/23/22 02:20 Neut # (Auto) 5.45 10^3/uL (1.8-7.7) 10/23/22 02:20 Lymph # (Auto) 1.9 10^3/uL (0.8-4.8) 10/23/22 02:20 [place] # (Auto) 0.7 10^3/uL (0.2-0.9) 10/23/22 02:20 Eos # (Auto) 0.2 10^3/uL (0.0-0.8) 10/23/22 02:20 Baso # (Auto) 0.1 10^3/uL (0.0-0.1) 10/23/22 02:20 Nucleated RBC % (auto) 0 % 10/23/22 02:20 Nucleated RBCs # 0.0 /100WBC 10/23/22 02:20 Sodium 131 mmol/L (136-145) L 10/23/22 02:20 Potassium 3.7 mmol/L (3.5-5.1) 10/23/22 02:20 Chloride 93 mmol/L (98-107) L 10/23/22 02:20 Carbon Dioxide 28 mmol/L (22-29) 10/23/22 02:20 Anion Gap 13.7 (5-19) 10/23/22 02:20 BUN 27 mg/dL (8-23) H 10/23/22 02:20 Creatinine 1.2 mg/dL (0.7-1.2) 10/23/22 02:20 GFR Calculation 60.0 mL/min (90-130) L 10/23/22 02:20 Glucose 134 mg/dL (65-115) H 10/23/22 02:20 Calculated Osmolality 279 mOsm/kg (285-295) L 10/23/22 02:20 Lactic Acid 1.4 mmol/L (0.5-2.2) 10/23/22 02:20 Calcium 9.8 mg/dL (8.5-10.5) 10/23/22 02:20 Total Bilirubin 0.5 mg/dL (0.15-1.2) 10/23/22 02:20 AST 16 U/L (0-40) 10/23/22 02:20 ALT 11 U/L (0-41) 10/23/22 02:20 Alkaline Phosphatase 107 U/L (40-130) 10/23/22 02:20 C-Reactive Protein 15.8 mg/L (0.0-4.9) H 10/23/22 02:20 Total Protein 7.2 g/dL (6.6-8.7) 10/23/22 02:20 Albumin 3.4 g/dL (3.5-5.2) L 10/23/22 02:20 Globulin 3.8 g/dL (1.3-4.6) 10/23/22 02:20 Urine Color Yellow (Yellow) 10/23/22 02:36 Urine Appearance Hazy (CLEAR) A 10/23/22 02:36 Urine pH 8 (5-7) H 10/23/22 02:36 Ur Specific [place] 1.010 (1.005-1.030) 10/23/22 02:36 Urine Protein Neg (Negative) 10/23/22 02:36 Urine Glucose (UA) 4+ (Normal) H 10/23/22 02:36 Urine Ketones Negative (Negative) 10/23/22 02:36 Urine Blood 2+ (Negative) H 10/23/22 02:36 Urine Nitrate Negative (Negative) 10/23/22 02:36 Urine Bilirubin Neg (Negative) 10/23/22 02:36 Prot Sulfosalicylic Acd Positive (Negative) 10/23/22 02:36 Urine Urobilinogen Neg mg/dL (Negative) 10/23/22 02:36 Ur Leukocyte Esterase 2+ (Negative) H 10/23/22 02:36 Urine RBC None /hpf (0-2) 10/23/22 02:36 Urine WBC Too numerous to cnt /hpf (0-5) H 10/23/22 02:36 Ur Squamous Epith Cells None /hpf (0-5) 10/23/22 02:36 Amorphous Sediment Not Reportable 10/23/22 02:36 Urine Bacteria 4+ /hpf (NONE) H 10/23/22 02:36 Influenza Type A Ag negative (Negative) 10/23/22 02:20 Influenza Type B Ag negative (Negative) 10/23/22 02:20 SARS-CoV-2 Ag (Rapid) negative (Negative) 10/23/22 02:20 Discharge Plan Discharge Patient Disposition: Home Clinical Impression: Urinary tract infection Condition: Stable Prescriptions: New amoxicillin-pot clavulanate 875-125 mg tablet 1 tab PO BID Qty: 14 0RF doxycycline hyclate 100 mg capsule 100 mg PO BID 21 Days Qty: 42 0RF Discontinued amoxicillin 500 mg capsule 500 mg PO BID Qty: 60 3RF No Action tamsulosin 0.4 mg capsule 0.4 mg PO DAILY@06 citalopram [Celexa] 10 mg tablet 10 mg PO QAM bumetanide 2 mg tablet See Rx Instructions .ROUTE .COMPLEX Rx Instructions: 2 mg po qam and takes an additional 2mg if needed leflunomide 10 mg tablet 10 mg PO DAILY Qty: 30 3RF prednisone 5 mg tablet 7.5 mg PO QAM Qty: 45 2RF potassium chloride 20 mEq Tablet Extended Release 20 meq PO BID pantoprazole [Protonix] 40 mg Tablet,Delayed Release (Dr/Ec) 40 mg PO DAILY@06 aspirin 81 mg Tablet,Delayed Release (Dr/Ec) 81 mg PO BEDTIME insulin glargine [Lantus Solostar U-100 Insulin] 100 unit/mL (3 mL) insulin pen See Rx Instructions .ROUTE .COMPLEX Rx Instructions: 43 units in the am and 20-22 units bedtime Florajen Acidophilus 20 billion cell Capsule 20,000 mmu cells PO QPM PNV cmb#95-ferrous fumarate-FA [ Multivitamins] 28 mg iron- 800 mcg Tablet 1 tab PO DAILY@06 atorvastatin 40 mg tablet 40 mg PO DAILY@19 diltiazem HCl 120 mg capsule,extended release 24hr 120 mg PO DAILY@06 hydroxyzine pamoate 25 mg capsule 25 mg PO BEDTIME lisinopril 2.5 mg Tablet 2.5 mg PO DAILY PRN (Reason: blood pressure over 130/80) Qty: 0 acetaminophen 500 mg Tablet 500 mg PO Q6H PRN (Reason: Pain) ascorbic acid (vitamin C) [Vitamin C] 500 mg Tablet 500 mg PO QAM warfarin 7.5 mg tablet 7.5 mg PO QPM nitroglycerin [Nitrostat] 0.4 mg Tablet, Sublingual 0.4 mg SUBLINGUAL Q5M PRN (Reason: Chest Pain) Rx Instructions: do not exceed 3 doses per episode fosfomycin tromethamine 3 gram packet 1 packet PO Q48H 90 Days Qty: 45 6RF metoprolol tartrate 25 mg tablet 25 mg PO BID Qty: 90 0RF nystatin 100,000 unit/gram cream 1 applic topical BID Qty: 30 0RF Rx Instructions: Intertrigo under pannus Discharge Orders: Discharge ED (Routine); Ordered 10/23/22 Ordered By: Dale Thomas Referrals: Faustina Gonzalez CNA PER DIEM [Referring] - Patient Instructions: Urinary Tract Infection in Older Adults (ED) Activity Restrictions/Additional Instructions: Antibiotics as directed. Stay hydrated return for fever greater than 100 despite 2-3 more doses of antibiotics, worsening mental status or lethargy, worsening weakness despite treatment, any other concerning symptoms. Sign Out Sign Out Data: Patient Sign Out occurred on 10/23/22 at 12:06. Patient's care was discussed, and care was transferred from to Raymon Boyce DO. Coding Level of Care Code ED Sales Recruitment Specialist for Chg Fwd Exam Comprehensive Documented by User: Dale Thomas DO 10/23/22 17:07 HPI - General Adult General: Chief complaint: Weakness Stated complaint: WEAKNESS Time Seen by Provider: 10/23/22 02:04 [facility] ED PFSH: Medical History (Updated 10/23/22 @ 03:38 by Dale Thomas DO) Acute cystitis Altered mental status Aortic stenosis Had TAVR replacement 2017 Atrial fibrillation Bilateral renal masses CHF (congestive heart failure) EF 45 by transesophageal echo January 2019 Chronic antibiotic suppression Chronic anticoagulation coumadin Chronic urinary tract infection, suppressed Chronic use of steroids Complex renal cyst Congestive heart failure CVA (cerebral vascular accident) Dementia Diabetes Dyslipidemia Endocarditis history of chronic viridans endocarditis, 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 Essential hypertension Gout High risk medication use arava and chronic steroids 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 Hx of [place] spotted fever Ischemic cardiomyopathy Left ventricular hypertrophy Obesity AJAY (obstructive sleep apnea) Pulmonary HTN Pyelonephritis of right kidney Recurrent UTI Multidrug-resistant organisms Renal calculi Restrictive lung disease Rheumatoid arthritis Skin lesion Thalassemia Surgical History H/O lithotripsy S/P TAVR (transcatheter aortic valve replacement) (~2018) Family History Mother Stroke Father Myocardial infarction Other CAD (coronary artery disease) Chronic kidney disease (CKD) Diabetes Hypertension Social History Smoking and tobacco status: former smoker Quit status (tobacco): has quit using tobacco Year quit tobacco: 2019 - Chewing Tobacco Former quit date comment: Hx of 1/2 can x 50 Years Second hand smoke exposure: No Alcohol intake: former Lives independently: No Household members: spouse Marital status: Current occupational status: retired and disabled History of recent travel: No Current gender identity: Male Course Vital Signs: Vital signs: Vital Signs Temperature 97.7 F 10/23/22 02:00 Pulse Rate 84 10/23/22 02:00 Respiratory Rate 25 H 10/23/22 02:00 Blood Pressure 152/90 10/23/22 02:00 Pulse Oximetry 100 10/23/22 02:00 Oxygen Delivery Me thod 10/23/22 02:00 MDM - General Adult Medical Decision Making Patient was brought in by EMS tonight for concerns of weakness and general malaise. Spouse believes the patient may have a urinary tract infection, patient gets frequent urinary tract infections. On exam patient has very rotund abdomen was soft nontender. Patient does have a large abdominal hernia. Bowel sounds are present. Skin turgor is poor. Oral mucosa is dry. Vital signs are normal except for some elevation of blood pressure 152 systolic. Patient recently been started on Farxiga. Differential diagnosis includes sepsis, urinary tract infection, dehydration, diabetic ketoacidosis, dementia. Patient was reviewed with Dr. Thomas who assumed care of patient at the end of my shift. This patient was originally seen by ALTAF Qureshi. I agree with his history, evaluation, and treatment. The patient's weakness appears near baseline. He does in fact have a urinary tract infection. He has received one dose of IV Zosyn here. previous urine cultures show ESBL Kelbsiella. He has been hospitalized on Ertapentem in the past for this. They showed sensitivity to augmentin and tetracyclines. He will go home on these antibiotics. Prompt return if worsening given his prior history. Patient was in signout q. inadvertently received the chart I did not care for participate in his ER stay. Lab Data 10/23/22 02:20 12 02:20 Radiology Impressions Chest X-Ray 10/23/22 02:04 IMPRESSION: 1. Stable endovascular aortic valve replacement. 2. No acute findings. Laboratory Results WBC 8.4 10^3/uL (4.0-10.0) 10/23/22 02:20 RBC 7.18 10^6/uL (4.1-5.3) H 10/23/22 02:20 Hgb 11.9 g/dL (11.7-16.6) 10/23/22 02:20 Hct 41.8 % (42.0-52.0) L 10/23/22 02:20 MCV 58.2 fl (80-94) L 10/23/22 02:20 MCH 16.6 pg (28.0-34.0) L 10/23/22 02:20 MCHC 28.5 g/dL (30.0-36.0) L 10/23/22 02:20 RDW 20.4 % (12.1-15.1) H 10/23/22 02:20 Plt Count 314 10^3/cmm (130-400) 10/23/22 02:20 MPV Not Reportable 10/23/22 02:20 Neut % (Auto) 64.8 % 10/23/22 02:20 Lymph % (Auto) 22.6 % 10/23/22 02:20 [place] % (Auto) 8.6 % 10/23/22 02:20 Eos % (Auto) 2.4 % 10/23/22 02:20 Baso % (Auto) 1.0 % 10/23/22 02:20 Neut # (Auto) 5.45 10^3/uL (1.8-7.7) 10/23/22 02:20 Lymph # (Auto) 1.9 10^3/uL (0.8-4.8) 10/23/22 02:20 [place] # (Auto) 0.7 10^3/uL (0.2-0.9) 10/23/22 02:20 Eos # (Auto) 0.2 10^3/uL (0.0-0.8) 10/23/22 02:20 Baso # (Auto) 0.1 10^3/uL (0.0-0.1) 10/23/22 02:20 Nucleated RBC % (auto) 0 % 10/23/22 02:20 Nucleated RBCs # 0.0 /100WBC 10/23/22 02:20 Sodium 131 mmol/L (136-145) L 10/23/22 02:20 Potassium 3.7 mmol/L (3.5-5.1) 10/23/22 02:20 Chloride 93 mmol/L (98-107) L 10/23/22 02:20 Carbon Dioxide 28 mmol/L (22-29) 10/23/22 02:20 Anion Gap 13.7 (5-19) 10/23/22 02:20 BUN 27 mg/dL (8-23) H 10/23/22 02:20 Creatinine 1.2 mg/dL (0.7-1.2) 10/23/22 02:20 GFR Calculation 60.0 mL/min (90-130) L 10/23/22 02:20 Glucose 134 mg/dL (65-115) H 10/23/22 02:20 Calculated Osmolality 279 mOsm/kg (285-295) L 10/23/22 02:20 Lactic Acid 1.4 mmol/L (0.5-2.2) 10/23/22 02:20 Calcium 9.8 mg/dL (8.5-10.5) 10/23/22 02:20 Total Bilirubin 0.5 mg/dL (0.15-1.2) 10/23/22 02:20 AST 16 U/L (0-40) 10/23/22 02:20 ALT 11 U/L (0-41) 10/23/22 02:20 Alkaline Phosphatase 107 U/L (40-130) 10/23/22 02:20 C-Reactive Protein 15.8 mg/L (0.0-4.9) H 10/23/22 02:20 Total Protein 7.2 g/dL (6.6-8.7) 10/23/22 02:20 Albumin 3.4 g/dL (3.5-5.2) L 10/23/22 02:20 Globulin 3.8 g/dL (1.3-4.6) 10/23/22 02:20 Urine Color Yellow (Yellow) 10/23/22 02:36 Urine Appearance Hazy (CLEAR) A 10/23/22 02:36 Urine pH 8 (5-7) H 10/23/22 02:36 Ur Specific [place] 1.010 (1.005-1.030) 10/23/22 02:36 Urine Protein Neg (Negative) 10/23/22 02:36 Urine Glucose (UA) 4+ (Normal) H 10/23/22 02:36 Urine Ketones Negative (Negative) 10/23/22 02:36 Urine Blood 2+ (Negative) H 10/23/22 02:36 Urine Nitrate Negative (Negative) 10/23/22 02:36 Urine Bilirubin Neg (Negative) 10/23/22 02:36 Prot Sulfosalicylic Acd Positive (Negative) 10/23/22 02:36 Urine Urobilinogen Neg mg/dL (Negative) 10/23/22 02:36 Ur Leukocyte Esterase 2+ (Negative) H 10/23/22 02:36 Urine RBC None /hpf (0-2) 10/23/22 02:36 Urine WBC Too numerous to cnt /hpf (0-5) H 10/23/22 02:36 Ur Squamous Epith Cells None /hpf (0-5) 10/23/22 02:36 Amorphous Sediment Not Reportable 10/23/22 02:36 Urine Bacteria 4+ /hpf (NONE) H 10/23/22 02:36 Influenza Type A Ag negative (Negative) 10/23/22 02:20 Influenza Type B Ag negative (Negative) 10/23/22 02:20 SARS-CoV-2 Ag (Rapid) negative (Negative) 10/23/22 02:20 Discharge Plan Discharge Patient Disposition: Home Clinical Impression: Urinary tract infection Condition: Stable Prescriptions: New amoxicillin-pot clavulanate 875-125 mg tablet 1 tab PO BID Qty: 14 0RF doxycycline hyclate 100 mg capsule 100 mg PO BID 21 Days Qty: 42 0RF Discontinued amoxicillin 500 mg capsule 500 mg PO BID Qty: 60 3RF No Action tamsulosin 0.4 mg capsule 0.4 mg PO DAILY@06 citalopram [Celexa] 10 mg tablet 10 mg PO QAM bumetanide 2 mg tablet See Rx Instructions .ROUTE .COMPLEX Rx Instructions: 2 mg po qam and takes an additional 2mg if needed leflunomide 10 mg tablet 10 mg PO DAILY Qty: 30 3RF prednisone 5 mg tablet 7.5 mg PO QAM Qty: 45 2RF potassium chloride 20 mEq Tablet Extended Release 20 meq PO BID pantoprazole [Protonix] 40 mg Tablet,Delayed Release (Dr/Ec) 40 mg PO DAILY@06 aspirin 81 mg Tablet,Delayed Release (Dr/Ec) 81 mg PO BEDTIME insulin glargine [Lantus Solostar U-100 Insulin] 100 unit/mL (3 mL) insulin pen See Rx Instructions .ROUTE .COMPLEX Rx Instructions: 43 units in the am and 20-22 units bedtime Florajen Acidophilus 20 billion cell Capsule 20,000 mmu cells PO QPM PNV cmb#95-ferrous fumarate-FA [ Multivitamins] 28 mg iron- 800 mcg Tablet 1 tab PO DAILY@06 atorvastatin 40 mg tablet 40 mg PO DAILY@19 diltiazem HCl 120 mg capsule,extended release 24hr 120 mg PO DAILY@06 hydroxyzine pamoate 25 mg capsule 25 mg PO BEDTIME lisinopril 2.5 mg Tablet 2.5 mg PO DAILY PRN (Reason: blood pressure over 130/80) Qty: 0 acetaminophen 500 mg Tablet 500 mg PO Q6H PRN (Reason: Pain) ascorbic acid (vitamin C) [Vitamin C] 500 mg Tablet 500 mg PO QAM warfarin 7.5 mg tablet 7.5 mg PO QPM nitroglycerin [Nitrostat] 0.4 mg Tablet, Sublingual 0.4 mg SUBLINGUAL Q5M PRN (Reason: Chest Pain) Rx Instructions: do not exceed 3 doses per episode fosfomycin tromethamine 3 gram packet 1 packet PO Q48H 90 Days Qty: 45 6RF metoprolol tartrate 25 mg tablet 25 mg PO BID Qty: 90 0RF nystatin 100,000 unit/gram cream 1 applic topical BID Qty: 30 0RF Rx Instructions: Intertrigo under pannus Discharge Orders: Discharge ED (Routine); Ordered 10/23/22 Ordered By: Dale Thomas Referrals: Faustina Gonzalez NP [Referring] - Patient Instructions: Urinary Tract Infection in Older Adults (ED) Activity Restrictions/Additional Instructions: Antibiotics as directed. Stay hydrated return for fever greater than 100 despite 2-3 more doses of antibiotics, worsening mental status or lethargy, worsening weakness despite treatment, any other concerning symptoms. Sign Out Sign Out Data: Patient Sign Out occurred on 10/23/22 at 12:06. Patient's care was discussed, and care was transferred from to Raymon Boyce DO. Coding Level of Care Code ED Sales Recruitment Specialist for John Fwjackelin Exam Comprehensive
[2022-10-23 02:32] LABS: Basophils # 0.1 10^3/uL (0.0-0.1); Eosinophils # 0.2 10^3/uL (0.0-0.8); Eosinophils % 2.4 %; Hematocrit 41.8 % (42.0-52.0); Hemoglobin 11.9 g/dL (11.7-16.6); Lymphocytes # 1.9 10^3/uL (0.8-4.8); Lymphocytes % 22.6 %; Mean Corpuscular HGB Conc 28.5 g/dL (30.0-36.0); Mean Corpuscular Hemoglobin 16.6 pg (28.0-34.0); Mean Corpuscular Volume 58.2 fl (80-94); Monocytes # 0.7 10^3/uL (0.2-0.9); Monocytes % 8.6 %; Neutrophils # 5.45 10^3/uL (1.8-7.7); Neutrophils % 64.8 %; Nucleated Red Blood Cells % 0 %; Platelet Count 314 10^3/cmm (130-400); Red Blood Count 7.18 10^6/uL (4.1-5.3); Red Cell Distribution Width 20.4 % (12.1-15.1); White Blood Count 8.4 10^3/uL (4.0-10.0)
[2022-10-23] MEDS: sodium chloride 0.9% 500 ML 999 ML IV (02:38)
[2022-10-23 02:48] LABS: Influenza A by IFA negative (Negative); Influenza B by IFA negative (Negative); SARS Covid-2 Antigen negative (Negative)
[2022-10-23 02:49] LABS: Lactic Sepsis W/Reflex 1.4 mmol/L (0.5-2.2)
[2022-10-23 02:50] LABS: Alanine Aminotransferase 11 U/L (0-41); Albumin Level 3.4 g/dL (3.5-5.2); Alkaline Phosphatase 107 U/L (40-130); Anion Gap 13.7 (5-19); Aspartate Amino Transferase 16 U/L (0-40); Blood Urea Nitrogen 27 mg/dL (8-23); C Reactive Protein 15.8 mg/L (0.0-4.9); Calcium 9.8 mg/dL (8.5-10.5); Carbon Dioxide 28 mmol/L (22-29); Chloride 93 mmol/L (98-107); Globulin 3.8 g/dL (1.3-4.6); Glucose 134 mg/dL (65-115); Osmolality Calculated 279 mOsm/kg (285-295); Potassium 3.7 mmol/L (3.5-5.1); Sodium 131 mmol/L (136-145); Total Bilirubin 0.5 mg/dL (0.15-1.2); Total Protein 7.2 g/dL (6.6-8.7)
[2022-10-23 03:14] LABS: Slide Review Slide Review Perform
[2022-10-23 03:15] LABS: Bilirubin Urine Neg (Negative); Blood Urine 2+ (Negative); Glucose Urine UA 4+ (Normal); Ketones Urine Negative (Negative); Nitrate Urine Negative (Negative); Protein Urine Neg (Negative); Urine Appearance Hazy (CLEAR); Urine Color Yellow (Yellow); pH Urine 8 (5-7)
[2022-10-23 03:16] LABS: Add Urine Microscopic? YES; Leukocyte Esterase Urine 2+ (Negative); Urobilinogen Urine Neg (Negative)
[2022-10-23 03:18] LABS: Add Urine Culture? Yes; Bacteria Urine 4+ /hpf; WBC Urine TOO NUMEROUS TO CNT /hpf (0-5)
[2022-10-23 03:20] LABS: Sulfosalicylic Acid Urine Positive (Negative)
[2022-10-23] MEDS: piperacillin-tazobactam 3.375 GM in sodium chloride 0.9% (plus) 50 ML IV (03:48)
== END 2022-10-23 06:10 | disposition home or self-care (01) ==
PROVIDERS: Nurse Practitioner Family; Emergency Provider Family Medicine
DX: N39.0 Urinary tract infection, site not specified (principal); Z87.891 Personal history of nicotine dependence; Z20.822 Contact with and (suspected) exposure to COVID-19; Z79.01 Long term (current) use of anticoagulants
CPT/HCPCS: 36415; 71045; 80053; 81001; 83605; 85025; 86140; 87040; 87077; 87086; 87186; 87426; 87804; 93005; 96365; 99284; J2543; J7040

== ENCOUNTER 2022-11-04 11:10 | Emergency (ER) | payer MEDICARE, OTHER, SELFPAY ==
[2022-11-04 11:19] VITALS: BP 118/76; PULSE 70; RESP 16; TEMP 36.4; O2SAT 95; BMI 34.0
--- NOTE | 2022-11-04 11:34 | XRR_ITS ---
PROCEDURE INFORMATION: Exam: XR Chest Exam date and time: 11/04/2022 12:37 PM Age: 67 years old Clinical indication: Other: Syncope TECHNIQUE: Imaging protocol: Radiologic exam of the chest. Views: 1 view. COMPARISON: CR (CHEST, ) 10/23/2022 2:46 AM FINDINGS: Lungs: Unremarkable. No consolidation. Pleural spaces: Unremarkable. No pleural effusion. No pneumothorax. Heart/Mediastinum: Cardiac silhouette is mildly enlarged on this portable chest. Prior aortic valve repair. Bones/joints: Unremarkable. XR/XR chest 1V portable [id number] IMPRESSION: Mild cardiomegaly otherwise negative chest.
--- NOTE | 2022-11-04 11:35 | ECG_ITS ---
[facility] Test Date: 2022-11-04 Pat Name: Ry Loyd Department: Room: Gender: Male Md Psychiatry: : 1955 Requested By: Edgar Shields Order Number: [id number] Reading MD: Ari Pettit M.D. Measurements Intervals [place] Rate: 57 P: 0 [place]: 0 QRS: -18 QRSD: 96 T: 152 QT: 461 QTc: 452 Interpretive Statements ATRIAL FIBRILLATION WITH SLOW VENTRICULAR RESPONSE NONSPECIFIC ST & T-WAVE ABNORMALITY Compared to ECG 10/23/2022 02:04:51 No significant changes Electronically Signed On 11-04-2022 13:46:30 RESIDENCE LIFE DIRECTOR by Ari Pettit M.D. [id number]
--- NOTE | 2022-11-04 11:36 | W.ED.SYNCOPE ---
HPI - Syncope General: Chief Complaint: Syncope Stated Complaint: possible syncope Time Seen by Provider: 11/04/22 11:24 Source: patient and family () Mode of arrival: ambulatory Limitations: no limitations History of Present Illness: See nursing assessment. Patient with complaints of syncopal episode approximately 2 and half hours ago while sitting in recliner at home. states that he passed out for approximately 3 to 4 minutes. She did check vital signs at home with monitor. Reportedly blood pressure was 120s over 80s and CBG was 160 at the time. After patient woke up he had no complaints. Patient denies any palpitations, headache, chest pain, shortness of breath, nausea or vomiting. Denies any abdominal pain. Denies any back pain. states that he was treated on October 23 for urinary tract infection and was placed on 2 weeks of Augmentin and doxycycline. Patient is still taking antibiotics. Last dose was on Monday. Patient reportedly was started on a new diabetes medication about a month ago. Patient has no complaints now. He states he feels back to baseline. Associated symptoms: Deny abdominal pain, chest pain, fever(s), headache(s) or nausea Review of Systems Const: Denies: fever(s) or chills Eyes: Denies: change in vision ENMT: Denies: throat pain Card: Reports: syncope; Denies: chest pain, palpitations, irregular heart rhythm, edema, dyspnea on exertion or orthopnea Resp: Denies: dyspnea, productive cough, non-productive cough or wheezing GI: Denies: abdominal pain, nausea or vomiting : Denies: flank pain Musc: Denies: neck pain or back pain Skin/Breast: Denies: rash or pruritus Neuro: Denies: headache(s) or numbness in extremities Psych: Denies: anxiety Aaron/Lymph: Denies: enlarged lymph nodes PFSH ED PFSH: Medical History Acute cystitis Altered mental status Aortic stenosis Had TAVR replacement 2017 Atrial fibrillation Bilateral renal masses CHF (congestive heart failure) EF 45 by transesophageal echo January 2019 Chronic antibiotic suppression Chronic anticoagulation coumadin Chronic urinary tract infection, suppressed Chronic use of steroids Complex renal cyst Congestive heart failure CVA (cerebral vascular accident) Dementia Diabetes Dyslipidemia Endocarditis history of chronic viridans endocarditis, 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 Essential hypertension Gout High risk medication use arava and chronic steroids 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 Ischemic cardiomyopathy Left ventricular hypertrophy Obesity AJAY (obstructive sleep apnea) Pulmonary HTN Pyelonephritis of right kidney Recurrent UTI Multidrug-resistant organisms Renal calculi Restrictive lung disease Rheumatoid arthritis Skin lesion Thalassemia Surgical History H/O lithotripsy S/P TAVR (transcatheter aortic valve replacement) (~2018) Family History Mother Stroke Father Myocardial infarction Other CAD (coronary artery disease) Chronic kidney disease (CKD) Diabetes Hypertension Social History Smoking and tobacco status: former smoker Quit status (tobacco): has quit using tobacco Year quit tobacco: 2019 - Chewing Tobacco Former quit date comment: Hx of 1/2 can x 50 Years Second hand smoke exposure: No Alcohol intake: former Lives independently: No Household members: spouse Marital status: Current occupational status: retired and disabled History of recent travel: No Current gender identity: Male Physical Exam Const: COMMON NORMALS: no acute distress, patient oriented x3, no limitations and well nourished GENERAL APPEARANCE: cooperative HENMT: COMMON NORMALS: normocephalic and atraumatic HEAD & SCALP: normocephalic and atraumatic FACE & SINUS: normal facial exam Eye: COMMON NORMALS: EOMs intact bilaterally Neck/C-Spine: COMMON NORMALS: full ROM, no lymphadenopathy, supple and no meningeal signs GENERAL: Yes normal visual inspection Lymph: LYMPHATIC: no lymphadenopathy noted Chest: COMMONS NORMALS: normal inspection of the chest and normal palpation of entire chest wall CHEST: No Ecchymosis present and No rash Resp: COMMON NORMALS: normal respiratory effort, No retractions and clear to auscultation bilaterally EFFORT & INSPECTION: No respiratory distress AUSCULTATION: clear to auscultation bilaterally Cardio: COMMON NORMALS: regular rate, regular rhythm and Peripheral pulses 2+ throughout JUGULAR VENOUS DISTENTION: no JVD RATE: regular rate RHYTHM: regular rhythm PERIPHERAL PULSES: Peripheral pulses 2+ throughout GI: COMMON NORMALS: Normal to inspection, nondistended, normoactive bowel sounds present and non-tender OTHER: Morbid obesity. No bruits or pulsatile masses. : COMMON NORMALS: Yes no CVA tenderness BLADDER/KIDNEY EXAM: Yes no CVA tenderness Back/Pelvis: COMMON NORMALS: no CVA tenderness Extremity: COMMON NORMALS: normal to inspection, full ROM and capillary refill normal Neuro: COMMON NORMALS: patient oriented x3, CN's II-XII intact bilaterally, no focal motor deficits and no sensory deficits noted MENINGEAL SIGNS: Yes no meningeal signs Psych: COMMON NORMALS: mental status grossly normal and Normal thought process present THOUGHT PROCESS: Normal thought process present Skin: COMMON NORMALS: no rashes or lesions noted and no wounds GENERAL SKIN EXAM: no rashes or lesions noted Course Vital Signs: Vital signs: Vital Signs Temperature 97.6 F 11/04/22 11:19 Pulse Rate 70 11/04/22 11:19 Respiratory Rate 16 11/04/22 11:19 Blood Pressure 118/76 11/04/22 11:19 Pulse Oximetry 95 11/04/22 11:19 Oxygen Delivery Me thod 11/04/22 11:19 MDM - Syncope Medical Decision Making Orthostatic versus vasovagal syncope. Possible arrhythmia. Possible fatigue Troponin levels are little higher than his baseline. Second troponin trended downwards. Offered admission for further cardiac monitoring to the patient. Patient declined admission. was trying to encourage patient stay but patient was adamant about going home. Patient still wants to go home. I encouraged him to return if symptoms worsen. Lab Data 11/04/22 11:57 11/04/22 11:57 Radiology Impressions Chest X-Ray 11/04/22 11:34 IMPRESSION: Mild cardiomegaly otherwise negative chest. Laboratory Results WBC 8.9 10^3/uL (4.0-10.0) 11/04/22 11:57 RBC 7.49 10^6/uL (4.1-5.3) H 11/04/22 11:57 Hgb 12.5 g/dL (11.7-16.6) 11/04/22 11:57 Hct 43.1 % (42.0-52.0) 11/04/22 11:57 MCV 57.5 fl (80-94) L 11/04/22 11:57 MCH 16.7 pg (28.0-34.0) L 11/04/22 11:57 MCHC 29.0 g/dL (30.0-36.0) L 11/04/22 11:57 RDW 22.5 % (12.1-15.1) H 11/04/22 11:57 Plt Count 326 10^3/cmm (130-400) 11/04/22 11:57 MPV 8.6 fL (7.4-10.4) 11/04/22 11:57 Neut % (Auto) 63.4 % 11/04/22 11:57 Lymph % (Auto) 24.0 % 11/04/22 11:57 [place] % (Auto) 8.5 % 11/04/22 11:57 Eos % (Auto) 2.6 % 11/04/22 11:57 Baso % (Auto) 1.1 % 11/04/22 11:57 Neut # (Auto) 5.63 10^3/uL (1.8-7.7) 11/04/22 11:57 Lymph # (Auto) 2.1 10^3/uL (0.8-4.8) 11/04/22 11:57 [place] # (Auto) 0.8 10^3/uL (0.2-0.9) 11/04/22 11:57 Eos # (Auto) 0.2 10^3/uL (0.0-0.8) 11/04/22 11:57 Baso # (Auto) 0.1 10^3/uL (0.0-0.1) 11/04/22 11:57 Nucleated RBC % (auto) 0.2 % 11/04/22 11:57 Nucleated RBCs # 0.0 /100WBC 11/04/22 11:57 Hypochromasia 2+ H 11/04/22 11:57 Poikilocytosis 2+ H 11/04/22 11:57 Basophilic Stippling Trace 11/04/22 11:57 Anisocytosis 2+ H 11/04/22 11:57 Target Cells 1+ H 11/04/22 11:57 Ovalocytes Trace 11/04/22 11:57 Acanthocytes (Spur) 1+ H 11/04/22 11:57 Schistocytes Trace 11/04/22 11:57 PT 20.50 SECONDS (12.1-14.9) H 11/04/22 11:57 INR 1.72 (0.8-1.2) H 11/04/22 11:57 Sodium 142 mmol/L (136-145) 11/04/22 11:57 Potassium 3.7 mmol/L (3.5-5.1) 11/04/22 11:57 Chloride 105 mmol/L (98-107) 11/04/22 11:57 Carbon Dioxide 26 mmol/L (22-29) 11/04/22 11:57 Anion Gap 14.7 (5-19) 11/04/22 11:57 BUN 37 mg/dL (8-23) H 11/04/22 11:57 Creatinine 1.2 mg/dL (0.7-1.2) 11/04/22 11:57 GFR Calculation 60.0 mL/min (90-130) L 11/04/22 11:57 Glucose 144 mg/dL (65-115) H 11/04/22 11:57 Calculated Osmolality 305 mOsm/kg (285-295) H 11/04/22 11:57 Calcium 9.9 mg/dL (8.5-10.5) 11/04/22 11:57 Magnesium 2.2 mg/dL (1.7-2.3) 11/04/22 11:57 Troponin T Baseline 68 ng/L (0-15) H 11/04/22 11:57 Troponin T 120 Minute 65.18 ng/L (0-15) H 11/04/22 13:00 Delta Troponin T -2.82 ABS# (0-10) L 11/04/22 13:00 Urine Color Yellow (Yellow) 11/04/22 13:00 Urine Appearance Clear (CLEAR) 11/04/22 13:00 Urine pH 5 (5-7) 11/04/22 13:00 Ur Specific [place] 1.010 (1.005-1.030) 11/04/22 13:00 Urine Protein Neg (Negative) 11/04/22 13:00 Urine Glucose (UA) 4+ (Normal) H 11/04/22 13:00 Urine Ketones Negative (Negative) 11/04/22 13:00 Urine Blood Neg (Negative) 11/04/22 13:00 Urine Nitrate Negative (Negative) 11/04/22 13:00 Urine Bilirubin Neg (Negative) 11/04/22 13:00 Urine Urobilinogen Norm mg/dL (Negative) 11/04/22 13:00 Ur Leukocyte Esterase Trace (Negative) H 11/04/22 13:00 Urine RBC 0-4 /hpf (0-2) H 11/04/22 13:00 Urine WBC 0-4 /hpf (0-5) H 11/04/22 13:00 Ur Squamous Epith Cells 0-4 /hpf (0-5) H 11/04/22 13:00 Amorphous Sediment 1+ /hpf 11/04/22 13:00 Urine Bacteria Trace /hpf (NONE) 11/04/22 13:00 Imaging Data CXR: Radiologist's impression: PROCEDURE INFORMATION: Exam: XR Chest Exam date and time: 11/04/2022 12:37 PM Age: 67 years old Clinical indication: Other: Syncope TECHNIQUE: Imaging protocol: Radiologic exam of the chest. Views: 1 view. COMPARISON: CR (CHEST, ) 10/23/2022 2:46 AM FINDINGS: ?Lungs: Unremarkable. No consolidation. ?Pleural spaces: Unremarkable. No pleural effusion. No pneumothorax. ?Heart/Mediastinum: Cardiac silhouette is mildly enlarged on this portable chest. Prior aortic valve repair. ?Bones/joints: Unremarkable. XR/XR chest 1V portable [id number] IMPRESSION: Mild cardiomegaly otherwise negative chest. ? Dictated By: Danie Liu MD Signed By: Danie Liu MD Signed Date/Time: 11/04/22 1316 EKG Data EKG 1: I personally reviewed and interpreted this EKG as follows: EKG interpretation date: 11/04/22 EKG interpretation time: 11:48 Prior EKG tracings: available for review (Unchanged from previous) Interpretation: Impression atrial fibrillation rate controlled heart rate 57. Nonspecific ST-T changes. Mild left axis. Normal QRS. Normal QT interval. Normal T waves. Discharge Plan Discharge Patient Disposition: Home Clinical Impression: Chronic atrial fibrillation, Elevated troponin Syncope Qualifiers: Syncope type: unspecified Qualified Code(s): R55 - Syncope and collapse Condition: Stable Prescriptions: No Action tamsulosin 0.4 mg capsule 0.4 mg PO DAILY@06 citalopram [Celexa] 10 mg tablet 10 mg PO QPM bumetanide 2 mg tablet 2 mg PO BID potassium chloride 20 mEq Tablet Extended Release 20 meq PO BID pantoprazole [Protonix] 40 mg Tablet,Delayed Release (Dr/Ec) 40 mg PO DAILY@06 aspirin 81 mg Tablet,Delayed Release (Dr/Ec) 81 mg PO BEDTIME insulin glargine [Lantus Solostar U-100 Insulin] 100 unit/mL (3 mL) insulin pen 25 unit SUBCUT BID Florajen Acidophilus 20 billion cell Capsule 20,000 mmu cells PO BEDTIME PNV cmb#95-ferrous fumarate-FA [ Multivitamins] 28 mg iron- 800 mcg Tablet 1 tab PO DAILY@06 atorvastatin 40 mg tablet 40 mg PO DAILY@19 diltiazem HCl 120 mg capsule,extended release 24hr 120 mg PO DAILY@06 acetaminophen 500 mg Tablet 500 mg PO Q6H PRN (Reason: Pain) ascorbic acid (vitamin C) [Vitamin C] 500 mg Tablet 500 mg PO QPM nitroglycerin [Nitrostat] 0.4 mg Tablet, Sublingual 0.4 mg SUBLINGUAL Q5M PRN (Reason: Chest Pain) Rx Instructions: do not exceed 3 doses per episode amoxicillin-pot clavulanate 875-125 mg tablet 1 tab PO BID Qty: 14 0RF doxycycline hyclate 100 mg capsule 100 mg PO BID 21 Days Qty: 42 0RF carvedilol 6.25 mg tablet 9.375 mg PO BID hydroxyzine HCl 25 mg tablet 25 mg PO BEDTIME warfarin 1 mg tablet 6 mg PO QPM Vitamin D3 125 mcg (5,000 unit) Tablet 125 mcg PO QAM Farxiga 10 mg tablet 10 mg PO DAILY@06 prednisone 5 mg tablet 5 mg PO QAM Levemir U-100 Insulin 100 unit/mL solution 15 unit SUBCUT BEDTIME Rx Instructions: (NOT STARTED USING YET 11/04/22) Discharge Orders: Discharge ED (Routine); Ordered 11/04/22 Ordered By: Edgar Ramírez Referrals: Ari Pettit M.D [Physician] - Gregoria Cheek FNP [Primary Care Provider] - 11/07/22 Discharge Diet: Cardiac Discharge Activity: Limit activity as instructed Patient Instructions: Syncope (ED) Activity Restrictions/Additional Instructions: Rest for the next 2 to 3 days. Follow-up with teacher vocational training next week. Return if symptoms worsen. Coding Level of Care Code ED Lunchroom Attendant for Chg Fwd History Comprehensive Exam Comprehensive Medical Decision Making Moderate Complexity
[2022-11-04 12:17] LABS: Basophils # 0.1 10^3/uL (0.0-0.1); Basophils % 1.1 %; Eosinophils # 0.2 10^3/uL (0.0-0.8); Eosinophils % 2.6 %; Hematocrit 43.1 % (42.0-52.0); Hemoglobin 12.5 g/dL (11.7-16.6); Lymphocytes # 2.1 10^3/uL (0.8-4.8); Mean Corpuscular Hemoglobin 16.7 pg (28.0-34.0); Mean Corpuscular Volume 57.5 fl (80-94); Monocytes # 0.8 10^3/uL (0.2-0.9); Monocytes % 8.5 %; Neutrophils # 5.63 10^3/uL (1.8-7.7); Neutrophils % 63.4 %; Nucleated Red Blood Cells % 0.2 %; Platelet Count 326 10^3/cmm (130-400); Red Blood Count 7.49 10^6/uL (4.1-5.3); Red Cell Distribution Width 22.5 % (12.1-15.1); White Blood Count 8.9 10^3/uL (4.0-10.0)
[2022-11-04 12:32] LABS: Troponin(5th) Baseline 68 ng/L (0-15)
[2022-11-04 12:35] LABS: Anion Gap 14.7 (5-19); Blood Urea Nitrogen 37 mg/dL (8-23); Calcium 9.9 mg/dL (8.5-10.5); Carbon Dioxide 26 mmol/L (22-29); Chloride 105 mmol/L (98-107); Glucose 144 mg/dL (65-115); Magnesium 2.2 mg/dL (1.7-2.3); Osmolality Calculated 305 mOsm/kg (285-295); Potassium 3.7 mmol/L (3.5-5.1); Sodium 142 mmol/L (136-145)
[2022-11-04 12:59] LABS: INR 1.72 (0.8-1.2)
[2022-11-04 13:17] LABS: Add RBC Morph Yes; Mean Platelet Volume 8.6 fL (7.4-10.4)
[2022-11-04 13:18] LABS: Acanthocytes 1+; Anisocytosis 2+; Basophilic Stippling Trace; Hypochromasia 2+; Poikilocytosis 2+; RBC Morph Comp No; Schistocytes Trace; Target Cells 1+
[2022-11-04 13:19] LABS: Ovalocytes Trace
--- NOTE | 2022-11-04 13:21 | PC.PHAR ---
pts verified pts medications-pts states the pt is still using the lantus 25 units bid- states the pt hasnt started using levemir 15 units hs filled 10/21/22 -pts states trulicity 1.5mg q7d filled 10/18/22 and mounjaro 2.5mg q7d filled 10/12/22 was dced- states the leflunomide 10mg daily was dced-notes are made in the pharmacy comments
[2022-11-04 13:23] VITALS: BP 139/84; PULSE 61; RESP 23; O2SAT 97
[2022-11-04 13:30] VITALS: BP 139/84; PULSE 72; RESP 29; O2SAT 99
[2022-11-04 13:33] LABS: Add Urine Culture? No; Amorphous Sediment Urine 1+ /hpf; Bacteria Urine TRACE /hpf; Bilirubin Urine Neg (Negative); Blood Urine Neg (Negative); Glucose Urine UA 4+ (Normal); Ketones Urine Negative (Negative); Leukocyte Esterase Urine Trace (Negative); Nitrate Urine Negative (Negative); Protein Urine Neg (Negative); RBC Urine 0-4 /hpf (0-2); Squamous Epithelial Cell Urine 0-4 /hpf (0-5); Urine Appearance Clear (CLEAR); Urine Color Yellow (Yellow); Urobilinogen Urine Norm (Negative); WBC Urine 0-4 /hpf (0-5); pH Urine 5 (5-7)
[2022-11-04 13:35] LABS: Troponin 5 2HR 65.18 ng/L (0-15); Troponin 5 2HR Delta -2.82 ABS# (0-10)
--- NOTE | 2022-11-04 13:35 | ECG_ITS ---
[facility] Test Date: 2022-11-04 Pat Name: Ry Loyd Department: Room: Gender: Male Cap Sizer: : 1955 Requested By: Edgar Shields Order Number: [id number] Morena MD: Ari Pettit M.D. Measurements Intervals [place] Rate: 55 P: 0 SD: 0 QRS: -15 QRSD: 95 T: 136 QT: 427 QTc: 410 Interpretive Statements ATRIAL FIBRILLATION WITH SLOW VENTRICULAR RESPONSE VOLTAGE CRITERIA FOR LVH [MEETS CRITERIA IN ONE OF: R(aVL), S(V1), R(V5), R(V5/V6)+S(V1)] ST DEVIATION AND MODERATE T-WAVE ABNORMALITY, CONSIDER LATERAL ISCHEMIA [-0.1+ mV T-WAVE IN I/aVL/V5/V6] Compared to ECG 11/04/2022 11:47:04 Left ventricular hypertrophy now present Possible ischemia now present T-wave abnormality still present Electronically Signed On 11-04-2022 15:17:26 CUT PRESS OPERATOR by Ari Pettit M.D. [id number]
[2022-11-04 13:45] VITALS: BP 129/72; PULSE 71; RESP 25; O2SAT 96
[2022-11-04 14:00] VITALS: BP 138/89; PULSE 69; RESP 27; O2SAT 100
--- NOTE | 2022-11-04 14:00 | W.ED.SYNCOPE ---
HPI - Syncope General: Chief Complaint: Syncope Stated Complaint: possible syncope Time Seen by Provider: 11/04/22 11:24 Source: patient and family () Mode of arrival: ambulatory Limitations: no limitations History of Present Illness: EKG interpretation only [facility] ED PFSH: Medical History Acute cystitis Altered mental status Aortic stenosis Had TAVR replacement 2017 Atrial fibrillation Bilateral renal masses CHF (congestive heart failure) EF 45 by transesophageal echo January 2019 Chronic antibiotic suppression Chronic anticoagulation coumadin Chronic urinary tract infection, suppressed Chronic use of steroids Complex renal cyst Congestive heart failure CVA (cerebral vascular accident) Dementia Diabetes Dyslipidemia Endocarditis history of chronic viridans endocarditis, 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 Essential hypertension Gout High risk medication use arava and chronic steroids 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 Hx of [place] spotted fever Ischemic cardiomyopathy Left ventricular hypertrophy Obesity AJAY (obstructive sleep apnea) Pulmonary HTN Pyelonephritis of right kidney Recurrent UTI Multidrug-resistant organisms Renal calculi Restrictive lung disease Rheumatoid arthritis Skin lesion Thalassemia Surgical History H/O lithotripsy S/P TAVR (transcatheter aortic valve replacement) (~2018) Family History Mother Stroke Father Myocardial infarction Other CAD (coronary artery disease) Chronic kidney disease (CKD) Diabetes Hypertension Social History Smoking and tobacco status: former smoker Quit status (tobacco): has quit using tobacco Year quit tobacco: 2019 - Chewing Tobacco Former quit date comment: Hx of 1/2 can x 50 Years Second hand smoke exposure: No Alcohol intake: former Lives independently: No Household members: spouse Marital status: Current occupational status: retired and disabled History of recent travel: No Current gender identity: Male Course Vital Signs: Vital signs: Vital Signs Temperature 97.6 F 11/04/22 11:19 Pulse Rate 70 11/04/22 11:19 Respiratory Rate 16 11/04/22 11:19 Blood Pressure 118/76 11/04/22 11:19 Pulse Oximetry 95 11/04/22 11:19 Oxygen Delivery Me thod 11/04/22 11:19 MDM - Syncope Medical Decision Making Second EKG interpretation only. No new chart. Lab Data 11/04/22 11:57 11/04/22 11:57 Radiology Impressions Chest X-Ray 11/04/22 11:34 IMPRESSION: Mild cardiomegaly otherwise negative chest. Laboratory Results WBC 8.9 10^3/uL (4.0-10.0) 11/04/22 11:57 RBC 7.49 10^6/uL (4.1-5.3) H 11/04/22 11:57 Hgb 12.5 g/dL (11.7-16.6) 11/04/22 11:57 Hct 43.1 % (42.0-52.0) 11/04/22 11:57 MCV 57.5 fl (80-94) L 11/04/22 11:57 MCH 16.7 pg (28.0-34.0) L 11/04/22 11:57 MCHC 29.0 g/dL (30.0-36.0) L 11/04/22 11:57 RDW 22.5 % (12.1-15.1) H 11/04/22 11:57 Plt Count 326 10^3/cmm (130-400) 11/04/22 11:57 MPV 8.6 fL (7.4-10.4) 11/04/22 11:57 Neut % (Auto) 63.4 % 11/04/22 11:57 Lymph % (Auto) 24.0 % 11/04/22 11:57 [place] % (Auto) 8.5 % 11/04/22 11:57 Eos % (Auto) 2.6 % 11/04/22 11:57 Baso % (Auto) 1.1 % 11/04/22 11:57 Neut # (Auto) 5.63 10^3/uL (1.8-7.7) 11/04/22 11:57 Lymph # (Auto) 2.1 10^3/uL (0.8-4.8) 11/04/22 11:57 [place] # (Auto) 0.8 10^3/uL (0.2-0.9) 11/04/22 11:57 Eos # (Auto) 0.2 10^3/uL (0.0-0.8) 11/04/22 11:57 Baso # (Auto) 0.1 10^3/uL (0.0-0.1) 11/04/22 11:57 Nucleated RBC % (auto) 0.2 % 11/04/22 11:57 Nucleated RBCs # 0.0 /100WBC 11/04/22 11:57 Hypochromasia 2+ H 11/04/22 11:57 Poikilocytosis 2+ H 11/04/22 11:57 Basophilic Stippling Trace 11/04/22 11:57 Anisocytosis 2+ H 11/04/22 11:57 Target Cells 1+ H 11/04/22 11:57 Ovalocytes Trace 11/04/22 11:57 Acanthocytes (Spur) 1+ H 11/04/22 11:57 Schistocytes Trace 11/04/22 11:57 PT 20.50 SECONDS (12.1-14.9) H 11/04/22 11:57 INR 1.72 (0.8-1.2) H 11/04/22 11:57 Sodium 142 mmol/L (136-145) 11/04/22 11:57 Potassium 3.7 mmol/L (3.5-5.1) 11/04/22 11:57 Chloride 105 mmol/L (98-107) 11/04/22 11:57 Carbon Dioxide 26 mmol/L (22-29) 11/04/22 11:57 Anion Gap 14.7 (5-19) 11/04/22 11:57 BUN 37 mg/dL (8-23) H 11/04/22 11:57 Creatinine 1.2 mg/dL (0.7-1.2) 11/04/22 11:57 GFR Calculation 60.0 mL/min (90-130) L 11/04/22 11:57 Glucose 144 mg/dL (65-115) H 11/04/22 11:57 Calculated Osmolality 305 mOsm/kg (285-295) H 11/04/22 11:57 Calcium 9.9 mg/dL (8.5-10.5) 11/04/22 11:57 Magnesium 2.2 mg/dL (1.7-2.3) 11/04/22 11:57 Troponin T Baseline 68 ng/L (0-15) H 11/04/22 11:57 Troponin T 120 Minute 65.18 ng/L (0-15) H 11/04/22 13:00 Delta Troponin T -2.82 ABS# (0-10) L 11/04/22 13:00 Urine Color Yellow (Yellow) 11/04/22 13:00 Urine Appearance Clear (CLEAR) 11/04/22 13:00 Urine pH 5 (5-7) 11/04/22 13:00 Ur Specific [place] 1.010 (1.005-1.030) 11/04/22 13:00 Urine Protein Neg (Negative) 11/04/22 13:00 Urine Glucose (UA) 4+ (Normal) H 11/04/22 13:00 Urine Ketones Negative (Negative) 11/04/22 13:00 Urine Blood Neg (Negative) 11/04/22 13:00 Urine Nitrate Negative (Negative) 11/04/22 13:00 Urine Bilirubin Neg (Negative) 11/04/22 13:00 Urine Urobilinogen Norm mg/dL (Negative) 11/04/22 13:00 Ur Leukocyte Esterase Trace (Negative) H 11/04/22 13:00 Urine RBC 0-4 /hpf (0-2) H 11/04/22 13:00 Urine WBC 0-4 /hpf (0-5) H 11/04/22 13:00 Ur Squamous Epith Cells 0-4 /hpf (0-5) H 11/04/22 13:00 Amorphous Sediment 1+ /hpf 11/04/22 13:00 Urine Bacteria Trace /hpf (NONE) 11/04/22 13:00 EKG Data EKG 2: I personally reviewed and interpreted this EKG as follows: EKG interpretation date: 11/04/22 EKG interpretation time: 14:00 Prior EKG tracings: available for review (No change from previous) Interpretation: Atrial fibrillation with rate controlled. Ventricular rate 55. Left axis. Nonspecific ST-T changes. Normal QRS. Normal T waves. Normal QT interval. Unchanged from previous EKG. Discharge Plan Discharge Patient Disposition: Home Clinical Impression: Chronic atrial fibrillation, Elevated troponin Syncope Qualifiers: Syncope type: unspecified Qualified Code(s): R55 - Syncope and collapse Condition: Stable Prescriptions: No Action tamsulosin 0.4 mg capsule 0.4 mg PO DAILY@06 citalopram [Celexa] 10 mg tablet 10 mg PO QPM bumetanide 2 mg tablet 2 mg PO BID potassium chloride 20 mEq Tablet Extended Release 20 meq PO BID pantoprazole [Protonix] 40 mg Tablet,Delayed Release (Dr/Ec) 40 mg PO DAILY@06 aspirin 81 mg Tablet,Delayed Release (Dr/Ec) 81 mg PO BEDTIME insulin glargine [Lantus Solostar U-100 Insulin] 100 unit/mL (3 mL) insulin pen 25 unit SUBCUT BID Florajen Acidophilus 20 billion cell Capsule 20,000 mmu cells PO BEDTIME PNV cmb#95-ferrous fumarate-FA [ Multivitamins] 28 mg iron- 800 mcg Tablet 1 tab PO DAILY@06 atorvastatin 40 mg tablet 40 mg PO DAILY@19 diltiazem HCl 120 mg capsule,extended release 24hr 120 mg PO DAILY@06 acetaminophen 500 mg Tablet 500 mg PO Q6H PRN (Reason: Pain) ascorbic acid (vitamin C) [Vitamin C] 500 mg Tablet 500 mg PO QPM nitroglycerin [Nitrostat] 0.4 mg Tablet, Sublingual 0.4 mg SUBLINGUAL Q5M PRN (Reason: Chest Pain) Rx Instructions: do not exceed 3 doses per episode amoxicillin-pot clavulanate 875-125 mg tablet 1 tab PO BID Qty: 14 0RF doxycycline hyclate 100 mg capsule 100 mg PO BID 21 Days Qty: 42 0RF carvedilol 6.25 mg tablet 9.375 mg PO BID hydroxyzine HCl 25 mg tablet 25 mg PO BEDTIME warfarin 1 mg tablet 6 mg PO QPM Vitamin D3 125 mcg (5,000 unit) Tablet 125 mcg PO QAM Farxiga 10 mg tablet 10 mg PO DAILY@06 prednisone 5 mg tablet 5 mg PO QAM Levemir U-100 Insulin 100 unit/mL solution 15 unit SUBCUT BEDTIME Rx Instructions: (NOT STARTED USING YET 11/04/22) Discharge Orders: Discharge ED (Routine); Ordered 11/04/22 Ordered By: Edgar Ramírez Referrals: Ari Pettit M.D [Physician] - Gregoria Cheek FNP [Primary Care Provider] - 11/07/22 Discharge Diet: Cardiac Discharge Activity: Limit activity as instructed Patient Instructions: Syncope (ED) Activity Restrictions/Additional Instructions: Rest for the next 2 to 3 days. Follow-up with coin machine mechanic next week. Return if symptoms worsen. Coding Level of Care Code ED Director And Professor for John Jade
[2022-11-04 14:15] VITALS: BP 138/89
== END 2022-11-04 14:25 | disposition home or self-care (01) ==
PROVIDERS: Emergency Provider Family Medicine; PCP Nurse Practitioner Family
DX: R55 Syncope and collapse (principal); I48.20 Chronic atrial fibrillation, unspecified; R77.8 Other specified abnormalities of plasma proteins; Z79.01 Long term (current) use of anticoagulants; Z79.82 Long term (current) use of aspirin; Z79.4 Long term (current) use of insulin; Z87.891 Personal history of nicotine dependence; I11.0 Hypertensive heart disease with heart failure; I50.9 Heart failure, unspecified; Z86.73 Personal history of transient ischemic attack (TIA), and cerebral infarction without residual deficits; F03.90 Unspecified dementia, unspecified severity, without behavioral disturbance, psychotic disturbance, mood disturbance, and anxiety; E11.9 Type 2 diabetes mellitus without complications; E78.5 Hyperlipidemia, unspecified
CPT/HCPCS: 36415; 71045; 80048; 81001; 83735; 84484; 85025; 85610; 93005; 99285

== ENCOUNTER 2022-11-05 20:36 | Inpatient (IN) | payer MEDICARE, OTHER, SELFPAY ==
[2022-11-05 20:44] VITALS: BP 148/93; PULSE 68; RESP 20; TEMP 34.6; O2SAT 98; BMI 34.0
[2022-11-05 20:59] VITALS: TEMP 35.9
--- NOTE | 2022-11-05 20:59 | W.ED.SYNCOPE ---
Documented by User: Deion Thompson MD 11/09/22 07:08 HPI - Syncope General: Chief Complaint: Syncope Stated Complaint: passing out episodes Time Seen by Provider: 11/05/22 20:59 History of Present Illness: Mr. Loyd is a 67-year-old gentleman with complex past medical history including atrial fibrillation with chronic anticoagulation, restrictive lung disease, thalassemia presenting to the emergency department due to recurrent syncope. Patient is currently undergoing treatment for UTI however feels that it is improving. Yesterday he had an episode of syncope while at rest and was evaluated in the emergency department without clear etiology identified. He had 2 more episodes while sitting today. Patient's reports that he had a pulse oximeter on for one of the episodes and his heart rate dropped into the 30s. He currently feels back to baseline. Denies chest pain or worsening shortness of breath. Denies any new focal neurologic symptoms. Intensity of symptoms when present was severe. Course has improved. No other specific changes in health, exacerbating, or alleviating factors identified. Onset (ago): day(s) Prodromal symptoms: none Witnessed: Yes - by Bystander (family) Context: at rest Injuries sustained associated with event: none Review of Systems General: Reports: 10 or more systems reviewed and unremarkable except in HPI and below PFSH ED PFSH: Medical History Acute cystitis Altered mental status Aortic stenosis Had TAVR replacement 2017 Atrial fibrillation Bilateral renal masses CHF (congestive heart failure) EF 45 by transesophageal echo January 2019 Chronic antibiotic suppression Chronic anticoagulation coumadin Chronic urinary tract infection, suppressed Chronic use of steroids Complex renal cyst Congestive heart failure CVA (cerebral vascular accident) Dementia Diabetes Dyslipidemia Endocarditis history of chronic viridans endocarditis, 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 Essential hypertension Gout High risk medication use arava and chronic steroids 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 Hx of [place] spotted fever Ischemic cardiomyopathy Left ventricular hypertrophy Obesity AJAY (obstructive sleep apnea) Pulmonary HTN Pyelonephritis of right kidney Recurrent UTI Multidrug-resistant organisms Renal calculi Restrictive lung disease Rheumatoid arthritis Skin lesion Thalassemia Surgical History H/O lithotripsy S/P TAVR (transcatheter aortic valve replacement) (~2018) Family History Mother Stroke Father Myocardial infarction Other CAD (coronary artery disease) Chronic kidney disease (CKD) Diabetes Hypertension Social History Smoking and tobacco status: former smoker Quit status (tobacco): has quit using tobacco Year quit tobacco: 2020 - Chewing Tobacco Former quit date comment: Hx of 1/2 can x 50 Years Second hand smoke exposure: No Alcohol intake: former Lives independently: No Household members: spouse Marital status: Current occupational status: retired and disabled History of recent travel: No Current gender identity: Male Physical Exam Const: COMMON NORMALS: patient oriented x3 and alert GENERAL APPEARANCE: cooperative, well developed and ill appearing (Chronically) HENMT: COMMON NORMALS: normocephalic and atraumatic HEAD & SCALP: normocephalic and atraumatic THROAT: posterior oropharynx normal Eye: COMMON NORMALS: conjunctivae normal CONJUNCTIVA: Yes conjunctivae normal SCLERA: sclerae normal Neck/C-Spine: COMMON NORMALS: supple GENERAL: Yes trachea midline Resp: COMMON NORMALS: clear to auscultation bilaterally EFFORT & INSPECTION: Yes able to speak in complete sentences AUSCULTATION: clear to auscultation bilaterally Cardio: COMMON NORMALS: regular rate RATE: regular rate RHYTHM: abnormal rhythm irregularly irregular GI: COMMON NORMALS: Soft to palpation PALPATION: Yes Soft to palpation and No Tenderness to palpation present (GI) Extremity: GENERAL: Yes normal exam except as noted and No edema Neuro: COMMON NORMALS: patient oriented x3, CN's II-XII intact bilaterally, moves all extremities, no focal motor deficits and no sensory deficits noted SENSORIUM/ORIENTATION: Yes alert and No Orientation impaired Psych: COMMON NORMALS: mental status grossly normal and Normal thought process present THOUGHT PROCESS: Normal thought process present Course Vital Signs: Vital signs: Vital Signs Temperature 97.8 F 11/09/22 03:18 Pulse Rate 85 11/09/22 06:00 Respiratory Rate 18 11/09/22 03:18 Blood Pressure 135/77 11/09/22 03:18 Pulse Oximetry 94 11/09/22 03:18 Oxygen Delivery Me thod 11/09/22 03:18 MDM - Syncope Medical Decision Making 67-year-old gentleman with complex history presenting due to what sounds like recurrent cardiogenic syncope with bradycardia. No focal neurologic deficits on exam. EKG notable for atrial fibrillation, nonspecific ST segment abnormalities, no STEMI Labs with no leukocytosis, hemoglobin normal though severely microcytic. Metabolic panel without acute derangement to explain symptoms. Initial troponin is somewhat elevated though similar to recent baseline. Chest x-ray negative for acute infiltrate or pneumothorax. CT head negative for acute pathology. Patient care handed off to Dr. Thomas pending repeat troponin with likely plan for admission. 67-year-old male checked out to me by the previous physician at shift change. This gentleman's had 3 syncopal episodes in 24 hours. He has a history of atrial fibrillation. His rate has been 60 here essentially, but was noticed by his to be 30 during 1 of these episodes at home. With 3 syncopal episodes in 24 hours, warrants further investigation. His laboratory is benign. His troponin did not rise at 2 hours. His chest x-ray shows no abnormality. Head CT is negative. He is on diltiazem and carvedilol. Perhaps this is the issue. At first the patient did not want to stay, but is now amenable to staying after speaking with his . Hospitalist is aware and will see the patient. Medical Records I reviewed the patient's medical records. Lab Data I reviewed the patient's lab results. 11/05/22 21:31 11/05/22 21:31 Radiology Impressions Chest X-Ray 11/05/22 21:07 IMPRESSION: No acute chest abnormality identified. Head CT 11/05/22 21:07 IMPRESSION: 1. Negative for acute intracranial abnormality. 2. No significant change from comparison. Renal Ultrasound 11/06/22 08:16 IMPRESSION: 1. No hydronephrosis in the bilateral kidneys. 2. Complex 7.0 cm partially cystic mass demonstrated in the upper pole of the left kidney. This mass has slightly increased in size when compared to ultrasound examination 07/16/[address] of 07/24/[address]22. Consider repeat CT or follow-up MRI further assess this lesion. Additionally, consider surgical consult. 3. The punctate 1-2 mm right renal calculi demonstrated on CT abdomen of 07/24/2022 is not demonstrated on this examination. Carotid Doppler Study 11/06/22 12:56 IMPRESSION: 1. Mild, less than 50%, bilateral ICA stenoses are noted. 2. The vertebral arteries are patent, with antegrade flow direction bilaterally. REFERENCES: SRU CRITERIA. The degree of internal carotid artery stenosis is based on criteria defined by the Society of Radiologists in Ultrasound (SRU). Normal is no stenosis. Mild is less than 50% stenosis. Moderate is 50-69% stenosis. Severe is greater than 69% stenosis to near occlusion. Near occlusion is a markedly narrowed lumen. Total occlusion is no detectable patent lumen. Laboratory Results WBC 9.7 10^3/uL (4.0-10.0) 11/05/22 21:31 RBC 7.21 10^6/uL (4.1-5.3) H 11/05/22 21:31 Hgb 11.9 g/dL (11.7-16.6) 11/05/22 21: Hct 41.9 % (42.0-52.0) L 11/05/22 21: MCV 58.1 fl (80-94) L 11/05/22 21: MCH 16.5 pg (28.0-34.0) L 11/05/22 21: MCHC 28.4 g/dL (30.0-36.0) L 11/05/22 21: RDW 22.0 % (12.1-15.1) H 11/05/22 21:31 Plt Count 308 10^3/cmm (130-400) 11/05/22 21:31 MPV Not Reportable 11/05/22 21: Neut % (Auto) 64.6 % 11/05/22 21: Lymph % (Auto) 25.6 % 11/05/22 21:31 Vernon % (Auto) 6.8 % 11/05/22 21: Eos % (Auto) 1.8 % 11/05/22 21: Baso % (Auto) 0.8 % 11/05/22 21: Neut # (Auto) 6.26 10^3/uL (1.8-7.7) 11/05/22 21: Lymph # (Auto) 2.5 10^3/uL (0.8-4.8) 11/05/22 21: Vernon # (Auto) 0.7 10^3/uL (0.2-0.9) 12/17/22 21:31 Eos # (Auto) 0.2 10^3/uL (0.0-0.8) 11/05/22 21:31 Baso # (Auto) 0.1 10^3/uL (0.0-0.1) 11/05/22 21:31 Nucleated RBC % (auto) 0 % 11/05/22 21: Nucleated RBCs # 0.0 /100WBC 11/05/22 21:31 Poikilocytosis 2+ H 11/05/22 21:31 Anisocytosis 2+ H 11/05/22 21:31 Microcytosis 1+ H 11/05/22 21:31 Target Cells Trace 11/05/22 21:31 Ovalocytes 1+ H 11/05/22 21:31 Acanthocytes (Spur) 2+ H 11/05/22 21:31 PT 25.00 SECONDS (12.1-14.9) H 11/06/22 14:30 INR 2.22 (0.8-1.2) H 11/06/22 14:30 D-Dimer 13.29 ug/mIFEU (0-0.59) H 11/06/22 03:55 Sodium 137 mmol/L (136-145) 11/05/22 21:31 Potassium 4.2 mmol/L (3.5-5.1) 11/05/22 21:31 Chloride 102 mmol/L (98-107) 11/05/22 21:31 Carbon Dioxide 24 mmol/L (22-29) 11/05/22 21:31 Anion Gap 15.2 (5-19) 11/05/22 21:31 BUN 38 mg/dL (8-23) H 11/05/22 21:31 Creatinine 1.2 mg/dL (0.7-1.2) 11/05/22 21:31 GFR Calculation 60.0 mL/min (90-130) L 11/05/22 21:31 Glucose 167 mg/dL (65-115) H 11/05/22 21:31 POC Glucose 199 mg/dL (70-110) H 11/06/22 11:25 Estimat Average Glucose 166 11/06/22 03:55 Hemoglobin A1c 7.4 % (4.0-6.0) H 11/06/22 03:55 Calculated Osmolality 297 mOsm/kg (285-295) H 11/05/22 21:31 Calcium 9.6 mg/dL (8.5-10.5) 11/05/22 21:31 Magnesium 2.1 mg/dL (1.7-2.3) 11/05/22 21:31 Total Bilirubin 0.5 mg/dL (0.15-1.2) 11/05/22 21:31 AST 19 U/L (0-40) 11/05/22 21:31 ALT 15 U/L (0-41) 11/05/22 21:31 Alkaline Phosphatase 82 U/L (40-130) 11/05/22 21:31 Troponin T Baseline 53 ng/L (0-15) H 11/05/22 21:31 Troponin T 120 Minute 50.43 ng/L (0-15) H 11/05/22 23:25 Delta Troponin T -2.57 ABS# (0-10) L 11/05/22 23:25 Troponin T Hi Sens 6Hr 61.70 ng/L (0-15) H 11/06/22 03:55 Troponin T Hi Sens 6Hr Delta 8.70 ng/L (0-12) 11/06/22 03:55 C-Reactive Protein 5.5 mg/L (0.0-4.9) H 11/06/22 03:55 NT-Pro-B Natriuret Pep 1237 pg/mL (0-125) H 11/05/22 21:31 Total Protein 6.6 g/dL (6.6-8.7) 11/05/22 21:31 Albumin 3.3 g/dL (3.5-5.2) L 11/05/22 21:31 Globulin 3.3 g/dL (1.3-4.6) 11/05/22 21:31 Procalcitonin 0.15 ng/mL (0-0.5) 11/06/22 03:55 TSH 0.94 uIU/mL (0.27-4.20) 11/05/22 21:31 Discharge Plan Discharge Patient Disposition: Placed in Observation Admit Provider: Jenn Oscar Clinical Impression: Syncope, Atrial fibrillation with slow ventricular response Coding Level of Care Code ED Technical Specialist for Chg Fwd Exam Comprehensive Documented by User: Dale Thomas DO 11/06/22 02:14 HPI - Syncope General: Chief Complaint: Syncope Stated Complaint: passing out episodes Time Seen by Provider: 11/05/22 20:59 PFSH ED PFSH: Medical History Acute cystitis Altered mental status Aortic stenosis Had TAVR replacement 2017 Atrial fibrillation Bilateral renal masses CHF (congestive heart failure) EF 45 by transesophageal echo January 2019 Chronic antibiotic suppression Chronic anticoagulation coumadin Chronic urinary tract infection, suppressed Chronic use of steroids Complex renal cyst Congestive heart failure CVA (cerebral vascular accident) Dementia Diabetes Dyslipidemia Endocarditis history of chronic viridans endocarditis, 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 Essential hypertension Gout High risk medication use arava and chronic steroids 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 Hx of [place] spotted fever Ischemic cardiomyopathy Left ventricular hypertrophy Obesity AJAY (obstructive sleep apnea) Pulmonary HTN Pyelonephritis of right kidney Recurrent UTI Multidrug-resistant organisms Renal calculi Restrictive lung disease Rheumatoid arthritis Skin lesion Thalassemia Surgical History H/O lithotripsy S/P TAVR (transcatheter aortic valve replacement) (~2017) Family History Mother Stroke Father Myocardial infarction Other CAD (coronary artery disease) Chronic kidney disease (CKD) Diabetes Hypertension Social History Smoking and tobacco status: former smoker Quit status (tobacco): has quit using tobacco Year quit tobacco: 2019 - Chewing Tobacco Former quit date comment: Hx of 1/2 can x 50 Years Second hand smoke exposure: No Alcohol intake: former Lives independently: No Household members: spouse Marital status: Current occupational status: retired and disabled History of recent travel: No Current gender identity: Male Course Vital Signs: Vital signs: Vital Signs Temperature 97.8 F 11/09/22 03:18 Pulse Rate 85 11/09/22 06:00 Respiratory Rate 18 11/09/22 03:18 Blood Pressure 135/77 11/09/22 03:18 Pulse Oximetry 94 11/09/22 03:18 Oxygen Delivery Me thod 11/09/22 03:18 MDM - Syncope Medical Decision Making 67-year-old male checked out to me by the previous physician at shift change. This gentleman's had 3 syncopal episodes in 24 hours. He has a history of atrial fibrillation. His rate has been 60 here essentially, but was noticed by his to be 30 during 1 of these episodes at home. With 3 syncopal episodes in 24 hours, warrants further investigation. His laboratory is benign. His troponin did not rise at 2 hours. His chest x-ray shows no abnormality. Head CT is negative. He is on diltiazem and carvedilol. Perhaps this is the issue. At first the patient did not want to stay, but is now amenable to staying after speaking with his . Hospitalist is aware and will see the patient. Lab Data 11/05/22 21:31 11/05/22 21:31 Radiology Impressions Chest X-Ray 11/05/22 21:07 IMPRESSION: No acute chest abnormality identified. Head CT 11/05/22 21:07 IMPRESSION: 1. Negative for acute intracranial abnormality. 2. No significant change from comparison. Renal Ultrasound 11/06/22 08:16 IMPRESSION: 1. No hydronephrosis in the bilateral kidneys. 2. Complex 7.0 cm partially cystic mass demonstrated in the upper pole of the left kidney. This mass has slightly increased in size when compared to ultrasound examination 07/16/[address] of 07/24/2022. Consider repeat CT or follow-up MRI further assess this lesion. Additionally, consider surgical consult. 3. The punctate 1-2 mm right renal calculi demonstrated on CT abdomen of 07/24/2022 is not demonstrated on this examination. Carotid Doppler Study 11/06/22 12:56 IMPRESSION: 1. Mild, less than 50%, bilateral ICA stenoses are noted. 2. The vertebral arteries are patent, with antegrade flow direction bilaterally. REFERENCES: SRU CRITERIA. The degree of internal carotid artery stenosis is based on criteria defined by the Society of Radiologists in Ultrasound (SRU). Normal is no stenosis. Mild is less than 50% stenosis. Moderate is 50-69% stenosis. Severe is greater than 69% stenosis to near occlusion. Near occlusion is a markedly narrowed lumen. Total occlusion is no detectable patent lumen. Laboratory Results WBC 9.7 10^3/uL (4.0-10.0) 11/05/22 21:31 RBC 7.21 10^6/uL (4.1-5.3) H 11/05/22 21: Hgb 11.9 g/dL (11.7-16.6) 11/05/22 21: Hct 41.9 % (42.0-52.0) L 11/05/22 21: MCV 58.1 fl (80-94) L 11/05/22 21: MCH 16.5 pg (28.0-34.0) L 11/05/22 21: MCHC 28.4 g/dL (30.0-36.0) L 11/05/22 21: RDW 22.0 % (12.1-15.1) H 11/05/22 21: Plt Count 308 10^3/cmm (130-400) 11/05/22 21: MPV Not Reportable 11/05/22 21: Neut % (Auto) 64.6 % 11/05/22 21: Lymph % (Auto) 25.6 % 11/05/22 21: Vernon % (Auto) 6.8 % 11/05/22 21: Eos % (Auto) 1.8 % 11/05/22 21: Baso % (Auto) 0.8 % 11/05/22 21: Neut # (Auto) 6.26 10^3/uL (1.8-7.7) 11/05/22 21: Lymph # (Auto) 2.5 10^3/uL (0.8-4.8) 11/05/22 21: Vernon # (Auto) 0.7 10^3/uL (0.2-0.9) 11/05/22 21: Eos # (Auto) 0.2 10^3/uL (0.0-0.8) 11/05/22 21: Baso # (Auto) 0.1 10^3/uL (0.0-0.1) 11/05/22 21:31 Nucleated RBC % (auto) 0 % 11/05/22 21:31 Nucleated RBCs # 0.0 /100WBC 11/05/22 21:31 Poikilocytosis 2+ H 11/05/22 21:31 Anisocytosis 2+ H 11/05/22 21:31 Microcytosis 1+ H 11/05/22 21:31 Target Cells Trace 11/05/22 21:31 Ovalocytes 1+ H 11/05/22 21:31 Acanthocytes (Spur) 2+ H 11/05/22 21:31 PT 25.00 SECONDS (12.1-14.9) H 11/06/22 14:30 INR 2.22 (0.8-1.2) H 11/06/22 14:30 D-Dimer 13.29 ug/mIFEU (0-0.59) H 11/06/22 03:55 Sodium 137 mmol/L (136-145) 11/05/22 21:31 Potassium 4.2 mmol/L (3.5-5.1) 11/05/22 21:31 Chloride 102 mmol/L (98-107) 11/05/22 21:31 Carbon Dioxide 24 mmol/L (22-29) 11/05/22 21:31 Anion Gap 15.2 (5-19) 11/05/22 21:31 BUN 38 mg/dL (8-23) H 11/05/22 21:31 Creatinine 1.2 mg/dL (0.7-1.2) 11/05/22 21:31 GFR Calculation 60.0 mL/min (90-130) L 11/05/22 21:31 Glucose 167 mg/dL (65-115) H 11/05/22 21:31 POC Glucose 199 mg/dL (70-110) H 11/06/22 11:25 Estimat Average Glucose 166 11/06/22 03:55 Hemoglobin A1c 7.4 % (4.0-6.0) H 11/06/22 03:55 Calculated Osmolality 297 mOsm/kg (285-295) H 11/05/22 21:31 Calcium 9.6 mg/dL (8.5-10.5) 11/05/22 21:31 Magnesium 2.1 mg/dL (1.7-2.3) 11/05/22 21:31 Total Bilirubin 0.5 mg/dL (0.15-1.2) 11/05/22 21:31 AST 19 U/L (0-40) 11/05/22 21:31 ALT 15 U/L (0-41) 11/05/22 21:31 Alkaline Phosphatase 82 U/L (40-130) 11/05/22 21:31 Troponin T Baseline 53 ng/L (0-15) H 11/05/22 21:31 Troponin T 120 Minute 50.43 ng/L (0-15) H 11/05/22 23:25 Delta Troponin T -2.57 ABS# (0-10) L 11/05/22 23:25 Troponin T Hi Sens 6Hr 61.70 ng/L (0-15) H 11/06/22 03:55 Troponin T Hi Sens 6Hr Delta 8.70 ng/L (0-12) 11/06/22 03:55 C-Reactive Protein 5.5 mg/L (0.0-4.9) H 11/06/22 03:55 NT-Pro-B Natriuret Pep 1237 pg/mL (0-125) H 11/05/22 21:31 Total Protein 6.6 g/dL (6.6-8.7) 11/05/22 21:31 Albumin 3.3 g/dL (3.5-5.2) L 11/05/22 21:31 Globulin 3.3 g/dL (1.3-4.6) 11/05/22 21:31 Procalcitonin 0.15 ng/mL (0-0.5) 11/06/22 03:55 TSH 0.94 uIU/mL (0.27-4.20) 11/05/22 21:31 Discharge Plan Discharge Patient Disposition: Placed in Observation Admit Provider: Jenn Oscar Clinical Impression: Syncope, Atrial fibrillation with slow ventricular response Coding Level of Care Code ED Technical Specialist for Janyg Fwd Exam Comprehensive
--- NOTE | 2022-11-05 21:04 | ECG_ITS ---
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1955 Requested By: Deion Thompson Order Number: [id number] Reading MD: Sudheer Simon Measurements Intervals [place] Rate: 74 P: 0 RI: 0 QRS: 3 QRSD: 94 T: 162 QT: 397 QTc: 441 Interpretive Statements ATRIAL FIBRILLATION NONSPECIFIC ST & T-WAVE ABNORMALITY INTERPRETATION BASED ON A DEFAULT AGE OF 40 YEARS Compared to ECG 11/04/2022 13:57:25 Left ventricular hypertrophy no longer present T-wave abnormality still present Electronically Signed On 11-06-2022 15:15:25 BLADDER CHANGER by Sudheer Simon [id number] f
--- NOTE | 2022-11-05 21:07 | CTR_ITS ---
PROCEDURE INFORMATION: Exam: CT Head Without Contrast Exam date and time: 11/05/2022 10:36 PM Age: 67 years old Clinical indication: Other: Syncope TECHNIQUE: Imaging protocol: Computed tomography of the head without contrast. Radiation optimization: All CT scans at this facility use at least one of these dose optimization techniques: automated exposure control; mA and/or kV adjustment per patient size (includes targeted exams where dose is matched to clinical indication); or iterative reconstruction. COMPARISON: CT head wo con* [id number] 07/24/2022 6:33 PM RADIATION DOSE METRICS: Total DLP (mGy-cm): 1204.18 FINDINGS: Brain: There is moderate cerebral atrophy. There is moderate diffuse heterogeneity of the white matter attenuation, consistent with chronic white matter ischemic changes. Left frontal lobe encephalomalacia. Negative for intracranial hemorrhage. Negative for intracranial mass. Right posteroinferior cerebellum encephalomalacia. Cerebral ventricles: No ventriculomegaly. Paranasal sinuses: Visualized sinuses are unremarkable. No fluid levels. Mastoid air cells: Visualized mastoid air cells are well aerated. Bones/joints: Unremarkable. No acute fracture. Soft tissues: Unremarkable. CT/CT head wo con* [id number] IMPRESSION: 1. Negative for acute intracranial abnormality. 2. No significant change from comparison.
--- NOTE | 2022-11-05 21:07 | XRR_ITS ---
PROCEDURE INFORMATION: Exam: XR Chest Exam date and time: 11/05/2022 9:19 PM Age: 67 years old Clinical indication: Apnea; Additional info: Syncope TECHNIQUE: Imaging protocol: Radiologic exam of the chest. Views: 1 view. COMPARISON: CR XR chest 1V portable [id number] 11/04/2022 12:37 PM FINDINGS: Lungs: Unremarkable. No consolidation. Pleural spaces: Unremarkable. No pleural effusion. No pneumothorax. Heart/Mediastinum: Cardiac enlargement. TAVR. Bones/joints: Unremarkable. XR/XR chest 1V portable [id number] IMPRESSION: No acute chest abnormality identified.
[2022-11-05 21:20] VITALS: PULSE 82; RESP 25; O2SAT 95
[2022-11-05 21:27] VITALS: BP 104/74; BP 113/77; BP 142/82; PULSE 68; PULSE 78; PULSE 96
[2022-11-05 21:39] LABS: Basophils # 0.1 10^3/uL (0.0-0.1); Basophils % 0.8 %; Eosinophils # 0.2 10^3/uL (0.0-0.8); Eosinophils % 1.8 %; Hematocrit 41.9 % (42.0-52.0); Hemoglobin 11.9 g/dL (11.7-16.6); Lymphocytes # 2.5 10^3/uL (0.8-4.8); Lymphocytes % 25.6 %; Mean Corpuscular HGB Conc 28.4 g/dL (30.0-36.0); Mean Corpuscular Hemoglobin 16.5 pg (28.0-34.0); Mean Corpuscular Volume 58.1 fl (80-94); Monocytes # 0.7 10^3/uL (0.2-0.9); Monocytes % 6.8 %; Neutrophils # 6.26 10^3/uL (1.8-7.7); Neutrophils % 64.6 %; Nucleated Red Blood Cells % 0 %; Platelet Count 308 10^3/cmm (130-400); Red Blood Count 7.21 10^6/uL (4.1-5.3); White Blood Count 9.7 10^3/uL (4.0-10.0)
[2022-11-05 22:05] LABS: Troponin(5th) Baseline 53 ng/L (0-15)
[2022-11-05 22:12] LABS: Alanine Aminotransferase 15 U/L (0-41); Albumin Level 3.3 g/dL (3.5-5.2); Alkaline Phosphatase 82 U/L (40-130); Anion Gap 15.2 (5-19); Aspartate Amino Transferase 19 U/L (0-40); Blood Urea Nitrogen 38 mg/dL (8-23); Calcium 9.6 mg/dL (8.5-10.5); Carbon Dioxide 24 mmol/L (22-29); Chloride 102 mmol/L (98-107); Globulin 3.3 g/dL (1.3-4.6); Glucose 167 mg/dL (65-115); Magnesium 2.1 mg/dL (1.7-2.3); NT Pro B Type Natriuretic Pept 1237 pg/mL (0-125); Osmolality Calculated 297 mOsm/kg (285-295); Potassium 4.2 mmol/L (3.5-5.1); Sodium 137 mmol/L (136-145); Thyroid Stimulating Hormone 0.94 uIU/mL (0.27-4.20); Total Bilirubin 0.5 mg/dL (0.15-1.2); Total Protein 6.6 g/dL (6.6-8.7)
[2022-11-05 22:16] LABS: Add RBC Morph Yes
[2022-11-05 22:17] LABS: Anisocytosis 2+; Microcytosis 1+; Poikilocytosis 2+; RBC Morph Comp No
[2022-11-05 22:18] LABS: Acanthocytes 2+; Ovalocytes 1+; Target Cells Trace
[2022-11-05] MEDS: sodium chloride 0.9% 500 ML 999 ML IV (22:20)
--- NOTE | 2022-11-05 23:24 | ECG_ITS ---
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 [facility], [facility], cancer centerKeyMe/store/OM/[id number]
[2022-11-05] MEDS: haloperidol inj 5 mg/mL INJ 1 mL 3 MG IVP (23:46)
[2022-11-05 23:51] LABS: Troponin 5 2HR 50.43 ng/L (0-15)
[2022-11-05 23:56] LABS: Troponin 5 2HR Delta -2.57 ABS# (0-10)
[2022-11-06] VITALS (11 sets, daily range): BP systolic 113–158; BP diastolic 64–96; PULSE 71–101; RESP 15–24; TEMP 35.9–36.6; O2SAT 94–98
--- NOTE | 2022-11-06 02:31 | PC.NURSE ---
Patient's temperature at this time is 97.6 rectally, Bear Hugger applied.
--- NOTE | 2022-11-06 03:07 | ECG_ITS ---
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1955 Requested By: Deion Thompson Order Number: [id number] Reading MD: Sudheer Simon Measurements Intervals [place] Rate: 69 P: 0 DE: 0 QRS: 29 QRSD: 98 T: 224 QT: 376 QTc: 405 Interpretive Statements ATRIAL FIBRILLATION WITH ABERRANT CONDUCTION OR VENTRICULAR PREMATURE COMPLEXES NONSPECIFIC ST & T-WAVE ABNORMALITY Compared to ECG 11/05/2022 23:24:43 Ventricular premature complex(es) now present Aberrant conduction of supraventricular beat(s) now present T-wave abnormality still present Electronically Signed On 11-06-2022 15:40:19 ELECTRICAL PLUMBING SUPERVISOR by Sudheer Simon [id number]
--- NOTE | 2022-11-06 04:18 | PC.NURSE ---
Patient's temp is up to 98.0 oral. Bear Tim removed.
--- NOTE | 2022-11-06 04:21 | PC.NURSE ---
When patient arrived to floor at 0220, temp was 96.7 rectal. Bear hugger blanket was applied. Patient's temp is now up to 98.0 oral, bear hugger removed at this time.
[2022-11-06 06:43] LABS: Glucose Point of Care 136 mg/dL (70-110)
--- NOTE | 2022-11-06 06:55 | PM.HP ---
Providers/Chief Complaint Admitting Physician: Jenn Oscar MD Primary Care Provider: ALTAF Russell Chief Complaint: passing out episodes History of Present Illness Ry Loyd is a 67 year old male with history of TAVR, chronic anticoagulation related to A. fib, chronic UTIs, ESBL, was treated with ertapenem in the past, bilateral renal cyst, liver cirrhosis, presented to the hospital because he was not feeling well. Patient is stating that last night when he got up to go to the bathroom he did not inform his normally she helps him to go to the bathroom, he uses walker went to the bathroom, he voided urine without any difficulty. When he returned in his bed he got up again and wanted to go to the front room at that point he woke up his stating that something is not prior to eating he cannot breathe. As per the his heart rate dipped down to 30s and he was short of breath. Patient is denying chest pain, uses 2 pillows to sleep, does not use oxygen at night, consistent with his medications. Negative delta troponin, EKG showing A. fib slow ventricular response CT head chest x-ray unremarkable He is hemodynamically stable Currently on room air TSH normal, normal CBC and BMP Review of Systems Const: Reports: fatigue Eyes: Denies: change in vision ENMT: Denies: throat pain Card: Denies: chest pain Resp: Reports: dyspnea GI: Denies: abdominal pain or coffee ground emesis : Denies: flank pain Musc: Denies: neck pain Skin/Breast: Reports: rash and changing lesions Neuro: Denies: headache(s) Psych: Reports: anxiety Endo: Denies: polyuria Aaron/Lymph: Denies: easy bruising All/Imm: Denies: urticaria Medications/Allergies Home Medications Medication Instructions Recorded Confirmed Last Taken Type citalopram 10 mg tablet (Celexa) 10 mg PO QPM 12/03/19 11/04/22 11/03/22 History tamsulosin 0.4 mg capsule 0.4 mg PO DAILY@12/03/19 11/04/22 11/04/22 History pantoprazole 40 mg tablet,delayed 40 mg PO DAILY@12/25/19 11/04/22 11/04/22 History release (Protonix) potassium chloride 20 mEq 20 meq PO BID 12/25/19 11/04/22 11/04/22 History tablet,extended release aspirin 81 mg tablet,delayed 81 mg PO BEDTIME 10/10/20 11/04/22 11/03/22 History release atorvastatin 40 mg tablet 40 mg PO DAILY@19 02/17/21 11/04/22 11/03/22 History diltiazem HCl 120 mg 120 mg PO DAILY@06 02/17/21 11/04/22 11/04/22 History capsule,extended release 24 hr bumetanide 2 mg tablet 2 mg PO BID 04/23/21 11/04/22 11/04/22 History Lactobacillus acidophilus 20 20,000 mmu cells PO BEDTIME 07/12/21 11/04/22 11/03/22 History billion cell capsule (Florajen Acidophilus) insulin glargine 100 unit/mL (3 25 unit SUBCUT BID 07/12/21 11/04/22 07/15/22 History mL) subcutaneous pen (Lantus Solostar U-100 Insulin) vit no.95-ferrous 1 tab PO DAILY@07/12/21 11/04/22 11/04/22 History fumarate 28 mg-folic acid 800 mcg tablet ( Multivitamins) acetaminophen 500 mg tablet 500 mg PO Q6H PRN Pain 12/29/21 11/04/22 01/03/22 History ascorbic acid (vitamin C) 500 mg 500 mg PO QPM 07/13/22 11/04/22 11/03/22 History tablet (Vitamin C) nitroglycerin 0.4 mg sublingual 0.4 mg sublingual Q5M PRN Chest 07/13/22 11/04/22 Unknown History tablet (Nitrostat) Pain amoxicillin 875 mg-potassium 1 tab PO BID #14 tabs 10/23/22 11/04/22 11/04/22 Rx clavulanate 125 mg tablet see pharmacy comment doxycycline hyclate 100 mg capsule 100 mg PO BID 21 days #42 caps 10/23/22 11/04/22 11/04/22 Rx see pharmacy comment carvedilol 6.25 mg tablet 9.375 mg PO BID 11/04/22 11/04/22 11/04/22 History cholecalciferol (vitamin D3) 125 125 mcg PO QAM 11/04/22 11/04/22 11/04/22 History mcg (5,000 unit) tablet (Vitamin D3) dapagliflozin 10 mg tablet 10 mg PO DAILY@06 11/04/22 11/04/22 11/04/22 History (Farxiga) hydroxyzine HCl 25 mg tablet 25 mg PO BEDTIME 11/04/22 11/04/22 11/03/22 History insulin detemir U-100 100 unit/mL 15 unit SUBCUT BEDTIME 11/04/22 11/04/22 Unknown History subcutaneous solution (Levemir U-100 Insulin) prednisone 5 mg tablet 5 mg PO QAM 11/04/22 11/04/22 11/04/22 History warfarin 1 mg tablet 6 mg PO QPM 11/04/22 11/04/22 11/03/22 History Allergies Allergy/AdvReac Type Severity Reaction Status Date / Time ceftriaxone [From Rocephin] Allergy Intermediate ALGY-Difficulty Verified 07/27/22 12:40 Breathing levofloxacin [From Levaquin] Allergy Mild ADR-Itching Verified 07/27/22 12:40 iodine Allergy Unknown Unknown Verified 07/27/22 12:40 clopidogrel [From Plavix] AdvReac Intermediate Unknown Verified 07/27/22 12:40 PFSH Acute PFSH: Medical History Acute cystitis Altered mental status Aortic stenosis Had TAVR replacement 2017 Atrial fibrillation Bilateral renal masses CHF (congestive heart failure) EF 45 by transesophageal echo January 2019 Chronic antibiotic suppression Chronic anticoagulation coumadin Chronic urinary tract infection, suppressed Chronic use of steroids Complex renal cyst Congestive heart failure CVA (cerebral vascular accident) Dementia Diabetes Dyslipidemia Endocarditis history of chronic viridans endocarditis, 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 Essential hypertension Gout High risk medication use arava and chronic steroids 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 Hx of [place] spotted fever Ischemic cardiomyopathy Left ventricular hypertrophy Obesity AJAY (obstructive sleep apnea) Pulmonary HTN Pyelonephritis of right kidney Recurrent UTI Multidrug-resistant organisms Renal calculi Restrictive lung disease Rheumatoid arthritis Skin lesion Thalassemia Surgical History H/O lithotripsy S/P TAVR (transcatheter aortic valve replacement) (~2017) Family History Mother Stroke Father Myocardial infarction Other CAD (coronary artery disease) Chronic kidney disease (CKD) Diabetes Hypertension Social History Smoking and tobacco status: former smoker Quit status (tobacco): has quit using tobacco Year quit tobacco: 2019 - Chewing Tobacco Former quit date comment: Hx of 1/2 can x 50 Years Second hand smoke exposure: No Alcohol intake: former Lives independently: No Household members: spouse Marital status: Current occupational status: retired and disabled History of recent travel: No Current gender identity: Male Vitals/I&O/Wt Last Vital Signs Temp 98 F 11/06/22 04:00 Pulse 76 11/06/22 04:00 Resp 17 11/06/22 04:00 BP 119/73 11/06/22 04:00 Pulse Ox 95 11/06/22 04:00 O2 Del Method 11/06/22 02:16 11/05/22 11/05/22 11/06/22 14:59 22:59 06:59 Intake Total 500 / 500 Output Total 225 / 225 Balance 275 / 275 Weight last 48 hrs Weight 110.677 kg Weight 110.677 kg Physical Exam Narrative: Patient is laying supine Pleasant and cooperative Currently without any focal deficits Doing well on room air Variable S1-S2 Hemodynamically stable Clinically looks dry Ventral hernia without pain abdomen is distended No active signs of cellulitis Multiple skin ulcers on extremities without any active signs of cellulitis No genital swelling EOMI, PERRLA Patient is awake and alert No audible stridor or wheezing Data 11/05/22 21:31 11/05/22 21:31 A&P Assessment and plan (1) Thalassemia: Qualifiers: Thalassemia type: unspecified type Qualified Code(s): D56.9 - Thalassemia, unspecified (2) Chronic use of steroids: (3) Rheumatoid arthritis: Qualifiers: Rheumatoid arthritis location: multiple sites Rheumatoid factor presence: with rheumatoid factor Qualified Code(s): M05.79 - Rheumatoid arthritis with rheumatoid factor of multiple sites without organ or systems involvement (4) Dementia: (5) Recurrent UTI: (6) Restrictive lung disease: (7) Atrial fibrillation with slow ventricular response: (8) Pre-syncope: Plan Presyncope Orthostasis positive Clinically patient looks dry Carries history of congestive heart failure, A. fib EKG showing slow ventricular spots with A. fib I would hold his diltiazem and continue Coreg Continue Coumadin Chest x-ray CBC, BMP unremarkable I will cut back on his Bumex clinically patient looks dry, I would use 0.5 mg of Bumex from tomorrow hold diuretics today Liver cirrhosis without active signs of hepatic encephalopathy History of TAVR History of recurrent UTIs(patient was treated with a ertapenem for 2 weeks in the past ESBL Klebsiella) Full code Cardiac diet DVT prophylaxis covered with Coumadin Check INR Consistent carb diet Insulin/sliding scale I do believe patient will need home oxygen evaluation before discharge/nocturnal oximetry study he carries history of restrictive lung disease, possible sleep apnea Attestations Medical Necessity Statement*: Anticipating discharge within 48 hours Time Spent in Patient Care: 40 Coding Level of Care Code Acute Potato Spotter for Chg Fwd Diagnoses Thalassemia D56.9 Thalassemia type: unspecified type Chronic use of steroids Rheumatoid arthritis M05.79 Rheumatoid arthritis location: multiple sites Rheumatoid factor presence: with rheumatoid factor Dementia F03.90 Recurrent UTI N39.0 Restrictive lung disease J98.4 Atrial fibrillation with slow ventricular response I48.91 Pre-syncope R55
--- NOTE | 2022-11-06 06:57 | USCV_ITS ---
Ry Loyd Age: 67 Gender: M : 1955 Exam Date: 11/06/2022 16:06 Ordering Phys: Jenn Oscar MD Technologist: CALLIE Exam Location: [facility] – [place] Indication: syncope BP: 131 / 71 HR: 60 Rhythm: Sinus Technical Quality: Adequate MEASUREMENTS (Male / Female) Normal Values 2D ECHO LV Diastolic Diameter PLAX 4.7 cm 4.2 - 5.9 / 3.9 - 5.3 cm LV Systolic Diameter PLAX 2.9 cm IVS Diastolic Thickness 1.1 cm 0.6 - 1.0 / 0.6 - 0.9 cm IVS Systolic Thickness 1.6 cm LVPW Diastolic Thickness 1.1 cm 0.6 - 1.0 / 0.6 - 0.9 cm LVPW Systolic Thickness 1.6 cm LVOT Diameter 2.2 cm LV Ejection Fraction 2D Teich 67.0 % LV Ejection Fraction MOD 2C 49.1 % LV Ejection Fraction 2C AL 47.6 % LA Diameter 5.9 cm IVC Diameter 1.8 cm M-MODE Aortic Annulus Diameter 2.7 cm LA Ao Ratio MM 2.5 MV E Point Septal Separation 1.0 cm DOPPLER AV Peak Velocity 248.0 cm/s LVOT Peak Velocity 124.0 cm/s AV Area Cont Eq vti 1.7 cm squared AV Area Cont Eq pk 1.9 cm squared MV Area PHT 6.3 cm squared Mitral E to A Ratio 2.2 MV E' Velocity 98.0 cm/s TR Peak Velocity 300.5 cm/s TR Peak Gradient 36.1 mmHg TV Peak E Velocity 62.0 cm/s Right Atrial Pressure 6.0 mmHg Pulmonary Artery Systolic Pressu 42.1 mmHg PV Peak Velocity 66.0 cm/s FINDINGS Left Ventricle Technically limited quality echocardiogram because of poor ultrasonic windows. Left ventricle is normal in size. LV systolic function is normal with EF of 50 to 55%. No regional wall motion abnormalities are seen. Diastolic function is indeterminate because of atrial fibrillation. Right Ventricle Normal in size and function Right Atrium Normal in size Left Atrium Dilated Mitral Valve Mitral valve is thickened. Mild mitral regurgitation. Aortic Valve Bioprosthetic aortic valve is noted. Not well visualized. Mildly increased gradtient across aortic valve with peak gradient of 11.4mmHg. DVI is normal and is 0.43. Mild aortic regurgitation Tricuspid Valve Mild tricuspid regurgitation.RVSP is 40-45mmHg. This is consistent with mild pulmonary hypertension. Pulmonic Valve Not well visualized Pericardium Normal Aorta Normal in size IVC Appears to be normal CONCLUSIONS Technically limited quality echocardiogram because of poor ultrasonic windows. LV systolic function is normal with EF of 50 to 55%. Dilated left atrium Mitral valve is thickened. Mild mitral regurgitation Bioprosthetic aortic valve is seen. Normally functioning valve with a DVI of 0.43. Mild aortic regurgitation. Compared to prior echocardiogram from 09/05/2019, no significant changes are seen. Ari Pettit MD (Electronically Signed) Final Date: 07 November 2022 08:57 S
[2022-11-06] MEDS: lactated ringers 500 ML 999 ML IV (07:58)
[2022-11-06] MEDS: potassium chloride ER 20 mEq Tablet PO (07:58)
[2022-11-06] MEDS: carvedilol 6.25 mg Tablet 9.375 MG PO (07:58)
[2022-11-06 08:02] LABS: D Dimer 13.29 ug/mIFEU (0-0.59)
--- NOTE | 2022-11-06 08:16 | USR_ITS ---
PROCEDURE INFORMATION: Exam: US Retroperitoneal; Complete; Kidneys and Bladder Exam date and time: 11/06/2022 2:58 PM Age: 67 years old Clinical indication: Abnormal findings; Abnormal lab test; Other: Proteus UTI TECHNIQUE: Imaging protocol: Real-time ultrasound of the retroperitoneum with image documentation. Complete exam focused on the kidneys and bladder. COMPARISON: 1. US renal BI* [id number] 07/16/2022 6:[address] kidney stone [id number] 07/24/2022 6:35 PM FINDINGS: Right kidney: Right kidney measures 12.3 cm in length. Multiple simple right renal cysts, measuring up to 2.7 cm in diameter. No hydronephrosis. No solid renal mass. No definite renal calculi demonstrated. Left kidney: Left kidney measures 15.5 cm in length. Complex 7.0 cm cystic mass with thick septations is demonstrated in the upper pole of the left kidney. Additional simple left renal cysts are noted, measuring up to 2.6 cm. No hydronephrosis. No definite renal calculi demonstrated sonographically. Urinary bladder: Unremarkable. US/US renal BI* [id number] IMPRESSION: 1. No hydronephrosis in the bilateral kidneys. 2. Complex 7.0 cm partially cystic mass demonstrated in the upper pole of the left kidney. This mass has slightly increased in size when compared to ultrasound examination 07/16/[address] of 07/24/2022. Consider repeat CT or follow-up MRI further assess this lesion. Additionally, consider surgical consult. 3. The punctate 1-2 mm right renal calculi demonstrated on CT abdomen of 07/24/2022 is not demonstrated on this examination.
[2022-11-06 08:24] LABS: Estmated Average Glucose 166; Hemoglobin A1C 7.4 % (4.0-6.0)
[2022-11-06 09:20] LABS: C Reactive Protein 5.5 mg/L (0.0-4.9)
[2022-11-06 09:27] LABS: Procalcitonin 0.15 ng/mL (0-0.5)
[2022-11-06] MEDS: insulin glargine 100 units/1 mL 25 UNIT SUBCUT ×2 (09:40→17:36)
[2022-11-06] MEDS: ciprofloxacin 500 mg Tablet PO ×2 (09:40→20:21)
[2022-11-06] MEDS: meropenem 1,000 MG in sodium chloride 0.9% (plus) 50 ML 100 MG IV ×2 (09:40→17:36)
[2022-11-06 11:31] LABS: Glucose Point of Care 199 mg/dL (70-110)
--- NOTE | 2022-11-06 12:52 | PM.PN ---
Subjective Subjective: Patient was seen this morning, he sitting up to the side of the bed, alert to person, to place, not to time, he does not know who the president is, he does follow commands, no fevers, no chills -Review of the records show that he presented to the emergency room on 23 October, urine cultures came back ESBL and Proteus, quite resistant, I am not sure if he was treated for these -In addition he had an ER visit on the for syncopal episode, admission was advised however patient declined -He currently denies any chest pain, no lightheadedness, no dizziness Vitals/I&O/Wt Last Vital Signs Temp 97.4 F L 11/06/22 11:23 Pulse 77 11/06/22 11:23 Resp 15 11/06/22 11:23 BP 131/71 11/06/22 11:23 Pulse Ox 97 11/06/22 11:23 O2 Del Method 11/06/22 11:23 11/05/22 11/06/22 11/06/22 22:59 06:59 14:59 Intake Total 500 / 500 910 / 910 Output Total 225 / 225 Balance 275 / 275 910 / 910 Weight last 48 hrs Weight 110.677 kg Weight 110.677 kg Physical Exam Const: COMMON NORMALS: no acute distress ORIENTATION/CONSCIOUSNESS: Yes awake, Yes oriented to person and Yes oriented to place; not oriented to time Resp: COMMON NORMALS: normal respiratory effort, No retractions, No use of accessory muscles and clear to auscultation bilaterally AUSCULTATION: clear to auscultation bilaterally Cardio: COMMON NORMALS: regular rate, regular rhythm, S1 normal heart sound present and S2 normal heart sound present RATE: regular rate RHYTHM: regular rhythm HEART SOUNDS: S1 normal heart sound present and S2 normal heart sound present GI: COMMON NORMALS: Normal to inspection, nondistended, normoactive bowel sounds present and non-tender Extremity: COMMON NORMALS: no pedal edema Neuro: COMMON NORMALS: CN's II-XII intact bilaterally, moves all extremities and no focal motor deficits SENSORIUM/ORIENTATION: Yes oriented to person, Yes oriented to place and No oriented to time Psych: COMMON NORMALS: mental status grossly normal Data 11/05/22 21:31 11/05/22 21:31 Micro: Microbiology 11/06/22 09:03 Blood Culture - Preliminary Blood SPECIMEN COLLECTED 11/06/22 08:55 Blood Culture - Preliminary Blood SPECIMEN COLLECTED A&P Assessment and plan (1) Urinary tract infection due to ESBL Klebsiella: (2) Syncope and collapse: (3) Thalassemia: Qualifiers: Thalassemia type: unspecified type Qualified Code(s): D56.9 - Thalassemia, unspecified (4) Chronic use of steroids: (5) Rheumatoid arthritis: Qualifiers: Rheumatoid arthritis location: multiple sites Rheumatoid factor presence: with rheumatoid factor Qualified Code(s): M05.79 - Rheumatoid arthritis with rheumatoid factor of multiple sites without organ or systems involvement (6) Dementia: (7) Recurrent UTI: (8) Restrictive lung disease: (9) Atrial fibrillation with slow ventricular response: (10) Pre-syncope: Plan Syncope and collapse Based on the history I obtained from patient, and from the chart, notes from his ER visit it sounds like he has had recurrent syncopal episode with collapse which sound like true syncopal episodes Has had 1 other ER visit for syncopal episodes Orthostasis positive Neurochecks, aspiration precautions, and stroke scale Clinically patient looks dry Carries history of congestive heart failure, A. fib EKG showing slow ventricular spots with A. fib I would hold his diltiazem and hold Coreg Continue Coumadin I will cut back on his Bumex clinically patient looks dry, I would use 0.5 mg of Bumex from tomorrow hold diuretics today Cardiac echo Serial EKGs, serial troponins, telemetry monitoring, no complaints of chest pain Carotid artery ultrasound Full code Coumadin for DVT prophylaxis ESBL, Klebsiella pneumonia UTI -Recurrent UTI -Now also growing Proteus -In his July hospitalization he was treated with 2 weeks of ertapenem -This culture was from 23 October, and ER visit, I am not sure if he was treated and patient is not sure -He has a history of recurrent ESBL Klebsiella pneumonia UTIs, he might be a chronic colonizer -However his CT scans in the past as early as July showed 3 mm renal colliculi, a 6 cm exophytic lesion, possible renal cyst -Possibility of infected renal stone? -Especially as he has Proteus in his urine -We will do renal ultrasound -Severe cephalosporin allergy limiting penicillin use, and also has a allergy to Levaquin -Start meropenem for ESBL UTI -Cipro for Proteus Liver cirrhosis without active signs of hepatic encephalopathy History of TAVR Atrial fibrillation, hold beta-becky, hold Cardizem, continue Coumadin Insulin sliding scale Full code Cardiac diet DVT prophylaxis covered with Coumadin Check INR daily Consistent carb diet Attestations Medical Necessity Statement*: Patient requires hospitalization, inpatient, greater than 2 midnights, for syncope, collapse, ESBL pneumonia UTI, liver cirrhosis, TAVR Coding Level of Care Code Acute Sulfate Drier Machine Operator for g Fwd Diagnoses Urinary tract infection due to ESBL Klebsiella N39.0; B96.89 Syncope and collapse R55 Thalassemia D56.9 Thalassemia type: unspecified type Chronic use of steroids Rheumatoid arthritis M05.79 Rheumatoid arthritis location: multiple sites Rheumatoid factor presence: with rheumatoid factor Dementia F03.90 Recurrent UTI N39.0 Restrictive lung disease J98.4 Atrial fibrillation with slow ventricular response I48.91 Pre-syncope R55
--- NOTE | 2022-11-06 12:56 | USR_ITS ---
PROCEDURE INFORMATION: Exam: US Duplex Bilateral Extracranial Arteries, Carotid Arteries Exam date and time: 11/06/2022 3:29 PM Age: 67 years old Clinical indication: Syncope and collapse; Additional info: AMS TECHNIQUE: Imaging protocol: Real-time Duplex ultrasound scan of the bilateral carotid and vertebral arteries combining sampson scale, color Doppler and spectral waveform analysis. Bilateral exam. Exam focused on the carotid arteries. COMPARISON: CT head wo con* [id number] 11/05/2022 10:36 PM FINDINGS: Right common carotid artery: Mild partially calcified plaque. No occlusion or significant stenosis. Waveforms are normal. Right internal carotid artery: Mild partially calcified plaque. No occlusion or significant stenosis. Waveforms are normal. Peak systolic velocity is 61 cm/s. End-diastolic velocity is 19 cm/s. Right ICA/CCA ratio: Within normal limits. 1.19. Right external carotid artery: No stenosis in the origin. Right vertebral artery: Unremarkable. Antegrade flow. Left common carotid artery: Mild partially calcified plaque. No occlusion or significant stenosis. Waveforms are normal. Left internal carotid artery: Mild partially calcified plaque. No occlusion or significant stenosis. Waveforms are normal. Peak systolic velocity is 52 cm/s. End-diastolic velocity is 9 cm/s. Left ICA/CCA ratio: Within normal limits. 1.09. Left external carotid artery: No stenosis in the origin. Left vertebral artery: Unremarkable. Antegrade flow. US/CV carotid duplex BI* [id number] IMPRESSION: 1. Mild, less than 50%, bilateral ICA stenoses are noted. 2. The vertebral arteries are patent, with antegrade flow direction bilaterally. REFERENCES: SRU CRITERIA. The degree of internal carotid artery stenosis is based on criteria defined by the Society of Radiologists in Ultrasound (SRU). Normal is no stenosis. Mild is less than 50% stenosis. Moderate is 50-69% stenosis. Severe is greater than 69% stenosis to near occlusion. Near occlusion is a markedly narrowed lumen. Total occlusion is no detectable patent lumen.
[2022-11-06] MEDS: insulin lispro 100 unit/1 mL SUBCUT ×2 (13:03→17:36)
[2022-11-06 15:07] LABS: INR 2.22 (0.8-1.2)
[2022-11-06] MEDS: warfarin 6 mg Tablet PO (15:24)
[2022-11-06 17:04] LABS: Glucose Point of Care 149 mg/dL (70-110)
[2022-11-06] MEDS: atorvastatin 40 mg Tablet PO (17:36)
[2022-11-06] MEDS: aspirin 81 mg EC Tablet PO (20:21)
[2022-11-06 20:56] LABS: Glucose Point of Care 195 mg/dL (70-110)
[2022-11-07] VITALS (11 sets, daily range): BP systolic 115–165; BP diastolic 55–91; PULSE 77–106; RESP 17–25; TEMP 36.3–36.7; O2SAT 91–99
[2022-11-07] MEDS: meropenem 1,000 MG in sodium chloride 0.9% (plus) 50 ML 100 MG IV ×3 (01:23→18:09)
[2022-11-07 04:20] LABS: Basophils # 0.1 10^3/uL (0.0-0.1); Basophils % 0.8 %; Eosinophils # 0.2 10^3/uL (0.0-0.8); Eosinophils % 2.2 %; Hematocrit 37.6 % (42.0-52.0); Hemoglobin 10.9 g/dL (11.7-16.6); Lymphocytes # 2.3 10^3/uL (0.8-4.8); Lymphocytes % 26.9 %; Mean Corpuscular Hemoglobin 16.7 pg (28.0-34.0); Mean Corpuscular Volume 57.8 fl (80-94); Monocytes # 0.8 10^3/uL (0.2-0.9); Monocytes % 9.1 %; Neutrophils # 5.19 10^3/uL (1.8-7.7); Neutrophils % 60.8 %; Nucleated Red Blood Cells % 0 %; Platelet Count 280 10^3/cmm (130-400); Red Blood Count 6.51 10^6/uL (4.1-5.3); Red Cell Distribution Width 21.4 % (12.1-15.1); White Blood Count 8.6 10^3/uL (4.0-10.0)
[2022-11-07 04:30] LABS: INR 2.43 (0.8-1.2)
[2022-11-07 04:53] LABS: Blood Urea Nitrogen 36 mg/dL (8-23); Calcium 9.9 mg/dL (8.5-10.5); Carbon Dioxide 27 mmol/L (22-29); Chloride 109 mmol/L (98-107); Glomerular Filtration Rate 66.4 mL/min (90-130); Glucose 151 mg/dL (65-115); Osmolality Calculated 309 mOsm/kg (285-295); Sodium 144 mmol/L (136-145)
[2022-11-07 05:10] LABS: Add RBC Morph Yes
[2022-11-07 05:11] LABS: Anisocytosis 3+; Poikilocytosis 2+; RBC Morph Comp No; Tear Drop Cells Trace
[2022-11-07 05:12] LABS: Acanthocytes 2+; Burr Cells 1+; Target Cells Trace
[2022-11-07] MEDS: pantoprazole DR 40 mg Tablet PO (06:37)
[2022-11-07] MEDS: potassium chloride ER 20 mEq Tablet PO (08:57)
[2022-11-07 09:08] LABS: Glucose Point of Care 169 mg/dL (70-110)
[2022-11-07] MEDS: ciprofloxacin 500 mg Tablet PO ×2 (09:11→20:40)
[2022-11-07] MEDS: insulin lispro 100 unit/1 mL SUBCUT ×2 (09:26→14:26)
[2022-11-07] MEDS: insulin glargine 100 units/1 mL 25 UNIT SUBCUT ×2 (09:30→18:14)
[2022-11-07 11:28] LABS: Glucose Point of Care 164 mg/dL (70-110)
--- NOTE | 2022-11-07 12:12 | PC.CHAP ---
Pastoral Care Encounter/Spiritual Assessment Type of Contact [] Declined leather goods assembler visit [] Patient/Family/Request visit [] Outpatient visit [] Follow-up visit [] Physician referral [] Code/Alert [x] Routine visit [] Staff referral [] Actively dying [] Patient sleeping [] Family support [] [] Out of room [] Palliative care [] [] Receiving care in room [] Pre-surgical visit [] Trauma [] Long length of stay [] ICU visit [] Other: Relational/Emotional Strength [x] Patient feels connected with others/family/visitors/staff [] Distress [] Loneliness/isolation [] Abandonment Spirituality of Patient [x] Person of Nellie [x] Attends Sabianism of their Nellie [x] Believes in Prayer [] Reads Bible or Jainism materials [] There are Spiritual issues to be addressed Retinal Angiographer Interventions [x] Prayer [x] Active listening [] Non-anxious presence [x] Spiritual/emotional support [] Crisis/trauma care [] Spiritual counseling [] Bereavement support [] Provided bereavement packet [] Provided Bible/devotional materials [] Provided toy/stuffed animal, coloring book to patient or family member [] Provided Communion [] Anointing/[place] [] Salvation [x] Completed spiritual assessment [] Other: x Impact on Illness or Injury [] Angry [] Fearful [] Anxious [] Often cries [] Exhaustion [] Unable to work [] Unable to attend anabaptist [] Unable to walk/stand [] Unable to read [] Unable to drive [] Unable to eat/drink [] Unable to sleep [] Unable to be with family [] Patient intubated [] Other: Summary Time spent with patient 10 min
[2022-11-07] MEDS: warfarin 6 mg Tablet PO (15:15)
--- NOTE | 2022-11-07 16:53 | PM.PN ---
Subjective Subjective: Patient was seen and examined this morning, still has some degree of confusion, orthostatic vital sign done last evening was positive.Currently afebrile. Medications: Medication Review Details: Generic Name Dose Route Start Last Admin Trade Name Giovany PRN Reason Stop Dose Admin Aspirin 81 mg 11/06/22 21:00 11/06/22 20:21 Aspirin 81 Mg Ec Tablet PO 81 mg BEDTIME PADMAJA Administration Atorvastatin Calci um 40 mg 11/06/22 19:00 11/06/22 17:36 Atorvastatin 40 Mg Tablet PO 40 mg DAILY@19 PADMAJA Administration Ciprofloxacin HCl 500 mg 11/06/22 09:00 11/07/22 09:11 Ciprofloxacin 50 0 Mg Tablet PO 500 mg BID@0900,2100 PADMAJA Administration Protocol Meropenem 1,000 mg / Sodium 50 mls @ 100 mls/ hr 11/06/22 10:00 11/07/22 10:46 Chloride IV Infused Q8H PADMAJA Infusion Insulin Glargine 25 unit 11/06/22 09:00 11/07/22 09:30 Insulin Glargine 100 Units/1 Ml SUBCUT 25 unit BID PADMAJA Administration Insulin Human Lisp ro 0 unit 11/06/22 08:00 11/07/22 14:26 Insulin Lispro 1 00 Unit/1 Ml SUBCUT 2 unit TIDWM PADMAJA Administration Protocol Pantoprazole Sodiu m 40 mg 11/07/22 06:00 11/07/22 06:[address] 40 Mg Tablet PO 40 mg DAILY@06 PADMAJA Administration Potassium Chloride 20 meq 11/06/22 09:00 11/07/22 08:57 Potassium Chlori de Er 20 Meq Table t PO 20 meq DAILY PADMAJA Administration Warfarin Sodium 6 mg 11/06/22 14:00 11/07/22 15:15 Warfarin 6 Mg Ta blet PO 6 mg 1400 PADMAJA Administration Vitals/I&O/Wt Last Vital Signs Temp 97.4 F L 11/07/22 15:47 Pulse 94 11/07/22 15:47 Resp 19 H 11/07/22 15:47 BP 153/77 11/07/22 15:47 Pulse Ox 91 11/07/22 15:47 O2 Del Method 11/07/22 15:47 11/07/22 11/07/22 11/07/22 06:59 14:59 22:59 Intake Total 250 / 1810 650 / 650 Output Total 300 / 300 Balance -50 / 1510 650 / 650 Weight last 48 hrs Weight 111.72 kg Weight 110.677 kg Weight 110.677 kg Physical Exam Narrative: Alert awake, not in acute distress Chest: COMMONS NORMALS: normal inspection of the chest and normal palpation of entire chest wall CHEST: Yes Symmetrical chest wall rise Resp: COMMON NORMALS: normal respiratory effort, No retractions, No use of accessory muscles and clear to auscultation bilaterally EFFORT & INSPECTION: Yes symmetric chest movement AUSCULTATION: clear to auscultation bilaterally Cardio: COMMON NORMALS: regular rate, regular rhythm, S1 normal heart sound present, S2 normal heart sound present, No gallops present (Cardio), No murmurs present (Cardio), No rub (Cardio) and Peripheral pulses 2+ throughout RATE: regular rate RHYTHM: regular rhythm HEART SOUNDS: S1 normal heart sound present and S2 normal heart sound present PERIPHERAL PULSES: Peripheral pulses 2+ throughout GI: COMMON NORMALS: Normal to inspection, nondistended, normoactive bowel sounds present, Soft to palpation, non-tender, No hepatosplenomegaly present and no masses AUSCULTATION: Yes normoactive bowel sounds PALPATION: Yes Soft to palpation and Yes No hepatosplenomegaly present RECTAL EXAM: Yes deferred Extremity: COMMON NORMALS: no clubbing, cyanosis or edema and no pedal edema Data 11/07/22 03:37 11/07/22 03:37 Micro: Microbiology 11/06/22 09:03 Blood Culture - Preliminary Blood NEGATIVE TO DATE 11/06/22 08:55 Blood Culture - Preliminary Blood NEGATIVE TO DATE A&P Assessment and plan (1) Urinary tract infection due to ESBL Klebsiella: (2) Syncope and collapse: (3) Thalassemia: Qualifiers: Thalassemia type: unspecified type Qualified Code(s): D56.9 - Thalassemia, unspecified (4) Chronic use of steroids: (5) Rheumatoid arthritis: Qualifiers: Rheumatoid arthritis location: multiple sites Rheumatoid factor presence: with rheumatoid factor Qualified Code(s): M05.79 - Rheumatoid arthritis with rheumatoid factor of multiple sites without organ or systems involvement (6) Dementia: (7) Recurrent UTI: (8) Restrictive lung disease: (9) Atrial fibrillation with slow ventricular response: (10) Pre-syncope: Plan Syncope and collapse Based on the history I obtained from patient, and from the chart, notes from his ER visit it sounds like he has had recurrent syncopal episode with collapse which sound like true syncopal episodes Has had 1 other ER visit for syncopal episodes Orthostasis positive Neurochecks, aspiration precautions, and stroke scale Clinically patient looks dry Carries history of congestive heart failure, A. fib EKG showing slow ventricular spots with A. fib I would hold his diltiazem and hold Coreg Continue Coumadin I will cut back on his Bumex clinically patient looks dry, I would use 0.5 mg of Bumex from tomorrow hold diuretics today Cardiac echo Serial EKGs, serial troponins, telemetry monitoring, no complaints of chest pain Carotid artery ultrasound Full code Coumadin for DVT prophylaxis ESBL, Klebsiella pneumonia UTI -Recurrent UTI -Now also growing Proteus -In his July hospitalization he was treated with 2 weeks of ertapenem -This culture was from 23 October, and ER visit, I am not sure if he was treated and patient is not sure -He has a history of recurrent ESBL Klebsiella pneumonia UTIs, he might be a chronic colonizer -However his CT scans in the past as early as July showed 3 mm renal colliculi, a 6 cm exophytic lesion, possible renal cyst -Possibility of infected renal stone? -Especially as he has Proteus in his urine -We will do renal ultrasound -Severe cephalosporin allergy limiting penicillin use, and also has a allergy to Levaquin -Start meropenem for ESBL UTI -Cipro for Proteus Liver cirrhosis without active signs of hepatic encephalopathy History of TAVR Atrial fibrillation, hold beta-becky, hold Cardizem, continue Coumadin Insulin sliding scale Full code Cardiac diet DVT prophylaxis covered with Coumadin Check INR daily Consistent carb diet Attestations Medical Necessity Statement*: patient needs to be in hospital for I.V Abxs. Coding Level of Care Code Acute Contact Printer Dry Film for g Fwd Exam Detailed Diagnoses Urinary tract infection due to ESBL Klebsiella N39.0; B96.89 Syncope and collapse R55 Thalassemia D56.9 Thalassemia type: unspecified type Chronic use of steroids Rheumatoid arthritis M05.79 Rheumatoid arthritis location: multiple sites Rheumatoid factor presence: with rheumatoid factor Dementia F03.90 Recurrent UTI N39.0 Restrictive lung disease J98.4 Atrial fibrillation with slow ventricular response I48.91 Pre-syncope R55
[2022-11-07 17:09] LABS: Glucose Point of Care 125 mg/dL (70-110)
[2022-11-07] MEDS: atorvastatin 40 mg Tablet PO (19:20)
[2022-11-07 19:47] LABS: Add Urine Microscopic? NO; Charge for UA Resulting for Rev
[2022-11-07 19:56] LABS: Bilirubin Urine Neg (Negative); Blood Urine Neg (Negative); Glucose Urine UA 4+ (Normal); Ketones Urine Negative (Negative); Leukocyte Esterase Urine Negative (Negative); Nitrate Urine Negative (Negative); Protein Urine Neg (Negative); Specific Gravity, Urine 1.015 (1.005-1.030); Urine Appearance Clear (CLEAR); Urine Color Yellow (Yellow); Urobilinogen Urine Norm (Negative); pH Urine 5 (5-7)
[2022-11-07] MEDS: aspirin 81 mg EC Tablet PO (20:40)
[2022-11-07] MEDS: ondansetron 2 mg/ML SDV 2 mL 4 MG IVP (22:03)
[2022-11-07] MEDS: acetaminophen 500 mg Tablet PO (22:06)
[2022-11-07 22:11] LABS: Glucose Point of Care 174 mg/dL (70-110)
[2022-11-07] MEDS: temazepam 15 mg Capsule PO (22:24)
[2022-11-08] VITALS (12 sets, daily range): BP systolic 120–171; BP diastolic 71–84; PULSE 77–127; RESP 16–20; TEMP 36.3–36.7; O2SAT 93–99
[2022-11-08] MEDS: meropenem 1,000 MG in sodium chloride 0.9% (plus) 50 ML 100 MG IV ×3 (01:20→17:43)
[2022-11-08] MEDS: pantoprazole DR 40 mg Tablet PO (05:09)
[2022-11-08 05:31] LABS: INR 2.55 (0.8-1.2)
[2022-11-08 05:33] LABS: Basophils # 0.1 10^3/uL (0.0-0.1); Basophils % 1.1 %; Eosinophils # 0.3 10^3/uL (0.0-0.8); Eosinophils % 3.4 %; Hematocrit 37.4 % (42.0-52.0); Hemoglobin 10.9 g/dL (11.7-16.6); Lymphocytes # 1.9 10^3/uL (0.8-4.8); Lymphocytes % 25.4 %; Mean Corpuscular HGB Conc 29.1 g/dL (30.0-36.0); Mean Corpuscular Hemoglobin 16.8 pg (28.0-34.0); Mean Corpuscular Volume 57.5 fl (80-94); Monocytes # 0.7 10^3/uL (0.2-0.9); Monocytes % 9.1 %; Neutrophils # 4.59 10^3/uL (1.8-7.7); Neutrophils % 60.6 %; Nucleated Red Blood Cells % 0 %; Platelet Count 223 10^3/cmm (130-400); Red Cell Distribution Width 22.2 % (12.1-15.1); White Blood Count 7.6 10^3/uL (4.0-10.0)
[2022-11-08 05:45] LABS: Ammonia 26 umol/L (16-60)
[2022-11-08 05:52] LABS: Anion Gap 13.1 (5-19); Blood Urea Nitrogen 28 mg/dL (8-23); Calcium 9.5 mg/dL (8.5-10.5); Carbon Dioxide 25 mmol/L (22-29); Chloride 111 mmol/L (98-107); Glomerular Filtration Rate 83.7 mL/min (90-130); Glucose 98 mg/dL (65-115); Osmolality Calculated 305 mOsm/kg (285-295); Potassium 4.1 mmol/L (3.5-5.1); Sodium 145 mmol/L (136-145)
[2022-11-08 07:45] LABS: Glucose Point of Care 150 mg/dL (70-110)
[2022-11-08] MEDS: ondansetron 2 mg/ML SDV 2 mL 4 MG IVP (09:11)
[2022-11-08] MEDS: potassium chloride ER 20 mEq Tablet PO (09:11)
[2022-11-08] MEDS: insulin glargine 100 units/1 mL 25 UNIT SUBCUT ×2 (09:11→17:41)
[2022-11-08] MEDS: bumetanide 1 mg Tablet 0.5 MG PO (09:11)
[2022-11-08] MEDS: insulin lispro 100 unit/1 mL SUBCUT ×2 (09:13→17:43)
[2022-11-08] MEDS: ciprofloxacin 500 mg Tablet PO ×2 (09:16→20:31)
[2022-11-08 12:03] LABS: Glucose Point of Care 141 mg/dL (70-110)
[2022-11-08] MEDS: predniSONE 5 mg Tablet PO (14:13)
[2022-11-08] MEDS: warfarin 6 mg Tablet PO (14:15)
--- NOTE | 2022-11-08 16:27 | PM.PN ---
Subjective Subjective: Patient was seen and examined this morning, more alert awake oriented, blood culture so far has remained negative, lately orthostatic vital signs have been negative,patient is working with physical therapy. Bumex has been resumed at a lower dose of 0.5. Will resume Cardizem, continue to hold carvedilol. Medications: Medication Review Details: Generic Name Dose Route Start Last Admin Trade Name Mikalq PRN Reason Stop Dose Admin Acetaminophen 500 mg 11/06/22 06:55 11/07/22 22:06 Acetaminophen 50 0 Mg Tablet PO 500 mg Q4H PRN Administration fever Aspirin 81 mg 11/06/22 21:00 11/07/22 20:40 Aspirin 81 Mg Ec Tablet PO 81 mg BEDTIME PADMAJA Administration Atorvastatin Calci um 40 mg 11/06/22 19:00 11/07/22 19:20 Atorvastatin 40 Mg Tablet PO 40 mg DAILY@19 PADMAJA Administration Bumetanide 0.5 mg 11/08/22 09:00 11/08/22 09:11 Bumetanide 1 Mg Tablet PO 0.5 mg DAILY PADMAJA Administration Ciprofloxacin HCl 500 mg 11/06/22 09:00 11/08/22 09:16 Ciprofloxacin 50 0 Mg Tablet PO 500 mg BID@0900,2100 PADMAJA Administration Protocol Meropenem 1,000 mg / Sodium 50 mls @ 100 mls/ hr 11/06/22 10:00 11/08/22 09:40 Chloride IV Infused Q8H PADMAJA Infusion Insulin Glargine 25 unit 11/06/22 09:00 11/08/22 09:11 Insulin Glargine 100 Units/1 Ml SUBCUT 25 unit BID PADMAJA Administration Insulin Human Lisp ro 0 unit 11/06/22 08:00 11/08/22 11:25 Insulin Lispro 1 00 Unit/1 Ml SUBCUT Not Given TIDWM PADMAJA Protocol Ondansetron HCl 4 mg 11/06/22 06:55 11/08/22 09:11 Ondansetron 2 Mg /Ml Sdv 2 Ml IVP 4 mg Q6H PRN Administration NAUSEA AND VOMITI NG Pantoprazole Sodiu m 40 mg 11/07/22 06:00 11/08/22 05:[address] 40 Mg Tablet PO 40 mg DAILY@06 PADMAJA Administration Potassium Chloride 20 meq 11/06/22 09:00 11/08/22 09:11 Potassium Chlori de Er 20 Meq Table t PO 20 meq DAILY PADMAJA Administration Prednisone 5 mg 11/08/22 13:40 11/08/22 14:13 Prednisone 5 Mg Tablet PO 5 mg QAM PADMAJA Administration Warfarin Sodium 6 mg 11/06/22 14:00 11/08/22 14:15 Warfarin 6 Mg Ta blet PO 6 mg 1400 PADMAJA Administration Vitals/I&O/Wt Last Vital Signs Temp 98.1 F 11/08/22 15:31 Pulse 111 H 11/08/22 15:31 Resp 18 11/08/22 15:31 BP 128/82 11/08/22 15:31 Pulse Ox 97 11/08/22 15:31 O2 Del Method 11/08/22 15:31 11/08/22 11/08/22 11/08/22 06:59 14:59 22:59 Intake Total 50 / 990 290 / 290 Balance 50 / 990 290 / 290 Weight last 48 hrs Weight 111.72 kg Physical Exam Narrative: Alert awake, not in acute distress Chest: COMMONS NORMALS: normal inspection of the chest and normal palpation of entire chest wall CHEST: Yes Symmetrical chest wall rise Resp: COMMON NORMALS: normal respiratory effort, No retractions, No use of accessory muscles and clear to auscultation bilaterally EFFORT & INSPECTION: Yes symmetric chest movement AUSCULTATION: clear to auscultation bilaterally Cardio: COMMON NORMALS: regular rate, regular rhythm, S1 normal heart sound present, S2 normal heart sound present, No gallops present (Cardio), No murmurs present (Cardio), No rub (Cardio) and Peripheral pulses 2+ throughout RATE: regular rate RHYTHM: regular rhythm HEART SOUNDS: S1 normal heart sound present and S2 normal heart sound present PERIPHERAL PULSES: Peripheral pulses 2+ throughout GI: COMMON NORMALS: Normal to inspection, nondistended, normoactive bowel sounds present, Soft to palpation, non-tender, No hepatosplenomegaly present and no masses AUSCULTATION: Yes normoactive bowel sounds PALPATION: Yes Soft to palpation and Yes No hepatosplenomegaly present RECTAL EXAM: Yes deferred Extremity: COMMON NORMALS: no clubbing, cyanosis or edema and no pedal edema Data 11/08/22 04:17 11/08/22 04:17 A&P Assessment and plan (1) Urinary tract infection due to ESBL Klebsiella: (2) Syncope and collapse: (3) Thalassemia: Qualifiers: Thalassemia type: unspecified type Qualified Code(s): D56.9 - Thalassemia, unspecified (4) Chronic use of steroids: (5) Rheumatoid arthritis: Qualifiers: Rheumatoid arthritis location: multiple sites Rheumatoid factor presence: with rheumatoid factor Qualified Code(s): M05.79 - Rheumatoid arthritis with rheumatoid factor of multiple sites without organ or systems involvement (6) Dementia: (7) Recurrent UTI: (8) Restrictive lung disease: (9) Atrial fibrillation with slow ventricular response: (10) Pre-syncope: Plan Syncope and collapse Based on the history I obtained from patient, and from the chart, notes from his ER visit it sounds like he has had recurrent syncopal episode with collapse which sound like true syncopal episodes Has had 1 other ER visit for syncopal episodes Orthostasis positive Neurochecks, aspiration precautions, and stroke scale Clinically patient looks dry Carries history of congestive heart failure, A. fib EKG showing slow ventricular spots with A. fib I would hold his diltiazem and hold Coreg Continue Coumadin I will cut back on his Bumex clinically patient looks dry, I would use 0.5 mg of Bumex from tomorrow hold diuretics today Cardiac echo Serial EKGs, serial troponins, telemetry monitoring, no complaints of chest pain Carotid artery ultrasound Full code Coumadin for DVT prophylaxis ESBL, Klebsiella pneumonia UTI -Recurrent UTI -Now also growing Proteus -In his July hospitalization he was treated with 2 weeks of ertapenem -This culture was from 23 October, and ER visit, I am not sure if he was treated and patient is not sure -He has a history of recurrent ESBL Klebsiella pneumonia UTIs, he might be a chronic colonizer -However his CT scans in the past as early as July showed 3 mm renal colliculi, a 6 cm exophytic lesion, possible renal cyst -Possibility of infected renal stone? -Especially as he has Proteus in his urine -We will do renal ultrasound -Severe cephalosporin allergy limiting penicillin use, and also has a allergy to Levaquin -Start meropenem for ESBL UTI -Cipro for Proteus Liver cirrhosis without active signs of hepatic encephalopathy History of TAVR Atrial fibrillation, hold beta-becky, hold Cardizem, continue Coumadin Insulin sliding scale Full code Cardiac diet DVT prophylaxis covered with Coumadin Check INR daily Consistent carb diet Attestations Medical Necessity Statement*: Patient is to be in hospital for IV antibiotics, awaiting blood culture results. Coding Level of Care Code Acute Comparison Shopper for Chg Fwd Exam Detailed Diagnoses Urinary tract infection due to ESBL Klebsiella N39.0; B96.89 Syncope and collapse R55 Thalassemia D56.9 Thalassemia type: unspecified type Chronic use of steroids Rheumatoid arthritis M05.79 Rheumatoid arthritis location: multiple sites Rheumatoid factor presence: with rheumatoid factor Dementia F03.90 Recurrent UTI N39.0 Restrictive lung disease J98.4 Atrial fibrillation with slow ventricular response I48.91 Pre-syncope R55
[2022-11-08 17:34] LABS: Glucose Point of Care 157 mg/dL (70-110)
[2022-11-08] MEDS: citalopram 20 mg Tablet 10 MG PO (17:41)
[2022-11-08] MEDS: atorvastatin 40 mg Tablet PO (17:41)
--- NOTE | 2022-11-08 18:15 | PC.NURSE ---
patient refused to do ortho vitals with me. natalie tried several times today with him.
[2022-11-08] MEDS: aspirin 81 mg EC Tablet PO (20:31)
[2022-11-08] MEDS: hyDROXYzine 25 mg Capsule PO (20:31)
[2022-11-08 22:56] LABS: Glucose Point of Care 234 mg/dL (70-110)
[2022-11-09] VITALS: BP 160/81; PULSE 87; RESP 17; TEMP 36.5; O2SAT 94
[2022-11-09] MEDS: meropenem 1,000 MG in sodium chloride 0.9% (plus) 50 ML 100 MG IV ×2 (02:05→10:27)
[2022-11-09 03:18] VITALS: BP 135/77; PULSE 91; RESP 18; TEMP 36.6; O2SAT 94
[2022-11-09 03:40] LABS: Basophils # 0.1 10^3/uL (0.0-0.1); Basophils % 0.7 %; Eosinophils # 0.2 10^3/uL (0.0-0.8); Hematocrit 38.7 % (42.0-52.0); Hemoglobin 11.1 g/dL (11.7-16.6); Lymphocytes # 1.9 10^3/uL (0.8-4.8); Lymphocytes % 21.7 %; Mean Corpuscular HGB Conc 28.7 g/dL (30.0-36.0); Mean Corpuscular Hemoglobin 16.7 pg (28.0-34.0); Mean Corpuscular Volume 58.3 fl (80-94); Monocytes # 0.7 10^3/uL (0.2-0.9); Monocytes % 7.5 %; Neutrophils # 6.08 10^3/uL (1.8-7.7); Neutrophils % 67.8 %; Nucleated Red Blood Cells % 0 %; Platelet Count 220 10^3/cmm (130-400); Red Blood Count 6.64 10^6/uL (4.1-5.3)
[2022-11-09 03:52] LABS: INR 2.44 (0.8-1.2)
[2022-11-09 03:57] LABS: Anion Gap 12.6 (5-19); Blood Urea Nitrogen 25 mg/dL (8-23); Calcium 9.3 mg/dL (8.5-10.5); Carbon Dioxide 24 mmol/L (22-29); Chloride 105 mmol/L (98-107); Glomerular Filtration Rate 83.7 mL/min (90-130); Glucose 158 mg/dL (65-115); Osmolality Calculated 292 mOsm/kg (285-295); Potassium 4.6 mmol/L (3.5-5.1); Sodium 137 mmol/L (136-145)
[2022-11-09 04:00] LABS: Ammonia 31 umol/L (16-60)
[2022-11-09 06:00] VITALS: PULSE 85
[2022-11-09] MEDS: dilTIAZem ER (24HR) 120 mg Capsule PO (06:07)
[2022-11-09] MEDS: predniSONE 5 mg Tablet PO (06:07)
[2022-11-09] MEDS: pantoprazole DR 40 mg Tablet PO (06:07)
[2022-11-09 06:57] LABS: Glucose Point of Care 124 mg/dL (70-110)
[2022-11-09 08:00] VITALS: BP 134/89; BP 144/72; BP 150/87; PULSE 79; PULSE 88; PULSE 90; RESP 18; TEMP 36.6; O2SAT 97
[2022-11-09 08:45] VITALS: PULSE 77; RESP 16; O2SAT 96
--- NOTE | 2022-11-09 09:07 | PC.SOCIAL ---
IMM update IMM updated with patient and . Copy Pg 2 provided. Verbalized an understanding. Initialled, dated, timed, and placed in chart.
[2022-11-09] MEDS: insulin glargine 100 units/1 mL 25 UNIT SUBCUT (09:43)
[2022-11-09] MEDS: bumetanide 1 mg Tablet 0.5 MG PO (09:46)
[2022-11-09] MEDS: ciprofloxacin 500 mg Tablet PO (09:46)
[2022-11-09] MEDS: potassium chloride ER 20 mEq Tablet PO (09:46)
[2022-11-09 11:36] LABS: Glucose Point of Care 190 mg/dL (70-110)
[2022-11-09] MEDS: insulin lispro 100 unit/1 mL SUBCUT (12:02)
--- NOTE | 2022-11-09 14:36 | PM.DCS ---
Discharge Providers Date of Admission: 11/06/22 16:28 Date of Discharge: November 09, 2022 Attending Provider at Admission: Jenn Oscar MD Attending Provider at Discharge: Leodan Gay MD Primary Care Provider: ALTAF Russell Diagnoses at Discharge Discharge Diagnosis (1) Urinary tract infection due to ESBL Klebsiella: Status: Acute (2) Syncope and collapse: Status: Acute (3) Thalassemia: Status: Chronic Qualifiers: Thalassemia type: unspecified type Qualified Code(s): D56.9 - Thalassemia, unspecified (4) Chronic use of steroids: Status: Chronic (5) Rheumatoid arthritis: Status: Chronic Qualifiers: Rheumatoid arthritis location: multiple sites Rheumatoid factor presence: with rheumatoid factor Qualified Code(s): M05.79 - Rheumatoid arthritis with rheumatoid factor of multiple sites without organ or systems involvement (6) Dementia: Status: Chronic (7) Recurrent UTI: Status: Chronic Permanent problem details: Multidrug-resistant organisms (8) Restrictive lung disease: Status: Chronic (9) Atrial fibrillation with slow ventricular response: Status: Acute (10) Pre-syncope: Status: Acute Reason for Visit Reason for Visit: passing out episodes Hospital Course Hospital Course 67-year-old gentleman with significant past medical history of chronic atrial fibrillation on warfarin, aortic stenosis s/p TAVR, chronic recurrent UTI, CVA diabetes, endocarditis, gout, pulmonary hypertension, ischemic cardiomyopathy, was brought in with chief complaint of syncopal episode, it appears that patient in recent few months patient has experienced few syncopal events, he was admitted for the management of Of same, orthostatic vital sign was positive, initially Cardizem as well as carvedilol was kept on hold, as well as Bumex dose was cut, Orthostatic vital signs were monitored, later at the time of discharge orthostatic vital signs were negative, given the fact that there was no significant bradycardia noted, Cardizem was resumed though carvedilol has been kept on hold on discharge, given the possibility that there may be underlying sick sinus syndrome, he has been sent out on event monitor, on discharge his dose of Bumex has also been cut down to 1 mg p.o. twice daily, as compared to 2 mg p.o. twice daily, during the hospital stay 2D echo was done: Which showed: LV systolic function is normal with EF of 50 to 55%.Dilated left atrium,?Mitral valve is thickened.? Mild mitral regurgitation,Bioprosthetic aortic valve is seen.? Normally functioning valve?with a DVI of 0.43.? Mild aortic regurgitation.Carotid Doppler: Failed to show any flow-limiting stenosis, CT head without contrast: No acute intracranial pathology. Patient has history of recurrent UTI: Past urine culture has also grown ESBL Klebsiella, he has been on IV ertapenem in the past, he has also been on fosfomycin, this time during the hospital stay urine culture grew ESBL E. coli, Blood culture was negative, patient was afebrile, hemodynamically stable, white count was normal, urine culture during this hospital stay: Was negative, though patient was kept on meropenem during the hospital stay, no IV antibiotics was continued He has been continued on fosfomycin, has been given additional 7 days of ciprofloxacin, as urine culture from 10/23 was growing Proteus, looks like chronic colonization.Renal ultrasound done during this hospital stay: No hydronephrosis in the bilateral kidneys.Complex 7.0 cm partially cystic mass demonstrated in the upper pole of the left kidney. This mass has slightly increased in size when compared to ultrasound examination 07/16/2022.The punctate 1-2 mm right renal calculi demonstrated on CT abdomen of 07/24/2022 is not demonstrated on this examination. ?Renal ultrasound was discussed with Dr. Berkowitz, his primary urologist, it was decided that no intervention is needed at that time,will continue to follow Dr. Berkowitz as outpatient. Overall patient has responded well to above medical management and being discharged in stable condition to home. He will follow cardiology as outpatient. Physical Exam Narrative: Alert awake, not in acute distress Chest: COMMONS NORMALS: normal inspection of the chest and normal palpation of entire chest wall CHEST: Yes Symmetrical chest wall rise Resp: COMMON NORMALS: normal respiratory effort, No retractions, No use of accessory muscles and clear to auscultation bilaterally EFFORT & INSPECTION: Yes symmetric chest movement AUSCULTATION: clear to auscultation bilaterally Cardio: COMMON NORMALS: regular rate, regular rhythm, S1 normal heart sound present, S2 normal heart sound present, No gallops present (Cardio), No murmurs present (Cardio), No rub (Cardio) and Peripheral pulses 2+ throughout RATE: regular rate RHYTHM: regular rhythm HEART SOUNDS: S1 normal heart sound present and S2 normal heart sound present PERIPHERAL PULSES: Peripheral pulses 2+ throughout GI: COMMON NORMALS: Normal to inspection, nondistended, normoactive bowel sounds present, Soft to palpation, non-tender, No hepatosplenomegaly present and no masses AUSCULTATION: Yes normoactive bowel sounds PALPATION: Yes Soft to palpation and Yes No hepatosplenomegaly present RECTAL EXAM: Yes deferred Extremity: COMMON NORMALS: no clubbing, cyanosis or edema and no pedal edema Discharge Data Studies Completed and Pending Completed Studies During Hospitalization Category Date Time Status CT head wo con* [id number] Stat Cat Scan 11/05/22 21:07 Completed XR chest 1V portable [id number] Stat Exams 11/05/22 21:07 Completed CV carotid duplex BI* [id number] Routine Ultrasound 11/06/22 12:56 Completed CV. echo complete* [id number] Routine Ultrasound 11/06/22 06:57 Completed US renal BI* [id number] Routine Ultrasound 11/06/22 08:16 Completed Pending at discharge Category Date Time Status Ammonia AM LABS Lab 11/10/22 04:00 Ordered BMP [Basic Metabolic Panel] AM LABS Lab 11/10/22 04:00 Ordered Blood Culture Stat Lab 11/06/22 09:03 Results CBC Auto Diff [Complete Blood Count w/Auto] AM LABS Lab 11/10/22 04:00 Ordered Radiology Impressions Chest X-Ray 11/05/22 21:07 IMPRESSION: No acute chest abnormality identified. Head CT 11/05/22 21:07 IMPRESSION: 1. Negative for acute intracranial abnormality. 2. No significant change from comparison. Renal Ultrasound 11/06/22 08:16 IMPRESSION: 1. No hydronephrosis in the bilateral kidneys. 2. Complex 7.0 cm partially cystic mass demonstrated in the upper pole of the left kidney. This mass has slightly increased in size when compared to ultrasound examination 07/16/[address] of 07/24/2022. Consider repeat CT or follow-up MRI further assess this lesion. Additionally, consider surgical consult. 3. The punctate 1-2 mm right renal calculi demonstrated on CT abdomen of 07/24/2022 is not demonstrated on this examination. Carotid Doppler Study 11/06/22 12:56 IMPRESSION: 1. Mild, less than 50%, bilateral ICA stenoses are noted. 2. The vertebral arteries are patent, with antegrade flow direction bilaterally. REFERENCES: SRU CRITERIA. The degree of internal carotid artery stenosis is based on criteria defined by the Society of Radiologists in Ultrasound (SRU). Normal is no stenosis. Mild is less than 50% stenosis. Moderate is 50-69% stenosis. Severe is greater than 69% stenosis to near occlusion. Near occlusion is a markedly narrowed lumen. Total occlusion is no detectable patent lumen. Laboratory Results WBC 9.0 10^3/uL (4.0-10.0) 11/09/22 02:40 RBC 6.64 10^6/uL (4.1-5.3) H 11/09/22 02:40 Hgb 11.1 g/dL (11.7-16.6) L 11/09/22 02:40 Hct 38.7 % (42.0-52.0) L 11/09/22 02:40 MCV 58.3 fl (80-94) L 11/09/22 02:40 MCH 16.7 pg (28.0-34.0) L 11/09/22 02:40 MCHC 28.7 g/dL (30.0-36.0) L 11/09/22 02:40 RDW 22.0 % (12.1-15.1) H 11/09/22 02:40 Plt Count 220 10^3/cmm (130-400) 11/09/22 02:40 MPV Not Reportable 11/09/22 02:40 Neut % (Auto) 67.8 % 11/09/22 02:40 Lymph % (Auto) 21.7 % 11/09/22 02:40 [place] % (Auto) 7.5 % 11/09/22 02:40 Eos % (Auto) 2.0 % 11/09/22 02:40 Baso % (Auto) 0.7 % 11/09/22 02:40 Neut # (Auto) 6.08 10^3/uL (1.8-7.7) 11/09/22 02:40 Lymph # (Auto) 1.9 10^3/uL (0.8-4.8) 11/09/22 02:40 [place] # (Auto) 0.7 10^3/uL (0.2-0.9) 11/09/22 02:40 Eos # (Auto) 0.2 10^3/uL (0.0-0.8) 11/09/22 02:40 Baso # (Auto) 0.1 10^3/uL (0.0-0.1) 11/09/22 02:40 Nucleated RBC % (auto) 0 % 11/09/22 02:40 Nucleated RBCs # 0.0 /100WBC 11/09/22 02:40 Poikilocytosis 2+ H 11/07/22 03:37 Anisocytosis 3+ H 11/07/22 03:37 Microcytosis 1+ H 11/05/22 21:31 Target Cells Trace 11/07/22 03:37 Tear Drop Cells Trace 11/07/22 03:37 Ovalocytes 1+ H 11/05/22 21:31 [place] Cells 1+ H 11/07/22 03:37 Acanthocytes (Spur) 2+ H 11/07/22 03:37 PT 26.80 SECONDS (12.1-14.9) H 11/09/22 02:40 INR 2.44 (0.8-1.2) H 11/09/22 02:40 D-Dimer 13.29 ug/mIFEU (0-0.59) H 11/06/22 03:55 Sodium 137 mmol/L (136-145) 11/09/22 02:40 Potassium 4.6 mmol/L (3.5-5.1) 11/09/22 02:40 Chloride 105 mmol/L (98-107) 11/09/22 02:40 Carbon Dioxide 24 mmol/L (22-29) 11/09/22 02:40 Anion Gap 12.6 (5-19) 11/09/22 02:40 BUN 25 mg/dL (8-23) H 11/09/22 02:40 Creatinine 0.9 mg/dL (0.7-1.2) 11/09/22 02:40 GFR Calculation 83.7 mL/min (90-130) L 11/09/22 02:40 Glucose 158 mg/dL (65-115) H 11/09/22 02:40 POC Glucose 190 mg/dL (70-110) H 11/09/22 11:22 Estimat Average Glucose 166 11/06/22 03:55 Hemoglobin A1c 7.4 % (4.0-6.0) H 11/06/22 03:55 Calculated Osmolality 292 mOsm/kg (285-295) 11/09/22 02:40 Calcium 9.3 mg/dL (8.5-10.5) 11/09/22 02:40 Magnesium 2.1 mg/dL (1.7-2.3) 11/05/22 21:31 Total Bilirubin 0.5 mg/dL (0.15-1.2) 11/05/22 21:31 AST 19 U/L (0-40) 11/05/22 21:31 ALT 15 U/L (0-41) 11/05/22 21:31 Alkaline Phosphatase 82 U/L (40-130) 11/05/22 21:31 Ammonia 31 umol/L (16-60) 11/09/22 02:40 Troponin T Baseline 53 ng/L (0-15) H 11/05/22 21:31 Troponin T 120 Minute 50.43 ng/L (0-15) H 11/05/22 23:25 Delta Troponin T -2.57 ABS# (0-10) L 11/05/22 23:25 Troponin T Hi Sens 6Hr 61.70 ng/L (0-15) H 11/06/22 03:55 Troponin T Hi Sens 6Hr Delta 8.70 ng/L (0-12) 11/06/22 03:55 C-Reactive Protein 5.5 mg/L (0.0-4.9) H 11/06/22 03:55 NT-Pro-B Natriuret Pep 1237 pg/mL (0-125) H 11/05/22 21:31 Total Protein 6.6 g/dL (6.6-8.7) 11/05/22 21:31 Albumin 3.3 g/dL (3.5-5.2) L 11/05/22 21:31 Globulin 3.3 g/dL (1.3-4.6) 11/05/22 21:31 Procalcitonin 0.15 ng/mL (0-0.5) 11/06/22 03:55 TSH 0.94 uIU/mL (0.27-4.20) 11/05/22 21:31 Urine Color Yellow (Yellow) 11/07/22 04:55 Urine Appearance Clear (CLEAR) 11/07/22 04:55 Urine pH 5 (5-7) 11/07/22 04:55 Ur Specific [place] 1.015 (1.005-1.030) 11/07/22 04:55 Urine Protein Neg (Negative) 11/07/22 04:55 Urine Glucose (UA) 4+ (Normal) H 11/07/22 04:55 Urine Ketones Negative (Negative) 11/07/22 04:55 Urine Blood Neg (Negative) 11/07/22 04:55 Urine Nitrate Negative (Negative) 11/07/22 04:55 Urine Bilirubin Neg (Negative) 11/07/22 04:55 Urine Urobilinogen Norm mg/dL (Negative) 11/07/22 04:55 Ur Leukocyte Esterase Negative (Negative) 11/07/22 04:55 Vitals Last Vital Signs Temp 98 F 11/09/22 08:00 Pulse 77 11/09/22 08:45 Resp 16 11/09/22 08:45 BP 144/72 11/09/22 08:00 Pulse Ox 96 11/09/22 08:45 O2 Del Method 11/09/22 08:45 Discharge Plan Discharge Patient Disposition: Home Health Service Condition: Stable Prescriptions: New amoxicillin 500 mg capsule 500 mg PO BID 180 Days Qty: 360 1RF fosfomycin tromethamine 3 gram packet 3 g PO Q3D 90 Days Qty: 30 4RF bumetanide 1 mg tablet 1 mg PO BID Qty: 60 3RF ciprofloxacin HCl 500 mg tablet 500 mg PO BID 7 Days Qty: 14 0RF Continued tamsulosin 0.4 mg capsule 0.4 mg PO DAILY@06 citalopram [Celexa] 10 mg tablet 10 mg PO QPM potassium chloride 20 mEq Tablet Extended Release 20 meq PO BID pantoprazole [Protonix] 40 mg Tablet,Delayed Release (Dr/Ec) 40 mg PO DAILY@06 aspirin 81 mg Tablet,Delayed Release (Dr/Ec) 81 mg PO BEDTIME insulin glargine [Lantus Solostar U-100 Insulin] 100 unit/mL (3 mL) insulin pen 25 unit SUBCUT BID Florajen Acidophilus 20 billion cell Capsule 20,000 mmu cells PO BEDTIME PNV cmb#95-ferrous fumarate-FA [ Multivitamins] 28 mg iron- 800 mcg Tablet 1 tab PO DAILY@06 atorvastatin 40 mg tablet 40 mg PO DAILY@19 diltiazem HCl 120 mg capsule,extended release 24hr 120 mg PO DAILY@06 acetaminophen 500 mg Tablet 500 mg PO Q6H PRN (Reason: Pain) ascorbic acid (vitamin C) [Vitamin C] 500 mg Tablet 500 mg PO QPM nitroglycerin [Nitrostat] 0.4 mg Tablet, Sublingual 0.4 mg SUBLINGUAL Q5M PRN (Reason: Chest Pain) Rx Instructions: do not exceed 3 doses per episode hydroxyzine HCl 25 mg tablet 25 mg PO BEDTIME warfarin 1 mg tablet 6 mg PO QPM cholecalciferol (vitamin D3) [Vitamin D3] 125 mcg (5,000 unit) Tablet 125 mcg PO QAM Farxiga 10 mg tablet 10 mg PO DAILY@06 prednisone 5 mg tablet 5 mg PO QAM Held carvedilol 6.25 mg tablet 9.375 mg PO BID Hold Instructions: Resume on 11/23/22. Discontinued bumetanide 2 mg tablet 2 mg PO BID amoxicillin-pot clavulanate 875-125 mg tablet 1 tab PO BID Qty: 14 0RF doxycycline hyclate 100 mg capsule 100 mg PO BID 21 Days Qty: 42 0RF Levemir U-100 Insulin 100 unit/mL solution 15 unit SUBCUT BEDTIME Rx Instructions: (NOT STARTED USING YET 11/06/22) Discharge Orders: Discharge Order (Routine); Ordered 11/09/22 Ordered By: Leodan Gay Other Ambulatory Orders: MCT/Event Monitor 21 Days (Routine) Timeframe: 1 Week Facility: [facility] - Location: Radiology Ordered By: Leodan Gay Sleep Study/Titration (Routine) Timeframe: 1 Week Facility: [facility] - Location: [facility] Ordered By: Leodan Gay Referrals: [facility] [Outside] Ari Pettit M.D [Physician] - 12/26/22 2:15 pm Gregoria Cheek FNP [Primary Care Provider] - 11/16/22 11:15 am (PLEASE GO TO [facility] [phone]) Patient Instructions: Ciprofloxacin (By mouth), Bumetanide (By mouth), Amoxicillin (By mouth), Fosfomycin (By mouth), Urinary Tract Infection in Men (GEN), Syncope (GEN), Opioid Safety Discharge Attestations Time Spent in Discharge Care*: greater than 30 min Status at Discharge: Cognitive status at discharge: cognitively intact, Behavioral status at discharge: cooperative, Quality Metrics Clinical Quality Measures [ No reported AMI, CVA or VTE this stay] Coding Level of Care Code Acute Chg FW DC note Exam Detailed Diagnoses Urinary tract infection due to ESBL Klebsiella N39.0; B96.89 Syncope and collapse R55 Thalassemia D56.9 Thalassemia type: unspecified type Chronic use of steroids Rheumatoid arthritis M05.79 Rheumatoid arthritis location: multiple sites Rheumatoid factor presence: with rheumatoid factor Dementia F03.90 Recurrent UTI N39.0 Restrictive lung disease J98.4 Atrial fibrillation with slow ventricular response I48.91 Pre-syncope R55
--- NOTE | 2022-11-09 14:41 | PC.NURSE ---
Discharge Note Patient discharged to home via private vehicle accompanied by . Discharge instructions reviewed with patient and/or sales representative advertising. Mobile pharmacy medications and/or prescriptions provided. Belongings/home medications returned. fosfomycin was called into outpatient pharmacy per 's request on the 340-b plan. [facility].
[2022-11-09 14:43] VITALS: PULSE 77; RESP 16; O2SAT 96
== END 2022-11-09 14:44 | disposition home health service (06) | DRG 690 ==
LOC: ER 11-06 01:16 → MEDSURG 11-06 01:24
PROVIDERS: Emergency Medicine; Family Medicine; Admitting Provider Internal Medicine; Emergency Provider Emergency Medicine; PCP Nurse Practitioner Family; Visit Provider Internal Medicine
DX: N39.0 Urinary tract infection, site not specified (principal); I48.20 Chronic atrial fibrillation, unspecified; B96.1 Klebsiella pneumoniae [K. pneumoniae] as the cause of diseases classified elsewhere; B96.20 Unspecified Escherichia coli [E. coli] as the cause of diseases classified elsewhere; D56.9 Thalassemia, unspecified; Z79.52 Long term (current) use of systemic steroids; M05.89 Other rheumatoid arthritis with rheumatoid factor of multiple sites; F03.90 Unspecified dementia, unspecified severity, without behavioral disturbance, psychotic disturbance, mood disturbance, and anxiety; Z79.01 Long term (current) use of anticoagulants; I35.0 Nonrheumatic aortic (valve) stenosis; Z95.3 Presence of xenogenic heart valve; Z86.73 Personal history of transient ischemic attack (TIA), and cerebral infarction without residual deficits; E11.9 Type 2 diabetes mellitus without complications; M10.9 Gout, unspecified; I27.20 Pulmonary hypertension, unspecified; I25.5 Ischemic cardiomyopathy; I95.1 Orthostatic hypotension; Z87.891 Personal history of nicotine dependence; G47.33 Obstructive sleep apnea (adult) (pediatric); E66.9 Obesity, unspecified; Z68.34 Body mass index [BMI] 34.0-34.9, adult; K74.60 Unspecified cirrhosis of liver; Z87.440 Personal history of urinary (tract) infections; J98.4 Other disorders of lung; Z79.4 Long term (current) use of insulin; Z79.82 Long term (current) use of aspirin
CPT/HCPCS: 36415; 36416; 70450; 71045; 76770; 80048; 80053; 81001; 81003; 82140; 82962; 83036; 83735; 83880; 84145; 84443; 84484; 85025; 85378; 85610; 86140; 87040; 87086; 93005; 93306; 93880; 96372; 97110; 97116; 97161; 97530; 99285; G0378; J1630; J1815; J2185; J2405; J7040; J7120; J7512

== ENCOUNTER 2022-12-14 16:36 | Inpatient (IN) | payer MEDICARE, OTHER, SELFPAY ==
[2022-12-14] VITALS (8 sets, daily range): BP systolic 115–152; BP diastolic 55–95; PULSE 70–92; RESP 16–33; TEMP 36.5–37.8; O2SAT 93–98; BMI 36.2
--- NOTE | 2022-12-14 17:27 | W.ED.WEAKNES ---
Documented by User: Raymon Boyce DO 12/15/22 05:59 HPI - Weakness General: Chief complaint: Weakness Stated complaint: GENERALIZED WEAKNESS Time Seen by Provider: 12/14/22 17:03 Source: patient Mode of arrival: ambulatory History of Present Illness: 67-year-old male presents emergency room is a history of dementia is accompanied by his giving history. She states he has been more confused. Low-grade fever at home no other specific symptoms. No cough short of breath. No vomiting no diarrhea. MD Complaint: generalized weakness Onset (ago): minute(s) Duration: constant Relieving factors: none Exacerbating factors: none Associated symptoms: Reports fever(s); Denies chest pain, chills, confusion, melena, decreased appetite, diaphoresis, dysuria, easy bruising, headache(s), myalgias, nausea, rash, short of breath, syncope or vomiting Review of Systems Const: Reports: fever(s); Denies: chills or diaphoresis ENMT: Denies: throat pain, ear or mastoid pain, nasal discharge or nasal congestion Card: Denies: chest pain or syncope Resp: Denies: dyspnea, productive cough or non-productive cough GI: Denies: nausea, vomiting or melena : Denies: dysuria Skin/Breast: Denies: rash or pruritus Neuro: Denies: headache(s) or confusion Aaron/Lymph: Denies: easy bruising PFS ED PFSH: Medical History Acute cystitis Altered mental status Aortic stenosis Had TAVR replacement 2017 Atrial fibrillation Atrial fibrillation with slow ventricular response Bilateral renal masses CHF (congestive heart failure) EF 45 by transesophageal echo January 2019 Chronic antibiotic suppression Chronic anticoagulation coumadin Chronic urinary tract infection, suppressed Chronic use of steroids Complex renal cyst Congestive heart failure CVA (cerebral vascular accident) Dementia Diabetes Dyslipidemia Endocarditis history of chronic viridans endocarditis, 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 Essential hypertension Gout High risk medication use arava and chronic steroids 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 Hx of [place] spotted fever Ischemic cardiomyopathy Left ventricular hypertrophy Obesity AJAY (obstructive sleep apnea) Pre-syncope Pulmonary HTN Pyelonephritis of right kidney Recurrent UTI Multidrug-resistant organisms Renal calculi Restrictive lung disease Rheumatoid arthritis Rheumatoid arthritis Skin lesion Syncope Syncope and collapse Thalassemia Urinary tract infection due to ESBL Klebsiella Surgical History H/O lithotripsy S/P TAVR (transcatheter aortic valve replacement) (~2018) Family History Mother Stroke Father Myocardial infarction Other CAD (coronary artery disease) Chronic kidney disease (CKD) Diabetes Hypertension Social History Smoking and tobacco status: former smoker Quit status (tobacco): has quit using tobacco Year quit tobacco: 2019 - Chewing Tobacco Former quit date comment: Hx of 1/2 can x 50 Years Second hand smoke exposure: No Alcohol intake: former Lives independently: No Household members: spouse Marital status: Current occupational status: retired and disabled History of recent travel: No Current gender identity: Male Physical Exam Const: COMMON NORMALS: no acute distress GENERAL APPEARANCE: cooperative and comfortable HENMT: COMMON NORMALS: normocephalic, atraumatic and hearing grossly normal bilaterally HEAD & SCALP: normocephalic and atraumatic Resp: COMMON NORMALS: normal respiratory effort, No retractions, No use of accessory muscles and clear to auscultation bilaterally AUSCULTATION: clear to auscultation bilaterally Cardio: COMMON NORMALS: regular rate, regular rhythm and No murmurs present (Cardio) RATE: regular rate RHYTHM: regular rhythm GI: COMMON NORMALS: Soft to palpation and No hepatosplenomegaly present AUSCULTATION: Yes normoactive bowel sounds PALPATION: Yes Soft to palpation, No Tenderness to palpation present (GI), No Guarding due to palpation present (GI) and Yes No hepatosplenomegaly present Extremity: COMMON NORMALS: normal to inspection, capillary refill normal, no clubbing, cyanosis or edema, no calf tenderness and no pedal edema Skin: COMMON NORMALS: no rashes or lesions noted GENERAL SKIN EXAM: no rashes or lesions noted Course Vital Signs: Vital signs: Vital Signs Temperature 100.9 F H 12/15/22 03:35 Pulse Rate 114 H 12/15/22 03:35 Respiratory Rate 26 H 12/15/22 03:35 Blood Pressure 113/76 12/15/22 03:35 Pulse Oximetry 95 12/15/22 03:35 Oxygen Delivery Me thod 12/15/22 03:35 Oxygen Flow Rate 2 12/14/22 16:37 MDM - Weakness Medical Decision Making Care signed out to Dr.. Smith at change of shift. See final notes for diagnosis and disposition. Medical Records I reviewed the patient's medical records. Lab Data 12/14/22 17:44 12/14/22 17:44 Radiology Impressions Chest X-Ray 12/14/22 17:31 IMPRESSION: 1. Cardiomegaly. 2. Emphysematous changes. 3. TAVR. 4. Possible right hilar to lower lobe atelectasis versus minimal infiltrate. Laboratory Results WBC 15.8 10^3/uL (4.0-10.0) H 12/14/22 17:44 RBC 7.10 10^6/uL (4.1-5.3) H 12/14/22 17:44 Hgb 12.0 g/dL (11.7-16.6) 12/14/22 17:44 Hct 41.1 % (42.0-52.0) L 12/14/22 17:44 MCV 57.9 fl (80-94) L 12/14/22 17:44 MCH 16.9 pg (28.0-34.0) L 12/14/22 17:44 MCHC 29.2 g/dL (30.0-36.0) L 12/14/22 17:44 RDW 22.4 % (12.1-15.1) H 12/14/22 17:44 Plt Count 247 10^3/cmm (130-400) 12/14/22 17:44 MPV 11.0 fL (7.4-10.4) H 12/14/22 17:44 Neut % (Auto) 82.9 % 12/14/22 17:44 Lymph % (Auto) 10.3 % 12/14/22 17:44 [place] % (Auto) 5.9 % 12/14/22 17:44 Eos % (Auto) 0.2 % 12/14/22 17:44 Baso % (Auto) 0.3 % 12/14/22 17:44 Neut # (Auto) 13.07 10^3/uL (1.8-7.7) H 12/14/22 17:44 Lymph # (Auto) 1.6 10^3/uL (0.8-4.8) 12/14/22 17:44 [place] # (Auto) 0.9 10^3/uL (0.2-0.9) 12/14/22 17:44 Eos # (Auto) 0.0 10^3/uL (0.0-0.8) 12/14/22 17:44 Baso # (Auto) 0.1 10^3/uL (0.0-0.1) 12/14/22 17:44 Nucleated RBC % (auto) 0 % 12/14/22 17:44 Nucleated RBCs # 0.0 /100WBC 12/14/22 17:44 Hypochromasia 1+ H 12/14/22 17:44 Poikilocytosis 2+ H 12/14/22 17:44 Anisocytosis 2+ H 12/14/22 17:44 Microcytosis 2+ H 12/14/22 17:44 Target Cells 1+ H 12/14/22 17:44 Ovalocytes 1+ H 12/14/22 17:44 Helmet Cells 1+ H 12/14/22 17:44 Sodium 139 mmol/L (136-145) 12/14/22 17:44 Potassium 4.0 mmol/L (3.5-5.1) 12/14/22 17:44 Chloride 100 mmol/L (98-107) 12/14/22 17:44 Carbon Dioxide 28 mmol/L (22-29) 12/14/22 17:44 Anion Gap 15.0 (5-19) 12/14/22 17:44 BUN 40 mg/dL (8-23) H 12/14/22 17:44 Creatinine 1.0 mg/dL (0.7-1.2) 12/14/22 17:44 GFR Calculation 74.1 mL/min (90-130) L 12/14/22 17:44 Glucose 171 mg/dL (65-115) H 12/14/22 17:44 Calculated Osmolality 302 mOsm/kg (285-295) H 12/14/22 17:44 Lactic Acid 1.5 mmol/L (0.5-2.2) 12/14/22 17:44 Lactate 1.5 mmol/L (0.5-2.2) 12/14/22 19:20 Calcium 9.7 mg/dL (8.5-10.5) 12/14/22 17:44 Total Bilirubin 0.9 mg/dL (0.15-1.2) 12/14/22 17:44 AST 24 U/L (0-40) 12/14/22 17:44 ALT 15 U/L (0-41) 12/14/22 17:44 Alkaline Phosphatase 67 U/L (40-130) 12/14/22 17:44 Total Protein 6.2 g/dL (6.6-8.7) L 12/14/22 17:44 Albumin 3.2 g/dL (3.5-5.2) L 12/14/22 17:44 Globulin 3.0 g/dL (1.3-4.6) 12/14/22 17:44 Urine Color Yellow (Yellow) 12/14/22 19:28 Urine Appearance Cloudy (CLEAR) A 12/14/22 19: Urine pH 6 (5-7) 12/14/22 19:28 Ur Specific [place] 1.010 (1.005-1.030) 12/14/22 19:28 Urine Protein 1+ (Negative) H 12/14/22 19:28 Urine Glucose (UA) Norm (Normal) 12/14/22 19: Urine Ketones Negative (Negative) 12/14/22 19: Urine Blood 3+ (Negative) H 12/14/22 19:28 Urine Nitrate Positive (Negative) H 12/14/22 19:28 Urine Bilirubin Neg (Negative) 12/14/22 19: Urine Urobilinogen Neg mg/dL (Negative) 12/14/22 19:28 Ur Leukocyte Esterase 2+ (Negative) H 12/14/22 19:28 Urine RBC Too numerous to cnt /hpf (0-2) H 12/14/22 19:28 Urine WBC Too numerous to cnt /hpf (0-5) H 12/14/22 19:28 Ur Squamous Epith Cells 0-4 /hpf (0-5) H 12/14/22 19:28 Amorphous Sediment Not Reportable 12/14/22 19:28 Urine Bacteria 2+ /hpf (NONE) H 12/14/22 19:28 Influenza Type A Ag negative (Negative) 12/14/22 18:57 Influenza Type B Ag negative (Negative) 12/14/22 18:57 SARS-CoV-2 Ag (Rapid) negative (Negative) 12/14/22 18:57 Discharge Plan Discharge Patient Disposition: Admitted As Inpatient Admit Provider: Anjana Downing Clinical Impression: Acute cystitis Condition: Stable Coding Level of Care Code ED 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 Documented by User: Schuyler Smith MD 12/14/22 20:05 HPI - Weakness General: Chief complaint: Weakness Stated complaint: GENERALIZED WEAKNESS Time Seen by Provider: 12/14/22 17:03 [facility] ED PFSH: Medical History Acute cystitis Altered mental status Aortic stenosis Had TAVR replacement 2017 Atrial fibrillation Atrial fibrillation with slow ventricular response Bilateral renal masses CHF (congestive heart failure) EF 45 by transesophageal echo January 2019 Chronic antibiotic suppression Chronic anticoagulation coumadin Chronic urinary tract infection, suppressed Chronic use of steroids Complex renal cyst Congestive heart failure CVA (cerebral vascular accident) Dementia Diabetes Dyslipidemia Endocarditis history of chronic viridans endocarditis, 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 Essential hypertension Gout High risk medication use arava and chronic steroids 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 Hx of [place] spotted fever Ischemic cardiomyopathy Left ventricular hypertrophy Obesity AJAY (obstructive sleep apnea) Pre-syncope Pulmonary HTN Pyelonephritis of right kidney Recurrent UTI Multidrug-resistant organisms Renal calculi Restrictive lung disease Rheumatoid arthritis Rheumatoid arthritis Skin lesion Syncope Syncope and collapse Thalassemia Urinary tract infection due to ESBL Klebsiella Surgical History H/O lithotripsy S/P TAVR (transcatheter aortic valve replacement) (~2017) Family History Mother Stroke Father Myocardial infarction Other CAD (coronary artery disease) Chronic kidney disease (CKD) Diabetes Hypertension Social History Smoking and tobacco status: former smoker Quit status (tobacco): has quit using tobacco Year quit tobacco: 2019 - Chewing Tobacco Former quit date comment: Hx of 1/2 can x 50 Years Second hand smoke exposure: No Alcohol intake: former Lives independently: No Household members: spouse Marital status: Current occupational status: retired and disabled History of recent travel: No Current gender identity: Male Course Vital Signs: Vital signs: Vital Signs Temperature 100.9 F H 12/15/22 03:35 Pulse Rate 114 H 12/15/22 03:35 Respiratory Rate 26 H 12/15/22 03:35 Blood Pressure 113/76 12/15/22 03:35 Pulse Oximetry 95 12/15/22 03:35 Oxygen Delivery Me thod 12/15/22 03:35 Oxygen Flow Rate 2 12/14/22 16:37 MDM - Weakness Medical Decision Making Care signed out to Dr.. Smith at change of shift. See final notes for diagnosis and disposition. Patient presents for weakness along with a low-grade fever he does have a UTI along with elevated white count lactate blood pressure is normal spoke to hospitalist will admit at this time. Lab Data 12/14/22 17:44 12/14/22 17:44 Radiology Impressions Chest X-Ray 12/14/22 17:31 IMPRESSION: 1. Cardiomegaly. 2. Emphysematous changes. 3. TAVR. 4. Possible right hilar to lower lobe atelectasis versus minimal infiltrate. Laboratory Results WBC 15.8 10^3/uL (4.0-10.0) H 12/14/22 17:44 RBC 7.10 10^6/uL (4.1-5.3) H 12/14/22 17:44 Hgb 12.0 g/dL (11.7-16.6) 12/14/22 17:44 Hct 41.1 % (42.0-52.0) L 12/14/22 17:44 MCV 57.9 fl (80-94) L 12/14/22 17:44 MCH 16.9 pg (28.0-34.0) L 12/14/22 17:44 MCHC 29.2 g/dL (30.0-36.0) L 12/14/22 17:44 RDW 22.4 % (12.1-15.1) H 12/14/22 17:44 Plt Count 247 10^3/cmm (130-400) 12/14/22 17:44 MPV 11.0 fL (7.4-10.4) H 12/14/22 17:44 Neut % (Auto) 82.9 % 12/14/22 17:44 Lymph % (Auto) 10.3 % 12/14/22 17:44 [place] % (Auto) 5.9 % 12/14/22 17:44 Eos % (Auto) 0.2 % 12/14/22 17:44 Baso % (Auto) 0.3 % 12/14/22 17:44 Neut # (Auto) 13.07 10^3/uL (1.8-7.7) H 12/14/22 17:44 Lymph # (Auto) 1.6 10^3/uL (0.8-4.8) 12/14/22 17:44 [place] # (Auto) 0.9 10^3/uL (0.2-0.9) 12/14/22 17:44 Eos # (Auto) 0.0 10^3/uL (0.0-0.8) 12/14/22 17:44 Baso # (Auto) 0.1 10^3/uL (0.0-0.1) 12/14/22 17:44 Nucleated RBC % (auto) 0 % 12/14/22 17:44 Nucleated RBCs # 0.0 /100WBC 12/14/22 17:44 Hypochromasia 1+ H 12/14/22 17:44 Poikilocytosis 2+ H 12/14/22 17:44 Anisocytosis 2+ H 12/14/22 17:44 Microcytosis 2+ H 12/14/22 17:44 Target Cells 1+ H 12/14/22 17:44 Ovalocytes 1+ H 12/14/22 17:44 Helmet Cells 1+ H 12/14/22 17:44 Sodium 139 mmol/L (136-145) 12/14/22 17:44 Potassium 4.0 mmol/L (3.5-5.1) 12/14/22 17:44 Chloride 100 mmol/L (98-107) 12/14/22 17:44 Carbon Dioxide 28 mmol/L (22-29) 12/14/22 17:44 Anion Gap 15.0 (5-19) 12/14/22 17:44 BUN 40 mg/dL (8-23) H 12/14/22 17:44 Creatinine 1.0 mg/dL (0.7-1.2) 12/14/22 17:44 GFR Calculation 74.1 mL/min (90-130) L 12/14/22 17:44 Glucose 171 mg/dL (65-115) H 12/14/22 17:44 Calculated Osmolality 302 mOsm/kg (285-295) H 12/14/22 17:44 Lactic Acid 1.5 mmol/L (0.5-2.2) 12/14/22 17:44 Lactate 1.5 mmol/L (0.5-2.2) 12/14/22 19:20 Calcium 9.7 mg/dL (8.5-10.5) 12/14/22 17:44 Total Bilirubin 0.9 mg/dL (0.15-1.2) 12/14/22 17:44 AST 24 U/L (0-40) 12/14/22 17:44 ALT 15 U/L (0-41) 12/14/22 17:44 Alkaline Phosphatase 67 U/L (40-130) 12/14/22 17:44 Total Protein 6.2 g/dL (6.6-8.7) L 12/14/22 17:44 Albumin 3.2 g/dL (3.5-5.2) L 12/14/22 17:44 Globulin 3.0 g/dL (1.3-4.6) 12/14/22 17:44 Urine Color Yellow (Yellow) 12/14/22 19: Urine Appearance Cloudy (CLEAR) A 12/14/22 19: Urine pH 6 (5-7) 12/14/22 19: Ur Specific [place] 1.010 (1.005-1.030) 12/14/22 19: Urine Protein 1+ (Negative) H 12/14/22 19: Urine Glucose (UA) Norm (Normal) 12/14/22 19: Urine Ketones Negative (Negative) 12/14/22 19: Urine Blood 3+ (Negative) H 12/14/22 19: Urine Nitrate Positive (Negative) H 12/14/22 19:28 Urine Bilirubin Neg (Negative) 12/14/22 19:28 Urine Urobilinogen Neg mg/dL (Negative) 12/14/22 19:28 Ur Leukocyte Esterase 2+ (Negative) H 12/14/22 19:28 Urine RBC Too numerous to cnt /hpf (0-2) H 12/14/22 19:28 Urine WBC Too numerous to cnt /hpf (0-5) H 12/14/22 19:28 Ur Squamous Epith Cells 0-4 /hpf (0-5) H 12/14/22 19:28 Amorphous Sediment Not Reportable 12/14/22 19:28 Urine Bacteria 2+ /hpf (NONE) H 12/14/22 19:28 Influenza Type A Ag negative (Negative) 12/14/22 18:57 Influenza Type B Ag negative (Negative) 12/14/22 18:57 SARS-CoV-2 Ag (Rapid) negative (Negative) 12/14/22 18:57 Discharge Plan Discharge Patient Disposition: Admitted As Inpatient Admit Provider: Anjana Downing Clinical Impression: Acute cystitis Condition: Stable Coding Level of Care Code ED 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
--- NOTE | 2022-12-14 17:31 | XRR_ITS ---
PROCEDURE INFORMATION: Exam: XR Chest Exam date and time: 12/14/2022 5:46 PM Age: 67 years old Clinical indication: Dyspnea; Prior surgery; Surgery date: 6+ months; Surgery type: Heart valve; Additional info: Dyspnea/cough 3-4 days TECHNIQUE: Imaging protocol: Radiologic exam of the chest. Views: 1 view. COMPARISON: CR (CHEST, ) 11/05/2022 9:19 PM FINDINGS: Lungs: Emphysematous changes. Possible right hilar to lower lobe atelectasis versus minimal infiltrate. Pleural spaces: Unremarkable. No pleural effusion. No pneumothorax. Heart/Mediastinum: Cardiomegaly. TAVR. Bones/joints: Unremarkable. XR/XR chest 1V portable [id number] IMPRESSION: 1. Cardiomegaly. 2. Emphysematous changes. 3. TAVR. 4. Possible right hilar to lower lobe atelectasis versus minimal infiltrate.
--- NOTE | 2022-12-14 17:31 | ECG_ITS ---
[facility] Test Date: 2022-12-14 Pat Name: Ry Loyd Department: Room: Gender: Male Patient Sitter: : [id number] Requested By: Raymon Fernandez Order Number: [id number] Morena MD: Ari Pettit M.D. Measurements Intervals [place] Rate: 82 P: 0 MN: 0 QRS: -31 QRSD: 95 T: 85 QT: 389 QTc: 455 Interpretive Statements ATRIAL FIBRILLATION LEFT AXIS DEVIATION [QRS AXIS < -30] MINIMAL VOLTAGE CRITERIA FOR LVH, CONSIDER NORMAL VARIANT [MEETS CRITERIA IN ONE OF: R(aVL), S(V1), R(V5), R(V5/V6)+S(V1)] NONSPECIFIC T-WAVE ABNORMALITY Compared to ECG 11/06/2022 04:26:36 Left-axis deviation now present Ventricular premature complex(es) no longer present Aberrant conduction of supraventricular beat(s) no longer present T-wave abnormality still present Electronically Signed On 12-14-2022 21:44:40 MARKET ANALYSIS DIRECTOR by Ari Pettit M.D. [id number]
[2022-12-14 18:13] LABS: Basophils # 0.1 10^3/uL (0.0-0.1); Basophils % 0.3 %; Eosinophils % 0.2 %; Hematocrit 41.1 % (42.0-52.0); Lymphocytes # 1.6 10^3/uL (0.8-4.8); Lymphocytes % 10.3 %; Mean Corpuscular HGB Conc 29.2 g/dL (30.0-36.0); Mean Corpuscular Hemoglobin 16.9 pg (28.0-34.0); Mean Corpuscular Volume 57.9 fl (80-94); Monocytes # 0.9 10^3/uL (0.2-0.9); Monocytes % 5.9 %; Neutrophils # 13.07 10^3/uL (1.8-7.7); Neutrophils % 82.9 %; Nucleated Red Blood Cells % 0 %; Platelet Count 247 10^3/cmm (130-400); Red Cell Distribution Width 22.4 % (12.1-15.1); White Blood Count 15.8 10^3/uL (4.0-10.0)
[2022-12-14 18:31] LABS: Alanine Aminotransferase 15 U/L (0-41); Albumin Level 3.2 g/dL (3.5-5.2); Alkaline Phosphatase 67 U/L (40-130); Blood Urea Nitrogen 40 mg/dL (8-23); Calcium 9.7 mg/dL (8.5-10.5); Carbon Dioxide 28 mmol/L (22-29); Chloride 100 mmol/L (98-107); Glomerular Filtration Rate 74.1 mL/min (90-130); Glucose 171 mg/dL (65-115); Osmolality Calculated 302 mOsm/kg (285-295); Sodium 139 mmol/L (136-145); Total Bilirubin 0.9 mg/dL (0.15-1.2); Total Protein 6.2 g/dL (6.6-8.7)
[2022-12-14 18:32] LABS: Lactic Sepsis W/Reflex 1.5 mmol/L (0.5-2.2)
[2022-12-14 18:40] LABS: Aspartate Amino Transferase 24 U/L (0-40)
[2022-12-14 18:56] LABS: Add RBC Morph Yes; RBC Morph Comp No; Slide Review Slide Review Perform
[2022-12-14 18:57] LABS: Anisocytosis 2+; Helmet Cells 1+; Hypochromasia 1+; Microcytosis 2+; Ovalocytes 1+; Poikilocytosis 2+; Target Cells 1+
[2022-12-14 19:21] LABS: Influenza A by IFA negative (Negative); Influenza B by IFA negative (Negative); SARS Covid-2 Antigen negative (Negative)
[2022-12-14 19:44] LABS: Add Urine Microscopic? YES; Bilirubin Urine Neg (Negative); Blood Urine 3+ (Negative); Glucose Urine UA Norm (Normal); Ketones Urine Negative (Negative); Leukocyte Esterase Urine 2+ (Negative); Nitrate Urine Positive (Negative); Protein Urine 1+ (Negative); Urine Appearance Cloudy (CLEAR); Urine Color Yellow (Yellow); Urobilinogen Urine Neg (Negative); pH Urine 6 (5-7)
[2022-12-14 19:49] LABS: Lactate (Lactic Acid level) 1.5 mmol/L (0.5-2.2)
[2022-12-14 19:52] LABS: Add Urine Culture? Yes; Bacteria Urine 2+ /hpf; RBC Urine TOO NUMEROUS TO CNT /hpf (0-2); Squamous Epithelial Cell Urine 0-4 /hpf (0-5); WBC Urine TOO NUMEROUS TO CNT /hpf (0-5)
[2022-12-14] MEDS: aztreonam 1,000 MG in sodium chloride 0.9% (plus) 50 ML 100 MG IV (20:09)
[2022-12-14] MEDS: meropenem 1,000 MG in sodium chloride 0.9% (plus) 50 ML 100 MG IV (22:19)
--- NOTE | 2022-12-14 23:36 | PM.HP ---
Providers/Chief Complaint Admitting Physician: Anjana Downing MD Primary Care Provider: ALTAF Russell Chief Complaint: GENERALIZED WEAKNESS History of Present Illness Ry Loyd is a 67 year old male with history of recurrent urinary tract infections on Fosfomycin suppression, multiple hospitalizations for nonobstructing pyelonephritis , also on chronic suppression with amoxicillin due to h/o endocarditis, following TAVR, on chronic prednisone 5mg daily for RA. Presenting with chills over the past 2-3 days along with increase dlethargy. Came to Er as suspected him to have a UTI again. Denies any cough, chest pain, dyspnea or palpitations. T max here 100.9F, leukocytosis at 15. UA +. Review of Systems General: Reports: 10 or more systems reviewed and unremarkable except in HPI and below Const: Denies: fever(s), chills or body aches Eyes: Denies: change in vision, blurry vision or photophobia ENMT: Reports: hoarseness; Denies: throat pain, enlarged tonsils, odynophagia or nasal congestion Card: Denies: chest pain, palpitations, irregular heart rhythm, edema, swelling of feet/ankles, lightheadedness, pre-syncope, dyspnea on exertion or orthopnea Resp: Denies: dyspnea, productive cough, non-productive cough, wheezing, stridor, pain on inspiration, change in phlegm color, hemoptysis or chest congestion GI: Denies: abdominal pain, nausea, vomiting, hematemesis, coffee ground emesis, dysphagia, heartburn, diarrhea, constipation, GI cramping, change in stool character, hematochezia or melena : Denies: flank pain, dysuria, urinary frequency, urinary urgency, urinary hesitancy or hematuria Musc: Denies: neck pain, back pain, extremity pain, joint swelling, joint warmth or deformity Neuro: Denies: headache(s), numbness in extremities, weakness in extremities, sensory changes, difficulty walking, frequent falls, dizziness, vertigo, behavioral changes, Slurred speech present or seizure-like activity Psych: Denies: anxiety, depression, suicidal ideation or homicidal ideation Endo: Denies: polyuria, polydipsia, tired all the time, cold intolerance or hot flashes Aaron/Lymph: Denies: easy bruising or easy bleeding Medications/Allergies Home Medications Medication Instructions Recorded Confirmed Last Taken Type citalopram 10 mg tablet (Celexa) 10 mg PO QPM 12/03/19 11/06/22 11/03/22 History tamsulosin 0.4 mg capsule 0.4 mg PO DAILY@12/03/19 11/06/22 11/04/22 History pantoprazole 40 mg tablet,delayed 40 mg PO DAILY@12/25/19 11/06/22 11/04/22 History release (Protonix) potassium chloride 20 mEq 20 meq PO BID 12/25/19 11/06/22 11/04/22 History tablet,extended release aspirin 81 mg tablet,delayed 81 mg PO BEDTIME 10/10/20 11/06/22 11/03/22 History release atorvastatin 40 mg tablet 40 mg PO DAILY@02/17/21 11/06/22 11/03/22 History diltiazem HCl 120 mg 120 mg PO DAILY@02/17/21 11/06/22 11/04/22 History capsule,extended release 24 hr Lactobacillus acidophilus 20 20,000 mmu cells PO BEDTIME 07/12/21 11/06/22 11/03/22 History billion cell capsule (Florajen Acidophilus) insulin glargine 100 unit/mL (3 25 unit SUBCUT BID 07/12/21 11/06/22 07/15/22 History mL) subcutaneous pen (Lantus Solostar U-100 Insulin) vit no.95-ferrous 1 tab PO DAILY@07/12/21 11/06/22 11/04/22 History fumarate 28 mg-folic acid 800 mcg tablet ( Multivitamins) acetaminophen 500 mg tablet 500 mg PO Q6H PRN Pain 12/29/21 11/06/22 01/03/22 History ascorbic acid (vitamin C) 500 mg 500 mg PO QPM 07/13/22 11/06/22 11/03/22 History tablet (Vitamin C) nitroglycerin 0.4 mg sublingual 0.4 mg sublingual Q5M PRN Chest 07/13/22 11/06/22 Unknown History tablet (Nitrostat) Pain carvedilol 6.25 mg tablet 9.375 mg PO BID 11/04/22 11/06/22 11/04/22 History cholecalciferol (vitamin D3) 125 125 mcg PO QAM 11/04/22 11/06/22 11/04/22 History mcg (5,000 unit) tablet (Vitamin D3) dapagliflozin 10 mg tablet 10 mg PO DAILY@06 11/04/22 11/06/22 11/04/22 History (Farxiga) hydroxyzine HCl 25 mg tablet 25 mg PO BEDTIME 11/04/22 11/06/22 11/03/22 History warfarin 1 mg tablet 6 mg PO QPM 11/04/22 11/06/22 11/03/22 History amoxicillin 500 mg capsule 500 mg PO BID 6 months #360 caps 11/06/22 Unknown Rx fosfomycin tromethamine 3 gram 3 g PO Q3D chronic suppression for 11/06/22 Unknown Rx oral packet UTI 3 months #30 ea bumetanide 1 mg tablet 1 mg PO BID #60 tabs 11/09/22 Unknown Rx prednisone 5 mg tablet 5 mg PO QAM #60 tabs 11/24/22 Unknown Rx Allergies Allergy/AdvReac Type Severity Reaction Status Date / Time ceftriaxone [From Rocephin] Allergy Intermediate ALGY-Difficulty Verified 07/27/22 12:40 Breathing levofloxacin [From Levaquin] Allergy Mild ADR-Itching Verified 07/27/22 12:40 iodine Allergy Unknown Unknown Verified 07/27/22 12:40 clopidogrel [From Plavix] AdvReac Intermediate Unknown Verified 07/27/22 12:40 PFSH Acute PFSH: Medical History Acute cystitis Altered mental status Aortic stenosis Had TAVR replacement 2017 Atrial fibrillation Atrial fibrillation with slow ventricular response Bilateral renal masses CHF (congestive heart failure) EF 45 by transesophageal echo January 2019 Chronic antibiotic suppression Chronic anticoagulation coumadin Chronic urinary tract infection, suppressed Chronic use of steroids Complex renal cyst Congestive heart failure CVA (cerebral vascular accident) Dementia Diabetes Dyslipidemia Endocarditis history of chronic viridans endocarditis, 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 Essential hypertension Gout High risk medication use arava and chronic steroids 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 Ischemic cardiomyopathy Left ventricular hypertrophy Obesity AJAY (obstructive sleep apnea) Pre-syncope Pulmonary HTN Pyelonephritis of right kidney Recurrent UTI Multidrug-resistant organisms Renal calculi Restrictive lung disease Rheumatoid arthritis Rheumatoid arthritis Skin lesion Syncope Syncope and collapse Thalassemia Urinary tract infection due to ESBL Klebsiella Surgical History H/O lithotripsy S/P TAVR (transcatheter aortic valve replacement) (~2018) Family History Mother Stroke Father Myocardial infarction Other CAD (coronary artery disease) Chronic kidney disease (CKD) Diabetes Hypertension Social History Smoking and tobacco status: former smoker Quit status (tobacco): has quit using tobacco Year quit tobacco: 2019 - Chewing Tobacco Former quit date comment: Hx of 1/2 can x 50 Years Second hand smoke exposure: No Alcohol intake: former Lives independently: No Household members: spouse Marital status: Current occupational status: retired and disabled History of recent travel: No Current gender identity: Male Vitals/I&O/Wt Last Vital Signs Temp 97.7 F 12/14/22 21:05 Pulse 84 12/14/22 21:05 Resp 23 H 12/14/22 21:05 BP 115/62 12/14/22 21:05 Pulse Ox 94 12/14/22 21:05 O2 Del Method 12/14/22 21:33 O2 Flow Rate 2 12/14/22 16:37 12/14/22 12/14/22 12/15/22 14:59 22:59 06:59 Intake Total 50 / 50 50 / 100 Balance 50 / 50 50 / 100 Weight last 48 hrs Weight 117.934 kg Physical Exam Narrative: General: No acute distress, AO x3 HEENT: PERRLA, pupils bilaterally equal and reactive, pallors not present Chest: Normal vesicular breath sounds, no added sounds, equal good air entry bilaterally CVS: S1-S2 regular, no murmurs, no tachycardia, no gallops, no rubs Abdomen: Soft, nontender, no organomegaly, bowel sounds present Neuro: No focal deficits, no facial deformity, AO x3, power 5/5 in all limbs Data 12/14/22 17:44 12/14/22 17:44 Micro: Microbiology 12/14/22 19:22 Blood Culture - Preliminary Blood SPECIMEN COLLECTED 12/14/22 19:20 Blood Culture - Preliminary Blood SPECIMEN COLLECTED 12/14/22 17:44 Blood Culture - Preliminary Blood SPECIMEN COLLECTED 12/14/22 18:00 Blood Culture - Preliminary Blood SPECIMEN COLLECTED A&P Assessment and plan (1) UTI (urinary tract infection): (2) Sepsis: Plan early sepsis given tachycardia, fever, leukocytsosi and source of infection No signs of end organ dysfucntion at this time lactate normal Does not currently need maintenance fluids as clinically euvolemic, has a h/o CHF Blood cx taken in er he received aztreonam in the ER , will change to meropenem 1g iv q8h given h/o multiple ESBL UTI in the past, has tolerated carbapenems on several admission without incidence. Follow pending urine and blood cx renal Us to evaluate for hydronephrosis. He is on chronic suppression with Fosfomycin for recurrent UTIs with MDR ESBL organisms. He has had 2 breakthrough infections on fosfomycin since starting in February 2022 thus far. This is improved over previous rate of infections in 2020 which was every 6-8 weeks. If he does have a breakthrough infection now, this would make it third breakthrough on suppression. It appears his urine was sterilized in July 2022, but seen to have UTI again with Klebsiella and proteus in Oct 2022. He follows with urology and as such no anatomical reason has been able to be ascertained on cystoscopies that would explain recurrence. He does have a complex renal cyst which may potentially be colonized however he is not a good candidate for major surgical procedures therefore surgical intervention has been deferred. Will attempt to send additional urine cx to [facility] this admission for fosfomycin suseptibilities, however previous attempts at doing this have not been successful due to varying issues with this test being a send out. CXR with atelactasis LLL , negative covid and flu AG Attestations Medical Necessity Statement*: >2 midnight admission anticipated for iv abx, UTI , sepsis Coding Level of Care Code Acute Code for [facility] Diagnoses UTI (urinary tract infection) N39.0 Sepsis A41.9
[2022-12-14 23:54] LABS: Glucose Point of Care 175 mg/dL (70-110)
[2022-12-15 03:35] VITALS: BP 113/76; PULSE 114; RESP 26; TEMP 38.3; O2SAT 95
[2022-12-15 05:08] LABS: Basophils # 0.1 10^3/uL (0.0-0.1); Basophils % 0.3 %; Hematocrit 39.5 % (42.0-52.0); Hemoglobin 11.6 g/dL (11.7-16.6); Lymphocytes # 1.1 10^3/uL (0.8-4.8); Lymphocytes % 6.1 %; Mean Corpuscular HGB Conc 29.4 g/dL (30.0-36.0); Mean Corpuscular Hemoglobin 16.7 pg (28.0-34.0); Mean Corpuscular Volume 56.8 fl (80-94); Monocytes % 5.6 %; Neutrophils # 15.38 10^3/uL (1.8-7.7); Neutrophils % 87.3 %; Nucleated Red Blood Cells % 0 %; Platelet Count 182 10^3/cmm (130-400); Red Blood Count 6.96 10^6/uL (4.1-5.3); Red Cell Distribution Width 21.8 % (12.1-15.1); White Blood Count 17.6 10^3/uL (4.0-10.0)
[2022-12-15 05:16] LABS: INR 1.93 (0.8-1.2)
[2022-12-15 05:31] LABS: Alanine Aminotransferase 12 U/L (0-41); Albumin Level 3.2 g/dL (3.5-5.2); Alkaline Phosphatase 65 U/L (40-130); Anion Gap 15.5 (5-19); Aspartate Amino Transferase 17 U/L (0-40); Blood Urea Nitrogen 36 mg/dL (8-23); Carbon Dioxide 27 mmol/L (22-29); Chloride 104 mmol/L (98-107); Globulin 2.8 g/dL (1.3-4.6); Glomerular Filtration Rate 74.1 mL/min (90-130); Glucose 177 mg/dL (65-115); Osmolality Calculated 309 mOsm/kg (285-295); Potassium 3.5 mmol/L (3.5-5.1); Sodium 143 mmol/L (136-145); Total Bilirubin 1.2 mg/dL (0.15-1.2)
[2022-12-15] MEDS: meropenem 1,000 MG in sodium chloride 0.9% (plus) 50 ML 100 MG IV ×3 (05:44→21:31)
[2022-12-15] MEDS: predniSONE 5 mg Tablet PO (05:44)
[2022-12-15] MEDS: dilTIAZem ER (24HR) 120 mg Capsule PO (05:44)
[2022-12-15] MEDS: pantoprazole DR 40 mg Tablet PO ×2 (05:44→08:43)
[2022-12-15 06:35] LABS: Glucose Point of Care 201 mg/dL (70-110)
--- NOTE | 2022-12-15 07:43 | US_ITS ---
WS: [id number] ULTRASOUND RENAL TECHNIQUE: Ultrasound examination of both kidneys. CLINICAL INFORMATION: evaluate hydronephroiss COMPARISON: Ultrasound November 06, 2022 FINDINGS: No hydronephrosis in either kidney. Bilateral complex renal cysts described below. RIGHT: Right kidney is normal in size and appearance. Echogenicity: Normal. Cortical thickness: 2.6 cm; Normal. Hydronephrosis: None. Perinephric fluid: None. Right kidney measures: 13.4 cm x 6.9 cm x 6.4 cm. LEFT: Left kidney is normal in size and appearance. Echogenicity: Normal. Cortical thickness: cm; Normal. Hydronephrosis: None. Perinephric fluid: None. Left kidney measures: 12.8 cm x 6.8 cm x 7.1 cm. Normal visualized aorta. US/US renal BI* [id number] IMPRESSION: Technically difficult study 1. No hydronephrosis in either kidney. 2. Previously described septated complex cystic lesion measuring 6.1 x 4.6 x 4 .6 cm upper pole LEFT kidney is unchanged. Recommend continued surveillance 3. Additional complex cyst RIGHT kidney measuring 4.3 x 3.4 x 3.5 cm with inte rnal septation. Recommend continued surveillance.
[2022-12-15 08:00] VITALS: BP 111/73; PULSE 90; RESP 22; TEMP 36.5; O2SAT 98
[2022-12-15 08:38] VITALS: BP 111/73; PULSE 90; RESP 22; TEMP 36.5
[2022-12-15] MEDS: carvedilol 6.25 mg Tablet 9.375 MG PO ×2 (08:41→17:52)
[2022-12-15] MEDS: bumetanide 1 mg Tablet PO ×2 (08:42→17:51)
[2022-12-15] MEDS: insulin lispro 100 unit/1 mL SUBCUT ×4 (08:43→22:20)
--- NOTE | 2022-12-15 09:10 | PC.NURSE ---
Patient requesting to call his and reports having trouble dialing. I called and spoke with patient's spouse, Becca, and transferred it to patient's room.
--- NOTE | 2022-12-15 09:39 | PM.PN ---
Subjective Subjective: Patient is not confused this morning Awake and alert Able to answer simple questions HEP reviewed, chart reviewed, leukocytosis, sepsis related to UTI Vitals/I&O/Wt Last Vital Signs Temp 97.7 F 12/15/22 08:00 Pulse 90 12/15/22 08:00 Resp 22 H 12/15/22 08:00 BP 111/73 12/15/22 08:00 Pulse Ox 98 12/15/22 08:00 O2 Del Method 12/15/22 08:00 O2 Flow Rate 2 12/15/22 08:00 12/14/22 12/15/22 12/15/22 22:59 06:59 14:59 Intake Total 50 / 50 100 / 150 Balance 50 / 50 100 / 150 Weight last 48 hrs Weight 117.934 kg Physical Exam Narrative: Awake and alert Nonfocal neuro exam Prominent veins on his abdominal wall Distended abdomen nontender Proximity no edema Able to answer simple question No audible stridor or wheezing Currently on 2 L S1, S2 Unkept appearance Data 12/15/22 04:37 12/15/22 04:37 Micro: Microbiology 12/14/22 19:22 Blood Culture - Preliminary Blood SPECIMEN COLLECTED 12/14/22 19:20 Blood Culture - Preliminary Blood SPECIMEN COLLECTED 12/14/22 17:44 Blood Culture - Preliminary Blood SPECIMEN COLLECTED 12/14/22 18:00 Blood Culture - Preliminary Blood SPECIMEN COLLECTED A&P Assessment and plan (1) Sepsis: (2) UTI (urinary tract infection): (3) Acute cystitis: (4) Sleep apnea: (5) Liver cirrhosis: (6) Complex renal cyst: (7) Chronic anticoagulation: Plan Sepsis related to UTI Patient mentation has improved Sepsis related encephalopathy: Resolved Check ammonia level Continue broad-spectrum antibiotics for history of ESBL Klebsiella in the past Patient has been on chronic fosfomycin suppression therapy No signs of hydronephrosis on renal ultrasound Wean oxygen to room air Continue anticoagulation Ascites without acute exacerbation Check ammonia level add lactulose Full code Will touch base with his today A. fib without RVR Consistent carb diet, continue insulin regimen Attestations Medical Necessity Statement*: Continue hospitalization Time Spent in Patient Care: 30 Coding Level of Care Code Acute Code for Chg Fwd Diagnoses Sepsis A41.9 UTI (urinary tract infection) N39.0 Acute cystitis N30.00 Sleep apnea G47.30 Liver cirrhosis K74.60 Complex renal cyst N28.1 Chronic anticoagulation Z79.01
--- NOTE | 2022-12-15 09:58 | PC.PHAR ---
pts verified pts medications-pts states the pt is still using the lantus 25 units bid rx filled 12/07/22 70 units bid- states the pt hasnt started using levemir 15 units hs filled 10/21/22 -pts states the dr put his farxiga 10mg daily on hold ext med history shows last filled 10/12/22 30d/s-notes are made in the pharmacy comments
[2022-12-15 11:16] LABS: Ammonia 38 umol/L (16-60)
[2022-12-15 11:26] LABS: Glucose Point of Care 237 mg/dL (70-110)
[2022-12-15] MEDS: lactulose oral liq 20 gm/30 mL UDC PO ×2 (11:43→21:31)
[2022-12-15 12:00] VITALS: BP 105/62; PULSE 71; RESP 20; TEMP 36.4; O2SAT 99
--- NOTE | 2022-12-15 12:50 | PC.CHAP ---
Pastoral Care Encounter/Spiritual Assessment Type of Contact [] Declined vault maker visit [] Patient/Family/Request visit [] Outpatient visit [] Follow-up visit [] Physician referral [] Code/Alert [x] Routine visit [] Staff referral [] Actively dying [] Patient sleeping [] Family support [] [] Out of room [] Palliative care [] [x] Receiving care in room [] Pre-surgical visit [] Trauma [] Long length of stay [] ICU visit [] Other: Relational/Emotional Strength [] Patient feels connected with others/family/visitors/staff [] Distress [] Loneliness/isolation [] Abandonment Spirituality of Patient [] Person of Nellie [] Attends Gnosticist of their Nellie [] Believes in Prayer [] Reads Bible or Orthodox materials [] There are Spiritual issues to be addressed [place] Deckhand Interventions [] Prayer [] Active listening [] Non-anxious presence [] Spiritual/emotional support [] Crisis/trauma care [] Spiritual counseling [] Bereavement support [] Provided bereavement packet [] Provided Bible/devotional materials [] Provided toy/stuffed animal, coloring book to patient or family member [] Provided Communion [] Anointing/[place] [] Salvation [] Completed spiritual assessment [] Other: Impact on Illness or Injury [] Angry [] Fearful [] Anxious [] Often cries [] Exhaustion [] Unable to work [] Unable to attend hinduism [] Unable to walk/stand [] Unable to read [] Unable to drive [] Unable to eat/drink [] Unable to sleep [] Unable to be with family [] Patient intubated [] Other: Summary Time spent with patient
[2022-12-15] MEDS: warfarin 3 mg Tablet 6 MG PO (14:40)
[2022-12-15 16:00] VITALS: BP 108/66; PULSE 70; RESP 18; TEMP 36.6; O2SAT 99
[2022-12-15 17:20] LABS: Glucose Point of Care 224 mg/dL (70-110)
[2022-12-15] MEDS: atorvastatin 40 mg Tablet PO (17:54)
--- NOTE | 2022-12-15 18:23 | PC.NURSE ---
Notified Dr. Oscar of positive blood culture 1 0f 4 Klebsiella Pneumone.
[2022-12-15 19:25] VITALS: BP 99/59; PULSE 73; RESP 18; TEMP 36.5; O2SAT 92
[2022-12-15] MEDS: hyDROXYzine 25 mg Capsule PO (21:31)
[2022-12-15] MEDS: aspirin 81 mg EC Tablet PO (21:31)
[2022-12-15 22:02] LABS: Glucose Point of Care 315 mg/dL (70-110)
[2022-12-16] VITALS (7 sets, daily range): BP systolic 95–146; BP diastolic 56–88; PULSE 67–85; RESP 16–22; TEMP 36.4–37.1; O2SAT 90–98
[2022-12-16 05:11] LABS: Basophils # 0.1 10^3/uL (0.0-0.1); Basophils % 0.3 %; Eosinophils # 0.2 10^3/uL (0.0-0.8); Eosinophils % 1.4 %; Hematocrit 35.1 % (42.0-52.0); Hemoglobin 10.5 g/dL (11.7-16.6); Lymphocytes # 1.9 10^3/uL (0.8-4.8); Lymphocytes % 11.9 %; Mean Corpuscular HGB Conc 29.9 g/dL (30.0-36.0); Mean Corpuscular Hemoglobin 17.1 pg (28.0-34.0); Mean Corpuscular Volume 57.2 fl (80-94); Monocytes # 1.1 10^3/uL (0.2-0.9); Neutrophils # 12.48 10^3/uL (1.8-7.7); Nucleated Red Blood Cells % 0 %; Platelet Count 191 10^3/cmm (130-400); Red Blood Count 6.14 10^6/uL (4.1-5.3); Red Cell Distribution Width 21.2 % (12.1-15.1); White Blood Count 15.8 10^3/uL (4.0-10.0)
[2022-12-16 05:43] LABS: Alanine Aminotransferase 12 U/L (0-41); Alkaline Phosphatase 78 U/L (40-130); Anion Gap 14.6 (5-19); Aspartate Amino Transferase 18 U/L (0-40); Blood Urea Nitrogen 44 mg/dL (8-23); Calcium 8.8 mg/dL (8.5-10.5); Carbon Dioxide 26 mmol/L (22-29); Chloride 100 mmol/L (98-107); Globulin 2.8 g/dL (1.3-4.6); Glomerular Filtration Rate 50.2 mL/min (90-130); Glucose 228 mg/dL (65-115); Osmolality Calculated 302 mOsm/kg (285-295); Potassium 3.6 mmol/L (3.5-5.1); Sodium 137 mmol/L (136-145); Total Bilirubin 0.6 mg/dL (0.15-1.2); Total Protein 5.8 g/dL (6.6-8.7)
[2022-12-16 05:45] LABS: Creatinine Clr Calc Pharmacy 65.0507
[2022-12-16] MEDS: pantoprazole DR 40 mg Tablet PO ×2 (05:58→08:39)
[2022-12-16] MEDS: dilTIAZem ER (24HR) 120 mg Capsule PO (05:58)
[2022-12-16] MEDS: predniSONE 5 mg Tablet PO (05:58)
[2022-12-16] MEDS: meropenem 1,000 MG in sodium chloride 0.9% (plus) 50 ML 100 MG IV ×3 (05:58→23:30)
--- NOTE | 2022-12-16 06:25 | PM.PN ---
Subjective Subjective: Patient endorsing feeling better Was in good mood today Had 1 bowel movement Patient was asking when he could be discharged home I requested repeat blood cultures Klebsiella pneumonia and blood cultures positive Low-grade fever overnight Worsening creatinine, requested CT chest abdomen pelvis Ammonia level unremarkable Low blood pressure Hold antihypertensive regimen along Bumex Vitals/I&O/Wt Last Vital Signs Temp 97.9 F 12/16/22 03:28 Pulse 77 12/16/22 03:28 Resp 22 H 12/16/22 03:28 BP 95/59 12/16/22 03:28 Pulse Ox 90 12/16/22 03:28 O2 Del Method 12/16/22 03:28 O2 Flow Rate 1.5 12/15/22 20:00 12/15/22 12/15/22 12/16/22 14:59 22:59 06:59 Intake Total 580 / 580 480 / 1060 Balance 580 / 580 480 / 1060 Weight last 48 hrs Weight 117.934 kg Physical Exam Narrative: Patient lying supine Requiring 2 L nasal cannula Distended abdomen No active signs of hepatic encephalopathy S1, S2 No signs of meningitis Able to follow commands Nonfocal neuro exam Data 12/16/22 04:48 12/16/22 04:48 Micro: Microbiology 12/14/22 19:22 Blood Culture - Preliminary Blood NEGATIVE TO DATE 12/14/22 19:20 Blood Culture - Preliminary Blood Klebsiella pneumoniae 12/14/22 17:44 Blood Culture - Final Blood 12/14/22 18:00 Blood Culture - Preliminary Blood NEGATIVE TO DATE 12/14/22 19:28 Urine Culture - Preliminary Urine,Clean Catch Gram Negative Rods A&P Assessment and plan (1) Sepsis: (2) UTI (urinary tract infection): (3) Acute cystitis: (4) Sleep apnea: (5) Gout: (6) Chronic anticoagulation: Plan Sepsis related encephalopathy, resolved Blood culture with Klebsiella pneumonia noticed Continue broad-spectrum antibiotics for now We will request CT chest abdomen pelvis KELL: Hold Bumex, antihypertensive regimen patient is also hypotensive, has history of liver cirrhosis, requesting CT chest abdomen pelvis to rule out urological pathology Patient is full code Cardiac diet History of TAVR on Coumadin Liver cirrhosis without hepatic encephalopathy signs Dr. Downing has asked lab to send fosfomycin susceptibility Continue current antibiotics Attestations Medical Necessity Statement*: Continue medical management Time Spent in Patient Care: 30 Coding Level of Care Code Acute Code for Chg Fwd Diagnoses Sepsis A41.9 UTI (urinary tract infection) N39.0 Acute cystitis N30.00 Sleep apnea G47.30 Gout M10.9 Chronic anticoagulation Z79.01
[2022-12-16 06:26] LABS: Glucose Point of Care 281 mg/dL (70-110)
[2022-12-16] MEDS: insulin lispro 100 unit/1 mL SUBCUT ×4 (08:39→22:20)
[2022-12-16] MEDS: lactulose oral liq 20 gm/30 mL UDC PO ×2 (08:39→22:20)
--- NOTE | 2022-12-16 08:50 | CT_ITS ---
WS: [id number] CT CHEST, ABDOMEN, AND PELVIS TECHNIQUE: Noncontrast CT of the chest, abdomen, and pelvis with coronal and sagittal reformatted carisa ges. CLINICAL INFORMATION: fever COMPARISON: CT kidney stone July 24, 2022 DLP: 1350.[address] scans at [facility] use at least one of these dose optimization techniques: automated e xposure control; mA and/or kV adjustment per patient size (includes targeted exams where dose is matc hed to clinical indication); or iterative reconstruction. CT CHEST: Lung images degraded by breathing artifact. Cardiomegaly. Aortic root graft. Vascular calcification. Coronary calcification. Normal caliber thoracic aorta. Coronary calcification. Tiny pericardial effus ion. No mediastinal or hilar lymphadenopathy. No axillary lymphadenopathy. Aberrant RIGHT subclavian artery. Tiny RIGHT pleural effusion. No focal consolidation. Slight hazy atelectasis in the lung bases. Shallow inspiration. Hypertrophic changes t horacic spine. CT ABDOMEN AND PELVIS: Normal noncontrast liver. Contracted gallbladder with wall thickening and cholelithiasis. Calculus ne ar the gallbladder neck. This is unchanged in appearance since July 24, 2022. Splenic granulomas. Normal GE junction. Food products in the distended stomach. Normal noncontrast sp patrick. Splenic artery calcification. Fatty atrophy of the pancreas. Adrenal glands normal. No hydronep hrosis in either kidney. Calculus in the RIGHT proximal ureter measuring 8 mm. Complex cystic lesions both kidneys as described on the ultrasound. Normal caliber abdominal aorta. Aortic calcification. Prostate calcification. Sigmoid diverticulosis. Inflammatory stranding and edema in the lower abdominal pannus with fat-containing ventral abdominal wall hernia. This is similar in appearance to the prior examinations. No drainable fluid collections. CT/[place] [id number] IMPRESSION: 1. Shallow inspiration with breathing artifact. Tiny RIGHT pleural effusion. H azy atelectasis in both lungs. No focal pneumonia. 2. Tiny pericardial effusion. 3. RIGHT proximal ureteral calculus unchanged since July 24, 2022. No sig nificant hydronephrosis. 4. Stable complex cystic lesions both kidneys described on the recent ultrasou nd. Hemorrhagic blood products in the LEFT upper pole renal lesion have resolve d since July 24, 2022 with residual complex fluid collection. Recommend co ntinued surveillance with ultrasound or CT. 5. Gallbladder wall edema with calculus near the gallbladder neck. This can be further evaluated ultrasound. This is essentially unchanged in appearance sin e July 24, 2022. 6. Inflammatory stranding and edema in the lower abdominal pannus with fat-con taining ventral abdominal wall hernia. This is similar in appearance to the stoney or examinations.
[2022-12-16 11:44] LABS: Glucose Point of Care 310 mg/dL (70-110)
[2022-12-16 12:27] LABS: INR 1.97 (0.8-1.2)
[2022-12-16] MEDS: warfarin 3 mg Tablet 6 MG PO (14:52)
[2022-12-16 17:02] LABS: Glucose Point of Care 292 mg/dL (70-110)
[2022-12-16] MEDS: hyDROXYzine 25 mg Capsule PO (20:43)
[2022-12-16] MEDS: aspirin 81 mg EC Tablet PO (20:43)
[2022-12-16 21:45] LABS: Glucose Point of Care 273 mg/dL (70-110)
[2022-12-17 03:42] LABS: Basophils % 0.2 %; Eosinophils # 0.2 10^3/uL (0.0-0.8); Eosinophils % 1.8 %; Hematocrit 34.9 % (42.0-52.0); Hemoglobin 10.4 g/dL (11.7-16.6); Lymphocytes # 1.4 10^3/uL (0.8-4.8); Lymphocytes % 11.3 %; Mean Corpuscular HGB Conc 29.8 g/dL (30.0-36.0); Mean Corpuscular Hemoglobin 17.1 pg (28.0-34.0); Mean Corpuscular Volume 57.3 fl (80-94); Monocytes % 8.3 %; Neutrophils # 9.82 10^3/uL (1.8-7.7); Nucleated Red Blood Cells % 0.2 %; Platelet Count 201 10^3/cmm (130-400); Red Blood Count 6.09 10^6/uL (4.1-5.3); Red Cell Distribution Width 21.3 % (12.1-15.1); White Blood Count 12.6 10^3/uL (4.0-10.0)
[2022-12-17 04:00] LABS: Anion Gap 14.8 (5-19); Blood Urea Nitrogen 45 mg/dL (8-23); Calcium 9.3 mg/dL (8.5-10.5); Carbon Dioxide 26 mmol/L (22-29); Chloride 100 mmol/L (98-107); Glomerular Filtration Rate 66.4 mL/min (90-130); Glucose 185 mg/dL (65-115); INR 1.94 (0.8-1.2); Osmolality Calculated 300 mOsm/kg (285-295); Potassium 3.8 mmol/L (3.5-5.1); Sodium 137 mmol/L (136-145)
[2022-12-17 04:05] VITALS: BP 137/81; PULSE 83; RESP 19; TEMP 36.5; O2SAT 96
[2022-12-17 04:12] LABS: Slide Review Slide Review Perform
[2022-12-17 06:18] LABS: Glucose Point of Care 214 mg/dL (70-110)
[2022-12-17] MEDS: predniSONE 5 mg Tablet PO (06:21)
[2022-12-17] MEDS: pantoprazole DR 40 mg Tablet PO ×2 (06:21→09:10)
[2022-12-17 07:25] VITALS: BP 137/78; PULSE 72; RESP 16; TEMP 36.8; O2SAT 97
[2022-12-17] MEDS: lactulose oral liq 20 gm/30 mL UDC PO ×2 (09:09→21:02)
[2022-12-17] MEDS: meropenem 1,000 MG in sodium chloride 0.9% (plus) 50 ML 100 MG IV ×3 (09:09→23:34)
[2022-12-17] MEDS: insulin lispro 100 unit/1 mL SUBCUT ×4 (09:10→21:01)
--- NOTE | 2022-12-17 10:20 | PM.PN ---
Subjective Subjective: Patient is sitting in a chair Very comfortable, no signs of confusion Pleasant cooperative I did tell him that we are waiting for second blood cultures Will speak with Dr. Lund Vitals/I&O/Wt Last Vital Signs Temp 98.2 F 12/17/22 07:25 Pulse 72 12/17/22 07:25 Resp 16 12/17/22 07:25 BP 137/78 12/17/22 07:25 Pulse Ox 97 12/17/22 07:25 O2 Del Method 12/17/22 07:25 O2 Flow Rate 1.5 12/16/22 20:00 12/16/22 12/17/22 12/17/22 22:59 06:59 14:59 Intake Total 530 / 530 830 / 1360 410 / 410 Balance 530 / 530 830 / 1360 410 / 410 Physical Exam Narrative: Patient is in good mood Currently doing well on room air Distended abdomen No active shortness hepatic encephalopathy Skin wrinkling noted No active signs of confusion Nonfocal neuro exam no audible stridor or wheezing Data 12/17/22 02:59 12/17/22 02:59 Micro: Microbiology 12/16/22 07:03 Blood Culture - Preliminary Blood NEGATIVE TO DATE 12/16/22 06:58 Blood Culture - Preliminary Blood NEGATIVE TO DATE 12/14/22 19:28 Urine Culture - Final Urine,Clean Catch Klebsiella pneumonia esbl A&P Assessment and plan (1) Sepsis: (2) UTI (urinary tract infection): (3) Sleep apnea: (4) Bacteremia: (5) Chronic anticoagulation: Plan Sepsis: Resolved Bacteremia with Klebsiella Continue meropenem Patient is not confused at all Pleasant and cooperative Hemodynamic stable Repeat cultures negative to date Will touch base with ID Patient is doing well No signs of hepatic encephalopathy Continue Coumadin Check INR Patient clinically looks euvolemic however he does have distended abdomen Doing well on room air Full code Attestations Medical Necessity Statement*: Continue medical management Time Spent in Patient Care: 20mins Coding Level of Care Code Acute Code for Chg Fwd Diagnoses Sepsis A41.9 UTI (urinary tract infection) N39.0 Sleep apnea G47.30 Bacteremia R78.81 Chronic anticoagulation Z79.01
[2022-12-17] MEDS: potassium chloride ER 20 mEq Tablet 40 MEQ PO (10:49)
[2022-12-17 11:27] VITALS: BP 134/80; PULSE 76; RESP 15; TEMP 36.6; O2SAT 97
[2022-12-17 11:27] LABS: Glucose Point of Care 323 mg/dL (70-110)
--- NOTE | 2022-12-17 11:31 | PC.SOCIAL ---
IMM update IMM updated with patient. Verbalized an understanding. Copy Pg 2 provided. Initialled, dated, timed, and placed in chart.
[2022-12-17 15:27] VITALS: PULSE 78; RESP 16; TEMP 36.8; O2SAT 95
[2022-12-17] MEDS: warfarin 3 mg Tablet 6 MG PO (15:33)
[2022-12-17 17:07] LABS: Glucose Point of Care 201 mg/dL (70-110)
[2022-12-17] MEDS: carvedilol 6.25 mg Tablet 9.375 MG PO (17:53)
[2022-12-17 20:00] VITALS: BP 174/89; PULSE 90; RESP 18; TEMP 36.9; O2SAT 97
[2022-12-17 20:36] LABS: Glucose Point of Care 255 mg/dL (70-110)
[2022-12-17] MEDS: aspirin 81 mg EC Tablet PO (21:01)
[2022-12-17] MEDS: hyDROXYzine 25 mg Capsule PO (21:01)
[2022-12-18] VITALS (7 sets, daily range): BP systolic 122–139; BP diastolic 66–83; PULSE 72–111; RESP 17–22; TEMP 36.4–37.1; O2SAT 92–99
[2022-12-18] MEDS: predniSONE 5 mg Tablet PO (05:10)
[2022-12-18] MEDS: pantoprazole DR 40 mg Tablet PO ×2 (05:11→09:24)
[2022-12-18 05:46] LABS: Basophils % 0.4 %; Eosinophils # 0.2 10^3/uL (0.0-0.8); Eosinophils % 2.5 %; Hematocrit 34.8 % (42.0-52.0); Hemoglobin 10.2 g/dL (11.7-16.6); Lymphocytes # 1.3 10^3/uL (0.8-4.8); Lymphocytes % 13.9 %; Mean Corpuscular HGB Conc 29.3 g/dL (30.0-36.0); Mean Corpuscular Hemoglobin 16.8 pg (28.0-34.0); Mean Corpuscular Volume 57.4 fl (80-94); Neutrophils # 6.95 10^3/uL (1.8-7.7); Neutrophils % 72.7 %; Nucleated Red Blood Cells % 0.2 %; Platelet Count 204 10^3/cmm (130-400); Red Blood Count 6.06 10^6/uL (4.1-5.3); Red Cell Distribution Width 21.2 % (12.1-15.1); White Blood Count 9.6 10^3/uL (4.0-10.0)
[2022-12-18 05:53] LABS: INR 2.07 (0.8-1.2)
[2022-12-18 06:08] LABS: Alanine Aminotransferase 24 U/L (0-41); Albumin Level 2.9 g/dL (3.5-5.2); Alkaline Phosphatase 123 U/L (40-130); Anion Gap 12.2 (5-19); Aspartate Amino Transferase 22 U/L (0-40); Blood Urea Nitrogen 42 mg/dL (8-23); Calcium 9.5 mg/dL (8.5-10.5); Carbon Dioxide 27 mmol/L (22-29); Chloride 103 mmol/L (98-107); Globulin 2.7 g/dL (1.3-4.6); Glomerular Filtration Rate 74.1 mL/min (90-130); Glucose 256 mg/dL (65-115); Osmolality Calculated 305 mOsm/kg (285-295); Potassium 4.2 mmol/L (3.5-5.1); Sodium 138 mmol/L (136-145); Total Bilirubin 0.4 mg/dL (0.15-1.2); Total Protein 5.6 g/dL (6.6-8.7)
[2022-12-18 06:29] LABS: Slide Review Slide Review Perform
[2022-12-18 06:32] LABS: Glucose Point of Care 313 mg/dL (70-110)
[2022-12-18] MEDS: insulin lispro 100 unit/1 mL SUBCUT ×4 (09:23→21:03)
--- NOTE | 2022-12-18 09:23 | PM.PN ---
Subjective Subjective: 67-year male who was admitted for management and evaluation of metabolic encephalopathy related to UTI, he has persistent Klebsiella ESBL positive cultures, I do believe he is colonized with complex renal cyst, Dr. Downing has sent fosfomycin susceptibility to [facility] lab, if bacteria susceptible to fosfomycin and he still having breakthrough infections then he will need outpatient Dr. Berkowitz's appointment to see if he needs any surgical intervention for the complex renal cyst. At this point he will get ertapenem 1 g daily for next 14 days and then he would continue his fosfomycin suppression therapy Patient endorsing feeling better Vitals/I&O/Wt Last Vital Signs Temp 97.8 F 12/18/22 08:00 Pulse 74 12/18/22 08:00 Resp 17 12/18/22 08:00 BP 135/75 12/18/22 08:00 Pulse Ox 98 12/18/22 08:00 O2 Del Method 12/18/22 08:00 O2 Flow Rate 1.5 12/16/22 20:00 12/17/22 12/18/22 12/18/22 22:59 06:59 14:59 Intake Total 440 / 1090 530 / 1620 Balance 440 / 1090 530 / 1620 Physical Exam Narrative: Patient is awake and alert Pleasant cooperative Sitting at the bedside Short attention span No signs of hepatic encephalopathy Distended abdomen thin extremities s1s2 Doing well on room air Data 12/18/22 04:28 12/18/22 04:28 Micro: Microbiology 12/16/22 07:03 Blood Culture - Preliminary Blood NEGATIVE TO DATE 12/16/22 06:58 Blood Culture - Preliminary Blood NEGATIVE TO DATE A&P Assessment and plan (1) Urinary tract infection due to ESBL Klebsiella: (2) Sepsis: (3) UTI (urinary tract infection): (4) Sleep apnea: (5) Complex renal cyst: Plan Sepsis: Resolved Klebsiella pneumonia UTI, repeat cultures negative to date Will request midline placement 14 days of Ortho pending 1 g daily Fosfomycin susceptibility sent to [facility] Will need Dr. Berkowitz's appointment outpatient Plan to discharge in next 24 hours Full code No signs of hepatic encephalopathy History of liver cirrhosis Full code Cardiac diet Patient will need a dose of ertapenem before he is discharged in order to continue home IV regimen Attestations Medical Necessity Statement*: Discharge tomorrow after placement of midline Time Spent in Patient Care: 30 Coding Level of Care Code Acute Code for Chg Fwd Diagnoses Urinary tract infection due to ESBL Klebsiella N39.0; B96.89 Sepsis A41.9 UTI (urinary tract infection) N39.0 Sleep apnea G47.30 Complex renal cyst N28.1
[2022-12-18] MEDS: carvedilol 6.25 mg Tablet 9.375 MG PO ×2 (09:24→17:20)
[2022-12-18] MEDS: meropenem 1,000 MG in sodium chloride 0.9% (plus) 50 ML 100 MG IV ×3 (09:24→23:24)
[2022-12-18] MEDS: lactulose oral liq 20 gm/30 mL UDC PO (09:24)
[2022-12-18 11:02] LABS: Glucose Point of Care 313 mg/dL (70-110)
[2022-12-18] MEDS: warfarin 3 mg Tablet 6 MG PO (13:28)
[2022-12-18 15:58] LABS: Glucose Point of Care 204 mg/dL (70-110)
[2022-12-18 20:45] LABS: Glucose Point of Care 206 mg/dL (70-110)
[2022-12-18] MEDS: aspirin 81 mg EC Tablet PO (21:02)
[2022-12-18] MEDS: hyDROXYzine 25 mg Capsule PO (21:02)
[2022-12-19 03:41] VITALS: BP 148/73; PULSE 75; RESP 20; TEMP 36.8; O2SAT 98
[2022-12-19 04:42] LABS: INR 2.19 (0.8-1.2)
[2022-12-19] MEDS: pantoprazole DR 40 mg Tablet PO ×2 (05:16→08:19)
[2022-12-19] MEDS: predniSONE 5 mg Tablet PO (05:16)
[2022-12-19 06:48] LABS: Glucose Point of Care 164 mg/dL (70-110)
[2022-12-19 07:57] VITALS: BP 124/81; PULSE 105; RESP 18; TEMP 37.1; O2SAT 95
[2022-12-19] MEDS: meropenem 1,000 MG in sodium chloride 0.9% (plus) 50 ML 100 MG IV ×3 (08:11→23:43)
[2022-12-19] MEDS: carvedilol 6.25 mg Tablet 9.375 MG PO ×2 (08:19→17:34)
[2022-12-19] MEDS: insulin lispro 100 unit/1 mL SUBCUT ×4 (08:25→21:46)
[2022-12-19] MEDS: lactulose oral liq 20 gm/30 mL UDC PO (09:48)
--- NOTE | 2022-12-19 10:40 | PM.PN ---
Subjective Subjective: Seen this AM. No acute events overnight. Patient to continue ertapenem daily. Fosfomycin susceptibilities not back yet. PICC line still pending. Vitals/I&O/Wt Last Vital Signs Temp 98.7 F 12/19/22 07:57 Pulse 105 H 12/19/22 07:57 Resp 18 12/19/22 07:57 BP 124/81 12/19/22 07:57 Pulse Ox 95 12/19/22 07:57 O2 Del Method 12/19/22 07:57 O2 Flow Rate 1.5 12/16/22 20:00 12/18/22 12/19/22 12/19/22 22:59 06:59 14:59 Intake Total 770 / 1300 410 / 1710 50 / 50 Balance 770 / 1300 410 / 1710 50 / 50 Physical Exam Narrative: Patient is awake and alert Pleasant cooperative Sitting at the bedside Short attention span No signs of hepatic encephalopathy Distended abdomen thin extremities s1s2 Doing well on room air Data 12/18/22 04:28 12/18/22 04:28 Micro: Microbiology 12/14/22 17:44 Blood Culture - Final Blood Klebsiella pneumonia esbl 12/14/22 19:20 Blood Culture - Final Blood Klebsiella pneumonia esbl A&P Assessment and plan (1) Urinary tract infection due to ESBL Klebsiella: (2) Sepsis: (3) UTI (urinary tract infection): (4) Sleep apnea: (5) Complex renal cyst: Plan Sepsis: Resolved Klebsiella pneumonia UTI, repeat cultures negative to date Will request midline placement 14 days of Ortho pending 1 g daily Fosfomycin susceptibility sent to [facility] Will need Dr. Berkowitz's appointment outpatient Plan to discharge in next 24 hours Full code No signs of hepatic encephalopathy History of liver cirrhosis Awaiting PICC line placement. Full code Cardiac diet Patient will need a dose of ertapenem before he is discharged in order to continue home IV regimen Due to terrible road conditions and a weather and the fact the patient lives far away he will not be able to go home today and tomorrow. Aim for discharge on Monday. Even if he were sent today for tomorrow he would not be able to come back to get his dose of antibiotic due to location and weather. Attestations Medical Necessity Statement*: Discharge after picc line placement and once able to discharge safely. Time Spent in Patient Care: 30 Coding Level of Care Code Acute Code for Chg Fwd Diagnoses Urinary tract infection due to ESBL Klebsiella N39.0; B96.89 Sepsis A41.9 UTI (urinary tract infection) N39.0 Sleep apnea G47.30 Complex renal cyst N28.1
[2022-12-19 12:00] VITALS: BP 96/47; PULSE 79; RESP 18; TEMP 36.6; O2SAT 95
[2022-12-19 12:17] LABS: Glucose Point of Care 369 mg/dL (70-110)
[2022-12-19] MEDS: warfarin 3 mg Tablet 6 MG PO (14:50)
[2022-12-19 16:00] VITALS: BP 114/64; PULSE 78; RESP 18; TEMP 36.8; O2SAT 99
[2022-12-19 16:53] LABS: Glucose Point of Care 195 mg/dL (70-110)
[2022-12-19 19:51] VITALS: BP 136/69; PULSE 90; RESP 14; TEMP 36.9; O2SAT 96
[2022-12-19 21:28] LABS: Glucose Point of Care 247 mg/dL (70-110)
[2022-12-19] MEDS: aspirin 81 mg EC Tablet PO (21:41)
[2022-12-19] MEDS: hyDROXYzine 25 mg Capsule PO (21:41)
[2022-12-19 23:44] VITALS: BP 137/78; PULSE 84; RESP 17; TEMP 36.4; O2SAT 100
[2022-12-20 04:00] VITALS: BP 127/58; PULSE 75; RESP 16; TEMP 36.8; O2SAT 99
[2022-12-20 04:51] LABS: INR 2.16 (0.8-1.2)
[2022-12-20] MEDS: predniSONE 5 mg Tablet PO (05:46)
[2022-12-20] MEDS: pantoprazole DR 40 mg Tablet PO ×2 (05:46→08:28)
[2022-12-20 06:32] LABS: Glucose Point of Care 216 mg/dL (70-110)
[2022-12-20 08:00] VITALS: BP 107/60; PULSE 87; RESP 16; TEMP 36.6; O2SAT 97
--- NOTE | 2022-12-20 08:23 | PC.SOCIAL ---
Late Entry IMM Update @ 0927 on 12/20/22 IMM updated and reviewed w/ patient. Copy provided and copy in chart dated and initialed.
[2022-12-20] MEDS: meropenem 1,000 MG in sodium chloride 0.9% (plus) 50 ML 100 MG IV ×2 (08:28→15:44)
[2022-12-20] MEDS: carvedilol 6.25 mg Tablet 9.375 MG PO ×2 (08:28→17:33)
[2022-12-20] MEDS: insulin lispro 100 unit/1 mL SUBCUT ×4 (08:38→21:09)
[2022-12-20 11:35] LABS: Glucose Point of Care 320 mg/dL (70-110)
--- NOTE | 2022-12-20 12:53 | P.PN_ITS ---
Subjective Subjective: Seen this a.m. no acute events overnight. Patient had PICC line placed. Vitals/I&O/Wt Last Vital Signs Temp 98 F 12/20/22 08:00 Pulse 87 12/20/22 08:00 Resp 16 12/20/22 08:00 BP 107/60 12/20/22 08:00 Pulse Ox 97 12/20/22 08:00 O2 Del Method 12/20/22 04:00 O2 Flow Rate 1.5 12/16/22 20:00 12/19/22 12/20/22 12/20/22 22:59 06:59 14:59 Intake Total 290 / 820 50 / 870 410 / 410 Output Total Balance 290 / 820 50 / 870 409 / 409 Physical Exam Narrative: Patient is awake and alert Pleasant cooperative Sitting at the bedside Short attention span No signs of hepatic encephalopathy Distended abdomen thin extremities s1s2 Doing well on room air Data 12/18/22 04:28 12/18/22 04:28 Micro: Microbiology 12/14/22 19:22 Blood Culture - Final Blood NO GROWTH AFTER 5 DAYS 12/14/22 18:00 Blood Culture - Final Blood NO GROWTH AFTER 5 DAYS A&P Assessment and plan (1) Urinary tract infection due to ESBL Klebsiella: (2) Sepsis: (3) UTI (urinary tract infection): (4) Sleep apnea: (5) Complex renal cyst: Plan Sepsis: Resolved Klebsiella pneumonia UTI, repeat cultures negative to date Will request midline placement 14 days of Ortho pending 1 g daily Fosfomycin susceptibility sent to [facility] Will need Dr. Berkowitz's appointment outpatient Plan to discharge in next 24 hours Full code No signs of hepatic encephalopathy History of liver cirrhosis Awaiting PICC line placement. Full code Cardiac diet Patient will need a dose of ertapenem before he is discharged in order to cont inue home IV regimen Due to terrible road conditions, whether and patient's living far away injury I have been informed by director of social media marketing that he was not able to get home safely. When and if he does get home he will have to get out from the car and stand up and get into his electric wheelchair at which point the is sure that he will fall down. His discharge planning is not safe at this point due to which patient cannot be discharged home safely today. Secondly transportation could not be set up today to send the patient home. After discussion with director of social media marketing it was decided to keep the patient in the hospital today. Attestations Medical Necessity Statement*: Pending discharge home once transportation can be set up. Coding Level of Care Code Acute Code for Chg Fwd Diagnoses Urinary tract infection due to ESBL Klebsiella N39.0; B96.89 Sepsis A41.9 UTI (urinary tract infection) N39.0 Sleep apnea G47.30 Complex renal cyst N28.1
[2022-12-20] MEDS: warfarin 3 mg Tablet 6 MG PO (14:45)
[2022-12-20 16:00] VITALS: BP 127/81; PULSE 86; RESP 18; TEMP 36.7; O2SAT 100
[2022-12-20 17:37] LABS: Glucose Point of Care 308 mg/dL (70-110)
[2022-12-20 20:00] VITALS: BP 134/72; PULSE 84; RESP 18; TEMP 36.8; O2SAT 96
[2022-12-20] MEDS: hyDROXYzine 25 mg Capsule PO (20:11)
[2022-12-20] MEDS: aspirin 81 mg EC Tablet PO (20:11)
[2022-12-20 21:20] LABS: Glucose Point of Care 341 mg/dL (70-110)
[2022-12-21] VITALS: BP 123/76; PULSE 78; RESP 16; TEMP 36.7; O2SAT 90
[2022-12-21] MEDS: meropenem 1,000 MG in sodium chloride 0.9% (plus) 50 ML 100 MG IV ×2 (00:32→07:17)
[2022-12-21 02:54] LABS: INR 2.09 (0.8-1.2)
[2022-12-21 03:37] VITALS: BP 132/69; PULSE 87; RESP 16; TEMP 36.4; O2SAT 92
[2022-12-21] MEDS: predniSONE 5 mg Tablet PO (05:30)
[2022-12-21] MEDS: pantoprazole DR 40 mg Tablet PO ×2 (05:30→08:34)
[2022-12-21 06:41] LABS: Glucose Point of Care 217 mg/dL (70-110)
[2022-12-21 07:36] VITALS: BP 102/63; PULSE 82; RESP 18; TEMP 36.6; O2SAT 97
[2022-12-21] MEDS: carvedilol 6.25 mg Tablet 9.375 MG PO (08:34)
[2022-12-21] MEDS: insulin lispro 100 unit/1 mL SUBCUT ×2 (08:36→12:24)
--- NOTE | 2022-12-21 11:27 | PM.DCS ---
Discharge Providers Date of Admission: 12/14/22 20:01 Date of Discharge: December 21, 2022 Attending Provider at Admission: Anjana Downing MD Attending Provider at Discharge: Micheline Carey MD Primary Care Provider: ALTAF Russell Diagnoses at Discharge Discharge Diagnosis (1) Urinary tract infection due to ESBL Klebsiella: Status: Acute (2) Sepsis: Status: Acute (3) UTI (urinary tract infection): Status: Acute (4) Sleep apnea: Status: Acute (5) Complex renal cyst: Status: Acute Reason for Visit Reason for Visit: GENERALIZED WEAKNESS Brief History: Ry Loyd is a 67 year old male with history of recurrent urinary tract infections on Fosfomycin suppression, multiple hospitalizations for nonobstructing pyelonephritis , also on chronic suppression with amoxicillin due to h/o endocarditis, following TAVR, on chronic prednisone 5mg daily for RA. Presenting with chills over the past 2-3 days along with increase dlethargy. Came to [facility] as suspected him to have a UTI again. Denies any cough, chest pain, dyspnea or palpitations. T max here 100.9F, leukocytosis at 15. UA +. Hospital Course Hospital Course Patient admitted for sepsis secondary to Klebsiella pneumoniae UTI with Klebsiella pneumonia bacteremia. Fosfomycin sensitivity sent to [facility]. Patient to go home with 14 days of ertapenem. Repeat blood cultures at the end of treatment. Patient to see infectious disease as an outpatient for follow-up. Patient does have a complex renal cyst. There is suspicion that that might be the nidus of infection. If the bacteremia does not resolve patient may need to have that cyst removed. He will need an appointment with urology at discharge as well. Patient is also on chronic suppression with amoxicillin due to history of endocarditis. He is on chronic prednisone 5 mg daily for rheumatoid arthritis. We will continue on that at discharge. During hospital stay he has been afebrile at this point. His Bumex has been on hold and potassium has been on hold. He is euvolemic. Patient to be discharged home in stable condition. His will be bringing him to the GI Lab daily to get ertapenem infusion. He will get his dose for today prior to discharge. All questions answered. Case management assisted with patient's discharge. Physical Exam Narrative: Patient is awake and alert Pleasant cooperative Sitting at the bedside No signs of hepatic encephalopathy soft non tender abdomen thin extremities s1s2 Doing well on room air picc line in place on left arm Discharge Data Studies Completed and Pending Completed Studies During Hospitalization Category Date Time Status CT chest abdomen pelvis [[place] [id number] Cat Scan 12/16/22 08:50 Completed ] Routine XR chest 1V portable [id number] Stat Exams 12/14/22 17:31 Completed US renal BI* [id number] Routine Ultrasound 12/15/22 07:43 Completed Pending at discharge Category Date Time Status Miscellaneous Test Routine Lab 12/16/22 08:41 Received Prothrombin Time INR AM LABS Lab 12/22/22 04:00 Ordered Radiology Impressions Chest X-Ray 12/14/22 17:31 IMPRESSION: 1. Cardiomegaly. 2. Emphysematous changes. 3. TAVR. 4. Possible right hilar to lower lobe atelectasis versus minimal infiltrate. Renal Ultrasound 12/15/22 07:43 IMPRESSION: Technically difficult study 1. No hydronephrosis in either kidney. 2. Previously described septated complex cystic lesion measuring 6.1 x 4.6 x 4.6 cm upper pole LEFT kidney is unchanged. Recommend continued surveillance 3. Additional complex cyst RIGHT kidney measuring 4.3 x 3.4 x 3.5 cm with internal septation. Recommend continued surveillance. Chest/Abdomen/Pelvis CT 12/16/22 08:50 IMPRESSION: 1. Shallow inspiration with breathing artifact. Tiny RIGHT pleural effusion. Hazy atelectasis in both lungs. No focal pneumonia. 2. Tiny pericardial effusion. 3. RIGHT proximal ureteral calculus unchanged since July 24, 2022. No significant hydronephrosis. 4. Stable complex cystic lesions both kidneys described on the recent ultrasound. Hemorrhagic blood products in the LEFT upper pole renal lesion have resolved since July 24, 2022 with residual complex fluid collection. Recommend continued surveillance with ultrasound or CT. 5. Gallbladder wall edema with calculus near the gallbladder neck. This can be further evaluated ultrasound. This is essentially unchanged in appearance since July 24, 2022. 6. Inflammatory stranding and edema in the lower abdominal pannus with fat-containing ventral abdominal wall hernia. This is similar in appearance to the prior examinations. Laboratory Results WBC 9.6 10^3/uL (4.0-10.0) 12/18/22 04:28 RBC 6.06 10^6/uL (4.1-5.3) H 12/18/22 04:28 Hgb 10.2 g/dL (11.7-16.6) L 12/18/22 04:28 Hct 34.8 % (42.0-52.0) L 12/18/22 04:28 MCV 57.4 fl (80-94) L 12/18/22 04:28 MCH 16.8 pg (28.0-34.0) L 12/18/22 04:28 MCHC 29.3 g/dL (30.0-36.0) L 12/18/22 04:28 RDW 21.2 % (12.1-15.1) H 12/18/22 04:28 Plt Count 204 10^3/cmm (130-400) 12/18/22 04:28 MPV Not Reportable 12/18/22 04:28 Neut % (Auto) 72.7 % 12/18/22 04:28 Lymph % (Auto) 13.9 % 12/18/22 04:28 Chase % (Auto) 10.0 % 12/18/22 04:28 Eos % (Auto) 2.5 % 12/18/22 04:28 Baso % (Auto) 0.4 % 12/18/22 04:28 Neut # (Auto) 6.95 10^3/uL (1.8-7.7) 12/18/22 04:28 Lymph # (Auto) 1.3 10^3/uL (0.8-4.8) 12/18/22 04:28 Chase # (Auto) 1.0 10^3/uL (0.2-0.9) H 12/18/22 04:28 Eos # (Auto) 0.2 10^3/uL (0.0-0.8) 12/18/22 04:28 Baso # (Auto) 0.0 10^3/uL (0.0-0.1) 12/18/22 04:28 Nucleated RBC % (auto) 0.2 % 12/18/22 04:28 Nucleated RBCs # 0.0 /100WBC 12/18/22 04:28 Hypochromasia 1+ H 12/14/22 17:44 Poikilocytosis 2+ H 12/14/22 17:44 Anisocytosis 2+ H 12/14/22 17:44 Microcytosis 2+ H 12/14/22 17:44 Target Cells 1+ H 12/14/22 17:44 Ovalocytes 1+ H 12/14/22 17:44 Helmet Cells 1+ H 12/14/22 17:44 PT 23.80 SECONDS (12.1-14.9) H 12/21/22 01:45 INR 2.09 (0.8-1.2) H 12/21/22 01:45 Sodium 138 mmol/L (136-145) 12/18/22 04:28 Potassium 4.2 mmol/L (3.5-5.1) 12/18/22 04:28 Chloride 103 mmol/L (98-107) 12/18/22 04:28 Carbon Dioxide 27 mmol/L (22-29) 12/18/22 04:28 Anion Gap 12.2 (5-19) 12/18/22 04:28 BUN 42 mg/dL (8-23) H 12/18/22 04:28 Creatinine 1.0 mg/dL (0.7-1.2) 12/18/22 04:28 GFR Calculation 74.1 mL/min (90-130) L 12/18/22 04:28 Glucose 256 mg/dL (65-115) H 12/18/22 04:28 POC Glucose 217 mg/dL (70-110) H 12/21/22 06:35 Calculated Osmolality 305 mOsm/kg (285-295) H 12/18/22 04:28 Lactic Acid 1.5 mmol/L (0.5-2.2) 12/14/22 17:44 Lactate 1.5 mmol/L (0.5-2.2) 12/14/22 19:20 Calcium 9.5 mg/dL (8.5-10.5) 12/18/22 04:28 Total Bilirubin 0.4 mg/dL (0.15-1.2) 12/18/22 04:28 AST 22 U/L (0-40) 12/18/22 04:28 ALT 24 U/L (0-41) 12/18/22 04:28 Alkaline Phosphatase 123 U/L (40-130) 12/18/22 04:28 Ammonia 38 umol/L (16-60) 12/15/22 10:49 Total Protein 5.6 g/dL (6.6-8.7) L 12/18/22 04:28 Albumin 2.9 g/dL (3.5-5.2) L 12/18/22 04:28 Globulin 2.7 g/dL (1.3-4.6) 12/18/22 04:28 Urine Color Yellow (Yellow) 12/14/22 19:28 Urine Appearance Cloudy (CLEAR) A 12/14/22 19:28 Urine pH 6 (5-7) 12/14/22 19:28 Ur Specific [place] 1.010 (1.005-1.030) 12/14/22 19:28 Urine Protein 1+ (Negative) H 12/14/22 19:28 Urine Glucose (UA) Norm (Normal) 12/14/22 19: Urine Ketones Negative (Negative) 12/14/22 19: Urine Blood 3+ (Negative) H 12/14/22 19:28 Urine Nitrate Positive (Negative) H 12/14/22 19:28 Urine Bilirubin Neg (Negative) 12/14/22 19:28 Urine Urobilinogen Neg mg/dL (Negative) 12/14/22 19:28 Ur Leukocyte Esterase 2+ (Negative) H 12/14/22 19:28 Urine RBC Too numerous to cnt /hpf (0-2) H 12/14/22 19:28 Urine WBC Too numerous to cnt /hpf (0-5) H 12/14/22 19:28 Ur Squamous Epith Cells 0-4 /hpf (0-5) H 12/14/22 19:28 Amorphous Sediment Not Reportable 12/14/22 19:28 Urine Bacteria 2+ /hpf (NONE) H 12/14/22 19:28 Influenza Type A Ag negative (Negative) 12/14/22 18:57 Influenza Type B Ag negative (Negative) 12/14/22 18:57 SARS-CoV-2 Ag (Rapid) negative (Negative) 12/14/22 18:57 Vitals Last Vital Signs Temp 97.8 F 12/21/22 07:36 Pulse 82 12/21/22 07:36 Resp 18 12/21/22 07:36 BP 102/63 12/21/22 07:36 Pulse Ox 97 12/21/22 07:36 O2 Del Method 12/21/22 07:36 O2 Flow Rate 1.5 12/16/22 20:00 Discharge Plan Discharge Patient Disposition: Home Condition: Stable Prescriptions: New prednisone 5 mg Tablet 5 mg PO QAM 30 Days Qty: 30 0RF amoxicillin 500 mg capsule 500 mg PO BID Qty: 90 0RF Continued citalopram [Celexa] 10 mg tablet 10 mg PO QPM pantoprazole [Protonix] 40 mg Tablet,Delayed Release (Dr/Ec) 40 mg PO DAILY@06 aspirin 81 mg Tablet,Delayed Release (Dr/Ec) 81 mg PO BEDTIME insulin glargine [Lantus Solostar U-100 Insulin] 100 unit/mL (3 mL) insulin pen 25 unit SUBCUT BID Florajen Acidophilus 20 billion cell Capsule 20,000 mmu cells PO BEDTIME PNV cmb#95-ferrous fumarate-FA [ Multivitamins] 28 mg iron- 800 mcg Tablet 1 tab PO DAILY@06 atorvastatin 40 mg tablet 40 mg PO DAILY@19 acetaminophen 500 mg Tablet 500 mg PO Q6H PRN (Reason: Pain) ascorbic acid (vitamin C) [Vitamin C] 500 mg Tablet 500 mg PO QPM nitroglycerin [Nitrostat] 0.4 mg Tablet, Sublingual 0.4 mg SUBLINGUAL Q5M PRN (Reason: Chest Pain) Rx Instructions: do not exceed 3 doses per episode fosfomycin tromethamine 3 gram packet 3 g PO Q3D 90 Days Qty: 30 4RF hydroxyzine pamoate 25 mg capsule 25 mg PO BID carvedilol 6.25 mg tablet 9.375 mg PO BID Hold Instructions: Resume on 11/23/22. warfarin 1 mg tablet 6 mg PO QPM cholecalciferol (vitamin D3) [Vitamin D3] 125 mcg (5,000 unit) Tablet 125 mcg PO QAM Farxiga 10 mg tablet 10 mg PO DAILY Rx Instructions: MEDICATION ON HOLD Held tamsulosin 0.4 mg capsule 0.4 mg PO DAILY@06 Hold Instructions: see pcp potassium chloride 20 mEq Tablet Extended Release 20 meq PO BID Hold Instructions: see pcp diltiazem HCl 120 mg capsule,extended release 24hr 120 mg PO DAILY@06 Hold Instructions: see pcp bumetanide 1 mg tablet 1 mg PO BID Qty: 60 3RF Hold Instructions: see pcp Discontinued amoxicillin 500 mg capsule 500 mg PO BID 180 Days Qty: 360 1RF prednisone 5 mg tablet 7.5 mg PO QAM Discharge Orders: Discharge Order (Routine); Ordered 12/21/22 Ordered By: Micheline Carey Other Ambulatory Orders: Basic Metabolic Panel (Routine) Timeframe: 1 Week Facility: [facility] - Location: Lab - Main Lab Ordered By: Micheline Carey Complete Blood Count w/Auto (Routine) Timeframe: 1 Week Location: Determined by Patient Ordered By: Micheline Carey Blood Culture (Routine) Timeframe: 2 Weeks Facility: [facility] - Location: Lab - Main Lab Ordered By: Micheline Carey Miscellaneous Procedure (Order) Facility: [facility] - Location: GI Lab Ordered By: Micheline Carey Referrals: Billy Berkowitz MD [Physician] - 2 weeks ( WILL CALL WITH APPOINTMENT) Anjana Downing MD [Hospitalist] - 01/05/23 10:45 am Gregoria Cheek FNP [Primary Care Provider] - 4-7 days ([facility] PHONE NUMBER [phone] PLEASE CALL FOR APPOINTMENT FOR FOLLOW UP) Discharge Diet: Cardiac Discharge Activity: Resume usual activity Patient Instructions: Prednisone (By mouth), Urinary Tract Infection in Men (GEN), Midline Catheter (GEN), Opioid Safety Activity Restrictions/Additional Instructions: Please follow up with infectious disease as directed. Please return to GI lab daily to have your dose of IV antibiotics everyday as directed. If you develop a fever, chills or any other worsening of symptoms or development of other new symptoms, return to the ER. Discharge Attestations Time Spent in Discharge Care*: greater than 30 min Status at Discharge: Cognitive status at discharge: cognitively intact, Behavioral status at discharge: cooperative, Quality Metrics Clinical Quality Measures [ No reported AMI, CVA or VTE this stay] Coding Level of Care Code Acute Chg FW DC note Diagnoses Urinary tract infection due to ESBL Klebsiella N39.0; B96.89 Sepsis A41.9 UTI (urinary tract infection) N39.0 Sleep apnea G47.30 Complex renal cyst N28.1
[2022-12-21 11:57] LABS: Glucose Point of Care 330 mg/dL (70-110)
[2022-12-21 12:00] VITALS: BP 90/57; PULSE 81; RESP 18; TEMP 36.4; O2SAT 95
[2022-12-21] MEDS: ertapenem 1,000 MG in sodium chloride 0.9% (plus) 100 ML 200 MG IV (12:02)
[2022-12-21] MEDS: warfarin 3 mg Tablet 6 MG PO (14:18)
[2022-12-21 14:49] VITALS: BP 90/57; PULSE 81; RESP 18; TEMP 36.4; O2SAT 95
== END 2022-12-21 14:45 | disposition home or self-care (01) | DRG 871 ==
LOC: ER 20:05 → MEDSURG 20:19
PROVIDERS: Family Medicine; Internal Medicine; Admitting Provider Student in an Organized Health Care Education/Training Program; Emergency Provider Emergency Medicine; PCP Nurse Practitioner Family; Visit Provider Internal Medicine
DX: A41.89 Other specified sepsis (principal); G93.41 Metabolic encephalopathy; N39.0 Urinary tract infection, site not specified; Z16.12 Extended spectrum beta lactamase (ESBL) resistance; R18.8 Other ascites; N17.9 Acute kidney failure, unspecified; B96.1 Klebsiella pneumoniae [K. pneumoniae] as the cause of diseases classified elsewhere; I95.9 Hypotension, unspecified; G47.33 Obstructive sleep apnea (adult) (pediatric); N28.1 Cyst of kidney, acquired; M06.9 Rheumatoid arthritis, unspecified; I48.91 Unspecified atrial fibrillation; E78.5 Hyperlipidemia, unspecified; E11.9 Type 2 diabetes mellitus without complications; I11.0 Hypertensive heart disease with heart failure; I50.9 Heart failure, unspecified; K74.60 Unspecified cirrhosis of liver; F03.90 Unspecified dementia, unspecified severity, without behavioral disturbance, psychotic disturbance, mood disturbance, and anxiety; Z79.52 Long term (current) use of systemic steroids; Z79.2 Long term (current) use of antibiotics; Z95.4 Presence of other heart-valve replacement; Z86.73 Personal history of transient ischemic attack (TIA), and cerebral infarction without residual deficits; Z79.4 Long term (current) use of insulin; Z87.891 Personal history of nicotine dependence
CPT/HCPCS: 36415; 36416; 36569; 36592; 71045; 71250; 74176; 76770; 80048; 80053; 81001; 82140; 82962; 83605; 85025; 85610; 87040; 87077; 87086; 87150; 87186; 87205; 87426; 87804; 93005; 96372; 96374; 97116; 97161; 97530; 99285; C1751; J1335; J1815; J2185; J3490; J7512

== ENCOUNTER 2022-12-23 13:31 | Emergency (ER) | payer MEDICARE, OTHER, SELFPAY ==
[2022-12-23 13:50] VITALS: BP 149/83; PULSE 77; RESP 18; TEMP 36.3; O2SAT 97; BMI 36.6
[2022-12-23 13:54] VITALS: BP 154/94; PULSE 74; RESP 18; TEMP 36.6; O2SAT 98
--- NOTE | 2022-12-23 15:32 | XR_ITS ---
WS: [id number] Portable AP upright chest, 12/23/2022 Clinical Data: fluid retention Comparison: Portable chest, 12/14/2022 Findings: No nodules, masses or effusions are seen. The heart is normal. The pulmonary vascularity is not increased. No pneumonia or pneumothorax is seen. There is an artificial heart valve. The aortic arch and descending thoracic aorta show tortuosity. XR/XR chest 1V portable [id number] Impression: Atherosclerosis.
[2022-12-23 16:34] VITALS: BP 159/106; PULSE 81; TEMP 36.4; O2SAT 98
--- NOTE | 2022-12-23 16:48 | W.ED.GENADLT ---
HPI - General Adult General: Chief complaint: General Medical Stated complaint: med withdrawal, fluid retent Time Seen by Provider: 12/23/22 16:48 Source: family Mode of arrival: ambulatory History of Present Illness: 67-year-old male presents to the ER with complaints of fluid retention and swelling. He was recently hospitalized. His potassium Flomax and Bumex were held. No chest pain no vomiting or diarrhea no fever sweats or chills. He is does not have any complaints at this time. When I talked to his his biggest complaint is swelling in his lower extremities and her concern that he is beginning to retain fluid. Onset (ago): minute(s) Associated symptoms: Deny chest pain, dyspnea, malaise, nausea, rash or vomiting Review of Systems Const: Denies: fever(s), chills, body aches, change in appetite, fatigue or malaise ENMT: Denies: throat pain, ear or mastoid pain, nasal discharge or nasal congestion Card: Denies: chest pain, edema, dyspnea on exertion or orthopnea Resp: Denies: dyspnea, productive cough or non-productive cough GI: Denies: abdominal pain, nausea, vomiting, hematemesis, coffee ground emesis, diarrhea, constipation, bloating, hematochezia or melena : Denies: flank pain, dysuria, urinary frequency or urinary urgency Skin/Breast: Denies: rash or pruritus PFSH ED PFSH: Medical History Acute cystitis Altered mental status Aortic stenosis Had TAVR replacement 2017 Atrial fibrillation Atrial fibrillation with slow ventricular response Bilateral renal masses CHF (congestive heart failure) EF 45 by transesophageal echo January 2019 Chronic antibiotic suppression Chronic anticoagulation coumadin Chronic urinary tract infection, suppressed Chronic use of steroids Complex renal cyst Congestive heart failure CVA (cerebral vascular accident) Dementia Diabetes Dyslipidemia Endocarditis history of chronic viridans endocarditis, 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 Essential hypertension Gout High risk medication use arava and chronic steroids 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 Ischemic cardiomyopathy Left ventricular hypertrophy Liver cirrhosis Obesity AJAY (obstructive sleep apnea) Pre-syncope Pulmonary HTN Pyelonephritis of right kidney Recurrent UTI Multidrug-resistant organisms Renal calculi Restrictive lung disease Rheumatoid arthritis Rheumatoid arthritis Skin lesion Syncope Syncope and collapse Thalassemia Urinary tract infection due to ESBL Klebsiella Surgical History H/O lithotripsy S/P TAVR (transcatheter aortic valve replacement) (~2018) Family History Mother Stroke Father Myocardial infarction Other CAD (coronary artery disease) Chronic kidney disease (CKD) Diabetes Hypertension Social History Smoking and tobacco status: former smoker Quit status (tobacco): has quit using tobacco Year quit tobacco: 2019 - Chewing Tobacco Former quit date comment: Hx of 1/2 can x 50 Years Second hand smoke exposure: No Alcohol intake: former Lives independently: No Household members: spouse Marital status: Current occupational status: retired and disabled History of recent travel: No Current gender identity: Male Physical Exam Const: GENERAL APPEARANCE: cooperative and comfortable ORIENTATION/CONSCIOUSNESS: Yes awake, Yes oriented to person, Yes oriented to place and Yes oriented to time HENMT: COMMON NORMALS: normocephalic, atraumatic and hearing grossly normal bilaterally HEAD & SCALP: normocephalic and atraumatic Resp: COMMON NORMALS: normal respiratory effort, No retractions, No use of accessory muscles and clear to auscultation bilaterally AUSCULTATION: clear to auscultation bilaterally Cardio: COMMON NORMALS: regular rate, regular rhythm and No murmurs present (Cardio) RATE: regular rate RHYTHM: regular rhythm GI: COMMON NORMALS: Soft to palpation and No hepatosplenomegaly present AUSCULTATION: Yes normoactive bowel sounds PALPATION: Yes Soft to palpation, No Tenderness to palpation present (GI), No Guarding due to palpation present (GI) and Yes No hepatosplenomegaly present Extremity: COMMON NORMALS: normal to inspection, capillary refill normal and no calf tenderness GENERAL: Yes edema (+2) Neuro: SENSORIUM/ORIENTATION: Yes oriented to person, Yes oriented to place and Yes oriented to time Skin: COMMON NORMALS: no rashes or lesions noted GENERAL SKIN EXAM: no rashes or lesions noted Course Vital Signs: Vital signs: Vital Signs Temperature 97.6 F 12/23/22 16:34 Pulse Rate 81 12/23/22 16:34 Respiratory Rate 18 12/23/22 13:54 Blood Pressure 159/106 12/23/22 16:34 Pulse Oximetry 98 12/23/22 16:34 Oxygen Delivery Me thod 12/23/22 13:54 MDM - General Adult Medical Decision Making While he would benefit from resuming his diuresis he does not appear to be any acute decompensated congestive heart failure he was given Lasix here with good response he states he is feeling fine he denies any difficulty with his breathing at this time. The biggest complaint was just the increase in weight and the fluid retention and concern for it precipitating problems resume his Bumex 1 mg daily also resume his potassium supplement. Previously was on a milligram twice daily but it was held when he was discharged home and a little bit hesitant given that while in the hospital with held at discharge to just resume it at the previous dose. Recommend that he follow-up with his primary care doctor next week and then can make further adjustments if needed. Medical Records I reviewed the patient's medical records. Lab Data I reviewed the patient's lab results. 12/23/22 17:15 12/23/22 17:15 Radiology Impressions Chest X-Ray 12/23/22 15:32 Impression: Atherosclerosis. Laboratory Results WBC 8.5 10^3/uL (4.0-10.0) 12/23/22 17:15 RBC 6.10 10^6/uL (4.1-5.3) H 12/23/22 17:15 Hgb 10.2 g/dL (11.7-16.6) L 12/23/22 17:15 Hct 35.3 % (42.0-52.0) L 12/23/22 17:15 MCV 57.9 fl (80-94) L 12/23/22 17:15 MCH 16.7 pg (28.0-34.0) L 12/23/22 17:15 MCHC 28.9 g/dL (30.0-36.0) L 12/23/22 17:15 RDW 21.5 % (12.1-15.1) H 12/23/22 17:15 Plt Count 358 10^3/cmm (130-400) 12/23/22 17:15 MPV 9.3 fL (7.4-10.4) 12/23/22 17:15 Neut % (Auto) 64.8 % 12/23/22 17:15 Lymph % (Auto) 24.7 % 12/23/22 17:15 Callahan % (Auto) 7.1 % 12/23/22 17:15 Eos % (Auto) 2.3 % 12/23/22 17:15 Baso % (Auto) 0.7 % 12/23/22 17:15 Neut # (Auto) 5.53 10^3/uL (1.8-7.7) 12/23/22 17:15 Lymph # (Auto) 2.1 10^3/uL (0.8-4.8) 12/23/22 17:15 Callahan # (Auto) 0.6 10^3/uL (0.2-0.9) 12/23/22 17:15 Eos # (Auto) 0.2 10^3/uL (0.0-0.8) 12/23/22 17:15 Baso # (Auto) 0.1 10^3/uL (0.0-0.1) 12/23/22 17:15 Nucleated RBC % (auto) 0 % 12/23/22 17:15 Nucleated RBCs # 0.0 /100WBC 12/23/22 17:15 Sodium 142 mmol/L (136-145) 12/23/22 17:15 Potassium 4.4 mmol/L (3.5-5.1) 12/23/22 17:15 Chloride 104 mmol/L (98-107) 12/23/22 17:15 Carbon Dioxide 29 mmol/L (22-29) 12/23/22 17:15 Anion Gap 13.4 (5-19) 12/23/22 17:15 BUN 33 mg/dL (8-23) H 12/23/22 17:15 Creatinine 0.8 mg/dL (0.7-1.2) 12/23/22 17:15 GFR Calculation 95.8 mL/min (90-130) 12/23/22 17:15 Glucose 153 mg/dL (65-115) H 12/23/22 17:15 Calculated Osmolality 304 mOsm/kg (285-295) H 12/23/22 17:15 Calcium 9.4 mg/dL (8.5-10.5) 12/23/22 17:15 Total Bilirubin 0.5 mg/dL (0.15-1.2) 12/23/22 17:15 AST 23 U/L (0-40) 12/23/22 17:15 ALT 20 U/L (0-41) 12/23/22 17:15 Alkaline Phosphatase 96 U/L (40-130) 12/23/22 17:15 NT-Pro-B Natriuret Pep 2092 pg/mL (0-125) H 12/23/22 17:15 Total Protein 6.0 g/dL (6.6-8.7) L 12/23/22 17:15 Albumin 3.2 g/dL (3.5-5.2) L 12/23/22 17:15 Globulin 2.8 g/dL (1.3-4.6) 12/23/22 17:15 Discharge Plan Discharge Patient Disposition: Home Clinical Impression: CHF (congestive heart failure) Condition: Stable Prescriptions: New bumetanide 2 mg tablet 1 mg PO DAILY Qty: 60 0RF potassium chloride 20 mEq tablet extended release 20 meq PO DAILY Qty: 30 0RF No Action tamsulosin 0.4 mg capsule 0.4 mg PO DAILY@06 Hold Instructions: see pcp citalopram [Celexa] 10 mg tablet 10 mg PO QPM potassium chloride 20 mEq Tablet Extended Release 20 meq PO BID Hold Instructions: see pcp pantoprazole [Protonix] 40 mg Tablet,Delayed Release (Dr/Ec) 40 mg PO DAILY@06 aspirin 81 mg Tablet,Delayed Release (Dr/Ec) 81 mg PO BEDTIME insulin glargine [Lantus Solostar U-100 Insulin] 100 unit/mL (3 mL) insulin pen 25 unit SUBCUT BID Florajen Acidophilus 20 billion cell Capsule 20,000 mmu cells PO BEDTIME PNV cmb#95-ferrous fumarate-FA [ Multivitamins] 28 mg iron- 800 mcg Tablet 1 tab PO DAILY@06 atorvastatin 40 mg tablet 40 mg PO DAILY@19 diltiazem HCl 120 mg capsule,extended release 24hr 120 mg PO DAILY@06 Hold Instructions: see pcp acetaminophen 500 mg Tablet 500 mg PO Q6H PRN (Reason: Pain) ascorbic acid (vitamin C) [Vitamin C] 500 mg Tablet 500 mg PO QPM nitroglycerin [Nitrostat] 0.4 mg Tablet, Sublingual 0.4 mg SUBLINGUAL Q5M PRN (Reason: Chest Pain) Rx Instructions: do not exceed 3 doses per episode fosfomycin tromethamine 3 gram packet 3 g PO Q3D 90 Days Qty: 30 4RF bumetanide 1 mg tablet 1 mg PO BID Qty: 60 3RF Hold Instructions: see pcp hydroxyzine pamoate 25 mg capsule 25 mg PO BID prednisone 5 mg Tablet 5 mg PO QAM 30 Days Qty: 30 0RF amoxicillin 500 mg capsule 500 mg PO BID Qty: 90 0RF carvedilol 6.25 mg tablet 9.375 mg PO BID Hold Instructions: Resume on 11/23/22. warfarin 1 mg tablet 6 mg PO QPM cholecalciferol (vitamin D3) [Vitamin D3] 125 mcg (5,000 unit) Tablet 125 mcg PO QAM Farxiga 10 mg tablet 10 mg PO DAILY Rx Instructions: MEDICATION ON HOLD Discharge Orders: Discharge ED (Routine); Ordered 12/23/22 Ordered By: Raymon Boyce Referrals: Gregoria Cheek FNP [Primary Care Provider] - Discharge Diet: Cardiac and Low Salt Discharge Activity: Increase activity as tolerated Patient Instructions: Opioid Safety, Pain Management Activity Restrictions/Additional Instructions: You are seen today for increasing fluid retention. Resume your Bumex 1 mg daily and potassium 20 mill equivalents daily. Follow-up with your primary care doctor within the week. Coding Level of Care Code ED Applications Coordinator for John Fwjackelin Exam Detailed
--- NOTE | 2022-12-23 17:07 | ECG_ITS ---
[facility] Test Date: 2022-12-23 Pat Name: Ry Loyd Department: Room: Gender: Male Global Marketing Specialist: : 1955 Requested By: Raymon Fernandez Order Number: [id number] Morena MD: Ari Pettit M.D. Measurements Intervals [place] Rate: 80 P: 203 OR: 150 QRS: -18 QRSD: 90 T: 50 QT: 389 QTc: 451 Interpretive Statements ELECTRONIC ATRIAL PACEMAKER VOLTAGE CRITERIA FOR LVH [MEETS CRITERIA IN ONE OF: R(aVL), S(V1), R(V5), R(V5/V6)+S(V1)] NONSPECIFIC T-WAVE ABNORMALITY Compared to ECG 12/14/2022 18:04:40 Atrial fibrillation no longer present Left-axis deviation no longer present T-wave abnormality still present Electronically Signed On 12-23-2022 23:24:56 [employer] SALES LEADER by Ari Pettit M.D. [id number]
[2022-12-23 17:26] LABS: Basophils # 0.1 10^3/uL (0.0-0.1); Basophils % 0.7 %; Eosinophils # 0.2 10^3/uL (0.0-0.8); Eosinophils % 2.3 %; Hematocrit 35.3 % (42.0-52.0); Hemoglobin 10.2 g/dL (11.7-16.6); Lymphocytes # 2.1 10^3/uL (0.8-4.8); Lymphocytes % 24.7 %; Mean Corpuscular HGB Conc 28.9 g/dL (30.0-36.0); Mean Corpuscular Hemoglobin 16.7 pg (28.0-34.0); Mean Corpuscular Volume 57.9 fl (80-94); Mean Platelet Volume 9.3 fL (7.4-10.4); Monocytes # 0.6 10^3/uL (0.2-0.9); Monocytes % 7.1 %; Neutrophils # 5.53 10^3/uL (1.8-7.7); Neutrophils % 64.8 %; Nucleated Red Blood Cells % 0 %; Platelet Count 358 10^3/cmm (130-400); Red Cell Distribution Width 21.5 % (12.1-15.1); White Blood Count 8.5 10^3/uL (4.0-10.0)
[2022-12-23] MEDS: FUROsemide 10 mg/mL SDV 10mL 80 MG IVP (18:05)
[2022-12-23 18:15] LABS: Alanine Aminotransferase 20 U/L (0-41); Albumin Level 3.2 g/dL (3.5-5.2); Alkaline Phosphatase 96 U/L (40-130); Anion Gap 13.4 (5-19); Aspartate Amino Transferase 23 U/L (0-40); Blood Urea Nitrogen 33 mg/dL (8-23); Calcium 9.4 mg/dL (8.5-10.5); Carbon Dioxide 29 mmol/L (22-29); Chloride 104 mmol/L (98-107); Globulin 2.8 g/dL (1.3-4.6); Glomerular Filtration Rate 95.8 mL/min (90-130); Glucose 153 mg/dL (65-115); NT Pro B Type Natriuretic Pept 2092 pg/mL (0-125); Osmolality Calculated 304 mOsm/kg (285-295); Potassium 4.4 mmol/L (3.5-5.1); Sodium 142 mmol/L (136-145); Total Bilirubin 0.5 mg/dL (0.15-1.2)
== END 2022-12-23 19:39 | disposition home or self-care (01) ==
PROVIDERS: Emergency Provider Family Medicine; PCP Nurse Practitioner Family
DX: I50.9 Heart failure, unspecified (principal); I48.91 Unspecified atrial fibrillation; Z79.01 Long term (current) use of anticoagulants
CPT/HCPCS: 36415; 71045; 80053; 83880; 85025; 93005; 96374; 99285; J1940

== ENCOUNTER 2022-12-30 12:17 | Outpatient (RCR) | payer MEDICARE, OTHER, SELFPAY ==
[2022-12-22] MEDS: ertapenem 1,000 MG in sodium chloride 0.9% (plus) 100 ML 200 MG IV (13:34)
[2022-12-22 13:35] VITALS: BP 120/75; PULSE 82; RESP 18; TEMP 36.3; O2SAT 99
[2022-12-23] MEDS: ertapenem 1,000 MG in sodium chloride 0.9% (plus) 100 ML 200 MG IV (12:55)
[2022-12-23 12:56] VITALS: BP 198/107; PULSE 76; RESP 18; TEMP 36.6; O2SAT 97
[2022-12-24] MEDS: ertapenem 1,000 MG in sodium chloride 0.9% (plus) 100 ML 200 MG IV (10:05)
[2022-12-24 10:37] VITALS: BP 151/77; PULSE 78; RESP 18; TEMP 36.6; O2SAT 99
[2022-12-25 10:10] VITALS: BP 133/73; PULSE 74; RESP 17; TEMP 37.1; O2SAT 97
[2022-12-25] MEDS: ertapenem 1,000 MG in sodium chloride 0.9% (plus) 100 ML 200 MG IV (10:24)
[2022-12-26] MEDS: ertapenem 1,000 MG in sodium chloride 0.9% (plus) 100 ML 200 MG IV (13:15)
[2022-12-26 13:17] VITALS: BP 133/83; PULSE 85; RESP 18; TEMP 36.5; O2SAT 95
[2022-12-27] MEDS: ertapenem 1,000 MG in sodium chloride 0.9% (plus) 100 ML 200 MG IV (12:45)
[2022-12-27 13:09] VITALS: BP 124/53; PULSE 96; RESP 18; TEMP 36.8; O2SAT 98
[2022-12-28] MEDS: ertapenem 1,000 MG in sodium chloride 0.9% (plus) 100 ML 200 MG IV (12:30)
[2022-12-28 12:33] VITALS: BP 113/86; PULSE 92; RESP 18; TEMP 36.8; O2SAT 94
[2022-12-29] MEDS: ertapenem 1,000 MG in sodium chloride 0.9% (plus) 100 ML 200 MG IV (12:30)
[2022-12-29 12:35] VITALS: BP 124/87; PULSE 80; RESP 18; TEMP 36.9; O2SAT 95
[2022-12-30] MEDS: ertapenem 1,000 MG in sodium chloride 0.9% (plus) 100 ML 200 MG IV (12:28)
[2022-12-30 12:33] VITALS: BP 123/70; PULSE 76; RESP 18; TEMP 36.7; O2SAT 98
--- NOTE | 2022-12-30 12:58 | PC.NURSE ---
Pt completed last dose of antibiotic. Midline to left arm removed as ordered. Pressure held until hemostasis reached. No bleeding or hematoma noted. No redness or signs of infection present. Pt educated to call PCP or go to ED for bleeding, redness, drainage, or difficulty breathing.
== END 2023-01-17 23:59 | disposition home or self-care (01) ==
LOC: GILAB 12:17
PROVIDERS: PCP Nurse Practitioner Family; Visit Provider Internal Medicine
DX: N39.0 Urinary tract infection, site not specified (principal)
CPT/HCPCS: 96365; J1335

== ENCOUNTER 2023-01-03 08:32 | Outpatient (CLI) | payer MEDICARE, OTHER, SELFPAY ==
--- NOTE | 2023-01-03 08:50 | XRR_ITS ---
PROCEDURE INFORMATION: Exam: XR Abdomen Exam date and time: 01/03/2023 8:55 AM Age: 67 years old Clinical indication: Condition or disease; Kidney or ureter condition; Calculus (stone) in kidney; Prior surgery; Surgery type: Hrt valve replacement; Additional info: Stones, marco barton 01/03/23@ 8:15 am appt to follow TECHNIQUE: Imaging protocol: Radiologic exam of the abdomen. Views: Frontal supine view of the abdomen. 1 View. COMPARISON: [place] [id number] 12/16/2022 9:09 AM FINDINGS: Gastrointestinal tract: Bowel gas pattern is unremarkable. No sign of obstruction. Organs: There is a 7 mm calcification projecting over the tip of the right L2 transverse process, corresponding to a proximal ureteral stone visible on 12/16/2022. Vasculature: There is marked splenic artery calcification visible in the left upper abdomen. There are multiple phleboliths in the deep pelvis. Bones/joints: There is mild degenerative disease in the lumbar spine. XR/XR KUB [id number] IMPRESSION: 7 mm calcification in the right upper abdomen, corresponding to the size and position of the proximal ureteral stone visible on 12/16/2022.
== END 2023-01-03 08:33 | disposition home or self-care (01) ==
PROVIDERS: PCP Nurse Practitioner Family; Visit Provider Urology
DX: N42.0 Calculus of prostate (principal); N39.0 Urinary tract infection, site not specified; B96.89 Other specified bacterial agents as the cause of diseases classified elsewhere; N28.1 Cyst of kidney, acquired
CPT/HCPCS: 74018; 81003; 87086; 99214

== ENCOUNTER → 2023-01-04 13:08 | Outpatient (BNVA) | payer MEDICARE, OTHER, SELFPAY | PROVIDERS: PCP Nurse Practitioner Family; Visit Provider Internal Medicine | DX: M05.79 Rheumatoid arthritis with rheumatoid factor of multiple sites without organ or systems involvement (principal); M10.9 Gout, unspecified; F03.90 Unspecified dementia, unspecified severity, without behavioral disturbance, psychotic disturbance, mood disturbance, and anxiety; R21 Rash and other nonspecific skin eruption; Z79.52 Long term (current) use of systemic steroids | CPT/HCPCS: 99213 ==

== ENCOUNTER 2023-01-04 15:47 | Inpatient (IN) | payer MEDICARE, OTHER, SELFPAY ==
[2023-01-04] VITALS (9 sets, daily range): BP systolic 112–165; BP diastolic 48–91; PULSE 70–93; RESP 18–24; TEMP 36.6–37.1; O2SAT 90–96; BMI 36.2
--- NOTE | 2023-01-04 16:13 | ED_ITS ---
Documented by User: Deion Thompson MD 01/15/23 17:59 HPI - General Adult General: Chief complaint: General Medical Stated complaint: weakness/chills/anxiety Time Seen by Provider: 01/04/23 16:13 Limitations: altered mental status History of Present Illness: 67-year-old gentleman presenting with generalized illness. He apparently just was treated for urinary tract infection. He does have a history of dementia and is in the bathroom on initial evaluation. He describes weakness, chills, generalized malaise. History is otherwise limited by mental status. Supplemental information provided by is that patient has been weaker, he has had dysuria, and also chills. Review of Systems General: Reports: ROS unobtainable due to mental status PFSH ED PFSH: Medical History Acute cystitis Altered mental status Aortic stenosis Had TAVR replacement 2017 Atrial fibrillation Atrial fibrillation with slow ventricular response Bilateral renal masses CHF (congestive heart failure) EF 45 by transesophageal echo January 2019 Chronic antibiotic suppression Chronic anticoagulation coumadin Chronic urinary tract infection, suppressed Chronic use of steroids Complex renal cyst Congestive heart failure CVA (cerebral vascular accident) Dementia Diabetes Dyslipidemia Endocarditis history of chronic viridans endocarditis, 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 Essential hypertension Gout High risk medication use arava and chronic steroids 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 Ischemic cardiomyopathy Left ventricular hypertrophy Liver cirrhosis Obesity AJAY (obstructive sleep apnea) Pre-syncope Pulmonary HTN Pyelonephritis of right kidney Recurrent UTI Multidrug-resistant organisms Renal calculi Restrictive lung disease Rheumatoid arthritis Rheumatoid arthritis Shoulder pain Skin lesion Syncope Syncope and collapse Thalassemia Urinary tract infection due to ESBL Klebsiella Surgical History H/O lithotripsy S/P TAVR (transcatheter aortic valve replacement) (~2018) Family History Mother Stroke Father Myocardial infarction Other CAD (coronary artery disease) Chronic kidney disease (CKD) Diabetes Hypertension Social History Smoking and tobacco status: former smoker Quit status (tobacco): has quit using tobacco Year quit tobacco: 2019 - Chewing Tobacco Former quit date comment: Hx of 1/2 can x 50 Years Second hand smoke exposure: No Alcohol intake: former Lives independently: No Household members: spouse Marital status: Current occupational status: retired and disabled Current gender identity: Male Physical Exam Const: COMMON NORMALS: alert GENERAL APPEARANCE: cooperative, well developed and ill appearing HENMT: COMMON NORMALS: normocephalic and atraumatic HEAD & SCALP: normocephalic and atraumatic THROAT: posterior oropharynx normal Eye: COMMON NORMALS: conjunctivae normal CONJUNCTIVA: Yes conjunctivae normal SCLERA: sclerae normal Neck/C-Spine: COMMON NORMALS: supple GENERAL: Yes trachea midline Resp: COMMON NORMALS: clear to auscultation bilaterally EFFORT & INSPECTION: Yes able to speak in complete sentences AUSCULTATION: clear to auscultation bilaterally Cardio: COMMON NORMALS: regular rate and regular rhythm RATE: regular rate RHYTHM: regular rhythm GI: COMMON NORMALS: Soft to palpation PALPATION: Yes Soft to palpation Extremity: GENERAL: Yes normal exam except as noted and No edema Neuro: COMMON NORMALS: moves all extremities SENSORIUM/ORIENTATION: Yes alert and Yes Orientation impaired Psych: COMMON NORMALS: mental status grossly normal and Normal thought process present THOUGHT PROCESS: Normal thought process present Course Vital Signs: Vital signs: Vital Signs Temperature 97.8 F 01/07/23 16:00 Pulse Rate 78 01/07/23 16:00 Respiratory Rate 20 H 01/07/23 16:00 Blood Pressure 123/60 01/07/23 16:00 Pulse Oximetry 95 01/07/23 16:00 Oxygen Delivery Me thod 01/07/23 16:00 Oxygen Flow Rate 2 01/07/23 08:00 [facility] - General Adult Medical Decision Making 67 old gentleman with complex history presenting to the emergency department for generalized illness. He is confused but does have a history of dementia. History is limited with no focal neurologic deficits. There is right upper quadrant abdominal tenderness without evidence of acute surgical abdomen. Labs with leukocytosis, baseline macrocytic anemia. Metabolic panel without acute electrolyte derangement. Urinalysis negative. Given limited history initially as the patient was the only history provider advanced imaging is warranted. CT head without acute pathology, patient has advanced degenerative changes for age. CT chest abdomen pelvis describes c holelithiasis with possible cholecystitis. Otherwise incidental findings discussed with patient. Ultrasound confirms acute cholecystitis. Patient holding warfarin for anticipated procedure Patient presents here with right upper quadrant pain with tenderness he does have a cholecystitis have spoke to surgeon on-call will start antibiotics and admit to the hospitalist Dr. Gay. Medical Records I reviewed the patient's medical records. Lab Data I reviewed the patient's lab results. 01/04/23 17:14 01/04/23 17:14 Radiology Impressions Chest X-Ray 01/04/23 16:44 IMPRESSION: No acute findings. Chest/Abdomen/Pelvis CT 01/04/23 18:46 IMPRESSION: 1. Very minimal posterior pleural effusions and mild bibasilar atelectasis. 2. Minimal pericardial effusion. 3. Atherosclerotic vascular disease including coronary artery disease. 4. Previous TAVR. IMPRESSION: 1. 6 x 8 mm calcified stone at the right ureteropelvic junction without significant hydronephrosis at this time. 2. Tiny punctate nonobstructing bilateral renal calculi. 3. Cholelithiasis with possible developing acute cholecystitis. 4. Colonic diverticulosis without CT evidence of diverticulitis. 5. Redemonstrated fat containing umbilical hernia measuring approximately 7 x 6 x 9 cm with adjacent periumbilical superficial soft tissue edema versus cellulitis/panniculitis. Head CT 01/04/23 18:46 IMPRESSION: 1. Moderate cerebral atrophy and leukoencephalopathy. 2. Advanced leukoencephalopathy for the patient's age; correlation with diabetes, hypertension, vasculitis, Lyme disease, recreational drug use or multiple sclerosis is recommended. Gallbladder Ultrasound 01/04/23 22:04 IMPRESSION: 1. Findings consistent with acute cholecystitis. 2. Multiple right renal cysts and small nonobstructing calculi. Laboratory Results WBC 12.4 10^3/uL (4.0-10.0) H 01/04/23 17:14 RBC 6.20 10^6/uL (4.1-5.3) H 01/04/23 17:14 Hgb 10.5 g/dL (11.7-16.6) L 01/04/23 17:14 Hct 36.0 % (42.0-52.0) L 01/04/23 17:14 MCV 58.1 fl (80-94) L 01/04/23 17:14 MCH 16.9 pg (28.0-34.0) L 01/04/23 17:14 MCHC 29.2 g/dL (30.0-36.0) L 01/04/23 17:14 RDW 21.0 % (12.1-15.1) H 01/04/23 17:14 Plt Count 364 10^3/cmm (130-400) 01/04/23 17:14 MPV 10.3 fL (7.4-10.4) 01/04/23 17:14 Neut % (Auto) 75.4 % 01/04/23 17:14 Lymph % (Auto) 15.6 % 01/04/23 17:14 [place] % (Auto) 6.8 % 01/04/23 17:14 Eos % (Auto) 1.5 % 01/04/23 17:14 Baso % (Auto) 0.5 % 01/04/23 17:14 Neut # (Auto) 9.30 10^3/uL (1.8-7.7) H 01/04/23 17:14 Lymph # (Auto) 1.9 10^3/uL (0.8-4.8) 01/04/23 17:14 [place] # (Auto) 0.8 10^3/uL (0.2-0.9) 01/04/23 17:14 Eos # (Auto) 0.2 10^3/uL (0.0-0.8) 01/04/23 17:14 Baso # (Auto) 0.1 10^3/uL (0.0-0.1) 01/04/23 17:14 Nucleated RBC % (auto) 0 % 01/04/23 17:14 Nucleated RBCs # 0.0 /100WBC 01/04/23 17:14 Sodium 140 mmol/L (136-145) 01/04/23 17:14 Potassium 3.9 mmol/L (3.5-5.1) 01/04/23 17:14 Chloride 102 mmol/L (98-107) 01/04/23 17:14 Carbon Dioxide 26 mmol/L (22-29) 01/04/23 17:14 Anion Gap 15.9 (5-19) 01/04/23 17:14 BUN 40 mg/dL (8-23) H 01/04/23 17:14 Creatinine 1.1 mg/dL (0.7-1.2) 01/04/23 17:14 GFR Calculation 66.4 mL/min (90-130) L 01/04/23 17:14 Glucose 193 mg/dL (65-115) H 01/04/23 17:14 POC Glucose 151 mg/dL (70-110) H 01/04/23 23:28 Calculated Osmolality 305 mOsm/kg (285-295) H 01/04/23 17:14 Lactate 1.6 mmol/L (0.5-2.2) 01/04/23 17:14 Calcium 9.2 mg/dL (8.5-10.5) 01/04/23 17:14 Total Bilirubin 1.1 mg/dL (0.15-1.2) 01/04/23 17:14 AST 15 U/L (0-40) 01/04/23 17:14 ALT 9 U/L (0-41) 01/04/23 17:14 Alkaline Phosphatase 79 U/L (40-130) 01/04/23 17:14 C-Reactive Protein 45.0 mg/L (0.0-4.9) H 01/04/23 17:14 Total Protein 6.5 g/dL (6.6-8.7) L 01/04/23 17:14 Albumin 3.3 g/dL (3.5-5.2) L 01/04/23 17:14 Globulin 3.2 g/dL (1.3-4.6) 01/04/23 17:14 Procalcitonin 0.15 ng/mL (0-0.5) 01/04/23 17:14 TSH 0.98 uIU/mL (0.27-4.20) 01/04/23 17:14 Urine Color Yellow (Yellow) 01/04/23 17:01 Urine Appearance Clear (CLEAR) 01/04/23 17:01 Urine pH 5 (5-7) 01/04/23 17:01 Ur Specific [place] 1.015 (1.005-1.030) 01/04/23 17:01 Urine Protein Neg (Negative) 01/04/23 17:01 Urine Glucose (UA) Norm (Normal) 01/04/23 17:01 Urine Ketones Negative (Negative) 01/04/23 17:01 Urine Blood Neg (Negative) 01/04/23 17:01 Urine Nitrate Negative (Negative) 01/04/23 17:01 Urine Bilirubin Neg (Negative) 01/04/23 17:01 Urine Urobilinogen Neg mg/dL (Negative) 01/04/23 17:01 Ur Leukocyte Esterase Negative (Negative) 01/04/23 17:01 Coronavirus 229E (PCR) Not detected (NOT DETECT) 01/04/23 16:36 SARS-CoV-2 (PCR) Not detected (NOT DETECT) 01/04/23 16:36 Discharge Plan Discharge Patient Disposition: Admitted As Inpatient Admit Provider: Leodan Gay Clinical Impression: Cholecystitis Condition: Stable Discharge Diet: Usual diet Discharge Activity: Increase activity as tolerated Coding Level of Care Code ED Fruit Thinner Machine Operator for Chg Fwd Documented by User: Schuyler Smith MD 01/05/23 01:08 HPI - General Adult General: Chief complaint: General Medical Stated complaint: weakness/chills/anxiety Time Seen by Provider: 01/04/23 16:13 PFSH ED PFSH: Medical History Acute cystitis Altered mental status Aortic stenosis Had TAVR replacement 2017 Atrial fibrillation Atrial fibrillation with slow ventricular response Bilateral renal masses CHF (congestive heart failure) EF 45 by transesophageal echo January 2019 Chronic antibiotic suppression Chronic anticoagulation coumadin Chronic urinary tract infection, suppressed Chronic use of steroids Complex renal cyst Congestive heart failure CVA (cerebral vascular accident) Dementia Diabetes Dyslipidemia Endocarditis history of chronic viridans endocarditis, 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 Essential hypertension Gout High risk medication use arava and chronic steroids 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 Ischemic cardiomyopathy Left ventricular hypertrophy Liver cirrhosis Obesity AJAY (obstructive sleep apnea) Pre-syncope Pulmonary HTN Pyelonephritis of right kidney Recurrent UTI Multidrug-resistant organisms Renal calculi Restrictive lung disease Rheumatoid arthritis Rheumatoid arthritis Shoulder pain Skin lesion Syncope Syncope and collapse Thalassemia Urinary tract infection due to ESBL Klebsiella Surgical History H/O lithotripsy S/P TAVR (transcatheter aortic valve replacement) (~2018) Family History Mother Stroke Father Myocardial infarction Other CAD (coronary artery disease) Chronic kidney disease (CKD) Diabetes Hypertension Social History Smoking and tobacco status: former smoker Quit status (tobacco): has quit using tobacco Year quit tobacco: 2019 - Chewing Tobacco Former quit date comment: Hx of 1/2 can x 50 Years Second hand smoke exposure: No Alcohol intake: former Lives independently: No Household members: spouse Marital status: Current occupational status: retired and disabled Current gender identity: Male Physical Exam GI: PALPATION: Yes Tenderness to palpation present (GI) Details: RUQ Course Vital Signs: Vital signs: Vital Signs Temperature 97.8 F 01/07/23 16:00 Pulse Rate 78 01/07/23 16:00 Respiratory Rate 20 H 01/07/23 16:00 Blood Pressure 123/60 01/07/23 16:00 Pulse Oximetry 95 01/07/23 16:00 Oxygen Delivery Me thod 01/07/23 16:00 Oxygen Flow Rate 2 01/07/23 08:00 MDM - General Adult Medical Decision Making Patient holding warfarin for anticipated procedure Patient presents here with right upper quadrant pain with tenderness he does have a cholecystitis have spoke to surgeon on-call will start antibiotics and admit to the hospitalist Dr. Gay. Lab Data 01/04/23 17:14 01/04/23 17:14 Radiology Impressions Chest X-Ray 01/04/23 16:44 IMPRESSION: No acute findings. Chest/Abdomen/Pelvis CT 01/04/23 18:46 IMPRESSION: 1. Very minimal posterior pleural effusions and mild bibasilar atelectasis. 2. Minimal pericardial effusion. 3. Atherosclerotic vascular disease including coronary artery disease. 4. Previous TAVR. IMPRESSION: 1. 6 x 8 mm calcified stone at the right ureteropelvic junction without significant hydronephrosis at this time. 2. Tiny punctate nonobstructing bilateral renal calculi. 3. Cholelithiasis with possible developing acute cholecystitis. 4. Colonic diverticulosis without CT evidence of diverticulitis. 5. Redemonstrated fat containing umbilical hernia measuring approximately 7 x 6 x 9 cm with adjacent periumbilical superficial soft tissue edema versus cellulitis/panniculitis. Head CT 01/04/23 18:46 IMPRESSION: 1. Moderate cerebral atrophy and leukoencephalopathy. 2. Advanced leukoencephalopathy for the patient's age; correlation with diabetes, hypertension, vasculitis, Lyme disease, recreational drug use or multiple sclerosis is recommended. Gallbladder Ultrasound 01/04/23 22:04 IMPRESSION: 1. Findings consistent with acute cholecystitis. 2. Multiple right renal cysts and small nonobstructing calculi. Laboratory Results WBC 12.4 10^3/uL (4.0-10.0) H 01/04/23 17:14 RBC 6.20 10^6/uL (4.1-5.3) H 01/04/23 17:14 Hgb 10.5 g/dL (11.7-16.6) L 01/04/23 17:14 Hct 36.0 % (42.0-52.0) L 01/04/23 17:14 MCV 58.1 fl (80-94) L 01/04/23 17:14 MCH 16.9 pg (28.0-34.0) L 01/04/23 17:14 MCHC 29.2 g/dL (30.0-36.0) L 01/04/23 17:14 RDW 21.0 % (12.1-15.1) H 01/04/23 17:14 Plt Count 364 10^3/cmm (130-400) 01/04/23 17:14 MPV 10.3 fL (7.4-10.4) 01/04/23 17:14 Neut % (Auto) 75.4 % 01/04/23 17:14 Lymph % (Auto) 15.6 % 01/04/23 17:14 [place] % (Auto) 6.8 % 01/04/23 17:14 Eos % (Auto) 1.5 % 01/04/23 17:14 Baso % (Auto) 0.5 % 01/04/23 17:14 Neut # (Auto) 9.30 10^3/uL (1.8-7.7) H 01/04/23 17:14 Lymph # (Auto) 1.9 10^3/uL (0.8-4.8) 01/04/23 17:14 [place] # (Auto) 0.8 10^3/uL (0.2-0.9) 01/04/23 17:14 Eos # (Auto) 0.2 10^3/uL (0.0-0.8) 01/04/23 17:14 Baso # (Auto) 0.1 10^3/uL (0.0-0.1) 01/04/23 17:14 Nucleated RBC % (auto) 0 % 01/04/23 17:14 Nucleated RBCs # 0.0 /100WBC 01/04/23 17:14 Sodium 140 mmol/L (136-145) 01/04/23 17:14 Potassium 3.9 mmol/L (3.5-5.1) 01/04/23 17:14 Chloride 102 mmol/L (98-107) 01/04/23 17:14 Carbon Dioxide 26 mmol/L (22-29) 01/04/23 17:14 Anion Gap 15.9 (5-19) 01/04/23 17:14 BUN 40 mg/dL (8-23) H 01/04/23 17:14 Creatinine 1.1 mg/dL (0.7-1.2) 01/04/23 17:14 GFR Calculation 66.4 mL/min (90-130) L 01/04/23 17:14 Glucose 193 mg/dL (65-115) H 01/04/23 17:14 POC Glucose 151 mg/dL (70-110) H 01/04/23 23:28 Calculated Osmolality 305 mOsm/kg (285-295) H 01/04/23 17:14 Lactate 1.6 mmol/L (0.5-2.2) 01/04/23 17:14 Calcium 9.2 mg/dL (8.5-10.5) 01/04/23 17:14 Total Bilirubin 1.1 mg/dL (0.15-1.2) 01/04/23 17:14 AST 15 U/L (0-40) 01/04/23 17:14 ALT 9 U/L (0-41) 01/04/23 17:14 Alkaline Phosphatase 79 U/L (40-130) 01/04/23 17:14 C-Reactive Protein 45.0 mg/L (0.0-4.9) H 01/04/23 17:14 Total Protein 6.5 g/dL (6.6-8.7) L 01/04/23 17:14 Albumin 3.3 g/dL (3.5-5.2) L 01/04/23 17:14 Globulin 3.2 g/dL (1.3-4.6) 01/04/23 17:14 Procalcitonin 0.15 ng/mL (0-0.5) 01/04/23 17:14 TSH 0.98 uIU/mL (0.27-4.20) 01/04/23 17:14 Urine Color Yellow (Yellow) 01/04/23 17:01 Urine Appearance Clear (CLEAR) 01/04/23 17:01 Urine pH 5 (5-7) 01/04/23 17:01 Ur Specific [place] 1.015 (1.005-1.030) 01/04/23 17:01 Urine Protein Neg (Negative) 01/04/23 17:01 Urine Glucose (UA) Norm (Normal) 01/04/23 17:01 Urine Ketones Negative (Negative) 01/04/23 17:01 Urine Blood Neg (Negative) 01/04/23 17:01 Urine Nitrate Negative (Negative) 01/04/23 17:01 Urine Bilirubin Neg (Negative) 01/04/23 17:01 Urine Urobilinogen Neg mg/dL (Negative) 01/04/23 17:01 Ur Leukocyte Esterase Negative (Negative) 01/04/23 17:01 Coronavirus 229E (PCR) Not detected (NOT DETECT) 01/04/23 16:36 SARS-CoV-2 (PCR) Not detected (NOT DETECT) 01/04/23 16:36 Discharge Plan Discharge Patient Disposition: Admitted As Inpatient Admit Provider: Leodan Gay Clinical Impression: Cholecystitis Condition: Stable Discharge Diet: Usual diet Discharge Activity: Increase activity as tolerated Coding Level of Care Code ED Fruit Thinner Machine Operator for Janyg Kalie
--- NOTE | 2023-01-04 16:44 | XRR_ITS ---
PROCEDURE INFORMATION: Exam: XR Chest Exam date and time: 01/04/2023 6:11 PM Age: 67 years old Clinical indication: Shortness of breath; Additional info: SOB TECHNIQUE: Imaging protocol: Radiologic exam of the chest. Views: 1 view. COMPARISON: CR XR chest 1V portable [id number] 12/23/2022 3:37 PM FINDINGS: Lungs: No consolidation. Pleural spaces: No pleural effusion. No pneumothorax. Heart/Mediastinum: Sequela of TAVR. No cardiomegaly. Bones/joints: Visualized osseous structures are intact. XR/XR chest 1V portable [id number] IMPRESSION: No acute findings.
[2023-01-04 17:24] LABS: Add Urine Microscopic? NO; Charge for UA Resulting for Rev
[2023-01-04 17:38] LABS: Bilirubin Urine Neg (Negative); Blood Urine Neg (Negative); Glucose Urine UA Norm (Normal); Ketones Urine Negative (Negative); Leukocyte Esterase Urine Negative (Negative); Nitrate Urine Negative (Negative); Protein Urine Neg (Negative); Specific Gravity, Urine 1.015 (1.005-1.030); Urine Appearance Clear (CLEAR); Urine Color Yellow (Yellow); Urobilinogen Urine Neg (Negative); pH Urine 5 (5-7)
[2023-01-04 17:41] LABS: Basophils # 0.1 10^3/uL (0.0-0.1); Basophils % 0.5 %; Eosinophils # 0.2 10^3/uL (0.0-0.8); Eosinophils % 1.5 %; Hemoglobin 10.5 g/dL (11.7-16.6); Lymphocytes # 1.9 10^3/uL (0.8-4.8); Lymphocytes % 15.6 %; Mean Corpuscular HGB Conc 29.2 g/dL (30.0-36.0); Mean Corpuscular Hemoglobin 16.9 pg (28.0-34.0); Mean Corpuscular Volume 58.1 fl (80-94); Monocytes # 0.8 10^3/uL (0.2-0.9); Monocytes % 6.8 %; Neutrophils % 75.4 %; Nucleated Red Blood Cells % 0 %; Platelet Count 364 10^3/cmm (130-400); White Blood Count 12.4 10^3/uL (4.0-10.0)
[2023-01-04 17:57] LABS: Lactate (Lactic Acid level) 1.6 mmol/L (0.5-2.2)
[2023-01-04 18:10] LABS: Procalcitonin 0.15 ng/mL (0-0.5); Thyroid Stimulating Hormone 0.98 uIU/mL (0.27-4.20)
[2023-01-04 18:21] LABS: Alanine Aminotransferase 9 U/L (0-41); Albumin Level 3.3 g/dL (3.5-5.2); Alkaline Phosphatase 79 U/L (40-130); Anion Gap 15.9 (5-19); Aspartate Amino Transferase 15 U/L (0-40); Blood Urea Nitrogen 40 mg/dL (8-23); Calcium 9.2 mg/dL (8.5-10.5); Carbon Dioxide 26 mmol/L (22-29); Chloride 102 mmol/L (98-107); Globulin 3.2 g/dL (1.3-4.6); Glomerular Filtration Rate 66.4 mL/min (90-130); Glucose 193 mg/dL (65-115); Osmolality Calculated 305 mOsm/kg (285-295); Potassium 3.9 mmol/L (3.5-5.1); Sodium 140 mmol/L (136-145); Total Bilirubin 1.1 mg/dL (0.15-1.2); Total Protein 6.5 g/dL (6.6-8.7)
[2023-01-04 18:22] LABS: Mean Platelet Volume 10.3 fL (7.4-10.4)
[2023-01-04 18:42] LABS: Adenovirus Not Detected (NOT DETECT); Chlamydia Pneumoniae Not Detected (NOT DETECT); Coronavirus 229E,HKU1,NL63,OC4 Not Detected (NOT DETECT); Human Metapneumovirus Not Detected (NOT DETECT); Human Rhinovirus/Enterovirus Not Detected (NOT DETECT); Influenza A Not Detected (NOT DETECT); Influenza A H1 Not Detected (NOT DETECT); Influenza A H1-2009 Not Detected (NOT DETECT); Influenza A H3 Not Detected (NOT DETECT); Influenza B Not Detected (NOT DETECT); Mycoplasma Pneumoniae Not Detected (NOT DETECT); Parainfluenza Virus Type 1 Not Detected (NOT DETECT); Parainfluenza Virus Type 2 Not Detected (NOT DETECT); Parainfluenza Virus Type 3 Not Detected (NOT DETECT); Parainfluenza Virus Type 4 Not Detected (NOT DETECT); Respiratory Syncytial Virus A Not Detected (NOT DETECT); Respiratory Syncytial Virus B Not Detected (NOT DETECT); SARS-COV-2 Not Detected (NOT DETECT)
--- NOTE | 2023-01-04 18:46 | CTR_ITS ---
PROCEDURE INFORMATION: Exam: CT Head Without Contrast Exam date and time: 01/04/2023 8:24 PM Age: 67 years old Clinical indication: Altered mental status/memory loss; Additional info: AMS TECHNIQUE: Imaging protocol: Computed tomography of the head without contrast. Radiation optimization: All CT scans at this facility use at least one of these dose optimization techniques: automated exposure control; mA and/or kV adjustment per patient size (includes targeted exams where dose is matched to clinical indication); or iterative reconstruction. Other protocol: This patient has received 8 known CTs and 0 known cardiac nuclear medicine studies in the 12 months prior to the current study. COMPARISON: CT head wo con* [id number] 11/05/2022 10:36 PM RADIATION DOSE METRICS: Total DLP (mGy-cm): 244.38 FINDINGS: Brain: Stable chronic left frontal lobe infarct with encephalomalacia. Suresh cisterna magna which is a normal variant. Severe calcified intracranial atherosclerotic vessel disease. Stable one or more chronic right lacunar basal ganglia infarcts. Moderate cerebral atrophy and leukoencephalopathy. Advanced leukoencephalopathy for the patient's age; correlation with diabetes, hypertension, vasculitis, Lyme disease, recreational drug use or multiple sclerosis is recommended. Cerebral ventricles: No ventriculomegaly. Paranasal sinuses: Visualized sinuses are unremarkable. No fluid levels. Mastoid air cells: Visualized mastoid air cells are well aerated. Bones/joints: Unremarkable. No acute fracture. Soft tissues: Unremarkable. CT/CT head wo con* [id number] IMPRESSION: 1. Moderate cerebral atrophy and leukoencephalopathy. 2. Advanced leukoencephalopathy for the patient's age; correlation with diabetes, hypertension, vasculitis, Lyme disease, recreational drug use or multiple sclerosis is recommended.
--- NOTE | 2023-01-04 18:46 | CTR_ITS ---
PROCEDURE INFORMATION: Exam: CT Chest Without Contrast; Diagnostic Exam date and time: 01/04/2023 8:29 PM Age: 67 years old Clinical indication: Pain; Other: RT flank; On breathing; Additional info: Generalized weakness, n/v, cough, RT flank pain TECHNIQUE: Imaging protocol: Diagnostic computed tomography of the chest without contrast. Radiation optimization: All CT scans at this facility use at least one of these dose optimization techniques: automated exposure control; mA and/or kV adjustment per patient size (includes targeted exams where dose is matched to clinical indication); or iterative reconstruction. Other protocol: This patient has received 8 known CTs and 0 known cardiac nuclear medicine studies in the 12 months prior to the current study. COMPARISON: [place] [id number] 12/16/2022 9:09 AM RADIATION DOSE METRICS: Total DLP (mGy-cm): 1597.14 FINDINGS: Limitations: Mild motion and streak artifact. Lungs: Mild bibasilar atelectasis. Pleural spaces: Very minimal posterior pleural effusions. Heart: Heart size within normal limits. Previous transcatheter aortic valve repair appliance in place. Minimal pericardial effusion. Coronary arteries: Coronary artery calcifications. Lymph nodes: No enlarged lymph nodes. Vasculature: Ectatic, tortuous and calcified thoracic aorta. Anatomic variant aberrant right subclavian artery. Bones/joints: No acute osseous abnormality. No acute fracture. Soft tissues: No significant soft tissue abnormalities. Other findings: Left posterior oblique positioning of the patient in the scanner. PROCEDURE INFORMATION: Exam: CT Abdomen And Pelvis Without Contrast Exam date and time: 01/04/2023 8:29 PM Age: 67 years old Clinical indication: Pain; Other: RT flank; On breathing; Additional info: Generalized weakness, n/v, cough, RT flank pain TECHNIQUE: Imaging protocol: Computed tomography of the abdomen and pelvis without contrast. Radiation optimization: All CT scans at this facility use at least one of these dose optimization techniques: automated exposure control; mA and/or kV adjustment per patient size (includes targeted exams where dose is matched to clinical indication); or iterative reconstruction. Other protocol: This patient has received 8 known CTs and 0 known cardiac nuclear medicine studies in the 12 months prior to the current study. COMPARISON: 1. [place] [id number] 12/16/2022 9:[address] abdomen pelvis w con* [id number] 07/12/2021 11:58 AM RADIATION DOSE METRICS: Total DLP (mGy-cm): 1597.14 FINDINGS: Limitations: Mild motion and streak artifact. Liver: No acute abnormality on noncontrast imaging. Gallbladder and bile ducts: Tiny calcified gallstones within the posterior gallbladder fundus/neck with mild gallbladder wall thickening and minimal pericholecystic fluid. Pancreas: No acute abnormality. No ductal dilation. Spleen: No acute abnormality. Adrenal glands: No significant or acute abnormality. Kidneys and ureters: 6 x 8 mm calcified stone at the right ureteropelvic junction without significant hydronephrosis at this time. Tiny punctate nonobstructing bilateral renal calculi. Redemonstrated multiple right renal cysts including 4.7 cm posteromedial right renal upper pole cyst. Redemonstrated exophytic lateral left renal mildly hyperdense lesions measuring up to 6.6 cm consistent with hemorrhagic or proteinaceous cysts. Left renal lesions have been described on multiple older reports dating back to 12/11/2017. Stomach and bowel: Nondistended stomach. No significant or disproportionate large or small bowel distention. Colonic diverticulosis without CT evidence of diverticulitis. Appendix: No findings to suggest acute appendicitis. Intraperitoneal space: No significant fluid collection. No free air. Vasculature: Diffuse atherosclerotic vascular calcification. No abdominal aortic aneurysm. Lymph nodes: No enlarged lymph nodes. Urinary bladder: Nondistended urinary bladder. No bladder calculi. Reproductive: Redemonstrated chronic prostate calcifications. Bones/joints: No acute osseous abnormality. No dislocation. Soft tissues: Redemonstrated fat containing umbilical hernia measuring approximately 7 x 6 x 9 cm with adjacent periumbilical superficial soft tissue edema versus cellulitis/panniculitis. Other findings: Left posterior oblique positioning of the patient in the scanner. CT/[place] [id number] IMPRESSION: 1. Very minimal posterior pleural effusions and mild bibasilar atelectasis. 2. Minimal pericardial effusion. 3. Atherosclerotic vascular disease including coronary artery disease. 4. Previous TAVR. IMPRESSION: 1. 6 x 8 mm calcified stone at the right ureteropelvic junction without significant hydronephrosis at this time. 2. Tiny punctate nonobstructing bilateral renal calculi. 3. Cholelithiasis with possible developing acute cholecystitis. 4. Colonic diverticulosis without CT evidence of diverticulitis. 5. Redemonstrated fat containing umbilical hernia measuring approximately 7 x 6 x 9 cm with adjacent periumbilical superficial soft tissue edema versus cellulitis/panniculitis.
[2023-01-04] MEDS: acetaminophen 500 mg Tablet 1000 MG PO (18:53)
--- NOTE | 2023-01-04 22:04 | USR_ITS ---
PROCEDURE INFORMATION: Exam: US Abdomen, Limited; Right Upper Quadrant Exam date and time: 01/04/2023 11:42 PM Age: 67 years old Clinical indication: Abnormal findings; Abnormal radiologic finding of the abdomen; Radiologic exam and body structure: CT tonight; Additional info: Abnormal CT TECHNIQUE: Imaging protocol: Real time ultrasound of the abdomen with image documentation. Limited exam focused on the right upper quadrant. COMPARISON: 1. CT chest abdpel w/*[id number] 01/04/2023 8:29 PM 2. US gall bladder [id number] 01/16/2020 10:31 PM FINDINGS: Limitations: Exam is limited secondary to large body habitus. Liver: No acute abnormality. No intrahepatic ductal dilatation. Gallbladder: Tiny calcified gallstone previously demonstrated within the gallbladder neck/cystic duct not well visualized on the current ultrasound. Gallbladder wall thickening measuring up to 8 mm in thickness. Pericholecystic fluid. Labour Market Economist reports a positive sonographic Jarrett sign. Biliary ducts: Common bile duct measures 5.8 mm in diameter. Pancreas: Pancreas obscured by bowel gas. Right kidney: Multiple right renal cysts and small nonobstructing calculi. Other findings: No hydronephrosis. US/US gall bladder [id number] IMPRESSION: 1. Findings consistent with acute cholecystitis. 2. Multiple right renal cysts and small nonobstructing calculi.
[2023-01-04] MEDS: morphine 4 mg/mL SDV 1 mL IVP (23:15)
[2023-01-04 23:31] LABS: Glucose Point of Care 151 mg/dL (70-110)
--- NOTE | 2023-01-04 23:34 | PC.NURSE ---
Patient placed on 1L NC for sats at mid 80s after Pain Medication admin.
[2023-01-05] VITALS (9 sets, daily range): BP systolic 103–172; BP diastolic 67–82; PULSE 61–96; RESP 15–22; TEMP 36.5–37.1; O2SAT 89–100
[2023-01-05] MEDS: piperacillin-tazobactam 3.375 GM in sodium chloride 0.9% (plus) 50 ML IV ×2 (00:34→09:45)
--- NOTE | 2023-01-05 00:45 | ECG_ITS ---
[facility] Test Date: 2023-01-05 Pat Name: Ry Loyd Department: Room: Gender: Male Lock Master: : 1955 Requested By: Schuyler Smith Order Number: [id number] Morena MD: Layla Cazares M.D. Measurements Intervals [place] Rate: 83 P: 0 CO: 0 QRS: -33 QRSD: 95 T: 95 QT: 388 QTc: 458 Interpretive Statements ATRIAL FIBRILLATION LEFT AXIS DEVIATION [QRS AXIS < -30] LOW QRS VOLTAGE IN PRECORDIAL LEADS [QRS DEFLECTION < 1.0 mV IN CHEST LEADS] PATTERN CONSISTENT WITH PULMONARY DISEASE NONSPECIFIC T-WAVE ABNORMALITY Compared to ECG 12/23/2022 17:07:19 Left-axis deviation now present Low QRS voltage now present Atrial-paced complex(es) or rhythm no longer present Left ventricular hypertrophy no longer present T-wave abnormality still present Electronically Signed On 01-05-2023 20:00:23 TRACK LEADER by Layla Cazares M.D. [id number]
--- NOTE | 2023-01-05 01:07 | PM.HP ---
Providers/Chief Complaint Primary Care Provider: ALTAF Russell Chief Complaint: weakness/chills/anxiety History of Present Illness 67-year-old gentleman with significant past medical history of chronic atrial fibrillation on warfarin, aortic stenosis s/p TAVR, chronic recurrent UTI, CVA diabetes, endocarditis, gout, pulmonary hypertension, ischemic cardiomyopathy, was brought in with chief complaint of generalized weakness and not feeling well overall for the last few days. CT chest abdomen and pelvis showed: Very minimal posterior pleural effusions and mild bibasilar atelectasis. Minimal pericardial effusion.6 x 8 mm calcified stone at the right ureteropelvic junction without significant hydronephrosis at this time.Tiny punctate nonobstructing bilateral renal calculi. Cholelithiasis with possible developing acute cholecystitis. Ultrasound gallbladder: Findings are consistent with acute cholecystitis. Pertinent labs: WBC 12.4, H&H 10 and 36,plt: 364 , serum sodium 140, serum potassium 3.9, BUN 40 serum creatinine 1.1, serum lactate 1.6, AST ALT alk phos total bilirubin normal, procalcitonin normal, TSH normal, urinalysis clean. Patient was given 1 dose of Zosyn in the ER. Review of Systems General: Reports: 10 or more systems reviewed and unremarkable except in HPI and below Const: Denies: fever(s), chills, body aches, change in appetite or diaphoresis Card: Denies: palpitations, edema, swelling of feet/ankles, dyspnea on exertion, orthopnea or leg pain with exertion Resp: Denies: dyspnea, productive cough, wheezing or pain on inspiration GI: Reports: abdominal pain; Denies: nausea, vomiting, diarrhea or constipation : Denies: flank pain or difficulty urinating Musc: Denies: back pain, extremity pain or extremity swelling Neuro: Denies: headache(s), difficulty walking or confusion Medications/Allergies Home Medications Medication Instructions Recorded Confirmed Last Taken Type citalopram 10 mg tablet (Celexa) 10 mg PO QAM 12/03/19 01/04/23 01/04/23 History pantoprazole 40 mg tablet,delayed 40 mg PO DAILY@06 12/25/19 01/04/23 01/04/23 History release (Protonix) potassium chloride 20 mEq 20 meq PO DAILY 12/25/19 01/04/23 01/04/23 History tablet,extended release aspirin 81 mg tablet,delayed 81 mg PO BEDTIME 10/10/20 01/04/23 01/03/23 History release atorvastatin 40 mg tablet 40 mg PO DAILY@19 02/17/21 01/04/23 01/03/23 History diltiazem HCl 120 mg 120 mg PO DAILY@06 02/17/21 01/04/23 01/04/23 History capsule,extended release 24 hr Lactobacillus acidophilus 20 20,000 mmu cells PO BEDTIME 07/12/21 01/04/23 01/03/23 History billion cell capsule (Florajen Acidophilus) insulin glargine 100 unit/mL (3 25 unit SUBCUT BID 07/12/21 01/04/23 01/04/23 History mL) subcutaneous pen (Lantus Solostar U-100 Insulin) vit no.95-ferrous 1 tab PO DAILY@06 07/12/21 01/04/23 01/04/23 History fumarate 28 mg-folic acid 800 mcg tablet ( Multivitamins) acetaminophen 500 mg tablet 500 mg PO Q6H PRN Pain 12/29/21 01/04/23 12/22/22 History ascorbic acid (vitamin C) 500 mg 500 mg PO QPM 07/13/22 01/04/23 01/03/23 History tablet (Vitamin C) nitroglycerin 0.4 mg sublingual 0.4 mg sublingual Q5M PRN Chest 07/13/22 01/04/23 12/22/22 History tablet (Nitrostat) Pain carvedilol 6.25 mg tablet 9.375 mg PO BID 11/04/22 01/04/23 01/04/23 History cholecalciferol (vitamin D3) 125 125 mcg PO QAM 11/04/22 01/04/23 01/04/23 History mcg (5,000 unit) tablet (Vitamin D3) warfarin 1 mg tablet 6 mg PO QPM 11/04/22 01/04/23 12/22/22 History fosfomycin tromethamine 3 gram 3 g PO Q3D chronic suppression for 11/06/22 01/04/23 01/02/23 Rx oral packet UTI 3 months #30 ea hydroxyzine pamoate 25 mg capsule 25 mg PO BID 12/15/22 01/04/23 01/04/23 History bumetanide 2 mg tablet 1 mg PO DAILY #60 tabs 12/23/22 01/04/23 01/04/23 Rx prednisone 5 mg tablet 10 mg PO QAM 01/04/23 01/04/23 01/04/23 History Allergies Allergy/AdvReac Type Severity Reaction Status Date / Time ceftriaxone [From Rocephin] Allergy Intermediate ALGY-Difficulty Verified 01/05/23 01:14 Breathing levofloxacin [From Levaquin] Allergy Mild ADR-Itching Verified 01/05/23 01:14 iodine Allergy Unknown Unknown Verified 01/05/23 01:14 Pork/Porcine Containing Allergy gout Verified 01/05/23 01:14 Products clopidogrel [From Plavix] AdvReac Intermediate Unknown Verified 01/05/23 01:14 PFSH Acute PFSH: Medical History (Updated 01/05/23 @ 01:09 by Leodan Gay MD) Acute cystitis Altered mental status Aortic stenosis Had TAVR replacement 2017 Atrial fibrillation Atrial fibrillation with slow ventricular response Bilateral renal masses CHF (congestive heart failure) EF 45 by transesophageal echo January 2019 Chronic antibiotic suppression Chronic anticoagulation coumadin Chronic urinary tract infection, suppressed Chronic use of steroids Complex renal cyst Congestive heart failure CVA (cerebral vascular accident) Dementia Diabetes Dyslipidemia Endocarditis history of chronic viridans endocarditis, 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 Essential hypertension Gout High risk medication use arava and chronic steroids 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 Hx of [place] spotted fever Ischemic cardiomyopathy Left ventricular hypertrophy Liver cirrhosis Obesity AJAY (obstructive sleep apnea) Pre-syncope Pulmonary HTN Pyelonephritis of right kidney Recurrent UTI Multidrug-resistant organisms Renal calculi Restrictive lung disease Rheumatoid arthritis Rheumatoid arthritis Shoulder pain Skin lesion Syncope Syncope and collapse Thalassemia Urinary tract infection due to ESBL Klebsiella Surgical History H/O lithotripsy S/P TAVR (transcatheter aortic valve replacement) (~2018) Family History Mother Stroke Father Myocardial infarction Other CAD (coronary artery disease) Chronic kidney disease (CKD) Diabetes Hypertension Social History Smoking and tobacco status: former smoker Quit status (tobacco): has quit using tobacco Year quit tobacco: 2019 - Chewing Tobacco Former quit date comment: Hx of 11/21 can x 50 Years Second hand smoke exposure: No Alcohol intake: former Lives independently: No Household members: spouse Marital status: Current occupational status: retired and disabled History of recent travel: No Current gender identity: Male Vitals/I&O/Wt Last Vital Signs Temp 98.7 F 01/04/23 18:08 Pulse 81 01/04/23 23:30 Resp 24 H 01/04/23 23:30 BP 113/59 01/04/23 23:30 Pulse Ox 96 01/04/23 23:30 O2 Del Method 01/04/23 23:30 Weight last 48 hrs Weight 117.934 kg Physical Exam Const: COMMON NORMALS: patient oriented x3 HENMT: COMMON NORMALS: normocephalic and atraumatic HEAD & SCALP: normocephalic and atraumatic Resp: COMMON NORMALS: clear to auscultation bilaterally AUSCULTATION: clear to auscultation bilaterally Cardio: COMMON NORMALS: S1 normal heart sound present, S2 normal heart sound present, No murmurs present (Cardio), No rub (Cardio) and Peripheral pulses 2+ throughout HEART SOUNDS: S1 normal heart sound present and S2 normal heart sound present PERIPHERAL PULSES: Peripheral pulses 2+ throughout GI: COMMON NORMALS: Normal to inspection, nondistended, normoactive bowel sounds present, Soft to palpation, non-tender, No hepatosplenomegaly present and no masses AUSCULTATION: Yes normoactive bowel sounds PALPATION: Yes Soft to palpation and Yes No hepatosplenomegaly present RECTAL EXAM: Yes deferred Extremity: COMMON NORMALS: no clubbing, cyanosis or edema and no pedal edema Neuro: COMMON NORMALS: patient oriented x3 Data 01/04/23 17:14 01/04/23 17:14 Micro: Microbiology 01/04/23 17:24 Blood Culture - Preliminary Blood SPECIMEN COLLECTED 01/04/23 17:14 Blood Culture - Preliminary Blood SPECIMEN COLLECTED A&P Assessment and plan (1) Cholecystitis: (2) Gout: (3) Right ureteral calculus: (4) Body mass index [BMI] 38.0-38.9, adult: (5) Atrial fibrillation: (6) Aortic stenosis: Plan 67-year-old gentleman with significant past medical history of chronic atrial fibrillation on warfarin, aortic stenosis s/p TAVR, chronic recurrent UTI, CVA diabetes, endocarditis, gout, pulmonary hypertension, ischemic cardiomyopathy, was brought in with chief complaint of generalized weakness and not feeling well overall for the last few days. Assessment; Acute cholecystitis: Currently n.p.o. Empirically covered with broad-spectrum antibiotics meropenem as he has history of ESBL in the past. Pain control Antiemetics Surgery on board History of chronic atrial fibrillation: Currently heart rate is well controlled. Currently on carvedilol as well as Cardizem. Takes warfarin for anticoagulation, currently on hold, has not taken in the last 2 to 3 days. PT/INR has been ordered. Diabetes: LDSSI, monitor fingerstick glucose Right ureteral calculus: Follow urology as outpatient Sees Dr. Berkowitz CT abdomen and pelvis has not shown any significant change as compared to past. Urology can be consulted if needed CODE STATUS: Full code DVT PPX : On SCD Attestations Medical Necessity Statement*: Patient is in hospital for management of acute cholecystitis. Anticipated length of stay greater than 2 midnights Coding Level of Care Code 01436 Diagnoses Cholecystitis K81.9 Gout M10.9 Right ureteral calculus N20.1 Body mass index [BMI] 38.0-38.9, adult Z68.38 Atrial fibrillation I48.91 Aortic stenosis I35.0
[2023-01-05] MEDS: meropenem 500 MG in sodium chloride 0.9% (plus) 50 ML 100 MG IV ×2 (03:18→17:31)
[2023-01-05 06:45] LABS: Glucose Point of Care 154 mg/dL (70-110)
[2023-01-05] MEDS: sodium chloride 0.9% 1,000 ML 50 ML IV (06:52)
[2023-01-05 07:18] LABS: Basophils # 0.1 10^3/uL (0.0-0.1); Basophils % 0.7 %; Eosinophils # 0.2 10^3/uL (0.0-0.8); Eosinophils % 2.2 %; Hematocrit 30.8 % (42.0-52.0); Lymphocytes # 1.7 10^3/uL (0.8-4.8); Mean Corpuscular HGB Conc 29.2 g/dL (30.0-36.0); Mean Corpuscular Hemoglobin 16.6 pg (28.0-34.0); Mean Corpuscular Volume 56.7 fl (80-94); Monocytes # 0.7 10^3/uL (0.2-0.9); Monocytes % 7.1 %; Neutrophils # 7.73 10^3/uL (1.8-7.7); Neutrophils % 73.8 %; Nucleated Red Blood Cells % 0 %; Platelet Count 278 10^3/cmm (130-400); Red Blood Count 5.43 10^6/uL (4.1-5.3); Red Cell Distribution Width 19.6 % (12.1-15.1); White Blood Count 10.5 10^3/uL (4.0-10.0)
[2023-01-05 07:36] LABS: Alanine Aminotransferase 9 U/L (0-41); Albumin Level 2.9 g/dL (3.5-5.2); Alkaline Phosphatase 79 U/L (40-130); Anion Gap 13.4 (5-19); Aspartate Amino Transferase 16 U/L (0-40); Blood Urea Nitrogen 33 mg/dL (8-23); Calcium 8.7 mg/dL (8.5-10.5); Carbon Dioxide 26 mmol/L (22-29); Chloride 104 mmol/L (98-107); Globulin 3.1 g/dL (1.3-4.6); Glomerular Filtration Rate 83.7 mL/min (90-130); Glucose 148 mg/dL (65-115); Osmolality Calculated 300 mOsm/kg (285-295); Potassium 3.4 mmol/L (3.5-5.1); Sodium 140 mmol/L (136-145); Total Bilirubin 1.1 mg/dL (0.15-1.2)
[2023-01-05 07:47] LABS: Slide Review Slide Review Perform
[2023-01-05 07:50] LABS: Mean Platelet Volume 9.8 fL (7.4-10.4)
--- NOTE | 2023-01-05 09:53 | ANES.PREANE2 ---
Pre-Anesthetic Assessment Height/Weight: Height 1.8 m Weight 117.112 kg Temp Pulse Resp BP Pulse Ox O2 Del Method 97.9 F 75 18 121/75 100 01/05/23 08:00 01/05/23 08:00 01/05/23 08:00 01/05/23 08:00 01/05/23 08:00 01/05/23 08:00 Preop Diagnosis: Acute Cholecystitis Operation Date: 01/05/23 13:15 Proposed Procedures p Laparoscopic Cholecystectomy(Not Applicable) - Gary English DO Familial anesthetic complications: none Was Beta Caridad taken within 24 hours: Yes Was Clonidine taken within 24 hours: N/A Last intake: Intake Last Liquid Date 01/04/23 Last Liquid Time 21:00 Last Solid Date 01/04/23 Last Solid Time 21:00 Last Intake: 21:00 Social No alcohol and No tobacco Exam alert and oriented x 3 pt with Irreg HB and orlin low lobe rhonchi and exp wheezes noted Airway Submandibular: within normal limits Cervical ROM: within normal limits Mallampati: Class II Dentition: full (very poor decayed with multiple missing) Pulmonary Chronic Obstructive Pulmonary Disease, Exertional Dyspnea, Sleep Apnea and Shortness of Breath Pt with noted with conversation CV/HEM Atrial Fibrillation, Coronary Artery Disease, Congestive Heart Failure (EF 45% on last echo) and Hypertension Pt with with TAVR Chronic Renal Insufficiency Hepatic None reported GI Gastroesophageal Reflux Disease Metabolic Diabetes Mellitus and Morbid Obesity Musc/skel Lower Back Pain and Osteoarthritis/DJD Neuropsych Cerebrovascular Accident (R side weakness) and Syncope Anesthetic Plan ASA status: 4 Anesthesia: General Risk of > 500 ml blood loss (7ml/kg in children): Yes, adequate IV access and fluids planned Medications/Allergies Home Medications Medication Instructions Recorded Confirmed Last Taken Type citalopram 10 mg tablet (Celexa) 10 mg PO QAM 12/03/19 01/04/23 01/04/23 History pantoprazole 40 mg tablet,delayed 40 mg PO DAILY@06 12/25/19 01/04/23 01/04/23 History release (Protonix) potassium chloride 20 mEq 20 meq PO DAILY 12/25/19 01/04/23 01/04/23 History tablet,extended release aspirin 81 mg tablet,delayed 81 mg PO BEDTIME 10/10/20 01/04/23 01/03/23 History release atorvastatin 40 mg tablet 40 mg PO DAILY@02/17/21 01/04/23 01/03/23 History diltiazem HCl 120 mg 120 mg PO DAILY@02/17/21 01/04/23 01/04/23 History capsule,extended release 24 hr Lactobacillus acidophilus 20 20,000 mmu cells PO BEDTIME 07/12/21 01/04/23 01/03/23 History billion cell capsule (Florajen Acidophilus) insulin glargine 100 unit/mL (3 25 unit SUBCUT BID 07/12/21 01/04/23 01/04/23 History mL) subcutaneous pen (Lantus Solostar U-100 Insulin) vit no.95-ferrous 1 tab PO DAILY@07/12/21 01/04/23 01/04/23 History fumarate 28 mg-folic acid 800 mcg tablet ( Multivitamins) acetaminophen 500 mg tablet 500 mg PO Q6H PRN Pain 12/29/21 01/04/23 12/22/22 History ascorbic acid (vitamin C) 500 mg 500 mg PO QPM 07/13/22 01/04/23 01/03/23 History tablet (Vitamin C) nitroglycerin 0.4 mg sublingual 0.4 mg sublingual Q5M PRN Chest 07/13/22 01/04/23 12/22/22 History tablet (Nitrostat) Pain carvedilol 6.25 mg tablet 9.375 mg PO BID 11/04/22 01/04/23 01/04/23 History cholecalciferol (vitamin D3) 125 125 mcg PO QAM 11/04/22 01/04/23 01/04/23 History mcg (5,000 unit) tablet (Vitamin D3) warfarin 1 mg tablet 6 mg PO QPM 11/04/22 01/04/23 12/22/22 History fosfomycin tromethamine 3 gram 3 g PO Q3D chronic suppression for 11/06/22 01/04/23 01/02/23 Rx oral packet UTI 3 months #30 ea hydroxyzine pamoate 25 mg capsule 25 mg PO BID 12/15/22 01/04/23 01/04/23 History bumetanide 2 mg tablet 1 mg PO DAILY #60 tabs 12/23/22 01/04/23 01/04/23 Rx prednisone 5 mg tablet 10 mg PO QAM 01/04/23 01/04/23 01/04/23 History Allergies Allergy/AdvReac Type Severity Reaction Status Date / Time ceftriaxone [From Rocephin] Allergy Intermediate ALGY-Difficulty Verified 01/05/23 01:14 Breathing levofloxacin [From Levaquin] Allergy Mild ADR-Itching Verified 01/05/23 01:14 iodine Allergy Unknown Unknown Verified 01/05/23 01:14 Pork/Porcine Containing Allergy gout Verified 01/05/23 01:14 Products clopidogrel [From Plavix] AdvReac Intermediate Unknown Verified 01/05/23 01:14 Current Medications Generic Name Dose Route Start Last Admin Trade Name Freq PRN Reason Stop Dose Admin Diltiazem HCl 120 mg 01/05/23 06:00 01/05/23 06:03 Diltiazem Er (24hr) 120 Mg Capsule PO Not Given DAILY@06 [facility] Meropenem 500 mg/ Sodium 50 mls @ 100 mls/hr 01/05/23 02:24 01/05/23 07:39 Chloride IV Infused Q8H [facility] Infusion Protocol Sodium Chloride 1,000 mls @ 50 mls/hr 01/05/23 06:30 01/05/23 06:52 Sodium Chloride 0.9% IV 50 mls/hr .Q20H PADMAJA Administration Vitamin D 5,000 unit 01/05/23 06:00 01/05/23 06:03 Cholecalciferol (Vitamin D3) 5,000 Unit Tablet PO Not Given QAM PADMAJA PFSH Anesthesia Medical History (Updated 01/05/23 @ 01:09 by Leodan Gay MD) Acute cystitis Altered mental status Aortic stenosis Had TAVR replacement 2017 Atrial fibrillation Atrial fibrillation with slow ventricular response Bilateral renal masses CHF (congestive heart failure) EF 45 by transesophageal echo January 2019 Chronic antibiotic suppression Chronic anticoagulation coumadin Chronic urinary tract infection, suppressed Chronic use of steroids Complex renal cyst Congestive heart failure CVA (cerebral vascular accident) Dementia Diabetes Dyslipidemia Endocarditis history of chronic viridans endocarditis, 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 Essential hypertension Gout High risk medication use arava and chronic steroids 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 Hx of [place] spotted fever Ischemic cardiomyopathy Left ventricular hypertrophy Liver cirrhosis Obesity AJAY (obstructive sleep apnea) Pre-syncope Pulmonary HTN Pyelonephritis of right kidney Recurrent UTI Multidrug-resistant organisms Renal calculi Restrictive lung disease Rheumatoid arthritis Rheumatoid arthritis Shoulder pain Skin lesion Syncope Syncope and collapse Thalassemia Urinary tract infection due to ESBL Klebsiella Surgical History H/O lithotripsy S/P TAVR (transcatheter aortic valve replacement) (~2018) Family History Mother Stroke Father Myocardial infarction Other CAD (coronary artery disease) Chronic kidney disease (CKD) Diabetes Hypertension Social History Smoking and tobacco status: former smoker Quit status (tobacco): has quit using tobacco Year quit tobacco: 2019 - Chewing Tobacco Former quit date comment: Hx of 1/2 can x 50 Years Second hand smoke exposure: No Alcohol intake: former Lives independently: No Household members: spouse Marital status: Current occupational status: retired and disabled History of recent travel: No Current gender identity: Male Data Anesthesia 01/05/23 07:10 01/05/23 07:10 Short CBC 01/04/23 01/05/23 Range/Units 17:14 07:10 WBC 12.4 H 10.5 H (4.0-10.0) 10^3/uL Hgb 10.5 L 9.0 L (11.7-16.6) g/dL Hct 36.0 L 30.8 L (42.0-52.0) % MCV 58.1 L 56.7 L (80-94) fl Plt Count 364 278 (130-400) 10^3/cmm Neut % (Auto) 75.4 73.8 % Neut # (Auto) 9.30 H 7.73 H (1.8-7.7) 10^3/uL BMP 01/04/23 01/05/23 17:14 07:10 Sodium 140 140 Potassium 3.9 3.4 L Chloride 102 104 Carbon Dioxide 26 26 BUN 40 H 33 H Creatinine 1.1 0.9 Glucose 193 H 148 H Calcium 9.2 8.7 Liver Function 01/04/23 01/05/23 Range/Units 17:14 07:10 Total Bilirubin 1.1 1.1 (0.15-1.2) mg/dL AST 15 16 (0-40) U/L ALT 9 9 (0-41) U/L Alkaline Phosphatase 79 79 (40-130) U/L Albumin 3.3 L 2.9 L (3.5-5.2) g/dL Urine 01/04/23 Range/Units 17:01 Urine Color Yellow (Yellow) Urine Appearance Clear (CLEAR) Urine pH 5 (5-7) Ur Specific [place] 1.015 (1.005-1.030) Urine Protein Neg (Negative) Urine Glucose (UA) Norm (Normal) Urine Ketones Negative (Negative) Urine Nitrate Negative (Negative) Urine Bilirubin Neg (Negative) Ur Leukocyte Esterase Negative (Negative) COVID Results 01/04/23 16:36 Coronavirus 229E (PCR) Not detected SARS-CoV-2 (PCR) Not detected Coags 01/04/23 01/05/23 17:14 01:08 PT 17.70 H INR 1.40 H C-Reactive Protein 45.0 H Microbiology 01/04/23 17:24 Blood Culture - Preliminary Blood SPECIMEN COLLECTED 01/04/23 17:14 Blood Culture - Preliminary Blood SPECIMEN COLLECTED Cardiac Studies: Echocardiogram 11/06/22
[2023-01-05] MEDS: sodium chloride 0.9% 1,000 ML 30 ML IV (09:57)
[2023-01-05] MEDS: ipratropium-albuterol 3 mL Neb INHALATION (10:08)
--- NOTE | 2023-01-05 10:08 | SUR.PREOP ---
10:05 nebulizer in progress.
--- NOTE | 2023-01-05 11:34 | PM.HP ---
Providers/Chief Complaint Admitting Physician: Leodan Gay MD Primary Care Provider: ALTAF Russell Chief Complaint: Abdominal pain History of Present Illness Ry Loyd is a 67 year old male, who is on Coumadin for A-fib, presented to the hospital with right upper quadrant abdominal pain. He reports he is getting abdominal pain for 3 months off and on but that this time its been hurting for 2 days. He does report some nausea but denies any emesis. He reports some diarrhea but denies any constipation. Denies any hematochezia and/or melena. The pain is sharp and intermittent, located in the right upper quadrant. The pain does not radiate to his back. Palpation and eating fatty foods make the pain worse. Nothing makes pain better. Review of Systems General: Reports: 10 or more systems reviewed and unremarkable except in HPI and below Medications/Allergies Home Medications Medication Instructions Recorded Confirmed Last Taken Type citalopram 10 mg tablet (Celexa) 10 mg PO QAM 12/03/19 01/04/23 01/04/23 History pantoprazole 40 mg tablet,delayed 40 mg PO DAILY@12/25/19 01/04/23 01/04/23 History release (Protonix) potassium chloride 20 mEq 20 meq PO DAILY 12/25/19 01/04/23 01/04/23 History tablet,extended release aspirin 81 mg tablet,delayed 81 mg PO BEDTIME 10/10/20 01/04/23 01/03/23 History release atorvastatin 40 mg tablet 40 mg PO DAILY@02/17/21 01/04/23 01/03/23 History diltiazem HCl 120 mg 120 mg PO DAILY@02/17/21 01/04/23 01/04/23 History capsule,extended release 24 hr Lactobacillus acidophilus 20 20,000 mmu cells PO BEDTIME 07/12/21 01/04/23 01/03/23 History billion cell capsule (Florajen Acidophilus) insulin glargine 100 unit/mL (3 25 unit SUBCUT BID 07/12/21 01/04/23 01/04/23 History mL) subcutaneous pen (Lantus Solostar U-100 Insulin) vit no.95-ferrous 1 tab PO DAILY@07/12/21 01/04/23 01/04/23 History fumarate 28 mg-folic acid 800 mcg tablet ( Multivitamins) acetaminophen 500 mg tablet 500 mg PO Q6H PRN Pain 12/29/21 01/04/23 12/22/22 History ascorbic acid (vitamin C) 500 mg 500 mg PO QPM 07/13/22 01/04/23 01/03/23 History tablet (Vitamin C) nitroglycerin 0.4 mg sublingual 0.4 mg sublingual Q5M PRN Chest 07/13/22 01/04/23 12/22/22 History tablet (Nitrostat) Pain carvedilol 6.25 mg tablet 9.375 mg PO BID 11/04/22 01/04/23 01/04/23 History cholecalciferol (vitamin D3) 125 125 mcg PO QAM 11/04/22 01/04/23 01/04/23 History mcg (5,000 unit) tablet (Vitamin D3) warfarin 1 mg tablet 6 mg PO QPM 11/04/22 01/04/23 12/22/22 History fosfomycin tromethamine 3 gram 3 g PO Q3D chronic suppression for 11/06/22 01/04/23 01/02/23 Rx oral packet UTI 3 months #30 ea hydroxyzine pamoate 25 mg capsule 25 mg PO BID 12/15/22 01/04/23 01/04/23 History bumetanide 2 mg tablet 1 mg PO DAILY #60 tabs 12/23/22 01/04/23 01/04/23 Rx prednisone 5 mg tablet 10 mg PO QAM 01/04/23 01/04/23 01/04/23 History Allergies Allergy/AdvReac Type Severity Reaction Status Date / Time ceftriaxone [From Rocephin] Allergy Intermediate ALGY-Difficulty Verified 01/05/23 01:14 Breathing levofloxacin [From Levaquin] Allergy Mild ADR-Itching Verified 01/05/23 01:14 iodine Allergy Unknown Unknown Verified 01/05/23 01:14 Pork/Porcine Containing Allergy gout Verified 01/05/23 01:14 Products clopidogrel [From Plavix] AdvReac Intermediate Unknown Verified 01/05/23 01:14 PFSH Acute PFSH: Medical History Acute cystitis Altered mental status Aortic stenosis Had TAVR replacement 2018 Atrial fibrillation Atrial fibrillation with slow ventricular response Bilateral renal masses CHF (congestive heart failure) EF 45 by transesophageal echo January 2019 Chronic antibiotic suppression Chronic anticoagulation coumadin Chronic urinary tract infection, suppressed Chronic use of steroids Complex renal cyst Congestive heart failure CVA (cerebral vascular accident) Dementia Diabetes Dyslipidemia Endocarditis history of chronic viridans endocarditis, 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 Essential hypertension Gout High risk medication use arava and chronic steroids 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 Hx of [place] spotted fever Ischemic cardiomyopathy Left ventricular hypertrophy Liver cirrhosis Obesity AJAY (obstructive sleep apnea) Pre-syncope Pulmonary HTN Pyelonephritis of right kidney Recurrent UTI Multidrug-resistant organisms Renal calculi Restrictive lung disease Rheumatoid arthritis Rheumatoid arthritis Shoulder pain Skin lesion Syncope Syncope and collapse Thalassemia Urinary tract infection due to ESBL Klebsiella Surgical History H/O lithotripsy S/P TAVR (transcatheter aortic valve replacement) (~2017) Family History Mother Stroke Father Myocardial infarction Other CAD (coronary artery disease) Chronic kidney disease (CKD) Diabetes Hypertension Social History Smoking and tobacco status: former smoker Quit status (tobacco): has quit using tobacco Year quit tobacco: 2019 - Chewing Tobacco Former quit date comment: Hx of 1/2 can x 50 Years Second hand smoke exposure: No Alcohol intake: former Lives independently: No Household members: spouse Marital status: Current occupational status: retired and disabled History of recent travel: No Current gender identity: Male Vitals/I&O/Wt Last Vital Signs Temp 97.9 F 01/05/23 08:00 Pulse 78 01/05/23 10:09 Resp 15 01/05/23 10:09 BP 121/75 01/05/23 08:00 Pulse Ox 100 01/05/23 10:09 O2 Del Method 01/05/23 10:09 O2 Flow Rate 2 01/05/23 10:09 01/04/23 01/05/23 01/05/23 22:59 06:59 14:59 Intake Total 170 / 170 50 / 50 Output Total Balance 169 / 169 50 / 50 Weight last 48 hrs Weight 258 lb 3 oz Weight 260 lb Physical Exam Narrative: General : Patient is well developed , no acute distress, oriented x3 Head : Normal cephalic, a-traumatic. Ears : Pinnae and external canal are normal. Hearing is normal. Eyes : PERRLA, Sclera and injection are normal. No conjunctival discharge. Nose : Mucous membranes are without erythema. Throat : buccal mucosa is normal, gums are without significant recession or hypertrophy. Lungs : Equal chest rise bilaterally, no use of accessory muscles, trachea is midline. Cor : Rate and rhythm are normal. Abdomen : Soft, ND, tender to palpation right upper quadrant, no g/r/m Extremities : No edema, no cyanosis or clubbing, dorsalis pedis pulses are present bilaterally, non-tender to palpation of calves. Upper extremities are normal bilaterally. Back : non-tender to palpation, no CVA tenderness. Neuro : CN II - XII intact, Upper and lower extremities have equal and full strength Data 01/05/23 07:10 01/05/23 07:10 Micro: Microbiology 01/04/23 17:24 Blood Culture - Preliminary Blood SPECIMEN COLLECTED 01/04/23 17:14 Blood Culture - Preliminary Blood SPECIMEN COLLECTED A&P Assessment and plan (1) Acute cholecystitis: Plan IV antibiotics IV fluids Pain medicine Laparoscopic cholecystectomy The risks and benefits of the procedure, including but not limited to, bleeding, infection, scar, numbness, pain, damage to surrounding structures, damage to common bile duct requiring additional surgery, conversion to an open procedure, were explained to the patient. He is understanding of the risks and wishes to proceed. Attestations Medical Necessity Statement*: Patient requires at least 1 more night in the hospital for IV antibiotics after laparoscopic cholecystectomy for acute cholecystitis. Coding Level of Care Code Acute Code for [facility] Diagnoses Acute cholecystitis K81.0
--- NOTE | 2023-01-05 12:15 | PM.MISC ---
Miscellaneous Note Note: Patient to go for cholecystectomy today. History physical document reviewed. Patient is n.p.o. since midnight. No other complaints at this time.
--- NOTE | 2023-01-05 12:40 | ECG_ITS ---
[facility] Test Date: 2023-01-05 Pat Name: Ry Loyd Department: Room: 268 Gender: Male Rn Shift Mgr: : 1955 Requested By: Jacob Reyes Order Number: [id number] Morena MD: Layla Cazares M.D. Measurements Intervals [place] Rate: 90 P: 0 ME: 0 QRS: -9 QRSD: 94 T: 139 QT: 340 QTc: 416 Interpretive Statements ATRIAL FIBRILLATION WITH ABERRANT CONDUCTION OR VENTRICULAR PREMATURE COMPLEXES NONSPECIFIC T-WAVE ABNORMALITY Compared to ECG 01/05/2023 00:51:47 Ventricular premature complex(es) now present Aberrant conduction of supraventricular beat(s) now present Left-axis deviation no longer present T-wave abnormality still present Electronically Signed On 01-05-2023 20:05:47 PROFESSOR OF THEOLOGY by Layla Cazares M.D. [email or web address] [id number]
--- NOTE | 2023-01-05 13:22 | PC.NURSE ---
pt transferred back to room 268. Dr. English cancelled surgery until further notice. RT in room with patient to place on bipap. Charge nurse notified of patients return
[2023-01-05 13:49] LABS: Glucose Point of Care 135 mg/dL (70-110)
--- NOTE | 2023-01-05 15:05 | ECG_ITS ---
[facility] Test Date: 2023-01-05 Pat Name: Ry Loyd Department: Room: 268 Gender: Male Shake Packer: : 1955 Requested By: Micheline Carey Order Number: [id number] Morena MD: Layla Cazares M.D. Measurements Intervals [place] Rate: 102 P: 0 ME: 0 QRS: -22 QRSD: 86 T: 153 QT: 313 QTc: 409 Interpretive Statements ATRIAL FIBRILLATION WITH RAPID VENTRICULAR RESPONSE BORDERLINE LEFT AXIS DEVIATION [QRS AXIS < -20] LOW QRS VOLTAGE IN PRECORDIAL LEADS [QRS DEFLECTION < 1.0 mV IN CHEST LEADS] PATTERN CONSISTENT WITH PULMONARY DISEASE NONSPECIFIC ST & T-WAVE ABNORMALITY Compared to ECG 01/05/2023 12:40:12 Low QRS voltage now present Ventricular premature complex(es) no longer present Aberrant conduction of supraventricular beat(s) no longer present T-wave abnormality still present Electronically Signed On 01-05-2023 20:07:20 TRAVEL MONEY ADVISOR by Layla Cazares M.D. [id number]
[2023-01-05 15:25] LABS: Troponin(5th) Baseline 54 ng/L (0-15)
[2023-01-05 16:59] LABS: Glucose Point of Care 168 mg/dL (70-110)
[2023-01-05 17:24] LABS: Troponin 5 2HR 51.45 ng/L (0-15); Troponin 5 2HR Delta -2.55 ABS# (0-10)
[2023-01-05] MEDS: hyDROXYzine 25 mg Capsule PO (17:37)
[2023-01-05] MEDS: carvedilol 6.25 mg Tablet 9.375 MG PO (17:37)
[2023-01-05] MEDS: insulin lispro 100 unit/1 mL SUBCUT ×2 (18:40→21:59)
[2023-01-05] MEDS: morphine 4 mg/mL SDV 1 mL 2 MG IVP (19:53)
[2023-01-05 20:17] LABS: Troponin 5 6HR 54.82 ng/L (0-15)
[2023-01-05 20:20] LABS: Troponin 5 6HR Delta 0.82 ng/L (0-12)
--- NOTE | 2023-01-05 21:05 | ECG_ITS ---
[facility] Test Date: 2023-01-05 Pat Name: Ry Loyd Department: Room: 268 Gender: Male Manager Ecommerce: : 1955 Requested By: Micheline Carey Order Number: [id number] Morena MD: Cassy Monreal M.D. Measurements Intervals [place] Rate: 93 P: 0 [place]: 0 QRS: -12 QRSD: 93 T: 156 QT: 337 QTc: 419 Interpretive Statements ATRIAL FIBRILLATION LOW QRS VOLTAGE IN PRECORDIAL LEADS [QRS DEFLECTION < 1.0 mV IN CHEST LEADS] MODERATE T-WAVE ABNORMALITY, CONSIDER LATERAL ISCHEMIA [-0.1+ mV T-WAVE IN I/aVL/V5/V6] Compared to ECG 01/05/2023 16:53:04 Possible ischemia now present T-wave abnormality still present Electronically Signed On 01-06-2023 17:05:18 CASHIER HOST/HOSTESS by Cassy Monreal M.D. [id number]
[2023-01-05 21:46] LABS: Glucose Point of Care 254 mg/dL (70-110)
[2023-01-06 00:09] VITALS: BP 106/66; PULSE 83; RESP 38; TEMP 37.7; O2SAT 87
[2023-01-06] MEDS: meropenem 500 MG in sodium chloride 0.9% (plus) 50 ML 50 MG IV (01:01)
[2023-01-06] MEDS: piperacillin-tazobactam 3.375 GM in sodium chloride 0.9% (plus) 50 ML IV ×2 (01:58→18:26)
[2023-01-06] MEDS: sodium chloride 0.9% 1,000 ML 50 ML IV ×2 (03:51→22:57)
[2023-01-06 04:44] LABS: Basophils # 0.1 10^3/uL (0.0-0.1); Basophils % 0.4 %; Eosinophils # 0.2 10^3/uL (0.0-0.8); Eosinophils % 1.7 %; Hemoglobin 8.7 g/dL (11.7-16.6); Lymphocytes # 1.8 10^3/uL (0.8-4.8); Lymphocytes % 16.4 %; Mean Corpuscular Hemoglobin 16.4 pg (28.0-34.0); Mean Corpuscular Volume 56.7 fl (80-94); Mean Platelet Volume 9.7 fL (7.4-10.4); Monocytes # 0.8 10^3/uL (0.2-0.9); Monocytes % 7.4 %; Neutrophils # 8.25 10^3/uL (1.8-7.7); Neutrophils % 73.7 %; Nucleated Red Blood Cells % 0 %; Platelet Count 253 10^3/cmm (130-400); Red Blood Count 5.29 10^6/uL (4.1-5.3); Red Cell Distribution Width 19.3 % (12.1-15.1); White Blood Count 11.2 10^3/uL (4.0-10.0)
[2023-01-06 04:55] LABS: Alanine Aminotransferase 8 U/L (0-41); Albumin Level 2.5 g/dL (3.5-5.2); Alkaline Phosphatase 62 U/L (40-130); Aspartate Amino Transferase 12 U/L (0-40); Blood Urea Nitrogen 28 mg/dL (8-23); Calcium 8.3 mg/dL (8.5-10.5); Carbon Dioxide 26 mmol/L (22-29); Chloride 104 mmol/L (98-107); Globulin 2.9 g/dL (1.3-4.6); Glomerular Filtration Rate 66.4 mL/min (90-130); Glucose 152 mg/dL (65-115); Osmolality Calculated 294 mOsm/kg (285-295); Sodium 138 mmol/L (136-145); Total Bilirubin 0.9 mg/dL (0.15-1.2); Total Protein 5.4 g/dL (6.6-8.7)
[2023-01-06] MEDS: dilTIAZem ER (24HR) 120 mg Capsule PO (05:15)
[2023-01-06] MEDS: cholecalciferol (vitamin D3) 5,000 unit Tablet 5000 UNIT PO (05:16)
[2023-01-06 05:41] VITALS: BP 131/80; PULSE 89; RESP 22; TEMP 36.9; O2SAT 99
[2023-01-06 07:04] LABS: Glucose Point of Care 160 mg/dL (70-110)
[2023-01-06 08:00] VITALS: BP 122/75; PULSE 83; RESP 17; TEMP 36.3; O2SAT 97
[2023-01-06 08:27] VITALS: PULSE 83; RESP 18; O2SAT 97
[2023-01-06] MEDS: meropenem 500 MG in sodium chloride 0.9% (plus) 50 ML 100 MG IV ×2 (08:51→17:21)
[2023-01-06] MEDS: hyDROXYzine 25 mg Capsule PO ×2 (08:53→17:23)
[2023-01-06] MEDS: bumetanide 1 mg Tablet PO (08:53)
[2023-01-06] MEDS: potassium chloride ER 20 mEq Tablet PO (08:53)
[2023-01-06] MEDS: carvedilol 6.25 mg Tablet 9.375 MG PO ×2 (08:54→19:30)
[2023-01-06] MEDS: insulin lispro 100 unit/1 mL SUBCUT ×4 (08:55→21:54)
[2023-01-06 11:07] VITALS: BP 107/60; PULSE 72; TEMP 36.4; O2SAT 98
[2023-01-06 11:56] LABS: Glucose Point of Care 230 mg/dL (70-110)
--- NOTE | 2023-01-06 13:22 | PM.PN ---
Subjective Subjective: seen this am patient denies any abdominal pain confused 2/2 to underlying dementia Vitals/I&O/Wt Last Vital Signs Temp 97.6 F 01/06/23 11:07 Pulse 72 01/06/23 11:07 Resp 18 01/06/23 08:27 BP 107/60 01/06/23 11:07 Pulse Ox 98 01/06/23 11:07 O2 Del Method 01/06/23 08:27 O2 Flow Rate 3 01/06/23 08:27 01/05/23 01/06/23 01/06/23 22:59 06:59 14:59 Intake Total 580 / 730 1480 / 2210 630 / 630 Balance 580 / 730 1480 / 2210 630 / 630 Weight last 48 hrs Weight 125.055 kg Weight 117.112 kg Weight 117.934 kg Physical Exam Narrative: Patient is awake and alert Pleasant cooperative laying in bed comfortable at this time. soft non tender abdomen thin extremities s1s2 on 3L NC at this time. Data 01/06/23 04:15 01/06/23 04:15 Micro: Microbiology 01/04/23 17:24 Blood Culture - Preliminary Blood NEGATIVE TO DATE 01/04/23 17:14 Blood Culture - Preliminary Blood NEGATIVE TO DATE A&P Assessment and plan (1) Cholecystitis: (2) Gout: (3) Right ureteral calculus: (4) Body mass index [BMI] 38.0-38.9, adult: (5) Atrial fibrillation: (6) Aortic stenosis: Plan 67-year-old gentleman with significant past medical history of chronic atrial fibrillation on warfarin, aortic stenosis s/p TAVR, chronic recurrent UTI, CVA diabetes, endocarditis, gout, pulmonary hypertension, ischemic cardiomyopathy, was brought in with chief complaint of generalized weakness and not feeling well overall for the last few days. Assessment; Acute cholecystitis: Currently n.p.o. Empirically covered with broad-spectrum antibiotics meropenem as he has history of ESBL in the past. Continue meropenem at this time. Plan for antibiotics for 2 weeks prior to planned surgery as outpatient Pain control Antiemetics Surgery on board. Will wait for further recs. History of chronic atrial fibrillation: Currently heart rate is well controlled. Currently on carvedilol as well as Cardizem. Takes warfarin for anticoagulation, currently on hold, has not taken in the last 2 to 3 days. PT/INR has been ordered. Continue to hold warfarin as per surgery recs Diabetes: LDSSI, monitor fingerstick glucose Right ureteral calculus: Follow urology as outpatient Sees Dr. Berkowitz CT abdomen and pelvis has not shown any significant change as compared to past. Urology can be consulted if needed CODE STATUS: Full code DVT PPX : On SCD Attestations Medical Necessity Statement*: Continue IV antibiotics in hospital. Will require surgical clearance for discharge. Diagnoses Cholecystitis K81.9 Gout M10.9 Right ureteral calculus N20.1 Body mass index [BMI] 38.0-38.9, adult Z68.38 Atrial fibrillation I48.91 Aortic stenosis I35.0
--- NOTE | 2023-01-06 14:29 | PM.CONSULT ---
Providers/Reason For Consult Consulting Physician/Specialty*: Urology/Berkowitz Reason for Consult*: Right proximal ureteral stone Attending Physician: Micheline Carey MD Primary Care Provider: ALTAF Russell History of Present Illness History of Present Illness Ry Loyd is a 67 year old male well-known to me for history of recurrent urinary tract infections requiring intermittent hospitalizations for pyelonephritis and encephalopathy. He has been on suppressive antibiotics with some improvement. Was recently discovered to have a RIGHT proximal ureteral stone without severe obstructive changes. Was scheduled for stent placement and ESWL on 01/09/2023. In the meantime though he developed acute cholecystitis and was admitted for evaluation. Current plan is to keep him on IV antibiotics for an extended period of time and then with improvement in overall viability consider cholecystectomy. Currently he is not symptomatic from the stone. Plan will be to hold on his scheduled surgery on Monday and then try to coordinate with Dr. English for attempt at definitive therapy of the stone. Medications/Allergies Home Medications Medication Instructions Recorded Confirmed Last Taken Type citalopram 10 mg tablet (Celexa) 10 mg PO QAM 12/03/19 01/04/23 01/04/23 History pantoprazole 40 mg tablet,delayed 40 mg PO DAILY@12/25/19 01/04/23 01/04/23 History release (Protonix) potassium chloride 20 mEq 20 meq PO DAILY 12/25/19 01/04/23 01/04/23 History tablet,extended release aspirin 81 mg tablet,delayed 81 mg PO BEDTIME 10/10/20 01/04/23 01/03/23 History release atorvastatin 40 mg tablet 40 mg PO DAILY@02/17/21 01/04/23 01/03/23 History diltiazem HCl 120 mg 120 mg PO DAILY@02/17/21 01/04/23 01/04/23 History capsule,extended release 24 hr Lactobacillus acidophilus 20 20,000 mmu cells PO BEDTIME 07/12/21 01/04/23 01/03/23 History billion cell capsule (Florajen Acidophilus) insulin glargine 100 unit/mL (3 25 unit SUBCUT BID 07/12/21 01/04/23 01/04/23 History mL) subcutaneous pen (Lantus Solostar U-100 Insulin) vit no.95-ferrous 1 tab PO DAILY@06 07/12/21 01/04/23 01/04/23 History fumarate 28 mg-folic acid 800 mcg tablet ( Multivitamins) acetaminophen 500 mg tablet 500 mg PO Q6H PRN Pain 12/29/21 01/04/23 12/22/22 History ascorbic acid (vitamin C) 500 mg 500 mg PO QPM 07/13/22 01/04/23 01/03/23 History tablet (Vitamin C) nitroglycerin 0.4 mg sublingual 0.4 mg sublingual Q5M PRN Chest 07/13/22 01/04/23 12/22/22 History tablet (Nitrostat) Pain carvedilol 6.25 mg tablet 9.375 mg PO BID 11/04/22 01/04/23 01/04/23 History cholecalciferol (vitamin D3) 125 125 mcg PO QAM 11/04/22 01/04/23 01/04/23 History mcg (5,000 unit) tablet (Vitamin D3) warfarin 1 mg tablet 6 mg PO QPM 11/04/22 01/04/23 12/22/22 History fosfomycin tromethamine 3 gram 3 g PO Q3D chronic suppression for 11/06/22 01/04/23 01/02/23 Rx oral packet UTI 3 months #30 ea hydroxyzine pamoate 25 mg capsule 25 mg PO BID 12/15/22 01/04/23 01/04/23 History bumetanide 2 mg tablet 1 mg PO DAILY #60 tabs 12/23/22 01/04/23 01/04/23 Rx prednisone 5 mg tablet 10 mg PO QAM 01/04/23 01/04/23 01/04/23 History Allergies Allergy/AdvReac Type Severity Reaction Status Date / Time ceftriaxone [From Rocephin] Allergy Intermediate ALGY-Difficulty Verified 01/05/23 01:14 Breathing levofloxacin [From Levaquin] Allergy Mild ADR-Itching Verified 01/05/23 01:14 iodine Allergy Unknown Unknown Verified 01/05/23 01:14 Pork/Porcine Containing Allergy gout Verified 01/05/23 01:14 Products clopidogrel [From Plavix] AdvReac Intermediate Unknown Verified 01/05/23 01:14 Current Medications Generic Name Dose Route Start Last Admin Trade Name Freq PRN Reason Stop Dose Admin Bumetanide 1 mg 01/05/23 09:00 01/06/23 08:53 Bumetanide 1 Mg Tablet PO 1 mg DAILY PADMAJA Administration Carvedilol 9.375 mg 01/05/23 09:00 01/06/23 08:54 Carvedilol 6.25 Mg Tablet PO 9.375 mg BID PADMAJA Administration Diltiazem HCl 120 mg 01/05/23 06:00 01/06/23 05:15 Diltiazem Er (24hr) 120 Mg Capsule PO 120 mg DAILY@06 PADMAJA Administration Hydroxyzine Pamoate 25 mg 01/05/23 09:00 01/06/23 08:53 Hydroxyzine 25 Mg Capsule PO 25 mg BID PADMAJA Administration Meropenem 500 mg/ Sodium 50 mls @ 100 mls/hr 01/05/23 02:24 01/06/23 09:51 Chloride IV Infused Q8H PADMAJA Infusion Protocol Sodium Chloride 1,000 mls @ 50 mls/hr 01/05/23 06:30 01/06/23 03:51 Sodium Chloride 0.9% IV 50 mls/hr .Q20H PADMAJA Administration Piperacillin Sod/Tazobactam 50 mls @ 12.5 mls/hr 01/05/23 09:45 01/06/23 07:12 Sod 3.375 gm/ Sodium Chloride IV Infused Q8H [facility] Infusion Protocol Insulin Human Lispro 0 unit 01/05/23 08:00 01/06/23 13:17 Insulin Lispro 100 Unit/1 Ml SUBCUT 6 unit WM&BEDTIME PADMAJA Administration Protocol Morphine Sulfate 2 mg 01/05/23 00:59 01/05/23 19:53 Morphine 4 Mg/Ml Sdv 1 Ml IVP 2 mg Q4H PRN Administration SEVERE PAIN Potassium Chloride 20 meq 01/05/23 09:00 01/06/23 08:53 Potassium Chloride Er 20 Meq Tablet PO 20 meq DAILY PADMAJA Administration Vitamin D 5,000 unit 01/05/23 06:00 01/06/23 05:16 Cholecalciferol (Vitamin D3) 5,000 Unit Tablet PO 5,000 unit QAM PADMAJA Administration PFSH Acute PFSH: Medical History Acute cystitis Altered mental status Aortic stenosis Had TAVR replacement 2018 Atrial fibrillation Atrial fibrillation with slow ventricular response Bilateral renal masses CHF (congestive heart failure) EF 45 by transesophageal echo January 2019 Chronic antibiotic suppression Chronic anticoagulation coumadin Chronic urinary tract infection, suppressed Chronic use of steroids Complex renal cyst Congestive heart failure CVA (cerebral vascular accident) Dementia Diabetes Dyslipidemia Endocarditis history of chronic viridans endocarditis, 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 Essential hypertension Gout High risk medication use arava and chronic steroids 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 Hx of [place] spotted fever Ischemic cardiomyopathy Left ventricular hypertrophy Liver cirrhosis Obesity AJAY (obstructive sleep apnea) Pre-syncope Pulmonary HTN Pyelonephritis of right kidney Recurrent UTI Multidrug-resistant organisms Renal calculi Restrictive lung disease Rheumatoid arthritis Rheumatoid arthritis Shoulder pain Skin lesion Syncope Syncope and collapse Thalassemia Urinary tract infection due to ESBL Klebsiella Surgical History H/O lithotripsy S/P TAVR (transcatheter aortic valve replacement) (~2018) Family History Mother Stroke Father Myocardial infarction Other CAD (coronary artery disease) Chronic kidney disease (CKD) Diabetes Hypertension Social History Smoking and tobacco status: former smoker Quit status (tobacco): has quit using tobacco Year quit tobacco: 2019 - Chewing Tobacco Former quit date comment: Hx of 1/2 can x 50 Years Second hand smoke exposure: No Alcohol intake: former Lives independently: No Household members: spouse Marital status: Current occupational status: retired and disabled History of recent travel: No Current gender identity: Male Vitals/I&O/Wt Last Vital Signs Temp 97.6 F 01/06/23 11:07 Pulse 72 01/06/23 11:07 Resp 18 01/06/23 08:27 BP 107/60 01/06/23 11:07 Pulse Ox 98 01/06/23 11:07 O2 Del Method 01/06/23 08:27 O2 Flow Rate 3 01/06/23 08:27 01/05/23 01/06/23 01/06/23 22:59 06:59 14:59 Intake Total 580 / 730 1480 / 2210 630 / 630 Balance 580 / 730 1480 / 2210 630 / 630 Weight last 48 hrs Weight 275 lb 11.2 oz Weight 258 lb 3 oz Weight 260 lb Physical Exam Narrative: Sleeping currently. No acute distress. Lethargic. Data 01/06/23 04:15 01/06/23 04:15 Micro: Microbiology 01/04/23 17:24 Blood Culture - Preliminary Blood NEGATIVE TO DATE 01/04/23 17:14 Blood Culture - Preliminary Blood NEGATIVE TO DATE A&P Assessment and plan (1) Cholecystitis: (2) Right ureteral calculus: Postpone scheduled ESWL. (3) Urinary tract infection due to ESBL Klebsiella: Continue antibiotics (4) Complex renal cyst: I do not really think the cyst is playing much role in his recurrent infectious issue. Plan See HPI. Coding Level of Care Code Acute Code for [facility] Fwd Diagnoses Cholecystitis K81.9 Right ureteral calculus N20.1 Urinary tract infection due to ESBL Klebsiella N39.0; B96.89 Complex renal cyst N28.1
--- NOTE | 2023-01-06 14:52 | P.PN_ITS ---
Subjective Subjective: Patient seen and examined. Still with mild right upper quadrant pain. Has not worsened Vitals/I&O/Wt Last Vital Signs Temp 97.6 F 01/06/23 11:07 Pulse 72 01/06/23 11:07 Resp 18 01/06/23 08:27 BP 107/60 01/06/23 11:07 Pulse Ox 98 01/06/23 11:07 O2 Del Method 01/06/23 08:27 O2 Flow Rate 3 01/06/23 08:27 01/05/23 01/06/23 01/06/23 22:59 06:59 14:59 Intake Total 580 / 730 1480 / 2210 630 / 630 Balance 580 / 730 1480 / 2210 630 / 630 Weight last 48 hrs Weight 275 lb 11.2 oz Weight 258 lb 3 oz Weight 260 lb Physical Exam Narrative: General: No distress Abdomen: Soft, nondistended, mild right upper quadrant tenderness, negative Jarrett sign, no guarding rebound or masses Data 01/06/23 04:15 01/06/23 04:15 Micro: Microbiology 01/04/23 17:24 Blood Culture - Preliminary Blood NEGATIVE TO DATE 01/04/23 17:14 Blood Culture - Preliminary Blood NEGATIVE TO DATE A&P Assessment and plan (1) Cholecystitis: Plan Patient presented with 1 week of symptoms, per the I would like to treat conservatively at this time with IV antibiotics followed by an interval cholecystectomy in 6 to 8 weeks. He has been off of his Coumadin for a procedure on Monday with urology. Regular diet IV antibiotics Hope to be able to discharge to intermediate tomorrow and come back on Monday for his outpatient procedure. I would like to see him in my office 2 weeks after discharge Attestations Medical Necessity Statement*: Per primary Coding Level of Care Code Acute Code for [facility] Diagnoses Cholecystitis K81.9
[2023-01-06 17:56] LABS: Glucose Point of Care 225 mg/dL (70-110)
[2023-01-06 17:56] LABS: Glucose Point of Care 170 mg/dL (70-110)
[2023-01-06] MEDS: ondansetron 2 mg/ML SDV 2 mL 4 MG IVP (19:28)
[2023-01-06 20:00] VITALS: BP 130/68; PULSE 85; RESP 22; TEMP 36.7; O2SAT 100
[2023-01-06 22:43] LABS: Glucose Point of Care 210 mg/dL (70-110)
[2023-01-07] VITALS (10 sets, daily range): BP systolic 90–125; BP diastolic 47–69; PULSE 70–80; RESP 18–22; TEMP 36.1–37.4; O2SAT 94–98
[2023-01-07] MEDS: meropenem 500 MG in sodium chloride 0.9% (plus) 50 ML 100 MG IV ×2 (02:13→10:03)
[2023-01-07] MEDS: piperacillin-tazobactam 3.375 GM in sodium chloride 0.9% (plus) 50 ML IV ×2 (02:24→10:12)
[2023-01-07 04:40] LABS: Basophils % 0.5 %; Eosinophils # 0.3 10^3/uL (0.0-0.8); Eosinophils % 3.2 %; Hematocrit 30.5 % (42.0-52.0); Hemoglobin 8.8 g/dL (11.7-16.6); Lymphocytes # 1.2 10^3/uL (0.8-4.8); Lymphocytes % 15.3 %; Mean Corpuscular HGB Conc 28.9 g/dL (30.0-36.0); Mean Corpuscular Hemoglobin 16.5 pg (28.0-34.0); Mean Corpuscular Volume 57.3 fl (80-94); Monocytes # 0.7 10^3/uL (0.2-0.9); Monocytes % 8.4 %; Neutrophils # 5.88 10^3/uL (1.8-7.7); Neutrophils % 72.5 %; Nucleated Red Blood Cells % 0.2 %; Platelet Count 263 10^3/cmm (130-400); Red Blood Count 5.32 10^6/uL (4.1-5.3); Red Cell Distribution Width 19.2 % (12.1-15.1); White Blood Count 8.1 10^3/uL (4.0-10.0)
[2023-01-07 05:03] LABS: Alanine Aminotransferase 8 U/L (0-41); Albumin Level 2.7 g/dL (3.5-5.2); Alkaline Phosphatase 65 U/L (40-130); Anion Gap 11.2 (5-19); Aspartate Amino Transferase 11 U/L (0-40); Blood Urea Nitrogen 27 mg/dL (8-23); Calcium 8.4 mg/dL (8.5-10.5); Carbon Dioxide 27 mmol/L (22-29); Chloride 100 mmol/L (98-107); Globulin 2.9 g/dL (1.3-4.6); Glomerular Filtration Rate 66.4 mL/min (90-130); Glucose 251 mg/dL (65-115); Osmolality Calculated 292 mOsm/kg (285-295); Potassium 4.2 mmol/L (3.5-5.1); Sodium 134 mmol/L (136-145); Total Bilirubin 0.5 mg/dL (0.15-1.2); Total Protein 5.6 g/dL (6.6-8.7)
[2023-01-07 05:36] LABS: Slide Review Slide Review Perform
[2023-01-07 06:29] LABS: Glucose Point of Care 212 mg/dL (70-110)
[2023-01-07] MEDS: cholecalciferol (vitamin D3) 5,000 unit Tablet 5000 UNIT PO (06:38)
[2023-01-07] MEDS: dilTIAZem ER (24HR) 120 mg Capsule PO (06:38)
--- NOTE | 2023-01-07 07:30 | P.PN_ITS ---
Subjective Subjective: Patient seen and examined. Still with mild right upper quadrant pain. Has improved Vitals/I&O/Wt Last Vital Signs Temp 98.2 F 01/07/23 04:00 Pulse 77 01/07/23 06:00 Resp 21 H 01/07/23 04:00 BP 108/67 01/07/23 06:37 Pulse Ox 98 01/07/23 04:00 O2 Del Method 01/07/23 04:00 O2 Flow Rate 2 01/07/23 04:00 01/06/23 01/07/23 01/07/23 22:59 06:59 14:59 Intake Total 1655 / 2285 580 / 2865 Balance 1655 / 2285 580 / 2865 Weight last 48 hrs Weight 275 lb 11.2 oz Physical Exam Narrative: General: No distress Abdomen: Soft, nondistended, mild right upper quadrant tenderness, negative Jarrett sign, no guarding rebound or masses Data 01/07/23 03:35 01/07/23 03:35 A&P Assessment and plan (1) Cholecystitis: Plan Patient presented with 1 week of symptoms, per the I would like to treat conservatively at this time with IV antibiotics followed by an interval cholecystectomy in 6 to 8 weeks. He has been off of his Coumadin for a procedure on Monday with urology. Regular diet IV antibiotics-to complete a 14-day course of antibiotics with Augmentin at home White blood cell count and vitals have normalized. Surgically stable for discharge. is requesting residential facility. He has an outpatient urologic procedure on monday I would like to see him in my office 2 weeks after discharge Attestations Medical Necessity Statement*: per primary Coding Level of Care Code Acute Code for [facility] Diagnoses Cholecystitis K81.9
[2023-01-07] MEDS: insulin lispro 100 unit/1 mL SUBCUT ×2 (09:22→13:52)
[2023-01-07] MEDS: hyDROXYzine 25 mg Capsule PO (09:23)
[2023-01-07] MEDS: potassium chloride ER 20 mEq Tablet PO (09:23)
--- NOTE | 2023-01-07 13:04 | PM.DCS ---
Discharge Providers Date of Admission: 01/05/23 00:50 Date of Discharge: January 07, 2023 Attending Provider at Admission: Leodan Gay MD Attending Provider at Discharge: Micheline Carey MD Primary Care Provider: ALTAF Russell Diagnoses at Discharge Discharge Diagnosis (1) Cholecystitis: Status: Acute Reason for Visit Reason for Visit: Abdominal pain Brief History: 67-year-old gentleman with significant past medical history of chronic atrial fibrillation on warfarin, aortic stenosis s/p TAVR, chronic recurrent UTI, CVA diabetes, endocarditis, gout, pulmonary hypertension, ischemic cardiomyopathy, was brought in with chief complaint of generalized weakness and not feeling well overall for the last few days. CT chest abdomen and pelvis showed:?Very minimal posterior pleural effusions and mild bibasilar atelectasis. Minimal pericardial effusion.6 x 8 mm calcified stone at the right ureteropelvic junction without significant hydronephrosis at this time.Tiny punctate nonobstructing bilateral renal calculi. Cholelithiasis with possible developing acute cholecystitis. Ultrasound gallbladder: Findings are consistent with acute cholecystitis. Pertinent labs: WBC 12.4, H&H 10 and 36,plt: 364 , serum sodium 140, serum potassium 3.9, BUN 40 serum creatinine 1.1, serum lactate 1.6, AST ALT alk phos total bilirubin normal, procalcitonin normal, TSH normal, urinalysis clean. Patient was given 1 dose of Zosyn in the ER. Hospital Course Hospital Course Patient initially presented with generalized weakness and not feeling well. Diagnosed with acute cholecystitis. Was about to go for surgery however it was noted that he has been having symptoms for quite some time. Plan for oral antibiotics at this time after a few doses of IV in the hospital for a total of 2 weeks and to plan cholecystectomy as an outpatient. Family agreed. Patient was cleared for discharge by general surgery and will be sent home in stable condition at this point. Patient was discharged home on ciprofloxacin and Flagyl. Patient was supposed to have a procedure done with urology for which warfarin was on hold. He will coordinate with urology and general surgery in regards to holding warfarin further. Patient was fed first dose of ciprofloxacin in the hospital and he tolerated it well. No adverse reactions noted. Physical Exam Narrative: Patient is awake and alert Pleasant cooperative laying in bed comfortable at this time. soft non tender abdomen thin extremities s1s2 on 3L NC at this time. Discharge Data Studies Completed and Pending Completed Studies During Hospitalization Category [place] [id number] Stat Cat Scan 01/04/23 18:[address] head wo con* [id number] Stat Cat Scan 01/04/23 18:46 Completed XR chest 1V portable [id number] Stat Exams 01/04/23 16:44 Completed US gall bladder [id number] Stat Ultrasound 01/04/23 22:04 Completed Pending at discharge Category Date Time Status Blood Culture Stat Lab 01/04/23 17:24 Results Complete Blood Count w/Auto AM LABS Lab 01/08/23 04:00 Ordered Comprehensive Metabolic Panel AM LABS Lab 01/08/23 04:00 Ordered Radiology Impressions Chest X-Ray 01/04/23 16:44 IMPRESSION: No acute findings. Chest/Abdomen/Pelvis CT 01/04/23 18:46 IMPRESSION: 1. Very minimal posterior pleural effusions and mild bibasilar atelectasis. 2. Minimal pericardial effusion. 3. Atherosclerotic vascular disease including coronary artery disease. 4. Previous TAVR. IMPRESSION: 1. 6 x 8 mm calcified stone at the right ureteropelvic junction without significant hydronephrosis at this time. 2. Tiny punctate nonobstructing bilateral renal calculi. 3. Cholelithiasis with possible developing acute cholecystitis. 4. Colonic diverticulosis without CT evidence of diverticulitis. 5. Redemonstrated fat containing umbilical hernia measuring approximately 7 x 6 x 9 cm with adjacent periumbilical superficial soft tissue edema versus cellulitis/panniculitis. Head CT 01/04/23 18:46 IMPRESSION: 1. Moderate cerebral atrophy and leukoencephalopathy. 2. Advanced leukoencephalopathy for the patient's age; correlation with diabetes, hypertension, vasculitis, Lyme disease, recreational drug use or multiple sclerosis is recommended. Gallbladder Ultrasound 01/04/23 22:04 IMPRESSION: 1. Findings consistent with acute cholecystitis. 2. Multiple right renal cysts and small nonobstructing calculi. Laboratory Results WBC 8.1 10^3/uL (4.0-10.0) 01/07/23 03:35 RBC 5.32 10^6/uL (4.1-5.3) H 01/07/23 03:35 Hgb 8.8 g/dL (11.7-16.6) L 01/07/23 03:35 Hct 30.5 % (42.0-52.0) L 01/07/23 03:35 MCV 57.3 fl (80-94) L 01/07/23 03:35 MCH 16.5 pg (28.0-34.0) L 01/07/23 03:35 MCHC 28.9 g/dL (30.0-36.0) L 01/07/23 03:35 RDW 19.2 % (12.1-15.1) H 01/07/23 03:35 Plt Count 263 10^3/cmm (130-400) 01/07/23 03:35 MPV Not Reportable 01/07/23 03:35 Neut % (Auto) 72.5 % 01/07/23 03:35 Lymph % (Auto) 15.3 % 01/07/23 03:35 [place] % (Auto) 8.4 % 01/07/23 03:35 Eos % (Auto) 3.2 % 01/07/23 03:35 Baso % (Auto) 0.5 % 01/07/23 03:35 Neut # (Auto) 5.88 10^3/uL (1.8-7.7) 01/07/23 03:35 Lymph # (Auto) 1.2 10^3/uL (0.8-4.8) 01/07/23 03:35 [place] # (Auto) 0.7 10^3/uL (0.2-0.9) 01/07/23 03:35 Eos # (Auto) 0.3 10^3/uL (0.0-0.8) 01/07/23 03:35 Baso # (Auto) 0.0 10^3/uL (0.0-0.1) 01/07/23 03:35 Nucleated RBC % (auto) 0.2 % 01/07/23 03:35 Nucleated RBCs # 0.0 /100WBC 01/07/23 03:35 PT 17.70 SECONDS (12.1-14.9) H 01/05/23 01:08 INR 1.40 (0.8-1.2) H 01/05/23 01:08 Sodium 134 mmol/L (136-145) L 01/07/23 03:35 Potassium 4.2 mmol/L (3.5-5.1) 01/07/23 03:35 Chloride 100 mmol/L (98-107) 01/07/23 03:35 Carbon Dioxide 27 mmol/L (22-29) 01/07/23 03:35 Anion Gap 11.2 (5-19) 01/07/23 03:35 BUN 27 mg/dL (8-23) H 01/07/23 03:35 Creatinine 1.1 mg/dL (0.7-1.2) 01/07/23 03:35 GFR Calculation 66.4 mL/min (90-130) L 01/07/23 03:35 Glucose 251 mg/dL (65-115) H 01/07/23 03:35 POC Glucose 212 mg/dL (70-110) H 01/07/23 06:04 Calculated Osmolality 292 mOsm/kg (285-295) 01/07/23 03:35 Lactate 1.6 mmol/L (0.5-2.2) 01/04/23 17:14 Calcium 8.4 mg/dL (8.5-10.5) L 01/07/23 03:35 Total Bilirubin 0.5 mg/dL (0.15-1.2) 01/07/23 03:35 AST 11 U/L (0-40) 01/07/23 03:35 ALT 8 U/L (0-41) 01/07/23 03:35 Alkaline Phosphatase 65 U/L (40-130) 01/07/23 03:35 Troponin T Gen 5 ng/L Cancelled 01/05/23 13:42 Troponin T Baseline 54 ng/L (0-15) H 01/05/23 13:42 Troponin T 120 Minute 51.45 ng/L (0-15) H 01/05/23 16:45 Delta Troponin T -2.55 ABS# (0-10) L 01/05/23 16:45 Troponin T Hi Sens 6Hr 54.82 ng/L (0-15) H 01/05/23 19:41 Troponin T Hi Sens 6Hr Delta 0.82 ng/L (0-12) 01/05/23 19:41 C-Reactive Protein 45.0 mg/L (0.0-4.9) H 01/04/23 17:14 Total Protein 5.6 g/dL (6.6-8.7) L 01/07/23 03:35 Albumin 2.7 g/dL (3.5-5.2) L 01/07/23 03:35 Globulin 2.9 g/dL (1.3-4.6) 01/07/23 03:35 Procalcitonin 0.15 ng/mL (0-0.5) 01/04/23 17:14 TSH 0.98 uIU/mL (0.27-4.20) 01/04/23 17:14 Urine Color Yellow (Yellow) 01/04/23 17:01 Urine Appearance Clear (CLEAR) 01/04/23 17:01 Urine pH 5 (5-7) 01/04/23 17:01 Ur Specific [place] 1.015 (1.005-1.030) 01/04/23 17:01 Urine Protein Neg (Negative) 01/04/23 17:01 Urine Glucose (UA) Norm (Normal) 01/04/23 17:01 Urine Ketones Negative (Negative) 01/04/23 17:01 Urine Blood Neg (Negative) 01/04/23 17:01 Urine Nitrate Negative (Negative) 01/04/23 17:01 Urine Bilirubin Neg (Negative) 01/04/23 17:01 Urine Urobilinogen Neg mg/dL (Negative) 01/04/23 17:01 Ur Leukocyte Esterase Negative (Negative) 01/04/23 17:01 Coronavirus 229E (PCR) Not detected (NOT DETECT) 01/04/23 16:36 SARS-CoV-2 (PCR) Not detected (NOT DETECT) 01/04/23 16:36 Vitals Last Vital Signs Temp 97.4 F L 01/07/23 08:00 Pulse 70 01/07/23 09:15 Resp 20 H 01/07/23 08:00 BP 90/53 01/07/23 09:15 Pulse Ox 94 01/07/23 08:00 O2 Del Method 01/07/23 08:00 O2 Flow Rate 94 01/07/23 08:00 Discharge Plan Discharge Patient Disposition: Home Condition: Stable Prescriptions: New metronidazole 500 mg tablet 500 mg PO Q12H 14 Days Qty: 28 0RF ciprofloxacin HCl 500 mg tablet 500 mg PO BID 14 Days Qty: 28 0RF Continued citalopram [Celexa] 10 mg tablet 10 mg PO QAM potassium chloride 20 mEq Tablet Extended Release 20 meq PO DAILY Hold Instructions: see pcp pantoprazole [Protonix] 40 mg Tablet,Delayed Release (Dr/Ec) 40 mg PO DAILY@06 aspirin 81 mg Tablet,Delayed Release (Dr/Ec) 81 mg PO BEDTIME Rx Instructions: ON HOLD FOR PROCEDURE insulin glargine [Lantus Solostar U-100 Insulin] 100 unit/mL (3 mL) insulin pen 25 unit SUBCUT BID Florajen Acidophilus 20 billion cell Capsule 20,000 mmu cells PO BEDTIME PNV cmb#95-ferrous fumarate-FA [ Multivitamins] 28 mg iron- 800 mcg Tablet 1 tab PO DAILY@06 atorvastatin 40 mg tablet 40 mg PO DAILY@19 diltiazem HCl 120 mg capsule,extended release 24hr 120 mg PO DAILY@06 Hold Instructions: see pcp acetaminophen 500 mg Tablet 500 mg PO Q6H PRN (Reason: Pain) ascorbic acid (vitamin C) [Vitamin C] 500 mg Tablet 500 mg PO QPM nitroglycerin [Nitrostat] 0.4 mg Tablet, Sublingual 0.4 mg SUBLINGUAL Q5M PRN (Reason: Chest Pain) Rx Instructions: do not exceed 3 doses per episode fosfomycin tromethamine 3 gram packet 3 g PO Q3D 90 Days Qty: 30 4RF hydroxyzine pamoate 25 mg capsule 25 mg PO BID bumetanide 2 mg tablet 1 mg PO DAILY Qty: 60 0RF prednisone 5 mg tablet 10 mg PO QAM carvedilol 6.25 mg tablet 9.375 mg PO BID Hold Instructions: Resume on 11/23/22. warfarin 1 mg tablet 6 mg PO QPM Rx Instructions: ON HOLD FOR PROCEDURE cholecalciferol (vitamin D3) [Vitamin D3] 125 mcg (5,000 unit) Tablet 125 mcg PO QAM Discharge Orders: Discharge Order (Routine); Ordered 01/07/23 Ordered By: Micheline Carey Referrals: Gary English DO [Physician] - 2 weeks Gregoria Cheek FNP [Primary Care Provider] - 4-7 days Discharge Diet: Usual diet Discharge Activity: Increase activity as tolerated Patient Instructions: Ciprofloxacin (By mouth), Metronidazole (By mouth), Laparoscopic Cholecystectomy (DC), Opioid Safety, Post Anesthesia Care, Weakness (Generalized) Activity Restrictions/Additional Instructions: Return to the emergency department for uncontrolled symptoms or anything else that you are concerned about and feel needs emergency department evaluation. Discharge Attestations Time Spent in Discharge Care*: less than 30 min Status at Discharge: Cognitive status at discharge: cognitively intact, Behavioral status at discharge: cooperative, Quality Metrics Clinical Quality Measures [ No reported AMI, CVA or VTE this stay] Coding Level of Care Code Acute Code for [facility] Diagnoses Cholecystitis K81.9
[2023-01-07 13:51] LABS: Glucose Point of Care 205 mg/dL (70-110)
[2023-01-07] MEDS: ciprofloxacin 500 mg Tablet PO (13:52)
--- NOTE | 2023-01-07 17:20 | PC.NURSE ---
1715Discharge instructions given to who voiced understanding. 1718 patient discharged to home per private car patient in stable condition. taken to private car per wheel chair and staff.
== END 2023-01-07 17:18 | disposition home health service (06) | DRG 445 ==
LOC: ER 01-05 01:12 → MEDSURG 01-05 01:21
PROVIDERS: Emergency Medicine; Surgery; Admitting Provider Internal Medicine; Emergency Provider Emergency Medicine; PCP Nurse Practitioner Family; Visit Provider Internal Medicine
PROC: 0FT44ZZ Resection of Gallbladder, Percutaneous Endoscopic Approach (ICD-10-PCS; CPT 47562; principal; 2023-01-05 12:55)
DX: K81.0 Acute cholecystitis (principal); I48.20 Chronic atrial fibrillation, unspecified; N20.1 Calculus of ureter; N39.0 Urinary tract infection, site not specified; B96.89 Other specified bacterial agents as the cause of diseases classified elsewhere; I35.0 Nonrheumatic aortic (valve) stenosis; E11.9 Type 2 diabetes mellitus without complications; G47.33 Obstructive sleep apnea (adult) (pediatric); E78.5 Hyperlipidemia, unspecified; F03.90 Unspecified dementia, unspecified severity, without behavioral disturbance, psychotic disturbance, mood disturbance, and anxiety; I50.9 Heart failure, unspecified; E66.01 Morbid (severe) obesity due to excess calories; N28.1 Cyst of kidney, acquired; Z79.01 Long term (current) use of anticoagulants; Z95.2 Presence of prosthetic heart valve; Z87.440 Personal history of urinary (tract) infections; Z79.4 Long term (current) use of insulin; Z79.82 Long term (current) use of aspirin; Z87.891 Personal history of nicotine dependence; Z68.38 Body mass index [BMI] 38.0-38.9, adult; Z86.73 Personal history of transient ischemic attack (TIA), and cerebral infarction without residual deficits
CPT/HCPCS: 36415; 36416; 70450; 71045; 71250; 74018; 74176; 76705; 80053; 81003; 82962; 83605; 84145; 84443; 84484; 85025; 85610; 86140; 87040; 87086; 87635; 93005; 94640; 96372; 96374; 96375; 96376; 97165; 99213; 99214; 99285; J1790; J1815; J2185; J2270; J2405; J2543; J7030

== ENCOUNTER 2023-01-12 22:02 | Emergency (ER) | payer MEDICARE, OTHER, SELFPAY ==
--- NOTE | 2023-01-12 22:04 | ECG_ITS ---
[facility] Test Date: 2023-01-12 Pat Name: Ry Loyd Department: Room: Gender: Male Septic Cleaner: : 1955 Requested By: Schuyler Smith Order Number: [id number] Morena MD: Layla Cazares M.D. Measurements Intervals [place] Rate: 86 P: 0 ME: 0 QRS: -18 QRSD: 87 T: 96 QT: 303 QTc: 364 Interpretive Statements ATRIAL FIBRILLATION LOW QRS VOLTAGE IN PRECORDIAL LEADS [QRS DEFLECTION < 1.0 mV IN CHEST LEADS] NONSPECIFIC T-WAVE ABNORMALITY Compared to ECG 01/05/2023 22:11:11 Possible ischemia no longer present T-wave abnormality still present Electronically Signed On 01-13-2023 16:44:20 REFRIGERATION OPERATOR by Layla Cazares M.D. [id number]
--- NOTE | 2023-01-12 22:04 | XRR_ITS ---
PROCEDURE INFORMATION: Exam: XR Chest Exam date and time: 01/12/2023 10:13 PM Age: 67 years old Clinical indication: Other: Weakness TECHNIQUE: Imaging protocol: Radiologic exam of the chest. Views: 1 view. COMPARISON: CT chest abdpel w/*[id number] 01/04/2023 8:29 PM FINDINGS: Lungs: Mild peribronchial thickening and/or mild perihilar linear markings consistent with bronchitis and/or viral pneumonitis and/or reactive airway disease and/or atypical pulmonary interstitial edema. Pleural spaces: Unremarkable. No pleural effusion. No pneumothorax. Heart/Mediastinum: Borderline cardiomegaly. Bones/joints: Unremarkable. XR/XR chest 1V portable [id number] IMPRESSION: 1. Borderline cardiomegaly. 2. Mild peribronchial thickening and/or mild perihilar linear markings consistent with bronchitis and/or viral pneumonitis and/or reactive airway disease and/or atypical pulmonary interstitial edema.
[2023-01-12 22:08] VITALS: BP 133/82; PULSE 89; RESP 22; TEMP 37.1; O2SAT 92
--- NOTE | 2023-01-12 22:08 | W.ED.WEAKNES ---
HPI - Weakness General: Chief complaint: Weakness Stated complaint: WEAKNESS Time Seen by Provider: 01/12/23 22:03 Source: patient and EMS Mode of arrival: EMS Limitations: no limitations History of Present Illness: 67-year-old male is very well-known to the ER history of multiple issues he is seen here multiple times for generalized weakness he states he been having weakness over the last 2 to 3 days saw his PCP yesterday who told him he likely had a virus he is admitted here a week ago for cholecystitis he was on antibiotics did not have surgery as it was mild he is not a very good surgical candidate he denies any abdominal pain anywhere he states he just has body aches. Denies any vomiting or diarrhea. Associated symptoms: Denies chest pain, dysuria, easy bruising, headache(s), nausea or vomiting Review of Systems Const: Reports: fatigue and malaise Eyes: Denies: blurry vision or eye discomfort ENMT: Denies: throat pain or dental pain Card: Denies: chest pain Resp: Denies: dyspnea GI: Denies: abdominal pain, nausea, vomiting or diarrhea : Denies: dysuria Musc: Denies: neck pain or back pain Skin/Breast: Denies: rash Neuro: Denies: headache(s) Psych: Denies: depression Aaron/Lymph: Denies: easy bruising All/Imm: Denies: urticaria PFSH ED PFSH: Medical History Acute cystitis Altered mental status Aortic stenosis Had TAVR replacement 2017 Atrial fibrillation Atrial fibrillation with slow ventricular response Bilateral renal masses CHF (congestive heart failure) EF 45 by transesophageal echo January 2019 Chronic antibiotic suppression Chronic anticoagulation coumadin Chronic urinary tract infection, suppressed Chronic use of steroids Complex renal cyst Congestive heart failure CVA (cerebral vascular accident) Dementia Diabetes Dyslipidemia Endocarditis history of chronic viridans endocarditis, 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 Essential hypertension Gout High risk medication use arava and chronic steroids 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 Hx of [place] spotted fever Ischemic cardiomyopathy Left ventricular hypertrophy Liver cirrhosis Obesity AJAY (obstructive sleep apnea) Pre-syncope Pulmonary HTN Pyelonephritis of right kidney Recurrent UTI Multidrug-resistant organisms Renal calculi Restrictive lung disease Rheumatoid arthritis Rheumatoid arthritis Shoulder pain Skin lesion Syncope Syncope and collapse Thalassemia Urinary tract infection due to ESBL Klebsiella Surgical History H/O lithotripsy S/P TAVR (transcatheter aortic valve replacement) (~2018) Family History Mother Stroke Father Myocardial infarction Other CAD (coronary artery disease) Chronic kidney disease (CKD) Diabetes Hypertension Social History Smoking and tobacco status: former smoker Quit status (tobacco): has quit using tobacco Year quit tobacco: 2019 - Chewing Tobacco Former quit date comment: Hx of 1/2 can x 50 Years Second hand smoke exposure: No Alcohol intake: former Lives independently: No Household members: spouse Marital status: Current occupational status: retired and disabled Current gender identity: Male Physical Exam Const: COMMON NORMALS: no acute distress, patient oriented x3 and healthy appearing HENMT: COMMON NORMALS: normocephalic and atraumatic HEAD & SCALP: normocephalic and atraumatic Eye: COMMON NORMALS: Equal, round and reactive pupils present and EOMs intact bilaterally PUPIL: Yes Equal, round and reactive pupils present Neck/C-Spine: COMMON NORMALS: full ROM and supple Chest: COMMONS NORMALS: normal inspection of the chest and normal palpation of entire chest wall Resp: COMMON NORMALS: normal respiratory effort, No retractions, No use of accessory muscles and clear to auscultation bilaterally AUSCULTATION: clear to auscultation bilaterally Cardio: COMMON NORMALS: regular rate, regular rhythm and No murmurs present (Cardio) RATE: regular rate RHYTHM: regular rhythm GI: COMMON NORMALS: Normal to inspection, nondistended, normoactive bowel sounds present, Soft to palpation, non-tender and no masses PALPATION: Yes Soft to palpation Extremity: COMMON NORMALS: normal to inspection and full ROM Neuro: COMMON NORMALS: patient oriented x3, moves all extremities and no focal motor deficits Psych: COMMON NORMALS: mental status grossly normal, Normal thought process present and cooperative THOUGHT PROCESS: Normal thought process present Skin: COMMON NORMALS: no rashes or lesions noted and no wounds GENERAL SKIN EXAM: no rashes or lesions noted Course Vital Signs: Vital signs: Vital Signs Temperature 98.8 F 01/12/23 22:08 Pulse Rate 89 01/12/23 22:08 Respiratory Rate 22 H 01/12/23 22:08 Blood Pressure 133/82 01/12/23 22:08 Pulse Oximetry 92 01/12/23 22:08 Oxygen Delivery Me thod 01/12/23 22:08 MDM - Weakness Medical Decision Making Patient presents for generalized weakness his blood work here shows no acute abnormalities he has been well-appearing here I did offer him admission [place] [facility] [place] he states he does not want to go to a [place] [facility] [place] we will discharge and see if I get him home health set up. Lab Data 01/12/23 22:23 01/12/23 22:23 Radiology Impressions Chest X-Ray 01/12/23 22:04 IMPRESSION: 1. Borderline cardiomegaly. 2. Mild peribronchial thickening and/or mild perihilar linear markings consistent with bronchitis and/or viral pneumonitis and/or reactive airway disease and/or atypical pulmonary interstitial edema. Laboratory Results WBC 11.5 10^3/uL (4.0-10.0) H 01/12/23 22: RBC 6.26 10^6/uL (4.1-5.3) H 01/12/23 22: Hgb 10.4 g/dL (11.7-16.6) L 01/12/23: Hct 36.2 % (42.0-52.0) L 01/12/23: MCV 57.8 fl (80-94) L 01/12/23: MCH 16.6 pg (28.0-34.0) L 01/12/23: MCHC 28.7 g/dL (30.0-36.0) L 01/12/23: RDW 20.2 % (12.1-15.1) H 01/12/23: Plt Count 372 10^3/cmm (130-400) 01/12/23: MPV 9.4 fL (7.4-10.4) 01/12/23: Neut % (Auto) 78.7 % 01/12/23: Lymph % (Auto) 11.4 % 01/12/23: Real % (Auto) 7.0 % 01/12/23: Eos % (Auto) 1.8 % 01/12/23 22: Baso % (Auto) 0.6 % 01/12/23 22: Neut # (Auto) 9.00 10^3/uL (1.8-7.7) H 01/12/23 22: Lymph # (Auto) 1.3 10^3/uL (0.8-4.8) 01/12/23 22: Real # (Auto) 0.8 10^3/uL (0.2-0.9) 01/12/23 22: Eos # (Auto) 0.2 10^3/uL (0.0-0.8) 01/12/23: Baso # (Auto) 0.1 10^3/uL (0.0-0.1) 01/12/23: Nucleated RBC % (auto) 0.3 % 01/12/23: Nucleated RBCs # 0.0 /100WBC 01/12/23 22: PT 21.20 SECONDS (12.1-14.9) H 01/12/23 22: INR 1.77 (0.8-1.2) H 01/12/23 22: Sodium 141 mmol/L (136-145) 01/12/23 22: Potassium 4.6 mmol/L (3.5-5.1) 01/12/23 22: Chloride 106 mmol/L (98-107) 01/12/23 22: Carbon Dioxide 27 mmol/L (22-29) 01/12/23: Anion Gap 12.6 (5-19) 01/12/23 22: BUN 23 mg/dL (8-23) 01/12/23 22: Creatinine 1.0 mg/dL (0.7-1.2) 01/12/23 22: GFR Calculation 74.1 mL/min (90-130) L 01/12/23 22: Glucose 172 mg/dL (65-115) H 01/12/23 22: POC Glucose 160 mg/dL (70-110) H 01/12/23 23:05 Calculated Osmolality 300 mOsm/kg (285-295) H 01/12/23 22: Calcium 9.4 mg/dL (8.5-10.5) 01/12/23 22:23 Magnesium 2.2 mg/dL (1.7-2.3) 01/12/23 22:23 Total Bilirubin 0.5 mg/dL (0.15-1.2) 01/12/23 22:23 AST 17 U/L (0-40) 01/12/23 22:23 ALT 11 U/L (0-41) 01/12/23 22:23 Alkaline Phosphatase 75 U/L (40-130) 01/12/23 22:23 NT-Pro-B Natriuret Pep 3505 pg/mL (0-125) H 01/12/23 22:23 Total Protein 7.1 g/dL (6.6-8.7) 01/12/23 22: Albumin 3.2 g/dL (3.5-5.2) L 01/12/23 22:23 Globulin 3.9 g/dL (1.3-4.6) 01/12/23 22:23 TSH 1.42 uIU/mL (0.27-4.20) 01/12/23 22:23 Urine Color Yellow (Yellow) 01/12/23 22:58 Urine Appearance Clear (CLEAR) 01/12/23 22:58 Urine pH 5 (5-7) 01/12/23 22:58 Ur Specific [place] 1.015 (1.005-1.030) 01/12/23 22:58 Urine Protein Trace (Negative) 01/12/23 22:58 Urine Glucose (UA) Norm (Normal) 01/12/23 22:58 Urine Ketones Negative (Negative) 01/12/23 22:58 Urine Blood 2+ (Negative) H 01/12/23 22:58 Urine Nitrate Negative (Negative) 01/12/23 22:58 Urine Bilirubin Neg (Negative) 01/12/23 22:58 Urine Urobilinogen Norm mg/dL (Negative) 01/12/23 22:58 Ur Leukocyte Esterase 1+ (Negative) H 01/12/23 22:58 Urine RBC 5-10 /hpf (0-2) H 01/12/23 22:58 Urine WBC 25-40 /hpf (0-5) H 01/12/23 22:58 Ur Squamous Epith Cells 0-4 /hpf (0-5) H 01/12/23 22:58 Amorphous Sediment Not Reportable 01/12/23 22:58 Urine Bacteria Trace /hpf (NONE) 01/12/23 22:58 Influenza Type A Ag negative (Negative) 01/12/23 22:23 Influenza Type B Ag negative (Negative) 01/12/23 22:23 SARS-CoV-2 Ag (Rapid) negative (Negative) 01/12/23 22:23 Discharge Plan Discharge Patient Disposition: Home Clinical Impression: Weakness Condition: Stable Prescriptions: No Action citalopram [Celexa] 10 mg tablet 10 mg PO QAM potassium chloride 20 mEq Tablet Extended Release 20 meq PO DAILY Hold Instructions: see pcp pantoprazole [Protonix] 40 mg Tablet,Delayed Release (Dr/Ec) 40 mg PO DAILY@06 aspirin 81 mg Tablet,Delayed Release (Dr/Ec) 81 mg PO BEDTIME Rx Instructions: ON HOLD FOR PROCEDURE insulin glargine [Lantus Solostar U-100 Insulin] 100 unit/mL (3 mL) insulin pen 25 unit SUBCUT BID Florajen Acidophilus 20 billion cell Capsule 20,000 mmu cells PO BEDTIME PNV cmb#95-ferrous fumarate-FA [ Multivitamins] 28 mg iron- 800 mcg Tablet 1 tab PO DAILY@06 atorvastatin 40 mg tablet 40 mg PO DAILY@19 diltiazem HCl 120 mg capsule,extended release 24hr 120 mg PO DAILY@06 Hold Instructions: see pcp acetaminophen 500 mg Tablet 500 mg PO Q6H PRN (Reason: Pain) ascorbic acid (vitamin C) [Vitamin C] 500 mg Tablet 500 mg PO QPM nitroglycerin [Nitrostat] 0.4 mg Tablet, Sublingual 0.4 mg SUBLINGUAL Q5M PRN (Reason: Chest Pain) Rx Instructions: do not exceed 3 doses per episode fosfomycin tromethamine 3 gram packet 3 g PO Q3D 90 Days Qty: 30 4RF hydroxyzine pamoate 25 mg capsule 25 mg PO BID bumetanide 2 mg tablet 1 mg PO DAILY Qty: 60 0RF prednisone 5 mg tablet 10 mg PO QAM metronidazole 500 mg tablet 500 mg PO Q12H 14 Days Qty: 28 0RF ciprofloxacin HCl 500 mg tablet 500 mg PO BID 14 Days Qty: 28 0RF carvedilol 6.25 mg tablet 9.375 mg PO BID Hold Instructions: Resume on 11/23/22. warfarin 1 mg tablet 6 mg PO QPM Rx Instructions: ON HOLD FOR PROCEDURE cholecalciferol (vitamin D3) [Vitamin D3] 125 mcg (5,000 unit) Tablet 125 mcg PO QAM Discharge Orders: Discharge ED (Routine); Ordered 01/12/23 Ordered By: Schuyler Smith Referrals: Gregoria Cheek FNP [Primary Care Provider] - 1-3 days Discharge Diet: Advance as tolerated Discharge Activity: Resume usual activity Patient Instructions: Weakness (ED) Coding Level of Care Code ED Certified Nurse Midwife for John Jade
[2023-01-12 22:28] LABS: Basophils # 0.1 10^3/uL (0.0-0.1); Basophils % 0.6 %; Eosinophils # 0.2 10^3/uL (0.0-0.8); Eosinophils % 1.8 %; Hematocrit 36.2 % (42.0-52.0); Hemoglobin 10.4 g/dL (11.7-16.6); Lymphocytes # 1.3 10^3/uL (0.8-4.8); Lymphocytes % 11.4 %; Mean Corpuscular HGB Conc 28.7 g/dL (30.0-36.0); Mean Corpuscular Hemoglobin 16.6 pg (28.0-34.0); Mean Corpuscular Volume 57.8 fl (80-94); Mean Platelet Volume 9.4 fL (7.4-10.4); Monocytes # 0.8 10^3/uL (0.2-0.9); Neutrophils % 78.7 %; Nucleated Red Blood Cells % 0.3 %; Platelet Count 372 10^3/cmm (130-400); Red Blood Count 6.26 10^6/uL (4.1-5.3); Red Cell Distribution Width 20.2 % (12.1-15.1); White Blood Count 11.5 10^3/uL (4.0-10.0)
[2023-01-12 22:39] LABS: INR 1.77 (0.8-1.2)
[2023-01-12 22:44] LABS: Influenza A by IFA negative (Negative); Influenza B by IFA negative (Negative); SARS Covid-2 Antigen negative (Negative)
--- NOTE | 2023-01-12 22:55 | PC.NURSE ---
Pt. states that patient is allergic to iodine. I have used soap and water to clean patient urethra before placing urinary catheter.
[2023-01-12 22:57] LABS: Alanine Aminotransferase 11 U/L (0-41); Albumin Level 3.2 g/dL (3.5-5.2); Alkaline Phosphatase 75 U/L (40-130); Anion Gap 12.6 (5-19); Aspartate Amino Transferase 17 U/L (0-40); Blood Urea Nitrogen 23 mg/dL (8-23); Calcium 9.4 mg/dL (8.5-10.5); Carbon Dioxide 27 mmol/L (22-29); Chloride 106 mmol/L (98-107); Globulin 3.9 g/dL (1.3-4.6); Glomerular Filtration Rate 74.1 mL/min (90-130); Glucose 172 mg/dL (65-115); Magnesium 2.2 mg/dL (1.7-2.3); NT Pro B Type Natriuretic Pept 3505 pg/mL (0-125); Osmolality Calculated 300 mOsm/kg (285-295); Potassium 4.6 mmol/L (3.5-5.1); Sodium 141 mmol/L (136-145); Thyroid Stimulating Hormone 1.42 uIU/mL (0.27-4.20); Total Bilirubin 0.5 mg/dL (0.15-1.2); Total Protein 7.1 g/dL (6.6-8.7)
[2023-01-12 23:11] LABS: Glucose Point of Care 160 mg/dL (70-110)
[2023-01-12 23:20] LABS: Urine Color Yellow (Yellow)
[2023-01-12 23:21] LABS: Add Urine Culture? Yes; Add Urine Microscopic? YES; Bacteria Urine TRACE /hpf; Bilirubin Urine Neg (Negative); Blood Urine 2+ (Negative); Glucose Urine UA Norm (Normal); Ketones Urine Negative (Negative); Leukocyte Esterase Urine 1+ (Negative); Nitrate Urine Negative (Negative); Protein Urine Trace (Negative); Specific Gravity, Urine 1.015 (1.005-1.030); Squamous Epithelial Cell Urine 0-4 /hpf (0-5); Urine Appearance Clear (CLEAR); Urobilinogen Urine Norm (Negative); WBC Urine 25-40 /hpf (0-5); pH Urine 5 (5-7)
[2023-01-12] MEDS: FUROsemide 10 mg/mL SDV 10mL 60 MG IVP (23:31)
[2023-01-13 00:09] VITALS: BP 150/88; PULSE 78; RESP 20; O2SAT 91
--- NOTE | 2023-01-13 11:36 | DCPLANNER ---
preparation room manager had message to speak with patient about getting home health services set up in the home. preparation room manager spoke with patients , she stated that the patient had someone coming to see patient in the home today.
== END 2023-01-13 00:12 | disposition home or self-care (01) ==
PROVIDERS: Emergency Provider Emergency Medicine; PCP Nurse Practitioner Family
DX: R53.1 Weakness (principal); Z79.01 Long term (current) use of anticoagulants; Z79.82 Long term (current) use of aspirin; Z79.4 Long term (current) use of insulin; Z20.822 Contact with and (suspected) exposure to COVID-19; Z87.891 Personal history of nicotine dependence; I11.0 Hypertensive heart disease with heart failure; I50.9 Heart failure, unspecified; Z86.73 Personal history of transient ischemic attack (TIA), and cerebral infarction without residual deficits; F03.90 Unspecified dementia, unspecified severity, without behavioral disturbance, psychotic disturbance, mood disturbance, and anxiety; E11.9 Type 2 diabetes mellitus without complications
CPT/HCPCS: 36416; 51702; 71045; 80053; 81001; 82962; 83735; 83880; 84443; 85025; 85610; 87086; 87426; 87804; 93005; 96374; 99285; J1940

== ENCOUNTER 2023-01-13 18:16 | Emergency (ER) | payer MEDICARE, OTHER, SELFPAY ==
[2023-01-13 18:20] VITALS: BMI 35.9
[2023-01-13 18:23] VITALS: BP 121/89; PULSE 90; RESP 20; TEMP 36.4; O2SAT 95
--- NOTE | 2023-01-13 20:39 | W.ED.GENADLT ---
HPI - General Adult General: Chief complaint: General Medical Stated complaint: SOB,cough Time Seen by Provider: 01/13/23 20:39 History of Present Illness: Mr. Loyd is a 67-year-old gentleman with complex past medical history presenting to the emergency department for evaluation of lower blood pressure and abnormal lung sounds. He was seen for increased respiratory symptoms recently and initiated on Lasix. He subjectively feels improved today however home health noted his blood pressure no lower than normal and recommended further ED evaluation. No other specific changes in health, exacerbating, or alleviating factors identified. Onset (ago): day(s) Severity: mild Relieving factors: none Exacerbating factors: none Review of Systems General: Reports: 10 or more systems reviewed and unremarkable except in HPI and below PFSH ED PFSH: Medical History Acute cystitis Altered mental status Aortic stenosis Had TAVR replacement 2017 Atrial fibrillation Atrial fibrillation with slow ventricular response Bilateral renal masses CHF (congestive heart failure) EF 45 by transesophageal echo January 2019 Chronic antibiotic suppression Chronic anticoagulation coumadin Chronic urinary tract infection, suppressed Chronic use of steroids Complex renal cyst Congestive heart failure CVA (cerebral vascular accident) Dementia Diabetes Dyslipidemia Endocarditis history of chronic viridans endocarditis, 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 Essential hypertension Gout High risk medication use arava and chronic steroids 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 Hx of [place] spotted fever Ischemic cardiomyopathy Left ventricular hypertrophy Liver cirrhosis Obesity AJAY (obstructive sleep apnea) Pre-syncope Pulmonary HTN Pyelonephritis of right kidney Recurrent UTI Multidrug-resistant organisms Renal calculi Restrictive lung disease Rheumatoid arthritis Rheumatoid arthritis Shoulder pain Skin lesion Syncope Syncope and collapse Thalassemia Urinary tract infection due to ESBL Klebsiella Surgical History H/O lithotripsy S/P TAVR (transcatheter aortic valve replacement) (~2018) Family History Mother Stroke Father Myocardial infarction Other CAD (coronary artery disease) Chronic kidney disease (CKD) Diabetes Hypertension Social History Smoking and tobacco status: former smoker Quit status (tobacco): has quit using tobacco Year quit tobacco: 2019 - Chewing Tobacco Former quit date comment: Hx of 1/2 can x 50 Years Second hand smoke exposure: No Alcohol intake: former Lives independently: No Household members: spouse Marital status: Current occupational status: retired and disabled Current gender identity: Male Physical Exam Const: COMMON NORMALS: alert GENERAL APPEARANCE: cooperative and well developed HENMT: COMMON NORMALS: normocephalic and atraumatic HEAD & SCALP: normocephalic and atraumatic Eye: COMMON NORMALS: conjunctivae normal CONJUNCTIVA: Yes conjunctivae normal SCLERA: sclerae normal Neck/C-Spine: COMMON NORMALS: supple GENERAL: Yes trachea midline Resp: EFFORT & INSPECTION: Yes able to speak in complete sentences AUSCULTATION: rhonchi Cardio: COMMON NORMALS: regular rate and regular rhythm RATE: regular rate RHYTHM: regular rhythm GI: COMMON NORMALS: Soft to palpation PALPATION: Yes Soft to palpation and No Tenderness to palpation present (GI) Extremity: GENERAL: Yes normal exam except as noted and Yes edema Neuro: COMMON NORMALS: moves all extremities SENSORIUM/ORIENTATION: Yes alert and No Orientation impaired Psych: COMMON NORMALS: mental status grossly normal and Normal thought process present THOUGHT PROCESS: Normal thought process present Course Vital Signs: Vital signs: Vital Signs Temperature 97.5 F L 01/13/23 21:14 Pulse Rate 89 01/13/23 22:46 Respiratory Rate 18 01/13/23 22:46 Blood Pressure 139/76 01/13/23 22:46 Pulse Oximetry 97 01/13/23 22:46 Oxygen Delivery Me thod 01/13/23 22:46 MDM - General Adult Medical Decision Making 67-year-old gentleman with history of CHF presenting for evaluation due to abnormal physical exam findings. The patient actually feels improved overall. He is nontoxic in appearance. Blood pressure is improved. EKG notable for atrial fibrillation with left axis deviation, no STEMI. Labs with mild leukocytosis and hemoconcentration compared to prior. Metabolic panel appears to be tolerating diuresis. Initial troponin elevated however overall within patient's prior range. BNP not significantly changed. Chest x-ray with mild increased airspace findings. Most likely etiology of patient's symptoms is multifactorial however given improvement is appropriate for continued outpatient diuresis and management. No chest pain, patient wishes to forego repeat troponin. The results of ED evaluation were discussed with the patient including prescriptions and/or symptomatic cares (if applicable) including appropriate and responsible use, followup plan, and return precautions. The patient verbalized understanding and felt safe for discharge. Medical Records I reviewed the patient's medical records. Lab Data I reviewed the patient's lab results. 01/13/23 21:30 01/13/23 21:30 Radiology Impressions Chest X-Ray 01/13/23 20:44 IMPRESSION: Mild peribronchial thickening and/or mild perihilar linear markings consistent with bronchitis and/or viral pneumonitis and/or reactive airway disease and/or atypical pulmonary interstitial edema. Laboratory Results WBC 11.7 10^3/uL (4.0-10.0) H 01/13/23 21: RBC 6.29 10^6/uL (4.1-5.3) H 01/13/23 21: Hgb 10.4 g/dL (11.7-16.6) L 01/13/23 21: Hct 35.9 % (42.0-52.0) L 01/13/23 21: MCV 57.1 fl (80-94) L 01/13/23 21:30 MCH 16.5 pg (28.0-34.0) L 01/13/23 21: MCHC 29.0 g/dL (30.0-36.0) L 01/13/23 21: RDW 20.3 % (12.1-15.1) H 01/13/23 21: Plt Count 385 10^3/cmm (130-400) 01/13/23 21: MPV 9.4 fL (7.4-10.4) 01/13/23 21: Neut % (Auto) 72.2 % 01/13/23 21: Lymph % (Auto) 14.9 % 01/13/23 21: [place] % (Auto) 7.9 % 01/13/23: Eos % (Auto) 3.7 % 01/13/23 21: Baso % (Auto) 0.9 % 01/13/23 21: Neut # (Auto) 8.46 10^3/uL (1.8-7.7) H 01/13/23 21: Lymph # (Auto) 1.7 10^3/uL (0.8-4.8) 01/13/23 21:30 [place] # (Auto) 0.9 10^3/uL (0.2-0.9) 01/13/23 21:30 Eos # (Auto) 0.4 10^3/uL (0.0-0.8) 01/13/23 21:30 Baso # (Auto) 0.1 10^3/uL (0.0-0.1) 01/13/23 21:30 Nucleated RBC % (auto) 0.2 % 01/13/23 21:30 Nucleated RBCs # 0.0 /100WBC 01/13/23 21:30 Sodium 137 mmol/L (136-145) 01/13/23 21:30 Potassium 4.6 mmol/L (3.5-5.1) 01/13/23 21:30 Chloride 99 mmol/L (98-107) 01/13/23 21: Carbon Dioxide 26 mmol/L (22-29) 01/13/23 21:30 Anion Gap 16.6 (5-19) 01/13/23 21:30 BUN 25 mg/dL (8-23) H 01/13/23 21:30 Creatinine 1.0 mg/dL (0.7-1.2) 01/13/23 21:30 GFR Calculation 74.1 mL/min (90-130) L 01/13/23 21: Glucose 127 mg/dL (65-115) H 01/13/23 21:30 Calculated Osmolality 290 mOsm/kg (285-295) 01/13/23 21: Calcium 9.8 mg/dL (8.5-10.5) 01/13/23 21: Magnesium 2.0 mg/dL (1.7-2.3) 01/13/23 21:30 Total Bilirubin 0.6 mg/dL (0.15-1.2) 01/13/23 21:30 AST 37 U/L (0-40) 01/13/23 21:30 ALT 13 U/L (0-41) 01/13/23 21:30 Alkaline Phosphatase 70 U/L (40-130) 01/13/23 21:30 Troponin T Baseline 40 ng/L (0-15) H 01/13/23 21:30 NT-Pro-B Natriuret Pep 3846 pg/mL (0-125) H 01/13/23 21:30 Total Protein 6.9 g/dL (6.6-8.7) 01/13/23 21:30 Albumin 3.2 g/dL (3.5-5.2) L 01/13/23 21:30 Globulin 3.7 g/dL (1.3-4.6) 01/13/23 21:30 TSH 0.98 uIU/mL (0.27-4.20) 01/13/23 21:30 Discharge Plan Discharge Patient Disposition: Home Clinical Impression: Shortness of breath Condition: Stable Prescriptions: No Action citalopram [Celexa] 10 mg tablet 10 mg PO QAM amoxicillin-pot clavulanate 875-125 mg tablet 1 tab PO BID 14 Days Qty: 28 0RF potassium chloride 20 mEq Tablet Extended Release 20 meq PO DAILY Hold Instructions: see pcp pantoprazole [Protonix] 40 mg Tablet,Delayed Release (Dr/Ec) 40 mg PO DAILY@06 aspirin 81 mg Tablet,Delayed Release (Dr/Ec) 81 mg PO BEDTIME Rx Instructions: ON HOLD FOR PROCEDURE insulin glargine [Lantus Solostar U-100 Insulin] 100 unit/mL (3 mL) insulin pen 25 unit SUBCUT BID Florajen Acidophilus 20 billion cell Capsule 20,000 mmu cells PO BEDTIME PNV cmb#95-ferrous fumarate-FA [ Multivitamins] 28 mg iron- 800 mcg Tablet 1 tab PO DAILY@06 atorvastatin 40 mg tablet 40 mg PO DAILY@19 diltiazem HCl 120 mg capsule,extended release 24hr 120 mg PO DAILY@06 Hold Instructions: see pcp acetaminophen 500 mg Tablet 500 mg PO Q6H PRN (Reason: Pain) ascorbic acid (vitamin C) [Vitamin C] 500 mg Tablet 500 mg PO QPM nitroglycerin [Nitrostat] 0.4 mg Tablet, Sublingual 0.4 mg SUBLINGUAL Q5M PRN (Reason: Chest Pain) Rx Instructions: do not exceed 3 doses per episode fosfomycin tromethamine 3 gram packet 3 g PO Q3D 90 Days Qty: 30 4RF hydroxyzine pamoate 25 mg capsule 25 mg PO BID bumetanide 2 mg tablet 1 mg PO DAILY Qty: 60 0RF prednisone 5 mg tablet 10 mg PO QAM carvedilol 6.25 mg tablet 9.375 mg PO BID Hold Instructions: Resume on 11/23/22. warfarin 1 mg tablet 6 mg PO QPM Rx Instructions: ON HOLD FOR PROCEDURE cholecalciferol (vitamin D3) [Vitamin D3] 125 mcg (5,000 unit) Tablet 125 mcg PO QAM Discharge Orders: Discharge ED (Routine); Ordered 01/13/23 Ordered By: Deion Thompson Referrals: Gregoria Cheek FNP [Primary Care Provider] - Discharge Diet: Usual diet Discharge Activity: Increase activity as tolerated Patient Instructions: Pulmonary Edema (ED), Shortness of Breath (ED) Activity Restrictions/Additional Instructions: Thank you for visiting the emergency department. You were seen and evaluated for concern over blood pressure and shortness of breath. Labs look overall similar and I think that you do have mild improvement on chest x-ray though atypical infection remains a possibility. I will prescribe you antibiotics, please continue your other medications as prescribed including antibiotics Please follow-up with your primary care provider. Return to the emergency department for worsening symptoms, chest pain, or anything else that you are concerned about and feel needs emergency department evaluation. Coding Level of Care Code ED Mobility Architect Manager for John Jade
--- NOTE | 2023-01-13 20:44 | XRR_ITS ---
PROCEDURE INFORMATION: Exam: XR Chest Exam date and time: 01/13/2023 8:54 PM Age: 67 years old Clinical indication: Shortness of breath; Additional info: SOB, cp, cough TECHNIQUE: Imaging protocol: Radiologic exam of the chest. Views: 1 view. COMPARISON: CR (CHEST, ) 01/12/2023 10:13 PM FINDINGS: Lungs: Mild peribronchial thickening and/or mild perihilar linear markings consistent with bronchitis and/or viral pneumonitis and/or reactive airway disease and/or atypical pulmonary interstitial edema. Pleural spaces: Unremarkable. No pleural effusion. No pneumothorax. Heart/Mediastinum: Unremarkable. No cardiomegaly. Diaphragm: Elevation of the left hemidiaphragm consistent with eventration. Bones/joints: Unremarkable. Other findings: Patient rotation to the left. XR/XR chest 1V portable [id number] IMPRESSION: Mild peribronchial thickening and/or mild perihilar linear markings consistent with bronchitis and/or viral pneumonitis and/or reactive airway disease and/or atypical pulmonary interstitial edema.
[2023-01-13 21:06] VITALS: BP 166/82; PULSE 86; RESP 24; O2SAT 97
--- NOTE | 2023-01-13 21:07 | ECG_ITS ---
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 Measurements Intervals [place] Rate: 91 P: 0 LA: 0 QRS: -29 QRSD: 91 T: 98 QT: 303 QTc: 374 Interpretive Statements ATRIAL FIBRILLATION BORDERLINE LEFT AXIS DEVIATION [QRS AXIS < -20] LOW QRS VOLTAGE IN PRECORDIAL LEADS [QRS DEFLECTION < 1.0 mV IN CHEST LEADS] PATTERN CONSISTENT WITH PULMONARY DISEASE NONSPECIFIC T-WAVE ABNORMALITY Compared to ECG 01/12/2023 23:01:02 No significant changes Electronically Signed On 01-14-2023 12:16:40 LOGGING CREW SUPERVISOR by Ari Pettit M.D. [email or web address]
[2023-01-13 21:14] VITALS: TEMP 36.4
[2023-01-13 21:47] LABS: Basophils # 0.1 10^3/uL (0.0-0.1); Basophils % 0.9 %; Eosinophils # 0.4 10^3/uL (0.0-0.8); Eosinophils % 3.7 %; Hematocrit 35.9 % (42.0-52.0); Hemoglobin 10.4 g/dL (11.7-16.6); Lymphocytes # 1.7 10^3/uL (0.8-4.8); Lymphocytes % 14.9 %; Mean Corpuscular Hemoglobin 16.5 pg (28.0-34.0); Mean Corpuscular Volume 57.1 fl (80-94); Mean Platelet Volume 9.4 fL (7.4-10.4); Monocytes # 0.9 10^3/uL (0.2-0.9); Monocytes % 7.9 %; Neutrophils # 8.46 10^3/uL (1.8-7.7); Neutrophils % 72.2 %; Nucleated Red Blood Cells % 0.2 %; Platelet Count 385 10^3/cmm (130-400); Red Blood Count 6.29 10^6/uL (4.1-5.3); Red Cell Distribution Width 20.3 % (12.1-15.1); White Blood Count 11.7 10^3/uL (4.0-10.0)
[2023-01-13 22:03] VITALS: BP 143/106; BP 145/79; BP 153/65; PULSE 104; PULSE 107; PULSE 92
[2023-01-13 22:06] LABS: Troponin(5th) Baseline 40 ng/L (0-15)
[2023-01-13 22:07] LABS: Slide Review Slide Review Perform
[2023-01-13 22:16] LABS: Alanine Aminotransferase 13 U/L (0-41); Albumin Level 3.2 g/dL (3.5-5.2); Alkaline Phosphatase 70 U/L (40-130); Blood Urea Nitrogen 25 mg/dL (8-23); Calcium 9.8 mg/dL (8.5-10.5); Carbon Dioxide 26 mmol/L (22-29); Chloride 99 mmol/L (98-107); Globulin 3.7 g/dL (1.3-4.6); Glomerular Filtration Rate 74.1 mL/min (90-130); Glucose 127 mg/dL (65-115); NT Pro B Type Natriuretic Pept 3846 pg/mL (0-125); Osmolality Calculated 290 mOsm/kg (285-295); Sodium 137 mmol/L (136-145); Thyroid Stimulating Hormone 0.98 uIU/mL (0.27-4.20); Total Bilirubin 0.6 mg/dL (0.15-1.2); Total Protein 6.9 g/dL (6.6-8.7)
[2023-01-13 22:33] LABS: Anion Gap 16.6 (5-19); Aspartate Amino Transferase 37 U/L (0-40); Potassium 4.6 mmol/L (3.5-5.1)
[2023-01-13 22:46] VITALS: BP 139/76; PULSE 89; RESP 18; O2SAT 97
== END 2023-01-13 22:55 | disposition home or self-care (01) ==
PROVIDERS: Emergency Provider Emergency Medicine; PCP Nurse Practitioner Family
DX: R06.02 Shortness of breath (principal); Z79.01 Long term (current) use of anticoagulants; Z79.82 Long term (current) use of aspirin; Z79.4 Long term (current) use of insulin; Z87.891 Personal history of nicotine dependence; I11.0 Hypertensive heart disease with heart failure; I50.9 Heart failure, unspecified; Z86.73 Personal history of transient ischemic attack (TIA), and cerebral infarction without residual deficits; F03.90 Unspecified dementia, unspecified severity, without behavioral disturbance, psychotic disturbance, mood disturbance, and anxiety; E11.9 Type 2 diabetes mellitus without complications; E78.5 Hyperlipidemia, unspecified
CPT/HCPCS: 71045; 80053; 83735; 83880; 84443; 84484; 85025; 93005; 99285

== ENCOUNTER → 2023-01-20 10:24 | Outpatient (BNVA) | payer MEDICARE, OTHER, SELFPAY | PROVIDERS: PCP Nurse Practitioner Family; Visit Provider Surgery | DX: K81.9 Cholecystitis, unspecified (principal) | CPT/HCPCS: 99203; 99214 ==

== ENCOUNTER → 2023-01-25 15:13 | Outpatient (BNVA) | payer MEDICARE, OTHER, SELFPAY | PROVIDERS: PCP Nurse Practitioner Family; Visit Provider Urology | DX: N39.0 Urinary tract infection, site not specified (principal); N28.1 Cyst of kidney, acquired; N20.1 Calculus of ureter; B96.89 Other specified bacterial agents as the cause of diseases classified elsewhere | CPT/HCPCS: 99213 ==

== ENCOUNTER → 2023-02-08 12:22 | Outpatient (BNVA) | payer MEDICARE, OTHER, SELFPAY | PROVIDERS: PCP Nurse Practitioner Family; Visit Provider Internal Medicine | DX: I48.91 Unspecified atrial fibrillation (principal); E11.9 Type 2 diabetes mellitus without complications; Z95.2 Presence of prosthetic heart valve; R00.1 Bradycardia, unspecified; Z87.891 Personal history of nicotine dependence; Z79.4 Long term (current) use of insulin | CPT/HCPCS: 99204 ==

== ENCOUNTER → 2023-02-13 12:33 | Outpatient (BNVA) | payer MEDICARE, OTHER, SELFPAY | PROVIDERS: PCP Nurse Practitioner Family; Visit Provider Student in an Organized Health Care Education/Training Program | DX: Z09 Encounter for follow-up examination after completed treatment for conditions other than malignant neoplasm (principal) | CPT/HCPCS: 99214 ==

== ENCOUNTER 2023-03-01 20:19 | Inpatient (IN) | payer MEDICARE, OTHER, SELFPAY ==
[2023-03-01 20:34] VITALS: BP 145/83; PULSE 74; RESP 20; TEMP 36.4; O2SAT 99; BMI 34.4
--- NOTE | 2023-03-01 23:37 | ED_ITS ---
HPI - Male Genitourinary General: Chief complaint: Urogenital-Male Stated complaint: blood in urine low back pain Time Seen by Provider: 03/01/23 23:33 History of Present Illness: Mr. Loyd is a 67-year-old gentleman with complex past medical history presenting to the emergency department for hematuria flank pain. He reports having a known kidney stone and apparently being scheduled for cholecystectomy and possible other procedure involving stent or ureteral intervention tomorrow. Earlier today he had sudden onset of a pain in his right flank associated with gross hematuria. This is persisted. Intensity of abdominal pain is currently mild. Denies other signs systemic illness. No other specific changes in health, exacerbating, or alleviating factors identified. Onset (ago): hour(s) Duration: constant Location: right flank Severity: moderate Relieving factors: none Exacerbating factors: none Associated symptoms: Reports hematuria Review of Systems General: Reports: 10 or more systems reviewed and unremarkable except in HPI and below : Reports: hematuria PFSH ED PFSH: Medical History Acute cystitis Altered mental status Aortic stenosis Had TAVR replacement 2017 Atrial fibrillation Atrial fibrillation with slow ventricular response Bilateral renal masses CHF (congestive heart failure) EF 45 by transesophageal echo January 2019 Chronic antibiotic suppression Chronic anticoagulation coumadin Chronic cystitis Chronic urinary tract infection, suppressed Chronic use of steroids Complex renal cyst Congestive heart failure CVA (cerebral vascular accident) Dementia Diabetes Dyslipidemia Endocarditis history of chronic viridans endocarditis, 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 Essential hypertension Gout High risk medication use arava and chronic steroids 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 Hx of [place] spotted fever Ischemic cardiomyopathy Left ventricular hypertrophy Liver cirrhosis Obesity AJAY (obstructive sleep apnea) Pre-syncope Pulmonary HTN Pyelonephritis of right kidney Recurrent UTI Multidrug-resistant organisms Renal calculi Restrictive lung disease Rheumatoid arthritis Rheumatoid arthritis Shoulder pain Skin lesion Syncope Syncope and collapse Thalassemia Urinary tract infection due to ESBL Klebsiella Surgical History H/O lithotripsy S/P TAVR (transcatheter aortic valve replacement) (~2017) Family History Mother Stroke Father Myocardial infarction Other CAD (coronary artery disease) Chronic kidney disease (CKD) Diabetes Hypertension Social History Smoking and tobacco status: former smoker Quit status (tobacco): has quit using tobacco Year quit tobacco: 2019 - Chewing Tobacco Former quit date comment: Hx of 1/2 can x 50 Years Second hand smoke exposure: No Alcohol intake: former Substance/Drug Use: never Lives independently: No Household members: spouse Marital status: Current occupational status: retired and disabled Current gender identity: Male Physical Exam Const: COMMON NORMALS: alert GENERAL APPEARANCE: cooperative and well deve loped HENMT: COMMON NORMALS: normocephalic and atraumatic HEAD & SCALP: normocephalic and atraumatic Eye: COMMON NORMALS: conjunctivae normal CONJUNCTIVA: Yes conjunctivae normal SCLERA: sclerae normal Neck/C-Spine: COMMON NORMALS: supple GENERAL: Yes trachea midline Resp: COMMON NORMALS: clear to auscultation bilaterally EFFORT & INSPECTION: Yes able to speak in complete sentences AUSCULTATION: clear to auscultation bilaterally Cardio: COMMON NORMALS: regular rate and regular rhythm RATE: regular rate RHYTHM: regular rhythm GI: COMMON NORMALS: Soft to palpation PALPATION: Yes Soft to palpation, Yes Tenderness to palpation present (GI), No Guarding due to palpation present (GI) and No Rigid due to palpation : COMMON NORMALS: Yes normal external exam, Yes Testes normal and Yes scrotum normal Extremity: GENERAL: Yes normal exam except as noted and No edema Neuro: COMMON NORMALS: moves all extremities SENSORIUM/ORIENTATION: Yes rangel rt and No Orientation impaired Psych: COMMON NORMALS: mental status grossly normal and Normal thought process present THOUGHT PROCESS: Normal thought process present Course Vital Signs: Vital signs: Vital Signs Temperature 97.9 F 03/09/23 16:00 Pulse Rate 105 H 03/09/23 16:00 Respiratory Rate 18 03/09/23 16:00 Blood Pressure 125/69 03/09/23 16:00 Pulse Oximetry 96 03/09/23 16:00 Oxygen Delivery Me thod Room Air 03/09/23 12:00 Oxygen Flow Rate 2 03/08/23 07:25 MDM - Male Medical Decision Making 67-year-old gentleman with extremely complex past history presenting with known kidney stone with sudden onset of pain and hematuria. Exam as above. Labs notable for leukocytosis, normal hemoglobin with microcytic cells, normal platelet count. Metabolic panel with no significant electrolyte derangement. Urinalysis is concerning for urinary tract infection. Patient has history of Klebsiella pneumonia ESBL urine tract infections. CT demonstrate similar findings to prior including right proximal ureteral stone. Patient treated with antibiotics. Urology consulted, okay to see in the morning. The results of ED evaluation were discussed with the patient including plan for admission due to requirement for level of care not available if discharged to prevent significant worsening/deterioration. Patient agreeable with plan. Discussed with hospitalist service who was agreeable to admit patient. Medical Records I reviewed the patient's medical records. Lab Data I reviewed the patient's lab results. 03/08/23 11:06 03/08/23 11:06 Radiology Impressions Abdomen/Pelvis CT 03/02/23 00:59 IMPRESSION: 1. From 01/04/2023, no significant change. 2. No small bowel obstruction, abscess or free air. 3. Unchanged right proximal ureteral calculus causing no significant obstruction. Other tiny kidney stones, chronic renal lesions, etc. 4. Redemonstrated fat containing umbilical hernia with adjacent periumbilical superficial soft tissue edema versus cellulitis/panniculitis. COMMENTS: Consistent with the [employer]'s Incidental Findings Committee white paper (J Am Frances Radiol 2018): Any incidental renal lesion less than 1 cm or classified as too small to characterize, or any incidental cystic renal lesion characterized as simple-appearing, is likely benign. No follow-up imaging is recommended for these lesions per consensus recommendations based on imaging criteria. KUB X-Ray 03/02/23 06:25 IMPRESSION: Previous study demonstrated a right renal calculus which is not clearly delineated on the current study perhaps due to motion artifact and the bowel pattern which is suggesting developing ileus.. C-Arm Fluoroscopy 03/04/23 10:43 Impression: Insertion of right ureteral stent. Abdomen X-Ray 03/07/23 14:24 Impression: Minimal generalized ileus. Chest X-Ray 03/07/23 14:24 Impression: 1. Cardiomegaly and atherosclerosis. 2. Artificial cardiac valve. Head CT 03/07/23 14:24 IMPRESSION: 1. No acute intracranial hemorrhage or edema. 2. Cerebral and cerebellar atrophy and advanced small vessel ischemic disease with prior infarcts as described above. No evidence for an acute infarct or sulcal effacement. Laboratory Results WBC 11.4 10^3/uL (4.0-10.0) H 03/01/23 21: RBC 7.11 10^6/uL (4.1-5.3) H 03/01/23 21:01 Hgb 11.7 g/dL (11.7-16.6) 03/01/23 21:01 Hct 40.9 % (42.0-52.0) L 03/01/23 21: MCV 57.5 fl (80-94) L 03/01/23 21: MCH 16.5 pg (28.0-34.0) L 03/01/23 21: MCHC 28.6 g/dL (30.0-36.0) L 03/01/23 21: RDW 21.3 % (12.1-15.1) H 03/01/23 21: Plt Count 291 10^3/cmm (130-400) 03/01/23 21: MPV 11.4 fL (7.4-10.4) H 03/01/23 21: Neut % (Auto) 74.2 % 03/01/23 21: Lymph % (Auto) 16.9 % 03/01/23 21: [place] % (Auto) 6.9 % 03/01/23 21: Eos % (Auto) 1.1 % 03/01/23 21: Baso % (Auto) 0.5 % 03/01/23 21: Neut # (Auto) 8.42 10^3/uL (1.8-7.7) H 03/01/23 21: Lymph # (Auto) 1.9 10^3/uL (0.8-4.8) 03/01/23 21: [place] # (Auto) 0.8 10^3/uL (0.2-0.9) 03/01/23 21: Eos # (Auto) 0.1 10^3/uL (0.0-0.8) 03/01/23 21: Baso # (Auto) 0.1 10^3/uL (0.0-0.1) 03/01/23 21: Nucleated RBC % (auto) 0 % 03/01/23 21: Nucleated RBCs # 0.0 /100WBC 03/01/23 21:01 PT 15.80 SECONDS (12.1-14.9) H 03/02/23 04:47 INR 1.22 (0.8-1.2) H 03/02/23 04:47 APTT 29.5 SECONDS (23.9-36.7) 03/01/23 00:12 Sodium 139 mmol/L (136-145) 03/01/23 21:01 Potassium 4.4 mmol/L (3.5-5.1) 03/01/23 21:01 Chloride 103 mmol/L (98-107) 03/01/23 21:01 Carbon Dioxide 24 mmol/L (22-29) 03/01/23 21:01 Anion Gap 16.4 (5-19) 03/01/23 21:01 BUN 29 mg/dL (8-23) H 03/01/23 21:01 Creatinine 1.0 mg/dL (0.7-1.2) 03/01/23 21:01 GFR Calculation 74.1 mL/min (90-130) L 03/01/23 21:01 Glucose 208 mg/dL (65-115) H 03/01/23 21:01 Calculated Osmolality 300 mOsm/kg (285-295) H 03/01/23 21:01 Lactic Acid 1.3 mmol/L (0.5-2.2) 03/02/23 04:09 Lactate 1.7 mmol/L (0.5-2.2) 03/01/23 21:01 Calcium 9.5 mg/dL (8.5-10.5) 03/01/23 21:01 Total Bilirubin 0.9 mg/dL (0.15-1.2) 03/01/23 21:01 AST 17 U/L (0-40) 03/01/23 21:01 ALT 18 U/L (0-41) 03/01/23 21:01 Alkaline Phosphatase 67 U/L (40-130) 03/01/23 21:01 Total Protein 6.9 g/dL (6.6-8.7) 03/01/23 21:01 Albumin 3.5 g/dL (3.5-5.2) 03/01/23 21:01 Globulin 3.4 g/dL (1.3-4.6) 03/01/23 21:01 Procalcitonin 0.09 ng/mL (0-0.5) 03/01/23 21:01 Urine Color Yellow (Yellow) 03/02/23 00:31 Urine Appearance Cloudy (CLEAR) A 03/02/23 00:31 Urine pH 5 (5-7) 03/02/23 00:31 Ur Specific [place] 1.010 (1.005-1.030) 03/02/23 00:31 Urine Protein Trace (Negative) 03/02/23 00:31 Urine Glucose (UA) Norm (Normal) 03/02/23 00:31 Urine Ketones Negative (Negative) 03/02/23 00: Urine Blood 3+ (Negative) H 03/02/23 00: Urine Nitrate Positive (Negative) H 03/02/23 00:31 Urine Bilirubin Neg (Negative) 03/02/23 00:31 Urine Urobilinogen Norm mg/dL (Negative) 03/02/23 00:31 Ur Leukocyte Esterase 2+ (Negative) H 03/02/23 00:31 Urine RBC 5-10 /hpf (0-2) H 03/02/23 00:31 Urine WBC >100 /hpf (0-5) H 03/02/23 00:31 Ur Squamous Epith Cells 0-4 /hpf (0-5) H 03/02/23 00:31 Amorphous Sediment Not Reportable 03/02/23 00:31 Urine Bacteria 4+ /hpf (NONE) H 03/02/23 00:31 Discharge Plan Discharge Patient Disposition: Admitted As Inpatient Admit Provider: Micheline Carey Clinical Impression: Recurrent UTI, Nephrolithiasis Condition: Stable Coding Level of Care Code ED 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
[2023-03-01 23:57] LABS: Lactate (Lactic Acid level) 1.7 mmol/L (0.5-2.2)
[2023-03-01 23:58] LABS: Alanine Aminotransferase 18 U/L (0-41); Albumin Level 3.5 g/dL (3.5-5.2); Alkaline Phosphatase 67 U/L (40-130); Anion Gap 16.4 (5-19); Aspartate Amino Transferase 17 U/L (0-40); Blood Urea Nitrogen 29 mg/dL (8-23); Calcium 9.5 mg/dL (8.5-10.5); Carbon Dioxide 24 mmol/L (22-29); Chloride 103 mmol/L (98-107); Globulin 3.4 g/dL (1.3-4.6); Glomerular Filtration Rate 74.1 mL/min (90-130); Glucose 208 mg/dL (65-115); Osmolality Calculated 300 mOsm/kg (285-295); Potassium 4.4 mmol/L (3.5-5.1); Sodium 139 mmol/L (136-145); Total Bilirubin 0.9 mg/dL (0.15-1.2); Total Protein 6.9 g/dL (6.6-8.7)
[2023-03-02] VITALS (22 sets, daily range): BP systolic 98–180; BP diastolic 49–87; PULSE 57–105; RESP 16–22; TEMP 36.7–39.4; O2SAT 92–100
[2023-03-02 00:10] LABS: Basophils # 0.1 10^3/uL (0.0-0.1); Basophils % 0.5 %; Eosinophils # 0.1 10^3/uL (0.0-0.8); Eosinophils % 1.1 %; Hematocrit 40.9 % (42.0-52.0); Hemoglobin 11.7 g/dL (11.7-16.6); Lymphocytes # 1.9 10^3/uL (0.8-4.8); Lymphocytes % 16.9 %; Mean Corpuscular HGB Conc 28.6 g/dL (30.0-36.0); Mean Corpuscular Hemoglobin 16.5 pg (28.0-34.0); Mean Corpuscular Volume 57.5 fl (80-94); Monocytes # 0.8 10^3/uL (0.2-0.9); Monocytes % 6.9 %; Neutrophils # 8.42 10^3/uL (1.8-7.7); Neutrophils % 74.2 %; Nucleated Red Blood Cells % 0 %; Platelet Count 291 10^3/cmm (130-400); Red Blood Count 7.11 10^6/uL (4.1-5.3); Red Cell Distribution Width 21.3 % (12.1-15.1); White Blood Count 11.4 10^3/uL (4.0-10.0)
[2023-03-02 00:12] LABS: Mean Platelet Volume 11.4 fL (7.4-10.4); Slide Review Slide Review Perform
[2023-03-02 00:29] LABS: INR 1.24 (0.8-1.2); Partial Thromboplastin Time 29.5 SECONDS (23.9-36.7)
[2023-03-02 00:57] LABS: Urine Appearance Cloudy (CLEAR); Urine Color Yellow (Yellow); pH Urine 5 (5-7)
[2023-03-02 00:58] LABS: Add Urine Culture? Yes; Add Urine Microscopic? YES; Bacteria Urine 4+ /hpf; Bilirubin Urine Neg (Negative); Blood Urine 3+ (Negative); Glucose Urine UA Norm (Normal); Ketones Urine Negative (Negative); Leukocyte Esterase Urine 2+ (Negative); Nitrate Urine Positive (Negative); Protein Urine Trace (Negative); Squamous Epithelial Cell Urine 0-4 /hpf (0-5); Urobilinogen Urine Norm (Negative); WBC Urine >100 /hpf (0-5)
--- NOTE | 2023-03-02 00:59 | CTR_ITS ---
PROCEDURE INFORMATION: Exam: CT Abdomen And Pelvis Without Contrast Exam date and time: 03/02/2023 1:06 AM Age: 67 years old Clinical indication: Abdominal pain; Right; Prior surgery; Surgery type: Tavr; Patient HX: C/O RT flank pain with hematuria. ; Additional info: R flank pain, hematuria TECHNIQUE: Imaging protocol: Computed tomography of the abdomen and pelvis without contrast. Radiation optimization: All CT scans at this facility use at least one of these dose optimization techniques: automated exposure control; mA and/or kV adjustment per patient size (includes targeted exams where dose is matched to clinical indication); or iterative reconstruction. REPORTING DATA: Count of CT and Cardiac NM exams in prior 12 months: This patient has received 9 known CTs and 0 known cardiac nuclear medicine studies in the 12 months prior to the current study. COMPARISON: [place] [id number] 01/04/2023 8:29 PM RADIATION DOSE METRICS: Total DLP (mGy-cm): 1198.13 FINDINGS: Lungs: Mild lung base atelectasis or scarring. Heart: Heart is large. Small pericardial effusion. Partially assessed probable TAVR. Liver: Unremarkable. No discrete mass. Gallbladder and bile ducts: Small gallstones are visualized. Pancreas: Unremarkable with no suspicious mass. No ductal dilation. Spleen: The spleen is not enlarged. No suspicious mass is noted. Adrenal glands: Normal. No mass. Kidneys and ureters: Few small kidney stones again seen. Bilateral renal hypodense and complex cystic lesions and other mass lesions again seen. One on the left posterior kidney today measures 6 cm, previously about 6.6 cm. No appreciable growth. The right proximal ureter contains a 6 mm calculus. There is mild right hydronephrosis. Stomach and bowel: Fecal filled colon. No small bowel dilation. At least mild left colon diverticulosis. Appendix: No evidence of appendicitis. Intraperitoneal space: Unremarkable. No free air. No suspicious fluid collection. Vasculature: Advanced diffuse vascular calcification noted. Lymph nodes: No enlarged lymph nodes. Urinary bladder: Unremarkable as visualized. Reproductive: Coarse prostatic calcifications. Bones/joints: Mild spine DJD. Very large pannus hangs off the film edge. Soft tissues: Redemonstrated fat containing umbilical hernia measuring approximately 7 x 6 x 9 cm with adjacent periumbilical superficial soft tissue edema versus cellulitis/panniculitis. CT/CT kidney stone [id number] IMPRESSION: 1. From 01/04/2023, no significant change. 2. No small bowel obstruction, abscess or free air. 3. Unchanged right proximal ureteral calculus causing no significant obstruction. Other tiny kidney stones, chronic renal lesions, etc. 4. Redemonstrated fat containing umbilical hernia with adjacent periumbilical superficial soft tissue edema versus cellulitis/panniculitis. COMMENTS: Consistent with the [employer] [place] [employer]'s Incidental Findings Committee white paper (J Am Frances Radiol 2018): Any incidental renal lesion less than 1 cm or classified as too small to characterize, or any incidental cystic renal lesion characterized as simple-appearing, is likely benign. No follow-up imaging is recommended for these lesions per consensus recommendations based on imaging criteria.
[2023-03-02] MEDS: meropenem 1,000 MG in sodium chloride 0.9% (plus) 50 ML 100 MG IV ×3 (02:43→21:43)
--- NOTE | 2023-03-02 04:02 | PM.HP ---
Providers/Chief Complaint Admitting Physician: Micheline Carey MD Primary Care Provider: ALTAF Russell Chief Complaint: blood in urine low back pain History of Present Illness Ry Loyd is a 67 year old male with past medical history of chronic recurrent UTI with ESBL presented to the hospital today for complaint of hematuria and flank pain. Patient's states that patient has a history of kidney stones and in fact has had acute cholecystitis in the last few weeks. Last time he was admitted he was placed on antibiotics and sent home for a planned procedure. Scheduled for tomorrow morning with Dr. English for cholecystectomy electively. Earlier today he had sudden onset of pain on his right side and had gross hematuria. At this point in the ER the pain has resolved. Patient also complains of burning urination. Does have mild lower extremity edema. No other symptoms at this time. is at bedside. He did see infectious disease specialist Dr. Church as an outpatient recently and it was decided to continue the fosfomycin until cholecystectomy is done. On arrival to ER blood pressure 145/83, respiratory 20, pulse 74, temperature 97.6, saturating 99% on room air. Lactate 1.7, potassium 4.4, sodium 139, creatinine 1.0, AST 17, ALT 18, total protein 6.9. WBC 11.4, hemoglobin 11.7, RDW 21.3, platelet 291. UA positive for 2+ leukocyte esterase, WBC greater than 100, 4+ bacteria, 3+ blood, cloudy appearing urine. CT abdomen pelvis shows few small kidney stones again seen, bilateral renal hypodense and complex cystic lesions and other mass lesions again seen more on the posterior kidney measuring 6 cm Patient reports. The right proximal ureter contains a 6 mm calculus there is mild right hydronephrosis. Urology was consulted from the ER. Medications/Allergies Home Medications Medication Instructions Recorded Confirmed Last Taken Type citalopram 10 mg tablet (Celexa) 10 mg PO QAM 12/03/19 03/01/23 01/04/23 History pantoprazole 40 mg tablet,delayed 40 mg PO DAILY@06 12/25/19 03/01/23 01/04/23 History release (Protonix) potassium chloride 20 mEq 20 meq PO DAILY 12/25/19 03/01/23 01/04/23 History tablet,extended release aspirin 81 mg tablet,delayed 81 mg PO BEDTIME 10/10/20 03/01/23 01/03/23 History release atorvastatin 40 mg tablet 40 mg PO DAILY@19 02/17/21 03/01/23 01/03/23 History Lactobacillus acidophilus 20 20,000 mmu cells PO BEDTIME 07/12/21 03/01/23 01/03/23 History billion cell capsule (Florajen Acidophilus) insulin glargine 100 unit/mL (3 25 unit SUBCUT BID 07/12/21 03/01/23 01/04/23 History mL) subcutaneous pen (Lantus Solostar U-100 Insulin) vit no.95-ferrous 1 tab PO DAILY@07/12/21 03/01/23 01/04/23 History fumarate 28 mg-folic acid 800 mcg tablet ( Multivitamins) acetaminophen 500 mg tablet 500 mg PO Q6H PRN Pain 12/29/21 03/01/23 12/22/22 History ascorbic acid (vitamin C) 500 mg 500 mg PO QPM 07/13/22 03/01/23 01/03/23 History tablet (Vitamin C) nitroglycerin 0.4 mg sublingual 0.4 mg sublingual Q5M PRN Chest 07/13/22 03/01/23 12/22/22 History tablet (Nitrostat) Pain cholecalciferol (vitamin D3) 125 125 mcg PO QAM 11/04/22 03/01/23 01/04/23 History mcg (5,000 unit) tablet (Vitamin D3) warfarin 1 mg tablet 6 mg PO QPM 11/04/22 03/01/23 02/23/23 History fosfomycin tromethamine 3 gram 3 g PO Q3D chronic suppression for 11/06/22 03/01/23 01/02/23 Rx oral packet UTI 3 months #30 ea hydroxyzine pamoate 25 mg capsule 25 mg PO BID 12/15/22 03/01/23 01/04/23 History bumetanide 2 mg tablet 1 mg PO DAILY #60 tabs 12/23/22 03/01/23 01/04/23 Rx prednisone 5 mg tablet 10 mg PO QAM 01/04/23 03/01/23 01/04/23 History amoxicillin 875 mg-potassium 1 tab PO BID 14 days #28 tabs 01/25/23 03/01/23 Unknown Rx clavulanate 125 mg tablet carvedilol 6.25 mg tablet 6.25 mg PO BID 02/08/23 03/01/23 Unknown History Allergies Allergy/AdvReac Type Severity Reaction Status Date / Time ceftriaxone [From Rocephin] Allergy Intermediate ALGY-Difficulty Verified 02/13/23 13:03 Breathing levofloxacin [From Levaquin] Allergy Mild ADR-Itching Verified 02/13/23 13:03 iodine Allergy Unknown Unknown Verified 02/13/23 13:03 Pork/Porcine Containing Allergy gout Verified 02/13/23 13:03 Products clopidogrel [From Plavix] AdvReac Intermediate Unknown Verified 02/13/23 13:03 PFSH Acute PFSH: Medical History (Updated 03/02/23 @ 02:35 by Deion Thompson MD) Acute cystitis Altered mental status Aortic stenosis Had TAVR replacement 2017 Atrial fibrillation Atrial fibrillation with slow ventricular response Bilateral renal masses CHF (congestive heart failure) EF 45 by transesophageal echo January 2019 Chronic antibiotic suppression Chronic anticoagulation coumadin Chronic urinary tract infection, suppressed Chronic use of steroids Complex renal cyst Congestive heart failure CVA (cerebral vascular accident) Dementia Diabetes Dyslipidemia Endocarditis history of chronic viridans endocarditis, 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 Essential hypertension Gout High risk medication use arava and chronic steroids 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 Hx of [place] spotted fever Ischemic cardiomyopathy Left ventricular hypertrophy Liver cirrhosis Obesity AJAY (obstructive sleep apnea) Pre-syncope Pulmonary HTN Pyelonephritis of right kidney Recurrent UTI Multidrug-resistant organisms Renal calculi Restrictive lung disease Rheumatoid arthritis Rheumatoid arthritis Shoulder pain Skin lesion Syncope Syncope and collapse Thalassemia Urinary tract infection due to ESBL Klebsiella Surgical History H/O lithotripsy S/P TAVR (transcatheter aortic valve replacement) (~2017) Family History Mother Stroke Father Myocardial infarction Other CAD (coronary artery disease) Chronic kidney disease (CKD) Diabetes Hypertension Social History Smoking and tobacco status: former smoker Quit status (tobacco): has quit using tobacco Year quit tobacco: 2019 - Chewing Tobacco Former quit date comment: Hx of 1/2 can x 50 Years Second hand smoke exposure: No Alcohol intake: former Lives independently: No Household members: spouse Marital status: Current occupational status: retired and disabled Current gender identity: Male Vitals/I&O/Wt Last Vital Signs Temp 97.6 F 03/01/23 20:34 Pulse 73 03/02/23 00:07 Resp 16 03/02/23 00:44 BP 124/67 03/02/23 00:44 Pulse Ox 100 03/02/23 00:44 O2 Del Method Room Air 03/02/23 00:07 Weight last 48 hrs Weight 112.037 kg Physical Exam Narrative: Patient is awake and alert Pleasant cooperative laying in bed comfortable at this time. soft non tender abdomen trace edema b/l le no flank tenderness present at this time s1s2 saturating 100% on room air Data 03/01/23 21:01 03/01/23 21:01 A&P Assessment and plan (1) Recurrent UTI: (2) Nephrolithiasis: (3) Diabetes: (4) Atrial fibrillation: (5) Chronic anticoagulation: (6) Aortic stenosis: (7) Body mass index [BMI] 38.0-38.9, adult: (8) Acute cystitis: (9) UTI (urinary tract infection): (10) Cholecystitis: Plan #UTI #Urolithiasis #Planned cholecystectomy in AM previously planned #Afib, rate controlled #Chronic AC however held for surgery #Chronic UTI on chronic suppresion #Hx of ESBL UTi #Pulmonary HTN #HTN #Gout #Liver cirhossis #RA #Chronic CHF with reduced EF - Urology consulted from ER. - CT abd showed urolithiasis - Place on meropenem q8H - Check urine culture as uA is positive - Check Bcx - Monitor for fever - Continue bumex, coreg, protonix, - SSI mod intensity - lantus 25 units daily. - Cardiac consistent carb diet - continue aspirin, atorvastatain, citalopram - Await urological recs - Will have to hold off on cholecystectomy in AM due to active UTI - All questions answered - Vitals q4 hours - Monitor CBC, CMP in AM - Follow results of cultures Full Code SCDS, Heparin Subq BID Attestations Medical Necessity Statement*: > 2 midnight stay for management of UTI Other Coding Information Focused coding review requested Diagnoses Recurrent UTI N39.0 Nephrolithiasis N20.0 Diabetes E11.9 Atrial fibrillation I48.91 Chronic anticoagulation Z79.01 Aortic stenosis I35.0 Body mass index [BMI] 38.0-38.9, adult Z68.38 Acute cystitis N30.00 UTI (urinary tract infection) N39.0 Cholecystitis K81.9
[2023-03-02 05:05] LABS: Lactic Sepsis W/Reflex 1.3 mmol/L (0.5-2.2)
[2023-03-02 05:09] LABS: INR 1.22 (0.8-1.2)
[2023-03-02 05:12] LABS: Procalcitonin 0.09 ng/mL (0-0.5)
--- NOTE | 2023-03-02 06:25 | ECG_ITS ---
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 Measurements Intervals Lolita Rate: 121 P: 0 RI: 0 QRS: -27 QRSD: 109 T: 153 QT: 294 QTc: 419 Interpretive Statements ATRIAL FIBRILLATION WITH RAPID VENTRICULAR RESPONSE BORDERLINE LEFT AXIS DEVIATION [QRS AXIS < -20] ST DEVIATION AND MODERATE T-WAVE ABNORMALITY, CONSIDER LATERAL ISCHEMIA [-0.1+ mV T-WAVE IN I/aVL/V5/V6] Compared to ECG 01/13/2023 21:07:02 Possible ischemia now present T-wave abnormality still present Electronically Signed On 03-02-2023 21:11:37 CDT by Layla Cazares M.D. [email or web address]
--- NOTE | 2023-03-02 06:25 | XR_ITS ---
WS: [id number] EXAMINATION: XR KUB [id number] REASON FOR EXAM: Preop ESWL right proximal ureter COMPARISON: Previous study ORDER DATE: 03/02/2023 6:25 AM FINDINGS: There is a nonspecific colonic gas pattern with scattered fecal content and gas. There are numerous loops of small bowel dilation extensive vascular calcifications noted in the pelvis XR/XR KUB [id number] IMPRESSION: Previous study demonstrated a right renal calculus which is not clearly delinea anam on the current study perhaps due to motion artifact and the bowel pattern w hich is suggesting developing ileus..
[2023-03-02 06:43] LABS: Glucose Point of Care 138 mg/dL (70-110)
[2023-03-02] MEDS: bumetanide 1 mg Tablet PO (09:46)
[2023-03-02] MEDS: carvedilol 6.25 mg Tablet PO (09:46)
[2023-03-02] MEDS: predniSONE 10 mg Tablet PO (09:46)
[2023-03-02] MEDS: pantoprazole DR 40 mg Tablet PO (09:46)
[2023-03-02] MEDS: ipratropium-albuterol 3 mL Neb INHALATION (10:58)
[2023-03-02] MEDS: ondansetron 2 mg/ML SDV 2 mL 4 MG IVP (11:23)
[2023-03-02] MEDS: acetaminophen 325 mg Tablet 650 MG PO (11:38)
--- NOTE | 2023-03-02 12:09 | P.CONIM_ITS ---
Providers/Reason For Consult Consulting Physician/Specialty*: Urology/follow-up Reason for Consult*: Right UPJ stone with obstruction and UTI Requesting Physician: Dr. Carey Attending Physician: Leodan Gay MD Primary Care Provider: ALTAF Russell History of Present Illness History of Present Illness Ry Loyd is a 67 year old male well-known to me for history of recurrent refractory UTIs as well as urolithiasis. He has many health problems including fairly recent diagnosis of acute cholecystitis leading to plans for cholecystectomy but was canceled after the patient had a panic attack shortly be fore the procedure. Around that same time he was diagnosed as having an obstructing, partially obstructing, right UPJ stone without evidence of septic complications from his chronic UTIs. Ultimately plans were made to proceed with a cystoscopy stent placement probable ureteroscopy laser lithotripsy of the right proximal ureteral stone and in combination under the same anesthesia a cholecystectomy by Dr. English. That was actually scheduled for today. He presented to the emergency department yesterday with gross hematuria increasing flank pain and was found to have evidence of an active infection although no sepsis. Stone was still present with the same position on CT scan. His surgery was postponed due to the new onset of symptoms and concern for infection risks. He is feeling better currently. Denies fever or chills. Still having some malaise and some mild pain. Findings were reviewed in detail with the patient and his . She makes most of his decisions due to his debilitated state Review of Systems Narrative: No fever or chills Positive for abdominal pain Blood in urine Confusion at baseline poor mentation with some exacerbation with this episode Medications/Allergies Home Medications Medication Instructions Recorded Confirmed Last Taken Type citalopram 10 mg tablet (Celexa) 10 mg PO QAM 12/03/19 03/02/23 03/01/23 History pantoprazole 40 mg tablet,delayed 40 mg PO DAILY@06 12/25/19 03/02/23 03/01/23 History release (Protonix) potassium chloride 20 mEq 20 meq PO DAILY 12/25/19 03/02/23 03/01/23 History tablet,extended release aspirin 81 mg tablet,delayed 81 mg PO BEDTIME 10/10/20 03/02/23 03/01/23 History release atorvastatin 40 mg tablet 40 mg PO DAILY@02/17/21 03/02/2303/01/23 History Lactobacillus acidophilus 20 20,000 mmu cells PO BEDTIME 07/12/21 03/02/23 03/01/23 History billion cell capsule (Florajen Acidophilus) insulin glargine 100 unit/mL (3 25 unit SUBCUT BID 07/12/21 03/02/23 03/01/23 History mL) subcutaneous pen (Lantus Solostar U-100 Insulin) vit no.95-ferrous 1 tab PO DAILY@06 07/12/21 03/02/23 03/01/23 History fumarate 28 mg-folic acid 800 mcg tablet ( Multivitamins) acetaminophen 500 mg tablet 500 mg PO Q6H PRN Pain 12/29/21 03/02/23 03/02/23 History ascorbic acid (vitamin C) 500 mg 500 mg PO QPM 07/13/22 03/02/23 03/01/23 History tablet (Vitamin C) nitroglycerin 0.4 mg sublingual 0.4 mg sublingual Q5M PRN Chest 07/13/22 03/02/23 12/22/22 History tablet (Nitrostat) Pain cholecalciferol (vitamin D3) 125 125 mcg PO QAM 11/04/22 03/02/23 01/04/23 History mcg (5,000 unit) tablet (Vitamin D3) warfarin 1 mg tablet 6 mg PO QPM 11/04/22 03/02/23 02/23/23 History fosfomycin tromethamine 3 gram 3 g PO Q3D chronic suppression for 11/06/22 03/02/23 03/01/23 Rx oral packet UTI 3 months #30 ea hydroxyzine pamoate 25 mg capsule 25 mg PO BID 12/15/22 03/02/23 03/01/23 History bumetanide 2 mg tablet 1 mg PO DAILY #60 tabs 12/23/22 03/02/23 03/01/23 Rx prednisone 5 mg tablet 10 mg PO QAM 01/04/23 03/02/23 03/01/23 History amoxicillin 875 mg-potassium 1 tab PO BID 14 days #28 tabs 01/25/23 03/02/23 03/01/23 Rx clavulanate 125 mg tablet carvedilol 6.25 mg tablet 6.25 mg PO BID 02/08/23 03/02/2303/01/23 History Allergies Allergy/AdvReac Type Severity Reaction Status Date / Time ceftriaxone [From Rocephin] Allergy Intermediate ALGY-Difficulty Verified 03/02/23 06:42 Breathing levofloxacin [From Levaquin] Allergy Mild ADR-Itching Verified 03/02/23 06:42 iodine Allergy Unknown Unknown Verified 03/02/23 06:42 Pork/Porcine Containing Allergy gout Verified 03/02/23 06:42 Products clopidogrel [From Plavix] AdvReac Intermediate Unknown Verified 03/02/23 06:42 Current Medications Generic Name Dose Route Start Last Admin Trade Name Freq PRN Reason Stop Dose Admin Acetaminophen 650 mg 03/02/23 04:37 03/02/23 11:38 Acetaminophen 325 Mg Tablet PO 650 mg Q6H PRN Administration Mild/Mod Pain Or Temp >/= 101 Albuterol/Ipratropium 3 ml 03/02/23 04:37 03/02/23 10:58 Ipratropium-Albuterol 3 Ml Neb INHALATION 3 ml Q6H.RESP PRN Administration SHORTNESS OF BREATH Bumetanide 1 mg 03/02/23 09:00 03/02/23 09:46 Bumetanide 1 Mg Tablet PO 1 mg DAILY PADMAJA Administration Carvedilol 6.25 mg 03/02/23 09:00 03/02/23 09:46 Carvedilol 6.25 Mg Tablet PO 6.25 mg BID PADMAJA Administration Meropenem 1,000 mg/ Sodium 50 mls @ 100 mls/hr 03/02/23 11:00 03/02/23 11:58 Chloride IV Infused Q8H PADMAJA Infusion Protocol Ondansetron HCl 4 mg 03/02/23 04:37 03/02/23 11:23 Ondansetron 2 Mg/Ml Sdv 2 Ml IVP 4 mg Q8H PRN Administration vomiting, or N/V if npo Pantoprazole Sodium 40 mg 03/02/23 08:23 03/02/23 09:[address] 40 Mg Tablet PO 40 mg DAILY@06 PADMAJA Administration PFSH Acute PFSH: Medical History Acute cystitis Altered mental status Aortic stenosis Had TAVR replacement 2018 Atrial fibrillation Atrial fibrillation with slow ventricular response Bilateral renal masses CHF (congestive heart failure) EF 45 by transesophageal echo January 2019 Chronic antibiotic suppression Chronic anticoagulation coumadin Chronic cystitis Chronic urinary tract infection, suppressed Chronic use of steroids Complex renal cyst Congestive heart failure CVA (cerebral vascular accident) Dementia Diabetes Dyslipidemia Endocarditis history of chronic viridans endocarditis, 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 Essential hypertension Gout High risk medication use arava and chronic steroids 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 Hx of [place] spotted fever Ischemic cardiomyopathy Left ventricular hypertrophy Liver cirrhosis Obesity AJAY (obstructive sleep apnea) Pre-syncope Pulmonary HTN Pyelonephritis of right kidney Recurrent UTI Multidrug-resistant organisms Renal calculi Restrictive lung disease Rheumatoid arthritis Rheumatoid arthritis Shoulder pain Skin lesion Syncope Syncope and collapse Thalassemia Urinary tract infection due to ESBL Klebsiella Surgical History H/O lithotripsy S/P TAVR (transcatheter aortic valve replacement) (~2017) Family History Mother Stroke Father Myocardial infarction Other CAD (coronary artery disease) Chronic kidney disease (CKD) Diabetes Hypertension Social History Smoking and tobacco status: former smoker Quit status (tobacco): has quit using tobacco Year quit tobacco: 2019 - Chewing Tobacco Former quit date comment: Hx of 1/2 can x 50 Years Second hand smoke exposure: No Alcohol intake: former Lives independently: No Household members: spouse Marital status: Current occupational status: retired and disabled Current gender identity: Male Vitals/I&O/Wt Last Vital Signs Temp 98.2 F 03/02/23 08:00 Pulse 91 03/02/23 11:01 Resp 18 03/02/23 10:58 BP 180/83 03/02/23 08:00 Pulse Ox 96 03/02/23 10:59 O2 Del Method Nasal Cannula 03/02/23 10:59 O2 Flow Rate 2 03/02/23 10:59 03/01/23 03/02/23 03/02/23 22:59 06:59 14:59 Intake Total 50 / 50 50 / 50 Balance 50 / 50 50 / 50 Weight last 48 hrs Weight 247 lb Weight 247 lb Physical Exam Const: COMMON NORMALS: negative for patient oriented x3 and negative for healthy appearing OTHER: Alert HENMT: OTHER: Atraumatic Neck/C-Spine: OTHER: Good range of motion Chest: OTHER: Normal chest movements : OTHER: No CVA tenderness Neuro: COMMON NORMALS: negative for patient oriented x3 Psych: THOUGHT CONTENT: No Normal thought content present INSIGHT: Limited insight present (Psych) JUDGEMENT: Limited judgement present (Psych) Data 03/02/23 12:13 03/02/23 12:13 Micro: Microbiology 03/02/23 04:09 Blood Culture - Preliminary Blood SPECIMEN COLLECTED 03/02/23 04:00 Blood Culture - Preliminary Blood SPECIMEN COLLECTED A&P Assessment and plan (1) Right ureteral calculus: Right proximal ureteral stone appears unchanged in position. (2) Recurrent UTI: Agree with antibiotic treatment. Plan for attempt at stent placement at least and if possible endoscopic laser lithotripsy with improvement in infectious picture. (3) Chronic cystitis: Plan Start IV antibiotics. Consider proceeding with stent placement soon and if doing very well with good access consider flexible ureteroscopy possible laser lithotripsy after adequate short course of antibiotics to reduce the risk of infectious progression. Can convert to emergent stent placement or if necessary percutaneous nephrostomy tube placement. Consult Attestations Medical Necessity Statement: Increasing symptoms related to right proximal ureteral stone. Ongoing infection. Not septic. Coding Level of Care Code Acute Code for [facility] Diagnoses Right ureteral calculus N20.1 Recurrent UTI N39.0 Chronic cystitis N30.20
[2023-03-02] MEDS: hydrocortisone 100 mg/2 mL SDV 50 MG IVP (12:22)
[2023-03-02] MEDS: vancomycin 1,500 MG/300 ML PIGGYBACK 200 MG IV ×2 (12:27→23:36)
[2023-03-02 12:30] LABS: Basophils % 0.4 %; Eosinophils # 0.1 10^3/uL (0.0-0.8); Eosinophils % 0.7 %; Hematocrit 36.9 % (42.0-52.0); Hemoglobin 10.8 g/dL (11.7-16.6); Lymphocytes # 0.4 10^3/uL (0.8-4.8); Lymphocytes % 3.5 %; Mean Corpuscular HGB Conc 29.3 g/dL (30.0-36.0); Mean Corpuscular Hemoglobin 16.4 pg (28.0-34.0); Monocytes # 0.5 10^3/uL (0.2-0.9); Monocytes % 4.3 %; Neutrophils # 10.09 10^3/uL (1.8-7.7); Neutrophils % 90.7 %; Nucleated Red Blood Cells % 0 %; Platelet Count 229 10^3/cmm (130-400); Red Blood Count 6.59 10^6/uL (4.1-5.3); Red Cell Distribution Width 20.6 % (12.1-15.1); White Blood Count 11.1 10^3/uL (4.0-10.0)
--- NOTE | 2023-03-02 12:38 | PC.PHAR ---
PHARMACY TO DOSE - VANCOMYCIN With the patient's current labs and vitals, his vancomycin dose was calculated at 1500mg every 12 hours with a predicted peak of 30.3 mcg/ml and trough of 12.85 mcg/ml. Will continue to monitor the patient's renal function and trough values. Please let us know if there is anything else we can help with. Thanks, Rj Sung, Pharm.D.
--- NOTE | 2023-03-02 12:42 | XR_ITS ---
WS: [id number] EXAMINATION: XR chest 1V portable [id number] REASON FOR EXAM: sob COMPARISON: 07/13/2023 ORDER DATE: 03/02/2023 12:49 PM TECHNIQUE: A single, portable frontal chest x-ray was obtained. X-RAY FINDINGS: There is pulmonary vascular congestion. Increased irregular 20 mm right hilar density is noted. There is TAVR noted with atherosclerotic aortic change. There is a small left pleural effusion. Soft tissu e and osseous structures are unremarkable. No tubes or lines are present. XR/XR chest 1V portable [id number] IMPRESSION: Early CHF with left pleural effusion. Follow-up studies until resolution recomm ended in order to exclude a right hilar mass which may require CT imaging if th is persists.
[2023-03-02 12:47] LABS: Alanine Aminotransferase 14 U/L (0-41); Albumin Level 3.1 g/dL (3.5-5.2); Alkaline Phosphatase 56 U/L (40-130); Anion Gap 13.5 (5-19); Aspartate Amino Transferase 14 U/L (0-40); Blood Urea Nitrogen 25 mg/dL (8-23); Carbon Dioxide 27 mmol/L (22-29); Chloride 105 mmol/L (98-107); Globulin 2.9 g/dL (1.3-4.6); Glomerular Filtration Rate 83.7 mL/min (90-130); Glucose 143 mg/dL (65-115); Osmolality Calculated 301 mOsm/kg (285-295); Potassium 3.5 mmol/L (3.5-5.1); Sodium 142 mmol/L (136-145); Total Bilirubin 1.2 mg/dL (0.15-1.2)
[2023-03-02 13:00] LABS: Cortisol Random 15.77 ug/dL (2.47-19.5)
[2023-03-02] MEDS: sodium chloride 0.9% 500 ML IV (13:14)
[2023-03-02] MEDS: heparin drip 25,000 UNIT/500 ML PREMIX 32 UNIT IV (13:15)
[2023-03-02 14:34] LABS: Glucose Point of Care 178 mg/dL (70-110)
[2023-03-02 17:03] LABS: Glucose Point of Care 237 mg/dL (70-110)
[2023-03-02] MEDS: insulin lispro 100 unit/1 mL SUBCUT ×2 (17:17→21:44)
[2023-03-02] MEDS: atorvastatin 40 mg Tablet PO (17:17)
--- NOTE | 2023-03-02 17:56 | PM.MISC ---
Miscellaneous Note Note: Overnight HPI vitals and labs have been reviewed. Patient is currently spiking temperature noted Tmax of 102.9, patient was also relatively hypotensive, received bolus 500 cc normal saline, was started on maintenance IV fluid at 75 cc an hour, in addition to meropenem vancomycin has been added. Urology and surgery on board.
--- NOTE | 2023-03-02 18:33 | P.CONIM_ITS ---
Providers/Reason For Consult Consulting Physician/Specialty*: Dr. Gary English, DO/General surgery Reason for Consult*: Symptomatic cholelithiasis Attending Physician: Leodan Gay MD Primary Care Provider: ALTAF Russell History of Present Illness History of Present Illness Ry Loyd is a 67 year old male who was supposed to undergo a joint procedure today with myself and urology where I was going to perform a laparoscopic cholecystectomy. He had acute cholecystitis in the past which was treated with antibiotics and he was supposed to receive an interval cholecystectomy today. However he woke up this morning with fever and chills and presented to the ER. He was diagnosed with a UTI. He has a history of ESBL. Denies any abdominal pain, nausea, emesis. Review of Systems General: Reports: 10 or more systems reviewed and unremarkable except in HPI and below Medications/Allergies Home Medications Medication Instructions Recorded Confirmed Last Taken Type citalopram 10 mg tablet (Celexa) 10 mg PO QAM 12/03/19 03/02/23 03/01/23 History pantoprazole 40 mg tablet,delayed 40 mg PO DAILY@06 12/25/19 03/02/23 03/01/23 History release (Protonix) potassium chloride 20 mEq 20 meq PO DAILY 12/25/19 03/02/23 03/01/23 History tablet,extended release aspirin 81 mg tablet,delayed 81 mg PO BEDTIME 10/10/20 03/02/23 03/01/23 History release atorvastatin 40 mg tablet 40 mg PO DAILY@19 02/17/21 03/02/23 03/01/23 History Lactobacillus acidophilus 20 20,000 mmu cells PO BEDTIME 07/12/21 03/02/23 03/01/23 History billion cell capsule (Florajen Acidophilus) insulin glargine 100 unit/mL (3 25 unit SUBCUT BID 07/12/21 03/02/23 03/01/23 History mL) subcutaneous pen (Lantus Solostar U-100 Insulin) vit no.95-ferrous 1 tab PO DAILY@06 07/12/21 03/02/23 03/01/23 History fumarate 28 mg-folic acid 800 mcg tablet ( Multivitamins) acetaminophen 500 mg tablet 500 mg PO Q6H PRN Pain 12/29/21 03/02/23 03/02/23 History ascorbic acid (vitamin C) 500 mg 500 mg PO QPM 07/13/22 03/02/23 03/01/23 History tablet (Vitamin C) nitroglycerin 0.4 mg sublingual 0.4 mg sublingual Q5M PRN Chest 07/13/22 03/02/23 12/22/22 History tablet (Nitrostat) Pain cholecalciferol (vitamin D3) 125 125 mcg PO QAM 11/04/22 03/02/23 01/04/23 History mcg (5,000 unit) tablet (Vitamin D3) warfarin 1 mg tablet 6 mg PO QPM 11/04/22 03/02/23 02/23/23 History fosfomycin tromethamine 3 gram 3 g PO Q3D chronic suppression for 11/06/22 03/02/23 03/01/23 Rx oral packet UTI 3 months #30 ea hydroxyzine pamoate 25 mg capsule 25 mg PO BID 12/15/22 03/02/23 03/01/23 History bumetanide 2 mg tablet 1 mg PO DAILY #60 tabs 12/23/22 03/02/23 03/01/23 Rx prednisone 5 mg tablet 10 mg PO QAM 01/04/23 03/02/23 03/01/23 History amoxicillin 875 mg-potassium 1 tab PO BID 14 days #28 tabs 01/25/23 03/02/23 03/01/23 Rx clavulanate 125 mg tablet carvedilol 6.25 mg tablet 6.25 mg PO BID 02/08/23 03/02/23 03/01/23 History Allergies Allergy/AdvReac Type Severity Reaction Status Date / Time ceftriaxone [From Rocephin] Allergy Intermediate ALGY-Difficulty Verified 03/02/23 06:42 Breathing levofloxacin [From Levaquin] Allergy Mild ADR-Itching Verified 03/02/23 06:42 iodine Allergy Unknown Unknown Verified 03/02/23 06:42 Pork/Porcine Containing Allergy gout Verified 03/02/23 06:42 Products clopidogrel [From Plavix] AdvReac Intermediate Unknown Verified 03/02/23 06:42 Current Medications Generic Name Dose Route Start Last Admin Trade Name Freq PRN Reason Stop Dose Admin Acetaminophen 650 mg 03/02/23 04:37 03/02/23 11:38 Acetaminophen 325 Mg Tablet PO 650 mg Q6H PRN Administration Mild/Mod Pain Or Temp >/= 101 Albuterol/Ipratropium 3 ml 03/02/23 04:37 03/02/23 10:58 Ipratropium-Albuterol 3 Ml Neb INHALATION 3 ml Q6H.RESP PRN Administration SHORTNESS OF BREATH Atorvastatin Calcium 40 mg 03/02/23 19:00 03/02/23 17:17 Atorvastatin 40 Mg Tablet PO 40 mg DAILY@19 PADMAJA Administration Carvedilol 6.25 mg 03/02/23 09:00 03/02/23 09:46 Carvedilol 6.25 Mg Tablet PO 6.25 mg BID PADMAJA Administration Hydrocortisone Sodium Succinate 50 mg 03/02/23 12:00 03/02/23 12:22 Hydrocortisone 100 Mg/2 Ml Sdv IVP 50 mg Q12H PADMAJA Administration Meropenem 1,000 mg/ Sodium 50 mls @ 100 mls/hr 03/02/23 11:00 03/02/23 11:58 Chloride IV Infused Q8H PADMAJA Infusion Protocol Heparin Sodium/Sodium Chloride 25,000 unit in 500 mls @ 0 mls/hr 03/02/23 10:45 03/02/23 13:15 Heparin Drip IV 14.28 unit/kg/hr .Q0M PADMAJA 32 mls/hr Administration Protocol Per Protocol Vancomycin/PEG/NADA/Lysine/Water 1,500 mg in 300 mls @ 200 mls/hr 03/02/23 12:30 03/02/23 13:14 Vancocin IV Infused Q12H PADMAJA Infusion Insulin Human Lispro 0 unit 03/02/23 18:00 03/02/23 17:17 Insulin Lispro 100 Unit/1 Ml SUBCUT 6 unit WM&BEDTIME PADMAJA Administration Protocol Ondansetron HCl 4 mg 03/02/23 04:37 03/02/23 11:23 Ondansetron 2 Mg/Ml Sdv 2 Ml IVP 4 mg Q8H PRN Administration vomiting, or N/V if npo Pantoprazole Sodium 40 mg 03/02/23 08:23 03/02/23 09:[address] 40 Mg Tablet PO 40 mg DAILY@06 PADMAJA Administration PFSH Acute PFSH: Medical History Acute cystitis Altered mental status Aortic stenosis Had TAVR replacement 2018 Atrial fibrillation Atrial fibrillation with slow ventricular response Bilateral renal masses CHF (congestive heart failure) EF 45 by transesophageal echo January 2019 Chronic antibiotic suppression Chronic anticoagulation coumadin Chronic cystitis Chronic urinary tract infection, suppressed Chronic use of steroids Complex renal cyst Congestive heart failure CVA (cerebral vascular accident) Dementia Diabetes Dyslipidemia Endocarditis history of chronic viridans endocarditis, 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 Essential hypertension Gout High risk medication use arava and chronic steroids 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 Hx of [place] spotted fever Ischemic cardiomyopathy Left ventricular hypertrophy Liver cirrhosis Obesity AJAY (obstructive sleep apnea) Pre-syncope Pulmonary HTN Pyelonephritis of right kidney Recurrent UTI Multidrug-resistant organisms Renal calculi Restrictive lung disease Rheumatoid arthritis Rheumatoid arthritis Shoulder pain Skin lesion Syncope Syncope and collapse Thalassemia Urinary tract infection due to ESBL Klebsiella Surgical History H/O lithotripsy S/P TAVR (transcatheter aortic valve replacement) (~2017) Family History Mother Stroke Father Myocardial infarction Other CAD (coronary artery disease) Chronic kidney disease (CKD) Diabetes Hypertension Social History Smoking and tobacco status: former smoker Quit status (tobacco): has quit using tobacco Year quit tobacco: 2019 - Chewing Tobacco Former quit date comment: Hx of 1/2 can x 50 Years Second hand smoke exposure: No Alcohol intake: former Lives independently: No Household members: spouse Marital status: Current occupational status: retired and disabled Current gender identity: Male Vitals/I&O/Wt Last Vital Signs Temp 100.2 F H 03/02/23 16:00 Pulse 91 03/02/23 16:00 Resp 16 03/02/23 16:00 BP 98/64 03/02/23 16:00 Pulse Ox 94 03/02/23 16:00 O2 Del Method Nasal Cannula 03/02/23 10:59 O2 Flow Rate 2 03/02/23 10:59 03/02/23 03/02/23 03/02/23 06:59 14:59 22:59 Intake Total 50 / 50 850 / 850 Balance 50 / 50 850 / 850 Weight last 48 hrs Weight 247 lb Weight 247 lb Physical Exam Narrative: General : Patient is well developed , no acute distress, oriented x3 Head : Normal cephalic, a-traumatic. Ears : Pinnae and external canal are normal. Hearing is normal. Eyes : PERRLA, Sclera and injection are normal. No conjunctival discharge. Nose : Mucous membranes are without erythema. Throat : buccal mucosa is normal, gums are without significant recession or hypertrophy. Lungs : Equal chest rise bilaterally, no use of accessory muscles, trachea is midline. Cor : Rate and rhythm are normal. Abdomen : Soft, ND, NT, no g/r/m Extremities : No edema, no cyanosis or clubbing, dorsalis pedis pulses are prese nt bilaterally, non-tender to palpation of calves. Upper extremities are normal bilaterally. Back : non-tender to palpation, no CVA tenderness. Neuro : CN II - XII intact, Upper and lower extremities have equal and full strength Data 03/02/23 12:13 03/02/23 12:13 Micro: Microbiology 03/02/23 04:09 Blood Culture - Preliminary Blood SPECIMEN COLLECTED 03/02/23 04:00 Blood Culture - Preliminary Blood SPECIMEN COLLECTED A&P Assessment and plan (1) Cholecystitis: (2) UTI (urinary tract infection): Plan Medical management per hospitalist Hopefully he can undergo laparoscopic cholecystectomy prior to discharge. He has been holding his Coumadin Notably he has been on Augmentin while at home Coding Level of Care Code Acute Code for [facility] Diagnoses Cholecystitis K81.9 UTI (urinary tract infection) N39.0
[2023-03-02 19:37] LABS: Partial Thromboplastin Time 80.4 SECONDS (23.9-36.7)
[2023-03-02 21:16] LABS: Glucose Point of Care 289 mg/dL (70-110)
[2023-03-02] MEDS: aspirin 81 mg EC Tablet PO (21:44)
[2023-03-02] MEDS: insulin glargine 100 units/1 mL 25 UNIT SUBCUT (23:06)
[2023-03-03] VITALS (10 sets, daily range): BP systolic 132–168; BP diastolic 68–91; PULSE 66–95; RESP 15–18; TEMP 36.1–36.9; O2SAT 95–99; BMI 35.7
[2023-03-03] MEDS: hydrocortisone 100 mg/2 mL SDV 50 MG IVP ×2 (00:08→12:34)
[2023-03-03 01:51] LABS: Basophils # 0.1 10^3/uL (0.0-0.1); Basophils % 0.4 %; Eosinophils % 0.1 %; Hemoglobin 9.8 g/dL (11.7-16.6); Lymphocytes # 1.4 10^3/uL (0.8-4.8); Lymphocytes % 9.2 %; Mean Corpuscular HGB Conc 28.8 g/dL (30.0-36.0); Mean Corpuscular Hemoglobin 16.6 pg (28.0-34.0); Mean Corpuscular Volume 57.5 fl (80-94); Monocytes # 0.9 10^3/uL (0.2-0.9); Monocytes % 5.7 %; Neutrophils # 12.94 10^3/uL (1.8-7.7); Neutrophils % 84.2 %; Nucleated Red Blood Cells % 0 %; Platelet Count 203 10^3/cmm (130-400); Red Blood Count 5.91 10^6/uL (4.1-5.3); Red Cell Distribution Width 20.5 % (12.1-15.1); White Blood Count 15.4 10^3/uL (4.0-10.0)
[2023-03-03 01:56] LABS: Mean Platelet Volume 9.3 fL (7.4-10.4)
[2023-03-03 02:18] LABS: Cortisol Random 44.52 ug/dL (2.47-19.5)
[2023-03-03 02:31] LABS: Alanine Aminotransferase 13 U/L (0-41); Alkaline Phosphatase 48 U/L (40-130); Aspartate Amino Transferase 21 U/L (0-40); Blood Urea Nitrogen 23 mg/dL (8-23); Calcium 8.3 mg/dL (8.5-10.5); Carbon Dioxide 23 mmol/L (22-29); Chloride 106 mmol/L (98-107); Globulin 2.4 g/dL (1.3-4.6); Glomerular Filtration Rate 74.1 mL/min (90-130); Glucose 150 mg/dL (65-115); Osmolality Calculated 301 mOsm/kg (285-295); Sodium 142 mmol/L (136-145); Total Bilirubin 0.7 mg/dL (0.15-1.2); Total Protein 5.4 g/dL (6.6-8.7)
[2023-03-03 02:33] LABS: Anion Gap 17.2 (5-19); Potassium 4.2 mmol/L (3.5-5.1)
[2023-03-03 02:39] LABS: Partial Thromboplastin Time 75.8 SECONDS (23.9-36.7)
[2023-03-03] MEDS: meropenem 1,000 MG in sodium chloride 0.9% (plus) 50 ML 100 MG IV ×3 (03:09→20:26)
[2023-03-03] MEDS: heparin drip 25,000 UNIT/500 ML PREMIX 28 UNIT IV ×2 (05:51→23:42)
[2023-03-03] MEDS: sodium chloride 0.9% 1,000 ML 75 ML IV (05:56)
[2023-03-03] MEDS: pantoprazole DR 40 mg Tablet PO (05:56)
[2023-03-03 06:56] LABS: Glucose Point of Care 157 mg/dL (70-110)
[2023-03-03] MEDS: bumetanide 0.25 mg/mL SDV 10 mL 2 MG IVP (07:25)
[2023-03-03 09:23] LABS: Partial Thromboplastin Time 67.9 SECONDS (23.9-36.7)
--- NOTE | 2023-03-03 10:38 | PM.PN ---
Subjective Subjective: Urology follow-up: Feeling better. Less pain. was not available at the time I rounded on him. White count has increased from 11.1-15.4. No other acute changes. Medications: Reviewed: Yes Medication Review Details: On aspirin and heparin. Vitals/I&O/Wt Last Vital Signs Temp 97.7 F 03/03/23 04:00 Pulse 67 03/03/23 08:35 Resp 16 03/03/23 08:35 BP 138/76 03/03/23 04:00 Pulse Ox 99 03/03/23 08:35 O2 Del Method Nasal Cannula 03/03/23 08:35 O2 Flow Rate 2 03/03/23 08:35 03/02/23 03/03/23 03/03/23 22:59 06:59 14:59 Intake Total 259.067 / 1109.067 640.933 / 1750.000 Balance 259.067 / 1109.067 640.933 / 1750.000 Weight last 48 hrs Weight 256 lb 9 oz Weight 247 lb Weight 247 lb Physical Exam Const: COMMON NORMALS: negative for patient oriented x3 OTHER: Alert HENMT: OTHER: Atraumatic Neck/C-Spine: OTHER: Good range of motion Chest: OTHER: Normal chest movements Resp: OTHER: No audible wheezes : OTHER: No CVA tenderness, bladder nonpalpable Neuro: COMMON NORMALS: negative for patient oriented x3 Psych: MOOD & AFFECT: Yes euthymic mood THOUGHT CONTENT: No Normal thought content present INSIGHT: Limited insight present (Psych) JUDGEMENT: Limited judgement present (Psych) Data 03/03/23 01:42 03/03/23 01:42 Micro: Microbiology 03/02/23 04:00 Blood Culture - Preliminary Blood NEGATIVE TO DATE 03/02/23 04:09 Blood Culture - Preliminary Blood A&P Assessment and plan (1) Right ureteral calculus: Right proximal ureteral stone with chronic mild obstruction. Scheduled intervention postponed due to recurrent UTI symptoms. Tentative plans for stent and/or ureteroscopic laser lithotripsy next week (2) Recurrent UTI: (3) Chronic anticoagulation: Plan We will discuss more with . Try to make some arrangements for early next week Focus will be primarily on stent placement but if capable and access to the stone is obtainable then ureteroscopic laser lithotripsy Attestations Medical Necessity Statement*: See attending Coding Level of Care Code Acute Code for [facility] Diagnoses Right ureteral calculus N20.1 Recurrent UTI N39.0 Chronic anticoagulation Z79.01
[2023-03-03 11:38] LABS: Glucose Point of Care 141 mg/dL (70-110)
[2023-03-03] MEDS: vancomycin 1,500 MG/300 ML PIGGYBACK 200 MG IV (12:35)
--- NOTE | 2023-03-03 15:08 | P.PN_ITS ---
Subjective Subjective: Patient was seen and examined this morning, blood pressure is better controlled, shortness of breath is improved.Unfortunately white blood cell count has trended up. Medications: Reviewed: Yes Medication Review Details: Generic Name Dose Route Start Last Admin Trade Name Freq PRN Reason Stop Dose Admin Acetaminophen 650 mg 03/02/23 04:37 03/02/23 11:38 Acetaminophen 32 5 Mg Tablet PO 650 mg Q6H PRN Administration Mild/Mod Pain Or Temp >/= 101 Albuterol/Ipratrop ium 3 ml 03/02/23 04:37 03/02/23 10:58 Ipratropium-Albu terol 3 Ml Neb INHALATION 3 ml Q6H.RESP PRN Administration SHORTNESS OF EZ TH Aspirin 81 mg 03/02/23 21:00 03/02/23 21:44 Aspirin 81 Mg Ec Tablet PO 81 mg BEDTIME PADMAJA Administration Atorvastatin Calci um 40 mg 03/02/23 19:00 03/02/23 17:17 Atorvastatin 40 Mg Tablet PO 40 mg DAILY@19 PADMAJA Administration Bumetanide 2 mg 03/03/23 07:00 03/03/23 07:25 Bumetanide 0.25 Mg/Ml Sdv 10 Ml IVP 2 mg Q24H PADMAJA Administration Carvedilol 6.25 mg 03/02/23 09:00 03/02/23 09:46 Carvedilol 6.25 Mg Tablet PO 6.25 mg BID PADMAJA Administration Hydrocortisone Sod ium Succinate 50 mg 03/02/23 12:00 03/03/23 12:34 Hydrocortisone 1 00 Mg/2 Ml Sdv IVP 50 mg Q12H PADMAJA Administration Meropenem 1,000 mg / Sodium 50 mls @ 100 mls/ hr 03/02/23 11:00 03/03/23 13:09 Chloride IV Infused Q8H PADMAJA Infusion Protocol Heparin Sodium/Sod ium Chloride 25,000 unit in 50 0 mls @ 0 mls/hr 03/02/23 10:45 03/03/23 05:51 Heparin Drip IV 12.5 unit/kg/hr .Q0M PADMAJA 28 mls/hr Administration Protocol Per Protocol Vancomycin/PEG/NAD A/Lysine/Water 1,500 mg in 300 m ls @ 200 mls/hr 03/02/23 12:30 03/03/23 12:35 Vancocin IV 200 mls/hr Q12H PADMAJA Administration Insulin Glargine 25 unit 03/02/23 21:00 03/02/23 23:06 Insulin Glargine 100 Units/1 Ml SUBCUT 25 unit BEDTIME PADMAJA Administration Insulin Human Lisp ro 0 unit 03/02/23 18:00 03/03/23 12:01 Insulin Lispro 1 00 Unit/1 Ml SUBCUT Not Given WM&BEDTIME PADMAJA Protocol Ondansetron HCl 4 mg 03/02/23 04:37 03/02/23 11:23 Ondansetron 2 Mg /Ml Sdv 2 Ml IVP 4 mg Q8H PRN Administration vomiting, or N/V if npo Pantoprazole Sodiu m 40 mg 03/02/23 08:23 03/03/23 05:[address] 40 Mg Tablet PO 40 mg DAILY@06 PADMAJA Administration Vitals/I&O/Wt Last Vital Signs Temp 98 F 03/03/23 08:00 Pulse 67 03/03/23 08:35 Resp 16 03/03/23 08:35 BP 156/82 03/03/23 08:00 Pulse Ox 99 03/03/23 08:35 O2 Del Method Nasal Cannula 03/03/23 08:35 O2 Flow Rate 2 03/03/23 08:35 03/03/23 03/03/23 03/03/23 06:59 14:59 22:59 Intake Total 640.933 / 1750.000 50 / 50 Balance 640.933 / 1750.000 50 / 50 Weight last 48 hrs Weight 116.375 kg Weight 112.037 kg Weight 112.037 kg Physical Exam Const: COMMON NORMALS: patient oriented x3 HENMT: COMMON NORMALS: normocephalic and atraumatic HEAD & SCALP: normocephalic and atraumatic Resp: COMMON NORMALS: clear to auscultation bilaterally AUSCULTATION: clear to auscultation bilaterally Cardio: COMMON NORMALS: regular rate, regular rhythm, S1 normal heart sound present, S2 normal heart sound present, No gallops present (Cardio), No murmurs present (Cardio), No rub (Cardio) and Peripheral pulses 2+ throughout RATE: regular rate RHYTHM: regular rhythm HEART SOUNDS: S1 normal heart sound present and S2 normal heart sound present PERIPHERAL PULSES: Peripheral pulses 2+ throughout GI: COMMON NORMALS: Normal to inspection, nondistended, normoactive bowel sounds present, Soft to palpation, non-tender, No hepatosplenomegaly present and no masses AUSCULTATION: Yes normoactive bowel sounds PALPATION: Yes Soft to palpation and Yes No hepatosplenomegaly present RECTAL EXAM: Yes deferred Extremity: COMMON NORMALS: no clubbing, cyanosis or edema and no pedal edema Neuro: COMMON NORMALS: patient oriented x3 Data 03/03/23 01:42 03/03/23 01:42 Micro: Microbiology 03/02/23 00:31 Urine Culture - Preliminary Urine,Clean Catch Gram Negative Rods 03/02/23 04:00 Blood Culture - Preliminary Blood NEGATIVE TO DATE 03/02/23 04:09 Blood Culture - Preliminary Blood A&P Assessment and plan (1) Recurrent UTI: (2) Nephrolithiasis: (3) Diabetes: (4) Atrial fibrillation: (5) Chronic anticoagulation: (6) Aortic stenosis: (7) Body mass index [BMI] 38.0-38.9, adult: (8) Acute cystitis: (9) UTI (urinary tract infection): (10) Cholecystitis: Plan Assessment: #Sepsis secondary to UTI: Patient currently meets sepsis criteria as he has fever, elevated white cell count, relative hypotension which has responded to cautious IV hydration. #UTI #Urolithiasis #Planned cholecystectomy in AM previously planned #Afib, rate controlled #Chronic AC however held for surgery #Chronic UTI on chronic suppresion #Hx of ESBL UTi #Pulmonary HTN #HTN #Gout #Liver cirhossis #RA #Chronic CHF with reduced EF Plan: Blood culture is negative till date Urine culture gram-negative cristian Lactic acid 1.7 Procalcitonin: 0.09 CT abdomen and pelvis has shown:Unchanged right proximal ureteral calculus causing no significant obstruction. Other tiny kidney stones, X-ray chest is suggestive of mild pulmonary vascular congestion Currently patient is on vancomycin and meropenem He is also on his hydrocortisone 50 IV twice daily as he is chronically on prednisone initial random cortisol was 15. Currently on heparin drip for his history of A-fib with RVR Continue Bumex 2 mg IV daily Continue aspirin statin Coreg for now -MDSSI, Lantus 25 units subcu at bedtime, monitor fingerstick glucose -Urology on board for stent and/or ureteroscopic laser lithotripsy next week -Patient was scheduled for elective cholecystectomy on the day of admission .currently surgery on board. Full Code Attestations Medical Necessity Statement*: Patient is to be in hospital management of sepsis. Coding Level of Care Code Acute Code for Chg Fwd Diagnoses Recurrent UTI N39.0 Nephrolithiasis N20.0 Diabetes E11.9 Atrial fibrillation I48.91 Chronic anticoagulation Z79.01 Aortic stenosis I35.0 Body mass index [BMI] 38.0-38.9, adult Z68.38 Acute cystitis N30.00 UTI (urinary tract infection) N39.0 Cholecystitis K81.9
[2023-03-03 15:18] LABS: Partial Thromboplastin Time 67.1 SECONDS (23.9-36.7)
--- NOTE | 2023-03-03 16:11 | P.PN_ITS ---
Subjective Subjective: Patient is much more alert today and reports feeling better. Vitals/I&O/Wt Last Vital Signs Temp 98 F 03/03/23 12:00 Pulse 73 03/03/23 12:00 Resp 16 03/03/23 12:00 BP 168/68 03/03/23 12:00 Pulse Ox 98 03/03/23 12:00 O2 Del Method Nasal Cannula 03/03/23 08:35 O2 Flow Rate 2 03/03/23 08:35 03/03/23 03/03/23 03/03/23 06:59 14:59 22:59 Intake Total 640.933 / 1750.000 50 / 50 Balance 640.933 / 1750.000 50 / 50 Weight last 48 hrs Weight 256 lb 9 oz Weight 247 lb Weight 247 lb Physical Exam Narrative: General: No acute distress Abdomen: Soft, nondistended, nontender, no guarding rebound or masses Data 03/03/23 01:42 03/03/23 01:42 Micro: Microbiology 03/02/23 00:31 Urine Culture - Preliminary Urine,Clean Catch Gram Negative Rods 03/02/23 04:00 Blood Culture - Preliminary Blood NEGATIVE TO DATE 03/02/23 04:09 Blood Culture - Preliminary Blood A&P Assessment and plan (1) Cholecystitis: (2) UTI (urinary tract infection): Plan Medical management per hospitalist Hopefully he can undergo laparoscopic cholecystectomy prior to discharge. He has been holding his Coumadin I will coordinate with urology for timing of surgery Notably he has been on Augmentin while at home Attestations Medical Necessity Statement*: Per primary Coding Level of Care Code Acute Code for [facility] Diagnoses Cholecystitis K81.9 UTI (urinary tract infection) N39.0
[2023-03-03 17:46] LABS: Glucose Point of Care 210 mg/dL (70-110)
[2023-03-03] MEDS: atorvastatin 40 mg Tablet PO (17:57)
[2023-03-03] MEDS: hyDROXYzine 25 mg Capsule PO (17:57)
[2023-03-03] MEDS: insulin lispro 100 unit/1 mL SUBCUT ×2 (17:57→21:11)
[2023-03-03] MEDS: aspirin 81 mg EC Tablet PO (20:27)
[2023-03-03] MEDS: insulin glargine 100 units/1 mL 25 UNIT SUBCUT (21:11)
[2023-03-03 21:31] LABS: Partial Thromboplastin Time 60.7 SECONDS (23.9-36.7)
[2023-03-03 21:50] LABS: Glucose Point of Care 200 mg/dL (70-110)
[2023-03-04] VITALS (7 sets, daily range): BP systolic 143–174; BP diastolic 83–89; PULSE 70–92; RESP 16–20; TEMP 36.5–37.1; O2SAT 94–98
[2023-03-04] MEDS: hydrocortisone 100 mg/2 mL SDV 50 MG IVP ×2 (00:07→11:52)
[2023-03-04] MEDS: vancomycin 1,500 MG/300 ML PIGGYBACK 200 MG IV ×2 (00:08→12:36)
[2023-03-04] MEDS: meropenem 1,000 MG in sodium chloride 0.9% (plus) 50 ML 100 MG IV ×3 (03:06→20:30)
[2023-03-04 03:29] LABS: Hematocrit 34.9 % (42.0-52.0); Mean Corpuscular HGB Conc 28.7 g/dL (30.0-36.0); Mean Corpuscular Hemoglobin 16.3 pg (28.0-34.0); Mean Corpuscular Volume 56.8 fl (80-94); Platelet Count 225 10^3/cmm (130-400); Red Blood Count 6.14 10^6/uL (4.1-5.3); Red Cell Distribution Width 20.3 % (12.1-15.1); White Blood Count 11.9 10^3/uL (4.0-10.0)
[2023-03-04 03:49] LABS: Alanine Aminotransferase 13 U/L (0-41); Albumin Level 3.1 g/dL (3.5-5.2); Alkaline Phosphatase 53 U/L (40-130); Anion Gap 11.5 (5-19); Aspartate Amino Transferase 15 U/L (0-40); Blood Urea Nitrogen 30 mg/dL (8-23); Calcium 8.6 mg/dL (8.5-10.5); Carbon Dioxide 26 mmol/L (22-29); Chloride 101 mmol/L (98-107); Globulin 2.7 g/dL (1.3-4.6); Glomerular Filtration Rate 74.1 mL/min (90-130); Glucose 156 mg/dL (65-115); Osmolality Calculated 289 mOsm/kg (285-295); Potassium 3.5 mmol/L (3.5-5.1); Sodium 135 mmol/L (136-145); Total Bilirubin 0.5 mg/dL (0.15-1.2); Total Protein 5.8 g/dL (6.6-8.7)
[2023-03-04 04:09] LABS: Absolute Eosinophils 0.1 10^3/cmm (0.0-0.7); Absolute Segmented Neutrophil 9.9 10/cmm (1.6-7.1); Eosinophils 1 %; Lymphocytes 15 %; Lymphocytes Absolute 1.8 10^3/cmm (1.2-3.4); Monocytes Absolute 0.1 10^3/cmm (0.1-0.6); Segmented Neutrophils 83 %; Total Cells Counted 100 (0-100)
[2023-03-04 04:10] LABS: Absolute Neutrophil 9.9 10^3/cmm (1.4-6.5); Platelet Estimate Normal (Normal)
[2023-03-04 04:11] LABS: Hypochromasia 2+; Schistocytes 1+
[2023-03-04 04:13] LABS: Burr Cells 1+; Poikilocytosis 1+; Target Cells 1+
[2023-03-04 04:15] LABS: Anisocytosis 1+; Macrocytosis 2+
[2023-03-04] MEDS: heparin 5,000 unit/mL INJ 1 mL IV ×2 (05:18→18:44)
[2023-03-04] MEDS: citalopram 20 mg Tablet 10 MG PO (05:18)
[2023-03-04] MEDS: pantoprazole DR 40 mg Tablet PO (05:19)
[2023-03-04] MEDS: bumetanide 0.25 mg/mL SDV 10 mL 2 MG IVP (06:22)
[2023-03-04 06:27] LABS: Glucose Point of Care 191 mg/dL (70-110)
--- NOTE | 2023-03-04 09:36 | PM.PN ---
Subjective Subjective: Urology follow-up: White count is 11.9 He has been afebrile. No evidence of septic progression Complaining of some right upper quadrant tenderness increasing. Not severe though. I did review the chart. Dr. English is hoping that we can get the procedure done while he is hospitalized ? Monday, combination stent placement possible flexible ureteroscopy and cholecystectomy under the same anesthesia. I should have time available my schedule with Dr. English can work that in. We will review with him. Vitals/I&O/Wt Last Vital Signs Temp 98.2 F 03/04/23 08:00 Pulse 76 03/04/23 08:42 Resp 16 03/04/23 08:42 BP 156/85 03/04/23 08:00 Pulse Ox 95 03/04/23 08:42 O2 Del Method Room Air 03/04/23 08:42 O2 Flow Rate 2 03/03/23 20:00 03/03/23 03/04/23 03/04/23 22:59 06:59 14:59 Intake Total 50 / 400 980 / 1380 350 / 350 Output Total 1200 / 1200 Balance 50 / 400 -220 / 180 350 / 350 Weight last 48 hrs Weight 261 lb 9 oz Weight 256 lb 9 oz Physical Exam Narrative: Alert, appropriate No acute distress No CVA tenderness Decreased confusion Peers baseline. Data 03/04/23 03:05 03/04/23 03:05 Micro: Microbiology 03/02/23 00:31 Urine Culture - Preliminary Urine,Clean Catch Gram Negative Rods A&P Assessment and plan (1) Right ureteral calculus: Right proximal ureteral stone with chronic mild obstruction. Scheduled intervention postponed due to recurrent UTI symptoms. Tentative plans for stent and/or ureteroscopic laser lithotripsy next week We will try to coordinate with Dr. English for that. No overt renal colic. (2) Recurrent UTI: Improving symptomatically. White count is increasing though. (3) Chronic anticoagulation: Plan We will discuss more with . Try to make some arrangements for early next week Focus will be primarily on stent placement but if capable and access to the stone is obtainable then ureteroscopic laser lithotripsy We will discuss with Dr. English see if we can come up with a combined approach as originally planned. Attestations Medical Necessity Statement*: See attending Coding Level of Care Code Acute Code for Chg Fwd Diagnoses Right ureteral calculus N20.1 Recurrent UTI N39.0 Chronic anticoagulation Z79.01
[2023-03-04] MEDS: insulin lispro 100 unit/1 mL SUBCUT ×4 (09:45→20:39)
[2023-03-04] MEDS: hyDROXYzine 25 mg Capsule PO ×2 (09:45→18:02)
--- NOTE | 2023-03-04 10:43 | SC_ITS ---
WS: [id number] C-arm fluoroscopy for right ureteral stent placement, 03/05/2023 Clinical Data: Right UPJ stone, urethroscopy Comparison: KUB, 03/02/2023 Findings: Dr. Berkowitz inserted a right ureteral stent. The proximal portion is curled in the region of the rig ht renal pelvis. SC/C-arm FL for Urology Impression: Insertion of right ureteral stent.
--- NOTE | 2023-03-04 10:53 | PM.MISC ---
Miscellaneous Note Purpose of Documentation: UPDATE Note: Reviewed with Dr. English. Will plan for combined procedure originally scheduled for 03/02/23 to be done now on 03/05/23 @ 8:00AM Have tried to reach his . Couldn't leave message on her phone. Nursing staff aware that I need to speak to her if she arrives.
--- NOTE | 2023-03-04 12:13 | PM.PN ---
Subjective Subjective: Patient was seen and examined this morning, overall he is doing better. Medications: Reviewed: Yes Medication Review Details: Generic Name Dose Route Start Last Admin Trade Name Freq PRN Reason Stop Dose Admin Acetaminophen 650 mg 03/02/23 04:37 03/02/23 11:38 Acetaminophen 32 5 Mg Tablet PO 650 mg Q6H PRN Administration Mild/Mod Pain Or Temp >/= 101 Albuterol/Ipratrop ium 3 ml 03/02/23 04:37 03/02/23 10:58 Ipratropium-Albu terol 3 Ml Neb INHALATION 3 ml Q6H.RESP PRN Administration SHORTNESS OF EZ TH Aspirin 81 mg 03/02/23 21:00 03/03/23 20:27 Aspirin 81 Mg Ec Tablet PO 81 mg BEDTIME PADMAJA Administration Atorvastatin Calci um 40 mg 03/02/23 19:00 03/03/23 17:57 Atorvastatin 40 Mg Tablet PO 40 mg DAILY@19 PADMAJA Administration Bumetanide 2 mg 03/03/23 07:00 03/04/23 06:22 Bumetanide 0.25 Mg/Ml Sdv 10 Ml IVP 2 mg Q24H PADMAJA Administration Carvedilol 6.25 mg 03/02/23 09:00 03/02/23 09:46 Carvedilol 6.25 Mg Tablet PO 6.25 mg BID PADMAJA Administration Citalopram Hydrobr omide 10 mg 03/04/23 06:00 03/04/23 05:18 Citalopram 20 Mg Tablet PO 10 mg QAM PADMAJA Administration Heparin Sodium (Po rcine) 0 unit 03/02/23 10:43 03/04/23 05:18 Heparin 5,000 Un it/Ml Inj 1 Ml IV 2,300 unit PRN PRN Administration Heparin weight-ba se protocol Protocol Hydrocortisone Sod ium Succinate 50 mg 03/02/23 12:00 03/04/23 11:52 Hydrocortisone 1 00 Mg/2 Ml Sdv IVP 50 mg Q12H PADMAJA Administration Hydroxyzine Pamoat e 25 mg 03/03/23 18:00 03/04/23 09:45 Hydroxyzine 25 M g Capsule PO 25 mg BID PADMAJA Administration Meropenem 1,000 mg / Sodium 50 mls @ 100 mls/ hr 03/02/23 11:00 03/04/23 11:59 Chloride IV 100 mls/hr Q8H PADMAJA Administration Protocol Heparin Sodium/Sod ium Chloride 25,000 unit in 50 0 mls @ 0 mls/hr 03/02/23 10:45 03/03/23 23:42 Heparin Drip IV 12.5 unit/kg/hr .Q0M PADMAJA 28 mls/hr Administration Protocol Per Protocol Vancomycin/PEG/NAD A/Lysine/Water 1,500 mg in 300 m ls @ 200 mls/hr 03/02/23 12:30 03/04/23 08:00 Vancocin IV Infused Q12H PADMAJA Infusion Insulin Glargine 25 unit 03/03/23 21:00 03/03/23 21:11 Insulin Glargine 100 Units/1 Ml SUBCUT 25 unit BEDTIME PADMAJA Administration Insulin Human Lisp ro 0 unit 03/02/23 18:00 03/04/23 09:45 Insulin Lispro 1 00 Unit/1 Ml SUBCUT 4 unit WM&BEDTIME PADMAJA Administration Protocol Ondansetron HCl 4 mg 03/02/23 04:37 03/02/23 11:23 Ondansetron 2 Mg /Ml Sdv 2 Ml IVP 4 mg Q8H PRN Administration vomiting, or N/V if npo Pantoprazole Sodiu m 40 mg 03/02/23 08:23 03/04/23 05:[address] 40 Mg Tablet PO 40 mg DAILY@06 PADMAJA Administration Vitals/I&O/Wt Last Vital Signs Temp 98.2 F 03/04/23 08:00 Pulse 76 03/04/23 08:42 Resp 16 03/04/23 08:42 BP 156/85 03/04/23 08:00 Pulse Ox 95 03/04/23 08:42 O2 Del Method Room Air 03/04/23 08:42 O2 Flow Rate 2 03/03/23 20:00 03/03/23 03/04/23 03/04/23 22:59 06:59 14:59 Intake Total 50 / 400 980 / 1380 350 / 350 Output Total 1200 / 1200 Balance 50 / 400 -220 / 180 350 / 350 Weight last 48 hrs Weight 118.643 kg Weight 116.375 kg Physical Exam Const: COMMON NORMALS: patient oriented x3 HENMT: COMMON NORMALS: normocephalic and atraumatic HEAD & SCALP: normocephalic and atraumatic Resp: COMMON NORMALS: clear to auscultation bilaterally AUSCULTATION: clear to auscultation bilaterally Cardio: COMMON NORMALS: regular rate, regular rhythm, S1 normal heart sound present, S2 normal heart sound present, No gallops present (Cardio), No murmurs present (Cardio), No rub (Cardio) and Peripheral pulses 2+ throughout RATE: regular rate RHYTHM: regular rhythm HEART SOUNDS: S1 normal heart sound present and S2 normal heart sound present PERIPHERAL PULSES: Peripheral pulses 2+ throughout GI: COMMON NORMALS: Normal to inspection, nondistended, normoactive bowel sounds present, Soft to palpation, non-tender, No hepatosplenomegaly present and no masses AUSCULTATION: Yes normoactive bowel sounds PALPATION: Yes Soft to palpation and Yes No hepatosplenomegaly present RECTAL EXAM: Yes deferred Extremity: COMMON NORMALS: no clubbing, cyanosis or edema and no pedal edema Neuro: COMMON NORMALS: patient oriented x3 Data 03/04/23 03:05 03/04/23 03:05 Micro: Microbiology 03/02/23 00:31 Urine Culture - Preliminary Urine,Clean Catch Gram Negative Rods A&P Assessment and plan (1) Recurrent UTI: (2) Nephrolithiasis: (3) Diabetes: (4) Atrial fibrillation: (5) Chronic anticoagulation: (6) Aortic stenosis: (7) Body mass index [BMI] 38.0-38.9, adult: (8) Acute cystitis: (9) UTI (urinary tract infection): (10) Cholecystitis: Plan Assessment: #Sepsis secondary to UTI: Patient currently meets sepsis criteria as he has fever, elevated white cell count, relative hypotension which has responded to cautious IV hydration. #UTI #Urolithiasis #Planned cholecystectomy in AM previously planned #Afib, rate controlled #Chronic AC however held for surgery #Chronic UTI on chronic suppresion #Hx of ESBL UTi #Pulmonary HTN #HTN #Gout #Liver cirhossis #RA #Chronic CHF with reduced EF Plan: Blood culture is negative till date Urine culture: Klebsiella pneumonia ESBL, similar organism has grown in past, possible colonization cannot be excluded. Currently optimally covered with meropenem, if needed can be discharged on ertapenem. Lactic acid 1.7 Procalcitonin: 0.09 CT abdomen and pelvis has shown:Unchanged right proximal ureteral calculus causing no significant obstruction. Other tiny kidney stones, X-ray chest is suggestive of mild pulmonary vascular congestion Currently patient is on vancomycin and meropenem He is also on his hydrocortisone 50 IV twice daily as he is chronically on prednisone initial random cortisol was 15. Currently on heparin drip for his history of A-fib with RVR Continue Bumex 2 mg IV daily Continue aspirin statin Coreg for now -MDSSI, Lantus 25 units subcu at bedtime, monitor fingerstick glucose -Urology on board for stent and/or ureteroscopic laser lithotripsy -Patient was scheduled for elective cholecystectomy on the day of admission.currently surgery on board. Full Code Attestations Medical Necessity Statement*: Needs to be in hospital for IV antibiotics, awaiting surgical intervention. Coding Level of Care Code 17781 Diagnoses Recurrent UTI N39.0 Nephrolithiasis N20.0 Diabetes E11.9 Atrial fibrillation I48.91 Chronic anticoagulation Z79.01 Aortic stenosis I35.0 Body mass index [BMI] 38.0-38.9, adult Z68.38 Acute cystitis N30.00 UTI (urinary tract infection) N39.0 Cholecystitis K81.9
[2023-03-04 12:41] LABS: Glucose Point of Care 241 mg/dL (70-110)
--- NOTE | 2023-03-04 14:04 | PM.PN ---
Subjective Subjective: Patient is much more alert today and reports feeling better. He was eating when I talked to him today. Vitals/I&O/Wt Last Vital Signs Temp 98 F 03/04/23 12:00 Pulse 87 03/04/23 12:00 Resp 16 03/04/23 12:00 BP 174/84 03/04/23 12:00 Pulse Ox 97 03/04/23 12:00 O2 Del Method Room Air 03/04/23 12:00 O2 Flow Rate 2 03/03/23 20:00 03/03/23 03/04/23 03/04/23 22:59 06:59 14:59 Intake Total 50 / 400 980 / 1380 636 / 636 Output Total 1200 / 1200 Balance 50 / 400 -220 / 180 636 / 636 Weight last 48 hrs Weight 261 lb 9 oz Weight 256 lb 9 oz Physical Exam Narrative: General: No acute distress Abdomen: Soft, nondistended, nontender, no guarding rebound or masses Data 03/04/23 03:05 03/04/23 03:05 Micro: Microbiology 03/02/23 00:31 Urine Culture - Final Urine,Clean Catch Klebsiella pneumonia esbl A&P Assessment and plan (1) Cholecystitis: (2) UTI (urinary tract infection): Plan Medical management per hospitalist Laparoscopic cholecystectomy in the morning The risks and benefits of the procedure, including but not limited to, bleeding, infection, scar, numbness, pain, damage to surrounding structures, damage to common bile duct requiring additional surgery, conversion to an open procedure, were explained to the patient. He is understanding of the risks and wishes to proceed. Hold heparin drip at midnight Attestations Medical Necessity Statement*: Per primary Coding Level of Care Code Acute Code for [facility] Fwd Diagnoses Cholecystitis K81.9 UTI (urinary tract infection) N39.0
[2023-03-04 17:22] LABS: Glucose Point of Care 267 mg/dL (70-110)
[2023-03-04] MEDS: heparin drip 25,000 UNIT/500 ML PREMIX 28 UNIT IV (17:59)
[2023-03-04] MEDS: atorvastatin 40 mg Tablet PO (18:02)
[2023-03-04] MEDS: aspirin 81 mg EC Tablet PO (20:30)
[2023-03-04] MEDS: insulin glargine 100 units/1 mL 25 UNIT SUBCUT (20:40)
[2023-03-04 21:44] LABS: Glucose Point of Care 271 mg/dL (70-110)
[2023-03-05] VITALS (22 sets, daily range): BP systolic 138–219; BP diastolic 64–127; PULSE 60–96; RESP 16–24; TEMP 36.1–36.4; O2SAT 92–99; BMI 35.4
[2023-03-05] MEDS: hydrocortisone 100 mg/2 mL SDV 50 MG IVP ×2 (00:08→12:54)
[2023-03-05 00:10] LABS: Vancomycin Trough 29.4 ug/mL (10-15)
[2023-03-05] MEDS: meropenem 1,000 MG in sodium chloride 0.9% (plus) 50 ML 100 MG IV ×3 (03:33→20:22)
[2023-03-05 04:38] LABS: Basophils % 0.2 %; Eosinophils # 0.1 10^3/uL (0.0-0.8); Eosinophils % 0.6 %; Hematocrit 31.4 % (42.0-52.0); Hemoglobin 9.3 g/dL (11.7-16.6); Lymphocytes # 1.1 10^3/uL (0.8-4.8); Lymphocytes % 11.4 %; Mean Corpuscular HGB Conc 29.6 g/dL (30.0-36.0); Mean Corpuscular Hemoglobin 16.3 pg (28.0-34.0); Monocytes # 0.5 10^3/uL (0.2-0.9); Monocytes % 5.1 %; Neutrophils # 8.19 10^3/uL (1.8-7.7); Neutrophils % 82.3 %; Nucleated Red Blood Cells % 0.2 %; Platelet Count 228 10^3/cmm (130-400); Red Blood Count 5.71 10^6/uL (4.1-5.3); Red Cell Distribution Width 19.8 % (12.1-15.1)
[2023-03-05 05:05] LABS: Alanine Aminotransferase 14 U/L (0-41); Albumin Level 2.8 g/dL (3.5-5.2); Alkaline Phosphatase 48 U/L (40-130); Aspartate Amino Transferase 13 U/L (0-40); Blood Urea Nitrogen 28 mg/dL (8-23); Calcium 7.9 mg/dL (8.5-10.5); Carbon Dioxide 26 mmol/L (22-29); Chloride 108 mmol/L (98-107); Globulin 2.4 g/dL (1.3-4.6); Glomerular Filtration Rate 111.8 mL/min (90-130); Glucose 111 mg/dL (65-115); Osmolality Calculated 310 mOsm/kg (285-295); Sodium 147 mmol/L (136-145); Total Bilirubin 0.5 mg/dL (0.15-1.2); Total Protein 5.2 g/dL (6.6-8.7)
[2023-03-05] MEDS: vancomycin 1,250 MG/250 ML PIGGYBACK 250 MG IV (05:31)
[2023-03-05] MEDS: bumetanide 0.25 mg/mL SDV 10 mL 2 MG IVP (06:45)
[2023-03-05 07:04] LABS: Glucose Point of Care 136 mg/dL (70-110)
[2023-03-05] MEDS: sodium chloride 0.9% 1,000 ML 100 ML IV (07:51)
--- NOTE | 2023-03-05 07:59 | W.PM.OPSUD ---
Surgery/Procedure H&P Update DATE OF PROCEDURE: March 05, 2023 DATE H&P PERFORMED: 03/02/23 H&P UPDATE INFORMATION: I have reviewed H&P completed within last 30 days, I have examined patient prior to procedure and No changes to prior documentation PREOP DIAGNOSIS: Right proximal ureteral stone PLANNED PROCEDURE: Operation Date: 03/02/23 07:00 Proposed Procedures p [id number] lap jimmy k81.9(Not Applicable) - Gary English DO s CYSTOSCOPY RIGHT URETERAL STENT POSSIBLE URETEROSCOPY 05273,N20.1(Not Applicable) - Billy Berkowitz MD s Ureteral Stent Placement(Right) - Billy Berkowitz MD s Ureteroscopy(Right) - Billy Berkowitz MD Operation Date: 03/05/23 08:20 Proposed Procedures p Ureteral Stent Placement(Right) - Billy Berkowitz MD s Ureteroscopy(Right) - Billy Berkowitz MD s Cystoscopy(Right) - Billy Berkowitz MD s Laparoscopic Cholecystectomy(Right) - Gary English DO
[2023-03-05] MEDS: heparin 5,000 unit/mL INJ 1 mL 5000 UNIT SUBCUT ×3 (08:10→20:22)
--- NOTE | 2023-03-05 08:11 | ANES.PREANE2 ---
Pre-Anesthetic Assessment Height/Weight: Height 1.8 m Weight 115.354 kg Temp Pulse Resp BP Pulse Ox O2 Del Method O2 Flow Rate 97.0 F L 74 18 219/127 95 Room Air 2 03/05/23 07:49 03/05/23 07:49 03/05/23 07:49 03/05/23 07:49 03/05/23 07:49 03/05/23 07:49 03/04/23 20:00 Preop Diagnosis: Right proximal ureteral stone Operation Date: 03/02/23 07:00 Proposed Procedures p [id number] lap jimmy k81.9(Not Applicable) - Gary English DO s CYSTOSCOPY RIGHT URETERAL STENT POSSIBLE URETEROSCOPY 70586,N20.1(Not Applicable) - Billy Berkowitz MD s Ureteral Stent Placement(Right) - Billy Berkowitz MD s Ureteroscopy(Right) - Billy Berkowitz MD Operation Date: 03/05/23 08:20 Proposed Procedures p Ureteral Stent Placement(Right) - Billy Berkowitz MD s Ureteroscopy(Right) - Billy Berkowitz MD s Cystoscopy(Right) - Billy Berkowitz MD s Laparoscopic Cholecystectomy(Right) - Gary English DO Familial anesthetic complications: none Was Beta Caridad taken within 24 hours: Yes Was Clonidine taken within 24 hours: N/A Social No alcohol and No tobacco Exam alert, oriented x 3 and regular rate & rhythm Airway Submandibular: within normal limits Cervical ROM: within normal limits Mallampati: Class II Dentition: chipped Pulmonary Chronic Obstructive Pulmonary Disease and Sleep Apnea CV/HEM Atrial Fibrillation, Anemia, Coronary Artery Disease, Congestive Heart Failure (EF 45% ('19)) and Hypertension TAVR, anticoagulation UTI, stones GI Gastroesophageal Reflux Disease Cholecystitis Metabolic Diabetes Mellitus and Morbid Obesity Chronic steroids Neuropsych Cerebrovascular Accident and Dementia Anesthetic Plan ASA status: 3 Anesthesia: General Medications/Allergies Home Medications Medication Instructions Recorded Confirmed Last Taken Type citalopram 10 mg tablet (Celexa) 10 mg PO QAM 12/03/19 03/02/23 03/01/23 History pantoprazole 40 mg tablet,delayed 40 mg PO DAILY@06 12/25/19 03/02/23 03/01/23 History release (Protonix) potassium chloride 20 mEq 20 meq PO DAILY 12/25/19 03/02/23 03/01/23 History tablet,extended release aspirin 81 mg tablet,delayed 81 mg PO BEDTIME 10/10/20 03/02/23 03/01/23 History release atorvastatin 40 mg tablet 40 mg PO DAILY@19 02/17/21 03/02/23 03/01/23 History Lactobacillus acidophilus 20 20,000 mmu cells PO BEDTIME 07/12/21 03/02/23 03/01/23 History billion cell capsule (Florajen Acidophilus) insulin glargine 100 unit/mL (3 25 unit SUBCUT BID 07/12/21 03/02/23 03/01/23 History mL) subcutaneous pen (Lantus Solostar U-100 Insulin) vit no.95-ferrous 1 tab PO DAILY@06 07/12/21 03/02/23 03/01/23 History fumarate 28 mg-folic acid 800 mcg tablet ( Multivitamins) acetaminophen 500 mg tablet 500 mg PO Q6H PRN Pain 12/29/21 03/02/23 03/02/23 History ascorbic acid (vitamin C) 500 mg 500 mg PO QPM 07/13/22 03/02/23 03/01/23 History tablet (Vitamin C) nitroglycerin 0.4 mg sublingual 0.4 mg sublingual Q5M PRN Chest 07/13/22 03/02/23 12/22/22 History tablet (Nitrostat) Pain cholecalciferol (vitamin D3) 125 125 mcg PO QAM 11/04/22 03/02/23 01/04/23 History mcg (5,000 unit) tablet (Vitamin D3) warfarin 1 mg tablet 6 mg PO QPM 11/04/22 03/02/23 02/23/23 History fosfomycin tromethamine 3 gram 3 g PO Q3D chronic suppression for 11/06/22 03/02/23 03/01/23 Rx oral packet UTI 3 months #30 ea hydroxyzine pamoate 25 mg capsule 25 mg PO BID 12/15/22 03/02/23 03/01/23 History bumetanide 2 mg tablet 1 mg PO DAILY #60 tabs 12/23/22 03/02/23 03/01/23 Rx prednisone 5 mg tablet 10 mg PO QAM 01/04/23 03/02/23 03/01/23 History amoxicillin 875 mg-potassium 1 tab PO BID 14 days #28 tabs 01/25/23 03/02/23 03/01/23 Rx clavulanate 125 mg tablet carvedilol 6.25 mg tablet 6.25 mg PO BID 02/08/23 03/02/23 03/01/23 History Allergies Allergy/AdvReac Type Severity Reaction Status Date / Time ceftriaxone [From Rocephin] Allergy Intermediate ALGY-Difficulty Verified 03/02/23 06:42 Breathing levofloxacin [From Levaquin] Allergy Mild ADR-Itching Verified 03/02/23 06:42 iodine Allergy Unknown Unknown Verified 03/02/23 06:42 Pork/Porcine Containing Allergy gout Verified 03/02/23 06:42 Products clopidogrel [From Plavix] AdvReac Intermediate Unknown Verified 03/02/23 06:42 Current Medications Generic Name Dose Route Start Last Admin Trade Name Freq PRN Reason Stop Dose Admin Acetaminophen 650 mg 03/02/23 04:37 03/02/23 11:38 Acetaminophen 325 Mg Tablet PO 650 mg Q6H PRN Administration Mild/Mod Pain Or Temp >/= 101 Albuterol/Ipratropium 3 ml 03/02/23 04:37 03/02/23 10:58 Ipratropium-Albuterol 3 Ml Neb INHALATION 3 ml Q6H.RESP PRN Administration SHORTNESS OF BREATH Aspirin 81 mg 03/02/23 21:00 03/04/23 20:30 Aspirin 81 Mg Ec Tablet PO 81 mg BEDTIME PADMAJA Administration Atorvastatin Calcium 40 mg 03/02/23 19:00 03/04/23 18:02 Atorvastatin 40 Mg Tablet PO 40 mg DAILY@19 PADMAJA Administration Bumetanide 2 mg 03/03/23 07:00 03/05/23 06:45 Bumetanide 0.25 Mg/Ml Sdv 10 Ml IVP 2 mg Q24H PADMAJA Administration Carvedilol 6.25 mg 03/02/23 09:00 03/02/23 09:46 Carvedilol 6.25 Mg Tablet PO 6.25 mg BID PADMAJA Administration Citalopram Hydrobromide 10 mg 03/04/23 06:00 03/05/23 05:30 Citalopram 20 Mg Tablet PO Not Given QAM PADMAJA Heparin Sodium (Porcine) 0 unit 03/02/23 10:43 03/04/23 18:44 Heparin 5,000 Unit/Ml Inj 1 Ml IV 4,600 unit PRN PRN Administration Heparin weight-base protocol Protocol Hydrocortisone Sodium Succinate 50 mg 03/02/23 12:00 03/05/23 00:08 Hydrocortisone 100 Mg/2 Ml Sdv IVP 50 mg Q12H PADMAJA Administration Hydroxyzine Pamoate 25 mg 03/03/23 18:00 03/04/23 18:02 Hydroxyzine 25 Mg Capsule PO 25 mg BID PADMAJA Administration Meropenem 1,000 mg/ Sodium 50 mls @ 100 mls/hr 03/02/23 11:00 03/05/23 03:33 Chloride IV 100 mls/hr Q8H [facility] Administration Protocol Heparin Sodium/Sodium Chloride 25,000 unit in 500 mls @ 0 mls/hr 03/02/23 10:45 03/04/23 17:59 Heparin Drip IV 12.5 unit/kg/hr .Q0M PADMAJA 28 mls/hr Administration Protocol Per Protocol Vancomycin/PEG/NADA/Lysine/Water 1,250 mg in 250 mls @ 250 mls/hr 03/05/23 06:30 03/05/23 05:31 Vancocin IV 250 mls/hr Q18H [facility] Administration Sodium Chloride 1,000 mls @ 100 mls/hr 03/05/23 07:30 03/05/23 07:51 Sodium Chloride 0.9% IV 03/06/23 07:29 100 mls/hr .Q10H [facility] Administration Insulin Glargine 25 unit 03/03/23 21:00 03/04/23 20:40 Insulin Glargine 100 Units/1 Ml SUBCUT 25 unit BEDTIME [facility] Administration Insulin Human Lispro 0 unit 03/02/23 18:00 03/04/23 20:39 Insulin Lispro 100 Unit/1 Ml SUBCUT 8 unit WM&BEDTIME [facility] Administration Protocol Ondansetron HCl 4 mg 03/02/23 04:37 03/02/23 11:23 Ondansetron 2 Mg/Ml Sdv 2 Ml IVP 4 mg Q8H PRN Administration vomiting, or N/V if npo Pantoprazole Sodium 40 mg 03/02/23 08:23 03/05/23 05:[address] 40 Mg Tablet PO Not Given DAILY@06 [facility] Anesthesia Medical History Acute cystitis Altered mental status Aortic stenosis Had TAVR replacement 2017 Atrial fibrillation Atrial fibrillation with slow ventricular response Bilateral renal masses CHF (congestive heart failure) EF 45 by transesophageal echo January 2019 Chronic antibiotic suppression Chronic anticoagulation coumadin Chronic cystitis Chronic urinary tract infection, suppressed Chronic use of steroids Complex renal cyst Congestive heart failure CVA (cerebral vascular accident) Dementia Diabetes Dyslipidemia Endocarditis history of chronic viridans endocarditis, 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 Essential hypertension Gout High risk medication use arava and chronic steroids 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 Hx of [place] spotted fever Ischemic cardiomyopathy Left ventricular hypertrophy Liver cirrhosis Obesity AJAY (obstructive sleep apnea) Pre-syncope Pulmonary HTN Pyelonephritis of right kidney Recurrent UTI Multidrug-resistant organisms Renal calculi Restrictive lung disease Rheumatoid arthritis Rheumatoid arthritis Shoulder pain Skin lesion Syncope Syncope and collapse Thalassemia Urinary tract infection due to ESBL Klebsiella Surgical History H/O lithotripsy S/P TAVR (transcatheter aortic valve replacement) (~2017) Family History Mother Stroke Father Myocardial infarction Other CAD (coronary artery disease) Chronic kidney disease (CKD) Diabetes Hypertension Social History Smoking and tobacco status: former smoker Quit status (tobacco): has quit using tobacco Year quit tobacco: 2019 - Chewing Tobacco Former quit date comment: Hx of 1/2 can x 50 Years Second hand smoke exposure: No Alcohol intake: former Lives independently: No Household members: spouse Marital status: Current occupational status: retired and disabled Current gender identity: Male Data Anesthesia 03/05/23 04:03 03/05/23 04:03 Short CBC 03/04/23 03/05/23 Range/Units 03:05 04:03 WBC 11.9 H 10.0 (4.0-10.0) 10^3/uL Hgb 10.0 L 9.3 L (11.7-16.6) g/dL Hct 34.9 L 31.4 L (42.0-52.0) % MCV 56.8 L 55.0 L (80-94) fl Plt Count 225 228 (130-400) 10^3/cmm Neut % (Auto) 82.3 % Neut # (Auto) 8.19 H (1.8-7.7) 10^3/uL BMP 03/04/23 03/05/23 03:05 04:03 Sodium 135 L 147 H Potassium 3.5 3.0 L Chloride 101 108 H Carbon Dioxide 26 26 BUN 30 H 28 H Creatinine 1.0 0.7 Glucose 156 H 111 Calcium 8.6 7.9 L Liver Function 03/04/23 03/05/23 Range/Units 03:05 04:03 Total Bilirubin 0.5 0.5 (0.15-1.2) mg/dL AST 15 13 (0-40) U/L ALT 13 14 (0-41) U/L Alkaline Phosphatase 53 48 (40-130) U/L Albumin 3.1 L 2.8 L (3.5-5.2) g/dL Coags 03/03/23 03/03/23 03/03/23 08:49 14:45 20:54 APTT 67.9 H 67.1 H 60.7 H 03/04/23 03/04/23 03/04/23 03:05 11:05 17:53 APTT 49.0 H 59.0 H 39.0 H Microbiology 03/02/23 00:31 Urine Culture - Final Urine,Clean Catch Klebsiella pneumonia esbl Cardiac Studies: Echocardiogram 11/06/22
[2023-03-05] MEDS: iohexol 350 mg/mL 100 mL Btl 10 ML XX (08:46)
--- NOTE | 2023-03-05 09:36 | PM.OP ---
Operative Report Date of procedure: March 05, 2023 Pre-op diagnosis: Obstructing right proximal ureteral stone Post-op diagnosis: Obstructing right proximal ureteral stone Procedure done: 1. Cystoscopy, RIGHT: Retrograde ureteropyelogram 2. RIGHT: Ureteral renoscopy, laser lithotripsy, stent (7 [place]ian by 30 cm double-pigtail without string) Implants: Right ureteral stent Specimens removed/disposition: Sand Pathology: None Surgeon: Woo Estimated blood loss: Less than 10 cc Urine output: Not measured Complications: None Findings: Anesthesia: General Condition: Stable Disposition: PACU Intraoperative findings: Stone in the expected position. Was not impacted. Migrated into the renal pelvis with passage of wire Easily accessible with flexible ureteroscope and completely fragmented with a 200 ?m thulium superpulse laser fiber Stent left indwelling (7 [place]ian by 30 cm double-pigtail without string) Brief History: Clear to 67-year-old white male with a longstanding history of recurrent UTIs and stones. Has had some difficult to treat UTIs based on multidrug resistance. Was found to have a moderate size stone obstructing his right UPJ. Also has been recently hospitalized at least a couple times with cholecystitis. Definitive treatment of the stone and gallbladder were postponed due to his other medical conditions and recurrent infections. Was recently hospitalized with increased infection but responded well to antibiotics and ultimately was decided to perform a combined procedure with general surgery which would include ureteroscopic treatment of the stone and stenting as well as cholecystectomy. That procedure was scheduled for today. Procedure: After routine preoperative evaluation examination and obtaining of informed consent he was taken to the operating suite on 03/05/2023 where general anesthesia was administered without difficulty after appropriate timeout was performed, SCDs confirmed to be functioning, therapeutic antibiotics on schedule, beta-becky protocol confirmed. Heparin IV infusion has been stopped 6 hours prior to surgery. He was administered a single dose of heparin for prophylaxis as per protocol. Prepped and draped in the usual sterile fashion in dorsolithotomy position pain careful attention to avoiding pressure points. 21 [place]ibian cystoscope with 30 degree lens was introduced into the urethral meatus advanced into the bladder without difficulty. The bladder was systematically examined. No stones were seen. Prostate was not overtly enlarged. No mucosal abnormalities were identified. Orifice was easily seen. An 8 [place]ian cone-tip catheter was intubated into the right ureteral orifice for an RIGHT RETROGRADE URETEROPYELOGRAM which demonstrated: Normal course and caliber of the ureter until a filling defect consistent with a roughly 1 cm stone at the UPJ was identified. Thankfully contrast easily flowed beyond the stone and the stone was clearly not impacted. A flexible tip guidewire was then advanced up the right ureter easily bypassing the stone and actually pushing it into the renal pelvis. The distal ureter was then dilated with a 15 [place]ian 4 cm balloon with no waist at 6 kenyon of pressure. A second guidewire was passed. The first was secured to the drapes as a safety wire and the second was used as a working wire. A 24 cm ureteral access sheath was advanced over the working wire but was too short to get anywhere close to the stone and then it was exchanged for a 38 cm ureteral access sheath which was able to be advanced all the way to the hub and was still positioned a couple inches below the stone. A semirigid ureteroscope was then advanced easily through the sheath but was not long enough to reach the stone in the renal pelvis and therefore was exchanged for a flexible ureteroscope which was passed over the working wire. The wire was removed. The stone was identified in the posterior aspect of the renal pelvis near the upper pole calyx infundibulum. Stone was fragmented with a 200 ?m thulium superpulse laser fiber into mostly sand with a few very small particles. Most of it was flushed through the scope with a syringe the remaining was all deemed to be very small and likely to pass. The calyces were carefully inspected for completion and no additional stone fragments of consequence were identified. The sheath was backloaded onto the hub of the scope. The ureter was carefully inspected as the scope was withdrawn. There was fairly diffuse mild dilation trauma and for that reason it was decided to leave a stent in. No other stones were seen on the withdrawal of the scope. Cystoscope was then backloaded over the guidewire and a 7 [place]ian by 30 cm double-pigtail stent was advanced over the guidewire through the cystoscope into appropriate position as confirmed via fluoroscopy and cystoscopy. Stent was confirmed to be draining. Bladder was confirmed to be stone free. He tolerated procedure well without complications. He was then turned over to Dr. English for his portion of the procedure, specifically laparoscopic cholecystectomy. Patient did very well throughout the procedure. He was stable hemodynamically without any complications. PLANS: 1. Will be discharged with the stent in place. Due to the dilation trauma I recommended that the stent remain in place for 3 to 4 weeks. 2. He will continue to need to be on antibiotics at discharge. Most recent culture on admission (03/02/2023) showed ESBL E. coli with sensitivity to tetracycline and levofloxacin. The remainder sensitive ones included Zosyn, imipenem, gentamicin and amikacin. Patient has followed with Dr. Downing. Would like to have her input on treatment options on outpatient basis
[2023-03-05] MEDS: lidocaine-epi 2% 20 mL INJ INJECTION (09:55)
--- NOTE | 2023-03-05 10:29 | P.OP_ITS ---
Operative Report Date of procedure: March 05, 2023 Pre-op diagnosis: Preop Diagnosis Symptomatic Cholelithiasis Post-op diagnosis: same Procedure done: Laparoscopic cholecystectomy Implants: Surgicel Specimens removed/disposition: Gallbladder Surgeon: Dr. Gary English DO Anesthesia: General Estimated blood loss (mL): 5 Complications: None apparent Brief History: This is a very pleasant 67-year-old gentleman who had an episode of acute panchito culus cholecystitis. This was successfully treated with antibiotics. Laparoscopic cholecystectomy was indicated. The risk and benefits were explained and documented. Procedure: Patient was wheeled into the operative room and placed on the OR table in a supine position. Abdomen was inspected prepped and draped in usual sterile fashion. Time-out was performed and all present were in agreement. A 15 blade scalp was used to make a stab incision in the left upper quadrant and intra- abdominal insufflation was achieved using a Veress needle. After localizing the tissue incisions were made and a 5 millimeter trocar was placed into the umbilicus as well as 2 in the right upper quadrant. A 12 millimeter trocar was placed in the epigastrium. Gallbladder was grasped and elevated. The triangle of Calot was carefully dissected using blunt dissection and electrocautery until the triangle of Calot clearly identified. The cystic duct was clipped proximally and double clipped distally. The duct was then ligated proximally. The cystic artery was doubly clipped and ligated. The gallbladder was then removed from the liver bed using electrocautery. The gallbladder was removed from the abdomen using an Endo-Catch bag through the epigastric incision. The liver bed was inspected and small areas of bleeding were cauterized. Due to the patient being on anticoagulation regularly, with heparin to restart in 24 hours, I put a piece of Surgicel in the liver bed. The abdomen was irrigated and suctioned. All ports removed. Skin was washed and dried. Incisions were closed with 4-0 Monocryl in a subcuticular interrupted fashion. Skin glue was applied. Patient tolerated the procedure well.
--- NOTE | 2023-03-05 10:50 | P.PCN_ITS ---
PACU note Narrative: VSS, Good respiratory effort, report to DISABILITIES SERVICES OFFICER Exam: awake
--- NOTE | 2023-03-05 10:50 | PM.PACU ---
PACU note Narrative: VSS, Good respiratory effort, report to OFFICE TECHNOLOGIST Exam: awake
--- NOTE | 2023-03-05 11:09 | ANE.PACU2 ---
Inpatient post-anesthesia follow up: Airway intact: Yes Vital signs: Temperature 97 F Pulse Rate 64 Respiratory Rate 18 Blood Pressure 152/93 Pulse Oximetry 98 Oxygen Delivery Me thod Simple Mask Oxygen Flow Rate 6 Fraction of Inspir ed Oxygen Hydration adequate: Yes Nausea and vomiting: No Pain level: 3 Mental status: Baseline
[2023-03-05] MEDS: ondansetron 2 mg/ML SDV 2 mL 4 MG IVP (12:02)
[2023-03-05 12:09] LABS: Glucose Point of Care 178 mg/dL (70-110)
--- NOTE | 2023-03-05 12:38 | PM.PN ---
Subjective Subjective: [facility]ations: Reviewed: Yes Medication Review Details: Generic Name Dose Route Start Last Admin Trade Name Freq PRN Reason Stop Dose Admin Acetaminophen 650 mg 03/02/23 04:37 03/02/23 11:38 Acetaminophen 32 5 Mg Tablet PO 650 mg Q6H PRN Administration Mild/Mod Pain Or Temp >/= 101 Albuterol/Ipratrop ium 3 ml 03/02/23 04:37 03/02/23 10:58 Ipratropium-Albu terol 3 Ml Neb INHALATION 3 ml Q6H.RESP PRN Administration SHORTNESS OF EZ TH Aspirin 81 mg 03/02/23 21:00 03/04/23 20:30 Aspirin 81 Mg Ec Tablet PO 81 mg BEDTIME PADMAJA Administration Atorvastatin Calci um 40 mg 03/02/23 19:00 03/04/23 18:02 Atorvastatin 40 Mg Tablet PO 40 mg DAILY@19 PADMAJA Administration Bumetanide 2 mg 03/03/23 07:00 03/05/23 06:45 Bumetanide 0.25 Mg/Ml Sdv 10 Ml IVP 2 mg Q24H PADMAJA Administration Carvedilol 6.25 mg 03/02/23 09:00 03/02/23 09:46 Carvedilol 6.25 Mg Tablet PO 6.25 mg BID PADMAJA Administration Citalopram Hydrobr omide 10 mg 03/04/23 06:00 03/05/23 05:30 Citalopram 20 Mg Tablet PO Not Given QAM PADMAJA Heparin Sodium (Po rcine) 0 unit 03/02/23 10:43 03/04/23 18:44 Heparin 5,000 Un it/Ml Inj 1 Ml IV 4,600 unit PRN PRN Administration Heparin weight-ba se protocol Protocol Hydrocortisone Sod ium Succinate 50 mg 03/02/23 12:00 03/05/23 00:08 Hydrocortisone 1 00 Mg/2 Ml Sdv IVP 50 mg Q12H PADMAJA Administration Hydroxyzine Pamoat e 25 mg 03/03/23 18:00 03/04/23 18:02 Hydroxyzine 25 M g Capsule PO 25 mg BID PADMAJA Administration Meropenem 1,000 mg / Sodium 50 mls @ 100 mls/ hr 03/02/23 11:00 03/05/23 03:33 Chloride IV 100 mls/hr Q8H PADMAJA Administration Protocol Heparin Sodium/Sod ium Chloride 25,000 unit in 50 0 mls @ 0 mls/hr 03/02/23 10:45 03/04/23 17:59 Heparin Drip IV 12.5 unit/kg/hr .Q0M PADMAJA 28 mls/hr Administration Protocol Per Protocol Vancomycin/PEG/NAD A/Lysine/Water 1,250 mg in 250 m ls @ 250 mls/hr 03/05/23 06:30 03/05/23 05:31 Vancocin IV 250 mls/hr Q18H PADMAJA Administration Insulin Glargine 25 unit 03/03/23 21:00 03/04/23 20:40 Insulin Glargine 100 Units/1 Ml SUBCUT 25 unit BEDTIME PADMAJA Administration Insulin Human Lisp ro 0 unit 03/02/23 18:00 03/04/23 20:39 Insulin Lispro 1 00 Unit/1 Ml SUBCUT 8 unit WM&BEDTIME PADMAJA Administration Protocol Ondansetron HCl 4 mg 03/02/23 04:37 03/05/23 12:02 Ondansetron 2 Mg /Ml Sdv 2 Ml IVP 4 mg Q8H PRN Administration vomiting, or N/V if npo Pantoprazole Sodiu m 40 mg 03/02/23 08:23 03/05/23 05:[address] 40 Mg Tablet PO Not Given DAILY@06 [facility] Vitals/I&O/Wt Last Vital Signs Temp 97 F L 03/05/23 11:14 Pulse 79 03/05/23 11:14 Resp 18 03/05/23 11:14 BP 138/79 03/05/23 11:14 Pulse Ox 92 03/05/23 11:14 O2 Del Method Room Air 03/05/23 11:14 O2 Flow Rate 6 03/05/23 10:54 03/04/23 03/05/23 03/05/23 22:59 06:59 14:59 Intake Total 790 6 0 / 0 Output Total 125 / 125 Balance 790 2085 -125 / -125 Weight last 48 hrs Weight 115.354 kg Weight 118.643 kg Physical Exam Const: COMMON NORMALS: patient oriented x3 HENMT: COMMON NORMALS: normocephalic and atraumatic HEAD & SCALP: normocephalic and atraumatic Resp: COMMON NORMALS: clear to auscultation bilaterally AUSCULTATION: clear to auscultation bilaterally Cardio: COMMON NORMALS: regular rate, regular rhythm, S1 normal heart sound present, S2 normal heart sound present, No gallops present (Cardio), No murmurs present (Cardio), No rub (Cardio) and Peripheral pulses 2+ throughout RATE: regular rate RHYTHM: regular rhythm HEART SOUNDS: S1 normal heart sound present and S2 normal heart sound present PERIPHERAL PULSES: Peripheral pulses 2+ throughout GI: COMMON NORMALS: Normal to inspection, nondistended, normoactive bowel sounds present, Soft to palpation, non-tender, No hepatosplenomegaly present and no masses AUSCULTATION: Yes normoactive bowel sounds PALPATION: Yes Soft to palpation and Yes No hepatosplenomegaly present RECTAL EXAM: Yes deferred Extremity: COMMON NORMALS: no clubbing, cyanosis or edema and no pedal edema Neuro: COMMON NORMALS: patient oriented x3 Urinary Catheter Management: Arriola Latex: Cath Placed During This Visit: yes Urinary Catheter Date of Insertion: 03/05/23 Urinary Catheter Time of Insertion: 09:22 Data 03/05/23 04:03 03/05/23 04:03 Micro: Microbiology 03/02/23 00:31 Urine Culture - Final Urine,Clean Catch Klebsiella pneumonia esbl A&P Assessment and plan (1) Recurrent UTI: (2) Nephrolithiasis: (3) Diabetes: (4) Atrial fibrillation: (5) Chronic anticoagulation: (6) Aortic stenosis: (7) Body mass index [BMI] 38.0-38.9, adult: (8) Acute cystitis: (9) UTI (urinary tract infection): (10) Cholecystitis: Plan 67 year old male with past medical history of chronic recurrent UTI with ESBL presented to the hospital today for complaint of hematuria and flank pain, patient also had episode of acute cholecystitis, during that time he was managed conservatively, and was scheduled for elective laparoscopic cholecystectomy, for symptomatic cholelithiasis.Currently is being managed for. Assessment: #Sepsis secondary to UTI: Patient currently meets sepsis criteria as he has fever, elevated white cell count, relative hypotension which has responded to cautious IV hydration. #UTI #Urolithiasis #Planned cholecystectomy in AM previously planned #Afib, rate controlled #Chronic AC however held for surgery #Chronic UTI on chronic suppresion #Hx of ESBL UTi #Pulmonary HTN #HTN #Gout #Liver cirhossis #RA #Chronic CHF with reduced EF Plan: Blood culture is negative till date Urine culture: Klebsiella pneumonia ESBL, similar organism has grown in past, possible colonization cannot be excluded. Currently optimally covered with meropenem, if needed can be discharged on ertapenem.. Lactic acid 1.7 Procalcitonin: 0.09 CT abdomen and pelvis has shown:Unchanged right proximal ureteral calculus causing no significant obstruction. Other tiny kidney stones X-ray chest is suggestive of mild pulmonary vascular congestion Currently patient is on vancomycin and meropenem He is also on his hydrocortisone 50 IV twice daily as he is chronically on prednisone initial random cortisol was 15. Currently on heparin drip for his history of A-fib with RVR Wa on Bumex 2 mg IV daily.Has been switched to Bumex 1 mg p.o. daily Continue aspirin statin Coreg for now -MDSSI, Lantus 25 units subcu at bedtime, monitor fingerstick glucose -Urology on board : S/p Cystoscopy, RIGHT: Retrograde ureteropyelogram,RIGHT: Ureteral renoscopy, laser lithotripsy, stent (7 Tunisian by 30 cm double-pigtail without string) -s/p : Laparoscopic cholecystectomy : For symptomatic cholelithiasis Full Code Attestations Medical Necessity Statement*: Needs to be in hospital for IV antibiotics. Coding Level of Care Code Acute Code for Chg Fwd Diagnoses Recurrent UTI N39.0 Nephrolithiasis N20.0 Diabetes E11.9 Atrial fibrillation I48.91 Chronic anticoagulation Z79.01 Aortic stenosis I35.0 Body mass index [BMI] 38.0-38.9, adult Z68.38 Acute cystitis N30.00 UTI (urinary tract infection) N39.0 Cholecystitis K81.9
[2023-03-05] MEDS: lidocaine 1% 5 ML in potassium chloride premix 100 ML 26.25 ML IV (12:52)
[2023-03-05] MEDS: carvedilol 6.25 mg Tablet PO ×2 (12:52→17:21)
[2023-03-05] MEDS: insulin lispro 100 unit/1 mL SUBCUT ×3 (12:54→21:25)
--- NOTE | 2023-03-05 13:38 | PC.SOCIAL ---
Pg 2 IMM. Explained to pt Pg 2 IMM. No questions voiced. Provided pt a copy. Initialed, dated, & timed a copy & placed in chart.
[2023-03-05] MEDS: HYDROcodone-acetaminophen 7.5-325 mg Tablet 1 TAB PO ×2 (14:05→20:23)
[2023-03-05 16:49] LABS: Glucose Point of Care 238 mg/dL (70-110)
[2023-03-05] MEDS: hyDROXYzine 25 mg Capsule PO (17:21)
[2023-03-05] MEDS: atorvastatin 40 mg Tablet PO (17:58)
[2023-03-05 20:44] LABS: Glucose Point of Care 284 mg/dL (70-110)
[2023-03-05] MEDS: insulin glargine 100 units/1 mL 25 UNIT SUBCUT (21:25)
[2023-03-05] MEDS: aspirin 81 mg EC Tablet PO (21:25)
[2023-03-05] MEDS: HYDROmorphone 1 mg/mL INJ 1 mL IVP (21:58)
[2023-03-06] VITALS (10 sets, daily range): BP systolic 121–186; BP diastolic 74–93; PULSE 67–105; RESP 16–18; TEMP 36.3–36.8; O2SAT 96–100
[2023-03-06] MEDS: hydrocortisone 100 mg/2 mL SDV 50 MG IVP (00:05)
[2023-03-06] MEDS: HYDROcodone-acetaminophen 7.5-325 mg Tablet 1 TAB PO ×3 (03:03→17:14)
[2023-03-06] MEDS: meropenem 1,000 MG in sodium chloride 0.9% (plus) 50 ML 100 MG IV ×3 (03:31→21:24)
[2023-03-06] MEDS: heparin 5,000 unit/mL INJ 1 mL 5000 UNIT SUBCUT ×3 (03:31→21:24)
[2023-03-06] MEDS: citalopram 20 mg Tablet 10 MG PO (05:11)
[2023-03-06] MEDS: pantoprazole DR 40 mg Tablet PO (05:12)
[2023-03-06 05:44] LABS: Basophils % 0.1 %; Hematocrit 38.8 % (42.0-52.0); Hemoglobin 11.4 g/dL (11.7-16.6); Mean Corpuscular HGB Conc 29.4 g/dL (30.0-36.0); Mean Corpuscular Hemoglobin 16.5 pg (28.0-34.0); Mean Corpuscular Volume 56.2 fl (80-94); Monocytes # 1.1 10^3/uL (0.2-0.9); Monocytes % 7.6 %; Neutrophils # 12.33 10^3/uL (1.8-7.7); Neutrophils % 84.9 %; Nucleated Red Blood Cells % 0.1 %; Platelet Count 253 10^3/cmm (130-400); Red Blood Count 6.91 10^6/uL (4.1-5.3); White Blood Count 14.5 10^3/uL (4.0-10.0)
[2023-03-06 06:09] LABS: Alanine Aminotransferase 21 U/L (0-41); Albumin Level 3.3 g/dL (3.5-5.2); Alkaline Phosphatase 69 U/L (40-130); Anion Gap 15.2 (5-19); Aspartate Amino Transferase 21 U/L (0-40); Blood Urea Nitrogen 35 mg/dL (8-23); Calcium 9.3 mg/dL (8.5-10.5); Carbon Dioxide 27 mmol/L (22-29); Chloride 102 mmol/L (98-107); Globulin 3.1 g/dL (1.3-4.6); Glucose 158 mg/dL (65-115); Osmolality Calculated 301 mOsm/kg (285-295); Potassium 4.2 mmol/L (3.5-5.1); Sodium 140 mmol/L (136-145); Total Bilirubin 0.7 mg/dL (0.15-1.2); Total Protein 6.4 g/dL (6.6-8.7)
[2023-03-06 06:36] LABS: Glucose Point of Care 197 mg/dL (70-110)
--- NOTE | 2023-03-06 06:39 | PC.NURSE ---
SHIFT SUMMARY Ry has had a good night. Started shift with c/o abd pain and kept thinking he needed to have a BM. On BSC several times without any BM. Stated was feeling pressure. Is confused with a very poor short term memory and does not understand that some of the pressure is from stent placed. Was given po Hydrocodone without much relief with pain expressed so was given dose of IV Dilaudid. Spent all evening in chair. Went to bed after given the Dilaudid and did sleep for a while. Has been watching TV since woke up but remains in bed. po Hydrocodone repeated this am. Arriola is draining bloody urine. No clots noted and good output. Abd is soft with X4 stab incisions all C&D and with dermabond closure
[2023-03-06] MEDS: hyDROXYzine 25 mg Capsule PO ×2 (08:41→17:14)
[2023-03-06] MEDS: carvedilol 6.25 mg Tablet PO ×2 (08:41→17:14)
[2023-03-06] MEDS: bumetanide 1 mg Tablet PO (08:41)
[2023-03-06] MEDS: insulin lispro 100 unit/1 mL SUBCUT ×4 (08:41→21:25)
--- NOTE | 2023-03-06 10:18 | P.PN_ITS ---
Subjective Subjective: Urology follow-up: Postop day #1 cystoscopy, retrograde, right ureterorenoscopy with laser litho tripsy and temporary stent placement. Arriola catheter was left in postop but can be removed at any point. Urine is clear. * Symptoms: He is having some right upper quadrant pain. * White count this morning is higher at 14.5 * Creatinine: 1.2 We will plan on seeing him back in clinic next week for KUB and cystoscopy stent removal if KUB shows no residual fragments of any concern Discussed with Dr. Downing regarding antibiotic selection post discharge. Vitals/I&O/Wt Last Vital Signs Temp 97.5 F L 03/06/23 08:07 Pulse 92 03/06/23 08:07 Resp 18 03/06/23 08:07 BP 182/93 03/06/23 08:07 Pulse Ox 96 03/06/23 08:07 O2 Del Method Room Air 03/06/23 08:00 O2 Flow Rate 6 03/05/23 10:54 03/05/23 03/06/23 03/06/23 22:59 06:59 14:59 Intake Total 580 / 700 290 / 990 120 / 120 Output Total 200 / 325 500 / 825 Balance 380 / 375 -210 / 165 120 / 120 Weight last 48 hrs Weight 255 lb 8 oz Weight 254 lb 5 oz Physical Exam Narrative: Alert, mildly confused No acute distress No CVA tenderness Abdomen is soft. Catheter functioning well. Urine is clear Urinary Catheter Management: Arriola Latex: Cath Placed During This Visit: yes Reason for Continuing Indwelling Catheter: Perioperative Use in Selected Surgeries Urinary Catheter Date of Insertion: 03/05/23 Urinary Catheter Time of Insertion: 09:22 Data 03/06/23 05:22 03/06/23 05:22 A&P Assessment and plan (1) Right ureteral calculus: Status post right ureterorenoscopy with laser lithotripsy and temporary stent placement yesterday. Procedure went very well. (2) Recurrent UTI: White count is higher today. Vital signs are stable. No evidence of septic progression. Did review with Dr. Downing regarding plans for antibiotic therapy outpatient. It would be good to cover him until the stent is removed. (3) Chronic anticoagulation: No limitations on anticoagulation based on urologic conditions Attestations Medical Necessity Statement*: See attending Coding Level of Care Code Acute Code for Chg Fwd Diagnoses Right ureteral calculus N20.1 Recurrent UTI N39.0 Chronic anticoagulation Z79.01
[2023-03-06 11:11] LABS: Glucose Point of Care 202 mg/dL (70-110)
--- NOTE | 2023-03-06 14:05 | P.PN_ITS ---
Subjective Subjective: Mr. Loyd is getting a PICC line today. Leukocytosis up to 14.5 today. Has mild pain at the site of cholecystectomy in the right upper quadrant. He has been afebrile. Continues to have hematuria with dark red blood in urine. Medications: Reviewed: Yes Medication Review Details: 3Generic Name Dose Route Start Last Admin Trade Name Freq PRN Reason Stop Dose Admin Acetaminophen 650 mg 03/02/23 04:37 03/02/23 11:38 Acetaminophen 32 5 Mg Tablet PO 650 mg Q6H PRN Administration Mild/Mod Pain Or Temp >/= 101 Albuterol/Ipratrop ium 3 ml 03/02/23 04:37 03/02/23 10:58 Ipratropium-Albu terol 3 Ml Neb INHALATION 3 ml Q6H.RESP PRN Administration SHORTNESS OF EZ TH Aspirin 81 mg 03/02/23 21:00 03/04/23 20:30 Aspirin 81 Mg Ec Tablet PO 81 mg BEDTIME PADMAJA Administration Atorvastatin Calci um 40 mg 03/02/23 19:00 03/04/23 18:02 Atorvastatin 40 Mg Tablet PO 40 mg DAILY@19 PADMAJA Administration Bumetanide 2 mg 03/03/23 07:00 03/05/23 06:45 Bumetanide 0.25 Mg/Ml Sdv 10 Ml IVP 2 mg Q24H PADMAJA Administration Carvedilol 6.25 mg 03/02/23 09:00 03/02/23 09:46 Carvedilol 6.25 Mg Tablet PO 6.25 mg BID PADMAJA Administration Citalopram Hydrobr omide 10 mg 03/04/23 06:00 03/05/23 05:30 Citalopram 20 Mg Tablet PO Not Given QAM PADMAJA Heparin Sodium (Po rcine) 0 unit 03/02/23 10:43 03/04/23 18:44 Heparin 5,000 Un it/Ml Inj 1 Ml IV 4,600 unit PRN PRN Administration Heparin weight-ba se protocol Protocol Hydrocortisone Sod ium Succinate 50 mg 03/02/23 12:00 03/05/23 00:08 Hydrocortisone 1 00 Mg/2 Ml Sdv IVP 50 mg Q12H PADMAJA Administration Hydroxyzine Pamoat e 25 mg 03/03/23 18:00 03/04/23 18:02 Hydroxyzine 25 M g Capsule PO 25 mg BID PADMAJA Administration Meropenem 1,000 mg / Sodium 50 mls @ 100 mls/ hr 03/02/23 11:00 03/05/23 03:33 Chloride IV 100 mls/hr Q8H [facility] Administration Protocol Heparin Sodium/Sod ium Chloride 25,000 unit in 50 0 mls @ 0 mls/hr 03/02/23 10:45 03/04/23 17:59 Heparin Drip IV 12.5 unit/kg/hr .Q0M PADMAJA 28 mls/hr Administration Protocol Per Protocol Vancomycin/PEG/NAD A/Lysine/Water 1,250 mg in 250 m ls @ 250 mls/hr 03/05/23 06:30 03/05/23 05:31 Vancocin IV 250 mls/hr Q18H [facility] Administration Insulin Glargine 25 unit 03/03/23 21:00 03/04/23 20:40 Insulin Glargine 100 Units/1 Ml SUBCUT 25 unit BEDTIME PADMAJA Administration Insulin Human Lisp ro 0 unit 03/02/23 18:00 03/04/23 20:39 Insulin Lispro 1 00 Unit/1 Ml SUBCUT 8 unit WM&BEDTIME [facility] Administration Protocol Ondansetron HCl 4 mg 03/02/23 04:37 03/05/23 12:02 Ondansetron 2 Mg /Ml Sdv 2 Ml IVP 4 mg Q8H PRN Administration vomiting, or N/V if npo Pantoprazole Sodiu m 40 mg 03/02/23 08:23 03/05/23 05:[address] 40 Mg Tablet PO Not Given DAILY@06 [facility] Vitals/I&O/Wt Last Vital Signs Temp 97.5 F L 03/06/23 11:43 Pulse 73 03/06/23 11:43 Resp 18 03/06/23 11:43 BP 186/89 03/06/23 11:43 Pulse Ox 97 03/06/23 11:43 O2 Del Method Room Air 03/06/23 11:43 O2 Flow Rate 6 03/05/23 10:54 03/05/23 03/06/23 03/06/23 22:59 06:59 14:59 Intake Total 580 / 700 290 / 990 670 / 670 Output Total 200 / 325 500 / 825 Balance 380 / 375 -210 / 165 670 / 670 Weight last 48 hrs Weight 115.893 kg Weight 115.354 kg Physical Exam Narrative: General: No acute distress, AO x3 HEENT: PERRLA, pupils bilaterally equal and reactive, pallors not present Chest: Normal vesicular breath sounds, no added sounds, equal good air entry bilaterally CVS: S1-S2 regular, no murmurs, no tachycardia, no gallops, no rubs Abdomen: Soft, nontender, no organomegaly, bowel sounds present Neuro: No focal deficits, no facial deformity, AO x3, power 5/5 in all limbs Urinary Catheter Management: Arriola Latex: Cath Placed During This Visit: yes Reason for Continuing Indwelling Catheter: Perioperative Use in Selected Surgeries Urinary Catheter Date of Insertion: 03/05/23 Urinary Catheter Time of Insertion: 09:22 Data 03/06/23 05:22 03/06/23 05:22 Micro: Microbiology 03/02/23 04:09 Blood Culture - Preliminary Blood Rhodococcus equi A&P Assessment and plan (1) Recurrent UTI: (2) Nephrolithiasis: (3) Diabetes: (4) Atrial fibrillation: (5) Chronic anticoagulation: (6) Aortic stenosis: (7) Body mass index [BMI] 38.0-38.9, adult: (8) Acute cystitis: (9) UTI (urinary tract infection): (10) Cholecystitis: Plan 67 year old male with past medical history of chronic recurrent UTI with ESBL presented to the hospital today for complaint of hematuria and flank pain, patient also had recent episode of acute cholecystitis Assessment: #Sepsis secondary to UTI: Patient currently meets sepsis criteria as he has fever, elevated white cell count, relative hypotension which has responded to cautious IV hydration. Sepsis is now resolved. Urine culture showing ESBL E. coli Currently patient is on meropenem, plan to transition therapy to ertapenem 1 g IV every 24 hours for the next 10 to 14 days for complicated UTI Patient has now undergone lithotripsy and stent placement for a right longstanding renal calculus with Dr. Berkowitz. Hopefully now with treatment of this stone patient's recurrent bouts of UTI may improve. He has failed outpatient attempts at chronic suppression with fosfomycin. With the fosfomycin multiple gram-negative's and that he is to be seen in 2020 have been suppressed with the exception of Klebsiella ESBL. This may be related to antibiotic resistance. Unfortunately susceptibilities for fosfomycin were never able to be obtained from send out labs and spite of multiple attempts. Given multiple breakthrough infections, we will discontinue fosfomycin suppression at discharge. For now we will plan to use ertapenem until his next planned urological intervention for stent removal within the next 10 to 14 days. Thereafter we will likely plan on chronic suppression with doxycycline 100 mg p.o. twice daily if patient able to tolerate. Based on most recent susceptibility testing Klebsiella isolate appears to be susceptible to tetracyclines. Picc line ordered today #Rhodococcus equi blood culture reported positive today: No clinical correlate to suggest a Rhodococcus infection in this patient. He does not have any historical risk factors for the same. Suspect this to be a contaminant reported out of 1 out of 4 cultures. Will verify with [employer] tech tomorrow. Would not add vancomycin at this time Repeat blood cultures tomorrow. 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 He is on chronic suppression with amoxicillin since that time. Uncertain about the organism at that time, however given amoxicillin suppression suspect this may have been Staph aureus. We will request records from [facility] infectious [facility] where patient was followed previously. 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 #s/p Planned cholecystectomy : tolerated well. No active issues. #Afib, rate controlled #Chronic AC however held for surgery, will resume once hematuria resolves. On chronic A/c for h/o recurrent CVA per , CVA not thought to be related to septic embolization from endocarditis #HTN: Uncontrolled , add hydralazine #Gout #Liver cirhossis #RA #Chronic CHF with reduced EF: hold iv fluids, currently euvolemic. Attestations Medical Necessity Statement*: iv abx, PICC line, increasing leukocytosis, blood cx reported positive Coding Level of Care Code Acute Code for Chg Fwd Diagnoses Recurrent UTI N39.0 Nephrolithiasis N20.0 Diabetes E11.9 Atrial fibrillation I48.91 Chronic anticoagulation Z79.01 Aortic stenosis I35.0 Body mass index [BMI] 38.0-38.9, adult Z68.38 Acute cystitis N30.00 UTI (urinary tract infection) N39.0 Cholecystitis K81.9
--- NOTE | 2023-03-06 14:58 | PM.PN ---
Subjective Subjective: Patient seen and examined. Reports some postsurgical abdominal pain. Denies any nausea or vomiting. He would like his catheter removed Vitals/I&O/Wt Last Vital Signs Temp 97.5 F L 03/06/23 11:43 Pulse 73 03/06/23 11:43 Resp 18 03/06/23 11:43 BP 186/89 03/06/23 11:43 Pulse Ox 97 03/06/23 11:43 O2 Del Method Room Air 03/06/23 11:43 O2 Flow Rate 6 03/05/23 10:54 03/05/23 03/06/23 03/06/23 22:59 06:59 14:59 Intake Total 580 / 700 290 / 990 670 / 670 Output Total 200 / 325 500 / 825 Balance 380 / 375 -210 / 165 670 / 670 Weight last 48 hrs Weight 255 lb 8 oz Weight 254 lb 5 oz Physical Exam Narrative: General: No acute distress Abdomen: Soft, nondistended, appropriately tender to palpation, no guarding rebound or masses Incisions intact without erythema or exudate Urinary Catheter Management: Arriola Latex: Cath Placed During This Visit: yes Reason for Continuing Indwelling Catheter: Perioperative Use in Selected Surgeries Urinary Catheter Date of Insertion: 03/05/23 Urinary Catheter Time of Insertion: 09:22 Data 03/06/23 05:22 03/06/23 05:22 Micro: Microbiology 03/02/23 04:09 Blood Culture - Preliminary Blood Rhodococcus equi A&P Assessment and plan (1) Cholecystitis: Plan Postop day #1 status post laparoscopic cholecystectomy Pain control Diabetic diet A.m. labs Medical management per hospitalist Attestations Medical Necessity Statement*: Per primary Coding Level of Care Code Acute Code for [facility] Diagnoses Cholecystitis K81.9
--- NOTE | 2023-03-06 15:04 | PC.NURSE ---
Midline placed to left basilic vein without difficulty. Procedure explained to patient and patient . Informed consent obtained from . Pt tolerated procedure well. Mid-arm circumference measured 10 cm from left AC and noted at 26 cm. Total cath inserted 10 cm with 0 cm external length. Good blood return and flushes without difficulty. Less than 5 mL blood loss. Dressing due to be changed tomorrow, 03/07/23. Report given to bedside nurse, Irvin.
[2023-03-06] MEDS: hyDRALAzine 20 mg/mL INJ 1 mL 10 MG IVP (16:37)
[2023-03-06 16:51] LABS: Glucose Point of Care 219 mg/dL (70-110)
[2023-03-06] MEDS: atorvastatin 40 mg Tablet PO (17:14)
[2023-03-06 20:38] LABS: Glucose Point of Care 220 mg/dL (70-110)
[2023-03-06] MEDS: insulin glargine 100 units/1 mL 25 UNIT SUBCUT (21:25)
[2023-03-06] MEDS: aspirin 81 mg EC Tablet PO (21:25)
[2023-03-07] VITALS (9 sets, daily range): BP systolic 133–162; BP diastolic 62–90; PULSE 69–100; RESP 16–19; TEMP 36.4–36.6; O2SAT 91–100; BMI 35.6
[2023-03-07] MEDS: ondansetron 2 mg/ML SDV 2 mL 4 MG IVP (04:12)
[2023-03-07] MEDS: heparin 5,000 unit/mL INJ 1 mL 5000 UNIT SUBCUT ×2 (04:14→12:53)
[2023-03-07] MEDS: meropenem 1,000 MG in sodium chloride 0.9% (plus) 50 ML 100 MG IV ×3 (04:14→19:55)
[2023-03-07] MEDS: HYDROcodone-acetaminophen 7.5-325 mg Tablet 1 TAB PO ×2 (04:15→08:58)
[2023-03-07 06:30] LABS: Basophils % 0.2 %; Eosinophils # 0.1 10^3/uL (0.0-0.8); Eosinophils % 0.7 %; Hemoglobin 10.7 g/dL (11.7-16.6); Lymphocytes # 1.7 10^3/uL (0.8-4.8); Lymphocytes % 13.4 %; Mean Corpuscular HGB Conc 28.9 g/dL (30.0-36.0); Mean Corpuscular Hemoglobin 16.2 pg (28.0-34.0); Mean Corpuscular Volume 56.1 fl (80-94); Monocytes # 0.9 10^3/uL (0.2-0.9); Monocytes % 7.4 %; Neutrophils # 9.97 10^3/uL (1.8-7.7); Nucleated Red Blood Cells % 0.2 %; Platelet Count 193 10^3/cmm (130-400); Red Blood Count 6.59 10^6/uL (4.1-5.3); Red Cell Distribution Width 19.9 % (12.1-15.1); White Blood Count 12.8 10^3/uL (4.0-10.0)
[2023-03-07] MEDS: citalopram 20 mg Tablet 10 MG PO (06:32)
[2023-03-07] MEDS: pantoprazole DR 40 mg Tablet PO (06:32)
[2023-03-07 06:35] LABS: Glucose Point of Care 182 mg/dL (70-110)
[2023-03-07 06:51] LABS: Alanine Aminotransferase 17 U/L (0-41); Alkaline Phosphatase 53 U/L (40-130); Anion Gap 15.6 (5-19); Aspartate Amino Transferase 16 U/L (0-40); Blood Urea Nitrogen 37 mg/dL (8-23); Carbon Dioxide 24 mmol/L (22-29); Chloride 100 mmol/L (98-107); Globulin 2.8 g/dL (1.3-4.6); Glomerular Filtration Rate 66.4 mL/min (90-130); Glucose 83 mg/dL (65-115); Osmolality Calculated 290 mOsm/kg (285-295); Potassium 3.6 mmol/L (3.5-5.1); Sodium 136 mmol/L (136-145); Total Bilirubin 0.8 mg/dL (0.15-1.2); Total Protein 5.8 g/dL (6.6-8.7)
[2023-03-07 07:43] LABS: Slide Review Slide Review Perform
[2023-03-07] MEDS: carvedilol 6.25 mg Tablet PO ×2 (08:57→18:00)
[2023-03-07] MEDS: bumetanide 1 mg Tablet PO (08:57)
[2023-03-07] MEDS: hyDROXYzine 25 mg Capsule PO ×2 (08:57→18:00)
[2023-03-07] MEDS: insulin lispro 100 unit/1 mL SUBCUT (08:58)
--- NOTE | 2023-03-07 10:37 | PC.SOCIAL ---
IMM update Imm updated with patient at bedside. Copy of page 2 provided. Patient verbalized understanding. Copy in chart initialed, dated and timed.
[2023-03-07 11:16] LABS: Glucose Point of Care 87 mg/dL (70-110)
[2023-03-07 12:21] LABS: Glucose Point of Care 81 mg/dL (70-110)
--- NOTE | 2023-03-07 12:26 | PC.NURSE ---
Addendum entered by Radha Lepe RN 03/07/23 12:35: Note not finished when system timed out. Patient continued to be lethargic while sitting on the floor. We were unable to get a Rosalind lift pad under him without attempting to lay him back on the floor and turn him, which isn't ideal with patient's condition. We obtained help and utilized a gait belt to assist patient to the bed, boosted him, then assessed him. Upon assessment, patient sustained skin tears to his right shoulder and right elbow that were covered with Optifoam. Patient continues to be lethargic but VSS at this time. I spoke with Dr. Downing and she requests for coworkers to monitor patient's condition and call with any further changes. No need for scans, tests, etc. post-fall d/t patient having controlled fall with coworkers present and no injury related to the fall. I called and spoke with patient's spouse and informed her of this information. She verbalizes understanding and states he doesn't usually do this at home. She is on her way to the hospital at this time and will assist in decision-making for patient's d/c disposition. Original Note: This RN was called by Shaila Forrest RN for assistance with changing patient's midline dressing. When I presented to the room, patient was sitting in the chair, however kept slumping over to the left while attempting to change his dressing to his left arm. Patient was lethargic but easily aroused. FSBG was obtained with the result of 81. Patient's VSS at this time. Shaila Forrest and I decided to attempt to get patient back to bed. Patient has been up with 2x assistance. Shaila Forrest and I attempted to assist patient to a standing position, however he did not stand completely. When we attempted to sit him back in the chair, the pillow he had been sitting on slid out with him and we had to slowly lower him to the floor safely. Patient continued to be lethargic kdiane
--- NOTE | 2023-03-07 12:47 | PC.NURSE ---
Orders updated with dressing change orders from Dr. Downing.
--- NOTE | 2023-03-07 14:24 | CT_ITS ---
WS: [id number] CT HEAD NONCONTRAST HISTORY: evaluate for stroke, AMS TECHNIQUE: Contiguous axial imaging performed through the brain in 2.5 mm imaging. Bone and soft tiss ue windows. Sagittal and coronal reformats reviewed. All CT scans at [facility] use at least one of these dose optimization techniques: automated exposure control; mA and/or kV adjustment per pa tient size (includes targeted exams where dose is matched to clinical indication); or iterative recon struction. DLP: 1097.98 mGy.cm COMPARISON: 01/04/2023 No acute intracranial hemorrhage, midline shift or mass effect. Moderate atrophy with advanced small vessel ischemic disease. Greater low-attenuation within the LEFT cerebrum. Moderate atrophy of the cerebellum but greatest on the RIGHT. May be from a prior infarct. There is a prior infarct in the LEFT frontal lobe and also LEFT parietal lobe. No obvious progressio n of disease or acute edema. Remote lacunar infarct LEFT thalamus extending along the external capsu le. Ventricles: Normal size with no hydrocephalus. No inferior displacement of cerebellar tonsils. Paranasal sinuses: As visualized are clear. Mastoid air cells: Well pneumatized. Calvarium and scalp: Skull is intact with no soft tissue edema or swelling. CT/CT head wo con* [id number] IMPRESSION: 1. No acute intracranial hemorrhage or edema. 2. Cerebral and cerebellar atrophy and advanced small vessel ischemic disease with prior infarcts as described above. No evidence for an acute infarct or sul panchito effacement.
--- NOTE | 2023-03-07 14:24 | XR_ITS ---
WS: [id number] KUB, AP view, 03/07/2023 Clinical Data: evaluate for ileus Comparison: KUB, 03/02/2023 Findings: No abnormal intraabdominal masses or calcifications are seen. There is no dilatated small bowel or ev idence of obstruction. There is a right ureteral stent in good position. There are clips in the right upper quadrant from a cholecystectomy. There is a moderate amount of air in the small bowel and colon. XR/XR abdomen 1V* [id number] Impression: Minimal generalized ileus.
--- NOTE | 2023-03-07 14:24 | XR_ITS ---
WS: [id number] Portable AP semiupright chest, 03/07/2023 Clinical Data: shortness of breath Comparison: Portable chest, 03/02/2023 Findings: No nodules, masses or effusions are seen. The heart is enlarged. The aortic arch and descen ding thoracic aorta are tortuous. There is a artificial heart valve in position. The pulmonary vascul arity is not increased. No pneumonia or pneumothorax is seen. Monitor leads are on the chest wall. XR/XR chest 1V portable [id number] Impression: 1. Cardiomegaly and atherosclerosis. 2. Artificial cardiac valve.
[2023-03-07 15:15] LABS: ABG PCO2 48.9 mmHg (35-45); ABG PH Result 7.41 (7.35-7.45); Arterial Blood Gas Hematocrit 34.4 % (42-52); Base Excess ABG 5.4 mmol/L (-2.0-2.0); Blood Gas Operator Identificat GD; Blood Gas Sample Site Brachial, left; Blood Gas Sample Type Arterial; HCO3 ABG 30.9 mmol/L (22-26); Oxygen Device ROOM AIR; PO2 ABG 60.3 mmHg (80.0-100.0)
[2023-03-07] MEDS: FUROsemide 10 mg/mL SDV 4mL 40 MG IVP (15:47)
[2023-03-07 17:36] LABS: Glucose Point of Care 80 mg/dL (70-110)
--- NOTE | 2023-03-07 17:59 | P.PN_ITS ---
Subjective Subjective: Patient was doing well this morning but then became more lethargic throughout the day. He denies any pain. is at bedside Vitals/I&O/Wt Last Vital Signs Temp 97.6 F 03/07/23 12:00 Pulse 83 03/07/23 14:00 Resp 18 03/07/23 12:00 BP 138/62 03/07/23 12:00 Pulse Ox 92 03/07/23 12:00 O2 Del Method Room Air 03/07/23 12:00 O2 Flow Rate 6 03/06/23 20:00 03/07/23 03/07/23 03/07/23 06:59 14:59 22:59 Intake Total 50 / 1480 530 / 530 Balance 50 / 1480 530 / 530 Weight last 48 hrs Weight 255 lb 8 oz Weight 255 lb 8 oz Physical Exam Narrative: General no acute distress, somnolent Abdomen: Soft, mildly distended, appropriately tender to palpation, no guarding rebound or masses Incisions intact without erythema or exudate Urinary Catheter Management: Arriola Latex: Cath Placed During This Visit: yes, but has since been removed by the nurse Reason for Continuing Indwelling Catheter: Decision to DC Catheter Urinary Catheter Date of Insertion: 03/05/23 Urinary Catheter Time of Insertion: 09:22 Date Urinary Catheter Removed: 03/06/23 Time Urinary Catheter Discontinued: 16:16 Data 03/07/23 06:12 03/07/23 06:12 Micro: Microbiology 03/02/23 04:09 Blood Culture - Final Blood Rhodococcus equi 03/02/23 04:00 Blood Culture - Final Blood NO GROWTH AFTER 5 DAYS A&P Assessment and plan (1) Cholecystitis: Plan Postop day #2 status post laparoscopic cholecystectomy Pain control Diabetic diet A.m. labs Medical management per hospitalist Attestations Medical Necessity Statement*: Per primary Coding Level of Care Code Acute Code for [facility] Diagnoses Cholecystitis K81.9
[2023-03-07] MEDS: atorvastatin 40 mg Tablet PO (18:00)
[2023-03-07] MEDS: enoxaparin 120 mg/0.8 mL Syringe 115 MG SUBCUT (18:00)
--- NOTE | 2023-03-07 19:07 | P.PN_ITS ---
Subjective Subjective: Urology follow-up Original plan was to send him home today but he developed significant weakness of unclear etiology. Given that though his white count had decreased his vital signs have been stable Has had some decrease mentation today as well Cup: * No acute changes on CT scan of the head, No evidence of pneumonia * KUB showed the stent in good position. Consideration for possible response to narcotics. Reviewed with Vitals/I&O/Wt Last Vital Signs Temp 97.5 F L 03/07/23 16:00 Pulse 100 03/07/23 16:00 Resp 19 H 03/07/23 16:00 BP 158/90 03/07/23 16:00 Pulse Ox 95 03/07/23 16:00 O2 Del Method Nasal Cannula 03/07/23 16:00 O2 Flow Rate 6 03/06/23 20:00 03/07/23 03/07/23 03/07/23 06:59 14:59 22:59 Intake Total 50 / 1480 530 / 530 Balance 50 / 1480 530 / 530 Weight last 48 hrs Weight 255 lb 8 oz Weight 255 lb 8 oz Physical Exam Narrative: More lethargic today No acute distress Abdomen is soft No labored respiration. Urinary Catheter Management: Arriola Latex: Cath Placed During This Visit: yes, but has since been removed by the nurse Reason for Continuing Indwelling Catheter: Decision to DC Catheter Urinary Catheter Date of Insertion: 03/05/23 Urinary Catheter Time of Insertion: 09:22 Date Urinary Catheter Removed: 03/06/23 Time Urinary Catheter Discontinued: 16:16 Data 03/07/23 06:12 03/07/23 06:12 Micro: Microbiology 03/02/23 04:09 Blood Culture - Final Blood Rhodococcus equi 03/02/23 04:00 Blood Culture - Final Blood NO GROWTH AFTER 5 DAYS A&P Assessment and plan (1) Right ureteral calculus: Status post right ureterorenoscopy with laser lithotripsy and temporary stent placement yesterday. No obvious residual stone fragments seen on today's KUB but the quality of the images poor due to the patient's habitus (2) Recurrent UTI: Continues on IV antibiotics. White count has improved somewhat today. (3) Chronic anticoagulation: No limitations on anticoagulation based on urologic conditions Attestations Medical Necessity Statement*: See attending Coding Level of Care Code Acute Code for g Fwd Diagnoses Right ureteral calculus N20.1 Recurrent UTI N39.0 Chronic anticoagulation Z79.01
[2023-03-07] MEDS: aspirin 81 mg EC Tablet PO (20:03)
[2023-03-07 20:41] LABS: Glucose Point of Care 125 mg/dL (70-110)
[2023-03-07] MEDS: insulin glargine 100 units/1 mL 25 UNIT SUBCUT (21:00)
--- NOTE | 2023-03-07 22:33 | P.PN_ITS ---
Subjective Subjective: Patient seen multiple times this morning and then again in the afternoon. This morning he was awake, alert and oriented, conversant, was planned to be discharged home on iv abx, however later this morning became somnolent, needed 2 person assist to get off chair and into the bed which is new. He is currenty\ly drowsy. Review of medications shows that he received hydrocodone 7.5 mg this morning at ~9AM. Vital signs WNL. Medications: Reviewed: Yes Vitals/I&O/Wt Last Vital Signs Temp 97.7 F 03/07/23 19:59 Pulse 69 03/07/23 20:00 Resp 18 03/07/23 19:59 BP 150/90 03/07/23 19:59 Pulse Ox 98 03/07/23 20:00 O2 Del Method Nasal Cannula 03/07/23 20:00 O2 Flow Rate 2 03/07/23 20:00 03/07/23 03/07/23 03/07/23 06:59 14:59 22:59 Intake Total 50 / 1480 530 / 530 Balance 50 / 1480 530 / 530 Weight last 48 hrs Weight 115.893 kg Weight 115.893 kg Physical Exam Narrative: General: No acute distress, lethargic, does not wish to get out of bed HEENT: PERRLA, pupils bilaterally equal and reactive, pallors not present Chest: B/L crepts on auscultation CVS: S1-S2 regular, no murmurs, no tachycardia, no gallops, no rubs Abdomen: Soft, nontender, no organomegaly, bowel sounds present Urinary Catheter Management: Arriola Latex: Cath Placed During This Visit: yes, but has since been removed by the nurse Reason for Continuing Indwelling Catheter: Decision to DC Catheter Urinary Catheter Date of Insertion: 03/05/23 Urinary Catheter Time of Insertion: 09:22 Date Urinary Catheter Removed: 03/06/23 Time Urinary Catheter Discontinued: 16:16 Data 03/08/23 11:06 03/08/23 11:06 Micro: Microbiology 03/02/23 04:09 Blood Culture - Final Blood Rhodococcus equi 03/02/23 04:00 Blood Culture - Final Blood NO GROWTH AFTER 5 DAYS A&P Assessment and plan (1) Recurrent UTI: (2) Nephrolithiasis: (3) Diabetes: (4) Atrial fibrillation: (5) Chronic anticoagulation: (6) Aortic stenosis: (7) Body mass index [BMI] 38.0-38.9, adult: (8) Acute cystitis: (9) UTI (urinary tract infection): (10) Cholecystitis: Plan 67 year old male with past medical history of chronic recurrent UTI with ESBL presented to the hospital today for complaint of hematuria and flank pain, patient also had recent episode of acute cholecystitis Assessment: #Sepsis secondary to UTI: Patient currently meets sepsis criteria as he has fever, elevated white cell count, relative hypotension which has responded to cautious IV hydration. Sepsis is now resolved. Urine culture showing ESBL E. coli Currently patient is on meropenem, plan to transition therapy to ertapenem 1 g IV every 24 hours for the next 10 to 14 days for complicated UTI Patient has now undergone lithotripsy and stent placement for a right longstanding renal calculus with Dr. Berkowitz. Hopefully now with treatment of this stone patient's recurrent bouts of UTI may improve. He has failed outpatient attempts at chronic suppression with fosfomycin. With the fosfomycin multiple gram-negative's and that he is to be seen in 2020 have been suppressed with the exception of Klebsiella ESBL. This may be related to antibiotic resistance. Unfortunately susceptibilities for fosfomycin were never able to be obtained from send out labs and spite of multiple attempts. Given multiple breakthrough infections, we will discontinue fosfomycin suppression at discharge. For now we will plan to use ertapenem until his next planned urological intervention for stent removal within the next 10 to 14 days. Thereafter we will likely plan on chronic suppression with doxycycline 100 mg p.o. twice daily if patient able to tolerate. Based on most recent susceptibility testing Klebsiella isolate appears to be susceptible to tetracyclines. Picc line ordered today #Rhodococcus equi blood culture reported positive today: No clinical correlate to suggest a Rhodococcus infection in this patient. He does not have any historical risk factors for the same. Suspect this to be a contaminant reported out of 1 out of 4 cultures. Will verify with [employer] tech tomorrow. Would not add vancomycin at this time Repeat blood cultures tomorrow. 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 He is on chronic suppression with amoxicillin since that time. Uncertain about the organism at that time, however given amoxicillin suppression suspect this may have been Staph aureus. We will request records from [facility] infectious disease where patient was followed previously. 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 #s/p Planned cholecystectomy : tolerated well. No active issues. #Afib, rate controlled #Chronic AC however held for surgery, will resume once hematuria resolves. On chronic A/c for h/o recurrent CVA per , CVA not thought to be related to septic embolization from endocarditis #HTN: Uncontrolled , add hydralazine #Gout #Liver cirhossis #RA #Chronic CHF with reduced EF: hold iv fluids, currently euvolemic. Plan for today 03/07: check CT head, abg, repeat blood cx, labs from this morning unremarkable Attestations Medical Necessity Statement*: increasing somnolence, lethargy Coding Level of Care Code Acute Code for Chg Fwd Diagnoses Recurrent UTI N39.0 Nephrolithiasis N20.0 Diabetes E11.9 Atrial fibrillation I48.91 Chronic anticoagulation Z79.01 Aortic stenosis I35.0 Body mass index [BMI] 38.0-38.9, adult Z68.38 Acute cystitis N30.00 UTI (urinary tract infection) N39.0 Cholecystitis K81.9
[2023-03-08] VITALS (10 sets, daily range): BP systolic 108–172; BP diastolic 67–80; PULSE 69–100; RESP 16–20; TEMP 36.7–37.1; O2SAT 94–98
[2023-03-08] MEDS: meropenem 1,000 MG in sodium chloride 0.9% (plus) 50 ML 100 MG IV ×3 (03:02→20:52)
[2023-03-08] MEDS: enoxaparin 120 mg/0.8 mL Syringe 115 MG SUBCUT ×2 (03:02→14:57)
--- NOTE | 2023-03-08 03:30 | PC.NURSE ---
bladder scans done as ordered, no more than 155cc in bladder, incont of large amts multiple times. Patient will answer questions with yes/no answer, but offers no further conversation, has denied pain. Patient awakes easily and follows commands.
[2023-03-08] MEDS: citalopram 20 mg Tablet 10 MG PO (05:39)
[2023-03-08] MEDS: pantoprazole DR 40 mg Tablet PO (05:40)
[2023-03-08 06:21] LABS: Glucose Point of Care 110 mg/dL (70-110)
[2023-03-08] MEDS: hyDROXYzine 25 mg Capsule PO ×2 (09:41→17:50)
[2023-03-08] MEDS: bumetanide 1 mg Tablet PO (09:41)
[2023-03-08] MEDS: carvedilol 6.25 mg Tablet PO ×2 (09:41→17:50)
[2023-03-08 11:22] LABS: Basophils % 0.4 %; Eosinophils # 0.3 10^3/uL (0.0-0.8); Eosinophils % 2.4 %; Hematocrit 33.6 % (42.0-52.0); Lymphocytes # 1.4 10^3/uL (0.8-4.8); Lymphocytes % 13.6 %; Mean Corpuscular HGB Conc 29.8 g/dL (30.0-36.0); Mean Corpuscular Hemoglobin 16.5 pg (28.0-34.0); Mean Corpuscular Volume 55.4 fl (80-94); Monocytes # 0.8 10^3/uL (0.2-0.9); Neutrophils # 7.77 10^3/uL (1.8-7.7); Neutrophils % 75.3 %; Nucleated Red Blood Cells % 0 %; Platelet Count 201 10^3/cmm (130-400); Red Blood Count 6.06 10^6/uL (4.1-5.3); Red Cell Distribution Width 19.7 % (12.1-15.1); White Blood Count 10.3 10^3/uL (4.0-10.0)
[2023-03-08 11:32] LABS: Glucose Point of Care 233 mg/dL (70-110)
[2023-03-08 11:35] LABS: Alanine Aminotransferase 16 U/L (0-41); Albumin Level 2.8 g/dL (3.5-5.2); Alkaline Phosphatase 58 U/L (40-130); Anion Gap 12.1 (5-19); Aspartate Amino Transferase 19 U/L (0-40); Blood Urea Nitrogen 38 mg/dL (8-23); Calcium 8.3 mg/dL (8.5-10.5); Carbon Dioxide 30 mmol/L (22-29); Chloride 97 mmol/L (98-107); Globulin 2.6 g/dL (1.3-4.6); Glomerular Filtration Rate 95.8 mL/min (90-130); Glucose 195 mg/dL (65-115); Osmolality Calculated 296 mOsm/kg (285-295); Potassium 3.1 mmol/L (3.5-5.1); Sodium 136 mmol/L (136-145); Total Bilirubin 1.1 mg/dL (0.15-1.2); Total Protein 5.4 g/dL (6.6-8.7)
[2023-03-08] MEDS: insulin lispro 100 unit/1 mL SUBCUT ×3 (13:39→20:53)
[2023-03-08 17:19] LABS: Glucose Point of Care 195 mg/dL (70-110)
[2023-03-08] MEDS: atorvastatin 40 mg Tablet PO (17:50)
[2023-03-08 20:47] LABS: Glucose Point of Care 214 mg/dL (70-110)
[2023-03-08] MEDS: aspirin 81 mg EC Tablet PO (20:52)
[2023-03-08] MEDS: insulin glargine 100 units/1 mL 25 UNIT SUBCUT (20:52)
--- NOTE | 2023-03-08 22:57 | PM.PN ---
Subjective Subjective: more alert and awake compared to yesterday, eating lunch at time of exam assisted by . Planned for d/c today, however will be unable to care for him at home given deconditioning, wants to transition to SNF. Had BM earlier today, passing urine. Medications: Reviewed: Yes Medication Review Details: Generic Name Dose Route Start Last Admin Trade Name Freq PRN Reason Stop Dose Admin Acetaminophen 650 mg 03/02/23 04:37 03/02/23 11:38 Acetaminophen 32 5 Mg Tablet PO 650 mg Q6H PRN Administration Mild/Mod Pain Or Temp >/= 101 Albuterol/Ipratrop ium 3 ml 03/02/23 04:37 03/02/23 10:58 Ipratropium-Albu terol 3 Ml Neb INHALATION 3 ml Q6H.RESP PRN Administration SHORTNESS OF EZ TH Aspirin 81 mg 03/02/23 21:00 03/04/23 20:30 Aspirin 81 Mg Ec Tablet PO 81 mg BEDTIME PADMAJA Administration Atorvastatin Calci um 40 mg 03/02/23 19:00 03/04/23 18:02 Atorvastatin 40 Mg Tablet PO 40 mg DAILY@19 PADMAJA Administration Bumetanide 2 mg 03/03/23 07:00 03/05/23 06:45 Bumetanide 0.25 Mg/Ml Sdv 10 Ml IVP 2 mg Q24H PADMAJA Administration Carvedilol 6.25 mg 03/02/23 09:00 03/02/23 09:46 Carvedilol 6.25 Mg Tablet PO 6.25 mg BID PADMAJA Administration Citalopram Hydrobr omide 10 mg 03/04/23 06:00 03/05/23 05:30 Citalopram 20 Mg Tablet PO Not Given QAM PADMAJA Heparin Sodium (Po rcine) 0 unit 03/02/23 10:43 03/04/23 18:44 Heparin 5,000 Un it/Ml Inj 1 Ml IV 4,600 unit PRN PRN Administration Heparin weight-ba se protocol Protocol Hydrocortisone Sod ium Succinate 50 mg 03/02/23 12:00 03/05/23 00:08 Hydrocortisone 1 00 Mg/2 Ml Sdv IVP 50 mg Q12H PADMAJA Administration Hydroxyzine Pamoat e 25 mg 03/03/23 18:00 03/04/23 18:02 Hydroxyzine 25 M g Capsule PO 25 mg BID PADMAJA Administration Meropenem 1,000 mg / Sodium 50 mls @ 100 mls/ hr 03/02/23 11:00 03/05/23 03:33 Chloride IV 100 mls/hr Q8H COUNT INCLUDES THE [facility] Administration Protocol Heparin Sodium/Sod ium Chloride 25,000 unit in 50 0 mls @ 0 mls/hr 03/02/23 10:45 03/04/23 17:59 Heparin Drip IV 12.5 unit/kg/hr .Q0M PADMAJA 28 mls/hr Administration Protocol Per Protocol Vancomycin/PEG/NAD A/Lysine/Water 1,250 mg in 250 m ls @ 250 mls/hr 03/05/23 06:30 03/05/23 05:31 Vancocin IV 250 mls/hr Q18H COUNT INCLUDES THE [facility] Administration Insulin Glargine 25 unit 03/03/23 21:00 03/04/23 20:40 Insulin Glargine 100 Units/1 Ml SUBCUT 25 unit BEDTIME PADMAJA Administration Insulin Human Lisp ro 0 unit 03/02/23 18:00 03/04/23 20:39 Insulin Lispro 1 00 Unit/1 Ml SUBCUT 8 unit WM&BEDTIME COUNT INCLUDES THE [facility] Administration Protocol Ondansetron HCl 4 mg 03/02/23 04:37 03/05/23 12:02 Ondansetron 2 Mg /Ml Sdv 2 Ml IVP 4 mg Q8H PRN Administration vomiting, or N/V if npo Pantoprazole Sodiu m 40 mg 03/02/23 08:23 03/05/23 05:[address] 40 Mg Tablet PO Not Given DAILY@06 COUNT INCLUDES THE [facility] Vitals/I&O/Wt Last Vital Signs Temp 98.2 F 03/08/23 19:51 Pulse 99 03/08/23 22:00 Resp 18 03/08/23 19:51 BP 108/67 03/08/23 19:51 Pulse Ox 96 03/08/23 19:51 O2 Del Method Room Air 03/08/23 19:51 O2 Flow Rate 2 03/08/23 07:25 03/08/23 03/08/23 03/08/23 06:59 14:59 22:59 Intake Total 50 / 630 1090 / 1090 530 / 1620 Balance 50 / 630 1090 / 1090 530 / 1620 Weight last 48 hrs Weight 114.714 kg Weight 115.893 kg Physical Exam Narrative: General: No acute distress, AO x3 HEENT: PERRLA, pupils bilaterally equal and reactive, pallors not present Chest: Normal vesicular breath sounds, no added sounds, equal good air entry bilaterally CVS: S1-S2 regular, no murmurs, no tachycardia, no gallops, no rubs Abdomen: Soft, nontender, no organomegaly, bowel sounds present Neuro: No focal deficits, no facial deformity, AO x3, power 5/5 in all limbs Urinary Catheter Management: Arriola Latex: Cath Placed During This Visit: yes, but has since been removed by the nurse Reason for Continuing Indwelling Catheter: Decision to DC Catheter Urinary Catheter Date of Insertion: 03/05/23 Urinary Catheter Time of Insertion: 09:22 Date Urinary Catheter Removed: 03/06/23 Time Urinary Catheter Discontinued: 16:16 Data 03/08/23 11:06 03/08/23 11:06 Micro: Microbiology 03/07/23 06:12 Blood Culture - Preliminary Blood 03/07/23 06:05 Blood Culture - Preliminary Blood A&P Assessment and plan (1) Recurrent UTI: (2) Nephrolithiasis: (3) Diabetes: (4) Atrial fibrillation: (5) Chronic anticoagulation: (6) Aortic stenosis: (7) Body mass index [BMI] 38.0-38.9, adult: (8) Acute cystitis: (9) UTI (urinary tract infection): (10) Cholecystitis: Plan 67 year old male with past medical history of chronic recurrent UTI with ESBL presented to the hospital today for complaint of hematuria and flank pain, patient also had recent episode of acute cholecystitis Assessment: #Sepsis secondary to UTI: Patient currently meets sepsis criteria as he has fever, elevated white cell count, relative hypotension which has responded to cautious IV hydration. Sepsis is now resolved. Urine culture showing ESBL E. coli Currently patient is on meropenem, plan to transition therapy to ertapenem 1 g IV every 24 hours for the next 10 to 14 days for complicated UTI Patient has now undergone lithotripsy and stent placement for a right longstanding renal calculus with Dr. Berkowitz. Hopefully now with treatment of this stone patient's recurrent bouts of UTI may improve. He has failed outpatient attempts at chronic suppression with fosfomycin. With the fosfomycin multiple gram-negative's and that he is to be seen in 2020 have been suppressed with the exception of Klebsiella ESBL. This may be related to antibiotic resistance. Unfortunately susceptibilities for fosfomycin were never able to be obtained from send out labs and spite of multiple attempts. Given multiple breakthrough infections, we will discontinue fosfomycin suppression at discharge. For now we will plan to use ertapenem until his next planned urological intervention for stent removal within the next 10 to 14 days. Thereafter we will likely plan on chronic suppression with doxycycline 100 mg p.o. twice daily if patient able to tolerate. Based on most recent susceptibility testing Klebsiella isolate appears to be susceptible to tetracyclines. Picc line ordered today #Rhodococcus equi blood culture reported positive today: No clinical correlate to suggest a Rhodococcus infection in this patient. He does not have any historical risk factors for the same. Suspect this to be a contaminant reported out of 1 out of 4 cultures. Will verify with micro tech tomorrow. Would not add vancomycin at this time Repeat blood cultures tomorrow. 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 He is on chronic suppression with amoxicillin since that time. Uncertain about the organism at that time, however given amoxicillin suppression suspect this may have been Staph aureus. We will request records from [facility] infectious disease where patient was followed previously. 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 #s/p Planned cholecystectomy : tolerated well. No active issues. #Afib, rate controlled #Chronic AC however held for surgery, will resume once hematuria resolves. On chronic A/c for h/o recurrent CVA per , CVA not thought to be related to septic embolization from endocarditis #HTN: Uncontrolled , add hydralazine #Gout #Liver cirhossis #RA #Chronic CHF with reduced EF: hold iv fluids, currently euvolemic. plan for today: continue IVF, planned transition to SNF given deconditioning Attestations Medical Necessity Statement*: disposition planning Coding Level of Care Code Acute Code for Chg Fwd Diagnoses Recurrent UTI N39.0 Nephrolithiasis N20.0 Diabetes E11.9 Atrial fibrillation I48.91 Chronic anticoagulation Z79.01 Aortic stenosis I35.0 Body mass index [BMI] 38.0-38.9, adult Z68.38 Acute cystitis N30.00 UTI (urinary tract infection) N39.0 Cholecystitis K81.9
[2023-03-09] VITALS (13 sets, daily range): BP systolic 111–167; BP diastolic 60–92; PULSE 62–971; RESP 16–30; TEMP 36.3–37.5; O2SAT 90–98
--- NOTE | 2023-03-09 00:10 | PC.NURSE ---
DRSG CHANGE Skin tears to R arm keep oozing blood. Bandaids removed. Skin tears cleansed with NS and redressed with Telfa/Kerlex wrap
[2023-03-09] MEDS: meropenem 1,000 MG in sodium chloride 0.9% (plus) 50 ML 100 MG IV ×3 (03:32→20:08)
[2023-03-09] MEDS: enoxaparin 120 mg/0.8 mL Syringe 115 MG SUBCUT ×2 (03:32→14:08)
[2023-03-09] MEDS: pantoprazole DR 40 mg Tablet PO (05:07)
[2023-03-09] MEDS: citalopram 20 mg Tablet 10 MG PO (05:07)
[2023-03-09 06:04] LABS: Glucose Point of Care 227 mg/dL (70-110)
[2023-03-09] MEDS: bumetanide 1 mg Tablet PO (08:49)
[2023-03-09] MEDS: carvedilol 6.25 mg Tablet PO ×2 (08:49→17:35)
[2023-03-09] MEDS: hyDROXYzine 25 mg Capsule PO ×2 (08:49→17:35)
[2023-03-09] MEDS: insulin lispro 100 unit/1 mL SUBCUT ×3 (09:28→21:44)
[2023-03-09] MEDS: potassium chloride premix 100 ML 25 MEQ IV (10:15)
[2023-03-09] MEDS: FUROsemide 10 mg/mL SDV 10mL 60 MG IVP (10:28)
[2023-03-09 11:18] LABS: Glucose Point of Care 132 mg/dL (70-110)
[2023-03-09 11:47] LABS: SARS Covid-2 Antigen negative (Negative)
--- NOTE | 2023-03-09 12:20 | PC.SOCIAL ---
IMM Updated Updated pt's , Becca on IMM. No questions voiced. Provided pt a copy. Initialed, dated, & timed copy in chart.
[2023-03-09] MEDS: nystatin powder 15 gm Btl 1 APPLIC TOPICAL (17:35)
[2023-03-09 17:44] LABS: Glucose Point of Care 259 mg/dL (70-110)
[2023-03-09] MEDS: atorvastatin 40 mg Tablet PO (17:55)
--- NOTE | 2023-03-09 18:14 | P.PN_ITS ---
Subjective Subjective: patient is lethargic this morning, also noted on exam b/l crepts and tachypnea Medications: Reviewed: Yes Vitals/I&O/Wt Last Vital Signs Temp 97.4 F L 03/09/23 12:00 Pulse 120 H 03/09/23 14:00 Resp 18 03/09/23 12:00 BP 131/73 03/09/23 12:00 Pulse Ox 96 03/09/23 12:00 O2 Del Method Room Air 03/09/23 12:00 O2 Flow Rate 2 03/08/23 07:25 03/09/23 03/09/23 03/09/23 06:59 14:59 22:59 Intake Total 200 / 1820 630 / 630 Balance 200 / 1820 630 / 630 Weight last 48 hrs Weight 113.716 kg Weight 114.714 kg Physical Exam Narrative: General: No acute distress, lethargic, does not wish to get out of bed HEENT: PERRLA, pupils bilaterally equal and reactive, pallors not present Chest: B/L crepts on auscultation CVS: S1-S2 regular, no murmurs, no tachycardia, no gallops, no rubs Abdomen: Soft, nontender, no organomegaly, bowel sounds present Urinary Catheter Management: Arriola Latex: Cath Placed During This Visit: yes, but has since been removed by the nurse Reason for Continuing Indwelling Catheter: Decision to DC Catheter Urinary Catheter Date of Insertion: 03/05/23 Urinary Catheter Time of Insertion: 09:22 Date Urinary Catheter Removed: 03/06/23 Time Urinary Catheter Discontinued: 16:16 Data 03/08/23 11:06 03/08/23 11:06 Micro: Microbiology 03/07/23 06:12 Blood Culture - Preliminary Blood 03/07/23 06:05 Blood Culture - Preliminary Blood A&P Assessment and plan (1) Recurrent UTI: (2) Nephrolithiasis: (3) Diabetes: (4) Atrial fibrillation: (5) Chronic anticoagulation: (6) Aortic stenosis: (7) Body mass index [BMI] 38.0-38.9, adult: (8) Acute cystitis: (9) UTI (urinary tract infection): (10) Cholecystitis: Plan 67 year old male with past medical history of chronic recurrent UTI with ESBL presented to the hospital today for complaint of hematuria and flank pain, patient also had recent episode of acute cholecystitis Assessment: #Sepsis secondary to UTI: Patient currently meets sepsis criteria as he has fever, elevated white cell count, relative hypotension which has responded to cautious IV hydration. Sepsis is now resolved. Urine culture showing ESBL E. coli Currently patient is on meropenem, plan to transition therapy to ertapenem 1 g IV every 24 hours for the next 10 to 14 days for complicated UTI Patient has now undergone lithotripsy and stent placement for a right l ongstanding renal calculus with Dr. Berkowitz. Hopefully now with treatment of this stone patient's recurrent bouts of UTI may improve. He has failed outpatient attempts at chronic suppression with fosfomycin. With the fosfomycin multiple gram-negative's and that he is to be seen in 2020 have been suppressed with the exception of Klebsiella ESBL. This may be related to antibiotic resistance. Unfortunately susceptibilities for fosfomycin were never able to be obtained from send out labs and spite of multiple attempts. Given multiple breakthrough infections, we will discontinue fosfomycin supp ression at discharge. For now we will plan to use ertapenem until his next planned urological interv ention for stent removal within the next 10 to 14 days. Thereafter we will likely plan on chronic suppression with doxycycline 100 mg p.o. twice daily if patient able to tolerate. Based on most recent susceptibility testing Klebsiella isolate appears to be susceptible to tetracyclines. Picc line ordered today #Rhodococcus equi blood culture reported positive today: No clinical correlate to suggest a Rhodococcus infection in this patient. He does not have any historical risk factors for the same. Suspect this to be a contaminant reported out of 1 out of 4 cultures. Will verify with 5to1 tomorrow. Would not add vancomycin at this time Repeat blood cultures tomorrow. 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 He is on chronic suppression with amoxicillin since that time. Uncertain about the organism at that time, however given amoxicillin suppression suspect this may have been Staph aureus. We will request records from [facility] infectious disease where patient was followed previously. Per he gets an annual DANIAL with [facility] [place]- last perfromed over one year ago- no evidence of vegetations. #s/p Planned cholecystectomy : tolerated well. No active issues. #Afib, rate controlled #Chronic AC however held for surgery, will resume once hematuria resolves. On chronic A/c for h/o recurrent CVA per , CVA not thought to be related to septic embolization from endocarditis #HTN: Uncontrolled , add hydralazine #Gout #Liver cirhossis #RA #Chronic CHF with reduced EF: hold iv fluids, currently euvolemic. Plan for today 03/09: Patient appears to be more lethargic, not willing to participate with PT which she was doing earlier. Noted to be fluid overloaded on exam. Of note he was getting IV fluid resuscitation which has now been stopped. He does have a history of heart failure. lasix 40mg iv today. ABG WNL, CT head no new changes, Hb stable, no fever. Rpt blood cx negative from 03/07 Attestations Medical Necessity Statement*: iv diuresis today, encourage ambulation Coding Level of Care Code Acute Code for [facility] Fwd Diagnoses Recurrent UTI N39.0 Nephrolithiasis N20.0 Diabetes E11.9 Atrial fibrillation I48.91 Chronic anticoagulation Z79.01 Aortic stenosis I35.0 Body mass index [BMI] 38.0-38.9, adult Z68.38 Acute cystitis N30.00 UTI (urinary tract infection) N39.0 Cholecystitis K81.9
[2023-03-09] MEDS: aspirin 81 mg EC Tablet PO (20:08)
[2023-03-09 21:25] LABS: Glucose Point of Care 254 mg/dL (70-110)
[2023-03-09] MEDS: insulin glargine 100 units/1 mL 25 UNIT SUBCUT (21:44)
--- NOTE | 2023-03-09 23:46 | PC.NURSE ---
POSITIONING/WEDGE Pt wants to continuously lay on more on his left side. Large abdomen lays over to left side of abdomen and is becoming quite reddened. Wedge used to get pt positioned to where some of the abd pressure is off the L. Interdry placed under abd fold
[2023-03-10] MEDS: enoxaparin 120 mg/0.8 mL Syringe 115 MG SUBCUT (02:46)
[2023-03-10 03:23] VITALS: BP 123/54; PULSE 102; RESP 22; TEMP 36.8; O2SAT 96
[2023-03-10] MEDS: meropenem 1,000 MG in sodium chloride 0.9% (plus) 50 ML 100 MG IV ×2 (03:58→13:45)
[2023-03-10 05:54] VITALS: PULSE 93
[2023-03-10] MEDS: citalopram 20 mg Tablet 10 MG PO (06:14)
[2023-03-10] MEDS: pantoprazole DR 40 mg Tablet PO (06:15)
[2023-03-10 06:58] LABS: Glucose Point of Care 183 mg/dL (70-110)
[2023-03-10 07:58] VITALS: PULSE 92; RESP 18; O2SAT 98
[2023-03-10 08:00] VITALS: BP 136/74
[2023-03-10] MEDS: carvedilol 6.25 mg Tablet PO (08:21)
[2023-03-10] MEDS: hyDROXYzine 25 mg Capsule PO (08:21)
[2023-03-10] MEDS: bumetanide 1 mg Tablet PO (08:22)
[2023-03-10] MEDS: insulin lispro 100 unit/1 mL SUBCUT (08:22)
[2023-03-10 11:39] LABS: Glucose Point of Care 128 mg/dL (70-110)
[2023-03-10 11:59] LABS: Basophils # 0.1 10^3/uL (0.0-0.1); Basophils % 0.5 %; Eosinophils # 0.3 10^3/uL (0.0-0.8); Eosinophils % 3.3 %; Hematocrit 34.4 % (42.0-52.0); Hemoglobin 10.2 g/dL (11.7-16.6); Lymphocytes # 1.7 10^3/uL (0.8-4.8); Lymphocytes % 17.8 %; Mean Corpuscular HGB Conc 29.7 g/dL (30.0-36.0); Mean Corpuscular Hemoglobin 16.4 pg (28.0-34.0); Mean Corpuscular Volume 55.2 fl (80-94); Monocytes % 9.8 %; Neutrophils # 6.68 10^3/uL (1.8-7.7); Neutrophils % 68.1 %; Nucleated Red Blood Cells % 0 %; Platelet Count 257 10^3/cmm (130-400); Red Blood Count 6.23 10^6/uL (4.1-5.3); Red Cell Distribution Width 19.7 % (12.1-15.1); White Blood Count 9.8 10^3/uL (4.0-10.0)
[2023-03-10 12:00] VITALS: BP 110/60; PULSE 85; RESP 16; TEMP 36.7; O2SAT 94
[2023-03-10 12:10] LABS: Ammonia 40 umol/L (16-60)
[2023-03-10 12:11] LABS: Alanine Aminotransferase 14 U/L (0-41); Albumin Level 2.6 g/dL (3.5-5.2); Alkaline Phosphatase 62 U/L (40-130); Anion Gap 11.1 (5-19); Aspartate Amino Transferase 13 U/L (0-40); Blood Urea Nitrogen 29 mg/dL (8-23); Calcium 8.4 mg/dL (8.5-10.5); Carbon Dioxide 33 mmol/L (22-29); Chloride 96 mmol/L (98-107); Globulin 2.9 g/dL (1.3-4.6); Glomerular Filtration Rate 111.8 mL/min (90-130); Glucose 116 mg/dL (65-115); Osmolality Calculated 291 mOsm/kg (285-295); Potassium 3.1 mmol/L (3.5-5.1); Sodium 137 mmol/L (136-145); Total Protein 5.5 g/dL (6.6-8.7)
[2023-03-10] MEDS: nystatin powder 15 gm Btl 1 APPLIC TOPICAL (13:35)
--- NOTE | 2023-03-10 15:01 | P.DS_ITS ---
Discharge Providers Date of Admission: 03/02/23 06:08 Date of Discharge: March 30, 2023 Attending Provider at Admission: Micheline Carey MD Attending Provider at Discharge: Anjana Downing MD Primary Care Provider: ALTAF Russell Diagnoses at Discharge Discharge Diagnosis (1) Recurrent UTI: Status: Acute (2) Nephrolithiasis: Status: Acute (3) Diabetes: Status: Acute (4) Atrial fibrillation: Status: Acute (5) Chronic anticoagulation: Status: Acute Permanent problem details: coumadin (6) Aortic stenosis: Status: Acute Permanent problem details: Had TAVR replacement 2017 (7) Body mass index [BMI] 38.0-38.9, adult: Status: Chronic (8) Acute cystitis: Status: Acute (9) UTI (urinary tract infection): Status: Acute (10) Cholecystitis: Status: Acute Reason for Visit Reason for Visit: blood in urine low back pain Hospital Course Hospital Course 67 year old male with past medical history of chronic recurrent UTI with ESBL presented to the hospital on 03/02 for complaint of hematuria and flank pain, patient also had? recent episode of acute cholecystitis He was admitted and manageed for the following: #Sepsis secondary to UTI: Patient currently meets sepsis criteria as he has fever, elevated white cell count, relative hypotension which has responded to cautious IV hydration.? Sepsis is now resolved. Urine culture showing ESBL E. coli Currently patient is on meropenem, transitioned to ertapenem 1 g IV every 24 hours at discharge until urology follow up. Patient has now undergone lithotripsy and stent placement for a right longstanding renal calculus with Dr. Michelle. Hopefully now with treatment of this stone patient's recurrent bouts of UTI may improve. He has failed outpatient attempts at chronic suppression with fosfomycin.? With the fosfomycin multiple gram-negative's and that he is to be seen in 2020 have been suppressed with the exception of Klebsiella ESBL.? This may be related to antibiotic resistance.? Unfortunately susceptibilities for fosfomycin were never able to be obtained from send out labs and spite of multiple attempts. Given multiple breakthrough infections, we are discontinuing fosfomycin suppression at discharge. For now we will plan to use ertapenem until his next planned urological intervention for stent removal within the next 10 to 14 days. Thereafter we will likely plan on chronic suppression with doxycycline 100 mg p.o. twice daily if patient able to tolerate.? Based on most recent susceptibility testing Klebsiella isolate appears to be susceptible to tetracyclines. Picc line placed #Susan white blood cultur 11/23., likely contaminant: : No clinical correlate to suggest a Rhodococcus infection in this patient.? He does not have any historical risk factors for the same.? 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 He is on chronic suppression with amoxicillin since that time.?Records reviewed This will continue #s/p Planned cholecystectomy : tolerated well. No active issues. #Afib, rate controlled #Chronic AC ,at discharge patient discharged on lovenox until urology follow up. Once stent has been removed, he may go back on warfarin # significant deconditioing during hospital admission: Transitioned to SNF at discharge #HTN: now controlled #Gout #Liver cirhossis #RA #Chronic CHF with reduced EF: currently euvolemic at discharge. Physical Exam Narrative: General: No acute distress, AO x3 HEENT: PERRLA, pupils bilaterally equal and reactive, pallors not present Chest: Normal vesicular breath sounds, no added sounds, equal good air entry bilaterally CVS: S1-S2 regular, no murmurs, no tachycardia, no gallops, no rubs Abdomen: Soft, nontender, no organomegaly, bowel sounds present Neuro: No focal deficits, no facial deformity, AO x3, power 5/5 in all limbs Urinary Catheter Management: Arriola Latex: Cath Placed During This Visit: yes, but has since been removed by the nurse Reason for Continuing Indwelling Catheter: Decision to DC Catheter Urinary Catheter Date of Insertion: 03/05/23 Urinary Catheter Time of Insertion: 09:22 Date Urinary Catheter Removed: 03/06/23 Time Urinary Catheter Discontinued: 16:16 Discharge Data Studies Completed and Pending Completed Studies During Hospitalization Category Date Time Status CT abdomen renal stone [CT kidney stone 77541] Stat Cat Scan 03/02/23 00:[address] head wo con* [id number] Stat Cat Scan 03/07/23 14:24 Completed CXRP [XR chest 1V portable [id number]] Stat Exams 03/07/23 14:24 Completed XR KUB [id number] Routine Exams 03/02/23 06:25 Completed XR abdomen 1V* [id number] Routine Exams 03/07/23 14:24 Completed XR chest 1V portable [id number] Routine Exams 03/02/23 12:42 Completed Blood Cultures ([facility]) Routine Lab 03/07/23 06:05 Completed Blood Cultures ([facility]) Routine Lab 03/07/23 06:12 Completed Pathology: Surgical [PTH] Routine Pth 03/05/23 10:20 Completed Radiology Impressions Abdomen/Pelvis CT 03/02/23 00:59 IMPRESSION: 1. From 01/04/2023, no significant change. 2. No small bowel obstruction, abscess or free air. 3. Unchanged right proximal ureteral calculus causing no significant obstruction. Other tiny kidney stones, chronic renal lesions, etc. 4. Redemonstrated fat containing umbilical hernia with adjacent periumbilical superficial soft tissue edema versus cellulitis/panniculitis. COMMENTS: Consistent with the [employer]'s Incidental Findings Committee white paper (J Am Frances Radiol 2018): Any incidental renal lesion less than 1 cm or classified as too small to characterize, or any incidental cystic renal lesion characterized as simple-appearing, is likely benign. No follow-up imaging is recommended for these lesions per consensus recommendations based on imaging criteria. KUB X-Ray 03/02/23 06:25 IMPRESSION: Previous study demonstrated a right renal calculus which is not clearly delineated on the current study perhaps due to motion artifact and the bowel pattern which is suggesting developing ileus.. C-Arm Fluoroscopy 03/04/23 10:43 Impression: Insertion of right ureteral stent. Abdomen X-Ray 03/07/23 14:24 Impression: Minimal generalized ileus. Chest X-Ray 03/07/23 14:24 Impression: 1. Cardiomegaly and atherosclerosis. 2. Artificial cardiac valve. Head CT 03/07/23 14:24 IMPRESSION: 1. No acute intracranial hemorrhage or edema. 2. Cerebral and cerebellar atrophy and advanced small vessel ischemic disease with prior infarcts as described above. No evidence for an acute infarct or sulcal effacement. Laboratory Results WBC 9.8 10^3/uL (4.0-10.0) 03/10/23 11:39 RBC 6.23 10^6/uL (4.1-5.3) H 03/10/23 11:39 Hgb 10.2 g/dL (11.7-16.6) L 03/10/23 11:39 Hct 34.4 % (42.0-52.0) L 03/10/23 11:39 MCV 55.2 fl (80-94) L 03/10/23 11:39 MCH 16.4 pg (28.0-34.0) L 03/10/23 11:39 MCHC 29.7 g/dL (30.0-36.0) L 03/10/23 11:39 RDW 19.7 % (12.1-15.1) H 03/10/23 11:39 Plt Count 257 10^3/cmm (130-400) 03/10/23 11:39 MPV Not Reportable 03/10/23 11:39 Neut % (Auto) 68.1 % 03/10/23 11:39 Lymph % (Auto) 17.8 % 03/10/23 11:39 Schuyler % (Auto) 9.8 % 03/10/23 11:39 Eos % (Auto) 3.3 % 03/10/23 11:39 Baso % (Auto) 0.5 % 03/10/23 11:39 Neut # (Auto) 6.68 10^3/uL (1.8-7.7) 03/10/23 11:39 Lymph # (Auto) 1.7 10^3/uL (0.8-4.8) 03/10/23 11:39 Schuyler # (Auto) 1.0 10^3/uL (0.2-0.9) H 03/10/23 11:39 Eos # (Auto) 0.3 10^3/uL (0.0-0.8) 03/10/23 11:39 Baso # (Auto) 0.1 10^3/uL (0.0-0.1) 03/10/23 11:39 Nucleated RBC % (auto) 0 % 03/10/23 11:39 Total Counted 100 (0-100) 03/04/23 03:05 Atypical Lymphs % 0.0 % (0-5) 03/04/23 03:05 Absolute Neutrophils 9.9 10^3/cmm (1.4-6.5) H 03/04/23 03:05 Segmented Neutrophils 83 % 03/04/23 03:05 Abs Segm Neuts (Man) 9.9 10/cmm (1.6-7.1) H 03/04/23 03:05 Band Neutrophils 0.0 % 03/04/23 03:05 Abs Band Neuts (Man) 0.0 10^3/cmm (0.0-1.2) 03/04/23 03:05 Absolute Lymphocytes 1.8 10^3/cmm (1.2-3.4) 03/04/23 03:05 Lymphocytes (Manual) 15 % 03/04/23 03:05 Monocytes (Manual) 1.0 % 03/04/23 03:05 Absolute Monocytes 0.1 10^3/cmm (0.1-0.6) 03/04/23 03:05 Eosinophils (Manual) 1 % 03/04/23 03:05 Absolute Eosinophils 0.1 10^3/cmm (0.0-0.7) 03/04/23 03:05 Basophils (Manual) 0.0 % 03/04/23 03:05 Absolute Basophils 0.0 10^3/cmm (0.0-0.2) 03/04/23 03:05 Nucleated RBCs # 0.0 /100WBC 03/10/23 11:39 Platelet Estimate Normal (Normal) 03/04/23 03:05 Hypochromasia 2+ H 03/04/23 03:05 Poikilocytosis 1+ H 03/04/23 03:05 Anisocytosis 1+ H 03/04/23 03:05 Macrocytosis 2+ H 03/04/23 03:05 Target Cells 1+ H 03/04/23 03:05 Alleman Cells 1+ H 03/04/23 03:05 Schistocytes 1+ H 03/04/23 03:05 PT 15.80 SECONDS (12.1-14.9) H 03/02/23 04:47 INR 1.22 (0.8-1.2) H 03/02/23 04:47 APTT 39.0 SECONDS (23.9-36.7) H 03/04/23 17:53 Specimen Type Arterial 03/07/23 15:00 Sample Site Brachial, left 03/07/23 15:00 ABG pH 7.41 (7.35-7.45) 03/07/23 15:00 ABG pCO2 48.9 mmHg (35-45) H 03/07/23 15:00 ABG pO2 60.3 mmHg (80.0-100.0) L 03/07/23 15:00 ABG HCO3 30.9 mmol/L (22-26) H 03/07/23 15:00 ABG Base Excess 5.4 mmol/L (-2.0-2.0) H 03/07/23 15:00 Matteo Test N/a 03/07/23 15:00 Hematocrit 34.4 % (42-52) L 03/07/23 15:00 O2 Delivery Device Room air 03/07/23 15:00 Pattern Changer ID Gd 03/07/23 15:00 Sodium 137 mmol/L (136-145) 03/10/23 11:39 Potassium 3.1 mmol/L (3.5-5.1) L 03/10/23 11:39 Chloride 96 mmol/L (98-107) L 03/10/23 11:39 Carbon Dioxide 33 mmol/L (22-29) H 03/10/23 11:39 Anion Gap 11.1 (5-19) 03/10/23 11:39 BUN 29 mg/dL (8-23) H 03/10/23 11:39 Creatinine 0.7 mg/dL (0.7-1.2) 03/10/23 11:39 GFR Calculation 111.8 mL/min (90-130) 03/10/23 11:39 Glucose 116 mg/dL (65-115) H 03/10/23 11:39 POC Glucose 128 mg/dL (70-110) H 03/10/23 11:31 Calculated Osmolality 291 mOsm/kg (285-295) 03/10/23 11:39 Lactic Acid 1.3 mmol/L (0.5-2.2) 03/02/23 04:09 Lactate 1.7 mmol/L (0.5-2.2) 03/01/23 21:01 Calcium 8.4 mg/dL (8.5-10.5) L 03/10/23 11:39 Total Bilirubin 1.0 mg/dL (0.15-1.2) 03/10/23 11:39 AST 13 U/L (0-40) 03/10/23 11:39 ALT 14 U/L (0-41) 03/10/23 11:39 Alkaline Phosphatase 62 U/L (40-130) 03/10/23 11:39 Ammonia 40 umol/L (16-60) 03/10/23 11:39 Total Protein 5.5 g/dL (6.6-8.7) L 03/10/23 11:39 Albumin 2.6 g/dL (3.5-5.2) L 03/10/23 11:39 Globulin 2.9 g/dL (1.3-4.6) 03/10/23 11:39 Procalcitonin 0.09 ng/mL (0-0.5) 03/01/23 21:01 Random Cortisol 44.52 ug/dL (2.47-19.5) H 03/03/23 01:42 Urine Color Yellow (Yellow) 03/02/23 00:31 Urine Appearance Cloudy (CLEAR) A 03/02/23 00:31 Urine pH 5 (5-7) 03/02/23 00:31 Ur Specific P[place]oy 1.010 (1.005-1.030) 03/02/23 00:31 Urine Protein Trace (Negative) 03/02/23 00:31 Urine Glucose (UA) Norm (Normal) 03/02/23 00:31 Urine Ketones Negative (Negative) 03/02/23 00:31 Urine Blood 3+ (Negative) H 03/02/23 00:31 Urine Nitrate Positive (Negative) H 03/02/23 00:31 Urine Bilirubin Neg (Negative) 03/02/23 00:31 Urine Urobilinogen Norm mg/dL (Negative) 03/02/23 00:31 Ur Leukocyte Esterase 2+ (Negative) H 03/02/23 00:31 Urine RBC 5-10 /hpf (0-2) H 03/02/23 00:31 Urine WBC >100 /hpf (0-5) H 03/02/23 00:31 Ur Squamous Epith Cells 0-4 /hpf (0-5) H 03/02/23 00:31 Amorphous Sediment Not Reportable 03/02/23 00:31 Urine Bacteria 4+ /hpf (NONE) H 03/02/23 00:31 Vancomycin Trough 29.4 ug/mL (10-15) H* 03/04/23 23:22 SARS-CoV-2 Ag (Rapid) negative (Negative) 03/09/23 11:10 Vitals Last Vital Signs Temp 98.1 F 03/10/23 12:00 Pulse 85 03/10/23 12:00 Resp 16 03/10/23 12:00 BP 110/60 03/10/23 12:00 Pulse Ox 94 03/10/23 12:00 O2 Del Method Room Air 03/10/23 12:00 O2 Flow Rate 2 03/08/23 07:25 Discharge Plan Discharge Patient Disposition: Xfer SNF Condition: Stable Prescriptions: New doxycycline hyclate 100 mg tablet 100 mg PO BID 28 Days Qty: 56 2RF Rx Instructions: chronic suppression, to start once off iv ertapenem Continued citalopram [Celexa] 10 mg tablet 10 mg PO QAM carvedilol 6.25 mg tablet 6.25 mg PO BID Hold Instructions: Resume on 11/23/22. potassium chloride 20 mEq Tablet Extended Release 20 meq PO DAILY Hold Instructions: see pcp pantoprazole [Protonix] 40 mg Tablet,Delayed Release (Dr/Ec) 40 mg PO DAILY@06 aspirin 81 mg Tablet,Delayed Release (Dr/Ec) 81 mg PO BEDTIME Rx Instructions: ON HOLD FOR PROCEDURE Florajen Acidophilus 20 billion cell Capsule 20,000 mmu cells PO BEDTIME PNV cmb#95-ferrous fumarate-FA [ Multivitamins] 28 mg iron- 800 mcg Tablet 1 tab PO DAILY@06 atorvastatin 40 mg tablet 40 mg PO DAILY@19 ascorbic acid (vitamin C) [Vitamin C] 500 mg Tablet 500 mg PO QPM nitroglycerin [Nitrostat] 0.4 mg Tablet, Sublingual 0.4 mg SUBLINGUAL Q5M PRN (Reason: Chest Pain) Rx Instructions: do not exceed 3 doses per episode hydroxyzine pamoate 25 mg capsule 25 mg PO BID bumetanide 2 mg tablet 1 mg PO DAILY Qty: 60 0RF Changed Lantus Solostar U-100 Insulin 100 unit/mL (3 mL) insulin pen 25 unit SUBCUT BEDTIME 30 Days Qty: 15 0RF Held warfarin 1 mg tablet 6 mg PO QPM Hold Instructions: Resume on 03/13/23. to be resumed after his urologiy procedure on monday Rx Instructions: ON HOLD FOR PROCEDURE Discontinued amoxicillin-pot clavulanate 875-125 mg tablet 1 tab PO BID 14 Days Qty: 28 0RF acetaminophen 500 mg Tablet 500 mg PO Q6H PRN (Reason: Pain) fosfomycin tromethamine 3 gram packet 3 g PO Q3D 90 Days Qty: 30 4RF No Action insulin aspart U-100 [Novolog PenFill U-100 Insulin] 100 unit/mL cartridge 10 unit SUBCUT TID enoxaparin 120 mg/0.8 mL syringe 120 mg SUBCUT Q12H ertapenem 1 gram recon soln 1 g IV DAILY cholecalciferol (vitamin D3) 25 mcg (1,000 unit) capsule 25 mcg PO DAILY Qty: 90 3RF prednisone 5 mg tablet 5 mg PO DAILY Qty: 30 3RF Discharge Orders: Discharge Order (Routine); Ordered 03/10/23 Ordered By: Anjana Downing Other Ambulatory Orders: Miscellaneous Procedure (Order) Location: None Selected Ordered By: Anjana Downing Referrals: [facility] [Outside] Billy Michelle MD [Physician] - 03/13/23 11:30 am ([facility] first Possible cystoscopy stent removal.APPOINTMENT WITH DR MICHELLE AFTER MICHELE ON MARCH 13) Gregoria Cheek FNP [Primary Care Provider] - 03/14/23 1:30 pm (APPOINTMENT WITH [facility]) Discharge Diet: Usual diet Discharge Activity: As per PT/OT instructions Patient Instructions: Opioid Safety, Post Anesthesia Care Activity Restrictions/Additional Instructions: Urology instructions: 1. Follow-up next week with [facility] and if it looks like there is no residual fragments of any concern we will plan on taking the stent out in the office. 2. It will be common to see blood in the urine related to the stent. Urgency, frequency, flank pain with voiding are also very common side effects related to the stent and they all tend to resolve once the stent is removed. Discharge Attestations Time Spent in Discharge Care*: greater than 30 min Status at Discharge: Cognitive status at discharge: cognitively intact , Behavioral status at discharge: cooperative , Quality Metrics Clinical Quality Measures [ No reported AMI, CVA or VTE this stay] Coding Level of Care Code Acute Code for [facility] Fwd Diagnoses Recurrent UTI N39.0 Nephrolithiasis N20.0 Diabetes E11.9 Atrial fibrillation I48.91 Chronic anticoagulation Z79.01 Aortic stenosis I35.0 Body mass index [BMI] 38.0-38.9, adult Z68.38 Acute cystitis N30.00 UTI (urinary tract infection) N39.0 Cholecystitis K81.9
== END 2023-03-10 15:10 | disposition skilled nursing facility (03) | DRG 854 ==
LOC: ER 03-02 02:35 → ER IP 03-02 05:53 → GILAB 03-02 06:22 → ER 03-02 08:01 → MEDSURG 03-02 08:11
PROVIDERS: Internal Medicine; Surgery; Urology; Admitting Provider Internal Medicine; Emergency Provider Emergency Medicine; PCP Nurse Practitioner Family; Visit Provider Student in an Organized Health Care Education/Training Program
PROC: 0FT44ZZ Resection of Gallbladder, Percutaneous Endoscopic Approach (ICD-10-PCS; CPT 47562; principal; 2023-03-02 07:00)
PROC: 0TJB8ZZ Inspection of Bladder, Via Natural or Artificial Opening Endoscopic (ICD-10-PCS; CPT 52000; 2023-03-02 07:00)
PROC: (CPT 50605; 2023-03-02 07:00)
PROC: 0TJ98ZZ Inspection of Ureter, Via Natural or Artificial Opening Endoscopic (ICD-10-PCS; CPT 52351; 2023-03-02 07:00)
PROC: 0T768DZ Dilation of Right Ureter with Intraluminal Device, Via Natural or Artificial Opening Endoscopic (ICD-10-PCS; CPT 50605; principal; 2023-03-05 08:00)
PROC: 0TJ98ZZ Inspection of Ureter, Via Natural or Artificial Opening Endoscopic (ICD-10-PCS; CPT 52351; 2023-03-05 08:00)
PROC: 0TJB8ZZ Inspection of Bladder, Via Natural or Artificial Opening Endoscopic (ICD-10-PCS; CPT 52000; 2023-03-05 08:00)
PROC: 0FT44ZZ Resection of Gallbladder, Percutaneous Endoscopic Approach (ICD-10-PCS; CPT 47562; 2023-03-05 08:00)
DX: A41.51 Sepsis due to Escherichia coli [E. coli] (principal); I50.22 Chronic systolic (congestive) heart failure; Z16.12 Extended spectrum beta lactamase (ESBL) resistance; K81.0 Acute cholecystitis; N13.2 Hydronephrosis with renal and ureteral calculous obstruction; N30.21 Other chronic cystitis with hematuria; I95.9 Hypotension, unspecified; Z87.440 Personal history of urinary (tract) infections; Z95.2 Presence of prosthetic heart valve; Z79.2 Long term (current) use of antibiotics; I48.91 Unspecified atrial fibrillation; Z86.73 Personal history of transient ischemic attack (TIA), and cerebral infarction without residual deficits; I11.0 Hypertensive heart disease with heart failure; M10.9 Gout, unspecified; K74.60 Unspecified cirrhosis of liver; M06.9 Rheumatoid arthritis, unspecified; E87.70 Fluid overload, unspecified; Z87.442 Personal history of urinary calculi; F41.0 Panic disorder [episodic paroxysmal anxiety]; Z87.891 Personal history of nicotine dependence; D56.9 Thalassemia, unspecified; I27.20 Pulmonary hypertension, unspecified; G47.33 Obstructive sleep apnea (adult) (pediatric); E66.9 Obesity, unspecified; Z68.34 Body mass index [BMI] 34.0-34.9, adult; I25.5 Ischemic cardiomyopathy; E78.5 Hyperlipidemia, unspecified; E11.9 Type 2 diabetes mellitus without complications; F03.90 Unspecified dementia, unspecified severity, without behavioral disturbance, psychotic disturbance, mood disturbance, and anxiety; Z79.82 Long term (current) use of aspirin; Z79.4 Long term (current) use of insulin; Z79.01 Long term (current) use of anticoagulants
CPT/HCPCS: 36415; 36416; 36569; 36592; 36600; 51798; 70450; 71045; 74018; 74176; 76000; 80053; 80202; 81001; 82140; 82533; 82803; 82962; 83605; 84145; 85007; 85025; 85610; 85730; 87040; 87077; 87086; 87186; 87205; 87426; 88304; 93005; 94640; 94664; 96365; 96372; 97110; 97116; 97161; 97530; 99285; C1751; C2625; J0360; J1100; J1170; J1644; J1650; J1720; J1815; J1940; J2185; J2405; J2704; J3010; J3370; J3480; J3490; J7030; J7040; J7512; Q3014; Q9967

== ENCOUNTER 2023-03-14 15:24 | Emergency (ER) | payer MEDICARE, OTHER, SELFPAY ==
[2023-03-14 15:27] VITALS: BP 122/81; PULSE 104; RESP 15; O2SAT 97
[2023-03-14 15:43] LABS: Glucose Point of Care 325 mg/dL (70-110)
--- NOTE | 2023-03-14 16:04 | XRR_ITS ---
PROCEDURE INFORMATION: Exam: XR Chest Exam date and time: 03/14/2023 4:24 PM Age: 67 years old Clinical indication: Cough and dyspnea; Additional info: Dyspnea/cough TECHNIQUE: Imaging protocol: Radiologic exam of the chest. Views: 1 view. COMPARISON: CR (CHEST, ) 01/13/2023 8:54 PM FINDINGS: Lungs: See Heart/Mediastinum finding. Pleural spaces: Unremarkable. No pleural effusion. No pneumothorax. Heart/Mediastinum: Cardiomegaly and mild pulmonary vascular congestion. TAVR. Bones/joints: Unremarkable. XR/XR chest 1V portable [id number] IMPRESSION: 1. Cardiomegaly and mild pulmonary vascular congestion. 2. TAVR.
--- NOTE | 2023-03-14 16:06 | ED_ITS ---
Documented by User: Raymon Boyce DO 03/15/23 07:34 HPI - Recheck/Abnormal Lab/Rx General: Chief Complaint: Recheck/Abnormal Lab/Rx Stated Complaint: HYPERGLYCEMIA Time Seen by Provider: 03/14/23 15:45 Source: patient Mode of arrival: EMS History of Present Illness: 67-year-old male who presents to the emergency room from local intermediate. Evidently he has been having some elevated blood sugar staff and been working with the attending to try to get them down and while he was referred here. He did recently have a kidney stop had a lithotripsy and a stent placed when he arrived here he told us he was having some right flank pain which evidently was not part of the report from the intermediate or from EMS. Different issue that he had not made anyone aware of before arriving here. He denies any fever sweats chills no chest pain no shortness of breath at this time. He is awake and alert and generally at his baseline which we have seen him before. MD complaint: abnormal lab (Hyperglycemia) Initial visit (ago): hour(s) Associated symptoms: none Review of Systems Const: Denies: fever(s), chills, body aches, change in appetite, fatigue or malaise ENMT: Denies: throat pain, ear or mastoid pain, nasal discharge or nasal congestion Card: Denies: chest pain, edema, dyspnea on exertion or orthopnea Resp: Denies: dyspnea, productive cough or non-productive cough GI: Denies: abdominal pain, nausea, vomiting, hematemesis, coffee ground emesis, diarrhea, constipation, bloating, hematochezia or melena : Reports: flank pain; Denies: dysuria, urinary frequency or urinary urgency Skin/Breast: Denies: rash or pruritus PFS ED PFSH: Medical History Acute cystitis Altered mental status Aortic stenosis Had TAVR replacement 2017 Atrial fibrillation Atrial fibrillation with slow ventricular response Bilateral renal masses CHF (congestive heart failure) EF 45 by transesophageal echo January 2019 Chronic antibiotic suppression Chronic anticoagulation coumadin Chronic cystitis Chronic urinary tract infection, suppressed Chronic use of steroids Complex renal cyst Congestive heart failure CVA (cerebral vascular accident) Dementia Diabetes Dyslipidemia Endocarditis history of chronic viridans endocarditis, 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 Essential hypertension Gout High risk medication use arava and chronic steroids 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 Hx of [place] spotted fever Ischemic cardiomyopathy Left ventricular hypertrophy Liver cirrhosis Obesity AJAY (obstructive sleep apnea) Pre-syncope Pulmonary HTN Pyelonephritis of right kidney Recurrent UTI Multidrug-resistant organisms Renal calculi Restrictive lung disease Rheumatoid arthritis Rheumatoid arthritis Shoulder pain Skin lesion Syncope Syncope and collapse Thalassemia Urinary tract infection due to ESBL Klebsiella Surgical History H/O lithotripsy S/P TAVR (transcatheter aortic valve replacement) (~2018) Family History Mother Stroke Father Myocardial infarction Other CAD (coronary artery disease) Chronic kidney disease (CKD) Diabetes Hypertension Social History Smoking and tobacco status: former smoker Quit status (tobacco): has quit using tobacco Year quit tobacco: 2019 - Chewing Tobacco Former quit date comment: Hx of 1/2 can x 50 Years Second hand smoke exposure: No Alcohol intake: former Substance/Drug Use: never Lives independently: No Household members: spouse Marital status: Current occupational status: retired and disabled Do you think of yourself as: Straight/Heterosexual Current gender identity: Male Physical Exam Const: GENERAL APPEARANCE: cooperative and comfortable ORIENTATION/CONSCIOUSNESS: Yes awake HENMT: COMMON NORMALS: normocephalic, atraumatic and hearing grossly normal bilaterally HEAD & SCALP: normocephalic and atraumatic Resp: COMMON NORMALS: normal respiratory effort, No retractions, No use of accessory muscles and clear to auscultation bilaterally AUSCULTATION: clear to auscultation bilaterally Cardio: COMMON NORMALS: regular rate, regular rhythm and No murmurs present ( Cardio) RATE: regular rate RHYTHM: regular rhythm GI: COMMON NORMALS: Soft to palpation and No hepatosplenomegaly present AUSCULTATION: Yes normoactive bowel sounds PALPATION: Yes Soft to palpation, No Tenderness to palpation present (GI), No Guarding due to palpation present (GI) and Yes No hepatosplenomegaly present Extremity: COMMON NORMALS: normal to inspection, capillary refill normal, no clubbing, cyanosis or edema, no calf tenderness and no pedal edema Skin: COMMON NORMALS: no rashes or lesions noted GENERAL SKIN EXAM: no rashes or lesions noted Course Vital Signs: Vital signs: Vital Signs Pulse Rate 85 03/14/23 19:58 Respiratory Rate 15 03/14/23 15:27 Blood Pressure 160/92 03/14/23 19:58 Pulse Oximetry 92 03/14/23 19:58 Oxygen Delivery Me thod Room Air 03/14/23 18:30 MDM - Recheck/Abnormal Lab/Rx Medical Decision Making Labs pending, particularly UA. Care signed out to Dr. Smith at change of shift. See final notes for diagnosis and disposition. Patient presents with hyperglycemia blood work here is all normal besides hyperglycemia blood sugar has improved here he is stable for discharge back to the intermediate. Lab Data 03/14/23 16:22 03/14/23 16:22 Radiology Impressions Chest X-Ray 03/14/23 16:04 IMPRESSION: 1. Cardiomegaly and mild pulmonary vascular congestion. 2. TAVR. Laboratory Results WBC 11.3 10^3/uL (4.0-10.0) H 03/14/23 16:22 RBC 6.13 10^6/uL (4.1-5.3) H 03/14/23 16: Hgb 10.0 g/dL (11.7-16.6) L 03/14/23 16: Hct 35.0 % (42.0-52.0) L 03/14/23 16:22 MCV 57.1 fl (80-94) L 03/14/23 16: MCH 16.3 pg (28.0-34.0) L 03/14/23 16:22 MCHC 28.6 g/dL (30.0-36.0) L 03/14/23 16: RDW 19.8 % (12.1-15.1) H 03/14/23 16:22 Plt Count 293 10^3/cmm (130-400) 03/14/23 16:22 MPV 10.0 fL (7.4-10.4) 03/14/23 16: Neut % (Auto) 81.0 % 03/14/23 16: Lymph % (Auto) 12.3 % 03/14/23 16: Rogers % (Auto) 4.4 % 03/14/23 16:22 Eos % (Auto) 1.3 % 03/14/23 16:22 Baso % (Auto) 0.7 % 03/14/23 16: Neut # (Auto) 9.13 10^3/uL (1.8-7.7) H 03/14/23 16:22 Lymph # (Auto) 1.4 10^3/uL (0.8-4.8) 03/14/23 16:22 [place] # (Auto) 0.5 10^3/uL (0.2-0.9) 03/14/23 16:22 Eos # (Auto) 0.2 10^3/uL (0.0-0.8) 03/14/23 16:22 Baso # (Auto) 0.1 10^3/uL (0.0-0.1) 03/14/23 16: Nucleated RBC % (auto) 0 % 03/14/23 16: Nucleated RBCs # 0.0 /100WBC 03/14/23 16:22 Sodium 135 mmol/L (136-145) L 03/14/23 16:22 Potassium 4.3 mmol/L (3.5-5.1) 03/14/23 16:22 Chloride 96 mmol/L (98-107) L 03/14/23 16:22 Carbon Dioxide 26 mmol/L (22-29) 03/14/23 16:22 Anion Gap 17.3 (5-19) 03/14/23 16:22 BUN 26 mg/dL (8-23) H 03/14/23 16:22 Creatinine 1.0 mg/dL (0.7-1.2) 03/14/23 16:22 GFR Calculation 74.1 mL/min (90-130) L 03/14/23 16:22 Glucose 322 mg/dL (65-115) H 03/14/23 16:22 POC Glucose 260 mg/dL (70-110) H 03/14/23 19:38 Calculated Osmolality 297 mOsm/kg (285-295) H 03/14/23 16:22 Calcium 8.8 mg/dL (8.5-10.5) 03/14/23 16:22 Total Bilirubin 0.5 mg/dL (0.15-1.2) 03/14/23 16:22 AST 54 U/L (0-40) H 03/14/23 16:22 ALT 55 U/L (0-41) H 03/14/23 16:22 Alkaline Phosphatase 88 U/L (40-130) 03/14/23 16:22 Total Protein 6.3 g/dL (6.6-8.7) L 03/14/23 16: Albumin 3.0 g/dL (3.5-5.2) L 03/14/23 16: Globulin 3.3 g/dL (1.3-4.6) 03/14/23 16:22 Urine Color Red (Yellow) 03/14/23 17:03 Urine Appearance Cloudy (CLEAR) A 03/14/23 17:03 Urine pH 7 (5-7) 03/14/23 17:03 Ur Specific [place] 1.010 (1.005-1.030) 03/14/23 17:03 Urine Protein 1+ (Negative) H 03/14/23 17:03 Urine Glucose (UA) Trace (Normal) H 03/14/23 17:03 Urine Ketones Negative (Negative) 03/14/23 17:03 Urine Blood 3+ (Negative) H 03/14/23 17:03 Urine Nitrate Negative (Negative) 03/14/23 17:03 Urine Bilirubin Neg (Negative) 03/14/23 17:03 Urine Urobilinogen Neg mg/dL (Negative) 03/14/23 17:03 Ur Leukocyte Esterase 2+ (Negative) H 03/14/23 17:03 Urine RBC Too numerous to cnt /hpf (0-2) H 03/14/23 17:03 Urine WBC 5-10 /hpf (0-5) H 03/14/23 17:03 Ur Squamous Epith Cells None /hpf (0-5) 03/14/23 17:03 Amorphous Sediment 1+ /hpf 03/14/23 17:03 Urine Bacteria Trace /hpf (NONE) 03/14/23 17:03 Serum Ketones Negative (Negative) 03/14/23 16:22 Discharge Plan Discharge Patient Disposition: Home Clinical Impression: Hyperglycemia Condition: Stable Prescriptions: No Action citalopram [Celexa] 10 mg tablet 10 mg PO QAM carvedilol 6.25 mg tablet 6.25 mg PO BID Hold Instructions: Resume on 11/23/22. potassium chloride 20 mEq Tablet Extended Release 20 meq PO DAILY Hold Instructions: see pcp pantoprazole [Protonix] 40 mg Tablet,Delayed Release (Dr/Ec) 40 mg PO DAILY@06 aspirin 81 mg Tablet,Delayed Release (Dr/Ec) 81 mg PO BEDTIME Rx Instructions: ON HOLD FOR PROCEDURE Florajen Acidophilus 20 billion cell Capsule 20,000 mmu cells PO BEDTIME PNV cmb#95-ferrous fumarate-FA [ Multivitamins] 28 mg iron- 800 mcg Tablet 1 tab PO DAILY@06 atorvastatin 40 mg tablet 40 mg PO DAILY@19 ascorbic acid (vitamin C) [Vitamin C] 500 mg Tablet 500 mg PO QPM nitroglycerin [Nitrostat] 0.4 mg Tablet, Sublingual 0.4 mg SUBLINGUAL Q5M PRN (Reason: Chest Pain) Rx Instructions: do not exceed 3 doses per episode hydroxyzine pamoate 25 mg capsule 25 mg PO BID bumetanide 2 mg tablet 1 mg PO DAILY Qty: 60 0RF prednisone 5 mg tablet 10 mg PO QAM doxycycline hyclate 100 mg tablet 100 mg PO BID 28 Days Qty: 56 2RF Rx Instructions: chronic suppression, to start once off iv ertapenem amoxicillin-pot clavulanate 875-125 mg tablet 1 tab PO BID 30 Days Qty: 60 0RF Rx Instructions: chronic suppression, start once he is off iv ertapenem Lantus Solostar U-100 Insulin 100 unit/mL (3 mL) insulin pen 25 unit SUBCUT BEDTIME 30 Days Qty: 15 0RF warfarin 1 mg tablet 6 mg PO QPM Hold Instructions: Resume on 03/13/23. to be resumed after his urologiy proc edure on monday Rx Instructions: ON HOLD FOR PROCEDURE cholecalciferol (vitamin D3) [Vitamin D3] 125 mcg (5,000 unit) Tablet 125 mcg PO QAM Discharge Orders: Discharge ED (Routine); Ordered 03/14/23 Ordered By: Schuyler Smith Referrals: Gregoria Cheek FNP [Primary Care Provider] - 1-3 days Discharge Diet: Advance as tolerated Discharge Activity: Resume usual activity Patient Instructions: Diabetic Hyperglycemia (ED) Coding Level of Care Code ED Geographic Information Systems Director for Chg Fwd Documented by User: Schuyler Smith MD 03/14/23 20:13 HPI - Recheck/Abnormal Lab/Rx General: Chief Complaint: Recheck/Abnormal Lab/Rx Stated Complaint: HYPERGLYCEMIA Time Seen by Provider: 03/14/23 15:45 PFSH ED PFSH: Medical History Acute cystitis Altered mental status Aortic stenosis Had TAVR replacement 2017 Atrial fibrillation Atrial fibrillation with slow ventricular response Bilateral renal masses CHF (congestive heart failure) EF 45 by transesophageal echo January 2019 Chronic antibiotic suppression Chronic anticoagulation coumadin Chronic cystitis Chronic urinary tract infection, suppressed Chronic use of steroids Complex renal cyst Congestive heart failure CVA (cerebral vascular accident) Dementia Diabetes Dyslipidemia Endocarditis history of chronic viridans endocarditis, 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 Essential hypertension Gout High risk medication use arava and chronic steroids 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 Hx of [place] spotted fever Ischemic cardiomyopathy Left ventricular hypertrophy Liver cirrhosis Obesity AJAY (obstructive sleep apnea) Pre-syncope Pulmonary HTN Pyelonephritis of right kidney Recurrent UTI Multidrug-resistant organisms Renal calculi Restrictive lung disease Rheumatoid arthritis Rheumatoid arthritis Shoulder pain Skin lesion Syncope Syncope and collapse Thalassemia Urinary tract infection due to ESBL Klebsiella Surgical History H/O lithotripsy S/P TAVR (transcatheter aortic valve replacement) (~2017) Family History Mother Stroke Father Myocardial infarction Other CAD (coronary artery disease) Chronic kidney disease (CKD) Diabetes Hypertension Social History Smoking and tobacco status: former smoker Quit status (tobacco): has quit using tobacco Year quit tobacco: 2019 - Chewing Tobacco Former quit date comment: Hx of 1/2 can x 50 Years Second hand smoke exposure: No Alcohol intake: former Substance/Drug Use: never Lives independently: No Household members: spouse Marital status: Current occupational status: retired and disabled Do you think of yourself as: Straight/Heterosexual Current gender identity: Male Course Vital Signs: Vital signs: Vital Signs Pulse Rate 85 03/14/23 19:58 Respiratory Rate 15 03/14/23 15:27 Blood Pressure 160/92 03/14/23 19:58 Pulse Oximetry 92 03/14/23 19:58 Oxygen Delivery Me thod Room Air 03/14/23 18:30 MDM - Recheck/Abnormal Lab/Rx Medical Decision Making Patient presents with hyperglycemia blood work here is all normal besides hyperglycemia blood sugar has improved here he is stable for discharge back to the intermediate. Lab Data 03/14/23 16:22 03/14/23 16:22 Radiology Impressions Chest X-Ray 03/14/23 16:04 IMPRESSION: 1. Cardiomegaly and mild pulmonary vascular congestion. 2. TAVR. Laboratory Results WBC 11.3 10^3/uL (4.0-10.0) H 03/14/23 16:22 RBC 6.13 10^6/uL (4.1-5.3) H 03/14/23 16:22 Hgb 10.0 g/dL (11.7-16.6) L 03/14/23 16:22 Hct 35.0 % (42.0-52.0) L 03/14/23 16:22 MCV 57.1 fl (80-94) L 03/14/23 16:22 MCH 16.3 pg (28.0-34.0) L 03/14/23 16:22 MCHC 28.6 g/dL (30.0-36.0) L 03/14/23 16:22 RDW 19.8 % (12.1-15.1) H 03/14/23 16:22 Plt Count 293 10^3/cmm (130-400) 03/14/23 16:22 MPV 10.0 fL (7.4-10.4) 03/14/23 16:22 Neut % (Auto) 81.0 % 03/14/23 16:22 Lymph % (Auto) 12.3 % 03/14/23 16:22 Rogers % (Auto) 4.4 % 03/14/23 16: Eos % (Auto) 1.3 % 03/14/23 16:22 Baso % (Auto) 0.7 % 03/14/23 16:22 Neut # (Auto) 9.13 10^3/uL (1.8-7.7) H 03/14/23 16:22 Lymph # (Auto) 1.4 10^3/uL (0.8-4.8) 03/14/23 16:22 Rogers # (Auto) 0.5 10^3/uL (0.2-0.9) 03/14/23 16:22 Eos # (Auto) 0.2 10^3/uL (0.0-0.8) 03/14/23 16:22 Baso # (Auto) 0.1 10^3/uL (0.0-0.1) 03/14/23 16:22 Nucleated RBC % (auto) 0 % 03/14/23 16:22 Nucleated RBCs # 0.0 /100WBC 03/14/23 16:22 Sodium 135 mmol/L (136-145) L 03/14/23 16:22 Potassium 4.3 mmol/L (3.5-5.1) 03/14/23 16:22 Chloride 96 mmol/L (98-107) L 03/14/23 16:22 Carbon Dioxide 26 mmol/L (22-29) 03/14/23 16:22 Anion Gap 17.3 (5-19) 03/14/23 16:22 BUN 26 mg/dL (8-23) H 03/14/23 16:22 Creatinine 1.0 mg/dL (0.7-1.2) 03/14/23 16:22 GFR Calculation 74.1 mL/min (90-130) L 03/14/23 16:22 Glucose 322 mg/dL (65-115) H 03/14/23 16:22 POC Glucose 260 mg/dL (70-110) H 03/14/23 19:38 Calculated Osmolality 297 mOsm/kg (285-295) H 03/14/23 16:22 Calcium 8.8 mg/dL (8.5-10.5) 03/14/23 16:22 Total Bilirubin 0.5 mg/dL (0.15-1.2) 03/14/23 16:22 AST 54 U/L (0-40) H 03/14/23 16:22 ALT 55 U/L (0-41) H 03/14/23 16:22 Alkaline Phosphatase 88 U/L (40-130) 03/14/23 16:22 Total Protein 6.3 g/dL (6.6-8.7) L 03/14/23 16:22 Albumin 3.0 g/dL (3.5-5.2) L 03/14/23 16:22 Globulin 3.3 g/dL (1.3-4.6) 03/14/23 16:22 Urine Color Red (Yellow) 03/14/23 17:03 Urine Appearance Cloudy (CLEAR) A 03/14/23 17:03 Urine pH 7 (5-7) 03/14/23 17:03 Ur Specific [place] 1.010 (1.005-1.030) 03/14/23 17:03 Urine Protein 1+ (Negative) H 03/14/23 17:03 Urine Glucose (UA) Trace (Normal) H 03/14/23 17:03 Urine Ketones Negative (Negative) 03/14/23 17:03 Urine Blood 3+ (Negative) H 03/14/23 17:03 Urine Nitrate Negative (Negative) 03/14/23 17:03 Urine Bilirubin Neg (Negative) 03/14/23 17:03 Urine Urobilinogen Neg mg/dL (Negative) 03/14/23 17:03 Ur Leukocyte Esterase 2+ (Negative) H 03/14/23 17:03 Urine RBC Too numerous to cnt /hpf (0-2) H 03/14/23 17:03 Urine WBC 5-10 /hpf (0-5) H 03/14/23 17:03 Ur Squamous Epith Cells None /hpf (0-5) 03/14/23 17:03 Amorphous Sediment 1+ /hpf 03/14/23 17:03 Urine Bacteria Trace /hpf (NONE) 03/14/23 17:03 Serum Ketones Negative (Negative) 03/14/23 16:22 Discharge Plan Discharge Patient Disposition: Home Clinical Impression: Hyperglycemia Condition: Stable Prescriptions: No Action citalopram [Celexa] 10 mg tablet 10 mg PO QAM carvedilol 6.25 mg tablet 6.25 mg PO BID Hold Instructions: Resume on 11/23/22. potassium chloride 20 mEq Tablet Extended Release 20 meq PO DAILY Hold Instructions: see pcp pantoprazole [Protonix] 40 mg Tablet,Delayed Release (Dr/Ec) 40 mg PO DAILY@06 aspirin 81 mg Tablet,Delayed Release (Dr/Ec) 81 mg PO BEDTIME Rx Instructions: ON HOLD FOR PROCEDURE Florajen Acidophilus 20 billion cell Capsule 20,000 mmu cells PO BEDTIME PNV cmb#95-ferrous fumarate-FA [ Multivitamins] 28 mg iron- 800 mcg Tablet 1 tab PO DAILY@06 atorvastatin 40 mg tablet 40 mg PO DAILY@19 ascorbic acid (vitamin C) [Vitamin C] 500 mg Tablet 500 mg PO QPM nitroglycerin [Nitrostat] 0.4 mg Tablet, Sublingual 0.4 mg SUBLINGUAL Q5M PRN (Reason: Chest Pain) Rx Instructions: do not exceed 3 doses per episode hydroxyzine pamoate 25 mg capsule 25 mg PO BID bumetanide 2 mg tablet 1 mg PO DAILY Qty: 60 0RF prednisone 5 mg tablet 10 mg PO QAM doxycycline hyclate 100 mg tablet 100 mg PO BID 28 Days Qty: 56 2RF Rx Instructions: chronic suppression, to start once off iv ertapenem amoxicillin-pot clavulanate 875-125 mg tablet 1 tab PO BID 30 Days Qty: 60 0RF Rx Instructions: chronic suppression, start once he is off iv ertapenem Lantus Solostar U-100 Insulin 100 unit/mL (3 mL) insulin pen 25 unit SUBCUT BEDTIME 30 Days Qty: 15 0RF warfarin 1 mg tablet 6 mg PO QPM Hold Instructions: Resume on 03/13/23. to be resumed after his urologiy procedure on monday Rx Instructions: ON HOLD FOR PROCEDURE cholecalciferol (vitamin D3) [Vitamin D3] 125 mcg (5,000 unit) Tablet 125 mcg PO QAM Discharge Orders: Discharge ED (Routine); Ordered 03/14/23 Ordered By: Schuyler Smith Referrals: Gregoria Cheek FNP [Primary Care Provider] - 1-3 days Discharge Diet: Advance as tolerated Discharge Activity: Resume usual activity Patient Instructions: Diabetic Hyperglycemia (ED) Coding Level of Care Code ED Geographic Information Systems Director for John Jade
[2023-03-14 16:09] VITALS: BP 143/102; PULSE 112; O2SAT 98
[2023-03-14 16:29] LABS: Basophils # 0.1 10^3/uL (0.0-0.1); Basophils % 0.7 %; Eosinophils # 0.2 10^3/uL (0.0-0.8); Eosinophils % 1.3 %; Lymphocytes # 1.4 10^3/uL (0.8-4.8); Lymphocytes % 12.3 %; Mean Corpuscular HGB Conc 28.6 g/dL (30.0-36.0); Mean Corpuscular Hemoglobin 16.3 pg (28.0-34.0); Mean Corpuscular Volume 57.1 fl (80-94); Monocytes # 0.5 10^3/uL (0.2-0.9); Monocytes % 4.4 %; Neutrophils # 9.13 10^3/uL (1.8-7.7); Nucleated Red Blood Cells % 0 %; Platelet Count 293 10^3/cmm (130-400); Red Blood Count 6.13 10^6/uL (4.1-5.3); Red Cell Distribution Width 19.8 % (12.1-15.1); White Blood Count 11.3 10^3/uL (4.0-10.0)
--- NOTE | 2023-03-14 16:58 | ECG_ITS ---
[facility] Test Date: 2023-03-14 Pat Name: Ry Loyd Department: Room: Gender: Male Whipper Beater: : 1955 Requested By: Raymon Fernandez Order Number: [id number] Morena MD: Ari Pettit M.D. Measurements Intervals [place] Rate: 108 P: 0 GA: 0 QRS: -30 QRSD: 86 T: 140 QT: 318 QTc: 428 Interpretive Statements ATRIAL FIBRILLATION WITH RAPID VENTRICULAR RESPONSE BORDERLINE LEFT AXIS DEVIATION [QRS AXIS < -20] MODERATE VOLTAGE CRITERIA FOR LVH, CONSIDER NORMAL VARIANT [MEETS CRITERIA IN ONE OF: R(aVL), S(V1), R(V5), R(V5/V6)+S(V1)] MODERATE T-WAVE ABNORMALITY, CONSIDER LATERAL ISCHEMIA [-0.1+ mV T-WAVE IN I/aVL/V5/V6] Compared to ECG 03/02/2023 09:22:31 No significant changes Electronically Signed On 03-14-2023 20:38:10 CDT by Ari Pettit M.D. [id number]
[2023-03-14 17:00] VITALS: BP 135/77; PULSE 109; O2SAT 97
[2023-03-14 17:05] LABS: Alanine Aminotransferase 55 U/L (0-41); Alkaline Phosphatase 88 U/L (40-130); Anion Gap 17.3 (5-19); Aspartate Amino Transferase 54 U/L (0-40); Blood Urea Nitrogen 26 mg/dL (8-23); Calcium 8.8 mg/dL (8.5-10.5); Carbon Dioxide 26 mmol/L (22-29); Chloride 96 mmol/L (98-107); Globulin 3.3 g/dL (1.3-4.6); Glomerular Filtration Rate 74.1 mL/min (90-130); Glucose 322 mg/dL (65-115); Osmolality Calculated 297 mOsm/kg (285-295); Potassium 4.3 mmol/L (3.5-5.1); Sodium 135 mmol/L (136-145); Total Bilirubin 0.5 mg/dL (0.15-1.2); Total Protein 6.3 g/dL (6.6-8.7)
[2023-03-14 17:06] LABS: Ketone (Acetest) Serum Negative (Negative)
[2023-03-14 17:51] LABS: Glucose Point of Care 340 mg/dL (70-110)
[2023-03-14 18:00] VITALS: BP 146/88; PULSE 93; O2SAT 97
[2023-03-14] MEDS: insulin regular-human 100 units/1 mL 8 UNIT IVP (18:22)
[2023-03-14 18:30] VITALS: BP 169/103; PULSE 102; O2SAT 99
[2023-03-14 18:43] LABS: Add Urine Microscopic? YES; Bilirubin Urine Neg (Negative); Blood Urine 3+ (Negative); Glucose Urine UA Trace (Normal); Ketones Urine Negative (Negative); Leukocyte Esterase Urine 2+ (Negative); Nitrate Urine Negative (Negative); Protein Urine 1+ (Negative); Urine Appearance Cloudy (CLEAR); Urine Color Red (Yellow); Urobilinogen Urine Neg (Negative); pH Urine 7 (5-7)
[2023-03-14 18:47] LABS: Add Urine Culture? Yes; Amorphous Sediment Urine 1+ /hpf; Bacteria Urine TRACE /hpf; RBC Urine TOO NUMEROUS TO CNT /hpf (0-2)
[2023-03-14 18:56] LABS: Glucose Point of Care 391 mg/dL (70-110)
[2023-03-14] MEDS: insulin regular-human 100 units/1 mL 4 UNIT IVP (19:05)
[2023-03-14 19:42] LABS: Glucose Point of Care 260 mg/dL (70-110)
[2023-03-14 19:58] VITALS: BP 160/92; PULSE 85; O2SAT 92
== END 2023-03-14 21:15 | disposition home or self-care (01) ==
PROVIDERS: Family Medicine; Emergency Provider Emergency Medicine; PCP Nurse Practitioner Family
DX: E11.65 Type 2 diabetes mellitus with hyperglycemia (principal); Z79.01 Long term (current) use of anticoagulants; Z79.82 Long term (current) use of aspirin; Z79.4 Long term (current) use of insulin; Z87.891 Personal history of nicotine dependence; I11.0 Hypertensive heart disease with heart failure; I50.9 Heart failure, unspecified; Z86.73 Personal history of transient ischemic attack (TIA), and cerebral infarction without residual deficits; F03.90 Unspecified dementia, unspecified severity, without behavioral disturbance, psychotic disturbance, mood disturbance, and anxiety; E78.5 Hyperlipidemia, unspecified
CPT/HCPCS: 36415; 36416; 71045; 80053; 81001; 82009; 82962; 85025; 87086; 93005; 96374; 96376; 99285; J1815

== ENCOUNTER 2023-03-21 14:55 | Outpatient (CLI) | payer MEDICARE, OTHER, SELFPAY ==
--- NOTE | 2023-03-21 15:21 | XR_ITS ---
WS: [id number] XR KUB [id number] REASON FOR EXAM: Stones FINDINGS: Due to the extremely enlarged body habitus the abdomen is not optimally visualized. There is a right ureteral stent in place. Compared to the previous examination of 03/09/2023 there stella ears to be caudal migration with the proximal pigtail somewhat inferior and medial and a longer lengt h of catheter within the bladder. No urinary tract calculi are identified. The right ureteral pelvic junction calculus demonstrated on the CT scan of 03/02/2023 is not identifiable. XR/XR KUB [id number] IMPRESSION: Minimal right ureteral stent caudal migration. No urinary tract calculi are identified.
== END 2023-03-21 14:56 | disposition home or self-care (01) ==
PROVIDERS: PCP Nurse Practitioner Family; Visit Provider Urology
DX: N20.1 Calculus of ureter (principal)
CPT/HCPCS: 52001; 52310; 74018

== ENCOUNTER 2023-04-27 15:25 | Emergency (ER) | payer MEDICARE, OTHER, SELFPAY ==
--- NOTE | 2023-04-27 15:29 | XR_ITS ---
WS: [id number] Portable AP supine chest, 04/27/2023 Clinical Data: dyspnea/cough Comparison: Portable chest, 03/14/2023 Findings: No nodules, masses or effusions are seen. The heart is slightly enlarged. The pulmonary vas cularity is not increased. No pneumonia or pneumothorax is seen. There is an artificial valve in the heart. XR/XR chest 1V portable [id number] Impression: Cardiomegaly.
[2023-04-27 15:33] VITALS: BMI 37.2
--- NOTE | 2023-04-27 15:35 | W.ED.ABDPA2 ---
HPI - Abdominal Pain General: Chief Complaint: Abdominal Pain Stated Complaint: 23 lb weight gain in 2 wks Time Seen by Provider: 04/27/23 15:29 Source: patient Mode of arrival: EMS PFS ED PFSH: Medical History Acute cystitis Altered mental status Aortic stenosis Had TAVR replacement 2017 Atrial fibrillation Atrial fibrillation with slow ventricular response Bilateral renal masses CHF (congestive heart failure) EF 45 by transesophageal echo January 2019 Chronic antibiotic suppression Chronic anticoagulation coumadin Chronic cystitis Chronic urinary tract infection, suppressed Chronic use of steroids Complex renal cyst Congestive heart failure CVA (cerebral vascular accident) Dementia Diabetes Dyslipidemia Endocarditis history of chronic viridans endocarditis, 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 Essential hypertension Gout High risk medication use arava and chronic steroids 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 Hx of [place] spotted fever Ischemic cardiomyopathy Left ventricular hypertrophy Liver cirrhosis Obesity AJAY (obstructive sleep apnea) Pre-syncope Pulmonary HTN Pyelonephritis of right kidney Recurrent UTI Multidrug-resistant organisms Renal calculi Restrictive lung disease Rheumatoid arthritis Rheumatoid arthritis Shoulder pain Skin lesion Syncope Syncope and collapse Thalassemia Urinary tract infection due to ESBL Klebsiella Surgical History H/O lithotripsy S/P TAVR (transcatheter aortic valve replacement) (~2017) Family History Mother Stroke Father Myocardial infarction Other CAD (coronary artery disease) Chronic kidney disease (CKD) Diabetes Hypertension Social History Smoking and tobacco status: former smoker Quit status (tobacco): has quit using tobacco Year quit tobacco: 2019 - Chewing Tobacco Former quit date comment: Hx of 1/2 can x 50 Years Second hand smoke exposure: No Alcohol intake: former Substance/Drug Use: never Lives independently: No Household members: spouse Marital status: Current occupational status: retired and disabled Do you think of yourself as: Straight/Heterosexual Current gender identity: Male Discharge Plan Discharge Condition: Stable Prescriptions: No Action citalopram [Celexa] 10 mg tablet 10 mg PO QAM carvedilol 6.25 mg tablet 6.25 mg PO BID Hold Instructions: Resume on 11/23/22. insulin aspart U-100 [Novolog PenFill U-100 Insulin] 100 unit/mL cartridge 10 unit SUBCUT TID enoxaparin 120 mg/0.8 mL syringe 120 mg SUBCUT Q12H ertapenem 1 gram recon soln 1 g IV DAILY cholecalciferol (vitamin D3) 25 mcg (1,000 unit) capsule 25 mcg PO DAILY Qty: 90 3RF prednisone 5 mg tablet 5 mg PO DAILY Qty: 30 3RF potassium chloride 20 mEq Tablet Extended Release 20 meq PO DAILY Hold Instructions: see pcp pantoprazole [Protonix] 40 mg Tablet,Delayed Release (Dr/Ec) 40 mg PO DAILY@06 aspirin 81 mg Tablet,Delayed Release (Dr/Ec) 81 mg PO BEDTIME Rx Instructions: ON HOLD FOR PROCEDURE Florajen Acidophilus 20 billion cell Capsule 20,000 mmu cells PO BEDTIME PNV cmb#95-ferrous fumarate-FA [ Multivitamins] 28 mg iron- 800 mcg Tablet 1 tab PO DAILY@06 atorvastatin 40 mg tablet 40 mg PO DAILY@19 ascorbic acid (vitamin C) [Vitamin C] 500 mg Tablet 500 mg PO QPM nitroglycerin [Nitrostat] 0.4 mg Tablet, Sublingual 0.4 mg SUBLINGUAL Q5M PRN (Reason: Chest Pain) Rx Instructions: do not exceed 3 doses per episode hydroxyzine pamoate 25 mg capsule 25 mg PO BID bumetanide 2 mg tablet 1 mg PO DAILY Qty: 60 0RF doxycycline hyclate 100 mg tablet 100 mg PO BID 28 Days Qty: 56 2RF Rx Instructions: chronic suppression, to start once off iv ertapenem Lantus Solostar U-100 Insulin 100 unit/mL (3 mL) insulin pen 25 unit SUBCUT BEDTIME 30 Days Qty: 15 0RF warfarin 1 mg tablet 6 mg PO QPM Hold Instructions: Resume on 03/13/23. to be resumed after his urologiy procedure on monday Rx Instructions: ON HOLD FOR PROCEDURE Referrals: Gregoria Cheek FNP [Primary Care Provider] - Coding Level of Care Code ED Lawn Service Supervisor for John Jade
[2023-04-27 15:37] VITALS: BP 120/80; PULSE 97; RESP 20; O2SAT 95
[2023-04-27] MEDS: FUROsemide 10 mg/mL SDV 10mL 80 MG IVP (15:44)
--- NOTE | 2023-04-27 15:56 | ECG_ITS ---
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 Measurements Intervals [place] Rate: 90 P: 0 WI: 0 QRS: -15 QRSD: 88 T: 154 QT: 362 QTc: 445 Interpretive Statements ATRIAL FIBRILLATION WITH ABERRANT CONDUCTION OR VENTRICULAR PREMATURE COMPLEXES NONSPECIFIC ST & T-WAVE ABNORMALITY Compared to ECG 03/14/2023 16:58:19 Ventricular premature complex(es) now present Aberrant conduction of supraventricular beat(s) now present Possible ischemia no longer present T-wave abnormality still present Electronically Signed On 04-27-2023 17:59:27 CDT by Ari Pettit M.D. [id number]
[2023-04-27 16:12] LABS: Basophils # 0.1 10^3/uL (0.0-0.1); Basophils % 0.7 %; Eosinophils # 0.5 10^3/uL (0.0-0.8); Eosinophils % 4.4 %; Hematocrit 31.2 % (42.0-52.0); Hemoglobin 8.9 g/dL (11.7-16.6); Lymphocytes % 19.4 %; Mean Corpuscular HGB Conc 28.5 g/dL (30.0-36.0); Mean Corpuscular Hemoglobin 15.5 pg (28.0-34.0); Mean Corpuscular Volume 54.5 fl (80-94); Monocytes # 0.7 10^3/uL (0.2-0.9); Monocytes % 6.4 %; Neutrophils # 7.04 10^3/uL (1.8-7.7); Neutrophils % 68.7 %; Nucleated Red Blood Cells % 0.2 %; Platelet Count 363 10^3/cmm (130-400); Red Blood Count 5.73 10^6/uL (4.1-5.3); Red Cell Distribution Width 20.2 % (12.1-15.1); White Blood Count 10.2 10^3/uL (4.0-10.0)
[2023-04-27 16:14] LABS: Alanine Aminotransferase 14 U/L (0-41); Albumin Level 2.9 g/dL (3.5-5.2); Alkaline Phosphatase 90 U/L (40-130); Anion Gap 12.1 (5-19); Aspartate Amino Transferase 21 U/L (0-40); Blood Urea Nitrogen 31 mg/dL (8-23); Calcium 9.1 mg/dL (8.5-10.5); Carbon Dioxide 29 mmol/L (22-29); Chloride 102 mmol/L (98-107); Globulin 3.6 g/dL (1.3-4.6); Glomerular Filtration Rate 66.4 mL/min (90-130); Glucose 168 mg/dL (65-115); Lipase 25 U/L (13-60); Osmolality Calculated 298 mOsm/kg (285-295); Potassium 4.1 mmol/L (3.5-5.1); Sodium 139 mmol/L (136-145); Total Bilirubin 0.6 mg/dL (0.15-1.2); Total Protein 6.5 g/dL (6.6-8.7)
[2023-04-27 16:42] VITALS: BP 139/69; PULSE 102; O2SAT 97
--- NOTE | 2023-04-27 17:05 | ED_ITS ---
Documented by User: Raymon Boyce DO 04/28/23 06:09 HPI - General Adult General: Chief complaint: Abdominal Pain Stated complaint: 23 lb weight gain in 2 wks Time Seen by Provider: 04/27/23 15:29 Source: patient Mode of arrival: EMS History of Present Illness: 67-year-old male presents emergency room with complaints of abdominal pain and a 20 pound weight gain in the last 2 weeks. He was recently hospitalized had a cholecystectomy he is still currently taking Bumex he is in a fdc now has some dementia. They are concerned because he is complaining of nausea and dry heaving and a 20 pound weight gain and directed in the emergency room he denies chest pain dysuria urgency or frequency. He is complaining of nausea here but does not exhibit any. Onset (ago): week(s) Location: abdomen Severity: moderate Quality: aching Relieving factors: none Exacerbating factors: none Associated symptoms: Reports nausea and vomiting; Deny chest pain, confusion, cough, diaphoresis, decreased appetite, dyspnea, fevers/chills, headache(s), rash, seizures, short of breath or weakness Review of Systems Const: Denies: fever(s), chills or diaphoresis Card: Denies: chest pain Resp: Denies: dyspnea GI: Reports: abdominal pain, nausea and vomiting : Denies: dysuria, urinary frequency or urinary urgency Skin/Breast: Denies: rash Neuro: Denies: headache(s) or confusion PFS ED PFSH: Medical History Acute cystitis Altered mental status Aortic stenosis Had TAVR replacement 2017 Atrial fibrillation Atrial fibrillation with slow ventricular response Bilateral renal masses CHF (congestive heart failure) EF 45 by transesophageal echo January 2019 Chronic antibiotic suppression Chronic anticoagulation coumadin Chronic cystitis Chronic urinary tract infection, suppressed Chronic use of steroids Complex renal cyst Congestive heart failure CVA (cerebral vascular accident) Dementia Diabetes Dyslipidemia Endocarditis history of chronic viridans endocarditis, 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 Essential hypertension Gout High risk medication use arava and chronic steroids 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 Hx of [place] spotted fever Ischemic cardiomyopathy Left ventricular hypertrophy Liver cirrhosis Obesity AJAY (obstructive sleep apnea) Pre-syncope Pulmonary HTN Pyelonephritis of right kidney Recurrent UTI Multidrug-resistant organisms Renal calculi Restrictive lung disease Rheumatoid arthritis Rheumatoid arthritis Shoulder pain Skin lesion Syncope Syncope and collapse Thalassemia Urinary tract infection due to ESBL Klebsiella Surgical History H/O lithotripsy S/P TAVR (transcatheter aortic valve replacement) (~2018) Family History Mother Stroke Father Myocardial infarction Other CAD (coronary artery disease) Chronic kidney disease (CKD) Diabetes Hypertension Social History Smoking and tobacco status: former smoker Quit status (tobacco): has quit using tobacco Year quit tobacco: 2019 - Chewing Tobacco Former quit date comment: Hx of 1/2 can x 50 Years Second hand smoke exposure: No Alcohol intake: former Substance/Drug Use: never Lives independently: No Household members: spouse Marital status: Current occupational status: retired and disabled Do you think of yourself as: Straight/Heterosexual Current gender identity: Male Physical Exam Const: GENERAL APPEARANCE: cooperative and comfortable ORIE NTATION/CONSCIOUSNESS: Yes awake HENMT: COMMON NORMALS: normocephalic, atraumatic and hearing grossly normal bilaterally HEAD & SCALP: normocephalic and atraumatic Resp: COMMON NORMALS: normal respiratory effort, No retractions, No use of accessory muscles and clear to auscultation bilaterally AUSCULTATION: clear to auscultation bilaterally Cardio: COMMON NORMALS: regular rate, regular rhythm and No murmurs present (Cardio) RATE: regular rate RHYTHM: regular rhythm GI: COMMON NORMALS: Soft to palpation and No hepatosplenomegaly present AUSCULTATION: Yes normoactive bowel sounds PALPATION: Yes Soft to palpation, No Tenderness to palpation present (GI), No Guarding due to palpation present (GI) and Yes No hepatosplenomegaly present Extremity: COMMON NORMALS: normal to inspection, capillary refill normal, no clubbing, cyanosis or edema, no calf tenderness and no pedal edema Skin: COMMON NORMALS: no rashes or lesions noted GENERAL SKIN EXAM: no rashes or lesions noted Course Vital Signs: Vital signs: Vital Signs Pulse Rate 100 04/27/23 20:10 Respiratory Rate 20 H 04/27/23 20:10 Blood Pressure 148/99 04/27/23 18:42 Pulse Oximetry 92 04/27/23 20:10 Oxygen Delivery Me thod Room Air 04/27/23 15:37 MDM - General Adult Medical Decision Making Care signed out to Dr. Smith at change of shift. See final notes for diagnosis and disposition. Patient presents with abdominal pain his CT did show a kidney stone no signs of infection he is stable for discharge back to the fdc. Lab Data 04/27/23 15:40 04/27/23 15:40 Radiology Impressions Chest X-Ray 04/27/23 15:29 Impression: Cardiomegaly. Abdomen/Pelvis CT 04/27/23 17:08 IMPRESSION: 1. Left nephrolithiasis 2. Small stone in the distal left ureter 3. Findings of cholecystectomy 4. Mild diffuse body wall edema 5. Umbilical hernia containing fat 6. Bilateral complex renal masses not significantly changed compared with 03/02/2023 Laboratory Results WBC 10.2 10^3/uL (4.0-10.0) H 04/27/23 15:40 RBC 5.73 10^6/uL (4.1-5.3) H 04/27/23 15:40 Hgb 8.9 g/dL (11.7-16.6) L 04/27/23 15:40 Hct 31.2 % (42.0-52.0) L 04/27/23 15:40 MCV 54.5 fl (80-94) L 04/27/23 15:40 MCH 15.5 pg (28.0-34.0) L 04/27/23 15:40 MCHC 28.5 g/dL (30.0-36.0) L 04/27/23 15:40 RDW 20.2 % (12.1-15.1) H 04/27/23 15:40 Plt Count 363 10^3/cmm (130-400) 04/27/23 15:40 MPV TNP 04/27/23 15:40 Neut % (Auto) 68.7 % 04/27/23 15:40 Lymph % (Auto) 19.4 % 04/27/23 15:40 [place] % (Auto) 6.4 % 04/27/23 15:40 Eos % (Auto) 4.4 % 04/27/23 15:40 Baso % (Auto) 0.7 % 04/27/23 15:40 Neut # (Auto) 7.04 10^3/uL (1.8-7.7) 04/27/23 15:40 Lymph # (Auto) 2.0 10^3/uL (0.8-4.8) 04/27/23 15:40 [place] # (Auto) 0.7 10^3/uL (0.2-0.9) 04/27/23 15:40 Eos # (Auto) 0.5 10^3/uL (0.0-0.8) 04/27/23 15:40 Baso # (Auto) 0.1 10^3/uL (0.0-0.1) 04/27/23 15:40 Nucleated RBC % (auto) 0.2 % 04/27/23 15:40 Nucleated RBCs # 0.0 /100WBC 04/27/23 15:40 PT 18.50 SECONDS (12.1-14.9) H 04/27/23 18:30 INR 1.49 (0.8-1.2) H 04/27/23 18:30 Sodium 139 mmol/L (136-145) 04/27/23 15:40 Potassium 4.1 mmol/L (3.5-5.1) 04/27/23 15:40 Chloride 102 mmol/L (98-107) 04/27/23 15:40 Carbon Dioxide 29 mmol/L (22-29) 04/27/23 15:40 Anion Gap 12.1 (5-19) 04/27/23 15:40 BUN 31 mg/dL (8-23) H 04/27/23 15:40 Creatinine 1.1 mg/dL (0.7-1.2) 04/27/23 15:40 GFR Calculation 66.4 mL/min (90-130) L 04/27/23 15:40 Glucose 168 mg/dL (65-115) H 04/27/23 15:40 Calculated Osmolality 298 mOsm/kg (285-295) H 04/27/23 15:40 Calcium 9.1 mg/dL (8.5-10.5) 04/27/23 15:40 Total Bilirubin 0.6 mg/dL (0.15-1.2) 04/27/23 15:40 AST 21 U/L (0-40) 04/27/23 15:40 ALT 14 U/L (0-41) 04/27/23 15:40 Alkaline Phosphatase 90 U/L (40-130) 04/27/23 15:40 Total Protein 6.5 g/dL (6.6-8.7) L 04/27/23 15:40 Albumin 2.9 g/dL (3.5-5.2) L 04/27/23 15:40 Globulin 3.6 g/dL (1.3-4.6) 04/27/23 15:40 Lipase 25 U/L (13-60) 04/27/23 15:40 Urine Color Yellow (Yellow) 04/27/23 18:48 Urine Appearance Clear (CLEAR) 04/27/23 18:48 Urine pH 7 (5-7) 04/27/23 18:48 Ur Specific [place] 1.005 (1.005-1.030) 04/27/23 18:48 Urine Protein Neg (Negative) 04/27/23 18:48 Urine Glucose (UA) Norm (Normal) 04/27/23 18:48 Urine Ketones Negative (Negative) 04/27/23 18:48 Urine Blood 3+ (Negative) H 04/27/23 18:48 Urine Nitrate Negative (Negative) 04/27/23 18:48 Urine Bilirubin Neg (Negative) 04/27/23 18:48 Urine Urobilinogen Norm mg/dL (Negative) 04/27/23 18:48 Ur Leukocyte Esterase Negative (Negative) 04/27/23 18:48 Urine RBC 80-100 /hpf (0-2) H 04/27/23 18:48 Urine WBC 0-4 /hpf (0-5) H 04/27/23 18:48 Ur Squamous Epith Cells None /hpf (0-5) 04/27/23 18:48 Amorphous Sediment Not Reportable 04/27/23 18:48 Urine Bacteria None /hpf (NONE) 04/27/23 18:48 Discharge Plan Discharge Patient Disposition: Home Clinical Impression: Left nephrolithiasis Condition: Stable Prescriptions: New hydrocodone-acetaminophen 5-325 mg tablet 1 tab PO Q6H PRN (Reason: pain) Qty: 20 0RF No Action citalopram [Celexa] 10 mg tablet 10 mg PO QAM carvedilol 6.25 mg tablet 6.25 mg PO BID Hold Instructions: Resume on 11/23/22. insulin aspart U-100 [Novolog PenFill U-100 Insulin] 100 unit/mL cartridge 10 unit SUBCUT TID enoxaparin 120 mg/0.8 mL syringe 120 mg SUBCUT Q12H ertapenem 1 gram recon soln 1 g IV DAILY cholecalciferol (vitamin D3) 25 mcg (1,000 unit) capsule 25 mcg PO DAILY Qty: 90 3RF prednisone 5 mg tablet 5 mg PO DAILY Qty: 30 3RF potassium chloride 20 mEq Tablet Extended Release 20 meq PO DAILY Hold Instructions: see pcp pantoprazole [Protonix] 40 mg Tablet,Delayed Release (Dr/Ec) 40 mg PO DAILY@06 aspirin 81 mg Tablet,Delayed Release (Dr/Ec) 81 mg PO BEDTIME Rx Instructions: ON HOLD FOR PROCEDURE Florajen Acidophilus 20 billion cell Capsule 20,000 mmu cells PO BEDTIME PNV cmb#95-ferrous fumarate-FA [ Multivitamins] 28 mg iron- 800 mcg Tablet 1 tab PO DAILY@06 atorvastatin 40 mg tablet 40 mg PO DAILY@19 ascorbic acid (vitamin C) [Vitamin C] 500 mg Tablet 500 mg PO QPM nitroglycerin [Nitrostat] 0.4 mg Tablet, Sublingual 0.4 mg SUBLINGUAL Q5M PRN (Reason: Chest Pain) Rx Instructions: do not exceed 3 doses per episode hydroxyzine pamoate 25 mg capsule 25 mg PO BID bumetanide 2 mg tablet 1 mg PO DAILY Qty: 60 0RF doxycycline hyclate 100 mg tablet 100 mg PO BID 28 Days Qty: 56 2RF Rx Instructions: chronic suppression, to start once off iv ertapenem Lantus Solostar U-100 Insulin 100 unit/mL (3 mL) insulin pen 25 unit SUBCUT BEDTIME 30 Days Qty: 15 0RF warfarin 1 mg tablet 6 mg PO QPM Hold Instructions: Resume on 03/13/23. to be resumed after his urologiy procedure on monday Rx Instructions: ON HOLD FOR PROCEDURE Discharge Orders: Discharge ED (Routine); Ordered 04/27/23 Ordered By: Raymon Boyce Referrals: Gregoria Cheek FNP [Primary Care Provider] - Discharge Diet: Usual diet Discharge Activity: Increase activity as tolerated Patient Instructions: Opioid Safety, Pain Management Coding Level of Care Code ED Typing Checker for Chg Fwd Documented by User: Schuyler Smith MD 04/27/23 19:37 HPI - General Adult General: Chief complaint: Abdominal Pain Stated complaint: 23 lb weight gain in 2 wks Time Seen by Provider: 04/27/23 15:29 PFSH ED PFSH: Medical History Acute cystitis Altered mental status Aortic stenosis Had TAVR replacement 2017 Atrial fibrillation Atrial fibrillation with slow ventricular response Bilateral renal masses CHF (congestive heart failure) EF 45 by transesophageal echo January 2019 Chronic antibiotic suppression Chronic anticoagulation coumadin Chronic cystitis Chronic urinary tract infection, suppressed Chronic use of steroids Complex renal cyst Congestive heart failure CVA (cerebral vascular accident) Dementia Diabetes Dyslipidemia Endocarditis history of chronic viridans endocarditis, 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 Essential hypertension Gout High risk medication use arava and chronic steroids 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 Hx of [place] spotted fever Ischemic cardiomyopathy Left ventricular hypertrophy Liver cirrhosis Obesity AJAY (obstructive sleep apnea) Pre-syncope Pulmonary HTN Pyelonephritis of right kidney Recurrent UTI Multidrug-resistant organisms Renal calculi Restrictive lung disease Rheumatoid arthritis Rheumatoid arthritis Shoulder pain Skin lesion Syncope Syncope and collapse Thalassemia Urinary tract infection due to ESBL Klebsiella Surgical History H/O lithotripsy S/P TAVR (transcatheter aortic valve replacement) (~2018) Family History Mother Stroke Father Myocardial infarction Other CAD (coronary artery disease) Chronic kidney disease (CKD) Diabetes Hypertension Social History Smoking and tobacco status: former smoker Quit status (tobacco): has quit using tobacco Year quit tobacco: 2019 - Chewing Tobacco Former quit date comment: Hx of 1/2 can x 50 Years Second hand smoke exposure: No Alcohol intake: former Substance/Drug Use: never Lives independently: No Household members: spouse Marital status: Current occupational status: retired and disabled Do you think of yourself as: Straight/Heterosexual Current gender identity: Male Course Vital Signs: Vital signs: Vital Signs Pulse Rate 100 04/27/23 20:10 Respiratory Rate 20 H 04/27/23 20:10 Blood Pressure 148/99 04/27/23 18:42 Pulse Oximetry 92 04/27/23 20:10 Oxygen Delivery Me thod Room Air 04/27/23 15:37 MDM - General Adult Medical Decision Making Patient presents with abdominal pain his CT did show a kidney stone no signs of infection he is stable for discharge back to the fdc. Medical Records I reviewed the patient's medical records. Lab Data I reviewed the patient's lab results. 04/27/23 15:40 04/27/23 15:40 Radiology Impressions Chest X-Ray 04/27/23 15:29 Impression: Cardiomegaly. Abdomen/Pelvis CT 04/27/23 17:08 IMPRESSION: 1. Left nephrolithiasis 2. Small stone in the distal left ureter 3. Findings of cholecystectomy 4. Mild diffuse body wall edema 5. Umbilical hernia containing fat 6. Bilateral complex renal masses not significantly changed compared with 03/02/2023 Laboratory Results WBC 10.2 10^3/uL (4.0-10.0) H 04/27/23 15:40 RBC 5.73 10^6/uL (4.1-5.3) H 04/27/23 15:40 Hgb 8.9 g/dL (11.7-16.6) L 04/27/23 15:40 Hct 31.2 % (42.0-52.0) L 04/27/23 15:40 MCV 54.5 fl (80-94) L 04/27/23 15:40 MCH 15.5 pg (28.0-34.0) L 04/27/23 15:40 MCHC 28.5 g/dL (30.0-36.0) L 04/27/23 15:40 RDW 20.2 % (12.1-15.1) H 04/27/23 15:40 Plt Count 363 10^3/cmm (130-400) 04/27/23 15:40 MPV TNP 04/27/23 15:40 Neut % (Auto) 68.7 % 04/27/23 15:40 Lymph % (Auto) 19.4 % 04/27/23 15:40 [place] % (Auto) 6.4 % 04/27/23 15:40 Eos % (Auto) 4.4 % 04/27/23 15:40 Baso % (Auto) 0.7 % 04/27/23 15:40 Neut # (Auto) 7.04 10^3/uL (1.8-7.7) 04/27/23 15:40 Lymph # (Auto) 2.0 10^3/uL (0.8-4.8) 04/27/23 15:40 [place] # (Auto) 0.7 10^3/uL (0.2-0.9) 04/27/23 15:40 Eos # (Auto) 0.5 10^3/uL (0.0-0.8) 04/27/23 15:40 Baso # (Auto) 0.1 10^3/uL (0.0-0.1) 04/27/23 15:40 Nucleated RBC % (auto) 0.2 % 04/27/23 15:40 Nucleated RBCs # 0.0 /100WBC 04/27/23 15:40 PT 18.50 SECONDS (12.1-14.9) H 04/27/23 18:30 INR 1.49 (0.8-1.2) H 04/27/23 18:30 Sodium 139 mmol/L (136-145) 04/27/23 15:40 Potassium 4.1 mmol/L (3.5-5.1) 04/27/23 15:40 Chloride 102 mmol/L (98-107) 04/27/23 15:40 Carbon Dioxide 29 mmol/L (22-29) 04/27/23 15:40 Anion Gap 12.1 (5-19) 04/27/23 15:40 BUN 31 mg/dL (8-23) H 04/27/23 15:40 Creatinine 1.1 mg/dL (0.7-1.2) 04/27/23 15:40 GFR Calculation 66.4 mL/min (90-130) L 04/27/23 15:40 Glucose 168 mg/dL (65-115) H 04/27/23 15:40 Calculated Osmolality 298 mOsm/kg (285-295) H 04/27/23 15:40 Calcium 9.1 mg/dL (8.5-10.5) 04/27/23 15:40 Total Bilirubin 0.6 mg/dL (0.15-1.2) 04/27/23 15:40 AST 21 U/L (0-40) 04/27/23 15:40 ALT 14 U/L (0-41) 04/27/23 15:40 Alkaline Phosphatase 90 U/L (40-130) 04/27/23 15:40 Total Protein 6.5 g/dL (6.6-8.7) L 04/27/23 15:40 Albumin 2.9 g/dL (3.5-5.2) L 04/27/23 15:40 Globulin 3.6 g/dL (1.3-4.6) 04/27/23 15:40 Lipase 25 U/L (13-60) 04/27/23 15:40 Urine Color Yellow (Yellow) 04/27/23 18:48 Urine Appearance Clear (CLEAR) 04/27/23 18:48 Urine pH 7 (5-7) 04/27/23 18:48 Ur Specific [place] 1.005 (1.005-1.030) 04/27/23 18:48 Urine Protein Neg (Negative) 04/27/23 18:48 Urine Glucose (UA) Norm (Normal) 04/27/23 18:48 Urine Ketones Negative (Negative) 04/27/23 18:48 Urine Blood 3+ (Negative) H 04/27/23 18:48 Urine Nitrate Negative (Negative) 04/27/23 18:48 Urine Bilirubin Neg (Negative) 04/27/23 18:48 Urine Urobilinogen Norm mg/dL (Negative) 04/27/23 18:48 Ur Leukocyte Esterase Negative (Negative) 04/27/23 18:48 Urine RBC 80-100 /hpf (0-2) H 04/27/23 18:48 Urine WBC 0-4 /hpf (0-5) H 04/27/23 18:48 Ur Squamous Epith Cells None /hpf (0-5) 04/27/23 18:48 Amorphous Sediment Not Reportable 04/27/23 18:48 Urine Bacteria None /hpf (NONE) 04/27/23 18:48 Discharge Plan Discharge Patient Disposition: Home Clinical Impression: Left nephrolithiasis Condition: Stable Prescriptions: New hydrocodone-acetaminophen 5-325 mg tablet 1 tab PO Q6H PRN (Reason: pain) Qty: 20 0RF No Action citalopram [Celexa] 10 mg tablet 10 mg PO QAM carvedilol 6.25 mg tablet 6.25 mg PO BID Hold Instructions: Resume on 11/23/22. insulin aspart U-100 [Novolog PenFill U-100 Insulin] 100 unit/mL cartridge 10 unit SUBCUT TID enoxaparin 120 mg/0.8 mL syringe 120 mg SUBCUT Q12H ertapenem 1 gram recon soln 1 g IV DAILY cholecalciferol (vitamin D3) 25 mcg (1,000 unit) capsule 25 mcg PO DAILY Qty: 90 3RF prednisone 5 mg tablet 5 mg PO DAILY Qty: 30 3RF potassium chloride 20 mEq Tablet Extended Release 20 meq PO DAILY Hold Instructions: see pcp pantoprazole [Protonix] 40 mg Tablet,Delayed Release (Dr/Ec) 40 mg PO DAILY@06 aspirin 81 mg Tablet,Delayed Release (Dr/Ec) 81 mg PO BEDTIME Rx Instructions: ON HOLD FOR PROCEDURE Florajen Acidophilus 20 billion cell Capsule 20,000 mmu cells PO BEDTIME PNV cmb#95-ferrous fumarate-FA [ Multivitamins] 28 mg iron- 800 mcg Tablet 1 tab PO DAILY@06 atorvastatin 40 mg tablet 40 mg PO DAILY@19 ascorbic acid (vitamin C) [Vitamin C] 500 mg Tablet 500 mg PO QPM nitroglycerin [Nitrostat] 0.4 mg Tablet, Sublingual 0.4 mg SUBLINGUAL Q5M PRN (Reason: Chest Pain) Rx Instructions: do not exceed 3 doses per episode hydroxyzine pamoate 25 mg capsule 25 mg PO BID bumetanide 2 mg tablet 1 mg PO DAILY Qty: 60 0RF doxycycline hyclate 100 mg tablet 100 mg PO BID 28 Days Qty: 56 2RF Rx Instructions: chronic suppression, to start once off iv ertapenem Lantus Solostar U-100 Insulin 100 unit/mL (3 mL) insulin pen 25 unit SUBCUT BEDTIME 30 Days Qty: 15 0RF warfarin 1 mg tablet 6 mg PO QPM Hold Instructions: Resume on 03/13/23. to be resumed after his urologiy procedure on monday Rx Instructions: ON HOLD FOR PROCEDURE Discharge Orders: Discharge ED (Routine); Ordered 04/27/23 Ordered By: Raymon Boyce Referrals: Gregoria Cheek, COMPUTER OPERATOR [Primary Care Provider] - Discharge Diet: Usual diet Discharge Activity: Increase activity as tolerated Patient Instructions: Opioid Safety, Pain Management Coding Level of Care Code ED Typing Checker for John Jade
--- NOTE | 2023-04-27 17:08 | CTR_ITS ---
PROCEDURE INFORMATION: Exam: CT Abdomen And Pelvis Without Contrast Exam date and time: 04/27/2023 5:22 PM Age: 67 years old Clinical indication: Abdominal pain; Generalized; Prior surgery; Surgery date: <1 month; Surgery type: [place] 2 weeks ago TECHNIQUE: Imaging protocol: Computed tomography of the abdomen and pelvis without contrast. Radiation optimization: All CT scans at this facility use at least one of these dose optimization techniques: automated exposure control; mA and/or kV adjustment per patient size (includes targeted exams where dose is matched to clinical indication); or iterative reconstruction. REPORTING DATA: Count of CT and Cardiac NM exams in prior 12 months: This patient has received 11 known CTs and 0 known cardiac nuclear medicine studies in the 12 months prior to the current study. COMPARISON: CT kidney stone [id number] 03/02/2023 1:06 AM RADIATION DOSE METRICS: Total DLP (mGy-cm): 1396 FINDINGS: Limitations: The absence of intravenous contrast lessens the sensitivity of this study for solid organ abnormalities. Heart: Heart is within normal limits of size. There is a small pericardial effusion. There are findings of TAVR. Coronary arteries: There is moderate atherosclerotic calcification of the coronary arteries. Diaphragm: There is a small hiatal hernia. Liver: There is no focal abnormality within the liver. Gallbladder and bile ducts: There has been a cholecystectomy. Pancreas: The pancreas is normal. Spleen: The spleen is normal. Adrenal glands: The adrenal glands are normal. Kidneys and ureters: There are multiple left renal collecting system calcifications. There is mild fullness of the renal collecting systems bilaterally.There is no stone in the right ureter. There is a 3 mm stone in the distal left ureter approximately 2 cm above the left ureterovesical junction. Stone measures 613 Hounsfield units and is not seen on the paper making machine operator image. There are multiple left renal collecting system calcifications. No stone is demonstrated within the right kidney. Small stone seen on 03/02/2023 in the right kidney not presently identified. The proximal right ureteral calculus on 03/02/2023 is also no longer identified. Bilateral complex renal cortical cysts not significantly changed from 03/02/2023. The indeterminate cortical masses medial aspect of the right kidney are essentially unchanged from 07/16/2022. Stomach and bowel: There is no evidence of colitis/diverticulitis. There is no evidence of intestinal obstruction. Appendix: A normal appendix is identified. Intraperitoneal space: There is no evidence of free intraperitoneal fluid. Vasculature: The aorta demonstrates mild atherosclerotic calcification. There is no evidence of an abdominal aortic aneurysm. Lymph nodes: There is no evidence of lymphadenopathy. Urinary bladder: There is mild thickening of the urinary bladder wall probably due to muscular hypertrophy. Reproductive: The prostate demonstrates mild nonspecific enlargement. The seminal vesicles are normal. The prostate gland demonstrates nonspecific parenchymal calcifications. Bones/joints: Unremarkable. No acute fracture. Soft tissues: There is a large umbilical hernia containing only fat. There is moderate edema of the subcutaneous soft tissues of the anterior abdominal wall and more prominent edema of the bilateral flanks. CT/CT abdomen pelvis wo con [id number] IMPRESSION: 1. Left nephrolithiasis 2. Small stone in the distal left ureter 3. Findings of cholecystectomy 4. Mild diffuse body wall edema 5. Umbilical hernia containing fat 6. Bilateral complex renal masses not significantly changed compared with 03/02/2023
[2023-04-27 17:24] LABS: Slide Review Slide Review Perform
[2023-04-27 17:54] VITALS: BP 144/105; PULSE 101; O2SAT 94
[2023-04-27 18:42] VITALS: BP 148/99; PULSE 97; O2SAT 96
[2023-04-27 19:11] LABS: INR 1.49 (0.8-1.2)
[2023-04-27 19:28] LABS: Add Urine Microscopic? YES; Bilirubin Urine Neg (Negative); Blood Urine 3+ (Negative); Glucose Urine UA Norm (Normal); Ketones Urine Negative (Negative); Leukocyte Esterase Urine Negative (Negative); Nitrate Urine Negative (Negative); Protein Urine Neg (Negative); RBC Urine 80-100 /hpf (0-2); Specific Gravity, Urine 1.005 (1.005-1.030); Urine Appearance Clear (CLEAR); Urine Color Yellow (Yellow); Urobilinogen Urine Norm (Negative); WBC Urine 0-4 /hpf (0-5); pH Urine 7 (5-7)
[2023-04-27 19:29] LABS: Add Urine Culture? Yes
[2023-04-27] MEDS: ondansetron 2 mg/ML SDV 2 mL 4 MG IVP (20:08)
[2023-04-27 20:10] VITALS: PULSE 100; RESP 20; O2SAT 92
== END 2023-04-27 20:15 | disposition home or self-care (01) ==
PROVIDERS: Family Medicine; Emergency Provider Emergency Medicine; PCP Nurse Practitioner Family
DX: N20.0 Calculus of kidney (principal); I48.91 Unspecified atrial fibrillation; E11.9 Type 2 diabetes mellitus without complications; I50.9 Heart failure, unspecified
CPT/HCPCS: 36415; 51798; 71045; 74176; 80053; 81001; 83690; 85025; 85610; 87077; 87086; 87186; 93005; 96374; 96375; 99285; J1940; J2405

== ENCOUNTER 2023-05-09 12:04 | Emergency (ER) | payer MEDICARE, OTHER, SELFPAY ==
[2023-05-09 12:09] VITALS: BP 110/81; PULSE 95; RESP 18; TEMP 36.7; O2SAT 91; BMI 39.2
--- NOTE | 2023-05-09 12:20 | ECG_ITS ---
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 Measurements Intervals [place] Rate: 94 P: 0 LA: 0 QRS: -10 QRSD: 94 T: 0 QT: 333 QTc: 417 Interpretive Statements ATRIAL FIBRILLATION LOW QRS VOLTAGE IN PRECORDIAL LEADS [QRS DEFLECTION < 1.0 mV IN CHEST LEADS] NONSPECIFIC T-WAVE ABNORMALITY ABNORMAL RHYTHM ECG Compared to ECG 04/27/2023 15:56:25 Low QRS voltage now present Ventricular premature complex(es) no longer present Aberrant conduction of supraventricular beat(s) no longer present T-wave abnormality still present Electronically Signed On 05-09-2023 16:20:59 CDT by Cassy Monreal M.D. [id number]
--- NOTE | 2023-05-09 12:29 | XR_ITS ---
WS: [id number] EXAMINATION: XR chest 1V portable [id number] REASON FOR EXAM: dyspnea COMPARISON: 04/27/2023 ORDER DATE: 05/09/2023 12:32 PM TECHNIQUE: A single, portable frontal chest x-ray was obtained. X-RAY FINDINGS: Findings: No nodules, or infiltrates. There is a new small left pleural effusion. The heart is slight ly enlarged. There is mild pulmonary vascular congestion No pneumonia or pneumothorax is seen. Post T AVR XR/XR chest 1V portable [id number] IMPRESSION: Cardiomegaly with pulmonary vascular congestion and small left effusion.
--- NOTE | 2023-05-09 12:30 | ED_ITS ---
HPI - SOB/Dyspnea General: Chief Complaint: Shortness of Breath/Dyspnea Stated Complaint: Edema Time Seen by Provider: 05/09/23 12:08 Source: patient and EMS Mode of arrival: EMS History of Present Illness: HPI Narrative: 67-year-old male presents to the emergency room with complaints of shortness of breath and 16 pound weight gain over the last several days. He had had some right flank pain. We have seen him in the emergency room approximately 2 weeks ago at that time he was found to have a left nephrolithiasis in the distal ureter was very small stone he seems to pass that is not had any hematuria denies any dysuria urgency or frequency is normally on Bumex 1 mg daily. He is maintaining his oxygen sats on room 3 L by nasal cannula which is normal oxygen requirement. MD elicited complaint: shortness of breath Pertinent past history: congestive heart failure and diabetes Onset (ago): unknown Severity: mild Exacerbating factors: exertion Relieving factors: oxygen and rest Associated symptoms: Deny abdominal pain, chest congestion, chest pain, cough, diaphoresis, dizziness, extremity pain, fever(s), hemoptysis, lightheadedness, myalgias, nausea, orthopnea, palpitations, paresthesias, polydipsia, polyuria, rash, sense of impending doom, syncope, vomiting or other Review of Systems Const: Reports: malaise; Denies: fever(s), chills or diaphoresis Card: Reports: edema and swelling of feet/ankles; Denies: chest pain, palpitations, lightheadedness, syncope or orthopnea Resp: Reports: dyspnea; Denies: productive cough, non-productive cough, hemoptysis or chest congestion GI: Denies: abdominal pain, nausea or vomiting : Denies: flank pain, dysuria, urinary frequency or urinary urgency Musc: Denies: extremity pain Skin/Breast: Denies: rash or pruritus Neuro: Denies: dizziness Endo: Denies: polyuria or polydipsia PFS ED PFSH: Medical History Acute cystitis Altered mental status Aortic stenosis Had TAVR replacement 2017 Atrial fibrillation Atrial fibrillation with slow ventricular response Bilateral renal masses CHF (congestive heart failure) EF 45 by transesophageal echo January 2019 Chronic antibiotic suppression Chronic anticoagulation coumadin Chronic cystitis Chronic urinary tract infection, suppressed Chronic use of steroids Complex renal cyst Congestive heart failure CVA (cerebral vascular accident) Dementia Diabetes Dyslipidemia Endocarditis history of chronic viridans endocarditis, 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 Essential hypertension Gout High risk medication use arava and chronic steroids 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 Hx of [place] spotted fever Ischemic cardiomyopathy Left ventricular hypertrophy Liver cirrhosis Obesity AJAY (obstructive sleep apnea) Pre-syncope Pulmonary HTN Pyelonephritis of right kidney Recurrent UTI Multidrug-resistant organisms Renal calculi Restrictive lung disease Rheumatoid arthritis Rheumatoid arthritis Shoulder pain Skin lesion Syncope Syncope and collapse Thalassemia Urinary tract infection due to ESBL Klebsiella Surgical History H/O lithotripsy S/P TAVR (transcatheter aortic valve replacement) (~2018) Family History Mother Stroke Father Myocardial infarction Other CAD (coronary artery disease) Chronic kidney disease (CKD) Diabetes Hypertension Social History Smoking and tobacco status: former smoker Quit status (tobacco): has quit using tobacco Year quit tobacco: 2019 - Chewing Tobacco Former quit date comment: Hx of 1/2 can x 50 Years Second hand smoke exposure: No Alcohol intake: former Substance/Drug Use: never Lives independently: No Household members: spouse Marital status: Current occupational status: retired and disabled Do you think of yourself as: Straight/Heterosexual Current gender identity: Male Physical Exam Const: GENERAL APPEARANCE: cooperative and comfortable ORIENTATION/CONSCIOUSNESS: Yes awake, Yes oriented to person, Yes oriented to place and Yes oriented to time HENMT: COMMON NORMALS: normocephalic, atraumatic and hearing grossly normal bilaterally HEAD & SCALP: normocephalic and atraumatic Resp: COMMON NORMALS: normal respiratory effort, No retractions and No use of accessory muscles AUSCULTATION: crackles Cardio: COMMON NORMALS: regular rate, regular rhythm and No murmurs present (Cardio) RATE: regular rate RHYTHM: regular rhythm GI: COMMON NORMALS: Soft to palpation and No hepatosplenomegaly present AUSCULTATION: Yes normoactive bowel sounds PALPATION: Yes Soft to palpation, No Tenderness to palpation present (GI), No Guarding due to palpation present (GI) and Yes No hepatosplenomegaly present Extremity: COMMON NORMALS: normal to inspection, capillary refill normal and no calf tenderness GENERAL: Yes edema Neuro: SENSORIUM/ORIENTATION: Yes oriented to person, Yes oriented to place and Yes oriented to time Skin: COMMON NORMALS: no rashes or lesions noted GENERAL SKIN EXAM: no rashes or lesions noted Course Vital Signs: Vital signs: Vital Signs Temperature 98.1 F 05/09/23 12:09 Pulse Rate 96 05/09/23 16:08 Respiratory Rate 18 05/09/23 12:09 Blood Pressure 113/76 05/09/23 16:08 Pulse Oximetry 94 05/09/23 16:08 Oxygen Delivery Me thod Nasal Cannula 05/09/23 12:09 Oxygen Flow Rate 3 05/09/23 12:09 MDM - SOB/Dyspnea Medical Decision Making Improvement with diuresis of 2 mg of Bumex IV in the emergency room. Urine does not show any signs of hematuria discharge patient back to the skilled nursing increase his Bumex to 2 mg p.o. daily for the next 3 days at the end of that time he is to have repeat [facility] Medical Records I reviewed the patient's medical records. Lab Data I reviewed the patient's lab results. 05/09/23 12:33 05/09/23 12:33 Labs/Radiology: Radiology Impressions Chest X-Ray 05/09/23 12:29 IMPRESSION: Cardiomegaly with pulmonary vascular congestion and small left effusion. Laboratory Results WBC 12.6 10^3/uL (4.0-10.0) H 05/09/23 12:33 RBC 5.69 10^6/uL (4.1-5.3) H 05/09/23 12:33 Hgb 8.8 g/dL (11.7-16.6) L 05/09/23 12:33 Hct 30.5 % (42.0-52.0) L 05/09/23 12:33 MCV 53.6 fl (80-94) L 05/09/23 12:33 MCH 15.5 pg (28.0-34.0) L 05/09/23 12:33 MCHC 28.9 g/dL (30.0-36.0) L 05/09/23 12:33 RDW 20.0 % (12.1-15.1) H 05/09/23 12:33 Plt Count 453 10^3/cmm (130-400) H 05/09/23 12:33 MPV 9.1 fL (7.4-10.4) 05/09/23 12:33 Neut % (Auto) 77.0 % 05/09/23 12:33 Lymph % (Auto) 12.8 % 05/09/23 12:33 Summers % (Auto) 8.7 % 05/09/23 12:33 Eos % (Auto) 0.3 % 05/09/23 12:33 Baso % (Auto) 0.6 % 05/09/23 12:33 Neut # (Auto) 9.71 10^3/uL (1.8-7.7) H 05/09/23 12:33 Lymph # (Auto) 1.6 10^3/uL (0.8-4.8) 05/09/23 12:33 Summers # (Auto) 1.1 10^3/uL (0.2-0.9) H 05/09/23 12:33 Eos # (Auto) 0.0 10^3/uL (0.0-0.8) 05/09/23 12:33 Baso # (Auto) 0.1 10^3/uL (0.0-0.1) 05/09/23 12:33 Nucleated RBC % (auto) 0.7 % 05/09/23 12:33 Nucleated RBCs # 0.1 /100WBC 05/09/23 12:33 Sodium 137 mmol/L (136-145) 05/09/23 12:33 Potassium 4.5 mmol/L (3.5-5.1) 05/09/23 12:33 Chloride 98 mmol/L (98-107) 05/09/23 12:33 Carbon Dioxide 28 mmol/L (22-29) 05/09/23 12:33 Anion Gap 15.5 (5-19) 05/09/23 12:33 BUN 30 mg/dL (8-23) H 05/09/23 12:33 Creatinine 1.1 mg/dL (0.7-1.2) 05/09/23 12:33 GFR Calculation 66.4 mL/min (90-130) L 05/09/23 12:33 Glucose 69 mg/dL (65-115) 05/09/23 12:33 Calculated Osmolality 289 mOsm/kg (285-295) 05/09/23 12:33 Calcium 9.1 mg/dL (8.5-10.5) 05/09/23 12:33 Total Bilirubin 1.0 mg/dL (0.15-1.2) 05/09/23 12:33 AST 66 U/L (0-40) H 05/09/23 12:33 ALT 46 U/L (0-41) H 05/09/23 12:33 Alkaline Phosphatase 89 U/L (40-130) 05/09/23 12:33 NT-Pro-B Natriuret Pep 3750 pg/mL (0-125) H 05/09/23 12:33 Total Protein 6.7 g/dL (6.6-8.7) 05/09/23 12:33 Albumin 3.0 g/dL (3.5-5.2) L 05/09/23 12:33 Globulin 3.7 g/dL (1.3-4.6) 05/09/23 12:33 Urine Color Yellow (Yellow) 05/09/23 14:22 Urine Appearance Clear (CLEAR) 05/09/23 14:22 Urine pH 7 (5-7) 05/09/23 14:22 Ur Specific [place] 1.010 (1.005-1.030) 05/09/23 14:22 Urine Protein Neg (Negative) 05/09/23 14:22 Urine Glucose (UA) Norm (Normal) 05/09/23 14:22 Urine Ketones Negative (Negative) 05/09/23 14:22 Urine Blood Neg (Negative) 05/09/23 14:22 Urine Nitrate Negative (Negative) 05/09/23 14:22 Urine Bilirubin Neg (Negative) 05/09/23 14:22 Urine Urobilinogen Norm mg/dL (Negative) 05/09/23 14:22 Ur Leukocyte Esterase Negative (Negative) 05/09/23 14:22 Discharge Plan Discharge Patient Disposition: Home Clinical Impression: Congestive heart failure Condition: Stable Prescriptions: No Action citalopram [Celexa] 10 mg tablet 10 mg PO QAM carvedilol 6.25 mg tablet 6.25 mg PO BID Hold Instructions: Resume on 01/04/23. insulin aspart U-100 [Novolog PenFill U-100 Insulin] 100 unit/mL cartridge 10 unit SUBCUT TID enoxaparin 120 mg/0.8 mL syringe 120 mg SUBCUT Q12H ertapenem 1 gram recon soln 1 g IV DAILY cholecalciferol (vitamin D3) 25 mcg (1,000 unit) capsule 25 mcg PO DAILY Qty: 90 3RF prednisone 5 mg tablet 5 mg PO DAILY Qty: 30 3RF amoxicillin-pot clavulanate 875-125 mg tablet 1 tab PO BID 30 Days Qty: 60 3RF Rx Instructions: chronic suppression, start once he is off iv ertapenem potassium chloride 20 mEq Tablet Extended Release 20 meq PO DAILY Hold Instructions: see pcp pantoprazole [Protonix] 40 mg Tablet,Delayed Release (Dr/Ec) 40 mg PO DAILY@06 aspirin 81 mg Tablet,Delayed Release (Dr/Ec) 81 mg PO BEDTIME Rx Instructions: ON HOLD FOR PROCEDURE Florajen Acidophilus 20 billion cell Capsule 20,000 mmu cells PO BEDTIME PNV cmb#95-ferrous fumarate-FA [ Multivitamins] 28 mg iron- 800 mcg Tablet 1 tab PO DAILY@06 atorvastatin 40 mg tablet 40 mg PO DAILY@19 ascorbic acid (vitamin C) [Vitamin C] 500 mg Tablet 500 mg PO QPM nitroglycerin [Nitrostat] 0.4 mg Tablet, Sublingual 0.4 mg SUBLINGUAL Q5M PRN (Reason: Chest Pain) Rx Instructions: do not exceed 3 doses per episode hydroxyzine pamoate 25 mg capsule 25 mg PO BID bumetanide 2 mg tablet 1 mg PO DAILY Qty: 60 0RF doxycycline hyclate 100 mg tablet 100 mg PO BID 28 Days Qty: 56 2RF Rx Instructions: chronic suppression, to start once off iv ertapenem Lantus Solostar U-100 Insulin 100 unit/mL (3 mL) insulin pen 25 unit SUBCUT BEDTIME 30 Days Qty: 15 0RF warfarin 1 mg tablet 6 mg PO QPM Hold Instructions: Resume on 03/13/23. to be resumed after his urologiy procedure on monday Rx Instructions: ON HOLD FOR PROCEDURE hydrocodone-acetaminophen 5-325 mg tablet 1 tab PO Q6H PRN (Reason: pain) Qty: 20 0RF Discharge Orders: Discharge ED (Routine); Ordered 05/09/23 Ordered By: Raymon Boyce Referrals: Gregoria Cheek, [facility] [Primary Care Provider] - Discharge Diet: Usual diet Discharge Activity: Resume usual activity Patient Instructions: Opioid Safety, Pain Management Activity Restrictions/Additional Instructions: You are seen today with complaints of fluid overload. You do have signs of worsening congestive heart failure. Recommend you increase your Bumex to 2 mg daily for the next 3 days. At the end of that time you should have a chest x-ra y and BMP done at the skilled nursing. Coding Level of Care Code ED Row Boss Hoeing for John Jade
[2023-05-09 12:50] LABS: Basophils # 0.1 10^3/uL (0.0-0.1); Basophils % 0.6 %; Eosinophils % 0.3 %; Hematocrit 30.5 % (42.0-52.0); Hemoglobin 8.8 g/dL (11.7-16.6); Lymphocytes # 1.6 10^3/uL (0.8-4.8); Lymphocytes % 12.8 %; Mean Corpuscular HGB Conc 28.9 g/dL (30.0-36.0); Mean Corpuscular Hemoglobin 15.5 pg (28.0-34.0); Mean Corpuscular Volume 53.6 fl (80-94); Mean Platelet Volume 9.1 fL (7.4-10.4); Monocytes # 1.1 10^3/uL (0.2-0.9); Monocytes % 8.7 %; Neutrophils # 9.71 10^3/uL (1.8-7.7); Nucleated Red Blood Cells # 0.1 /100WBC; Nucleated Red Blood Cells % 0.7 %; Platelet Count 453 10^3/cmm (130-400); Red Blood Count 5.69 10^6/uL (4.1-5.3); White Blood Count 12.6 10^3/uL (4.0-10.0)
[2023-05-09] MEDS: bumetanide 0.25 mg/mL SDV 10 mL 2 MG IVP (12:55)
[2023-05-09 13:18] LABS: Alanine Aminotransferase 46 U/L (0-41); Alkaline Phosphatase 89 U/L (40-130); Anion Gap 15.5 (5-19); Aspartate Amino Transferase 66 U/L (0-40); Blood Urea Nitrogen 30 mg/dL (8-23); Calcium 9.1 mg/dL (8.5-10.5); Carbon Dioxide 28 mmol/L (22-29); Chloride 98 mmol/L (98-107); Globulin 3.7 g/dL (1.3-4.6); Glomerular Filtration Rate 66.4 mL/min (90-130); Glucose 69 mg/dL (65-115); NT Pro B Type Natriuretic Pept 3750 pg/mL (0-125); Osmolality Calculated 289 mOsm/kg (285-295); Potassium 4.5 mmol/L (3.5-5.1); Sodium 137 mmol/L (136-145); Total Protein 6.7 g/dL (6.6-8.7)
[2023-05-09 14:36] LABS: Add Urine Microscopic? NO; Charge for UA Resulting for Rev
[2023-05-09 14:44] LABS: Bilirubin Urine Neg (Negative); Blood Urine Neg (Negative); Glucose Urine UA Norm (Normal); Ketones Urine Negative (Negative); Leukocyte Esterase Urine Negative (Negative); Nitrate Urine Negative (Negative); Protein Urine Neg (Negative); Urine Appearance Clear (CLEAR); Urine Color Yellow (Yellow); Urobilinogen Urine Norm (Negative); pH Urine 7 (5-7)
[2023-05-09 16:08] VITALS: BP 113/76; PULSE 96; O2SAT 94
== END 2023-05-09 16:24 | disposition home or self-care (01) ==
PROVIDERS: Emergency Provider Family Medicine; PCP Nurse Practitioner Family
DX: I11.0 Hypertensive heart disease with heart failure (principal); I50.9 Heart failure, unspecified; Z79.82 Long term (current) use of aspirin; Z79.4 Long term (current) use of insulin; Z79.01 Long term (current) use of anticoagulants; Z86.73 Personal history of transient ischemic attack (TIA), and cerebral infarction without residual deficits; F03.90 Unspecified dementia, unspecified severity, without behavioral disturbance, psychotic disturbance, mood disturbance, and anxiety; E11.9 Type 2 diabetes mellitus without complications; E78.5 Hyperlipidemia, unspecified; Z87.891 Personal history of nicotine dependence
CPT/HCPCS: 71045; 80053; 81003; 83880; 85025; 93005; 96374; 99285; J3490